=== PATIENT | male | born 1965 | race Caucasian/White ===

== ENCOUNTER 2024-05-25 09:52 | Emergency (ER) | payer BC, SELFPAY ==
[2024-05-25 09:54] VITALS: BP 99/67; PULSE 103; RESP 16; TEMP 36.8; O2SAT 98; BMI 36.4
--- NOTE | 2024-05-25 10:34 | RAD_ITS ---
STUDY: X-RAY - LEFT TIBIA AND FIBULA REASON FOR EXAM: Male, 58 years old. Pain TECHNIQUE: 4 view(s) of the tibia and fibula were obtained. COMPARISON: None. FINDINGS: Normal visualized tibia. Normal visualized fibula. Joint effusion The soft tissue structures are unremarkable. RAD/Tibia & Fibula 2 Views IMPRESSION: Joint effusion. Electronically Signed: Edu Mei MD at 11:55 EDT ,
--- NOTE | 2024-05-25 10:34 | RAD_ITS ---
STUDY: X-RAY - PELVIS AND LEFT HIP REASON FOR EXAM: Male, 58 years old. Left hip pain. TECHNIQUE: views of the pelvis and hip. COMPARISON: None. FINDINGS: There is a non-specific bowel gas pattern. Prostatic calcifications. There is narrowing with cortical sclerosis and osteophyte formation of the sacroiliac joint consistent with degenerative osteoarthritic changes. Normal bilateral superior and inferior pubic rami. Normal pubic symphysis. Normal bilateral ischial tuberosities. Normal visualized femoral head. There is osteoarthritic spur formation of the acetabular rim. There is moderate articular joint space narrowing of the hip. I suspect left femoral acetabular impingement. 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 Electronically Signed: dEu Mei MD at 12:00 EDT ,
--- NOTE | 2024-05-25 10:34 | EKG12_ITS ---
Test Reason : LOWER LEG PAIN Blood Pressure : / mmHG Vent. Rate : 099 BPM Atrial Rate : 099 BPM P-R Int : 220 ms QRS Dur : 088 ms QT Int : 348 ms P-R-T Axes : 081 -24 049 degrees QTc Int : 446 ms Sinus rhythm with 1st degree A-V block Possible Anterior infarct , age undetermined Abnormal ECG Confirmed by KAYLA FIGUEROA, JEREMY ([id number]), movie editor CORRINE KHALIL ([id number]) on 05/27/2024 10:22:59 AM Referred By: Confirmed By:DARREN GARZA MD
--- NOTE | 2024-05-25 10:48 | EX.ED.DYSGE1 ---
HPI History of Present Illness Chief Complaint: Lower Extremity Injury Narrative Narrative: Patient is a 58-year-old male with past medical history of type 2 diabetes, atrial fibrillation on Eliquis, hypertension, non-Hodgkin's lymphoma approximately 3 years ago, chronic kidney disease who presented to the emerged part with chief complaint of left knee pain. Patient states that he was originally in [place] admitted to the hospital for which she had a right great toe infection that was treated with IV antibiotics and underwent incision and drainage by podiatry up there. He was also complaining of left knee pain at that point in time he had fluid removed x 2 while in the hospital and cultures were sent no evidence of septic arthritis was noted based on discharge paperwork after my review. Patient states that he was supposed to get a steroid injection coming up in the near future into the left knee for pain control. He states that yesterday he went to work and noted that he came home he states that he did fall yesterday and noted that he had more pain in his left knee. He states that he tried to get up and ambulate out of his chair today states that his knee was extremely painful him therefore he called EMS to have him brought here for further evaluation management. Patient states that he did not hit his head did not pass out did not lose consciousness he remembers the entire event. [facility] Medical History History of kidney stones Kidney disease Diabetes Afib Non-Hodgkin lymphoma Allergy/AdvReac Type Severity Reaction Status Date / Time clarithromycin (From Biaxin) Allergy Severe Swelling Verified 05/25/24 10:51 Sulfa (Sulfonamide Allergy Intermediate Hives Verified 05/25/24 10:51 Antibiotics) monosodium glutamate (msg) AdvReac Intermediate Abd Verified 05/25/24 10:51 cramps/diarrhea clindamycin AdvReac Diarrhea Verified 05/25/24 10:51 Surgical History (Updated 05/25/24 @ 10:18 by Zuly Berry) Hx of nephrostomy History of tonsillectomy and adenoidectomy History of appendectomy Social History Smoking Status: Former smoker ROS ROS ED ROS Narrative Constitutional: Denies fevers, chills, headaches, lightheadedness, dizziness Eyes: Denies change in vision double vision blurry vision Cardiovascular: Denies chest pain or palpitations Respiratory: Denies cough or wheezing shortness of breath Abdomen: Denies abdominal pain nausea vomit diarrhea : Complains of painful urination, hematuria polyuria Neurological: Denies any new numbness weakness, tingling Musculoskeletal: Complains of left knee pain as noted above Skin: Denies rashes or lesions EXAM Physical Exam Narrative Exam Narrative: General: Patient was lying in bed rest comfortably did not appear to be in acute distress Head: Atraumatic, normocephalic Eyes: PERRL bilaterally, EOMI bilaterally, no conjunctival injection noted Neck: Soft, supple, trachea midline Cardiovascular: Regular rate and rhythm no murmurs gallops rubs noted Respiratory: Clear to auscultation bilaterally no rales rhonchi wheeze noted Abdomen: Soft, nondistended, no tenderness palpation, bowel sounds present x 4 Musculoskeletal: Patient has tenderness palpation over the left knee and pain with attempted range of motion. No overlying or surrounding erythema associated with this knee pain. Patient did have a Band-Aid on the lateral aspect of his left knee which was removed and no concern for active purulent drainage no surrounding erythema no concern for infection Extremities: Radial pulses +2/4 in the bilateral per extremities, no pedal edema neuroexam Neurological: Patient is following commands knew that he is at [facility] there is 2023 Skin: Warm, dry Const Vital Signs: 05/25/24 09:54 05/25/24 11:53 05/25/24 13:00 Temperature 98.2 F Temperature Source Oral Pulse Rate 103 H 102 H 84 Respiratory Rate 16 17 16 Blood Pressure 99/67 121/80 H 99/67 Blood Pressure Mean 77 93 77 Pulse Ox 98 97 98 Oxygen Delivery Method Room Air Room Air [facility] Narrative Medical decision making narrative: Patient is a 58-year-old male who presented to the emerged part with chief complaint of left knee pain. Patient will do workup performed here on the differential diagnosis includes going to osteoarthritis, distal femur fracture, proximal tibial plateau fracture, hip fracture. Once workup is obtained reviewed he will be reevaluated. Patient given IV fluids, morphine and Zofran. Patient's CBC reviewed and showed a white blood count of 11,000, hemoglobin was 11.6, platelet count normal at 185. Patient sodium noted be normal 132, potassium was 4.7, creatinine was elevated 2.53 do believe the patient does have underlying chronic kidney disease, urinalysis did not reveal any evidence of infection. Patient's x-ray of his knee reviewed and showed a moderate size joint effusion. Patient's tib/fibula showed normal visualized tibia. Normal visualized fibula no acute fractures. Patient's x-ray of his hip and pelvis showed moderate degree of osteoarthrosis of the left hip joint with findings suggestive of left femoral acetabular impingement syndrome. Patient's EKG reviewed shows sinus rhythm with a rate of 99 bpm Reevaluation of the patient and he is still having significant pain will be given another dose of morphine. On reevaluation of the patient patient was attempted to ambulate however he states that he has significant pain and cannot bend his knee nor can he get up and ambulate. At this point in time we do not have orthopedics here on-call today therefore we will look to transfer the patient to [facility] for inability ambulate, left knee pain and joint effusion while on Eliquis. Patient is anticoagulated therefore will not perform arthrocentesis here in the emergency department. Did discuss case with hospitalist Dr. Hassan who will accept patient to [facility] in [facility] for further evaluation management. Patient was notified and agreeable with this plan all question concerns answered he will be transferred in stable condition. Lab Data Labs: Laboratory Results - last 24 hr 05/25/24 10:55 WBC 11.6 H RBC 4.59 L Hgb 11.6 L Hct 37.0 L MCV 80.6 MCH 25.3 L MCHC 31.4 L RDW Std Deviation 43.7 RDW Coeff of Santosh 14.8 H Plt Count 185 MPV 11.0 Immature Gran % (Auto) 1.000 H Neut % (Auto) 79.8 H Lymph % (Auto) 11.7 L [place] % (Auto) 5.5 Eos % (Auto) 1.6 Baso % (Auto) 0.4 Absolute Neuts (auto) 9.2 H Absolute Lymphs (auto) 1.35 Nucleated RBC % 0 Sodium 132 L Potassium 4.7 Chloride 98 Carbon Dioxide 28.0 Anion Gap 6 BUN 68 H Creatinine 2.53 H Estim Creat Clear Calc 42.40 Est GFR (MDRD) Af Amer 34 L Est GFR (MDRD) Non-Af 28 L BUN/Creatinine Ratio 26.9 H Glucose 254 H Calcium 9.3 Urine Color Straw Urine Clarity Cloudy Urine pH 7.0 Ur Specific [place] 1.005 Urine Protein 30 H Urine Glucose (UA) 1000 H Urine Ketones Negative Urine Occult Blood 150 H Urine Nitrite Negative Urine Bilirubin Negative Urine Urobilinogen Normal Ur Leukocyte Esterase 500 H Urine RBC 0 SEEN Urine WBC >100 SEEN Ur Squamous Epith Cells 0 SEEN Urine Bacteria 0 SEEN Urine Mucus 0 SEEN Radiography Diagnostic Testing: Clinical Impression(s) from Imaging Studies Hip/Pelvis X-Ray 05/25/24 10:34 IMPRESSION: Moderate degree of osteoarthritis of the left hip joint with findings suggestive of a left femoral acetabular impingement. Electronically Signed: Edu Mei MD at 12:00 EDT , Tibia/Fibula X-Ray 05/25/24 10:34 IMPRESSION: Joint effusion. Electronically Signed: Edu Mei MD at 11:55 EDT , Knee X-Ray 05/25/24 11:26 IMPRESSION: Moderate-sized joint effusion. Electronically Signed: Edu Mei MD at 11:53 EDT , Discharge Plan Triage Chief Complaint: Lower Extremity Injury ED Provider: Van Thompson Dx/Rx/DC Orders Clinical Impression: Acute pain of left knee, Joint effusion of knee, Intractable pain Primary Care Provider: Miriam Jones Referrals: Miriam Jones DO [Primary Care Provider] - Print Language: French Disposition Disposition: DC/Tx to Another Type of HCF
[2024-05-25] MEDS: 0.9% Normal Saline (1000mL) 1,000 ML 999 ML IV (10:51)
[2024-05-25] MEDS: Ondansetron 4 MG/2 ML Vial IV (10:52)
[2024-05-25] MEDS: Morphine 4 MG/ML Syringe IV (10:53)
--- NOTE | 2024-05-25 10:53 | NURSING ---
NO OLD EKGS
[2024-05-25 11:12] LABS: Bacteria 0 SEEN /hpf (None Seen); Mucous, Urine 0 SEEN /hpf (<or=2+); Red Blood Cells-Urine 0 SEEN /hpf (0-5); Squamous Epithelial Cells - UA 0 SEEN /hpf (0-5)
[2024-05-25 11:13] LABS: Absolute Lymphocyte Count 1.35 X10^3/uL (0.83-4.51); Absolute Neutrophil Count 9.2 X10^3/uL (2.0-7.7); Basophil# 0.05 X10^3/uL; Basophil% 0.4 % (0-1); Eosinophil# 0.19 X10^3/uL; Eosinophils% 1.6 % (0-5); Hemoglobin 11.6 g/dL (13.0-16.5); Lymphocyte # 1.35 X10^3/ul (0.83-4.51); Lymphocyte % 11.7 % (19-41); Mean Corp Hgb Conc 31.4 g/dL (32-36); Mean Corpuscular Hgb 25.3 pg (27.0-32.0); Mean Corpuscular Volume 80.6 fL (80-94); Monocyte# 0.64 X10^3/uL; Monocyte% 5.5 % (0-10); NRBC Flagged by Analyzer 0 % (0-5); Neutrophil # 9.23 X10^3/uL (2.7-7.7); Neutrophil % 79.8 % (47-70); Platelet Count 185 K/mm3 (150-450); RBC Distribution Width CV 14.8 % (11.6-14.6); RBC Distribution Width SD 43.7 fl (35.1-43.9); Red Blood Count 4.59 M/mm3 (4.6-6.2); White Blood Count 11.6 K/mm3 (4.4-11.0)
[2024-05-25 11:15] LABS: Color, Urine Straw (Yellow); Glucose, Dipstick 1000 mg/dl (Normal); Ketone-Dipstick Negative (Negative); Leukocyte Esterase-Dipstick 500 /ul (Negative); Nitrite-Dipstick Negative (Negative); Occult Blood-Urine 150 /ul (Negative); Protein-Dipstick 30 mg/dl (Negative); Specific Gravity, Urine 1.005 (1.002-1.030); Urine Bilirubin Dipstick Negative (Negative); Urine Clarity Cloudy (Clear); Urine Urobilinogen Normal (Normal)
[2024-05-25 11:22] LABS: White Blood Cells >100 SEEN /hpf (0-5)
--- NOTE | 2024-05-25 11:26 | RAD_ITS ---
STUDY: X-RAY - LEFT KNEE REASON FOR EXAM: Male, 58 years old. Left lower extremity pain. No known injury. TECHNIQUE: 4 view(s) of the knee. COMPARISON: None. FINDINGS: Normal visualized distal femur. Normal visualized proximal tibia and fibula. Normal proximal tibiofibular articulation. Normal medial femorotibial compartment. Normal lateral femorotibial compartment. Normal patellofemoral articulation. Moderate size joint effusion. RAD/Knee 3 Views IMPRESSION: Moderate-sized joint effusion. Electronically Signed: Edu Mei MD at 11:53 EDT ,
[2024-05-25 11:34] LABS: Anion Gap 6 (5-15); BUN 68 mg/dL (7-18); BUN/Creat Ratio 26.9 RATIO (10-20); Calcium,Total 9.3 mg/dL (8.5-10.1); Chloride 98 mmol/L (98-107); Creatinine, Serum 2.53 mg/dL (0.70-1.30); EST Glomerular Filtration Rate 28 mL/min (>60); Est Glom Filt Rate - Afr Amer 34 mL/min (>60); Glucose 254 mg/dL (74-106); Potassium 4.7 mmol/L (3.5-5.1); Sodium Level 132 mmol/L (136-145)
[2024-05-25 11:53] VITALS: BP 121/80; PULSE 102; RESP 17; O2SAT 97
[2024-05-25 13:00] VITALS: BP 99/67; PULSE 84; RESP 16; O2SAT 98
--- NOTE | 2024-05-25 13:39 | NURSING ---
ACCEPTED AT [facility]
--- NOTE | 2024-05-25 13:52 | NURSING ---
[facility] 4S ROOM 408 BED 1 NURSE TO NURSE [id number]
[2024-05-25 14:31] VITALS: BP 92/67; PULSE 88; RESP 16; TEMP 36.8; O2SAT 98
--- NOTE | 2024-05-25 14:47 | NURSING ---
ETA 4 MIN
== END 2024-05-25 15:11 | disposition other institution (70) ==
PROVIDERS: Emergency Provider Emergency Medicine; PCP Family Medicine; Visit Provider Emergency Medicine
DX: M25.562 Pain in left knee (principal); E11.22 Type 2 diabetes mellitus with diabetic chronic kidney disease; N18.9 Chronic kidney disease, unspecified; M25.462 Effusion, left knee; Z87.891 Personal history of nicotine dependence
CPT/HCPCS: 36591; 73502; 73562; 73590; 80048; 81001; 85025; 93005; 96361; 96374; 96375; 96376; 99283; J7030; A4216; J2405

== ENCOUNTER 2025-06-02 14:12 | Emergency (ER) | payer BC, SELFPAY ==
[2025-06-02 14:13] VITALS: BP 102/77; PULSE 88; RESP 18; TEMP 36.8; O2SAT 99
--- NOTE | 2025-06-02 14:50 | EKG12_ITS ---
Test Reason : CP Blood Pressure : */* mmHG Vent. Rate : 86 BPM Atrial Rate : 86 BPM P-R Int : 200 ms QRS Dur : 84 ms QT Int : 360 ms P-R-T Axes : 57 -23 62 degrees QTcB Int : 430 ms Normal sinus rhythm Normal ECG Confirmed by FRANCISCO J FIGUEROA, BILL ([id number]), video editor CORRINE KHALIL ([id number]) on 06/05/2025 1:05:19 PM Referred By: KASSI/ADONIS Confirmed By: BILL MARX MD
[2025-06-02 15:03] VITALS: BP 101/65; PULSE 86; RESP 17; O2SAT 99; BMI 31.6
[2025-06-02] MEDS: 0.9% Normal Saline (1000mL) 1,000 ML 999 ML IV (15:03)
[2025-06-02 15:04] LABS: Hematocrit 38.3 % (40-54); Hemoglobin 12.6 g/dL (13.0-16.5); Immature Granulocytes Count 0.030 X10^3/uL (0.0-0.0); Mean Corp Hgb Conc 32.9 g/dL (32-36); Mean Corpuscular Volume 81.0 fL (80-94); NRBC Flagged by Analyzer 0 % (0-5); POSITIVE COUNT YES; RBC Distribution Width CV 13.3 % (11.6-14.6); RBC Distribution Width SD 38.8 fl (35.1-43.9); Red Blood Count 4.73 M/mm3 (4.6-6.2); White Blood Count 4.8 K/mm3 (4.4-11.0)
--- NOTE | 2025-06-02 15:17 | RAD_ITS ---
PROCEDURE: CHEST 1 VIEW (PORTABLE) 06/02/2025 REASON FOR EXAM: CHEST PAIN and weakness. TECHNIQUE: Frontal view of the chest. COMPARISON: None. FINDINGS: LINES: Right chest port tip terminating in the distal SVC. LUNGS AND PLEURA: No focal airspace consolidation. Minimal linear basilar atelectasis/scarring bilaterally. No pleural effusion or pneumothorax. HEART AND MEDIASTINUM: The heart size and mediastinal contours are normal. BONES: No acute osseous abnormality. RAD/Chest 1 View (Portable) IMPRESSION: No Acute Findings. Reading Location: [id number]
[2025-06-02 15:21] LABS: Differential Indicated SCAN CRITERIA MET
[2025-06-02 15:27] LABS: Anion Gap 12 (5-15); BUN 44 mg/dL (4-19); BUN/Creat Ratio 28.1 RATIO (10-20); Calcium,Total 9.0 mg/dL (7.6-11.0); Carbon Dioxide 21.3 mmol/L (21.0-32.0); Chloride 99 mmol/L (98-108); Estimated Creatinine Clearance 63.33 ml/min (50-250); Glucose 377 mg/dL (70-99); Potassium 4.1 mmol/L (3.3-5.1); Troponin T High Sensitivity 36 ng/L (<=22)
[2025-06-02 16:00] VITALS: BP 99/69; PULSE 81; RESP 15; O2SAT 97
[2025-06-02 16:12] LABS: Platelet Count 87 K/mm3 (150-450)
[2025-06-02 16:13] LABS: Differential Comment SCANNED; Mean Platelet Vol. 11.0 fl (6.2-12.0)
[2025-06-02 16:55] LABS: Troponin T High Sens 2 HR 36 ng/L (<=22)
[2025-06-02 17:00] VITALS: BP 108/69; PULSE 82; RESP 14; O2SAT 98
--- NOTE | 2025-06-02 17:07 | EDS_ITS ---
HPI History of Present Illness Chief Complaint: Chest Pain Informant: patient Onset/Context/Timing Onset: Today Activity at onset: gradual Timing: Continuous Quality: Positive for Dull Location: Substernal Current Severity: Mild Maximum Severity: Mild Worsened By: Nothing Relieved By: Nothing Associated Symptoms: Positive for - (Diarrhea.); Negative for Nausea, Vomiting, Diaphoresis, Dyspnea, Cough, Fever, Lightheadedness, Acid Reflux or Palpitations Narrative Narrative: 59-year-old male history of diabetes, A-fib, prior non-Hodgkin's lymphoma with a right-sided Mediport. He is finished with his chemotherapy. He is on Eliquis due to his A-fib. Patient states he just has been feeling that good he has been having diarrhea. He has had elevated blood sugars and today noticed some chest discomfort not associated with exertion. Denies any melena. No fever. No vomiting. Prior Similar Symptoms: No Recent Illness/Hospitalization: No CVD Risk Factors: Positive for Diabetes PE Risk Factors: Negative for Recent Travel/Surgery, Recent Immobilization, Prior DVT or PE, Cancer or OCP + Smoking + >/=35 TAD Risk Factors: Negative for Marfan's Syndrome PFSH PFS Medical History History of kidney stones Kidney disease Diabetes Afib Non-Hodgkin lymphoma Allergy/AdvReac Type Severity Reaction Status Date / Time clarithromycin (From Biaxin) Allergy Severe Swelling Verified 06/02/25 14:15 Sulfa (Sulfonamide Allergy Intermediate Hives Verified 06/02/25 14:15 Antibiotics) monosodium glutamate (msg) AdvReac Intermediate Abd Verified 06/02/25 14:15 cramps/diarrhea clindamycin AdvReac Diarrhea Verified 06/02/25 14:15 Surgical History Hx of nephrostomy History of tonsillectomy and adenoidectomy History of appendectomy Social History Smoking Status: Former smoker ROS ROS ED ROS Narrative Diarrhea. Nonexertional chest pain. Constitutional Constitutional ED: Denies chills or fever(s) Eyes Eyes: Reports none ENT ENT ED: Denies ear pain Cardiovascular Cardiovascular: Reports chest pain Respiratory/Chest Respiratory/Chest: Denies cough or dyspnea Gastrointestinal Gastrointestinal: Reports diarrhea; Denies abdominal pain, melena, nausea or vomiting Genitourinary Genitourinary ED: Denies dysuria or hematuria Musculoskeletal Musculoskeletal: Denies arthralgias or back pain Integumentary Denies abscess or Abrasions Neurologic Neurologic: Denies headache(s) Psychiatric Psychiatric: Denies anxiety Endocrine Endocrinology: Denies cold intolerance Hematologic/Lymphatic Hematologic/Lymphatic: Denies easy bleeding, easy bruising or lymphadenopathy Allergic/Immunologic Allergic/Immunologic ED: Denies mouth swelling, tongue swelling or urticaria EXAM Physical Exam Narrative Exam Narrative: 59-year-old male sitting upright in bed. No acute distress. Vital signs are s table afebrile. Pulse ox 99% on room air no signs hypoxia. H EENT exam pupils round react light. Moist mucous membranes. Neck nontender no JVD. No lymphadenopathy. Lungs clear to auscultation bilaterally. Heart regular rhythm rate in the mid 80s no murmur. Chest wall and ribs nontender. Abdomen soft nontender. No peritoneal signs. Moving all 4 extremities. Calves are nontender without edema or cords. Normal dorsi plantarflexion. 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 Back nontender. Neurologically patient is awake alert. Answer questions following commands. Const Vital Signs: 06/02/25 14:13 06/02/25 15:03 06/02/25 15:04 Temperature 98.2 F Temperature Source Oral Pulse Rate 88 86 Respiratory Rate 18 17 Respiratory Effort Normal Non-Labored Blood Pressure 102/77 101/65 Blood Pressure Mean 85 77 Pulse Ox 99 99 Oxygen Delivery Method Room Air Room Air 06/02/25 16:00 Temperature Temperature Source Pulse Rate 81 Respiratory Rate 15 Respiratory Effort Blood Pressure 99/69 Blood Pressure Mean 79 Pulse Ox 97 Oxygen Delivery Method Room Air Positive well nourished and well developed; Negative for cachectic, contractures or unkempt General Appearance ED: well developed and NAD; Negative for unkempt, cachectic, contractures or pallor Nutritional Appearance: Negative for cachectic HEENT Reports moist mucous membranes normocephalic and atraumatic Eyes PERRL and EOMs intact bilaterally Neck no lymphadenopathy, supple and no JVD Chest Wall inspection of chest normal and palpation of chest normal Resp normal respiratory effort and clear to auscultation bilaterally Cardio regular rate, regular rhythm, S1 normal heart sound, S2 normal heart sound and no murmurs Peripheral Pulses: pulses 2+ throughout GI normal to inspection, nondistended, normoactive bowel sounds, soft to palpation, non-tender, non-distended and no masses Back/Spine no CVA tenderness and no thoracic nor lumbar tenderness Extremity normal to inspection General Extremety ED: Negative for edema, pulses abnormal or tenderness General Extremity: Negative for edema or pulses abnormal Neuro oriented x3 and CN's II-XII intact bilaterally Sensorium / Orientation: awake, alert, oriented to person, oriented to place and oriented to time; Negative for confused, lethargic or stuporous Motor Exam: strength 5/5 throughout Psych mental status grossly normal Appearance: Negative for unkempt Skin no rashes or lesions noted and no wounds General Skin Exam: Negative for jaundice or pallor Rashes: No rashes noted Trauma: Negative for abrasion or laceration Heart Score History: Slightly/Non-Suspicious ECG: Normal Age: >45 - <65 years Risk Factors: 1 or 2 Risk Factors Troponin: </= Normal Limit Score: 2 MDM MDM MDM Narrative Medical decision making narrative: 59-year-old diabetic male history of A-fib and on Eliquis. With atypical chest pain and recent diarrhea. Exam is benign. I do not have a high suspicion. Cardiac. Undergoing cardiac workup. Repeat exam patient is doing well at 5:20 PM. I went over all test results of both he and his family. He and they are comfortable with him being discharged home. Outpatient follow-up with his primary care physician Dr. Schwartz. He will continue his current meds. I will write him off work this weekend. Knows to return if he is feeling worse. History & Record Review Discussion w/independent historian: Patient and Family Additional record(s) reviewed:: Prior inpatient record, Prior outpatient record, Prior ED visit and Prior labs Lab Data Attestation: I reviewed the patient's lab results. Lab results narrative: CBC shows a white count of 4. H&H 12.6 and 38. Platelets are low at 87. Electrolytes show sodium 132. Gap 12. BUN/creatinine of 44 and 1.56. Glucose 377. Initial troponin 36. 2-hour troponin 36. Labs: Laboratory Results - last 24 hr 06/02/25 06/02/25 14:18 16:30 WBC 4.8 RBC 4.73 Hgb 12.6 L Hct 38.3 L MCV 81.0 MCH 26.6 L MCHC 32.9 RDW Std Deviation 38.8 RDW Coeff of Santosh 13.3 Plt Count 87 L MPV 11.0 Immature Gran % (Auto) 0.600 Neut % (Auto) 67.9 Lymph % (Auto) 16.8 L [place] % (Auto) 9.9 Eos % (Auto) 4.2 Baso % (Auto) 0.6 Absolute Neuts (auto) 3.2 Absolute Lymphs (auto) 0.80 L Nucleated RBC % 0 Differential Comment SCANNED Sodium 132 L Potassium 4.1 Chloride 99 Carbon Dioxide 21.3 Anion Gap 12 BUN 44 H Creatinine 1.56 H Estim Creat Clear Calc 63.33 Est GFR (MDRD) Non-Af 51 L BUN/Creatinine Ratio 28.1 H Glucose 377 H Calcium 9.0 Troponin T High Sens 36 H Troponin T Hi Sens 2 Hr 36 H Radiography Chest X-Ray - ED: Read by ED Physician, Read by Radiologist, Normal, Heart, Lungs, Mediastinum, Bony Structures, No Acute Disease and Chronic Changes Diagnostic Testing: Clinical Impression(s) from Imaging Studies Chest X-Ray 06/02/25 15:17 IMPRESSION: No Acute Findings. Reading Location: [facility] Chest x-ray portable, single view, interpreted both by myself and the radiologist shows normal cardiac silhouette. Normal lung patiño. Chronic changes. Right-sided Mediport. No significant acute process. Rhythm Strip Rhythm Strip: Sinus Rhythm Rate: 86 Ectopy: None EKG Initial EKG: Attestation: I personally reviewed and interpreted this EKG as follows: Interpretation: Sinus Rhythm and No Acute Injury Pattern Comments: Normal sinus rhythm rate 86 no acute signs of [place] or ischemia. Discharge Plan Triage Chief Complaint: Chest Pain ED Provider: Len Aquino Dx/Rx/DC Orders Clinical Impression: Atypical chest pain, Hyperglycemia due to diabetes mellitus, Diarrhea, History of atrial fibrillation, Chronic anticoagulation Instructions: ED Chest Pain, Uncertain Cause, ED Diabetic Hyperglycemia Primary Care Provider: Miriam Jones Referrals: Miriam Jones, [Primary Care Provider] - As soon as possible (Call our office on Thursday get an appointment next week.) Activity Restrictions/Additional Instructions: Watch your blood sugars closely. Take your medications as prescribed. Call and follow-up your primary care physician on Thursday. Return if feeling worse. Off work today through Thursday inclusive. Print Language: [place] Disposition Disposition: Home, Self Care
[2025-06-02 17:43] VITALS: BP 108/67; PULSE 78; RESP 16; TEMP 36.9; O2SAT 99
== END 2025-06-02 17:44 | disposition home or self-care (01) ==
PROVIDERS: Emergency Provider Emergency Medicine; PCP Family Medicine; Visit Provider Emergency Medicine
DX: R07.89 Other chest pain (principal); I48.91 Unspecified atrial fibrillation; E11.65 Type 2 diabetes mellitus with hyperglycemia; Z95.828 Presence of other vascular implants and grafts; Z79.01 Long term (current) use of anticoagulants; Z87.891 Personal history of nicotine dependence; R19.7 Diarrhea, unspecified
CPT/HCPCS: 36591; 71045; 80048; 84484; 85025; 93005; 96360; 99283; A4216

== ENCOUNTER 2025-06-04 15:07 | Emergency (ER) | payer BC, SELFPAY ==
[2025-06-04 15:07] VITALS: BP 87/70; PULSE 96; RESP 18; TEMP 37.2; O2SAT 100; BMI 36.8
[2025-06-04 15:10] VITALS: BP 110/75; PULSE 84; RESP 18; TEMP 36.6; O2SAT 100
--- NOTE | 2025-06-04 15:25 | EX.ED.DYSGE1 ---
HPI History of Present Illness Chief Complaint: Complaint Informant: patient Onset/Context/Timing Onset: Today Context: Sudden Onset Timing: Continuous Quality: Red blood Location: Urine Worsened by: Nothing Relieved by: Nothing Narrative Narrative: Patient presents with hematuria that began this morning. Patient states that he has had episodes of hematuria in the past. Patient states that usually clears up throughout the day. Patient states this has been persistent throughout the day. Patient admits to some dysuria as well. Patient denies any fevers or chills. Patient admits to some pain in his neck but denies any back pain or flank pain. Patient denies any nausea or vomiting. Patient states his blood sugars have been fluctuating over the past several days. [facility] Medical History (Updated 06/04/25 @ 18:[address] All White DO) History of kidney stones Kidney disease Diabetes Afib Non-Hodgkin lymphoma Allergy/AdvReac Type Severity Reaction Status Date / Time clarithromycin (From Biaxin) Allergy Severe Swelling Verified 06/04/25 15:10 Sulfa (Sulfonamide Allergy Intermediate Hives Verified 06/04/25 15:10 Antibiotics) monosodium glutamate (msg) AdvReac Intermediate Abd Verified 06/04/25 15:10 cramps/diarrhea clindamycin AdvReac Diarrhea Verified 06/04/25 15:10 Surgical History (Updated 06/04/25 @ 16:[address] All White DO) Hx of knee surgery History of amputation of toe Hx of sinus surgery History of carpal tunnel surgery Hx of nephrostomy History of tonsillectomy and adenoidectomy History of appendectomy Social History Smoking Status: Former smoker ROS ROS ED Constitutional Constitutional ED: Denies chills or fever(s) Eyes Eyes: Denies blurry vision or change in vision ENT ENT ED: Denies rhinorrhea or sore throat Cardiovascular Cardiovascular: Denies chest pain or palpitations Respiratory/Chest Respiratory/Chest: Denies cough or dyspnea Gastrointestinal Gastrointestinal: Denies nausea or vomiting Genitourinary Genitourinary ED: Reports dysuria and hematuria Musculoskeletal Musculoskeletal: Reports neck pain; Denies back pain Integumentary Denies abscess or rash Neurologic Neurologic: Reports headache(s) and weakness Allergic/Immunologic Allergic/Immunologic ED: Denies mouth swelling or urticaria EXAM Physical Exam Const Vital Signs: 06/04/25 15:07 06/04/25 15:10 06/04/25 16:10 Temperature 98.9 F 98 F 98 F Temperature Source Oral Oral Oral Pulse Rate 96 84 83 Respiratory Rate 18 18 18 Blood Pressure 87/70 L 110/75 107/73 Blood Pressure Mean 75 86 84 Pulse Ox 100 100 99 Oxygen Delivery Method Room Air Room Air Room Air 06/04/25 17:00 Temperature 98 F Temperature Source Oral Pulse Rate 80 Respiratory Rate 15 Blood Pressure 110/78 Blood Pressure Mean 88 Pulse Ox 97 Oxygen Delivery Method Room Air Positive well nourished and well developed General Appearance ED: well developed and NAD HEENT Reports moist mucous membranes Neck supple and no JVD Resp normal respiratory effort and clear to auscultation bilaterally Cardio regular rate and regular rhythm GI non-distended Palpation: soft and tender suprapubic; Negative for guarding or rebound tenderness present Neuro oriented x3, CN's II-XII intact bilaterally and no sensory deficits noted Sensorium / Orientation: alert Motor Exam: strength 5/5 throughout Psych mental status grossly normal MDM MDM MDM Narrative Medical decision making narrative: Differential diagnosis includes hemorrhagic cystitis, coagulopathy, ureteral calculus, bladder mass, renal mass, anemia, and electrolyte abnormality. CBC will be obtained to assess for anemia and leukocytosis. Basic metabolic profile will be obtained to assess for electrolyte abnormality and renal function. PT with INR and PTT will be obtained to assess for coagulopathy. Urinalysis will be obtained to assess for urinary tract infection. CT scan of the abdomen and pelvis will be obtained to assess for ureteral calculus, bladder mass, and renal mass. History & Record Review Additional record(s) reviewed:: Prior ED visit and Prior labs Lab Data Attestation: I reviewed the patient's lab results. Lab results narrative: CBC was reviewed. There is a slight anemia with a hemoglobin 12.2 and hematocrit of 36.9. Platelets were low at 88. These are consistent previous results. PT with INR and PTT were reviewed and were within. Basic metabolic profile was reviewed. BUN was 49 and creatinine was 1.67. These are consistent with previous results. Glucose was mildly elevated at 289. Urinalysis was reviewed. There was turbid red urine. Occult blood was 250 and leukocyte esterase was 500. There are greater than 100 red blood cells and 25-50 white blood cells. Labs: Laboratory Results - last 24 hr 06/04/25 16:18 WBC 5.2 RBC 4.59 L Hgb 12.2 L Hct 36.9 L MCV 80.4 MCH 26.6 L MCHC 33.1 RDW Std Deviation 39.1 RDW Coeff of Santosh 13.5 Plt Count 88 L MPV 11.4 Immature Gran % (Auto) 0.400 Neut % (Auto) 60.0 Lymph % (Auto) 24.4 Richardson % (Auto) 9.8 Eos % (Auto) 5.0 Baso % (Auto) 0.4 Absolute Neuts (auto) 3.1 Absolute Lymphs (auto) 1.27 Nucleated RBC % 0 PT 14.2 INR 1.1 APTT 31.1 Sodium 136 Potassium 4.2 Chloride 103 Carbon Dioxide 21.0 Anion Gap 12 BUN 49 H Creatinine 1.67 H Estim Creat Clear Calc 63.81 Est GFR (MDRD) Non-Af 47 L BUN/Creatinine Ratio 29.2 H Glucose 289 H Calcium 8.9 Urine Color Red Urine Clarity Turbid Urine pH 5.0 Ur Specific [place] 1.015 Urine Protein 500 H Urine Glucose (UA) 250 H Urine Ketones Negative Urine Occult Blood 250 H Urine Nitrite Negative Urine Bilirubin Negative Urine Urobilinogen Normal Ur Leukocyte Esterase 500 H Urine RBC > 100 SEEN Urine WBC 25-50 SEEN Ur Squamous Epith Cells 0 SEEN Urine Bacteria 0 SEEN Urine Mucus 0 SEEN Radiography Diagnostic Testing: Clinical Impression(s) from Imaging Studies Abdomen/Pelvis CT 06/04/25 16:06 IMPRESSION: 1. Asymmetric enhancement with moderate left hydroureteronephrosis, which is indeterminate and may represent infectious etiology or urothelial neoplasm. Correlation with urinalysis recommended. Noncontrast and delayed phase imaging may be useful for further evaluation if neoplasm is considered likely. 2. Mild hepatomegaly and diffuse hepatic steatosis. Reading Location: [id number] scan of the abdomen and pelvis was obtained. There is asymmetric enhancement with moderate left hydronephrosis and hydroureter. This may represent infectious etiology or urothelial neoplasm. This was interpreted by the radiologist and was also independently reviewed by myself. Additional Tests and Interventions Additional Tests or Interventions: Urine culture was ordered. Treatment and Re-Evaluation :: Patient was given IV fluids. Patient was advised of his findings. Patient was given a dose of Cipro here. Patient was given a prescription for Cipro. Patient was instructed to drink fluids. Patient instructed to follow-up with his urologist in 3 to 5 days. Patient instructed to return if worse in any way. Patient understood and was agreeable with the plan. All questions were answered. Discharge Plan Triage Chief Complaint: Complaint ED Provider: All White Dx/Rx/DC Orders Clinical Impression: Acute hemorrhagic cystitis, Hyperglycemia due to diabetes mellitus Instructions: ED Bladder Infection, Male (Adult) Primary Care Provider: Miriam Jones Referrals: Miriam Jones DO [Primary Care Provider] - 3-5 Days Print Language: [place]ian Disposition Disposition: Home, Self Care
--- OUTSIDE RECORDS SUMMARY | 2025-06-04 15:41 | XMS RPT_ITS | CCD ---
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 Name Role Phone Najma Bloom DO Primary Care Provider Osiris Vega Unavailable Martell Waterman MD Unavailable Heather FIGUEROA MD, Cristhian Salomon Unavailable Eber Antony MD Unavailable AndiAmee david (Fel) Unavailable Omid Prabhakar MD Unavailable Amirt Del Valle MD Unavailable Wilber Maxwell MD Unavailable Yamilka Mosley MD Unavailable Najma Bloom DO Primary Care Provider Osiris Vega Unavailable Martell Waterman MD Unavailable Heather FIGUEROA MD, Matthew C Unavailable Eber Antony MD Unavailable Amee Escamilla (Fel) Unavailable Omid Prabhakar MD Unavailable Amrit Del Valle MD Unavailable Wilber Maxwell MD Unavailable Yamilka Mosley MD Unavailable Asim JUAN, Ernesto Unavailable Unavailable Asim JUAN, Ernesto Unavailable Unavailable Epi Polanco MD Unavailable Epi Polanco MD Unavailable Aki FIGUEROA, Omid Fraser Unavailable NAJMA BLOOM Primary Care [place] GLORIA Sigala Attending U navailable Sheets DO Najma C Primary Care Provider [phone] Osiris Cartwright RN Unavailable Unavailable Jigna Griffiths RPh Unavailable Unavail able Osiris Cartwright RN Unavailable Unavailable XOCHITL VIDES Referring Unavaila ALESHA Waggoner Consulting Unavailable LEO LEA Attending Unavailable SHEETS, NAJMA C Primary Care Unavailable PEYMAN CLIFFORD Admitting Unavailable Sheets, Najma Primary Care Unavailable Van Thompson Attending Unavailable Sheets DO Najma C Unavailable Solomon WAREHOUSE UNLOADER.JU, Herminio Unavailable [phone] Monie Perez RN Unavailable Osiris Cartwright RN Unavailable Osiris Cartwright RN Unavailable VARGAS BENTON Attending Unavailab le SHEETS, NAJMA C Primary Care Unavailable JENNIFER MICHELE Attending Unavailab le JENNIFER MICHELE Admitting Unavailab le SHEETS, NAJMA C Primary Care Unavailable AMRIT DEL VALLE Consulting Unavailable YAMILKA LIU Admitting Unavailable SHEETS, NAJMA C Primary Care Unavailable BIJAN AVERY Attending Unavailabl e SHEETS, NAJMA C Primary Care Unavailable OSIRIS PARIS Attending Unavailable SHEETS, NAJMA C Primary Care Unavailable CHERELLE CAMPOS Referring Unavailable JENNIFER MICHELE Attending Unavailab le SHEETS, NAJMA C Primary Care Unavailable SHEETS, NAJMA C Primary Care Unavailable JENNIFER MICHELE Attending Unavailab le SHEETS, NAJMA C Primary Care Unavailable JENNIFER MICHELE Referring Unavailab le SHEETS, NAJMA C Primary Care Unavailable AIDE MOSES Attending Unavailable VARGAS BENTON Attending Unavailab le SHEETS, NAJMA C Primary Care Unavailable SHEETS, NAJMA C Primary Care Unavailable JENNIFER MICHELE Attending Unavailab le ALI, MARTELL EMERSON Referring Unavailable SHEETS, NAJMA C Primary Care Unavailable ALI, MARTELL EMERSON Referring Unavailable SHEETS, NAJMA C Primary Care Unavailable ALI, MARTELL EMERSON Referring Unavailable SHEETS, NAJMA C Primary Care Unavailable ALI, MARTELL EMERSON Attending Unavailable SHEETS, NAJMA C Primary Care Unavailable SHEETS, NAJMA C Primary Care Unavailable ALI, MARTELL EMERSON Referring Unavailable SHEETS, NAJMA C Primary Care Unavailable Sheets DO, Dr. Pineda Primary Care Provider Dr. Len Aquino MD Emergency Provider SHEETS, NAJMA C Attending Unavailable SHEETS, NAJMA C Primary Care Unavailable SHEETS, NAJMA C Attending Unavailable SHEETS, NAJMA C Referring Unavailable SHEETS, NAJMA C Primary Care Unavailable SHEETS, NAJMA C Primary Care Unavailable HAZZI, RAMI Admitting Unavailable THUESTADRAMANA A Attending Unavailable SHEETS, NAJMA C Attending Unavailable SHEETS, NAJMA C Primary Care Unavailable SHEETS, NAJMA C Primary Care Unavailable SHEETS, NAJMA C Attending Unavailable SHEETS, NAJMA C Referring Unavailable SHEETS, NAJMA C Primary Care Unavailable SHEETS, NAJMA C Attending Unavailable SHEETS, NAJMA C Referring Unavailable SELF Referring Unavailable SHEETS, NAJMA C Primary Care Unavailable SHEETS, NAJMA C Attending Unavailable Allergies Allergy Classification Reported Allergen(s) Allergy Type Date of Onset Reaction(s) Facility Aspartame (1 source) Aspartame Drug Allergy 06-05-20 20 Intolerance [facility] Lincosamides (antibiotic) (1 source) Clindamycin Drug Allergy 07-18-20 16 Diarrhea, GI Upset, Vomiting [facility] Macrolides (antibiotic) (1 source) Clarithromycin Drug Allergy 07-18-20 16 Unknown [facility] Proton Pump Inhibitors (1 source) pantoprazole Drug Allergy 02-02-20 21 Diarrhea [facility] Sulfamethoxazole / Trimethoprim (1 source) Sulfamethoxazole / Trimethoprim Drug Allergy 07-18-20 16 Hives, Intolerance [facility] Sulfonamides (antibiotic) (1 source) Sulfonamides (Antibiotic) Drug Allergy 07-18-20 16 Rash, Hives [facility] (20 sources) Aspartame; Translations: [ASPARTAME] Drug Allergy 06-05-20 20 Other: See Comments, Intolerance [facility] (20 sources) Clarithromycin; Translations: [CLARITHROMYCIN] Drug Allergy 07-18-20 16 Unknown [facility] (20 sources) Clindamycin; Translations: [CLINDAMYCIN HCL] Drug Allergy 07-18-20 16 Diarrhea, GI Upset, Vomiting [facility] (20 sources) pantoprazole; Translations: [PANTOPRAZOLE] Drug Allergy 02-02-20 21 Diarrhea [facility] (20 sources) Sulfamethoxazole / Trimethoprim; Translations: [SULFAMETHOXAZOLE-T RIMETHOPRIM] Drug Allergy 07-18-20 16 Hives, Other: See Comments, Intolerance [facility] (20 sources) Sulfonamides (Antibiotic); Translations: [SULFA (SULFONAMIDE ANTIBIOTICS)] Drug Allergy 07-18-20 16 Rash, Hives [facility] (20 sources) Influenza Vaccine Tri-Sp 09-10; Translations: [INFLUENZA VACCINE TRI-SP 07-05] Propensity to adverse reactions to drug 10-29-19 19 Unknown [facility] (20 sources) Monosodium Glutamate (Msg); Translations: [MONOSODIUM GLUTAMATE (MSG)] Food Intolerance 06-05-20 Other: See Comments, Intolerance [facility] (3 sources) Clindamycin; Translations: [CLINDAMYCIN] Drug Allergy 12-30-19 24 Diarrhea [facility] (1 source) Clarithromycin Drug Allergy 05-25-20 [facility] (1 source) Sulfonamides (Antibiotic) Drug allergy (disorder) 05-25-20 [facility] (4 sources) monosodium glutamate; Translations: [MONOSODIUM GLUTAMATE] Drug allergy (disorder) 05-25-20 [facility] (20 sources) Glutamate Drug Allergy 05-25-20 [facility] (1 source) Sulfonamides (Antibiotic) Allergy to substance 06-02-20 [facility] Medications Current Medications Medication Drug Class(es) Dates Sig (Normalized) Sig (Original) acetaminophen 325 mg oral tablet (20 sources) Start: 05-19-2024 End: 08-17-2024 take 2 tablets by mouth every six hours as needed acetaminophen (TYLENOL) 325 mg tablet Take 2 tablets by mouth every 6 hours as needed for pain. 90 tablet 05/19/2024 08/17/2024 Active take 1000 mg by mout h three times daily acetaminophen (TYLENOL EXTRA STRENGTH OR AL) Take 1,000 mg by mouth three times daily. 0 Suspended Comment on above: Take 1,000 mg by sheila three times daily. acetaminophen 325 mg / oxyCODONE hydrochloride 5 mg oral tablet (7 sources) Opioid Agonist Start: End: take 1 tablet by mouth every six hours as needed for pain oxyCODONE-acetaminophe n (PERCOCET) 5-325 mg tablet Indications: Postoperative pain Take 1 tablet by mouth every 6 hours as needed for pain for up to 5 days. 10 tablet 07/26/2024 07/31/2024 Active Start: 06-06-2024 End: 06-13-2024 take 1 tablet by mouth every eight hours as needed for pain oxyCODONE-acetaminophen (PERCOCET) 5-325 mg tablet Indications: Osteomyelitis of right foot (HCC) , Acute pain of left knee , Acute medial meniscus tear of left knee, subsequent encounter Take 1 tablet by mouth every 8 hours as needed for pain for up to 7 days. 06/06/2024 06/13/2024 Active Start: 05-25-2024 End: 06-01-2024 take 1 tablet by mouth every six hours as needed for pain oxyCODONE-acetaminophen (PERCOCET) 5-325 mg tablet Indications: Acute pain of left knee Take 1 tablet by mouth every 6 hours as needed for pain for up to 7 days. 28 tablet 0 05/25/2024 06/01/2024 Active [id number] 200 actuat albuterol 0.09 mg/actuat metered dose inhaler (20 sources) beta2-Adrenergic Agonist Start: 01-25-2025 take 2 puff(s) by inhalation every four hours as needed for wheezing albuterol HFA (PROVENTIL HFA, VENTOLIN HFA) 90 mcg/actuation inhaler Inhale 2 puffs as instructed every 4 hours as needed for wheezing/shortness of breath. 17 g 4 01/25/2025 Active Start: 08-01-2022 End: 01-25-2025 albuterol HFA (PROVENTIL HFA , VENTOLIN HFA) 90 mcg/actuation inhaler USE 2 INHALATIONS INSTRUCTED EVERY 4 HOURS NEEDED FOR WHEEZING/SHORTNESS OF BREATH 17 g 4 08/01/2022 01/25/2025 Discontinued Start: 01-30-2022 End: 08-01-2022 take 2 puff(s) by inhalation every four hours as needed for wheezing albuterol HFA (PROVENTIL HFA, VENTOLIN HFA) 90 mcg/actuation inhaler Inhale 2 Puffs as instructed every 4 hours as needed for wheezing/shortness of breath. 18 g 2 01/30/2022 08/01/2022 Discontinued Start: 08-14-2021 take 2 puff(s) by in halation every four hours as needed for wheezing albuterol HFA (PROVENTIL HFA, VENTOLIN HFA) 90 mcg/actuation inhaler INHALE 2 PUFFS INSTRUCTED EVERY 4 HOURS NEEDED FOR WHEEZING/SHORTNESS OF BREATH. 6.7 Each 2 08/14/2021 Active Comment on above: INHALE 2 PUFFS IN STRUCTED EVERY 4 HOURS NEEDED FOR WHEEZING/SHORTNESS OF BREATH. USE 2 INHALATIONS INSTRUCTED EVERY 4 HOURS NEEDED FOR WHEEZING/SHORTNESS OF BREATH allopurinol 100 mg oral tablet (20 sources) Xanthine Oxidase Inhibitor Start: 06-03-20 End: 07-08-20 24 allopurinol (ZYLOPRIM) 100 mg tablet take 1 tablet twice a day 180 tablet 3 06/20/2024 Active Comment on above: Take 1 tablet by [facility] twice daily. amoxicillin 875 mg / clavulanate 125 mg oral tablet (9 sources) Penicillin-class Antibacterial Start: 08-08-20 End: 08-18-20 take 1 tablet by mouth every twelve hours amoxicillin-clavul anate potassium (AUGMENTIN) 875-125 mg per tablet Take 1 tablet by mouth every 12 hours for 10 days. 20 tablet 08/08/2024 08/18/2024 Active Start: 05-19-2024 End: 05-29-2024 take 1 tablet by mouth every twelve hours amoxicillin-clavulanate potassium (AUGMENTIN) 875-125 mg per tablet Take 1 tablet by mouth every 12 hours for 10 days. 20 tablet 0 05/19/2024 05/29/2024 Suspended Start: 11-25-2022 End: 12-05-2022 take 1 tablet by mouth every twelve hours amoxicillin-clavulanic acid (AUGMENTIN) 875-125 mg per tablet Indications: Acute otitis media, left , Acute non-recurrent frontal sinusitis Take 1 tablet by mouth every 12 hours for 10 days. 20 tablet 0 11/25/2022 12/05/2022 Active Comment on above: Take 1 tablet by sheila th every 12 hours for 10 days. apixaban 5 mg oral tablet (20 sources) Factor Xa Inhibitor Start: 04-15-2023 End: 12-12-2024 take 1 tablet by mouth twice daily apixaban (ELIQUIS) 5 mg tab(s) Take 1 tablet by mouth two times a day. 180 tablet 3 12/13/2024 Active Start: 01-15-2023 End: 03-12-2023 take 1 tablet by mouth twice daily apixaban (ELIQUIS) 5 mg tab(s) Indications: Paroxysmal atrial fibrillation (HCC) Take 1 tablet by mouth twice daily. 60 tablet 0 02/10/2023 03/12/2023 Active Comment on above: Take 1 tablet by sheila th twice daily. Take 1 tablet by sheila th twice daily for 10 days. Take 1 tablet by sheila th two times a day. cefdinir 300 mg oral capsule (7 sources) Cephalosporin Antibacterial Start: 01-16-20 End: 02-04-20 take 1 capsule by mouth twice daily cefdinir (OMNICEF) 300 mg capsule Take 1 capsule by mouth twice daily for 19 days. 38 capsule 0 01/15/2023 02/03/2023 Active Comment on above: Take 1 capsule by mo [facility] twice daily for 19 days. ciprofloxacin 500 mg oral tablet (12 sources) Quinolone Antimicrobial Start: 05-05-20 End: 05-13-20 take 1 tablet by mouth twice daily ciprofloxacin HCl (CIPRO) 500 mg tablet Take 1 tablet by mouth twice daily for 7 days. 14 tablet 0 05/06/2023 05/13/2023 Active Start: 02-20-2023 End: 02-27-2023 take 1 tablet by mouth twice daily ciprofloxacin HCl (CIPRO) 500 mg tablet Take 1 tablet by mouth twice daily for 7 days. 14 tablet 0 02/20/2023 02/27/2023 Active Start: 02-09-2023 End: 02-16-2023 take 1 tablet by mouth twice daily ciprofloxacin HCl (CIPRO) 500 mg tablet Indications: Acute cystitis with hematuria Take 1 tablet by mouth twice daily for 7 days. 14 tablet 0 02/09/2023 02/16/2023 Start: 11-21-2022 End: 12-05-2022 take 1 tablet by mouth twice daily ciprofloxacin HCl (CIPRO) 500 mg tablet Indications: Acute cystitis with hematuria Take 1 tablet by mouth twice daily for 14 days. 28 tablet 0 11/21/2022 12/05/2022 Active Start: 07-17-2022 End: 07-31-2022 take 1 tablet by mouth twice daily ciprofloxacin HCl (CIPRO) 500 mg tablet Take 1 tablet by mouth twice daily for 14 days. 28 tablet 0 07/17/2022 07/31/2022 Active Comment on above: Take 1 tablet by sheila twice daily for 14 days. Take 1 tablet by sheila twice daily for 7 days. dapagliflozin 10 mg oral tablet (20 sources) Sodium-Glucose Cotransporter 2 Inhibitor Start: 023 End: take 1 tablet by mouth once daily at breakfast dapagliflozin propanediol (FARXIGA) 10 mg tablet Take 1 tablet by mouth daily with breakfast. 90 tablet 3 07/11/2024 Active Comment on above: Take 1 tablet by sheila daily with breakfast. 24 hr dilTIAZem hydrochloride 120 mg extended release oral capsule (20 sources) Calcium Channel Chaka Start: End: take 1 capsule by mouth once daily dilTIAZem CD (CARDIZEM CD, CARTIA XT) 120 mg 24 hr capsule Take 1 capsule by mouth once daily. 90 capsule 3 08/16/2024 08/16/2025 Active Start: 01-16-2023 End: 01-25-2024 take 1 capsule by mouth once daily dilTIAZem CD (CARDIZEM CD, CARTIA XT) 240 mg 24 hr capsule Indications: Paroxysmal atrial fibrillation (HCC) Take 1 capsule by mouth once daily. 90 capsule 3 01/11/2024 Suspended Comment on above: Take 1 capsule by mo [facility] once daily. DULoxetine 60 mg delayed release oral capsule (20 sources) Serotonin and Norepinephrine Reuptake Inhibitor Start: 03-07-20 End: 04-15-20 take 1 capsule by mouth once daily DULoxetine (CYMBALTA) 60 mg capsule Indications: Chronic pain syndrome Take 1 capsule by mouth once daily. 30 capsule 1 03/07/2024 04/15/2024 Discontinued Start: 02-18-2024 End: 05-24-2025 take 1 capsule by mouth twice daily DULoxetine (CYMBALTA) 60 mg capsule Indications: Chronic pain syndrome Take 1 capsule by mouth two times a day. 60 capsule 04/24/2025 Active Start: 02-15-2024 End: 02-18-2024 take 1 capsule by mouth once daily DULoxetine (CYMBALTA) 60 mg capsule Indications: Chronic pain syndrome Take 1 capsule by mouth once daily. 30 capsule 1 02/15/2024 02/18/2024 Discontinued Start: 12-17-2023 End: 02-15-2024 take 1 capsule by mouth once daily DULoxetine (CYMBALTA) 30 mg capsule Indications: Chronic pain syndrome take 1 capsule by mouth once daily 30 capsule 1 02/04/2024 02/15/2024 Discontinued Comment on above: Take 1 capsule by mo uth once daily. take 1 capsule by mo uth once daily enteric contrast (will be provided with radiology test) (4 sources) Start: 06-30-2023 End: 06-30-2023 take 1 dose by mouth once, then take 1 dose by mouth once enteric contrast (will be provided with radiology test) Indications: NHL (nodular histiocytic lymphoma) (HCC) Take 1 Each by mouth one time only for [address] Chest ABD/PEL WO Routine order Administer, As Directed One Time Only, via Oral, Rectal, both Oral and Rectal, Enteric Tube, Stoma or Indwelling Catheter, Enteric Contrast as designated per enteric contrast guidelines 1 Each 0 06/30/2023 06/30/2023 Active Start: 02-19-2023 End: 02-20-2023 enteric contrast (will be pr ovided with radiology test) Indications: NHL (nodular histiocytic lymphoma) (HCC) For CT CHESTABD/PEL W IVCON Routine order Administer, As Directed One Time Only, via Oral, Rectal, both Oral and Rectal, Enteric Tube, Stoma or Indwelling Catheter, Enteric Contrast as designated per enteric contrast guidelines 1 Each 0 02/19/2023 02/20/2023 Active Start: 08-21-2022 End: 08-22-2022 enteric contrast (will be pr ovided with radiology test) Indications: Diffuse large B-cell lymphoma, unspecified body region (HCC) For CT CHESTABD/PEL W IVCON Routine order Administer, As Directed One Time Only, via Oral, Rectal, both Oral and Rectal, Enteric Tube, Stoma or Indwelling Catheter, Enteric Contrast as designated per enteric contrast guidelines 1 Each 0 08/21/2022 08/22/2022 Active Comment on above: For CT CHESTABD/PEL W IVCON Routine order Administer, As Directed One Time Only, via Oral, Rectal, both Oral and Rectal, Enteric Tube, Stoma or Indwelling Catheter, Enteric Contrast as designated per enteric contrast guidelines Take 1 Each by mouth one time only for [address] Chest ABD/PEL WO Routine order Administer, As Directed One Time Only, via Oral, Rectal, both Oral and Rectal, Enteric Tube, Stoma or Indwelling Catheter, Enteric Contrast as designated per enteric contrast guidelines ergocalciferol 1.25 mg oral capsule (20 sources) Provitamin D2 Compound Start: 06-03-20 End: 01-26-20 take 1 capsule by mouth every week ergocalciferol 50,000 unit capsule (VITAMIN D2, DRISDOL) Take 1 capsule by mouth one time a week. 12 capsule 3 01/25/2025 Active Comment on above: Take 1 capsule by mo [facility] one time a week. TAKE 1 CAPSULE ONCE A WEEK fluconazole 100 mg oral tablet (7 sources) Azole Antifungal Start: 01-17-20 End: 02-04-20 take 1 tablet by mouth once daily fluconazole (DIFLUCAN) 100 mg tablet Take 1 tablet by mouth once daily for 18 days. 18 tablet 0 01/16/2023 02/03/2023 Active Comment on above: Take 1 tablet by sheila once daily for 18 days. furosemide 40 mg oral tablet (20 sources) Loop Diuretic Start: 05-19-20 End: 07-23-20 furosemide (LASIX) 40 mg tablet TAKE 1 TABLET DAILY 90 tablet 3 04/24/2025 Active Start: 11-03-2023 take 1 tablet by sheila twice daily furosemide (LASIX) 40 mg tablet Take 1 tablet by mouth two times a day. 180 tablet 3 11/03/2023 Suspended Start: 06-03-2023 End: 11-30-2023 take 2 tablets by mouth once daily furosemide (LASIX) 20 mg tablet Indications: Leg swelling Take 2 tablets by mouth once daily. 180 tablet 1 06/03/2023 11/30/2023 Active Start: 03-05-2023 End: 06-03-2023 take 1 tablet by mouth once daily furosemide (LASIX) 20 mg tablet Indications: Leg swelling Take 1 tablet by mouth once daily. 90 tablet 1 05/26/2023 06/03/2023 Discontinued Start: 12-30-2021 furosemide (LA SIX) 40 mg tablet Indications: Leg swelling TAKE 1 TABLET TWICE A DAY 180 tablet 3 12/30/2021 Suspended Comment on above: TAKE 1 TABLET TWICE A DAY Take 1 tablet by sheila th once daily. take 1 tablet by sheila th once daily Take 2 tablets by mo uth once daily. Take 1 tablet by sheila th two times a day. gabapentin 600 mg oral tablet (20 sources) Anti-epileptic Agent Start: 10-27-2024 End: 07-23-2025 take 1 tablet by mouth three times daily gabapentin (NEURONTIN) 600 mg tablet Indications: Type 2 diabetes mellitus with diabetic polyneuropathy, without long-term current use of insulin ([facility]) Take 1 tablet by mouth three times a day for 90 days. 270 tablet 04/24/2025 07/23/2025 Active Start: 11-21-2022 End: 09-21-2024 take 1 tablet by mouth three times daily gabapentin (NEURONTIN) 600 mg tablet Indications: Type 2 diabetes mellitus with diabetic polyneuropathy, without long-term current use of insulin (HCC) Take 1 tablet by mouth three times a day for 90 days. 270 tablet 06/23/2024 Active Start: 03-03-2022 End: 01-04-2023 take 1 capsule by mouth three times daily gabapentin (NEURONTIN) 300 mg capsule Indications: Neuropathy involving both lower extremities Take 1 capsule by mouth three times daily for 90 days. 270 capsule 0 10/06/2022 12/22/2022 Discontinued Start: 11-01-2021 take 1 capsule by mo uth three times daily gabapentin (NEURONTIN) 300 mg capsule Indications: Neuropathy involving both lower extremities Take 1 capsule by mouth three times daily for 30 days. 270 capsule 0 11/01/2021 Active Comment on above: Take 1 capsule by mo uth three times daily for 30 days. Take 1 capsule by mo uth three times daily for 90 days. Take 1 tablet by sheila th three times daily for 30 days. Take 600 mg by mouth three times daily. Take 1 tablet by sheila three times daily for 90 days. Take 1 tablet by sheila three times a day for 90 days. glimepiride 4 mg oral tablet (20 sources) Sulfonylurea Start: 01-17-2023 End: 02-07-2025 glimepiride (AMARYL) 4 mg tablet Indications: Type 2 diabetes mellitus with chronic kidney disease, with long-term current use of insulin, unspecified CKD stage (HCC) TAKE 1 TABLET TWICE A DAY WITH MEALS 180 tablet 3 02/07/2025 Active Start: 01-15-2023 take 1 tablet by sheila twice daily at mealtime glimepiride (AMARYL) 1 mg tablet Take 1 tablet by mouth twice daily with meals. 60 tablet 0 01/15/2023 Active Start: 09-10-2021 End: 09-05-2022 glimepiride (AMARYL) 2 mg ta blet TAKE 3 TABLETS ONCE DAILY 270 tablet 3 09/05/2022 Suspended Comment on above: Take 3 tablets by mo [facility] once daily. TAKE 3 TABLETS ONCE DAILY Take 1 tablet by sheila twice daily with meals. Take 1 tablet by sheila two times a day with meals. 3 ml insulin glargine 100 unt/ml pen injector (20 sources) Insulin Analog Start: 06-17-2024 End: 10-26-2024 insulin glargine (LANTUS SOLOSTAR U-100 INSULIN) 100 unit/mL (3 mL) Inject 30 Units subcutaneously every morning. 1500 mL 2 10/27/2024 Active Start: 05-19-2024 End: 05-25-2024 insulin glargine (LANTUS CHAPITO OSTAR U-100 INSULIN) 100 unit/mL (3 mL) Inject 30 Units subcutaneously as directed 5 Each 3 05/19/2024 05/25/2024 Discontinued (Erroneous entry) Start: 01-11-2021 insulin glargi ne (LANTUS SOLOSTAR U-100 INSULIN) 100 unit/mL (3 mL) Inject 25 Units subcutaneously daily at bedtime. 45 mL 3 01/11/2021 Active Comment on above: Inject 25 Units subc utaneously daily at bedtime. iv contrast (will be provided with radiology test) (4 sources) Start: 02-19-2023 End: 02-20-2023 iv contrast (will be provided with radiology test) Indications: NHL (nodular histiocytic lymphoma) (HCC) CT Chest ABD/PEL-Inject, intravenously, once for 1 dose.No IV access, insert saline lock prior to the beginning of sedation, infusion, injection of imaging exam. Discontinue saline lock post exam. If Pt. has a central line or IVAD, may access for administration according to line specific nursing protocol. Once exam is complete flush line and de-access according to line specific nursing protocol in the CT contrast administration guidelines link. 1 Each 0 02/19/2023 02/20/2023 Active Start: 08-21-2022 End: 08-22-2022 iv contrast (will be provide d with radiology test) Indications: Diffuse large B-cell lymphoma, unspecified body region (HCC) CT Chest ABD/PEL-Inject, intravenously, once for 1 dose.No IV access, insert saline lock prior to the beginning of sedation, infusion, injection of imaging exam. Discontinue saline lock post exam. If Pt. has a central line or IVAD, may access for administration according to line specific nursing protocol. Once exam is complete flush line and de-access according to line specific nursing protocol in the CT contrast administration guidelines link. 1 Each 0 08/21/2022 08/22/2022 Active Start: 06-20-2022 End: 06-21-2022 iv contrast (will be provide d with radiology test) Indications: Diffuse large B-cell 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) MRI Pelvis Inject, intravenously, once for 1 dose. No IV access, insert saline lock prior to the beginning of sedation, infusion, injection of imaging exam. Discontinue saline lock post exam. If Pt has a central line or IVAD, may access for administration according to line specific nursing protocol. Once exam is complete flush line and de-access according to line specific nursing protocol in the MR contrast administration guidelines link. 1 Each 0 06/20/2022 06/21/2022 Active Comment on above: MRI Pelvis Inject, i ntravenously, once for 1 dose. No IV access, insert saline lock prior to the beginning of sedation, infusion, injection of imaging exam. Discontinue saline lock post exam. If Pt has a central line or IVAD, may access for administration according to line specific nursing protocol. Once exam is complete flush line and de-access according to line specific nursing protocol in the MR contrast administration guidelines link. CT Chest ABD/PEL-Inj ect, intravenously, once for 1 dose.No IV access, insert saline lock prior to the beginning of sedation, infusion, injection of imaging exam. Discontinue saline lock post exam. If Pt. has a central line or IVAD, may access for administration according to line specific nursing protocol. Once exam is complete flush line and de-access according to line specific nursing protocol in the CT contrast administration guidelines link. lidocaine 25 mg/ml / prilocaine 25 mg/ml topical cream (20 sources) Antiarrhythmic, Amide Local Anesthetic Start: 1 End: 4 lidocaine-prilocaine (EMLA) 2.5-2.5 % cream Indications: Diffuse large B-cell 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) APPLY TO AFFECTED AREA NEEDED PRIOR TO CHEMOTHERAPY 30 g 11 03/04/2024 Active Comment on above: APPLY TO AFFECTED AR EA NEEDED PRIOR TO CHEMOTHERAPY lisinopril 5 mg oral tablet (20 sources) Angiotensin Converting Enzyme Inhibitor Start: 4 End: 5 take 1 tablet by mouth once daily lisinopril (ZESTRIL) 5 mg tablet Take 1 tablet by mouth once daily. 90 tablet 3 01/25/2025 Active Start: 02-18-2024 take 1 tablet by sheila th once daily lisinopril 2.5 mg tablet Take 1 tablet by mouth once daily. 90 tablet 1 02/18/2024 Suspended Start: 02-09-2023 End: 02-18-2024 lisinopril (ZESTRIL) 10 mg t ablet TAKE 1 TABLET DAILY 90 tablet 3 05/04/2023 02/18/2024 Discontinued Start: 12-30-2021 lisinopril (ZE STRIL, PRINIVIL) 10 mg tablet Indications: Hypertension, essential TAKE 1 TABLET DAILY 90 tablet 3 12/30/2021 Suspended Comment on above: TAKE 1 TABLET DAILY Take 10 mg by mouth once daily. Take 1 tablet by sheila th once daily. 24 hr metFORMIN hydrochloride 750 mg extended release oral tablet (20 sources) Biguanide Start: 5 End: 08-04-202 5 take 1 tablet by mouth twice daily at mealtime metFORMIN 750 mg tablet Indications: Type 2 diabetes mellitus with diabetic polyneuropathy, without long-term current use of insulin (HCC) Take 1 tablet by mouth two times a day with meals. 180 tablet 3 05/29/2025 Active Start: 07-18-2024 End: 02-28-2025 metFORMIN (GLUCOPHAGE) 500 m g tablet TAKE 1 TABLET TWICE A DAY WITH MEALS 180 tablet 3 01/06/2025 02/28/2025 Discontinued Start: 12-29-2023 End: 03-28-2024 metFORMIN (GLUCOPHAGE) 500 m g tablet TAKE 1 TABLET DAILY WITH BREAKFAST FOR 14 DAYS THEN 1 TABLET TWICE A DAY WITH MEALS THEREAFTER 166 tablet 3 03/10/2024 Suspended Start: 05-26-2023 End: 01-06-2024 take 1.5 tablets by mouth once daily at breakfast, then take 1 tablet by mouth once daily at dinner metFORMIN (GLUCOPHAGE) 1,000 mg tablet Indications: Type 2 diabetes mellitus with diabetic polyneuropathy, without long-term current use of insulin (HCC) Take 1.5 tablets by mouth daily with breakfast AND 1 tablet daily with dinner. 225 tablet 1 07/10/2023 10/09/2023 Discontinued Start: 02-09-2023 End: 05-26-2023 take 1 tablet by mouth twice daily metFORMIN (GLUCOPHAGE) 1,000 mg tablet Take 1 tablet by mouth twice daily. 180 tablet 3 02/20/2023 05/26/2023 Discontinued Start: 02-05-2021 End: 12-22-2022 take 1 tablet by mouth twice daily metFORMIN (GLUCOPHAGE) 1,000 mg tablet Take 1 tablet by mouth twice daily. 180 tablet 3 10/06/2022 12/22/2022 Discontinued Comment on above: TAKE 1 TABLET TWICE A DAY Take 1 tablet by sheila th twice daily. Take 1.5 tablets by mouth daily with breakfast AND 1 tablet daily with dinner. Take 1 tablet by sheila th daily with breakfast for 14 days, THEN 1 tablet two times a day with meals. metoprolol tartrate 25 mg oral tablet (20 sources) beta-Adrenergic Chaka Start: 11-24-2023 End: 04-27-2026 take 1 tablet by mouth every twelve hours metoprolol tartrate, short acting, (LOPRESSOR) 25 mg tablet Indications: Essential hypertension Take 1 tablet by mouth every 12 hours. 180 tablet 3 04/27/2025 04/27/2026 Active Start: 01-15-2023 End: 03-01-2023 take 1 tablet by mouth every twelve hours metoprolol tartrate, short acting, (LOPRESSOR) 50 mg tablet Indications: Paroxysmal atrial fibrillation (HCC) Take 1 tablet by mouth every 12 hours. 180 tablet 3 01/30/2023 Active Start: 11-21-2022 End: 11-25-2022 take 1 tablet by mouth twice daily metoprolol tartrate 37.5 mg tab Indications: Tachycardia Take 1 tablet by mouth twice daily. 180 tablet 2 11/25/2022 Suspended Start: 08-23-2021 End: 11-21-2022 metoprolol tartrate, short a cting, (LOPRESSOR) 50 mg tablet Indications: Tachycardia TAKE 1 TABLET TWICE A DAY 180 tablet 3 07/31/2022 11/21/2022 Discontinued Comment on above: Take 1 tablet by sheila th twice daily. TAKE 1 TABLET TWICE A DAY Take 1 tablet by sheila th every 12 hours. polyethylene glycol 3350 51792 mg powder for oral solution (20 sources) Osmotic Laxative Start: 05-20-2024 End: 06-19-2024 polyethylene glycol 3350 17 gram packet Take 1 Packet by mouth once daily. Dissolve dose in 4 - 8 ounces of liquid and take as directed. 30 Packet 05/20/2024 06/19/2024 Active Start: 07-06-2019 End: 06-03-2023 take 1 dose by mouth once daily polyethylene glycol 3350 (MIRALAX, GLYCOLAX) 17 gram packet Take 1 Packet by mouth once daily. 10 Each 1 07/06/2019 06/03/2023 Discontinued (.All criteria met for discontinuation) Comment on above: Take 1 Packet by sheila th once daily. rosuvastatin calcium 40 mg oral tablet (20 sources) HMG-CoA Reductase Inhibitor Start: 10-09-2023 End: 04-06-2025 rosuvastatin (CRESTOR) 40 mg tablet Indications: Hyperlipidemia, mixed TAKE 1 TABLET DAILY 90 tablet 3 04/06/2025 Active Start: 11-08-2021 End: 11-21-2022 take 1 tablet by mouth once daily rosuvastatin (CRESTOR) 40 mg tablet Indications: Hyperlipidemia, mixed Take 1 tablet by mouth once daily. 90 tablet 1 11/21/2022 11/21/2022 Discontinued Comment on above: Take 1 tablet by sheila once daily. semaglutide (OZEMPIC) 2 mg/dose (8 mg/3 mL) pen injector (14 sources) Start: 2024 inject 2 mg by subcutaneous injection every week semaglutide (OZEMPIC) 2 mg/dose (8 mg/3 mL) pen injector Indications: Type 2 diabetes mellitus with diabetic polyneuropathy, without long-term current use of insulin ([facility]) Inject 2 mg subcutaneously one time a week. 3 mL 2 02/28/2025 Active sildenafil 20 mg oral tablet (20 sources) Phosphodiesterase 5 Inhibitor Start: 2021 take 3-5 tablets by mouth once daily as needed sildenafil (REVATIO) 20 mg tablet Indications: ED (erectile dysfunction) of organic origin Take 3-5 tablets by mouth once daily as needed. 15 tablet 11 08/15/2022 Active Comment on above: Take 3-5 tablets by mouth once daily as needed. SITagliptin 100 mg oral tablet (20 sources) Dipeptidyl Peptidase 4 Inhibitor Start: 2023 End: 2023 take 1 tablet by mouth once daily SITagliptin phosphate (JANUVIA) 100 mg tablet Indications: Type 2 diabetes mellitus with diabetic polyneuropathy, without long-term current use of insulin ([facility]) Take 1 tablet by mouth once daily. 90 tablet 3 06/23/2024 Active Start: 11-21-2022 End: 06-08-2023 take 1 tablet by mouth once daily SITagliptin phosphate (JANUVIA) 100 mg tablet Indications: Type 2 diabetes mellitus with diabetic polyneuropathy, without long-term current use of insulin ([facility]) Take 1 tablet by mouth once daily. 90 tablet 1 06/08/2023 Active Start: 08-15-2022 End: 11-21-2022 take 1 tablet by mouth once daily SITagliptin (JANUVIA) 50 mg tablet Indications: Type 2 diabetes mellitus without complication, with long-term current use of insulin ([facility]) Take 1 tablet by mouth once daily. 30 tablet 2 08/15/2022 11/21/2022 Discontinued Start: 01-30-2022 End: 05-02-2022 take 1 tablet by mouth once daily SITagliptin (JANUVIA) 25 mg tablet Indications: Type 2 diabetes mellitus without complication, with long-term current use of insulin (HCC) Take 1 tablet by mouth once daily. 30 tablet 2 05/02/2022 Active Comment on above: Take 1 tablet by sheila th once daily. TAKE 1 TABLET BY SHEILA TH EVERY DAY sodium bicarbonate 650 mg oral tablet (20 sources) Start: 01-15-2023 End: 01-25-2025 take 2 tablets by mouth twice daily sodium bicarbonate 650 mg tablet Take 2 tablets by mouth two times a day. 360 tablet 3 01/25/2025 Active Comment on above: Take 2 tablets by mo [facility] twice daily. TAKE 2 TABLETS TWICE A DAY Completed/Discontinued Medications Medication Drug Class(es) Dates Sig (Normalized) Sig (Original) albuterol 0.833 mg/ml / ipratropium bromide 0.167 mg/ml inhalation solution (20 sources) Anticholinergic, beta2-Adrenergic Agonist Start: 12-22-2022 End: 06-03-2023 take 3 mL by inhalation every six hours as needed for wheezing ipratropium-albute rol (DUONEB) 0.5 mg-3 mg(2.5 mg base)/3 mL nebu Indications: COVID Inhale 3 mL as instructed every 6 hours as needed for wheezing/shortness of breath. 360 mL 2 12/22/2022 06/03/2023 Discontinued (.All criteria met for discontinuation) Comment on above: Inhale 3 mL as instr ucted every 6 hours as needed for wheezing/shortness of breath. 24 hr alfuzosin hydrochloride 10 mg extended release oral tablet (20 sources) alpha-Adrenergic Chaka Start: 12-24-2022 End: 05-26-2023 take 1 tablet by mouth once daily alfuzosin SR (UROXATRAL) 10 mg 24 hr tablet Take 1 tablet by mouth once daily. 30 tablet 1 12/24/2022 05/26/2023 Discontinued (Other) Comment on above: Take 1 tablet by sheila th once daily. aspirin 81 mg chewable tablet (20 sources) Platelet Aggregation Inhibitor, Nonsteroidal Anti-inflammatory Drug End: 01-26-2023 take 1 tablet by mouth once daily aspirin 81 mg chewable tablet Take 81 mg by mouth once daily. 0 01/26/2023 Discontinued (Other) Comment on above: Take 81 mg by mouth once daily. b complex, c, folic acid 1 mg renal vitamins (NEPHROCAPS) 1 mg capsule (8 sources) Start: 04-19-2024 End: 05-25-2024 take 1 capsule by mouth once daily b complex, c, folic acid 1 mg renal vitamins (NEPHROCAPS) 1 mg capsule Take 1 capsule by mouth once daily. 90 capsule 1 04/19/2024 05/25/2024 Discontinued (Erroneous entry) Start: 04-19-2024 End: 10-16-2024 take 1 capsule by mouth once daily b complex, c, folic acid 1 mg renal vitamins (NEPHROCAPS) 1 mg capsule Take 1 capsule by mouth once daily. 90 capsule 1 04/19/2024 10/16/2024 Suspended Start: 04-19-2024 End: 10-16-2024 take 1 capsule by mouth once daily b complex, c, folic acid 1 mg renal vitamins (NEPHROCAPS) 1 mg capsule Take 1 capsule by mouth once daily. 90 capsule 1 04/19/2024 10/16/2024 Active calcitriol 0.27681 mg oral capsule (8 sources) Vitamin D3 Analog Start: 04-20-2024 End: 10-17-2024 take 1 capsule by mouth once calcitriol (ROCALTROL) 0.25 mcg capsule Take 1 capsule by mouth every Thursday, Thursday, and Thursday. 36 capsule 1 04/20/2024 05/25/2024 Discontinued (Erroneous entry) diclofenac sodium 0.01 mg/mg topical gel (8 sources) Nonsteroidal Anti-inflammatory Drug Start: 05-19-2024 End: 06-13-2024 apply 2 g topically four times daily diclofenac (VOLTAREN) 1 % topical gel Apply 2 g to affected area four times daily. 4 g 05/19/2024 06/13/2024 Discontinued 0.5 ml dulaglutide 1.5 mg/ml auto-injector (3 sources) GLP-1 Receptor Agonist Start: 10-09-2023 End: 10-09-2023 inject 0.75 mg by subcutaneous injection every week dulaglutide (TRULICITY) 0.75 mg/0.5 mL pen injector Inject 0.75 mg subcutaneously one time a week. 2 mL 2 10/09/2023 10/09/2023 Discontinued Comment on above: Inject 0.75 mg subcutaneously one time a week. ibuprofen 200 mg oral tablet (20 sources) Nonsteroidal Anti-inflammatory Drug take 1 tablet by mouth every six hours as needed ibuprofen (MOTRIN) 200 mg tablet Take 200 mg by mouth every 6 hours as needed. 0 Suspended Comment on above: Take 200 mg by mouth every 6 hours as ne eded. 3 ml insulin isophane, human 100 unt/ml pen injector (5 sources) Start: 12-22-2022 insulin NPH human (NOVOLIN N FLEXPEN) 100 unit/mL (3 mL) injection pen Indications: Type 2 diabetes mellitus without complication, with long-term current use of insulin (HCC) Inject 0-10 Units subcutaneously before meals and at bedtime. If blood sugar less than 150, 0 units, 151-200, 2 units, 201-250, 4 units, 251-300, 6 units, 301-350, 8 units, 351-400, 10 units, over 400, 10 units and call this office 5 Each 2 12/22/2022 Suspended Comment on above: Inject 0-10 Units subcutaneously before meals and at bedtime. If blood sugar less than 150, 0 units, 151-200, 2 units, 201-250, 4 units, 251-300, 6 units, 301-350, 8 units, 351-400, 10 units, over 400, 10 units and call this office lidocaine 0.04 mg/mg medicated patch (2 sources) Antiarrhythmic, Amide Local Anesthetic Start: 06-06-2024 End: 06-11-2024 apply 1 dose transdermal route once daily lidocaine (SALONPAS) 4 % patch Apply 1 Patch as directed once daily for 5 days. 0 06/06/2024 06/11/2024 Suspended Nebulizer and Compressor For Neb (20 sources) Start: 12-22-2022 End: 06-03-2023 Nebulizer and Compressor For Neb Indications: COVID Use with duoneb 4 times per day as needed 1 Each 0 12/22/2022 06/03/2023 Discontinued (.All criteria met for discontinuation) Start: 12-22-2022 Nebulizer and Compressor For Neb Indications: COVID Use with duoneb 4 times per day as needed 1 Each 0 12/22/2022 Suspended Start: 12-22-2022 Nebulizer and Compressor For Neb Indications: COVID Use with duoneb 4 times per day as needed 1 Each 0 12/22/2022 Active Comment on above: Use with duoneb 4 ti mes per day as needed ondansetron 4 mg oral tablet (20 sources) Serotonin-3 Receptor Antagonist Start: 0 End: 3 take 1 tablet by mouth every eight hours as needed for nausea and nausea ondansetron (ZOFRAN) 4 mg tablet Indications: Nausea Take 1 tablet by mouth every 8 hours as needed for nausea/vomiting. 30 tablet 0 12/22/2022 Suspended Comment on above: Take 1 tablet by sheila every 8 hours as needed for Nausea/Vomiting. oxyCODONE hydrochloride 5 mg oral tablet (20 sources) Opioid Agonist Start: End: take 1 tablet by mouth every eight hours as needed for pain oxyCODONE IR (ROXICODONE) 5 mg immediate release tablet Indications: Acute pain of left knee Take 1 tablet by mouth every 8 hours as needed for pain for up to 30 days. 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 12 tablet 06/13/2024 06/16/2024 Active Start: 05-19-2024 End: 05-24-2024 take 1 tablet by mouth every six hours as needed oxyCODONE IR (ROXICODONE) 5 mg immediate release tablet Indications: Hemarthrosis , Effusion of left knee , Acute pain of left knee Take 1 tablet by mouth every 6 hours as needed for up to 5 days. 20 tablet 0 05/19/2024 05/24/2024 OZEMPIC 1 mg/dose (4 mg/3 mL) pen (14 sources) Start: 07-21-2024 End: 10-26-2024 inject 1 mg by subcutaneous injection every week OZEMPIC 1 mg/dose (4 mg/3 mL) pen Indications: Type 2 diabetes mellitus with diabetic polyneuropathy, without long-term current use of insulin (HCC) INJECT 1 MG UNDER THE SKIN WEEKLY 9 mL 3 07/21/2024 10/26/2024 Discontinued Start: 07-21-2024 inject 1 mg by subcu taneous injection every week OZEMPIC 1 mg/dose (4 mg/3 mL) pen Indications: Type 2 diabetes mellitus with diabetic polyneuropathy, without long-term current use of insulin (HCC) INJECT 1 MG UNDER THE SKIN WEEKLY 9 mL 3 07/21/2024 Active potassium chloride 10 meq extended release oral tablet (20 sources) Start: 03-05-2023 End: 05-23-2024 take 1 tablet by mouth once daily potassium chloride (K-TAB) 10 mEq tablet Indications: Leg swelling Take 1 tablet by mouth once daily. 90 tablet 1 06/03/2023 05/23/2024 Discontinued (Adjust Sig - Block E-Cancel) Start: 01-14-2022 End: 10-06-2022 take 1 tablet by mouth twice daily potassium chloride ER (KLOR-CON M20) 20 mEq tablet Indications: Leg swelling Take 1 tablet by mouth twice daily. 180 tablet 3 10/06/2022 Suspended Comment on above: TAKE 1 TABLET TWICE A DAY Take 1 tablet by sheila th twice daily. Take 1 tablet by sheila th once daily. take 1 tablet by sheila th once daily regadenoson 0.4 mg injection (LEXISCAN) (1 source) Start: 02-27-20 End: 02-27-20 regadenoson 0.4 mg injection (LEXISCAN) semaglutide (OZEMPIC) 0.25 mg or 0.5 mg (2 mg/3 mL) pen (12 sources) Start: 11-19-19 End: 02-18-20 inject 0.5 mg by subcutaneous injection every week semaglutide (OZEMPIC) 0.25 mg or 0.5 mg (2 mg/3 mL) pen Indications: Type 2 diabetes mellitus with diabetic neuropathy, without long-term current use of insulin (HCC) Inject 0.5 mg subcutaneously one time a week. 9 mL 1 11/19/2023 02/18/2024 Discontinued Start: 11-19-2023 End: 05-05-2024 inject 0.5 mg by subcutaneous injection every week semaglutide (OZEMPIC) 0.25 mg or 0.5 mg (2 mg/3 mL) pen Indications: Type 2 diabetes mellitus with diabetic neuropathy, without long-term current use of insulin (HCC) Inject 0.5 mg subcutaneously one time a week. 9 mL 1 11/19/2023 05/05/2024 Active Comment on above: Inject 0.5 mg subcut aneously one time a week. semaglutide (OZEMPIC) 1 mg/dose (4 mg/3 mL) pen (20 sources) Start: End: inject 1 mg by subcutaneous injection every week semaglutide (OZEMPIC) 1 mg/dose (4 mg/3 mL) pen Indications: Type 2 diabetes mellitus with diabetic polyneuropathy, without long-term current use of insulin (HCC) Inject 1 mg subcutaneously one time a week. 9 mL 3 11/03/2024 02/28/2025 Discontinued Start: 11-03-2024 inject 1 mg by subcu taneous injection every week semaglutide (OZEMPIC) 1 mg/dose (4 mg/3 mL) pen Indications: Type 2 diabetes mellitus with diabetic polyneuropathy, without long-term current use of insulin (HCC) Inject 1 mg subcutaneously one time a week. 9 mL 3 11/03/2024 Active Start: 10-27-2024 End: 11-03-2024 inject 1 mg by subcutaneous injection every week semaglutide (OZEMPIC) 1 mg/dose (4 mg/3 mL) pen Indications: Type 2 diabetes mellitus with diabetic polyneuropathy, without long-term current use of insulin (HCC) Inject 1 mg subcutaneously one time a week. 9 mL 3 10/27/2024 11/03/2024 Discontinued Start: 10-27-2024 inject 1 mg by subcu taneous injection every week semaglutide (OZEMPIC) 1 mg/dose (4 mg/3 mL) pen Indications: Type 2 diabetes mellitus with diabetic polyneuropathy, without long-term current use of insulin (HCC) Inject 1 mg subcutaneously one time a week. 9 mL 3 10/27/2024 Active Start: 02-18-2024 End: 07-21-2024 inject 1 mg by subcutaneous injection every week semaglutide (OZEMPIC) 1 mg/dose (4 mg/3 mL) pen Indications: Type 2 diabetes mellitus with diabetic polyneuropathy, without long-term current use of insulin (HCC) Inject 1 mg subcutaneously one time a week. 9 mL 1 02/18/2024 07/21/2024 Discontinued Start: 02-18-2024 End: 08-04-2024 inject 1 mg by subcutaneous injection every week semaglutide (OZEMPIC) 1 mg/dose (4 mg/3 mL) pen Indications: Type 2 diabetes mellitus with diabetic polyneuropathy, without long-term current use of insulin (HCC) Inject 1 mg subcutaneously one time a week. 9 mL 1 02/18/2024 08/04/2024 Suspended Start: 02-18-2024 End: 08-04-2024 inject 1 mg by subcutaneous injection every week semaglutide (OZEMPIC) 1 mg/dose (4 mg/3 mL) pen Indications: Type 2 diabetes mellitus with diabetic polyneuropathy, without long-term current use of insulin (HCC) Inject 1 mg subcutaneously one time a week. 9 mL 1 02/18/2024 08/04/2024 Active tamsulosin hydrochloride 0.4 mg oral capsule (20 sources) alpha-Adrenergic Chaka Start: 02-12-2021 tamsu losin (FLOMAX) 0.4 mg Take 1 capsule by mouth once daily. 30 minutes after the same meal each day. 30 capsule 1 02/12/2021 Active Comment on above: Take 1 capsule by mo [facility] once daily. 30 minutes after the same meal each day. Problems Active Problems Problem Classification Problem Date Documented Date Episodic/Chronic Abdominal pain (1 source) Left lower quadrant pain; Translations: [Left lower quadrant pain] Episodic Cardiac dysrhythmias (20 sources) Atrial fibrillation with rapid ventricular response; Translations: [Unspecified atrial fibrillation] Onset: 3 01-10-2023 Chronic Chronic kidney disease (20 sources) Anemia of renal disease; Translations: [Chronic kidney disease, unspecified] Onset: 4 Chronic Chronic kidney disease (1 source) Chronic kidney disease; Translations: [Stage 3b chronic kidney disease (HCC)] Onset: 4 Chronic obstructive pulmonary disease and bronchiectasis (20 sources) Simple chronic bronchitis; Translations: [Simple chronic bronchitis] Onset: 4 05-26-2024 Chronic Chronic ulcer of skin (1 source) Non-pressure chronic ulcer of other part of right foot 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; Translations: [Diabetic ulcer of toe of right foot associated with type 2 diabetes mellitus, 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 (HCC)] Onset: 4 Chronic Coagulation and hemorrhagic disorders (20 sources) Thrombocytopenic disorder; Translations: [Thrombocytopenia, unspecified] 01-09-2023 Chronic Conditions associated with dizziness or vertigo (1 source) Dizziness; Translations: [Dizziness and giddiness] 12-23-2023 Episodic Coronary atherosclerosis and other heart disease (20 sources) Coronary atherosclerosis; Translations: [Atherosclerotic heart disease of [place] coronary artery without angina pectoris] Onset: 2 11-01-2021 Chronic Deficiency and other anemia (20 sources) Anemia; Translations: [Anemia, unspecified] 01-28-2021 Episodic Diabetes mellitus with complications (20 sources) Type 2 diabetes mellitus; Translations: [Type 2 diabetes mellitus with diabetic polyneuropathy] Onset: 7 Chronic Diabetes mellitus without complication (20 sources) Type 2 diabetes mellitus without complication; Translations: [Type 2 diabetes mellitus without complications] Onset: 7 04-06-2020 Chronic Disorders of lipid metabolism (20 sources) Mixed hyperlipidemia; Translations: [Mixed hyperlipidemia] Onset: 2 05-02-2022 Chronic Essential hypertension (20 sources) Essential hypertension; Translations: [Essential (primary) hypertension] Onset: 8 10-30-2019 Chronic Genitourinary symptoms and ill-defined conditions (12 sources) Increased frequency of urination; Translations: [Frequency of micturition] Episodic Hyperplasia of prostate (20 sources) Nocturia due to benign prostatic hypertrophy; Translations: [Benign prostatic hyperplasia with lower urinary tract symptoms] Onset: 3 01-07-2023 Chronic Malignant neoplasm without specification of site (20 sources) Malignant neoplastic disease; Translations: [Malignant (primary) neoplasm, unspecified] Onset: 1 05-22-2021 Chronic Mood disorders (20 sources) Depressive disorder; Translations: [Depression] Onset: 4 05-30-2024 Chronic Non-Hodgkin`s lymphoma (20 sources) Diffuse non-Hodgkin's lymphoma, large cell (clinical); Translations: [Diffuse large B-cell lymphoma, lymph nodes of multiple sites] Onset: 9 Chronic Nutritional deficiencies (20 sources) Undernutrition; Translations: [Mild protein-calorie malnutrition] Onset: 3 Resolved: 4 12-16-2022 Chronic Open wounds of extremities (2 sources) Laceration without foreign body of left index finger without damage to nail, initial encounter; Translations: [Laceration without foreign body of left index finger without damage to nail, initial encounter] Onset: 4 Episodic Osteoarthritis (4 sources) Degenerative joint disease involving multiple joints; Translations: [Polyosteoarthritis, unspecified] Chronic Other aftercare (20 sources) Long-term current use of anticoagulant; Translations: [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] Onset: 4 11-24-2023 Episodic Other aftercare (1 source) Drug therapy finding; Translations: [custodial (current) use of anticoagulants] 08-16-2024 Episodic Other aftercare (1 source) 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; Translations: [custodial use of drug] Onset: 5 Episodic Other bone disease and musculoskeletal deformities (20 sources) History of amputation of right great toe; Translations: [Acquired absence of right great toe] Onset: 4 07-09-2024 Chronic Other bone disease and musculoskeletal deformities (1 source) Acquired absence of right great toe; Translations: [History of amputation of right great toe (HCC)] Onset: 4 Chronic Other circulatory disease (20 sources) History of surgical procedure on vein; Translations: [Presence of other vascular implants and grafts] Onset: 4 05-29-2024 Chronic Other circulatory disease (1 source) Low blood pressure; Translations: [Hypotension, unspecified] 12-23-2023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 Order Comment: Speci men Type: URINE SPECIMENOrdering Facility: [facility] Address: [address] [place] [address] Result Comment: Cuto ff threshold at 300 ng/mL. Performed By: #### U TOX2 ####[facility] LABCLIA [id number] [place] [address] [facility] oxyCODONE cutoff Screen (U) [Mass/Vol] Negative Normal Negative [facility] Comment on above: Order Comment: Speci men Type: URINE SPECIMENOrdering Facility: [facility] Address: [address] [place] [address] Result Comment: Cuto ff threshold at 100 ng/mL. Performed By: #### U TOX2 ####[facility] LABCLIA [id number] [place] [address] [facility] Phencyclidine Ql (U) Negative Normal Negative [facility] Comment on above: Order Comment: Speci men Type: URINE SPECIMENOrdering Facility: [facility] Address: [address] [place] [address] Result Comment: Cuto ff threshold at 25 ng/mL. Performed By: #### U TOX2 ####TOMASA [facility]ANIEGO EDIRDRE HODGES [id number] [place] [address] [facility] Bruce 05-09-2025 STEPHENIE Telephone (WILFRED) -------- EDITHYAMILKA ([id number]) 1965 M Date Time Provider Department 05/09/25 NAJMA BLOOM During your visit today, we recorded the following information about you: Criss Devi MA 05/09/2025 9:04 AM Signed Received fax from [employer] stating patient's Metformin requires prior auth. Went on Covermymeds using [place]: [id number] and submitted prior auth. KENIA Mills Janie, MA 05/09/2025 2:41 PM Signed Received fax stating prior auth was approved from 03/09/25 - 05/08/26 reference# [id number]. Criss Devi MA Allergies As of Date: 05/09/2025 Noted Allergy Reaction ASPARTAME 06/05/2020 5 - Intolerance Comments: Severe headache BACTRIM (SULFAMETHOXAZOLE-TRIMET H*07/18/2016 4 - Hives 5 - Intolerance Comments: Reaction: gas Sensitivity: Intolerance. Sensitivity: Intolerance BIAXIN (CLARITHROMYCIN) 07/18/2016 16 - Unknown Comments: Indigestion/gas INFLUENZA VACCINE TRI-SP 09-10 10/29/2018 16 - Unknown Comments: Flu MONOSODIUM GLUTAMATE 05/25/2024 6 - Diarrhea MONOSODIUM GLUTAMATE (MSG) 06/05/2020 5 - Intolerance Comments: Severe headache PANTOPRAZOLE 02/01/2021 6 - Diarrhea SULFA (SULFONAMIDE ANTIBIOTICS) 07/18/2016 2 - Rash 4 - Hives CLINDAMYCIN HCL 07/18/2016 6 - Diarrhea 8 - GI Upset 11 - Vomiting Comments: Reaction: Nausea/vomiting/diarrhea Other Reaction: stomach cramps Sensitivity: Intolerance Date Reviewed: 04/27/2025 Reviewed by: Eusebio Gutierrez LPN - Fully Assessed Reason for Visit: medication coverage [Other] Cmt: Metformin prior auth - Approved Prescriptions as of 05/09/2025 - metFORMIN 750 mg tablet Take 1 tablet by mouth two times a day with meals. - metoprolol tartrate, short acting, (LOPRESSOR) 25 mg tablet Take 1 tablet by mouth every 12 hours. - gabapentin (NEURONTIN) 600 mg tablet Take 1 tablet by mouth three times a day for 90 days. - furosemide (LASIX) 40 mg tablet Take 1 tablet by mouth once daily. - DULoxetine (CYMBALTA) 60 mg capsule Take 1 capsule by mouth two times a day. - furosemide (LASIX) 40 mg tablet TAKE 1 TABLET DAILY - rosuvastatin (CRESTOR) 40 mg tablet TAKE 1 TABLET DAILY - semaglutide (OZEMPIC) 2 mg/dose (8 mg/3 mL) pen injector Inject 2 mg subcutaneously one time a week. - glimepiride (AMARYL) 4 mg tablet TAKE 1 TABLET TWICE A DAY WITH MEALS - albuterol HFA (PROVENTIL HFA, VENTOLIN HFA) 90 mcg/actuation inhaler Inhale 2 puffs as instructed every 4 hours as needed for wheezing/shortness of breath. - sodium bicarbonate 650 mg tablet Take 2 tablets by mouth two times a day. - lisinopril (ZESTRIL) 5 mg tablet Take 1 tablet by mouth once daily. - ergocalciferol 50,000 unit capsule (VITAMIN D2, DRISDOL) Take 1 capsule by mouth one time a week. - apixaban (ELIQUIS) 5 mg tab(s) Take 1 tablet by mouth two times a day. - acetaminophen (TYLENOL) 325 mg tablet Take 650 mg by mouth every 6 hours as needed. - insulin glargine (LANTUS SOLOSTAR U-100 INSULIN) 100 unit/mL (3 mL) Inject 30 Units subcutaneously every morning. - dilTIAZem CD (CARDIZEM CD, CARTIA XT) 120 mg 24 hr capsule Take 1 capsule by mouth once daily. - blood sugar diagnostic ([employer] VERIO TEST STRIPS) test strip 1 Strip two times a day. Use with blood glucose test two times a day. Insulin Dep? No - dapagliflozin propanediol (FARXIGA) 10 mg tablet Take 1 tablet by mouth daily with breakfast. - SITagliptin phosphate (JANUVIA) 100 mg tablet Take 1 tablet by mouth once daily. - allopurinol (ZYLOPRIM) 100 mg tablet take 1 tablet twice a day - lancets (ONETOUCH DELICA PLUS LANCET) 33 gauge Use with blood glucose test three times a day. Insulin Dep? Yes - blood sugar diagnostic (ONETOUCH VERIO TEST STRIPS) test strip Use with blood glucose test three times a day. Insulin Dep? Yes - lidocaine-prilocaine (EMLA) 2.5-2.5 % cream APPLY TO AFFECTED AREA NEEDED PRIOR TO CHEMOTHERAPY - Blood-Glucose Meter 1 Each three times daily. Please match the test strips and lancets - sildenafil (REVATIO) 20 mg tablet Take 3-5 tablets by mouth once daily as needed. 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 Normal [facility] CNPDana 05-01-2025 STEPHENIE Telephone (WILFRED) -------- EDITHYAMILKA ([id number]) 1965 M Date Time Provider Department 05/01/25 NAJMA BLOOM During your visit today, we recorded the following information about you: Laura Camacho 05/01/2025 12:44 PM Signed Patient called and wanted to discuss with Kamlesh Bloom about starting the process with disability. He said he is now ready and would like a call back to discuss it more. There was no available appointments this week to schedule. Najma Young DO 05/01/2025 8:50 PM Signed Pt should call social security to let them know he plans to apply for disability. When I get the paperwork, she should make an appt so we can fill them out DO Magdaleno Everett Janie, MA 05/05/2025 2:41 PM Signed Patient informed. Criss Devi MA Allergies As of Date: 05/01/2025 Noted Allergy Reaction ASPARTAME 06/05/2020 5 - Intolerance Comments: Severe headache BACTRIM (SULFAMETHOXAZOLE-TRIMET H*07/18/2016 4 - Hives 5 - Intolerance Comments: Reaction: gas Sensitivity: Intolerance. Sensitivity: Intolerance BIAXIN (CLARITHROMYCIN) 07/18/2016 16 - Unknown Comments: Indigestion/gas INFLUENZA VACCINE TRI-SP 09-10 10/29/2018 16 - Unknown Comments: Flu MONOSODIUM GLUTAMATE 05/25/2024 6 - Diarrhea MONOSODIUM GLUTAMATE (MSG) 06/05/2020 5 - Intolerance Comments: Severe headache PANTOPRAZOLE 02/01/2021 6 - Diarrhea SULFA (SULFONAMIDE ANTIBIOTICS) 07/18/2016 2 - Rash 4 - Hives CLINDAMYCIN HCL 07/18/2016 6 - Diarrhea 8 - GI Upset 11 - Vomiting Comments: Reaction: Nausea/vomiting/diarrhea Other Reaction: stomach cramps Sensitivity: Intolerance Date Reviewed: 04/27/2025 Reviewed by: Eusebio Gutierrez LPN - Fully Assessed Prescriptions as of 05/05/2025 - metoprolol tartrate, short acting, (LOPRESSOR) 25 mg tablet Take 1 tablet by mouth every 12 hours. - gabapentin (NEURONTIN) 600 mg tablet Take 1 tablet by mouth three times a day for 90 days. - furosemide (LASIX) 40 mg tablet Take 1 tablet by mouth once daily. - DULoxetine (CYMBALTA) 60 mg capsule Take 1 capsule by mouth two times a day. - furosemide (LASIX) 40 mg tablet TAKE 1 TABLET DAILY - rosuvastatin (CRESTOR) 40 mg tablet TAKE 1 TABLET DAILY - semaglutide (OZEMPIC) 2 mg/dose (8 mg/3 mL) pen injector Inject 2 mg subcutaneously one time a week. - metFORMIN 750 mg tablet Take 1 tablet by mouth two times a day with meals. - glimepiride (AMARYL) 4 mg tablet TAKE 1 TABLET TWICE A DAY WITH MEALS - albuterol HFA (PROVENTIL HFA, VENTOLIN HFA) 90 mcg/actuation inhaler Inhale 2 puffs as instructed every 4 hours as needed for wheezing/shortness of breath. - sodium bicarbonate 650 mg tablet Take 2 tablets by mouth two times a day. - lisinopril (ZESTRIL) 5 mg tablet Take 1 tablet by mouth once daily. - ergocalciferol 50,000 unit capsule (VITAMIN D2, DRISDOL) Take 1 capsule by mouth one time a week. - apixaban (ELIQUIS) 5 mg tab(s) Take 1 tablet by mouth two times a day. - acetaminophen (TYLENOL) 325 mg tablet Take 650 mg by mouth every 6 hours as needed. - insulin glargine (LANTUS SOLOSTAR U-100 INSULIN) 100 unit/mL (3 mL) Inject 30 Units subcutaneously every morning. - dilTIAZem CD (CARDIZEM CD, CARTIA XT) 120 mg 24 hr capsule Take 1 capsule by mouth once daily. - blood sugar diagnostic ([employer] VERIO TEST STRIPS) test strip 1 Strip two times a day. Use with blood glucose test two times a day. Insulin Dep? No - dapagliflozin propanediol (FARXIGA) 10 mg tablet Take 1 tablet by mouth daily with breakfast. - SITagliptin phosphate (JANUVIA) 100 mg tablet Take 1 tablet by mouth once daily. - allopurinol (ZYLOPRIM) 100 mg tablet take 1 tablet twice a day - lancets (ONETOUCH DELICA PLUS LANCET) 33 gauge Use with blood glucose test three times a day. Insulin Dep? Yes - blood sugar diagnostic (ONETOUCH VERIO TEST STRIPS) test strip Use with blood glucose test three times a day. Insulin Dep? Yes - lidocaine-prilocaine (EMLA) 2.5-2.5 % cream APPLY TO AFFECTED AREA NEEDED PRIOR TO CHEMOTHERAPY - Blood-Glucose Meter 1 Each three times daily. Please match the test strips and lancets - sildenafil (REVATIO) 20 mg tablet Take 3-5 tablets by mouth once daily as needed. 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 Normal [facility] CNCOon 04-27-2025 CNCO Letter Text Normal [facility] CNOVon 04-27-2025 CNOV Office Visit (CARDMM ) -------- YAMILKA SHARMA ([id number]) 1965 M Date Time Provider Department 04/27/25 9:00 AM OSIRIS PARIS During your visit today, we recorded the following information about you: Pulse Blood pressure Weight Height 72/minute 108/70 124.1 kg 1.829 m Osiris Paris APRN.CNP 04/27/2025 2:56 PM Signed [facility] [place] Osiris Kimbrough Department of Cardiovascular Medicine SECTION OF CLINICAL CARDIOLOGY OUTPATIENT VISIT DATE April 27, 2025 OUTPATIENT VISIT TYPE ESTABLISHED PRIMARY CARE PHYSICIAN: Najma Bloom [address] [place] [id number] REFERRING PHYSICIAN: No referring provider defined for this encounter. CHIEF COMPLAINT: Follow Up (Edema/DizzinessEKG 12/02/24/SHARON 08/16/24 Chetan/Stress 02/26/23/ZIO 02/18/23/ECHO 01/14/23) HISTORY OF PRESENT ILLNESS: Mr. Sharma is a 59 year old male with HTN, HLD, vitamin d deficiency, CKE 3b, large Bcell lymphoma remission x 5 years who presents today for a cardiovascular medicine follow-up visit last seen by Dr Benton 07/2024 and no changes were made at that time. I last saw him 01/2024. . The patient is a 59-year-old male with a history of hypertension, hypertriglyceridemia, and T2DM, presenting for follow-up. The patient reports feeling not too bad overall and denies experiencing chest pain, dyspnea, or leg swelling. He notes occasional lightheadedness when standing up quickly, which resolves shortly thereafter. He monitors his blood pressure at home, noting readings slightly higher than today's, but still within a similar range. He mentions that his blood pressure has significantly improved from previous readings of approximately 200/200 mmHg. He follows up with Dr. Bloom in May. His last cholesterol panel was about a year ago, with triglycerides reportedly at 995 mg/dL. He is scheduled for upcoming labs. He follows a diet rich in fruits, vegetables, and proteins, consuming melons, berries, and cherries. He has a history of cancer. He is currently taking rosuvastatin. Subjective PAST MEDICAL HISTORY Diagnosis Date Acute exacerbation of chronic obstructive airways disease (HCC) Rx for augmentin, symptomatic care as needed. Patient denies COPD, asthma, uses an inhaler PRN usually about once a year with hot weather Anemia Depression Diffuse large B cell lymphoma ([facility]) 07/14/2019 Encounter for screening for malignant neoplasm of prostate Essential hypertension 05/26/2024 continue Lisinopril Hydronephrosis Hydronephrosis with ureteral stricture Hypomagnesemia 10/30/2019 Nausea and vomiting 01/09/2023 Obesity, Class II, BMI 35-39.9 12/15/2022 DEISI (obstructive sleep apnea) mild and no CPAP Paroxysmal atrial fibrillation ([facility]) 01/10/2023 Prostatitis 01/09/2023 Sepsis due to gram-negative UTI ([facility]) 10/25/2019 Thrombocytopenia Type 2 diabetes mellitus ([facility]) 05/26/2024 continue current meds Ureteral obstruction, left Urinary tract infection Vitamin D deficiency 01/09/2023 PAST SURGICAL HISTORY Procedure Laterality Date AMPUTATION TOE,MT-P JT Right 05/2024 right great toe - [place] [facility] [place] ARTHROTOMY W/MENISCUS REPAIR KNEE Left 07/26/2024 [place] [facility] [place]ONE MARRO ASPIRATE AND BIOPSY 07/20/2019 CYSTOSCOPY 2019 KNIFE,CARPAL TUNNEL,[id number] Bilateral Carpal Tunnel Surgery 06/10/2013 NEPHROSTOMY TUBE 06/2019 PAST SURGICAL HISTORY OF 2013 temporal arterial biopsy PAST SURGICAL HISTORY OF 2013 sinus scraping, deviated septum repair PAST SURGICAL HISTORY OF Right PURPLE POWER PORT RIGHT CHEST PAST SURGICAL HISTORY OF Right TESTICLE REMOVED PAST SURGICAL HISTORY OF 02/19/2021 ureter stent Social History Tobacco Use Smoking status: Former Current packs/day: 0.00 Average packs/day: 2.5 packs/day for 31.0 years (77.5 ttl pk-yrs) Types: Cigarettes Start date: 10/26/1983 Quit date: 10/26/2014 Years since quittin.5 Smokeless tobacco: Never Tobacco comments: cigarette; Start date: 1983; Not interested in quitting smoking; Amount: 10-19 cigs/day; quit 06/2015; Tobacco modified 11/15/2015; Tobacco reviewed with patient 11/15/2015 Vaping Use Vaping status: Never Used Substance Use Topics Alcohol use: Yes Comment: occasional Drug use: No FAMILY HISTORY Problem Relation Age of Onset other (Other inflammatory connective disorder) Mother Scleroderma other (Respiratory disorder) Mother other (Rheumatologic disorder) Mother other (Systemic lupus) Mother Heart Father Diabetes Father Diabetes Brother Diabetes Brother Cancer No Family History ALLERGIES: ALLERGIES Allergen Reactions Aspartame Intolerance Severe headache Bactrim [Sulfametho* Hives, Intolerance Reaction: gas Sensitivity: Intolerance. Sensitivity: Intolerance Biaxin [Clarithromy* Unknown Indigestion/gas Influenza Vaccin (more content not included)... Normal [facility] CNPNon 03-28-2025 CNPN Telephone (WILFRED) -------- YAMILKA SHARMA ([id number]) 1965 M Date Time Provider Department 03/28/25 NAJMA BLOOM During your visit today, we recorded the following information about you: Sonia Coffey MA 03/28/2025 11:00 AM Signed Patient called stating he needs a rx of cymbalta LU to [facility] in [place] for his legs. I don't see that we have ever prescribed this please advise Sonia Coffey MA Allergies As of Date: 03/28/2025 Noted Allergy Reaction ASPARTAME 06/05/2020 5 - Intolerance Comments: Severe headache BACTRIM (SULFAMETHOXAZOLE-TRIMET H*07/18/2016 4 - Hives 5 - Intolerance Comments: Reaction: gas Sensitivity: Intolerance. Sensitivity: Intolerance BIAXIN (CLARITHROMYCIN) 07/18/2016 16 - Unknown Comments: Indigestion/gas INFLUENZA VACCINE TRI-SP 09-10 10/29/2018 16 - Unknown Comments: Flu MONOSODIUM GLUTAMATE 05/25/2024 6 - Diarrhea MONOSODIUM GLUTAMATE (MSG) 06/05/2020 5 - Intolerance Comments: Severe headache PANTOPRAZOLE 02/01/2021 6 - Diarrhea SULFA (SULFONAMIDE ANTIBIOTICS) 07/18/2016 2 - Rash 4 - Hives CLINDAMYCIN HCL 07/18/2016 6 - Diarrhea 8 - GI Upset 11 - Vomiting Comments: Reaction: Nausea/vomiting/diarrhea Other Reaction: stomach cramps Sensitivity: Intolerance Date Reviewed: 03/06/2025 Reviewed by: Justina Tuttle, RN - Fully Assessed Reason for Visit: Medication Question [3748] Visit Diagnosis:Chronic pain syndrome [G89.4] Order(s):DULoxetine (CYMBALTA) 60 mg capsuleTake 1 capsule by mouth two times a day.Disp: 60 capsuleRfl: 0 Prescriptions as of 03/28/2025 - DULoxetine (CYMBALTA) 60 mg capsule Take 1 capsule by mouth two times a day. - semaglutide (OZEMPIC) 2 mg/dose (8 mg/3 mL) pen injector Inject 2 mg subcutaneously one time a week. - metFORMIN 750 mg tablet Take 1 tablet by mouth two times a day with meals. - metoprolol tartrate, short acting, (LOPRESSOR) 25 mg tablet Take 1 tablet by mouth every 12 hours. - glimepiride (AMARYL) 4 mg tablet TAKE 1 TABLET TWICE A DAY WITH MEALS - albuterol HFA (PROVENTIL HFA, VENTOLIN HFA) 90 mcg/actuation inhaler Inhale 2 puffs as instructed every 4 hours as needed for wheezing/shortness of breath. - sodium bicarbonate 650 mg tablet Take 2 tablets by mouth two times a day. - gabapentin (NEURONTIN) 600 mg tablet Take 1 tablet by mouth three times a day for 90 days. - lisinopril (ZESTRIL) 5 mg tablet Take 1 tablet by mouth once daily. - ergocalciferol 50,000 unit capsule (VITAMIN D2, DRISDOL) Take 1 capsule by mouth one time a week. - furosemide (LASIX) 40 mg tablet Take 1 tablet by mouth once daily. - apixaban (ELIQUIS) 5 mg tab(s) Take 1 tablet by mouth two times a day. - acetaminophen (TYLENOL) 325 mg tablet Take 650 mg by mouth every 6 hours as needed. - insulin glargine (LANTUS SOLOSTAR U-100 INSULIN) 100 unit/mL (3 mL) Inject 30 Units subcutaneously every morning. - dilTIAZem CD (CARDIZEM CD, CARTIA XT) 120 mg 24 hr capsule Take 1 capsule by mouth once daily. - blood sugar diagnostic ([employer] VERIO TEST STRIPS) test strip 1 Strip two times a day. Use with blood glucose test two times a day. Insulin Dep? No - dapagliflozin propanediol (FARXIGA) 10 mg tablet Take 1 tablet by mouth daily with breakfast. - SITagliptin phosphate (JANUVIA) 100 mg tablet Take 1 tablet by mouth once daily. - allopurinol (ZYLOPRIM) 100 mg tablet take 1 tablet twice a day - lancets (ONETOUCH DELICA PLUS LANCET) 33 gauge Use with blood glucose test three times a day. Insulin Dep? Yes - blood sugar diagnostic (ONETOUCH VERIO TEST STRIPS) test strip Use with blood glucose test three times a day. Insulin Dep? Yes - rosuvastatin (CRESTOR) 40 mg tablet take 1 tablet daily - lidocaine-prilocaine (EMLA) 2.5-2.5 % cream APPLY TO AFFECTED AREA NEEDED PRIOR TO CHEMOTHERAPY - Blood-Glucose Meter 1 Each three times daily. Please match the test strips and lancets - sildenafil (REVATIO) 20 mg tablet Take 3-5 tablets by mouth once daily as needed. 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 (more content not included)... Normal [facility] CNOVon 02-28-2025 CNOV Office Visit (ADRIANA WONG) -------- EDITHYAMILKA ([id number]) 1965 M Date Time Provider Department 02/28/25 9:20 AM NAJMA BLOOM During your visit today, we recorded the following information about you: Pulse Respiration Blood pressure Weight 73/minute 18/minute 128/60 122.5 kg Height 1.829 m Najma Bloom DO 03/26/2025 3:16 PM Signed Subjective HPI David is a 59-year-old male with his here for f/u DM. Diabetes Mellitus: - Recent A1c: 10.3. - Reports consistently elevated blood glucose levels, even after consuming minimal carbohydrates (e.g., salads, pure protein). - Suspects glucometer errors due to high blood glucose readings; battery issues noted. - Currently taking metformin 500 mg BID; inquires about increasing dosage. - Ozempic 1 mg weekly; experiencing supply issues, requests prescription transfer to [facility]. - Reports Ozempic effectively suppresses appetite. - Weight stable; slight gain over holidays. - Diet includes low-carb options such as keto bread and keto cheesecake; attempts to monitor carbohydrate intake. - Consumes fruits and vegetables, with a preference for melons. Atrial Fibrillation: - Taking Eliquis. - Metoprolol 25 mg daily; experiencing prescription refill issues, requests assistance. Cancer: - Cancer-free for 6 years; no longer under Dr. Waterman's care. Diabetes Mellitus: - Recent A1c: 10.3. - Reports consistently elevated blood glucose levels, even after consuming minimal carbohydrates (e.g., salads, pure protein). - Suspects glucometer errors due to high blood glucose readings; battery issues noted. - Currently taking metformin 500 mg BID; inquires about increasing dosage. - Ozempic 1 mg weekly; experiencing supply issues, requests prescription transfer to [facility]. - Reports Ozempic effectively suppresses appetite. - Weight stable; slight gain over holidays. - Diet includes low-carb options such as keto bread and keto cheesecake; attempts to monitor carbohydrate intake. - Consumes fruits and vegetables, with a preference for melons. Atrial Fibrillation: - Taking Eliquis. - Metoprolol 25 mg daily; experiencing prescription refill issues, requests assistance. Cancer: - Cancer-free for 6 years; no longer under Dr. Waterman's care. Here with his and daughter Review of Systems Constitutional: Negative for chills, diaphoresis, fever, malaise/fatigue and weight loss. HENT: Negative for ear pain and hearing loss. Eyes: Negative for blurred vision and double vision. Respiratory: Negative for cough and shortness of breath. Cardiovascular: Negative for chest pain, palpitations and leg swelling. Gastrointestinal: Negative for constipation, diarrhea and heartburn. Genitourinary: Negative for dysuria and frequency. Musculoskeletal: Negative for back pain, falls, joint pain and myalgias. Skin: Negative for itching and rash. Neurological: Negative for dizziness, weakness and headaches. Endo/Heme/Allergies: Does not bruise/bleed easily. Psychiatric/Behavioral: Negative for depression and substance abuse. The patient does not have insomnia. ALLERGIES Allergen Reactions Aspartame Intolerance Severe headache Bactrim [Sulfametho* Hives, Intolerance Reaction: gas Sensitivity: Intolerance. Sensitivity: Intolerance Biaxin [Clarithromy* Unknown Indigestion/gas Influenza Vaccine T* Unknown Flu Monosodium Glutamate Diarrhea Monosodium Glutamat* Intolerance Severe headache Pantoprazole Diarrhea Sulfa (Sulfonamide * Rash, Hives Clindamycin Hcl Diarrhea, GI Upset, Vomiting Reaction: Nausea/vomiting/diarrhea Other Reaction: stomach cramps Sensitivity: Intolerance Current Outpatient Medications Medication Sig Dispense Refill glimepiride (AMARYL) 4 mg tablet TAKE 1 TABLET TWICE A DAY WITH MEALS 180 tablet 3 albuterol HFA (PROVENTIL HFA, VENTOLIN HFA) 90 mcg/actuation inhaler Inhale 2 puffs as instructed every 4 hours as needed for wheezing/shortness of breath. 17 g 4 sodium bicarbonate 650 mg tablet Take 2 tablets by mouth two times a day. 360 tablet 3 gabapentin (NEURONTIN) 600 mg tablet Take 1 tablet by mouth three times a day for 90 days. 270 tablet 0 lisinopril (ZESTRIL) 5 mg tablet Take 1 tablet by mouth once daily. 90 tablet 3 ergocalciferol 50,000 unit capsule (VITAMIN D2, DRISDOL) Take 1 capsule by mouth one time a week. 12 capsule 3 furosemide (LASIX) 40 mg tablet Take 1 tablet by mouth once daily. 90 tablet 0 metFORMIN (GLUCOPHAGE) 500 mg tablet TAKE 1 TABLET TWICE A DAY WITH MEALS 180 tablet 3 apixaban (ELIQUIS) 5 mg tab(s) Take 1 tablet by mouth two times a day. 180 tablet 3 acetaminophen (TYLENOL) 325 mg tablet Take 650 mg by mouth every 6 hours as needed. semaglutide (OZEMPIC) 1 mg/dose (4 mg/3 mL) pen Inject 1 mg subcutaneously one time a week. 9 mL 3 insulin glargine (LANTUS SOLOSTAR U-100 (more content not included)... Normal [facility] HEMOGLOBIN A1C (POC)on 02-28 HbA1c (Bld) [Mass fraction] 10.3 % Abnormal 4.3 - 5.6 % [facility] Comment on above: Location:[facility], [address] [place] [address], [address] Point of care (POC) Hemoglobin A1c (HGBA1C) testing is intended to assess glucose control and provide a management tool for patients known to have diabetes and their healthcare providers. Target HGBA1C levels may depend on specific clinical circumstances. POC HGBA1C is not intended for use as a diagnostic or screening test; laboratory-based testing should be used for diagnostic purposes. The following information is supplemental and may not be applicable to specific diabetes management situations: The POC device diesel roller operator provides a normal range of 4.2% to 6.5% for the HGBA1C POC test. However, the [place] [employer] guidelines indicate that patients with HGBA1C in the range of 5.7% to 6.4% are at increased risk for development of diabetes and that intervention by lifestyle modification may be beneficial. A HGBA1C level greater than or equal to 6.5% is considered diagnostic of diabetes, pending confirmatory testing. Use of HGBA1C testing to evaluate glucose control may not be appropriate for patients with hemoglobin variants or other conditions (e.g. anemia) that alter red blood cell lifespan. Interpretation and review of laboratory results Abnormal [facility] CNOVSPon 12-12-2024 CNOVSP Visit (SP) Office (HEMMED) -------- KIMMYBINTAYAMILKA Duval ([id number]) 1965 M Date Time Provider Department 12/12/24 9:40 AM MARTELL WATERMAN HEMDELL During your visit today, we recorded the following information about you: Temperature Pulse Respiration Blood pressure 98 degrees 83/minute 18/minute 128/85 Weight 125.1 kg Martell Waterman MD 12/12/2024 8:10 PM Signed The patient is a 57-year-old male. Presented with a left sided pelvic mass 5 cm in size with obstruction to the distal ureter. Biopsy consistent with diffuse large B-cell lymphoma. Initially required a percutaneous nephrostomy to be placed. DiagnosedIn June 2019. The patient was given chemotherapy with Rituxan CHOP. Completed 6 cycles. PET scan after completion of therapy showed improvement but persistent FDG uptake. The options were discussed with the patient who did not want any additional therapy. The patient was subsequently given radiation to the area of PET avid disease. Received a total of 54 Patel in 27 fractions between 01/13/2020 and 03/12/2020. The patient subsequently developed new cystic lesion in the posterior aspect of the bladder measuring 5 x 5.3 cm in size. There was no other areas of lymphadenopathy. PET scan done for further evaluation dated 05/14/2022 showed hypermetabolic uptake in the pelvic mass. No other area of uptake identified. This area was biopsied. Biopsy dated 05/23/2022 showed fibroinflammatory changes without any evidence of malignancy. The patient was complaining of increased frequency of urination. MRI of the pelvis subsequently performed showed a lesion extending into the inferior right bladder felt to be inflammatory in nature. He was seen by urology. They felt that this was a pelvic abscess and put him on a 2-week course of oral Cipro. Repeat imaging showed complete resolution of the abscess cavity. Patient was hospitalized for right-sided hydronephrosis. Also had COVID-19 as of 12/14/2022. Currently has a right ureteric stent placed. Resolution of the hydronephrosis noted. Etiology of the hydronephrosis felt to be due to prostatic hyperplasia. S/p TURBT. CT scan of the abdomen and pelvis done during his stay for abdominal pain dated 12/15/2022 showed bilateral hydronephrosis which is secondary to prostatic hyperplasia/BPH. This was treated with a nephrostomy tube placement followed by a subsequent TURP. Pathology of the prostatic tissue reviewed. No evidence of any malignancy identified. Repeat CAT scans dated 02/16/2023 showed multiple lymph nodes borderline enlarged in the mediastinum the largest in the right hilum measuring 1.8 x 1.3 cm in size previously was 1.2 x 1 cm in size. No evidence of any other disease. No evidence of any retroperitoneal lymphadenopathy. Also had COVID-19 as of 12/14/2022. Repeat CAT scans of the chest abdomen pelvis dated 08/21/2023 showed atelectatic changes in both lung bases with some scarring. Shotty perivascular/aortocaval lymphadenopathy which is unchanged from the scan 6 months ago. No evidence of any breakthrough disease. The ureteric stent was removed. Removal was in August 2023. Repeat CAT scans of the chest and pelvis from 02/25/2024 shows no evidence of relapse. However dilated collecting system and hydronephrosis again noted in the right side. CT scans from [facility] from 12/05/24 negative for LNpathy or masses. On examination:BP 128/85 Pulse 83 Temp 36.7 ?C (98 ?F) (Temporal) Resp 18 Wt 125.1 kg (275 lb 12.7 oz) SpO2 98% BMI 37.40 kg/m? The patient was awake alert oriented. Didn't appear to be in acute distress. HEENT: No pallor, icterus, cyanosis, oral cavity shows no evidence of mucositis, lesions, or ulcers. Trachea midline. No JVD, carotid bruit, thyromegaly, cervical lymphadenopathy or supra-infraclavicular lymphadenopathy. CVS: S1-S2 heard no S3 no murmurs or pericardial rub. No peripheral edema. Lungs: Chest wall nontender. No dullness to percussion. Clear to auscultation bilaterally. No rhonchi or rales noted. No pleural rub or at it sounds noted. Abdomen: Normal inspection, nondistended no dilated veins. Soft nontender no organomegaly. No palpable masses noted. Hem/ Lymph: No peripheral lymphadenopathy or any palpable masses. Neuro Exam: High mental functions were normal. Cranial nerves II through XII are normal. No gross abnormality noted on sensory or motor system exam. Musculoskeletal: No joint deformities noted. No evidence of synovitis, swelling or tenderness in the joints or bursitis. Skin: No evidence to suggest any bruising, ecchymosis, petechiae and symptoms of hand-foot syndrome. Latest Reference Range AND Units 12/05/24 08:47 Sodium 136 - 144 mmol/L 135 (L) Potassium 3.7 - 5.1 mmol/L 4.7 Chloride 98 - 107 mmol/L 100 CO2 22 - 30 mmol/L 26 BUN 9 - 24 mg/dL 49 (H) Creatinine 0.73 - 1.22 mg/dL 1.64 (H) Glucose 74 - 99 mg (more content not included)... Normal [facility] 25(OH)D3 [facility] 2024 25-hydroxyvitamin D3 [Mass/Vol] 65.3 ng/mL Normal 31.0-80.0 [facility] Comment on above: Order Comment: Speci men Type: BLOOD SPECIMEN Ordering Facility: [facility] Address: [address] [place] [address] Result Comment: Clas sification of 25 [place] Vitamin D status: Deficiency/Insufficiency: < or = 30 ng/ml. Sufficiency/Optimal Levels: 31-80 ng/mL Toxicity: > 100 ng/mL. Test performed by chemiluminescent immunoassay. Performed By: #### 1 989-3 #### [facility] CLIA [id number] [address] [place] [address] [place] CBC W Auto Differential pane l (Bld)on 12-05-2024 Basophils (Bld) [#/Vol] 0.05 10*3/uL [facility] Basophils/100 WBC (Bld) 0.7 % [facility] Differential cell count method Nom (Bld) Auto [facility] Eosinophils (Bld) [#/Vol] 0.35 10*3/uL [facility] Eosinophils/100 WBC (Bld) 4.6 % [facility] Erythrocyte distribution width (RBC) [Ratio] 14.8 % 11.5 - 15.0 % [facility] Hematocrit (Bld) [Volume fraction] 41.1 % 39.0 - 51.0 % [facility] Hemoglobin (Bld) [Mass/Vol] 13.1 g/dL 13.0 - 17.0 g/dL [facility] Immature granulocytes (Bld) [#/Vol] 0.03 10*3/uL [facility] Immature granulocytes/100 WBC (Bld) 0.4 % [facility] Interpretation and review of laboratory results Abnormal [facility] Lymphocytes (Bld) [#/Vol] 1.96 10*3/uL [facility] Lymphocytes/100 WBC (Bld) 25.8 % [facility] MCH (RBC) [Entitic mass] 25.2 pg Low 26.0 - 34.0 pg [facility] MCHC (RBC) [Mass/Vol] 31.9 g/dL 30.5 - 36.0 g/dL [facility] MCV (RBC) [Entitic vol] 79 fL Low 80.0 - 100.0 fL [facility] Monocytes (Bld) [#/Vol] 0.58 10*3/uL [facility] Monocytes/100 WBC (Bld) 7.6 % C [facility] Neutrophils (Bld) [#/Vol] 4.62 10*3/uL [facility] Neutrophils/100 WBC (Bld) 60.9 % [facility] Nucleated RBC (Bld) [#/Vol] [facility] Nucleated RBC/100 WBC (Bld) [Ratio] 0 % /100 WBC [facility] Platelet mean volume (Bld) [Entitic vol] 11.4 fL 9.0 - 12.7 fL [facility] Platelets (Bld) [#/Vol] 120 10*3/uL Low [facility] RBC (Bld) [#/Vol] 5.2 10*6/uL 4.20 - 6.0 0 m/uL [facility] WBC (Bld) [#/Vol] 7.59 10*3/uL [facility] Basophils (Bld) [#/Vol] 0.05 10*3/uL Normal <0.11 [facility] Comment on above: Order Comment: Speci men Type: BLOOD SPECIMEN Ordering Facility: [facility] Address: [address] [place] [address] Performed By: #### 1 9123-9, 3083-10, 41838-5 #### [facility] CLIA [id number] [address] [place] [address] [place] Basophils/100 WBC (Bld) 0.7 % Normal C [facility] Comment on above: Order Comment: Speci men Type: BLOOD SPECIMEN Ordering Facility: [facility] Address: [address] [place] [address] Performed By: #### 1 9123-9, 3083-10, #### [facility] CLIA [id number] [address] [place] [address] [place] Differential cell count method Nom (Bld) Auto Normal [facility] Comment on above: Order Comment: Speci men Type: BLOOD SPECIMEN Ordering Facility: [facility] Address: [address] [place] [address] Performed By: #### 1 9123-9, 3083-10, 15885-0 #### [facility] CLIA [id number] [address] [place] [address] [place] Eosinophils (Bld) [#/Vol] 0.35 10*3/uL Normal <0.46 [facility] Comment on above: Order Comment: Speci men Type: BLOOD SPECIMEN Ordering Facility: [facility] Address: [address] [place] [address] Performed By: #### 1 9123-9, 3083-10, 92557-9 #### [facility] CLIA [id number] [address] [place] [address] [place] Eosinophils/100 WBC (Bld) 4.6 % Normal [facility] Comment on above: Order Comment: Speci men Type: BLOOD SPECIMEN Ordering Facility: [facility] Address: [address] [place] [address] Performed By: #### 1 9123-9, 30801-24, 46735-5 #### [facility] CLIA [id number] [address] [place] [address] [place] Erythrocyte distribution width (RBC) [Ratio] 14.8 % Normal 11.5-15.0 [facility] Comment on above: Order Comment: Speci men Type: BLOOD SPECIMEN Ordering Facility: [facility] Address: [address] [place] [address] Performed By: #### 1 9123-9, 30801-24, 53584-4 #### [facility] CLIA [id number] [address] [place] [address] [place] Hematocrit (Bld) [Volume fraction] 41.1 % Normal 39.0-51.0 [facility] Comment on above: Order Comment: Speci men Type: BLOOD SPECIMEN Ordering Facility: [facility] Address: [address] [place] [address] Performed By: #### 1 9123-9, 3083-10, 07629-5 #### [facility] CLIA [id number] [address] [place] [address] [place] Hemoglobin (Bld) [Mass/Vol] 13.1 g/dL Normal 13.0-17.0 [facility] Comment on above: Order Comment: Speci men Type: BLOOD SPECIMEN Ordering Facility: [facility] Address: [address] [place] [address] Performed By: #### 1 9123-9, 30801-24, 35384-4 #### [facility] CLIA [id number] [address] [place] [address] [place] Immature granulocytes (Bld) [#/Vol] 0.03 10*3/uL Normal <0.10 [facility] Comment on above: Order Comment: Speci men Type: BLOOD SPECIMEN Ordering Facility: [facility] Address: [address] [place] [address] Performed By: #### 1 9123-9, 3083-10, 67181-6 #### [facility] CLIA [id number] [address] [place] [address] [place] Immature granulocytes/100 WBC (Bld) 0.4 % Normal [facility] Comment on above: Order Comment: Speci men Type: BLOOD SPECIMEN Ordering Facility: [facility] Address: [address] [place] [address] Performed By: #### 1 9123-9, 1, 18946-4 #### [facility] CLIA [id number] [address] [place] [address] [place] Lymphocytes (Bld) [#/Vol] 1.96 10*3/uL Normal 1.00-4.00 [facility] Comment on above: Order Comment: Speci men Type: BLOOD SPECIMEN Ordering Facility: [facility] Address: [address] [place] [address] Performed By: #### 1 9123-9, 3083-10, #### [facility] CLIA [id number] [address] [place] [address] [place] Lymphocytes/100 WBC (Bld) 25.8 % Normal [facility] Comment on above: Order Comment: Speci men Type: BLOOD SPECIMEN Ordering Facility[facility] Address: [address] [place] [address] Performed By: #### 1 9123-9, 30801-24, 79075-7 #### [facility] CLIA [id number] [address] [place] [address] [place] MCH (RBC) [Entitic mass] 25.2 pg Low 26.0-34.0 [facility] Comment on above: Order Comment: Speci men Type: BLOOD SPECIMEN Ordering Facility: [facility] Address: [address] [place], [place] [address] Performed By: #### 1 9123-9, 30801-24, 97052-0 #### [facility] CLIA [id number] [address] [place] [address] MCHC (RBC) [Mass/Vol] 31.9 g/dL Normal 30.5-36.0 [facility] Comment on above: Order Comment: Speci men Type: BLOOD SPECIMEN Ordering Facility[facility] Address: [address] [place], [place] [address] Performed By: #### 1 9123-9, 3083-10, 10643-6 #### [facility] CLIA [id number] [address] [place] [address] [place] MCV (RBC) [Entitic vol] 79.0 fL Low 80.0-100.0 C [facility] Comment on above: Order Comment: Speci men Type: BLOOD SPECIMEN Ordering Facility[facility] Address: [address] [place] [address] Performed By: #### 1 9123-9, 3083-10, 38761-8 #### [facility] CLIA [id number] [address] [place] [address] [place] Monocytes (Bld) [#/Vol] 0.58 10*3/uL Normal <0.87 [facility] Comment on above: Order Comment: Speci men Type: BLOOD SPECIMEN Ordering Facility: [facility] Address: [address] [place] [address] Performed By: #### 1 9123-9, 30801-24, 05023-0 #### [facility] CLIA [id number] [address] [place] [address] Monocytes/100 WBC (Bld) 7.6 % [facility] Comment on above: Order Comment: Speci men Type: BLOOD SPECIMEN Ordering Facility: [facility] Address: [address] [id number] Performed By: #### 1 9123-9, 308-1, 73921-8 #### [facility] CLIA [id number] [address] [place] [address] [place] Neutrophils (Bld) [#/Vol] 4.62 10*3/uL Normal 1.45-7.50 [facility] Comment on above: Order Comment: Speci men Type: BLOOD SPECIMEN Ordering Facility: [facility] Address: [address] [place] [address] Performed By: #### 1 9123-9, 30801-24, 27630-1 #### [facility] CLIA [id number] [address] [place] [address] [place] Neutrophils/100 WBC (Bld) 60.9 % Normal [facility] Comment on above: Order Comment: Speci men Type: BLOOD SPECIMEN Ordering Facility: [facility] Address: [address] [place] [address] Performed By: #### 1 9123-9, 30801-24, 09650-6 #### [facility] CLIA [id number] [address] [place] [address] [place] Nucleated RBC (Bld) [#/Vol] 10*3/uL Normal <0.01 [facility] Comment on above: Order Comment: Speci men Type: BLOOD SPECIMEN Ordering Facility: [facility] Address: [address] [place], [place] [address] Performed By: #### 1 9123-9, 30801-24, 75763-9 #### [facility] CLIA [id number] [address] [place] [address] [place] Nucleated RBC/100 WBC (Bld) [Ratio] 0.0 /100 WBC Normal [facility] Comment on above: Order Comment: Speci men Type: BLOOD SPECIMEN Ordering Facility[facility] Address: [address] [place], [place] [address] Performed By: #### 1 9123-9, 3084-1, 98706-1 #### [facility] CLIA [id number] [address] [place] [address] [place] Platelet mean volume (Bld) [Entitic vol] 11.4 fL Normal 9.0-12.7 [facility] Comment on above: Order Comment: Speci men Type: BLOOD SPECIMEN Ordering Facility: [facility] Address: [address] [place], [place] [address] Performed By: #### 1 9123-9, 3084-1, 58595-2 #### [facility] CLIA [id number] [address] [place] [address] [place] Platelets (Bld) [#/Vol] 120 10*3/uL Low 150-400 [facility] Comment on above: Order Comment: Speci men Type: BLOOD SPECIMEN Ordering Facility[facility] Address: [address] [place] [address] Performed By: #### 1 9123-9, 3084-1, 19346-3 #### [facility] CLIA [id number] [address] [place] [address] [place] RBC (Bld) [#/Vol] 5.20 10*6/uL Normal 4.20-6.00 [facility] Comment on above: Order Comment: Speci men Type: BLOOD SPECIMEN Ordering Facility[facility] Address: [address] [place], [place] [address] Performed By: #### 1 9123-9, 3084-1, 79432-2 #### [facility] CLIA [id number] [address] [place] [address] [place] WBC (Bld) [#/Vol] 7.59 10*3/uL Normal 3.70-11.00 [facility] Comment on above: Order Comment: Speci men Type: BLOOD SPECIMEN Ordering Facility: [facility] Address: [address] [place] [address] Performed By: #### 1 9123-9, 3084-1, 56092-1 #### [facility] CLIA [id number] [address] [id number] [place] ABD/PEL WO IVCONon 2024 CT ABD/PEL WO IVCON * * *Final Report* * * DATE OF EXAM: Dec 05 2024 11:24AM [facility] 0531 - CT ABD/PEL WO IVCON / PROCEDURE REASON: Diffuse large B-cell 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) * * * * Physician Interpretation * * * * EXAMINATION: CT ABDOMEN AND PELVIS WITHOUT IV CONTRAST CLINICAL HISTORY: Lymphoma follow-up TECHNIQUE: CT of the abdomen and pelvis was performed using standard technique, scanning from just above the dome of the diaphragm to the upper thighs. IV Contrast: None CT Radiation dose: Integrated Dose-length product (DLP) for this visit = 1459 mGy*cm. CT Dose Reduction Employed: Automated exposure control(AEC) and iterative recon COMPARISON: CT abdomen pelvis 05/11/2024 and 02/25/2024 FINDINGS: LOWER CHEST: For a detailed findings of the intrathoracic contents, see dedicated report for CT chest performed on same date. HEPATOBILIARY: The liver and gallbladder are normal in attenuation with no contour-deforming abnormality. SPLEEN, PANCREAS, ADRENAL GLANDS: Stable 1.4 cm nodule of the left adrenal gland. Otherwise, spleen, pancreas and adrenal glands normal in attenuation with no contour-deforming abnormality. KIDNEYS, URETERS, BLADDER: The kidneys are normal in attenuation with no hydronephrosis and no calculus. Unchanged left renal atrophy. Ureters normal in course and caliber. The bladder is unremarkable when allowing for this unenhanced exam, with anatomy likely reflecting prior bladder hitch. PROSTATE, SEMINAL VESICLES: Unchanged scattered calcifications throughout the prostate. The seminal vesicles are symmetric. BOWEL: No evidence of obstruction. PERITONEAL/EXTRAPERITONE AL SPACE: No free air or free fluid. There is mild haziness of the mesenteric fat, which can be seen in patients with history of lymphoproliferative diseases. LYMPH NODES: Multiple nonenlarged lymph nodes are again noted throughout the retroperitoneum and are grossly unchanged from prior exam. No new lymphadenopathy is seen. Grossly unchanged 3.1 cm perirectal soft tissue nodule (12:146), and similar-appearing perianal nodule measuring 2.6 cm (12:153), both of uncertain etiology. VASCULAR: Not well assessed on this nonenhanced exam. ABDOMINAL WALL: Small fat-containing periumbilical hernia. MUSCULOSKELETAL: No suspicious osseous lesion. IMPRESSION: 1. When allowing for the unenhanced nature of this exam, no lymphadenopathy or evidence of metastatic disease seen within the abdomen or pelvis. 2. Additional chronic incidental findings as above. Grinder: PSCB Transcribe Date/Time: Dec 07 2024 5:38P Dictated by : VICTORINA PATTERSON MD This examination was interpreted and the report reviewed and electronically signed by: VICTORINA PATTERSON MD on Dec 07 2024 5:59PM EST [id number] Normal [facility] CT CHEST WO IVCONon 12-05-19 CT CHEST WO IVCON * * *Final Report* * * DATE OF EXAM: Dec 05 2024 11:24AM [facility] 0541 - CT CHEST WO IVCON / PROCEDURE REASON: Diffuse large B-cell 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) * * * * Physician Interpretation * * * * EXAMINATION: CHEST CT WITHOUT CONTRAST CLINICAL HISTORY: Diffuse large B-cell 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) Technique: Spiral CT acquisition of the chest from the thoracic inlet to the upper abdomen without contrast. MQ: [id number]_6 CT Radiation dose: Integrated Dose-length product (DLP) for this visit = 1459 mGy*cm CT Dose Reduction Employed: Automated exposure control(AEC) and iterative recon Comparison: 02/25/2024 RESULT: Limitations: None. Lines, tubes, and devices: Again seen is a Port-A-Cath within the subcutaneous tissues of the right upper chest, causing streak artifact, tip in right atrium. Lung parenchyma and airways: There is emphysema, with mild, diffuse bronchiectasis. Parenchymal scarring is again seen within the anterior segment of the left upper lobe, stable (series 7, image #51). Again seen is reticulation within the periphery of the lungs and lower lobes, bilaterally, suggesting interstitial disease/scarring, stable. A calcified granuloma is again seen within the superior segment of the left lower lobe. Additionally, there are stable subcentimeter pulmonary nodules. For example, there is a stable, approximately 3 mm subpleural nodule seen within the anterior segment of the right upper lobe (series 7, image #61). No new pulmonary nodule is identified. Pleural space: No pleural effusion. Lower neck, lymph nodes, and mediastinum: There are no pathologically enlarged axillary, mediastinal, or hilar lymph nodes. Heart, pericardium, and thoracic vessels: The heart is normal in size. There is a stable trace pericardial effusion. Atherosclerotic calcifications are present with thoracic aorta and coronary arteries. There is fatty hypertrophy of the intra-atrial septum. Bones and soft tissues: There is bilateral shoulder DJD. A loose body seen about the left shoulder. There is multilevel degenerative change seen within the visualized spine. No destructive bony lesion. Diffuse idiopathic skeletal hyperostosis. Upper abdomen: Please refer to separately dictated report for abdominal and pelvic findings. IMPRESSION: 1. Emphysema, with mild, diffuse bronchiectasis. Stable parenchymal scarring is seen within the anterior segment of the left upper lobe. Stable reticulation within the periphery of the lungs and lower lobes, bilaterally, suggesting interstitial disease/scarring. Stable subcentimeter pulmonary nodules. No new pulmonary nodule is identified. 2. No berto lymphadenopathy is seen within the chest. Grinder: PSCB Transcribe Date/Time: Dec 08 2024 6:06A Dictated by : RAMESH RIOS MD This examination was interpreted and the report reviewed and electronically signed by: RAMESH RIOS MD on Dec 08 2024 6:09AM EST [id number] Normal [facility] metabolic 2000 panelOrdered By: Rachel Faria on 12-05-2024 Albumin [Mass/Vol] 4.4 g/dL 3.9 - 4.9 g/dL [facility] ALP [Catalytic activity/Vol] 97 U/L 38 - 113 U/L [facility] ALT [Catalytic activity/Vol] 12 U/L 10 - 54 U/L [facility] Anion gap [Moles/Vol] 9 mmol/L 8 - 15 mmol/L [facility] AST [Catalytic activity/Vol] 10 U/L Low 14 - 40 U/L [facility] Bilirubin [Mass/Vol] 0.2 mg/dL 0.2 - 1 .3 mg/dL [facility] Calcium [Mass/Vol] 10.1 mg/dL 8.5 - 10. 2 mg/dL [facility] Chloride [Moles/Vol] 100 mmol/L 98 - 10 7 mmol/L [facility] CO2 [Moles/Vol] 26 mmol/L 22 - 30 mmol/L [facility] Creatinine [Mass/Vol] 1.64 mg/dL High 0.73 - 1.22 mg/dL [facility] GFR/1.73 sq M.predicted among non-blacks MDRD (S/P/Bld) [Vol rate/Area] 48 mL/min/{1.73_m2} Low - PINF [facility] Comment on above: Estimated Glomerular Filtration Rate (eGFR) is calculated using the 2020 CKD-EPI creatinine equation. This equation utilizes serum creatinine, sex, and age as parameters. The creatinine assay has traceable calibration to isotope dilution-mass spectrometry. Refer to KDIGO guidelines for clinical interpretation. In patients with unstable renal function, e.g. those with acute kidney injury, the eGFR may not accurately reflect actual GFR. Glucose [Mass/Vol] 289 mg/dL High 74 - 99 mg/dL [facility] Comment on above: The [place] Diabete s Association (ADA) provides guidance for cutoff values for fasting glucose and random glucose. The ADA defines fasting as no caloric intake for at least 8 hours. Fasting plasma glucose results between 100 to 125 mg/dL indicate increased risk for diabetes (prediabetes). Fasting plasma glucose results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 Normal [facility] CNOVon 08-16-2024 [facility] Office Visit (LIZ ) -------- YAMILKA SHARMA ([id number]) 1965 M Date Time Provider Department 08/16/24 10:00 AM VARGAS BENTON During your visit today, we recorded the following information about you: Pulse Blood pressure Weight Height 83/minute 112/62 116.7 kg 1.829 m Vargas Benton DO 08/16/2024 10:49 AM Signed [facility] OUTPATIENT VISIT DATE August 16, 2024 PRIMARY CARE PHYSICIAN: Najma Bloom [address] [place] [id number] HISTORY OF PRESENT ILLNESS: Mr. Sharma is a 59 year old male. The patient returns for follow-up secondary to a history of paroxysmal atrial fibrillation with coronary calcification suggesting least mild CAD, hypertension, hyperlipidemia, diabetes and long-term anticoagulation with Eliquis. He has recently had a toe removed as a result of infection that spread to the bone. This thankfully did not spread further. His hemoglobin A1c is now markedly improved. He denies chest discomfort, dyspnea, orthopnea, paroxysmal nocturnal dyspnea, palpitations, near-syncope, syncope, GI/ bleeding or melena. He states he cannot feel anything in his toes or feet. He and his are doing weekly checks of his feet. PLAN AND RECOMMENDATIONS: The patient remained stable without apparent symptoms that would suggest angina or cardiac compensation on his current optimal medical therapy. Heart rate, blood pressure and recent cholesterol profile are favorable if not excellent on the same. We have therefore made no additions or changes. Dietary and lifestyle modification was reemphasized to facilitate risk factor reduction and prevention of future cardiovascular events. We will look forward to reevaluating him in 6 months time. Vitals: BP 112/62 Pulse 83 Ht 182.9 cm (6') Wt 116.7 kg (257 lb 4.4 oz) SpO2 100% BMI 34.89 kg/m? Physical Exam Vitals reviewed. Constitutional: General: He is not in acute distress. Appearance: Normal appearance. He is well-developed. He is not diaphoretic. HENT: Head: Normocephalic and atraumatic. Right Ear: External ear normal. Left Ear: External ear normal. Nose: Nose normal. Eyes: General: No scleral icterus. Right eye: No discharge. Left eye: No discharge. Pupils: Pupils are equal, round, and reactive to light. Neck: Thyroid: No thyromegaly. Vascular: No carotid bruit or JVD. Cardiovascular: Rate and Rhythm: Normal rate and regular rhythm. Heart sounds: No murmur heard. No friction rub. No gallop. Pulmonary: Effort: Pulmonary effort is normal. No respiratory distress. Breath sounds: Normal breath sounds. No wheezing or rales. Abdominal: General: Bowel sounds are normal. Palpations: Abdomen is soft. Musculoskeletal: General: Normal range of motion. Cervical back: Neck supple. Skin: General: Skin is warm and dry. Capillary Refill: Capillary refill takes less than 2 seconds. Coloration: Skin is not pale. Neurological: Mental Status: He is alert and oriented to person, place, and time. Cranial Nerves: No cranial nerve deficit. Psychiatric: Mood and Affect: Mood normal. Mood is not anxious or depressed. Behavior: Behavior normal. Thought Content: Thought content normal. Judgment: Judgment normal. Review of Systems Constitutional: Positive for fatigue. Negative for activity change, appetite change and unexpected weight change. HENT: Negative for ear pain and trouble swallowing. Eyes: Negative for pain and visual disturbance. Respiratory: Negative for chest tightness and shortness of breath. Cardiovascular: Negative for chest pain, palpitations and leg swelling. Gastrointestinal: Negative for abdominal pain and blood in stool. Endocrine: Negative for cold intolerance and heat intolerance. Genitourinary: Negative for dysuria, hematuria and scrotal swelling. Musculoskeletal: Negative for arthralgias and myalgias. Skin: Negative for pallor and rash. Allergic/Immunologic: Negative for immunocompromised state. Neurological: Negative for dizziness, syncope and light-headedness. Hematological: Negative for adenopathy. Does not bruise/bleed easily. Psychiatric/Behavioral: Negative for sleep disturbance. The patient is not nervous/anxious. PAST MEDICAL HISTORY Diagnosis Date Acute exacerbation of chronic obstructive airways disease (HCC) Rx for augmentin, symptomatic care as needed. Patient denies COPD, asthma, uses an inhaler PRN usually about once a year with hot weather Anemia Depression Diffuse large B cell lymphoma (HCC) 07/14/2019 Encounter for screening for malignant neoplasm of prostate Essential hypertension 05/26/2024 continue Lisinopril Hydronephrosis Hydronephrosis with ureteral stricture Hypomagnesemia 10/30/2019 Nausea and vomiting (more content not included)... Normal [facility] CNOVon 08-12-2024 CNOV Office Visit (ORMDNA ) -------- YAMILKA SHARMA ([id number]) 1965 M Date Time Provider Department 08/12/24 11:30 AM AIDE QUINTANILLA During your visit today, we recorded the following information about you: Aide Quintanilla PA-C 08/12/2024 11:55 AM Signed POST OP Aide Quintanilla PA-C Department of Orthopaedics Orthopaedics [address] [address] Dept: [phone] Mr. Sharma presents today for his 10-14 day visit S/P left knee arthroscopy, synovectomy and partial menisectomy. DOS: 07/26/2024. History: his pain intensity is 0/10. His sharp pre-op pain has resolved. The patient denies swelling, warmth, discharge, drainage, fevers, chills, sweats. He reports no change in past medical AND surgical history, medications, allergies, social history, family history and review of systems since last visit. Radiographs: not applicable Physical Examination: Appropriate postop appearance No evidence of erythema, warmth, discharge or drainage Incision clean/dry/intact ROM: 0-110 Positive EHL, FHL, AT, GS, Quads, and HS Positive distal pulses Negative Moody's, calf tenderness or palpable cords Plan: Progressing as expected in the immediate post operative period. Letter to RTW on 08/15 given Post op care discussed, all questions answered. Follow up in 6 weeks for repeat clinical evaluation with Dr. Ryne Quintanilla PA-C Allergies As of Date: 08/12/2024 Noted Allergy Reaction ASPARTAME 06/05/2020 5 - Intolerance Comments: Severe headache BACTRIM (SULFAMETHOXAZOLE-TRIMET H*07/18/2016 4 - Hives 5 - Intolerance Comments: Reaction: gas Sensitivity: Intolerance. Sensitivity: Intolerance BIAXIN (CLARITHROMYCIN) 07/18/2016 16 - Unknown Comments: Indigestion/gas INFLUENZA VACCINE TRI-SP 09-10 10/29/2018 16 - Unknown Comments: Flu MONOSODIUM GLUTAMATE 05/25/2024 6 - Diarrhea MONOSODIUM GLUTAMATE (MSG) 06/05/2020 5 - Intolerance Comments: Severe headache PANTOPRAZOLE 02/01/2021 6 - Diarrhea SULFA (SULFONAMIDE ANTIBIOTICS) 07/18/2016 2 - Rash 4 - Hives CLINDAMYCIN HCL 07/18/2016 6 - Diarrhea 8 - GI Upset 11 - Vomiting Comments: Reaction: Nausea/vomiting/diarrhea Other Reaction: stomach cramps Sensitivity: Intolerance Date Reviewed: 08/12/2024 Reviewed by: Aide Quintanilla PA-C - Fully Assessed Reason for Visit: Post Op [174] Primary Visit Diagnosis:Post-operative state [Z98.890] Other Visit Diagnosis:S/P arthroscopic knee surgery [Z98.890] Prescriptions as of 08/12/2024 - amoxicillin-clavulanate potassium (AUGMENTIN) 875-125 mg per tablet Take 1 tablet by mouth every 12 hours for 10 days. - OZEMPIC 1 mg/dose (4 mg/3 mL) pen INJECT 1 MG UNDER THE SKIN WEEKLY - metFORMIN (GLUCOPHAGE) 500 mg tablet Take 1 tablet by mouth two times a day with meals. - lisinopril (ZESTRIL) 5 mg tablet Take 1 tablet by mouth once daily. - sodium bicarbonate 650 mg tablet Take 2 tablets by mouth two times a day. - blood sugar diagnostic ([employer] VERIO TEST STRIPS) test strip 1 Strip two times a day. Use with blood glucose test two times a day. Insulin Dep? No - dapagliflozin propanediol (FARXIGA) 10 mg tablet Take 1 tablet by mouth daily with breakfast. - gabapentin (NEURONTIN) 600 mg tablet Take 1 tablet by mouth three times a day for 90 days. - dilTIAZem CD (CARDIZEM CD, CARTIA XT) 120 mg 24 hr capsule Take 1 capsule by mouth once daily. - SITagliptin phosphate (JANUVIA) 100 mg tablet Take 1 tablet by mouth once daily. - allopurinol (ZYLOPRIM) 100 mg tablet take 1 tablet twice a day - insulin glargine (LANTUS SOLOSTAR U-100 INSULIN) 100 unit/mL (3 mL) Inject 30 Units subcutaneously every morning. - glimepiride (AMARYL) 4 mg tablet Take 4 mg by mouth two times a day with meals. - furosemide (LASIX) 40 mg tablet Take 1 tablet by mouth once daily. - lancets (ONETOUCH DELICA PLUS LANCET) 33 gauge Use with blood glucose test three times a day. Insulin Dep? Yes - blood sugar diagnostic (ONETOUCH VERIO TEST STRIPS) test strip Use with blood glucose test three times a day. Insulin Dep? Yes - DULoxetine (CYMBALTA) 60 mg capsule Take 1 capsule by mouth two times a day. - rosuvastatin (CRESTOR) 40 mg tablet take 1 tablet daily - lidocaine-prilocaine (EMLA) 2.5-2.5 % cream APPLY TO AFFECTED AREA NEEDED PRIOR TO CHEMOTHERAPY - metoprolol tartrate, short acting, (LOPRESSOR) 25 mg tablet Take 1 tablet by mouth every 12 hours. - ergocalciferol 50,000 unit capsule (VITAMIN D2, DRISDOL) TAKE 1 CAPSULE ONCE A WEEK - apixaban (ELIQUIS) 5 mg tab(s) Take 1 tablet by mouth two times a day. - Blood-Glucose Meter 1 Each three times daily. Please match the test strips and lancets - sildenafil (REVATIO) 20 mg tablet Take 3-5 tablets by mouth once daily as needed. - albuterol HFA (PROVENTIL HFA, VENTOLIN HFA) 90 mcg (more content not included)... Normal [facility] 08-12-2024 STEPHENIE Telephone (WILFRED) -------- YAMILKA SHARMA ([id number]) 1965 M Date Time Provider Department 08/12/24 NAJMA BLOOM During your visit today, we recorded the following information about you: Cordelia Floyd MA 08/12/2024 1:04 PM Signed Pt. Lm on stating he went to ortho doctor and was cleared to work on Thursday. Patient states he also needs a note from Dr. Bloom that he is cleared to work . Pt. States fax to [employer]. Please advise. Cordelia Floyd MA Pt. States fax is in chart. Najma Bloom DO 08/13/2024 7:11 PM Signed Please print and stamp my signature and fax to the requested recipients first thing on Thursday - thanks DO Alexx Everett Julie, MA 08/15/2024 9:03 AM Signed Letter faxed to patient's work Criss Devi MA 08/29/2024 10:47 AM Signed Patient also requested that letter be faxed to [facility] [phone], this has been completed. Criss Devi MA Allergies As of Date: 08/12/2024 Noted Allergy Reaction ASPARTAME 06/05/2020 5 - Intolerance Comments: Severe headache BACTRIM (SULFAMETHOXAZOLE-TRIMET H*07/18/2016 4 - Hives 5 - Intolerance Comments: Reaction: gas Sensitivity: Intolerance. Sensitivity: Intolerance BIAXIN (CLARITHROMYCIN) 07/18/2016 16 - Unknown Comments: Indigestion/gas INFLUENZA VACCINE TRI-SP -10 10/29/2018 16 - Unknown Comments: Flu MONOSODIUM GLUTAMATE 05/25/2024 6 - Diarrhea MONOSODIUM GLUTAMATE (MSG) 06/05/2020 5 - Intolerance Comments: Severe headache PANTOPRAZOLE 02/01/2021 6 - Diarrhea SULFA (SULFONAMIDE ANTIBIOTICS) 07/18/2016 2 - Rash 4 - Hives CLINDAMYCIN HCL 07/18/2016 6 - Diarrhea 8 - GI Upset 11 - Vomiting Comments: Reaction: Nausea/vomiting/diarrhea Other Reaction: stomach cramps Sensitivity: Intolerance Date Reviewed: 08/12/2024 Reviewed by: Aide Quintanilla PA-C - Fully Assessed Reason for Visit: Patient Update [1234] Cmt: Note to return to work Prescriptions as of 08/29/2024 - apixaban (ELIQUIS) 5 mg tab(s) Take 1 tablet by mouth two times a day. - dilTIAZem CD (CARDIZEM CD, CARTIA XT) 120 mg 24 hr capsule Take 1 capsule by mouth once daily. - metoprolol tartrate, short acting, (LOPRESSOR) 25 mg tablet Take 1 tablet by mouth every 12 hours. - OZEMPIC 1 mg/dose (4 mg/3 mL) pen INJECT 1 MG UNDER THE SKIN WEEKLY - metFORMIN (GLUCOPHAGE) 500 mg tablet Take 1 tablet by mouth two times a day with meals. - lisinopril (ZESTRIL) 5 mg tablet Take 1 tablet by mouth once daily. - sodium bicarbonate 650 mg tablet Take 2 tablets by mouth two times a day. - blood sugar diagnostic (ONETOUCH VERIO TEST STRIPS) test strip 1 Strip two times a day. Use with blood glucose test two times a day. Insulin Dep? No - dapagliflozin propanediol (FARXIGA) 10 mg tablet Take 1 tablet by mouth daily with breakfast. - gabapentin (NEURONTIN) 600 mg tablet Take 1 tablet by mouth three times a day for 90 days. - SITagliptin phosphate (JANUVIA) 100 mg tablet Take 1 tablet by mouth once daily. - allopurinol (ZYLOPRIM) 100 mg tablet take 1 tablet twice a day - insulin glargine (LANTUS SOLOSTAR U-100 INSULIN) 100 unit/mL (3 mL) Inject 30 Units subcutaneously every morning. - glimepiride (AMARYL) 4 mg tablet Take 4 mg by mouth two times a day with meals. - furosemide (LASIX) 40 mg tablet Take 1 tablet by mouth once daily. - lancets (ONETOUCH DELICA PLUS LANCET) 33 gauge Use with blood glucose test three times a day. Insulin Dep? Yes - blood sugar diagnostic (ONETOUCH VERIO TEST STRIPS) test strip Use with blood glucose test three times a day. Insulin Dep? Yes - DULoxetine (CYMBALTA) 60 mg capsule Take 1 capsule by mouth two times a day. - rosuvastatin (CRESTOR) 40 mg tablet take 1 tablet daily - lidocaine-prilocaine (EMLA) 2.5-2.5 % cream APPLY TO AFFECTED AREA NEEDED PRIOR TO CHEMOTHERAPY - ergocalciferol 50,000 unit capsule (VITAMIN D2, DRISDOL) TAKE 1 CAPSULE ONCE A WEEK - Blood-Glucose Meter 1 Each three times daily. Please match the test strips and lancets - sildenafil (REVATIO) 20 mg tablet Take 3-5 tablets by mouth once daily as needed. 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 [facility] (WILFRED) -------- YAMILKA SHARMA ([id number]) 1965 M Date Time Provider Department 08/08/24 NAJMA BLOOM During your visit today, we recorded the following information about you: Najma Bloom DO 08/08/2024 11:41 AM Signed Pt is here with his . He has had bronchitis that he caught from his grandson. He has not felt well for about 2 weeks. He is hoping to get back to work next week after being off for surgery, but does not want this bronchitis to keep him off work longer. Najma Bloom DO Allergies As of Date: 08/08/2024 Noted Allergy Reaction ASPARTAME 06/05/2020 5 - Intolerance Comments: Severe headache BACTRIM (SULFAMETHOXAZOLE-TRIMET H*07/18/2016 4 - Hives 5 - Intolerance Comments: Reaction: gas Sensitivity: Intolerance. Sensitivity: Intolerance BIAXIN (CLARITHROMYCIN) 07/18/2016 16 - Unknown Comments: Indigestion/gas INFLUENZA VACCINE TRI-SP -10 10/29/2018 16 - Unknown Comments: Flu MONOSODIUM GLUTAMATE 05/25/2024 6 - Diarrhea MONOSODIUM GLUTAMATE (MSG) 06/05/2020 5 - Intolerance Comments: Severe headache PANTOPRAZOLE 02/01/2021 6 - Diarrhea SULFA (SULFONAMIDE ANTIBIOTICS) 07/18/2016 2 - Rash 4 - Hives CLINDAMYCIN HCL 07/18/2016 6 - Diarrhea 8 - GI Upset 11 - Vomiting Comments: Reaction: Nausea/vomiting/diarrhea Other Reaction: stomach cramps Sensitivity: Intolerance Date Reviewed: 07/26/2024 Reviewed by: Ileana Luque RN - Fully Assessed Reason for Visit: Patient Question [1477] Order(s):amoxicillin-cla vulanate potassium (AUGMENTIN) 875-125 mg per tabletTake 1 tablet by mouth every 12 hours for 10 days.Disp: 20 tabletRfl: 0 Prescriptions as of 08/08/2024 - amoxicillin-clavulanate potassium (AUGMENTIN) 875-125 mg per tablet Take 1 tablet by mouth every 12 hours for 10 days. - OZEMPIC 1 mg/dose (4 mg/3 mL) pen INJECT 1 MG UNDER THE SKIN WEEKLY - metFORMIN (GLUCOPHAGE) 500 mg tablet Take 1 tablet by mouth two times a day with meals. - lisinopril (ZESTRIL) 5 mg tablet Take 1 tablet by mouth once daily. - sodium bicarbonate 650 mg tablet Take 2 tablets by mouth two times a day. - blood sugar diagnostic ([employer] VERIO TEST STRIPS) test strip 1 Strip two times a day. Use with blood glucose test two times a day. Insulin Dep? No - dapagliflozin propanediol (FARXIGA) 10 mg tablet Take 1 tablet by mouth daily with breakfast. - gabapentin (NEURONTIN) 600 mg tablet Take 1 tablet by mouth three times a day for 90 days. - dilTIAZem CD (CARDIZEM CD, CARTIA XT) 120 mg 24 hr capsule Take 1 capsule by mouth once daily. - SITagliptin phosphate (JANUVIA) 100 mg tablet Take 1 tablet by mouth once daily. - allopurinol (ZYLOPRIM) 100 mg tablet take 1 tablet twice a day - insulin glargine (LANTUS SOLOSTAR U-100 INSULIN) 100 unit/mL (3 mL) Inject 30 Units subcutaneously every morning. - glimepiride (AMARYL) 4 mg tablet Take 4 mg by mouth two times a day with meals. - furosemide (LASIX) 40 mg tablet Take 1 tablet by mouth once daily. - lancets (ONETOUCH DELICA PLUS LANCET) 33 gauge Use with blood glucose test three times a day. Insulin Dep? Yes - blood sugar diagnostic (ONETOUCH VERIO TEST STRIPS) test strip Use with blood glucose test three times a day. Insulin Dep? Yes - DULoxetine (CYMBALTA) 60 mg capsule Take 1 capsule by mouth two times a day. - rosuvastatin (CRESTOR) 40 mg tablet take 1 tablet daily - lidocaine-prilocaine (EMLA) 2.5-2.5 % cream APPLY TO AFFECTED AREA NEEDED PRIOR TO CHEMOTHERAPY - metoprolol tartrate, short acting, (LOPRESSOR) 25 mg tablet Take 1 tablet by mouth every 12 hours. - ergocalciferol 50,000 unit capsule (VITAMIN D2, DRISDOL) TAKE 1 CAPSULE ONCE A WEEK - apixaban (ELIQUIS) 5 mg tab(s) Take 1 tablet by mouth two times a day. - Blood-Glucose Meter 1 Each three times daily. Please match the test strips and lancets - sildenafil (REVATIO) 20 mg tablet Take 3-5 tablets by mouth once daily as needed. 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 Normal [facility] CNPNon 07-28-2024 CNPN Telephone (ORMDNA) -------- YAMILKA SHARMA ([id number]) 1965 Date Time Provider Department 07/28/24 AIDE QUINTANILLA During your visit today, we recorded the following information about you: Aide Quintanilla PA-C 07/28/2024 12:53 PM Signed Pathology from surgery shows possible rheumatology problem. Dr. Michele recommends he schedule follow up with Rheum. Consult placed. Please assist with scheduling. Charisma Nicholson 08/01/2024 8:34 AM Signed [facility] for patient to call and schedule an appointment for Rheumatology Melissa Rodriguez 08/03/2024 9:56 AM Signed Patient scheduled for Rheum on 10/07 Allergies As of Date: 07/28/2024 Noted Allergy Reaction ASPARTAME 06/05/2020 5 - Intolerance Comments: Severe headache BACTRIM (SULFAMETHOXAZOLE-TRIMET H*07/18/2016 4 - Hives 5 - Intolerance Comments: Reaction: gas Sensitivity: Intolerance. Sensitivity: Intolerance BIAXIN (CLARITHROMYCIN) 07/18/2016 16 - Unknown Comments: Indigestion/gas INFLUENZA VACCINE TRI-SP 09-10 10/29/2018 16 - Unknown Comments: Flu MONOSODIUM GLUTAMATE 05/25/2024 6 - Diarrhea MONOSODIUM GLUTAMATE (MSG) 06/05/2020 5 - Intolerance Comments: Severe headache PANTOPRAZOLE 02/01/2021 6 - Diarrhea SULFA (SULFONAMIDE ANTIBIOTICS) 07/18/2016 2 - Rash 4 - Hives CLINDAMYCIN HCL 07/18/2016 6 - Diarrhea 8 - GI Upset 11 - Vomiting Comments: Reaction: Nausea/vomiting/diarrhea Other Reaction: stomach cramps Sensitivity: Intolerance Date Reviewed: 07/26/2024 Reviewed by: Ileana Luque RN - Fully Assessed Reason for Visit: Appointment [186] Primary Visit Diagnosis:Synovitis and tenosynovitis of knee [M65.969] Order(s):CONSULT TO RHEUM/IMMUN DISEASE [9039] Order #: [id number]: 1 FUTURE Prescriptions as of 08/03/2024 - OZEMPIC 1 mg/dose (4 mg/3 mL) pen INJECT 1 MG UNDER THE SKIN WEEKLY - metFORMIN (GLUCOPHAGE) 500 mg tablet Take 1 tablet by mouth two times a day with meals. - lisinopril (ZESTRIL) 5 mg tablet Take 1 tablet by mouth once daily. - sodium bicarbonate 650 mg tablet Take 2 tablets by mouth two times a day. - blood sugar diagnostic ([employer] VERIO TEST STRIPS) test strip 1 Strip two times a day. Use with blood glucose test two times a day. Insulin Dep? No - dapagliflozin propanediol (FARXIGA) 10 mg tablet Take 1 tablet by mouth daily with breakfast. - gabapentin (NEURONTIN) 600 mg tablet Take 1 tablet by mouth three times a day for 90 days. - dilTIAZem CD (CARDIZEM CD, CARTIA XT) 120 mg 24 hr capsule Take 1 capsule by mouth once daily. - SITagliptin phosphate (JANUVIA) 100 mg tablet Take 1 tablet by mouth once daily. - allopurinol (ZYLOPRIM) 100 mg tablet take 1 tablet twice a day - insulin glargine (LANTUS SOLOSTAR U-100 INSULIN) 100 unit/mL (3 mL) Inject 30 Units subcutaneously every morning. - glimepiride (AMARYL) 4 mg tablet Take 4 mg by mouth two times a day with meals. - furosemide (LASIX) 40 mg tablet Take 1 tablet by mouth once daily. - lancets ([employer]UCH DELICA PLUS LANCET) 33 gauge Use with blood glucose test three times a day. Insulin Dep? Yes - blood sugar diagnostic (ONETOUCH VERIO TEST STRIPS) test strip Use with blood glucose test three times a day. Insulin Dep? Yes - DULoxetine (CYMBALTA) 60 mg capsule Take 1 capsule by mouth two times a day. - rosuvastatin (CRESTOR) 40 mg tablet take 1 tablet daily - lidocaine-prilocaine (EMLA) 2.5-2.5 % cream APPLY TO AFFECTED AREA NEEDED PRIOR TO CHEMOTHERAPY - metoprolol tartrate, short acting, (LOPRESSOR) 25 mg tablet Take 1 tablet by mouth every 12 hours. - ergocalciferol 50,000 unit capsule (VITAMIN D2, DRISDOL) TAKE 1 CAPSULE ONCE A WEEK - apixaban (ELIQUIS) 5 mg tab(s) Take 1 tablet by mouth two times a day. - Blood-Glucose Meter 1 Each three times daily. Please match the test strips and lancets - sildenafil (REVATIO) 20 mg tablet Take 3-5 tablets by mouth once daily as needed. 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 Onychomycosis [B35.1] 07/21/2017 05/22/2021 Retroperitoneal mass [R19.00] 07/05/2019 Diffuse large B cell lymphoma (HCC) [C83.30] 07/14/2019 Neutropenic sepsis (HCC) [A41.9, D70.9] 09/13/2019 09/16/2019 Nephrostomy status (HCC) [Z93.6] 09/13/2019 05/22/2021 Sepsis due to gram-negative UTI (HCC) [A41.50, *10/25/2019 10/26/2019 Elevated lactic acid level [R79.89] 10/26/2019 10/26/2019 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 Normal [facility] ANES POSTPROC EVALon 024 ANES POSTPROC EVAL HNO ID: [id number] Author: OSIRIS THAKUR MD Service: Anesthesiology Author Type: Anesthesiologist Type: Anesthesia Postprocedure Evaluation Filed: 07/26/2024 12:07 Note Text: POST ANESTHESIA EVALUATION NOTE : 1965 Procedure Summary Date: 07/26/24 Room / Location: [facility] OR / [facility] OR Anesthesia Start: 1011 Anesthesia Stop: 1111 Procedure: ARTHROSCOPY KNEE MENISCECTOMY MEDIAL OR LATERAL (Left: Knee) Diagnosis: Tear of medial meniscus of left knee, current, unspecified tear type, initial encounter (Tear of medial meniscus of left knee, current, unspecified tear type, initial encounter [S83.242A]) Surgeons: Jennifer Michele DO Responsible Provider: Osiris Thakur MD Anesthesia Type: general ASA Status: 3 Anesthesia Type: general Airway Type: ETT Last Vitals Vitals Value Taken Time BP 118/69 07/26/24 1200 Temp 36.5 ?C (97.7 ?F) 07/26/24 1107 Pulse 75 07/26/24 1203 Resp 12 07/26/24 1203 SpO2 93 % 07/26/24 1203 Vitals shown include unfiled device data. Post Anesthesia Patient Status Patient Evaluation: PACU. PACU/ICU Patient Condition: stable. Anticipated Disposition: phase 2 then home. Neurological Status: aware and responsive. Pulmonary Status: breathing comfortably on room air Airway Control: returned to baseline unsupported. Cardiovascular Status: stable. Pain Management: clinically adequate - multimodal analgesia pain management approach Postoperative Hydration: acceptable. Intraoperative Events: no significant anesthesia events Post Operative Nausea/Vomiting Status: no significant post operative nausea or vomiting Recommendation: continue current plan of care. Anesthesia Observations No Documentation SIGNATURE: Osiris Tahkur MD PATIENT NAME: Yamilka Sharma DATE: July 26, 2024 TIME: 12:07 PM [id number] PRE-OP HNO ID: [id number] Author: OSIRIS THAKUR MD Service: Anesthesiology Author Type: Anesthesiologist Type: Anesthesia Preprocedure Evaluation Filed: 07/26/2024 09:14 Note Text: ANESTHESIOLOGY DAY OF SURGERY NOTE : 1965 Procedure Information Date/Time: 07/26/2437 Procedure: ARTHROSCOPY KNEE MENISCECTOMY MEDIAL OR LATERAL (Left: Knee) Location: [facility] OR01 / [facility] OR Surgeons: Jennifer Michele DO Estimated body mass index is 33.91 kg/m? as calculated from the following: Height as of 07/22/24: 182.9 cm (6'). Weight as of 07/22/24: 113.4 kg (250 lb). Most recent hematocrit and potassium results: Hematocrit 31.0 06/10/2024 Potassium 4.2 06/10/2024 Relevant Problems CARDIO (+) Atrial fibrillation with RVR (HCC) (+) Coronary artery disease involving newtok coronary artery of newtok heart without angina pectoris (+) Essential hypertension (+) Paroxysmal atrial fibrillation (HCC) ENDO (+) Type 2 diabetes mellitus (HCC) (+) Type 2 diabetes mellitus with diabetic nephropathy, without long-term current use of insulin (HCC) -RENAL (+) Acute kidney injury superimposed on chronic kidney disease (HCC) (HCC) (+) Hydronephrosis (+) Stage 3b chronic kidney disease (HCC) (+) Type 2 diabetes mellitus with diabetic nephropathy, without long-term current use of insulin (HCC) PULMONARY (+) Simple chronic bronchitis (HCC) I - PHYSICAL EVALUATION AIRWAY Patient intubated: No. Tracheostomy tube not present Mallampati: II. TM distance: >3 FB. Neck ROM: full ROM without neurological symptoms. Mouth opening: adequate. Short neck: no. Thick neck: no Burgess present: yes DENTAL Dental findings: teeth intact and chipped. Additional exam findings: yes. CARDIOVASCULAR Rhythm: regular Rate: normal PULMONARY Breath sounds clear to auscultation. II - ANESTHESIA PLAN ASA Score: 3 Anesthetic Plan: general Airway type: ETT The patient is not a current smoker. NPO Status: adequate Beta Chaka Monitoring Plan Monitoring plan: Standard ASA. Post Procedure Analgesic Plan Postoperative analgesic plan: parenteral or oral opioids and multimodal analgesia. Informed Consent Anesthetic risks, benefits, alternatives, personnel and consent discussed: yes. Patient / Responsible Constitution Party agrees to proceed: yes Patient / Surrogate agrees to blood products: yes DNR status not reviewed with patient and/or family prior to surgery. Significant changes in the patient condition since the History and Physical, not otherwise documented in primary service progress note: no. Potential Anesthesia issues that may suggest increased risk of complications or contraindication to planned procedure: none. Vitals Value Taken Time BP 128/82 07/26/24845 Pulse 86 07/26/24910 Resp 22 07/26/24910 Temp 36.2 ?C (97.2 ?F) 07/26/24845 SpO2 99 % 07/26/24845 Vitals shown include unfiled device data. Facility-Administered Medications as of 07/26/2024 Medication Dose Route Frequency - lidocaine (PF) 10 mg/mL (1 %) 1-2 mg injection (XYLOCAINE) 0.1-0.2 mL INTRADERMAL PRN - lactated ringers iv infusion 5-30 mL/hr INTRAVENOUS CONTINUOUS - NaCl 0.9% iv flush bag 20 mL INTRAVENOUS PRN - ceFAZolin iv piggyback 2 g in D5W (iso-osmotic) 100 mL (ANCEF) 2 g INTRAVENOUS Pre-Op Once - acetaminophen 1,000 mg tab(s) (TYLENOL) 1,000 mg ORAL Pre-Op Once - promethazine 12.5 mg tab(s) (PHENERGAN) 12.5 mg ORAL Pre-Op Once - famotidine 20 mg injection (PEPCID) 20 mg INTRAVENOUS ONCE - cyclobenzaprine 10 mg tab(s) (FLEXERIL) 10 mg ORAL ONCE - scopolamine 1 mg over 3 days 1 Patch (TRANSDERM-SCOP) 1 Patch TRANSDERMAL q 72 HR And - [START ON 07/29/2024] scopolamine - REMOVE PATCH OTHER q 72 HR And - scopolamine - VERIFY patch OTHER q 8 H Outpatient Medications as of 07/26/2024 Medication Sig - sodium bicarbonate 650 mg tablet Take 2 tablets by mouth two times a day. - blood sugar diagnostic ([employer]UCH VERIO TEST STRIPS) test strip 1 Strip two times a day. Use with blood glucose test two times a day. Insulin Dep? No - gabapentin (NEURONTIN) 600 mg tablet Take 1 tablet by mouth three times a day for 90 days. - dilTIAZem CD (CARDIZEM CD, CARTIA XT) 120 mg 24 hr capsule Take 1 capsule by mouth once daily. - SITagliptin phosphate (JANUVIA) 100 mg tablet Take 1 tablet by mouth once daily. - allopurinol (ZYLOPRIM) 100 mg tablet take 1 tablet twice a day - insulin glargine (LANTUS SOLOSTAR U-100 INSULIN) 100 unit/mL (3 mL) Inject 30 Units subcutaneously every morning. - glimepiride (AMARYL) 4 mg tablet Take 4 mg by mouth two times a day with meals. - furosemide (LASIX) 40 mg tablet Take 1 tablet by mouth once daily. - lancets ([employer] DELICA PLUS LANCET) 33 gauge Use with blood glucose test three times a day. Insulin Dep? Yes - blood sugar diagnostic (ONETOUCH VERIO TEST STRIPS) test strip Use with blood glucose test three times a day. Insulin Dep? Yes - DULoxetine ( (more content not included)... [facility] NURSING PROGon 07-26-2024 NURSING PROG HNO ID: [id number] Author: XOCHITL GARCIA, RN Service: Nursing Author Type: Registered Nurse Type: Nursing Progress Note Filed: 07/26/2024 13:03 Note Text: Other: at bedside talking with pt and family, ok to restart just Eliquis tomorrow. Pt not to take both asa and Eliquis per MD. Pt and family aware [facility] OPERATIVE NOon 07-26-2024 OPERATIVE NO HNO ID: [id number] Author: JENNIFER MICHELE DO Service: Orthopaedic Surgery Author Type: Physician Type: Operative Report Filed: 08/03/2024 18:46 Note Text: OPERATIVE/PROCEDURE REPORT LOG ID: [id number] SURGERY/PROCEDURE DATE: 07/26/2024 INCISION/PROCEDURE START TIME: 10:39 AM INCISION CLOSE/PROCEDURE END TIME: 11:01 AM SURGEON(S)/PROCEDURALIST (S) AND MARKET MANAGER(S): Surgeons and Role: * Jennifer Michele DO - Primary Physician Palm And Back Forger: Aide Quintanilla PA-C SURGERY/PROCEDURE(S): Left knee arthroscopy, medial meniscectomy, mfc chondroplasty, pf chondroplasty, extensive synovectomy, synovial biopsy ANESTHESIA: General SURGERY/PROCEDURE DETAILS: Preop Patient is a 58-year-old male who sustained a twisting tear to his left knee and continued medial knee pain. Risks benefits and alternatives surgery discussed patient. Risk include but not limited to blood loss, blood clot, infection, neurovascular G, failure procedure, loss of blood loss limb. Patient has an MRI confirming arthritis and a meniscus tear. Patient stopped his Eliquis 5 days prior he would resume it tomorrow Weight-bear as tolerated postoperatively elevate ice compression discussed and if any signs develop of blood clot to go to the emergency room immediately. Operative Patient seen examined preoperative holding her. Left knee was marked. Patient brought to the operative room placed supine on the operating table. [place], anesthesia, antibiotics were administered. Left leg was prepped and draped you sterile technique with a tourniquet around his upper thigh. All bony prominences were well-padded to be placed on his contralateral limb. We marked out our portal placements left leg was elevated sanguine interdigitation pressure to 50 torr. Timeouts performed. Then used 11 blade create anterior lateral portal and began our diagnostic arthroscopy. There is grade 2 changes in the inferior pole of the patella with no loose bodies in the medial lateral recesses. We then moved to the anteromedial joint line creating anterior medial portal under direct visualization. There was extensive hyperemic thickened synovium we did biopsy this and send it to pathology for further evaluation. The rest of it was the remaining synovitis was resected combination of a shaver and ablator. We then able to visualize a posterior horn medial meniscus tear which was tear we resected gently back with a combination of basket and shaver. ACL patient present within the notch. There is grade 3 changes of the medial femoral condyle gently debrided debrided with a shaver as well. There are grade 3 changes on the kissing lesions on the tibial plateau. We then moved the lateral joint space there is some synovitis that was resected there as well the lateral meniscus lateral tibial plateau lateral femoral condyle intact and stable probing. The lateral tibial plateau had grade 2 changes throughout. We then gently debride back the inferior pole of patella with some loose cartilage as well. The knee was irrigated copious amounts of sterile saline sterile dressings were applied tourniquet plated. Patient Toller procedure well no complications transferred recovery room conditions Postoperative plan Weight-bear as tolerated Left message with Percocet 10pills only, stop tylenol Elevate ice ankle pumps Ice machine Discussed to call with increased pain numbness or if other issues arise Disclaimer comment: Please note this report has been produced using speech recognition software and may contain errors related to that system including errors in grammar, punctuation, and spelling, as well as words and phrases that may be inappropriate. If there are any questions or concerns please feel free to contact the dictating provider for clarification. PRE-OP/PRE-PROCEDURE DIAGNOSIS: left knee oa, med men tear POST-OP/POST-PROCEDURE DIAGNOSIS: Same as Preop, hyperemic synovitis ESTIMATED BLOOD LOSS: 0 ml SPECIMENS: left knee synovium IMPLANTABLE DEVICES: NONE DRAINS: None COMPLICATIONS: None CLOSURE TECHNIQUE: Primary PARTICIPATION IN SURGERY/PROCEDURE: I/primary surgeon/proceduralist performed the procedure with assistance. No qualified resident/fellow was available. No qualified resident was available to assist in the case. The PA/MILL FEEDER assisted me with retraction and mobilization of the limb for optimal visualization and appropriate placement of implant/fracture reduction. He/She was essential for the proper performance of the surgical procedure SIGNATURE: Jennifer Michele DO PATIENT NAME: Yamilka Sharma DATE: July 26, 2024 TIME: 11:07 AM [facility] SURGICAL PATHOLOGYon CASE REPORT [facility] Comment on above: Order Comment: Santo malik Type: TISSUE SPECIMENOrdering Facility: [facility] Address: [address] [place] [address] Result Comment: Surg ica Pathology Report Case: [id number] Authorizing Provider: Jennifer Michele DO Collected: 07/26/2024 10:44 AM Ordering Location: [facility] Surgery Received: 07/26/2024 02:28 PM Pathologist: Billy Herrera MD Specimen: Synovium, left knee synovium biopsy Performed By: #### S ####[facility] LABCLIA [id number] [facility] [id number] [place] [address] [place] CLINICAL HISTORY Normal [facility] Comment on above: Order Comment: Santo malik Type: TISSUE SPECIMENOrdering Facility: [facility] Address: [address] [place] [address] Result Comment: Pre- op diagnosis: Tear of medial meniscus of left knee, current, unspecified tear type, initial encounter [S83.242A] Performed By: #### S ####[facility] LABCLIA [id number] [address] OF [facility] DIAGNOSIS COMMENT A mild acute and chr onic synovitis is associated with mild synovial hyperplasia and focal surface fibrin. Such findings exceed what is generally expected for routine osteoarthritis but may be secondary to trauma, septic arthritis, or an autoimmune arthritide/inflammatory arthritis. Clinical and lab correlation is recommended. [facility] Comment on above: Order Comment: Speci men Type: TISSUE SPECIMENOrdering Facility: [facility] Address: [address] [place] [address] Performed By: #### S ####[facility] LABCLIA [id number] [address] FINAL DIAGNOSIS [facility] Comment on above: Order Comment: Speci men Type: TISSUE SPECIMENOrdering Facility: [facility] Address: [address] [place] [address] Result Comment: A. Brandi oft tissue, left knee, biopsy: - Acute and chronic mildly proliferative synovitis with focal surface fibrin deposition. (See comment) Performed By: #### S ####[facility] LABCLIA [id number] [address] FINAL PERFORMING LAB [facility] Comment on above: Order Comment: Speci men Type: TISSUE SPECIMENOrdering Facility: [facility] Address: [address] [place] [address] Result Comment: Diag nostic interpretation performed at [facility], [address] [place] [address] CLIA# [id number] Medical Office Representative: Suleiman Tolliver M.D. Performed By: #### S ####[facility] LABCLIA [id number] [address] [place] GROSS DESCRIPTION A. Synovium Normal [facility] Comment on above: Order Comment: Speci men Type: TISSUE SPECIMENOrdering Facility: [facility] Address: [address] [place] [address] Result Comment: Rece ived in formalin labeled left knee synovium biopsy is a 1.8 x 1.0 x 0.4 cm aggregate of gomez-patel, rubbery tissue that is entirely submitted labeled A1. LG July 26, 2024 4:55 PM Gross examination performed at [facility], [address] [place] [address] Performed By: #### S ####[facility] [id number] [address] [place] HISTORY PHYSICALon HISTORY PHYSICAL HNO ID: [id number] Author: KATE KIRBY APRN.CNP Service: ? Author Type: Nurse Practitioner Type: H&P Filed: 07/25/2024 11:52 Note Text: [facility] HISTORY AND PHYSICAL EXAMINATION SERVICE DATE: 07/22/2024 SERVICE TIME: 11:51 AM PRIMARY CARE PHYSICIAN: Najma Bloom DO Assessment Patient has the following medical conditions which may affect justine-operative course: Paroxysmal atrial fibrillation (HCC) Assessment: daily Eliquis, controlled on rx 02/15/2024 Osiris Paris CNP, Cardiology Conclusion: (E78.2) Hyperlipidemia, mixed (primary encounter diagnosis) Comment: last labs 07/2023. LDL not calculated due to high triglycerides Plan: LIPID PANEL BASIC Will recheck labs. Discussed dietary recommendations. (I10) Hypertension, essential Comment: low blood pressure. He is not sympotmatic. States he is always low. Plan: continue same meds. (I48.0) Paroxysmal atrial fibrillation (HCC) Comment: appears to be in sinus rhythm now Plan: continue same meds (I25.10) Coronary artery disease involving newtok coronary artery of newtok heart without angina pectoris Comment: no ischemic symptoms. Plan: continue same meds. PLAN AND RECOMMENDATIONS: Magnesium glycinate 400-800mg at bedtime. Follow up Dr Benton in 6 months Have fasting lipid level before your next visit. CONTACT INFORMATION: Osiris Paris APRN.JU Coronary artery disease involving newtok coronary artery of newtok heart without angina pectoris Assessment: non-obstructing, c/w statin, BB. Denies CP, palpitations, sob new or worsening cardiac symptoms. 02/26/2023 Pharm Stress CONCLUSIONS: 1. SPECT Perfusion Study: Normal. 2. There is no scintigraphic evidence for inducible ischemia. 3. No evidence of scarred myocardium. 4. Left ventricle is mildly dilated. The left ventricle systolic function is normal. 5. Right ventricle is normal in size. The right ventricle systolic function is normal. 6. This is a low risk scan. Gated Stress IR:3D LVEF % 64 02/15/2024 Osiris Paris APRN.JU (E78.2) Hyperlipidemia, mixed (primary encounter diagnosis) Comment: last labs 07/2023. LDL not calculated due to high triglycerides Plan: LIPID PANEL BASIC Will recheck labs. Discussed dietary recommendations. (I10) Hypertension, essential Comment: low blood pressure. He is not sympotmatic. States he is always low. Plan: continue same meds. (I48.0) Paroxysmal atrial fibrillation (HCC) Comment: appears to be in sinus rhythm now Plan: continue same meds (I25.10) Coronary artery disease involving newtok coronary artery of newtok heart without angina pectoris Comment: no ischemic symptoms. Plan: continue same meds. PLAN AND RECOMMENDATIONS: Magnesium glycinate 400-800mg at bedtime. Follow up Dr Benton in 6 months Have fasting lipid level before your next visit. Essential hypertension Assessment: controlled on rx Last 14 BP Last 14 Encounter BP Readings: Date: BP: 07/22/2024 112/80 07/18/2024 116/66 06/23/2024 122/70 06/06/2024 107/72 05/30/2024 102/61 05/25/2024 108/71 05/11/2024 125/69 05/11/2024 180/95 04/19/2024 109/60 03/04/2024 95/64 02/18/2024 80/50 02/15/2024 94/56 12/23/2023 114/74 12/23/2023 82/62 Thrombocytopenia (HCC) Assessment: hx, last platelets WNL Platelet Count Date Value Ref Range Status 06/10/2024 175 150 - 400 k/uL Final Anemia Assessment: hx, s/p toe amputation 06/06/2024 Hemoglobin (g/dL) Date Value 06/10/2024 9.7 10/31/2021 13.1 Hematocrit (%) Date Value 06/10/2024 31.0 10/31/2021 38.8 WBC (k/uL) Date Value 06/10/2024 7.23 10/31/2021 8.38 Stage 3b chronic kidney disease (HCC) Assessment: on rx, following neprhrology Creatinine Date Value Ref Range Status 06/10/2024 1.65 (H) 0.73 - 1.22 mg/dL Final 06/06/2024 1.97 (H) 0.73 - 1.22 mg/dL Final 06/05/2024 1.93 (H) 0.73 - 1.22 mg/dL Final 06/04/2024 1.73 (H) 0.73 - 1.22 mg/dL Final 04/19/2024 Dr. Polanco, Nephrology ASSESSMENT AND PLAN 1) CKD Stage 3 BL 2.3-2.5 , GFR 30-35 -Etiology (likely) : DKD, A1C 8.5 -s/p TURP and right ureteroscopic and right ureter stent placement. -Previous baseline creatinine was around 2.3 - Does not need preparation for dialysis at this time. - Cr is 2.35 GFR 31 ACR 126 mg/g -UA > 20 WBC , LE + , asymptomatic UTI - K 4.5 -Will continue routine monitoring of chemistries. -Avoid all PICC lines, i.v.s and blood draws in arms above wrists as possible to preserve veins for possible AV fistula or AVG. -Lisinorpil 10 mg po daily and off of metformin -Farxiga 10 mg po daily , on Ozemoic 1.0 q weekly -Lasix 40 mg daily, KCL 10 meq po daily as needed - -Sodium bicarbonate 650 mg 2 tablets twice a day _ 2) Hypertension: -Blood pressure is adequately controlled. -No changes to medications at this time. -The patient was advised to follow a low salt/DASH diet. 3) Anemia: - (more content not included)... [facility] [facility] Telephone (AGFAMPLE) -------- EDITHYAMILKA ([id number]) 1965 M Date Time Provider Department 07/20/24 NAJMA BLOOM AGCHUY During your visit today, we recorded the following information about you: Criss Devi MA 07/20/2024 10:24 AM Signed Alvina with Pre-Anesthesia Department left message requesting Dr. Bloom sign 07/18/24 office visit so they can use it for the HANDP for surgery on 07/26/24. Please advise. KENIA Mills Pamela R 07/21/2024 1:43 PM Signed Patient stated he wanted to hold off scheduling pacc appointment until he sees if pcp is going to complete office note. Will continue to watch. Najma Bloom DO 07/21/2024 2:42 PM Signed Note signed DO Magdaleno Everett Janie, MA 07/22/2024 4:49 PM Signed Willis at pre admission testing informed. Criss Devi MA Allergies As of Date: 07/20/2024 Noted Allergy Reaction ASPARTAME 06/05/2020 5 - Intolerance Comments: Severe headache BACTRIM (SULFAMETHOXAZOLE-TRIMET H*07/18/2016 4 - Hives 5 - Intolerance Comments: Reaction: gas Sensitivity: Intolerance. Sensitivity: Intolerance BIAXIN (CLARITHROMYCIN) 07/18/2016 16 - Unknown Comments: Indigestion/gas INFLUENZA VACCINE TRI-SP 09-10 10/29/2018 16 - Unknown Comments: Flu MONOSODIUM GLUTAMATE 05/25/2024 6 - Diarrhea MONOSODIUM GLUTAMATE (MSG) 06/05/2020 5 - Intolerance Comments: Severe headache PANTOPRAZOLE 02/01/2021 6 - Diarrhea SULFA (SULFONAMIDE ANTIBIOTICS) 07/18/2016 2 - Rash 4 - Hives CLINDAMYCIN HCL 07/18/2016 6 - Diarrhea 8 - GI Upset 11 - Vomiting Comments: Reaction: Nausea/vomiting/diarrhea Other Reaction: stomach cramps Sensitivity: Intolerance Date Reviewed: 07/18/2024 Reviewed by: Najma Bloom DO - Fully Assessed Reason for Visit: Patient Update [1234] Prescriptions as of 07/22/2024 - OZEMPIC 1 mg/dose (4 mg/3 mL) pen INJECT 1 MG UNDER THE SKIN WEEKLY - metFORMIN (GLUCOPHAGE) 500 mg tablet Take 1 tablet by mouth two times a day with meals. - lisinopril (ZESTRIL) 5 mg tablet Take 1 tablet by mouth once daily. - sodium bicarbonate 650 mg tablet Take 2 tablets by mouth two times a day. - blood sugar diagnostic (ONETOUCH VERIO TEST STRIPS) test strip 1 Strip two times a day. Use with blood glucose test two times a day. Insulin Dep? No - dapagliflozin propanediol (FARXIGA) 10 mg tablet Take 1 tablet by mouth daily with breakfast. - gabapentin (NEURONTIN) 600 mg tablet Take 1 tablet by mouth three times a day for 90 days. - dilTIAZem CD (CARDIZEM CD, CARTIA XT) 120 mg 24 hr capsule Take 1 capsule by mouth once daily. - SITagliptin phosphate (JANUVIA) 100 mg tablet Take 1 tablet by mouth once daily. - oxyCODONE IR (ROXICODONE) 5 mg immediate release tablet Take 1 tablet by mouth every 8 hours as needed for pain for up to 30 days. - allopurinol (ZYLOPRIM) 100 mg tablet take 1 tablet twice a day - insulin glargine (LANTUS SOLOSTAR U-100 INSULIN) 100 unit/mL (3 mL) Inject 30 Units subcutaneously every morning. - glimepiride (AMARYL) 4 mg tablet Take 4 mg by mouth two times a day with meals. - furosemide (LASIX) 40 mg tablet Take 1 tablet by mouth once daily. - acetaminophen (TYLENOL) 325 mg tablet Take 2 tablets by mouth every 6 hours as needed for pain. - lancets (FlutherTOUCH DELICA PLUS LANCET) 33 gauge Use with blood glucose test three times a day. Insulin Dep? Yes - blood sugar diagnostic (ONETOUCH VERIO TEST STRIPS) test strip Use with blood glucose test three times a day. Insulin Dep? Yes - DULoxetine (CYMBALTA) 60 mg capsule Take 1 capsule by mouth two times a day. - rosuvastatin (CRESTOR) 40 mg tablet take 1 tablet daily - lidocaine-prilocaine (EMLA) 2.5-2.5 % cream APPLY TO AFFECTED AREA NEEDED PRIOR TO CHEMOTHERAPY - metoprolol tartrate, short acting, (LOPRESSOR) 25 mg tablet Take 1 tablet by mouth every 12 hours. - ergocalciferol 50,000 unit capsule (VITAMIN D2, DRISDOL) TAKE 1 CAPSULE ONCE A WEEK - apixaban (ELIQUIS) 5 mg tab(s) Take 1 tablet by mouth two times a day. - Blood-Glucose Meter 1 Each three times daily. Please match the test strips and lancets - sildenafil (REVATIO) 20 mg tablet Take 3-5 tablets by mouth once daily as needed. - albuterol HFA (PROVENTIL HFA, VENTOLIN HFA) 90 mcg/actuation inhaler USE 2 INHALATIONS INSTRUCTED EVERY 4 HOURS NEEDED FOR WHEEZING/SHORTNESS OF BREATH Problem List As Of Date 07/20/2024 Noted Resolved Pain in right foot [M79.671] 12/11/2016 12/11/2016 Type 2 diabetes mellitus with diabetic nephropa*07/21/2017 Onychomycosis [B35.1] 07/21/2017 05/22/2021 Retroperitoneal mass [R19.00] 07/05/2019 Diffuse large B cell lymphoma (HCC) [C83.30] 07/14/2019 Neutropenic sepsis (HCC) [A41.9, D70.9] 09/13/2019 09/16/2019 Nephrostomy status (HCC) [Z93.6] 09/13/2019 05/22/2021 Sepsis due to gram-negative UTI (HCC) [A41.50, *10/25/2019 10/26/2019 (more content not included)... Normal [facility] CNOVon 07-18-2024 CNNICHOL Office Visit (ADRIANA WONG) -------- EDITHYAMILKA ([id number]) 1965 M Date Time Provider Department 07/18/24 10:40 AM NAJMA BLOOM During your visit today, we recorded the following information about you: Temperature Pulse Respiration Blood pressure 97.9 degrees 93/minute 18/minute 116/66 Weight Height 115.2 kg 1.829 m Najma Bloom, 07/21/2024 2:42 PM Signed Subjective HPI Pt is here with his and daughter for f/u for left knee meniscal tear He plans to have arthroscopic surgery by Dr. Michele, ortho The surgery can be set up as soon as his HbA1c is below 8.0 He would like to have his A1c checked today. He understands that he will need to pay out of pocket for this test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 surgery. Thank you for your referral. Monie Perez RN [facility] Allergies As of Date: 06/17/2024 Noted Allergy Reaction ASPARTAME 06/05/2020 5 - Intolerance Comments: Severe headache BACTRIM (SULFAMETHOXAZOLE-TRIMET H*07/18/2016 4 - Hives 5 - Intolerance Comments: Reaction: gas Sensitivity: Intolerance. Sensitivity: Intolerance BIAXIN (CLARITHROMYCIN) 07/18/2016 16 - Unknown Comments: Indigestion/gas INFLUENZA VACCINE TRI-SP 09-10/29/2018 16 - Unknown Comments: Flu MONOSODIUM GLUTAMATE (MSG) 06/05/2020 5 - Intolerance Comments: Severe headache PANTOPRAZOLE 02/01/2021 6 - Diarrhea SULFA (SULFONAMIDE ANTIBIOTICS) 07/18/2016 2 - Rash 4 - Hives CLINDAMYCIN HCL 07/18/2016 6 - Diarrhea 8 - GI Upset 11 - Vomiting Comments: Reaction: Nausea/vomiting/diarrhea Other Reaction: stomach cramps Sensitivity: Intolerance Date Reviewed: 06/15/2024 Reviewed by: Chasidy Beck MA - Fully Assessed Reason for Visit: Home Care [4073] Cmt: Notification of non-admission to home health. Prescriptions as of 06/17/2024 - insulin glargine (LANTUS SOLOSTAR U-100 INSULIN) 100 unit/mL (3 mL) Inject 30 Units subcutaneously every morning. - metFORMIN (GLUCOPHAGE) 500 mg tablet Take 500 mg by mouth two times a day with meals. - glimepiride (AMARYL) 4 mg tablet Take 4 mg by mouth two times a day with meals. - furosemide (LASIX) 40 mg tablet Take 1 tablet by mouth once daily. - dilTIAZem CD (CARDIZEM CD, CARTIA XT) 120 mg 24 hr capsule Take 1 capsule by mouth once daily. - lisinopril (ZESTRIL) 5 mg tablet Take 1 tablet by mouth once daily. - acetaminophen (TYLENOL) 325 mg tablet Take 2 tablets by mouth every 6 hours as needed for pain. - polyethylene glycol 3350 17 gram packet Take 1 Packet by mouth once daily. Dissolve dose in 4 - 8 ounces of liquid and take as directed. - lancets (ONETOUCH DELICA PLUS LANCET) 33 gauge Use with blood glucose test three times a day. Insulin Dep? Yes - blood sugar diagnostic (ONETOUCH VERIO TEST STRIPS) test strip Use with blood glucose test three times a day. Insulin Dep? Yes - FARXIGA 10 mg tablet TAKE 1 TABLET DAILY WITH BREAKFAST - DULoxetine (CYMBALTA) 60 mg capsule Take 1 capsule by mouth two times a day. - rosuvastatin (CRESTOR) 40 mg tablet take 1 tablet daily - gabapentin (NEURONTIN) 600 mg tablet Take 1 tablet by mouth three times a day for 90 days. - lidocaine-prilocaine (EMLA) 2.5-2.5 % cream APPLY TO AFFECTED AREA NEEDED PRIOR TO CHEMOTHERAPY - semaglutide (OZEMPIC) 1 mg/dose (4 mg/3 mL) pen Inject 1 mg subcutaneously one time a week. - blood sugar diagnostic (ONETOUCH VERIO TEST STRIPS) test strip 1 Strip two times a day. Use with blood glucose test two times a day. Insulin Dep? No - metoprolol tartrate, short acting, (LOPRESSOR) 25 mg tablet Take 1 tablet by mouth every 12 hours. - SITagliptin phosphate (JANUVIA) 100 mg tablet Take 1 tablet by mouth once daily. - ergocalciferol 50,000 unit capsule (VITAMIN D2, DRISDOL) TAKE 1 CAPSULE ONCE A WEEK - apixaban (ELIQUIS) 5 mg tab(s) Take 1 tablet by mouth two times a day. - sodium bicarbonate 650 mg tablet TAKE 2 TABLETS TWICE A DAY - allopurinol (ZYLOPRIM) 100 mg tablet Take 1 tablet by mouth twice daily. - Blood-Glucose Meter 1 Each three times daily. Please match the test strips and lancets - sildenafil (REVATIO) 20 mg tablet Take 3-5 tablets by mouth once daily as needed. 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 Normal [facility] 30on 06-15-2024 30 HNO ID: [id number] Author: OSIRIS CARBAJAL RN Service: ? Author Type: Registered Nurse Type: 30 Filed: 06/15/2024 16:03 Note Text: Unable to reach patient. Normal [facility] CNOVon 06-15-2024 CNOV Office Visit (ORMDNA ) -------- AMARAYAMILKA Duval ([id number]) 1965 M Date Time Provider Department 06/15/24 9:15 AM JENNIFER MICHELE During your visit today, we recorded the following information about you: Jennifer Michele DO 06/15/2024 9:51 AM Signed Reason for Visit/Chief Complaint Yamilka Sharma is a 58 year old male who presents today for a new evaluation of following complaint: Patient presents with: Left Knee - Knee Pain, New History of Present Illness: PAIN EVALUATION 06/15/2024 0925 Pain Level: 5 Pain Location: Knee-Left Description: Sore;Aching;Sharp;Stabbi ng Duration Amount of Time: 1 Duration Units: Months Frequency: Continuous Intervention/Comfort measure: -- predisone taper - no relief, cortisone injection HPI: Yamilka Sharma is a 58 year old male presenting today with left knee pain. Patient was well until about 1 month ago when his knee gave out and he sustained a fall. Patient states he is in moderate pain. Patient has been minimal- no weight bearing. Using cane for ambulation. Pain history is noted as above. Denies calf pain, numbness, tingling, fever, chills or other constitutional symptoms. Previous Treatments: Ice: No Heat: No Brace: No NSAIDs: Yes, oxycodone Injections: Yes, 10 days ago, no relief Surgeries: No Physical Therapy: No Review of Systems: Patient did not have, and does not currently have, any weight loss, malaise, fever, chills, headache, chest pain, chest pressure, palpitations, cough, shortness of breath, orthopnea, paroxsymal nocturnal dyspnea, nausea, vomiting, diarrhea, constipation, melena, hematochezia, urinary difficulties, prolonged bleeding, easily bruising, heat or cold intolerance, new onset joint pain or swelling, new onset extremity weakness or numbness, new onset auditory or visual disturbances, lightheadedness, dizziness, partial loss of consciousness or full loss of consciousness. Current Outpatient Medications on File Prior to Visit Medication Sig oxyCODONE IR (ROXICODONE) 5 mg immediate release tablet Take 1-2 tablets by mouth every 8 hours as needed for pain for up to 3 days. insulin glargine (LANTUS SOLOSTAR U-100 INSULIN) 100 unit/mL (3 mL) Inject 30 Units subcutaneously every morning. metFORMIN (GLUCOPHAGE) 500 mg tablet Take 500 mg by mouth two times a day with meals. glimepiride (AMARYL) 4 mg tablet Take 4 mg by mouth two times a day with meals. furosemide (LASIX) 40 mg tablet Take 1 tablet by mouth once daily. dilTIAZem CD (CARDIZEM CD, CARTIA XT) 120 mg 24 hr capsule Take 1 capsule by mouth once daily. lisinopril (ZESTRIL) 5 mg tablet Take 1 tablet by mouth once daily. acetaminophen (TYLENOL) 325 mg tablet Take 2 tablets by mouth every 6 hours as needed for pain. polyethylene glycol 3350 17 gram packet Take 1 Packet by mouth once daily. Dissolve dose in 4 - 8 ounces of liquid and take as directed. lancets (ONETOUCH DELICA PLUS LANCET) 33 gauge Use with blood glucose test three times a day. Insulin Dep? Yes blood sugar diagnostic (FlutherTOUCH VERIO TEST STRIPS) test strip Use with blood glucose test three times a day. Insulin Dep? Yes FARXIGA 10 mg tablet TAKE 1 TABLET DAILY WITH BREAKFAST DULoxetine (CYMBALTA) 60 mg capsule Take 1 capsule by mouth two times a day. rosuvastatin (CRESTOR) 40 mg tablet take 1 tablet daily lidocaine-prilocaine (EMLA) 2.5-2.5 % cream APPLY TO AFFECTED AREA NEEDED PRIOR TO CHEMOTHERAPY semaglutide (OZEMPIC) 1 mg/dose (4 mg/3 mL) pen Inject 1 mg subcutaneously one time a week. blood sugar diagnostic (ONETOUCH VERIO TEST STRIPS) test strip 1 Strip two times a day. Use with blood glucose test two times a day. Insulin Dep? No SITagliptin phosphate (JANUVIA) 100 mg tablet Take 1 tablet by mouth once daily. ergocalciferol 50,000 unit capsule (VITAMIN D2, DRISDOL) TAKE 1 CAPSULE ONCE A WEEK apixaban (ELIQUIS) 5 mg tab(s) Take 1 tablet by mouth two times a day. sodium bicarbonate 650 mg tablet TAKE 2 TABLETS TWICE A DAY allopurinol (ZYLOPRIM) 100 mg tablet Take 1 tablet by mouth twice daily. Blood-Glucose Meter 1 Each three times daily. Please match the test strips and lancets sildenafil (REVATIO) 20 mg tablet Take 3-5 tablets by mouth once daily as needed. albuterol HFA (PROVENTIL HFA, VENTOLIN HFA) 90 mcg/actuation inhaler USE 2 INHALATIONS INSTRUCTED EVERY 4 HOURS NEEDED FOR WHEEZING/SHORTNESS OF BREATH gabapentin (NEURONTIN) 600 mg tablet Take 1 tablet by mouth three times a day for 90 days. metoprolol tartrate, short acting, (LOPRESSOR) 25 mg tablet Take 1 tablet by mouth every 12 hours. No current facility-administered medications on file prior to visit. ALLERGIES Allergen Reactions Aspartame Intolerance Severe headache Bactrim [Sulfametho* Hives, Intolerance Reaction: gas Sensitivity: Intolerance. Sensitivity: Intol (more content not included)... Normal [facility] Bruce 06-15-[address] [facility] Telephone (HCSIND) -------- YAMILKA SHARMA ([id number]) 1965 M Date Time Provider Department 8/21/24 OSIRIS CARBAJAL HCSIND During your visit today, we recorded the following information about you: Osiris Carbajal RN 06/15/2024 4:01 PM Signed Patient not admitted to [facility] services today. SN unable to reach patient. Thank you, Osiris Carbajal RN Allergies As of Date: 06/15/2024 Noted Allergy Reaction ASPARTAME 06/05/2020 5 - Intolerance Comments: Severe headache BACTRIM (SULFAMETHOXAZOLE-TRIMET H*07/18/2016 4 - Hives 5 - Intolerance Comments: Reaction: gas Sensitivity: Intolerance. Sensitivity: Intolerance BIAXIN (CLARITHROMYCIN) 07/18/2016 16 - Unknown Comments: Indigestion/gas INFLUENZA VACCINE TRI-SP -10/29/2018 16 - Unknown Comments: Flu MONOSODIUM GLUTAMATE (MSG) 06/05/2020 5 - Intolerance Comments: Severe headache PANTOPRAZOLE 02/01/2021 6 - Diarrhea SULFA (SULFONAMIDE ANTIBIOTICS) 07/18/2016 2 - Rash 4 - Hives CLINDAMYCIN HCL 07/18/2016 6 - Diarrhea 8 - GI Upset 11 - Vomiting Comments: Reaction: Nausea/vomiting/diarrhea Other Reaction: stomach cramps Sensitivity: Intolerance Date Reviewed: 06/15/2024 Reviewed by: Chasidy Beck MA - Fully Assessed Reason for Visit: Home Care [4073] Prescriptions as of 06/15/2024 - oxyCODONE IR (ROXICODONE) 5 mg immediate release tablet Take 1-2 tablets by mouth every 8 hours as needed for pain for up to 3 days. - insulin glargine (LANTUS SOLOSTAR U-100 INSULIN) 100 unit/mL (3 mL) Inject 30 Units subcutaneously every morning. - metFORMIN (GLUCOPHAGE) 500 mg tablet Take 500 mg by mouth two times a day with meals. - glimepiride (AMARYL) 4 mg tablet Take 4 mg by mouth two times a day with meals. - furosemide (LASIX) 40 mg tablet Take 1 tablet by mouth once daily. - dilTIAZem CD (CARDIZEM CD, CARTIA XT) 120 mg 24 hr capsule Take 1 capsule by mouth once daily. - lisinopril (ZESTRIL) 5 mg tablet Take 1 tablet by mouth once daily. - acetaminophen (TYLENOL) 325 mg tablet Take 2 tablets by mouth every 6 hours as needed for pain. - polyethylene glycol 3350 17 gram packet Take 1 Packet by mouth once daily. Dissolve dose in 4 - 8 ounces of liquid and take as directed. - lancets (ONETOUCH DELICA PLUS LANCET) 33 gauge Use with blood glucose test three times a day. Insulin Dep? Yes - blood sugar diagnostic (ONETOUCH VERIO TEST STRIPS) test strip Use with blood glucose test three times a day. Insulin Dep? Yes - FARXIGA 10 mg tablet TAKE 1 TABLET DAILY WITH BREAKFAST - DULoxetine (CYMBALTA) 60 mg capsule Take 1 capsule by mouth two times a day. - rosuvastatin (CRESTOR) 40 mg tablet take 1 tablet daily - gabapentin (NEURONTIN) 600 mg tablet Take 1 tablet by mouth three times a day for 90 days. - lidocaine-prilocaine (EMLA) 2.5-2.5 % cream APPLY TO AFFECTED AREA NEEDED PRIOR TO CHEMOTHERAPY - semaglutide (OZEMPIC) 1 mg/dose (4 mg/3 mL) pen Inject 1 mg subcutaneously one time a week. - blood sugar diagnostic (ONETOUCH VERIO TEST STRIPS) test strip 1 Strip two times a day. Use with blood glucose test two times a day. Insulin Dep? No - metoprolol tartrate, short acting, (LOPRESSOR) 25 mg tablet Take 1 tablet by mouth every 12 hours. - SITagliptin phosphate (JANUVIA) 100 mg tablet Take 1 tablet by mouth once daily. - ergocalciferol 50,000 unit capsule (VITAMIN D2, DRISDOL) TAKE 1 CAPSULE ONCE A WEEK - apixaban (ELIQUIS) 5 mg tab(s) Take 1 tablet by mouth two times a day. - sodium bicarbonate 650 mg tablet TAKE 2 TABLETS TWICE A DAY - allopurinol (ZYLOPRIM) 100 mg tablet Take 1 tablet by mouth twice daily. - Blood-Glucose Meter 1 Each three times daily. Please match the test strips and lancets - sildenafil (REVATIO) 20 mg tablet Take 3-5 tablets by mouth once daily as needed. 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 Onychomycosis [B35.1] 07/21/2017 05/22/2021 Hypertension, essential [I10] 11/23/2017 Retroperitoneal mass [R19.00] 07/05/2019 Diffuse large B cell lymphoma (HCC) [C83.30] 07/14/2019 Neutropenic sepsis (HCC) [A41.9, D70.9] 09/13/2019 09/16/2019 Nephrostomy status (HCC) [Z93.6] 09/13/2019 05/22/2021 Sepsis due to gram-negative UTI (HCC) [A41.50, *10/25/2019 10/26/2019 Elevated lactic acid level [R79.89] 10/26/2019 10/26/2019 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 Normal [facility] YAMILKA SHARMA ([id number]) 1965 M Date Time Provider Department 06/15/24 TANNA MANSFIELD During your visit today, we recorded the following information about you: Tanna Mansfield LPN 06/15/2024 12:18 PM Signed Najma Sheets, DO Patient declined initially planned visit on 06/15/24. [facility] is planning on initiating services on 8/23/24. Please let us know if you are agreeable to this date. If we do not hear back, we will continue with this planned date. Thank you, JD Tsang Kimberly C, DO 06/15/2024 2:45 PM Signed I agree with date pt requests Najma Bloom DO Allergies As of Date: 06/15/2024 Noted Allergy Reaction ASPARTAME 06/05/2020 5 - Intolerance Comments: Severe headache BACTRIM (SULFAMETHOXAZOLE-TRIMET H*07/18/2016 4 - Hives 5 - Intolerance Comments: Reaction: gas Sensitivity: Intolerance. Sensitivity: Intolerance BIAXIN (CLARITHROMYCIN) 07/18/2016 16 - Unknown Comments: Indigestion/gas INFLUENZA VACCINE TRI-SP -10 10/29/2018 16 - Unknown Comments: Flu MONOSODIUM GLUTAMATE (MSG) 06/05/2020 5 - Intolerance Comments: Severe headache PANTOPRAZOLE 02/01/2021 6 - Diarrhea SULFA (SULFONAMIDE ANTIBIOTICS) 07/18/2016 2 - Rash 4 - Hives CLINDAMYCIN HCL 07/18/2016 6 - Diarrhea 8 - GI Upset 11 - Vomiting Comments: Reaction: Nausea/vomiting/diarrhea Other Reaction: stomach cramps Sensitivity: Intolerance Date Reviewed: 06/15/2024 Reviewed by: Chasidy Beck MA - Fully Assessed Reason for Visit: Home Care [4073] Cmt: Reschedule Prescriptions as of 06/15/2024 - oxyCODONE IR (ROXICODONE) 5 mg immediate release tablet Take 1-2 tablets by mouth every 8 hours as needed for pain for up to 3 days. - insulin glargine (LANTUS SOLOSTAR U-100 INSULIN) 100 unit/mL (3 mL) Inject 30 Units subcutaneously every morning. - metFORMIN (GLUCOPHAGE) 500 mg tablet Take 500 mg by mouth two times a day with meals. - glimepiride (AMARYL) 4 mg tablet Take 4 mg by mouth two times a day with meals. - furosemide (LASIX) 40 mg tablet Take 1 tablet by mouth once daily. - dilTIAZem CD (CARDIZEM CD, CARTIA XT) 120 mg 24 hr capsule Take 1 capsule by mouth once daily. - lisinopril (ZESTRIL) 5 mg tablet Take 1 tablet by mouth once daily. - acetaminophen (TYLENOL) 325 mg tablet Take 2 tablets by mouth every 6 hours as needed for pain. - polyethylene glycol 3350 17 gram packet Take 1 Packet by mouth once daily. Dissolve dose in 4 - 8 ounces of liquid and take as directed. - lancets (ONETOUCH DELICA PLUS LANCET) 33 gauge Use with blood glucose test three times a day. Insulin Dep? Yes - blood sugar diagnostic (ONETOUCH VERIO TEST STRIPS) test strip Use with blood glucose test three times a day. Insulin Dep? Yes - FARXIGA 10 mg tablet TAKE 1 TABLET DAILY WITH BREAKFAST - DULoxetine (CYMBALTA) 60 mg capsule Take 1 capsule by mouth two times a day. - rosuvastatin (CRESTOR) 40 mg tablet take 1 tablet daily - gabapentin (NEURONTIN) 600 mg tablet Take 1 tablet by mouth three times a day for 90 days. - lidocaine-prilocaine (EMLA) 2.5-2.5 % cream APPLY TO AFFECTED AREA NEEDED PRIOR TO CHEMOTHERAPY - semaglutide (OZEMPIC) 1 mg/dose (4 mg/3 mL) pen Inject 1 mg subcutaneously one time a week. - blood sugar diagnostic (ONETOUCH VERIO TEST STRIPS) test strip 1 Strip two times a day. Use with blood glucose test two times a day. Insulin Dep? No - metoprolol tartrate, short acting, (LOPRESSOR) 25 mg tablet Take 1 tablet by mouth every 12 hours. - SITagliptin phosphate (JANUVIA) 100 mg tablet Take 1 tablet by mouth once daily. - ergocalciferol 50,000 unit capsule (VITAMIN D2, DRISDOL) TAKE 1 CAPSULE ONCE A WEEK - apixaban (ELIQUIS) 5 mg tab(s) Take 1 tablet by mouth two times a day. - sodium bicarbonate 650 mg tablet TAKE 2 TABLETS TWICE A DAY - allopurinol (ZYLOPRIM) 100 mg tablet Take 1 tablet by mouth twice daily. - Blood-Glucose Meter 1 Each three times daily. Please match the test strips and lancets - sildenafil (REVATIO) 20 mg tablet Take 3-5 tablets by mouth once daily as needed. 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 Normal [facility] CNPNon 06-14-2024 CNPN Telephone (HCSIND) -------- YAMILKA SHARMA ([id number]) 1965 M Date Time Provider Department 06/14/24 OSIRIS CARBAJAL During your visit today, we recorded the following information about you: Osiris Carbajal, YESSICA 06/14/2024 5:28 PM Signed Called patient to confirm and schedule start of care visit. No answer. Left voicemail. Allergies As of Date: 06/14/2024 Noted Allergy Reaction ASPARTAME 06/05/2020 5 - Intolerance Comments: Severe headache BACTRIM (SULFAMETHOXAZOLE-TRIMET H*07/18/2016 4 - Hives 5 - Intolerance Comments: Reaction: gas Sensitivity: Intolerance. Sensitivity: Intolerance BIAXIN (CLARITHROMYCIN) 07/18/2016 16 - Unknown Comments: Indigestion/gas INFLUENZA VACCINE TRI-SP 09-10/29/2018 16 - Unknown Comments: Flu MONOSODIUM GLUTAMATE (MSG) 06/05/2020 5 - Intolerance Comments: Severe headache PANTOPRAZOLE 02/01/2021 6 - Diarrhea SULFA (SULFONAMIDE ANTIBIOTICS) 07/18/2016 2 - Rash 4 - Hives CLINDAMYCIN HCL 07/18/2016 6 - Diarrhea 8 - GI Upset 11 - Vomiting Comments: Reaction: Nausea/vomiting/diarrhea Other Reaction: stomach cramps Sensitivity: Intolerance Date Reviewed: 06/12/2024 Reviewed by: Makenna Solis RN - Fully Assessed Reason for Visit: Home Care Arrangements [[id number]] Prescriptions as of 06/14/2024 - oxyCODONE IR (ROXICODONE) 5 mg immediate release tablet Take 1-2 tablets by mouth every 8 hours as needed for pain for up to 3 days. - insulin glargine (LANTUS SOLOSTAR U-100 INSULIN) 100 unit/mL (3 mL) Inject 30 Units subcutaneously every morning. - metFORMIN (GLUCOPHAGE) 500 mg tablet Take 500 mg by mouth two times a day with meals. - glimepiride (AMARYL) 4 mg tablet Take 4 mg by mouth two times a day with meals. - furosemide (LASIX) 40 mg tablet Take 1 tablet by mouth once daily. - dilTIAZem CD (CARDIZEM CD, CARTIA XT) 120 mg 24 hr capsule Take 1 capsule by mouth once daily. - lisinopril (ZESTRIL) 5 mg tablet Take 1 tablet by mouth once daily. - acetaminophen (TYLENOL) 325 mg tablet Take 2 tablets by mouth every 6 hours as needed for pain. - polyethylene glycol 3350 17 gram packet Take 1 Packet by mouth once daily. Dissolve dose in 4 - 8 ounces of liquid and take as directed. - lancets (ONETOUCH DELICA PLUS LANCET) 33 gauge Use with blood glucose test three times a day. Insulin Dep? Yes - blood sugar diagnostic (ONETOUCH VERIO TEST STRIPS) test strip Use with blood glucose test three times a day. Insulin Dep? Yes - FARXIGA 10 mg tablet TAKE 1 TABLET DAILY WITH BREAKFAST - DULoxetine (CYMBALTA) 60 mg capsule Take 1 capsule by mouth two times a day. - rosuvastatin (CRESTOR) 40 mg tablet take 1 tablet daily - gabapentin (NEURONTIN) 600 mg tablet Take 1 tablet by mouth three times a day for 90 days. - lidocaine-prilocaine (EMLA) 2.5-2.5 % cream APPLY TO AFFECTED AREA NEEDED PRIOR TO CHEMOTHERAPY - semaglutide (OZEMPIC) 1 mg/dose (4 mg/3 mL) pen Inject 1 mg subcutaneously one time a week. - blood sugar diagnostic (ONETOUCH VERIO TEST STRIPS) test strip 1 Strip two times a day. Use with blood glucose test two times a day. Insulin Dep? No - metoprolol tartrate, short acting, (LOPRESSOR) 25 mg tablet Take 1 tablet by mouth every 12 hours. - SITagliptin phosphate (JANUVIA) 100 mg tablet Take 1 tablet by mouth once daily. - ergocalciferol 50,000 unit capsule (VITAMIN D2, DRISDOL) TAKE 1 CAPSULE ONCE A WEEK - apixaban (ELIQUIS) 5 mg tab(s) Take 1 tablet by mouth two times a day. - sodium bicarbonate 650 mg tablet TAKE 2 TABLETS TWICE A DAY - allopurinol (ZYLOPRIM) 100 mg tablet Take 1 tablet by mouth twice daily. - Blood-Glucose Meter 1 Each three times daily. Please match the test strips and lancets - sildenafil (REVATIO) 20 mg tablet Take 3-5 tablets by mouth once daily as needed. 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 Normal [facility] CNDSon 06-13-2024 CNDS HNO ID: [id number] Author: EVA QUACH MD Service: Hospital Medicine Author Type: Nurse Practitioner Type: Discharge Summary Filed: 06/20/2024 01:28 Note Text: -------- Attestation signed by Eva Quach MD at 06/20/2024 1:28 AM Attending Note I have personally reviewed the PA/EMBEDDER note. Agree with above assessment and plan. Other additions or changes: None SIGNATURE: Eva Quach MD DATE: June 20, 2024 TIME: 1:28 AM -------- DISCHARGE SUMMARY PATIENT NAME: Yamilka Sharma ADMISSION DATE: 06/06/2024 DISCHARGE DATE: 06/13/2024 ATTENDING PHYSICIAN: Eva Quach MD Code Status: Full Code PCP: DO Frandy Everett Readmission Risk Score: 35 The 30 day readmissions risk score is derived from an internally validated risk model which evaluates patient level characteristics, utilization history, medication orders and lab results up until the day of discharge. Patients with a score of 40 or above are considered highest risk for readmission. Specific patient level drivers will be listed at the bottom of the summary. TRANSITIONS OF CARE CRITICAL ISSUES: GLASGOW MEDICATION CHANGES: none Follow up orthopedic and podiatry REASON FOR HOSPITALIZATION/PRINCIPA L DIAGNOSES: aftercare HOSPITAL PROBLEMS: Principal Problem: Aftercare (POA: Yes) Active Problems: Diffuse large B cell lymphoma (HCC) (POA: Yes) Coronary artery disease involving [place] coronary artery of [place] heart without angina pectoris (POA: Yes) Acute kidney injury superimposed on chronic kidney disease (HCC) (HCC) (POA: Yes) Cellulitis and abscess of foot (POA: Yes) Acute pain of left knee (POA: Yes) Diabetic ulcer of toe of right foot associated with type 2 diabetes mellitus, 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 (HCC) (POA: Yes) Acute medial meniscus tear (POA: Yes) Depression (POA: Yes) Resolved Problems: * No resolved hospital problems. * HOSPITAL COURSE: Yamilka Sharma is a 58 year old male with past medical history of chronic Left Knee Pain, Type 2 DM, HTN, Hyperlipidemia, CAD, Paroxysmal Atrial Fibrillation, CKD Stage IIIb, Non-Hodgkin's Lymphoma, Chronic Medi-port, Depression and Obesity, who presented to the [facility] on 05/25/24 with complaints of increased left knee pain after a fall. He was transferred to [facility] for further evaluation. He was treated with kenalog injection to the left knee and he was seen in consultation with ID and podiatry for R great toe infection s/p amputation and completion of antibiotics. He was transferred to [facility] following hospitalization for rehab. Progressed well with PT and OT. Able to walk NWB RLE with walker for 70 ft. Dc home with close follow up PCP, ortho, podiatry. OPERATIONS/PROCEDURE DURING THIS HOSPITALIZATION: * No surgery found * CONSULTS DURING HOSPITALIZATION: Treatment Team: Attending Provider: Eva Quach MD PATIENT CONDITION AT DISCHARGE: Stable DISCHARGE DISPOSITION: Home with Self Care Discharge Physical Exam: VITAL SIGNS: BP 107/72 Pulse 98 Temp 36.7 ?C (98 ?F) (Oral) Resp 18 Ht 182.9 cm (6') Wt 115.6 kg (254 lb 13.6 oz) SpO2 99% BMI 34.56 kg/m? General: NAD, resting comfortably in bed, polite and cooperative HEENT: Normocephalic, atraumatic, Pupils are equal, round, and reactive to light, EOMI, Mucus membranes moist, tongue is pink and midline Lungs: CTA bilaterally without wheezes, rales, rhonchi. Unlabored respiratory effort Heart: Regular rate and rhythm without ectopy Abdomen: Soft, mild discomfort to the periumbilical region, bowel sounds present in all ptaiño, no HSM, no rebound or guarding. Musculoskeletal: Normal muscle bulk and tone. Right Foot Dressing Intact. Patient resting in bed and left knee ROM not attempted. Vascular: Cap refill brisk less than 2 sec. No cyanosis or edema. Neuro: CN II-XII intact. Answers all questions appropriately. Skin: No rashes, lesions, or cellulitis WOUND/SURGICAL SITE CARE: None SUPPLIES OR EQUIPMENT: None DIET: Resume pre-hospital diet ACTIVITY AND EXERCISE: Resume pre-hospital activity FOLLOW UP APPOINTMENTS: Future Appointments Date Time Provider Department Center 06/15/2024 9:15 AM Jennifer Michele DO [facility] 06/23/2024 4:20 PM Najma Bloom DO [facility] [address] [facility] 08/16/2024 10:00 AM Vargas Benton DO CARD [facility] 08/30/2024 3:15 PM Epi Polanco MD [id number] [facility] 12/05/2024 10:[address] PREP [facility] [place] 12/05/2024 11:[address] [facility] WSTR (I-STAT) [facility] [place] 12/12/2024 9:40 AM Martell Waterman MD HEMMED [facility] 12/12/2024 10:00 AM LAB/[facility] HEMMED [facility] ALLERGIES Allergen Reactions Aspartame Intolerance Severe headache (more content not included)... Normal [facility] CNPDana 06-13-2024 JUN Telephone (HPORE2) -------- YAMILKA SHARMA ([id number]) 1965 M Date Time Provider Department 06/13/24 LAURA SMALLS HPORE2 During your visit today, we recorded the following information about you: Laura Smalls 06/13/2024 11:32 AM Signed Date/Time: 06/13/2024 11:31 AM Spoke with YAMILKA SHARMA @ phone #: [phone] - Preferred # for contact: [phone] Have you received help from a home care company in the last 60 days? NO Are you agreeable to [facility] services? YES What address will we be seeing you at? [address] [place] [id number] Do you have any upcoming appointments or things we need to schedule around? 06/15/24, 06/16/24 Do you have a teachable CG or can you manage your care independently? CG FLU SHOT NONE Allergies As of Date: 06/13/2024 Noted Allergy Reaction ASPARTAME 06/05/2020 5 - Intolerance Comments: Severe headache BACTRIM (SULFAMETHOXAZOLE-TRIMET H*07/18/2016 4 - Hives 5 - Intolerance Comments: Reaction: gas Sensitivity: Intolerance. Sensitivity: Intolerance BIAXIN (CLARITHROMYCIN) 07/18/2016 16 - Unknown Comments: Indigestion/gas INFLUENZA VACCINE TRI-SP 09-10 10/29/2018 16 - Unknown Comments: Flu MONOSODIUM GLUTAMATE (MSG) 06/05/2020 5 - Intolerance Comments: Severe headache PANTOPRAZOLE 02/01/2021 6 - Diarrhea SULFA (SULFONAMIDE ANTIBIOTICS) 07/18/2016 2 - Rash 4 - Hives CLINDAMYCIN HCL 07/18/2016 6 - Diarrhea 8 - GI Upset 11 - Vomiting Comments: Reaction: Nausea/vomiting/diarrhea Other Reaction: stomach cramps Sensitivity: Intolerance Date Reviewed: 06/12/2024 Reviewed by: Makenna Solis, RN - Fully Assessed Reason for Visit: Home Care [[id number]] Cmt: CONFIRMATION CALL Prescriptions as of 06/13/2024 - oxyCODONE IR (ROXICODONE) 5 mg immediate release tablet Take 1-2 tablets by mouth every 8 hours as needed for pain for up to 3 days. - oxyCODONE-acetaminophen (PERCOCET) 5-325 mg tablet Take 1 tablet by mouth every 8 hours as needed for pain for up to 7 days. - insulin glargine (LANTUS SOLOSTAR U-100 INSULIN) 100 unit/mL (3 mL) Inject 30 Units subcutaneously every morning. - metFORMIN (GLUCOPHAGE) 500 mg tablet Take 500 mg by mouth two times a day with meals. - glimepiride (AMARYL) 4 mg tablet Take 4 mg by mouth two times a day with meals. - furosemide (LASIX) 40 mg tablet Take 1 tablet by mouth once daily. - dilTIAZem CD (CARDIZEM CD, CARTIA XT) 120 mg 24 hr capsule Take 1 capsule by mouth once daily. - lisinopril (ZESTRIL) 5 mg tablet Take 1 tablet by mouth once daily. - acetaminophen (TYLENOL) 325 mg tablet Take 2 tablets by mouth every 6 hours as needed for pain. - polyethylene glycol 3350 17 gram packet Take 1 Packet by mouth once daily. Dissolve dose in 4 - 8 ounces of liquid and take as directed. - lancets (ONETOUCH DELICA PLUS LANCET) 33 gauge Use with blood glucose test three times a day. Insulin Dep? Yes - blood sugar diagnostic (ONETOUCH VERIO TEST STRIPS) test strip Use with blood glucose test three times a day. Insulin Dep? Yes - FARXIGA 10 mg tablet TAKE 1 TABLET DAILY WITH BREAKFAST - DULoxetine (CYMBALTA) 60 mg capsule Take 1 capsule by mouth two times a day. - rosuvastatin (CRESTOR) 40 mg tablet take 1 tablet daily - gabapentin (NEURONTIN) 600 mg tablet Take 1 tablet by mouth three times a day for 90 days. - lidocaine-prilocaine (EMLA) 2.5-2.5 % cream APPLY TO AFFECTED AREA NEEDED PRIOR TO CHEMOTHERAPY - semaglutide (OZEMPIC) 1 mg/dose (4 mg/3 mL) pen Inject 1 mg subcutaneously one time a week. - blood sugar diagnostic (ONETOUCH VERIO TEST STRIPS) test strip 1 Strip two times a day. Use with blood glucose test two times a day. Insulin Dep? No - metoprolol tartrate, short acting, (LOPRESSOR) 25 mg tablet Take 1 tablet by mouth every 12 hours. - SITagliptin phosphate (JANUVIA) 100 mg tablet Take 1 tablet by mouth once daily. - ergocalciferol 50,000 unit capsule (VITAMIN D2, DRISDOL) TAKE 1 CAPSULE ONCE A WEEK - apixaban (ELIQUIS) 5 mg tab(s) Take 1 tablet by mouth two times a day. - sodium bicarbonate 650 mg tablet TAKE 2 TABLETS TWICE A DAY - allopurinol (ZYLOPRIM) 100 mg tablet Take 1 tablet by mouth twice daily. - Blood-Glucose Meter 1 Each three times daily. Please match the test strips and lancets - sildenafil (REVATIO) 20 mg tablet Take 3-5 tablets by mouth once daily as needed. - albuterol HFA (PROVENTIL HFA, VENTOLIN HFA) 90 mcg/actuation inhaler USE 2 INHALATIONS INSTRUCTED EVERY 4 HOURS NEEDED FOR WHEEZING/SHORTNESS OF BREATH Facility-Administered Medications as of 06/13/2024 - oxyCODONE IR 7.5 mg tab(s) (ROXICODONE) - ondansetron orally disintegrating 4 mg tab(s) (ZOFRAN ODT) - ondansetron (PF) 4 mg injection (ZOFRAN) - cyclobenzaprine 10 mg tab(s) (FLEXERIL) - oxyCODONE IR 5 mg tab(s) (ROXICODONE) - acetaminophen 650 mg tab(s) (TYLENOL) - sodium bicarbonate (more content not included)... Normal [facility] THERAPY NTon 06-13-2024 THERAPY NT HNO ID: [id number] Author: RAMAN CORNEJO, PT Service: Physical Therapy Author Type: Physical Therapist Type: Therapy (PT/OT/Speech/Resp) Filed: 06/13/2024 13:34 Note Text: Physical Therapy Longterm Facility Discharge Summary ROOM: [place] [address] Discharge Therapy Services Discharged (date): 06/13/24 Discharged To: Home Home Exercise Program Status: Independent Ability To Apply Precautions Upon Discharge: Independent Recommended Discharge Equipment: Wheeled Walker PT 6 Clicks Score: 21 GOAL REVIEW: Patient/Caregiver Goals: Walk, Go Home (to walk with cane) Patient has met PT goals. Ready for Home discharge with home PT to follow. Goals: Patient will demonstrate progress with functional mobility to allow safe discharge to home with available support and/or physical assistance. Transfer Supine to/from Sit with: Modified Independent Transfer Sit to/from Stand with: Modified Independent Ambulate with: Modified Independent Distance: 50 Device: Wheeled Walker Ambulate Up and Down Steps with: Modified Independent Number of Steps: 4 Device: Rail (B HR) Car Transfer with: Modified Independent Propel Wheelchair with: Modified Independent Distance: 150' ROM: Patient will improve L knee ROM to -5* of extension and and 90* of flexion. CURRENT FUNCTIONAL STATUS: Most recent performance Current Functional Mobility Assist Level Additional Information Rolling Modified Independent Supine to Sit Supervision Sit to Supine Supervision Scooting Supervision Sit to Stand Stand By Assistance, Supervision Stand to Sit Stand By Assistance, Supervision Bed to Chair Stand By Assistance Bed To Chair Transfer Type: Stepping Bed To Chair Transfer Equipment: Wheeled Walker (declines use of gait belt) Toilet/Commode Modified Independent Gait Stand By Assistance Gait Device: Wheeled Walker Gait Distance (feet): 70 x 2 Stairs (fatigued following ambulation with increased L knee pain, unable to complete this session.) Curb Step Car Transfer Blank patiño indicate activity not attempted Gait Deviations Right Lower Extremity: Step length decreased, Weight bearing decreased (heel weight bearing only) Gait Deviations Left Lower Extremity: Foot clearance decreased, Step length decreased, Stance time decreased, Weight bearing decreased General Deviations/Observations: Antalgic gait, Kate decreased, Difficulty changing direction/turning, Flexed trunk posture, Loss of Balance, Non-functional gait speed, UE weight bearing on assistive device excessive Balance: Dynamic Standing Dynamic Standing Balance: Fair Patient accepts minimal challenge, able to maintain balance while turning head/trunk Activity Tolerance: Standing Activity Standing Activity: ambulation in halls Standing Activity Tolerance (in minutes): 5 PT JH-HLM: 7 - Walk 25 feet or more Functional Performance Test Functional Performance Test: 10 Meter Walk Test 10 Meter Walk Test Trial 1 (seconds): 22 10 Meter Walk Test Trial 2 (seconds): 24 10 Meter Walk Test Average (m/sec): 0.26 SIGNATURE: Raman Cornejo PT PATIENT NAME: Yamilka Sharma DATE: June 13, 2024 TIME: 1:33 PM Normal [facility] THERAPY NT HNO ID: [id number] Author: CHANTEL ELLIS OTR/Juan Service: Occupational Therapy Author Type: Oil Well Perforator Operator Type: Therapy (PT/OT/Speech/Resp) Filed: 06/14/2024 07:43 Note Text: -------- Attestation signed by Chantel Ellis OTR/L at 06/14/2024 7:43 AM I reviewed and agree with the documentation corresponding to this therapy visit. SIGNATURE: JAYLEN Huff DATE: June 14, 2024 TIME: 7:43 AM -------- Occupational Therapy Longterm Facility Treatment Summary SERVICE DATE: 06/13/2024 SERVICE TIME: 1118 to 1138 ROOM: [place] [address] OT 6 Clicks Score: 20 DISCHARGE RECOMMENDATIONS Home OT Recommended Discharge Disposition Comments: Pt is expected to return home with spouse/dtr to assist as needed; home health OT is recommended to continue after discharge home Anticipated Discharge Needs: Family Training, Physical Assist at Home, Supervision at Home, Equipment Recommended Discharge Equipment: Elevated Toilet Seat, Long Handled Sponge, Dressing Stick, Sock Aid, Walker bag/basket, To Be Determined, Grab Bars-Toilet, Wheelchair GOALS Patient will demonstrate progress with self-care, cognitive and/or coping needs identified to allow safe discharge to home with available support and/or physical assistance. Lower Body Bathing with: Stand By Assistance Lower Body Dressing with: Minimal Assistance Toilet Hygiene with: Stand By Assistance Chair Transfer with: Modified Independent Toilet Transfer with: Modified Independent Shower Transfer with: Contact Guard Assistance Tolerate (minutes of functional activity): 60 Functional Activity with: Stand By Assistance Kitchen Mobility Tasks with: Stand By Assistance Progress Toward Goals: Progressing as expected Rehab Potential: Good ASSESSMENT Response to Therapy Interventions: Good Participation in Activities Pt provided d/c instructions containing precautions, assist/performance recommendations, and equipement recommendations. Pt verbalizing understanding to all information provided. HHT to follow. Plan for Next Visit: ((Pt d/c'd 06/13/24)) PRECAUTIONS Weight Bearing Restrictions, Diabetic surgical shoe to RLE for transfers/ambulating short distances Left Lower Extremity Weight Bearing Status: WBAT Right Lower Extremity Weight Bearing Status: Heel Weight Bearing (with surgical shoe for short distances) SUBJECTIVE Pt completing d/c planning as he is set to d/c later this day. Pt somewhat aggitated throughout session reporting, It's your and Bens fault I got the chop. You're the ones that signed off on this. FUNCTIONAL STATUS Activities of Daily Living Assist Level Additional Information Feeding Independent Grooming Set Up, Additional Information Bathing Upper Body Modified Independent, Set Up, Additional Information Bathing Lower Body Contact Guard Assistance, Additional Information Dressing Upper Body Independent, Additional Information Dressing Lower Body Moderate Assistance Toileting Modified Independent Instrumental Activities of Daily Living Assist Level Additional Information Meal/Beverage Prep Moderate Assistance Cleaning Maximal Assistance Laundry Maximal Assistance Medication Management with Strategies Mobility Assist Level Additional Information Bed Mobility Supine To Sit: Stand By Assistance, Additional Information Sit to Stand Contact Guard Assistance Stand to Sit Contact Guard Assistance Bed to Chair Contact Guard Assistance Bed To Chair Transfer Type: Stepping Bed To Chair Transfer Equipment: Wheeled Walker, Gait Belt Toilet/Commode Contact Guard Assistance, Additional Information Shower Functional Mobility Contact Guard Assistance, Additional Information Functional Mobility Device: Wheeled Walker CURRENT HOSPITAL COURSE Patient is a 58 year old male admitted [facility] from [facility]. He presented to [facility] on 05/25/24 with compliants of L knee pain after a fall. He had recently been admitted to [facility] 05/12-05/19 for sepsis, cellulitius R first toe and acute L knee pain. Upon presentation to [facility] XR of L knee showed a moderate sized effusion, patient was then transfered to [facility]. On 05/27 ortho performed a L knee aspiration, MRI of L knee showed no fracture, a medial meniscal tear and large join effusion with mild synovitis and OA. Podiatry was consulted due to chronic osteomyelitis , on 05/30 he underwent a R great toe amputation, R foot IANDD, bone biopsy and sharp debridement on R foot. Patient now presents to rehab, he is WBAT on L LE and heel weight bearing only on R LE with surgical shoe donned. Relevant Past Medical History: DM2, afib, HTN, CAD, obesity, non-hodgkin's lymphoma s/p chemo 3 yrs ago with chronic med port in plac (more content not included)... [facility] THERAPY NT HNO ID: [id number] Author: OSIRIS ALBERTO PT Service: Physical Therapy Author Type: Manager Strategic Type: Therapy (PT/OT/Speech/Resp) Filed: 06/14/2024 15:27 Note Text: -------- Attestation signed by Osiris Alberto, PT at 06/14/2024 3:27 PM I reviewed and agree with the documentation corresponding to this therapy visit. SIGNATURE: Osiris Alberto PT DATE: June 14, 2024 TIME: 3:27 PM -------- PT Discharge Instructions The PT team at [facility] has this list of discharge instructions specific to your home going needs. Your anticipated discharge date is 06/13/2024. Please share these discharge instructions with family as well as any care providers coming to your home to assist with the continuity of your care. Weight Bearing precautions: Heel weight bearing to right lower extremity Weight bearing as tolerated to left lower extremity Precautions: Wear surgical shoe on right lower extremity when weight bearing Recommended equipment for home: Wheeled walker, Wheelchair, and Gait belt Additional instructions: 18/05 supervision and assist recommended initially, Use the walker at all times when walking and transferring, Stay within the walker at all times, Push up from the arm rests when standing from chair, Reach back for the arm rests when sitting, Have help when completing the stairs as instructed, When managing stairs, lead up with the stronger leg, down with the weaker leg - Up with the good, down with the bad, Have someone nearby when walking, Complete home exercise as instructed., Walk frequently throughout the day. A good rule of thumb is to walk once every hour, and wear surgical shoe when weight bearing through right lower extremity. Thank you for entrusting your care to us. If you have questions regarding PT please contact the PT team at [phone]. Osiris Alberto PT Katie Lemus PT Raman Cornejo PT Marek Kline [employer] Triston Phelan PTA [facility] THERAPY NT HNO ID: [id number] Author: CHANTEL ELLIS OTR/L Service: Occupational Therapy Author Type: Oil Well Perforator Operator Type: Therapy (PT/OT/Speech/Resp) Filed: 06/14/2024 07:43 Note Text: -------- Attestation signed by Chantel Ellis OTR/L at 06/14/2024 7:43 AM I reviewed and agree with the documentation corresponding to this therapy visit. SIGNATURE: JAYLEN Huff DATE: June 14, 2024 TIME: 7:43 AM -------- OT Discharge Instructions The OT team at [facility] has this list of discharge instructions specific to your home going needs. Your anticipated discharge date is 06/13. Please share these discharge instructions with family as well as any care providers coming to your home to assist with the continuity of your care. Weight Bearing precautions: Heel Weight Bearing to Right Lower Extremity while wearing surgical boot only. Precautions: None Recommended equipment for home: 3in1 commode/safety frame, Shower chair, Bar Attendant, Dressing stick, Sock Aid, and Walker bag/tray Additional instructions: 24 hour assistance is recommended, Complete lower body bathing and dressing using adaptive equipment, Have someone walk with you to the bathroom holding the gait belt, When getting dressed, put your weaker side in first, then the stronger side, Do not attempt to get in/out of the tub until instructed by home therapist, Have assist with meals, housework and laundry, and Continue to complete upper body exercises for strengthening. As you heal and are released from the doctor, begin to take on your typical household duties. Thank you for entrusting your care to us. If you have questions regarding OT please contact the OT team at [phone]. Jocy Hernadez OT Chantel Ellis OT Kenia Neil OT Janett Sarmiento OT Yen QUIGLEY [facility] THERAPY NT HNO ID: [id number] Author: CHANTEL ELLIS OTR/Juan Service: Occupational Therapy Author Type: Occupational Therapist Type: Therapy (PT/OT/Speech/Resp) Filed: 06/16/2024 07:54 Note Text: -------- Summary: OT discharge -------- Occupational Therapy Longterm Facility Discharge Summary ROOM: [place] [address] Discharge Therapy Services Discharged (date): 06/13/24 Discharged To: Home Home Exercise Program Status: Independent Ability To Apply Precautions Upon Discharge: Independent Recommended Discharge Equipment: Elevated Toilet Seat, Long Handled Sponge, Dressing Stick, Sock Aid, Walker bag/basket, To Be Determined, Grab Bars-Toilet, Wheelchair Written Patient Information Provided: Discharge Plan Instructions OT 6 Clicks Score: 21 GOAL REVIEW: Progress made towards goals; pt cont. To complete transfers w/ CGA, UB ADLS w/ PA, LB ADLS with mod A; PA for toileting; Mod A for kitchen mobility; 18/05 assist was recommended at d/c; with recommendations for AE for safety (3in1, shower chair, cardiovascular invasive specialist, dressing stick, sock aid, and walker tray); Pt was educated on items and compensatory strategies and given handouts. Patient/Caregiver Goals: Reduce ADL/IADL barriers (improve walking) Goals: Patient will demonstrate progress with self-care, cognitive and/or coping needs identified to allow safe discharge to home with available support and/or physical assistance. Lower Body Bathing with: Stand By Assistance Lower Body Dressing with: Minimal Assistance Toilet Hygiene with: Stand By Assistance Chair Transfer with: Modified Independent Toilet Transfer with: Modified Independent Shower Transfer with: Contact Guard Assistance Tolerate (minutes of functional activity): 60 Functional Activity with: Stand By Assistance Kitchen Mobility Tasks with: Stand By Assistance CURRENT FUNCTIONAL STATUS: Most recent performance Current Activities of Daily Living Assist Level Additional Information Feeding Independent Grooming Set Up, Additional Information Bathing Upper Body Modified Independent, Set Up, Additional Information Bathing Lower Body Contact Guard Assistance, Additional Information Dressing Upper Body Independent, Additional Information Dressing Lower Body Moderate Assistance Toileting Modified Independent Instrumental Activities of Daily Living Assist Level Additional Information Meal/Beverage Prep Moderate Assistance Cleaning Maximal Assistance Laundry Maximal Assistance Medication Management with Strategies Functional Mobility Assist Level Additional Information Rolling Supine to Sit Stand By Assistance, Additional Information Sit to Supine Scooting Stand By Assistance, Additional Information Sit to Stand Contact Guard Assistance Stand to Sit Contact Guard Assistance Bed to Chair Contact Guard Assistance Stepping Wheeled Walker, Gait Belt Toilet/Commode Contact Guard Assistance, Additional Information Shower Functional Mobility Contact Guard Assistance, Additional Information Wheeled Walker Blank patiño indicate activity not attempted Transitions: Pt amb from EOB to w/c, throughout kitchen, from kitchen to mens commode, to w/c. Balance: Static Sitting, Static Standing, Dynamic Standing Static Sitting Balance: Good Patient able to maintain balance without handhold support, limited postural sway Static Standing Balance: Fair Patient able to maintain balance with handhold support, may require occasional minimal assistance Dynamic Standing Balance: Fair Patient accepts minimal challenge, able to maintain balance while turning head/trunk Activity Tolerance: Standing Activity Standing Activity: standing aspects of ADLs Standing Activity Tolerance (in minutes): 2 SIGNATURE: Chantel Ellis OTR/L PATIENT NAME: Yamilka Sharma DATE: June 16, 2024 TIME: 7:52 AM [facility] THERAPY NT HNO ID: [id number] Author: JANETT SARMIENTO OT/Juan Service: ? Author Type: Occupational Therapist Type: Therapy (PT/OT/Speech/Resp) Filed: 06/13/2024 17:27 Note Text: Occupational Therapy Longterm Facility Discharge Summary ROOM: [place] [address] Recommended Discharge Equipment: Elevated Toilet Seat, Long Handled Sponge, Dressing Stick, Sock Aid, Walker bag/basket, To Be Determined, Grab Bars-Toilet, Wheelchair Written Patient Information Provided: Discharge Plan Instructions OT 6 Clicks Score: 20 GOAL REVIEW: Patient/Caregiver Goals: Reduce ADL/IADL barriers (improve walking) Goals: Patient will demonstrate progress with self-care, cognitive and/or coping needs identified to allow safe discharge to home with available support and/or physical assistance. Lower Body Bathing with: Stand By Assistance Lower Body Dressing with: Minimal Assistance Toilet Hygiene with: Stand By Assistance Chair Transfer with: Modified Independent Toilet Transfer with: Modified Independent Shower Transfer with: Contact Guard Assistance Tolerate (minutes of functional activity): 60 Functional Activity with: Stand By Assistance Kitchen Mobility Tasks with: Stand By Assistance CURRENT FUNCTIONAL STATUS: Most recent performance Current Activities of Daily Living Assist Level Additional Information Feeding Independent Grooming Set Up, Additional Information Bathing Upper Body Modified Independent, Set Up, Additional Information Bathing Lower Body Contact Guard Assistance, Additional Information Dressing Upper Body Independent, Additional Information Dressing Lower Body Moderate Assistance Toileting Modified Independent Instrumental Activities of Daily Living Assist Level Additional Information Meal/Beverage Prep Moderate Assistance Cleaning Maximal Assistance Laundry Maximal Assistance Medication Management with Strategies Functional Mobility Assist Level Additional Information Rolling Supine to Sit Stand By Assistance, Additional Information Sit to Supine Scooting Stand By Assistance, Additional Information Sit to Stand Contact Guard Assistance Stand to Sit Contact Guard Assistance Bed to Chair Contact Guard Assistance Stepping Wheeled Walker, Gait Belt Toilet/Commode Contact Guard Assistance, Additional Information Shower Functional Mobility Contact Guard Assistance, Additional Information Wheeled Walker Blank patiño indicate activity not attempted Transitions: Pt amb from EOB to w/c, throughout kitchen, from kitchen to mens commode, to w/c. Balance: Static Sitting, Static Standing, Dynamic Standing Static Sitting Balance: Good Patient able to maintain balance without handhold support, limited postural sway Static Standing Balance: Fair Patient able to maintain balance with handhold support, may require occasional minimal assistance Dynamic Standing Balance: Fair Patient accepts minimal challenge, able to maintain balance while turning head/trunk Activity Tolerance: Standing Activity Standing Activity: standing aspects of ADLs Standing Activity Tolerance (in minutes): 2 SIGNATURE: Janett Sarmiento OT/L PATIENT NAME: Yamilka Sharma DATE: June 13, 2024 TIME: 5:27 PM [facility] NURSING PROGon 06-11-2024 NURSING PROG HNO ID: [id number] Author: MAKENNA SOLIS RN Service: Nursing Author Type: Registered Nurse Type: Nursing Progress Note Filed: 06/12/2024 07:40 Note Text: Other- Patient refusing dressing change to right foot. Attempted to educated patient, patient still refusing and patient stating I don't want to hear a lecture [facility] NURSING PROG HNO ID: [id number] Author: SIN BOWIE RN Service: ASSESSMENT Author Type: Registered Nurse Type: Nursing Progress Note Filed: 06/11/2024 20:46 Note Text: Patient is agitated. Not happy with roommate. States give me my shoes and that wheelchair, Im leaving [employer] now. Herminio Carbajal CUSTODIAL WORKER and Nursing Sup. Contacted. Patient wheeled self to selerium. Nurse Sup. Here to talk to patient. [facility] Basic metabolic 2000 panelon 06-10-2024 Anion gap [Moles/Vol] 13 mmol/L Normal 8-15 [facility] Comment on above: Order Comment: Speci men Type: BLOOD SPECIMENOrdering Facility: [facility] Address: [address] [place] [address] Performed By: #### 2 4321-2 ####[facility] [place] LABCLIA [id number] [place] [address] [place] Calcium [Mass/Vol] 9.0 mg/dL Normal 8.5-10.2 [facility] Comment on above: Order Comment: Speci men Type: BLOOD SPECIMENOrdering Facility: [facility] Address: [facility] [place] [address] Performed By: #### 2 4321-2 ####[facility] [place] LABCLIA [id number] [place] [address] [place] Chloride [Moles/Vol] 99 mmol/L Normal 98-107 [facility] Comment on above: Order Comment: Speci men Type: BLOOD SPECIMENOrdering Facility: [facility] Address: [address] [place] [address] Performed By: #### 2 4321-2 ####[facility] [place] LABCLIA [id number] [place] [address] [place] CO2 [Moles/Vol] 25 mmol/L Normal 22-30 [facility] Comment on above: Order Comment: Speci men Type: BLOOD SPECIMENOrdering Facility: [facility] Address: [address] [place] [address] Performed By: #### 2 4321-2 ####[facility] LABCLIA [id number] [facility] [place] [address] [place] Creatinine [Mass/Vol] 1.65 mg/dL High 0.73-1.22 [facility] Comment on above: Order Comment: Speci men Type: BLOOD SPECIMENOrdering Facility: [facility] Address: [facility] [place] [address] Performed By: #### 2 4321-2 ####[facility] [place] LABCLIA [id number] [facility] [place] [address] [place] Creatinine and Glomerular filtration rate.predicted panel (S/P/Bld) 48 mL/min/1.73m??? Low >=60 [facility] Comment on above: Order Comment: Santo malik Type: BLOOD SPECIMENOrdering Facility: [facility] Address: [address] [place] [address] Result Comment: Karissa mated Glomerular Filtration Rate (eGFR) is calculated using the 2020 CKD-EPI creatinine equation. This equation utilizes serum creatinine, sex, and age as parameters. The creatinine assay has traceable calibration to isotope dilution-mass spectrometry. Refer to KDIGO guidelines for clinical interpretation. In patients with unstable renal function, e.g. those with acute kidney injury, the eGFR may not accurately reflect actual GFR. Performed By: #### 2 4321-2 ####[facility] LABCLIA [id number] [place] [address] [place] Glucose [Mass/Vol] 102 mg/dL High 74-99 [facility] Comment on above: Order Comment: Santo malik Type: BLOOD SPECIMENOrdering Facility: [facility] Address: [address] [place] [address] Result Comment: The [place] Diabetes Association (ADA) provides guidance for cutoff values for fasting glucose and random glucose. The ADA defines fasting as no caloric intake for at least 8 hours. Fasting plasma glucose results between 100 to 125 mg/dL indicate increased risk for diabetes (prediabetes). Fasting plasma glucose results greater than or equal to 126 mg/dL meet the criteria for diagnosis of diabetes. In the absence of unequivocal hyperglycemia, results should be confirmed by repeat testing. In a patient with classic symptoms of hyperglycemia or hyperglycemic crisis, random plasma glucose results greater than or equal to 200 mg/dL meet the criteria for diagnosis of diabetes. Reference: Standards of Medical Care in Diabetes 2016, [place] [employer] Association. Diabetes Care. 2016.39(Suppl 1). Performed By: #### 2 4321-2 ####[facility] LABCLIA [id number] [place] [address] [place] Potassium [Moles/Vol] 4.2 mmol/L Normal 3.7-5.1 [facility] Comment on above: Order Comment: Santo malik Type: BLOOD SPECIMENOrdering Facility: [facility] Address: [address] [place] [address] Performed By: #### 2 4321-2 ####[facility] LABCLIA [id number] [place] [address] [place] [facility] Sodium [Moles/Vol] 137 mmol/L Normal 136-144 [facility] Comment on above: Order Comment: Speci men Type: BLOOD SPECIMENOrdering Facility: [facility] Address: [address] [place] [address] Performed By: #### 2 4321-2 ####[facility] LABCLIA [id number] [facility] [place] [address] [place] Urea nitrogen [Mass/Vol] 37 mg/dL High 9-24 [facility] Comment on above: Order Comment: Speci men Type: BLOOD SPECIMENOrdering Facility: [facility] Address: [address] [place] [address] Performed By: #### 2 4321-2 ####[facility] LABCLIA [id number] [place] [address] [facility] CBC panel Auto (Bld)on 06-10 Erythrocyte distribution width (RBC) [Ratio] 14.7 % Normal 11.5-15.0 [facility] Comment on above: Order Comment: Speci men Type: BLOOD SPECIMENOrdering Facility: [facility] Address: [address] [place] [address] Performed By: #### 5 8410-2 ####[facility] LABCLIA [id number] [facility] [place] [address] [place] Hematocrit (Bld) [Volume fraction] 31.0 % Low 39.0-51.0 [facility] Comment on above: Order Comment: Speci men Type: BLOOD SPECIMENOrdering Facility: [facility] Address: [address] [place] [address] Performed By: #### 5 8410-2 ####[facility] LABCLIA [id number] [place] [address] [facility] [place] Hemoglobin (Bld) [Mass/Vol] 9.7 g/dL Low 13.0-17.0 [facility] Comment on above: Order Comment: Speci men Type: BLOOD SPECIMENOrdering Facility: [facility] Address: [address] [place] [address] Performed By: #### 5 8410-2 ####[facility] LABCLIA [id number] [place] [address] [place] [facility] MCH (RBC) [Entitic mass] 25.5 pg Low 26.0-34.0 [facility] Comment on above: Order Comment: Speci men Type: BLOOD SPECIMENOrdering Facility: [facility] Address: [address] [place] [address] Performed By: #### 5 8410-2 ####[facility] LABCLIA [id number] [place] [address] [place] [facility] MCHC (RBC) [Mass/Vol] 31.3 g/dL Normal 30.5-36.0 [facility] Comment on above: Order Comment: Speci men Type: BLOOD SPECIMENOrdering Facility: [facility] Address: [address] [place] [address] Performed By: #### 5 8410-2 ####[facility] LABCLIA [id number] [place] [address] [facility] [place] MCV (RBC) [Entitic vol] 81.4 fL Normal 80.0-100.0 [facility] Comment on above: Order Comment: Speci men Type: BLOOD SPECIMENOrdering Facility: [facility] Address: [address] [place] [address] Performed By: #### 5 8410-2 ####[facility] LABCLIA [id number] [place] [address] [facility] Platelet mean volume (Bld) [Entitic vol] 10.0 fL Normal 9.0-12.7 [facility] Comment on above: Order Comment: Speci men Type: BLOOD SPECIMENOrdering Facility: [facility] Address: [address] [place] [address] Performed By: #### 5 8410-2 ####[facility] LABCLIA [id number] [place] [address] [facility] Platelets (Bld) [#/Vol] 175 10*3/uL Normal 150-400 [facility] Comment on above: Order Comment: Speci men Type: BLOOD SPECIMENOrdering Facility: [facility] Address: [address] [place] [address] Performed By: #### 5 8410-2 ####[facility] LABCLIA [id number] [place] [address] [facility] RBC (Bld) [#/Vol] 3.81 10*6/uL Low 4.20-6.00 [facility] Comment on above: Order Comment: Speci men Type: BLOOD SPECIMENOrdering Facility: [facility] Address: [address] [place] [address] Performed By: #### 5 8410-2 ####[facility] LABCLIA [id number] [address] WBC (Bld) [#/Vol] 7.23 10*3/uL Normal 3.70-11.00 [facility] Comment on above: Order Comment: Speci men Type: BLOOD SPECIMENOrdering Facility: [facility] Address: [address] [place] [address] Performed By: #### 5 8410-2 ####[facility] LABCLIA [id number] [place] [address] [facility] CNPDana 06-10-2024 CNPN Telephone (HCSIND) -------- YAMILKA SHARMA ([id number]) 1965 Date Time Provider Department 06/10/24 TANAN [place] HCSIND During your visit today, we recorded the following information about you: Tanna Mansfield LPN 06/10/2024 12:35 PM Signed Najma Bloom, DO Please advise if you are agreeable to signing and following for [facility] services? Our Clinicians will be sending the Plan of Care to you for review and approval. They will reach out for any appropriate orders required to provide home care services for the patient. We are not able to initiate HHC services without a following provider. Home care clinicians may also obtain orders from [facility] Virtualist Providers Thank you and we would be happy to answer any questions. Tanna Mansfield LPN 06/10/2024 12:35 PM Najma Bloom DO 06/13/2024 11:36 AM Signed Yes will sign and follow Najma Sheets, DO Allergies As of Date: 06/10/2024 Noted Allergy Reaction ASPARTAME 06/05/2020 5 - Intolerance Comments: Severe headache BACTRIM (SULFAMETHOXAZOLE-TRIMET H*07/18/2016 4 - Hives 5 - Intolerance Comments: Reaction: gas Sensitivity: Intolerance. Sensitivity: Intolerance BIAXIN (CLARITHROMYCIN) 07/18/2016 16 - Unknown Comments: Indigestion/gas INFLUENZA VACCINE TRI-SP 09-10 10/29/2018 16 - Unknown Comments: Flu MONOSODIUM GLUTAMATE (MSG) 06/05/2020 5 - Intolerance Comments: Severe headache PANTOPRAZOLE 02/01/2021 6 - Diarrhea SULFA (SULFONAMIDE ANTIBIOTICS) 07/18/2016 2 - Rash 4 - Hives CLINDAMYCIN HCL 07/18/2016 6 - Diarrhea 8 - GI Upset 11 - Vomiting Comments: Reaction: Nausea/vomiting/diarrhea Other Reaction: stomach cramps Sensitivity: Intolerance Date Reviewed: 06/10/2024 Reviewed by: Luda Rajan RN - Fully Assessed Reason for Visit: Home Care [4073] Cmt: to follow Prescriptions as of 06/13/2024 - oxyCODONE IR (ROXICODONE) 5 mg immediate release tablet Take 1-2 tablets by mouth every 8 hours as needed for pain for up to 3 days. - oxyCODONE-acetaminophen (PERCOCET) 5-325 mg tablet Take 1 tablet by mouth every 8 hours as needed for pain for up to 7 days. - insulin glargine (LANTUS SOLOSTAR U-100 INSULIN) 100 unit/mL (3 mL) Inject 30 Units subcutaneously every morning. - metFORMIN (GLUCOPHAGE) 500 mg tablet Take 500 mg by mouth two times a day with meals. - glimepiride (AMARYL) 4 mg tablet Take 4 mg by mouth two times a day with meals. - furosemide (LASIX) 40 mg tablet Take 1 tablet by mouth once daily. - dilTIAZem CD (CARDIZEM CD, CARTIA XT) 120 mg 24 hr capsule Take 1 capsule by mouth once daily. - lisinopril (ZESTRIL) 5 mg tablet Take 1 tablet by mouth once daily. - acetaminophen (TYLENOL) 325 mg tablet Take 2 tablets by mouth every 6 hours as needed for pain. - polyethylene glycol 3350 17 gram packet Take 1 Packet by mouth once daily. Dissolve dose in 4 - 8 ounces of liquid and take as directed. - lancets (FlutherTOUCH DELICA PLUS LANCET) 33 gauge Use with blood glucose test three times a day. Insulin Dep? Yes - blood sugar diagnostic (ONETOUCH VERIO TEST STRIPS) test strip Use with blood glucose test three times a day. Insulin Dep? Yes - FARXIGA 10 mg tablet TAKE 1 TABLET DAILY WITH BREAKFAST - DULoxetine (CYMBALTA) 60 mg capsule Take 1 capsule by mouth two times a day. - rosuvastatin (CRESTOR) 40 mg tablet take 1 tablet daily - gabapentin (NEURONTIN) 600 mg tablet Take 1 tablet by mouth three times a day for 90 days. - lidocaine-prilocaine (EMLA) 2.5-2.5 % cream APPLY TO AFFECTED AREA NEEDED PRIOR TO CHEMOTHERAPY - semaglutide (OZEMPIC) 1 mg/dose (4 mg/3 mL) pen Inject 1 mg subcutaneously one time a week. - blood sugar diagnostic (FlutherTOUCH VERIO TEST STRIPS) test strip 1 Strip two times a day. Use with blood glucose test two times a day. Insulin Dep? No - metoprolol tartrate, short acting, (LOPRESSOR) 25 mg tablet Take 1 tablet by mouth every 12 hours. - SITagliptin phosphate (JANUVIA) 100 mg tablet Take 1 tablet by mouth once daily. - ergocalciferol 50,000 unit capsule (VITAMIN D2, DRISDOL) TAKE 1 CAPSULE ONCE A WEEK - apixaban (ELIQUIS) 5 mg tab(s) Take 1 tablet by mouth two times a day. - sodium bicarbonate 650 mg tablet TAKE 2 TABLETS TWICE A DAY - allopurinol (ZYLOPRIM) 100 mg tablet Take 1 tablet by mouth twice daily. - Blood-Glucose Meter 1 Each three times daily. Please match the test strips and lancets - sildenafil (REVATIO) 20 mg tablet Take 3-5 tablets by mouth once daily as needed. - albuterol HFA (PROVENTIL HFA, VENTOLIN HFA) 90 mcg/actuation inhaler USE 2 INHALATIONS INSTRUCTED EVERY 4 HOURS NEEDED FOR WHEEZING/SHORTNESS OF BREATH Facility-Administered Medications as of 06/13/2024 - oxyCODONE IR 7.5 mg tab(s) (ROXICODONE) - ondansetron orally disintegrating 4 mg tab(s) (ZOFRAN ODT) - ondansetron (PF) 4 mg injection (ZOFRAN) (more content not included)... Normal [facility] ECG COMPLETEon 06-10-2024 ECG COMPLETE Ventricular Rate : 8 4 BPM Atrial Rate : 84 BPM P-R Interval : 212 ms QRS Duration : 92 ms Q-T Interval : 368 ms QTC Calculation(Bazett) : 434 ms Calculated P Noble : 71 degrees Calculated R Noble : 10 degrees Calculated T Noble : 61 degrees SINUS RHYTHM WITH 1ST DEGREE A-V BLOCK OTHERWISE NORMAL ECG NO PREVIOUS ECGS AVAILABLE Confirmed by MD MCINTOSH VINAYAK ([id number]) on 06/11/2024 10:54:11 PM NAME : YAMILKA SHARMA PID : [id number] : 1965 Gender : Male Race : ORD : [id number] Procedure Date : Jun 10 2024 13:22:44 Edit Date : Jun 11 2024 22:54:13 Diagnosis: SINUS RHYTHM WITH 1ST DEGREE A-V BLOCK OTHERWISE NORMAL ECG NO PREVIOUS ECGS AVAILABLE Confirmed by MD MCINTOSH VINAYAK ([id number]) on 06/11/2024 10:54:11 PM Test Reason : Chest Pain Location : 191 : LDCARD 0112 Overread By : MD MCINTOSH VINAYAK Edited By : MD MCINTOSH VINAYAK Referred By : , Acquired by : MARBELLA PALMER [facility] THERAPY NTon 06-10-2024 THERAPY NT HNO ID: [id number] Author: OSIRIS ALBERTO PT Service: Physical Therapy Author Type: Manager Strategic Type: Therapy (PT/OT/Speech/Resp) Filed: 06/10/2024 14:41 Note Text: -------- Attestation signed by Osiris Alberto PT at 06/10/2024 2:41 PM I reviewed and agree with the documentation corresponding to this therapy visit. SIGNATURE: Osiris Alberto PT DATE: June 10, 2024 TIME: 2:41 PM -------- Physical Therapy Longterm Facility Treatment Summary SERVICE DATE: 06/10/2024 SERVICE TIME: 1257 to 1332 ROOM: [place] [address] PT 6 Clicks Score: 21 DISCHARGE RECOMMENDATIONS Home PT Recommended Discharge Disposition Comments: recommending home PT with assist from prn Anticipated Discharge Needs: Family Training, Physical Assist at Home, Supervision at Home, Equipment Recommended Discharge Equipment: Wheeled Walker GOALS Patient will demonstrate progress with functional mobility to allow safe discharge to home with available support and/or physical assistance. Transfer Supine to/from Sit with: Modified Independent Transfer Sit to/from Stand with: Modified Independent Ambulate with: Modified Independent Distance: 50 Device: Wheeled Walker Ambulate Up and Down Steps with: Modified Independent Number of Steps: 4 Device: Rail (B HR) ROM: Patient will improve L knee ROM to -5* of extension and and 90* of flexion. Car Transfer with: Modified Independent Propel Wheelchair with: Modified Independent Distance: 150' Rehab Potential: Good Progress Toward Goals: Progressing as expected ASSESSMENT Response to Therapy Interventions: Limited Participation, Low Activity Tolerance Patient willing to ambulate this session and does well mainting his weight bearing status with verbal cues. Plan for Next Visit: Gait Training, Exercise Instruction/Handout PRECAUTIONS Weight Bearing Restrictions, Diabetic surgical shoe to RLE for transfers/ambulating short distances Left Lower Extremity Weight Bearing Status: WBAT Right Lower Extremity Weight Bearing Status: Heel Weight Bearing (with surgical shoe for short distances) SUBJECTIVE I'll at least go for a walk FUNCTIONAL STATUS Bed Mobility Rolling: Modified Independent Supine To Sit: Supervision Sit to Supine: Supervision Scooting: Supervision Transfers Sit To Stand: Stand By Assistance, Supervision Stand To Sit: Stand By Assistance, Supervision Bed to Chair Stand By Assistance Bed To Chair Transfer Type: Stepping Bed To Chair Transfer Equipment: Wheeled Walker (declines use of gait belt) Gait Stand By Assistance Gait Device: Wheeled Walker General Deviations/Observations: Antalgic gait, Kate decreased, Difficulty changing direction/turning, Flexed trunk posture, Loss of Balance, Non-functional gait speed, UE weight bearing on assistive device excessive Gait Distance (feet): 70 x 2 Gait Deviations Right Lower Extremity: Step length decreased, Weight bearing decreased (heel weight bearing only) Gait Deviations Left Lower Extremity: Foot clearance decreased, Step length decreased, Stance time decreased, Weight bearing decreased Stairs (fatigued following ambulation with increased L knee pain, unable to complete this session.) CURRENT HOSPITAL COURSE Patient is a 58 year old male admitted [facility] rehab from [facility] He presented to [facility] on 05/25/24 with compliants of L knee pain after a fall. He had recently been admitted to [facility] 05/12-05/19 for sepsis, cellulitius R first toe and acute L knee pain. Upon presentation to [facility] XR of L knee showed a moderate sized effusion, patient was then transfered to [facility]. On 05/27 ortho performed a L knee aspiration, MRI of L knee showed no fracture, a medial meniscal tear and large join effusion with mild synovitis and OA. Podiatry was consulted due to chronic osteomyelitis , on 05/30 he underwent a R great toe amputation, R foot IANDD, bone biopsy and sharp debridement on R foot. Patient now presents to rehab, he is WBAT on L LE and heel weight bearing only on R LE with surgical shoe donned. Relevant Past Medical History: DM2, afib, HTN, CAD, obesity, non-hodgkin's lymphoma s/p chemo 3 yrs ago with chronic med port in place for difficult IV access, HOME LIVING Patient Lives With: Spouse (and 21 year old daughter) Assistance Available: 24-Hour, Other: See Comment (pt reports his spouse is on disability with back issues) Entry To Home: Stairs, Other: See Comment (pt enters home from lower level garage; doorway leads to basement and then 12 stairs to main level of home; has stair lift for these stairs) Number Of Stairs Into Home: 12 (has a stair lift) Number Of Stairs To Bed/Bath: 12 (garage entry to basement, then 12 stairs to main leve (more content not included)... Normal [facility] THERAPY NT HNO ID: [id number] Author: LISA RUIZ OTA/L Service: Occupational Therapy Author Type: Oil Well Perforator Operator Type: Therapy (PT/OT/Speech/Resp) Filed: 06/10/2024 12:43 Note Text: -------- Attestation signed by Janett Sarmiento OT/L at 06/11/2024 12:01 PM Collaboration with ULISES occurred and documentation corresponding to this therapy visit was reviewed. ISIAH Forde -------- Occupational Therapy Longterm Facility Treatment Summary SERVICE DATE: 06/10/2024 SERVICE TIME: 1026 to 1119 ROOM: [place] [address] OT 6 Clicks Score: 20 DISCHARGE RECOMMENDATIONS Home OT Recommended Discharge Disposition Comments: Pt is expected to return home with spouse/dtr to assist as needed; home health OT is recommended to continue after discharge home Anticipated Discharge Needs: Family Training, Physical Assist at Home, Supervision at Home, Equipment Recommended Discharge Equipment: Elevated Toilet Seat, Long Handled Sponge, Dressing Stick, Sock Aid, Walker bag/basket, To Be Determined, Grab Bars-Toilet, Wheelchair GOALS Patient will demonstrate progress with self-care, cognitive and/or coping needs identified to allow safe discharge to home with available support and/or physical assistance. Lower Body Bathing with: Stand By Assistance Lower Body Dressing with: Minimal Assistance Toilet Hygiene with: Stand By Assistance Chair Transfer with: Modified Independent Toilet Transfer with: Modified Independent Shower Transfer with: Contact Guard Assistance Tolerate (minutes of functional activity): 60 Functional Activity with: Stand By Assistance Kitchen Mobility Tasks with: Stand By Assistance Progress Toward Goals: Progressing as expected Rehab Potential: Good ASSESSMENT Response to Therapy Interventions: Good Participation in Activities, Pain, Requires Additional Time to Complete Activities, Multiple Ongoing Medical Issues, Improved Tolerance for Activity Pt completing kitchen mobility this day with much fatigue and endurance. Pt able to reach up over/down below elbow height. Pt able to stand to prepare a light meal for 1.5-2 minutes at a time. Recommend assist in cooking, cleaning upon d/c. Recommend chair with arms in kitchen. Plan for Next Visit: Bed Mobility, Chair/Commode Transfer Training, Dressing Training, Sit to Stand Transfers, Standing Balance, Standing Tolerance PRECAUTIONS Weight Bearing Restrictions, Diabetic surgical shoe to RLE for transfers/ambulating short distances Left Lower Extremity Weight Bearing Status: WBAT Right Lower Extremity Weight Bearing Status: Heel Weight Bearing (with surgical shoe for short distances) SUBJECTIVE Pt c/o feeling ill, nauseous, and generally 'run down'. Pt ameanble to attempt OT this day. FUNCTIONAL STATUS Activities of Daily Living Assist Level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 [email or web address]. DC plan: Home with [facility]. PT: Barrier, left knee pain-meniscus tear. Wants to use a cane but recommending a walker, Will need to do 4 stairs. Shared that he would like to stay until weight bearing status regained. OT: Updated goals already. Added kitchen and shower transfer goal. Min A overall for ADLs. Recommending adaptive equipment. R.D: to be assessed PA: Pain left knee- meniscal tear. Nursing: DOCUMENTED BY: MARLENE Mendoza PATIENT NAME: Yamilka Sharma DATE: June 08, 2024 TIME: 3:36 PM CSN: [id number] [facility] SOCIAL WORK HNO ID: [id number] Author: BERTHA BECERRA LSW Service: Social Work Author Type: Child Guidance Counselor Type: Social Work Filed: 06/08/2024 11:01 Note Text: -------- Summary: Social Security Call -------- SOCIAL WORK PROGRESS NOTE Name: Yamilka Sharma Phoned SS administration. Unable to speak with a Rep. Directed to [email or web address]. To meet with patient to see if he wishes to get information online. 11:00 AM Left message for patient's Jessica. Signature: MARLENE Mendoza Date: June 08, 2024 Time: 9:47 AM [facility] THERAPY NTon 06-08-2024 THERAPY NT HNO ID: [id number] Author: OSIRIS ALBERTO PT Service: Physical Therapy Author Type: Manager Strategic Type: Therapy (PT/OT/Speech/Resp) Filed: 06/09/2024 08:30 Note Text: -------- Attestation signed by Osiris Alberto PT at 06/09/2024 8:30 AM I reviewed and agree with the documentation corresponding to this therapy visit. SIGNATURE: Osiris Alberto PT DATE: June 09, 2024 TIME: 8:30 AM -------- Physical Therapy Longterm Facility Treatment Summary SERVICE DATE: 06/08/2024 SERVICE TIME: 1431 to 1441 ROOM: [place] [address] PT 6 Clicks Score: 20 DISCHARGE RECOMMENDATIONS Home PT Recommended Discharge Disposition Comments: recommending home PT with assist from prn Anticipated Discharge Needs: Family Training, Physical Assist at Home, Supervision at Home, Equipment Recommended Discharge Equipment: Wheeled Walker GOALS Patient will demonstrate progress with functional mobility to allow safe discharge to home with available support and/or physical assistance. Transfer Supine to/from Sit with: Modified Independent Transfer Sit to/from Stand with: Modified Independent Ambulate with: Modified Independent Distance: 50 Device: Wheeled Walker Ambulate Up and Down Steps with: Modified Independent Number of Steps: 4 Device: Rail (B HR) ROM: Patient will improve L knee ROM to -5* of extension and and 90* of flexion. Car Transfer with: Modified Independent Propel Wheelchair with: Modified Independent Distance: 150' Rehab Potential: Good Progress Toward Goals: Progressing as expected ASSESSMENT Response to Therapy Interventions: Low Activity Tolerance, Limited Participation, Pain Patient willing to ambulate however he does not compete any exercises this session nika states that he did too much this morning and will try more tomorrow. Plan for Next Visit: Gait Training, Exercise Instruction/Handout, Standing Tolerance PRECAUTIONS Weight Bearing Restrictions, Diabetic surgical shoe to RLE for transfers/ambulating short distances Left Lower Extremity Weight Bearing Status: WBAT Right Lower Extremity Weight Bearing Status: Heel Weight Bearing (with surgical shoe for short distances) SUBJECTIVE are we going for that walk FUNCTIONAL STATUS Bed Mobility Supine To Sit: Stand By Assistance Sit to Supine: Stand By Assistance Scooting: Stand By Assistance Transfers Sit To Stand: Stand By Assistance Stand To Sit: Stand By Assistance Bed to Chair Contact Guard Assistance Bed To Chair Transfer Type: Stepping Bed To Chair Transfer Equipment: Wheeled Walker Gait Stand By Assistance Gait Device: Wheeled Walker General Deviations/Observations: Antalgic gait, Kate decreased, Difficulty changing direction/turning, Flexed trunk posture, Loss of Balance, Non-functional gait speed, UE weight bearing on assistive device excessive Gait Distance (feet): 30 x 2 Gait Deviations Right Lower Extremity: Step length decreased, Weight bearing decreased (heel weight bearing only) Gait Deviations Left Lower Extremity: Foot clearance decreased, Step length decreased, Stance time decreased, Weight bearing decreased Stairs (fatigued following ambulation with increased L knee pain, unable to complete this session.) CURRENT HOSPITAL COURSE Patient is a 58 year old male admitted [facility] rehab from [facility]. He presented to [facility] on 05/25/24 with compliants of L knee pain after a fall. He had recently been admitted to [facility] 05/12-05/19 for sepsis, cellulitius R first toe and acute L knee pain. Upon presentation to [facility] XR of L knee showed a moderate sized effusion, patient was then transfered to [facility]. On 05/27 ortho performed a L knee aspiration, MRI of L knee showed no fracture, a medial meniscal tear and large join effusion with mild synovitis and OA. Podiatry was consulted due to chronic osteomyelitis , on 05/30 he underwent a R great toe amputation, R foot IANDD, bone biopsy and sharp debridement on R foot. Patient now presents to rehab, he is WBAT on L LE and heel weight bearing only on R LE with surgical shoe donned. Relevant Past Medical History: DM2, afib, HTN, CAD, obesity, non-hodgkin's lymphoma s/p chemo 3 yrs ago with chronic med port in place for difficult IV access, HOME LIVING Patient Lives With: Spouse (and 21 year old daughter) Assistance Available: 24-Hour, Other: See Comment (pt reports his spouse is on disability with back issues) Entry To Home: Stairs, Other: See Comment (pt enters home from lower level garage; doorway leads to basement and then 12 stairs to main level of home; has stair lift for these stairs) Number Of Stairs Into Home: 12 (has a stair lift) Number Of Stairs To Bed/Bath: 12 (garage entry to basement, then (more content not included)... [facility] THERAPY NT HNO ID: [id number] Author: OSIRIS ALBERTO PT Service: Physical Therapy Author Type: Manager Strategic Type: Therapy (PT/OT/Speech/Resp) Filed: 06/08/2024 11:57 Note Text: -------- Attestation signed by Osirsi Alberto PT at 06/08/2024 11:57 AM I reviewed and agree with the documentation corresponding to this therapy visit. SIGNATURE: Osiris Alberto PT DATE: June 08, 2024 TIME: 11:57 AM -------- Physical Therapy Longterm Facility Treatment Summary SERVICE DATE: 06/08/2024 SERVICE TIME: 1108 to 1132 ROOM: [place] [address] PT 6 Clicks Score: 20 DISCHARGE RECOMMENDATIONS Home PT Recommended Discharge Disposition Comments: recommending home PT with assist from prn Anticipated Discharge Needs: Family Training, Physical Assist at Home, Supervision at Home, Equipment Recommended Discharge Equipment: Wheeled Walker GOALS Patient will demonstrate progress with functional mobility to allow safe discharge to home with available support and/or physical assistance. Transfer Supine to/from Sit with: Modified Independent Transfer Sit to/from Stand with: Modified Independent Ambulate with: Modified Independent Distance: 50 Device: Wheeled Walker Ambulate Up and Down Steps with: Modified Independent Number of Steps: 4 Device: Rail (B HR) ROM: Patient will improve L knee ROM to -5* of extension and and 90* of flexion. Car Transfer with: Modified Independent Propel Wheelchair with: Modified Independent Distance: 150' Rehab Potential: Good Progress Toward Goals: Progressing as expected ASSESSMENT Response to Therapy Interventions: Low Activity Tolerance, Pain Patient willing to complete ambulation and all exercises asked of him however he states that he has L knee pain and can not complete any farther exercises after completing LAQ's. Plan for Next Visit: Gait Training, Exercise Instruction/Handout, Standing Tolerance PRECAUTIONS Weight Bearing Restrictions, Diabetic surgical shoe to RLE for transfers/ambulating short distances Left Lower Extremity Weight Bearing Status: WBAT Right Lower Extremity Weight Bearing Status: Heel Weight Bearing (with surgical shoe for short distances) SUBJECTIVE what do you have planned FUNCTIONAL STATUS Bed Mobility Sit to Supine: Stand By Assistance Scooting: Stand By Assistance Transfers Sit To Stand: Stand By Assistance Stand To Sit: Stand By Assistance Bed to Chair Contact Guard Assistance Bed To Chair Transfer Type: Stepping Bed To Chair Transfer Equipment: Wheeled Walker Gait Stand By Assistance Gait Device: Wheeled Walker General Deviations/Observations: Antalgic gait, Kate decreased, Difficulty changing direction/turning, Flexed trunk posture, Loss of Balance, Non-functional gait speed, UE weight bearing on assistive device excessive Gait Distance (feet): 20 Gait Deviations Right Lower Extremity: Step length decreased, Weight bearing decreased (heel weight bearing only) Gait Deviations Left Lower Extremity: Foot clearance decreased, Step length decreased, Stance time decreased, Weight bearing decreased Stairs (fatigued following ambulation with increased L knee pain, unable to complete this session.) CURRENT HOSPITAL COURSE Patient is a 58 year old male admitted [facility] rehab from [facility]. He presented to [facility] on 05/25/24 with compliants of L knee pain after a fall. He had recently been admitted to [facility] 05/12-05/19 for sepsis, cellulitius R first toe and acute L knee pain. Upon presentation to [facility] ED XR of L knee showed a moderate sized effusion, patient was then transfered to [facility]. On 05/27 ortho performed a L knee aspiration, MRI of L knee showed no fracture, a medial meniscal tear and large join effusion with mild synovitis and OA. Podiatry was consulted due to chronic osteomyelitis , on 05/30 he underwent a R great toe amputation, R foot IANDD, bone biopsy and sharp debridement on R foot. Patient now presents to rehab, he is WBAT on L LE and heel weight bearing only on R LE with surgical shoe donned. Relevant Past Medical History: DM2, afib, HTN, CAD, obesity, non-hodgkin's lymphoma s/p chemo 3 yrs ago with chronic med port in place for difficult IV access, HOME LIVING Patient Lives With: Spouse (and 21 year old daughter) Assistance Available: 24-Hour, Other: See Comment (pt reports his spouse is on disability with back issues) Entry To Home: Stairs, Other: See Comment (pt enters home from lower level garage; doorway leads to basement and then 12 stairs to main level of home; has stair lift for these stairs) Number Of Stairs Into Home: 12 (has a stair lift) Number Of Stairs To Bed/Bath: 12 (garage entry to basement, then 12 stairs to main level of home where bed (more content not included)... [facility] THERAPY NT HNO ID: [id number] Author: JOCY HERNADEZ, TRACY/Juan Service: Occupational Therapy Author Type: Occupational Therapist Type: Therapy (PT/OT/Speech/Resp) Filed: 06/08/2024 09:53 Note Text: Occupational Therapy Longterm Facility Treatment Summary SERVICE DATE: 06/08/2024 SERVICE TIME: 0850 to 35 ROOM: [place] [address] OT 6 Clicks Score: 19 DISCHARGE RECOMMENDATIONS Home OT Recommended Discharge Disposition Comments: Pt is expected to return home with spouse/dtr to assist as needed; home health OT is recommended to continue after discharge home Anticipated Discharge Needs: Family Training, Physical Assist at Home, Supervision at Home, Equipment Recommended Discharge Equipment: Elevated Toilet Seat, Long Handled Sponge, Dressing Stick, Sock Aid, Walker bag/basket, To Be Determined, Grab Bars-Toilet, Wheelchair GOALS Patient will demonstrate progress with self-care, cognitive and/or coping needs identified to allow safe discharge to home with available support and/or physical assistance. Lower Body Bathing with: Stand By Assistance Lower Body Dressing with: Minimal Assistance Toilet Hygiene with: Stand By Assistance Chair Transfer with: Modified Independent Toilet Transfer with: Modified Independent Shower Transfer with: Contact Guard Assistance Tolerate (minutes of functional activity): 60 Functional Activity with: Stand By Assistance Kitchen Mobility Tasks with: Stand By Assistance Progress Toward Goals: Progressing as expected Rehab Potential: Good ASSESSMENT Response to Therapy Interventions: Good Participation in Activities, Pain, Requires Additional Time to Complete Activities, Multiple Ongoing Medical Issues, Improved Tolerance for Activity Improvement noted in ability to complete lower body dressing and bathing tasks with use of adapative equipment. Pt needs further instruction and practice with equipment to improve proficiency, and would benefit from use of extra wide sock aid for left foot. Will add kitchen mobility goal and shower transfer goal as he will benefit from instruction in these areas for homegoing and to review precautions re: to these tasks. Plan for Next Visit: Bed Mobility, Chair/Commode Transfer Training, Dressing Training, Sit to Stand Transfers, Standing Balance, Standing Tolerance PRECAUTIONS Weight Bearing Restrictions, Diabetic surgical shoe to RLE for transfers/ambulating short distances Left Lower Extremity Weight Bearing Status: WBAT Right Lower Extremity Weight Bearing Status: Heel Weight Bearing (with surgical shoe for short distances) SUBJECTIVE Pt stated he wants to stay here at least 3 weeks so that he can try to practice walking with use of cane only FUNCTIONAL STATUS Activities of Daily Living Assist Level Additional Information Feeding Independent Grooming Set Up, Additional Information Bathing Upper Body Modified Independent, Set Up, Additional Information instructed in use of long sponge to bathe back; pt able to sponge bathe while seated in chair after set up at a modified independent level Bathing Lower Body Contact Guard Assistance, Additional Information to sponge bathe lower body while seated in chair; instructed in use of long sponge to bathe distal left LE. CGA in standing to bathe groin/posterior areas Dressing Upper Body Independent, Additional Information to barrington and button shirt Dressing Lower Body Moderate Assistance, Additional Information most assist needed to barrington left shoe and right surgical shoe; pt able to doff surgical shoe independently. Instructed in use of dressing stick to doff socks and pants over feet; assist for right sock due to dressing in place. Instructed in use of sock aid to barrington left sock, needs extra wide sock aid. Instructed in use of cardiovascular invasive specialist to barrington pants over feet with pt able to do this with verbal cues only; CGA in standing to pull pants up over hips. Toileting Minimal Assistance, Additional Information Instrumental Activities of Daily Living Assist Level Additional Information Meal/Beverage Prep Maximal Assistance Cleaning Total Assistance Laundry Maximal Assistance Medication Management with Strategies Mobility Assist Level Additional Information Bed Mobility Supine To Sit: Stand By Assistance, Additional Information Sit to Stand Contact Guard Assistance Stand to Sit Contact Guard Assistance Bed to Chair Contact Guard Assistance Bed To Chair Transfer Type: Stepping Bed To Chair Transfer Equipment: Wheeled Walker, Gait Belt Toilet/Commode Contact Guard Assistance, Additional Information Shower Functional Mobility Contact Guard Assistance, Additional Information Functional Mobility Device: Wheeled Walker CURRENT HOSPITAL COURSE Patient is a 58 year old male admitted [facility] from [facility]. He presented to [facility] on 05/25/24 with compliants of L knee pain after a fall. He had recently been admitted to [facility] (more content not included)... [facility] CASE MGT INCHARLY Serrano 2023 CASE MGT INCHARLY CARDENAS HNO ID: [id number] Author: BERTHA BECERRA LSW Service: Social Work Author Type: Child Guidance Counselor Type: Care Mgt Initial Assessment Filed: 06/08/2024 08:56 Note Text: -------- Summary: Initial Assessment -------- CARE MANAGEMENT: ASSESSMENT AND DISCHARGE PLAN SERVICE DATE: June 07, 2024 SERVICE TIME: 9:00 AM PCP: Najma Bloom DO Primary Contact: Extended Emergency Contact Information Primary Emergency Contact: Jessica Sharma Address: [address] [place], [place] [id number] [place] [address] OF [place] Mobile Relation: Spouse Secondary Emergency Contact: AmaraYamilka duval Jr Mobile Relation: Son Admission Status: Inpatient Swing Insurance Provider: JOHN KELLY PPO OOS Discharge Planning requested by: Per Department Practice Potential Transition Plans Home OT/PT Advance Directives: HCPOA/HC in EMR Current Living Arrangements and Support Lives with: Spouse/significant other Type of Residence: Private Residence (House) Support: general store manager/social media 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, Children, Spouse/significant other How do you manage to accomplish the following: Independent: Ambulation;Bathe/Shower; Dress;Going to the bathroom;Medication Management;Transportatio n to appointments/community Needs Assistance: Meals/Meal Prep Current Services/Equipment Current Post-Acute Service(s): DME Current DME Type: Cane, Rolling walker Discharge Planning Patient Goal(s): Better mobility, Increase strength, Be able to go home, Less pain, Other: See Comment Patient's Other Post-Acute Care Goal(s): Assistance with getting his disability [place] Explained: [place] Given: No Reason Not Given: Unable to complete with this assessment - revisit Discharge Planning Participant(s): Patient Patient/Family Comments: I was hoping Dr Bloom could talk with my financial worker about what is still needed for my disability to go through Caregiver Assessment: Caregiver is ready, willing and able to meet the patient's needs as recommended by the inter-professional team: Other: See Comment ( is available to assist, but limited physically) Transport at Discharge: TBD Needs Prior to Discharge: Needs Prior to Discharge: To Be Determined;Home Care Order;Facility or Agency Choices;Discharge Transportation;Transport ation to Appointments;Wound Care;OT/PT Evaluation Post-Acute Discharge Plan: Home with [facility] (?) Patient lives with his Jessica and 21 year old daughter in a private home in [place]. He was independent with ADL's and assisted with IADL's prior to his hospitalization. Patient had a Rt toe amputation on 05/30 at [facility] where he was admitted from 05/25-06/06. He was using a cane outdoors and would sometimes use a WW indoors vegetable sorter. SIGNATURE: MARLENE Mendoza PATIENT NAME: Yamilka Sharma DATE: June 07, 2024 TIME: 9:56 AM CONTACT #: [id number] [facility] HISTORY PHYSICALon HISTORY PHYSICAL HNO ID: [id number] Author: LESLY MARTINEZ APRN.MILL FEEDER Service: Hospital Medicine Author Type: Nurse Practitioner Type: H&P Filed: 06/07/2024 11:40 Note Text: -------- Attestation signed by Isabel Weston MD at 06/09/2024 12:[address] [facility] STAFF PHYSICIAN NOTE OF PERSONAL INVOLVEMENT IN CARE I have reviewed the history and physical examination obtained and documented by the nurse practitioner and discussed the case on as needed basis Principal Problem: Aftercare (POA: Yes) Active Problems: Diffuse large B cell lymphoma (HCC) (POA: Yes) Coronary artery disease involving newtok coronary artery of newtok heart without angina pectoris (POA: Yes) Acute kidney injury superimposed on chronic kidney disease (HCC) (HCC) (POA: Yes) Cellulitis and abscess of foot (POA: Yes) Acute pain of left knee (POA: Yes) Diabetic ulcer of toe of right foot associated with type 2 diabetes mellitus, 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 (HCC) (POA: Yes) Acute medial meniscus tear (POA: Yes) Depression (POA: Yes) Resolved Problems: * No resolved hospital problems. * Isabel Weston MD, [facility] Staff,Dept of Hospital Medicine June 09, 2024 12:39 PM Pager:Click here to page -------- DEPARTMENT OF HOSPITAL MEDICINE HISTORY AND PHYSICAL EXAM SERVICE DATE: 06/07/2024 SERVICE TIME: 11:22 AM Primary Care Physician: Najma Bloom, DO NIGHT AND WEEKEND COVERAGE: [facility] JENSEN Subjective CHIEF COMPLAINT: Aftercare following hospitalization for left knee pain and right great toe OM HPI: Yamilka Sharma is a 58 year old male with past medical history of chronic Left Knee Pain, Type 2 DM, HTN, Hyperlipidemia, CAD, Paroxysmal Atrial Fibrillation, CKD Stage IIIb, Non-Hodgkin's Lymphoma, Chronic Medi-port, Depression and Obesity, who presented to the [facility] on 05/25/24 with complaints of increased left knee pain after a fall. He had recently been admitted to [facility] 05/12 - 05/19/24 for Sepsis, Cellulitis Right First Toe (s/p debridement) and acute Left Knee Pain. Rheumatology was consulted. S/P Arthrocentesis and synovial fluid showed no infection or crystals. Patient's knee pain was felt to be inflammatory and Prednisone 20 mg daily for 5 days was ordered with mild improvement. He now reported having a fall on 05/24/24 when his knee just gave out. Since then, his left knee pain had worsened. He denied any fevers or chills. On presentation to [place] ED: he was afebrile. Na 132, K 4.7, Cr 2.5, WBC 11.6, Hgb 11.6. Lactate 0.9. XR Left Knee showed a moderate sized effusion. XR Left Tib/Fib showed no fracture. XR Left Hip showed moderate DJD. The patient was transferred to [facility] with worsening left knee pain with inability to ambulate. Orthopedics, Podiatry, Infectious Disease and Nephrology were consulted. Nephrology noted baseline Cr 2.3 - 2.5. US Kidneys/Bladder showed an atrophic left kidney with moderate left hydroureteronephrosis similar to CT 05/11/2024. Prior CT demonstrated postsurgical changes of left psoas hitch with ureteral implantation. Interval resolution of right hydroureteronephrosis and a distended urinary bladder with debris and significant post void residual was also noted. Bladder scans were ordered. On 05/27, Ortho performed a Left Knee Aspiration for yellow to red fluid. Left Knee hemarthrosis suspected. Apixaban was held. MRI of Left Knee showed no fracture, a medial meniscal tear, a large joint effusion with mild synovitis, nonspecific mild edema like along the fascial planes of the distal quadriceps and proximal posterior compartment calf musculature which may be secondary to leakage of fluid from significant joint effusion and patellofemoral compartment osteoarthritis with degenerative chondral loss. Podiatry noted the patient had findings concerning for chronic osteomyelitis that caused his pathological fracture of the distal phalanx seen on his recent foot MRI (05/17 MRI Right Foot showed a great toe fracture with no definitive MRI findings of osteomyelitis although bone marrow evaluation is limited by changes related to the fracture). The wound probed to the bone. On 05/30, the patient underwent a right great toe amputation, right foot IANDD, bone biopsy and sharp debridement bone right foot. Blood Cx x2 negative; Left Synovial Fluid Cx negative and Right First Toe Wound Cx negative. ID continued IV Cefazolin. 05/30 Right Foot post-lavage Cx and Right Foot 1rst Metatarsal Bone Cx pending (Podiatry felt margin was likely clean). PT and OT initially recommended Acute Rehab, but patient unable to participate in 3 hrs of therapy and cannot wean off of prn Oxycodone. Acute Rehab evaluation cancelled. Patient agreeable to SNF. PT/OT re-evaluations recomm (more content not included)... [facility] NURSING PROGon 06-07-2024 NURSING PROG HNO ID: [id number] Author: MELISSA WILKES RN Service: ? Author Type: Registered Nurse Type: Nursing Progress Note Filed: 06/07/2024 17:26 Note Text: Other: Patient had his oxy IR 5 mg at 1540 and it brought his pain down to a 3-4 after 1 hour assessment. Now at 2 hour cristal he said it shot back up to a 7. Provider Isaac Martinez MILL FEEDER updated and wants him to get his 10 mg breakthrough oxy IR. Administered. [facility] NURSING PROG HNO ID: [id number] Author: MELISSA WILKES RN Service: ? Author Type: Registered Nurse Type: Nursing Progress Note Filed: 06/07/2024 11:16 Note Text: Other: Patient pain reassessment with complaint of pain still at 6/10 in left knee. He was medicated with Percocet at 0847 and Oxy IR 5 mg at 1020. He is currently requesting his breakthrough pain management. Austen Martinez CNP updated and awaiting advisement. [facility] NURSING PROG HNO ID: [id number] Author: MELISSA WILKES, RN Service: ? Author Type: Registered Nurse Type: Nursing Progress Note Filed: 06/07/2024 09:55 Note Text: Other: Patient pain reassessment 7/10 still and requesting something more for pain. Patient states he was getting 2 percocet every 4 hours previously and the 1 tab every 8 hours is not going to help. Isaac Martinez CNP secure chat sent for update and instructions. [facility] SOCIAL WORKon 06-07-2024 SOCIAL WORK HNO ID: [id number] Author: BERTHA BECERRA LSW Service: Social Work Author Type: Child Guidance Counselor Type: Social Work Filed: 06/08/2024 09:43 Note Text: -------- Summary: Disability -------- SOCIAL WORK PROGRESS NOTE Name: Yamilka Sharma Patient is very concerned about his disability for work going through. He said that he wanted his PCP and Financial home health care case manager to talk during his appointment with PCP this am at 10:00. Appointment was cancelled due to patient being admitted to hospital. Patient very upset about this and is wanting to know what paperwork is still needed for his disability. He said he was told they are missing some info. He was unable to pull up his conference and event organiser's phone number so JERI called [email or web address] [phone] and learned that his conference and event organiser is a Mrs Melton (sp?) [place] ext [phone]. SW left a message and also faxed her at [phone] asking what patient still needs for his disability. 4:26 PM: Have not hear back from Mrs Angel Checked with patient. He has not heard anything, but located her email address. SW will try to contact her again on 06/08.Patient also asking if there's a way he can speak with a rep from [employer]. Signature: MARLENE Mendoza Date: June 07, 2024 Time: 12:14 PM [facility] THERAPY NTon 06-07-2024 THERAPY NT HNO ID: [id number] Author: JOCY HERNADEZ OTR/L Service: Occupational Therapy Author Type: Occupational Therapist Type: Therapy (PT/OT/Speech/Resp) Filed: 06/07/2024 15:09 Note Text: -------- Summary: OT Evaluation -------- Occupational Therapy Longterm Facility Evaluation Summary SERVICE DATE: 06/07/2024 SERVICE TIME: 1055 to 1150 ROOM: [place] [address] OT 6 Clicks Score: 18 DISCHARGE RECOMMENDATIONS Home OT Recommended Discharge Disposition Comments: Pt is expected to return home with spouse/dtr to assist as needed; home health OT is recommended to continue after discharge home Anticipated Discharge Needs: Family Training, Physical Assist at Home, Supervision at Home, Equipment Recommended Discharge Equipment: Elevated Toilet Seat, Long Handled Sponge, Dressing Stick, Sock Aid, Walker bag/basket, To Be Determined, Grab Bars-Toilet, Wheelchair GOALS Patient will demonstrate progress with self-care, cognitive and/or coping needs identified to allow safe discharge to home with available support and/or physical assistance. Lower Body Bathing with: Stand By Assistance Lower Body Dressing with: Minimal Assistance Toilet Hygiene with: Stand By Assistance Chair Transfer with: Modified Independent Toilet Transfer with: Modified Independent Tolerate (minutes of functional activity): 60 Functional Activity with: Stand By Assistance Progress Toward Goals: Progressing as expected Rehab Potential: Good ASSESSMENT: See Flowsheet for assessment Plan for Next Visit: Bathing Training, Bed Mobility, Chair/Commode Transfer Training, Dressing Training, Grooming Training, Sit to Stand Transfers, Standing Balance, Standing Tolerance, Toileting Instruction PRECAUTIONS Weight Bearing Restrictions, Diabetic surgical shoe to RLE for transfers/ambulating short distances Left Lower Extremity Weight Bearing Status: WBAT Right Lower Extremity Weight Bearing Status: Heel Weight Bearing (with surgical shoe for short distances) SUBJECTIVE FUNCTIONAL STATUS Activities of Daily Living Assist Level Additional Information Feeding Independent Grooming Set Up, Additional Information Bathing Upper Body Set Up Bathing Lower Body Moderate Assistance Dressing Upper Body Independent Dressing Lower Body Maximal Assistance Toileting Minimal Assistance, Additional Information Instrumental Activities of Daily Living Assist Level Additional Information Meal/Beverage Prep Maximal Assistance Cleaning Total Assistance Laundry Maximal Assistance Medication Management with Strategies Mobility Assist Level Additional Information Bed Mobility Supine To Sit: Stand By Assistance, Additional Information Sit to Stand Contact Guard Assistance Stand to Sit Contact Guard Assistance Bed to Chair Contact Guard Assistance Bed To Chair Transfer Type: Stepping Bed To Chair Transfer Equipment: Wheeled Walker, Gait Belt Toilet/Commode Contact Guard Assistance, Additional Information Shower Functional Mobility Contact Guard Assistance, Additional Information Functional Mobility Device: Wheeled Walker CURRENT HOSPITAL COURSE Patient is a 58 year old male admitted [facility] from [facility]. He presented to [facility] on 05/25/24 with compliants of L knee pain after a fall. He had recently been admitted to [facility] 05/12-05/19 for sepsis, cellulitius R first toe and acute L knee pain. Upon presentation to [place] ED XR of L knee showed a moderate sized effusion, patient was then transfered to [facility]. On 05/27 ortho performed a L knee aspiration, MRI of L knee showed no fracture, a medial meniscal tear and large join effusion with mild synovitis and OA. Podiatry was consulted due to chronic osteomyelitis , on 05/30 he underwent a R great toe amputation, R foot IANDD, bone biopsy and sharp debridement on R foot. Patient now presents to rehab, he is WBAT on L LE and heel weight bearing only on R LE with surgical shoe donned. Relevant Past Medical History: DM2, afib, HTN, CAD, obesity, non-hodgkin's lymphoma s/p chemo 3 yrs ago with chronic med port in place for difficult IV access, HOME LIVING Patient Lives With: Spouse (and 21 year old daughter) Assistance Available: 24-Hour, Other: See Comment (pt reports his spouse is on disability with back issues) Entry To Home: Stairs, Other: See Comment (pt enters home from lower level garage; doorway leads to basement and then 12 stairs to main level of home; has stair lift for these stairs) Number Of Stairs Into Home: 12 (has a stair lift) Number Of Stairs To Bed/Bath: 12 (garage entry to basement, then 12 stairs to main level of home where bed/bath located; stair lift for stairs) Stairs to Bed/Bath with: Stair Lift (pt lives in elevated ranch; 12 stairs from lo (more content not included)... [facility] THERAPY NT HNO ID: [id number] Author: GREGORY LEMUS, PT, DPT Service: Physical Therapy Author Type: Physical Therapist Type: Therapy (PT/OT/Speech/Resp) Filed: 06/07/2024 12:26 Note Text: Physical Therapy Longterm Facility Evaluation Summary SERVICE DATE: 06/07/2024 SERVICE TIME: 931 to 1016 ROOM: [place] [address] PT 6 Clicks Score: 18 DISCHARGE RECOMMENDATIONS Home PT Recommended Discharge Disposition Comments: recommending home PT with assist from prn Anticipated Discharge Needs: Equipment Recommended Discharge Equipment: Wheeled Walker GOALS Patient will demonstrate progress with functional mobility to allow safe discharge to home with available support and/or physical assistance. Transfer Supine to/from Sit with: Modified Independent Transfer Sit to/from Stand with: Modified Independent Ambulate with: Modified Independent Distance: 50 Device: Wheeled Walker Ambulate Up and Down Steps with: Modified Independent Number of Steps: 4 Device: Rail (B HR) ROM: Patient will improve L knee ROM to -5* of extension and and 90* of flexion. Car Transfer with: Modified Independent Propel Wheelchair with: Modified Independent Distance: 150' Rehab Potential: Good Progress Toward Goals: Progressing as expected ASSESSMENT Response to Therapy Interventions: Good Participation in Activities Patient is a 58 year old male admitted to [facility] s/p R great toe amputation and L knee meniscal tear with joint effusion, awaiting orthopedic recommendations for management. Patient was independent prior to admission and now presents with decreased strength, decreased balance ,increased pain, limited L knee ROM and impaired overall functional mobility requiring steadying assist from therapist. He would benefit from skilled physical therapy services to maximize function and return safely home. Plan for Next Visit: Fall Prevention, Gait Training, Exercise Instruction/Handout, Pre-gait Activities, Sit to Stand Transfers, Stair Training, Standing Balance PRECAUTIONS Weight Bearing Restrictions Left Lower Extremity Weight Bearing Status: WBAT Right Lower Extremity Weight Bearing Status: Heel Weight Bearing (with surgical shoe for short distances) SUBJECTIVE Patient sitting up in chair, upon entering room, agreeable to therapy evaluation. FUNCTIONAL STATUS Bed Mobility Sit to Supine: Stand By Assistance Scooting: Stand By Assistance Transfers Sit To Stand: Contact Guard Assistance Stand To Sit: Contact Guard Assistance Bed to Chair Contact Guard Assistance Bed To Chair Transfer Type: Stepping Bed To Chair Transfer Equipment: Wheeled Walker Gait Contact Guard Assistance Gait Device: Wheeled Walker General Deviations/Observations: Antalgic gait, Kate decreased, Difficulty changing direction/turning, Flexed trunk posture, Loss of Balance, Non-functional gait speed, UE weight bearing on assistive device excessive (partial step through pattern, decreased stance on L LE, increased reliance on UE support, one episode of LOB during turning requiring steady assist from therapist.) Gait Distance (feet): 20' Gait Deviations Right Lower Extremity: Step length decreased (heel only weight bearing with surgical shoe) Gait Deviations Left Lower Extremity: Foot clearance decreased, Step length decreased, Stance time decreased, Weight bearing decreased Stairs (fatigued following ambulation with increased L knee pain, unable to complete this session.) CURRENT HOSPITAL COURSE Patient is a 58 year old male admitted [facility] from [facility]. He presented to [facility] on 05/25/24 with compliants of L knee pain after a fall. He had recently been admitted to [facility] 05/12-05/19 for sepsis, cellulitius R first toe and acute L knee pain. Upon presentation to [place] ED XR of L knee showed a moderate sized effusion, patient was then transfered to [facility]. On 05/27 ortho performed a L knee aspiration, MRI of L knee showed no fracture, a medial meniscal tear and large join effusion with mild synovitis and OA. Podiatry was consulted due to chronic osteomyelitis , on 05/30 he underwent a R great toe amputation, R foot IANDD, bone biopsy and sharp debridement on R foot. Patient now presents to rehab, he is WBAT on L LE and heel weight bearing only on R LE with surgical shoe donned. Relevant Past Medical History: DM2, afib, HTN, CAD, obesity, non-hodgkin's lymphoma s/p chemo 3 yrs ago with chronic med port in place for difficult IV access, HOME LIVING Patient Lives With: Spouse (and daughter) Assistance Available: 24-Hour Entry To Home: Stairs Number Of Stairs Into Home: 12 (has a stair lift) Number Of Stairs To Bed/Bath: 0 Equipment Owned: Cane, Walker- Wheeled, Rollator PRIOR FUNCTIONAL LEVEL Within Functional Limits, History of Falls (recent 2 falls with current medical situation) Prior to a month ago, patient was independ (more content not included)... [facility] Basic metabolic 2000 panelon 06-06-2024 Anion gap [Moles/Vol] 12 mmol/L Normal 8-15 [facility] Comment on above: Order Comment: Speci king Type: BLOOD SPECIMENOrdering Facility: [facility] Address: [address] [place] [address] Performed By: #### 2 4321-2 ####[facility]ORATORYCLIA [id number] [place] [address] [place] Calcium [Mass/Vol] 9.0 mg/dL Normal 8.5-10.2 [facility] Comment on above: Order Comment: Raghui men Type: BLOOD SPECIMENOrdering Facility: [facility] Address: [address] [place] [address] Performed By: #### 2 4321-2 ####[facility] LABORATORYCLIA [id number] [place] [address] [place] Chloride [Moles/Vol] 95 mmol/L Low 98-107 [facility] Comment on above: Order Comment: Santo king Type: BLOOD SPECIMENOrdering Facility: [facility] Address: [address] [place] [address] Performed By: #### 2 4321-2 ####[facility] LABORATORYCLIA [id number] [place] [address] [place] CO2 [Moles/Vol] 28 mmol/L Normal 22-30 [facility] Comment on above: Order Comment: Raghui men Type: BLOOD SPECIMENOrdering Facility: [facility] Address: [address] [place] [address] Performed By: #### 2 4321-2 ####[facility] LABORATORYCLIA [id number] [address] [place] Creatinine [Mass/Vol] 1.97 mg/dL High 0.73-1.22 [facility] Comment on above: Order Comment: Santo king Type: BLOOD SPECIMENOrdering Facility: [facility] Address: [address] [place] [address] Performed By: #### 2 4321-2 ####[facility] LABORATORYCLIA [id number] [address] Creatinine and Glomerular filtration rate.predicted panel (S/P/Bld) 38 mL/min/1.73m??? Low >=60 [facility] Comment on above: Order Comment: Santo king Type: BLOOD SPECIMENOrdering Facility: [facility] Address: [address] [place] [address] Result Comment: Karissa mated Glomerular Filtration Rate (eGFR) is calculated using the 2020 CKD-EPI creatinine equation. This equation utilizes serum creatinine, sex, and age as parameters. The creatinine assay has traceable calibration to isotope dilution-mass spectrometry. Refer to KDIGO guidelines for clinical interpretation. In patients with unstable renal function, e.g. those with acute kidney injury, the eGFR may not accurately reflect actual GFR. Performed By: #### 2 4321-2 ####[facility] LABORATORYCLIA [id number] [address] [place] Glucose [Mass/Vol] 118 mg/dL High 74-99 [facility] Comment on above: Order Comment: Speci men Type: BLOOD SPECIMENOrdering Facility: [facility] Address: [address] [place] [address] Result Comment: The [place] Diabetes Association (ADA) provides guidance for cutoff values for fasting glucose and random glucose. The ADA defines fasting as no caloric intake for at least 8 hours. Fasting plasma glucose results between 100 to 125 mg/dL indicate increased risk for diabetes (prediabetes). Fasting plasma glucose results greater than or equal to 126 mg/dL meet the criteria for diagnosis of diabetes. In the absence of unequivocal hyperglycemia, results should be confirmed by repeat testing. In a patient with classic symptoms of hyperglycemia or hyperglycemic crisis, random plasma glucose results greater than or equal to 200 mg/dL meet the criteria for diagnosis of diabetes. Reference: Standards of Medical Care in Diabetes 2016, [place] [employer]. Diabetes Care. 2016.39(Suppl 1). Performed By: #### 2 4321-2 ####[facility] LABORATORYCLIA [id number] [place] [address] [place] Potassium [Moles/Vol] 4.5 mmol/L Normal 3.7-5.1 [facility] Comment on above: Order Comment: Santo malik Type: BLOOD SPECIMENOrdering Facility: [facility] Address: [address] [place] [address] Performed By: #### 2 4321-2 ####[facility] LABORATORYCLIA [id number] [place] [id number] [place] Sodium [Moles/Vol] 135 mmol/L Low 136-144 [facility] Comment on above: Order Comment: Raghui men Type: BLOOD SPECIMENOrdering Facility: [facility] Address: [address] [place], [place] [address] Performed By: #### 2 4321-2 ####[facility] LABORATORYCLIA [id number] [place] [id number] [place] Urea nitrogen [Mass/Vol] 39 mg/dL High 9-24 [facility] Comment on above: Order Comment: Raghui men Type: BLOOD SPECIMENOrdering Facility: [facility] Address: [address] [place] [address] Performed By: #### 2 4321-2 ####[facility] LABORATORYCLIA [id number] [address] CBC panel Auto (Bld)on 06-06 Erythrocyte distribution width (RBC) [Ratio] 14.7 % Normal 11.5-15.0 [facility] Comment on above: Order Comment: Speci men Type: BLOOD SPECIMENOrdering Facility: [facility] Address: [address] [place] [address] Performed By: #### 5 8410-2 ####[facility] LABORATORYCLIA [id number] [address] Hematocrit (Bld) [Volume fraction] 31.4 % Low 39.0-51.0 [facility] Comment on above: Order Comment: Speci men Type: BLOOD SPECIMENOrdering Facility: [facility] Address: [address] [place] [address] Performed By: #### 5 8410-2 ####[facility] LABORATORYCLIA [id number] [address] Hemoglobin (Bld) [Mass/Vol] 9.9 g/dL Low 13.0-17.0 [facility] Comment on above: Order Comment: Speci men Type: BLOOD SPECIMENOrdering Facility: [facility] Address: [address] [place] [address] Performed By: #### 5 8410-2 ####[facility] LABORATORYCLIA [id number] [address] MCH (RBC) [Entitic mass] 25.5 pg Low 26.0-34.0 [facility] Comment on above: Order Comment: Speci men Type: BLOOD SPECIMENOrdering Facility: [facility] Address: [address] [place] [address] Performed By: #### 5 8410-2 ####[facility] LABORATORYCLIA [id number] [address] MCHC (RBC) [Mass/Vol] 31.5 g/dL Normal 30.5-36.0 [facility] Comment on above: Order Comment: Speci men Type: BLOOD SPECIMENOrdering Facility: [facility] Address: [address] [place] [address] Performed By: #### 5 8410-2 ####[facility] LABORATORYCLIA [id number] [address] MCV (RBC) [Entitic vol] 80.9 fL Normal 80.0-100.0 [facility] Comment on above: Order Comment: Speci men Type: BLOOD SPECIMENOrdering Facility: [facility] Address: [address] [place] [address] Performed By: #### 5 8410-2 ####[facility] LABORATORYCLIA [id number] [address] Nucleated RBC (Bld) [#/Vol] 10*3/uL Normal <0.01 [facility] Comment on above: Order Comment: Speci men Type: BLOOD SPECIMENOrdering Facility: [facility] Address: [address] [place] [address] Performed By: #### 5 8410-2 ####[facility] LABORATORYCLIA [id number] [address] Platelet mean volume (Bld) [Entitic vol] 10.1 fL Normal 9.0-12.7 [facility] Comment on above: Order Comment: Speci men Type: BLOOD SPECIMENOrdering Facility: [facility] Address: [address] [place] [address] Performed By: #### 5 8410-2 ####[facility] LABORATORYCLIA [id number] [address] Platelets (Bld) [#/Vol] 142 10*3/uL Low 150-400 [facility] Comment on above: Order Comment: Speci men Type: BLOOD SPECIMENOrdering Facility: [facility] Address: [address] [place] [address] Performed By: #### 5 8410-2 ####[facility] LABORATORYCLIA [id number] [address] [place] RBC (Bld) [#/Vol] 3.88 10*6/uL Low 4.20-6.00 [facility] Comment on above: Order Comment: Speci men Type: BLOOD SPECIMENOrdering Facility: [facility] Address: [address] [place] [address] Performed By: #### 5 8410-2 ####[facility] LABORATORYCLIA [id number] [address] WBC (Bld) [#/Vol] 7.53 10*3/uL Normal 3.70-11.00 [facility] Comment on above: Order Comment: Speci men Type: BLOOD SPECIMENOrdering Facility: [facility] Address: [address] [place] [address] Performed By: #### 5 8410-2 ####[facility] LABORATORYCLIA [id number] [place] [id number] [facility] CNDSon 06-06-2024 CNDS HNO ID: [id number] Author: BIJAN AVERY MD Service: Hospital Medicine Author Type: Physician Type: Discharge Summary Filed: 06/06/2024 20:22 Note Text: DISCHARGE SUMMARY PATIENT NAME: Yamilka Sharma Code Status: Prior Highest Readmission Risk Score: 39 The 30 day readmissions risk score is derived from an internally validated risk model which evaluates patient level characteristics, utilization history, medication orders and lab results up until the day of discharge. Patients with a score of 40 or above are considered highest risk for readmission. Specific patient level drivers will be listed at the bottom of the summary. Admission Information Admission Information ADMIT DATE: 05/25/2024 DISCHARGE DATE: 06/06/2024 MY DOCTORS AND MEDICAL TEAM: My Main Hospital Doctor: Bijan Avery MD Primary Care Provider: Najma Bloom DO My Medical Team Members: Treatment Team: Attending Provider: Bijan Avery MD Consulting: Cesar Lezama MD Consulting: Nikita Escobedo DPM Consulting: Epi Polanco MD Consulting: Amrit Del Valle MD MY CONDITION AT DISCHARGE: Stable REASON I WAS IN THE HOSPITAL: Osteomyelitis of the great toe on the right and meniscus tear with osteoarthritis left knee SUMMARY OF WHAT HAPPENED WHILE I WAS IN THE HOSPITAL: Taken to surgery with partial amputation of the toe margins look good cultures negative and completed antibiotic therapy also the right knee was found to have a meniscal tear of the medial meniscus and knee was injected on the day of discharge after was okayed by infectious disease. 1 cc of Kenalog and 30 cc of Sensorcaine were used the Sensorcaine as an anesthetic and the Kenalog as a steroid. OTHER PROBLEMS/DIAGNOSIS: Principal Problem (Resolved): Osteomyelitis of great toe of right foot ([facility]) Active Problems: Acute medial meniscus tear Simple chronic bronchitis ([facility]) Essential hypertension H/O insertion of central venous access port Class 2 obesity due to excess calories with body mass index (BMI) of 35.0 to 35.9 in adult Stage 3b chronic kidney disease ([facility]) Type 2 diabetes mellitus with diabetic nephropathy, without long-term current use of insulin ([facility]) Coronary artery disease involving newtok coronary artery of newtok heart without angina pectoris Hyperlipidemia, mixed Paroxysmal atrial fibrillation ([facility]) Acute pain of left knee Hemarthrosis involving knee joint, left Physical debility Depression Resolved Problems: MCKAY (acute kidney injury) ([facility]) OPERATIONS PERFORMED WHILE IN THE HOSPITAL: Surgical debridement of the right great toe with amputation IMPORTANT TEST/PROCEDURES: aspiration of the right knee the fluid not infected and it was injected on the day of discharge TEST RESULTS NOT AVAILABLE AT THIS TIME: No pending results Discharge Disposition Discharge Disposition: Longterm Facility - Less than 30 Days Activity When You Leave the Hospital Resume pre-hospital activity Diet Instructions Resume your pre-hospital diet For Pain When You Leave the Hospital Use acetaminophen (Tylenol) as recommended on the bottle Follow Up Appointments Follow-Up Appointment When: In 2 weeks Comment - 06/15 9:15 AM Patient/Parents to call for appointment?: Scheduled Jennifer Michele DO [phone] [facility] [address] PCP Requested Referral Follow-Up Appointment When: Tomorrow Comment - 06/07 10:00 AM Patient/Parents to call for appointment?: Scheduled Najma Bloom DO [phone] [facility] [address] PCP Requested Referral Follow-Up Appointment Your schedule has not called you in 2 days to be seen next week in the wound center call to make an appointment. When: In 1 week Patient/Parents to call for appointment?: Scheduled [facility] [phone] [facility] [address] PCP Requested Referral Additional Provider to Provider Information: Consultants: Dr. Escobedo for podiatry Dr. Brown for orthopedics Dr. Polanco for nephrology Dr. DEL VALLE for infectious disease PROCEDURES: 05/27 - Left knee aspiration 05/30-surgery planned by podiatry debridement and probable amputation of right great toe 06/06 left knee Kenalog/Sensorcaine injection Anticoagulation: Prior to admission: Apixaban Current: Apixaban on hold last dose a.m. 05/25 Smoking history: [id number] history of smoking quit 2014 ASSESSMENT/PLAN Reason for Admission: Left knee joint effusion seen on x-ray on the given Zosyn and vancomycin in the ED discharge yesterday from [place]. Reviewing the ED visit from 1724 vancomycin and Zosyn he had a fractured toe on MRI with probably an abrasion the left knee was a source of pain and his other symptoms sound like he may have had lactic acidosis causing them but his lactate was 1.4 IV Cefazolin ->completed on 06/06 OBJECTIVE EK05/11/2024 tachy (more content not included)... Normal [facility] CONSULT PROGon 06-06-2024 CONSULT PROG HNO ID: [id number] Author: EPI POLANCO MD Service: Nephrology Author Type: Physician Type: Consult Progress Note Filed: 06/06/2024 10:23 Note Text: NEPHROLOGY CONSULT PROGRESS NOTE Subjective INTERVAL HISTORY: The patient was seen and examined . No acute event overnight. PERTINENT ROS: GENERAL: No fever/chills. RESPIRATORY: Negative for cough, wheezing or shortness of breath. CARDIOVASCULAR: Negative for chest pain or palpitations. GI: Negative for nausea, vomiting, Diarrhea, abdominal pain. : Negative for dysuria and hematuria MEDICATIONS: Current Facility-Administered Medications Medication Dose Route Frequency acetaminophen 1,000 mg tab(s) (TYLENOL) 1,000 mg ORAL Q6H WHILE AWAKE lidocaine 4 % 1 Patch (SALONPAS) 1 Patch TRANSDERMAL DAILY AT 9 PM And lidocaine patch - REMOVE OTHER DAILY And lidocaine - VERIFY PATCH OTHER q 8 H insulin lispro injection (rapid acting) (ADMElog) SUBCUTANEOUS w MEALS insulin lispro injection (rapid acting) (ADMElog) SUBCUTANEOUS AT BEDTIME polyethylene glycol 3350 17 g packet 17 g ORAL DAILY PRN benzocaine-menthol 1 Lozenge (CEPACOL) 1 Lozenge MUCOUS MEMBRANE (TOPICAL MOUTH AND THROAT) q 2 H PRN benzonatate 100 mg cap(s) (TESSALON PERLE) 100 mg ORAL TID PRN calcium carbonate 1,000 mg chewable tab(s) (TUMS) 1,000 mg ORAL TID PRN prochlorperazine 10 mg injection (COMPAZINE) 10 mg INTRAVENOUS q 6 H PRN melatonin 3 mg tab(s) 3 mg ORAL AT BEDTIME PRN albuterol HFA 90 mcg/actuation 2 Puff (PROVENTIL HFA, VENTOLIN HFA) 2 Puff INHALATION q 4 H PRN allopurinol 100 mg tab(s) (ZYLOPRIM) 100 mg ORAL BID DULoxetine 60 mg cap(s) (CYMBALTA) 60 mg ORAL BID gabapentin 600 mg tab(s) (NEURONTIN) 600 mg ORAL TID rosuvastatin 40 mg tab(s) (CRESTOR) 40 mg ORAL DAILY sodium bicarbonate 1,300 mg tab(s) 1,300 mg ORAL BID dextrose 40 % 15 g 15 g ORAL PRN Or glucagon 1 mg injection 1 mg INTRAMUSCULAR PRN Or dextrose 10% iv bolus 12.5 g INTRAVENOUS PRN NaCl 0.9% iv flush bag 20 mL INTRAVENOUS PRN simethicone, chewable 80 mg tab(s) (MYLICON) 80 mg ORAL QID PRN dilTIAZem CD 120 mg cap(s) (CARDIZEM CD, CARTIA XT) 120 mg ORAL DAILY metoprolol tartrate (short acting) 25 mg tab(s) (LOPRESSOR) 25 mg ORAL q 12 H furosemide 40 mg tab(s) (LASIX) 40 mg ORAL DAILY dapagliflozin propanediol 10 mg tab(s) (FARXIGA) 10 mg ORAL DAILY WITH BREAKFAST metFORMIN 500 mg tab(s) (GLUCOPHAGE) 500 mg ORAL BID w MEALS SITagliptin phosphate 50 mg tab(s) (JANUVIA) 50 mg ORAL DAILY oxyCODONE IR 10 mg tab(s) (ROXICODONE) 10 mg ORAL q 4 H PRN oxyCODONE IR 5 mg tab(s) (ROXICODONE) 5 mg ORAL q 4 H PRN lidocaine 4 % topical cream (LMX) TOPICAL PRN apixaban 5 mg tab(s) (ELIQUIS) 5 mg ORAL BID glimepiride 2 mg tab(s) (AMARYL) 2 mg ORAL DAILY WITH BREAKFAST BUPivacaine (PF) 0.5 % (5 mg/mL) 45 mg injection 9 mL INTRA-ARTICULAR ONCE triamcinolone acetonide 40 mg injection (KeNALog 40) 40 mg INTRA-ARTICULAR ONCE cbdvhfiey-QTVMKRAschc-bg tracaine 3 mL topical gel (LET) 3 mL TOPICAL ONCE Objective PHYSICAL EXAM: BP 108/71 Pulse 111 Temp 36.7 ?C (98.1 ?F) (Oral) Resp 16 Ht 182.9 cm (6') Wt 118 kg (260 lb 2.3 oz) SpO2 98% BMI 35.28 kg/m? Intake/Output Summary (Last 24 hours) at 06/06/2024 1023 Last data filed at 06/05/20241999 Gross per 24 hour Intake 240 ml Output 200 ml Net 40 ml GENERAL: NAD HEENT : NCAT, MMM and pink EYES: Conjunctiva -Pallor, Non icterus sclera. NECK: supple, No JVD, LUNGS: CTA without rales or wheeze, diminished breath sounds, CV: no murmurs, clicks, or gallops. ABDOMEN: soft, NT, BS normal EDEMA : no Lower extremity/ no Dependent edema DATA: Diagnostic tests reviewed for today's visit: Most recent labs and imaging results. Recent Labs 06/06/24 0506 06/05/24 0616 06/04/24 0543 WBC 7.53 -- -- HB 9.9* -- -- HCT 31.4* -- -- PLT 142* -- -- NA 135* 135* 135* K 4.5 4.6 4.2 CHLOR 95* 96* 98 CO2 28 28 27 BUN 39* 44* 44* CREAT 1.97* 1.93* 1.73* GLUC 118* 116* 72* CA 9.0 9.0 8.8 Assessment/Plan 1. Chronic kidney disease Stage IIIb (baseline creatinine between 1.9 to 2.3 mg deciliter) likely in the setting of diabetic kidney disease 2. Status post fall 3. Left knee pain 4. Right foot pain, status post right great toe amputation right foot incision and drainage bone biopsies have debridement of bone right foot. 5. Type 2 diabetes 6. Hypertension 7. Atrial fibrillation 8. Coronary artery disease 9. Non-Hodgkin's lymphoma status post chemotherapy 3 years ago 10. Anemia 11. Hyperuricemia-uric acid 7.4 on 05/12/2024 12. Recent bilateral mild pelviectasis and hydroureter with concern for obstructive nephropathy and asymmetrical atrophy of left kidney Plan management -- Serum creatinine remained stable with a creatinine running between 1.7 to 2.2 mg/dL mg/dL and GFR at 45 mL/min. Remained at baseline. --All electrolytes and acid-base are in acceptable range. No significant acid-base d (more content not included)... Normal [facility] CONSULT PROG HNO ID: [id number] Author: AMRIT DEL VALLE MD Service: Infectious Disease Author Type: Physician Type: Consult Progress Note Filed: 06/06/2024 09:28 Note Text: INFECTIOUS DISEASE PROGRESS NOTE Patient Name: Yamilka Sharma INTERVAL HISTORY: NO significant events Denies acute or worsening symptoms No fevers/ No leukocytosis Screat: 1.8 (2.0) Patient Active Hospital Problem List: Osteomyelitis of great toe of right foot (HCC) (05/29/2024) Type 2 diabetes mellitus with diabetic nephropathy, without long-term current use of insulin (HCC) (07/21/2017) Coronary artery disease involving newtok coronary artery of newtok heart without angina pectoris (11/01/2021) Hyperlipidemia, mixed (05/02/2022) Paroxysmal atrial fibrillation (HCC) (01/10/2023) Acute pain of left knee (05/13/2024) Acute medial meniscus tear (05/25/2024) Essential hypertension (05/26/2024) Simple chronic bronchitis (HCC) (05/26/2024) Stage 3b chronic kidney disease (HCC) (05/26/2024) Class 2 obesity due to excess calories with body mass index (BMI) of 35.0 to 35.9 in adult (05/27/2024) H/O insertion of central venous access port (05/29/2024) Hemarthrosis involving knee joint, left (05/30/2024) Physical debility (05/30/2024) Depression (05/30/2024) ASSESSMENT: Knee pain Possible early OM of foot, Cx w Strep group C, plus rare SCN, likely colonizer Essential hypertension Type 2 diabetes mellitus Simple chronic bronchitis Atrial fibrillation Stage 3b chronic kidney disease PLAN: Completing abx today OK for knee steroids if needed as OM has been resected Left knee aspiration performed for therapeutic purposes. Synovial fluid results rev and has 18K WBC w 63% N, cultures are negative. Doubt septic arthritis D/c pending to SNF MEDICATIONS: reviewed. Current Facility-Administered Medications Medication Dose Route Frequency acetaminophen 1,000 mg tab(s) (TYLENOL) 1,000 mg ORAL Q6H WHILE AWAKE lidocaine 4 % 1 Patch (SALONPAS) 1 Patch TRANSDERMAL DAILY AT 9 PM And lidocaine patch - REMOVE OTHER DAILY And lidocaine - VERIFY PATCH OTHER q 8 H insulin lispro injection (rapid acting) (ADMElog) SUBCUTANEOUS w MEALS insulin lispro injection (rapid acting) (ADMElog) SUBCUTANEOUS AT BEDTIME polyethylene glycol 3350 17 g packet 17 g ORAL DAILY PRN benzocaine-menthol 1 Lozenge (CEPACOL) 1 Lozenge MUCOUS MEMBRANE (TOPICAL MOUTH AND THROAT) q 2 H PRN benzonatate 100 mg cap(s) (TESSALON PERLE) 100 mg ORAL TID PRN calcium carbonate 1,000 mg chewable tab(s) (TUMS) 1,000 mg ORAL TID PRN prochlorperazine 10 mg injection (COMPAZINE) 10 mg INTRAVENOUS q 6 H PRN melatonin 3 mg tab(s) 3 mg ORAL AT BEDTIME PRN albuterol HFA 90 mcg/actuation 2 Puff (PROVENTIL HFA, VENTOLIN HFA) 2 Puff INHALATION q 4 H PRN allopurinol 100 mg tab(s) (ZYLOPRIM) 100 mg ORAL BID DULoxetine 60 mg cap(s) (CYMBALTA) 60 mg ORAL BID gabapentin 600 mg tab(s) (NEURONTIN) 600 mg ORAL TID rosuvastatin 40 mg tab(s) (CRESTOR) 40 mg ORAL DAILY sodium bicarbonate 1,300 mg tab(s) 1,300 mg ORAL BID dextrose 40 % 15 g 15 g ORAL PRN Or glucagon 1 mg injection 1 mg INTRAMUSCULAR PRN Or dextrose 10% iv bolus 12.5 g INTRAVENOUS PRN NaCl 0.9% iv flush bag 20 mL INTRAVENOUS PRN simethicone, chewable 80 mg tab(s) (MYLICON) 80 mg ORAL QID PRN dilTIAZem CD 120 mg cap(s) (CARDIZEM CD, CARTIA XT) 120 mg ORAL DAILY metoprolol tartrate (short acting) 25 mg tab(s) (LOPRESSOR) 25 mg ORAL q 12 H furosemide 40 mg tab(s) (LASIX) 40 mg ORAL DAILY dapagliflozin propanediol 10 mg tab(s) (FARXIGA) 10 mg ORAL DAILY WITH BREAKFAST metFORMIN 500 mg tab(s) (GLUCOPHAGE) 500 mg ORAL BID w MEALS SITagliptin phosphate 50 mg tab(s) (JANUVIA) 50 mg ORAL DAILY oxyCODONE IR 10 mg tab(s) (ROXICODONE) 10 mg ORAL q 4 H PRN oxyCODONE IR 5 mg tab(s) (ROXICODONE) 5 mg ORAL q 4 H PRN lidocaine 4 % topical cream (LMX) TOPICAL PRN apixaban 5 mg tab(s) (ELIQUIS) 5 mg ORAL BID glimepiride 2 mg tab(s) (AMARYL) 2 mg ORAL DAILY WITH BREAKFAST PHYSICAL EXAM: Vital signs: BP 108/71 Pulse 111 Temp 36.7 ?C (98.1 ?F) (Oral) Resp 16 Ht 182.9 cm (6') Wt 118 kg (260 lb 2.3 oz) SpO2 98% BMI 35.28 kg/m? Temp (24hrs), Av.6 ?C (97.9 ?F), Min:36.5 ?C (97.7 ?F), Max:36.6 ?C (97.9 ?F) General: alert, oriented, NAD Lungs: bilaterally clear to auscultation Heart: regular rate and rhythm Abdomen: soft, non tender, non distended, BS+ Extremities: foot dressing No rashes No joint inflammation Neck supple Lines ok No CVAT Lines, Drains, and Airways Line Duration Implanted Vascular Access Device Single Port 06/02/24 1500 Right Chest 3 days Labs: Recent Labs 06/06/24 0506 06/05/24 0616 06/04/24 0543 WBC 7.53 -- -- HB 9.9* -- -- PLT 142* -- -- NA 135* 135* 135* K 4.5 4.6 4.2 CO2 28 28 27 BUN 39* 44* 44* CREAT 1.97* 1.93* 1.73* Microbiology data: reviewed Imaging data: reviewed Amrit Del Valle MD [phone] 06/06/2024 9:28 AM Normal [facility] NURSING PROGon 06-06-2024 NURSING PROG HNO ID: [id number] Author: CESIA SHANKS LPN Service: Nursing Author Type: LICENSED NURSE Type: Nursing Progress Note Filed: 06/06/2024 18:03 Note Text: -------- Summary: Admission -------- 9181 Patient arrived to unit in wheelchair via car with and daughter. Assist x1 from w/c to bed. Oriented to room. Admission assessment completed. All questions answered. Retail Department Supervisor completed daily dressing change to surgical site for right great toe just before discharge from [facility]. Dressing remains clean, dry and intact. Cast shoe on. Reports last BM today. Call light within reach. Channel 95 on for patient to view. Normal [facility] Basic metabolic 2000 panelon 06-05-2024 Anion gap [Moles/Vol] 11 mmol/L Normal 8-15 [facility] Comment on above: Order Comment: Satno malik Type: BLOOD SPECIMENOrdering Facility: [facility] Address: [address] [place] [address] Performed By: #### 2 4321-2 ####[facility] LABORATORYCLIA [id number] [place] [address] [place] Calcium [Mass/Vol] 9.0 mg/dL Normal 8.5-10.2 [facility] Comment on above: Order Comment: Santo malik Type: BLOOD SPECIMENOrdering Facility: [facility] Address: [address] [place] [address] Performed By: #### 2 4321-2 ####[facility] LABORATORYCLIA [id number] [place] [address] [place] Chloride [Moles/Vol] 96 mmol/L Low 98-107 [facility] Comment on above: Order Comment: Speci men Type: BLOOD SPECIMENOrdering Facility: [facility] Address: [address] [place] [address] Performed By: #### 2 4321-2 ####BREAUX LABORATORYCLIA [id number] [place] [address] [place] CO2 [Moles/Vol] 28 mmol/L Normal 22-30 [facility] Comment on above: Order Comment: Speci men Type: BLOOD SPECIMENOrdering Facility: [facility] Address: [address] [place] [address] Performed By: #### 2 4321-2 ####[facility] LABORATORYCLIA [id number] [address] [place] Creatinine [Mass/Vol] 1.93 mg/dL High 0.73-1.22 [facility] Comment on above: Order Comment: Speci men Type: BLOOD SPECIMENOrdering Facility: [facility] Address: [address] [place] [address] Performed By: #### 2 4321-2 ####[facility] LABORATORYCLIA [id number] [address] Creatinine and Glomerular filtration rate.predicted panel (S/P/Bld) 39 mL/min/1.73m??? Low >=60 [facility] Comment on above: Order Comment: Speci men Type: BLOOD SPECIMENOrdering Facility: [facility] Address: [address] [place] [address] Result Comment: Karissa mated Glomerular Filtration Rate (eGFR) is calculated using the 2020 CKD-EPI creatinine equation. This equation utilizes serum creatinine, sex, and age as parameters. The creatinine assay has traceable calibration to isotope dilution-mass spectrometry. Refer to KDIGO guidelines for clinical interpretation. In patients with unstable renal function, e.g. those with acute kidney injury, the eGFR may not accurately reflect actual GFR. Performed By: #### 2 4321-2 ####BRE[facility] LABORATORYCLIA [id number] [place] [address] [place] Glucose [Mass/Vol] 116 mg/dL High 74-99 [facility] Comment on above: Order Comment: Santo malik Type: BLOOD SPECIMENOrdering Facility: [facility] Address: [address] [place] [address] Result Comment: The [place] Diabetes Association (ADA) provides guidance for cutoff values for fasting glucose and random glucose. The ADA defines fasting as no caloric intake for at least 8 hours. Fasting plasma glucose results between 100 to 125 mg/dL indicate increased risk for diabetes (prediabetes). Fasting plasma glucose results greater than or equal to 126 mg/dL meet the criteria for diagnosis of diabetes. In the absence of unequivocal hyperglycemia, results should be confirmed by repeat testing. In a patient with classic symptoms of hyperglycemia or hyperglycemic crisis, random plasma glucose results greater than or equal to 200 mg/dL meet the criteria for diagnosis of diabetes. Reference: Standards of Medical Care in Diabetes 2016, [place] [employer]. Diabetes Care. 2016.39(Suppl 1). Performed By: #### 2 4321-2 ####BRE[facility] LABORATORYCLIA [id number] [place] [address] [place] Potassium [Moles/Vol] 4.6 mmol/L Normal 3.7-5.1 [facility] Comment on above: Order Comment: Santo malik Type: BLOOD SPECIMENOrdering Facility: [facility] Address: [address] [place] [address] Performed By: #### 2 4321-2 ####BRE[facility] LABORATORYCLIA [id number] [place] [id number] [place] Sodium [Moles/Vol] 135 mmol/L Low 136-144 [facility] Comment on above: Order Comment: Santo malik Type: BLOOD SPECIMENOrdering Facility: [facility] Address: [address] [place] [address] Performed By: #### 2 4321-2 ####BRE[facility] LABORATORYCLIA [id number] [place] [address] [place] Urea nitrogen [Mass/Vol] 44 mg/dL High 9-24 [facility] Comment on above: Order Comment: Santo malik Type: BLOOD SPECIMENOrdering Facility: [facility] Address: [address] [place] [address] Performed By: #### 2 4321-2 ####[facility] LABORATORYCLIA [id number] [place] [address] [place] CONSULT PROGon 06-05-2024 CONSULT PROG HNO ID: [id number] Author: PAPI DHILLON RPh Service: Pharmacy Author Type: Pharmacist Type: Consult Progress Note Filed: 06/05/2024 12:42 Note Text: PHARMACY PROGRESS NOTE Patient Name: Yamilka Sharma Admission Date: 05/25/2024 Date of Consult: 06/05/2024 Time of Consult: 12:42 PM In accordance with the inpatient pharmacy consult agreement the following medication changes have been made: CBC ordered with am labs per anticoagulation monitoring policy. Pharmacy will continue to monitor patient for continued eligibility of these medication changes. Please call with any questions or concerns. SIGNATURE: Papi Dhillon RPh DATE/TIME: 06/05/2024 12:42 PM Normal [facility] Basic metabolic 2000 panelon 06-04-2024 Anion gap [Moles/Vol] 10 mmol/L Normal 8-15 [facility] Comment on above: Order Comment: Santo malik Type: BLOOD SPECIMENOrdering Facility: [facility] Address: [address] [place] [address] Performed By: #### 2 4321-2 ####[facility] LABORATORYCLIA [id number] [place] [id number] [place] Calcium [Mass/Vol] 8.8 mg/dL Normal 8.5-10.2 [facility] Comment on above: Order Comment: Santo malik Type: BLOOD SPECIMENOrdering Facility: [facility] Address: [address] [place] [address] Performed By: #### 2 4321-2 ####[facility] LABORATORYCLIA [id number] [place] [address] [place] Chloride [Moles/Vol] 98 mmol/L Normal 98-107 [facility] Comment on above: Order Comment: Speci men Type: BLOOD SPECIMENOrdering Facility: [facility] Address: [address] [place] [address] Performed By: #### 2 4321-2 ####BRE[facility] LABORATORYCLIA [id number] [place] [id number] [place] CO2 [Moles/Vol] 27 mmol/L Normal 22-30 [facility] Comment on above: Order Comment: Speci men Type: BLOOD SPECIMENOrdering Facility: [facility] Address: [address] [place] [address] Performed By: #### 2 4321-2 ####[facility] LABORATORYCLIA [id number] [place] [address] [place] Creatinine [Mass/Vol] 1.73 mg/dL High 0.73-1.22 [facility] Comment on above: Order Comment: Speci men Type: BLOOD SPECIMENOrdering Facility: [facility] Address: [address] [place] [address] Performed By: #### 2 4321-2 ####BRE[facility] LABORATORYCLIA [id number] [place] [address] [place] Creatinine and Glomerular filtration rate.predicted panel (S/P/Bld) 45 mL/min/1.73m??? Low >=60 [facility] Comment on above: Order Comment: Speci men Type: BLOOD SPECIMENOrdering Facility: [facility] Address: [address] [place] [address] Result Comment: Karissa mated Glomerular Filtration Rate (eGFR) is calculated using the 2020 CKD-EPI creatinine equation. This equation utilizes serum creatinine, sex, and age as parameters. The creatinine assay has traceable calibration to isotope dilution-mass spectrometry. Refer to KDIGO guidelines for clinical interpretation. In patients with unstable renal function, e.g. those with acute kidney injury, the eGFR may not accurately reflect actual GFR. Performed By: #### 2 4321-2 ####[facility] LABORATORYCLIA [id number] [place] [id number] [place] Glucose [Mass/Vol] 72 mg/dL Low 74-99 [facility] Comment on above: Order Comment: Speci men Type: BLOOD SPECIMENOrdering Facility: [facility] Address: [address] [place] [address] Result Comment: The [place] Diabetes Association (ADA) provides guidance for cutoff values for fasting glucose and random glucose. The ADA defines fasting as no caloric intake for at least 8 hours. Fasting plasma glucose results between 100 to 125 mg/dL indicate increased risk for diabetes (prediabetes). Fasting plasma glucose results greater than or equal to 126 mg/dL meet the criteria for diagnosis of diabetes. In the absence of unequivocal hyperglycemia, results should be confirmed by repeat testing. In a patient with classic symptoms of hyperglycemia or hyperglycemic crisis, random plasma glucose results greater than or equal to 200 mg/dL meet the criteria for diagnosis of diabetes. Reference: Standards of Medical Care in Diabetes 2016, [place] [employer]. Diabetes Care. 2016.39(Suppl 1). Performed By: #### 2 4321-2 ####[facility] LABORATORYCLIA [id number] [place] [address] [place] Potassium [Moles/Vol] 4.2 mmol/L Normal 3.7-5.1 [facility] Comment on above: Order Comment: Santo king Type: BLOOD SPECIMENOrdering Facility: [facility] Address: [address] [place] [address] Performed By: #### 2 4321-2 ####[facility] LABORATORYCLIA [id number] [place] [address] [place] Sodium [Moles/Vol] 135 mmol/L Low 136-144 [facility] Comment on above: Order Comment: Raghui men Type: BLOOD SPECIMENOrdering Facility: [facility] Address: [address] [place], [place] [id number] Performed By: #### 2 4321-2 ####[facility] LABORATORYCLIA [id number] [place] [address] [place] Urea nitrogen [Mass/Vol] 44 mg/dL High 9-24 [facility] Comment on above: Order Comment: Raghui men Type: BLOOD SPECIMENOrdering Facility: [facility] Address: [address] [place] [id number] Performed By: #### 2 4321-2 ####BRE[facility] LABORATORYCLIA [id number] [place] [address] [place] CONSULT PROGon 06-04-2024 CONSULT PROG HNO ID: [id number] Author: EPI POLANCO MD Service: Nephrology Author Type: Physician Type: Consult Progress Note Filed: 06/04/2024 10:44 Note Text: NEPHROLOGY CONSULT PROGRESS NOTE Subjective INTERVAL HISTORY: The patient was seen and examined . No acute event overnight. PERTINENT ROS: GENERAL: No fever/chills. RESPIRATORY: Negative for cough, wheezing or shortness of breath. CARDIOVASCULAR: Negative for chest pain or palpitations. GI: Negative for nausea, vomiting, Diarrhea, abdominal pain. : Negative for dysuria and hematuria MEDICATIONS: Current Facility-Administered Medications Medication Dose Route Frequency acetaminophen 1,000 mg tab(s) (TYLENOL) 1,000 mg ORAL Q6H WHILE AWAKE lidocaine 4 % 1 Patch (SALONPAS) 1 Patch TRANSDERMAL DAILY AT 9 PM And lidocaine patch - REMOVE OTHER DAILY And lidocaine - VERIFY PATCH OTHER q 8 H insulin lispro injection (rapid acting) (ADMElog) SUBCUTANEOUS w MEALS insulin lispro injection (rapid acting) (ADMElog) SUBCUTANEOUS AT BEDTIME polyethylene glycol 3350 17 g packet 17 g ORAL DAILY PRN benzocaine-menthol 1 Lozenge (CEPACOL) 1 Lozenge MUCOUS MEMBRANE (TOPICAL MOUTH AND THROAT) q 2 H PRN benzonatate 100 mg cap(s) (TESSALON PERLE) 100 mg ORAL TID PRN calcium carbonate 1,000 mg chewable tab(s) (TUMS) 1,000 mg ORAL TID PRN prochlorperazine 10 mg injection (COMPAZINE) 10 mg INTRAVENOUS q 6 H PRN melatonin 3 mg tab(s) 3 mg ORAL AT BEDTIME PRN albuterol HFA 90 mcg/actuation 2 Puff (PROVENTIL HFA, VENTOLIN HFA) 2 Puff INHALATION q 4 H PRN allopurinol 100 mg tab(s) (ZYLOPRIM) 100 mg ORAL BID DULoxetine 60 mg cap(s) (CYMBALTA) 60 mg ORAL BID gabapentin 600 mg tab(s) (NEURONTIN) 600 mg ORAL TID rosuvastatin 40 mg tab(s) (CRESTOR) 40 mg ORAL DAILY sodium bicarbonate 1,300 mg tab(s) 1,300 mg ORAL BID dextrose 40 % 15 g 15 g ORAL PRN Or glucagon 1 mg injection 1 mg INTRAMUSCULAR PRN Or dextrose 10% iv bolus 12.5 g INTRAVENOUS PRN NaCl 0.9% iv flush bag 20 mL INTRAVENOUS PRN simethicone, chewable 80 mg tab(s) (MYLICON) 80 mg ORAL QID PRN dilTIAZem CD 120 mg cap(s) (CARDIZEM CD, CARTIA XT) 120 mg ORAL DAILY metoprolol tartrate (short acting) 25 mg tab(s) (LOPRESSOR) 25 mg ORAL q 12 H furosemide 40 mg tab(s) (LASIX) 40 mg ORAL DAILY dapagliflozin propanediol 10 mg tab(s) (FARXIGA) 10 mg ORAL DAILY WITH BREAKFAST metFORMIN 500 mg tab(s) (GLUCOPHAGE) 500 mg ORAL BID w MEALS SITagliptin phosphate 50 mg tab(s) (JANUVIA) 50 mg ORAL DAILY oxyCODONE IR 10 mg tab(s) (ROXICODONE) 10 mg ORAL q 4 H PRN oxyCODONE IR 5 mg tab(s) (ROXICODONE) 5 mg ORAL q 4 H PRN lidocaine 4 % topical cream (LMX) TOPICAL PRN apixaban 5 mg tab(s) (ELIQUIS) 5 mg ORAL BID glimepiride 2 mg tab(s) (AMARYL) 2 mg ORAL BID w MEALS cephALEXin 500 mg cap(s) (KEFLEX) 500 mg ORAL q 6 H Objective PHYSICAL EXAM: BP 109/68 Pulse 98 Temp 37.1 ?C (98.7 ?F) (Oral) Resp 18 Ht 182.9 cm (6') Wt 118 kg (260 lb 2.3 oz) SpO2 96% BMI 35.28 kg/m? Intake/Output Summary (Last 24 hours) at 06/04/2024 1043 Last data filed at 06/04/2024 0939 Gross per 24 hour Intake 900 ml Output 1675 ml Net -775 ml GENERAL: NAD HEENT : NCAT, MMM and pink EYES: Conjunctiva -Pallor, Non icterus sclera. NECK: supple, No JVD, LUNGS: CTA without rales or wheeze, diminished breath sounds, CV: no murmurs, clicks, or gallops. ABDOMEN: soft, NT, BS normal EDEMA : no Lower extremity/ no Dependent edema DATA: Diagnostic tests reviewed for today's visit: Most recent labs and imaging results. Recent Labs 06/04/24 0543 06/03/24 0628 06/02/24 0522 WBC -- -- 9.97 HB -- -- 10.7* HCT -- -- 33.6* PLT -- -- 136* NA 135* 135* 134* K 4.2 4.6 4.7 CHLOR 98 99 98 CO2 27 28 27 BUN 44* 48* 52* CREAT 1.73* 1.82* 2.07* GLUC 72* 106* 81 CA 8.8 9.1 8.7 Assessment/Plan 1. Chronic kidney disease Stage IIIb (baseline creatinine between 1.9 to 2.3 mg deciliter) likely in the setting of diabetic kidney disease 2. Status post fall 3. Left knee pain 4. Right foot pain, status post right great toe amputation right foot incision and drainage bone biopsies have debridement of bone right foot. 5. Type 2 diabetes 6. Hypertension 7. Atrial fibrillation 8. Coronary artery disease 9. Non-Hodgkin's lymphoma status post chemotherapy 3 years ago 10. Anemia 11. Hyperuricemia-uric acid 7.4 on 05/12/2024 12. Recent bilateral mild pelviectasis and hydroureter with concern for obstructive nephropathy and asymmetrical atrophy of left kidney Plan management -- Serum creatinine decreased to 1.73 mg/dL and GFR at 45 mL/min. Remained at baseline. --All electrolytes and acid-base are in acceptable range. No significant acid-base disturbance. --Ultrasound atrophic left kidney with moderate left hydronephrosis similar to CT scan of 05/11/2024. Prior CT demonstrate postsurgical changes of left psoas hitch with ureter implantation. Interval resolution of right hydron (more content not included)... Normal [facility] THERAPY NTon 06-04-2024 THERAPY NT HNO ID: [id number] Author: ROSALBA GEORGE PTA Service: Physical Therapy Author Type: Manager Strategic Type: Therapy (PT/OT/Speech/Resp) Filed: 06/04/2024 11:43 Note Text: -------- Attestation signed by Osiris Liao PT, DPT at 06/08/2024 4:27 PM I reviewed and agree with the documentation corresponding to this therapy visit. SIGNATURE: Osiris Liao PT, DPT DATE: June 08, 2024 TIME: 4:27 PM -------- Physical Therapy Treatment Summary SERVICE DATE: 06/04/2024 SERVICE TIME: 1118 to 1127 ROOM: [place] [address] PT 6 Clicks Score: 18 DISCHARGE RECOMMENDATIONS Subacute/SNF Recommended Discharge Disposition Comments: Decreased strength, mobility, balance and safety awarenesss. Requires skilled daily rehab to progress prior to return home to reduce risk of recurrent hospitalization Recommended Discharge Disposition Due to: Functional deficits requiring ongoing therapy service prior to discharge home., Anticipated community discharge, Balance deficits, Coordination deficits, Dominant side deficits, Functional status decline, Requires multiple therapy disciplines Recommended Discharge Equipment: To Be Determined ASSESSMENT Response to Therapy Interventions: Improved Tolerance for Activity, Multiple Ongoing Medical Issues, Pain, Requires Additional Time to Complete Activities, Requires Encouragement to Complete Activities Patient irritated about length of stay within hospital and states he requested a wheelchair from someone in nursing to get out of his room and around the unit. Encouargement provided and communication with nursing about wheelchair. Pt self limiting reporting high pain level but does not present outward signs. States what he was willing to perform prior to mobility and refuses other activities PRECAUTIONS Fall Risk, Lines/Tubes/Drains, Weight Bearing Restrictions Left Lower Extremity Weight Bearing Status: WBAT Right Lower Extremity Weight Bearing Status: NWB CURRENT HOSPITAL COURSE Patient presents to the ED with L knee pain, fall, R great toe osteomyelitis and pathological fx, MRI L knee (-) for occult fx but showing medial mensicus tear, large joint effusion with mild synovitis s/p L knee aspiration, ortho recommending no surgical intervention and WBAT LLE, S/p R great toe amputation, R foot IANDD, bone biopsy, sharp debridement bone R foot 05/30 Relevant Past Medical History: DM2 afib HTN CAD obesity non-hodgkin's lymphoma s/p chemo 3 yrs ago with chronic med port in place for difficult IV access, recent hospital stay at for R toe cellulitis/wound s/p abx/debridement and left knee swelling/pain s/p arthrocentesis; possible toe surgery this upcoming week HOME LIVING Patient Lives With: Spouse Assistance Available: 24-Hour Entry To Home: Stairs Number Of Stairs Into Home: (t) Number Of Stairs To Bed/Bath: 0 Stairs to Bed/Bath with: Unilateral Rail Tub/Shower Type: walk in Laundry: spouse Equipment Owned: Cane, Grab Bars- Shower, Grab Bars- Toilet, Shower Chair, Walker- Wheeled, Rollator PRIOR FUNCTIONAL LEVEL Required Assistance, Within Functional Limits Assistance Required With: Cleaning, Laundry, Meals Pt typically indep ro ADLs and contributes to IADLs. Used cane outside of home and ww sometimes in the home. . Sleeps on a recliner and/or couch since his chemo (more comfortable). assists setting up meds, pt reports 2 falls l ast 6 mos. Last fall as result of pulling self up from couch with RW. SUBJECTIVE Irritable about stay in hospital. Agreeable to therapy but self limiting THERAPY DIAGNOSIS Reduced mobility-other, Muscle Weakness (generalized), Difficulty walking-musculoskeletal TREATMENT INTERVENTIONS Therapeutic Activity (98249), Gait Training (54933) Timed Code Treatment (minutes): 9 Skilled Treatment Time (minutes): 9 Therapeutic Activity (73453) Treatment Minutes: 1 $ Therapeutic Activity (42061) Billed Units: 0 units Gait Training (10313) Treatment Minutes: 8 $ Gait Training (64082) Billed Units: 1 unit TRAINING AND EDUCATION PROVIDED Assistive Device Use, Bed Mobility, Benefits of In-Hospital Mobility, Energy Conservation, Positioning, Precautions/Restrictions , Role of Physical Therapy, Transfers, Gait Pattern, Reduction of Deviations, Equipment THERAPEUTIC SKILLS USED Activity Dosing, Cues for Sequencing/Proper Technique for Activity, Cuing Verbal, Cuing Tactile, Movement Facilitation, Muscle Activation Facilitation, Physical Assist, Postural Alignment Correction FUNCTIONAL STATUS Bed Mobility Supine To Sit: Supervision, Additional Information from sidelying to EOB sitting Sit to Supine: Contact Guard Assistance, Additional Information Vcs for sequencing Scooting: Contact Guard Assistance, Additional Information Vcs for ant we (more content not included)... Normal [facility] Basic metabolic 2000 panelon 06-03-2024 Anion gap [Moles/Vol] 8 mmol/L Normal 8-15 [facility] Comment on above: Order Comment: Speci men Type: BLOOD SPECIMENOrdering Facility: [facility] Address: [address] [place] [address] Performed By: #### 2 4321-2 ####[facility] LABORATORYCLIA [id number] [place] [address] [place] Calcium [Mass/Vol] 9.1 mg/dL Normal 8.5-10.2 [facility] Comment on above: Order Comment: Speci men Type: BLOOD SPECIMENOrdering Facility: [facility] Address: [address] [place] [address] Performed By: #### 2 4321-2 ####[facility] LABORATORYCLIA [id number] [place] [address] [place] Chloride [Moles/Vol] 99 mmol/L Normal 98-107 [facility] Comment on above: Order Comment: Speci men Type: BLOOD SPECIMENOrdering Facility: [facility] Address: [address] [place] [address] Performed By: #### 2 4321-2 ####[facility] LABORATORYCLIA [id number] [place] [address] [place] CO2 [Moles/Vol] 28 mmol/L Normal 22-30 [facility] Comment on above: Order Comment: Speci men Type: BLOOD SPECIMENOrdering Facility: [facility] Address: [address] [place] [address] Performed By: #### 2 4321-2 ####[facility] LABORATORYCLIA [id number] [place] [address] [place] Creatinine [Mass/Vol] 1.82 mg/dL High 0.73-1.22 [facility] Comment on above: Order Comment: Speci men Type: BLOOD SPECIMENOrdering Facility: [facility] Address: [address] [place] [address] Performed By: #### 2 4321-2 ####[facility] LABORATORYCLIA [id number] [place] [address] [place] Creatinine and Glomerular filtration rate.predicted panel (S/P/Bld) 42 mL/min/1.73m??? Low >=60 [facility] Comment on above: Order Comment: Santo malik Type: BLOOD SPECIMENOrdering Facility: [facility] Address: [address] [place] [address] Result Comment: Karissa mated Glomerular Filtration Rate (eGFR) is calculated using the 2020 CKD-EPI creatinine equation. This equation utilizes serum creatinine, sex, and age as parameters. The creatinine assay has traceable calibration to isotope dilution-mass spectrometry. Refer to KDIGO guidelines for clinical interpretation. In patients with unstable renal function, e.g. those with acute kidney injury, the eGFR may not accurately reflect actual GFR. Performed By: #### 2 4321-2 ####[facility] LABORATORYCLIA [id number] [place] [id number] [place] Glucose [Mass/Vol] 106 mg/dL High 74-99 [facility] Comment on above: Order Comment: Santo malik Type: BLOOD SPECIMENOrdering Facility: [facility] Address: [address] [place] [address] Result Comment: The [place] Diabetes [employer] (ADA) provides guidance for cutoff values for fasting glucose and random glucose. The ADA defines fasting as no caloric intake for at least 8 hours. Fasting plasma glucose results between 100 to 125 mg/dL indicate increased risk for diabetes (prediabetes). Fasting plasma glucose results greater than or equal to 126 mg/dL meet the criteria for diagnosis of diabetes. In the absence of unequivocal hyperglycemia, results should be confirmed by repeat testing. In a patient with classic symptoms of hyperglycemia or hyperglycemic crisis, random plasma glucose results greater than or equal to 200 mg/dL meet the criteria for diagnosis of diabetes. Reference: Standards of Medical Care in Diabetes 2016, [place] [employer]. Diabetes Care. 2016.39(Suppl 1). Performed By: #### 2 4321-2 ####[facility] LABORATORYCLIA [id number] [place] [address] [place] Potassium [Moles/Vol] 4.6 mmol/L Normal 3.7-5.1 [facility] Comment on above: Order Comment: Speci men Type: BLOOD SPECIMENOrdering Facility: [facility] Address: [address] [place] [address] Performed By: #### 2 4321-2 ####[facility] LABORATORYCLIA [id number] [place] [id number] [facility] Sodium [Moles/Vol] 135 mmol/L Low 136-144 [facility] Comment on above: Order Comment: Speci men Type: BLOOD SPECIMENOrdering Facility: [facility] Address: [address] [place] [address] Performed By: #### 2 4321-2 ####[facility] LABORATORYCLIA [id number] [address] Urea nitrogen [Mass/Vol] 48 mg/dL High 9-24 [facility] Comment on above: Order Comment: Raghui men Type: BLOOD SPECIMENOrdering Facility: [facility] Address: [address] [place] [address] Performed By: #### 2 4321-2 ####[facility] LABORATORYCLIA [id number] [address] CONSULT PROGon 06-03-2024 CONSULT PROG HNO ID: [id number] Author: AMRIT DEL VALLE MD Service: Infectious Disease Author Type: Physician Type: Consult Progress Note Filed: 06/04/2024 00:55 Note Text: INFECTIOUS DISEASE PROGRESS NOTE Patient Name: Yamilka Sharma INTERVAL HISTORY: NO significant events Denies acute or worsening symptoms No fevers/ No leukocytosis Screat: 1.8 (2.0) Patient Active Hospital Problem List: Osteomyelitis of great toe of right foot (HCC) (05/29/2024) Type 2 diabetes mellitus with diabetic nephropathy, without long-term current use of insulin ([facility]) (07/21/2017) Coronary artery disease involving [place] coronary artery of [place] heart without angina pectoris (11/01/2021) Hyperlipidemia, mixed (05/02/2022) Paroxysmal atrial fibrillation (HCC) (01/10/2023) Acute pain of left knee (05/13/2024) Acute medial meniscus tear (05/25/2024) Essential hypertension (05/26/2024) Simple chronic bronchitis (HCC) (05/26/2024) Stage 3b chronic kidney disease (HCC) (05/26/2024) Class 2 obesity due to excess calories with body mass index (BMI) of 35.0 to 35.9 in adult (05/27/2024) H/O insertion of central venous access port (05/29/2024) Hemarthrosis involving knee joint, left (05/30/2024) Physical debility (05/30/2024) Depression (05/30/2024) ASSESSMENT: Knee pain Possible early OM of foot, Cx w Strep group C, plus rare SCN, likely colonizer Essential hypertension Type 2 diabetes mellitus Simple chronic bronchitis Atrial fibrillation Stage 3b chronic kidney disease PLAN: OK to discharge on PO Cephalexin till 06/06 OK for knee steroids if needed as OM has been resected Left knee aspiration performed for therapeutic purposes. Synovial fluid results rev and has 18K WBC w 63% N, cultures are negative. Doubt septic arthritis D/c pending to SNF MEDICATIONS: reviewed. Current Facility-Administered Medications Medication Dose Route Frequency acetaminophen 1,000 mg tab(s) (TYLENOL) 1,000 mg ORAL Q6H WHILE AWAKE lidocaine 4 % 1 Patch (SALONPAS) 1 Patch TRANSDERMAL DAILY AT 9 PM And lidocaine patch - REMOVE OTHER DAILY And lidocaine - VERIFY PATCH OTHER q 8 H insulin lispro injection (rapid acting) (ADMElog) SUBCUTANEOUS w MEALS insulin lispro injection (rapid acting) (ADMElog) SUBCUTANEOUS AT BEDTIME polyethylene glycol 3350 17 g packet 17 g ORAL DAILY PRN benzocaine-menthol 1 Lozenge (CEPACOL) 1 Lozenge MUCOUS MEMBRANE (TOPICAL MOUTH AND THROAT) q 2 H PRN benzonatate 100 mg cap(s) (TESSALON PERLE) 100 mg ORAL TID PRN calcium carbonate 1,000 mg chewable tab(s) (TUMS) 1,000 mg ORAL TID PRN prochlorperazine 10 mg injection (COMPAZINE) 10 mg INTRAVENOUS q 6 H PRN melatonin 3 mg tab(s) 3 mg ORAL AT BEDTIME PRN albuterol HFA 90 mcg/actuation 2 Puff (PROVENTIL HFA, VENTOLIN HFA) 2 Puff INHALATION q 4 H PRN allopurinol 100 mg tab(s) (ZYLOPRIM) 100 mg ORAL BID DULoxetine 60 mg cap(s) (CYMBALTA) 60 mg ORAL BID gabapentin 600 mg tab(s) (NEURONTIN) 600 mg ORAL TID rosuvastatin 40 mg tab(s) (CRESTOR) 40 mg ORAL DAILY sodium bicarbonate 1,300 mg tab(s) 1,300 mg ORAL BID dextrose 40 % 15 g 15 g ORAL PRN Or glucagon 1 mg injection 1 mg INTRAMUSCULAR PRN Or dextrose 10% iv bolus 12.5 g INTRAVENOUS PRN NaCl 0.9% iv flush bag 20 mL INTRAVENOUS PRN simethicone, chewable 80 mg tab(s) (MYLICON) 80 mg ORAL QID PRN dilTIAZem CD 120 mg cap(s) (CARDIZEM CD, CARTIA XT) 120 mg ORAL DAILY metoprolol tartrate (short acting) 25 mg tab(s) (LOPRESSOR) 25 mg ORAL q 12 H furosemide 40 mg tab(s) (LASIX) 40 mg ORAL DAILY dapagliflozin propanediol 10 mg tab(s) (FARXIGA) 10 mg ORAL DAILY WITH BREAKFAST metFORMIN 500 mg tab(s) (GLUCOPHAGE) 500 mg ORAL BID w MEALS SITagliptin phosphate 50 mg tab(s) (JANUVIA) 50 mg ORAL DAILY oxyCODONE IR 10 mg tab(s) (ROXICODONE) 10 mg ORAL q 4 H PRN oxyCODONE IR 5 mg tab(s) (ROXICODONE) 5 mg ORAL q 4 H PRN lidocaine 4 % topical cream (LMX) TOPICAL PRN apixaban 5 mg tab(s) (ELIQUIS) 5 mg ORAL BID glimepiride 2 mg tab(s) (AMARYL) 2 mg ORAL BID w MEALS cephALEXin 500 mg cap(s) (KEFLEX) 500 mg ORAL q 6 H PHYSICAL EXAM: Vital signs: BP 119/61 Pulse 102 Temp 36.6 ?C (97.9 ?F) (Oral) Resp 12 Ht 182.9 cm (6') Wt 118 kg (260 lb 2.3 oz) SpO2 97% BMI 35.28 kg/m? Temp (24hrs), Av.6 ?C (97.9 ?F), Min:36.5 ?C (97.7 ?F), Max:36.6 ?C (97.9 ?F) General: alert, oriented, NAD Lungs: bilaterally clear to auscultation Heart: regular rate and rhythm Abdomen: soft, non tender, non distended, BS+ Extremities: foot dressing No rashes No joint inflammation Neck supple Lines ok No CVAT Lines, Drains, and Airways Line Duration Implanted Vascular Access Device Single Port 06/02/24 1500 Right Chest 1 day Labs: Recent Labs 06/03/24 0628 06/02/24 0522 06/01/24 0533 WBC -- 9.97 6.26 HB -- 10.7* 10.0* PLT -- 136* 121* NA 135* 134* 135* K 4.6 4.7 4.7 CO2 28 27 30 BUN 48* 52* 48* CREAT 1.82* 2.07* 1.95* Microbiology data: reviewed Imaging data: (more content not included)... [facility] CONSULT PROG HNO ID: [id number] Author: EPI POLANCO MD Service: Nephrology Author Type: Physician Type: Consult Progress Note Filed: 06/03/2024 07:19 Note Text: NEPHROLOGY CONSULT PROGRESS NOTE Subjective INTERVAL HISTORY: The patient was seen and examined . No acute event overnight. PERTINENT ROS: GENERAL: No fever/chills. RESPIRATORY: Negative for cough, wheezing or shortness of breath. CARDIOVASCULAR: Negative for chest pain or palpitations. GI: Negative for nausea, vomiting, Diarrhea, abdominal pain. : Negative for dysuria and hematuria MEDICATIONS: Current Facility-Administered Medications Medication Dose Route Frequency acetaminophen 1,000 mg tab(s) (TYLENOL) 1,000 mg ORAL Q6H WHILE AWAKE lidocaine 4 % 1 Patch (SALONPAS) 1 Patch TRANSDERMAL DAILY AT 9 PM And lidocaine patch - REMOVE OTHER DAILY And lidocaine - VERIFY PATCH OTHER q 8 H insulin lispro injection (rapid acting) (ADMElog) SUBCUTANEOUS w MEALS insulin lispro injection (rapid acting) (ADMElog) SUBCUTANEOUS AT BEDTIME polyethylene glycol 3350 17 g packet 17 g ORAL DAILY PRN benzocaine-menthol 1 Lozenge (CEPACOL) 1 Lozenge MUCOUS MEMBRANE (TOPICAL MOUTH AND THROAT) q 2 H PRN benzonatate 100 mg cap(s) (TESSALON PERLE) 100 mg ORAL TID PRN calcium carbonate 1,000 mg chewable tab(s) (TUMS) 1,000 mg ORAL TID PRN prochlorperazine 10 mg injection (COMPAZINE) 10 mg INTRAVENOUS q 6 H PRN melatonin 3 mg tab(s) 3 mg ORAL AT BEDTIME PRN albuterol HFA 90 mcg/actuation 2 Puff (PROVENTIL HFA, VENTOLIN HFA) 2 Puff INHALATION q 4 H PRN allopurinol 100 mg tab(s) (ZYLOPRIM) 100 mg ORAL BID DULoxetine 60 mg cap(s) (CYMBALTA) 60 mg ORAL BID gabapentin 600 mg tab(s) (NEURONTIN) 600 mg ORAL TID rosuvastatin 40 mg tab(s) (CRESTOR) 40 mg ORAL DAILY sodium bicarbonate 1,300 mg tab(s) 1,300 mg ORAL BID dextrose 40 % 15 g 15 g ORAL PRN Or glucagon 1 mg injection 1 mg INTRAMUSCULAR PRN Or dextrose 10% iv bolus 12.5 g INTRAVENOUS PRN NaCl 0.9% iv flush bag 20 mL INTRAVENOUS PRN simethicone, chewable 80 mg tab(s) (MYLICON) 80 mg ORAL QID PRN dilTIAZem CD 120 mg cap(s) (CARDIZEM CD, CARTIA XT) 120 mg ORAL DAILY metoprolol tartrate (short acting) 25 mg tab(s) (LOPRESSOR) 25 mg ORAL q 12 H furosemide 40 mg tab(s) (LASIX) 40 mg ORAL DAILY ceFAZolin iv piggyback 2 g in D5W (iso-osmotic) 100 mL (ANCEF) 2 g INTRAVENOUS q 8 H glimepiride 4 mg tab(s) (AMARYL) 4 mg ORAL BID w MEALS dapagliflozin propanediol 10 mg tab(s) (FARXIGA) 10 mg ORAL DAILY WITH BREAKFAST metFORMIN 500 mg tab(s) (GLUCOPHAGE) 500 mg ORAL BID w MEALS SITagliptin phosphate 50 mg tab(s) (JANUVIA) 50 mg ORAL DAILY oxyCODONE IR 10 mg tab(s) (ROXICODONE) 10 mg ORAL q 4 H PRN oxyCODONE IR 5 mg tab(s) (ROXICODONE) 5 mg ORAL q 4 H PRN lidocaine 4 % topical cream (LMX) TOPICAL PRN apixaban 5 mg tab(s) (ELIQUIS) 5 mg ORAL BID Objective PHYSICAL EXAM: BP 106/64 Pulse 93 Temp 36.6 ?C (97.9 ?F) (Oral) Resp 12 Ht 182.9 cm (6') Wt 118 kg (260 lb 2.3 oz) SpO2 96% BMI 35.28 kg/m? Intake/Output Summary (Last 24 hours) at 06/03/2024 0717 Last data filed at 06/03/2024 0631 Gross per 24 hour Intake 2074 ml Output 1750 ml Net 324 ml GENERAL: NAD HEENT : NCAT, MMM and pink EYES: Conjunctiva -Pallor, Non icterus sclera. NECK: supple, No JVD, LUNGS: CTA without rales or wheeze, diminished breath sounds, CV: no murmurs, clicks, or gallops. ABDOMEN: soft, NT, BS normal EDEMA : no Lower extremity/ no Dependent edema DATA: Diagnostic tests reviewed for today's visit: Most recent labs and imaging results. Recent Labs 06/02/24 0522 06/01/24 0533 WBC 9.97 6.26 HB 10.7* 10.0* HCT 33.6* 31.6* PLT 136* 121* NA 134* 135* K 4.7 4.7 CHLOR 98 96* CO2 27 30 BUN 52* 48* CREAT 2.07* 1.95* GLUC 81 79 CA 8.7 9.0 Assessment/Plan 1. Chronic kidney disease Stage IIIb (baseline creatinine between 1.9 to 2.3 mg deciliter) likely in the setting of diabetic kidney disease 2. Status post fall 3. Left knee pain 4. Right foot pain, status post right great toe amputation right foot incision and drainage bone biopsies have debridement of bone right foot. 5. Type 2 diabetes 6. Hypertension 7. Atrial fibrillation 8. Coronary artery disease 9. Non-Hodgkin's lymphoma status post chemotherapy 3 years ago 10. Anemia 11. Hyperuricemia-uric acid 7.4 on 05/12/2024 12. Recent bilateral mild pelviectasis and hydroureter with concern for obstructive nephropathy and asymmetrical atrophy of left kidney Plan management -- No new labs today. Last serum creatinine remained stable at 2.07 mg/dL and near baseline. GFR 36 mL/min. BMP in process --All electrolytes and acid-base are in acceptable range. No significant acid-base disturbance. --Ultrasound atrophic left kidney with moderate left hydronephrosis similar to CT scan of 05/11/2024. Prior CT demonstrate postsurgical changes of left psoas hitch with ureter implantation. Interval resolution (more content not included)... Normal [facility] THERAPY NTon 06-03-2024 THERAPY NT HNO ID: [id number] Author: OSIRIS LIAO, PT, DPT Service: Physical Therapy Author Type: Physical Therapist Type: Therapy (PT/OT/Speech/Resp) Filed: 06/03/2024 15:43 Note Text: -------- Summary: PT tx -------- Physical Therapy Treatment Summary SERVICE DATE: 06/03/2024 SERVICE TIME: 1457 to 1510 ROOM: [place] [address] PT 6 Clicks Score: 18 DISCHARGE RECOMMENDATIONS Subacute/SNF Recommended Discharge Disposition Comments: Pt demonstrates dereased functional mobility, decreased strnegth, decreased ability to ambulate secondary to left knee pain (medial meniscus tear) and right toe pain (osteomylities) with planned amputation on right great toe for 05/30. Pt was indep prior to admission and works FT. Pt had a fall prior to admission which caused his tear in right meniscus and pt would be a good canidate for ARF at d/c following amputation and medical management in hospital setting. Recommended Discharge Disposition Due to: Functional deficits requiring ongoing therapy service prior to discharge home., Anticipated community discharge, Balance deficits, Coordination deficits, Dominant side deficits, Functional status decline, Requires multiple therapy disciplines Recommended Discharge Equipment: To Be Determined ASSESSMENT Response to Therapy Interventions: Improved Tolerance for Activity, Multiple Ongoing Medical Issues, Pain, Requires Additional Time to Complete Activities, Requires Encouragement to Complete Activities Pt tolerated mobility well along with timing for pain medications. Pt is able to demonstrate appropraite heel WB with limited ambulation distnaces per order. Pain did not limit his session. PRECAUTIONS Fall Risk, Lines/Tubes/Drains, Weight Bearing Restrictions Left Lower Extremity Weight Bearing Status: WBAT Right Lower Extremity Weight Bearing Status: NWB (Per podiatry, OK for heel WB to RLE in surgical shoe for transfers and short distances only) CURRENT HOSPITAL COURSE Patient presents to the ED with L knee pain, fall, R great toe osteomyelitis and pathological fx, MRI L knee (-) for occult fx but showing medial mensicus tear, large joint effusion with mild synovitis s/p L knee aspiration, ortho recommending no surgical intervention and WBAT LLE, S/p R great toe amputation, R foot IANDD, bone biopsy, sharp debridement bone R foot 05/30 Relevant Past Medical History: DM2 afib HTN CAD obesity non-hodgkin's lymphoma s/p chemo 3 yrs ago with chronic med port in place for difficult IV access, recent hospital stay at for R toe cellulitis/wound s/p abx/debridement and left knee swelling/pain s/p arthrocentesis; possible toe surgery this upcoming week HOME LIVING Patient Lives With: Spouse Assistance Available: 24-Hour Entry To Home: Stairs Number Of Stairs Into Home: (t) Number Of Stairs To Bed/Bath: 0 Stairs to Bed/Bath with: Unilateral Rail Tub/Shower Type: walk in Laundry: spouse Equipment Owned: Cane, Grab Bars- Shower, Grab Bars- Toilet, Shower Chair, Walker- Wheeled, Rollator PRIOR FUNCTIONAL LEVEL Required Assistance, Within Functional Limits Assistance Required With: Cleaning, Laundry, Meals Pt typically indep ro ADLs and contributes to IADLs. Used cane outside of home and ww sometimes in the home. . Sleeps on a recliner and/or couch since his chemo (more comfortable). assists setting up meds, pt reports 2 falls l ast 6 mos. Last fall as result of pulling self up from couch with RW. SUBJECTIVE Pt recieved pain medication 50 minutes before session. Would like to ambulate to the new [place] THERAPY DIAGNOSIS Reduced mobility-other, Muscle Weakness (generalized), Difficulty walking-musculoskeletal TREATMENT INTERVENTIONS Gait Training (47030), Therapeutic Activity (74254) Timed Code Treatment (minutes): 13 Skilled Treatment Time (minutes): 13 Therapeutic Activity (52506) Treatment Minutes: 2 $ Therapeutic Activity (48534) Billed Units: 0 units Gait Training (02593) Treatment Minutes: 11 $ Gait Training (75806) Billed Units: 1 unit TRAINING AND EDUCATION PROVIDED Assistive Device Use, Bed Mobility, Benefits of In-Hospital Mobility, Energy Conservation, Positioning, Precautions/Restrictions , Role of Physical Therapy, Transfers, Gait Pattern, Reduction of Deviations, Equipment THERAPEUTIC SKILLS USED Activity Dosing, Cues for Sequencing/Proper Technique for Activity, Cuing Verbal, Cuing Tactile, Movement Facilitation, Muscle Activation Facilitation, Physical Assist, Postural Alignment Correction FUNCTIONAL STATUS Bed Mobility Supine To Sit: Supervision, Additional Information from sidelying to EOB sitting Sit to Supine: Additional Information pt left in bathroom Scooting: Additional Information Transfers Sit To Stand: Contact Guard Assistance from EOB with noé (more content not included)... Normal [facility] Basic metabolic 2000 panelon 06-02-2024 Anion gap [Moles/Vol] 9 mmol/L Normal 8-15 [facility] Comment on above: Order Comment: Speci men Type: BLOOD SPECIMENOrdering Facility: [facility] Address: [address] [place] [address] Performed By: #### 2 4321-2 ####[facility]ORATORYCLIA [id number] [place] [address] [place] Calcium [Mass/Vol] 8.7 mg/dL Normal 8.5-10.2 [facility] Comment on above: Order Comment: Speci men Type: BLOOD SPECIMENOrdering Facility: [facility] Address: [address] [place] [address] Performed By: #### 2 4321-2 ####[facility]ORATORYCLIA [id number] [place] [address] [place] Chloride [Moles/Vol] 98 mmol/L Normal 98-107 [facility] Comment on above: Order Comment: Speci men Type: BLOOD SPECIMENOrdering Facility: [facility] Address: [address] [place] [address] Performed By: #### 2 4321-2 ####[facility]ORYCLIA [id number] [address] [place] CO2 [Moles/Vol] 27 mmol/L Normal 22-30 [facility] Comment on above: Order Comment: Santo men Type: BLOOD SPECIMENOrdering Facility: [facility] Address: [address] [place] [address] Performed By: #### 2 4321-2 ####[facility]ATORYCLIA [id number] [address] [place] Creatinine [Mass/Vol] 2.07 mg/dL High 0.73-1.22 [facility] Comment on above: Order Comment: Raghui men Type: BLOOD SPECIMENOrdering Facility: [facility] Address: [address] [place] [address] Performed By: #### 2 4321-2 ####[facility]ORATORYCLIA [id number] [address] Creatinine and Glomerular filtration rate.predicted panel (S/P/Bld) 36 mL/min/1.73m??? Low >=60 [facility] Comment on above: Order Comment: Raghui men Type: BLOOD SPECIMENOrdering Facility: [facility] Address: [address] [place] [address] Result Comment: Karissa mated Glomerular Filtration Rate (eGFR) is calculated using the 2020 CKD-EPI creatinine equation. This equation utilizes serum creatinine, sex, and age as parameters. The creatinine assay has traceable calibration to isotope dilution-mass spectrometry. Refer to KDIGO guidelines for clinical interpretation. In patients with unstable renal function, e.g. those with acute kidney injury, the eGFR may not accurately reflect actual GFR. Performed By: #### 2 4321-2 ####[facility]ORATORYCLIA [id number] [place] [id number] [place] Glucose [Mass/Vol] 81 mg/dL Normal 74-99 [facility] Comment on above: Order Comment: Santo king Type: BLOOD SPECIMENOrdering Facility: [facility] Address: [address] [place] [address] Result Comment: The [place] Diabetes Association (ADA) provides guidance for cutoff values for fasting glucose and random glucose. The ADA defines fasting as no caloric intake for at least 8 hours. Fasting plasma glucose results between 100 to 125 mg/dL indicate increased risk for diabetes (prediabetes). Fasting plasma glucose results greater than or equal to 126 mg/dL meet the criteria for diagnosis of diabetes. In the absence of unequivocal hyperglycemia, results should be confirmed by repeat testing. In a patient with classic symptoms of hyperglycemia or hyperglycemic crisis, random plasma glucose results greater than or equal to 200 mg/dL meet the criteria for diagnosis of diabetes. Reference: Standards of Medical Care in Diabetes 2016, [place] [employer]. Diabetes Care. 2016.39(Suppl 1). Performed By: #### 2 4321-2 ####[facility]ATORYCLIA [id number] [place] [address] [place] Potassium [Moles/Vol] 4.7 mmol/L Normal 3.7-5.1 [facility] Comment on above: Order Comment: Santo malik Type: BLOOD SPECIMENOrdering Facility: [facility] Address: [address] [place] [address] Performed By: #### 2 4321-2 ####[facility]ORATORYCLIA [id number] [place] [address] [place] Sodium [Moles/Vol] 134 mmol/L Low 136-144 [facility] Comment on above: Order Comment: Santo malik Type: BLOOD SPECIMENOrdering Facility: [facility] Address: [address] [place] [address] Performed By: #### 2 4321-2 ####[facility]ORATORYCLIA [id number] [place] [address] [place] Urea nitrogen [Mass/Vol] 52 mg/dL High 9-24 [facility] Comment on above: Order Comment: Santo malik Type: BLOOD SPECIMENOrdering Facility: [facility] Address: [address] [place] [address] Performed By: #### 2 4321-2 ####[facility]ORATORYCLIA [id number] [place] [address] [place] CBC panel Auto (Bld)on 06-02 Erythrocyte distribution width (RBC) [Ratio] 14.6 % Normal 11.5-15.0 [facility] Comment on above: Order Comment: Speci men Type: BLOOD SPECIMENOrdering Facility: [facility] Address: [address] [place] [address] Performed By: #### 5 8410-2 ####[facility] LABORATORYCLIA [id number] [address] OF [facility] Hematocrit (Bld) [Volume fraction] 33.6 % Low 39.0-51.0 [facility] Comment on above: Order Comment: Speci men Type: BLOOD SPECIMENOrdering Facility: [facility] Address: [address] [place] [address] Performed By: #### 5 8410-2 ####[facility]ORATORYCLIA [id number] [address] [place] Hemoglobin (Bld) [Mass/Vol] 10.7 g/dL Low 13.0-17.0 [facility] Comment on above: Order Comment: Speci men Type: BLOOD SPECIMENOrdering Facility: [facility] Address: [address] [place] [address] Performed By: #### 5 8410-2 ####[facility]ORATORYCLIA [id number] [address] MCH (RBC) [Entitic mass] 26.2 pg Normal 26.0-34.0 [facility] Comment on above: Order Comment: Speci men Type: BLOOD SPECIMENOrdering Facility: [facility] Address: [address] [place] [address] Performed By: #### 5 8410-2 ####[facility]ATORYCLIA [id number] [address] OF [place] MCHC (RBC) [Mass/Vol] 31.8 g/dL Normal 30.5-36.0 [facility] Comment on above: Order Comment: Speci men Type: BLOOD SPECIMENOrdering Facility: [facility] Address: [address] [place] [address] Performed By: #### 5 8410-2 ####[facility]ORATORYCLIA [id number] [address] MCV (RBC) [Entitic vol] 82.2 fL Normal 80.0-100.0 [facility] Comment on above: Order Comment: Speci men Type: BLOOD SPECIMENOrdering Facility: [facility] Address: [address] [place] [address] Performed By: #### 5 8410-2 ####[facility] LABORATORYCLIA [id number] [address] [place] Nucleated RBC (Bld) [#/Vol] 10*3/uL Normal <0.01 [facility] Comment on above: Order Comment: Speci men Type: BLOOD SPECIMENOrdering Facility: [facility] Address: [address] [place] [address] Performed By: #### 5 8410-2 ####[facility]ORATORYCLIA [id number] [address] Platelet mean volume (Bld) [Entitic vol] 9.9 fL Normal 9.0-12.7 [facility] Comment on above: Order Comment: Speci men Type: BLOOD SPECIMENOrdering Facility: [facility] Address: [address] [place] [address] Performed By: #### 5 8410-2 ####[facility]ORATORYCLIA [id number] [address] [place] Platelets (Bld) [#/Vol] 136 10*3/uL Low 150-400 [facility] Comment on above: Order Comment: Speci men Type: BLOOD SPECIMENOrdering Facility: [facility] Address: [address] [place] [address] Performed By: #### 5 8410-2 ####[facility] LABORATORYCLIA [id number] [place] [address] [place] RBC (Bld) [#/Vol] 4.09 10*6/uL Low 4.20-6.00 [facility] Comment on above: Order Comment: Speci men Type: BLOOD SPECIMENOrdering Facility: [facility] Address: [address] [place] [address] Performed By: #### 5 8410-2 ####[facility] LABORATORYCLIA [id number] [place] [address] [place] WBC (Bld) [#/Vol] 9.97 10*3/uL Normal 3.70-11.00 [facility] Comment on above: Order Comment: Speci men Type: BLOOD SPECIMENOrdering Facility: [facility] Address: [address] [place] [address] [place] [address] Performed By: #### 5 8410-2 ####[facility]ORATORYCLIA [id number] [place] [id number] [place] CONSULT PROGon 06-02-2024 CONSULT PROG HNO ID: [id number] Author: AMRIT DEL VALLE MD Service: Infectious Disease Author Type: Physician Type: Consult Progress Note Filed: 06/02/2024 11:18 Note Text: INFECTIOUS DISEASE PROGRESS NOTE Patient Name: Yamilka Sharma INTERVAL HISTORY: Still w Knee pain and swelling is a bit better. No new complaints. Feels better. Leucocytosis resolved Patient Active Hospital Problem List: Osteomyelitis of great toe of right foot (HCC) (05/29/2024) Type 2 diabetes mellitus with diabetic nephropathy, without long-term current use of insulin (HCC) (07/21/2017) Coronary artery disease involving [place] coronary artery of [place] heart without angina pectoris (11/01/2021) Hyperlipidemia, mixed (05/02/2022) Paroxysmal atrial fibrillation (HCC) (01/10/2023) Acute pain of left knee (05/13/2024) Acute medial meniscus tear (05/25/2024) Essential hypertension (05/26/2024) Simple chronic bronchitis (HCC) (05/26/2024) Stage 3b chronic kidney disease (HCC) (05/26/2024) Class 2 obesity due to excess calories with body mass index (BMI) of 35.0 to 35.9 in adult (05/27/2024) H/O insertion of central venous access port (05/29/2024) Hemarthrosis involving knee joint, left (05/30/2024) Physical debility (05/30/2024) Depression (05/30/2024) ASSESSMENT: Knee pain Possible early OM of foot, Cx w Strep group C, plus rare SCN, likely colonizer Essential hypertension Type 2 diabetes mellitus Simple chronic bronchitis Atrial fibrillation Stage 3b chronic kidney disease PLAN: OK to discharge on PO Augmentin till 06/06 Left knee corticosteroid injection contraindicated at this time due to active infection of right foot with plans for amputation of right great toe 2/2 osteomyelitis with podiatry on 05/30/24. Left knee aspiration performed for therapeutic purposes. Synovial fluid results rev and has 18K WBC w 63% N, cultures are negative. Doubt septic arthritis MEDICATIONS: reviewed. Current Facility-Administered Medications Medication Dose Route Frequency acetaminophen 1,000 mg tab(s) (TYLENOL) 1,000 mg ORAL Q6H WHILE AWAKE lidocaine 4 % 1 Patch (SALONPAS) 1 Patch TRANSDERMAL DAILY AT 9 PM And lidocaine patch - REMOVE OTHER DAILY And lidocaine - VERIFY PATCH OTHER q 8 H insulin lispro injection (rapid acting) (ADMElog) SUBCUTANEOUS w MEALS insulin lispro injection (rapid acting) (ADMElog) SUBCUTANEOUS AT BEDTIME polyethylene glycol 3350 17 g packet 17 g ORAL DAILY PRN benzocaine-menthol 1 Lozenge (CEPACOL) 1 Lozenge MUCOUS MEMBRANE (TOPICAL MOUTH AND THROAT) q 2 H PRN benzonatate 100 mg cap(s) (TESSALON PERLE) 100 mg ORAL TID PRN calcium carbonate 1,000 mg chewable tab(s) (TUMS) 1,000 mg ORAL TID PRN prochlorperazine 10 mg injection (COMPAZINE) 10 mg INTRAVENOUS q 6 H PRN melatonin 3 mg tab(s) 3 mg ORAL AT BEDTIME PRN albuterol HFA 90 mcg/actuation 2 Puff (PROVENTIL HFA, VENTOLIN HFA) 2 Puff INHALATION q 4 H PRN allopurinol 100 mg tab(s) (ZYLOPRIM) 100 mg ORAL BID DULoxetine 60 mg cap(s) (CYMBALTA) 60 mg ORAL BID gabapentin 600 mg tab(s) (NEURONTIN) 600 mg ORAL TID rosuvastatin 40 mg tab(s) (CRESTOR) 40 mg ORAL DAILY sodium bicarbonate 1,300 mg tab(s) 1,300 mg ORAL BID dextrose 40 % 15 g 15 g ORAL PRN Or glucagon 1 mg injection 1 mg INTRAMUSCULAR PRN Or dextrose 10% iv bolus 12.5 g INTRAVENOUS PRN NaCl 0.9% iv flush bag 20 mL INTRAVENOUS PRN simethicone, chewable 80 mg tab(s) (MYLICON) 80 mg ORAL QID PRN dilTIAZem CD 120 mg cap(s) (CARDIZEM CD, CARTIA XT) 120 mg ORAL DAILY metoprolol tartrate (short acting) 25 mg tab(s) (LOPRESSOR) 25 mg ORAL q 12 H furosemide 40 mg tab(s) (LASIX) 40 mg ORAL DAILY ceFAZolin iv piggyback 2 g in D5W (iso-osmotic) 100 mL (ANCEF) 2 g INTRAVENOUS q 8 H glimepiride 4 mg tab(s) (AMARYL) 4 mg ORAL BID w MEALS dapagliflozin propanediol 10 mg tab(s) (FARXIGA) 10 mg ORAL DAILY WITH BREAKFAST metFORMIN 500 mg tab(s) (GLUCOPHAGE) 500 mg ORAL BID w MEALS SITagliptin phosphate 50 mg tab(s) (JANUVIA) 50 mg ORAL DAILY oxyCODONE IR 10 mg tab(s) (ROXICODONE) 10 mg ORAL q 4 H PRN oxyCODONE IR 5 mg tab(s) (ROXICODONE) 5 mg ORAL q 4 H PRN PHYSICAL EXAM: Vital signs: BP 97/64 Pulse 100 Temp 36.6 ?C (97.9 ?F) (Oral) Resp 20 Ht 182.9 cm (6') Wt 118 kg (260 lb 2.3 oz) SpO2 96% BMI 35.28 kg/m? Temp (24hrs), Av.6 ?C (97.9 ?F), Min:36.5 ?C (97.7 ?F), Max:36.6 ?C (97.9 ?F) General: alert, oriented, NAD Lungs: bilaterally clear to auscultation Heart: regular rate and rhythm Abdomen: soft, non tender, non distended, BS+ Extremities: foot dressing No rashes No joint inflammation Neck supple Lines ok No CVAT Lines, Drains, and Airways Line Duration Implanted Vascular Access Device Double Port 05/25/24 Right Chest 8 days Labs: Recent Labs 06/02/24 0522 06/01/24 0533 05/31/24 0601 WBC 9.97 6.26 7.16 HB 10.7* 10.0* 10.3* PLT 136* 121* 119* NA 134* 135* 134* K 4.7 4.7 4.8 CO2 27 30 26 BUN 52* 48* 51* CREAT 2.07* 1 (more content not included)... Normal [facility] CONSULT PROG HNO ID: [id number] Author: EPI POLANCO MD Service: Nephrology Author Type: Physician Type: Consult Progress Note Filed: 06/02/2024 09:31 Note Text: NEPHROLOGY CONSULT PROGRESS NOTE Subjective INTERVAL HISTORY: The patient was seen and examined . No acute event overnight. PERTINENT ROS: GENERAL: No fever/chills. RESPIRATORY: Negative for cough, wheezing or shortness of breath. CARDIOVASCULAR: Negative for chest pain or palpitations. GI: Negative for nausea, vomiting, Diarrhea, abdominal pain. : Negative for dysuria and hematuria MEDICATIONS: Current Facility-Administered Medications Medication Dose Route Frequency acetaminophen 1,000 mg tab(s) (TYLENOL) 1,000 mg ORAL Q6H WHILE AWAKE lidocaine 4 % 1 Patch (SALONPAS) 1 Patch TRANSDERMAL DAILY AT 9 PM And lidocaine patch - REMOVE OTHER DAILY And lidocaine - VERIFY PATCH OTHER q 8 H insulin lispro injection (rapid acting) (ADMElog) SUBCUTANEOUS w MEALS insulin lispro injection (rapid acting) (ADMElog) SUBCUTANEOUS AT BEDTIME polyethylene glycol 3350 17 g packet 17 g ORAL DAILY PRN benzocaine-menthol 1 Lozenge (CEPACOL) 1 Lozenge MUCOUS MEMBRANE (TOPICAL MOUTH AND THROAT) q 2 H PRN benzonatate 100 mg cap(s) (TESSALON PERLE) 100 mg ORAL TID PRN calcium carbonate 1,000 mg chewable tab(s) (TUMS) 1,000 mg ORAL TID PRN prochlorperazine 10 mg injection (COMPAZINE) 10 mg INTRAVENOUS q 6 H PRN melatonin 3 mg tab(s) 3 mg ORAL AT BEDTIME PRN albuterol HFA 90 mcg/actuation 2 Puff (PROVENTIL HFA, VENTOLIN HFA) 2 Puff INHALATION q 4 H PRN allopurinol 100 mg tab(s) (ZYLOPRIM) 100 mg ORAL BID DULoxetine 60 mg cap(s) (CYMBALTA) 60 mg ORAL BID gabapentin 600 mg tab(s) (NEURONTIN) 600 mg ORAL TID rosuvastatin 40 mg tab(s) (CRESTOR) 40 mg ORAL DAILY sodium bicarbonate 1,300 mg tab(s) 1,300 mg ORAL BID dextrose 40 % 15 g 15 g ORAL PRN Or glucagon 1 mg injection 1 mg INTRAMUSCULAR PRN Or dextrose 10% iv bolus 12.5 g INTRAVENOUS PRN NaCl 0.9% iv flush bag 20 mL INTRAVENOUS PRN simethicone, chewable 80 mg tab(s) (MYLICON) 80 mg ORAL QID PRN dilTIAZem CD 120 mg cap(s) (CARDIZEM CD, CARTIA XT) 120 mg ORAL DAILY metoprolol tartrate (short acting) 25 mg tab(s) (LOPRESSOR) 25 mg ORAL q 12 H furosemide 40 mg tab(s) (LASIX) 40 mg ORAL DAILY ceFAZolin iv piggyback 2 g in D5W (iso-osmotic) 100 mL (ANCEF) 2 g INTRAVENOUS q 8 H glimepiride 4 mg tab(s) (AMARYL) 4 mg ORAL BID w MEALS dapagliflozin propanediol 10 mg tab(s) (FARXIGA) 10 mg ORAL DAILY WITH BREAKFAST metFORMIN 500 mg tab(s) (GLUCOPHAGE) 500 mg ORAL BID w MEALS SITagliptin phosphate 50 mg tab(s) (JANUVIA) 50 mg ORAL DAILY oxyCODONE IR 10 mg tab(s) (ROXICODONE) 10 mg ORAL q 4 H PRN oxyCODONE IR 5 mg tab(s) (ROXICODONE) 5 mg ORAL q 4 H PRN Objective PHYSICAL EXAM: BP 97/64 Pulse 100 Temp 36.6 ?C (97.9 ?F) (Oral) Resp 20 Ht 182.9 cm (6') Wt 118 kg (260 lb 2.3 oz) SpO2 96% BMI 35.28 kg/m? Intake/Output Summary (Last 24 hours) at 06/02/2024 0931 Last data filed at 06/01/2024 1725 Gross per 24 hour Intake 790 ml Output 875 ml Net -85 ml GENERAL: NAD HEENT : NCAT, MMM and pink EYES: Conjunctiva -Pallor, Non icterus sclera. NECK: supple, No JVD, LUNGS: CTA without rales or wheeze, diminished breath sounds, CV: no murmurs, clicks, or gallops. ABDOMEN: soft, NT, BS normal EDEMA : no Lower extremity/ no Dependent edema DATA: Diagnostic tests reviewed for today's visit: Most recent labs and imaging results. Recent Labs 06/02/24 0522 06/01/24 0533 05/31/24 0601 WBC 9.97 6.26 7.16 HB 10.7* 10.0* 10.3* HCT 33.6* 31.6* 32.5* PLT 136* 121* 119* NA 134* 135* 134* K 4.7 4.7 4.8 CHLOR 98 96* 100 CO2 27 30 26 BUN 52* 48* 51* CREAT 2.07* 1.95* 1.91* GLUC 81 79 121* CA 8.7 9.0 8.9 Assessment/Plan 1. Chronic kidney disease Stage IIIb (baseline creatinine between 1.9 to 2.3 mg deciliter) likely in the setting of diabetic kidney disease 2. Status post fall 3. Left knee pain 4. Right foot pain, status post right great toe amputation right foot incision and drainage bone biopsies have debridement of bone right foot. 5. Type 2 diabetes 6. Hypertension 7. Atrial fibrillation 8. Coronary artery disease 9. Non-Hodgkin's lymphoma status post chemotherapy 3 years ago 10. Anemia 11. Hyperuricemia-uric acid 7.4 on 05/12/2024 12. Recent bilateral mild pelviectasis and hydroureter with concern for obstructive nephropathy and asymmetrical atrophy of left kidney Plan management --Serum creatinine remained stable at 2.07 mg/dL and near baseline. GFR 36 mL/min --All electrolytes and acid-base are in acceptable range. No significant acid-base disturbance. --Ultrasound atrophic left kidney with moderate left hydronephrosis similar to CT scan of 05/11/2024. Prior CT demonstrate postsurgical changes of left psoas hitch with ureter implantation. Interval resolution of right hydronephrosis. Distended urinary bladder with debris (more content not included)... Normal [facility] NUTRITIONon 06-02-2024 NUTRITION HNO ID: [id number] Author: CHERELLE STANLEY RD Service: Nutrition Therapy Author Type: Registered Dietitian Type: Nutrition Filed: 06/02/2024 07:24 Note Text: NUTRITION THERAPY SCREEN NOTE SERVICE DATE: 06/02/2024 SERVICE TIME: 7:20 AM Care Plan: Continue current diet Monitor and Evaluation: Meet greater than 75% of estimated needs Physician progress notes and labs reviewed. Intake History: Current Nutrition Intake: Greater than 75% estimated energy needs Current Intake Over time: Greater than or equal to 7 days LOS/D7 Diet Orders (From admission, onward) Start Ordered 05/30/24 1500 Diet Carbohydrate Controlled START NOW Question: Carbohydrate Control Answer: CONSISTENT CARBOHYDRATE 05/30/24 9804 Anthropometrics: Height: 182.9 cm (6') Weight: 118 kg (260 lb 2.3 oz) Usual Weight: 126.1 kg (278 lb) 03/04/24.12/16/23 280lbs. 05/12/24 260/272 lbs. 04/19/24 266 lbs Usual Weight Obtained From: Chart Review Weight change percentage over time: 6.4% x 3 months, 7% x 6 months Weight Change: Potentially clinically signficant but does not meet criteria to support malnutrition diagnosis MNT Billing: $ Initial Assessment: 1-15 minutes SIGNATURE: Cherelle Stanley RD PATIENT NAME: Yamilka Sharma DATE: June 02, 2024 TIME: 7:23 AM [facility] THERAPY NTon 06-02-2024 THERAPY NT HNO ID: [id number] Author: MARLA LOPEZ PT Service: Physical Therapy Author Type: Physical Therapist Type: Therapy (PT/OT/Speech/Resp) Filed: 06/02/2024 11:35 Note Text: -------- Summary: PT Treatment -------- Physical Therapy Treatment Summary SERVICE DATE: 06/02/2024 SERVICE TIME: 1058 to 1115 ROOM: [id number] PT 6 Clicks Score: 20 DISCHARGE RECOMMENDATIONS Subacute/SNF Recommended Discharge Disposition Comments: Pt is currently performing all functional mobility below PLOF and requires continued skilled PT to maximize tolerance to mobility, return to PLOF and reduce risk of falls and rehospitalization. Recommended Discharge Disposition Due to: Functional deficits requiring ongoing therapy service prior to discharge home., Anticipated community discharge, Balance deficits, Coordination deficits, Dominant side deficits, Functional status decline, Requires multiple therapy disciplines Recommended Discharge Equipment: To Be Determined ASSESSMENT Response to Therapy Interventions: Improved Tolerance for Activity, Low Activity Tolerance, Multiple Ongoing Medical Issues, Pain, Requires Additional Time to Complete Activities, Requires Encouragement to Complete Activities Pt progressing with tolerance to ambulation distance, questionable full compliance with heel only WB however pt reporting accurately following post education and review. Reciprocal stepping throughout with mild instability in standing. Pt unable to safely mobilize independently in home at this time. PRECAUTIONS Fall Risk, Lines/Tubes/Drains, Weight Bearing Restrictions Left Lower Extremity Weight Bearing Status: WBAT Right Lower Extremity Weight Bearing Status: NWB (Per podiatry, OK for heel WB to RLE in surgical shoe for transfers and short distances only) CURRENT HOSPITAL COURSE Patient presents to the ED with L knee pain, fall, R great toe osteomyelitis and pathological fx, MRI L knee (-) for occult fx but showing medial mensicus tear, large joint effusion with mild synovitis s/p L knee aspiration, ortho recommending no surgical intervention and WBAT LLE, S/p R great toe amputation, R foot IANDD, bone biopsy, sharp debridement bone R foot 05/30 Relevant Past Medical History: DM2 afib HTN CAD obesity non-hodgkin's lymphoma s/p chemo 3 yrs ago with chronic med port in place for difficult IV access, recent hospital stay at for R toe cellulitis/wound s/p abx/debridement and left knee swelling/pain s/p arthrocentesis; possible toe surgery this upcoming week HOME LIVING Patient Lives With: Spouse Assistance Available: 24-Hour Entry To Home: Stairs Number Of Stairs Into Home: (t) Number Of Stairs To Bed/Bath: 0 Stairs to Bed/Bath with: Unilateral Rail Tub/Shower Type: walk in Laundry: spouse Equipment Owned: Cane, Grab Bars- Shower, Grab Bars- Toilet, Shower Chair, Walker- Wheeled, Rollator PRIOR FUNCTIONAL LEVEL Required Assistance, Within Functional Limits Assistance Required With: Cleaning, Laundry, Meals Pt typically indep ro ADLs and contributes to IADLs. Used cane outside of home and ww sometimes in the home. . Sleeps on a recliner and/or couch since his chemo (more comfortable). assists setting up meds, pt reports 2 falls l ast 6 mos. Last fall as result of pulling self up from couch with RW. SUBJECTIVE Pt pleasant and agreeable to PT, reporting urge to void. THERAPY DIAGNOSIS Reduced mobility-other, Decreased activities of daily living (ADL), Muscle Weakness (generalized), Difficulty walking-musculoskeletal TREATMENT INTERVENTIONS Therapeutic Activity (67325), Gait Training (51034), Therapeutic Exercise (02108) Timed Code Treatment (minutes): 17 Skilled Treatment Time (minutes): 17 Therapeutic Exercise (73417) Treatment Minutes: 2 $ Therapeutic Exercise (23505) Billed Units: 0 units Therapeutic Activity (24106) Treatment Minutes: 6 $ Therapeutic Activity (82639) Billed Units: 0 units Gait Training (40315) Treatment Minutes: 9 $ Gait Training (44341) Billed Units: 1 unit Exercise Exercise: instructed in glute sets, quad sets and ankle pumps to be completed 10 reps x 3x/day for progressive strengthening, pt agreeable TRAINING AND EDUCATION PROVIDED Assistive Device Use, Bed Mobility, Benefits of In-Hospital Mobility, Discharge Planning, Energy Conservation, Expected Functional Level, Exercise Program, Falls Prevention, Positioning, Precautions/Restrictions , Role of Physical Therapy, Transfers, Treatment Protocol THERAPEUTIC SKILLS USED Activity Dosing, Cues for Sequencing/Proper Technique for Activity, Cuing Verbal, Cuing Tactile, Movement Facilitation, Muscle Activation Facilitation, Physical Assist, Postural Alignment Correction FUNCTIONAL STATUS Bed Mobility Supine To Sit: Additional Information (more content not included)... [facility] THERAPY NT HNO ID: [id number] Author: MARLA LOPEZ, PT Service: Physical Therapy Author Type: Physical Therapist Type: Therapy (PT/OT/Speech/Resp) Filed: 06/02/2024 08:50 Note Text: -------- Summary: PT MV -------- PHYSICAL THERAPY MISSED VISIT SERVICE DATE: 06/02/2024 SERVICE TIME: 0849 ROOM: [place] [address] Patient not seen due to Clinical Appropriateness (BS 50 per primary nurse, pt not due for pain medication yet, requesting visit later this morning). SIGNATURE: Marla Lopez PT PATIENT NAME: Yamilka Sharma DATE: June 02, 2024 TIME: 8:50 AM Normal [facility] Basic metabolic 2000 panelon 06-01-2024 Anion gap [Moles/Vol] 9 mmol/L Normal 8-15 [facility] Comment on above: Order Comment: Santo malik Type: BLOOD SPECIMENOrdering Facility: [facility] Address: [address] [place] [address] Performed By: #### 2 4321-2 ####[facility]ORATORYCLIA [id number] [place] [address] [place] [facility] Calcium [Mass/Vol] 9.0 mg/dL Normal 8.5-10.2 [facility] Comment on above: Order Comment: Santo malik Type: BLOOD SPECIMENOrdering Facility: [facility] Address: [address] [place] [address] Performed By: #### 2 4321-2 ####[facility] LABORATORYCLIA [id number] [place] [address] [place] Chloride [Moles/Vol] 96 mmol/L Low 98-107 [facility] Comment on above: Order Comment: Santo malik Type: BLOOD SPECIMENOrdering Facility: [facility] Address: [address] [place] [address] Performed By: #### 2 4321-2 ####[facility]ORATORYCLIA [id number] [address] [place] CO2 [Moles/Vol] 30 mmol/L Normal 22-30 [facility] Comment on above: Order Comment: Santo king Type: BLOOD SPECIMENOrdering Facility: [facility] Address: [address] [place] [address] Performed By: #### 2 4321-2 ####[facility]ORYCLIA [id number] [address] [place] Creatinine [Mass/Vol] 1.95 mg/dL High 0.73-1.22 [facility] Comment on above: Order Comment: Santo king Type: BLOOD SPECIMENOrdering Facility: [facility] Address: [address] [place] [address] Performed By: #### 2 4321-2 ####[facility]ORATORYCLIA [id number] [address] Creatinine and Glomerular filtration rate.predicted panel (S/P/Bld) 39 mL/min/1.73m??? Low >=60 [facility] Comment on above: Order Comment: Santo malik Type: BLOOD SPECIMENOrdering Facility: [facility] Address: [address] [place] [address] Result Comment: Karissa mated Glomerular Filtration Rate (eGFR) is calculated using the 2020 CKD-EPI creatinine equation. This equation utilizes serum creatinine, sex, and age as parameters. The creatinine assay has traceable calibration to isotope dilution-mass spectrometry. Refer to KDIGO guidelines for clinical interpretation. In patients with unstable renal function, e.g. those with acute kidney injury, the eGFR may not accurately reflect actual GFR. Performed By: #### 2 4321-2 ####[facility]ATORYCLIA [id number] [address] Glucose [Mass/Vol] 79 mg/dL Normal 74-99 [facility] Comment on above: Order Comment: Santo malik Type: BLOOD SPECIMENOrdering Facility: [facility] Address: [address] [place] [address] Result Comment: The [place] Diabetes Association (ADA) provides guidance for cutoff values for fasting glucose and random glucose. The ADA defines fasting as no caloric intake for at least 8 hours. Fasting plasma glucose results between 100 to 125 mg/dL indicate increased risk for diabetes (prediabetes). Fasting plasma glucose results greater than or equal to 126 mg/dL meet the criteria for diagnosis of diabetes. In the absence of unequivocal hyperglycemia, results should be confirmed by repeat testing. In a patient with classic symptoms of hyperglycemia or hyperglycemic crisis, random plasma glucose results greater than or equal to 200 mg/dL meet the criteria for diagnosis of diabetes. Reference: Standards of Medical Care in Diabetes 2016, [place] [employer]. Diabetes Care. 2016.39(Suppl 1). Performed By: #### 2 4321-2 ####[facility]ATORYCLIA [id number] [address] [place] [facility] Potassium [Moles/Vol] 4.7 mmol/L Normal 3.7-5.1 [facility] Comment on above: Order Comment: Santo malik Type: BLOOD SPECIMENOrdering Facility: [facility] Address: [address] [place] [address] Performed By: #### 2 4321-2 ####[facility] LABORATORYCLIA [id number] [address] STATES [facility] Sodium [Moles/Vol] 135 mmol/L Low 136-144 [facility] Comment on above: Order Comment: Santo malik Type: BLOOD SPECIMENOrdering Facility: [facility] Address: [address] [place] [address] Performed By: #### 2 4321-2 ####[facility] LABORATORYCLIA [id number] [address] STATES [facility] Urea nitrogen [Mass/Vol] 48 mg/dL High 9-24 [facility] Comment on above: Order Comment: Raghui men Type: BLOOD SPECIMENOrdering Facility: [facility] Address: [address] [place] [address] Performed By: #### 2 4321-2 ####[facility] LABORATORYCLIA [id number] [address] [place] CBC panel Auto (Bld)on 06-01 Erythrocyte distribution width (RBC) [Ratio] 14.6 % Normal 11.5-15.0 [facility] Comment on above: Order Comment: Raghui men Type: BLOOD SPECIMENOrdering Facility: [facility] Address: [address] [place] [address] Performed By: #### 5 8410-2 ####[facility] LABORATORYCLIA [id number] [address] Hematocrit (Bld) [Volume fraction] 31.6 % Low 39.0-51.0 [facility] Comment on above: Order Comment: Speci men Type: BLOOD SPECIMENOrdering Facility: [facility] Address: [address] [place] [address] Performed By: #### 5 8410-2 ####[facility]ATORYCLIA [id number] [address] Hemoglobin (Bld) [Mass/Vol] 10.0 g/dL Low 13.0-17.0 [facility] Comment on above: Order Comment: Speci men Type: BLOOD SPECIMENOrdering Facility: [facility] Address: [address] [place] [address] Performed By: #### 5 8410-2 ####[facility]ORATORYCLIA [id number] [address] MCH (RBC) [Entitic mass] 25.8 pg Low 26.0-34.0 [facility] Comment on above: Order Comment: Speci men Type: BLOOD SPECIMENOrdering Facility: [facility] Address: [address] [place] [address] Performed By: #### 5 8410-2 ####[facility]ORATORYCLIA [id number] [address] [place] MCHC (RBC) [Mass/Vol] 31.6 g/dL Normal 30.5-36.0 [facility] Comment on above: Order Comment: Speci men Type: BLOOD SPECIMENOrdering Facility: [facility] Address: [address] [place] [address] Performed By: #### 5 8410-2 ####[facility]ORATORYCLIA [id number] [address] MCV (RBC) [Entitic vol] 81.4 fL Normal 80.0-100.0 [facility] Comment on above: Order Comment: Speci men Type: BLOOD SPECIMENOrdering Facility: [facility] Address: [address] [place] [address] Performed By: #### 5 8410-2 ####[facility] LABORATORYCLIA [id number] [place] [address] [place] Nucleated RBC (Bld) [#/Vol] 10*3/uL Normal <0.01 [facility] Comment on above: Order Comment: Speci men Type: BLOOD SPECIMENOrdering Facility: [facility] Address: [address] [place] [address] Performed By: #### 5 8410-2 ####[facility] LABORATORYCLIA [id number] [place] [address] [place] Platelet mean volume (Bld) [Entitic vol] 11.0 fL Normal 9.0-12.7 [facility] Comment on above: Order Comment: Speci men Type: BLOOD SPECIMENOrdering Facility: [facility] Address: [address] [place] [address] Performed By: #### 5 8410-2 ####[facility] LABORATORYCLIA [id number] [place] [address] [place] Platelets (Bld) [#/Vol] 121 10*3/uL Low 150-400 [facility] Comment on above: Order Comment: Speci men Type: BLOOD SPECIMENOrdering Facility: [facility] Address: [address] [place] [address] Performed By: #### 5 8410-2 ####[facility] LABORATORYCLIA [id number] [place] [address] [place] RBC (Bld) [#/Vol] 3.88 10*6/uL Low 4.20-6.00 [facility] Comment on above: Order Comment: Speci men Type: BLOOD SPECIMENOrdering Facility: [facility] Address: [address] [place] [address] Performed By: #### 5 8410-2 ####[facility] LABORATORYCLIA [id number] [place] [address] [place] WBC (Bld) [#/Vol] 6.26 10*3/uL Normal 3.70-11.00 [facility] Comment on above: Order Comment: Speci men Type: BLOOD SPECIMENOrdering Facility: [facility] Address: [address] [place] [id number] Performed By: #### 5 8410-2 ####[facility] LABORATORYCLIA [id number] [place], [place] [id number] [place] [address] [place] CONSULT PROGon 06-01-2024 CONSULT PROG HNO ID: [id number] Author: AMRIT DEL VALLE MD Service: Infectious Disease Author Type: Physician Type: Consult Progress Note Filed: 06/01/2024 09:36 Note Text: INFECTIOUS DISEASE PROGRESS NOTE Patient Name: Yamilka Sharma INTERVAL HISTORY: Knee pain and swelling is a bit better. No new complaints. Feels better. Leucocytosis resolved Patient Active Hospital Problem List: Osteomyelitis of great toe of right foot (HCC) (05/29/2024) Type 2 diabetes mellitus with diabetic nephropathy, without long-term current use of insulin (HCC) (07/21/2017) Coronary artery disease involving [place] coronary artery of [place] heart without angina pectoris (11/01/2021) Hyperlipidemia, mixed (05/02/2022) Paroxysmal atrial fibrillation (HCC) (01/10/2023) Acute pain of left knee (05/13/2024) Acute medial meniscus tear (05/25/2024) Essential hypertension (05/26/2024) Simple chronic bronchitis (HCC) (05/26/2024) Stage 3b chronic kidney disease (HCC) (05/26/2024) Class 2 obesity due to excess calories with body mass index (BMI) of 35.0 to 35.9 in adult (05/27/2024) H/O insertion of central venous access port (05/29/2024) Hemarthrosis involving knee joint, left (05/30/2024) Physical debility (05/30/2024) Depression (05/30/2024) ASSESSMENT: Knee pain Possible early OM of foot, Cx w Strep group C, plus rare SCN, likely colonizer Essential hypertension Type 2 diabetes mellitus Simple chronic bronchitis Atrial fibrillation Stage 3b chronic kidney disease PLAN: OK to discharge on PO Augmentin till 06/06 Left knee corticosteroid injection contraindicated at this time due to active infection of right foot with plans for amputation of right great toe 2/2 osteomyelitis with podiatry on 05/30/24. Left knee aspiration performed for therapeutic purposes. Synovial fluid results rev and has 18K WBC w 63% N, cultures are negative. Doubt septic arthritis MEDICATIONS: reviewed. Current Facility-Administered Medications Medication Dose Route Frequency acetaminophen 1,000 mg tab(s) (TYLENOL) 1,000 mg ORAL Q6H WHILE AWAKE lidocaine 4 % 1 Patch (SALONPAS) 1 Patch TRANSDERMAL DAILY AT 9 PM And lidocaine patch - REMOVE OTHER DAILY And lidocaine - VERIFY PATCH OTHER q 8 H insulin lispro injection (rapid acting) (ADMElog) SUBCUTANEOUS w MEALS insulin lispro injection (rapid acting) (ADMElog) SUBCUTANEOUS AT BEDTIME polyethylene glycol 3350 17 g packet 17 g ORAL DAILY PRN benzocaine-menthol 1 Lozenge (CEPACOL) 1 Lozenge MUCOUS MEMBRANE (TOPICAL MOUTH AND THROAT) q 2 H PRN benzonatate 100 mg cap(s) (TESSALON PERLE) 100 mg ORAL TID PRN calcium carbonate 1,000 mg chewable tab(s) (TUMS) 1,000 mg ORAL TID PRN prochlorperazine 10 mg injection (COMPAZINE) 10 mg INTRAVENOUS q 6 H PRN melatonin 3 mg tab(s) 3 mg ORAL AT BEDTIME PRN albuterol HFA 90 mcg/actuation 2 Puff (PROVENTIL HFA, VENTOLIN HFA) 2 Puff INHALATION q 4 H PRN allopurinol 100 mg tab(s) (ZYLOPRIM) 100 mg ORAL BID DULoxetine 60 mg cap(s) (CYMBALTA) 60 mg ORAL BID gabapentin 600 mg tab(s) (NEURONTIN) 600 mg ORAL TID lisinopril 5 mg tab(s) (ZESTRIL) 5 mg ORAL DAILY rosuvastatin 40 mg tab(s) (CRESTOR) 40 mg ORAL DAILY sodium bicarbonate 1,300 mg tab(s) 1,300 mg ORAL BID dextrose 40 % 15 g 15 g ORAL PRN Or glucagon 1 mg injection 1 mg INTRAMUSCULAR PRN Or dextrose 10% iv bolus 12.5 g INTRAVENOUS PRN NaCl 0.9% iv flush bag 20 mL INTRAVENOUS PRN simethicone, chewable 80 mg tab(s) (MYLICON) 80 mg ORAL QID PRN dilTIAZem CD 120 mg cap(s) (CARDIZEM CD, CARTIA XT) 120 mg ORAL DAILY metoprolol tartrate (short acting) 25 mg tab(s) (LOPRESSOR) 25 mg ORAL q 12 H furosemide 40 mg tab(s) (LASIX) 40 mg ORAL DAILY ceFAZolin iv piggyback 2 g in D5W (iso-osmotic) 100 mL (ANCEF) 2 g INTRAVENOUS q 8 H glimepiride 4 mg tab(s) (AMARYL) 4 mg ORAL BID w MEALS dapagliflozin propanediol 10 mg tab(s) (FARXIGA) 10 mg ORAL DAILY WITH BREAKFAST metFORMIN 500 mg tab(s) (GLUCOPHAGE) 500 mg ORAL BID w MEALS SITagliptin phosphate 50 mg tab(s) (JANUVIA) 50 mg ORAL DAILY oxyCODONE IR 10 mg tab(s) (ROXICODONE) 10 mg ORAL q 4 H PRN oxyCODONE IR 5 mg tab(s) (ROXICODONE) 5 mg ORAL q 4 H PRN HYDROmorphone 0.5 mg injection (DILAUDID) 0.5 mg INTRAVENOUS q 4 H PRN insulin glargine 8 Units pen (long acting) 8 Units SUBCUTANEOUS DAILY (8 AM) PHYSICAL EXAM: Vital signs: BP 106/58 Pulse 87 Temp 36.7 ?C (98.1 ?F) (Oral) Resp 16 Ht 182.9 cm (6') Wt 118 kg (260 lb 2.3 oz) SpO2 95% BMI 35.28 kg/m? Temp (24hrs), Av.7 ?C (98 ?F), Min:36.5 ?C (97.7 ?F), Max:36.7 ?C (98.1 ?F) General: alert, oriented, NAD Lungs: bilaterally clear to auscultation Heart: regular rate and rhythm Abdomen: soft, non tender, non distended, BS+ Extremities: foot dressing No rashes No joint inflammation Neck supple Lines ok No CVAT Lines, Drains, and Airways Line Duration Implanted Vascular Access Device Double Port 05/25/24 Right Chest 7 days Labs: Recent Labs (more content not included)... Normal [facility] CONSULT PROG HNO ID: [id number] Author: EPI POLANCO MD Service: Nephrology Author Type: Physician Type: Consult Progress Note Filed: 06/01/2024 07:39 Note Text: NEPHROLOGY CONSULT PROGRESS NOTE Subjective INTERVAL HISTORY: The patient was seen and examined . No acute event overnight. PERTINENT ROS: GENERAL: No fever/chills. RESPIRATORY: Negative for cough, wheezing or shortness of breath. CARDIOVASCULAR: Negative for chest pain or palpitations. GI: Negative for nausea, vomiting, Diarrhea, abdominal pain. : Negative for dysuria and hematuria MEDICATIONS: Current Facility-Administered Medications Medication Dose Route Frequency acetaminophen 1,000 mg tab(s) (TYLENOL) 1,000 mg ORAL Q6H WHILE AWAKE lidocaine 4 % 1 Patch (SALONPAS) 1 Patch TRANSDERMAL DAILY AT 9 PM And lidocaine patch - REMOVE OTHER DAILY And lidocaine - VERIFY PATCH OTHER q 8 H insulin lispro injection (rapid acting) (ADMElog) SUBCUTANEOUS w MEALS insulin lispro injection (rapid acting) (ADMElog) SUBCUTANEOUS AT BEDTIME polyethylene glycol 3350 17 g packet 17 g ORAL DAILY PRN benzocaine-menthol 1 Lozenge (CEPACOL) 1 Lozenge MUCOUS MEMBRANE (TOPICAL MOUTH AND THROAT) q 2 H PRN benzonatate 100 mg cap(s) (TESSALON PERLE) 100 mg ORAL TID PRN calcium carbonate 1,000 mg chewable tab(s) (TUMS) 1,000 mg ORAL TID PRN prochlorperazine 10 mg injection (COMPAZINE) 10 mg INTRAVENOUS q 6 H PRN melatonin 3 mg tab(s) 3 mg ORAL AT BEDTIME PRN albuterol HFA 90 mcg/actuation 2 Puff (PROVENTIL HFA, VENTOLIN HFA) 2 Puff INHALATION q 4 H PRN allopurinol 100 mg tab(s) (ZYLOPRIM) 100 mg ORAL BID DULoxetine 60 mg cap(s) (CYMBALTA) 60 mg ORAL BID gabapentin 600 mg tab(s) (NEURONTIN) 600 mg ORAL TID lisinopril 5 mg tab(s) (ZESTRIL) 5 mg ORAL DAILY rosuvastatin 40 mg tab(s) (CRESTOR) 40 mg ORAL DAILY sodium bicarbonate 1,300 mg tab(s) 1,300 mg ORAL BID dextrose 40 % 15 g 15 g ORAL PRN Or glucagon 1 mg injection 1 mg INTRAMUSCULAR PRN Or dextrose 10% iv bolus 12.5 g INTRAVENOUS PRN NaCl 0.9% iv flush bag 20 mL INTRAVENOUS PRN simethicone, chewable 80 mg tab(s) (MYLICON) 80 mg ORAL QID PRN dilTIAZem CD 120 mg cap(s) (CARDIZEM CD, CARTIA XT) 120 mg ORAL DAILY metoprolol tartrate (short acting) 25 mg tab(s) (LOPRESSOR) 25 mg ORAL q 12 H furosemide 40 mg tab(s) (LASIX) 40 mg ORAL DAILY ceFAZolin iv piggyback 2 g in D5W (iso-osmotic) 100 mL (ANCEF) 2 g INTRAVENOUS q 8 H glimepiride 4 mg tab(s) (AMARYL) 4 mg ORAL BID w MEALS dapagliflozin propanediol 10 mg tab(s) (FARXIGA) 10 mg ORAL DAILY WITH BREAKFAST insulin glargine 10 Units pen (long acting) 10 Units SUBCUTANEOUS DAILY (8 AM) metFORMIN 500 mg tab(s) (GLUCOPHAGE) 500 mg ORAL BID w MEALS SITagliptin phosphate 50 mg tab(s) (JANUVIA) 50 mg ORAL DAILY oxyCODONE IR 10 mg tab(s) (ROXICODONE) 10 mg ORAL q 4 H PRN oxyCODONE IR 5 mg tab(s) (ROXICODONE) 5 mg ORAL q 4 H PRN HYDROmorphone 0.5 mg injection (DILAUDID) 0.5 mg INTRAVENOUS q 4 H PRN Objective PHYSICAL EXAM: BP 119/63 Pulse 94 Temp 36.5 ?C (97.7 ?F) (Oral) Resp 16 Ht 182.9 cm (6') Wt 118 kg (260 lb 2.3 oz) SpO2 95% BMI 35.28 kg/m? Intake/Output Summary (Last 24 hours) at 06/01/2024 0737 Last data filed at 06/01/2024 0536 Gross per 24 hour Intake 1341 ml Output 2800 ml Net -1459 ml GENERAL: NAD HEENT : NCAT, MMM and pink EYES: Conjunctiva -Pallor, Non icterus sclera. NECK: supple, No JVD, LUNGS: CTA without rales or wheeze, diminished breath sounds, CV: no murmurs, clicks, or gallops. ABDOMEN: soft, NT, BS normal EDEMA : no Lower extremity/ no Dependent edema DATA: Diagnostic tests reviewed for today's visit: Most recent labs and imaging results. Recent Labs 06/01/24 0533 05/31/24 0601 05/30/24 0558 WBC 6.26 7.16 7.63 HB 10.0* 10.3* 10.3* HCT 31.6* 32.5* 32.8* PLT 121* 119* 145* NA 135* 134* 133* K 4.7 4.8 4.7 CHLOR 96* 100 97* CO2 30 26 28 BUN 48* 51* 60* CREAT 1.95* 1.91* 1.98* GLUC 79 121* 132* CA 9.0 8.9 8.8 Assessment/Plan 1. Chronic kidney disease Stage IIIb (baseline creatinine between 1.9 to 2.3 mg deciliter) likely in the setting of diabetic kidney disease 2. Status post fall 3. Left knee pain 4. Right foot pain, status post right great toe amputation right foot incision and drainage bone biopsies have debridement of bone right foot. 5. Type 2 diabetes 6. Hypertension 7. Atrial fibrillation 8. Coronary artery disease 9. Non-Hodgkin's lymphoma status post chemotherapy 3 years ago 10. Anemia 11. Hyperuricemia-uric acid 7.4 on 05/12/2024 12. Recent bilateral mild pelviectasis and hydroureter with concern for obstructive nephropathy and asymmetrical atrophy of left kidney Plan management --Serum creatinine remained stable at 1.95 mg/dL and near baseline. GFR 39 mL/min --All electrolytes and acid-base are in acceptable range. No significant acid-base disturbance. --Ultrasound atrophic left kidney with moderate left hydronephros (more content not included)... Normal [facility] THERAPY NTon 06-01-2024 THERAPY NT HNO ID: [id number] Author: OSIRIS LIAO, PT, DPT Service: Physical Therapy Author Type: Physical Therapist Type: Therapy (PT/OT/Speech/Resp) Filed: 06/01/2024 15:49 Note Text: -------- Summary: PT missed -------- PHYSICAL THERAPY MISSED VISIT SERVICE DATE: 06/01/2024 SERVICE TIME: 1500 ROOM: [place] [address] Patient not seen due to being in too much pain to participate. Just worked with OT (minimally). Pt would like to go to SNF instead of IRU at this time. SIGNATURE: Osiris Lioa PT, DPT PATIENT NAME: Yamilka Sharma DATE: June 01, 2024 TIME: 3:48 PM [facility] THERAPY NT HNO ID: [id number] Author: FRANCIS ENCISO OT/Juan Service: ? Author Type: Occupational Therapist Type: Therapy (PT/OT/Speech/Resp) Filed: 06/01/2024 15:11 Note Text: -------- Summary: OT Treatment -------- Occupational Therapy Treatment Summary SERVICE DATE: 06/01/2024 SERVICE TIME: 1435 to 1455 ROOM: [place] [address] OT 6 Clicks Score: 17 DISCHARGE RECOMMENDATIONS Subacute/SNF Recommended Discharge Disposition Due to: Functional deficits requiring ongoing therapy service prior to discharge home., ADL impairment, Anticipated community discharge, Functional status decline, Requires multiple therapy disciplines Anticipated Discharge Needs: Undetermined Recommended Discharge Equipment: To Be Determined ASSESSMENT Response to Therapy Interventions: Good Participation in Activities, Low Activity Tolerance, Pain, Requires Additional Time to Complete Activities Patient presents with poor tolerance to activity 2/2 pain to RLE, difficulty maintain heel WB to RLE in surgical shoe during mobility, pt is a high fall risk, functioning below baseline with ADLs and mobility/transfers, limited tolerance to session, declining attempt at ADLs and transfers, requires encouragement to participate, pt declining d/c to [place], would rather go to SNF PRECAUTIONS Fall Risk, Lines/Tubes/Drains, Weight Bearing Restrictions Left Lower Extremity Weight Bearing Status: WBAT Right Lower Extremity Weight Bearing Status: NWB (Per podiatry, OK for heel WB to RLE in surgical shoe for transfers and short distances only) CURRENT HOSPITAL COURSE Patient presents to the ED with L knee pain, fall, R great toe osteomyelitis and pathological fx, MRI L knee (-) for occult fx but showing medial mensicus tear, large joint effusion with mild synovitis s/p L knee aspiration, ortho recommending no surgical intervention and WBAT LLE, S/p R great toe amputation, R foot IANDD, bone biopsy, sharp debridement bone R foot 05/30 Relevant Past Medical History: DM2 afib HTN CAD obesity non-hodgkin's lymphoma s/p chemo 3 yrs ago with chronic med port in place for difficult IV access, recent hospital stay at for R toe cellulitis/wound s/p abx/debridement and left knee swelling/pain s/p arthrocentesis; possible toe surgery this upcoming week HOME LIVING Patient Lives With: Spouse Assistance Available: 24-Hour Entry To Home: Stairs Number Of Stairs Into Home: (t) Number Of Stairs To Bed/Bath: 0 Stairs to Bed/Bath with: Unilateral Rail Tub/Shower Type: walk in Laundry: spouse Equipment Owned: Cane, Grab Bars- Shower, Grab Bars- Toilet, Shower Chair, Walker- Wheeled, Rollator PRIOR FUNCTIONAL LEVEL Required Assistance, Within Functional Limits Assistance Required With: Cleaning, Laundry, Meals Pt typically indep ro ADLs and contributes to IADLs. Used cane outside of home and ww sometimes in the home. . Sleeps on a recliner and/or couch since his chemo (more comfortable). assists setting up meds, pt reports 2 falls l ast 6 mos. Last fall as result of pulling self up from couch with RW. Baseline Cognition: Oriented to self, Oriented to time, Oriented to situation, Oriented to place SUBJECTIVE You can ell PT that I already got up and I'm exhausted. RN cleared to work with, patient agreeable to this session COGNITION Orientation Deficits: (AOx4) Responsiveness: Alert, Awake Follows Commands: 3-step Commands, Cueing Needed Cueing to Follow Commands: Minimum THERAPY DIAGNOSIS Reduced mobility-other, Decreased activities of daily living (ADL), Muscle Weakness (generalized), Unsteadiness on feet TREATMENT INTERVENTIONS Therapeutic Activity (20629) Timed Code Treatment (minutes): 18 Skilled Treatment Time (minutes): 18 TRAINING AND EDUCATION PROVIDED Benefits of In-Hospital Mobility, Bed Mobility, Adaptive Equipment/DME, Command Following, Discharge Planning, Expected Functional Level, Functional Mobility Involving ADLs, Insight into Deficits, Lower Extremity Dressing, Memory/Attention, Positioning, Precautions/Restrictions , Pain Management, Role of Occupational Therapy, Safety/Judgment, Sitting Balance to Improve [place] with ADLs/Self-Care, Standing Balance to Improve [place] with ADLs/Self-Care, Transfer - Sit to Stand THERAPEUTIC SKILLS USED Activity Dosing, Cues for Sequencing/Proper Technique for Activity, Cuing Tactile, Cuing Verbal, Cuing Visual, Facilitation of Joint Range of Motion, Movement Facilitation, Muscle Activation Facilitation, Physical Assist, Task Analysis Learning, Teach-Back for Education, Therapeutic Use of Self FUNCTIONAL STATUS Activities of Daily Living Assist Level Additional Information Feeding Independent Grooming Set Up, Additional Information Seated EOB Bathing Upper Body Set Up, Additional Information Se (more content not included)... [facility] THERAPY NT HNO ID: [id number] Author: FRANCIS ENCISO OT/L Service: ? Author Type: Occupational Therapist Type: Therapy (PT/OT/Speech/Resp) Filed: 06/01/2024 11:26 Note Text: -------- Summary: OT Missed Visit -------- OCCUPATIONAL THERAPY MISSED VISIT SERVICE DATE: 06/01/2024 SERVICE TIME: 1121 ROOM: [place] [address] Patient not seen due to Refused Treatment. Patient reports high pain levels and nausea, requesting OT re-attempt later this afternoon. Will continue to follow and re-attempt as able/appropriate -- RN notified. SIGNATURE: Francis Enciso OT/Juan PATIENT NAME: Yamilka Silvatracie DATE: June 01, 2024 TIME: 11:25 AM [facility] THERAPY NT HNO ID: [id number] Author: OSIRIS LIAO PT, DPT Service: Physical Therapy Author Type: Physical Therapist Type: Therapy (PT/OT/Speech/Resp) Filed: 06/01/2024 09:43 Note Text: -------- Summary: PT missed -------- PHYSICAL THERAPY MISSED VISIT SERVICE DATE: 06/01/2024 SERVICE TIME: 941 ROOM: [place] [address] Patient not seen due to pt reports being nauseous and in pain, will re attempt this afternoon as schedule allows. SIGNATURE: Osiris Liao PT, DPT PATIENT NAME: Yamilka Sharma DATE: June 01, 2024 TIME: 9:42 AM Normal [facility] Basic metabolic 2000 panelon 05-31-2024 Anion gap [Moles/Vol] 8 mmol/L Normal 8-15 [facility] Comment on above: Order Comment: Speci men Type: BLOOD SPECIMENOrdering Facility: [facility] Address: [address] [place] [address] Performed By: #### 2 4321-2 ####[facility]ORYCLIA [id number] [place] [address] [place] Calcium [Mass/Vol] 8.9 mg/dL Normal 8.5-10.2 [facility] Comment on above: Order Comment: Speci men Type: BLOOD SPECIMENOrdering Facility: [facility] Address: [address] [place] [address] Performed By: #### 2 4321-2 ####[facility]ORYCLIA [id number] [place] [address] [place] Chloride [Moles/Vol] 100 mmol/L Normal 98-107 [facility] Comment on above: Order Comment: Speci men Type: BLOOD SPECIMENOrdering Facility: [facility] Address: [address] [place] [address] Performed By: #### 2 4321-2 ####[facility]ORYCL[facility] [id number] [place] [address] [place] CO2 [Moles/Vol] 26 mmol/L Normal 22-30 [facility] Comment on above: Order Comment: Speci men Type: BLOOD SPECIMENOrdering Facility: [facility] Address: [address] [place] [address] Performed By: #### 2 4321-2 ####[facility]ORATORYCLIA [id number] [place] [id number] [place] Creatinine [Mass/Vol] 1.91 mg/dL High 0.73-1.22 [facility] Comment on above: Order Comment: Speci men Type: BLOOD SPECIMENOrdering Facility: [facility] Address: [address] [place] [address] Performed By: #### 2 4321-2 ####[facility]ORYCLIA [id number] [place] [address] [place] Creatinine and Glomerular filtration rate.predicted panel (S/P/Bld) 40 mL/min/1.73m??? Low >=60 [facility] Comment on above: Order Comment: Santo malik Type: BLOOD SPECIMENOrdering Facility: [facility] Address: [address] [place] [address] Result Comment: Karissa mated Glomerular Filtration Rate (eGFR) is calculated using the 2020 CKD-EPI creatinine equation. This equation utilizes serum creatinine, sex, and age as parameters. The creatinine assay has traceable calibration to isotope dilution-mass spectrometry. Refer to KDIGO guidelines for clinical interpretation. In patients with unstable renal function, e.g. those with acute kidney injury, the eGFR may not accurately reflect actual GFR. Performed By: #### 2 4321-2 ####[facility]ORYCLIA [id number] [place] [id number] [place] Glucose [Mass/Vol] 121 mg/dL High 74-99 [facility] Comment on above: Order Comment: Santo malik Type: BLOOD SPECIMENOrdering Facility: [facility] Address: [address] [place] [address] Result Comment: The [place] Diabetes Association (ADA) provides guidance for cutoff values for fasting glucose and random glucose. The ADA defines fasting as no caloric intake for at least 8 hours. Fasting plasma glucose results between 100 to 125 mg/dL indicate increased risk for diabetes (prediabetes). Fasting plasma glucose results greater than or equal to 126 mg/dL meet the criteria for diagnosis of diabetes. In the absence of unequivocal hyperglycemia, results should be confirmed by repeat testing. In a patient with classic symptoms of hyperglycemia or hyperglycemic crisis, random plasma glucose results greater than or equal to 200 mg/dL meet the criteria for diagnosis of diabetes. Reference: Standards of Medical Care in Diabetes 2016, [place] [employer]. Diabetes Care. 2016.39(Suppl 1). Performed By: #### 2 4321-2 ####[facility]ORYCLIA [id number] [place] [address] [place] Potassium [Moles/Vol] 4.8 mmol/L Normal 3.7-5.1 [facility] Comment on above: Order Comment: Speci men Type: BLOOD SPECIMENOrdering Facility: [facility] Address: [address] [place] [address] Performed By: #### 2 4321-2 ####[facility]ORYCLIA [id number] [address] [place] Sodium [Moles/Vol] 134 mmol/L Low 136-144 [facility] Comment on above: Order Comment: Speci men Type: BLOOD SPECIMENOrdering Facility: [facility] Address: [address] [place] [address] Performed By: #### 2 4321-2 ####[facility]ATORYCLIA [id number] [place] [address] [place] Urea nitrogen [Mass/Vol] 51 mg/dL High 9-24 [facility] Comment on above: Order Comment: Speci men Type: BLOOD SPECIMENOrdering Facility: [facility] Address: [address] [place] [address] Performed By: #### 2 4321-2 ####[facility]ORYCLIA [id number] [address] [place] CBC panel Auto (Bld)on 05-31 Erythrocyte distribution width (RBC) [Ratio] 14.5 % Normal 11.5-15.0 [facility] Comment on above: Order Comment: Speci men Type: BLOOD SPECIMENOrdering Facility: [facility] Address: [address] [place] [address] Performed By: #### 5 8410-2 ####[facility]ATORYCLIA [id number] [address] [place] Hematocrit (Bld) [Volume fraction] 32.5 % Low 39.0-51.0 [facility] Comment on above: Order Comment: Speci men Type: BLOOD SPECIMENOrdering Facility: [facility] Address: [address] [place] [address] Performed By: #### 5 8410-2 ####[facility]ATORYCLIA [id number] [address] [place] Hemoglobin (Bld) [Mass/Vol] 10.3 g/dL Low 13.0-17.0 [facility] Comment on above: Order Comment: Speci men Type: BLOOD SPECIMENOrdering Facility: [facility] Address: [address] [place] [address] Performed By: #### 5 8410-2 ####[facility]ATORYCLIA [id number] [address] [place] MCH (RBC) [Entitic mass] 25.9 pg Low 26.0-34.0 [facility] Comment on above: Order Comment: Speci men Type: BLOOD SPECIMENOrdering Facility: [facility] Address: [address] [place] [address] Performed By: #### 5 8410-2 ####[facility]ORYCLIA [id number] [address] [place] MCHC (RBC) [Mass/Vol] 31.7 g/dL Normal 30.5-36.0 [facility] Comment on above: Order Comment: Speci men Type: BLOOD SPECIMENOrdering Facility: [facility] Address: [address] [place] [address] Performed By: #### 5 8410-2 ####[facility]ATORYCLIA [id number] [address] [place] MCV (RBC) [Entitic vol] 81.7 fL Normal 80.0-100.0 [facility] Comment on above: Order Comment: Speci men Type: BLOOD SPECIMENOrdering Facility: [facility] Address: [address] [place] [address] Performed By: #### 5 8410-2 ####[facility]ATORYCLIA [id number] [address] [place] Nucleated RBC (Bld) [#/Vol] 10*3/uL Normal <0.01 [facility] Comment on above: Order Comment: Speci men Type: BLOOD SPECIMENOrdering Facility: [facility] Address: [address] [place] [address] Performed By: #### 5 8410-2 ####[facility]ORYCLIA [id number] [address] [place] Platelet mean volume (Bld) [Entitic vol] 10.2 fL Normal 9.0-12.7 [facility] Comment on above: Order Comment: Speci men Type: BLOOD SPECIMENOrdering Facility: [facility] Address: [address] [place] [address] Performed By: #### 5 8410-2 ####[facility]ATORYCLIA [id number] [place] [address] [place] Platelets (Bld) [#/Vol] 119 10*3/uL Low 150-400 [facility] Comment on above: Order Comment: Speci men Type: BLOOD SPECIMENOrdering Facility: [facility] Address: [address] [place] [address] Performed By: #### 5 8410-2 ####[facility]ATORYCLIA [id number] [place] [address] [place] RBC (Bld) [#/Vol] 3.98 10*6/uL Low 4.20-6.00 [facility] Comment on above: Order Comment: Speci men Type: BLOOD SPECIMENOrdering Facility: [facility] Address: [address] [place] [address] Performed By: #### 5 8410-2 ####[facility]ORYCLIA [id number] [address] [place] WBC (Bld) [#/Vol] 7.16 10*3/uL Normal 3.70-11.00 [facility] Comment on above: Order Comment: Speci men Type: BLOOD SPECIMENOrdering Facility: [facility] Address: [address] [place] [address] Performed By: #### 5 8410-2 ####[facility]ATORYCLIA [id number] [place] [id number] [facility] CONSULT PROGon 05-31-2024 CONSULT PROG HNO ID: [id number] Author: AMRIT DEL VALLE MD Service: Infectious Disease Author Type: Physician Type: Consult Progress Note Filed: 06/01/2024 09:35 Note Text: INFECTIOUS DISEASE PROGRESS NOTE Patient Name: Yamilka Sharma INTERVAL HISTORY: Knee pain and swelling is a bit better. No new complaints. Feels better. Leucocytosis resolved Patient Active Hospital Problem List: Osteomyelitis of great toe of right foot ([facility]) (05/29/2024) Type 2 diabetes mellitus with diabetic nephropathy, without long-term current use of insulin ([facility]) (07/21/2017) Coronary artery disease involving [place] coronary artery of [place] heart without angina pectoris (11/01/2021) Hyperlipidemia, mixed (05/02/2022) Paroxysmal atrial fibrillation ([facility]) (01/10/2023) Acute pain of left knee (05/13/2024) Acute medial meniscus tear (05/25/2024) Essential hypertension (05/26/2024) Simple chronic bronchitis ([facility]) (05/26/2024) Stage 3b chronic kidney disease ([facility]) (05/26/2024) Class 2 obesity due to excess calories with body mass index (BMI) of 35.0 to 35.9 in adult (05/27/2024) H/O insertion of central venous access port (05/29/2024) Hemarthrosis involving knee joint, left (05/30/2024) Physical debility (05/30/2024) Depression (05/30/2024) ASSESSMENT: Knee pain Possible early OM of foot, Cx w Strep group C, plus rare SCN, likely colonizer Essential hypertension Type 2 diabetes mellitus Simple chronic bronchitis Atrial fibrillation Stage 3b chronic kidney disease PLAN: OK to discharge on PO Augmentin till 06/06 Left knee corticosteroid injection contraindicated at this time due to active infection of right foot with plans for amputation of right great toe 2/2 osteomyelitis with podiatry on 05/30/24. Left knee aspiration performed for therapeutic purposes. Synovial fluid results rev and has 18K WBC w 63% N, cultures are negative. Doubt septic arthritis MEDICATIONS: reviewed. Current Facility-Administered Medications Medication Dose Route Frequency acetaminophen 1,000 mg tab(s) (TYLENOL) 1,000 mg ORAL Q6H WHILE AWAKE lidocaine 4 % 1 Patch (SALONPAS) 1 Patch TRANSDERMAL DAILY AT 9 PM And lidocaine patch - REMOVE OTHER DAILY And lidocaine - VERIFY PATCH OTHER q 8 H insulin lispro injection (rapid acting) (ADMElog) SUBCUTANEOUS w MEALS insulin lispro injection (rapid acting) (ADMElog) SUBCUTANEOUS AT BEDTIME polyethylene glycol 3350 17 g packet 17 g ORAL DAILY PRN benzocaine-menthol 1 Lozenge (CEPACOL) 1 Lozenge MUCOUS MEMBRANE (TOPICAL MOUTH AND THROAT) q 2 H PRN benzonatate 100 mg cap(s) (TESSALON PERLE) 100 mg ORAL TID PRN calcium carbonate 1,000 mg chewable tab(s) (TUMS) 1,000 mg ORAL TID PRN prochlorperazine 10 mg injection (COMPAZINE) 10 mg INTRAVENOUS q 6 H PRN melatonin 3 mg tab(s) 3 mg ORAL AT BEDTIME PRN albuterol HFA 90 mcg/actuation 2 Puff (PROVENTIL HFA, VENTOLIN HFA) 2 Puff INHALATION q 4 H PRN allopurinol 100 mg tab(s) (ZYLOPRIM) 100 mg ORAL BID DULoxetine 60 mg cap(s) (CYMBALTA) 60 mg ORAL BID gabapentin 600 mg tab(s) (NEURONTIN) 600 mg ORAL TID lisinopril 5 mg tab(s) (ZESTRIL) 5 mg ORAL DAILY rosuvastatin 40 mg tab(s) (CRESTOR) 40 mg ORAL DAILY sodium bicarbonate 1,300 mg tab(s) 1,300 mg ORAL BID dextrose 40 % 15 g 15 g ORAL PRN Or glucagon 1 mg injection 1 mg INTRAMUSCULAR PRN Or dextrose 10% iv bolus 12.5 g INTRAVENOUS PRN NaCl 0.9% iv flush bag 20 mL INTRAVENOUS PRN simethicone, chewable 80 mg tab(s) (MYLICON) 80 mg ORAL QID PRN dilTIAZem CD 120 mg cap(s) (CARDIZEM CD, CARTIA XT) 120 mg ORAL DAILY metoprolol tartrate (short acting) 25 mg tab(s) (LOPRESSOR) 25 mg ORAL q 12 H furosemide 40 mg tab(s) (LASIX) 40 mg ORAL DAILY ceFAZolin iv piggyback 2 g in D5W (iso-osmotic) 100 mL (ANCEF) 2 g INTRAVENOUS q 8 H glimepiride 4 mg tab(s) (AMARYL) 4 mg ORAL BID w MEALS dapagliflozin propanediol 10 mg tab(s) (FARXIGA) 10 mg ORAL DAILY WITH BREAKFAST insulin glargine 10 Units pen (long acting) 10 Units SUBCUTANEOUS DAILY (8 AM) metFORMIN 500 mg tab(s) (GLUCOPHAGE) 500 mg ORAL BID w MEALS SITagliptin phosphate 50 mg tab(s) (JANUVIA) 50 mg ORAL DAILY oxyCODONE IR 10 mg tab(s) (ROXICODONE) 10 mg ORAL q 4 H PRN oxyCODONE IR 5 mg tab(s) (ROXICODONE) 5 mg ORAL q 4 H PRN HYDROmorphone 0.5 mg injection (DILAUDID) 0.5 mg INTRAVENOUS q 4 H PRN PHYSICAL EXAM: Vital signs: BP 106/58 Pulse 87 Temp 36.7 ?C (98.1 ?F) (Oral) Resp 16 Ht 182.9 cm (6') Wt 118 kg (260 lb 2.3 oz) SpO2 95% BMI 35.28 kg/m? Temp (24hrs), Av.7 ?C (98 ?F), Min:36.5 ?C (97.7 ?F), Max:36.7 ?C (98.1 ?F) General: alert, oriented, NAD Lungs: bilaterally clear to auscultation Heart: regular rate and rhythm Abdomen: soft, non tender, non distended, BS+ Extremities: foot dressing No rashes No joint inflammation Neck supple Lines ok No CVAT Lines, Drains, and Airways Line Duration Implanted Vascular Access Device Double Port 05/25/24 Right Chest 7 days Labs: Recent Labs (more content not included)... [facility] CONSULT PROG HNO ID: [id number] Author: EPI POLANCO MD Service: Nephrology Author Type: Physician Type: Consult Progress Note Filed: 05/31/2024 07:38 Note Text: NEPHROLOGY CONSULT PROGRESS NOTE Subjective INTERVAL HISTORY: The patient was seen and examined . No acute event overnight. PERTINENT ROS: GENERAL: No fever/chills. RESPIRATORY: Negative for cough, wheezing or shortness of breath. CARDIOVASCULAR: Negative for chest pain or palpitations. GI: Negative for nausea, vomiting, Diarrhea, abdominal pain. : Negative for dysuria and hematuria MEDICATIONS: Current Facility-Administered Medications Medication Dose Route Frequency acetaminophen 1,000 mg tab(s) (TYLENOL) 1,000 mg ORAL Q6H WHILE AWAKE lidocaine 4 % 1 Patch (SALONPAS) 1 Patch TRANSDERMAL DAILY AT 9 PM And lidocaine patch - REMOVE OTHER DAILY And lidocaine - VERIFY PATCH OTHER q 8 H oxyCODONE IR 5 mg tab(s) (ROXICODONE) 5 mg ORAL q 6 H PRN HYDROmorphone 0.5 mg injection (DILAUDID) 0.5 mg INTRAVENOUS q 3 H PRN insulin lispro injection (rapid acting) (ADMElog) SUBCUTANEOUS w MEALS insulin lispro injection (rapid acting) (ADMElog) SUBCUTANEOUS AT BEDTIME polyethylene glycol 3350 17 g packet 17 g ORAL DAILY PRN benzocaine-menthol 1 Lozenge (CEPACOL) 1 Lozenge MUCOUS MEMBRANE (TOPICAL MOUTH AND THROAT) q 2 H PRN benzonatate 100 mg cap(s) (TESSALON PERLE) 100 mg ORAL TID PRN calcium carbonate 1,000 mg chewable tab(s) (TUMS) 1,000 mg ORAL TID PRN prochlorperazine 10 mg injection (COMPAZINE) 10 mg INTRAVENOUS q 6 H PRN melatonin 3 mg tab(s) 3 mg ORAL AT BEDTIME PRN albuterol HFA 90 mcg/actuation 2 Puff (PROVENTIL HFA, VENTOLIN HFA) 2 Puff INHALATION q 4 H PRN allopurinol 100 mg tab(s) (ZYLOPRIM) 100 mg ORAL BID DULoxetine 60 mg cap(s) (CYMBALTA) 60 mg ORAL BID gabapentin 600 mg tab(s) (NEURONTIN) 600 mg ORAL TID lisinopril 5 mg tab(s) (ZESTRIL) 5 mg ORAL DAILY rosuvastatin 40 mg tab(s) (CRESTOR) 40 mg ORAL DAILY sodium bicarbonate 1,300 mg tab(s) 1,300 mg ORAL BID dextrose 40 % 15 g 15 g ORAL PRN Or glucagon 1 mg injection 1 mg INTRAMUSCULAR PRN Or dextrose 10% iv bolus 12.5 g INTRAVENOUS PRN NaCl 0.9% iv flush bag 20 mL INTRAVENOUS PRN simethicone, chewable 80 mg tab(s) (MYLICON) 80 mg ORAL QID PRN dilTIAZem CD 120 mg cap(s) (CARDIZEM CD, CARTIA XT) 120 mg ORAL DAILY metoprolol tartrate (short acting) 25 mg tab(s) (LOPRESSOR) 25 mg ORAL q 12 H furosemide 40 mg tab(s) (LASIX) 40 mg ORAL DAILY ceFAZolin iv piggyback 2 g in D5W (iso-osmotic) 100 mL (ANCEF) 2 g INTRAVENOUS q 8 H oxyCODONE IR 10 mg tab(s) (ROXICODONE) 10 mg ORAL q 3 H PRN glimepiride 4 mg tab(s) (AMARYL) 4 mg ORAL BID w MEALS dapagliflozin propanediol 10 mg tab(s) (FARXIGA) 10 mg ORAL DAILY WITH BREAKFAST insulin glargine 10 Units pen (long acting) 10 Units SUBCUTANEOUS DAILY (8 AM) metFORMIN 500 mg tab(s) (GLUCOPHAGE) 500 mg ORAL BID w MEALS SITagliptin phosphate 50 mg tab(s) (JANUVIA) 50 mg ORAL DAILY Objective PHYSICAL EXAM: BP 106/69 Pulse 98 Temp 36.6 ?C (97.9 ?F) (Oral) Resp 12 Ht 182.9 cm (6') Wt 118 kg (260 lb 2.3 oz) SpO2 95% BMI 35.28 kg/m? Intake/Output Summary (Last 24 hours) at 05/31/2024 0736 Last data filed at 05/31/2024 0600 Gross per 24 hour Intake 671 ml Output 2900 ml Net -2229 ml GENERAL: NAD HEENT : NCAT, MMM and pink EYES: Conjunctiva -Pallor, Non icterus sclera. NECK: supple, No JVD, LUNGS: CTA without rales or wheeze, diminished breath sounds, CV: no murmurs, clicks, or gallops. ABDOMEN: soft, NT, BS normal EDEMA : no Lower extremity/ no Dependent edema DATA: Diagnostic tests reviewed for today's visit: Most recent labs and imaging results. Recent Labs 05/31/24 0601 05/30/24 0558 05/29/24 0609 WBC 7.16 7.63 9.34 HB 10.3* 10.3* 10.6* HCT 32.5* 32.8* 33.9* PLT 119* 145* 158 NA 134* 133* 134* K 4.8 4.7 4.4 CHLOR 100 97* 98 CO2 26 28 26 BUN 51* 60* 60* CREAT 1.91* 1.98* 2.04* GLUC 121* 132* 77 CA 8.9 8.8 8.7 Assessment/Plan 1. Chronic kidney disease Stage IIIb (baseline creatinine between 1.9 to 2.3 mg deciliter) likely in the setting of diabetic kidney disease 2. Status post fall 3. Left knee pain 4. Right foot pain, status post right great toe amputation right foot incision and drainage bone biopsies have debridement of bone right foot. 5. Type 2 diabetes 6. Hypertension 7. Atrial fibrillation 8. Coronary artery disease 9. Non-Hodgkin's lymphoma status post chemotherapy 3 years ago 10. Anemia 11. Hyperuricemia-uric acid 7.4 on 05/12/2024 12. Recent bilateral mild pelviectasis and hydroureter with concern for obstructive nephropathy and asymmetrical atrophy of left kidney Plan management --Serum creatinine decreased to 1.91 mg/dL. --All electrolytes and acid-base are in acceptable range. No significant acid-base disturbance --Ultrasound atrophic left kidney with moderate left hydronephrosis similar to CT scan of 05/11/2024. Prior (more content not included)... Normal [facility] ANES POSTPROC EVALon 024 ANES POSTPROC EVAL HNO ID: [id number] Author: NATHANIEL DE LA ROSA MD Service: Anesthesiology Author Type: Physician Type: Anesthesia Postprocedure Evaluation Filed: 05/30/2024 14:02 Note Text: POST ANESTHESIA EVALUATION NOTE : 1965 Procedure Summary Date: 05/30/24 Room / Location: [place] [address] / [place] Anesthesia Start: 1227 Anesthesia Stop: 1321 Procedure: AMPUTATION TOE INTERPHALANGEAL JOINT (Right: Foot) Diagnosis: Osteomyelitis of right foot (HCC) (Osteomyelitis of right foot (HCC) [M86.9]) Surgeons: Cherelle Campos DPM Responsible Provider: Nathaniel De La Rosa MD Anesthesia Type: MAC ASA Status: 3 Anesthesia Type: MAC Last Vitals Vitals Value Taken Time BP 109/72 05/30/24 1400 Temp 36.8 ?C (98.2 ?F) 05/30/24 1325 Pulse 84 05/30/24 1400 Resp 11 05/30/24 1400 SpO2 97 % 05/30/24 1400 Vitals shown include unfiled device data. Post Anesthesia Patient Status Patient Evaluation: PACU. PACU/ICU Patient Condition: stable. Anticipated Disposition: phase 2 then home. Neurological Status: aware and responsive. Pulmonary Status: breathing comfortably on room air Airway Control: returned to baseline unsupported. Cardiovascular Status: stable. Pain Management: clinically adequate - multimodal analgesia pain management approach Postoperative Hydration: acceptable. Intraoperative Events: no significant anesthesia events Recommendation: continue current plan of care. Anesthesia Observations No Documentation SIGNATURE: Nathaniel De La Rosa MD PATIENT NAME: Yamilka Sharma DATE: May 30, 2024 TIME: 2:02 PM CSN: [id number] [facility] ANES PRE-OPon 05-30-2024 ANES PRE-OP HNO ID: [id number] Author: NATHANIEL DE LA ROSA MD Service: Anesthesiology Author Type: Physician Type: Anesthesia Preprocedure Evaluation Filed: 05/30/2024 11:55 Note Text: ANESTHESIOLOGY DAY OF SURGERY NOTE : 1965 Procedure Information Date/Time: 05/30/24 1200 Procedure: AMPUTATION TOE INTERPHALANGEAL JOINT (Right: Foot) Location: [place] Surgeons: Cherelle Campos DPM Estimated body mass index is 35.28 kg/m? as calculated from the following: Height as of this encounter: 182.9 cm (6'). Weight as of this encounter: 118 kg (260 lb 2.3 oz). Most recent hematocrit and potassium results: Hematocrit 32.8 05/30/2024 Potassium 4.7 05/30/2024 Relevant Problems No relevant active problems I - PHYSICAL EVALUATION AIRWAY Patient intubated: No. Tracheostomy tube not present Mallampati: IV. TM distance: >3 FB. Neck ROM: full ROM without neurological symptoms. Mouth opening: adequate. Short neck: no. Thick neck: no Burgess present: yes DENTAL Normal dental observations. Dental findings: poor dentition. Additional exam findings: no II - ANESTHESIA PLAN ASA Score: 3 Anesthetic Plan: MAC NPO Status: adequate Anesthetic plan additional comments: Diagnosed with mild DEISI but does not require CPAP.. Beta Chaka Monitoring Plan Monitoring plan: Standard ASA. Post Procedure Analgesic Plan Postoperative analgesic plan: parenteral or oral opioids and multimodal analgesia. Informed Consent Anesthetic risks, benefits, alternatives, personnel and consent discussed: yes. Patient / Responsible Constitution Party agrees to proceed: yes Patient / Surrogate agrees to blood products: blood products not planned DNR status not reviewed with patient and/or family prior to surgery. Significant changes in the patient condition since the History and Physical, not otherwise documented in primary service progress note: no. Potential Anesthesia issues that may suggest increased risk of complications or contraindication to planned procedure: none. No vitals data found for the desired time range. Facility-Administered Medications as of 05/30/2024 Medication Dose Route Frequency [Held on Transfer] oxyCODONE IR 10 mg tab(s) (ROXICODONE) 10 mg ORAL q 3 H PRN [Held on Transfer] glimepiride 4 mg tab(s) (AMARYL) 4 mg ORAL BID w MEALS [Held on Transfer] dapagliflozin propanediol 10 mg tab(s) (FARXIGA) 10 mg ORAL DAILY WITH BREAKFAST [Held on Transfer] insulin glargine 10 Units pen (long acting) 10 Units SUBCUTANEOUS DAILY (8 AM) [Held on Transfer] metFORMIN 500 mg tab(s) (GLUCOPHAGE) 500 mg ORAL BID w MEALS [Held on Transfer] SITagliptin phosphate 50 mg tab(s) (JANUVIA) 50 mg ORAL DAILY [Held on Transfer] dilTIAZem CD 120 mg cap(s) (CARDIZEM CD, CARTIA XT) 120 mg ORAL DAILY [Held on Transfer] metoprolol tartrate (short acting) 25 mg tab(s) (LOPRESSOR) 25 mg ORAL q 12 H [Held on Transfer] furosemide 40 mg tab(s) (LASIX) 40 mg ORAL DAILY [COMPLETED] lidocaine 10 mg/mL (1 %) 50 mg injection (XYLOCAINE) 5 mL INTRADERMAL ONCE [Held on Transfer] ceFAZolin iv piggyback 2 g in D5W (iso-osmotic) 100 mL (ANCEF) 2 g INTRAVENOUS q 8 H [Held on Transfer] NaCl 0.9% iv flush bag 20 mL INTRAVENOUS PRN [Held on Transfer] simethicone, chewable 80 mg tab(s) (MYLICON) 80 mg ORAL QID PRN [Held on Transfer] acetaminophen 1,000 mg tab(s) (TYLENOL) 1,000 mg ORAL Q6H WHILE AWAKE [Held on Transfer] lidocaine 4 % 1 Patch (SALONPAS) 1 Patch TRANSDERMAL DAILY AT 9 PM And [Held on Transfer] lidocaine patch - REMOVE OTHER DAILY And [Held on Transfer] lidocaine - VERIFY PATCH OTHER q 8 H [Held on Transfer] oxyCODONE IR 5 mg tab(s) (ROXICODONE) 5 mg ORAL q 6 H PRN [Held on Transfer] HYDROmorphone 0.5 mg injection (DILAUDID) 0.5 mg INTRAVENOUS q 3 H PRN [Held on Transfer] insulin lispro injection (rapid acting) (ADMElog) SUBCUTANEOUS w MEALS [Held on Transfer] insulin lispro injection (rapid acting) (ADMElog) SUBCUTANEOUS AT BEDTIME [Held on Transfer] polyethylene glycol 3350 17 g packet 17 g ORAL DAILY PRN [Held on Transfer] benzocaine-menthol 1 Lozenge (CEPACOL) 1 Lozenge MUCOUS MEMBRANE (TOPICAL MOUTH AND THROAT) q 2 H PRN [Held on Transfer] benzonatate 100 mg cap(s) (TESSALON PERLE) 100 mg ORAL TID PRN [Held on Transfer] calcium carbonate 1,000 mg chewable tab(s) (TUMS) 1,000 mg ORAL TID PRN [Held on Transfer] prochlorperazine 10 mg injection (COMPAZINE) 10 mg INTRAVENOUS q 6 H PRN [Held on Transfer] melatonin 3 mg tab(s) 3 mg ORAL AT BEDTIME PRN [Held on Transfer] albuterol HFA 90 mcg/actuation 2 Puff (PROVENTIL HFA, VENTOLIN HFA) 2 Puff INHALATION q 4 H PRN [Held on Transfer] allopurinol 100 mg tab(s) (ZYLOPRIM) 100 mg ORAL BID [Held on Transfer] DULoxetine 60 mg cap(s) (CYMBALTA) 60 mg ORAL BID [Held on Transfer] gabapentin 600 mg tab(s) (NEURONTIN) 600 mg ORAL TID [Held on Transfer] lisinopril 5 mg tab(s) (ZESTRIL) 5 mg ORAL DAILY [Held on Transfer] rosuvastatin 40 mg ta (more content not included)... [facility] BRIEF OP NOTon 05-30-2024 BRIEF OP NOT HNO ID: [id number] Author: CHERELLE CAMPOS DPM Service: Podiatry Author Type: Physician Type: Brief Op Note Filed: 05/30/2024 13:27 Note Text: BRIEF OPERATIVE / PROCEDURE NOTE LOG ID: [id number] SURGERY/PROCEDURE DATE: 05/30/2024 INCISION/PROCEDURE START TIME: 12:43 PM INCISION CLOSE/PROCEDURE END TIME: 1:19 PM SURGEON(S)/PROCEDURALIST (S) AND MARKET MANAGER(S): Surgeon(s) and Role: * Cherelle Campos DPM - Primary * Ana Mccord DPM - Resident - Assisting * Brody Mendez DPM - Resident - Assisting Registered Nurse Bench Mechanic: Misa Cifuentes RN SURGERY/PROCEDURE(S): RT great toe amputation, Right foot IANDD, bone biopsy, sharp debridement bone right foot ANESTHESIA: Monitored Anesthesia Care FINDINGS: There was pus on incision at IPJ. In pre op, I had discussed he will likely need a total RT great toe amputation vs a partial, based on intra-op findings. There was a septic IPJ intra-op, therefore the total RT great toe needed an amputation. The tissue was patel and sloughing to base of toe, but the first metatatsal head bone was normal appearing. After total removal right hallux, I irrigated and obtained a small sample of RT first metatarsal bone post lavage to path and micro. I closed the incision fully. There is a chance he needs staged IANDD, but I felt the improvement at the base of toe was good for closure at this time. Will monitor incision and OR cultures for final antibiotic recommendation and there is a chance he may need a PICC line. NWB right foot. ESTIMATED BLOOD LOSS: less than 20 mls SPECIMENS: RT hallux to path, right first metatarsal bone to path and micro post lavage and swab post lavage to micro COMPLICATIONS: None CLOSURE TECHNIQUE: Primary PRE-OP/PRE-PROCEDURE DIAGNOSIS: skin ulcer right great toe to bone, OM, right great toe abscess, right foot cellulitis, dm foot ulcer, Dm II POST-OP/POST-PROCEDURE DIAGNOSIS: Same as Preop and septic hallux IPJ SIGNATURE: Cherelle Campos DPM PATIENT NAME: Yamilka Sharma DATE: May 30, 2024 TIME: 1:21 PM Normal [facility] Bacteria Spec Anaerobe Culto n 05-30-2024 Bacteria identified Anaer cx Nom (Unsp spec) Negative Normal [facility] Comment on above: Performed By: #### 1 1475-1, 635-3, 24107-7 ####[facility] [id number] [place] [address] [place] Bacteria identified Anaer cx Nom (Unsp spec) Negative Normal [facility] Comment on above: Performed By: #### 6 35-3, 6462-6 ####[facility] [id number] [place] [address] [place] Bacteria Tiss Culton 024 Bacteria identified Cx Nom (Tiss) CULTURE, TISSUE: No growth GRAM STAIN: No organisms seen No Polymorphonuclear Leukocytes Normal [facility] Comment on above: Performed By: #### 1 1475-1, 635-3, 83016-0 ####[facility] [id number] [place] [address] [place] Bacteria Wnd Culton 05-30-20 24 Bacteria identified Cx Nom (Wound) CULTURE, WOUND: No growth GRAM STAIN: No organisms seen No Polymorphonuclear Leukocytes Normal [facility] Comment on above: Performed By: #### 6 35-3, 6462-6 ####[facility] [id number] [place] [address] [place] Basic metabolic 2000 panelon 05-30-2024 Anion gap [Moles/Vol] 8 mmol/L Normal 8-15 [facility] Comment on above: Order Comment: Speci men Type: BLOOD SPECIMENOrdering Facility: [facility] Address: [address] [place] [address] Performed By: #### 2 4321-2 ####[facility] [id number] [place] [address] [place] Calcium [Mass/Vol] 8.8 mg/dL Normal 8.5-10.2 [facility] Comment on above: Order Comment: Speci men Type: BLOOD SPECIMENOrdering Facility: [facility] Address: [address] [place] [address] Performed By: #### 2 4321-2 ####[facility]ORY[facility] [id number] [place] [address] [place] Chloride [Moles/Vol] 97 mmol/L Low 98-107 [facility] Comment on above: Order Comment: Speci men Type: BLOOD SPECIMENOrdering Facility: [facility] Address: [address] [place] [address] Performed By: #### 2 4321-2 ####[facility]ORYCL[facility] [id number] [place] [address] [place] CO2 [Moles/Vol] 28 mmol/L Normal 22-30 [facility] Comment on above: Order Comment: Speci men Type: BLOOD SPECIMENOrdering Facility: [facility] Address: [address] [place] [address] Performed By: #### 2 4321-2 ####[facility] [id number] [place] [address] [place] Creatinine [Mass/Vol] 1.98 mg/dL High 0.73-1.22 [facility] Comment on above: Order Comment: Speci men Type: BLOOD SPECIMENOrdering Facility: [facility] Address: [address] [place] [address] Performed By: #### 2 4321-2 ####[facility] [id number] [address] [facility] Creatinine and Glomerular filtration rate.predicted panel (S/P/Bld) 38 mL/min/1.73m??? Low >=60 [facility] Comment on above: Order Comment: Raghui men Type: BLOOD SPECIMENOrdering Facility: [facility] Address: [address] [place] [address] Result Comment: Karissa mated Glomerular Filtration Rate (eGFR) is calculated using the 2020 CKD-EPI creatinine equation. This equation utilizes serum creatinine, sex, and age as parameters. The creatinine assay has traceable calibration to isotope dilution-mass spectrometry. Refer to KDIGO guidelines for clinical interpretation. In patients with unstable renal function, e.g. those with acute kidney injury, the eGFR may not accurately reflect actual GFR. Performed By: #### 2 4321-2 ####[facility] [id number] [place] [address] [place] Glucose [Mass/Vol] 132 mg/dL High 74-99 [facility] Comment on above: Order Comment: Speci men Type: BLOOD SPECIMENOrdering Facility: [facility] Address: [address] [place] [address] Result Comment: The [place] [employer] (ADA) provides guidance for cutoff values for fasting glucose and random glucose. The ADA defines fasting as no caloric intake for at least 8 hours. Fasting plasma glucose results between 100 to 125 mg/dL indicate increased risk for diabetes (prediabetes). Fasting plasma glucose results greater than or equal to 126 mg/dL meet the criteria for diagnosis of diabetes. In the absence of unequivocal hyperglycemia, results should be confirmed by repeat testing. In a patient with classic symptoms of hyperglycemia or hyperglycemic crisis, random plasma glucose results greater than or equal to 200 mg/dL meet the criteria for diagnosis of diabetes. Reference: Standards of Medical Care in Diabetes 2016, [place] [employer]. Diabetes Care. 2016.39(Suppl 1). Performed By: #### 2 4321-2 ####[facility]ORY[facility] [id number] [place] [address] [place] Potassium [Moles/Vol] 4.7 mmol/L Normal 3.7-5.1 [facility] Comment on above: Order Comment: Speci men Type: BLOOD SPECIMENOrdering Facility: [facility] Address: [address] [place] [address] Performed By: #### 2 4321-2 ####[facility]ORY[facility] [id number] [place] [address] [place] Sodium [Moles/Vol] 133 mmol/L Low 136-144 [facility] Comment on above: Order Comment: Speci men Type: BLOOD SPECIMENOrdering Facility: [facility] Address: [address] [place] [address] Performed By: #### 2 4321-2 ####[facility]ORYCL[facility] [id number] [place] [address] [place] Urea nitrogen [Mass/Vol] 60 mg/dL High 9-24 [facility] Comment on above: Order Comment: Raghui men Type: BLOOD SPECIMENOrdering Facility: [facility] Address: [address] [place] [address] Performed By: #### 2 4321-2 ####[facility]ORYCL[facility] [id number] [address] CBC panel Auto (Bld)on 05-30 Erythrocyte distribution width (RBC) [Ratio] 14.6 % Normal 11.5-15.0 [facility] Comment on above: Order Comment: Speci men Type: BLOOD SPECIMENOrdering Facility: [facility] Address: [address] [place] [address] Performed By: #### 5 8410-2 ####[facility]ORY[facility] [id number] [address] Hematocrit (Bld) [Volume fraction] 32.8 % Low 39.0-51.0 [facility] Comment on above: Order Comment: Speci men Type: BLOOD SPECIMENOrdering Facility: [facility] Address: [address] [place] [address] Performed By: #### 5 8410-2 ####[facility] LABORATORYCLIA [id number] [address] Hemoglobin (Bld) [Mass/Vol] 10.3 g/dL Low 13.0-17.0 [facility] Comment on above: Order Comment: Speci men Type: BLOOD SPECIMENOrdering Facility: [facility] Address: [address] [place] [address] Performed By: #### 5 8410-2 ####[facility] LABORATORYCLIA [id number] [address] MCH (RBC) [Entitic mass] 25.6 pg Low 26.0-34.0 [facility] Comment on above: Order Comment: Speci men Type: BLOOD SPECIMENOrdering Facility: [facility] Address: [address] [place] [address] Performed By: #### 5 8410-2 ####[facility] LABORATORYCLIA [id number] [address] MCHC (RBC) [Mass/Vol] 31.4 g/dL Normal 30.5-36.0 [facility] Comment on above: Order Comment: Speci men Type: BLOOD SPECIMENOrdering Facility: [facility] Address: [address] [place] [address] Performed By: #### 5 8410-2 ####[facility] LABORATORYCLIA [id number] [place] [id number] [facility] [place] MCV (RBC) [Entitic vol] 81.4 fL Normal 80.0-100.0 M [facility] Comment on above: Order Comment: Speci men Type: BLOOD SPECIMENOrdering Facility: [facility] Address: [address] [place] [address] Performed By: #### 5 8410-2 ####[facility] LABORATORYCLIA [id number] [place] [address] [place] Nucleated RBC (Bld) [#/Vol] 10*3/uL Normal <0.01 [facility] Comment on above: Order Comment: Speci men Type: BLOOD SPECIMENOrdering Facility: [facility] Address: [address] [place] [address] Performed By: #### 5 8410-2 ####[facility] LABORATORYCLIA [id number] [address] [place] Platelet mean volume (Bld) [Entitic vol] 10.6 fL Normal 9.0-12.7 [facility] Comment on above: Order Comment: Speci men Type: BLOOD SPECIMENOrdering Facility: [facility] Address: [address] [place] [address] Performed By: #### 5 8410-2 ####[facility] LABORATORYCLIA [id number] [address] OF [place] Platelets (Bld) [#/Vol] 145 10*3/uL Low 150-400 [facility] Comment on above: Order Comment: Speci men Type: BLOOD SPECIMENOrdering Facility: [facility] Address: [address] [place] [address] Performed By: #### 5 8410-2 ####[facility] LABORATORYCLIA [id number] [address] [place] RBC (Bld) [#/Vol] 4.03 10*6/uL Low 4.20-6.00 [facility] Comment on above: Order Comment: Speci men Type: BLOOD SPECIMENOrdering Facility: [facility] Address: [address] [place] [address] Performed By: #### 5 8410-2 ####[facility] LABORATORYCLIA [id number] [place] [id number] [facility] WBC (Bld) [#/Vol] 7.63 10*3/uL Normal 3.70-11.00 [facility] Comment on above: Order Comment: Speci men Type: BLOOD SPECIMENOrdering Facility: [facility] Address: [address] [place] [id number] Performed By: #### 5 8410-2 ####[facility] LABORATORYCLIA [id number] [place] [id number] [facility] CONSULT PROGon 05-30-2024 CONSULT PROG HNO ID: [id number] Author: AMRIT DEL VALLE MD Service: Infectious Disease Author Type: Physician Type: Consult Progress Note Filed: 06/01/2024 09:16 Note Text: INFECTIOUS DISEASE PROGRESS NOTE Patient Name: Yamilka Sharma INTERVAL HISTORY: Knee pain and swelling. No new complaints. Feels better. Leucocytosis resolved Patient Active Hospital Problem List: Osteomyelitis of great toe of right foot (HCC) (05/29/2024) Type 2 diabetes mellitus with diabetic nephropathy, without long-term current use of insulin ([facility]) (07/21/2017) Coronary artery disease involving [place] coronary artery of [place] heart without angina pectoris (11/01/2021) Hyperlipidemia, mixed (05/02/2022) Paroxysmal atrial fibrillation (HCC) (01/10/2023) Acute pain of left knee (05/13/2024) Acute medial meniscus tear (05/25/2024) Essential hypertension (05/26/2024) Simple chronic bronchitis ([facility]) (05/26/2024) Stage 3b chronic kidney disease ([facility]) (05/26/2024) Class 2 obesity due to excess calories with body mass index (BMI) of 35.0 to 35.9 in adult (05/27/2024) H/O insertion of central venous access port (05/29/2024) Hemarthrosis involving knee joint, left (05/30/2024) Physical debility (05/30/2024) Depression (05/30/2024) ASSESSMENT: Knee pain Possible early OM of foot, Cx w Strep group C, plus rare SCN, 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 Follow cultures Plan for PICC and IV abx at discharge based on cultures Ceftriaxone empirically Left knee corticosteroid injection contraindicated at this time due to active infection of right foot with plans for amputation of right great toe 2/2 osteomyelitis with podiatry on 05/30/24. Left knee aspiration performed for therapeutic purposes. MEDICATIONS: reviewed. Current Facility-Administered Medications Medication Dose Route Frequency acetaminophen 1,000 mg tab(s) (TYLENOL) 1,000 mg ORAL Q6H WHILE AWAKE lidocaine 4 % 1 Patch (SALONPAS) 1 Patch TRANSDERMAL DAILY AT 9 PM And lidocaine patch - REMOVE OTHER DAILY And lidocaine - VERIFY PATCH OTHER q 8 H insulin lispro injection (rapid acting) (ADMElog) SUBCUTANEOUS w MEALS insulin lispro injection (rapid acting) (ADMElog) SUBCUTANEOUS AT BEDTIME polyethylene glycol 3350 17 g packet 17 g ORAL DAILY PRN benzocaine-menthol 1 Lozenge (CEPACOL) 1 Lozenge MUCOUS MEMBRANE (TOPICAL MOUTH AND THROAT) q 2 H PRN benzonatate 100 mg cap(s) (TESSALON PERLE) 100 mg ORAL TID PRN calcium carbonate 1,000 mg chewable tab(s) (TUMS) 1,000 mg ORAL TID PRN prochlorperazine 10 mg injection (COMPAZINE) 10 mg INTRAVENOUS q 6 H PRN melatonin 3 mg tab(s) 3 mg ORAL AT BEDTIME PRN albuterol HFA 90 mcg/actuation 2 Puff (PROVENTIL HFA, VENTOLIN HFA) 2 Puff INHALATION q 4 H PRN allopurinol 100 mg tab(s) (ZYLOPRIM) 100 mg ORAL BID DULoxetine 60 mg cap(s) (CYMBALTA) 60 mg ORAL BID gabapentin 600 mg tab(s) (NEURONTIN) 600 mg ORAL TID lisinopril 5 mg tab(s) (ZESTRIL) 5 mg ORAL DAILY rosuvastatin 40 mg tab(s) (CRESTOR) 40 mg ORAL DAILY sodium bicarbonate 1,300 mg tab(s) 1,300 mg ORAL BID dextrose 40 % 15 g 15 g ORAL PRN Or glucagon 1 mg injection 1 mg INTRAMUSCULAR PRN Or dextrose 10% iv bolus 12.5 g INTRAVENOUS PRN NaCl 0.9% iv flush bag 20 mL INTRAVENOUS PRN simethicone, chewable 80 mg tab(s) (MYLICON) 80 mg ORAL QID PRN dilTIAZem CD 120 mg cap(s) (CARDIZEM CD, CARTIA XT) 120 mg ORAL DAILY metoprolol tartrate (short acting) 25 mg tab(s) (LOPRESSOR) 25 mg ORAL q 12 H furosemide 40 mg tab(s) (LASIX) 40 mg ORAL DAILY ceFAZolin iv piggyback 2 g in D5W (iso-osmotic) 100 mL (ANCEF) 2 g INTRAVENOUS q 8 H glimepiride 4 mg tab(s) (AMARYL) 4 mg ORAL BID w MEALS dapagliflozin propanediol 10 mg tab(s) (FARXIGA) 10 mg ORAL DAILY WITH BREAKFAST insulin glargine 10 Units pen (long acting) 10 Units SUBCUTANEOUS DAILY (8 AM) metFORMIN 500 mg tab(s) (GLUCOPHAGE) 500 mg ORAL BID w MEALS SITagliptin phosphate 50 mg tab(s) (JANUVIA) 50 mg ORAL DAILY oxyCODONE IR 10 mg tab(s) (ROXICODONE) 10 mg ORAL q 4 H PRN oxyCODONE IR 5 mg tab(s) (ROXICODONE) 5 mg ORAL q 4 H PRN HYDROmorphone 0.5 mg injection (DILAUDID) 0.5 mg INTRAVENOUS q 4 H PRN PHYSICAL EXAM: Vital signs: BP 106/58 Pulse 87 Temp 36.7 ?C (98.1 ?F) (Oral) Resp 16 Ht 182.9 cm (6') Wt 118 kg (260 lb 2.3 oz) SpO2 95% BMI 35.28 kg/m? Temp (73hrs), Av.7 ?C (98.1 ?F), Min:36.5 ?C (97.7 ?F), Max:37 ?C (98.6 ?F) General: alert, oriented, NAD Lungs: bilaterally clear to auscultation Heart: regular rate and rhythm Abdomen: soft, non tender, non distended, BS+ Extremities: foot dressing No rashes No joint inflammation Neck supple Lines ok No CVAT Lines, Drains, and Airways Line Duration Implanted Vascular Access Device Double Port 05/25/24 Right Chest 7 days Labs: Recent Labs 06/01/24 0533 05/31/24 0601 (more content not included)... [facility] CONSULT PROG HNO ID: [id number] Author: EPI POLANCO MD Service: Nephrology Author Type: Physician Type: Consult Progress Note Filed: 05/30/2024 08:58 Note Text: NEPHROLOGY CONSULT PROGRESS NOTE Subjective INTERVAL HISTORY: The patient was seen and examined . No acute event overnight. PERTINENT ROS: GENERAL: No fever/chills. RESPIRATORY: Negative for cough, wheezing or shortness of breath. CARDIOVASCULAR: Negative for chest pain or palpitations. GI: Negative for nausea, vomiting, Diarrhea, abdominal pain. : Negative for dysuria and hematuria MEDICATIONS: Current Facility-Administered Medications Medication Dose Route Frequency acetaminophen 1,000 mg tab(s) (TYLENOL) 1,000 mg ORAL Q6H WHILE AWAKE lidocaine 4 % 1 Patch (SALONPAS) 1 Patch TRANSDERMAL DAILY AT 9 PM And lidocaine patch - REMOVE OTHER DAILY And lidocaine - VERIFY PATCH OTHER q 8 H oxyCODONE IR 5 mg tab(s) (ROXICODONE) 5 mg ORAL q 6 H PRN HYDROmorphone 0.5 mg injection (DILAUDID) 0.5 mg INTRAVENOUS q 3 H PRN insulin lispro injection (rapid acting) (ADMElog) SUBCUTANEOUS w MEALS insulin lispro injection (rapid acting) (ADMElog) SUBCUTANEOUS AT BEDTIME polyethylene glycol 3350 17 g packet 17 g ORAL DAILY PRN benzocaine-menthol 1 Lozenge (CEPACOL) 1 Lozenge MUCOUS MEMBRANE (TOPICAL MOUTH AND THROAT) q 2 H PRN benzonatate 100 mg cap(s) (TESSALON PERLE) 100 mg ORAL TID PRN calcium carbonate 1,000 mg chewable tab(s) (TUMS) 1,000 mg ORAL TID PRN prochlorperazine 10 mg injection (COMPAZINE) 10 mg INTRAVENOUS q 6 H PRN melatonin 3 mg tab(s) 3 mg ORAL AT BEDTIME PRN albuterol HFA 90 mcg/actuation 2 Puff (PROVENTIL HFA, VENTOLIN HFA) 2 Puff INHALATION q 4 H PRN allopurinol 100 mg tab(s) (ZYLOPRIM) 100 mg ORAL BID DULoxetine 60 mg cap(s) (CYMBALTA) 60 mg ORAL BID gabapentin 600 mg tab(s) (NEURONTIN) 600 mg ORAL TID lisinopril 5 mg tab(s) (ZESTRIL) 5 mg ORAL DAILY rosuvastatin 40 mg tab(s) (CRESTOR) 40 mg ORAL DAILY sodium bicarbonate 1,300 mg tab(s) 1,300 mg ORAL BID dextrose 40 % 15 g 15 g ORAL PRN Or glucagon 1 mg injection 1 mg INTRAMUSCULAR PRN Or dextrose 10% iv bolus 12.5 g INTRAVENOUS PRN NaCl 0.9% iv flush bag 20 mL INTRAVENOUS PRN simethicone, chewable 80 mg tab(s) (MYLICON) 80 mg ORAL QID PRN dilTIAZem CD 120 mg cap(s) (CARDIZEM CD, CARTIA XT) 120 mg ORAL DAILY metoprolol tartrate (short acting) 25 mg tab(s) (LOPRESSOR) 25 mg ORAL q 12 H furosemide 40 mg tab(s) (LASIX) 40 mg ORAL DAILY ceFAZolin iv piggyback 2 g in D5W (iso-osmotic) 100 mL (ANCEF) 2 g INTRAVENOUS q 8 H oxyCODONE IR 10 mg tab(s) (ROXICODONE) 10 mg ORAL q 3 H PRN [START ON 05/31/2024] glimepiride 4 mg tab(s) (AMARYL) 4 mg ORAL BID w MEALS [START ON 05/31/2024] dapagliflozin propanediol 10 mg tab(s) (FARXIGA) 10 mg ORAL DAILY WITH BREAKFAST insulin glargine 10 Units pen (long acting) 10 Units SUBCUTANEOUS DAILY (8 AM) [START ON 05/31/2024] metFORMIN 500 mg tab(s) (GLUCOPHAGE) 500 mg ORAL BID w MEALS [START ON 05/31/2024] SITagliptin phosphate 50 mg tab(s) (JANUVIA) 50 mg ORAL DAILY Objective PHYSICAL EXAM: BP 98/62 Pulse 99 Temp 36.6 ?C (97.9 ?F) (Oral) Resp 16 Ht 182.9 cm (6') Wt 118 kg (260 lb 2.3 oz) SpO2 96% BMI 35.28 kg/m? Intake/Output Summary (Last 24 hours) at 05/30/2024 0857 Last data filed at 05/30/2024 0756 Gross per 24 hour Intake 950 ml Output 2550 ml Net -1600 ml GENERAL: NAD HEENT : NCAT, MMM and pink EYES: Conjunctiva -Pallor, Non icterus sclera. NECK: supple, No JVD, LUNGS: CTA without rales or wheeze, diminished breath sounds, CV: no murmurs, clicks, or gallops. ABDOMEN: soft, NT, BS normal EDEMA : no Lower extremity/ no Dependent edema DATA: Diagnostic tests reviewed for today's visit: Most recent labs and imaging results. Recent Labs 05/30/24 0558 05/29/24 0609 05/28/24 0517 WBC 7.63 9.34 13.67* HB 10.3* 10.6* 11.7* HCT 32.8* 33.9* 36.9* PLT 145* 158 185 NA 133* 134* 134* K 4.7 4.4 4.5 CHLOR 97* 98 98 CO2 28 26 25 BUN 60* 60* 61* CREAT 1.98* 2.04* 1.93* GLUC 132* 77 89 CA 8.8 8.7 8.5 Assessment/Plan 1. Chronic kidney disease Stage IIIb (baseline creatinine between 1.9 to 2.3 mg deciliter) likely in the setting of diabetic kidney disease 2. Status post fall 3. Left knee pain 4. Right. Knee pain 5. Type 2 diabetes 6. Hypertension 7. Atrial fibrillation 8. Coronary artery disease 9. Non-Hodgkin's lymphoma status post chemotherapy 3 years ago 10. Anemia 11. Hyperuricemia-uric acid 7.4 on 05/12/2024 12. Recent bilateral mild pelviectasis and hydroureter with concern for obstructive nephropathy and asymmetrical atrophy of left kidney Plan management --Serum creatinine decreased to 1.98 mg/dL. --All electrolytes and acid-base are in acceptable range. --Ultrasound atrophic left kidney with moderate left hydronephrosis similar to CT scan of 05/11/2024. Prior CT demonstrate postsurgical changes of left psoas hitch with ureter implantation. (more content not included)... Normal [facility] Microorganism Spec Culton Microorganism identified Cx Nom (Unsp spec) CULTURE, FUNGAL: No Fungus isolated after 28 days FUNGAL SMEAR: No fungus seen [facility] Comment on above: Performed By: #### 1 1475-1, 635-3, 11241-1 ####[facility] LABCLIA [id number] [place] [id number] [facility] Microorganism identified Cx Nom (Unsp spec) CULTURE, AFB: No Acid Fast Bacilli isolated after 42 days AFB STAIN: No acid fast bacilli seen by flurochrome stain [facility] Comment on above: Performed By: #### 1 1475-1, 635-3, 78174-3 ####[facility] LABCLIA [id number] [place] [address] [place] OPERATIVE NOon 05-30-2024 OPERATIVE NO HNO ID: [id number] Author: CHERELLE CAMPOS DPM Service: Podiatry Author Type: Physician Type: Operative Report Filed: 05/31/2024 14:41 Note Text: OPERATIVE/PROCEDURE REPORT LOG ID: [id number] SURGERY/PROCEDURE DATE: 05/30/2024 INCISION/PROCEDURE START TIME: 12:43 PM INCISION CLOSE/PROCEDURE END TIME: 1:19 PM PRE-OP/PRE-PROCEDURE DIAGNOSIS: skin ulcer right great toe to bone, OM, right great toe abscess, right foot cellulitis, dm foot ulcer, Dm II POST-OP/POST-PROCEDURE DIAGNOSIS: Same as Preop, septic hallux IPJ SURGERY/PROCEDURE(S): R great toe amputation at MTPJ IANDD R foot deep multiple areas level of bone sharp excisional nonselective debridement into level of bone (post debridement 7 x 3 x 2 cm) Bone biopsy RIGHT first met head SURGEON(S)/PROCEDURALIST (S) AND MARKET MANAGER(S): Surgeon(s) and Role: * Cherelle Campos DPM - Primary * Ana Mccord DPM - Resident - Assisting * Brody Mendez DPM - Resident - Assisting Registered Nurse Bench Mechanic: Misa Cifuentes RN ANESTHESIA: Monitored Anesthesia Care ESTIMATED BLOOD LOSS: 20cc SPECIMENS: RT hallux to path, right first metatarsal bone to path and micro post lavage and swab post lavage to micro DRAINS: none COMPLICATIONS: none SURGERY/PROCEDURE DETAILS: INDICATIONS FOR PROCEDURE: The patient was seen in the hospital for worsening R great toe infection and wound. Patient is noted to have had bone infection to the great toe seen on imaging. Discussed conservative and surgical options. I discussed likely he needs Right great toe total amputation given the location of wound at the IPJ and suspicious mri including jazz signal intensity extending to the proximal phalanx. I discussed the possiblity of needing a staged procedure and possibly a pICC line. Discussed IV antibiotics and wound care vs amputation with patient. Discussed all risks and benefits of all options. All questions were answered. Patient elects to proceed with amputation. The patient had all risks, benefits, alternatives, and complications including, but not limited to infection, delayed healing, nonhealing, need for further surgery, or amputation discussed with the patient. No guarantees were given or implied. The patient agreed to proceed with procedure. DESCRIPTION OF PROCEDURE: Patient was seen in the preoperative holding area where the chart was reviewed and patient was examined and all questions were answered to patient's satisfaction. The patient was then transferred to the OR in the supine position. After administration of anesthesia, an additional 10mL of bupivacaine plain was injected in a digital block type fashion to patient's R great toe. A well-padded ankle tourniquet was applied to R ankle but not inflated at this time. The operative foot and ankle were then prepped and draped in usual sterile fashion. An esmarch was used to exanguinate the foot and the tourniquet was inflated. Attention was then directed to the R great toe where a skin marker was utilized to draw out a dorsal medial racquet type incision encompassing the R great toe including any ulceration and poor tissue for amputation. Incision was then carried out with a #15 blade down to the level of bone with all vital neurovascular structures retracted or cauterized as necessary. The operative toe was disarticulated at the level of the metatarsal phalangeal joint and was removed from the field as specimen. The was pus at initial incision and surrounding the IPJ indicating a likely septic joint finidngs. THere was deviatlzed sloughing tissue extending to base of toe. Site was further examined. A 15 blade, pickups, and Morris elevator were utilized in order to assess the site for any signs of infection or abscess in multiple places deep to the level of fascia. A combination of a curette, pickups, #15 blade, and bone rongeur were utilized to perform sharp excisional nonselective debridement of the ulcer into level of BONE with removal of devitalized and necrotic tissue. Pre debridement measures 6 x 2 x 1 cm and post debridement measures 7 x 3 x 2 cm to level of bone. The remaining wound bed was healthy in appearance with appropriate bleeding. There was no abscess or purulent drainage noted proximal to metatarsal head. We cut the flexor and extensor tendons as proximal as possible with 15 blade. No signs of infection were present past level of met head post debridement Site was then flushed with copious amounts of normal sterile saline utilizing a pulse lavage. After this was done, clean instrumentation was swapped out along with clean gloves. Post lavage swab culture was obtained and bone biopsy of R 1st met head was obtained with rongeur [facility] There was pus on incision at IPJ. In pre op, I had discussed he will likely need a total RT great toe amputation vs a partial, based on intra-op findings. There was a septic IPJ intra-op, therefor (more content not included)... Normal [facility] SURGICAL PATHOLOGYon CASE REPORT [facility] Comment on above: Order Comment: Speci men Type: TISSUE SPECIMENOrdering Facility: [facility] Address: [address] [place] [address] Result Comment: Surg [facility] Pathology Report Case: [id number] Authorizing Provider: Cherelle Campos DPM Collected: 05/30/2024 12:44 PM Ordering Location: [facility] Surgery Received: 05/30/2024 03:00 PM Pathologist: Jared Mckay MD Specimens: A) - Digit, Right Foot, First B) - Bone, Resection, right foot 1st metatarsal bone resection Performed By: #### S ####[facility] LABORATORYCLIA [id number] [place] [address] [facility] LABCLIA [id number] [address] [place] CLINICAL HISTORY [facility] Comment on above: Order Comment: Speci men Type: TISSUE SPECIMENOrdering Facility: [facility] Address: [address] [place] [address] Result Comment: Pre- op diagnosis: Osteomyelitis of right foot (HCC) [M86.9] Performed By: #### S ####[facility] [id number] [place] [address] [facility] LABCLIA [id number] [address] OF [place] FINAL DIAGNOSIS [facility] Comment on above: Order Comment: Speci men Type: TISSUE SPECIMENOrdering Facility: [facility] Address: [address] [place] [address] Result Comment: A. F irst digit, right foot, amputation: - Skin and soft tissue with ulcer and abscess. - Acute osteomyelitis. B. First metatarsal, right foot, excision: - Fragments of unremarkable articular cartilage. Performed By: #### S ####[facility]ENTERIA [id number] [place] [id number] [facility] LABCLIA [id number] [address] FINAL PERFORMING LAB Normal [facility] Comment on above: Order Comment: Speci men Type: TISSUE SPECIMENOrdering Facility: [facility] Address: [address] [place] [address] Result Comment: Diag nostic interpretation performed at [facility], [address] [place] [address] CLIA# [id number] Medical Office Representative: Suleiman Tolliver M.D. Performed By: #### S ####[facility] [id number] [place] [id number] [facility] LABCLIA [id number] [address] [place] GROSS DESCRIPTION [facility] Comment on above: Order Comment: Speci men Type: TISSUE SPECIMENOrdering Facility: [facility] Address: [address] [place] [address] Result Comment: A. D igit, Right Foot, First Received in formalin labeled digit, right foot, first is a disarticulated digit measuring 6.6 x 3.8 x 3.3 cm. The skin surface is lightly pigmented and flaking. There is a circumscribed, round, firm ulcer measuring 1.3 x 1 cm. The ulcer erodes into the subcutaneous tissue and softens the underlying bone. There is no nail. A telecommunications sales representative section demonstrating ulcer, subcutaneous tissue, and softened bone are submitted in cassette A1 after light decalcification in formic acid. [facility] May 31, 2024 10:16 AM Gross examination performed at [facility], [address] [place] [address] CLIA# [id number] B. Bone, Resection Received in formalin labeled right foot first metatarsal bone resection are 2 irregularly the shaped, gomez-white, firm bone fragments aggregating to 0.5 x 0.2 x 0.2 cm. Entirely submitted in cassette B1 after light decalcification in formic acid. [facility] May 31, 2024 10:11 AM Gross examination performed at [facility], [address] [place], [place] [address] CLIA# [id number] Performed By: #### S ####[facility] LABORATORYCLIA [id number] [place] [address] [place] [facility] LABCLIA [id number] [place] [address] [place] Basic metabolic 2000 panelon 05-29-2024 Anion gap [Moles/Vol] 10 mmol/L Normal 8-15 [facility] Comment on above: Order Comment: Speci men Type: BLOOD SPECIMENOrdering Facility: [facility] Address: [address] [place] [address] Performed By: #### 2 4321-2 ####[facility] LABORATORYCLIA [id number] [place] [address] [place] Calcium [Mass/Vol] 8.7 mg/dL Normal 8.5-10.2 [facility] Comment on above: Order Comment: Speci men Type: BLOOD SPECIMENOrdering Facility: [facility] Address: [address] [place] [address] Performed By: #### 2 4321-2 ####[facility]ORATORYCLIA [id number] [place] [address] [place] Chloride [Moles/Vol] 98 mmol/L Normal 98-107 [facility] Comment on above: Order Comment: Speci men Type: BLOOD SPECIMENOrdering Facility: [facility] Address: [address] [place] [address] Performed By: #### 2 4321-2 ####[facility] LABORATORYCLIA [id number] [place] [id number] [place] CO2 [Moles/Vol] 26 mmol/L Normal 22-30 [facility] Comment on above: Order Comment: Raghui men Type: BLOOD SPECIMENOrdering Facility: [facility] Address: [address] [place] [address] Performed By: #### 2 4321-2 ####[facility]ORATORYCLIA [id number] [place] [address] [place] Creatinine [Mass/Vol] 2.04 mg/dL High 0.73-1.22 [facility] Comment on above: Order Comment: Speci men Type: BLOOD SPECIMENOrdering Facility: [facility] Address: [address] [place] [address] Performed By: #### 2 4321-2 ####[facility] LABORATORYCLIA [id number] [address] Creatinine and Glomerular filtration rate.predicted panel (S/P/Bld) 37 mL/min/1.73m??? Low >=60 [facility] Comment on above: Order Comment: Santo malik Type: BLOOD SPECIMENOrdering Facility: [facility] Address: [address] [place] [address] Result Comment: Karissa mated Glomerular Filtration Rate (eGFR) is calculated using the 2020 CKD-EPI creatinine equation. This equation utilizes serum creatinine, sex, and age as parameters. The creatinine assay has traceable calibration to isotope dilution-mass spectrometry. Refer to KDIGO guidelines for clinical interpretation. In patients with unstable renal function, e.g. those with acute kidney injury, the eGFR may not accurately reflect actual GFR. Performed By: #### 2 4321-2 ####[facility] LABORATORYCLIA [id number] [place] [address] [place] Glucose [Mass/Vol] 77 mg/dL Normal 74-99 [facility] Comment on above: Order Comment: Santo malik Type: BLOOD SPECIMENOrdering Facility: [facility] Address: [address] [place] [address] Result Comment: The [place] [employer] (ADA) provides guidance for cutoff values for fasting glucose and random glucose. The ADA defines fasting as no caloric intake for at least 8 hours. Fasting plasma glucose results between 100 to 125 mg/dL indicate increased risk for diabetes (prediabetes). Fasting plasma glucose results greater than or equal to 126 mg/dL meet the criteria for diagnosis of diabetes. In the absence of unequivocal hyperglycemia, results should be confirmed by repeat testing. In a patient with classic symptoms of hyperglycemia or hyperglycemic crisis, random plasma glucose results greater than or equal to 200 mg/dL meet the criteria for diagnosis of diabetes. Reference: Standards of Medical Care in Diabetes 2016, [place] [employer]. Diabetes Care. 2016.39(Suppl 1). Performed By: #### 2 4321-2 ####[facility] LABORATORYCLIA [id number] [place] [address] [place] Potassium [Moles/Vol] 4.4 mmol/L Normal 3.7-5.1 [facility] Comment on above: Order Comment: Santo malik Type: BLOOD SPECIMENOrdering Facility: [facility] Address: [address] [place] [address] Performed By: #### 2 4321-2 ####[facility] LABORATORYCLIA [id number] [place] [id number] [place] Sodium [Moles/Vol] 134 mmol/L Low 136-144 [facility] Comment on above: Order Comment: Raghui men Type: BLOOD SPECIMENOrdering Facility: [facility] Address: [address] [place] [address] Performed By: #### 2 4321-2 ####[facility] LABORATORYCLIA [id number] [place] [id number] [place] Urea nitrogen [Mass/Vol] 60 mg/dL High 9-24 [facility] Comment on above: Order Comment: Speci men Type: BLOOD SPECIMENOrdering Facility: [facility] Address: [address] [place] [address] Performed By: #### 2 4321-2 ####[facility] LABORATORYCLIA [id number] [address] CBC panel Auto (Bld)on 05-29 Erythrocyte distribution width (RBC) [Ratio] 14.6 % Normal 11.5-15.0 [facility] Comment on above: Order Comment: Speci men Type: BLOOD SPECIMENOrdering Facility: [facility] Address: [address] [place] [address] Performed By: #### 5 8410-2 ####[facility] LABORATORYCLIA [id number] [address] [place] Hematocrit (Bld) [Volume fraction] 33.9 % Low 39.0-51.0 [facility] Comment on above: Order Comment: Speci men Type: BLOOD SPECIMENOrdering Facility: [facility] Address: [address] [place] [address] Performed By: #### 5 8410-2 ####[facility] LABORATORYCLIA [id number] [address] [place] Hemoglobin (Bld) [Mass/Vol] 10.6 g/dL Low 13.0-17.0 [facility] Comment on above: Order Comment: Speci men Type: BLOOD SPECIMENOrdering Facility: [facility] Address: [address] [place] [address] Performed By: #### 5 8410-2 ####[facility] LABORATORYCLIA [id number] [address] [place] MCH (RBC) [Entitic mass] 25.4 pg Low 26.0-34.0 [facility] Comment on above: Order Comment: Speci men Type: BLOOD SPECIMENOrdering Facility: [facility] Address: [address] [place] [address] Performed By: #### 5 8410-2 ####[facility] LABORATORYCLIA [id number] [address] MCHC (RBC) [Mass/Vol] 31.3 g/dL Normal 30.5-36.0 [facility] Comment on above: Order Comment: Speci men Type: BLOOD SPECIMENOrdering Facility: [facility] Address: [address] [place] [address] Performed By: #### 5 8410-2 ####BRE[facility] LABORATORYCLIA [id number] [address] [place] MCV (RBC) [Entitic vol] 81.3 fL Normal 80.0-100.0 M [facility] Comment on above: Order Comment: Speci men Type: BLOOD SPECIMENOrdering Facility: [facility] Address: [address] [place] [address] Performed By: #### 5 8410-2 ####[facility] LABORATORYCLIA [id number] [address] [place] Nucleated RBC (Bld) [#/Vol] 10*3/uL Normal <0.01 [facility] Comment on above: Order Comment: Speci men Type: BLOOD SPECIMENOrdering Facility: [facility] Address: [address] [place] [address] Performed By: #### 5 8410-2 ####[facility] LABORATORYCLIA [id number] [address] [place] Platelet mean volume (Bld) [Entitic vol] 11.1 fL Normal 9.0-12.7 [facility] Comment on above: Order Comment: Speci men Type: BLOOD SPECIMENOrdering Facility: [facility] Address: [address] [place] [address] Performed By: #### 5 8410-2 ####BRE[facility] LABORATORYCLIA [id number] [place] [address] [place] Platelets (Bld) [#/Vol] 158 10*3/uL Normal 150-400 [facility] Comment on above: Order Comment: Speci men Type: BLOOD SPECIMENOrdering Facility: [facility] Address: [address] [place] [address] Performed By: #### 5 8410-2 ####BRE[facility] LABORATORYCLIA [id number] [place] [address] [place] RBC (Bld) [#/Vol] 4.17 10*6/uL Low 4.20-6.00 [facility] Comment on above: Order Comment: Speci men Type: BLOOD SPECIMENOrdering Facility: [facility] Address: [address] [place] [address] Performed By: #### 5 8410-2 ####BRE[facility] LABORATORYCLIA [id number] [address] WBC (Bld) [#/Vol] 9.34 10*3/uL Normal 3.70-11.00 [facility] Comment on above: Order Comment: Speci men Type: BLOOD SPECIMENOrdering Facility: [facility] Address: [address] [place] [address] Performed By: #### 5 8410-2 ####BRE[facility] LABORATORYCLIA [id number] [address] CONSULT PROGon 05-29-2024 CONSULT PROG HNO ID: [id number] Author: AMRIT DEL VALLE MD Service: Infectious Disease Author Type: Physician Type: Consult Progress Note Filed: 05/29/2024 17:40 Note Text: INFECTIOUS DISEASE PROGRESS NOTE Patient Name: Yamilka Sharma INTERVAL HISTORY: Knee pain and swelling. No new complaints. Feels better. 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 Follow cultures Plan for PICC and IV abx at discharge based on cultures Ceftriaxone empirically Left knee corticosteroid injection contraindicated at this time due to active infection of right foot with plans for amputation of right great toe 2/2 osteomyelitis with podiatry on 05/30/24. Left knee aspiration performed for therapeutic purposes. MEDICATIONS: reviewed. Current Facility-Administered Medications Medication Dose Route Frequency acetaminophen 1,000 mg tab(s) (TYLENOL) 1,000 mg ORAL Q6H WHILE AWAKE lidocaine 4 % 1 Patch (SALONPAS) 1 Patch TRANSDERMAL DAILY AT 9 PM And lidocaine patch - REMOVE OTHER DAILY And lidocaine - VERIFY PATCH OTHER q 8 H oxyCODONE IR 5 mg tab(s) (ROXICODONE) 5 mg ORAL q 6 H PRN HYDROmorphone 0.5 mg injection (DILAUDID) 0.5 mg INTRAVENOUS q 3 H PRN insulin lispro injection (rapid acting) (ADMElog) SUBCUTANEOUS w MEALS insulin lispro injection (rapid acting) (ADMElog) SUBCUTANEOUS AT BEDTIME polyethylene glycol 3350 17 g packet 17 g ORAL DAILY PRN benzocaine-menthol 1 Lozenge (CEPACOL) 1 Lozenge MUCOUS MEMBRANE (TOPICAL MOUTH AND THROAT) q 2 H PRN benzonatate 100 mg cap(s) (TESSALON PERLE) 100 mg ORAL TID PRN calcium carbonate 1,000 mg chewable tab(s) (TUMS) 1,000 mg ORAL TID PRN prochlorperazine 10 mg injection (COMPAZINE) 10 mg INTRAVENOUS q 6 H PRN melatonin 3 mg tab(s) 3 mg ORAL AT BEDTIME PRN albuterol HFA 90 mcg/actuation 2 Puff (PROVENTIL HFA, VENTOLIN HFA) 2 Puff INHALATION q 4 H PRN allopurinol 100 mg tab(s) (ZYLOPRIM) 100 mg ORAL BID DULoxetine 60 mg cap(s) (CYMBALTA) 60 mg ORAL BID gabapentin 600 mg tab(s) (NEURONTIN) 600 mg ORAL TID lisinopril 5 mg tab(s) (ZESTRIL) 5 mg ORAL DAILY rosuvastatin 40 mg tab(s) (CRESTOR) 40 mg ORAL DAILY sodium bicarbonate 1,300 mg tab(s) 1,300 mg ORAL BID dextrose 40 % 15 g 15 g ORAL PRN Or glucagon 1 mg injection 1 mg INTRAMUSCULAR PRN Or dextrose 10% iv bolus 12.5 g INTRAVENOUS PRN NaCl 0.9% iv flush bag 20 mL INTRAVENOUS PRN simethicone, chewable 80 mg tab(s) (MYLICON) 80 mg ORAL QID PRN dilTIAZem CD 120 mg cap(s) (CARDIZEM CD, CARTIA XT) 120 mg ORAL DAILY metoprolol tartrate (short acting) 25 mg tab(s) (LOPRESSOR) 25 mg ORAL q 12 H furosemide 40 mg tab(s) (LASIX) 40 mg ORAL DAILY ceFAZolin iv piggyback 2 g in D5W (iso-osmotic) 100 mL (ANCEF) 2 g INTRAVENOUS q 8 H oxyCODONE IR 10 mg tab(s) (ROXICODONE) 10 mg ORAL q 3 H PRN [START ON 05/31/2024] glimepiride 4 mg tab(s) (AMARYL) 4 mg ORAL BID w MEALS [START ON 05/31/2024] dapagliflozin propanediol 10 mg tab(s) (FARXIGA) 10 mg ORAL DAILY WITH BREAKFAST [START ON 05/30/2024] insulin glargine 10 Units pen (long acting) 10 Units SUBCUTANEOUS DAILY (8 AM) [START ON 05/31/2024] metFORMIN 500 mg tab(s) (GLUCOPHAGE) 500 mg ORAL BID w MEALS [START ON 05/31/2024] SITagliptin phosphate 50 mg tab(s) (JANUVIA) 50 mg ORAL DAILY PHYSICAL EXAM: Vital signs: BP 94/56 Pulse 98 Temp 37 ?C (98.6 ?F) (Temporal Artery) Resp 16 Ht 182.9 cm (6') Wt 118 kg (260 lb 2.3 oz) SpO2 95% BMI 35.28 kg/m? Temp (24hrs), Av.9 ?C (98.4 ?F), Min:36.8 ?C (98.2 ?F), Max:37 ?C (98.6 ?F) General: alert, oriented, NAD Lungs: bilaterally clear to auscultation Heart: regular rate and rhythm Abdomen: soft, non tender, non distended, BS+ Extremities: foot dressing No rashes No joint inflammation Neck supple Lines ok No CVAT Lines, Drains, and Airways Line Duration Implanted Vascular Access Device Double Port 05/25/24 Right Chest 4 days Labs: Recent Labs 05/29/24 0609 05/28/24 0832 05/28/24 0517 05/27/24 0623 WBC 9.34 -- 13.67* 11.27* HB 10.6* -- 11.7* 11.7* PLT 158 -- 185 182 NA 134* -- 134* 134* K 4.4 -- 4.5 4.7 CO2 26 -- 25 26 BUN 60* -- 61* 65* CREAT 2.04* -- 1.93* 2.10* LACT -- 0.9 -- -- Microbiology data: reviewed (more content not included)... Normal [facility] Bacteria Bld Culton 05-28-20 24 Bacteria identified Cx Nom (Bld) CULTURE, BLOOD: No growth 5 days Normal [facility] Comment on above: Performed By: #### 6 00-7 ####[facility] LABCLIA [id number] [address] [address] [place] Bacteria identified Cx Nom (Bld) CULTURE, BLOOD: No growth 5 days Normal [facility] Comment on above: Performed By: #### 6 00-7 ####[facility] LABCLIA [id number] [place] [id number] [place] Basic metabolic 2000 panelon 05-28-2024 Anion gap [Moles/Vol] 11 mmol/L Normal 8-15 [facility] Comment on above: Order Comment: Speci men Type: BLOOD SPECIMENOrdering Facility: [facility] Address: [address] [place] [address] Performed By: #### 2 4321-2 ####[facility] LABORATORYCLIA [id number] [place] [address] [place] Calcium [Mass/Vol] 8.5 mg/dL Normal 8.5-10.2 [facility] Comment on above: Order Comment: Speci men Type: BLOOD SPECIMENOrdering Facility: [facility] Address: [address] [place] [address] Performed By: #### 2 4321-2 ####BRE[facility] LABORATORYCLIA [id number] [address] Chloride [Moles/Vol] 98 mmol/L Normal 98-107 [facility] Comment on above: Order Comment: Speci men Type: BLOOD SPECIMENOrdering Facility: [facility] Address: [address] [place] [address] Performed By: #### 2 4321-2 ####[facility] LABORATORYCLIA [id number] [place] [address] [place] CO2 [Moles/Vol] 25 mmol/L Normal 22-30 [facility] Comment on above: Order Comment: Speci men Type: BLOOD SPECIMENOrdering Facility: [facility] Address: [address] [place] [address] Performed By: #### 2 4321-2 ####[facility] LABORATORYCLIA [id number] [address] Creatinine [Mass/Vol] 1.93 mg/dL High 0.73-1.22 [facility] Comment on above: Order Comment: Speci men Type: BLOOD SPECIMENOrdering Facility: [facility] Address: [address] [place] [address] Performed By: #### 2 4321-2 ####[facility] LABORATORYCLIA [id number] [address] Creatinine and Glomerular filtration rate.predicted panel (S/P/Bld) 39 mL/min/1.73m??? Low >=60 [facility] Comment on above: Order Comment: Speci men Type: BLOOD SPECIMENOrdering Facility: [facility] Address: [address] [place] [address] Result Comment: Karissa mated Glomerular Filtration Rate (eGFR) is calculated using the 2020 CKD-EPI creatinine equation. This equation utilizes serum creatinine, sex, and age as parameters. The creatinine assay has traceable calibration to isotope dilution-mass spectrometry. Refer to KDIGO guidelines for clinical interpretation. In patients with unstable renal function, e.g. those with acute kidney injury, the eGFR may not accurately reflect actual GFR. Performed By: #### 2 4321-2 ####[facility] LABORATORYCLIA [id number] [place] [address] [place] Glucose [Mass/Vol] 89 mg/dL Normal 74-99 [facility] Comment on above: Order Comment: Santo malik Type: BLOOD SPECIMENOrdering Facility: [facility] Address: [address] [place] [address] Result Comment: The [place] [employer] (ADA) provides guidance for cutoff values for fasting glucose and random glucose. The ADA defines fasting as no caloric intake for at least 8 hours. Fasting plasma glucose results between 100 to 125 mg/dL indicate increased risk for diabetes (prediabetes). Fasting plasma glucose results greater than or equal to 126 mg/dL meet the criteria for diagnosis of diabetes. In the absence of unequivocal hyperglycemia, results should be confirmed by repeat testing. In a patient with classic symptoms of hyperglycemia or hyperglycemic crisis, random plasma glucose results greater than or equal to 200 mg/dL meet the criteria for diagnosis of diabetes. Reference: Standards of Medical Care in Diabetes 2016, [place] [employer]. Diabetes Care. 2016.39(Suppl 1). Performed By: #### 2 4321-2 ####[facility] LABORATORYCLIA [id number] [place] [address] [place] Potassium [Moles/Vol] 4.5 mmol/L Normal 3.7-5.1 [facility] Comment on above: Order Comment: Santo malik Type: BLOOD SPECIMENOrdering Facility: [facility] Address: [address] [place] [address] Performed By: #### 2 4321-2 ####[facility] LABORATORYCLIA [id number] [place] [id number] [place] Sodium [Moles/Vol] 134 mmol/L Low 136-144 [facility] Comment on above: Order Comment: Santo malik Type: BLOOD SPECIMENOrdering Facility: [facility] Address: [address] [place] [address] Performed By: #### 2 4321-2 ####[facility] LABORATORYCLIA [id number] [place] [address] [place] Urea nitrogen [Mass/Vol] 61 mg/dL High 9-24 [facility] Comment on above: Order Comment: Speci men Type: BLOOD SPECIMENOrdering Facility: [facility] Address: [address] [place] [address] Performed By: #### 2 4321-2 ####[facility] LABORATORYCLIA [id number] [address] [place] [facility] CBC panel Auto (Bld)on 05-28 Erythrocyte distribution width (RBC) [Ratio] 14.6 % Normal 11.5-15.0 [facility] Comment on above: Order Comment: Speci men Type: BLOOD SPECIMENOrdering Facility: [facility] Address: [address] [place] [address] Performed By: #### 5 8410-2 ####[facility] LABORATORYCLIA [id number] [address] Hematocrit (Bld) [Volume fraction] 36.9 % Low 39.0-51.0 [facility] Comment on above: Order Comment: Speci men Type: BLOOD SPECIMENOrdering Facility: [facility] Address: [address] [place] [address] Performed By: #### 5 8410-2 ####[facility] LABORATORYCLIA [id number] [address] [place] [facility] Hemoglobin (Bld) [Mass/Vol] 11.7 g/dL Low 13.0-17.0 [facility] Comment on above: Order Comment: Speci men Type: BLOOD SPECIMENOrdering Facility: [facility] Address: [address] [place] [address] Performed By: #### 5 8410-2 ####[facility] LABORATORYCLIA [id number] [address] [place] [facility] MCH (RBC) [Entitic mass] 25.9 pg Low 26.0-34.0 [facility] Comment on above: Order Comment: Speci men Type: BLOOD SPECIMENOrdering Facility: [facility] Address: [address] [place] [address] Performed By: #### 5 8410-2 ####[facility] LABORATORYCLIA [id number] [place] [address] [place] MCHC (RBC) [Mass/Vol] 31.7 g/dL Normal 30.5-36.0 [facility] Comment on above: Order Comment: Speci men Type: BLOOD SPECIMENOrdering Facility: [facility] Address: [address] [place] [address] Performed By: #### 5 8410-2 ####[facility] LABORATORYCLIA [id number] [place] [address] [place] MCV (RBC) [Entitic vol] 81.6 fL Normal 80.0-100.0 M [facility] Comment on above: Order Comment: Speci men Type: BLOOD SPECIMENOrdering Facility: [facility] Address: [address] [place] [address] Performed By: #### 5 8410-2 ####[facility] LABORATORYCLIA [id number] [address] [place] Nucleated RBC (Bld) [#/Vol] 10*3/uL Normal <0.01 [facility] Comment on above: Order Comment: Speci men Type: BLOOD SPECIMENOrdering Facility: [facility] Address: [address] [place] [address] Performed By: #### 5 8410-2 ####[facility] LABORATORYCLIA [id number] [place] [address] [place] Platelet mean volume (Bld) [Entitic vol] 10.6 fL Normal 9.0-12.7 [facility] Comment on above: Order Comment: Speci men Type: BLOOD SPECIMENOrdering Facility: [facility] Address: [address] [place] [address] Performed By: #### 5 8410-2 ####[facility] LABORATORYCLIA [id number] [place] [address] [place] Platelets (Bld) [#/Vol] 185 10*3/uL Normal 150-400 [facility] Comment on above: Order Comment: Speci men Type: BLOOD SPECIMENOrdering Facility: [facility] Address: [address] [place] [address] Performed By: #### 5 8410-2 ####[facility] LABORATORYCLIA [id number] [place] [address] [place] RBC (Bld) [#/Vol] 4.52 10*6/uL Normal 4.20-6.00 [facility] Comment on above: Order Comment: Speci men Type: BLOOD SPECIMENOrdering Facility: [facility] Address: [address] [place] [address] Performed By: #### 5 8410-2 ####[facility]ORATORYCLIA [id number] [place] [address] [place] WBC (Bld) [#/Vol] 13.67 10*3/uL High 3.70-11.00 [facility] Comment on above: Order Comment: Speci men Type: BLOOD SPECIMENOrdering Facility: [facility] Address: [address] [place] [address] Performed By: #### 5 8410-2 ####[facility]ORATORYCLIA [id number] [address] CONSULT PROGon 05-28-2024 CONSULT PROG HNO ID: [id number] Author: AMRIT DEL VALLE MD Service: Infectious Disease Author Type: Physician Type: Consult Progress Note Filed: 05/29/2024 17:39 Note Text: INFECTIOUS DISEASE PROGRESS NOTE Patient Name: Yamilka Sharma INTERVAL HISTORY: Knee pain and swelling. No new complaints. 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 Follow cultures Plan for PICC and IV abx at discharge based on cultures Ceftriaxone empirically Left knee corticosteroid injection contraindicated at this time due to active infection of right foot with plans for amputation of right great toe 2/2 osteomyelitis with podiatry on 05/30/24. Left knee aspiration performed for therapeutic purposes. MEDICATIONS: reviewed. Current Facility-Administered Medications Medication Dose Route Frequency acetaminophen 1,000 mg tab(s) (TYLENOL) 1,000 mg ORAL Q6H WHILE AWAKE lidocaine 4 % 1 Patch (SALONPAS) 1 Patch TRANSDERMAL DAILY AT 9 PM And lidocaine patch - REMOVE OTHER DAILY And lidocaine - VERIFY PATCH OTHER q 8 H oxyCODONE IR 5 mg tab(s) (ROXICODONE) 5 mg ORAL q 6 H PRN HYDROmorphone 0.5 mg injection (DILAUDID) 0.5 mg INTRAVENOUS q 3 H PRN insulin lispro injection (rapid acting) (ADMElog) SUBCUTANEOUS w MEALS insulin lispro injection (rapid acting) (ADMElog) SUBCUTANEOUS AT BEDTIME polyethylene glycol 3350 17 g packet 17 g ORAL DAILY PRN benzocaine-menthol 1 Lozenge (CEPACOL) 1 Lozenge MUCOUS MEMBRANE (TOPICAL MOUTH AND THROAT) q 2 H PRN benzonatate 100 mg cap(s) (TESSALON PERLE) 100 mg ORAL TID PRN calcium carbonate 1,000 mg chewable tab(s) (TUMS) 1,000 mg ORAL TID PRN prochlorperazine 10 mg injection (COMPAZINE) 10 mg INTRAVENOUS q 6 H PRN melatonin 3 mg tab(s) 3 mg ORAL AT BEDTIME PRN albuterol HFA 90 mcg/actuation 2 Puff (PROVENTIL HFA, VENTOLIN HFA) 2 Puff INHALATION q 4 H PRN allopurinol 100 mg tab(s) (ZYLOPRIM) 100 mg ORAL BID DULoxetine 60 mg cap(s) (CYMBALTA) 60 mg ORAL BID gabapentin 600 mg tab(s) (NEURONTIN) 600 mg ORAL TID lisinopril 5 mg tab(s) (ZESTRIL) 5 mg ORAL DAILY rosuvastatin 40 mg tab(s) (CRESTOR) 40 mg ORAL DAILY sodium bicarbonate 1,300 mg tab(s) 1,300 mg ORAL BID dextrose 40 % 15 g 15 g ORAL PRN Or glucagon 1 mg injection 1 mg INTRAMUSCULAR PRN Or dextrose 10% iv bolus 12.5 g INTRAVENOUS PRN NaCl 0.9% iv flush bag 20 mL INTRAVENOUS PRN simethicone, chewable 80 mg tab(s) (MYLICON) 80 mg ORAL QID PRN dilTIAZem CD 120 mg cap(s) (CARDIZEM CD, CARTIA XT) 120 mg ORAL DAILY metoprolol tartrate (short acting) 25 mg tab(s) (LOPRESSOR) 25 mg ORAL q 12 H furosemide 40 mg tab(s) (LASIX) 40 mg ORAL DAILY ceFAZolin iv piggyback 2 g in D5W (iso-osmotic) 100 mL (ANCEF) 2 g INTRAVENOUS q 8 H oxyCODONE IR 10 mg tab(s) (ROXICODONE) 10 mg ORAL q 3 H PRN [START ON 05/31/2024] glimepiride 4 mg tab(s) (AMARYL) 4 mg ORAL BID w MEALS [START ON 05/31/2024] dapagliflozin propanediol 10 mg tab(s) (FARXIGA) 10 mg ORAL DAILY WITH BREAKFAST [START ON 05/30/2024] insulin glargine 10 Units pen (long acting) 10 Units SUBCUTANEOUS DAILY (8 AM) [START ON 05/31/2024] metFORMIN 500 mg tab(s) (GLUCOPHAGE) 500 mg ORAL BID w MEALS [START ON 05/31/2024] SITagliptin phosphate 50 mg tab(s) (JANUVIA) 50 mg ORAL DAILY PHYSICAL EXAM: Vital signs: BP 94/56 Pulse 98 Temp 37 ?C (98.6 ?F) (Temporal Artery) Resp 16 Ht 182.9 cm (6') Wt 118 kg (260 lb 2.3 oz) SpO2 95% BMI 35.28 kg/m? Temp (24hrs), Av.9 ?C (98.4 ?F), Min:36.8 ?C (98.2 ?F), Max:37 ?C (98.6 ?F) General: alert, oriented, NAD Lungs: bilaterally clear to auscultation Heart: regular rate and rhythm Abdomen: soft, non tender, non distended, BS+ Extremities: foot dressing No rashes No joint inflammation Neck supple Lines ok No CVAT Lines, Drains, and Airways Line Duration Implanted Vascular Access Device Double Port 05/25/24 Right Chest 4 days Labs: Recent Labs 05/29/24 0609 05/28/24 0832 05/28/24 0517 05/27/24 0623 WBC 9.34 -- 13.67* 11.27* HB 10.6* -- 11.7* 11.7* PLT 158 -- 185 182 NA 134* -- 134* 134* K 4.4 -- 4.5 4.7 CO2 26 -- 25 26 BUN 60* -- 61* 65* CREAT 2.04* -- 1.93* 2.10* LACT -- 0.9 -- -- Microbiology data: reviewed Imaging data: reviewe (more content not included)... [facility] CONSULT PROG HNO ID: [id number] Author: DAVIDSON YORK RPh Service: Pharmacy Author Type: Pharmacist Type: Consult Progress Note Filed: 05/28/2024 07:46 Note Text: PHARMACY PROGRESS NOTE Patient Name: Yamilka Sharma Admission Date: 05/25/2024 Date of Consult: 05/28/2024 Time of Consult: 7:44 AM In accordance with the pharmacy dose optimization service, the following medication changes/decisions have been made: Medication Current Regimen Dosing Assessment Indication Assessment/Plan Sitagliptin 100 mg Q24h Modify dosing to 50 mg Q24h diabetes mellitus Order has been modified to standard dosing based on the patient's estimated renal function: eGFR 39 mL/min/1.73m2 For medications which dose is dependent on renal function, a pharmacist will monitor renal function daily and adjust doses accordingly. Any dose adjustments needed based on changes in indication should be addressed by an LIP. If you have any questions, please contact Pharmacy at [phone]. Estimated Creatinine Clearance: 54.6 mL/min (A) (based on SCr of 1.93 mg/dL (H)). Serum creatinine and eGFR results 72 hours 05/28/2024 05/27/2024 05/26/2024 5:17 AM 6:23 AM 5:37 AM SCr (mg/dL) 1.93 2.10 2.21 eGFR (mL/min/1.73m2) 39 36 33 Allergies: ALLERGIES Allergen Reactions Aspartame Intolerance Severe headache Bactrim [Sulfametho* Hives, Intolerance Reaction: gas Sensitivity: Intolerance. Sensitivity: Intolerance Biaxin [Clarithromy* Unknown Indigestion/gas Influenza Vaccine T* Unknown Flu Monosodium Glutamat* Intolerance Severe headache Pantoprazole Diarrhea Sulfa (Sulfonamide * Rash, Hives Clindamycin Hcl Diarrhea, GI Upset, Vomiting Reaction: Nausea/vomiting/diarrhea Other Reaction: stomach cramps Sensitivity: Intolerance Last 1 Encounter Wt Readings: Date: Wt: 05/25/2024 117.6 kg (259 lb 4.2 oz) Last 1 Encounter Ht Readings: Date: Ht: 05/25/2024 182.9 cm (6') Davidson York [facility] May 28, 2024 7:44 AM Normal [facility] SEPSIS LACTATEon 05-28-2024 Lactate [Moles/Vol] 0.9 mmol/L Normal 0.5-2.0 [facility] Comment on above: Order Comment: Speci men Type: BLOOD SPECIMENOrdering Facility: [facility] Address: [address] [place] [address] Performed By: #### S LACT ####[facility]ORATORYCLIA [id number] [address] THERAPY NTon 05-28-2024 THERAPY NT HNO ID: [id number] Author: MARYAN MARINO OTR/L Service: Occupational Therapy Author Type: Occupational Therapist Type: Therapy (PT/OT/Speech/Resp) Filed: 05/28/2024 08:42 Note Text: Occupational Therapy Evaluation Summary SERVICE DATE: 05/28/2024 SERVICE TIME: 749 to 08 ROOM: [place] [address] OT 6 Clicks Score: 17 DISCHARGE RECOMMENDATIONS Acute Rehab Recommended Discharge Disposition Due to: Patient requires active, intensive rehabilitation by multiple therapy disciplines. Anticipate the patient will tolerate 3 hours of therapy per day., ADL impairment, Anticipated community discharge, Requires multiple therapy disciplines Anticipated Discharge Needs: Undetermined ASSESSMENT Response to Therapy Interventions: Good Participation in Activities, Low Activity Tolerance Pt typically indep for ADLs, IADLS and amb w/o AD presents with pain and weight bearing deficits affecting ability to functional transfer and perform self care tasks. 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 Pt will benefit from and will tolerate 3 hours of therapy a day to return to [facility]. PRECAUTIONS Fall Risk, Bed/Chair Alarm, Lines/Tubes/Drains, Weight Bearing Restrictions Left Lower Extremity Weight Bearing Status: WBAT Right Lower Extremity Weight Bearing Status: Other: See Comment (Don surgical shoe ambulating) CURRENT HOSPITAL COURSE recent hospital stay at for R toe cellulitis/wound s/p abx/debridement and left knee swelling/pain s/p arthrocentesis negative for infection/crystals, who presents with continued pain/swelling of left knee and fall today without knee trauma. Osteomylitis or right great toe caused pathological fracture of toe and planned partial amputation of the toe on 05/30 tenetively depending on xray and cultures. MRI of right knee show medical menisus tear, aspiration completed, pt waitng to hear if muscle will be repaired or not. Relevant Past Medical History: DM2 afib HTN CAD obesity non-hodgkin's lymphoma s/p chemo 3 yrs ago with chronic med port in place for difficult IV access, recent hospital stay at for R toe cellulitis/wound s/p abx/debridement and left knee swelling/pain s/p arthrocentesis; possible toe surgery this upcoming week HOME LIVING Patient Lives With: Spouse Assistance Available: 24-Hour Entry To Home: Stairs Number Of Stairs Into Home: (t) Number Of Stairs To Bed/Bath: 0 Stairs to Bed/Bath with: Unilateral Rail Tub/Shower Type: walk in Laundry: spouse Equipment Owned: Cane, Grab Bars- Shower, Grab Bars- Toilet, Shower Chair, Walker- Wheeled, Rollator PRIOR FUNCTIONAL LEVEL Required Assistance, Within Functional Limits Assistance Required With: Cleaning, Laundry, Meals Pt typically indep ro ADLs and contributes to IADLs. Used cane outside of home and ww sometimes in the home. . Sleeps on a recliner and/or couch since his chemo (more comfortable). assists setting up meds, pt reports 2 falls l ast 6 mos. Last fall as result of pulling self up from couch with RW. Baseline Cognition: Oriented to self, Oriented to time, Oriented to situation, Oriented to place SUBJECTIVE Why are you here so early? COGNITION Responsiveness: Alert Follows Commands: 3-step Commands Cueing to Follow Commands: Minimum THERAPY DIAGNOSIS Reduced mobility-other, Decreased activities of daily living (ADL), Muscle Weakness (generalized), Unsteadiness on feet, General symptoms and signs-other TREATMENT INTERVENTIONS Evaluation, Self Group Home Management ([id number]) Timed Code Treatment (minutes): 19 Skilled Treatment Time (minutes): 34 TRAINING AND EDUCATION PROVIDED Assistive Device Use, Command Following, Discharge Planning, Expected Functional Level, Functional Mobility Involving ADLs, Health Literacy, Identification of Systems of Support, Insight into Deficits, Life Roles/Routines/Habits, Lower Extremity Bathing, Lower Extremity Dressing, Positioning, Precautions/Restrictions , Role of Occupational Therapy, Safety/Judgment, Self-Efficacy, Sitting Balance to Improve [place] with ADLs/Self-Care, Standing Balance to Improve [place] with ADLs/Self-Care, Toileting , Transfer - Sit to Stand, Transfer - Toilet/Commode, Treatment Protocol THERAPEUTIC SKILLS USED Activity Dosing, Cues for Sequencing/Proper Technique for Activity, Cuing Tactile, Cuing Verbal, Cuing Visual, Movement Facilitation, Physical Assist, Task Analysis Learning, Teach-Back for Education, Therapeutic Use of Self FUNCTIONAL STATUS Activities of Daily Living Assist Level Additional Information Feeding Independent Grooming Contact Guard Assistance Bathing Upper Body Set Up Bathing Lower Body Maximal Assistance, Additional Information based on pain Dressing Upper Body Set Up Dressing Lower Body Maximal Assistance, Additional Information based on pain Toileting Additional Information, Contact Guard Assistance cues to s (more content not included)... Normal [facility] 25(OH)D3 [facility] 2023 25-hydroxyvitamin D3 [Mass/Vol] 59.7 ng/mL Normal 31.0-80.0 [facility] Comment on above: Order Comment: Speci men Type: BLOOD SPECIMENOrdering Facility: [facility] Address: [facility] [place] [address] Result Comment: Clas sification of 25 [place] Vitamin D status: Deficiency/Insufficiency: < or = 30 ng/ml. Sufficiency/Optimal Levels: 31-80 ng/mL Toxicity: > 100 ng/mL. Test performed by chemiluminescent immunoassay. Performed By: #### 1 989-3 ####[facility] LABCLIA [id number] [facility] [place] [address] [place] Bacteria Fld Culton 05-27-20 24 Bacteria identified Cx Nom (Body fld) CULTURE, BODY FLD: No growth GRAM STAIN: No organisms seen Many Polymorphonuclear leukocytes Gram stain from primary specimen Normal [facility] Comment on above: Performed By: #### 6 11-4 ####[facility] LABCLIA [id number] [facility] [id number] [address] [place] Basic metabolic 2000 panelon 05-27-2024 Anion gap [Moles/Vol] 11 mmol/L Normal 8-15 [facility] Comment on above: Order Comment: Speci men Type: BLOOD SPECIMENOrdering Facility: [facility] Address: [address] [place] [address] Performed By: #### 2 4321-2 ####[facility]ORATORYCLIA [id number] [place] [address] [place] Calcium [Mass/Vol] 9.3 mg/dL Normal 8.5-10.2 [facility] Comment on above: Order Comment: Speci men Type: BLOOD SPECIMENOrdering Facility: [facility] Address: [address] [place] [address] Performed By: #### 2 4321-2 ####[facility]ATORYCLIA [id number] [place] [address] [place] Chloride [Moles/Vol] 97 mmol/L Low 98-107 [facility] Comment on above: Order Comment: Speci men Type: BLOOD SPECIMENOrdering Facility: [facility] Address: [address] [place] [address] Performed By: #### 2 4321-2 ####[facility]ORATORYCLIA [id number] [place] [address] [place] CO2 [Moles/Vol] 26 mmol/L Normal 22-30 [facility] Comment on above: Order Comment: Speci men Type: BLOOD SPECIMENOrdering Facility: [facility] Address: [address] [place] [address] Performed By: #### 2 4321-2 ####[facility]ATORYCLIA [id number] [place] [address] [place] Creatinine [Mass/Vol] 2.10 mg/dL High 0.73-1.22 [facility] Comment on above: Order Comment: Raghujarvis malik Type: BLOOD SPECIMENOrdering Facility: [facility] Address: [address] [place] [address] Performed By: #### 2 4321-2 ####[facility]ORATORYCLIA [id number] [place] [id number] [facility] Creatinine and Glomerular filtration rate.predicted panel (S/P/Bld) 36 mL/min/1.73m??? Low >=60 [facility] Comment on above: Order Comment: Santo king Type: BLOOD SPECIMENOrdering Facility: [facility] Address: [address] [place] [address] Result Comment: Karissa mated Glomerular Filtration Rate (eGFR) is calculated using the 2020 CKD-EPI creatinine equation. This equation utilizes serum creatinine, sex, and age as parameters. The creatinine assay has traceable calibration to isotope dilution-mass spectrometry. Refer to KDIGO guidelines for clinical interpretation. In patients with unstable renal function, e.g. those with acute kidney injury, the eGFR may not accurately reflect actual GFR. Performed By: #### 2 4321-2 ####[facility]ORATORYCLIA [id number] [place] [id number] [place] Glucose [Mass/Vol] 158 mg/dL High 74-99 [facility] Comment on above: Order Comment: Santo malik Type: BLOOD SPECIMENOrdering Facility: [facility] Address: [address] [place] [address] Result Comment: The [place] Diabetes Association (ADA) provides guidance for cutoff values for fasting glucose and random glucose. The ADA defines fasting as no caloric intake for at least 8 hours. Fasting plasma glucose results between 100 to 125 mg/dL indicate increased risk for diabetes (prediabetes). Fasting plasma glucose results greater than or equal to 126 mg/dL meet the criteria for diagnosis of diabetes. In the absence of unequivocal hyperglycemia, results should be confirmed by repeat testing. In a patient with classic symptoms of hyperglycemia or hyperglycemic crisis, random plasma glucose results greater than or equal to 200 mg/dL meet the criteria for diagnosis of diabetes. Reference: Standards of Medical Care in Diabetes 2016, [place] [employer] Association. Diabetes Care. 2016.39(Suppl 1). Performed By: #### 2 4321-2 ####[facility]ORATORYCLIA [id number] [place] [address] [place] Potassium [Moles/Vol] 4.7 mmol/L Normal 3.7-5.1 [facility] Comment on above: Order Comment: Santo malik Type: BLOOD SPECIMENOrdering Facility: [facility] Address: [address] [place] [address] Performed By: #### 2 4321-2 ####[facility]ORATORYCLIA [id number] [address] [place] Sodium [Moles/Vol] 134 mmol/L Low 136-144 [facility] Comment on above: Order Comment: Santo malik Type: BLOOD SPECIMENOrdering Facility: [facility] Address: [address] [place] [address] Performed By: #### 2 4321-2 ####[facility] LABORATORYCLIA [id number] [address] [place] Urea nitrogen [Mass/Vol] 65 mg/dL High 9-24 [facility] Comment on above: Order Comment: Santo malik Type: BLOOD SPECIMENOrdering Facility: [facility] Address: [address] [place] [address] Performed By: #### 2 4321-2 ####[facility] LABORATORYCLIA [id number] [place] [id number] [facility] [place] CASE MANAGEMon 05-27-2024 CASE MANAGEM HNO ID: [id number] Author: DIOGO RICO LISW Service: ? Author Type: Child Guidance Counselor Type: Care Mgt Progress Note Filed: 05/27/2024 16:07 Note Text: CARE MANAGEMENT PROGRESS NOTE SERVICE DATE: 05/27/2024 SERVICE TIME: 4:04 PM LOS: 2 days Needs Prior to Discharge: To Be Determined;Accepting Facility;Bed Availability;Insurance Authorization;Discharge Transportation [place] of Choice Given: Yes Level of Care Discussed: Inpatient Rehab Facility Financial Disclosure Provided: Yes Provider List: Rehab Facility Provider list within the patient's requested geographic area shared with the patient/family: Yes within: 30 miles of zip code: [address] Quality and resource use metrics shared with the patient that are relevant to the patient's goals of care and treatment preferences:: Yes EMR reviewed. PT evaluation completed, Acute Rehab recommended. SW met with pt and spouse at bedside to review options for rehabilitation. Pt/spouse in agreement with referral to [facility], referral placed via [facility]port. Will need pre-cert. Transport at discharge to be determined. Aspiration of left knee today. Plan for pt to have surgery Thursday - Partial RT hallux amputation. Podiatry, Orthopedics continuing to follow. SW/CM will continue to follow for placement/discharge coordination. SIGNATURE: MARLENE Ledesma PATIENT NAME: Yamilka Sharma DATE: May 27, 2024 TIME: 4:04 PM PAGER/CONTACT #: [phone] Normal [facility] CBC panel Auto (Bld)on 05-27 Erythrocyte distribution width (RBC) [Ratio] 14.5 % Normal 11.5-15.0 [facility] Comment on above: Order Comment: Santo malik Type: BLOOD SPECIMENOrdering Facility: [facility] Address: [address] [place] [address] Performed By: #### 5 8410-2 ####[facility] LABORATORYCLIA [id number] [place] [address] [place] Hematocrit (Bld) [Volume fraction] 37.0 % Low 39.0-51.0 [facility] Comment on above: Order Comment: Santo malik Type: BLOOD SPECIMENOrdering Facility: [facility] Address: [address] [place] [address] Performed By: #### 5 8410-2 ####[facility] LABORATORYCLIA [id number] [place] [id number] [place] Hemoglobin (Bld) [Mass/Vol] 11.7 g/dL Low 13.0-17.0 [facility] Comment on above: Order Comment: Santo malik Type: BLOOD SPECIMENOrdering Facility: [facility] Address: [address] [place] [address] Performed By: #### 5 8410-2 ####[facility] LABORATORYCLIA [id number] [address] MCH (RBC) [Entitic mass] 25.7 pg Low 26.0-34.0 [facility] Comment on above: Order Comment: Speci men Type: BLOOD SPECIMENOrdering Facility: [facility] Address: [address] [place] [address] Performed By: #### 5 8410-2 ####[facility] LABORATORYCLIA [id number] [address] [place] [facility] MCHC (RBC) [Mass/Vol] 31.6 g/dL Normal 30.5-36.0 [facility] Comment on above: Order Comment: Speci men Type: BLOOD SPECIMENOrdering Facility: [facility] Address: [address] [place] [address] Performed By: #### 5 8410-2 ####[facility]ATORYCLIA [id number] [address] MCV (RBC) [Entitic vol] 81.3 fL Normal 80.0-100.0 [facility] Comment on above: Order Comment: Speci men Type: BLOOD SPECIMENOrdering Facility: [facility] Address: [address] [place] [address] Performed By: #### 5 8410-2 ####[facility]ORATORYCLIA [id number] [address] Nucleated RBC (Bld) [#/Vol] 10*3/uL Normal <0.01 [facility] Comment on above: Order Comment: Speci men Type: BLOOD SPECIMENOrdering Facility: [facility] Address: [address] [place] [address] Performed By: #### 5 8410-2 ####[facility]ATORYCLIA [id number] [address] Platelet mean volume (Bld) [Entitic vol] 10.7 fL Normal 9.0-12.7 [facility] Comment on above: Order Comment: Speci men Type: BLOOD SPECIMENOrdering Facility: [facility] Address: [address] [place] [address] Performed By: #### 5 8410-2 ####[facility] LABORATORYCLIA [id number] [place] [address] [facility] [place] Platelets (Bld) [#/Vol] 182 10*3/uL Normal 150-400 [facility] Comment on above: Order Comment: Speci men Type: BLOOD SPECIMENOrdering Facility: [facility] Address: [address] [place] [address] Performed By: #### 5 8410-2 ####[facility]ATORYCLIA [id number] [address] [place] RBC (Bld) [#/Vol] 4.55 10*6/uL Normal 4.20-6.00 [facility] Comment on above: Order Comment: Speci men Type: BLOOD SPECIMENOrdering Facility: [facility] Address: [address] [place] [address] Performed By: #### 5 8410-2 ####[facility]ORATORYCLIA [id number] [place] [id number] [facility] WBC (Bld) [#/Vol] 11.27 10*3/uL High 3.70-11.00 [facility] Comment on above: Order Comment: Speci men Type: BLOOD SPECIMENOrdering Facility: [facility] Address: [address] [place] [address] Performed By: #### 5 8410-2 ####[facility]ORATORYCLIA [id number] [place] [id number] [facility] CONSULT PROGon 05-27-2024 CONSULT PROG HNO ID: [id number] Author: AMRIT DEL VALLE MD Service: Infectious Disease Author Type: Physician Type: Consult Progress Note Filed: 05/29/2024 17:39 Note Text: INFECTIOUS DISEASE PROGRESS NOTE Patient Name: Yamilka Sharma INTERVAL HISTORY: Knee pain and swelling. No new complaints. Feels better Patient Active Hospital Problem List: Osteomyelitis of great toe of right foot (HCC) (05/29/2024) Acute medial meniscus tear (05/25/2024) Essential hypertension (05/26/2024) Type 2 diabetes mellitus (HCC) (05/26/2024) Simple chronic bronchitis (HCC) (05/26/2024) Atrial fibrillation (HCC) (05/26/2024) Stage 3b chronic kidney disease (HCC) (05/26/2024) Class 2 obesity due to excess calories with body mass index (BMI) of 35.0 to 35.9 in adult (05/27/2024) H/O insertion of central venous access port (05/29/2024) ASSESSMENT: Knee pain Possible early OM of foot, Cx w Strep group C Essential hypertension Type 2 diabetes mellitus Simple chronic bronchitis Atrial fibrillation Stage 3b chronic kidney disease PLAN: Discussed w Dr Lee. Follow cultures Plan for PICC and IV abx at discharge based on cultures Ceftriaxone empirically Left knee corticosteroid injection contraindicated at this time due to active infection of right foot with plans for amputation of right great toe 2/2 osteomyelitis with podiatry on 05/30/24. Left knee aspiration performed for therapeutic purposes. MEDICATIONS: reviewed. Current Facility-Administered Medications Medication Dose Route Frequency acetaminophen 1,000 mg tab(s) (TYLENOL) 1,000 mg ORAL Q6H WHILE AWAKE lidocaine 4 % 1 Patch (SALONPAS) 1 Patch TRANSDERMAL DAILY AT 9 PM And lidocaine patch - REMOVE OTHER DAILY And lidocaine - VERIFY PATCH OTHER q 8 H oxyCODONE IR 5 mg tab(s) (ROXICODONE) 5 mg ORAL q 6 H PRN HYDROmorphone 0.5 mg injection (DILAUDID) 0.5 mg INTRAVENOUS q 3 H PRN insulin lispro injection (rapid acting) (ADMElog) SUBCUTANEOUS w MEALS insulin lispro injection (rapid acting) (ADMElog) SUBCUTANEOUS AT BEDTIME polyethylene glycol 3350 17 g packet 17 g ORAL DAILY PRN benzocaine-menthol 1 Lozenge (CEPACOL) 1 Lozenge MUCOUS MEMBRANE (TOPICAL MOUTH AND THROAT) q 2 H PRN benzonatate 100 mg cap(s) (TESSALON PERLE) 100 mg ORAL TID PRN calcium carbonate 1,000 mg chewable tab(s) (TUMS) 1,000 mg ORAL TID PRN prochlorperazine 10 mg injection (COMPAZINE) 10 mg INTRAVENOUS q 6 H PRN melatonin 3 mg tab(s) 3 mg ORAL AT BEDTIME PRN albuterol HFA 90 mcg/actuation 2 Puff (PROVENTIL HFA, VENTOLIN HFA) 2 Puff INHALATION q 4 H PRN allopurinol 100 mg tab(s) (ZYLOPRIM) 100 mg ORAL BID DULoxetine 60 mg cap(s) (CYMBALTA) 60 mg ORAL BID gabapentin 600 mg tab(s) (NEURONTIN) 600 mg ORAL TID lisinopril 5 mg tab(s) (ZESTRIL) 5 mg ORAL DAILY rosuvastatin 40 mg tab(s) (CRESTOR) 40 mg ORAL DAILY sodium bicarbonate 1,300 mg tab(s) 1,300 mg ORAL BID dextrose 40 % 15 g 15 g ORAL PRN Or glucagon 1 mg injection 1 mg INTRAMUSCULAR PRN Or dextrose 10% iv bolus 12.5 g INTRAVENOUS PRN NaCl 0.9% iv flush bag 20 mL INTRAVENOUS PRN simethicone, chewable 80 mg tab(s) (MYLICON) 80 mg ORAL QID PRN dilTIAZem CD 120 mg cap(s) (CARDIZEM CD, CARTIA XT) 120 mg ORAL DAILY metoprolol tartrate (short acting) 25 mg tab(s) (LOPRESSOR) 25 mg ORAL q 12 H furosemide 40 mg tab(s) (LASIX) 40 mg ORAL DAILY ceFAZolin iv piggyback 2 g in D5W (iso-osmotic) 100 mL (ANCEF) 2 g INTRAVENOUS q 8 H oxyCODONE IR 10 mg tab(s) (ROXICODONE) 10 mg ORAL q 3 H PRN [START ON 05/31/2024] glimepiride 4 mg tab(s) (AMARYL) 4 mg ORAL BID w MEALS [START ON 05/31/2024] dapagliflozin propanediol 10 mg tab(s) (FARXIGA) 10 mg ORAL DAILY WITH BREAKFAST [START ON 05/30/2024] insulin glargine 10 Units pen (long acting) 10 Units SUBCUTANEOUS DAILY (8 AM) [START ON 05/31/2024] metFORMIN 500 mg tab(s) (GLUCOPHAGE) 500 mg ORAL BID w MEALS [START ON 05/31/2024] SITagliptin phosphate 50 mg tab(s) (JANUVIA) 50 mg ORAL DAILY PHYSICAL EXAM: Vital signs: BP 94/56 Pulse 98 Temp 37 ?C (98.6 ?F) (Temporal Artery) Resp 16 Ht 182.9 cm (6') Wt 118 kg (260 lb 2.3 oz) SpO2 95% BMI 35.28 kg/m? Temp (24hrs), Av.9 ?C (98.4 ?F), Min:36.8 ?C (98.2 ?F), Max:37 ?C (98.6 ?F) General: alert, oriented, NAD Lungs: bilaterally clear to auscultation Heart: regular rate and rhythm Abdomen: soft, non tender, non distended, BS+ Extremities: foot dressing No rashes No joint inflammation Neck supple Lines ok No CVAT Lines, Drains, and Airways Line Duration Implanted Vascular Access Device Double Port 05/25/24 Right Chest 4 days Labs: Recent Labs 05/29/24 0609 05/28/24 0832 05/28/24 0517 05/27/24 0623 WBC 9.34 -- 13.67* 11.27* HB 10.6* -- 11.7* 11.7* PLT 158 -- 185 182 NA 134* -- 134* 134* K 4.4 -- 4.5 4.7 CO2 26 -- 25 26 BUN 60* -- 61* 65* CREAT 2.04* -- 1.93* 2.10* LACT -- 0.9 -- -- Microbiology data: reviewed Imaging data: reviewed Amrit Del Valle MD Pager: [phone] (more content not included)... [facility] CONSULT PROG HNO ID: [id number] Author: MAURO LEE DPM Service: Podiatry Author Type: Physician Type: Consult Progress Note Filed: 05/27/2024 15:46 Note Text: PODIATRY SURGICAL SERVICE CONSULT PROGRESS NOTE SERVICE DATE: 05/27/2024 SERVICE TIME: 2:00 PM Subjective INTERVAL HPI: Patient seen bedside resting comfortably. No new pedal complaints. RT great toe ulcer with distal phalanx OM Current Facility-Administered Medications Medication Dose Route Frequency acetaminophen 1,000 mg tab(s) (TYLENOL) 1,000 mg ORAL Q6H WHILE AWAKE lidocaine 4 % 1 Patch (SALONPAS) 1 Patch TRANSDERMAL DAILY AT 9 PM And lidocaine patch - REMOVE OTHER DAILY And lidocaine - VERIFY PATCH OTHER q 8 H diclofenac 1 % 4 g topical gel (VOLTAREN) 4 g TOPICAL QID oxyCODONE IR 5 mg tab(s) (ROXICODONE) 5 mg ORAL q 6 H PRN HYDROmorphone 0.5 mg injection (DILAUDID) 0.5 mg INTRAVENOUS q 3 H PRN insulin lispro injection (rapid acting) (ADMElog) SUBCUTANEOUS w MEALS insulin lispro injection (rapid acting) (ADMElog) SUBCUTANEOUS AT BEDTIME polyethylene glycol 3350 17 g packet 17 g ORAL DAILY PRN benzocaine-menthol 1 Lozenge (CEPACOL) 1 Lozenge MUCOUS MEMBRANE (TOPICAL MOUTH AND THROAT) q 2 H PRN benzonatate 100 mg cap(s) (TESSALON PERLE) 100 mg ORAL TID PRN calcium carbonate 1,000 mg chewable tab(s) (TUMS) 1,000 mg ORAL TID PRN prochlorperazine 10 mg injection (COMPAZINE) 10 mg INTRAVENOUS q 6 H PRN melatonin 3 mg tab(s) 3 mg ORAL AT BEDTIME PRN albuterol HFA 90 mcg/actuation 2 Puff (PROVENTIL HFA, VENTOLIN HFA) 2 Puff INHALATION q 4 H PRN allopurinol 100 mg tab(s) (ZYLOPRIM) 100 mg ORAL BID dilTIAZem CD 120 mg cap(s) (CARDIZEM CD, CARTIA XT) 120 mg ORAL DAILY DULoxetine 60 mg cap(s) (CYMBALTA) 60 mg ORAL BID dapagliflozin propanediol 10 mg tab(s) (FARXIGA) 10 mg ORAL DAILY WITH BREAKFAST furosemide 40 mg tab(s) (LASIX) 40 mg ORAL DAILY gabapentin 600 mg tab(s) (NEURONTIN) 600 mg ORAL TID glimepiride 4 mg tab(s) (AMARYL) 4 mg ORAL BID w MEALS insulin glargine 30 Units pen (long acting) 30 Units SUBCUTANEOUS DAILY (8 AM) lisinopril 5 mg tab(s) (ZESTRIL) 5 mg ORAL DAILY metFORMIN 500 mg tab(s) (GLUCOPHAGE) 500 mg ORAL BID w MEALS metoprolol tartrate (short acting) 25 mg tab(s) (LOPRESSOR) 25 mg ORAL q 12 H rosuvastatin 40 mg tab(s) (CRESTOR) 40 mg ORAL DAILY SITagliptin phosphate 100 mg tab(s) (JANUVIA) 100 mg ORAL DAILY sodium bicarbonate 1,300 mg tab(s) 1,300 mg ORAL BID dextrose 40 % 15 g 15 g ORAL PRN Or glucagon 1 mg injection 1 mg INTRAMUSCULAR PRN Or dextrose 10% iv bolus 12.5 g INTRAVENOUS PRN cefTRIAXone 2 g in D5W 100 mL Vial-Bag (ROCEPHIN) 2 g INTRAVENOUS q 24 H NaCl 0.9% iv flush bag 20 mL INTRAVENOUS PRN simethicone, chewable 80 mg tab(s) (MYLICON) 80 mg ORAL QID PRN Objective PHYSICAL EXAM: Physical Exam Performed: GENERAL: Alert, no distress, cooperative VASC:BL Foot DP / PT pulses +2/4. CFT less than 3 seconds to digits, skin temp warm to warm from proximal to distal BL Foot NEURO: BL light touch sensation diminished especially at toe level MSK: BL 5/5 muscle strength for all pedal muscle groups in dorsiflexion, plantarflexion, inversion, and eversion DERM: RIGHT foot 1st digit, distal medial aspect wound measures 0.4x0.4x0.6cm with fibrotic slough noted and devitalized tissue, no surrounding callus, surrounding edema and mild erythema, minimal purulence expressed, swelling noted to great toe, positive probe to bone, mild malodor. Into level of BONE BP 115/69 Pulse 100 Temp (Src) 98.2 (Oral) Resp 18 Ht 6' 0 (1.83m) Wt 259 lb 4.2 oz (117.6kg) SpO2 95% BMI 35.15 kg/(m2). O2 Therapy: Room Air DATA: Diagnostic tests reviewed for today's visit: Most recent labs and imaging results. CBC, Coags, BMP, Mg, Phos Recent Labs 05/26/24 0537 WBC 11.23* HB 11.5* HCT 36.4* PLT 172 NA 136 K 4.5 CHLOR 98 CO2 28 BUN 60* CREAT 2.21* GLUC 139* CA 9.1 Impression/Recommendatio ns RT great toe osteomyelitis, distal phalanx RT foot great toe pathological fracture, distal phalanx RT foot Cellulitis Ulcer, right great toe, level of bone Stage IIIB chronic kidney disease Type II diabetes with neuropathy Chart and labs reviewed 05/26/24: 150 Glucose, Uric acid 6.2, CRP: 4.9, WBC: 11.23 05/26/24 RT foot xrays: pending 05/26/24 RT foot 1st digit culture: pending 05/17/24 RT foot MRI: Great toe fracture. No definitive MRI findings of osteomyelitis although bone marrow evaluation is limited by changes related to the fracture. 05/17/24 RT Foot 1st digit culture: Strep dysgalactiae, negative staph species 05/16/24 US DVT BL: Negative DVT bilaterally, Right is positive for valvular incompetency in distal external illiac and femoral vein. 05/16/24 PVR RAHEL: Normal waveforms. Resting right ankle brachial index: 1.21. Resting left ankle brachial index: 1.19 Wound Care: Cleanse with vashe and pat dry. Apply betadine paint to ulcer on 1st great digit, right f (more content not included)... [facility] CONSULT PROG HNO ID: [id number] Author: EPI POLANCO MD Service: Nephrology Author Type: Physician Type: Consult Progress Note Filed: 05/27/2024 07:26 Note Text: NEPHROLOGY CONSULT PROGRESS NOTE Subjective INTERVAL HISTORY: The patient was seen and examined . No acute event overnight. PERTINENT ROS: GENERAL: No fever/chills. RESPIRATORY: Negative for cough, wheezing or shortness of breath. CARDIOVASCULAR: Negative for chest pain or palpitations. GI: Negative for nausea, vomiting, Diarrhea, abdominal pain. : Negative for dysuria and hematuria MEDICATIONS: Current Facility-Administered Medications Medication Dose Route Frequency acetaminophen 1,000 mg tab(s) (TYLENOL) 1,000 mg ORAL Q6H WHILE AWAKE lidocaine 4 % 1 Patch (SALONPAS) 1 Patch TRANSDERMAL DAILY AT 9 PM And lidocaine patch - REMOVE OTHER DAILY And lidocaine - VERIFY PATCH OTHER q 8 H diclofenac 1 % 4 g topical gel (VOLTAREN) 4 g TOPICAL QID oxyCODONE IR 5 mg tab(s) (ROXICODONE) 5 mg ORAL q 6 H PRN HYDROmorphone 0.5 mg injection (DILAUDID) 0.5 mg INTRAVENOUS q 3 H PRN insulin lispro injection (rapid acting) (ADMElog) SUBCUTANEOUS w MEALS insulin lispro injection (rapid acting) (ADMElog) SUBCUTANEOUS AT BEDTIME polyethylene glycol 3350 17 g packet 17 g ORAL DAILY PRN benzocaine-menthol 1 Lozenge (CEPACOL) 1 Lozenge MUCOUS MEMBRANE (TOPICAL MOUTH AND THROAT) q 2 H PRN benzonatate 100 mg cap(s) (TESSALON PERLE) 100 mg ORAL TID PRN calcium carbonate 1,000 mg chewable tab(s) (TUMS) 1,000 mg ORAL TID PRN prochlorperazine 10 mg injection (COMPAZINE) 10 mg INTRAVENOUS q 6 H PRN melatonin 3 mg tab(s) 3 mg ORAL AT BEDTIME PRN albuterol HFA 90 mcg/actuation 2 Puff (PROVENTIL HFA, VENTOLIN HFA) 2 Puff INHALATION q 4 H PRN allopurinol 100 mg tab(s) (ZYLOPRIM) 100 mg ORAL BID DULoxetine 60 mg cap(s) (CYMBALTA) 60 mg ORAL BID dapagliflozin propanediol 10 mg tab(s) (FARXIGA) 10 mg ORAL DAILY WITH BREAKFAST gabapentin 600 mg tab(s) (NEURONTIN) 600 mg ORAL TID glimepiride 4 mg tab(s) (AMARYL) 4 mg ORAL BID w MEALS insulin glargine 30 Units pen (long acting) 30 Units SUBCUTANEOUS DAILY (8 AM) lisinopril 5 mg tab(s) (ZESTRIL) 5 mg ORAL DAILY metFORMIN 500 mg tab(s) (GLUCOPHAGE) 500 mg ORAL BID w MEALS rosuvastatin 40 mg tab(s) (CRESTOR) 40 mg ORAL DAILY SITagliptin phosphate 100 mg tab(s) (JANUVIA) 100 mg ORAL DAILY sodium bicarbonate 1,300 mg tab(s) 1,300 mg ORAL BID dextrose 40 % 15 g 15 g ORAL PRN Or glucagon 1 mg injection 1 mg INTRAMUSCULAR PRN Or dextrose 10% iv bolus 12.5 g INTRAVENOUS PRN cefTRIAXone 2 g in D5W 100 mL Vial-Bag (ROCEPHIN) 2 g INTRAVENOUS q 24 H NaCl 0.9% iv flush bag 20 mL INTRAVENOUS PRN simethicone, chewable 80 mg tab(s) (MYLICON) 80 mg ORAL QID PRN [START ON 05/28/2024] dilTIAZem CD 120 mg cap(s) (CARDIZEM CD, CARTIA XT) 120 mg ORAL DAILY [START ON 05/28/2024] metoprolol tartrate (short acting) 25 mg tab(s) (LOPRESSOR) 25 mg ORAL q 12 H [START ON 05/28/2024] furosemide 40 mg tab(s) (LASIX) 40 mg ORAL DAILY Objective PHYSICAL EXAM: BP 125/82 Pulse 107 Temp 36.6 ?C (97.9 ?F) (Oral) Resp 18 Ht 182.9 cm (6') Wt 117.6 kg (259 lb 4.2 oz) SpO2 97% BMI 35.16 kg/m? Intake/Output Summary (Last 24 hours) at 05/27/2024 0724 Last data filed at 05/27/2024 0400 Gross per 24 hour Intake 960 ml Output 250 ml Net 710 ml GENERAL: NAD HEENT : NCAT, MMM and pink EYES: Conjunctiva -Pallor, Non icterus sclera. NECK: supple, No JVD, LUNGS: CTA without rales or wheeze, diminished breath sounds, CV: no murmurs, clicks, or gallops. ABDOMEN: soft, NT, BS normal EDEMA : no Lower extremity/ no Dependent edema DATA: Diagnostic tests reviewed for today's visit: Most recent labs and imaging results. Recent Labs 05/27/24 0623 05/26/24 0537 WBC 11.27* 11.23* HB 11.7* 11.5* HCT 37.0* 36.4* PLT 182 172 NA 134* 136 K 4.7 4.5 CHLOR 97* 98 CO2 26 28 BUN 65* 60* CREAT 2.10* 2.21* GLUC 158* 139* CA 9.3 9.1 Assessment/Plan 1. Chronic kidney disease Stage IIIb (baseline creatinine between 1.9 to 2.3 mg deciliter) likely in the setting of diabetic kidney disease 2. Status post fall 3. Left knee pain 4. Right. Knee pain 5. Type 2 diabetes 6. Hypertension 7. Atrial fibrillation 8. Coronary artery disease 9. Non-Hodgkin's lymphoma status post chemotherapy 3 years ago 10. Anemia 11. Hyperuricemia-uric acid 7.4 on 05/12/2024 12. Recent bilateral mild pelviectasis and hydroureter with concern for obstructive nephropathy and asymmetrical atrophy of left kidney Plan management --Serum creatinine decreased to 2.10 mg/dL. All electrolytes and acid-base are in acceptable range. --Ultrasound atrophic left kidney with moderate left hydronephrosis similar to CT scan of 05/11/2024. Prior CT demonstrate postsurgical changes of left psoas hitch with ureter implantation. Interval resolution of right hydronephrosis. Distended urinary bladder with debris and significant (more content not included)... Normal [facility] PTH-Intact SerPl-mCncon 08-0 Parathyrin.intact [Mass/Vol] 97 pg/mL High 15-65 [facility] Comment on above: Order Comment: Speci men Type: BLOOD SPECIMENOrdering Facility: [facility] Address: [address] [place] [address] Performed By: #### 2 731-8 ####[facility] LABCLIA [id number] [place] [address] [place] SYNOVIAL FLUID MANUAL DIFFon 05-27-2024 DIF TTL, SYNOVIAL FLUID 100 cells counted Normal [facility] Comment on above: Order Comment: Speci men Type: FLUID SPECIMENOrdering Facility: [facility] Address: [address] [place] [address] Performed By: #### L [id number], RTSYNF ####[facility]ORY[facility] [id number] [place] [address] [place]#### SFCRID ####[facility]ORYCLIA [id number] [place] [address] [place] [facility] LAB[facility] [id number] [place] [address] [place] LYMPH%, SF 18 Normal [facility] Comment on above: Order Comment: Speci men Type: FLUID SPECIMENOrdering Facility: [facility] Address: [address] [place] [address] Performed By: #### L [id number], RTSYNF ####[facility]ORYCLIA [id number] [place] [address] [place]#### SFCRID ####[facility]ORYCLIA [id number] [place] [address] [place] [facility] LABCL[facility] [id number] [address] [address] [place] MACRO%, SF 15 Normal [facility] Comment on above: Order Comment: Speci men Type: FLUID SPECIMENOrdering Facility: [facility] Address: [address] [place] [address] Performed By: #### L [id number], RTSYNF ####[facility]ORYCLIA [id number] [place], [place] [id number] [place] [address] [place]#### SFCRID ####[facility]ORYCL[facility] [id number] [place], [place] [address] [place] [address] LABCLIA [id number] [address] [place] NEUT% 67 High 0-<25 [facility] Comment on above: Order Comment: Speci men Type: FLUID SPECIMENOrdering Facility: [facility] Address: [address] [place] [address] Performed By: #### L [id number], RTSYNF ####[facility]ORYCLIA [id number] [address] STATES [place]#### SFCRID ####[facility]ORYCLIA [id number] [place], [place] [address] [place] [address] LABCLIA [id number] [place] [address] [place] SYNOVIAL FLUID, CRYSTAL ID/P ATHOLOGIST INTERPRETATIONon 05-27-2024 CRYSTAL PRELIM, SF PRELIMINARY REPORT N o diagnostic crystals seen. SEE FINAL SF PATH REVIEW Normal [facility] Comment on above: Order Comment: Speci men Type: FLUID SPECIMENOrdering Facility: [facility] Address: [address] [place] [address] Performed By: #### L [id number], RTSYNF ####[facility]ORYCLIA [id number] [place] [address] [place]#### SFCRID ####[facility]ORYCLIA [id number] [place] [address] [facility] LABCLIA [id number] [place] [address] [place] CRYSTAL REVIEW Reviewed by Suleiman Lee MD [employer] [facility] Comment on above: Order Comment: Speci men Type: FLUID SPECIMENOrdering Facility: [facility] Address: [address] [place] [address] Performed By: #### L [id number], RTSYNF ####[facility]ATORYCLIA [id number] [place] [address] [place] [facility] OF [place]#### SFCRID ####[facility]ORYCLIA [id number] [address] LABCLIA [id number] [place] [address] [place] Crystals LM Nom (Syn fld) None seen Normal None seen [facility] Comment on above: Order Comment: Speci men Type: FLUID SPECIMENOrdering Facility: [facility] Address: [address] [place] [address] Performed By: #### L [id number], RTSYNF ####[facility]ORYCLIA [id number] [address] OF [place]#### SFCRID ####[facility]ORYCLIA [id number] [address] LABCLIA [id number] [address] [place] SYNOVIAL FLUID, ROUTINEon Clarity (Unsp spec) Clear Normal Clear [facility] Comment on above: Order Comment: Speci men Type: FLUID SPECIMENOrdering Facility: [facility] Address: [address] [place] [address] Performed By: #### L [id number], RTSYNF ####[facility]ORYCLIA [id number] [address] OF [place]#### SFCRID ####[facility]ORYCLIA [id number] [address] LABCLIA [id number] [place] [address] [place] Color (Syn fld) Yellow Normal Yellow [facility] Comment on above: Order Comment: Speci men Type: FLUID SPECIMENOrdering Facility: [facility] Address: [address] [place] [address] Performed By: #### L [id number], RTSYNF ####[facility]ORYCLIA [id number] [address] OF [place]#### SFCRID ####[facility]ORYCLIA [id number] [address] LABCLIA [id number] [place] [address] [place] RBC Manual cnt (Syn fld) [#/Vol] 28904 /uL High <2000 [facility] Comment on above: Order Comment: Speci men Type: FLUID SPECIMENOrdering Facility: [facility] Address: [address] [place] [address] Result Comment: Juany ected result: Previously reported as 30,000 /uL on 05/27/2024 at 1:40 PM EDT. Performed By: #### L [id number], RTSYNF ####[facility]ORYCLIA [id number] [address] OF [place]#### SFCRID ####[facility]ORYCLIA [id number] [address] LABCLIA [id number] [address] [place] Specimen source Nom (Unsp spec) Knee, Left Normal [facility] Comment on above: Order Comment: Speci men Type: FLUID SPECIMENOrdering Facility: [facility] Address: [address] [place] [address] Performed By: #### L [id number], RTSYNF ####[facility]ORYCLIA [id number] [address] OF [place]#### SFCRID ####[facility]ORYCLIA [id number] [address] OF [facility] LABCLIA [id number] [address] WBC Manual cnt (Syn fld) [#/Vol] 08488 /uL High 0-200 [facility] Comment on above: Order Comment: Speci men Type: FLUID SPECIMENOrdering Facility: [facility] Address: [address] [place] [address] Performed By: #### L [id number], RTSYNF ####[facility] [id number] [address]#### SFCRID ####[facility]ITALCLIA [id number] [address] [id number] [address] THERAPY NTon 05-27-2024 THERAPY NT HNO ID: [id number] Author: FRANCIS ENCISO OT/L Service: ? Author Type: Occupational Therapist Type: Therapy (PT/OT/Speech/Resp) Filed: 05/27/2024 11:27 Note Text: -------- Summary: OT Missed Visit -------- OCCUPATIONAL THERAPY MISSED VISIT SERVICE DATE: 05/27/2024 SERVICE TIME: 1124 ROOM: [id number] Patient not seen due to Clinical Appropriateness. Per conversation with ortho, pt to have knee aspirated this afternoon, plans to be WBAT to LLE. Will continue to follow s/p knee aspiration and await updated WB orders in chart from ortho. SIGNATURE: Francis Enciso OT/Juan PATIENT NAME: Yamilka Sharma DATE: May 27, 2024 TIME: 11:25 AM [facility] THERAPY NT HNO ID: [id number] Author: OSIRIS LIAO, PT, DPT Service: Physical Therapy Author Type: Physical Therapist Type: Therapy (PT/OT/Speech/Resp) Filed: 05/27/2024 13:13 Note Text: -------- Summary: PT evaluation -------- Physical Therapy Evaluation Summary SERVICE DATE: 05/27/2024 SERVICE TIME: 1111 to 1145 ROOM: [id number] PT 6 Clicks Score: 16 DISCHARGE RECOMMENDATIONS Acute Rehab Recommended Discharge Disposition Comments: Pt demonstrates dereased functional mobility, decreased strnegth, decreased ability to ambulate secondary to left knee pain (medial meniscus tear) and right toe pain (osteomylities) with planned amputation on right great toe for 05/30. Pt was indep prior to admission and works FT. Pt had a fall prior to admission which caused his tear in right meniscus and pt would be a good canidate for ARF at d/c following amputation and medical management in hospital setting. Recommended Discharge Disposition Due to: Functional deficits requiring ongoing therapy service prior to discharge home., Patient requires active, intensive rehabilitation by multiple therapy disciplines. Anticipate the patient will tolerate 3 hours of therapy per day., Anticipated community discharge, Balance deficits, Functional status decline, Requires multiple therapy disciplines, Patient is functioning at a level safe for discharge home with the available level of assist. Recommended Discharge Equipment: To Be Determined ASSESSMENT Response to Therapy Interventions: Pain, Requires Additional Time to Complete Activities, Good Participation in Activities Pt participated in session to tolerance of pain. Pain in left knee and right toe limited amount of mobility performed today, however aspiration was performed after PT evaluation today which may decrease his knee pain and allow for increased participation. Pt is scheduled tenitively for partial halux ampuaition on right side which complicates his mobility secondary to osteomylitis. Pt was indep prior to admission and would benefit from acute rehab at d/c for decreased functional mobility, decreased strength, decreased AROM, and inability to ambulate household distances/ stairs in order to return home at this time. PRECAUTIONS Fall Risk, Bed/Chair Alarm, Lines/Tubes/Drains, Weight Bearing Restrictions Left Lower Extremity Weight Bearing Status: WBAT Right Lower Extremity Weight Bearing Status: Other: See Comment (WB as tolerated in post op shoe) CURRENT HOSPITAL COURSE recent hospital stay at for R toe cellulitis/wound s/p abx/debridement and left knee swelling/pain s/p arthrocentesis negative for infection/crystals, who presents with continued pain/swelling of left knee and fall today without knee trauma. Osteomylitis or right great toe caused pathological fracture of toe and planned partial amputation of the toe on 05/30 tenetively depending on xray and cultures. MRI of right knee show medical menisus tear and aspiration will be perfomred today by Eliot. Relevant Past Medical History: DM2 afib HTN CAD obesity non-hodgkin's lymphoma s/p chemo 3 yrs ago with chronic med port in place for difficult IV access, recent hospital stay at for R toe cellulitis/wound s/p abx/debridement and left knee swelling/pain s/p arthrocentesis HOME LIVING Patient Lives With: Spouse (and 21 year old dtr in 2 floor home) Assistance Available: 24-Hour Entry To Home: No Stairs Number Of Stairs To Bed/Bath: but has a flight from basement to first floor with a stair glide from garage enterence (other enterence is up a hill with a couple stairs) Stairs to Bed/Bath with: Unilateral Rail Equipment Owned: Cane, Grab Bars- Shower, Grab Bars- Toilet, Shower Chair, Walker- Wheeled, Rollator PRIOR FUNCTIONAL LEVEL Required Assistance, Within Functional Limits Assistance Required With: Cleaning, Laundry, Meals Pt reports that prior to last admission he was indep with all ADL's and only used cane outside of home and ww sometimes in the home. Since last admission has been using walker more. + driving. 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 Sleeps on a recliner and/or couch since his chemo (more comfortable). and him set up medications in pill box. SUBJECTIVE Pt agrees to minimal PT evaluation secondary to left knee pain and upcoming aspiration in the afternoon. THERAPY DIAGNOSIS Reduced mobility-other, Decreased activities of daily living (ADL), Muscle Weakness (generalized), Difficulty walking-musculoskeletal TREATMENT INTERVENTIONS Evaluation, Therapeutic Activity (37926), Gait Training (09956) Timed Code Treatment (minutes): 15 Skilled Treatment Time (minutes): 15 $ Evaluation-Moderate (63901) Billed Units: 1 unit Therapeutic Activity (06652) Treatment Minutes: 10 $ Therapeutic (more content not included)... [facility] THERAPY NT HNO ID: [id number] Author: OSIRIS LIAO PT, DPT Service: Physical Therapy Author Type: Physical Therapist Type: Therapy (PT/OT/Speech/Resp) Filed: 05/27/2024 09:15 Note Text: -------- Summary: PT missed -------- PHYSICAL THERAPY MISSED VISIT SERVICE DATE: 05/27/2024 SERVICE TIME: 913 ROOM: [id number] Patient not seen due to ortho would like to aspirate his knee at this time then wait for updated WB orders. SIGNATURE: Osiris Liao PT, DPT PATIENT NAME: Yamilka Sharma DATE: May 27, 2024 TIME: 9:15 AM Normal [facility] ALBUMIN/CREATININE RATIO, UR INEon 05-26-2024 Albumin DL <= 20 mg/L (U) [Mass/Vol] 119.7 mg/L Normal [facility] Comment on above: Order Comment: Speci men Type: URINE SPECIMENOrdering Facility: [facility] Address: [address] [place] [address] Performed By: #### 3 5678-2, 14076-0, UACR, 2890-2 ####[facility] LABCLIA [id number] [place] [address] [place] Albumin/Creatinine (U) [Mass ratio] 173 mg/g High <30 [facility] Comment on above: Order Comment: Speci men Type: URINE SPECIMENOrdering Facility: [facility] Address: [address] [place] [address] Result Comment: Adul t Male and Female Nephrotic Criteria: <30 mg/g is considered normal to mildly increased 30-300 mg/g is considered moderately increased >300 mg/g is considered severely increased KDIGO. (2013). KDIGO 2012 Clinical Practice Guideline for the Evaluation and Management of Chronic Kidney Disease. Official Journal of the International Society of Nephrology, 3(1), 1-150. Performed By: #### 3 5678-2, 77283-5, UACR, 2890-2 ####[facility] LABIA [id number] [place] [id number] [place] OF [facility]-20[facility] HNO ID: [id number] Author: ARVIND KINNEY CT Service: Radiology Author Type: Materials Recycler Type: Allied Health Filed: 05/26/2024 15:04 Note Text: Radiology Service Progress Note PATIENT NAME: Yamilka Sharma DATE OF SERVICE: May 26, 2024 TIME: 2:46 PM PATIENT IDENTITY VERIFICATION COMPLETED USING TWO (2) IDENTIFIERS: Name and Date of confirmed by patient verbally. FALL SCREENING: Has the patient had 2 falls in the last year or 1 fall with injury or currently using an Ambulatory Assistive Device (Walker, Cane, Wheelchair, Crutches, etc.)? Inpatient: Screened on floor PATIENT GENDER DATA: Male PATIENT RELEVANT IMPLANT DATA REVIEWED: Yes PATIENT PRESENTS WITH AN IMPLANTABLE OR ATTACHED SAIL CUTTER: No RADIOLOGY DEPARTMENT: MR; Exam(s) Completed: Lower MSK: Knee, left PERIPHERAL IV DATA: Not applicable SIGNED BY: ALY Marrufo May 26, 2024 2:46 PM [facility] HNO ID: [id number] Author: MATT LEAL RT(R) Service: Radiology Author Type: Materials Recycler Type: [facility] Filed: 05/26/2024 13:45 Note Text: Radiology Service Progress Note PATIENT NAME: Yamilka Sharma DATE OF SERVICE: May 26, 2024 TIME: 1:44 PM PATIENT IDENTITY VERIFICATION COMPLETED USING TWO (2) IDENTIFIERS: Name and Date of confirmed by patient verbally. FALL SCREENING: Has the patient had 2 falls in the last year or 1 fall with injury or currently using an Ambulatory Assistive Device (Walker, Cane, Wheelchair, Crutches, etc.)? Inpatient: Screened on floor PATIENT GENDER DATA: Male PATIENT RELEVANT IMPLANT DATA REVIEWED: Not Applicable PATIENT PRESENTS WITH AN IMPLANTABLE OR ATTACHED SAIL CUTTER: No RADIOLOGY DEPARTMENT: General X-ray: Exam(s) Completed: Lower Extremity X-Ray(s): Foot, Right PERIPHERAL IV DATA: Not applicable SIGNED BY: RT Dheeraj(R) May 26, 2024 1:44 PM [facility] HNO ID: [id number] Author: LUIS GARCÍA CT Service: Radiology Author Type: Technologist Type: [facility] Filed: 05/26/2024 08:53 Note Text: Radiology Service Progress Note PATIENT NAME: Yamilka Sharma DATE OF SERVICE: May 26, 2024 TIME: 8:52 AM PATIENT IDENTITY VERIFICATION COMPLETED USING TWO (2) IDENTIFIERS: Name and Date of confirmed by patient verbally and Name and Date of confirmed by identification band. FALL SCREENING: Has the patient had 2 falls in the last year or 1 fall with injury or currently using an Ambulatory Assistive Device (Walker, Cane, Wheelchair, Crutches, etc.)? Inpatient: Screened on floor PATIENT GENDER DATA: Male PATIENT RELEVANT IMPLANT DATA REVIEWED: Not Applicable PATIENT PRESENTS WITH AN IMPLANTABLE OR ATTACHED SAIL CUTTER: No RADIOLOGY DEPARTMENT: Ultrasound PERIPHERAL IV DATA: Not applicable SIGNED BY: TAIWO Proctor May 26, 2024 8:52 AM Normal [facility] Bacteria Wnd Culton 05-26-20 24 Bacteria identified Cx Nom (Wound) CULTURE, WOUND: No growth GRAM STAIN: No organisms seen No Polymorphonuclear Leukocytes Normal [facility] Comment on above: Performed By: #### 6 462-6 ####[facility] LABCLIA [id number] [facility] [id number] [address] [place] Basic metabolic 2000 panelon 05-26-2024 Anion gap [Moles/Vol] 10 mmol/L Normal 8-15 [facility] Comment on above: Order Comment: Speci men Type: BLOOD SPECIMENOrdering Facility: [facility] Address: [address] [place] [address] Performed By: #### 2 4321-2, 2276-4, 25163-3, 1988-02, 3083-10, ####[facility] [id number] [place] [address] [place] Calcium [Mass/Vol] 9.1 mg/dL Normal 8.5-10.2 [facility] Comment on above: Order Comment: Speci men Type: BLOOD SPECIMENOrdering Facility: [facility] Address: [address] [place] [address] Performed By: #### 2 4321-2, 6-4, 26180-8, 1988-02, 3083-10, ####[facility]ORYCLIA [id number] [place] [address] [place] Chloride [Moles/Vol] 98 mmol/L Normal 98-107 [facility] Comment on above: Order Comment: Speci men Type: BLOOD SPECIMENOrdering Facility: [facility] Address: [address] [place] [address] Performed By: #### 2 4321-2, 2276-4, 44512-8, 1988-02, 3083-10, ####[facility]ORYCLIA [id number] [place] [address] [place] CO2 [Moles/Vol] 28 mmol/L Normal 22-30 [facility] Comment on above: Order Comment: Santo malik Type: BLOOD SPECIMENOrdering Facility: [facility] Address: [address] [place] [address] Performed By: #### 2 4321-2, 2276-4, 52591-0, 1988-02, 3083-10, ####[facility]ORYCLIA [id number] [place] [id number] [place] Creatinine [Mass/Vol] 2.21 mg/dL High 0.73-1.22 [facility] Comment on above: Order Comment: Santo malik Type: BLOOD SPECIMENOrdering Facility: [facility] Address: [address] [place] [address] Performed By: #### 2 4321-2, 2276-4, 20256-9, 1988-02, 3083-10, ####[facility]ORY[facility]IA [id number] [place] [id number] [place] Creatinine and Glomerular filtration rate.predicted panel (S/P/Bld) 33 mL/min/1.73m??? Low >=60 [facility] Comment on above: Order Comment: Santo malik Type: BLOOD SPECIMENOrdering Facility: [facility] Address: [address] [place] [address] Result Comment: Karissa mated Glomerular Filtration Rate (eGFR) is calculated using the 2020 CKD-EPI creatinine equation. This equation utilizes serum creatinine, sex, and age as parameters. The creatinine assay has traceable calibration to isotope dilution-mass spectrometry. Refer to KDIGO guidelines for clinical interpretation. In patients with unstable renal function, e.g. those with acute kidney injury, the eGFR may not accurately reflect actual GFR. Performed By: #### 2 4321-2, 2276-4, 78386-0, 1988-02, 3083-10, ####[facility]ORYCLIA [id number] [place] [address] [place] Glucose [Mass/Vol] 139 mg/dL High 74-99 [facility] Comment on above: Order Comment: Santo malik Type: BLOOD SPECIMENOrdering Facility: [facility] Address: [address] [place] [address] Result Comment: The [place] Diabetes Association (ADA) provides guidance for cutoff values for fasting glucose and random glucose. The ADA defines fasting as no caloric intake for at least 8 hours. Fasting plasma glucose results between 100 to 125 mg/dL indicate increased risk for diabetes (prediabetes). Fasting plasma glucose results greater than or equal to 126 mg/dL meet the criteria for diagnosis of diabetes. In the absence of unequivocal hyperglycemia, results should be confirmed by repeat testing. In a patient with classic symptoms of hyperglycemia or hyperglycemic crisis, random plasma glucose results greater than or equal to 200 mg/dL meet the criteria for diagnosis of diabetes. Reference: Standards of Medical Care in Diabetes 2016, [place] [employer]. Diabetes Care. 2016.39(Suppl 1). Performed By: #### 2 4321-2, 2276-4, 14581-6, 1988-02, 3083-10, ####[facility]ORYCLIA [id number] [place] [id number] [place] Potassium [Moles/Vol] 4.5 mmol/L Normal 3.7-5.1 [facility] Comment on above: Order Comment: Santo malik Type: BLOOD SPECIMENOrdering Facility: [facility] Address: [address] [place] [address] Performed By: #### 2 4321-2, 2276-4, 84244-3, 1988-02, 3083-10, ####[facility]ORYCLIA [id number] [place] [address] [place] Sodium [Moles/Vol] 136 mmol/L Normal 136-144 [facility] Comment on above: Order Comment: Santo malik Type: BLOOD SPECIMENOrdering Facility: [facility] Address: [address] [place] [address] Performed By: #### 2 4321-2, 2276-4, 36823-0, 1988-02, 3083-, ####[facility]ORYCLIA [id number] [place] [address] [place] Urea nitrogen [Mass/Vol] 60 mg/dL High 9-24 [facility] Comment on above: Order Comment: Speci men Type: BLOOD SPECIMENOrdering Facility: [facility] Address: [address] [place] [id number] Performed By: #### 2 4321-2, 2276-4, 38504-3, 1988-5, 3084-1, 26009-8 ####[facility]ORYCLIA [id number] [place] [address] [facility] CASE MGT INIT ASSESon 2023 CASE MGT INIT ASSES HNO ID: [id number] Author: THEA RUIZ RN Service: ? Author Type: Registered Nurse Type: Care Mgt Initial Assessment Filed: 05/26/2024 08:56 Note Text: CARE MANAGEMENT: ASSESSMENT AND DISCHARGE PLAN SERVICE DATE: May 26, 2024 SERVICE TIME: 8:52 AM public health nutritionist spoke with patient at bedside to complete Care Management Assessment. Introduction made and role of Care Management explained. PCP: Najma Bloom DO - patient confirmed Primary Contact: Primary Emergency Contact: Jessica Sharma [address] [place] [address] [facility] Mobile Relation: Spouse Secondary Emergency Contact: Yamilka Sharma Jr Mobile Relation: Son Admission Status: Inpatient Insurance Provider: BLUE CARD PPO OOS Discharge Planning requested by: Per Department Practice Potential Transition Plans Home Advance Directives Current Advance Directive: Health Care Power of Candy Separator Enrobing In Chart: Yes Current Living Arrangements and Support Lives with: Family members (Spouse and Daughter) Type of Residence: Private Residence (House) (House: One Story with Basement and 2-3 entry steps. Basement Steps have Stair/Chair Lift.) Does the patient have to climb stairs at home?: Yes;stairs outside the home;stairs within the home Support: Family members (Spouse and Daughter) How do you manage to accomplish the following: Independent: Ambulation;Bathe/Shower; Dress;Meals/Meal Prep;Going to the bathroom;Medication Management;Transportatio n to appointments/community Current Services/Equipment Current Post-Acute Service(s): DME Current DME Type: Cane, Walker, Shower seat, Grab bars (Blood Pressure Monitor. Blood Pressure Monitor.) Current Post-Acute Service(s) Provider: None Discharge Planning Patient Goal(s): Be able to go home [place] Explained: [place] Given: No (Discharge Needs: To be Determined) Are you interested in bedside delivery of your medications? No Preference: [facility] Preference: [facility] Discharge Planning Participant(s): Patient Caregiver Assessment: Caregiver is ready, willing and able to meet the patient's needs as recommended by the inter-professional team: No Caregiver needed Transport at Discharge: Transportation Arrangements: Car Destination: Home Needs Prior to Discharge: Needs Prior to Discharge: To Be Determined Post-Acute Discharge Plan: From home. Lives with spouse and daughter. Reports Independent. No active services. Reports DME: Cane, Walker, Shower seat, Grab bars. Blood Pressure Monitor. Blood Pressure Monitor. Discharge Plan: Return Home Discharge Transportation: Spouse. dept to Follow. SIGNATURE: hTea Ruiz RN PATIENT NAME: Yamilka Sharma DATE: May 26, 2024 TIME: 8:51 AM CONTACT #: [phone] Normal [facility] CBC panel Auto (Bld)on 05-26 Erythrocyte distribution width (RBC) [Ratio] 14.6 % Normal 11.5-15.0 [facility] Comment on above: Order Comment: Santo malik Type: BLOOD SPECIMENOrdering Facility: [facility] Address: [address] [place] [address] Performed By: #### 5 8410-2 ####[facility]ORYCLIA [id number] [place] [address] [place] Hematocrit (Bld) [Volume fraction] 36.4 % Low 39.0-51.0 [facility] Comment on above: Order Comment: Santo malik Type: BLOOD SPECIMENOrdering Facility: [facility] Address: [address] [place] [address] Performed By: #### 5 8410-2 ####[facility]ORYCLIA [id number] [place] [address] [place] Hemoglobin (Bld) [Mass/Vol] 11.5 g/dL Low 13.0-17.0 [facility] Comment on above: Order Comment: Speci men Type: BLOOD SPECIMENOrdering Facility: [facility] Address: [address] [place] [address] Performed By: #### 5 8410-2 ####[facility]ORYCLIA [id number] [address] MCH (RBC) [Entitic mass] 26.0 pg Normal 26.0-34.0 [facility] Comment on above: Order Comment: Speci men Type: BLOOD SPECIMENOrdering Facility: [facility] Address: [address] [place] [address] Performed By: #### 5 8410-2 ####[facility]ORYCLIA [id number] [address] MCHC (RBC) [Mass/Vol] 31.6 g/dL Normal 30.5-36.0 [facility] Comment on above: Order Comment: Speci men Type: BLOOD SPECIMENOrdering Facility: [facility] Address: [address] [place] [address] Performed By: #### 5 8410-2 ####[facility]ORYCLIA [id number] [address] MCV (RBC) [Entitic vol] 82.4 fL Normal 80.0-100.0 [facility] Comment on above: Order Comment: Speci men Type: BLOOD SPECIMENOrdering Facility: [facility] Address: [address] [place] [address] Performed By: #### 5 8410-2 ####[facility]ORYCLIA [id number] [address] Nucleated RBC (Bld) [#/Vol] 10*3/uL Normal <0.01 [facility] Comment on above: Order Comment: Speci men Type: BLOOD SPECIMENOrdering Facility: [facility] Address: [address] [place] [address] Performed By: #### 5 8410-2 ####[facility]ATORYCLIA [id number] [place] [address] [place] Platelet mean volume (Bld) [Entitic vol] 10.0 fL Normal 9.0-12.7 [facility] Comment on above: Order Comment: Santo malik Type: BLOOD SPECIMENOrdering Facility: [facility] Address: [address] [place] [address] Performed By: #### 5 8410-2 ####[facility]ORYCLIA [id number] [address] [place] Platelets (Bld) [#/Vol] 172 10*3/uL Normal 150-400 [facility] Comment on above: Order Comment: Santo malik Type: BLOOD SPECIMENOrdering Facility: [facility] Address: [address] [place] [address] Performed By: #### 5 8410-2 ####[facility]CLIA [id number] [address] RBC (Bld) [#/Vol] 4.42 10*6/uL Normal 4.20-6.00 [facility] Comment on above: Order Comment: Santo malik Type: BLOOD SPECIMENOrdering Facility: [facility] Address: [address] [place] [address] Performed By: #### 5 8410-2 ####[facility]ORYCLIA [id number] [address] OF [place] WBC (Bld) [#/Vol] 11.23 10*3/uL High 3.70-11.00 [facility] Comment on above: Order Comment: Santo malik Type: BLOOD SPECIMENOrdering Facility: [facility] Address: [address] [place] [address] Performed By: #### 5 8410-2 ####[facility]ORYCLIA [id number] [place] [id number] [facility] CONSULTon 05-26-2024 CONSULT HNO ID: [id number] Author: MAURO LEE DPM Service: Podiatry Author Type: Physician Type: Consults Filed: 05/26/2024 20:28 Note Text: CONSULT: POD SURGICAL SERVICE SERVICE DATE: 05/26/2024 SERVICE TIME: 12:18 PM REASON FOR CONSULT: Great toe ulcer, RT foot PRIMARY CARE PHYSICIAN: Najma Bloom, DO ASSESSMENT AND PLAN RT great toe osteomyelitis, distal phalanx RT foot great toe pathological fracture, distal phalanx RT foot Cellulitis Ulcer, right great toe, level of bone Stage IIIB chronic kidney disease Type II diabetes with neuropathy Chart and labs reviewed 05/26/24: 150 Glucose, Uric acid 6.2, CRP: 4.9, WBC: 11.23 05/26/24 RT foot xrays: pending 05/26/24 RT foot 1st digit culture: pending 05/17/24 RT foot MRI: Great toe fracture. No definitive MRI findings of osteomyelitis although bone marrow evaluation is limited by changes related to the fracture. 05/17/24 RT Foot 1st digit culture: Strep dysgalactiae, negative staph species 05/16/24 US DVT BL: Negative DVT bilaterally, Right is positive for valvular incompetency in distal external illiac and femoral vein. 05/16/24 PVR RAHEL: Normal waveforms. Resting right ankle brachial index: 1.21. Resting left ankle brachial index: 1.19 Wound Care: Cleanse with vashe and pat dry. Apply betadine paint to ulcer on 1st great digit, right foot with urgotul, 4x4s, kerlix and pavel wrap. Apply betadine paint to ulcer on 1st great digit, right foot with urgotul, 4x4s, kerlix and pavel wrap. Nursing dressing orders in Podiatry dressing change today Weight bearing status: NWB Right foot, WBAT to left foot. Patient has findings concerning for chronic osteomyelitis that caused his pathological fracture of the distal phalanx seen on his recent foot MRI. He has a PICC line established prior to admission where he was already getting antibiotics for his osteomyelitis. Reviewed previous imaging findings with patient and understands the wound probes to bone today, obtained bedside culture swab of the 1st toe, right foot. RT great toe medial ulcer treated with excisional debridement carried out of the wound with non selective sharp excisional debridement past the dermis into BONE level with use of curette and 15 scalpel blade. Devitalized tissue removed. We then flushed out the wound with sterile saline. Patient tolerated debridement without numbing agent. Wound measurements are noted in the objective section. Obtained wound culture post debridement RT great toe Will obtain new XR RT foot today to check if osteomyelitis has progressed. Discussed conservative and surgical options. Discussed continued IV antibiotics and wound care vs amputation with patient. Discussed all risks and benefits of all options. All questions were answered. Our recommendation is partial amputation of RT great toe given his previous cultures were positive, MRI was suspecting OM with pathological fracture of distal phalanx and has sinus tract to the medial aspect of his distal phalanx great toe. We will monitor toe and follow culture. If the culture is positive then we discussed doing partial amputation of the toe. He is agreeable if culture is positive. Tentatively we will put him on for surgery on Thursday with Dr Campos to hold spot for OR for RT partial hallux amp. SUBJECTIVE Mr. Sharma is a 58 year old male with hx of DM2 afib HTN CAD obesity non-hodgkin's lymphoma s/p chemo 3 yrs ago with chronic med port in place for difficult IV access, recent hospital stay at for R toe cellulitis/wound s/p abx/debridement and left knee swelling/pain s/p arthrocentesis negative for infection/crystals, who presents with continued pain/swelling of left knee and fall today without knee trauma. He reports his knee just gave out. No fevers chills chest pain SOB URI symptoms. He sees his vascular manager Dr. Coleman for his wound care of the right great toe and has had imaging and multiple rounds of antibiotics for his chronic osteomyelitis. He reports there is a fracture of this toe and is painful and did not recall an injury for this. PAST MEDICAL HISTORY: PAST MEDICAL HISTORY No date: Acute exacerbation of chronic obstructive airways disease (HCC) Comment: Rx for augmentin, symptomatic care as needed. Patient denies COPD, asthma, uses an inhaler PRN usually about once a year with hot weather No date: Anemia No date: Depression 07/14/2019: Diffuse large B cell lymphoma (HCC) No date: Encounter for screening for malignant neoplasm of prostate 05/26/2024: Essential hypertension Comment: continue Lisinopril No date: Hydronephrosis No date: Hydronephrosis with ureteral stricture 10/30/2019: Hypomagnesemia 01/09/2023: Nausea and vomiting 12/15/2022: Obesity, Class II, BMI 35-39.9 No date: DEISI (obstructive sleep apnea) Comment: mild and no CPAP 01/10/2023: Paroxysmal atrial fibrillation (HCC) 01/09/2023: Prostatitis 10/25/2019: Sepsis due to gram-negativ (more content not included)... Normal [facility] CONSULT HNO ID: [id number] Author: AMRIT DEL VALLE MD Service: Infectious Disease Author Type: Physician Type: Consults Filed: 05/26/2024 11:52 Note Text: INFECTIOUS DISEASE INITIAL CONSULT SERVICE DATE: 05/26/2024 SERVICE TIME: 11:40 AM REASON FOR CONSULT: Toe infection Subjective Patient is seen at the request of Dr Avery. My final recommendations will be communicated back to the requesting physician by way of copy of this note or shared electronic medical record. HPI: Yamilka Bernard Amarasimin who is a 58 year old male with hx of DM2 afib HTN CAD obesity non-hodgkin's lymphoma s/p chemo 3 yrs ago with chronic med port in place for difficult IV access, recent hospital stay at for R toe cellulitis/wound s/p abx/debridement and left knee swelling/pain s/p arthrocentesis negative for infection/crystals, who presents with continued pain/swelling of left knee and fall today without knee trauma. He reports his knee just gave out. No fevers chills chest pain SOB URI symptoms. Ortho and podiatry consulted PAST MEDICAL HISTORY No date: Acute exacerbation of chronic obstructive airways disease (HCC) Comment: Rx for augmentin, symptomatic care as needed. Patient denies COPD, asthma, uses an inhaler PRN usually about once a year with hot weather No date: Anemia No date: Depression 07/14/2019: Diffuse large B cell lymphoma (HCC) No date: Encounter for screening for malignant neoplasm of prostate 05/26/2024: Essential hypertension Comment: continue Lisinopril No date: Hydronephrosis No date: Hydronephrosis with ureteral stricture 10/30/2019: Hypomagnesemia 01/09/2023: Nausea and vomiting 12/15/2022: Obesity, Class II, BMI 35-39.9 No date: DEISI (obstructive sleep apnea) Comment: mild and no CPAP 01/10/2023: Paroxysmal atrial fibrillation (HCC) 01/09/2023: Prostatitis 10/25/2019: Sepsis due to gram-negative UTI (HCC) ([facility]) No date: Thrombocytopenia (HCC) 05/26/2024: Type 2 diabetes mellitus (HCC) Comment: continue current meds No date: Ureteral obstruction, left No date: Urinary tract infection 01/09/2023: Vitamin D deficiency PAST SURGICAL HISTORY 1982: APPENDECTOMY 07/20/2019: BONE MARRO ASPIRATE AND BIOPSY 2020: CYSTOSCOPY No date: KNIFE,CARPAL TUNNEL,; Bilateral Comment: Carpal Tunnel Surgery 06/10/201306/2019: NEPHROSTOMY TUBE 2012: PAST SURGICAL HISTORY OF Comment: temporal arterial biopsy 2013: PAST SURGICAL HISTORY OF Comment: sinus scraping, deviated septum repair No date: PAST SURGICAL HISTORY OF; Right Comment: PURPLE POWER PORT RIGHT CHEST No date: PAST SURGICAL HISTORY OF; Right Comment: TESTICLE REMOVED 02/19/2021: PAST SURGICAL HISTORY OF Comment: ureter stent Social History Tobacco Use Smoking status: Former Packs/day: 2.50 Years: 30.00 Additional pack years: 0.00 Total pack years: 75.00 Types: Cigarettes Start date: 10/26/1983 Quit date: 10/26/2014 Years since quittin.5 Smokeless tobacco: Never Tobacco comments: cigarette; Start date: 1983; Not interested in quitting smoking; Amount: 10-19 cigs/day; quit 06/2015; Tobacco modified 11/15/2015; Tobacco reviewed with patient 11/15/2015 Vaping Use Vaping Use: Never used Substance Use Topics Alcohol use: Yes Comment: occasional Drug use: No FAMILY HISTORY Problem Relation Age of Onset other (Other inflammatory connective disorder) Mother Scleroderma other (Respiratory disorder) Mother other (Rheumatologic disorder) Mother other (Systemic lupus) Mother Heart Father Diabetes Father Diabetes Brother Diabetes Brother Cancer No Family History Immunization History Administered Date(s) Administered tetanus diphtheria pertussis (Tdap) vaccine, age 7+ yr (ADACEL, BOOSTRIX) 12/30/2023 Current Facility-Administered Medications Medication Dose Route Frequency acetaminophen 1,000 mg tab(s) (TYLENOL) 1,000 mg ORAL Q6H WHILE AWAKE lidocaine 4 % 1 Patch (SALONPAS) 1 Patch TRANSDERMAL DAILY AT 9 PM And lidocaine patch - REMOVE OTHER DAILY And lidocaine - VERIFY PATCH OTHER q 8 H diclofenac 1 % 4 g topical gel (VOLTAREN) 4 g TOPICAL QID oxyCODONE IR 5 mg tab(s) (ROXICODONE) 5 mg ORAL q 6 H PRN HYDROmorphone 0.5 mg injection (DILAUDID) 0.5 mg INTRAVENOUS q 3 H PRN insulin lispro injection (rapid acting) (ADMElog) SUBCUTANEOUS w MEALS insulin lispro injection (rapid acting) (ADMElog) SUBCUTANEOUS AT BEDTIME polyethylene glycol 3350 17 g packet 17 g ORAL DAILY PRN benzocaine-menthol 1 Lozenge (CEPACOL) 1 Lozenge MUCOUS MEMBRANE (TOPICAL MOUTH AND THROAT) q 2 H PRN benzonatate 100 mg cap(s) (TESSALON PERLE) 100 mg ORAL TID PRN calcium carbonate 1,000 mg chewable tab(s) (TUMS) 1,000 mg ORAL TID PRN prochlorperazine 10 mg injection (COMPAZINE) 10 mg INTRAVENOUS q 6 H PRN melatonin 3 mg tab(s) 3 mg ORAL AT BEDTIME PRN albuterol HFA 90 mcg/actuation 2 Puff (PROVENTIL HFA, VENTOLIN HFA) 2 Puff INHALATION q 4 H PRN allopurinol 100 mg tab(s) (ZYL (more content not included)... [facility] CONSULT HNO ID: [id number] Author: KARL MATOS PA-C Service: Orthopaedic Surgery Author Type: Physician Palm And Back Forger Type: Consults Filed: 05/26/2024 11:00 Note Text: -------- Attestation signed by Cesar Lezama MD at 05/27/2024 3:55 PM Agree with above. Appears to be an inflammatory type of effusion. No evidence of infection. Depending on his surgical needs for his right foot, repeat aspiration with cortisone injection may be appropriate though I would leave the steroid decision to his lower extremity surgical team. Gentle compression and icing and motion of the knee recommended. Cesar Lezama MD -------- ORTHOPAEDIC SURGERY CONSULT NOTE SERVICE DATE: 05/26/2024 SERVICE TIME: 9:40 AM PRIMARY CARE PHYSICIAN: Najma Bloom, DO ASSESSMENT AND PLAN 58 year old male presenting with left knee pain and effusion Left knee SF results reviewed; consistent with hemarthrosis MRI left knee to evaluate for possible occult fracture versus internal derangement NWB LLE pending MRI results Pain control per primary team Definitive recommendations to follow Discussed with Dr. Lezama and patient. SUBJECTIVE CHIEF COMPLAINT: consult to orthopaedics regarding left knee pain HPI: Yamilka Sharma is a 58 year old male with multiple medical problems including COPD, diffuse large B-cell lymphoma status postchemotherapy 3 years ago, atrial fibrillation anticoagulated on Eliquis, type 2 diabetes, chronic Mediport for difficult IV access presenting with left knee pain and effusion after a fall 2 weeks ago. The patient was evaluated for this left knee issue by orthopaedic surgery and rheumatology during recent admission to [facility] from 05/12/24 to 05/19/25. His left knee was aspirated by rheumatology and SF results notable for; bloody fluid, 50K RBC, 28K TNC, no crystals, no organisms on gram stain and NGTD on culture. The patient states he has been ambulating at home here and there. He had another fall yesterday which reaggravated his left knee. The patient states he ambulates without assistive devices at his baseline. Of note he is currently being treated for osteomyelitis of distal phalanx of right great toe by podiatry. He denies history of left knee surgery. The patient denies pain in any other extremities, paresthesias, or other orthopedic complaints. PAST MEDICAL HISTORY: PAST MEDICAL HISTORY No date: Acute exacerbation of chronic obstructive airways disease (HCC) Comment: Rx for augmentin, symptomatic care as needed. Patient denies COPD, asthma, uses an inhaler PRN usually about once a year with hot weather No date: Anemia No date: Depression 07/14/2019: Diffuse large B cell lymphoma (HCC) No date: Encounter for screening for malignant neoplasm of prostate 05/26/2024: Essential hypertension Comment: continue Lisinopril No date: Hydronephrosis No date: Hydronephrosis with ureteral stricture 10/30/2019: Hypomagnesemia 01/09/2023: Nausea and vomiting 12/15/2022: Obesity, Class II, BMI 35-39.9 No date: DEISI (obstructive sleep apnea) Comment: mild and no CPAP 01/10/2023: Paroxysmal atrial fibrillation (HCC) 01/09/2023: Prostatitis 10/25/2019: Sepsis due to gram-negative UTI (HCC) (HCC) No date: Thrombocytopenia (HCC) 05/26/2024: Type 2 diabetes mellitus ([facility]) Comment: continue current meds No date: Ureteral obstruction, left No date: Urinary tract infection 01/09/2023: Vitamin D deficiency PAST SURGICAL HISTORY: PAST SURGICAL HISTORY 1982: APPENDECTOMY 07/20/2019: BONE MARRO ASPIRATE AND BIOPSY 2019: CYSTOSCOPY No date: KNIFE,CARPAL TUNNEL,; Bilateral Comment: Carpal Tunnel Surgery 06/10/201306/2019: NEPHROSTOMY TUBE 2012: PAST SURGICAL HISTORY OF Comment: temporal arterial biopsy 2013: PAST SURGICAL HISTORY OF Comment: sinus scraping, deviated septum repair No date: PAST SURGICAL HISTORY OF; Right Comment: PURPLE POWER PORT RIGHT CHEST No date: PAST SURGICAL HISTORY OF; Right Comment: TESTICLE REMOVED 02/19/2021: PAST SURGICAL HISTORY OF Comment: ureter stent FAMILY HISTORY: FAMILY HISTORY Problem Relation Age of Onset other (Other inflammatory connective disorder) Mother Scleroderma other (Respiratory disorder) Mother other (Rheumatologic disorder) Mother other (Systemic lupus) Mother Heart Father Diabetes Father Diabetes Brother Diabetes Brother Cancer No Family History SOCIAL HISTORY: Social History Tobacco Use Smoking status: Former Packs/day: 2.50 Years: 30.00 Additional pack years: 0.00 Total pack years: 75.00 Types: Cigarettes Start date: 10/26/1983 Quit date: 10/26/2014 Years since quittin.5 Smokeless tobacco: Never Tobacco comments: cigarette; Start date: 1983; Not interested in quitting smoking; Amount: 10-19 cigs/day; quit 06/2015; Tobac (more content not included)... 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 Sharma is a 58 year old male with past medical history significant for: COPD: Depression, diffuse large B-cell lymphoma status postchemotherapy 3 years ago, hypertension, hydronephrosis, obstructive sleep apnea, atrial fibrillation, type 2 diabetes, chronic Mediport for difficult IV access who presented with pain and swelling of the left knee and a fall. As per patient recent hospitalization at [facility] for right toe cellulitis and wound status post antibiotics and debridement of left knee and arthrocentesis for negative for infection and crystals. Patient follows with me in office and last seen on 04/19/2024. Previous history of acute kidney injury. Patient with underlying CKD stage III with baseline creatinine 2.3-2.5 and GFR 30-35. Underlying etiology diabetic kidney disease. Last A1c 8.5. History of TURP and right ureteroscopy and right ureteral stent placement in the past. Last creatinine was 2.35 on patient was seen in my office with blood work on 04/18/2024. Patient remains on lisinopril 10 mg daily Farxiga 10 mg daily was also Ozempic. He was on Lasix 40 mg daily. He takes sodium bicarbonate 650 mg 2 tablet twice daily. Also second hyperparathyroidismwith PTH of 150-vitamin D of 41. History of hyperuricemia on allopurinol 100 mg twice daily. Recent CT scan revealed asymmetrical atrophy of left kidney bilateral mild atelectasis and hydroureter was unchanged. No urinary calculus PAST MEDICAL HISTORY No date: Acute exacerbation of chronic obstructive airways disease (HCC) Comment: Rx for augmentin, symptomatic care as needed. Patient denies COPD, asthma, uses an inhaler PRN usually about once a year with hot weather No date: Anemia No date: Depression 07/14/2019: Diffuse large B cell lymphoma (HCC) No date: Encounter for screening for malignant neoplasm of prostate 05/26/2024: Essential hypertension Comment: continue Lisinopril No date: Hydronephrosis No date: Hydronephrosis with ureteral stricture 10/30/2019: Hypomagnesemia 01/09/2023: Nausea and vomiting 12/15/2022: Obesity, Class II, BMI 35-39.9 No date: DEISI (obstructive sleep apnea) Comment: mild and no CPAP 01/10/2023: Paroxysmal atrial fibrillation (HCC) 01/09/2023: Prostatitis 10/25/2019: Sepsis due to gram-negative UTI (HCC) (HCC) No date: Thrombocytopenia (HCC) 05/26/2024: Type 2 diabetes mellitus (HCC) Comment: continue current meds No date: Ureteral obstruction, left No date: Urinary tract infection 01/09/2023: Vitamin D deficiency PAST SURGICAL HISTORY 1982: APPENDECTOMY 07/20/2019: BONE MARRO ASPIRATE AND BIOPSY 2019: CYSTOSCOPY No date: KNIFE,CARPAL TUNNEL,; Bilateral Comment: Carpal Tunnel Surgery 06/10/201306/2019: NEPHROSTOMY TUBE 2013: PAST SURGICAL HISTORY OF Comment: temporal arterial biopsy 2013: PAST SURGICAL HISTORY OF Comment: sinus scraping, deviated septum repair No date: PAST SURGICAL HISTORY OF; Right Comment: PURPLE POWER PORT RIGHT CHEST No date: PAST SURGICAL HISTORY OF; Right Comment: TESTICLE REMOVED 02/19/2021: PAST SURGICAL HISTORY OF Comment: ureter stent FAMILY HISTORY Problem Relation Age of Onset other (Other inflammatory connective disorder) Mother Scleroderma other (Respiratory disorder) Mother other (Rheumatologic disorder) Mother other (Systemic lupus) Mother Heart Father Diabetes Father Diabetes Brother Diabetes Brother Cancer No Family History Social History Tobacco Use Smoking status: Former Packs/day: 2.50 Years: 30.00 Additional pack years: 0.00 Total pack years: 75.00 Types: Cigarettes Start date: 10/26/1983 Quit date: 10/26/2014 Years since quittin.5 Smokeless tobacco: Never Tobacco comments: cigarette; Start date: 1983; Not interested in quitting smoking; Amount: 10-19 cigs/day; quit 06/2015; Tobacco modified 11/15/2015; Tobacco reviewed with patient 11/15/2015 Vaping Use Vaping Use: Never used Substance Use Topics Alcohol use: Yes Comment: occasional Drug use: No Prior to Admission Medications Prescriptions Last Dose Informant Patient Reported? Taking? Blood-Glucose Meter No Yes Si Each three times daily. Please match the test strips and lancets DULoxetine (CYMBALTA) 60 mg capsule 05/25/2024 at 0800 No Yes Sig: Take 1 capsule by mouth two times a day. FARXIGA 10 mg tablet 05/25/2024 at 0800 No Yes Sig: TAKE 1 TABLET DAILY WITH BREAKFAST SITagliptin phosphate (JANUVIA) 100 mg tablet 05/25/2024 at 0800 No Yes Sig: Take 1 tablet by sheila (more content not included)... Normal [facility] CRP [Mass/Vol] 4.9 mg/dL High <0.9 [facility] Comment on above: Order Comment: Speci men Type: BLOOD SPECIMENOrdering Facility: [facility] Address: [address] [place] [address] Performed By: #### 2 4321-2, 2276-4, 59256-7, 1988-02, 3083-10, ####[facility]ORY[facility]IA [id number] [address] STATES OF [facility] Creat ?Tm [facility] 05-26-20 24 Creatinine (U) [Mass/Vol] 69.2 mg/dL Normal 20.0-300.0 [facility] Comment on above: Order Comment: Speci men Type: URINE SPECIMENOrdering Facility: [facility] Address: [address] [place] [address] Performed By: #### 3 5678-2, 20820-3, UACR, 2890-2 ####[facility] LABCLIA [id number] [facility] [id number] [place] [address] [place] Ferritin [facility] 20[facility] Ferritin [Mass/Vol] 1211.0 ng/mL High 30.3-565.7 [facility] Comment on above: Order Comment: Speci men Type: BLOOD SPECIMENOrdering Facility: [facility] Address: [address] [place] [address] Performed By: #### 2 4321-2, 2276-4, 96372-8, 1988-02, 3083-10, ####[facility]ORYCLIA [id number] [place] [address] [place] Iron and Iron binding capaci ty panelon 05-26-2024 Iron [Mass/Vol] 31 ug/dL Low 41-186 [facility] Comment on above: Order Comment: Speci men Type: BLOOD SPECIMENOrdering Facility: [facility] Address: [address] [place] [address] Performed By: #### 2 4321-2, 2276-4, 68860-2, 1988-02, 3083-1, ####[facility]ORYCLIA [id number] [place] [id number] [place] [facility] Iron binding capacity [Mass/Vol] 174 ug/dL Low 232-386 [facility] Comment on above: Order Comment: Speci men Type: BLOOD SPECIMENOrdering Facility: [facility] Address: [address] [place] [address] Performed By: #### 2 4321-2, 2276-4, 19258-1, 1988-02, 3083-, ####[facility]ORYCLIA [id number] [place] [id number] [place] [facility] Iron/TIBC [Molar ratio] 17.8 % Normal 15.0-57.0 M [facility] Comment on above: Order Comment: Speci men Type: BLOOD SPECIMENOrdering Facility: [facility] Address: [address] [place] [address] Performed By: #### 2 4321-2, 2276-4, 90985-1, 1988-02, 3083-10, ####[facility]ORYCLIA [id number] [place] [id number] [place] MRI KNEE WO IVCON LTon 05-26 MRI KNEE WO IVCON LT * * *Final Report* * * DATE OF EXAM: May 26 2024 3:29PM [facility] 0212 - MRI KNEE WO IVCON LT / PROCEDURE REASON: Knee trauma, occult fracture suspected, xray done * * * * Physician Interpretation * * * * EXAMINATION: MRI LEFT KNEE WITHOUT CONTRAST PATIENT/TECHNOLOGIST PROVIDED HISTORY: L knee pain trauma CLINICAL HISTORY: 58 years old Male with Knee trauma, occult fracture suspected, xray done. Internal derangement Knee trauma, occult fracture suspected, xray done. TECHNIQUE: Routine non-contrast MRI of the knee MQ: [id number]_[id number] COMPARISON: Outside hospital LEFT knee radiographs 05/25/2024 RESULT: MENISCI: Medial Meniscus: Tear in the posterior horn and body with medial extrusion of the meniscal body. Lateral Meniscus: Intact. LIGAMENTS: ACL: Intact PCL: Intact MCL: Intact LCL Complex: Intact CARTILAGE: Medial Femoral Condyle: Normal Medial Tibial Plateau: Normal Lateral Femoral Condyle: Normal Lateral Tibial Plateau: Normal Patella: Moderate sized area(s) of full thickness cartilage loss and or fissuring along the lateral patellar facet with tiny area of degenerative subchondral cystic changes Trochlea: Small area(s) of full thickness cartilage loss and or fissuring with tiny area of degenerative subchondral cystic change. TENDONS: The distal quadriceps and patellar tendons are intact. The popliteus tendon is intact. BONES AND MARROW: No evidence of fracture or bone marrow replacing process. Sub-enthesial cystic changes in the intercondylar notch. MUSCLES: Muscle bulk and signal intensity are normal. Nonspecific mild edema like along the fascial planes of the distal quadriceps and proximal posterior compartment calf musculature which may be secondary to leakage of fluid from significant joint effusion. JOINT FLUID AND SYNOVIUM: Large joint effusion with mild synovitis. No Coats's cyst. OTHER: No other significant abnormality identified. Localizer images: No additional findings. IMPRESSION: No fracture. Medial meniscal tear. Large joint effusion with mild synovitis. Nonspecific mild edema like along the fascial planes of the distal quadriceps and proximal posterior compartment calf musculature which may be secondary to leakage of fluid from significant joint effusion. 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 Grinder: JOSÉ MANUEL Transcribe Date/Time: May 27 2024 7:35A Dictated by : BILL TAVAREZ DO This examination was interpreted and the report reviewed and electronically signed by: BILL TAVAREZ DO on May 27 2024 7:48AM EST [id number] Normal [facility] Procalcitonin SerPl-mCncon 0 05-26-2024 Procalcitonin [Mass/Vol] 0.21 ng/mL High <0.09 [facility] Comment on above: Order Comment: Speci men Type: BLOOD SPECIMENOrdering Facility: [facility] Address: [address] [place] [address] Result Comment: For a guided interpretation of test results, please visit the Change in Procalcitonin Calculator, [email or web address]. Performed By: #### 2 4321-2, 2276-4, 94369-7, 1988-5, 3084-1, 14204-5 ####[facility]ORYCLIA [id number] [place] [address] [place] Prot/Creat Uron 05-26-2024 Protein/Creatinine (U) [Mass ratio] 0.51 mg/mg High <0.15 [facility] Comment on above: Order Comment: Speci men Type: URINE SPECIMENOrdering Facility: [facility] Address: [address] [place] [address] Result Comment: Adul t Proteinuria Categories: <0.15 mg/mg is considered normal to mildly increased 0.15 - 0.50 mg/mg is considered moderately increased >0.50 mg/mg is considered severely increased KDIGO. (2013). KDIGO 2012 Clinical Practice Guideline for the Evaluation and Management of Chronic Kidney Disease. Official Journal of the International Society of Nephrology, 3(1), 1-150. Performed By: #### 3 5678-2, 35728-4, UACR, 2889-2 ####[facility] LABCLIA [id number] [address] [address] [place] Protein/Creatinine (U) [Mass ratio]on 05-26-2024 Protein (U) [Mass/Vol] 35 mg/dL High 0-20 [facility] Comment on above: Order Comment: Speci men Type: URINE SPECIMENOrdering Facility: [facility] Address: [address] [place] [id number] Performed By: #### 3 5678-2, 86223-1, UACR, 2889-2 ####[facility] LABCLIA [id number] [address] [address] [place] Sodium ?Tm Ur-sCncon 024 Sodium Unsp time (U) [Moles/Vol] 35 mmol/L Normal 14-216 [facility] Comment on above: Order Comment: Speci men Type: URINE SPECIMENOrdering Facility: [facility] Address: [address] [place] [address] Performed By: #### 3 5678-2, 06463-3, [facility], 2890-2 ####[facility] LABCLIA [id number] [facility] [id number] THERAPY NTon 05-26-2024 THERAPY NT HNO ID: [id number] Author: RONNIE ELLIOTT, WIL Service: Physical Therapy Author Type: Physical Therapist Type: Therapy (PT/OT/Speech/Resp) Filed: 05/26/2024 10:02 Note Text: -------- Summary: PT Missed Visit -------- PHYSICAL THERAPY MISSED VISIT SERVICE DATE: 05/26/2024 SERVICE TIME: 1001 ROOM: [place] [address] Patient not seen due to Incomplete Orders. Patient waiting for ortho consult. Will re-attempt later as schedule allows and with updated orders. SIGNATURE: Ronnie Elliott, PT PATIENT NAME: Yamilka Sharma DATE: May 26, 2024 TIME: 10:02 AM [facility] THERAPY NT HNO ID: [id number] Author: TASHIA COLVIN, OTR/L Service: Occupational Therapy Author Type: Occupational Therapist Type: Therapy (PT/OT/Speech/Resp) Filed: 05/26/2024 07:27 Note Text: OCCUPATIONAL THERAPY MISSED VISIT SERVICE DATE: 05/26/2024 SERVICE TIME: 723 ROOM: [place] [address] Patient not seen due to Incomplete Orders.Waiting for ortho consult. Will re attempt with updated orders. SIGNATURE: TRACY Posadas/Juan PATIENT NAME: Yamilka Sharma DATE: May 26, 2024 TIME: 7:26 AM Normal [facility] URINALYSIS, REFLEX MICROSCOP ICon 05-26-2024 Bacteria LM.HPF (Urine sed) [#/Area] Moderate Abnormal None Seen [facility] Comment on above: Order Comment: Speci men Type: URINE SPECIMENOrdering Facility: [facility] Address: [address] [place] [address] Performed By: #### L [id number] ####[facility]ORYCLIA [id number] [place] [address] [place] Bilirubin Ql (U) Negative Normal Negative [facility] Comment on above: Order Comment: Speci men Type: URINE SPECIMENOrdering Facility: [facility] Address: [address] [place] [address] Performed By: #### L [id number] ####[facility]ORYCLIA [id number] [address] [place] Clarity (Unsp spec) Cloudy Abnormal Clear [facility] Comment on above: Order Comment: Speci men Type: URINE SPECIMENOrdering Facility: [facility] Address: [address] [place] [address] Performed By: #### L [id number] ####[facility]ATORYCLIA [id number] [place] [address] [place] Color (U) Yellow Normal Yellow [facility] Comment on above: Order Comment: Speci men Type: URINE SPECIMENOrdering Facility: [facility] Address: [address] [place] [address] Performed By: #### L [id number] ####[facility]ORYCLIA [id number] [address] OF [place] Glucose Test strip (U) [Mass/Vol] 3+ Abnormal Negative [facility] Comment on above: Order Comment: Speci men Type: URINE SPECIMENOrdering Facility: [facility] Address: [address] [place] [address] Performed By: #### L [id number] ####[facility]ATORYCLIA [id number] [address] [place] Hemoglobin Ql (U) 1+ Abnormal Negative [facility] Comment on above: Order Comment: Speci men Type: URINE SPECIMENOrdering Facility: [facility] Address: [address] [place] [address] Performed By: #### L [id number] ####[facility]ORYCLIA [id number] [place] [address] [place] Ketones Ql (U) Negative Normal Negative [facility] Comment on above: Order Comment: Speci men Type: URINE SPECIMENOrdering Facility: [facility] Address: [address] [place] [address] Performed By: #### L [id number] ####[facility]ATORYCLIA [id number] [address] Leukocyte esterase Test strip Ql (U) 2+ Abnormal Negative [facility] Comment on above: Order Comment: Speci men Type: URINE SPECIMENOrdering Facility: [facility] Address: [address] [place] [address] Performed By: #### L [id number] ####[facility]ATORYCLIA [id number] [address] STATES [facility] Nitrite Ql (U) Negative Normal Negative [facility] Comment on above: Order Comment: Speci men Type: URINE SPECIMENOrdering Facility: [facility] Address: [address] [place] [address] Performed By: #### L [id number] ####[facility]ORYCLIA [id number] [address] OF [place] pH (U) 6.0 [pH] Normal 5.0-8.0 [facility] Comment on above: Order Comment: Speci men Type: URINE SPECIMENOrdering Facility: [facility] Address: [address] [place] [address] Performed By: #### L [id number] ####[facility]ORYCLIA [id number] [address] [place] Protein (U) [Mass/Vol] 1+ Abnormal Negative [facility] Comment on above: Order Comment: Speci men Type: URINE SPECIMENOrdering Facility: [facility] Address: [address] [place] [address] Performed By: #### L [id number] ####[facility]ORYCLIA [id number] [place] [address] [place] RBC LM.HPF (Urine sed) [#/Area] 3-5 /HPF Abnormal 0-3 /HPF [facility] Comment on above: Order Comment: Speci men Type: URINE SPECIMENOrdering Facility: [facility] Address: [address] [place] [address] Performed By: #### L [id number] ####[facility]ORYCLIA [id number] [address] Specific gravity (U) [Rel density] 1.015 Normal 1.005-1.030 [facility] Comment on above: Order Comment: Speci men Type: URINE SPECIMENOrdering Facility: [facility] Address: [address] [place] [address] Performed By: #### L [id number] ####[facility]ORYCLIA [id number] [address] Urobilinogen Ql (U) 0.2 EU/dL Normal 0.2-1.0 EU/dL [facility] Comment on above: Order Comment: Speci men Type: URINE SPECIMENOrdering Facility: [facility] Address: [address] [place] [address] Performed By: #### L [id number] ####[facility]ORYCLIA [id number] [address] [place] WBC LM.HPF (Urine sed) [#/Area] /[HPF] Abnormal 0-5 /HPF [facility] Comment on above: Order Comment: Speci men Type: URINE SPECIMENOrdering Facility: [facility] Address: [address] [place] [address] Performed By: #### L [id number] ####[facility]ATORYCLIA [id number] [place] [address] [place] US KIDNEY/BLADDERon 05-26-20 24 US KIDNEY/BLADDER * * *Final Report* * * DATE OF EXAM: May 26 2024 8:40AM [facility] 1055 - US KIDNEY/BLADDER / PROCEDURE REASON: Kidney failure, acute * * * * Physician Interpretation * * * * EXAMINATION: RENAL ULTRASOUND CLINICAL HISTORY: 58 years old Male with Kidney failure, acute TECHNIQUE: Sonography of the kidneys and urinary bladder was performed. Images were obtained and stored in a permanent archive. MQ: UR_1 COMPARISON: CT 05/11/2024 RESULT: Right Kidney: -Renal length: 13.0 cm -Parenchyma: Normal parenchymal echogenicity. Normal parenchymal thickness. -Collecting system: No hydronephrosis. -Calculus: No echogenic, shadowing calculus. -Lesion: None. Left Kidney: -Renal length: 12.1 cm -Parenchyma: Normal parenchymal echogenicity. Diffuse parenchymal thinning present. -Collecting system: Moderate hydroureteronephrosis with proximal ureter measuring 2.7 cm which persists post void. -Calculus: No echogenic, shadowing calculus. -Lesion: None. Bladder: Distended urinary bladder with layering debris. Prevoid urinary bladder volume: 270 mL Post void residual volume: 129 mL IMPRESSION: Atrophic LEFT kidney with moderate LEFT hydroureteronephrosis similar to CT 05/11/2024. Prior CT demonstrated postsurgical changes of LEFT psoas hitch with ureteral implantation. Interval resolution of RIGHT hydroureteronephrosis. Distended urinary bladder with debris and significant post void residual. Grinder: PSCAusten Transcribe Date/Time: May 26 2024 9:48A Dictated by : BILL TAVAREZ DO This examination was interpreted and the report reviewed and electronically signed by: BILL TAVAREZ DO on May 26 2024 9:55AM EST [id number] Normal [facility] Urate SerPl-mCncon 4 Urate [Mass/Vol] 6.2 mg/dL Normal 4.0-8.1 [facility] Comment on above: Order Comment: Speci men Type: BLOOD SPECIMENOrdering Facility: [facility] Address: [address] [place] [address] Performed By: #### 2 4321-2, 2276-4, 18177-0, 1988-5, 3084-1, 75408-1 ####[facility] [id number] [place] [address] [place] XR FOOT 3V AP/LAT/OBL RTon 0 05-26-2024 XR FOOT 3V AP/LAT/OBL RT * * *Final Report* * * DATE OF EXAM: May 26 2024 1:44PM MDX 5337 - XR FOOT 3V AP/LAT/OBL RT / PROCEDURE REASON: Foot swelling, diabetic, osteomyelitis suspected * * * * Physician Interpretation * * * * HISTORY: Foot swelling, diabetic, osteomyelitis suspected osteomyelitis TECHNIQUE: 3 portable views COMPARISON: 05/12/2024 RESULT: Bony lucency at the plantar aspect of the base of the distal phalanx of the great toe may be a pathologic fracture due to osteomyelitis. No other possible bony destructive change is seen. This is not seen on the previous exam. IMPRESSION: Suspect osteomyelitis of the distal phalanx of the great toe. Grinder: PSCB Transcribe Date/Time: May 26 2024 3:33P Dictated by : JARED FRANCOIS MD This examination was interpreted and the report reviewed and electronically signed by: JARED FRANCOIS MD on May 26 2024 3:35PM EST [id number] Normal [facility] 12 Lead EKGon 05-25-2024 12 Lead EKG [facility] Cardiovascular Services [address] [place] [address] 12 Lead EKG 05/25/24 1042 MR#: [id number] Acct: [id number] Name: YAMILKA SHARMA Rep #: [id number] : 1965 58 From: Gerardo Biswas MD Attending Dr: Status: DEP ER Ordering Dr: Van Thompson DO Date: 05/25/24 Location: ED Sex: M C Admitted: Test Reason : LOWER LEG PAIN Blood Pressure : / mmHG Vent. Rate : 099 BPM Atrial Rate : 099 BPM P-R Int : 220 ms QRS Dur : 088 ms QT Int : 348 ms P-R-T Axes : 081 -24 049 degrees QTc Int : 446 ms Sinus rhythm with 1st degree A-V block Possible Anterior infarct , age undetermined Abnormal ECG Confirmed by KAYLA FIGUEROA, JEREMY ([id number]), editor in chief CORRINE KHALIL ([id number]) on 05/27/2024 10:22:59 AM Referred By: Confirmed By:DARREN BISWAS MD 05/27/24 1023 Date Gerardo Biswas MD CC: Dr. Najma Bloom, DO; Dr. Van Thompson DO Signed Normal [facility] Basic Metabolic Profile (BMP )on 05-25-2024 BUN/CRE 26.9 RATIO High 10-20 [facility] Comment on above: Performed By: #### L 100.0100, L500.2500 #### [facility] [address] [place], [address] CA,Total 9.3 mg/dL Normal 8.5-10.1 [facility] Comment on above: Performed By: #### L 100.0100, L500.2500 #### [facility] [address] [place], [address] Chloride [Moles/Vol] 98 mmol/L Normal 98-107 [facility] Comment on above: Performed By: #### L 100.0100, L500.2500 #### [facility] [address] [place], [address] CO2 [Moles/Vol] 28.0 mmol/L Normal 21.0-32.0 [facility] Comment on above: Performed By: #### L 100.0100, L500.2500 #### [facility] [address] [place], [address] Creatinine [Mass/Vol] 2.53 mg/dL High 0.70-1.30 [facility] Comment on above: Result Comment: The validity of the calculated GFR GFRAA in patients over 70 years has not been determined. Clinical correlation is essential. Performed By: #### L 100.0100, L500.2500 #### [facility] [address] [place], [address] ECRCL 42.40 ml/min Normal [facility] Comment on above: Performed By: #### L 100.0100, L500.2500 #### [facility] [address] [place], [address] EST GFR - AA 34 mL/min Low >60 [facility] Comment on above: Result Comment: Afri can Colombian GFR Calc Performed By: #### L 100.0100, L500.2500 #### [facility] [address] [place], [address] GAP 6 Normal 5-15 [facility] Comment on above: Performed By: #### L 100.0100, L500.2500 #### [facility] [address] [place], [address] GFR/1.73 sq M.predicted among non-blacks MDRD (S/P/Bld) [Vol rate/Area] 28 mL/min/{1.73_m2} Low >60 [facility] Comment on above: Result Comment: Non- GFR Calc Performed By: #### L 100.0100, L500.2500 #### [facility] [address] [place], [address] Glucose [Mass/Vol] 254 mg/dL High 74-106 [facility] Comment on above: Result Comment: Gluc ose result greater than or equal to 200 mg/dL suggests DIABETES MELLITUS per A.D.A. criteria. Performed By: #### L 100.0100, L500.2500 #### [facility] [address] [place], [address] Potassium [Moles/Vol] 4.7 mmol/L Normal 3.5-5.1 [facility] Comment on above: Performed By: #### L 100.0100, L500.2500 #### [facility] [address] [place], [address] Sodium [Moles/Vol] 132 mmol/L Low 136-145 [facility] Comment on above: Performed By: #### L 100.0100, L500.2500 #### [facility] [address] [place], [address] Urea nitrogen [Mass/Vol] 68 mg/dL High 7-18 [facility] Comment on above: Performed By: #### L 100.0100, L500.2500 #### [facility] [address] [place], [address] CBC W/Diff, Automatedon 07-3 -2023 Absolute Lymph 1.35 X10 3/uL Normal 0.83-4.51 [facility] Comment on above: Performed By: #### L 100.0100, L500.2500 #### [facility] [address] [place], [address] Absolute Neut 9.2 X10 3/uL High 2.0-7.7 [facility] Comment on above: Performed By: #### L 100.0100, L500.2500 #### [facility] [address] [place], [address] Basophils/100 WBC (Bld) 0.4 % Normal 0-1 [facility] Comment on above: Performed By: #### L 100.0100, L500.2500 #### [facility] [address] [place], [address] Eosinophils/100 WBC (Bld) 1.6 % Normal 0-5 [facility] Comment on above: Performed By: #### L 100.0100, L500.2500 #### [facility] [address] [place], [address] Erythrocyte distribution width (RBC) [Ratio] 14.8 % High 11.6-14.6 [facility] Comment on above: Performed By: #### L 100.0100, L500.2500 #### [facility] [address] [place], [address] Hematocrit (Bld) [Volume fraction] 37.0 % Low 40-54 [facility] Comment on above: Performed By: #### L 100.0100, L500.2500 #### [facility] [address] [place], [address] Hemoglobin (Bld) [Mass/Vol] 11.6 g/dL Low 13.0-16.5 [facility] Comment on above: Performed By: #### L 100.0100, L500.2500 #### [facility] [address] [place], [address] IG% 1.000 High 0.0-0.9 [facility] Comment on above: Result Comment: IG% - Immature Granulocytes (promyelocytes, myelocytes and metamyelocytes) > 1% indicates that a LEFT SHIFT is Present. Performed By: #### L 100.0100, L500.2500 #### [facility] [address] [place], [address] Lymphocytes/100 WBC (Bld) 11.7 % Low 19-41 [facility] Comment on above: Performed By: #### L 100.0100, L500.2500 #### [facility] [address] [place], [address] MCH (RBC) [Entitic mass] 25.3 pg Low 27.0-32.0 [facility] Comment on above: Performed By: #### L 100.0100, L500.2500 #### [facility] [address] [place], [address] MCHC (RBC) [Mass/Vol] 31.4 g/dL Low 32-36 [facility] Comment on above: Performed By: #### L 100.0100, L500.2500 #### [facility] [address] [place], [address] MCV (RBC) [Entitic vol] 80.6 fL Normal 80-94 [facility] Comment on above: Performed By: #### L 100.0100, L500.2500 #### [facility] [address] [place], [address] Monocytes/100 WBC (Bld) 5.5 % Normal 0-10 [facility] Comment on above: Performed By: #### L 100.0100, L500.2500 #### [facility] [address] [place], [address] Neutrophils/100 WBC (Bld) 79.8 % High 47-70 [facility] Comment on above: Performed By: #### L 100.0100, L500.2500 #### [facility] [address] [place], [address] Nucleated RBC (Bld) [#/Vol] 0 10*3/uL Normal 0-5 [facility] Comment on above: Performed By: #### L 100.0100, L500.2500 #### [facility] [address] [place], [address] Platelet mean volume (Bld) [Entitic vol] 11.0 fL Normal 6.2-12.0 [facility] Comment on above: Performed By: #### L 100.0100, L500.2500 #### [facility] [address] [place], [address] Platelets (Bld) [#/Vol] 185 10*3/uL Normal 150-450 [facility] Comment on above: Performed By: #### L 100.0100, L500.2500 #### [facility] [address] [place], [address] RBC (Bld) [#/Vol] 4.59 10*6/uL Low 4.6-6.2 [facility] Comment on above: Performed By: #### L 100.0100, L500.2500 #### [facility] [address] [place], [address] RDW SD 43.7 fl Normal 35.1-43.9 [facility] Comment on above: Performed By: #### L 100.0100, L500.2500 #### [facility] [address] [place], [address] WBC (Bld) [#/Vol] 11.6 10*3/uL High 4.4-11.0 [facility] Comment on above: Performed By: #### L 100.0100, L500.2500 #### [facility] [address] [place], [address] CNPNon 05-25-2024 [facility] -------- YAMILKA SHARMA ([id number]) 1965 M Date Time Provider Department 05/25/24 JOAN MARTE [facility] During your visit today, we recorded the following information about you: Joan Marte MD 05/25/2024 1:44 PM Signed Pt recently admitted at for left knee pain (hx gout) seen by ortho and rheum, tap suggestive of inflammatory rather than septic arthritis but no crystals seen. Sent home with plans for office f-up. Comes back to ER with more pain in the knee and inability to walk. Admit to [facility]. Joan Marte MD Allergies As of Date: 05/25/2024 Noted Allergy Reaction ASPARTAME 06/05/2020 5 - Intolerance Comments: Severe headache BACTRIM (SULFAMETHOXAZOLE-TRIMET H*07/18/2016 4 - Hives 5 - Intolerance Comments: Reaction: gas Sensitivity: Intolerance. Sensitivity: Intolerance BIAXIN (CLARITHROMYCIN) 07/18/2016 16 - Unknown Comments: Indigestion/gas INFLUENZA VACCINE TRI-SP 09-10 10/29/2018 16 - Unknown Comments: Flu MONOSODIUM GLUTAMATE (MSG) 06/05/2020 5 - Intolerance Comments: Severe headache PANTOPRAZOLE 02/01/2021 6 - Diarrhea SULFA (SULFONAMIDE ANTIBIOTICS) 07/18/2016 2 - Rash 4 - Hives CLINDAMYCIN HCL 07/18/2016 6 - Diarrhea 8 - GI Upset 11 - Vomiting Comments: Reaction: Nausea/vomiting/diarrhea Other Reaction: stomach cramps Sensitivity: Intolerance Date Reviewed: 05/19/2024 Reviewed by: José Miguel Pedro RN - Fully Assessed Reason for Visit: Hospital To Hospital [[id number]] Prescriptions as of 05/25/2024 - metFORMIN (GLUCOPHAGE) 500 mg tablet Take 500 mg by mouth two times a day with meals. - glimepiride (AMARYL) 4 mg tablet Take 4 mg by mouth two times a day with meals. - furosemide (LASIX) 40 mg tablet Take 1 tablet by mouth once daily. - dilTIAZem CD (CARDIZEM CD, CARTIA XT) 120 mg 24 hr capsule Take 1 capsule by mouth once daily. - lisinopril (ZESTRIL) 5 mg tablet Take 1 tablet by mouth once daily. - acetaminophen (TYLENOL) 325 mg tablet Take 2 tablets by mouth every 6 hours as needed for pain. - amoxicillin-clavulanate potassium (AUGMENTIN) 875-125 mg per tablet Take 1 tablet by mouth every 12 hours for 10 days. - diclofenac (VOLTAREN) 1 % topical gel Apply 2 g to affected area four times daily. - polyethylene glycol 3350 17 gram packet Take 1 Packet by mouth once daily. Dissolve dose in 4 - 8 ounces of liquid and take as directed. - lancets (FlutherTOUCH DELICA PLUS LANCET) 33 gauge Use with blood glucose test three times a day. Insulin Dep? Yes - blood sugar diagnostic (FlutherTOUCH VERIO TEST STRIPS) test strip Use with blood glucose test three times a day. Insulin Dep? Yes - insulin glargine (LANTUS SOLOSTAR U-100 INSULIN) 100 unit/mL (3 mL) Inject 30 Units subcutaneously as directed - FARXIGA 10 mg tablet TAKE 1 TABLET DAILY WITH BREAKFAST - calcitriol (ROCALTROL) 0.25 mcg capsule Take 1 capsule by mouth every Thursday, Thursday, and Thursday. - b complex, c, folic acid 1 mg renal vitamins (NEPHROCAPS) 1 mg capsule Take 1 capsule by mouth once daily. - DULoxetine (CYMBALTA) 60 mg capsule Take 1 capsule by mouth two times a day. - rosuvastatin (CRESTOR) 40 mg tablet take 1 tablet daily - gabapentin (NEURONTIN) 600 mg tablet Take 1 tablet by mouth three times a day for 90 days. - lidocaine-prilocaine (EMLA) 2.5-2.5 % cream APPLY TO AFFECTED AREA NEEDED PRIOR TO CHEMOTHERAPY - semaglutide (OZEMPIC) 1 mg/dose (4 mg/3 mL) pen Inject 1 mg subcutaneously one time a week. - blood sugar diagnostic (FlutherTOUCH VERIO TEST STRIPS) test strip 1 Strip two times a day. Use with blood glucose test two times a day. Insulin Dep? No - metoprolol tartrate, short acting, (LOPRESSOR) 25 mg tablet Take 1 tablet by mouth every 12 hours. - SITagliptin phosphate (JANUVIA) 100 mg tablet Take 1 tablet by mouth once daily. - ergocalciferol 50,000 unit capsule (VITAMIN D2, DRISDOL) TAKE 1 CAPSULE ONCE A WEEK - apixaban (ELIQUIS) 5 mg tab(s) Take 1 tablet by mouth two times a day. - sodium bicarbonate 650 mg tablet TAKE 2 TABLETS TWICE A DAY - allopurinol (ZYLOPRIM) 100 mg tablet Take 1 tablet by mouth twice daily. - Blood-Glucose Meter 1 Each three times daily. Please match the test strips and lancets - sildenafil (REVATIO) 20 mg tablet Take 3-5 tablets by mouth once daily as needed. 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 Normal [facility] Emergency Department Summary on 05-25-2024 Emergency Department Summary [facility] Medical Records Department [address] [place] [address] Emergency Department Summary 05/25/24 MR#: [id number] Acct: [id number] Name: YAMILKA SHARMA Rep #: [id number] : 1965 58 From: Van Thompson DO PCP: Dr. Najma Bloom DO Status:REG ER Location: ED HPI History of Present Illness Chief Complaint: Lower Extremity Injury Narrative Narrative: Patient is a 58-year-old male with past medical history of type 2 diabetes, atrial fibrillation on Eliquis, hypertension, non-Hodgkin's lymphoma approximately 3 years ago, chronic kidney disease who presented to the emerged part with chief complaint of left knee pain. Patient states that he was originally in [place] admitted to the hospital for which she had a right great toe infection that was treated with IV antibiotics and underwent incision and drainage by podiatry up there. He was also complaining of left knee pain at that point in time he had fluid removed x 2 while in the hospital and cultures were sent no evidence of septic arthritis was noted based on discharge paperwork after my review. Patient states that he was supposed to get a steroid injection coming up in the near future into the left knee for pain control. He states that yesterday he went to work and noted that he came home he states that he did fall yesterday and noted that he had more pain in his left knee. He states that he tried to get up and ambulate out of his chair today states that his knee was extremely painful him therefore he called EMS to have him brought here for further evaluation management. Patient states that he did not hit his head did not pass out did not lose consciousness he remembers the entire event. [facility] Medical History History of kidney stones Kidney disease Diabetes Afib Non-Hodgkin lymphoma Allergy/AdvReac Type Severity Reaction Status Date / Time clarithromycin (From Biaxin) Allergy Severe Swelling Verified 05/25/24 10:51 Sulfa (Sulfonamide Allergy Intermediate Hives Verified 05/25/24 10:51 Antibiotics) monosodium glutamate (msg) AdvReac Intermediate Abd Verified 05/25/24 10:51 cramps/diarrhea clindamycin AdvReac Diarrhea Verified 05/25/24 10:51 Surgical History (Updated 05/25/24 @ 10:18 by Zuly Berry) Hx of nephrostomy History of tonsillectomy and adenoidectomy History of appendectomy Social History Smoking Status: Former smoker ROS ROS ED ROS Narrative Constitutional: Denies fevers, chills, headaches, lightheadedness, dizziness Eyes: Denies change in vision double vision blurry vision Cardiovascular: Denies chest pain or palpitations Respiratory: Denies cough or wheezing shortness of breath Abdomen: Denies abdominal pain nausea vomit diarrhea : Complains of painful urination, hematuria polyuria Neurological: Denies any new numbness weakness, tingling Musculoskeletal: Complains of left knee pain as noted above Skin: Denies rashes or lesions EXAM Physical Exam Narrative Exam Narrative: General: Patient was lying in bed rest comfortably did not appear to be in acute distress Head: Atraumatic, normocephalic Eyes: PERRL bilaterally, EOMI bilaterally, no conjunctival injection noted Neck: Soft, supple, trachea midline Cardiovascular: Regular rate and rhythm no murmurs gallops rubs noted Respiratory: Clear to auscultation bilaterally no rales rhonchi wheeze noted Abdomen: Soft, nondistended, no tenderness palpation, bowel sounds present x 4 Musculoskeletal: Patient has tenderness palpation over the left knee and pain with attempted range of motion. No overlying or surrounding erythema associated with this knee pain. Patient did have a Band-Aid on the lateral aspect of his left knee which was removed and no concern for active purulent drainage no surrounding erythema no concern for infection Extremities: Radial pulses +2/4 in the bilateral per extremities, no pedal edema neuroexam Neurological: Patient is following commands knew that he is at [facility] there is 2023 Skin: Warm, dry Const Vital Signs: 05/25/24 09:54 05/25/24 11:53 05/25/24 13:00 Temperature 98.2 F Temperature Source Oral Pulse Rate 103 H 102 H 84 Respiratory Rate 16 17 16 Blood Pressure 99/67 121/80 H 99/67 Blood Pressure Mean 77 93 77 Pulse Ox 98 97 98 Oxygen Delivery Method Room Air Room Air MDM MDM MDM Narrative Medical decision making narrative: Patient is a 58-year-old male who presented to the emerged part with chief complaint of left knee pain. Patient will do workup performed here on the differential diagnosis includes going to osteoarthritis, distal femur fracture, proximal tibial plateau fracture, hip fracture. Once workup is obtained reviewed he will be reevaluated. Patient given (more content not included)... Normal [facility] HIP, UNI W/ Pelvis 2-3 Views on 05-25-2024 HIP, UNI W/ Pelvis 2-3 Views [facility] Imaging Services [address] [place], [place] [address] HIP, UNI W/ Pelvis 2-3 Views MR#: [id number] Acct: [id number] Name: YAMILKA SHARMA Rep #: [id number] : 1965 M 58 From: Edu heath MD PCP: Dr. Najma Bloom, DO Status: REG ER Study: HIP, UNI W/ Pelvis 2-3 Views Date of Exam: Exam# [id number] Ordering Dr: Van Thompson DO [id number] STUDY: X-RAY - PELVIS AND LEFT HIP REASON FOR EXAM: Male, 58 years old. Left hip pain. TECHNIQUE: views of the pelvis and hip. COMPARISON: None. FINDINGS: There is a non-specific bowel gas pattern. Prostatic calcifications. There is narrowing with cortical sclerosis and osteophyte formation of the sacroiliac joint consistent with degenerative osteoarthritic changes. Normal bilateral superior and inferior pubic rami. Normal pubic symphysis. Normal bilateral ischial tuberosities. Normal visualized femoral head. There is osteoarthritic spur formation of the acetabular rim. There is moderate articular joint space narrowing of the hip. I suspect left femoral acetabular impingement. 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 Electronically Signed: Edu Mei MD at 12:00 EDT , CC: Dr. Najma Bloom DO; Dr. Van Thompson DO Grinder: Signed [facility] HISTORY PHYSICALon HISTORY PHYSICAL HNO ID: [id number] Author: YAMILKA LIU MD Service: Hospital Medicine Author Type: Physician Type: H&P Filed: 05/25/2024 17:12 Note Text: HISTORY AND PHYSICAL EXAMINATION PRIMARY CARE PHYSICIAN: Najma Bloom DO HPI: 58 yo man with hx of DM2 afib HTN CAD obesity non-hodgkin's lymphoma s/p chemo 3 yrs ago with chronic med port in place for difficult IV access, recent hospital stay at for R toe cellulitis/wound s/p abx/debridement and left knee swelling/pain s/p arthrocentesis negative for infection/crystals, who presents with continued pain/swelling of left knee and fall today without knee trauma. He reports his knee just gave out. No fevers chills chest pain SOB URI symptoms. Last eliquis dose am 05/25. PAST MEDICAL HISTORY No date: Acute exacerbation of chronic obstructive airways disease (HCC) Comment: Rx for augmentin, symptomatic care as needed. Patient denies COPD, asthma, uses an inhaler PRN usually about once a year with hot weather No date: Anemia No date: Depression 07/14/2019: Diffuse large B cell lymphoma (HCC) No date: Encounter for screening for malignant neoplasm of prostate No date: Essential hypertension Comment: continue Lisinopril No date: Hydronephrosis No date: Hydronephrosis with ureteral stricture 10/30/2019: Hypomagnesemia 01/09/2023: Nausea and vomiting 12/15/2022: Obesity, Class II, BMI 35-39.9 No date: DEISI (obstructive sleep apnea) Comment: mild and no CPAP 01/10/2023: Paroxysmal atrial fibrillation (HCC) 01/09/2023: Prostatitis 10/25/2019: Sepsis due to gram-negative UTI (HCC) (HCC) No date: Thrombocytopenia (HCC) No date: Type 2 diabetes mellitus (HCC) Comment: continue current meds No date: Ureteral obstruction, left No date: Urinary tract infection 01/09/2023: Vitamin D deficiency PAST SURGICAL HISTORY 1981: APPENDECTOMY 07/20/2019: BONE MARRO ASPIRATE AND BIOPSY 2019: CYSTOSCOPY No date: KNIFE,CARPAL TUNNEL,; Bilateral Comment: Carpal Tunnel Surgery 06/10/201306/2019: NEPHROSTOMY TUBE 2013: PAST SURGICAL HISTORY OF Comment: temporal arterial biopsy 2013: PAST SURGICAL HISTORY OF Comment: sinus scraping, deviated septum repair No date: PAST SURGICAL HISTORY OF; Right Comment: PURPLE POWER PORT RIGHT CHEST No date: PAST SURGICAL HISTORY OF; Right Comment: TESTICLE REMOVED 02/19/2021: PAST SURGICAL HISTORY OF Comment: ureter stent FAMILY HISTORY Problem Relation Age of Onset other (Other inflammatory connective disorder) Mother Scleroderma other (Respiratory disorder) Mother other (Rheumatologic disorder) Mother other (Systemic lupus) Mother Heart Father Diabetes Father Diabetes Brother Diabetes Brother Cancer No Family History Social History Tobacco Use Smoking status: Former Packs/day: 2.50 Years: 30.00 Additional pack years: 0.00 Total pack years: 75.00 Types: Cigarettes Start date: 10/26/1983 Quit date: 10/26/2014 Years since quittin.5 Smokeless tobacco: Never Tobacco comments: cigarette; Start date: 1983; Not interested in quitting smoking; Amount: 10-19 cigs/day; quit 06/2015; Tobacco modified 11/15/2015; Tobacco reviewed with patient 11/15/2015 Vaping Use Vaping Use: Never used Substance Use Topics Alcohol use: Yes Comment: occasional Drug use: No glimepiride (AMARYL) 4 mg tablet, Take 4 mg by mouth two times a day with meals., Disp: , Rfl: , 05/25/2024 at 0800 furosemide (LASIX) 40 mg tablet, Take 1 tablet by mouth once daily., Disp: 90 tablet, Rfl: 0, 05/25/2024 at 0800 lisinopril (ZESTRIL) 5 mg tablet, Take 1 tablet by mouth once daily., Disp: 90 tablet, Rfl: 0, 05/25/2024 at 0800 acetaminophen (TYLENOL) 325 mg tablet, Take 2 tablets by mouth every 6 hours as needed for pain., Disp: 90 tablet, Rfl: 0, 05/25/2024 at 0800 amoxicillin-clavulanate potassium (AUGMENTIN) 875-125 mg per tablet, Take 1 tablet by mouth every 12 hours for 10 days., Disp: 20 tablet, Rfl: 0, 05/25/2024 at 0800 FARXIGA 10 mg tablet, TAKE 1 TABLET DAILY WITH BREAKFAST, Disp: 90 tablet, Rfl: 3, 05/25/2024 at 0800 DULoxetine (CYMBALTA) 60 mg capsule, Take 1 capsule by mouth two times a day., Disp: 180 capsule, Rfl: 3, 05/25/2024 at 0800 rosuvastatin (CRESTOR) 40 mg tablet, take 1 tablet daily, Disp: 90 tablet, Rfl: , 05/24/2024 at 0800 gabapentin (NEURONTIN) 600 mg tablet, Take 1 tablet by mouth three times a day for 90 days., Disp: 270 tablet, Rfl: 0, 05/25/2024 at 0800 lidocaine-prilocaine (EMLA) 2.5-2.5 % cream, APPLY TO AFFECTED AREA NEEDED PRIOR TO CHEMOTHERAPY, Disp: 30 g, Rfl: 11, 05/25/2024 at 0800 SITagliptin phosphate (JANUVIA) 100 mg tablet, Take 1 tablet by mouth once daily., Disp: 90 tablet, Rfl: 3, 05/25/2024 at 0800 apixaban (ELIQUIS) 5 mg tab(s), Take 1 tablet by mouth two times a day., Disp: 180 tablet, Rfl: 3, 05/25/2024 at 0800 sodium bicarbonate 650 mg tablet, TAKE 2 TABLETS TWICE A DAY, Disp: 360 tablet, Rfl: , 05/25/2024 at 0800 allo (more content not included)... [facility] Knee 3 Viewson 05-25-2024 Knee 3 Views [facility] Imaging Services [address] [place] [address] Knee 3 Views MR#: [id number] Acct: [id number] Name: YAMILKA SHARMA Rep #: [id number] : 1965 M 58 From: Edu heath MD PCP: Dr. Najma Bloom DO Status: REG ER Study: Knee 3 Views Date of Exam: 05/25/24 Exam# [id number] Ordering Dr: Van Thompson DO [id number] STUDY: X-RAY - LEFT KNEE REASON FOR EXAM: Male, 58 years old. Left lower extremity pain. No known injury. TECHNIQUE: 4 view(s) of the knee. COMPARISON: None. FINDINGS: Normal visualized distal femur. Normal visualized proximal tibia and fibula. Normal proximal tibiofibular articulation. Normal medial femorotibial compartment. Normal lateral femorotibial compartment. Normal patellofemoral articulation. Moderate size joint effusion. RAD/Knee 3 Views IMPRESSION: Moderate-sized joint effusion. Electronically Signed: Edu Mei MD at 11:53 EDT , CC: Dr. Najma Bloom DO; Dr. Van Thompson DO Grinder: Signed Normal [facility] Tibia Fibula 2 Viewson 05-25 Tibia Fibula 2 Views [facility] Imaging Services [address] [place], [place] [address] Tibia Fibula 2 Views MR#: [id number] Acct: [id number] Name: YAMILKA SHARMA Rep #: [id number] : 1965 M 58 From: Edu heath MD PCP: Dr. Najma Bloom DO Status: REG ER Study: Tibia Fibula 2 Views Date of Exam: 05/25/24 Exam# [id number] Ordering Dr: Van Thompson DO [id number] STUDY: X-RAY - LEFT TIBIA AND FIBULA REASON FOR EXAM: Male, 58 years old. Pain TECHNIQUE: 4 view(s) of the tibia and fibula were obtained. COMPARISON: None. FINDINGS: Normal visualized tibia. Normal visualized fibula. Joint effusion The soft tissue structures are unremarkable. RAD/Tibia Fibula 2 Views IMPRESSION: Joint effusion. Electronically Signed: Edu Mei MD at 11:55 EDT Reading Location ID and State: [facility] / [place] , Service support , CC: Dr. Najma Bloom DO; Dr. Van Thompson DO Grinder: Signed Normal [facility] Urinalysis, Completeon 05-25 WBC >100 SEEN Normal 0-5 [facility] Comment on above: Order Comment: COLLE CTOR TO SPECIFY Performed By: #### L 400.0001 #### [facility] [address] [place], [address] BACTERIA 0 SEEN Normal None Seen [facility] Comment on above: Order Comment: COLLE CTOR TO SPECIFY Performed By: #### L 400.0001 #### [facility] [address] [place], [address] EPI,SQUAMOUS 0 SEEN Normal 0-5 [facility] Comment on above: Order Comment: COLLE CTOR TO SPECIFY Performed By: #### L 400.0001 #### [facility] [address] [place], [address] Mucus Ql (Urine sed) 0 SEEN Normal [facility] Comment on above: Order Comment: COLLE CTOR TO SPECIFY Performed By: #### L 400.0001 #### [facility] [address] [place], [address] RBC 0 SEEN Normal 0-5 [facility] Comment on above: Order Comment: COLLE CTOR TO SPECIFY Performed By: #### L 400.0001 #### [facility] [address] [place], [address] CNCOon 05-19-2024 CNCO Letter Text Normal [facility] CNDSon 05-19-2024 CNDS HNO ID: [id number] Author: LEO LEA MD Service: Hospital Medicine Author Type: Resident Type: Discharge Summary Filed: 05/19/2024 16:20 Note Text: -------- Attestation signed by Leo Lea MD at 05/19/2024 4:20 PM The patient was seen and examined today by myself. I have reviewed labs and all other critical information necessary to implement a care plan. I have discussed with the above housestaff the patient's care, and was present for and instrumental in, the development of the assessment and plan. 35 minutes were spent on discharge in coordination of care DFU with 1st digit fracture and cellulitis, ?OM. D/W podiatry and ID -- discharging home to follow up with podiatry per their recommendations Diabetes -- patient is now refusing insulin, but his diabetic control is poor. I spent a long time during his hospitalization discussing diet, lifestyle, carbohydrates, and medications. He is currently refusing insulin altogether -- in my opinion his amaryl and metformin are softly contraindicated due to his kidney function, and should be on insulin. When I last spoke with him, he was refusing prandial insulin due to its threat to his work and livelihood. Now he states he only wants to take his orals, and Ozempic, but this is ill-advised, and I intended to speak to him about it, but he hung up on me after calling subsequent to my visit in the morning His acute monoarticular arthritis is almost certainly inflammatory and not infectious. Ortho saw him twice during his hospitalization, and deferred surgery, reasonably, given the low-hilary WBC in the joint and lack of positive cultures. Dr. Monzon from rheumatology will inject his knee next week in clinic if the cultures are definitively negative. When explaining this to him, he was angry and threatened litigation if anything happens to my knee. I was in the process of explaining the need to definitively wait for negative cultures, and use ice/voltaren gel in the interim, and he ended the conversation abruptly. Leo Lea MD, [facility] -------- DISCHARGE SUMMARY PATIENT NAME: Yamilka Sharma ADMISSION DATE: 05/12/2024 DISCHARGE DATE: 05/19/2024 ATTENDING PHYSICIAN: Leo Lea MD Code Status: Full Code PCP: Najma Bloom DO Highest Readmission Risk Score: 31 The 30 day readmissions risk score is derived from an internally validated risk model which evaluates patient level characteristics, utilization history, medication orders and lab results up until the day of discharge. Patients with a score of 40 or above are considered highest risk for readmission. Specific patient level drivers will be listed at the bottom of the summary. TRANSITIONS OF CARE CRITICAL ISSUES: GLASGOW MEDICATION CHANGES: -Augmentin 825 mg BID for 10 days. -Lantus 30 units at bed time. -Stop amaryl and metformin. Follow up with PCP or emergency room clinician. Follow up with Retail Department Supervisor. Follow up with Rheumatology, Dr Mccann REASON FOR HOSPITALIZATION/PRINCIPA L DIAGNOSES: Fever, tachycardia and left knee pain. HOSPITAL PROBLEMS: Principal Problem (Resolved): Sepsis (HCC) (POA: Yes) Active Problems: Type 2 diabetes mellitus with diabetic nephropathy, without long-term current use of insulin (HCC) (POA: Yes) Hypertension, essential (POA: Yes) Coronary artery disease involving [place] coronary artery of [place] heart without angina pectoris (POA: Yes) Paroxysmal atrial fibrillation (HCC) (POA: Yes) Obesity, Class II, BMI 35-39.9 (POA: Yes) Cellulitis and abscess of foot (POA: Unknown) Acute pain of left knee (POA: Unknown) Effusion of left knee (POA: Unknown) Hemarthrosis (POA: Unknown) Diabetic ulcer of toe of right foot associated with type 2 diabetes mellitus, 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 (HCC) (POA: Unknown) Obesity Class III (BMI +/>40 or >35 with comorbidity) HOSPITAL COURSE: Yamilka Sharma, a 58-year-old male, was admitted to [facility] on May 12, 2024, with symptoms including fever, tachycardia, and left knee pain. 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 Upon further examination, a swollen, inflamed right big toe with an open wound draining purulent discharge was noted. Blood cultures were negative, but wound cultures identified Gram-positive cocci. Antibiotic therapy was adjusted from vancomycin and Zosyn to Unasyn. Podiatry performed an incision and drainage of the right foot abscess and recommended follow-up care on an outpatient basis. Synovial f (more content not included)... Normal [facility] Bacteria Fld Culton 05-18-20 24 Bacteria identified Cx Nom (Body fld) CULTURE, BODY FLD: No growth GRAM STAIN: No organisms seen Few Polymorphonuclear leukocytes Gram stain from primary specimen Normal [facility] Comment on above: Performed By: #### 6 11-4 ####[facility] [id number] [place] [address] [place] Basic metabolic 2000 panelon 05-18-2024 Anion gap [Moles/Vol] 11 mmol/L Normal 8-15 [facility] Comment on above: Order Comment: Speci men Type: BLOOD SPECIMEN Ordering Facility: [facility] Address: [address] [place] [address] Performed By: #### 2 4320-11, 1988-02 #### [facility] CLIA [id number] [place] [address] [place] Calcium [Mass/Vol] 9.3 mg/dL Normal 8.5-10.2 [facility] Comment on above: Order Comment: Speci men Type: BLOOD SPECIMEN Ordering Facility: [facility] Address: [address] [place] [address] Performed By: #### 2 4320-11, 1988-02 #### [facility] CLIA [id number] [address] [place] [address] [place] Chloride [Moles/Vol] 102 mmol/L Normal 98-107 [facility] Comment on above: Order Comment: Speci men Type: BLOOD SPECIMEN Ordering Facility: [facility] Address: [address] [place] [address] Performed By: #### 2 4320-11, 1988-02 #### [facility] CLIA [id number] [address] [place] [address] [place] CO2 [Moles/Vol] 24 mmol/L Normal 22-30 [facility] Comment on above: Order Comment: Speci men Type: BLOOD SPECIMEN Ordering Facility: [facility] Address: [address] [place] [address] Performed By: #### 2 4320-11, 1988-02 #### [facility] CLIA [id number] [address] [place] [address] [place] Creatinine [Mass/Vol] 1.54 mg/dL High 0.73-1.22 [facility] Comment on above: Order Comment: Speci men Type: BLOOD SPECIMEN Ordering Facility: [facility] Address: [facility] [place] [place] [address] Performed By: #### 2 4320-11, 1988-02 #### [facility] CLIA [id number] [place] [address] [place] Creatinine and Glomerular filtration rate.predicted panel (S/P/Bld) 52 mL/min/1.73m??? Low >=60 [facility] Comment on above: Order Comment: Santo malik Type: BLOOD SPECIMEN Ordering Facility: [facility] Address: [address] [place] [address] Result Comment: Karissa mated Glomerular Filtration Rate (eGFR) is calculated using the 2020 CKD-EPI creatinine equation. This equation utilizes serum creatinine, sex, and age as parameters. The creatinine assay has traceable calibration to isotope dilution-mass spectrometry. Refer to KDIGO guidelines for clinical interpretation. In patients with unstable renal function, e.g. those with acute kidney injury, the eGFR may not accurately reflect actual GFR. Performed By: #### 2 43210-27, 1988-02 #### [facility] CLIA [id number] [address] [place] [address] [place] Glucose [Mass/Vol] 142 mg/dL High 74-99 [facility] Comment on above: Order Comment: Santo malik Type: BLOOD SPECIMEN Ordering Facility: [facility] Address: [address] [place] [address] Result Comment: The [place] Diabetes Association (ADA) provides guidance for cutoff values for fasting glucose and random glucose. The ADA defines fasting as no caloric intake for at least 8 hours. Fasting plasma glucose results between 100 to 125 mg/dL indicate increased risk for diabetes (prediabetes). Fasting plasma glucose results greater than or equal to 126 mg/dL meet the criteria for diagnosis of diabetes. In the absence of unequivocal hyperglycemia, results should be confirmed by repeat testing. In a patient with classic symptoms of hyperglycemia or hyperglycemic crisis, random plasma glucose results greater than or equal to 200 mg/dL meet the criteria for diagnosis of diabetes. Reference: Standards of Medical Care in Diabetes 2016, [place] [employer] Association. Diabetes Care. 2016.39(Suppl 1). Performed By: #### 2 43210-27, 1988-02 #### [facility] CLIA [id number] [address] [place] [address] [place] Potassium [Moles/Vol] 4.8 mmol/L Normal 3.7-5.1 [facility] Comment on above: Order Comment: Speci men Type: BLOOD SPECIMEN Ordering Facility: [facility] Address: [address] [place] [address] Performed By: #### 2 4320-11, 1988-02 #### [facility] CLIA [id number] [address] [place] [address] [place] Sodium [Moles/Vol] 137 mmol/L Normal 136-144 [facility] Comment on above: Order Comment: Speci men Type: BLOOD SPECIMEN Ordering Facility[facility] Address: [address] [place] [address] Performed By: #### 2 4320-11, 1988-02 #### [facility] CLIA [id number] [address] [place] [address] [place] Urea nitrogen [Mass/Vol] 42 mg/dL High 07-19 [facility] Comment on above: Order Comment: Speci men Type: BLOOD SPECIMEN Ordering Facility: [facility] Address: [address] [place] [address] Performed By: #### 2 4320-11, 1988-02 #### [facility] CLIA [id number] [address] [place] [address] [place] CBC panel Auto (Bld)on 05-18 Erythrocyte distribution width (RBC) [Ratio] 14.5 % Normal 11.5-15.0 [facility] Comment on above: Order Comment: Speci men Type: BLOOD SPECIMEN Ordering Facility: [facility] Address: [address] [place] [address] Performed By: #### 2 8 #### [facility] CLIA [id number] [address] [place] [address] [place] Hematocrit (Bld) [Volume fraction] 36.3 % Low 39.0-51.0 [facility] Comment on above: Order Comment: Speci men Type: BLOOD SPECIMEN Ordering Facility: [facility] Address: [address] [place] [address] Performed By: #### 2 4328 #### [facility] CLIA [id number] [address] [place] [address] [place] Hemoglobin (Bld) [Mass/Vol] 11.7 g/dL Low 13.0-17.0 [facility] Comment on above: Order Comment: Speci men Type: BLOOD SPECIMEN Ordering Facility: [facility] Address: [address] [place] [address] Performed By: #### 2 4323-8 #### [facility] CLIA [id number] [address] [place] [address] [place] MCH (RBC) [Entitic mass] 26.2 pg Normal 26.0-34.0 [facility] Comment on above: Order Comment: Speci men Type: BLOOD SPECIMEN Ordering Facility: [facility] Address: [address] [place] [address] Performed By: #### 2 4323-8 #### [facility] CLIA [id number] [address] [place] [address] [place] MCHC (RBC) [Mass/Vol] 32.2 g/dL Normal 30.5-36.0 [facility] Comment on above: Order Comment: Speci men Type: BLOOD SPECIMEN Ordering Facility[facility] Address: [address] [place] [address] Performed By: #### 2 4323-8 #### [facility] CLIA [id number] [address] [place] [address] [place] MCV (RBC) [Entitic vol] 81.2 fL Normal 80.0-100.0 [facility] Comment on above: Order Comment: Speci men Type: BLOOD SPECIMEN Ordering Facility[facility] Address: [address] [place] [address] Performed By: #### 2 4323-8 #### [facility] CLIA [id number] [address] [place] [address] [place] Nucleated RBC (Bld) [#/Vol] 10*3/uL Normal <0.01 [facility] Comment on above: Order Comment: Speci men Type: BLOOD SPECIMEN Order[facility] Facility[facility] Address: [address] [place] [address] Performed By: #### 2 4323-8 #### [facility] CLIA [id number] [address] [place] [address] [place] Platelet mean volume (Bld) [Entitic vol] 10.1 fL Normal 9.0-12.7 [facility] Comment on above: Order Comment: Speci men Type: BLOOD SPECIMEN Ordering Facility[facility] Address: [address] [place] [address] Performed By: #### 2 4323-8 #### [facility] CLIA [id number] [address] [place] [address] [place] Platelets (Bld) [#/Vol] 218 10*3/uL Normal 150-400 [facility] Comment on above: Order Comment: Speci men Type: BLOOD SPECIMEN Ordering Facility[facility] Address: [address] [place] [address] Performed By: #### 2 4323-8 #### [facility] CLIA [id number] [address] [place] [address] [place] RBC (Bld) [#/Vol] 4.47 10*6/uL Normal 4.20-6.00 [facility] Comment on above: Order Comment: Speci men Type: BLOOD SPECIMEN Ordering [facility] Address: [address] [place] [address] Performed By: #### 2 4323-8 #### [facility] CLIA [id number] [address] [place] [address] [place] WBC (Bld) [#/Vol] 9.62 10*3/uL Normal 3.70-11.00 [facility] Comment on above: Order Comment: Speci men Type: BLOOD SPECIMEN Ordering [facility] Address: [address] [place] [address] Performed By: #### 2 4323-8 #### [facility] CLIA [id number] [place] [address] [place] CRP SerPl-mCncon 05-18-2024 CRP [Mass/Vol] 4.0 mg/dL High <0.9 [facility] Comment on above: Order Comment: Speci men Type: BLOOD SPECIMEN Ordering Facility[facility] Address: [address] [place] [address] Performed By: #### 2 4321-2, 1988-02 #### [facility] CLIA [id number] [address] [place] [address] [place] SYNOVIAL FLUID MANUAL DIFFon 05-18-2024 DIF TTL, SYNOVIAL FLUID 100 cells counted Normal [facility] Comment on above: Order Comment: Speci men Type: FLUID SPECIMEN Ordering Facility: [facility] Address: [address] [place] [address] Performed By: #### Estelita GARCIA [id number] #### [facility] CLIA [id number] [address] [place] [address] [place] #### SFCRID #### [facility] CLIA [id number] [address] [place] [address] [place] [facility] CLIA [id number] [address] [place] [address] [place] LYMPH%, SF 8 Normal [facility] Comment on above: Order Comment: Speci men Type: FLUID SPECIMEN Order[facility] Address: [address] [place] [address] Performed By: #### Estelita GARCIA, [id number] #### [facility] CLIA [id number] [address] [place] [address] [place] #### SFCRID #### [facility] CLIA [id number] [address] [place] [address] [place] [facility] CLIA [id number] [address] [place] [address] [place] MONO%, SF 22 Normal [facility] Comment on above: Order Comment: Speci men Type: FLUID SPECIMEN Order[facility] Address: [address] [place] [address] Performed By: #### Estelita GARCIA, [id number] #### [facility] CLIA [id number] [place] [address] [place] #### SFCRID #### [facility] CLIA [id number] [address] [place] [address] [place] [facility] CLIA [id number] [address] [place] [address] [place] NEUT% 70 High 0-<25 [facility] Comment on above: Order Comment: Speci men Type: FLUID SPECIMEN Order[facility] Address: [address] [place] [address] Performed By: #### R RADHA [id number] #### [facility] CLIA [id number] [address] [place] [address] [place] #### SFCRID #### [facility] CLIA [id number] [address] [place] [address] [place] [facility] CLIA [id number] [address] [place] [address] [place] SYNOVIAL FLUID, CRYSTAL ID/P ATHOLOGIST INTERPRETATIONon 05-18-2024 CRYSTAL PRELIM, SF PRELIMINARY REPORT N o diagnostic crystals seen. SEE FINAL SF PATH REVIEW Normal [facility] Comment on above: Order Comment: Speci men Type: FLUID SPECIMEN Order[facility] Address: [address] [place] [address] Performed By: #### Estelita GARCIA [id number] #### [facility] CLIA [id number] [address] [place] [address] [place] #### SFCRID #### [facility] CLIA [id number] [address] [place] [address] [place] [facility] CLIA [id number] [address] [place] [address] [place] CRYSTAL REVIEW Reviewed by Remy Quinteros DO, MPH Normal [facility] Comment on above: Order Comment: Speci men Type: FLUID SPECIMEN Order[facility] Address: [address] [place] [address] Performed By: #### Estelita GARCIA [id number] #### [facility] [facility] CLIA [id number] [address] [place] [address] [place] #### SFCARMELINA #### [facility] CLIA [id number] [address] [place] [address] [place] [facility] CLIA [id number] [address] [place] [address] [place] Crystals LM Nom (Syn fld) None seen Normal None seen [facility] Comment on above: Order Comment: Speci men Type: FLUID SPECIMEN [facility] Address: [address] [place] [address] Performed By: #### Estelita GARCIA [id number] #### [facility] CLIA [id number] [address] [place] [address] [place] #### SFCARMELINA #### [facility] CLIA [id number] [address] [place] [address] [place] [facility] CLIA [id number] [address] [place] [address] [place] SYNOVIAL FLUID, ROUTINEon Clarity (Unsp spec) Normal Clear [facility] Comment on above: Order Comment: Speci men Type: FLUID SPECIMEN [facility] Address: [address] [place] [address] Result Comment: Test Not Indicated Performed By: #### Estelita GARCIA [id number] #### [facility] CLIA [id number] [address] [place] [address] [place] #### SFCARMELINA #### [facility] CLIA [id number] [address] [place] [address] [place] [facility] CLIA [id number] [address] [place] [address] [place] Color (Syn fld) Normal Yellow [facility] Comment on above: Order Comment: Speci men Type: FLUID SPECIMEN [facility] Address: [address] [place] [address] Result Comment: Test Not Indicated Performed By: #### Estelita GARCIA [id number] #### [facility] CLIA [id number] [address] [place] [address] [place] #### SFCRID #### [facility] CLIA [id number] [address] [place] [address] [place] [facility] CLIA [id number] [address] [place] [address] [place] RBC Manual cnt (Syn fld) [#/Vol] 68005 /uL High <2000 [facility] Comment on above: Order Comment: Speci men Type: FLUID SPECIMEN [facility] Address: [address] [place] [address] Performed By: #### Estelita GARCIA [id number] #### [facility] CLIA [id number] [address] [place] [address] [place] #### SFCRID #### [facility] CLIA [id number] [address] [place] [address] [place] [facility] CLIA [id number] [address] [place] [address] [place] Specimen source Nom (Unsp spec) Knee, Left Normal [facility] Comment on above: Order Comment: Speci men Type: FLUID SPECIMEN [facility] Address: [address] [place] [address] Performed By: #### Estelita GARCIA [id number] #### [facility] CLIA [id number] [address] [place] [address] [place] #### SFCRID #### [facility] CLIA [id number] [address] [place] [address] [place] [facility] CLIA [id number] [address] [place] [address] [place] WBC Manual cnt (Syn fld) [#/Vol] 22404 /uL High 0-200 [facility] Comment on above: Order Comment: Speci men Type: FLUID SPECIMEN [facility] Address: [address] [place] [address] Performed By: #### R RADHA [id number] #### [facility] CLIA [id number] [address] [place] [address] [place] #### SFCRID #### [facility] CLIA [id number] [address] [place] [address] [place] [facility] CLIA [id number] [address] [place] [address] ALLIED HEALTHon 05-17-2024 ALLIED HEALTH HNO ID: [id number] Author: PRETTY CHONG RT(Estelita) Service: Radiology Author Type: Technologist Type: Allied Health Filed: 05/17/2024 10:09 Note Text: Radiology Service Progress Note PATIENT NAME: Yamilka Sharma DATE OF SERVICE: May 17, 2024 TIME: 10:09 AM PATIENT IDENTITY VERIFICATION COMPLETED USING TWO (2) IDENTIFIERS: Name and Date of confirmed by patient verbally and Name and Date of confirmed by identification band. FALL SCREENING: Has the patient had 2 falls in the last year or 1 fall with injury or currently using an Ambulatory Assistive Device (Walker, Cane, Wheelchair, Crutches, etc.)? Inpatient: Screened on floor PATIENT GENDER DATA: Male PATIENT RELEVANT IMPLANT DATA REVIEWED: Yes PATIENT PRESENTS WITH AN IMPLANTABLE OR ATTACHED SAIL CUTTER: No RADIOLOGY DEPARTMENT: MR; Exam(s) Completed: Lower MSK: Forefoot/Midfoot, right PERIPHERAL IV DATA: Inpatient: see LDA documentation SIGNED BY: ABBY Ashley)(MR) May 17, 2024 10:09 AM Normal [facility] Bacteria Spec Anaerobe Culto n 05-17-2024 Bacteria identified Anaer cx Nom (Unsp spec) Negative Normal [facility] Comment on above: Performed By: #### 6 35-3, 6462-6 ####[facility] [id number] [address] [place] Bacteria Wnd Culton 05-17-20 24 Bacteria identified Cx Nom (Wound) ORGANISM ID: 1 One colony Streptococcus dysgalactiae (group c streptococcus) Susceptibility testing not performed on beta hemolytic streptococci due to predictable susceptibility to penicillin and other beta lactams. For testing, call Microbiology within 72 hours. 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 ASSESSMENT, RECOMMENDATIONS AND PLAN: Discussion with the patient today including questions and answers regarding the etiology and treatment options for the current problems. -MRI Results: Increased signal in the intrinsic musculature of the foot can be seen with diabetes. Flexion extensor tendons appear intact and without tenosynovitis. Lisfranc ligament appears intact. Indistinct signal around the nailbed of the great toe may relate to packing material which is also seen medially. There appears to be a nondisplaced fracture involving the great toe distal phalanx with surrounding mild bone marrow edema. Given the fracture, it is difficult to determine if there is acute bone destruction along the margin. No regions of acute bone destruction seen elsewhere to suggest osteomyelitis. -PVR Results: Right side AUSTIN: 1.21 normal [place] at rest Left side [place] 1.19 normal [place] at rest -Blood cultures showed no growth after 5 days - wound cultures grew Streptococcus -Patient is currently on ampicillin-sulbactam piggyback 3 g first dose was given today at 12 - Patient's wound was evaluated today. The patient is doing well. Redness and swelling of the forefoot localized from cellulitis has decreased compared to previous visit. Endorses occasional shooting pain, which correlates with his diabetic neuropathy. No complaints at this time. - Incision and drainage of the right great toe was performed. For procedure note please see below. - Wound was dressed with Betadine, 4 x 4's, Kerlix, and PAVEL. Dressing orders placed - Deposition: Heel WB as tolerated - Bacterial culture obtained. Pending results - Patient was informed that the fracture might be pathologic in nature due to underlying osteomyelitis not seen on MRI. However we will continue to treat this conservatively with dressing changes and placing the patient in a postop shoe. -Patient is to follow-up in Dr. Coleman's outpatient clinic in 5 days after his discharge for close monitoring of his right big toe. Patient was given instructions to call the clinic. The phone number was given to him. While the patient is still admitted we will continue to follow. -PROCEDURE NOTE Bedside Incision and drainage: excisional Down to and included subcutaneous tissue. Local anesthetic: 10 cc of 1% Lidocaine plain with 23 gauge hypodermic needle Verbal consent obtained from patient. Attention was directed to medial and lateral aspect of the right great toe. Procedure site was cleansed with betadine. A 1 cm linear incision was made at the central aspects of the abscess using a sharp 15 blade. Incision was deepened and 1 cc of Purulent drainage was expressed at each site and a wound culture was obtained. As much purulent drainage was expressed as possible and the incision site was flushed with copious amounts of sterile saline. The site was packed with 1/4 in gauze packing and wrapped with a dry compressive dressing. Patient tolerated the procedure well and is to keep the dressing clean dry and intact. 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 Patient was admitted on 05/12 for fever and tachycardia.Patient started to feel sick 3 days before his admission. 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 Overall patent is feeling much better after treatment of antibiotics and states that the toe has improved as well. Patient is a poorly controled diabetic with blood sugar levels staying in the 200s. Patient has no other complaints at this time. PAST MEDICAL HISTORY Diagnosis Date Acute exacerbation of chronic obstructive airways disease (HCC) Rx for augmentin, symptomatic care as needed. Patient denies COPD, asthma, uses an inhaler PRN usually about once a year with hot weather Anemia Depression Diffuse large B cell lymphoma (HCC) 07/14/2019 Encounter for screening for malignant neoplasm of prostate Essential hypertension continue Lisinopril Hydronephrosis Hydronephrosis with ureteral stricture Hypomagnesemia 10/30/2019 Nausea and vomiting 01/09/2023 Obesity, Class II, BMI 35-39.9 12/15/2022 DEISI (obstructive sleep apnea) mild and no CPAP Paroxysmal atrial fibrillation (HCC) 01/10/2023 Prostatitis 01/09/2023 Sepsis due to gram-negative UTI (HCC) (HCC) 10/25/2019 Thrombocytopenia (HCC) Type 2 diabetes mellitus (HCC) continue current meds Ureteral obstruction, left Urinary tract infection (more content not included)... [facility] CONSULT PROG HNO ID: [id number] Author: YOGI PATTERSON RPh Service: Pharmacy Author Type: Pharmacist Type: Consult Progress Note Filed: 05/17/2024 10:14 Note Text: PHARMACY VANCOMYCIN DOSING NOTE Patient Name: Yamilka Sharma Admission Date: 05/12/2024 Date of Consult: 05/17/2024 Time of Consult: 10:14 AM Indication: Bloodstream infection Goal Range: 15-20 mcg/mL RECOMMENDATIONS/PLAN: Pharmacy consulted for vancomycin dosing for Yamilka Sharma, a 58 year old male. Vancomycin therapy has been discontinued. Vancomycin level(s) have been discontinued: Not Applicable. Pharmacy vancomycin dosing service will sign off. Thank you for allowing us to participate in this patient's care. Please contact pharmacy if there are questions. Yogi Patterson PharmD [facility] May 17, 2024 10:[address] [facility] CONSULT PROG HNO ID: [id number] Author: Simin RAZO MD Service: Infectious Disease Author Type: Physician Type: Consult Progress Note Filed: 05/17/2024 10:05 Note Text: ID SERVICE CONSULT PROGRESS NOTE SERVICE DATE: 05/17/2024 SERVICE TIME: 10:02 AM Subjective INTERVAL HPI: Progress reviewed, the patient has finally gone down to get his right foot MRI done. Current Facility-Administered Medications Medication Dose Route Frequency NaCl 0.9% iv flush bag 20 mL INTRAVENOUS PRN ondansetron 4 mg tab(s) (ZOFRAN) 4 mg ORAL q 6 H PRN Or ondansetron (PF) 4 mg injection (ZOFRAN) 4 mg INTRAVENOUS q 6 H PRN acetaminophen 650 mg tab(s) (TYLENOL) 650 mg ORAL q 6 H PRN sodium bicarbonate 1,300 mg tab(s) 1,300 mg ORAL BID gabapentin 600 mg tab(s) (NEURONTIN) 600 mg ORAL TID rosuvastatin 40 mg tab(s) (CRESTOR) 40 mg ORAL DAILY albuterol HFA 90 mcg/actuation 2 Puff (PROVENTIL HFA, VENTOLIN HFA) 2 Puff INHALATION q 6 H PRN metoprolol tartrate (short acting) 25 mg tab(s) (LOPRESSOR) 25 mg ORAL q 12 H allopurinol 100 mg tab(s) (ZYLOPRIM) 100 mg ORAL BID DULoxetine 60 mg cap(s) (CYMBALTA) 60 mg ORAL BID dextrose 40 % 15 g 15 g ORAL PRN Or glucagon 1 mg injection 1 mg INTRAMUSCULAR PRN Or dextrose 10% iv bolus 12.5 g INTRAVENOUS PRN oxyCODONE IR 5 mg tab(s) (ROXICODONE) 5 mg ORAL q 6 H PRN piperacillin-tazobactam iv piggyback 3.375 g in dextrose (iso-osmotic) 50 mL (ZOSYN) 3.375 g INTRAVENOUS q 6 H insulin lispro injection (rapid acting) (ADMElog) SUBCUTANEOUS w MEALS AND HS dilTIAZem CD 120 mg cap(s) (CARDIZEM CD, CARTIA XT) 120 mg ORAL DAILY lisinopril 5 mg tab(s) (ZESTRIL) 5 mg ORAL DAILY predniSONE 20 mg tab(s) (DELTASONE) 20 mg ORAL DAILY polyethylene glycol 3350 17 g packet 17 g ORAL DAILY insulin lispro 12 Units injection (rapid acting) (ADMElog) 12 Units SUBCUTANEOUS w MEALS insulin glargine 34 Units pen (long acting) 34 Units SUBCUTANEOUS DAILY (8 AM) heparin 5,000 Units injection 5,000 Units SUBCUTANEOUS q 12 H Objective PHYSICAL EXAM: Physical Exam Performed: The patient has been afebrile, unable to examine him as he is down an MRI, will review him again later. BP 122/71 Pulse 79 Temp (Src) 97.4 (Oral) Resp 16 Ht 6' 0 (1.83m) Wt 272 lb 9.6 oz (123.7kg) SpO2 99% BMI 36.96 kg/(m2). O2 Therapy: Room Air DATA: Diagnostic tests reviewed for today's visit: Most recent labs and imaging results. Culture obtained from the right great toe has grown moderate Streptococcus dysgalactiae. Gram stain did show gram-negative bacilli, could be anaerobes Knee aspirate has not shown any growth so far. Impression/Recommendatio ns Principal Problem: Sepsis (HCC) (POA: Yes) : Type 2 diabetes mellitus with diabetic nephropathy, without long-term current use of insulin (HCC) (POA: Yes) Cellulitis and abscess of left great toe foot (POA: Effusion of left knee (POA: Plan; will discontinue both intravenous vancomycin and Zosyn and start him on IV Unasyn to manage left great toe infection. Will review MRI when available. SIGNATURE: Simin Razo MD PATIENT NAME: Yamilka Sharma DATE: May 17, 2024 TIME: 10:02 AM PAGER: Normal [facility] CREATININE Don 05-17-2024 Creatinine [Mass/Vol] 1.83 mg/dL High 0.73-1.22 [facility] Comment on above: Order Comment: Santo malik Type: BLOOD SPECIMENOrdering Facility: [facility] Address: [address] [place] [address] Performed By: #### C RET1 ####[facility] [id number] [place] [address] [place] Creatinine and Glomerular filtration rate.predicted panel (S/P/Bld) 42 mL/min/1.73m??? Low >=60 [facility] Comment on above: Order Comment: Santo malik Type: BLOOD SPECIMENOrdering Facility: [facility] Address: [address] [place] [address] Result Comment: Karissa mated Glomerular Filtration Rate (eGFR) is calculated using the 2020 CKD-EPI creatinine equation. This equation utilizes serum creatinine, sex, and age as parameters. The creatinine assay has traceable calibration to isotope dilution-mass spectrometry. Refer to KDIGO guidelines for clinical interpretation. In patients with unstable renal function, e.g. those with acute kidney injury, the eGFR may not accurately reflect actual GFR. Performed By: #### C RET1 ####[facility] [id number] [place] [id number] [facility] MRI FOOT/TOES WO IVCON RTon 05-17-2024 MRI FOOT/TOES WO IVCON RT * * *Final Report* * * DATE OF EXAM: May 17 2024 10:30AM [facility] 0195 - MRI FOOT/TOES WO IVCON RT / PROCEDURE REASON: Osteomyelitis, foot * * * * Physician Interpretation * * * * EXAMINATION: MRI FOOT/TOES WO IVCON RT HISTORY: Osteomyelitis, foot. TECHNIQUE: MRI FOOT/TOES WO IVCON RT CONTRAST: None COMPARISON: RESULT: Increased signal in the intrinsic musculature of the foot can be seen with diabetes. Flexion extensor tendons appear intact and without tenosynovitis. Lisfranc ligament appears intact. Indistinct signal around the nailbed of the great toe may relate to packing material which is also seen medially. There appears to be a nondisplaced fracture involving the great toe distal phalanx with surrounding mild bone marrow edema. Given the fracture, it is difficult to determine if there is acute bone destruction along the margin. No regions of acute bone destruction seen elsewhere to suggest osteomyelitis. IMPRESSION: Great toe fracture. No definitive MRI findings of osteomyelitis although bone marrow evaluation is limited by changes related to the fracture. Grinder: JOSÉ MANUEL Transcribe Date/Time: May 17 2024 11:21A Dictated by : YAMILKA PEPPER MD This examination was interpreted and the report reviewed and electronically signed by: YAMILKA PEPPER MD on May 17 2024 11:37AM EST [id number] Normal [facility] CBC panel Auto (Bld)on 05-16 Erythrocyte distribution width (RBC) [Ratio] 14.6 % Normal 11.5-15.0 [facility] Comment on above: Order Comment: Speci men Type: BLOOD SPECIMEN [facility] Address: [address] [place] [address] Performed By: #### 2 4323-8 #### [facility] CLIA [id number] [address] [address] Hematocrit (Bld) [Volume fraction] 30.7 % Low 39.0-51.0 [facility] Comment on above: Order Comment: Speci men Type: BLOOD SPECIMEN [facility] Address: [address] [place] [address] Performed By: #### 2 4323-8 #### [facility] CLIA [id number] [address] [place] [address] [place] Hemoglobin (Bld) [Mass/Vol] 10.0 g/dL Low 13.0-17.0 [facility] Comment on above: Order Comment: Speci men Type: BLOOD SPECIMEN [facility] Address: [address] [place] [address] Performed By: #### 2 4323-8 #### [facility] CLIA [id number] [address] [place] [address] [place] MCH (RBC) [Entitic mass] 26.1 pg Normal 26.0-34.0 [facility] Comment on above: Order Comment: Speci men Type: BLOOD SPECIMEN [facility] Address: [address] [place] [address] Performed By: #### 2 4323-8 #### [facility] CLIA [id number] [address] [place] [address] [place] MCHC (RBC) [Mass/Vol] 32.6 g/dL Normal 30.5-36.0 [facility] Comment on above: Order Comment: Speci men Type: BLOOD SPECIMEN [facility] Address: [address] [place] [address] Performed By: #### 2 4323-8 #### [facility] CLIA [id number] [address] [place] [address] [place] MCV (RBC) [Entitic vol] 80.2 fL Normal 80.0-100.0 [facility] Comment on above: Order Comment: Speci men Type: BLOOD SPECIMEN [facility] Address: [address] [place] [address] Performed By: #### 2 4323-8 #### [facility] CLIA [id number] [address] [place] [address] [place] Nucleated RBC (Bld) [#/Vol] 10*3/uL Normal <0.01 [facility] Comment on above: Order Comment: Speci men Type: BLOOD SPECIMEN [facility] Address: [address] [place] [address] Performed By: #### 2 4323-8 #### [facility] CLIA [id number] [address] [place] [address] [place] Platelet mean volume (Bld) [Entitic vol] 11.1 fL Normal 9.0-12.7 [facility] Comment on above: Order Comment: Speci men Type: BLOOD SPECIMEN [facility] Address: [address] [place] [address] Performed By: #### 2 4323-8 #### [facility] CLIA [id number] [address] [place] [address] [place] Platelets (Bld) [#/Vol] 156 10*3/uL Normal 150-400 [facility] Comment on above: Order Comment: Speci men Type: BLOOD SPECIMEN [facility] Address: [address] [place] [address] Performed By: #### 2 4323-8 #### [facility] CLIA [id number] [address] [place] [address] [place] RBC (Bld) [#/Vol] 3.83 10*6/uL Low 4.20-6.00 [facility] Comment on above: Order Comment: Speci men Type: BLOOD SPECIMEN [facility] Address: [address] [place] [address] Performed By: #### 2 4323-8 #### [facility] CLIA [id number] [address] [place] [address] [place] WBC (Bld) [#/Vol] 8.88 10*3/uL Normal 3.70-11.00 [facility] Comment on above: Order Comment: Speci men Type: BLOOD SPECIMEN [facility] Address: [address] [place] [address] Performed By: #### 2 4323-8 #### [facility] [id number] [address] [place] [address] [place] CONSULT PROGon 05-16-2024 CONSULT PROG HNO ID: [id number] Author: KIKO MCHUGH RPh Service: Pharmacy Author Type: Pharmacist Type: Consult Progress Note Filed: 05/17/2024 00:01 Note Text: PHARMACY VANCOMYCIN DOSING NOTE Patient Name: Yamilka Sharma Admission Date: 05/12/2024 Date of Consult: 05/16/2024 Time of Consult: 9:41 PM Indication: Bloodstream infection Goal Range: 15-20 mcg/mL RECOMMENDATIONS/PLAN: Pharmacy consulted for vancomycin dosing for Yamilka Sharma, a 58 year old male. 1. Patient is currently ordered Vancomycin 1.75 g q 24h. Today is day 6 of therapy. 2. The most recent vancomycin level was 19.3 mcg/mL drawn at 2055 on 05/16/24. This is a 25 hour level on the 6th day of therapy. 3. Will decrease vancomycin to 1.5 g with a dosing interval of q24h. 4. The next vancomycin level will be ordered for 05/20/24 unless clinically indicated sooner. (Pharmacy will order) We will follow patient renal function, vancomycin levels and doses with you during the course of therapy. Additional recommendations will appear in follow up notes. If you have any questions, please contact Pharmacy at [phone]. Age: [age] year old Allergies: ALLERGIES Allergen Reactions Aspartame Intolerance Severe headache Bactrim [Sulfametho* Hives, Intolerance Reaction: gas Sensitivity: Intolerance. Sensitivity: Intolerance Biaxin [Clarithromy* Unknown Indigestion/gas Influenza Vaccine T* Unknown Flu Monosodium Glutamat* Intolerance Severe headache Pantoprazole Diarrhea Sulfa (Sulfonamide * Rash, Hives Clindamycin Hcl Diarrhea, GI Upset, Vomiting Reaction: Nausea/vomiting/diarrhea Other Reaction: stomach cramps Sensitivity: Intolerance Last 3 Encounter Wt Readings: Date: Wt: 05/11/2024 123.7 kg (272 lb 9.6 oz) 05/11/2024 117.9 kg (260 lb) 04/19/2024 120.7 kg (266 lb) Last 1 Encounter Ht Readings: Date: Ht: 05/11/2024 182.9 cm (6') CrCl: 60.3 mL/min Temp (24hrs), Av.3 ?C (97.4 ?F), Min:36.2 ?C (97.2 ?F), Max:36.5 ?C (97.7 ?F) - Current Temp: 36.5 ?C (97.7 ?F) Labs BUN (mg/dL) Date Value 05/16/2024 49 (H) 05/15/2024 44 (H) 05/14/2024 35 (H) Creatinine (mg/dL) Date Value 05/16/2024 1.79 (H) 05/15/2024 1.89 (H) 05/14/2024 1.90 (H) WBC (k/uL) Date Value 05/16/2024 8.88 05/15/2024 10.38 05/14/2024 9.20 Vancomycin Levels: Vancomycin (ug/mL) Date/Time Value 05/16/2024 2056 19.3 05/13/2024 0831 24.2 (H) Kiko Mchugh, [facility] Normal [facility] Comprehensive metabolic 2000 panelon 05-16-2024 Albumin [Mass/Vol] 3.2 g/dL Low 3.9-4.9 [facility] Comment on above: Order Comment: Specjarvis malik Type: BLOOD SPECIMEN [facility] Address: [address] [place] [address] Performed By: #### 2 4323-8 #### [facility] CLIA [id number] [place] [address] [place] ALP [Catalytic activity/Vol] 89 U/L Normal 38-113 [facility] Comment on above: Order Comment: Speci men Type: BLOOD SPECIMEN Ordering Facility: [facility] Address: [address] [place] [address] Performed By: #### 2 4323-8 #### [facility] CLIA [id number] [address] [place] [address] [place] ALT [Catalytic activity/Vol] 13 U/L Normal 10-54 [facility] Comment on above: Order Comment: Speci men Type: BLOOD SPECIMEN Ordering Facility: [facility] Address: [address] [place] [address] Performed By: #### 2 4323-8 #### [facility] CLIA [id number] [place] [address] [place] Anion gap [Moles/Vol] 12 mmol/L Normal 8-15 [facility] Comment on above: Order Comment: Speci men Type: BLOOD SPECIMEN Ordering Facility: [facility] Address: [address] [place] [address] Performed By: #### 2 4323-8 #### [facility] CLIA [id number] [address] [place] [address] [place] AST [Catalytic activity/Vol] 12 U/L Low 14-40 [facility] Comment on above: Order Comment: Speci men Type: BLOOD SPECIMEN Ordering Facility[facility] Address: [address] [place] [address] Performed By: #### 2 4323-8 #### [facility] CLIA [id number] [address] [place] [address] [place] Bilirubin [Mass/Vol] 0.2 mg/dL Normal 0.2-1.3 [facility] Comment on above: Order Comment: Speci men Type: BLOOD SPECIMEN Ordering Facility: [facility] Address: [address] [place] [address] Performed By: #### 2 4323-8 #### [facility] CLIA [id number] [address] [place] [address] [place] Calcium [Mass/Vol] 9.0 mg/dL Normal 8.5-10.2 [facility] Comment on above: Order Comment: Speci men Type: BLOOD SPECIMEN Ordering Facility[facility] Address: [address] [place] [address] Performed By: #### 2 4323-8 #### [facility] CLIA [id number] [address] [place] [address] [place] Chloride [Moles/Vol] 96 mmol/L Low 98-107 [facility] Comment on above: Order Comment: Speci men Type: BLOOD SPECIMEN [facility]ing Facility[facility] Address: [address] [place] [address] Performed By: #### 2 4323-8 #### [facility] CLIA [id number] [place] [address] [place] CO2 [Moles/Vol] 25 mmol/L Normal 22-30 [facility] Comment on above: Order Comment: Speci men Type: BLOOD SPECIMEN [facility]ing [facility] Address: [address] [place] [address] Performed By: #### 2 4323-8 #### [facility] CLIA [id number] [address] [place] [address] [place] Creatinine [Mass/Vol] 1.79 mg/dL High 0.73-1.22 [facility] Comment on above: Order Comment: Speci men Type: BLOOD SPECIMEN Ordering [facility] Address: [address] [place] [address] Performed By: #### 2 4323-8 #### [facility] CLIA [id number] [address] [place] [address] OF [facility] Creatinine and Glomerular filtration rate.predicted panel (S/P/Bld) 43 mL/min/1.73m??? Low >=60 [facility] Comment on above: Order Comment: Speci men Type: BLOOD SPECIMEN Ordering Facility: [facility] Address: [address] [place] [address] Result Comment: Karissa mated Glomerular Filtration Rate (eGFR) is calculated using the 2020 CKD-EPI creatinine equation. This equation utilizes serum creatinine, sex, and age as parameters. The creatinine assay has traceable calibration to isotope dilution-mass spectrometry. Refer to KDIGO guidelines for clinical interpretation. In patients with unstable renal function, e.g. those with acute kidney injury, the eGFR may not accurately reflect actual GFR. Performed By: #### 2 4323-8 #### [facility] CLIA [id number] [place] [address] [place] Glucose [Mass/Vol] 171 mg/dL High 74-99 [facility] Comment on above: Order Comment: Raghui men Type: BLOOD SPECIMEN Ordering Facility: [facility] Address: [address] [place] [address] Result Comment: The [place] Diabetes Association (ADA) provides guidance for cutoff values for fasting glucose and random glucose. The ADA defines fasting as no caloric intake for at least 8 hours. Fasting plasma glucose results between 100 to 125 mg/dL indicate increased risk for diabetes (prediabetes). Fasting plasma glucose results greater than or equal to 126 mg/dL meet the criteria for diagnosis of diabetes. In the absence of unequivocal hyperglycemia, results should be confirmed by repeat testing. In a patient with classic symptoms of hyperglycemia or hyperglycemic crisis, random plasma glucose results greater than or equal to 200 mg/dL meet the criteria for diagnosis of diabetes. Reference: Standards of Medical Care in Diabetes 2016, [place] [employer]. Diabetes Care. 2016.39(Suppl 1). Performed By: #### 2 4323-8 #### [facility] CLIA [id number] [address] [place] [address] [place] Potassium [Moles/Vol] 4.3 mmol/L Normal 3.7-5.1 [facility] Comment on above: Order Comment: Santo malik Type: BLOOD SPECIMEN Ordering Facility[facility] Address: [address] [place] [address] Performed By: #### 2 4323-8 #### [facility] CLIA [id number] [address] [place] [address] [place] Protein [Mass/Vol] 7.1 g/dL Normal 6.3-8.0 [facility] Comment on above: Order Comment: Raghui men Type: BLOOD SPECIMEN Ordering Facility[facility] Address: [address] [place] [address] Performed By: #### 2 4323-8 #### [facility] CLIA [id number] [address] [place] [address] [place] Sodium [Moles/Vol] 133 mmol/L Low 136-144 [facility] Comment on above: Order Comment: Raghui men Type: BLOOD SPECIMEN Ordering Facility[facility] Address: [address] [place] [address] Performed By: #### 2 4323-8 #### [facility] CLIA [id number] [address] [place] [id number] [place] Urea nitrogen [Mass/Vol] 49 mg/dL High 9- [facility] Comment on above: Order Comment: Speci men Type: BLOOD SPECIMEN Ordering Facility[facility] Address: [address] [place] [address] Performed By: #### 2 4323-8 #### [facility] CLIA [id number] [address] [place] [id number] [place] NUTRITIONon 05-16-2024 NUTRITION HNO ID: [id number] Author: CHRSITIE RIVERS RD Service: NST-Nutrition Support Team Author Type: Registered Dietitian Type: Nutrition Filed: 05/16/2024 16:01 Note Text: NUTRITION THERAPY INITIAL ASSESSMENT SERVICE DATE: 05/16/2024 SERVICE TIME: 1506 Nutrition Assessment: Recommended Malnutrition Diagnosis: Mild Protein-Calorie Malnutrition In the context of: Acute Illness or Injury Based on: Insufficient Energy Intake Nutrition Diagnosis: Problem: Suboptimal protein/energy intake Related to: Acute illness As evidenced by: Weight loss, Medical condition, Laboratory markers, Wound(s), Anorexia, Intake records, Patient/family self-report Care Plan: Continue current diet Medications: Laxative Pt declined supplements. Monitor and Evaluation: Meet greater than 75% of estimated needs, Monitor labs, I/Os, vital signs, weight, Monitor fluid/electrolyte balance, Monitor bowel function Discharge Recommendations: Diet Diet: Carb controlled HPI: 58 y.o. male h/o DM, lymphoma, afib, CAD, obesity, HTN, and Gout presents with weakness, fever and UTI. Intake History: Pt reports eats two meals per day (breakfast and dinner). Food include eggs, rye toast, fruit cup, steak, burger, and veggies. Drinks coffee, water, celsius and sparkling water. Pt reports not taking MVI or protein supplement. Pt reports decreased appetite for 2 mo, potentially d/t medications. Pt reports increased appetite since hospitalization and eating well. Nutrition Intake Prior to Admission: Less than 75% estimated energy needs greater than or equal to 1 month (2 months) Current Nutrition Intake: Less than 75% estimated energy needs Current Intake Over time: Greater than or equal to 5 days Dosing Weight: 123.7 kg (272 lb 11.3 oz) Dosing Weight Type: Admit weight Estimated kilocalorie needs: 1434-0781 Calorie Calculation Method: 15-20 kcals/kg Estimated protein needs (grams): 116-155 Grams protein determined by: Cameron body weight, 1.5 - 2.0 g/kg Diet Orders (From admission, onward) Start Ordered 05/15/24 1130 DIET CARBOHYDRATE CONTROLLED START NOW Question: Carbohydrate Control Answer: CONSISTENT CARBOHYDRATE 05/15/24 1117 Anthropometrics: Height: 182.9 cm (6') Weight: 123.7 kg (272 lb 9.6 oz) Usual Weight: 129.3 kg (285 lb) 11/19/23 Usual Weight Obtained From: Chart Review Body mass index is 36.97 kg/m?. Weight change percentage over time: 9% x 6 mo; 6% x 3 mo; 9% x 1 yr (Wt loss possibly d/t diabetes medication.) Weight Change: Potentially clinically signficant but does not meet criteria to support malnutrition diagnosis Physical Exam: Subcutaneous fat loss: No fat loss Muscle loss: No muscle loss Potential micronutrient deficiency: No deficiency identified Edema/Ascites: No edema, No ascites GI Symptoms: Diarrhea, Anorexia Stool Amount: WNL Stool Consistency: Formed Functional Status: Not related to malnutrition status Potential Signs of Inflammation: Chronic condition, Tachycardia, Hypoalbuminemia, Hyperglycemia, Microbiologic cultures DM, lymphoma, afib, CAD, obesity, HTN, Gout MNT Billing: $ Initial Assessment: 1-15 minutes SIGNATURE: Marlene Prajapati Sand Mixer PATIENT NAME: Yamilka Sharma DATE: May 16, 2024 TIME: 3:34 PM I have reviewed the nutritional assessment or follow-up note documented by the property management intern and I personally participated in the glasgow components. I have discussed the case and nutritional management of the patients care Christie Rivers RD [facility] PT EDon 05-16-2024 PT ED HNO ID: [id number] Author: CHRISTIE RIVERS RD Service: NST-Nutrition Support Team Author Type: Registered Dietitian Type: Patient Education Filed: 05/16/2024 16:03 Note Text: NUTRITION THERAPY PATIENT EDUCATION SERVICE DATE: 05/16/2024 SERVICE TIME: 1506 TOPIC: Diet: A Guide to Diabetes Self-Care Provided pt with guide and business card for outpatient RDNs. LEARNING ASSESSMENT Individuals Assessed: Patient Preferred Learning Method: Individual Instruction Barriers to Learning: None Evident LEARNING RESPONSE Instruction Provided to: Patient Patient / Family Response: Verbalizes Understanding Method of Instruction: Written instruction/Handouts Verbal instruction Material(s) Provided to Patient: Diabetes guide Follow-Up Plan: Complete - No need for follow-up Referral (Recommendation): Diabetes Self Management Education Program and Nutrition - Outpatient MNT Billing: $ Initial Assessment: 1-15 minutes SIGNATURE: Marlene Prajapati Sand Mixer PATIENT NAME: Yamilka Sharma DATE: May 16, 2024 TIME: 3:47 PM PAGER: I have reviewed the nutritional assessment or follow-up note documented by the property management intern and I personally participated in the glasgow components. I have discussed the case and nutritional management of the patients care Christie Rivers RD Normal [facility] PVR ANK PRESS [facility]on 05-16-2024 PVR ANK PRESS [facility] Non-Invasive Vascular Laboratory [facility] Lower Extremity Arterial Physiology Study Bilateral/Complete Date of service/time: 05/16/2024 3:12:59 PM Name: MR. YAMILKA SHARMA Date of : 1965 Age: 58 years Gender: M Clinical Indication Leg/foot ulceration. TECHNIQUE -------- An arterial physiological examination was performed, including measurement of blood pressures using continuous wave Doppler and recording of plethysmographic with or without Doppler waveforms at the below-mentioned limb segments. FINDINGS -------- RIGHT SIDE AT REST Right Pressures Brachial: 128 mmHg Ankle dorsalis pedis: 140 mmHg [place]: 1.09 Ankle posterior tibial: 155 mmHg [place]: 1.21 Right PVR Waveforms Ankle: Normal. Transmetatarsal: Normal. Digit: Normal. LEFT SIDE AT REST Left Pressures Brachial: 126 mmHg Ankle dorsalis pedis: 152 mmHg [place]: 1.19 Ankle posterior tibial: 150 mmHg [place]: 1.17 Left PVR Waveforms Ankle: Normal. Transmetatarsal: Normal. Digit: Normal. IMPRESSION RIGHT SIDE Resting right ankle brachial index: 1.21 Normal ankle brachial index at rest in the right leg. Right ankle: Normal at rest. LEFT SIDE Resting left ankle brachial index: 1.19 Normal ankle brachial index at rest in the left leg. Left ankle: Normal at rest. Technologist: Tashia Brady RVT Ordering physician: LIBIA SIBLEY Ordering physician: Leo Lea MD Interpreting physician: Myron Marr MD, RPVI [employer] Medical Image : [id number] oDynamicsSISUID See Link below for Image Normal [facility] US LEG VEIN DVT [facility]o n 05-16-2024 US LEG VEIN DVT [facility] Non-Invasive Vascular Laboratory [facility] Lower Extremity Venous Duplex Bilateral/Complete Date of service/time: 05/16/2024 3:28:21 PM Name: MR. YAMILKA SHARMA Date of : 1965 Age: 58 years Gender: M Clinical Indication Lower extremity swelling and lower extremity pain. TECHNIQUE -------- A venous duplex ultrasound examination was performed, including grayscale imaging with compression maneuvers and color Doppler and spectral Doppler examination with augmentation maneuvers and response to respiration of the below mentioned veins. FINDINGS -------- RIGHT SIDE Distal external iliac vein Doppler: normal flow. Compression: normal. Common femoral vein Doppler: normal flow. Compression: normal. Femoral vein Doppler: normal flow. Compression: normal. Popliteal vein Doppler: normal flow. Compression: normal. Posterior tibial veins Compression: normal. Peroneal veins Compression: normal. Great saphenous vein Compression: normal. Small saphenous vein Compression: normal. LEFT SIDE Distal external iliac vein Doppler: abnormal flow with reflux. Compression: normal. Common femoral vein Doppler: normal flow. Compression: normal. Femoral vein Doppler: abnormal flow with reflux. Compression: normal. Popliteal vein Doppler: normal flow. Compression: normal. Posterior tibial veins Compression: normal. Peroneal veins Compression: normal. Great saphenous vein Compression: normal. Small saphenous vein Compression: normal. IMPRESSION RIGHT SIDE - DEEP VEINS Negative for acute deep vein thrombosis. LEFT SIDE - DEEP VEINS Negative for acute deep vein thrombosis. Positive for valvular incompetency in the distal external iliac vein and femoral vein. Technologist: Tashia Brady RVT Ordering physician: LEO LEA Interpreting physician: Myron Marr MD, EMILY [employer] Medical Image : [id number] D See Link below for Image Normal [facility] Vancomycin Joppa SerPl-mCncon 05-16-2024 Vancomycin random [Mass/Vol] 19.3 ug/mL Normal 10.0-20.0 [facility] Comment on above: Order Comment: Santo malik Type: BLOOD SPECIMEN Order[facility] Address: [address] [place] [address] Result Comment: Refe rence ranges and high/low indicator flags are provided as general guidelines only. The treating physician must determine appropriate target levels/dosing based on the specific clinical situation. Performed By: #### 2 4323-8 #### [facility] CLIA [id number] [address] [place] [address] [place] CBC panel Auto (Bld)on 05-15 Erythrocyte distribution width (RBC) [Ratio] 14.6 % Normal 11.5-15.0 [facility] Comment on above: Order Comment: Santo malik Type: BLOOD SPECIMEN Ordering Facility[facility] Address: [address] [place] [address] Performed By: #### 4 091-5 #### [facility] CLIA [id number] [address] [place] [address] [place] Hematocrit (Bld) [Volume fraction] 34.2 % Low 39.0-51.0 [facility] Comment on above: Order Comment: Speci men Type: BLOOD SPECIMEN Ordering Facility[facility] Address: [address] [place] [address] Performed By: #### 4 091-5 #### [facility] CLIA [id number] [address] [place] [address] [place] Hemoglobin (Bld) [Mass/Vol] 11.2 g/dL Low 13.0-17.0 [facility] Comment on above: Order Comment: Speci men Type: BLOOD SPECIMEN Ordering [facility] Address: [address] [place] [address] Performed By: #### 4 091-5 #### [facility] CLIA [id number] [address] [place] [address] [place] MCH (RBC) [Entitic mass] 26.2 pg Normal 26.0-34.0 [facility] Comment on above: Order Comment: Speci men Type: BLOOD SPECIMEN Order[facility] Address: [address] [place] [address] Performed By: #### 4 091-5 #### [facility] CLIA [id number] [address] [place] [address] [place] MCHC (RBC) [Mass/Vol] 32.7 g/dL Normal 30.5-36.0 [facility] Comment on above: Order Comment: Speci men Type: BLOOD SPECIMEN Order[facility] Address: [address] [place] [address] Performed By: #### 4 091-5 #### [facility] CLIA [id number] [address] [place] [address] [place] MCV (RBC) [Entitic vol] 79.9 fL Low 80.0-100.0 [facility] Comment on above: Order Comment: Speci men Type: BLOOD SPECIMEN Order[facility] Address: [address] [place] [address] Performed By: #### 4 091-5 #### [facility] CLIA [id number] [address] [place] [address] [place] Nucleated RBC (Bld) [#/Vol] 10*3/uL Normal <0.01 [facility] Comment on above: Order Comment: Speci men Type: BLOOD SPECIMEN Order[facility] Address: [address] [place] [address] Performed By: #### 4 091-5 #### [facility] CLIA [id number] [address] [place] [address] [place] Platelet mean volume (Bld) [Entitic vol] 11.3 fL Normal 9.0-12.7 [facility] Comment on above: Order Comment: Speci men Type: BLOOD SPECIMEN Order[facility] Address: [address] [place] [address] Performed By: #### 4 091-5 #### [facility] CLIA [id number] [address] [place] [address] [place] Platelets (Bld) [#/Vol] 155 10*3/uL Normal 150-400 [facility] Comment on above: Order Comment: Speci men Type: BLOOD SPECIMEN Order[facility] Address: [address] [place] [address] Performed By: #### 4 091-5 #### [facility] CLIA [id number] [address] [place] [address] [place] RBC (Bld) [#/Vol] 4.28 10*6/uL Normal 4.20-6.00 [facility] Comment on above: Order Comment: Speci men Type: BLOOD SPECIMEN Order[facility] Address: [address] [place] [address] Performed By: #### 4 091-5 #### [facility] CLIA [id number] [address] [place] [address] [place] WBC (Bld) [#/Vol] 10.38 10*3/uL Normal 3.70-11.00 [facility] Comment on above: Order Comment: Speci men Type: BLOOD SPECIMEN Order[facility] Address: [address] [place] [address] Performed By: #### 4 091-5 #### [facility] [id number] [place] CONSULT PROGon 05-15-2024 CONSULT PROG HNO ID: [id number] Author: ALESHA COLEMAN DPM Service: Podiatry Author Type: Physician Type: Consult Progress Note Filed: 05/16/2024 14:44 Note Text: PODIATRIC MEDICINE AND SURGERY Complaint: 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 ASSESSMENT, RECOMMENDATIONS AND PLAN: Discussion with the patient today including questions and answers regarding the etiology and treatment options for the current problems. -MRI pending -PVRs pending - Patient's wound was evaluated today. The patient is doing well. Redness and swelling of the forefoot localized from cellulitis has decreased compared to previous visit. Endorses occasional shooting pain, which correlates with his diabetic neuropathy. No complaints at this time. - Wound was dressed with Betadine, 4 x 4's, Kerlix, and PAVEL. Dressing orders placed - Deposition: WB as tolerated - Patient is aware of the possibility of surgery to his right big toe. Depending on the results of the MRI the patient might need a incision and drainage or a partial hallux amputation. 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 Patient was admitted on 05/12 for fever and tachycardia.Patient started to feel sick 3 days before his admission. 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 Overall patent is feeling much better after treatment of antibiotics and states that the toe has improved as well. Patient is a poorly controled diabetic with blood sugar levels staying in the 200s. Patient has no other complaints at this time. PAST MEDICAL HISTORY Diagnosis Date Acute exacerbation of chronic obstructive airways disease (HCC) Rx for augmentin, symptomatic care as needed. Patient denies COPD, asthma, uses an inhaler PRN usually about once a year with hot weather Anemia Depression Diffuse large B cell lymphoma (HCC) 07/14/2019 Encounter for screening for malignant neoplasm of prostate Essential hypertension continue Lisinopril Hydronephrosis Hydronephrosis with ureteral stricture Hypomagnesemia 10/30/2019 Nausea and vomiting 01/09/2023 Obesity, Class II, BMI 35-39.9 12/15/2022 DEISI (obstructive sleep apnea) mild and no CPAP Paroxysmal atrial fibrillation (HCC) 01/10/2023 Prostatitis 01/09/2023 Sepsis due to gram-negative UTI (HCC) (HCC) 10/25/2019 Thrombocytopenia (HCC) Type 2 diabetes mellitus (HCC) continue current meds Ureteral obstruction, left Urinary tract infection Vitamin D deficiency 01/09/2023 PAST SURGICAL HISTORY Procedure Laterality Date APPENDECTOMY 1981 BONE MARRO ASPIRATE AND BIOPSY 07/20/2019 CYSTOSCOPY 2019 KNIFE,CARPAL TUNNEL, Bilateral Carpal Tunnel Surgery 06/10/2013 NEPHROSTOMY TUBE 06/2019 PAST SURGICAL HISTORY OF 2013 temporal arterial biopsy PAST SURGICAL HISTORY OF 2013 sinus scraping, deviated septum repair PAST SURGICAL HISTORY OF Right PURPLE POWER PORT RIGHT CHEST PAST SURGICAL HISTORY OF Right TESTICLE REMOVED PAST SURGICAL HISTORY OF 02/19/2021 ureter stent Current Facility-Administered Medications Medication Dose Route Frequency NaCl 0.9% iv flush bag 20 mL INTRAVENOUS PRN ondansetron 4 mg tab(s) (ZOFRAN) 4 mg ORAL q 6 H PRN Or ondansetron (PF) 4 mg injection (ZOFRAN) 4 mg INTRAVENOUS q 6 H PRN acetaminophen 650 mg tab(s) (TYLENOL) 650 mg ORAL q 6 H PRN sodium bicarbonate 1,300 mg tab(s) 1,300 mg ORAL BID gabapentin 600 mg tab(s) (NEURONTIN) 600 mg ORAL TID rosuvastatin 40 mg tab(s) (CRESTOR) 40 mg ORAL DAILY albuterol HFA 90 mcg/actuation 2 Puff (PROVENTIL HFA, VENTOLIN HFA) 2 Puff INHALATION q 6 H PRN metoprolol tartrate (short acting) 25 mg tab(s) (LOPRESSOR) 25 mg ORAL q 12 H allopurinol 100 mg tab(s) (ZYLOPRIM) 100 mg ORAL BID DULoxetine 60 mg cap(s) (CYMBALTA) 60 mg ORAL BID dextrose 40 % 15 g 15 g ORAL PRN Or glucagon 1 mg injection 1 mg INTRAMUSCULAR PRN Or dextrose 10% iv bolus 12.5 g INTRAVENOUS PRN oxyCODONE IR 5 mg tab(s) (ROXICODONE) 5 mg ORAL q 6 H PRN vancomycin dosing and monitoring per pharmacy OTHER As Directed piperacillin-tazobactam iv piggyback 3.375 g in dextrose (iso-osmotic) 50 mL (ZOSYN) 3.375 g INTRAVENOUS q 6 H vancomycin 1.75 g in D5W 500 mL (VANCOCIN) 1.75 g INTRAVENOUS q 24 HR insulin lispro injection (rapid acting) (ADMElog) SUBCUTANEOUS w MEALS AND HS dilTIAZem CD 120 mg cap(s) (CARDIZEM CD, CARTIA XT) 120 mg ORAL DAILY lisinopril 5 mg tab(s) (ZESTRIL) 5 mg ORAL DAILY predniSONE 20 mg tab(s) (DELTASONE) 20 mg ORAL DAILY insulin glargine 30 Units pen (long acting) 30 Units SUBCUTANEOUS DAILY (8 AM) insulin lispro 9 Units injection (rapid acting) (ADMElog) 9 Units SUBCUTANEOUS w MEALS ALLERGIES Allergen Reactions Asp (more content not included)... Normal [facility] Comprehensive metabolic 2000 panelon 05-15-2024 Albumin [Mass/Vol] 3.2 g/dL Low 3.9-4.9 [facility] Comment on above: Order Comment: Speci men Type: BLOOD SPECIMEN Ordering Facility: [facility] Address: [address] [place] [address] Performed By: #### 2 4323-8 #### [facility] CLIA [id number] [address] [place] [address] [place] ALP [Catalytic activity/Vol] 91 U/L Normal 38-113 [facility] Comment on above: Order Comment: Speci men Type: BLOOD SPECIMEN Ordering Facility: [facility] Address: [address] [place] [address] Performed By: #### 2 4323-8 #### [facility] CLIA [id number] [address] [place] [address] [place] ALT [Catalytic activity/Vol] 15 U/L Normal 10-54 [facility] Comment on above: Order Comment: Speci men Type: BLOOD SPECIMEN Ordering Facility: [facility] Address: [address] [place] [address] Performed By: #### 2 4323-8 #### [facility] CLIA [id number] [address] [place] [address] [place] Anion gap [Moles/Vol] 13 mmol/L Normal 8-15 [facility] Comment on above: Order Comment: Speci men Type: BLOOD SPECIMEN [facility]ing Facility: [facility] Address: [address] [place] [address] Performed By: #### 2 4323-8 #### [facility] CLIA [id number] [address] [place] [address] [place] AST [Catalytic activity/Vol] 13 U/L Low 14-40 [facility] Comment on above: Order Comment: Speci men Type: BLOOD SPECIMEN [facility]ing Facility: [facility] Address: [address] [place] [address] Performed By: #### 2 4323-8 #### [facility] CLIA [id number] [address] [place] [address] [place] Bilirubin [Mass/Vol] 0.2 mg/dL Normal 0.2-1.3 [facility] Comment on above: Order Comment: Speci men Type: BLOOD SPECIMEN Ordering Facility: [facility] Address: [address] [place] [address] Performed By: #### 2 4323-8 #### [facility] CLIA [id number] [address] [place] [address] [place] Calcium [Mass/Vol] 8.8 mg/dL Normal 8.5-10.2 [facility] Comment on above: Order Comment: Speci men Type: BLOOD SPECIMEN Ordering Facility: [facility] Address: [address] [place] [address] Performed By: #### 2 4323-8 #### [facility] CLIA [id number] [address] [place] [address] [place] Chloride [Moles/Vol] 95 mmol/L Low 98-107 [facility] Comment on above: Order Comment: Speci men Type: BLOOD SPECIMEN [facility]ing Facility[facility] Address: [address] [place] [address] Performed By: #### 2 4323-8 #### [facility] CLIA [id number] [address] [place] [address] [place] CO2 [Moles/Vol] 23 mmol/L Normal 22-30 [facility] Comment on above: Order Comment: Raghui king Type: BLOOD SPECIMEN [facility] Facility[facility] Address: [address] [place] [address] Performed By: #### 2 4323-8 #### [facility] CLIA [id number] [address] [place] [address] [place] Creatinine [Mass/Vol] 1.89 mg/dL High 0.73-1.22 [facility] Comment on above: Order Comment: Raghui men Type: BLOOD SPECIMEN [facility]ing Facility[facility] Address: [address] [place] [address] Performed By: #### 2 4323-8 #### [facility] CLIA [id number] [address] [place] [address] [place] Creatinine and Glomerular filtration rate.predicted panel (S/P/Bld) 40 mL/min/1.73m??? Low >=60 [facility] Comment on above: Order Comment: Santo malik Type: BLOOD SPECIMEN Ordering Facility: [facility] Address: [address] [place] [address] Result Comment: Karissa mated Glomerular Filtration Rate (eGFR) is calculated using the 2020 CKD-EPI creatinine equation. This equation utilizes serum creatinine, sex, and age as parameters. The creatinine assay has traceable calibration to isotope dilution-mass spectrometry. Refer to KDIGO guidelines for clinical interpretation. In patients with unstable renal function, e.g. those with acute kidney injury, the eGFR may not accurately reflect actual GFR. Performed By: #### 2 4323-8 #### [facility] CLIA [id number] [address] [place] [address] [place] Glucose [Mass/Vol] 223 mg/dL High 74-99 [facility] Comment on above: Order Comment: Raghui men Type: BLOOD SPECIMEN Ordering Facility: [facility] Address: [address] [place] [address] Result Comment: The [place] [employer] (ADA) provides guidance for cutoff values for fasting glucose and random glucose. The ADA defines fasting as no caloric intake for at least 8 hours. Fasting plasma glucose results between 100 to 125 mg/dL indicate increased risk for diabetes (prediabetes). Fasting plasma glucose results greater than or equal to 126 mg/dL meet the criteria for diagnosis of diabetes. In the absence of unequivocal hyperglycemia, results should be confirmed by repeat testing. In a patient with classic symptoms of hyperglycemia or hyperglycemic crisis, random plasma glucose results greater than or equal to 200 mg/dL meet the criteria for diagnosis of diabetes. Reference: Standards of Medical Care in Diabetes 2016, [place] [employer]. Diabetes Care. 2016.39(Suppl 1). Performed By: #### 2 4323-8 #### [facility] CLIA [id number] [address] [place] [address] [place] Potassium [Moles/Vol] 4.8 mmol/L Normal 3.7-5.1 [facility] Comment on above: Order Comment: Speci men Type: BLOOD SPECIMEN Ordering Facility[facility] Address: [address] [place] [address] Performed By: #### 2 4323-8 #### [facility] CLIA [id number] [address] [place] [address] [place] Protein [Mass/Vol] 7.2 g/dL Normal 6.3-8.0 [facility] Comment on above: Order Comment: Speci men Type: BLOOD SPECIMEN Ordering Facility[facility] Address: [address] [place] [address] Performed By: #### 2 4323-8 #### [facility] CLIA [id number] [address] [place] [address] [place] Sodium [Moles/Vol] 131 mmol/L Low 136-144 [facility] Comment on above: Order Comment: Speci men Type: BLOOD SPECIMEN Ordering Facility[facility] Address: [address] [place] [address] Performed By: #### 2 4323-8 #### [facility] CLIA [id number] [address] [place] [address] [place] Urea nitrogen [Mass/Vol] 44 mg/dL High 9-24 [facility] Comment on above: Order Comment: Speci men Type: BLOOD SPECIMEN Ordering Facility[facility] Address: [address] [place] [address] Performed By: #### 2 4323-8 #### [facility] CLIA [id number] [address] [place] [address] [place] CBC panel Auto (Bld)on 05-14 Erythrocyte distribution width (RBC) [Ratio] 14.7 % Normal 11.5-15.0 [facility] Comment on above: Order Comment: Speci men Type: BLOOD SPECIMEN Ordering Facility[facility] Address: [address] [place] [address] Performed By: #### 2 4323-8 #### [facility] CLIA [id number] [address] [place] [address] [place] Hematocrit (Bld) [Volume fraction] 34.2 % Low 39.0-51.0 [facility] Comment on above: Order Comment: Speci men Type: BLOOD SPECIMEN Ordering Facility[facility] Address: [address] [place] [address] Performed By: #### 2 4323-8 #### [facility] CLIA [id number] [address] [place] [address] [place] Hemoglobin (Bld) [Mass/Vol] 11.1 g/dL Low 13.0-17.0 [facility] Comment on above: Order Comment: Speci men Type: BLOOD SPECIMEN Ordering Facility[facility] Address: [address] [place] [address] Performed By: #### 2 4323-8 #### [facility] CLIA [id number] [address] [place] [address] [place] MCH (RBC) [Entitic mass] 26.3 pg Normal 26.0-34.0 [facility] Comment on above: Order Comment: Speci men Type: BLOOD SPECIMEN Ordering [facility] Address: [address] [place] [address] Performed By: #### 2 4323-8 #### [facility] CLIA [id number] [address] [place] [address] [place] MCHC (RBC) [Mass/Vol] 32.5 g/dL Normal 30.5-36.0 [facility] Comment on above: Order Comment: Speci men Type: BLOOD SPECIMEN Ordering [facility] Address: [address] [place] [address] Performed By: #### 2 4323-8 #### [facility] CLIA [id number] [address] [place] [address] [place] MCV (RBC) [Entitic vol] 81.0 fL Normal 80.0-100.0 [facility] Comment on above: Order Comment: Speci men Type: BLOOD SPECIMEN Ordering Facility[facility] Address: [address] [place] [address] Performed By: #### 2 4323-8 #### [facility] CLIA [id number] [address] [place] [address] [place] Nucleated RBC (Bld) [#/Vol] 10*3/uL Normal <0.01 [facility] Comment on above: Order Comment: Speci men Type: BLOOD SPECIMEN Ordering Facility[facility] Address: [address] [place] [address] Performed By: #### 2 4323-8 #### [facility] CLIA [id number] [address] [place] [address] [place] Platelet mean volume (Bld) [Entitic vol] 11.3 fL Normal 9.0-12.7 [facility] Comment on above: Order Comment: Speci men Type: BLOOD SPECIMEN Ordering Facility[facility] Address: [address] [place] [address] Performed By: #### 2 4323-8 #### [facility] CLIA [id number] [address] [place] [address] [place] Platelets (Bld) [#/Vol] 129 10*3/uL Low 150-400 [facility] Comment on above: Order Comment: Speci men Type: BLOOD SPECIMEN Ordering Facility: [facility] Address: [address] [place] [address] Performed By: #### 2 4323-8 #### [facility] CLIA [id number] [address] [place] [address] [place] RBC (Bld) [#/Vol] 4.22 10*6/uL Normal 4.20-6.00 [facility] Comment on above: Order Comment: Speci men Type: BLOOD SPECIMEN Ordering Facility: [facility] Address: [address] [place] [address] Performed By: #### 2 4323-8 #### [facility] CLIA [id number] [address] [place] [address] [place] WBC (Bld) [#/Vol] 9.20 10*3/uL Normal 3.70-11.00 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 Consultation requested by Dr. Tye MALDONADO MD for an opinion regarding the above complaint. My final recommendations will be communicated back to the requesting physician by way of shared Medical record. ASSESSMENT, RECOMMENDATIONS AND PLAN: Discussion with the patient today including questions and answers regarding the etiology and treatment options for the current problems. - Meds: Vanco/Zosyn, culutres currently show Streptococcus - xray: Soft tissue swelling and wound of the distal medial first digit. Cortical irregularity of the underlying distal phalanx proximal medial aspect could be due to osteomyelitis. Possible subcutaneous gas at the lateral aspect of the distal first digit. -MRI pending -PVRs pending - Patient's wound was evaluated today. - Wound was dressed with Betadine, 4 x 4's, Kerlix, and tape. Dressing orders placed - Deposition: WB as tolerated - Patient is aware of the possibility of surgery to his right big toe. Depending on the results of the MRI the patient might need a incision and drainage or a partial hallux amputation. All questions answered to the patient's apparent satisfaction. Will continue to follow patient. 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 Patient was admitted on 05/12 for fever and tachycardia.Patient started to feel sick 3 days before his admission. 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 Overall patent is feeling much better after treatment of antibiotics and states that the toe has improved as well. Patient is a poorly controled diabetic with blood sugar levels staying in the 200s. Patient has no other complaints at this time. PAST MEDICAL HISTORY Diagnosis Date Acute exacerbation of chronic obstructive airways disease (HCC) Rx for augmentin, symptomatic care as needed. Patient denies COPD, asthma, uses an inhaler PRN usually about once a year with hot weather Anemia Depression Diffuse large B cell lymphoma (HCC) 07/14/2019 Encounter for screening for malignant neoplasm of prostate Essential hypertension continue Lisinopril Hydronephrosis Hydronephrosis with ureteral stricture Hypomagnesemia 10/30/2019 Nausea and vomiting 01/09/2023 Obesity, Class II, BMI 35-39.9 12/15/2022 DEISI (obstructive sleep apnea) mild and no CPAP Paroxysmal atrial fibrillation (HCC) 01/10/2023 Prostatitis 01/09/2023 Sepsis due to gram-negative UTI (HCC) (HCC) 10/25/2019 Thrombocytopenia (HCC) Type 2 diabetes mellitus (HCC) continue current meds Ureteral obstruction, left Urinary tract infection Vitamin D deficiency 01/09/2023 PAST SURGICAL HISTORY Procedure Laterality Date APPENDECTOMY 1982 BONE MARRO ASPIRATE AND BIOPSY 07/20/2019 CYSTOSCOPY 2019 KNIFE,CARPAL TUNNEL,[id number] Bilateral Carpal Tunnel Surgery 06/10/2013 NEPHROSTOMY TUBE 06/2019 PAST SURGICAL HISTORY OF 2012 temporal arterial biopsy PAST SURGICAL HISTORY OF 2013 sinus scraping, deviated septum repair PAST SURGICAL HISTORY OF Right PURPLE POWER PORT RIGHT CHEST PAST SURGICAL HISTORY OF Right TESTICLE REMOVED PAST SURGICAL HISTORY OF 02/19/2021 ureter stent Current Facility-Administered Medications Medication Dose Route Frequency NaCl 0.9% iv flush bag 20 mL INTRAVENOUS PRN ondansetron 4 mg tab(s) (ZOFRAN) 4 mg ORAL q 6 H PRN Or ondansetron (PF) 4 mg injection (ZOFRAN) 4 mg INTRAVENOUS q 6 H PRN acetaminophen 650 mg tab(s) (TYLENOL) 650 mg ORAL q 6 H PRN sodium bicarbonate 1,300 mg tab(s) 1,300 mg ORAL BID gabapentin 600 mg tab(s) (NEURONTIN) 600 mg ORAL TID rosuvastatin 40 mg tab(s) (CRESTOR) 40 mg ORAL DAILY albuterol HFA 90 mcg/actuation 2 Puff (PROVENTIL HFA, VENTOLIN HFA) 2 Puff INHALATION q 6 H PRN metoprolol tartrate (short acting) 25 mg tab(s) (LOPRESSOR) 25 mg ORAL q 12 H allopurinol 100 mg tab(s) (ZYLOPRIM) 100 mg ORAL BID DULoxetine 60 mg cap(s) (CYMBALTA) 60 mg ORAL BID dextrose 40 % 15 g 15 g ORAL PRN Or glucagon 1 mg injection 1 mg INTRAMUSCULAR PRN Or dextrose 10% iv bolus 12.5 g INTRAVENOUS PRN insulin lispro 6 Units injection (rapid acting) (ADMElog) 6 Units SUBCUTANEOUS w MEALS oxyCODONE IR 5 mg tab(s) (ROXICODONE) 5 mg ORAL q 6 H PRN vancomycin dosing and monitoring per pharmacy OTHER As Directed piperacillin-tazobactam iv piggyback 3.375 g in dextrose (iso-osmotic) 50 mL (ZOSYN) 3.375 g INTRAVENOUS q 6 H vancomycin 1.75 g in D5W 500 mL (VANCOCIN) 1.75 g INTRAVENOUS q 24 HR (more content not included)... [facility] CONSULT PROGon 05-14-2024 CONSULT PROG HNO ID: [id number] Author: RADHA MILLER MD Service: Rheumatology Author Type: Physician Type: Consult Progress Note Filed: 05/16/2024 00:02 Note Text: RHEUMATOLOGY PROGRESS NOTE PATIENT NAME: Yamilka Sharma DATE of SERVICE: May 14, 2024 Primary Care Physician: Najma Bloom, DO ASSESSMENT AND PLAN 58 year old male with PMH including CKD, Hyperuricemia, DM type II, hy non-Hodgkin lymphoma currently in remission pretension, paroxysmal A-fib, CAD, obesity, hypertension, who presents to the ED for generalized weakness and fever, was found to have osteomyelitis of distal phalanx of right great toe, had left leg / knee pain, rheumatology consulted for aspirating left knee. -Vital signs showed fever with T 38.3. -Lab reviewed: Uric acid 7.4, was 11 a year ago, CRP 19.5 H, UA suggestive of UTI, no leucocytosis, Cr 2.12 H, sodium 130. -Left knee x ray: Normal. -Right foot x ray: Soft tissue swelling and wound of the distal medial first digit. Cortical irregularity of the underlying distal phalanx proximal medial aspect could be due to osteomyelitis. Possible subcutaneous gas at the lateral aspect of the distal first digit. Update: -Left knee was aspirated on 05/13/2024, synovial fluid suggestive of inflammatory arthritis, synovial fluid cultures negative so far. -Left knee synovial fluid analysis on 05/13/2024: WBC 24,303 H, 95% neutrophils, RBCs 20,000, no crystals identified, synovial fluid culture negative. Problem list: -Left knee large warm effusion, suggestive of inflammatory arthritis, likely gout more than pseudogout even though synovial fluid is negative for crystals, septic arthritis is possible although less likely with negative synovial fluid culture. -Hyperuricemia, with CKD III, and now likely left knee inflammatory arthritis effusion, all raises suspicion for gout. -Osteomyelitis of distal phalanx of right great toe, and UTI, ID team following -Generalized weakness, due to current infections, and hyponatremia, ID and primary team following. Plan: -Consider starting prednisone if ID team is okay, dose will be prednisone 20 mg daily for 5 to 7 days then stop, watch for hyperglycemia. -Try to avoid steroid injection for now due to still ongoing possibility of septic arthritis, at least till final synovitic culture is negative. -Avoid NSAIDs or colchicine in general due to CKD. -If fluid eventually is positive for infection then will need orthopedic consult. -C/W Allopurinol total 200 mg daily, consider increasing the dose to 300 mg as an outpatient, not now. SUBJECTIVE INTERVAL HPI: Patient is slightly feeling better, he is able to move his left knee slightly more, still has pain though, synovial fluid culture is still negative so far. MEDICATIONS: Reviewed OBJECTIVE PHYSICAL EXAM:Body mass index is 36.97 kg/m?.BP 132/70 Pulse 107 Temp 37 ?C (98.6 ?F) (Oral) Resp 16 Ht 182.9 cm (6') Wt 123.7 kg (272 lb 9.6 oz) SpO2 95% BMI 36.97 kg/m? General - NAD. Cardiovascular - RRR no m/r/g. Lungs - Clear to auscultation, no use of accessory muscles, no crackles or wheezes. Abdomen - Normal bowel sounds, abdomen soft and nontender. Extremities - No cyanosis or clubbing Musculoskeletal - Left knee large warm effusion, with tenderness, no erythema, limited ROM on flexion and extension. Neurological - Alert and oriented x 3, CN 2-12 grossly intact. Sensation intact bilaterally. DATA: Diagnostic tests reviewed for today's visit: Most recent labs and imaging results. This note was partially created using voice recognition software and is inherently subject to errors including those of syntax and sound-alike substitutions which may escape proofreading. In such instances, original meaning may be extrapolated by contextual derivation. Plan of care discussed with: Provider, RN, Patient Radha Miller MD Rheumatology DATE: May 14, 2024 TIME: 6:57 AM Normal [facility] Comprehensive metabolic 2000 panelon 05-14-2024 Albumin [Mass/Vol] 3.2 g/dL Low 3.9-4.9 [facility] Comment on above: Order Comment: Santo malik Type: BLOOD SPECIMEN Order[facility] Address: [address] [place] [address] Performed By: #### 2 4323-8 #### [facility] CLIA [id number] [address] [place] [address] [place] ALP [Catalytic activity/Vol] 83 U/L Normal 38-113 [facility] Comment on above: Order Comment: Santo malik Type: BLOOD SPECIMEN Order[facility] Address: [address] [place] [address] Performed By: #### 2 4323-8 #### [facility] CLIA [id number] [address] [place] [address] [place] ALT [Catalytic activity/Vol] 13 U/L Normal 10-54 [facility] Comment on above: Order Comment: Speci men Type: BLOOD SPECIMEN [facility] Address: [address] [place] [address] Performed By: #### 2 4323-8 #### [facility] CLIA [id number] [address] [place] [address] [place] Anion gap [Moles/Vol] 12 mmol/L Normal 8-15 [facility] Comment on above: Order Comment: Speci men Type: BLOOD SPECIMEN [facility] Address: [address] [place] [address] Performed By: #### 2 4323-8 #### [facility] CLIA [id number] [address] [place] [address] [place] AST [Catalytic activity/Vol] 13 U/L Low 14-40 [facility] Comment on above: Order Comment: Speci men Type: BLOOD SPECIMEN [facility] Address: [address] [place] [address] Performed By: #### 2 4323-8 #### [facility] CLIA [id number] [address] [place] [address] [place] Bilirubin [Mass/Vol] 0.3 mg/dL Normal 0.2-1.3 [facility] Comment on above: Order Comment: Speci men Type: BLOOD SPECIMEN [facility] Address: [address] [place] [address] Performed By: #### 2 4323-8 #### [facility] CLIA [id number] [address] [place] [address] [place] Calcium [Mass/Vol] 8.7 mg/dL Normal 8.5-10.2 [facility] Comment on above: Order Comment: Speci men Type: BLOOD SPECIMEN [facility] Address: [address] [place] [address] Performed By: #### 2 4323-8 #### [facility] CLIA [id number] [place] [address] [place] Chloride [Moles/Vol] 95 mmol/L Low 98-107 [facility] Comment on above: Order Comment: Speci men Type: BLOOD SPECIMEN [facility] Address: [address] [place] [address] Performed By: #### 2 4323-8 #### [facility] CLIA [id number] [place] [address] [place] CO2 [Moles/Vol] 24 mmol/L Normal 22-30 [facility] Comment on above: Order Comment: Speci men Type: BLOOD SPECIMEN [facility] Address: [address] [place] [address] Performed By: #### 2 4323-8 #### [facility] CLIA [id number] [address] [place] [address] [place] Creatinine [Mass/Vol] 1.90 mg/dL High 0.73-1.22 [facility] Comment on above: Order Comment: Speci men Type: BLOOD SPECIMEN [facility] Address: [address] [place] [address] Performed By: #### 2 4323-8 #### [facility] CLIA [id number] [address] [place] [address] [place] Creatinine and Glomerular filtration rate.predicted panel (S/P/Bld) 40 mL/min/1.73m??? Low >=60 [facility] Comment on above: Order Comment: Speci men Type: BLOOD SPECIMEN [facility] Address: [address] [place] [address] Result Comment: Karissa mated Glomerular Filtration Rate (eGFR) is calculated using the 2020 CKD-EPI creatinine equation. This equation utilizes serum creatinine, sex, and age as parameters. The creatinine assay has traceable calibration to isotope dilution-mass spectrometry. Refer to KDIGO guidelines for clinical interpretation. In patients with unstable renal function, e.g. those with acute kidney injury, the eGFR may not accurately reflect actual GFR. Performed By: #### 2 4323-8 #### [facility] CLIA [id number] [address] [place] [address] [place] Glucose [Mass/Vol] 192 mg/dL High 74-99 [facility] Comment on above: Order Comment: Santo malik Type: BLOOD SPECIMEN Ordering Facility: [facility] Address: [address] [place] [address] Result Comment: The [place] Diabetes Association (ADA) provides guidance for cutoff values for fasting glucose and random glucose. The ADA defines fasting as no caloric intake for at least 8 hours. Fasting plasma glucose results between 100 to 125 mg/dL indicate increased risk for diabetes (prediabetes). Fasting plasma glucose results greater than or equal to 126 mg/dL meet the criteria for diagnosis of diabetes. In the absence of unequivocal hyperglycemia, results should be confirmed by repeat testing. In a patient with classic symptoms of hyperglycemia or hyperglycemic crisis, random plasma glucose results greater than or equal to 200 mg/dL meet the criteria for diagnosis of diabetes. Reference: Standards of Medical Care in Diabetes 2016, [place] [employer]. Diabetes Care. 2016.39(Suppl 1). Performed By: #### 2 4323-8 #### [facility] CLIA [id number] [address] [place] [address] [place] Potassium [Moles/Vol] 4.3 mmol/L Normal 3.7-5.1 [facility] Comment on above: Order Comment: Santo malik Type: BLOOD SPECIMEN [facility] Address: [address] [place] [address] Performed By: #### 2 4323-8 #### [facility] CLIA [id number] [address] [place] [address] [place] Protein [Mass/Vol] 6.9 g/dL Normal 6.3-8.0 [facility] Comment on above: Order Comment: Santo malik Type: BLOOD SPECIMEN [facility] Address: [address] [place] [address] Performed By: #### 2 4323-8 #### [facility] CLIA [id number] [address] [place] [address] [place] Sodium [Moles/Vol] 131 mmol/L Low 136-144 [facility] Comment on above: Order Comment: Speci men Type: BLOOD SPECIMEN Ordering Facility: [facility] Address: [address] [place] [address] Performed By: #### 2 4323-8 #### [facility] CLIA [id number] [place] [address] [place] Urea nitrogen [Mass/Vol] 35 mg/dL High 9-24 [facility] Comment on above: Order Comment: Speci men Type: BLOOD SPECIMEN [facility]ing Facility: [facility] Address: [address] [place] [address] Performed By: #### 2 4323-8 #### [facility] CLIA [id number] [place] [address] [place] Bacteria Fld Culton 05-13-20 24 Bacteria identified Cx Nom (Body fld) CULTURE, BODY FLD: No growth GRAM STAIN: No organisms seen Few Polymorphonuclear leukocytes Gram stain from primary specimen Normal [facility] Comment on above: Performed By: #### 6 11-4 ####[facility] [id number] [facility] [address] [place] CONSULTon 05-13-2024 CONSULT HNO ID: [id number] Author: ASHWINI OMER RN Service: ? Author Type: Registered Nurse Type: Consults Filed: 05/13/2024 14:35 Note Text: ANCILLARY WOUND CARE PROGRESS NOTE SERVICE DATE: 05/13/2024 SERVICE TIME: 1434 pm Wound care consulted for right great toe with necrotic injury. Podiatry and Ortho consulted for the patient. Consult wound care if additional wound care recommendations needed. SIGNATURE: Ashwini Omer, RN, MSN, CWOCN PATIENT NAME: Yamilka Sharma DATE: May 13, 2024 TIME: 2:[address] [facility] CONSULT HNO ID: [id number] Author: FERNANDO BENDER APRN.BOTTOM [employer]QUOR ATTENDANT Service: Orthopaedic Surgery Author Type: Nurse Specialist Type: Consults Filed: 05/13/2024 22:37 Note Text: ORTHOPAEDIC INITIAL CONSULT Patient Name: Yamilka Sharma Account #: Data Unavailable Admission Date: 05/12/2024 Date of Evaluation: 05/13/2024 Time of Evaluation: 11:42 AM Consultation requested by Dr. Sibley for an opinion regarding Mr Sharma. My final recommendations will be communicated back to the requesting physician by way of shared Medical record or letter to requesting physician via US mail. HISTORY OF PRESENT ILLNESS: This is a pleasant 58 year old male with a PMH of DM2, non-hodgkin lymphoma, paroxysmal afib on eliquis, CAD, obesity, HTN and gout, who presented yesterday to the [facility] with a chief complaint of fever and weakness and left knee pain. Pain continued to increase in the knee and he presented for assessment. He did have a fall on 05/11/2024. He was found with fever and tachycardia suspicious for Bacteremia and UTI and was transferred to for higher level of care.He has been evaluated by Rheumatology who have aspirated the knee earlier today. He is seen today on the [facility] with a chief complaint of left knee pain, swelling, warmth, and limited ROM. He complains of sharp pain about the anterior, lateral, and medial aspect of approximately 3 days duration. He complains that the pain is 10/10 with any movement or attempts to weight bear. He reports prior history of gout and knee pain as described in the HPI. We are asked to see him in consultation for possible septic arthritis. . IMPRESSION: left Knee pain/effusion-Hemarthros is Synovial panel not consistent with septic arthritis. Will follow cultures PLAN: 1. Admission status: Admitted to medicine. 2. Test(s)/Imaging: completed 3. Intervention: - Pavel - routine icing - Pavel for compression - elevate - TNC 24k and RBC 20K-hemarthrosis - Will follow peripherally for final culture results - D/W Dr Stanford 4. Disposition: Weight bearing status instructed to patient, No orthopaedic intervention necessary at this time, and Continue to follow as needed. PAST MEDICAL HISTORY Diagnosis Date Acute exacerbation of chronic obstructive airways disease (HCC) Rx for augmentin, symptomatic care as needed. Patient denies COPD, asthma, uses an inhaler PRN usually about once a year with hot weather Anemia Depression Diffuse large B cell lymphoma (HCC) 07/14/2019 Encounter for screening for malignant neoplasm of prostate Essential hypertension continue Lisinopril Hydronephrosis Hydronephrosis with ureteral stricture Hypomagnesemia 10/30/2019 Nausea and vomiting 01/09/2023 Obesity, Class II, BMI 35-39.9 12/15/2022 DEISI (obstructive sleep apnea) mild and no CPAP Paroxysmal atrial fibrillation (HCC) 01/10/2023 Prostatitis 01/09/2023 Sepsis due to gram-negative UTI (HCC) (HCC) 10/25/2019 Thrombocytopenia (HCC) Type 2 diabetes mellitus (HCC) continue current meds Ureteral obstruction, left Urinary tract infection Vitamin D deficiency 01/09/2023 PAST SURGICAL HISTORY Procedure Laterality Date APPENDECTOMY 1982 BONE MARRO ASPIRATE AND BIOPSY 07/20/2019 CYSTOSCOPY 2019 KNIFE,CARPAL TUNNEL, Bilateral Carpal Tunnel Surgery 06/10/2013 NEPHROSTOMY TUBE 06/2019 PAST SURGICAL HISTORY OF 2013 temporal arterial biopsy PAST SURGICAL HISTORY OF 2013 sinus scraping, deviated septum repair PAST SURGICAL HISTORY OF Right PURPLE POWER PORT RIGHT CHEST PAST SURGICAL HISTORY OF Right TESTICLE REMOVED PAST SURGICAL HISTORY OF 02/19/2021 ureter stent Current Facility-Administered Medications Medication Dose Route Frequency NaCl 0.9% iv flush bag 20 mL INTRAVENOUS PRN ondansetron 4 mg tab(s) (ZOFRAN) 4 mg ORAL q 6 H PRN Or ondansetron (PF) 4 mg injection (ZOFRAN) 4 mg INTRAVENOUS q 6 H PRN acetaminophen 650 mg tab(s) (TYLENOL) 650 mg ORAL q 6 H PRN sodium bicarbonate 1,300 mg tab(s) 1,300 mg ORAL BID gabapentin 600 mg tab(s) (NEURONTIN) 600 mg ORAL TID rosuvastatin 40 mg tab(s) (CRESTOR) 40 mg ORAL DAILY lisinopril 2.5 mg tab(s) 2.5 mg ORAL DAILY albuterol HFA 90 mcg/actuation 2 Puff (PROVENTIL HFA, VENTOLIN HFA) 2 Puff INHALATION q 6 H PRN metoprolol tartrate (short acting) 25 mg tab(s) (LOPRESSOR) 25 mg ORAL q 12 H dilTIAZem CD 240 mg cap(s) (CARDIZEM CD, CARTIA XT) 240 mg ORAL DAILY allopurinol 100 mg tab(s) (ZYLOPRIM) 100 mg ORAL BID DULoxetine 60 mg cap(s) (CYMBALTA) 60 mg ORAL BID dextrose 40 % 15 g 15 g ORAL PRN Or glucagon 1 mg injection 1 mg INTRAMUSCULAR PRN Or dextrose 10% iv bolus 12.5 g INTRAVENOUS PRN insulin lispro injection (rapid acting) (ADMElog) SUBCUTANEOUS w MEALS insulin glargine 18 Units pen (long acting) 18 Units SUBCUTANEOUS DAILY (8 AM) insulin lispro 6 Units injection (rapid acting) (ADMElog) 6 Units SUBCUTANEOUS w MEALS oxyCODONE IR 5 mg tab(s) ( (more content not included)... Normal [facility] CONSULT HNO ID: [id number] Author: RADHA MILLER MD Service: Rheumatology Author Type: Physician Type: Consults Filed: 05/16/2024 00:02 Note Text: RHEUMATOLOGY INITIAL CONSULT NOTE PATIENT NAME: Yamilka hSarma DATE of SERVICE: May 13, 2024 Primary Care Physician: Najma Bloom, ASSESSMENT AND PLAN 58 year old male with PMH including CKD, Hyperuricemia, DM type II, hy non-Hodgkin lymphoma currently in remission pretension, paroxysmal A-fib, CAD, obesity, hypertension, who presents to the ED for generalized weakness and fever, was found to have osteomyelitis of distal phalanx of right great toe, had left leg / knee pain, rheumatology consulted for aspirating left knee. -Vital signs showed fever with T 38.3. -Lab reviewed: Uric acid 7.4, was 11 a year ago, CRP 19.5 H, UA suggestive of UTI, no leucocytosis, Cr 2.12 H, sodium 130. -Left knee x ray: Normal. -Right foot x ray: Soft tissue swelling and wound of the distal medial first digit. Cortical irregularity of the underlying distal phalanx proximal medial aspect could be due to osteomyelitis. Possible subcutaneous gas at the lateral aspect of the distal first digit. Problem list: -Left knee large warm effusion, suggestive of inflammatory arthritis, likely gout more than pseudogout, septic arthritis is possible and should be ruled out. -Hyperuricemia, with CKD III, and now likely left knee inflammatory arthritis effusion, all raises suspicion for gout. -Osteomyelitis of distal phalanx of right great toe, and UTI, ID team following -Generalized weakness, due to current infections, and hyponatremia, ID and primary team following. Plan: -Aspirated 15 ML brown fluid from left knee today, sent it to lab for analysis and culture. -Avoid NSAIDs or colchicine in general due to CKD. -Consider starting prednisone if ID team is ok with since he has multiple infections currently. -If fluid is positive for infection then will need orthopedic consult. -C/W Allopurinol total 200 mg daily, consider increasing the dose to 300 mg as an outpatient, not now. SUBJECTIVE CHIEF COMPLAINT: Left knee pain HPI: This is a 58 year old male with PMH including CKD, Hyperuricemia, DM type II, hy non-Hodgkin lymphoma currently in remission pretension, paroxysmal A-fib, CAD, obesity, hypertension, who presents to the ED for generalized weakness and fever, was found to have osteomyelitis of distal phalanx of right great toe, had left leg / knee pain, rheumatology consulted for aspirating left knee. Patient started having left knee pain and swelling the day before coming to the hospital, he admits to feeling sick over the lidya 2 days, feeling tired, his whale left leg is hurting, more so over the knee joint area, with left knee swelling and pain, he has hard time moving his left knee, can't bare weight on it, no other significant joints pain, he has chronic right big toe ulcer and erythema, was seen by ID team, foot x ray is suspicious of osteomyelitis, was stared on abx. 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 In the ED patient was tachycardic with heart rate in 130s, pertinent positive labs included creatinine 2.1, no leukocytosis, normal lactate, UA was consistent with UTI, chest x-ray did not show any acute infection, patient was given vancomycin and Zosyn and sent to regular nursing floor for further management. Past Medical History: PAST MEDICAL HISTORY Diagnosis Date Acute exacerbation of chronic obstructive airways disease (HCC) Rx for augmentin, symptomatic care as needed. Patient denies COPD, asthma, uses an inhaler PRN usually about once a year with hot weather Anemia Depression Diffuse large B cell lymphoma (HCC) 07/14/2019 Encounter for screening for malignant neoplasm of prostate Essential hypertension continue Lisinopril Hydronephrosis Hydronephrosis with ureteral stricture Hypomagnesemia 10/30/2019 Nausea and vomiting 01/09/2023 Obesity, Class II, BMI 35-39.9 12/15/2022 DEISI (obstructive sleep apnea) mild and no CPAP Paroxysmal atrial fibrillation (HCC) 01/10/2023 Prostatitis 01/09/2023 Sepsis due to gram-negative UTI (HCC) (HCC) 10/25/2019 Thrombocytopenia (HCC) Type 2 diabetes mellitus (HCC) continue current meds Ureteral obstruction, left Urinary tract infection Vitamin D deficiency 01/09/2023 Past Surgical History: PAST SURGICAL HISTORY Procedure Laterality Date APPENDECTOMY 1982 BONE MARRO ASPIRATE AND BIOPSY 07/20/2019 CYSTOSCOPY 2019 KNIFE,CARPAL TUNNEL,[id number] Bilateral Carpal Tunnel Surgery 06/10/2013 NEPHROSTOMY TUBE 06/2019 PAST SURGICAL HISTORY OF 2013 temporal arterial biopsy PAST SURGICAL HISTORY OF 2013 sinus scraping, deviated septum repair PAST SURGICAL HISTORY OF Right PURPLE POWER PORT RIGHT CHEST PAST SURGICAL HISTORY OF Right TESTICLE REMOVED PAST SURGICAL HISTORY OF (more content not included)... [facility] CONSULT PROGon 05-13-2024 CONSULT PROG HNO ID: [id number] Author: DAWNA ADAM RPh Service: Pharmacy Author Type: Pharmacist Type: Consult Progress Note Filed: 05/13/2024 10:09 Note Text: PHARMACY VANCOMYCIN DOSING NOTE Patient Name: Yamilka Sharma Admission Date: 05/12/2024 Date of Consult: 05/13/2024 Time of Consult: 9:59 AM Indication: Bloodstream infection Goal Range: 15-20 mcg/mL RECOMMENDATIONS/PLAN: Pharmacy consulted for vancomycin dosing for Yamilka Sharma, a 58 year old male. 1. Patient is currently ordered Vancomycin 1.5 g IV q12h. Today is day 3 of therapy. 2. The most recent vancomycin level was 24.2 mcg/mL drawn at 0831 on 05/13/24. This is a ~12 hour level on the 3rd day of therapy. 3. Will decrease vancomycin to 1.75 g with a dosing interval of q24h. 4. The next vancomycin level will be ordered for 05/16/24 unless clinically indicated sooner. (Pharmacy will order) We will follow patient renal function, vancomycin levels and doses with you during the course of therapy. Additional recommendations will appear in follow up notes. If you have any questions, please contact Dawna Adam PharmD at [email or web address] [phone]. Age: [age] year old Allergies: ALLERGIES Allergen Reactions Aspartame Intolerance Severe headache Bactrim [Sulfametho* Hives, Intolerance Reaction: gas Sensitivity: Intolerance. Sensitivity: Intolerance Biaxin [Clarithromy* Unknown Indigestion/gas Influenza Vaccine T* Unknown Flu Monosodium Glutamat* Intolerance Severe headache Pantoprazole Diarrhea Sulfa (Sulfonamide * Rash, Hives Clindamycin Hcl Diarrhea, GI Upset, Vomiting Reaction: Nausea/vomiting/diarrhea Other Reaction: stomach cramps Sensitivity: Intolerance Last 3 Encounter Wt Readings: Date: Wt: 05/11/2024 123.7 kg (272 lb 9.6 oz) 05/11/2024 117.9 kg (260 lb) 04/19/2024 120.7 kg (266 lb) Last 1 Encounter Ht Readings: Date: Ht: 05/11/2024 182.9 cm (6') CrCl: Estimated Creatinine Clearance: 52.2 mL/min (A) (based on SCr of 2.07 mg/dL (H)). Temp (24hrs), Av.6 ?C (99.6 ?F), Min:37 ?C (98.6 ?F), Max:38.3 ?C (100.9 ?F) - Current Temp: 37.9 ?C (100.2 ?F) Labs BUN (mg/dL) Date Value 05/13/2024 39 (H) 05/12/2024 42 (H) 05/11/2024 48 (H) Creatinine (mg/dL) Date Value 05/13/2024 2.07 (H) 05/12/2024 2.12 (H) 05/11/2024 2.15 (H) WBC (k/uL) Date Value 05/12/2024 7.66 05/11/2024 9.56 04/18/2024 7.07 Vancomycin Levels: Vancomycin (ug/mL) Date/Time Value 05/13/2024 0831 24.2 (H) Dawna Adam, [facility] Normal [facility] Comprehensive metabolic 2000 panelon 05-13-2024 Albumin [Mass/Vol] 3.3 g/dL Low 3.9-4.9 [facility] Comment on above: Order Comment: Speci men Type: BLOOD SPECIMEN Ordering Facility[facility] Address: [address] [place] [address] [place], [place], [place] [facility] Performed By: #### 2 4323-8 #### [facility] CLIA [id number] [place] [address] [place] ALP [Catalytic activity/Vol] 74 U/L Normal 38-113 [facility] Comment on above: Order Comment: Speci men Type: BLOOD SPECIMEN Ordering Facility: [facility] Address: [address] [place] [address] Performed By: #### 2 4323-8 #### [facility] CLIA [id number] [address] [place] [address] [place] ALT [Catalytic activity/Vol] 12 U/L Normal 10-54 [facility] Comment on above: Order Comment: Speci men Type: BLOOD SPECIMEN Ordering [facility] Address: [address] [place] [address] Performed By: #### 2 4323-8 #### [facility] CLIA [id number] [address] [place] [address] [place] Anion gap [Moles/Vol] 13 mmol/L Normal 8-15 [facility] Comment on above: Order Comment: Speci men Type: BLOOD SPECIMEN [facility] Address: [address] [place] [address] Performed By: #### 2 4323-8 #### [facility] CLIA [id number] [address] [place] [address] [place] AST [Catalytic activity/Vol] 11 U/L Low 14-40 [facility] Comment on above: Order Comment: Speci men Type: BLOOD SPECIMEN [facility] Address: [address] [place] [address] Performed By: #### 2 4323-8 #### [facility] CLIA [id number] [address] [place] [address] [place] Bilirubin [Mass/Vol] 0.4 mg/dL Normal 0.2-1.3 [facility] Comment on above: Order Comment: Speci men Type: BLOOD SPECIMEN [facility] Address: [address] [place] [address] Performed By: #### 2 4323-8 #### [facility] CLIA [id number] [place] [address] [place] Calcium [Mass/Vol] 8.7 mg/dL Normal 8.5-10.2 [facility] Comment on above: Order Comment: Speci men Type: BLOOD SPECIMEN [facility] Address: [address] [place] [address] Performed By: #### 2 4323-8 #### [facility] CLIA [id number] [address] [place] [address] [place] Chloride [Moles/Vol] 95 mmol/L Low 98-107 [facility] Comment on above: Order Comment: Speci men Type: BLOOD SPECIMEN [facility] Address: [address] [place] [address] Performed By: #### 2 4323-8 #### [facility] CLIA [id number] [address] [place] [address] [place] CO2 [Moles/Vol] 22 mmol/L Normal 22-30 [facility] Comment on above: Order Comment: Speci men Type: BLOOD SPECIMEN [facility] Address: [address] [place] [address] Performed By: #### 2 4323-8 #### [facility] CLIA [id number] [address] [place] [address] [place] Creatinine [Mass/Vol] 2.07 mg/dL High 0.73-1.22 [facility] Comment on above: Order Comment: Speci men Type: BLOOD SPECIMEN [facility] Address: [address] [place] [address] Performed By: #### 2 4323-8 #### [facility] CLIA [id number] [address] [place] [address] [place] Creatinine and Glomerular filtration rate.predicted panel (S/P/Bld) 36 mL/min/1.73m??? Low >=60 [facility] Comment on above: Order Comment: Speci men Type: BLOOD SPECIMEN [facility] Address: [address] [place] [address] Result Comment: Karissa mated Glomerular Filtration Rate (eGFR) is calculated using the 2020 CKD-EPI creatinine equation. This equation utilizes serum creatinine, sex, and age as parameters. The creatinine assay has traceable calibration to isotope dilution-mass spectrometry. Refer to KDIGO guidelines for clinical interpretation. In patients with unstable renal function, e.g. those with acute kidney injury, the eGFR may not accurately reflect actual GFR. Performed By: #### 2 4323-8 #### [facility] CLIA [id number] [place] [address] [place] Glucose [Mass/Vol] 177 mg/dL High 74-99 [facility] Comment on above: Order Comment: Santo malik Type: BLOOD SPECIMEN [facility] Address: [address] [place] [address] Result Comment: The [place] Diabetes Association (ADA) provides guidance for cutoff values for fasting glucose and random glucose. The ADA defines fasting as no caloric intake for at least 8 hours. Fasting plasma glucose results between 100 to 125 mg/dL indicate increased risk for diabetes (prediabetes). Fasting plasma glucose results greater than or equal to 126 mg/dL meet the criteria for diagnosis of diabetes. In the absence of unequivocal hyperglycemia, results should be confirmed by repeat testing. In a patient with classic symptoms of hyperglycemia or hyperglycemic crisis, random plasma glucose results greater than or equal to 200 mg/dL meet the criteria for diagnosis of diabetes. Reference: Standards of Medical Care in Diabetes 2016, [place] [employer]. Diabetes Care. 2016.39(Suppl 1). Performed By: #### 2 4323-8 #### [facility] CLIA [id number] [place] [address] [place] Potassium [Moles/Vol] 4.6 mmol/L Normal 3.7-5.1 [facility] Comment on above: Order Comment: Santo malik Type: BLOOD SPECIMEN [facility] Address: [address] [place] [address] Performed By: #### 2 4323-8 #### [facility] CLIA [id number] [address] [place] [address] [place] Protein [Mass/Vol] 6.8 g/dL Normal 6.3-8.0 [facility] Comment on above: Order Comment: Speci men Type: BLOOD SPECIMEN [facility] Address: [address] [place] [address] Performed By: #### 2 4323-8 #### [facility] CLIA [id number] [address] [place] [address] [place] Sodium [Moles/Vol] 130 mmol/L Low 136-144 [facility] Comment on above: Order Comment: Speci men Type: BLOOD SPECIMEN [facility] Address: [address] [place] [address] Performed By: #### 2 4323-8 #### [facility] CLIA [id number] [address] [place] [address] [place] Urea nitrogen [Mass/Vol] 39 mg/dL High 9-24 [facility] Comment on above: Order Comment: Speci men Type: BLOOD SPECIMEN [facility] Address: [address] [place] [address] Performed By: #### 2 4323-8 #### [facility] CLIA [id number] [address] [place] [address] [place] SYNOVIAL FLUID MANUAL DIFFon 05-13-2024 DIF TTL, SYNOVIAL FLUID 100 cells counted Normal [facility] Comment on above: Order Comment: Speci men Type: BLOOD SPECIMEN [facility] Address: [address] [place] [address] Performed By: #### 2 4323-8 #### [facility] CLIA [id number] [address] [place] [address] [place] MONO%, SF 5 Normal [facility] Comment on above: Order Comment: Speci men Type: BLOOD SPECIMEN [facility] Address: [address] [place] [address] Performed By: #### 2 4323-8 #### [facility] CLIA [id number] [address] [place] [address] [place] NEUT% 95 High 0-<25 [facility] Comment on above: Order Comment: Speci men Type: BLOOD SPECIMEN [facility] Address: [address] [place] [address] Performed By: #### 2 4323-8 #### [facility] CLIA [id number] [address] [place] [address] OF JIN SYNOVIAL FLUID, CRYSTAL ID/P ATHOLOGIST INTERPRETATIONon 05-13-2024 CRYSTAL PRELIM, SF PRELIMINARY REPORT N o diagnostic crystals seen. SEE FINAL SF PATH REVIEW Normal [facility] Comment on above: Order Comment: Speci men Type: BLOOD SPECIMEN Ordering Facility: [facility] Address: [address] [place] [address] Performed By: #### 2 4323-8 #### [facility] CLIA [id number] [address] [place] [address] CRYSTAL REVIEW Reviewed by Benjamin Reyes MD, PhD [facility] Comment on above: Order Comment: Speci men Type: BLOOD SPECIMEN Ordering Facility: [facility] Address: [address] [place] [address] Performed By: #### 2 4323-8 #### [facility] CLIA [id number] [address] [place] [address] [place] Crystals LM Nom (Syn fld) None seen Normal None seen [facility] Comment on above: Order Comment: Speci men Type: BLOOD SPECIMEN Ordering Facility: [facility] Address: [address] [place] [address] Performed By: #### 2 4323-8 #### [facility] CLIA [id number] [address] [place] [address] OF JIN SYNOVIAL FLUID, ROUTINEon Clarity (Unsp spec) Cloudy Abnormal Clear [facility] Comment on above: Order Comment: Speci men Type: BLOOD SPECIMEN Ordering Facility: [facility] Address: [address] [place] [address] Performed By: #### 2 4323-8 #### [facility] CLIA [id number] [address] [place] [address] [place] Color (Syn fld) Moni Abnormal Yellow [facility] Comment on above: Order Comment: Speci men Type: BLOOD SPECIMEN Ordering Facility: [facility] Address: [address] [place] [address] Performed By: #### 2 4323-8 #### [facility] CLIA [id number] [address] [place] [address] RBC Manual cnt (Syn fld) [#/Vol] 18452 /uL High <2000 [facility] Comment on above: Order Comment: Speci men Type: BLOOD SPECIMEN Ordering Facility: [facility] Address: [address] [place] [address] Performed By: #### 2 4323-8 #### [facility] CLIA [id number] [address] [place] [address] STATES OF [place] Specimen source Nom (Unsp spec) Knee, Left Normal [facility] Comment on above: Order Comment: Speci men Type: BLOOD SPECIMEN Ordering Facility: [facility] Address: [address] [place] [address] Performed By: #### 2 4323-8 #### [facility] CLIA [id number] [address] [place] [address] WBC Manual cnt (Syn fld) [#/Vol] 14427 /uL High 0-200 [facility] Comment on above: Order Comment: Speci men Type: BLOOD SPECIMEN Ordering Facility[facility] Address: [address] [place] [address] Performed By: #### 2 4323-8 #### [facility] CLIA [id number] [address] [place] [address] STATES OF [place] Vancomycin Joppa SerPl-mCncon 05-13-2024 Vancomycin random [Mass/Vol] 24.2 ug/mL High 10.0-20.0 [facility] Comment on above: Order Comment: Speci men Type: BLOOD SPECIMEN Ordering Facility: [facility] Address: [address] [place] [address] Result Comment: Refe rence ranges and high/low indicator flags are provided as general guidelines only. The treating physician must determine appropriate target levels/dosing based on the specific clinical situation. Performed By: #### 4 091-5 #### [facility] CLIA [id number] STATES OF [facility] ALLIED HEALTHon 05-12-2024 ALLIED HEALTH HNO ID: [id number] Author: RON KLEIN RT(R) Service: ? Author Type: Technologist Type: Allied Health Filed: 05/12/2024 13:45 Note Text: Radiology Service Progress Note PATIENT NAME: Yamilka Sharma DATE OF SERVICE: May 12, 2024 TIME: 1:45 PM PATIENT IDENTITY VERIFICATION COMPLETED USING TWO (2) IDENTIFIERS: Name and Date of confirmed by patient verbally and Name and Date of confirmed by identification band. FALL SCREENING: Has the patient had 2 falls in the last year or 1 fall with injury or currently using an Ambulatory Assistive Device (Walker, Cane, Wheelchair, Crutches, etc.)? Inpatient: Screened on floor PATIENT GENDER DATA: Male PATIENT RELEVANT IMPLANT DATA REVIEWED: Not Applicable PATIENT PRESENTS WITH AN IMPLANTABLE OR ATTACHED SAIL CUTTER: No RADIOLOGY DEPARTMENT: General X-ray: Exam(s) Completed: Chest X-Ray PERIPHERAL IV DATA: Not applicable SIGNED BY: RT Dawn(R) May 12, 2024 1:45 PM Normal [facility] Bacteria Wnd Culton 05-12-20 24 Bacteria identified Cx Nom (Wound) ORGANISM ID: 1 Moderate Streptococcus dysgalactiae (Group C/G streptococcus) ORGANISM ID: 2 Rare skin carina GRAM STAIN: Many Gram positive cocci Rare Gram negative bacilli Many Polymorphonuclear leukocytes ORGANISM ID: 1 (STREPTOCOCCUS DYSGALACTIAE (GROUP C/G STREPTOCOCCUS)) ANTIBIOTIC INTERPRETATION NICKOLAS STATUS REFERENCE RANGE Penicillin G S <=0.03 F Susceptible <=0.125 , Nonsusceptible >.125 Ceftriaxone S <=0.12 F Susceptible <=0.5 , Nonsusceptible >.5 Erythromycin R >2 F Susceptible <=0.25 , Intermediate >.25 , Resistant >=1 Clindamycin R >1 F Susceptible <=0.25 , Intermediate >.25 , Resistant >.5 Vancomycin S <=0.50 F Susceptible <=1 , Nonsusceptible >1 Abnormal [facility] Comment on above: Performed By: #### 6 462-6 ####[facility] [id number] [place] [address] [place] Basic metabolic 2000 panelon 05-12-2024 Anion gap [Moles/Vol] 12 mmol/L Normal 8-15 [facility] Comment on above: Order Comment: Speci men Type: BLOOD SPECIMEN Ordering Facility[facility] Address: [address] [place] [address] Performed By: #### 2 4323-8 #### [facility] CLIA [id number] [address] [place] [address] [place] Calcium [Mass/Vol] 8.6 mg/dL Normal 8.5-10.2 [facility] Comment on above: Order Comment: Speci men Type: BLOOD SPECIMEN Ordering Facility: [facility] Address: [address] [place] [address] Performed By: #### 2 4323-8 #### [facility] CLIA [id number] [address] [place] [address] [place] Chloride [Moles/Vol] 95 mmol/L Low 98-107 [facility] Comment on above: Order Comment: Speci men Type: BLOOD SPECIMEN Ordering Facility: [facility] Address: [address] [place] [address] Performed By: #### 2 4323-8 #### [facility] CLIA [id number] [address] [place] [address] [place] CO2 [Moles/Vol] 23 mmol/L Normal 22-30 [facility] Comment on above: Order Comment: Santo malik Type: BLOOD SPECIMEN Ordering Facility[facility] Address: [address] [place] [address] Performed By: #### 2 4323-8 #### [facility] CLIA [id number] [place] [address] [place] Creatinine [Mass/Vol] 2.12 mg/dL High 0.73-1.22 [facility] Comment on above: Order Comment: Raghui men Type: BLOOD SPECIMEN Order[facility] Address: [address] [place] [address] Performed By: #### 2 4323-8 #### [facility] CLIA [id number] [address] [place] [address] [place] Creatinine and Glomerular filtration rate.predicted panel (S/P/Bld) 35 mL/min/1.73m??? Low >=60 [facility] Comment on above: Order Comment: Santo malik Type: BLOOD SPECIMEN Ordering Facility[facility] Address: [address] [place] [address] Result Comment: Karissa mated Glomerular Filtration Rate (eGFR) is calculated using the 2020 CKD-EPI creatinine equation. This equation utilizes serum creatinine, sex, and age as parameters. The creatinine assay has traceable calibration to isotope dilution-mass spectrometry. Refer to KDIGO guidelines for clinical interpretation. In patients with unstable renal function, e.g. those with acute kidney injury, the eGFR may not accurately reflect actual GFR. Performed By: #### 2 4323-8 #### [facility] CLIA [id number] [address] [place] [address] [place] Glucose [Mass/Vol] 235 mg/dL High 74-99 [facility] Comment on above: Order Comment: Santo king Type: BLOOD SPECIMEN Ordering Facility[facility] Address: [address] [place] [address] Result Comment: The [place] Diabetes Association (ADA) provides guidance for cutoff values for fasting glucose and random glucose. The ADA defines fasting as no caloric intake for at least 8 hours. Fasting plasma glucose results between 100 to 125 mg/dL indicate increased risk for diabetes (prediabetes). Fasting plasma glucose results greater than or equal to 126 mg/dL meet the criteria for diagnosis of diabetes. In the absence of unequivocal hyperglycemia, results should be confirmed by repeat testing. In a patient with classic symptoms of hyperglycemia or hyperglycemic crisis, random plasma glucose results greater than or equal to 200 mg/dL meet the criteria for diagnosis of diabetes. Reference: Standards of Medical Care in Diabetes 2016, [place] [employer] Association. Diabetes Care. 2016.39(Suppl 1). Performed By: #### 2 4323-8 #### [facility] CLIA [id number] [address] [place] [address] [place] Potassium [Moles/Vol] 4.2 mmol/L Normal 3.7-5.1 [facility] Comment on above: Order Comment: Santo malik Type: BLOOD SPECIMEN Order[facility] Address: [address] [place] [address] Performed By: #### 2 4323-8 #### [facility] CLIA [id number] [address] [place] [address] [place] Sodium [Moles/Vol] 130 mmol/L Low 136-144 [facility] Comment on above: Order Comment: Santo malik Type: BLOOD SPECIMEN Ordering [facility] Address: [address] [place] [address] Performed By: #### 2 4323-8 #### [facility] CLIA [id number] [address] [place] [address] [place] Urea nitrogen [Mass/Vol] 42 mg/dL High 9-24 [facility] Comment on above: Order Comment: Santo malik Type: BLOOD SPECIMEN Ordering Facility[facility] Address: [address] [place] [address] Performed By: #### 2 4323-8 #### [facility] CLIA [id number] [address] [place] [address] [place] CBC panel Auto (Bld)on 05-12 Erythrocyte distribution width (RBC) [Ratio] 14.8 % Normal 11.5-15.0 [facility] Comment on above: Order Comment: Speci men Type: BLOOD SPECIMEN Ordering Facility: [facility] Address: [address] [place] [address] Performed By: #### 2 4323-8 #### [facility] CLIA [id number] [address] [place] [address] [place] Hematocrit (Bld) [Volume fraction] 33.8 % Low 39.0-51.0 [facility] Comment on above: Order Comment: Speci men Type: BLOOD SPECIMEN Ordering Facility[facility] Address: [address] [place] [address] Performed By: #### 2 4323-8 #### [facility] CLIA [id number] [address] [place] [address] [place] Hemoglobin (Bld) [Mass/Vol] 11.2 g/dL Low 13.0-17.0 [facility] Comment on above: Order Comment: Speci men Type: BLOOD SPECIMEN Ordering [facility] Address: [address] [place] [address] Performed By: #### 2 4323-8 #### [facility] CLIA [id number] [address] [place] [address] OF JIN MCH (RBC) [Entitic mass] 26.7 pg Normal 26.0-34.0 [facility] Comment on above: Order Comment: Speci men Type: BLOOD SPECIMEN Order[facility] Address: [address] [place] [address] Performed By: #### 2 4323-8 #### [facility] CLIA [id number] [address] [place] [address] [place] MCHC (RBC) [Mass/Vol] 33.1 g/dL Normal 30.5-36.0 [facility] Comment on above: Order Comment: Speci men Type: BLOOD SPECIMEN Ordering [facility] Address: [address] [place] [address] Performed By: #### 2 4323-8 #### [facility] CLIA [id number] [address] [place] [address] [place] MCV (RBC) [Entitic vol] 80.5 fL Normal 80.0-100.0 [facility] Comment on above: Order Comment: Speci men Type: BLOOD SPECIMEN Ordering [facility] Address: [address] [place] [address] Performed By: #### 2 4323-8 #### [facility] CLIA [id number] [address] [place] [address] [place] Nucleated RBC (Bld) [#/Vol] 10*3/uL Normal <0.01 [facility] Comment on above: Order Comment: Speci men Type: BLOOD SPECIMEN Ordering [facility] Address: [address] [place] [address] Performed By: #### 2 4323-8 #### [facility] CLIA [id number] [address] [place] [address] [place] Platelet mean volume (Bld) [Entitic vol] 11.4 fL Normal 9.0-12.7 [facility] Comment on above: Order Comment: Speci men Type: BLOOD SPECIMEN Order[facility] Address: [address] [place] [address] Performed By: #### 2 4323-8 #### [facility] CLIA [id number] [address] [place] [address] [place] Platelets (Bld) [#/Vol] 123 10*3/uL Low 150-400 [facility] Comment on above: Order Comment: Speci men Type: BLOOD SPECIMEN Ordering Facility[facility] Address: [address] [place] [address] Performed By: #### 2 4323-8 #### [facility] CLIA [id number] [address] [place] [address] [place] RBC (Bld) [#/Vol] 4.20 10*6/uL Normal 4.20-6.00 [facility] Comment on above: Order Comment: Speci men Type: BLOOD SPECIMEN Ordering Facility[facility] Address: [address] [place] [address] Performed By: #### 2 4323-8 #### [facility] CLIA [id number] [address] [place] [address] [place] WBC (Bld) [#/Vol] 7.66 10*3/uL Normal 3.70-11.00 [facility] Comment on above: Order Comment: Speci men Type: BLOOD SPECIMEN Order[facility] Facility[facility] Address: [address] [place] [address] Performed By: #### 2 4323-8 #### [facility] CLIA [id number] [address] [place] [id number] [place] OF [place] CONSULTon 05-12-2024 CONSULT HNO ID: [id number] Author: Simin RAZO MD Service: Infectious Disease Author Type: Physician Type: Consults Filed: 05/12/2024 18:06 Note Text: BRIEF CONSULT NOTE SERVICE DATE: 05/12/2024 SERVICE TIME: 6:01 PM Patient seen. 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 Agree with MRI of the right great toe for further evaluation Agree with rheumatology to consider arthrocentesis of left knee for diagnosis SIGNATURE: Simin Razo MD PATIENT NAME: Yamilka Bernard Amarasimin DATE: May 12, 2024 TIME: 6:01 PM Normal [facility] CONSULT HNO ID: [id number] Author: Simin RAZO MD Service: Infectious Disease Author Type: Physician Type: Consults Filed: 05/16/2024 08:27 Note Text: - Consultation YAMILKA SHARMA : 1965 AGE: 58 SEX: M CSN: [id number] [facility]OS[facility]: Medical LOCATION: [facility] ATTENDING PHYSICIAN: Libia Sibley M.D. DATE OF SERVICE: 05/12/2024 TIME OF SERVICE: 06:00 PM CONSULTING PHYSICIAN: Carl Razo M.D. REQUESTING PHYSICIAN: Dr. Sbiley. HISTORY OF PRESENT ILLNESS: This is a 58-year-old male with the prior history of diabetes, history of chronic kidney disease, history of ureteral stricture and has had stent in the past, history of neuropathy, and a remote history of diffuse large B-cell lymphoma for which he has been treated and apparently in remission, still has a MediPort in place. Apparently, he has been doing well until 05/09, went to work and did not feel well and came home. Apparently, the next day tried to go to work, but did not feel well. When he came back home, started to notice left knee pain and also fell backwards while trying to pickup some pills, but denies any history of having injured his left knee. He continued to feel weak and developed chills and therefore decided to come to the emergency room yesterday. He was evaluated in the emergency room and has been admitted and apparently no one opened the socks until he came up to the floor and when our resident examined the patient, he noticed his right great toe to be swollen, erythematous, and had an open wound draining purulent discharge. He was started on intravenous vancomycin and Zosyn. The patient's main complaint is significant left knee pain so much so that he does not want me to move his knee because it is very painful. He states that he had noticed a scab came off the right great toe, but did not notice any drainage until his socks were pulled out this morning for exam. PAST MEDICAL HISTORY: As noted above. He has history of diabetes, history of diffuse large B-cell lymphoma, history of paroxysmal atrial fib, prior history of ureteral stricture and enlargement of the prostate, history of CKD. SOCIAL HISTORY: He is a former smoker. FAMILY HISTORY: No other significant sick contacts. REVIEW OF SYSTEMS: Essentially as noted above. LABORATORY DATA: Since admission has shown interestingly no significant leukocytosis. His hemoglobin is 11.2 and hematocrit is 33.8. He has chronic thrombocytopenia. His current platelet count is 123K. Chemistry on admission revealed BUN 48 and creatinine of 2.1. This morning, his BUN is 42 and creatinine of 2.1. I have reviewed the microbiology reports; so far, 2 sets of blood cultures obtained on 05/11 in the evening have not shown any growth. A wound culture has been obtained from the right great toe. An [employer] WORK[employer] swab obtained in the emergency room last night turns out to be negative for COVID-19, influenza A/B, and RSV. X-ray of his left knee did not show any significant effusion. There is no evidence of chondrocalcinosis. Chest x-ray normal. X-ray of the foot reveals some questionable irregularity of the distal phalanx. PHYSICAL EXAMINATION: Vital Signs: Reveals the patient was febrile; early this morning, temperature went up to 38.9. His current vital signs revealed temp of 37.3, blood pressure 111/63. He is on room air, saturating well. He is tachycardic. General: He is a very large man with a BMI of 36.9. Does not appear to be in any acute distress. Heart: Reveals S1 and S2 to be normal. Distant heart sounds. Lungs: Normal breath sounds. Abdomen: Soft and nontender. Extremities: Examination of the left knee reveals minimal effusion of the left knee. I have not done range of motion as he requests not to move his knee as he has a significant pain. There is no erythema over the left knee. He has some chronic venous stasis changes bilaterally, both lower legs. His left foot appears to be dry and has evidence of significant onychomycosis. Right foot reveals significant erythema and tenderness of the dorsum of the foot particularly at the bases of all the digits. There is tenderness around the right great toe and he has very dry nail bed. He has an open wound on the plantar aspect of the distal toe, clearly draining very foul smelling purulent drainage. IMPRESSION: This is a 58-year-old male with a history of diabetes, remote history of diffuse large B-cell lymphoma, chronic kidney disease, peripheral neuropathy, presents to the emergency room with acute pain in his left knee joint. He was admitted with diagnosis of possible sepsis and has been started on intravenous Zosyn and vancomycin. Interestingly, examination of the right great toe after admission has revealed significant infection of the right great toe with open wound draining purulent drainage, he has significant cellulitis of the right foot. I am concerned about his lef (more content not included)... Normal [facility] CONSULT PROGon 05-12-2024 CONSULT PROG HNO ID: [id number] Author: DAWNA ADAM [facility] Service: Pharmacy Author Type: Pharmacist Type: Consult Progress Note Filed: 05/12/2024 08:35 Note Text: PHARMACY VANCOMYCIN DOSING NOTE Patient Name: Yamilka Sharma Admission Date: 05/12/2024 Date of Consult: 05/12/2024 Time of Consult: 8:32 AM Indication: Bloodstream infection Goal Range: 15-20 mcg/mL RECOMMENDATIONS/PLAN: Pharmacy consulted for vancomycin dosing for Yamilka Sharma, a 58 year old male. 1. Patient is currently ordered Vancomycin 1.75 g IV q12h. Today is day 2 of therapy. Patient received Vancomycin 1.75 g IV x 1 dose on 05/11/24 @ 2100 at OSH 2. No vancomycin level has been drawn for this dosing regimen. 3. Based on patient age, weight and current renal function, will decrease vancomycin to 1.5 g with a dosing interval of q12h. 4. Based on patient weight and renal function, the next vancomycin level will be ordered for 05/13/24 unless clinically indicated sooner. (Pharmacy will order) We will follow patient renal function, vancomycin levels and doses with you during the course of therapy. Additional recommendations will appear in follow up notes. If you have any questions, please contact Dawna Adam PharmD at mobile [phone]. Age: [age] year old Allergies: ALLERGIES Allergen Reactions Aspartame Intolerance Severe headache Bactrim [Sulfametho* Hives, Intolerance Reaction: gas Sensitivity: Intolerance. Sensitivity: Intolerance Biaxin [Clarithromy* Unknown Indigestion/gas Influenza Vaccine T* Unknown Flu Monosodium Glutamat* Intolerance Severe headache Pantoprazole Diarrhea Sulfa (Sulfonamide * Rash, Hives Clindamycin Hcl Diarrhea, GI Upset, Vomiting Reaction: Nausea/vomiting/diarrhea Other Reaction: stomach cramps Sensitivity: Intolerance Last 3 Encounter Wt Readings: Date: Wt: 05/11/2024 123.7 kg (272 lb 9.6 oz) 05/11/2024 117.9 kg (260 lb) 04/19/2024 120.7 kg (266 lb) Last 1 Encounter Ht Readings: Date: Ht: 05/11/2024 182.9 cm (6') CrCl: Estimated Creatinine Clearance: 50.2 mL/min (A) (based on SCr of 2.15 mg/dL (H)). Temp (24hrs), Av.9 ?C (102 ?F), Min:38.9 ?C (102 ?F), Max:38.9 ?C (102 ?F) - Current Temp: (!) 38.9 ?C (102 ?F) Labs BUN (mg/dL) Date Value 05/11/2024 48 (H) 04/18/2024 54 (H) 03/04/2024 36 (H) Creatinine (mg/dL) Date Value 05/11/2024 2.15 (H) 04/18/2024 2.35 (H) 03/04/2024 2.24 (H) WBC (k/uL) Date Value 05/11/2024 9.56 04/18/2024 7.07 03/04/2024 6.11 Vancomycin Levels: No results found for: ALEKSANDR Adam, [facility] Normal [facility] CRP SerPl-mCncon 05-12-2024 CRP [Mass/Vol] 19.5 mg/dL High <0.9 [facility] Comment on above: Order Comment: Speci men Type: BLOOD SPECIMEN [facility] Address: [address] [place] [address] Performed By: #### 4 091-5 #### [facility] CLIA [id number] [address] [place] [address] [place] HISTORY PHYSICALon HISTORY PHYSICAL HNO ID: [id number] Author: PEYMAN CLIFFORD MD Service: Hospital Medicine Author Type: Physician Type: H&P Filed: 05/12/2024 07:25 Note Text: HOSPITAL MEDICINE HISTORY AND PHYSICAL EXAM PATIENT NAME: Yamilka Sharma SERVICE DATE: 05/12/2024 SERVICE TIME: 5:53 AM Primary Care Physician: Najma Bloom DO [employer] [id number] ASSESSMENT AND PLAN This is a 58 year old male with past medical history of DM type II, hy non-Hodgkin lymphoma currently in remission pretension, paroxysmal A-fib, CAD, obesity, hypertension, who presented to the outside ED with generalized weakness and fever. Sepsis: Patient with fever and tachycardia. High suspicion of bacteremia as patient has Mediport UA seems to be consistent with UTI, Plan Patient started on vancomycin and Zosyn by the ED, will continue Follow-up on urine and blood cultures. Sepsis lactate was normal Follow-up on procalcitonin level Continue with gentle IV fluids Hold Lasix Follow-up on x-ray knee, patient will need ultrasound of the need to evaluate for septic arthritis. Type II DM-patient is on multiple oral hypoglycemic drugs at home-Januvia, metformin, glipizide, semaglutide, Farxiga hold oral drugs. Start patient on sliding scale and hypoglycemia protocol. Paroxysmal A-fib: Patient was tachycardic in the ER, EKG shows normal sinus rhythm, tachycardia. Monitor on telemetry - Continue with home dose of metoprolol and Cardizem. -Continue with Eliquis for anticoagulation. CKD stage EHT-RF-gybrstro with bicarb tabs 2 times daily, creatinine around baseline Mild hyponatremia-continue to monitor Active Hospital Problems Diagnosis Sepsis (HCC) Obesity, Class II, BMI 35-39.9 Paroxysmal atrial fibrillation (HCC) Acute cystitis with hematuria Coronary artery disease involving [place] coronary artery of [place] heart without angina pectoris Hypertension, essential Type 2 diabetes mellitus with neurologic complication, without long-term current use of insulin (HCC) SUBJECTIVE CHIEF COMPLAINT: Generalized weakness HPI: This is a 58 year old male with past medical history of DM type II, pretension, paroxysmal A-fib, CAD, obesity, hypertension, who presented to the outside ED with generalized weakness and fever. Patient started feeling sick about 2 days ago, yesterday he felt really weak and started having fever. He also reports pain in his left leg and especially left knee. He is unable to put weight on his left leg. Reports high-grade fever at home along with chills, denies any dysuria hematuria or polyuria. No abdominal pain, or diarrhea but had episodes of vomiting at home. Denies any cough, phlegm, chest pain. In the ED patient was tachycardic with heart rate in 130s, pertinent positive labs included creatinine 2.1, no leukocytosis, normal lactate, UA was consistent with UTI, chest x-ray did not show any acute infection, patient was given vancomycin and Zosyn and sent to regular nursing floor for further management. PAST MEDICAL HISTORY: PAST MEDICAL HISTORY Diagnosis Date Acute exacerbation of chronic obstructive airways disease (HCC) Rx for augmentin, symptomatic care as needed. Patient denies COPD, asthma, uses an inhaler PRN usually about once a year with hot weather Anemia Depression Diffuse large B cell lymphoma (HCC) 07/14/2019 Encounter for screening for malignant neoplasm of prostate Essential hypertension continue Lisinopril Hydronephrosis Hydronephrosis with ureteral stricture Hypomagnesemia 10/30/2019 Nausea and vomiting 01/09/2023 Obesity, Class II, BMI 35-39.9 12/15/2022 DEISI (obstructive sleep apnea) mild and no CPAP Paroxysmal atrial fibrillation (HCC) 01/10/2023 Prostatitis 01/09/2023 Sepsis due to gram-negative UTI (HCC) (HCC) 10/25/2019 Thrombocytopenia (HCC) Type 2 diabetes mellitus (HCC) continue current meds Ureteral obstruction, left Urinary tract infection Vitamin D deficiency 01/09/2023 PAST SURGICAL HISTORY: PAST SURGICAL HISTORY Procedure Laterality Date APPENDECTOMY 1982 BONE MARRO ASPIRATE AND BIOPSY 07/20/2019 CYSTOSCOPY 2019 KNIFE,CARPAL TUNNEL,[id number] Bilateral Carpal Tunnel Surgery 06/10/2013 NEPHROSTOMY TUBE 06/2019 PAST SURGICAL HISTORY OF 2013 temporal arterial biopsy PAST SURGICAL HISTORY OF 2013 sinus scraping, deviated septum repair PAST SURGICAL HISTORY OF Right PURPLE POWER PORT RIGHT CHEST PAST SURGICAL HISTORY OF Right TESTICLE REMOVED PAST SURGICAL HISTORY OF 02/19/2021 ureter stent FAMILY HISTORY: FAMILY HISTORY Problem Relation Age of Onset other (Other inflammatory connective disorder) Mother Scleroderma other (Respiratory disorder) Mother other (Rheumatologic disorder) Mother other (Systemic lupus) Mother Heart Father Diabetes Father Diabetes Brother Diabetes Brother Cancer No Family History SOCIAL HISTORY: Social History Tobacco Use Smoking statu (more content not included)... Normal [facility] HbA1c (Bld)on 05-12-2024 Average glucose Estimated from glycated hemoglobin (Bld) [Mass/Vol] 226 mg/dL Normal [facility] Comment on above: Order Comment: Speci men Type: BLOOD SPECIMEN Ordering Facility: [facility] Address: [address] [place] [address] Result Comment: eAG: (Estimated average glucose) is a calculated value from HgbA1c and is telecommunications sales representative of the average blood glucose level in the last 2-3 month period. Performed By: #### 2 4323-8 #### [facility] CLIA [id number] [address] [place] [address] [place] HbA1c (Bld) [Mass fraction] 9.5 % High 4.3-5.6 [facility] Comment on above: Order Comment: Santo malik Type: BLOOD SPECIMEN Ordering Facility: [facility] Address: [address] [place] [address] Result Comment: [facility] Diabetes Association guidelines indicate that patients with HgbA1c in the range 5.7-6.4% are at increased risk for development of diabetes, and intervention by lifestyle modification may be beneficial. HgbA1c greater or equal to 6.5% is considered diagnostic of diabetes. Performed By: #### 2 4323-8 #### [facility] CLIA [id number] [address] [place] [address] [place] Procalcitonin SerPl-mCncon 0 05-12-2024 Procalcitonin [Mass/Vol] 2.23 ng/mL High <0.09 [facility] Comment on above: Order Comment: Santo malik Type: BLOOD SPECIMEN Ordering Facility: [facility] Address: [address] [place] [address] Result Comment: For a guided interpretation of test results, please visit the Change in Procalcitonin Calculator, [email or web address]. Performed By: #### 2 4323-8 #### [facility] CLIA [id number] [address] [place] [address] [place] Urate SerPl-mCncon Urate [Mass/Vol] 7.4 mg/dL Normal 4.0-8.1 [facility] Comment on above: Order Comment: Santo malik Type: BLOOD SPECIMEN Ordering Facility: [facility] Address: [address] [place] [address] Performed By: #### 4 091-5 #### [facility] CLIA [id number] [address] [place] [address] [place] XR FOOT 3V AP/LAT/OBL RTon 0 05-12-2024 XR FOOT 3V AP/LAT/OBL RT * * *Final Report* * * DATE OF EXAM: May 12 2024 1:45PM [id number] - XR FOOT 3V AP/LAT/OBL RT / PROCEDURE REASON: Foot swelling, diabetic, osteomyelitis suspected * * * * Physician Interpretation * * * * EXAMINATION: XR FOOT 3V AP/LAT/OBL RT CLINICAL HISTORY: Foot swelling, diabetic, osteomyelitis suspected Comparison: Right foot x-ray 12/03/2016 RESULT: Bones: No acute fracture, lytic or blastic lesion. No malalignment. Soft tissues: Soft tissue swelling of the forefoot, predominantly first digit. IMPRESSION: Soft tissue swelling and wound of the distal medial first digit. Cortical irregularity of the underlying distal phalanx proximal medial aspect could be due to osteomyelitis. Possible subcutaneous gas at the lateral aspect of the distal first digit. Consider further evaluation with MRI for osteomyelitis. Grinder: JOSÉ MANUEL Transcribe Date/Time: May 12 2024 2:55P Dictated by : JSOE SMITH MD This examination was interpreted and the report reviewed and electronically signed by: JOSE SMITH MD on May 12 2024 3:00PM EST [id number] [facility] 05-11-[address] [facility] Telephone ([facility]) -------- YAMILKA SHARMA ([id number]) 1965 M Date Time Provider Department 05/11/24 DAYAMI MOORE [facility] During your visit today, we recorded the following information about you: Dayami Moore MD 05/11/2024 10:12 PM Signed A 58 y/o male, PMHx pAF (on rivaroxaban), CAD, CKD, HTN, and diabetes. Presented with fever and generalized weakness. Had a mechanical fall 1 day prior with resultant left knee pain. Febrile and tachycardic, abnormal UA. Cardiology cleared him for regular nursing floor. Allergies As of Date: 05/11/2024 Noted Allergy Reaction ASPARTAME 06/05/2020 5 - Intolerance Comments: Severe headache BACTRIM (SULFAMETHOXAZOLE-TRIMET H*07/18/2016 4 - Hives 5 - Intolerance Comments: Reaction: gas Sensitivity: Intolerance. Sensitivity: Intolerance BIAXIN (CLARITHROMYCIN) 07/18/2016 16 - Unknown Comments: Indigestion/gas INFLUENZA VACCINE TRI-SP 09-10 10/29/2018 16 - Unknown Comments: Flu MONOSODIUM GLUTAMATE (MSG) 06/05/2020 5 - Intolerance Comments: Severe headache PANTOPRAZOLE 02/01/2021 6 - Diarrhea SULFA (SULFONAMIDE ANTIBIOTICS) 07/18/2016 2 - Rash 4 - Hives CLINDAMYCIN HCL 07/18/2016 6 - Diarrhea 8 - GI Upset 11 - Vomiting Comments: Reaction: Nausea/vomiting/diarrhea Other Reaction: stomach cramps Sensitivity: Intolerance Date Reviewed: 05/11/2024 Reviewed by: Gloria Sahu RN - Fully Assessed Reason for Visit: Hospital To Hospital [[id number]] Prescriptions as of 05/11/2024 - FARXIGA 10 mg tablet TAKE 1 TABLET DAILY WITH BREAKFAST - calcitriol (ROCALTROL) 0.25 mcg capsule Take 1 capsule by mouth every Thursday, Thursday, and Thursday. - b complex, c, folic acid 1 mg renal vitamins (NEPHROCAPS) 1 mg capsule Take 1 capsule by mouth once daily. - DULoxetine (CYMBALTA) 60 mg capsule Take 1 capsule by mouth two times a day. - rosuvastatin (CRESTOR) 40 mg tablet take 1 tablet daily - glimepiride (AMARYL) 4 mg tablet TAKE 1 TABLET TWICE A DAY WITH MEALS - metFORMIN (GLUCOPHAGE) 500 mg tablet TAKE 1 TABLET DAILY WITH BREAKFAST FOR 14 DAYS THEN 1 TABLET TWICE A DAY WITH MEALS THEREAFTER - gabapentin (NEURONTIN) 600 mg tablet Take 1 tablet by mouth three times a day for 90 days. - lidocaine-prilocaine (EMLA) 2.5-2.5 % cream APPLY TO AFFECTED AREA NEEDED PRIOR TO CHEMOTHERAPY - semaglutide (OZEMPIC) 1 mg/dose (4 mg/3 mL) pen Inject 1 mg subcutaneously one time a week. - lisinopril 2.5 mg tablet Take 1 tablet by mouth once daily. - blood sugar diagnostic ([employer] VERIO TEST STRIPS) test strip 1 Strip two times a day. Use with blood glucose test two times a day. Insulin Dep? No - dilTIAZem CD (CARDIZEM CD, CARTIA XT) 240 mg 24 hr capsule Take 1 capsule by mouth once daily. - metoprolol tartrate, short acting, (LOPRESSOR) 25 mg tablet Take 1 tablet by mouth every 12 hours. - SITagliptin phosphate (JANUVIA) 100 mg tablet Take 1 tablet by mouth once daily. - furosemide (LASIX) 40 mg tablet Take 1 tablet by mouth two times a day. - ergocalciferol 50,000 unit capsule (VITAMIN D2, DRISDOL) TAKE 1 CAPSULE ONCE A WEEK - apixaban (ELIQUIS) 5 mg tab(s) Take 1 tablet by mouth two times a day. - sodium bicarbonate 650 mg tablet TAKE 2 TABLETS TWICE A DAY - allopurinol (ZYLOPRIM) 100 mg tablet Take 1 tablet by mouth twice daily. - potassium chloride (K-TAB) 10 mEq tablet Take 1 tablet by mouth once daily. - ondansetron (ZOFRAN) 4 mg tablet Take 1 tablet by mouth every 8 hours as needed for nausea/vomiting. - Blood-Glucose Meter 1 Each three times daily. Please match the test strips and lancets - sildenafil (REVATIO) 20 mg tablet Take 3-5 tablets by mouth once daily as needed. - albuterol HFA (PROVENTIL HFA, VENTOLIN HFA) 90 mcg/actuation inhaler USE 2 INHALATIONS INSTRUCTED EVERY 4 HOURS NEEDED FOR WHEEZING/SHORTNESS OF BREATH Facility-Administered Medications as of 05/11/2024 - NaCl 0.9% iv infusion - NaCl 0.9% iv flush bag - piperacillin-tazobactam iv piggyback 3.375 g in dextrose (iso-osmotic) 50 mL (ZOSYN) - vancomycin 1.75 g in D5W 500 mL (VANCOCIN) - vancomycin dosing and monitoring per pharmacy - metoprolol 5 mg injection (LOPRESSOR) Problem List As Of Date 05/11/2024 Noted Resolved Pain in right foot [M79.671] 12/11/2016 12/11/2016 Type 2 diabetes mellitus with neurologic compli*07/21/2017 Onychomycosis [B35.1] 07/21/2017 05/22/2021 Hypertension, essential [I10] 11/23/2017 Retroperitoneal mass [R19.00] 07/05/2019 Diffuse large B cell lymphoma (HCC) [C83.30] 07/14/2019 Neutropenic sepsis (HCC) [A41.9, D70.9] 09/13/2019 09/16/2019 Nephrostomy status (HCC) [Z93.6] 09/13/2019 05/22/2021 Sepsis due to gram-negative UTI (HCC) [A41.50, *10/25/2019 10/26/2019 Elevated lactic acid level [R79.89] 10/26/2019 10/26/2019 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 Normal [facility] CBC W Auto Differential pane l (Bld)on 04-18-2024 Basophils (Bld) [#/Vol] 0.07 10*3/uL [facility] Basophils/100 WBC (Bld) 1.0 % [facility] Differential cell count method Nom (Bld) Auto [facility] Eosinophils (Bld) [#/Vol] 0.30 10*3/uL [facility] Eosinophils/100 WBC (Bld) 4.2 % [facility] Erythrocyte distribution width (RBC) [Ratio] 14.6 % 11.5 - 15.0 % [facility] Hematocrit (Bld) [Volume fraction] 37.1 % Low 39.0 - 51.0 % [facility] Hemoglobin (Bld) [Mass/Vol] 12.1 g/dL Low 13.0 - 17.0 g/dL [facility] Immature granulocytes (Bld) [#/Vol] 0.07 10*3/uL [facility] Immature granulocytes/100 WBC (Bld) 1.0 % [facility] Interpretation and review of laboratory results Abnormal [facility] Lymphocytes (Bld) [#/Vol] 1.20 10*3/uL [facility] Lymphocytes/100 WBC (Bld) 17.0 % [facility] MCH (RBC) [Entitic mass] 27.3 pg 26.0 - 34.0 pg [facility] MCHC (RBC) [Mass/Vol] 32.6 g/dL 30.5 - 36.0 g/dL [facility] MCV (RBC) [Entitic vol] 83.6 fL 80.0 - 100.0 fL [facility] Monocytes (Bld) [#/Vol] 0.49 10*3/uL NINF [facility] Monocytes/100 WBC (Bld) 6.9 % [facility] Neutrophils (Bld) [#/Vol] 4.94 10*3/uL [facility] Neutrophils/100 WBC (Bld) 69.9 % [facility] Nucleated RBC (Bld) [#/Vol] NINF [facility] Nucleated RBC/100 WBC (Bld) [Ratio] 0.0 % /100 WBC [facility] Platelet mean volume (Bld) [Entitic vol] 10.9 fL 9.0 - 12.7 fL [facility] Platelets (Bld) [#/Vol] 139 10*3/uL Low [facility] RBC (Bld) [#/Vol] 4.44 10*6/uL 4.20 - 6.0 0 m/uL [facility] WBC (Bld) [#/Vol] 7.07 10*3/uL [facility] Comprehensive metabolic 2000 panelOrdered By: Flora Toussaint on 04-18-2024 Albumin [Mass/Vol] 3.9 g/dL 3.9 - 4.9 g/dL [facility] ALP [Catalytic activity/Vol] 127 U/L High 38 - 113 U/L [facility] ALT [Catalytic activity/Vol] 9 U/L Low 10 - 54 U/L [facility] Anion gap [Moles/Vol] 9 mmol/L 8 - 15 mmol/L [facility] AST [Catalytic activity/Vol] 9 U/L Low 14 - 40 U/L [facility] Bilirubin [Mass/Vol] mg/dL Low 0.2 - 1 .3 mg/dL [facility] Calcium [Mass/Vol] 9.2 mg/dL 8.5 - 10. 2 mg/dL [facility] Chloride [Moles/Vol] 100 mmol/L 98 - 10 7 mmol/L [facility] CO2 [Moles/Vol] 24 mmol/L 22 - 30 mmol/L [facility] Creatinine [Mass/Vol] 2.35 mg/dL High 0.73 - 1.22 mg/dL [facility] GFR/1.73 sq M.predicted among non-blacks MDRD (S/P/Bld) [Vol rate/Area] 31 mL/min/{1.73_m2} Low - PINF [facility] Comment on above: Estimated Glomerular Filtration Rate (eGFR) is calculated using the 2020 CKD-EPI creatinine equation. This equation utilizes serum creatinine, sex, and age as parameters. The creatinine assay has traceable calibration to isotope dilution-mass spectrometry. Refer to KDIGO guidelines for clinical interpretation. In patients with unstable renal function, e.g. those with acute kidney injury, the eGFR may not accurately reflect actual GFR. Glucose [Mass/Vol] 337 mg/dL High 74 - 99 mg/dL [facility] Comment on above: The [place] Diabete s Association (ADA) provides guidance for cutoff values for fasting glucose and random glucose. The ADA defines fasting as no caloric intake for at least 8 hours. Fasting plasma glucose results between 100 to 125 mg/dL indicate increased risk for diabetes (prediabetes). Fasting plasma glucose results greater than or equal to 126 mg/dL meet the criteria for diagnosis of diabetes. In the absence of unequivocal hyperglycemia, results should be confirmed by repeat testing. In a patient with classic symptoms of hyperglycemia or hyperglycemic crisis, random plasma glucose results greater than or equal to 200 mg/dL meet the criteria for diagnosis of diabetes. Reference: Standards of Medical Care in Diabetes 2016, [place] Diabetes Association. Diabetes Care. 2016.39(Suppl 1). Interpretation and review of laboratory results Abnormal [facility] Potassium [Moles/Vol] 4.3 mmol/L 3.7 - 5.1 mmol/L [facility] Protein [Mass/Vol] 6.8 g/dL 6.3 - 8.0 g/dL [facility] Sodium [Moles/Vol] 133 mmol/L Low 136 - 144 mmol/L [facility] Urea nitrogen [Mass/Vol] 54 mg/dL High 9 - 24 mg/dL [facility] PHOSPHORUS INORGANICon 04-18 Phosphate [Mass/Vol] 3.4 mg/dL 2.7 - 4 .8 mg/dL [facility] Phosphate [Mass/Vol]on 04-18 Interpretation and review of laboratory results Normal [facility] Urinalysis complete panel (U )on 04-18-2024 Bacteria LM.HPF (Urine sed) [#/Area] Negative Negative /HPF [facility] Bilirubin Ql (U) Negative Negative [facility] Clarity (Unsp spec) Cloudy Abnormal Clear [facility] Color (U) Yellow Yellow [facility] Epithelial cells LM.HPF (Urine sed) [#/Area] None Seen /HPF [facility] Glucose Test strip (U) [Mass/Vol] 3+ Abnormal Negative [facility] Hemoglobin Ql (U) 1+ Abnormal Negative [facility] Hyaline casts (Urine sed) [#/Area] 0 /[LPF] 0 /LPF [facility] Interpretation and review of laboratory results Abnormal [facility] Ketones Ql (U) Negative Negative [facility] Leukocyte esterase Test strip Ql (U) 2+ Abnormal Negative [facility] Nitrite Ql (U) Negative Negative [facility] pH (U) 6.0 [pH] NINF - 8.5 [facility] Protein (U) [Mass/Vol] Trace Abnormal Negative [facility] RBC LM.HPF (Urine sed) [#/Area] 0-2 /HPF 0-2 /HPF [facility] Specific gravity (U) [Rel density] 1.017 1.005 - 1.030 [facility] Urobilinogen Ql (U) 0.2 EU/dL 0.2-1.0 EU/dL [facility] WBC LM.HPF (Urine sed) [#/Area] /[HPF] Abnormal 0-5 /HPF [facility] This test was sonya handy and its performance characteristics determined by [facility]'s [facility] Pathology and Laboratory Medicine [place] ([facility]). It has not been cleared or approved by the FDA. [facility] is regulated under CLIA as qualified to perform high-complexity testing. This test is used for clinical purposes. It should not be regarded as investigational or for research. [facility] UA DIP, URINE (POC)on 2023 BILIRUBIN UA (POCT) Negative Negative [facility] CLARITY UA (POCT) Clear [facility] COLOR UA (POCT) Yellow [facility] GLUCOSE UA (POCT) 500 mg/dL Abnormal Negative [facility] Hemoglobin Ql (U) Trace-intact Abnormal Negative [facility] Interpretation and review of laboratory results Abnormal [facility] KETONE UA (POCT) Negative Negative mg/dL [facility] LEUKOCYTES UA (POCT) Small Abnormal Negative [facility] NITRITE UA (POCT) Negative Negative [facility] PH UA (POCT) 6.5 4.5 - 8.0 [facility] Protein Ql (U) Negative Negative mg/dL [facility] SPECIFIC GRAVITY UA (POCT) 1.010 1.005 - 1.030 [facility] UROBILINOGEN UA (POCT) 0.2 Lidia l E.U./dL [facility] Location:[facility], [address], [place], [id number] [place] [address] POINT OF CARE [facility] 25-hydroxyvitamin D3 [Mass/V ol]on 03-04-2024 Interpretation and review of laboratory results Normal [facility] The reference range interval was based on an analysis of samples from healthy adults and may not pertain to children from 0-18 years old. [facility] CBC W Auto Differential pane l (Bld)on 03-04-2024 Basophils (Bld) [#/Vol] 0.04 10*3/uL [facility] Basophils/100 WBC (Bld) 0.7 % [facility] Differential cell count method Nom (Bld) Auto [facility] Eosinophils (Bld) [#/Vol] 0.33 10*3/uL [facility] Eosinophils/100 WBC (Bld) 5.4 % [facility] Erythrocyte distribution width (RBC) [Ratio] 14.3 % 11.5 - 15.0 % [facility] Hematocrit (Bld) [Volume fraction] 36.9 % Low 39.0 - 51.0 % [facility] Hemoglobin (Bld) [Mass/Vol] 11.9 g/dL Low 13.0 - 17.0 g/dL [facility] Immature granulocytes (Bld) [#/Vol] 0.03 10*3/uL [facility] Immature granulocytes/100 WBC (Bld) 0.5 % [facility] Interpretation and review of laboratory results Abnormal [facility] Lymphocytes (Bld) [#/Vol] 1.09 10*3/uL [facility] Lymphocytes/100 WBC (Bld) 17.8 % [facility] MCH (RBC) [Entitic mass] 26.7 pg 26.0 - 34.0 pg [facility] MCHC (RBC) [Mass/Vol] 32.2 g/dL 30.5 - 36.0 g/dL [facility] MCV (RBC) [Entitic vol] 82.7 fL 80.0 - 100.0 fL [facility] Monocytes (Bld) [#/Vol] 0.34 10*3/uL [facility] Monocytes/100 WBC (Bld) 5.6 % [facility] Neutrophils (Bld) [#/Vol] 4.28 10*3/uL [facility] Neutrophils/100 WBC (Bld) 70.0 % [facility] Nucleated RBC (Bld) [#/Vol] NINF [facility] Nucleated RBC/100 WBC (Bld) [Ratio] 0.0 % /100 WBC [facility] Platelet mean volume (Bld) [Entitic vol] 10.8 fL 9.0 - 12.7 fL [facility] Platelets (Bld) [#/Vol] 116 10*3/uL Low [facility] RBC (Bld) [#/Vol] 4.46 10*6/uL 4.20 - 6.0 0 m/uL [facility] WBC (Bld) [#/Vol] 6.11 10*3/uL [facility] Comprehensive metabolic 2000 panelon 03-04-2024 Albumin [Mass/Vol] 4.0 g/dL 3.9 - 4.9 g/dL [facility] ALP [Catalytic activity/Vol] 85 U/L 38 - 113 U/L [facility] ALT [Catalytic activity/Vol] 12 U/L 10 - 54 U/L [facility] Anion gap [Moles/Vol] 9 mmol/L 9 - 18 mmol/L [facility] AST [Catalytic activity/Vol] 13 U/L Low 14 - 40 U/L [facility] Bilirubin [Mass/Vol] 0.2 mg/dL 0.2 - 1 .3 mg/dL [facility] Calcium [Mass/Vol] 9.1 mg/dL 8.5 - 10. 2 mg/dL [facility] Chloride [Moles/Vol] 95 mmol/L Low 97 - 10 5 mmol/L [facility] CO2 [Moles/Vol] 28 mmol/L 22 - 30 mmol/L [facility] Creatinine [Mass/Vol] 2.24 mg/dL High 0.73 - 1.22 mg/dL [facility] GFR/1.73 sq M.predicted among non-blacks MDRD (S/P/Bld) [Vol rate/Area] 33 mL/min/{1.73_m2} Low - PINF [facility] Comment on above: Estimated Glomerular Filtration Rate (eGFR) is calculated using the 2020 CKD-EPI creatinine equation. This equation utilizes serum creatinine, sex, and age as parameters. The creatinine assay has traceable calibration to isotope dilution-mass spectrometry. Refer to KDIGO guidelines for clinical interpretation. In patients with unstable renal function, e.g. those with acute kidney injury, the eGFR may not accurately reflect actual GFR. Glucose [Mass/Vol] 279 mg/dL High 74 - 99 mg/dL [facility] Comment on above: The [place] Diabete s Association (ADA) provides guidance for cutoff values for fasting glucose and random glucose. The ADA defines fasting as no caloric intake for at least 8 hours. Fasting plasma glucose results between 100 to 125 mg/dL indicate increased risk for diabetes (prediabetes). Fasting plasma glucose results greater than or equal to 126 mg/dL meet the criteria for diagnosis of diabetes. In the absence of unequivocal hyperglycemia, results should be confirmed by repeat testing. In a patient with classic symptoms of hyperglycemia or hyperglycemic crisis, random plasma glucose results greater than or equal to 200 mg/dL meet the criteria for diagnosis of diabetes. Reference: Standards of Medical Care in Diabetes 2016, [place] [employer]. Diabetes Care. 2016.39(Suppl 1). Interpretation and review of laboratory results Abnormal [facility] Potassium [Moles/Vol] 4.3 mmol/L 3.7 - 5.1 mmol/L [facility] Protein [Mass/Vol] 7.2 g/dL 6.3 - 8.0 g/dL [facility] Sodium [Moles/Vol] 132 mmol/L Low 136 - 144 mmol/L [facility] Urea nitrogen [Mass/Vol] 36 mg/dL High 9 - 24 mg/dL [facility] MAGNESIUM [facility] 03-04-2024 Magnesium [Mass/Vol] 2.0 mg/dL 1.7 - 2 .3 mg/dL [facility] No Panel Informationon 03-04 Interpretation and review of laboratory results Normal [facility] PTH INTACT [facility] 03-04-2024 Parathyrin.intact [Mass/Vol] 158 pg/mL High 15 - 65 pg/mL [facility] Parathyrin.intact [Mass/Vol] on 03-04-2024 Interpretation and review of laboratory results Abnormal [facility] URIC ACID BLOODon 03-04-2024 Urate [Mass/Vol] 6.3 mg/dL 4.0 - 8.1 mg/dL [facility] VITAMIN D 25 HYDROXYon 03-04 25-hydroxyvitamin D3 [Mass/Vol] 41.3 ng/mL 31.0 - 80.0 ng/mL [facility] Comment on above: Classification of 25 [place] Vitamin D status: Deficiency/Insufficiency: < or = 30 ng/ml. Sufficiency/Optimal Levels: 31-80 ng/mL Toxicity: > 100 ng/mL. Test performed by chemiluminescent immunoassay. ALBUMIN/CREATININE RATIO, UR INEon 02-18-2024 Albumin Unsp time DL <= 20 mg/L (U) [Mass/Time] 39.8 mg/L [facility] Albumin/Creatinine (U) [Mass ratio] 126 mg/g High NINF - 30 mg/g [facility] Comment on above: Adult Male and Femal e Nephrotic Criteria: <30 mg/g is considered normal to mildly increased 30-300 mg/g is considered moderately increased >300 mg/g is considered severely increased KDIGO. (2013). KDIGO 2012 Clinical Practice Guideline for the Evaluation and Management of Chronic Kidney Disease. Official Journal of the International Society of Nephrology, 3(1), 1-150. Creatinine (U) [Mass/Vol] 31.6 mg/dL Low 46.8 - 314.5 mg/dL [facility] Interpretation and review of laboratory results Abnormal [facility] HEMOGLOBIN A1C (POC)on 02-17 HbA1c (Bld) [Mass fraction] 11.5 % Abnormal 4.3 - 5.6 % [facility] Comment on above: Location:[facility], [address] [place] [address], [id number] Point of care (POC) Hemoglobin A1c (HGBA1C) testing is intended to assess glucose control and provide a management tool for patients known to have diabetes and their healthcare providers. Target HGBA1C levels may depend on specific clinical circumstances. POC HGBA1C is not intended for use as a diagnostic or screening test; laboratory-based testing should be used for diagnostic purposes. The following information is supplemental and may not be applicable to specific diabetes management situations: The POC device diesel roller operator provides a normal range of 4.2% to 6.5% for the HGBA1C POC test. However, the [place] [employer] guidelines indicate that patients with HGBA1C in the range of 5.7% to 6.4% are at increased risk for development of diabetes and that intervention by lifestyle modification may be beneficial. A HGBA1C level greater than or equal to 6.5% is considered diagnostic of diabetes, pending confirmatory testing. Use of HGBA1C testing to evaluate glucose control may not be appropriate for patients with hemoglobin variants or other conditions (e.g. anemia) that alter red blood cell lifespan. Interpretation and review of laboratory results Abnormal [facility] ECG COMPLETEon 02-16-2024 Atrial Rate 81 BPM [facility] Calculated P Noble 71 degrees [facility] Calculated R Noble 4 degrees [facility] Calculated T Noble 62 degrees [facility] P-R Interval 232 ms [facility] QRS Duration 88 ms [facility] QT Interval 370 ms [facility] QTC Calculation (Bazett) 429 ms [facility] Ventricular Rate 81 BPM [facility] SINUS RHYTHM WITH 1S T DEGREE AV BLOCK OTHERWISE NORMAL ECG Confirmed by MD BENTON GREGORY () on 02/16/2024 8:30:33 AM [facility] VASCULAR GLEN AUBREY NAME : BERNY SHARMA PID : [id number] : 1965 Gender : Male Race : ORD : Procedure Date : Feb 15 2024 09:05:20 Edit Date : Feb 16 2024 08:30:36 Diagnosis: SINUS RHYTHM WITH 1ST DEGREE AV BLOCK OTHERWISE NORMAL ECG Confirmed by MD BENTON GREGORY () on 02/16/2024 8:30:33 AM Test Reason : Location : 211 : [facility] Overread By : MD BENTON GREGORY Edited By : MD BENTON GREGORY Referred By : Osiris Paris Acquired by : Leon Gutierrez, HEART AND VASCULAR [facility] CBC W Auto Differential pane l (Bld)on 12-16-2023 Basophils (Bld) [#/Vol] 0.05 10*3/uL <0.11 k/uL [facility] Basophils/100 WBC (Bld) 0.7 % [facility] Differential cell count method Nom (Bld) Auto [facility] Eosinophils (Bld) [#/Vol] 0.38 10*3/uL <0.46 k/uL [facility] Eosinophils/100 WBC (Bld) 5.7 % [facility] Erythrocyte distribution width (RBC) [Ratio] 13.7 % 11.5 - 15.0 % [facility] Hematocrit (Bld) [Volume fraction] 37.3 % Low 39.0 - 51.0 % [facility] Hemoglobin (Bld) [Mass/Vol] 12.5 g/dL Low 13.0 - 17.0 g/dL [facility] Immature granulocytes (Bld) [#/Vol] 0.03 10*3/uL <0.10 k/uL [facility] Immature granulocytes/100 WBC (Bld) 0.4 % [facility] Lymphocytes (Bld) [#/Vol] 1.20 10*3/uL 1.00 - 4.00 k/uL [facility] Lymphocytes/100 WBC (Bld) 17.9 % [facility] MCH (RBC) [Entitic mass] 27.0 pg 26.0 - 34.0 pg [facility] MCHC (RBC) [Mass/Vol] 33.5 g/dL 30.5 - 36.0 g/dL [facility] MCV (RBC) [Entitic vol] 80.6 fL 80.0 - 100.0 fL [facility] Monocytes (Bld) [#/Vol] 0.44 10*3/uL <0.87 k/uL [facility] Monocytes/100 WBC (Bld) 6.6 % C [facility] Neutrophils (Bld) [#/Vol] 4.60 10*3/uL 1.45 - 7.50 k/uL [facility] Neutrophils/100 WBC (Bld) 68.7 % [facility] Nucleated RBC (Bld) [#/Vol] <0.01 k/uL [facility] Nucleated RBC/100 WBC (Bld) [Ratio] 0.0 /100 WBC [facility] Platelet mean volume (Bld) [Entitic vol] 12.3 fL 9.0 - 12.7 fL [facility] Platelets (Bld) [#/Vol] 109 10*3/uL Low 150 - 400 k/uL [facility] RBC (Bld) [#/Vol] 4.63 10*6/uL 4.20 - 6.0 0 m/uL [facility] WBC (Bld) [#/Vol] 6.70 10*3/uL 3.70 - 11. 00 k/uL [facility] Laboratory - Chemistry and C hemistry - challengeon 12-16-2023 Albumin DL <= 20 mg/L (U) [Mass/Vol] 73.0 mg/L [facility] Albumin/Creatinine (U) [Mass ratio] 137 mg/g High <30 mg/g [facility] Creatinine (U) [Mass/Vol] 53.4 mg/dL 20.0 - 300.0 mg/dL [facility] Magnesium [Mass/Vol] 2.3 mg/dL 1.7 - 2 .3 mg/dL [facility] Urate [Mass/Vol] 6.7 mg/dL 4.0 - 8.1 mg/dL [facility] Renal function 2000 panelon 12-16-2023 Albumin [Mass/Vol] 4.2 g/dL 3.9 - 4.9 g/dL [facility] Anion gap [Moles/Vol] 12 mmol/L 9 - 18 mmol/L [facility] Calcium [Mass/Vol] 9.4 mg/dL 8.5 - 10. 2 mg/dL [facility] Chloride [Moles/Vol] 93 mmol/L Low 97 - 10 5 mmol/L [facility] CO2 [Moles/Vol] 26 mmol/L 22 - 30 mmol/L [facility] Creatinine [Mass/Vol] 2.27 mg/dL High 0.73 - 1.22 mg/dL [facility] Estimated Glomerular Filtration Rate 32 mL/min/1.73m Low >=60 mL/min/1.73m [facility] Glucose [Mass/Vol] 359 mg/dL High 74 - 99 mg/dL [facility] Phosphate [Mass/Vol] 4.1 mg/dL 2.7 - 4 .8 mg/dL [facility] Potassium [Moles/Vol] 4.5 mmol/L 3.7 - 5.1 mmol/L [facility] Sodium [Moles/Vol] 131 mmol/L Low 136 - 144 mmol/L [facility] Urea nitrogen [Mass/Vol] 57 mg/dL High 9 - 24 mg/dL [facility] Urinalysis complete panel (U )on 12-16-2023 Bacteria LM.HPF (Urine sed) [#/Area] Negative Negative /HPF [facility] Bilirubin Ql (U) Negative Negative [facility] Clarity (Unsp spec) Cloudy Abnormal Clear [facility] Color (U) Yellow Yellow [facility] Epithelial cells LM.HPF (Urine sed) [#/Area] None Seen [facility] Glucose Test strip (U) [Mass/Vol] 3+ Abnormal Negative [facility] Hemoglobin Ql (U) 1+ Abnormal Negative [facility] Hyaline casts (Urine sed) [#/Area] 1-3 /LPF Abnormal 0 /LPF [facility] Ketones Ql (U) Negative Negative [facility] Leukocyte esterase Test strip Ql (U) 2+ Abnormal Negative [facility] Nitrite Ql (U) Negative Negative [facility] pH (U) 6.5 [pH] <8.5 [facility] Protein (U) [Mass/Vol] Trace Abnormal Negative [facility] RBC LM.HPF (Urine sed) [#/Area] 0-2 /HPF 0-2 /HPF [facility] Specific gravity (U) [Rel density] 1.019 1.005 - 1.030 [facility] Urobilinogen Ql (U) 0.2 EU/dL 0.2-1.0 EU/dL [facility] WBC LM.HPF (Urine sed) [#/Area] /[HPF] Abnormal 0-5 /HPF [facility] VITAMIN D 25 HYDROXYon 12-16 25-hydroxyvitamin D3 [Mass/Vol] 39.0 ng/mL 31.0 - 80.0 ng/mL [facility] CBC W Auto Differential pane l (Bld)on 11-30-2023 Basophils (Bld) [#/Vol] 0.04 10*3/uL <0.11 k/uL [facility] Basophils/100 WBC (Bld) 0.5 % [facility] Differential cell count method Nom (Bld) Auto [facility] Eosinophils (Bld) [#/Vol] 0.33 10*3/uL <0.46 k/uL [facility] Eosinophils/100 WBC (Bld) 4.4 % [facility] Erythrocyte distribution width (RBC) [Ratio] 13.9 % 11.5 - 15.0 % [facility] Hematocrit (Bld) [Volume fraction] 36.8 % Low 39.0 - 51.0 % [facility] Hemoglobin (Bld) [Mass/Vol] 12.4 g/dL Low 13.0 - 17.0 g/dL [facility] Immature granulocytes (Bld) [#/Vol] 0.03 10*3/uL <0.10 k/uL [facility] Immature granulocytes/100 WBC (Bld) 0.4 % [facility] Lymphocytes (Bld) [#/Vol] 1.31 10*3/uL 1.00 - 4.00 k/uL [facility] Lymphocytes/100 WBC (Bld) 17.5 % [facility] MCH (RBC) [Entitic mass] 27.3 pg 26.0 - 34.0 pg [facility] MCHC (RBC) [Mass/Vol] 33.7 g/dL 30.5 - 36.0 g/dL [facility] MCV (RBC) [Entitic vol] 80.9 fL 80.0 - 100.0 fL [facility] Monocytes (Bld) [#/Vol] 0.50 10*3/uL <0.87 k/uL [facility] Monocytes/100 WBC (Bld) 6.7 % [facility] Neutrophils (Bld) [#/Vol] 5.28 10*3/uL 1.45 - 7.50 k/uL [facility] Neutrophils/100 WBC (Bld) 70.5 % [facility] Nucleated RBC (Bld) [#/Vol] <0.01 k/uL [facility] Nucleated RBC/100 WBC (Bld) [Ratio] 0.0 /100 WBC [facility] Platelet mean volume (Bld) [Entitic vol] 11.1 fL 9.0 - 12.7 fL [facility] Platelets (Bld) [#/Vol] 112 10*3/uL Low 150 - 400 k/uL [facility] RBC (Bld) [#/Vol] 4.55 10*6/uL 4.20 - 6.0 0 m/uL [facility] WBC (Bld) [#/Vol] 7.49 10*3/uL 3.70 - 11. 00 k/uL [facility] Comprehensive metabolic 2000 panelon 11-30-2023 Albumin [Mass/Vol] 4.3 g/dL 3.9 - 4.9 g/dL [facility] ALP [Catalytic activity/Vol] 104 U/L 38 - 113 U/L [facility] ALT [Catalytic activity/Vol] 16 U/L 10 - 54 U/L [facility] Anion gap [Moles/Vol] 13 mmol/L 9 - 18 mmol/L [facility] AST [Catalytic activity/Vol] 12 U/L Low 14 - 40 U/L [facility] Bilirubin [Mass/Vol] 0.2 mg/dL 0.2 - 1 .3 mg/dL [facility] Calcium [Mass/Vol] 9.2 mg/dL 8.5 - 10. 2 mg/dL [facility] Chloride [Moles/Vol] 94 mmol/L Low 97 - 10 5 mmol/L [facility] CO2 [Moles/Vol] 23 mmol/L 22 - 30 mmol/L [facility] Creatinine [Mass/Vol] 2.37 mg/dL High 0.73 - 1.22 mg/dL [facility] Estimated Glomerular Filtration Rate 31 mL/min/1.73m Low >=60 mL/min/1.73m [facility] Glucose [Mass/Vol] 482 mg/dL High 74 - 99 mg/dL [facility] Potassium [Moles/Vol] 4.5 mmol/L 3.7 - 5.1 mmol/L [facility] Protein [Mass/Vol] 7.3 g/dL 6.3 - 8.0 g/dL [facility] Sodium [Moles/Vol] 130 mmol/L Low 136 - 144 mmol/L [facility] Urea nitrogen [Mass/Vol] 61 mg/dL High 9 - 24 mg/dL [facility] CNOVon 11-24-2023 [facility] Office Visit (JAI ) -------- YAMILKA SHARMA ([id number]) 1965 M Date Time Provider Department 11/24/23 9:40 AM VARGAS BENTON During your visit today, we recorded the following information about you: Pulse Blood pressure Weight 88/minute 122/66 129.5 kg Vargas Benton DO 11/24/2023 5:20 PM [facility] SECTION OF [facility] CARDIOLOGY [facility] OUTPATIENT VISIT DATE November 24, 2023 PRIMARY CARE PHYSICIAN: Najma Bloom [address] [place] [id number] HISTORY OF PRESENT ILLNESS: Mr. Sharma is a 58 year old male. The patient returns for follow-up second history of paroxysmal atrial fibrillation on long-term anticoagulation with Eliquis as well as hypertension, hyperlipidemia and coronary artery disease. He denies chest discomfort, dyspnea, orthopnea, paroxysmal nocturnal dyspnea, palpitations, near-syncope or syncope. His biggest complaint is that of fatigue. PLAN AND RECOMMENDATIONS: The patient appears stable without apparent symptoms that would suggest angina or cardiac decompensation. Heart rate, blood pressure and recent cholesterol profile are favorable. We have therefore made no additions or changes. Dietary and lifestyle modification was otherwise reemphasized to facilitate risk factor reduction. Will look forward to reevaluating him in 6 months time. Vitals: BP 122/66 Pulse 88 Wt 129.5 kg (285 lb 7.9 oz) SpO2 97% BMI 38.72 kg/m? Physical Exam Vitals reviewed. Constitutional: General: He is not in acute distress. Appearance: Normal appearance. He is well-developed. He is not diaphoretic. HENT: Head: Normocephalic and atraumatic. Right Ear: External ear normal. Left Ear: External ear normal. Nose: Nose normal. Eyes: General: No scleral icterus. Right eye: No discharge. Left eye: No discharge. Pupils: Pupils are equal, round, and reactive to light. Neck: Thyroid: No thyromegaly. Vascular: No carotid bruit or JVD. Cardiovascular: Rate and Rhythm: Normal rate and regular rhythm. Heart sounds: No murmur heard. No friction rub. No gallop. Pulmonary: Effort: Pulmonary effort is normal. No respiratory distress. Breath sounds: Normal breath sounds. No wheezing or rales. Abdominal: General: Bowel sounds are normal. Palpations: Abdomen is soft. Musculoskeletal: General: Normal range of motion. Cervical back: Neck supple. Skin: General: Skin is warm and dry. Capillary Refill: Capillary refill takes less than 2 seconds. Coloration: Skin is not pale. Neurological: Mental Status: He is alert and oriented to person, place, and time. Cranial Nerves: No cranial nerve deficit. Psychiatric: Mood and Affect: Mood normal. Mood is not anxious or depressed. Behavior: Behavior normal. Thought Content: Thought content normal. Judgment: Judgment normal. Review of Systems Constitutional: Positive for fatigue. Negative for activity change, appetite change and unexpected weight change. HENT: Negative for ear pain and trouble swallowing. Eyes: Negative for pain and visual disturbance. Respiratory: Negative for chest tightness and shortness of breath. Cardiovascular: Negative for chest pain, palpitations and leg swelling. Gastrointestinal: Negative for abdominal pain and blood in stool. Endocrine: Negative for cold intolerance and heat intolerance. Genitourinary: Negative for dysuria, hematuria and scrotal swelling. Musculoskeletal: Negative for arthralgias and myalgias. Skin: Negative for pallor and rash. Allergic/Immunologic: Negative for immunocompromised state. Neurological: Negative for dizziness, syncope and light-headedness. Hematological: Negative for adenopathy. Does not bruise/bleed easily. Psychiatric/Behavioral: Negative for sleep disturbance. The patient is not nervous/anxious. PAST MEDICAL HISTORY Diagnosis Date Acute exacerbation of chronic obstructive airways disease (HCC) Rx for augmentin, symptomatic care as needed. Patient denies COPD, asthma, uses an inhaler PRN usually about once a year with hot weather Anemia Depression Diffuse large B cell lymphoma (HCC) 07/14/2019 Encounter for screening for malignant neoplasm of prostate Essential hypertension continue Lisinopril Hydronephrosis Hydronephrosis with ureteral stricture Hypomagnesemia 10/30/2019 Nausea and vomiting 01/09/2023 Obesity, Class II, BMI 35-39.9 12/15/2022 DEISI (obstructive sleep apnea) mild and no CPAP Paroxysmal atrial fibrillation (HCC) 01/10/2023 Prostatitis 01/09/2023 Sepsis due to gram-negative UTI (HCC) (HCC) 10/25/2019 Thrombocytopenia (HCC) Type 2 diabetes mellitus (HCC) continue current meds Ureteral obstruction, left Urinary tract infection Vitamin D deficiency 01/09/2023 PAST SURGICAL HISTORY Procedure Laterality Date APPENDECT (more content not included)... Normal [facility] Basic metabolic 2000 panelon 10-12-2023 Anion gap [Moles/Vol] 12 mmol/L 9 - 18 mmol/L [facility] Calcium [Mass/Vol] 10.3 mg/dL High 8.5 - 10. 2 mg/dL [facility] Chloride [Moles/Vol] 96 mmol/L Low 97 - 10 5 mmol/L [facility] CO2 [Moles/Vol] 26 mmol/L 22 - 30 mmol/L [facility] Creatinine [Mass/Vol] 3.26 mg/dL High 0.73 - 1.22 mg/dL [facility] Estimated Glomerular Filtration Rate 21 mL/min/1.73m Low >=60 mL/min/1.73m [facility] Glucose [Mass/Vol] 317 mg/dL High 74 - 99 mg/dL [facility] Potassium [Moles/Vol] 5.1 mmol/L 3.7 - 5.1 mmol/L [facility] Sodium [Moles/Vol] 134 mmol/L Low 136 - 144 mmol/L [facility] Urea nitrogen [Mass/Vol] 89 mg/dL High 9 - 24 mg/dL [facility] HEMOGLOBIN A1C (POC)on 10-09 HbA1c (Bld) [Mass fraction] 10.4 % Abnormal 4.2 - 5.6 % [facility] CBC W Auto Differential pane l (Bld)on 08-11-2023 Basophils (Bld) [#/Vol] 0.04 10*3/uL <0.11 k/uL [facility] Basophils/100 WBC (Bld) 0.7 % [facility] Differential cell count method Nom (Bld) Auto [facility] Eosinophils (Bld) [#/Vol] 0.28 10*3/uL <0.46 k/uL [facility] Eosinophils/100 WBC (Bld) 4.9 % [facility] Erythrocyte distribution width (RBC) [Ratio] 13.8 % 11.5 - 15.0 % [facility] Hematocrit (Bld) [Volume fraction] 36.9 % Low 39.0 - 51.0 % [facility] Hemoglobin (Bld) [Mass/Vol] 12.3 g/dL Low 13.0 - 17.0 g/dL [facility] Immature granulocytes (Bld) [#/Vol] <0.10 k/uL [facility] Immature granulocytes/100 WBC (Bld) 0.4 % [facility] Lymphocytes (Bld) [#/Vol] 1.26 10*3/uL 1.00 - 4.00 k/uL [facility] Lymphocytes/100 WBC (Bld) 22.1 % [facility] MCH (RBC) [Entitic mass] 27.1 pg 26.0 - 34.0 pg [facility] MCHC (RBC) [Mass/Vol] 33.3 g/dL 30.5 - 36.0 g/dL [facility] MCV (RBC) [Entitic vol] 81.3 fL 80.0 - 100.0 fL [facility] Monocytes (Bld) [#/Vol] 0.40 10*3/uL <0.87 k/uL [facility] Monocytes/100 WBC (Bld) 7.0 % C [facility] Neutrophils (Bld) [#/Vol] 3.69 10*3/uL 1.45 - 7.50 k/uL [facility] Neutrophils/100 WBC (Bld) 64.9 % [facility] Nucleated RBC (Bld) [#/Vol] <0.01 k/uL [facility] Nucleated RBC/100 WBC (Bld) [Ratio] 0.0 /100 WBC [facility] Platelet mean volume (Bld) [Entitic vol] 12.2 fL 9.0 - 12.7 fL [facility] Platelets (Bld) [#/Vol] 103 10*3/uL Low 150 - 400 k/uL [facility] RBC (Bld) [#/Vol] 4.54 10*6/uL 4.20 - 6.0 0 m/uL [facility] WBC (Bld) [#/Vol] 5.69 10*3/uL 3.70 - 11. 00 k/uL [facility] Cholesterol in LDL Direct as say [Mass/Vol]on 08-11-2023 Cholesterol in LDL [Mass/Vol] 67 mg/dL <100 mg/dL [facility] Cholesterol in VLDL [Mass/Vol] 85 mg/dL High <30 mg/dL [facility] Lipid 1996 panelon 3 Cholesterol [Mass/Vol] 179 mg/dL <200 mg/dL [facility] Cholesterol in HDL [Mass/Vol] 27 mg/dL Low >39 mg/dL [facility] Cholesterol in LDL [Mass/Vol] [facility] Cholesterol in LDL/Cholesterol in HDL [Mass ratio] [facility] Cholesterol in VLDL [Mass/Vol] [facility] Cholesterol non HDL [Mass/Vol] 152 mg/dL High <130 mg/dL [facility] Cholesterol.total/Ellie sterol in HDL [Mass ratio] 6.63 {ratio} High <5.10 [facility] Fasting Time 13 hrs [facility] Triglyceride [Mass/Vol] 473 mg/dL High <150 mg/dL [facility] MAGNESIUM Don 08-11-2023 Magnesium [Mass/Vol] 2.0 mg/dL 1.7 - 2 .3 mg/dL [facility] PSA/PROSTSPECAG SCRNon 08-11 Prostate specific Ag [Mass/Vol] 0.13 ng/mL <2.60 ng/mL [facility] PTH INTACT BLDon 08-11-2023 Parathyrin.intact [Mass/Vol] 176 pg/mL High 15 - 65 pg/mL [facility] Renal function 2000 panelon 08-11-2023 Albumin [Mass/Vol] 4.1 g/dL 3.9 - 4.9 g/dL [facility] Anion gap [Moles/Vol] 15 mmol/L 9 - 18 mmol/L [facility] Calcium [Mass/Vol] 9.0 mg/dL 8.5 - 10. 2 mg/dL [facility] Chloride [Moles/Vol] 96 mmol/L Low 97 - 10 5 mmol/L [facility] CO2 [Moles/Vol] 23 mmol/L 22 - 30 mmol/L [facility] Creatinine [Mass/Vol] 2.31 mg/dL High 0.73 - 1.22 mg/dL [facility] Estimated Glomerular Filtration Rate 32 mL/min/1.73m Low >=60 mL/min/1.73m [facility] Glucose [Mass/Vol] 318 mg/dL High 74 - 99 mg/dL [facility] Phosphate [Mass/Vol] 3.7 mg/dL 2.7 - 4 .8 mg/dL [facility] Potassium [Moles/Vol] 4.9 mmol/L 3.7 - 5.1 mmol/L [facility] Sodium [Moles/Vol] 134 mmol/L Low 136 - 144 mmol/L [facility] Urea nitrogen [Mass/Vol] 52 mg/dL High 9 - 24 mg/dL [facility] URIC ACID BLOODon 08-11-2023 Urate [Mass/Vol] 7.0 mg/dL 4.0 - 8.1 mg/dL [facility] Urinalysis complete panel (U )on 08-11-2023 Bacteria LM.HPF (Urine sed) [#/Area] Negative Negative /HPF [facility] Bilirubin Ql (U) Negative Negative [facility] Clarity (Unsp spec) Clear Clear [facility] Color (U) Yellow Yellow [facility] Epithelial cells LM.HPF (Urine sed) [#/Area] None Seen [facility] Glucose Test strip (U) [Mass/Vol] 3+ Abnormal Negative [facility] Hemoglobin Ql (U) Trace Abnormal Negative [facility] Hyaline casts (Urine sed) [#/Area] 0 /[LPF] 0 /LPF [facility] Ketones Ql (U) Negative Negative [facility] Leukocyte esterase Test strip Ql (U) 2+ Abnormal Negative [facility] Nitrite Ql (U) Negative Negative [facility] pH (U) 6.5 [pH] <8.5 [facility] Protein (U) [Mass/Vol] Negative Negative [facility] RBC LM.HPF (Urine sed) [#/Area] 0-2 /HPF 0-2 /HPF [facility] Specific gravity (U) [Rel density] 1.012 1.005 - 1.030 [facility] Urobilinogen Ql (U) 0.2 EU/dL 0.2-1.0 EU/dL [facility] WBC LM.HPF (Urine sed) [#/Area] /[HPF] Abnormal 0-5 /HPF [facility] CREATININE BLDon 07-08-2023 Creatinine [Mass/Vol] 2.36 mg/dL High 0.73 - 1.22 mg/dL [facility] Estimated Glomerular Filtration Rate 31 mL/min/1.73m Low >=60 mL/min/1.73m [facility] HEMOGLOBIN A1C (POC)on 05-26 HbA1c (Bld) [Mass fraction] 8.5 % Abnormal 4.2 - 5.6 % [facility] Basic metabolic 2000 panelon 03-27-2023 Anion gap [Moles/Vol] 10 mmol/L 9 - 18 mmol/L [facility] Calcium [Mass/Vol] 9.4 mg/dL 8.5 - 10. 2 mg/dL [facility] Chloride [Moles/Vol] 106 mmol/L High 97 - 10 5 mmol/L [facility] CO2 [Moles/Vol] 21 mmol/L Low 22 - 30 mmol/L [facility] Creatinine [Mass/Vol] 2.09 mg/dL High 0.73 - 1.22 mg/dL [facility] Estimated Glomerular Filtration Rate 36 mL/min/1.73m Low >=60 mL/min/1.73m [facility] Glucose [Mass/Vol] 272 mg/dL High 74 - 99 mg/dL [facility] Potassium [Moles/Vol] 4.8 mmol/L 3.7 - 5.1 mmol/L [facility] Sodium [Moles/Vol] 137 mmol/L 136 - 144 mmol/L [facility] Urea nitrogen [Mass/Vol] 58 mg/dL High 9 - 24 mg/dL [facility] UA DIP, URINE (POC)on 2022 BILIRUBIN UA (POCT) Negative Negative [facility] CLARITY UA (POCT) Cloudy [facility] COLOR UA (POCT) Yellow [facility] GLUCOSE UA (POCT) Negative Negative mg/dL [facility] HEMOGLOBIN/BLOOD UA (POCT) Large Abnormal Negative [facility] KETONE UA (POCT) Negative Negative mg/dL [facility] LEUKOCYTES UA (POCT) Moderate Abnormal Negative [facility] NITRITE UA (POCT) Negative Negative [facility] PH UA (POCT) 6.0 4.5 - 8.0 [facility] Protein Ql (U) 100 mg/dL Abnormal Negative mg/dL [facility] SPECIFIC GRAVITY UA (POCT) 1.015 1.005 - 1.030 [facility] UROBILINOGEN UA (POCT) 0.2 E.U./dL Lidia l E.U./dL [facility] UA DIP, URINE (POC)on 2022 BILIRUBIN UA (POCT) Negative Negative [facility] CLARITY UA (POCT) Clear [facility] COLOR UA (POCT) Yellow [facility] GLUCOSE UA (POCT) 100 mg/dL Abnormal Negative mg/dL [facility] HEMOGLOBIN/BLOOD UA (POCT) Large Abnormal Negative [facility] KETONE UA (POCT) Negative Negative mg/dL [facility] LEUKOCYTES UA (POCT) Large Abnormal Negative [facility] NITRITE UA (POCT) Negative Negative [facility] PH UA (POCT) 6.0 4.5 - 8.0 [facility] Protein Ql (U) 100 mg/dL Abnormal Negative mg/dL [facility] SPECIFIC GRAVITY UA (POCT) 1.015 1.005 - 1.030 [facility] UROBILINOGEN UA (POCT) 0.2 E.U./dL Lidia l E.U./dL [facility] UA DIP, URINE (POC)on 2022 BILIRUBIN UA (POCT) Negative Negative [facility] CLARITY UA (POCT) Clear [facility] COLOR UA (POCT) Yellow [facility] GLUCOSE UA (POCT) Negative Negative mg/dL [facility] HEMOGLOBIN/BLOOD UA (POCT) Large Abnormal Negative [facility] KETONE UA (POCT) Negative Negative mg/dL [facility] LEUKOCYTES UA (POCT) Large Abnormal Negative [facility] NITRITE UA (POCT) Negative Negative [facility] PH UA (POCT) 6.0 4.5 - 8.0 [facility] Protein Ql (U) 100 mg/dL Abnormal Negative mg/dL [facility] SPECIFIC GRAVITY UA (POCT) 1.010 1.005 - 1.030 [facility] UROBILINOGEN UA (POCT) 0.2 E.U./dL Lidia l E.U./dL [facility] HEMOGLOBIN A1C (POC)on 11-21 HbA1c (Bld) [Mass fraction] 8.0 % Abnormal 4.2 - 5.6 % [facility] TOX SCREEN ROUT URon 023 Amphetamines Confirm (U) [Mass/Vol] Negative Negative [facility] Barbiturates Urine Negative Negative [facility] Benzodiazepines Urine Negative Negative [facility] Cannabinoids, Urine Negative Negative [facility] Cocaine Ql (U) Negative Negative [facility] Ethanol (U) [Mass/Vol] <11 mg/dL [facility] Opiates Screen Ql (U) Negative Negative [facility] oxyCODONE cutoff Screen (U) [Mass/Vol] Negative Negative [facility] Phencyclidine Ql (U) Negative Negative [facility] UA DIP, URINE (POC)on 2022 BILIRUBIN UA (POCT) Negative Negative [facility] CLARITY UA (POCT) Cloudy [facility] COLOR UA (POCT) Dark yellow [facility] GLUCOSE UA (POCT) 100 mg/dL Abnormal Negative mg/dL [facility] HEMOGLOBIN/BLOOD UA (POCT) Large Abnormal Negative [facility] KETONE UA (POCT) Negative Negative mg/dL [facility] LEUKOCYTES UA (POCT) Large Abnormal Negative [facility] NITRITE UA (POCT) Negative Negative [facility] PH UA (POCT) 5.0 4.5 - 8.0 [facility] Protein Ql (U) 100 mg/dL Abnormal Negative mg/dL [facility] SPECIFIC GRAVITY UA (POCT) 1.015 1.005 - 1.030 [facility] UROBILINOGEN UA (POCT) 0.2 E.U./dL Lidia l E.U./dL [facility] CREATININE BLDon 08-15-2022 Creatinine [Mass/Vol] 1.57 mg/dL High 0.73 - 1.22 mg/dL [facility] Estimated Glomerular Filtration Rate 51 mL/min/1.73m Low >=60 mL/min/1.73m [facility] PT panel Coag (PPP)on 2021 INR Coag (PPP) [Relative time] 1.0 {INR} 0.9 - 1.3 [facility] PT Coag (PPP) [Time] 10.6 s 9.7 - 1 3.0 sec [facility] NM PET/CT SKULL-THIGH SUBSEQ UENTon 05-13-2022 [facility] ALBUMIN/CREAT RATIO RND URon 05-02-2022 Albumin Unsp time DL <= 20 mg/L (U) [Mass/Time] 153.5 mg/L [facility] Albumin/Creatinine (U) [Mass ratio] 239 mg/g High <30 mg/g [facility] Creatinine (U) [Mass/Vol] 64.1 mg/dL 46.8 - 314.5 mg/dL [facility] HEMOGLOBIN A1C (POC)on 05-02 HbA1c (Bld) [Mass fraction] 9.4 % Abnormal 4.2 - 5.6 % [facility] CBC W Auto Differential pane l (Bld)on 04-25-2022 Abs Immature Gran 0.04 k/uL <0.10 k/uL [facility] Basophils (Bld) [#/Vol] 0.03 10*3/uL <0.11 k/uL [facility] Basophils/100 WBC (Bld) 0.3 % C [facility] Differential cell count method Nom (Bld) Auto [facility] Eosinophils (Bld) [#/Vol] 0.36 10*3/uL <0.46 k/uL [facility] Eosinophils/100 WBC (Bld) 3.6 % [facility] Erythrocyte distribution width (RBC) [Ratio] 13.2 % 11.5 - 15.0 % [facility] Hematocrit (Bld) [Volume fraction] 35.0 % Low 39.0 - 51.0 % [facility] Hemoglobin (Bld) [Mass/Vol] 11.5 g/dL Low 13.0 - 17.0 g/dL [facility] Immature Gran % 0.4 % [facility] Lymphocytes (Bld) [#/Vol] 1.62 10*3/uL 1.00 - 4.00 k/uL [facility] Lymphocytes/100 WBC (Bld) 16.3 % [facility] MCH (RBC) [Entitic mass] 26.4 pg 26.0 - 34.0 pg [facility] MCHC (RBC) [Mass/Vol] 32.9 g/dL 30.5 - 36.0 g/dL [facility] MCV (RBC) [Entitic vol] 80.5 fL 80.0 - 100.0 fL [facility] Monocytes (Bld) [#/Vol] 0.74 10*3/uL <0.87 k/uL [facility] Monocytes/100 WBC (Bld) 7.5 % C [facility] Neutrophils (Bld) [#/Vol] 7.13 10*3/uL 1.45 - 7.50 k/uL [facility] Neutrophils/100 WBC (Bld) 71.9 % [facility] Nucleated RBC (Bld) [#/Vol] 10*3/uL <0.01 k/uL [facility] Nucleated RBC/100 WBC (Bld) [Ratio] 0.0 /100 WBC [facility] Platelet mean volume (Bld) [Entitic vol] 10.9 fL 9.0 - 12.7 fL [facility] Platelets (Bld) [#/Vol] 174 10*3/uL 150 - 400 k/uL [facility] RBC (Bld) [#/Vol] 4.35 10*6/uL 4.20 - 6.0 0 m/uL [facility] WBC (Bld) [#/Vol] 9.92 10*3/uL 3.70 - 11. 00 k/uL [facility] Comprehensive metabolic 2000 panelon 04-25-2022 Albumin [Mass/Vol] 4.1 g/dL 3.9 - 4.9 g/dL [facility] ALP [Catalytic activity/Vol] 78 U/L 38 - 113 U/L [facility] ALT [Catalytic activity/Vol] 11 U/L 10 - 54 U/L [facility] Anion gap [Moles/Vol] 11 mmol/L 9 - 18 mmol/L [facility] AST [Catalytic activity/Vol] 9 U/L Low 14 - 40 U/L [facility] Bilirubin [Mass/Vol] 0.4 mg/dL 0.2 - 1 .3 mg/dL [facility] Calcium [Mass/Vol] 8.9 mg/dL 8.5 - 10. 2 mg/dL [facility] Chloride [Moles/Vol] 99 mmol/L 97 - 10 5 mmol/L [facility] CO2 [Moles/Vol] 23 mmol/L 22 - 30 mmol/L [facility] Creatinine [Mass/Vol] 1.54 mg/dL High 0.73 - 1.22 mg/dL [facility] Estimated Glomerular Filtration Rate 52 mL/min/1.73m Low >=60 mL/min/1.73m [facility] Glucose [Mass/Vol] 202 mg/dL High 74 - 99 mg/dL [facility] Potassium [Moles/Vol] 5.6 mmol/L High 3.7 - 5.1 mmol/L [facility] Protein [Mass/Vol] 7.1 g/dL 6.3 - 8.0 g/dL [facility] Sodium [Moles/Vol] 133 mmol/L Low 136 - 144 mmol/L [facility] Urea nitrogen [Mass/Vol] 48 mg/dL High 9 - 24 mg/dL [facility] No Panel Informationon 04-25 [facility] CBC W Auto Differential pane l (Bld)on 01-29-2022 Abs Immature Gran <0.03 <0.10 k/uL [facility] Basophils (Bld) [#/Vol] 0.06 10*3/uL <0.11 k/uL [facility] Basophils/100 WBC (Bld) 1.0 % [facility] Differential cell count method Nom (Bld) Auto [facility] Eosinophils (Bld) [#/Vol] 0.32 10*3/uL <0.46 k/uL [facility] Eosinophils/100 WBC (Bld) 5.2 % [facility] Erythrocyte distribution width (RBC) [Ratio] 13.0 % 11.5 - 15.0 % [facility] Hematocrit (Bld) [Volume fraction] 34.1 % Low 39.0 - 51.0 % [facility] Hemoglobin (Bld) [Mass/Vol] 11.0 g/dL Low 13.0 - 17.0 g/dL [facility] Immature Gran % 0.2 % [facility] Lymphocytes (Bld) [#/Vol] 1.11 10*3/uL 1.00 - 4.00 k/uL [facility] Lymphocytes/100 WBC (Bld) 18.1 % [facility] MCH (RBC) [Entitic mass] 27.8 pg 26.0 - 34.0 pg [facility] MCHC (RBC) [Mass/Vol] 32.3 g/dL 30.5 - 36.0 g/dL [facility] MCV (RBC) [Entitic vol] 86.3 fL 80.0 - 100.0 fL [facility] Monocytes (Bld) [#/Vol] 0.43 10*3/uL <0.87 k/uL [facility] Monocytes/100 WBC (Bld) 7.0 % C [facility] Neutrophils (Bld) [#/Vol] 4.21 10*3/uL 1.45 - 7.50 k/uL [facility] Neutrophils/100 WBC (Bld) 68.5 % [facility] Nucleated RBC (Bld) [#/Vol] 10*3/uL <0.01 k/uL [facility] Nucleated RBC/100 WBC (Bld) [Ratio] 0.0 /100 WBC [facility] Platelet mean volume (Bld) [Entitic vol] 11.7 fL 9.0 - 12.7 fL [facility] Platelets (Bld) [#/Vol] 118 10*3/uL Low 150 - 400 k/uL [facility] RBC (Bld) [#/Vol] 3.95 10*6/uL Low 4.20 - 6.0 0 m/uL [facility] WBC (Bld) [#/Vol] 6.14 10*3/uL 3.70 - 11. 00 k/uL [facility] Comprehensive metabolic 2000 panelon 01-29-2022 Albumin [Mass/Vol] 3.3 g/dL Low 3.9 - 4.9 g/dL [facility] ALP [Catalytic activity/Vol] 83 U/L 38 - 113 U/L [facility] ALT [Catalytic activity/Vol] 13 U/L 10 - 54 U/L [facility] Anion gap [Moles/Vol] 13 mmol/L 9 - 18 mmol/L [facility] AST [Catalytic activity/Vol] 15 U/L 14 - 40 U/L [facility] Bilirubin [Mass/Vol] 0.4 mg/dL 0.2 - 1 .3 mg/dL [facility] Calcium [Mass/Vol] 8.0 mg/dL Low 8.5 - 10. 2 mg/dL [facility] Chloride [Moles/Vol] 107 mmol/L High 97 - 10 5 mmol/L [facility] CO2 [Moles/Vol] 17 mmol/L Low 22 - 30 mmol/L [facility] Creatinine [Mass/Vol] 1.67 mg/dL High 0.73 - 1.22 mg/dL [facility] Estimated Glomerular Filtration Rate 47 mL/min/1.73m Low >=60 mL/min/1.73m [facility] Glucose [Mass/Vol] 379 mg/dL High 74 - 99 mg/dL [facility] Potassium [Moles/Vol] 4.7 mmol/L 3.7 - 5.1 mmol/L [facility] Protein [Mass/Vol] 6.1 g/dL Low 6.3 - 8.0 g/dL [facility] Sodium [Moles/Vol] 137 mmol/L 136 - 144 mmol/L [facility] Urea nitrogen [Mass/Vol] 38 mg/dL High 9 - 24 mg/dL [facility] XR RETROGRADE PYELOGRAM LTon 12-07-2020 XR RETROGRADE PYELOGRAM LT Final Report DATE OF EXAM: Dec 07 2020 2:41PM [id number] - XR RETROGRADE PYELOGRAM LT / PROCEDURE REASON: SURGERY Physician Interpretation EXAM TITLE: RETROGRADE UROGRAM DATE: 12/07/2020 COMPARISON: , 06/15/2020 CLINICAL INDICATION/HISTORY: The patient is a 55-year-old male with history of left ureteral stenosis. TECHNIQUE: Up to one hour of intraoperative fluoroscopic time was provided. 26 seconds of intraoperative fluoroscopic time were utilized. The radiation exposure was 71 mGy. 2 intraoperative images are presented. FINDINGS: Images demonstrate a small amount contrast in the very distal left ureter. Appears to be some segmental narrowing of the very distal left ureter. IMPRESSION: 1. Findings suspicious for short segmental stricture of the distal left ureter. Recommend correlation with fluoroscopic observations. Grinder: JOSÉ MANUEL Transcribe Date/Time: Dec 09 2020 11:28A Dictated by : DAVIDSON GONZALEZ MD This examination was interpreted and the report reviewed and electronically signed by: DAVIDSON GONZALEZ MD on Dec 09 2020 11:32AM EST [facility] CT ABD/PEL W IVCONon 021 CT ABD/PEL W IVCON Final Report DATE OF EXAM: Oct 30 2020 11:12AM [facility] 0530 - CT ABD/PEL W IVCON / PROCEDURE REASON: multiple diagnoses Physician Interpretation EXAMINATION: CT ABDOMEN AND PELVIS WITH IV CONTRAST CLINICAL HISTORY: Iron deficiency anemia due to chronic blood loss Diffuse large B-cell lymphoma, unspecified body region (HCC) TECHNIQUE: CT of the abdomen and pelvis was performed using standard technique, scanning from just above the dome of the diaphragm to the symphysis pubis. MQ: [id number]_3 Contrast: Other: 150 ml of Omnipaque 300 Oral: 900 ml of 50ML Omnipaque [address] Radiation dose: Integrated Dose-length product (DLP) for this visit = 2232.[address] Dose Reduction Employed: Automated exposure control (AEC) COMPARISON: PET/CT 08/07/20, CT abdomen pelvis 04/23/20. RESULT: Liver: No mass. Mild hepatic steatosis Biliary: No bile duct dilation. Gallbladder is unremarkable. Spleen: No mass. No splenomegaly. Pancreas: No mass or duct dilation. Adrenals: Stable 1 cm left adrenal nodule. Normal right adrenal. Kidneys: Persistent moderate left hydroureteronephrosis and asymmetric delayed enhancement of left kidney compared to the right. Persistent left perinephric stranding. Soft tissue density at the distal left ureter extending to the ureterovesical junction similar to 04/23/2020 Normal right kidney. GI tract: No dilation or wall thickening. Nonvisualized appendix, no pericecal inflammation. Lymph nodes: Retroperitoneal adenopathy appears overall unchanged, for example left retroaortic 1.8 x 2.6 cm node image 57, stable from prior PET CT, increased in size from 04/23/2020 where it measured 1.3 x 2.1 cm. Subcentimeter lymph nodes along the common and external iliac stations also appear stable from prior PET CT, some slightly more prominent from 04/23/2020 for example right external iliac node image 112 7 x 9 mm, previously 5 x 6 mm. Scattered subcentimeter short axis mesenteric lymph nodes are nonspecific, grossly similar to prior. Mesentery/Peritoneum: No ascites or mass. Tiny fat-containing paraumbilical hernia Retroperitoneum: No mass. Vasculature: The celiac axis and SMA are patent. The portal vein and branches, splenic vein, SMV, and hepatic veins are patent. Pelvis: Mild diffuse urinary bladder wall thickening. Soft tissue prominence with focus of mineralization with tenting at the bladder dome that may reflect urachal remnant, unchanged appearance. No fluid collection or ascites. Bones/Soft Tissues: Degenerative changes. Lower thorax: A chest CT performed will be reported separately. Patching Machine Operator (topogram) images: No additional findings. IMPRESSION: Retroperitoneal adenopathy overall similar to 08/07/2020 PET/CT, though increased in size from 04/23/2020 CT abdomen/pelvis. Additional subcentimeter mesenteric and pelvic lymph nodes, few minimally more prominent from 04/23/20 Persistent moderate left hydroureteronephrosis with soft tissue density involving the distal left ureter suspicious for neoplastic etiology, appearance similar to prior. Asymmetric enhancement left kidney compared to the right. Urinary bladder wall thickening, correlate to exclude cystitis. Stable 1 cm left adrenal nodule Grinder: PSCB Transcribe Date/Time: Oct 30 2020 11:21A Dictated by : CADE WILD MD This examination was interpreted and the report reviewed and electronically signed by: CADE WILD MD on Oct 30 2020 12:18PM EST [facility] CT CHEST W IVCONon CT CHEST W IVCON Final Report DATE OF EXAM: Oct 30 2020 11:12AM [facility] 0539 - CT CHEST W IVCON / PROCEDURE REASON: multiple diagnoses Physician Interpretation EXAMINATION: CHEST CT WITH CONTRAST CLINICAL HISTORY: Iron deficiency anemia due to chronic blood loss Diffuse large B-cell lymphoma, unspecified body region (HCC) Technique: Spiral CT acquisition of the chest from the thoracic inlet to the upper abdomen following IV contrast. MQ: [id number]_6 Contrast: 150 mL Omnipaque [address] Radiation dose: Integrated Dose-length product (DLP) for this visit = 2232.[address] Dose Reduction Employed: Automated exposure control (AEC) Comparison: PET/CT 08/07/20, chest CT 04/23/2020 RESULT: Limitations: None. Lines, tubes, and devices: Right chest wall port catheter tip at the cavoatrial junction. Lung parenchyma and airways: Minimal retained secretions in the trachea. Bronchial wall thickening. Minimal centrilobular emphysema. Stable 3 mm subpleural nodule right upper lobe image 96, and 4 mm nodule along the left major fissure image 152. Pleural space: No pleural effusion. No pleural thickening. Lower neck, lymph nodes, and mediastinum: The imaged thyroid gland is normal. 1.2 cm short axis right hilar lymph node image 115, previously 1 cm short axis. Slight increased prominence of few other non enlarged lymph nodes, for example subcarinal lymph nodes up to 8 mm short axis, previously 5 mm Heart, pericardium, and thoracic vessels: The thoracic aorta and main pulmonary artery are normal in caliber. The cardiac chambers are normal in size. Coronary artery atherosclerotic calcifications are noted, although the study is not optimized for coronary assessment. No pericardial effusion or thickening. Bones and soft tissues: No destructive bone lesion. Degenerative changes. Upper abdomen: Reported separately. Patching Machine Operator (topogram) images: No additional findings. IMPRESSION: Mildly prominent right hilar lymph node is slightly increased in size compared to prior, indeterminate. Few additional mediastinal nodes are also slightly more prominent from prior, remain non enlarged by size criteria. Stable couple small lung nodules Grinder: JOSÉ MANUEL Transcribe Date/Time: Oct 30 2020 11:21A Dictated by : CADE WILD MD This examination was interpreted and the report reviewed and electronically signed by: CADE WILD MD on Oct 30 2020 12:18PM EST [facility] US KIDNEY/BLADDERon 09-11-20 US KIDNEY/BLADDER Final Report DATE OF EXAM: Sep 11 2020 11:30AM [id number] - US KIDNEY/BLADDER / PROCEDURE REASON: Hydronephrosis, unspecified hydronephrosis type Physician Interpretation EXAMINATION: RENAL ULTRASOUND CLINICAL HISTORY: Hydronephrosis TECHNIQUE: Sonography of the kidneys and urinary bladder was performed. Images were obtained and stored in a permanent archive. MQ: UR_1 COMPARISON: PET CT 08/07/2020, renal ultrasound 07/01/2019 RESULT: Right Kidney: -Renal length: 14 cm -Parenchyma: Normal parenchymal echogenicity. Normal parenchymal thickness. -Collecting system: No hydronephrosis. -Calculus: No echogenic, shadowing calculus. -Lesion: None. Left Kidney: -Renal length: 13 cm -Parenchyma: Normal parenchymal echogenicity. Normal parenchymal thickness. -Collecting system: Moderate hydronephrosis. -Calculus: No echogenic, shadowing calculus. -Lesion: None. Bladder: Partially distended and otherwise unremarkable. IMPRESSION: Chronic left hydronephrosis. Unremarkable right kidney. Grinder: JOSÉ MANUEL Transcribe Date/Time: Sep 11 2020 11:42A Dictated by : JOVANY EVANS MD This examination was interpreted and the report reviewed and electronically signed by: JOVANY EVANS MD on Sep 11 2020 11:45AM EST [facility] XR RETROGRADE PYELOGRAM LTo n 08-03-2020 XR RETROGRADE PYELOGRAM LT Final Report DATE OF EXAM: Aug 03 2020 9:30AM [id number] - XR RETROGRADE PYELOGRAM LT / PROCEDURE REASON: SURGERY Physician Interpretation EXAM TITLE: XR RETROGRADE PYELOGRAM LT DATE: 08/03/2020 1:58 PM INDICATION: Intraoperative for left ureteral stent removal COMPARISON: 06/15/2020 FINDINGS: 26 seconds of fluoroscopy time was provided in the operating room. A single spot view is obtained. This view demonstrates a left ureteral stent and a wire in the left ureter. Only a portion of the left upper urinary tract is included in this view. IMPRESSION: Intraoperative exam. Refer to the operative report for details. Grinder: [facility] Transcribe Date/Time: Aug 03 2020 1:58P Dictated by : GERARD GRIMES MD This examination was interpreted and the report reviewed and electronically signed by: GERARD GRIMES MD on Aug 03 2020 1:59PM EST [facility] Cult Urineon 07-27-2020 Cult Urine Test performed at [facility] ORGANISM: *Yeast (ID: 1) 10,000-50,000 CFU/ml ORGANISM: *Lactobacillus species (ID: 2) 50,000-99,000 CFU/ml Normal urogenital carina. [facility] Comment on above: Performed By: #### C _URI ####[facility] [place], [place] [address] Cult Urineon 06-25-2020 Cult Urine Test performed at [facility] ORGANISM: *Lactobacillus species (ID: 1) >100,000 CFU/ml Normal urogenital carina. [facility] Comment on above: Performed By: #### C _URI ####[facility] [place], [place] [address] ABO/Rh Confirmationon 2019 ABO group Nom (Bld) B [facility] Comment on above: Performed By: #### A AKIRA ####[address] [address] RH Type Positive [facility] Comment on above: Performed By: #### A AKIRA ####[address] [address] Glucose Meteron 06-15-2020 Glucose [Mass/Vol] 237 mg/dL High 70-99 [facility] Comment on above: Performed By: #### G LMET ####[address] [id number] XR RETROGRADE PYELOGRAM LTon 06-15-2020 XR RETROGRADE PYELOGRAM LT Final Report DATE OF EXAM: Jun 15 2020 10:21AM [id number] [id number] - XR RETROGRADE PYELOGRAM LT / PROCEDURE REASON: cystoscopy-reimplant ureter Physician Interpretation EXAM TITLE: LEFT RETROGRADE PYELOGRAM DATE: June 15, 2020 at 8:58 AM COMPARISON: Previous nephrostogram from May [address] scan of the abdomen and pelvis from April 23, 2020 CLINICAL INDICATION/HISTORY: The patient is a 54-year-old male with known distal left ureteral stricture undergoing balloon dilation and placement of ureteral stent. Fluoroscopy Radiation dose: Integrated dose-area product (DAP) for this visit = 43.25 mGycm. TECHNIQUE: 10 spot films from retrograde exam performed by Dr. Lares are presented for interpretation. 1 minute and 8 seconds of fluoroscopy was available in the OR. FINDINGS: Previously identified narrowing of the distal left ureter is seen on initial retrograde exam. Wire access is achieved across the narrowing and then there is balloon dilation of the distal ureter and subsequently internal ureteral stent is placed with the upper pigtail in the upper pole calyx and the lower pigtail in the bladder. IMPRESSION: Intraoperative spot views document distal left ureteral stenosis treated with balloon dilation followed by internal ureteral stenting. Grinder: PSCAusten Transcribe Date/Time: Jun 15 2020 4:00P Dictated by : BARB DIAZ MD This examination was interpreted and the report reviewed and electronically signed by: BARB DIAZ MD on Jun 15 2020 4:04PM EST Normal [facility] Hemogramon 06-07-2020 Erythrocyte distribution width (RBC) [Ratio] 16.1 % High 11.6-14.4 [facility] Comment on above: Performed By: #### C BC1 ####[place] [address] Hematocrit (Bld) [Volume fraction] 37.2 % Low 40.1-51.0 [facility] Comment on above: Performed By: #### C BC1 ####[place] [address] Hemoglobin (Bld) [Mass/Vol] 11.5 g/dL Low 13.7-17.5 [facility] Comment on above: Performed By: #### C BC1 ####[address] [address] MCH (RBC) [Entitic mass] 23.2 pg Low 25.7-32.2 [facility] Comment on above: Performed By: #### C BC1 ####[address] [address] MCHC 30.9 % Low 32.3-36.5 [facility] Comment on above: Performed By: #### C BC1 ####[place] [address] MCV (RBC) [Entitic vol] 75.2 fL Low 83.2-95.6 [facility] Comment on above: Performed By: #### C BC1 ####[address] [address] Platelet mean volume (Bld) [Entitic vol] 11.5 fL Normal 8.7-12.0 [facility] Comment on above: Performed By: #### C BC1 ####[place] [address] Platelets (Bld) [#/Vol] 154 10*3/uL Normal 141-365 [facility] Comment on above: Performed By: #### C BC1 ####[place] [address] RBC 4.95 mil/cmm Normal 4.63-6.08 [facility] Comment on above: Performed By: #### C BC1 ####[place] [address] RDW SD 43.3 fl Normal 36.1-45.8 [facility] Comment on above: Performed By: #### C BC1 ####[place] [address] WBC (Bld) [#/Vol] 6.20 10*3/uL Normal 4.23-9.07 [facility] Comment on above: Performed By: #### C BC1 ####[place] [address] Type and Screenon 06-07-2020 ABO group Nom (Bld) B Normal [facility] Comment on above: Performed By: #### T &S ####[place] [address] Comment Out Patient Normal [facility] Comment on above: Performed By: #### T &S ####[place] [address] RH Type Positive Normal [facility] Comment on above: Performed By: #### T &S ####[place] [address] Basic Metabolic Panelon 05-26 Anion gap [Moles/Vol] 12 mmol/L Normal 9-18 [facility] Comment on above: Performed By: #### B MP ####[address], [place] [address] Calcium [Mass/Vol] 9.4 mg/dL Normal 8.5-10.2 [facility] Comment on above: Performed By: #### B MP ####[facility] [place], [place] [address] Chloride [Moles/Vol] 104 mmol/L Normal 97-105 [facility] Comment on above: Performed By: #### B MP ####[facility] [place], [place] [address] CO2 [Moles/Vol] 22 mmol/L Normal 22-30 [facility] Comment on above: Performed By: #### B MP ####[facility] [place], [place] [address] Creatinine [Mass/Vol] 1.15 mg/dL Normal 0.73-1.22 [facility] Comment on above: Performed By: #### B MP ####[address] [address] Glucose [Mass/Vol] 213 mg/dL High 74-99 [facility] Comment on above: Result Comment: The [place] [employer] (ADA) provides guidance for cutoff values for fasting glucose and random glucose. The ADA defines fasting as no caloric intake for at least 8 hours.Fasting plasma glucose results between 100 to 125 mg/dL indicate increased risk for diabetes (prediabetes). Fasting plasma glucose results greater than or equal to 126 mg/dL meet the criteria for diagnosis of diabetes. In the absence of unequivocal hyperglycemia, results should be confirmed by repeat testing. In a patient with classic symptoms of hyperglycemia or hyperglycemic crisis, random plasma glucose results greater than or equal to 200 mg/dL meet the criteria for diagnosis of diabetes. Reference: Standards of Medical Care in Diabetes 2016; [place] [employer]. Diabetes Care. 2016;39(Suppl 1). Performed By: #### B MP ####[address] [address] Potassium [Moles/Vol] 4.8 mmol/L Normal 3.7-5.1 [facility] Comment on above: Performed By: #### B MP ####[address] [address] Sodium [Moles/Vol] 138 mmol/L Normal 136-144 [facility] Comment on above: Performed By: #### B MP ####[facility] [place], [place] [address] Urea nitrogen [Mass/Vol] 24 mg/dL Normal 9-24 [facility] Comment on above: Performed By: #### B MP ####[facility] [place], [place] [address] Cult Urineon 06-06-2020 Cult Urine Test performed at [facility] ORGANISM: *Soraya albicans (ID: 1) >100,000 CFU/ml Normal [facility] Comment on above: Performed By: #### C _URI ####[place] [id number] MDRD GFRon 06-06-2020 GFR/1.73 sq M.predicted among non-blacks MDRD (S/P/Bld) [Vol rate/Area] mL/min/{1.73_m2} Normal >60mL/min/1. 73m2 [facility] Comment on above: Result Comment: If t he patient is , multiply the result by 1.210. Performed By: #### G FR ####[place] [id number] XR CHEST 2V FRONTAL/LATon XR CHEST 2V FRONTAL/LAT Final Report DATE OF EXAM: Jun 06 2020 3:10PM [id number] - XR CHEST 2V FRONTAL/LAT / PROCEDURE REASON: Hydronephrosis with ureteral stricture Physician Interpretation EXAMINATION: CHEST RADIOGRAPH (2 VIEW FRONTAL & LATERAL) CLINICAL HISTORY: Hydronephrosis MQ: XC2_6 EXAM DATE/TIME: 06/06/2020 3:10 PM COMPARISON: No relevant prior studies available. RESULT: Lines, tubes, and devices: Right medication port catheter tip at the distal SVC. Lungs and pleura: No consolidation. No lung mass. No pleural effusion. No pneumothorax. Cardiomediastinal silhouette: Normal cardiomediastinal silhouette. Bones and soft tissues: Unremarkable. IMPRESSION: No acute radiographic abnormality. Grinder: JOSÉ MANUEL Transcribe Date/Time: Jun 06 2020 3:19P Dictated by : HERIBERTO BARBA MD This examination was interpreted and the report reviewed and electronically signed by: HERIBERTO BARBA MD on Jun 06 2020 3:19PM EST Normal [facility] Cult Urineon 05-29-2020 Cult Urine Test performed at [facility] ORGANISM: *Soraya albicans (ID: 1) >100,000 CFU/ml ORGANISM: Normal Urogenital Carina (ID: 2) 10,000-50,000 CFU/ml Normal [facility] Comment on above: Performed By: #### C _URI #### [facility] [address] [place] [id number] CT ABD/PEL W IVCONon 020 CT ABD/PEL W IVCON Final Report DATE OF EXAM: Apr 23 2020 12:59PM [facility] 0530 - CT ABD/PEL W IVCON / PROCEDURE REASON: Diffuse large B-cell lymphoma of solid organ excluding spleen (HCC) Physician Interpretation EXAMINATION: CT CHEST WITH IV CONTRAST and CT ABDOMEN AND PELVIS WITH IV CONTRAST CLINICAL HISTORY: Diffuse large B-cell lymphoma of solid organ excluding spleen (HCC) TECHNIQUE: CT of the chest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 fraction] 94 % Jovany Trill WAREHOUSE UNLOADER.MI[employer]ER Work Phone: [facility] 11-25-2022 13:27-0500 Systolic blood pressure 128 mm[Hg] Jovany Trill WAREHOUSE UNLOADER.[employer]ER Work Phone: [facility] 11-21-2022 09:34-0500 Body height 180.3 cm Najma Sheets DO Work Phone: [facility] 11-21-2022 09:34-0500 Body temperature 98.29 [degF] Najma Sheets DO Work Phone: [facility] 11-21-2022 09:34-0500 Body weight 131.91 kg Najma Sheets DO Work Phone: [facility] 11-21-2022 09:34-0500 Diastolic blood pressure 66 mm[Hg] Najma Sheets DO Work Phone: [facility] 11-21-2022 09:34-0500 Heart rate 84 /min Najma Sheets DO Work Phone: [facility] 11-21-2022 09:34-0500 Respiratory rate 18 /min Najma Sheets DO Work Phone: [facility] 11-21-2022 09:34-0500 SaO2% (BldA) [Mass fraction] 97 % Najma Sheets DO Work Phone: [facility] 11-21-2022 09:34-0500 Systolic blood pressure 114 mm[Hg] Najma Sheets DO Work Phone: [facility] 08-21-2022 14:08-0400 Diastolic blood pressure 77 mm[Hg] Martell Wtaerman MD Work Phone: [facility] 08-21-2022 14:08-0400 Heart rate 78 /min Martell Waterman MD Work Phone: [facility] 08-21-2022 14:08-0400 Respiratory rate 18 /min Martell Waterman MD Work Phone: [facility] 08-21-2022 14:08-0400 SaO2% (BldA) [Mass fraction] 100 % Martell Waterman MD Work Phone: [facility] 08-21-2022 14:08-0400 Systolic blood pressure 117 mm[Hg] Martell Waterman MD Work Phone: [facility] 08-21-2022 12:15-0400 Body height 180.3 cm Cheyanne Farah DO Work Phone: [facility] 08-21-2022 12:15-0400 Body weight 131.09 kg Cheyanne Farah DO Work Phone: [facility] 06-20-2022 09:39-0400 Body temperature 96.91 [degF] Martell Waterman MD Work Phone: [facility] 06-20-2022 09:39-0400 Body weight 126.51 kg Martell Waterman MD Work Phone: [facility] 06-20-2022 09:39-0400 Diastolic blood pressure 75 mm[Hg] Martell Waterman MD Work Phone: [facility] 06-20-2022 09:39-0400 Heart rate 77 /min Martell Waterman MD Work Phone: [facility] 06-20-2022 09:39-0400 SaO2% (BldA) [Mass fraction] 98 % Martell Waterman MD Work Phone: [facility] 06-20-2022 09:39-0400 Systolic blood pressure 137 mm[Hg] Martell Waterman MD Work Phone: [facility] 06-02-2022 13:12-0400 Body height 181.2 cm Eduardo Vasques MD Work Phone: [facility] 06-02-2022 13:12-0400 Body temperature 97.9 [degF] Eduardo Vasques MD Work Phone: [facility] 06-02-2022 13:12-0400 Body weight 124.83 kg Eduardo Vasques MD Work Phone: [facility] 06-02-2022 13:12-0400 Diastolic blood pressure 55 mm[Hg] Eduardo Vasques MD Work Phone: [facility] 06-02-2022 13:12-0400 Heart rate 82 /min Eduardo Vasques MD Work Phone: [facility] 06-02-2022 13:12-0400 Respiratory rate 18 /min Eduardo Vasques MD Work Phone: [facility] 06-02-2022 13:12-0400 SaO2% (BldA) [Mass fraction] 99 % Eduardo Vasques MD Work Phone: [facility] 06-02-2022 13:12-0400 Systolic blood pressure 107 mm[Hg] Eduardo Vasques MD Work Phone: [facility] 05-19-2022 09:55-0400 Body temperature 98.6 [degF] Martell Waterman MD Work Phone: [facility] 05-19-2022 09:55-0400 Body weight 123.83 kg Martell Waterman MD Work Phone: [facility] 05-19-2022 09:55-0400 Diastolic blood pressure 64 mm[Hg] Martell Waterman MD Work Phone: [facility] 05-19-2022 09:55-0400 Heart rate 68 /min Martell Waterman MD Work Phone: [facility] 05-19-2022 09:55-0400 Respiratory rate 20 /min Martell Waterman MD Work Phone: [facility] 05-19-2022 09:55-0400 SaO2% (BldA) [Mass fraction] 99 % Martell Waterman MD Work Phone: [facility] 05-19-2022 09:55-0400 Systolic blood pressure 101 mm[Hg] Martell Waterman MD Work Phone: [facility] 05-02-2022 10:50-0400 Body height 182.9 cm Najma Sheets DO Work Phone: [facility] 05-02-2022 10:50-0400 Body temperature 98.29 [degF] Najma Sheets DO Work Phone: [facility] 05-02-2022 10:50-0400 Body weight 122.02 kg Najma Sheets DO Work Phone: [facility] 05-02-2022 10:50-0400 Diastolic blood pressure 64 mm[Hg] Najma Sheets DO Work Phone: [facility] 05-02-2022 10:50-0400 Heart rate 80 /min Najma Sheets DO Work Phone: [facility] 05-02-2022 10:50-0400 SaO2% (BldA) [Mass fraction] 98 % Najma Sheets DO Work Phone: [facility] 05-02-2022 10:50-0400 Systolic blood pressure 108 mm[Hg] Najma Sheets DO Work Phone: [facility] 05-01-2022 10:52-0400 Body weight 122.92 kg Martell Waterman MD Work Phone: [facility] 05-01-2022 10:52-0400 Diastolic blood pressure 67 mm[Hg] Martell Waterman MD Work Phone: [facility] 05-01-2022 10:52-0400 Heart rate 92 /min Martell Waterman MD Work Phone: [facility] 05-01-2022 10:52-0400 SaO2% (BldA) [Mass fraction] 98 % Martell Waterman MD Work Phone: [facility] 05-01-2022 10:52-0400 Systolic blood pressure 108 mm[Hg] Martell Waterman MD Work Phone: [facility] Encounters Encounter Date Encounter Type Care Provider Facility Start: 06-02-2025 End: 06-02-2025 Emergency department patient visit Dr. Najma Bloom DO Work Phone: -Emergency Department Work Phone: Start: 06-01-2025 End: 06-01-2025 ambulatory NAJMA C SHEETS Facility:[facility] Start: 05-29-2025 End: 05-29-2025 Refill Najma C Sheets DO Work Phone: [facility] Comment on above: Refill Request Start: 05-15-2025 End: 05-15-2025 Refill Najma C Sheets DO Work Phone: [facility] Comment on above: Refill Request Start: 05-09-2025 End: 05-09-2025 Telephone encounter Najma C Sheets DO Work Phone: [facility] Comment on above: medication coverage (Metformin prior auth - Approved) Start: 05-07-2025 End: 05-08-2025 Refill Najma C Sheets DO Work Phone: [facility] Comment on above: Refill Request Start: 05-01-2025 End: 05-01-2025 Telephone encounter Najma C Sheets DO Work Phone: [facility] Start: 04-27-2025 End: 04-27-2025 Patient encounter procedure Osiris Paris APRN.MI[employer] Work Phone: Cardiology Comment on above: Dyslipidemia (Primar y Dx); Essential hypertension; Hypertriglyceridemia; Paroxysmal atrial fibrillation (HCC); Stage 3b chronic kidney disease (HCC); Diffuse large B-cell lymphoma of intra-abdominal lymph nodes (HCC) Start: 04-27-2025 End: 04-27-2025 ambulatory NAJMA C SHEETS Facility:[facility] Start: 04-24-2025 End: 04-24-2025 Refill Najma C Sheets DO Work Phone: [facility] Comment on above: Refill Request Start: 04-24-2025 End: 04-24-2025 Refill Najma C Sheets DO Work Phone: [facility] Comment on above: Refill Request Start: 04-06-2025 End: 04-06-2025 Refill Najma C Sheets DO Work Phone: [facility] Comment on above: Refill Request Start: 03-28-2025 End: 03-28-2025 Telephone encounter Najma C Sheets DO Work Phone: [facility] Comment on above: Medication Question Start: 03-06-2025 End: 03-06-2025 ambulatory Lab[facility] [facility] Work Phone: Hematology/Oncology Comment on above: Diffuse large B-cell lymphoma of extranodal site (Primary Dx) Start: 02-28-2025 End: 04-30-2025 Follow-up encounter Najma C Sheets DO Work Phone: [facility] Start: 02-28-2025 End: 02-28-2025 ambulatory NAJMA C SHEETS Facility:[facility] Start: 02-28-2025 End: 02-28-2025 Patient encounter procedure Najma C Sheets DO Work Phone: [facility] Comment on above: Type 2 diabetes roney itus with diabetic polyneuropathy, without long-term current use of insulin (HCC) (Primary Dx); Essential hypertension; Obesity, Class II, BMI 35-39.9; Screening for colon cancer Start: 02-07-2025 End: 02-07-2025 Refill Najma C Sheets DO Work Phone: [facility] Comment on above: Refill Request Start: 01-25-2025 End: 01-25-2025 MyChart Refill CP Epi Polanco MD Work Phone: [facility] Comment on above: Medication Refill Ap proved Refill Request Start: 01-06-2025 End: 01-06-2025 Refill Najma C Sheets DO Work Phone: [facility] Comment on above: Refill Request Start: 12-12-2024 End: 12-13-2024 ambulatory Martell Waterman MD Work Phone: Hematology/Oncology Comment on above: Diffuse large B-cell lymphoma of extranodal site (Primary Dx) Refill Request Start: 12-12-2024 End: 12-12-2024 Patient encounter procedure Martell Waterman MD Work Phone: Hematology/Oncology Start: 12-05-2024 End: 12-05-2024 Subsequent hospital visit by physician [facility] Cat Scan Comment on above: Diffuse large B-cell 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) [C83.38] Start: 12-05-2024 End: 12-05-2024 ambulatory Lab[facility] [facility] Work Phone: Hematology/Oncology Comment on above: Diffuse large B-cell 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); Stage 4 chronic kidney disease (HCC); Vitamin D deficiency Start: 11-29-2024 End: 11-29-2024 Patient encounter procedure Najma C Sheets DO Work Phone: [facility] Comment on above: Type 2 diabetes roney itus with chronic kidney disease, with long-term current use of insulin, unspecified CKD stage (HCC) (Primary Dx); Left-sided chest pain; Screening for colon cancer Start: 11-29-2024 End: 11-29-2024 ambulatory NAJMA C SHEETS Facility:[facility] Start: 11-27-2024 End: 11-28-2024 Refill Najma C Sheets DO Work Phone: [facility] Comment on above: Refill Request Start: 11-03-2024 End: 11-03-2024 Refill Najma C Sheets DO Work Phone: [facility] Comment on above: Refill Request Start: 10-26-2024 End: 10-27-2024 Refill Najma C Sheets DO Work Phone: [facility] Comment on above: Refill Request Start: 09-30-2024 End: 09-30-2024 Refill Epi Polanco MD Work Phone: [facility] Comment on above: Refill Request Start: 09-16-2024 End: 09-16-2024 ambulatory NAJMA C SHEETS Facility:[facility] Start: 09-16-2024 End: 09-16-2024 Patient encounter procedure Jennifer Michele DO Work Phone: Orthopaedics Comment on above: Post-operative state (Primary Dx); S/P arthroscopic knee surgery; Synovitis and tenosynovitis of knee Start: 08-29-2024 End: 08-30-2024 E-mail encounter from caregiver Epi Polanco MD Work Phone: [facility] Start: 08-29-2024 End: 08-30-2024 Patient encounter procedure Epi Polanco MD Work Phone: [facility] Comment on above: Appointment Cancella tion Request Type 2 diabetes roney itus with chronic kidney disease, with long-term current use of insulin, unspecified CKD stage (HCC) (Primary Dx); History of amputation of right great toe (HCC); Obesity, Class II, BMI 35-39.9 Start: 08-29-2024 End: 08-29-2024 ambulatory NAJMA C SHEETS Facility:[facility] Start: 08-26-2024 End: 08-26-2024 Orders Only Epi Polanco MD Work Phone: [facility] Comment on above: Other proteinuria (P rimary Dx); Stage 4 chronic kidney disease (HCC); Vitamin D deficiency; Anemia of renal disease; Secondary hyperparathyroidism of renal origin (HCC) Start: 08-16-2024 End: 08-16-2024 ambulatory VARGAS BENTON Facility:[facility] Start: 08-16-2024 End: 08-16-2024 Patient encounter procedure Vargas Benton DO Work Phone: Cardiology Comment on above: Coronary artery calc ification seen on CT scan (Primary Dx); Paroxysmal atrial fibrillation (HCC); Hypertension, essential; Hyperlipidemia, mixed; On apixaban therapy Start: 08-12-2024 End: 08-12-2024 Telephone encounter Najma C Sheets DO Work Phone: [facility] Comment on above: Patient Update (Note to return to work ) Start: 08-12-2024 End: 08-12-2024 ambulatory NAJMA C SHEETS Facility:[facility] Start: 08-12-2024 End: 08-12-2024 Patient encounter procedure Aide Quintanilla PA-C Work Phone: Orthopaedics Comment on above: Post-operative state (Primary Dx); S/P arthroscopic knee surgery Start: 08-08-2024 End: 08-08-2024 Telephone encounter Najma C Sheets DO Work Phone: [facility] Comment on above: Patient Question Start: 07-31-2024 End: 08-01-2024 Refill Najma C Sheets DO Work Phone: [facility] Comment on above: Refill Request Start: 07-28-2024 End: 07-29-2024 Telephone encounter Aide Quintanilla PA-C Work Phone: Orthopaedics Start: 07-26-2024 End: 07-26-2024 ambulatory JENNIFER MICHELE Facility:[facility] Start: 07-22-2024 End: 07-22-2024 Admission to establishment Pacc Girard 1 Work Phone: Pre Anesthesia Start: 07-22-2024 End: 07-22-2024 ambulatory NAJMA C SHEETS Facility:[facility] Start: 07-22-2024 End: 07-22-2024 Anesthesia consultation Pacc Suellen 1 Work Phone: Pre Anesthesia Comment on above: Pre-operative examin ation (Primary Dx); Paroxysmal atrial fibrillation (HCC); Coronary artery disease involving newtok coronary artery of newtok heart without angina pectoris; Essential hypertension; Thrombocytopenia (HCC); Anemia, unspecified type; Stage 3b chronic kidney disease (HCC); Leg swelling; Depression, unspecified depression type; BPH associated with nocturia; Diffuse large B-cell lymphoma of intra-abdominal lymph nodes (HCC); Hyperlipidemia, mixed; Hyperparathyroidism (HCC); Physical debility; Class 1 obesity due to excess calories with serious comorbidity and body mass index (BMI) of 33.0 to 33.9 in adult Start: 07-22-2024 End: 07-22-2024 Preprocedural examination done Pacc Suellen 1 Work Phone: [facility] Start: 07-21-2024 End: 07-21-2024 Refill Najma C Sheets DO Work Phone: [facility] Comment on above: Refill Request Start: 07-20-2024 End: 07-22-2024 Telephone encounter Najma C Sheets DO Work Phone: [facility] Comment on above: Patient Update Start: 07-18-2024 End: 07-18-2024 Patient encounter procedure Najma Bloom DO Work Phone: [facility] Comment on above: Tear of left meniscu s as current injury, subsequent encounter (Primary Dx); Type 2 diabetes mellitus with diabetic polyneuropathy, without long-term current use of insulin (HCC); Essential hypertension; Hyperlipidemia, mixed; History of amputation of right great toe ([facility]); Class 1 obesity with body mass index (BMI) of 34.0 to 34.9 in adult, unspecified obesity type, unspecified whether serious comorbidity present Start: 07-18-2024 End: 07-18-2024 ambulatory NAJMASTEPHANIE BLOOM Facility:[facility] Start: 07-15-2024 End: 07-15-2024 ambulatory Osiris Cartwright RN Work Phone: [employer] Start: 07-15-2024 End: 07-15-2024 Home visit Osiris Cartwright RN Work Phone: [employer] Comment on above: Transition Of Care ( TCM f/u) Weekly phone contact (Recurring) for Transitional Care Management, Weekly phone contact (Recurring) for Transitional Care Management Start: 07-14-2024 End: 07-14-2024 Orders Only Jennifer Michele DO Work Phone: Orthopaedics Comment on above: Tear of medial menis cus of left knee, current, unspecified tear type, initial encounter (Primary Dx) Start: 07-13-2024 End: 07-13-2024 ambulatory NAJMASTEPHANIE BLOOM Facility:[facility] Start: 07-13-2024 End: 07-13-2024 Patient encounter procedure GisselZenobia Michele DO Work Phone: Orthopaedics Comment on above: Acute pain of left k nee (Primary Dx); Primary osteoarthritis of left knee; Tear of medial meniscus of left knee, current, unspecified tear type, initial encounter Start: 07-11-2024 End: 07-11-2024 Refill Najma Bloom DO Work Phone: [facility] Comment on above: Refill Request Medication Refill Ap proved Start: 07-07-2024 End: 07-07-2024 ambulatory Osiris Cartwright RN Work Phone: [facility] [employer] Start: 07-07-2024 End: 07-07-2024 Home visit Osiris Cartwright RN Work Phone: [employer] Comment on above: Transition Of Care ( TCM f/u) Weekly phone contact (Recurring) for Transitional Care Management Start: 06-23-2024 End: 06-23-2024 Patient encounter procedure Najma Bloom DO Work Phone: [facility] Comment on above: History of amputatio n of right great toe (HCC) (Primary Dx); Acute medial meniscal tear, left, subsequent encounter; Acute pain of left knee; Type 2 diabetes mellitus with diabetic polyneuropathy, without long-term current use of insulin (HCC); Class 1 obesity due to excess calories with serious comorbidity and body mass index (BMI) of 34.0 to 34.9 in adult Start: 06-23-2024 End: 07-25-2024 ambulatory Osiris Cartwright RN Work Phone: [employer] Start: 06-23-2024 End: 07-25-2024 Home visit Osiris Cartwright RN Work Phone: [employer] Comment on above: Transition Of Care ( TCU D/C 06/13/24) Weekly phone contact (Recurring) for Transitional Care Management Start: 06-23-2024 End: 06-24-2024 Telephone encounter Najma Bloom DO Work Phone: [facility] Comment on above: Patient Question Start: 06-22-2024 End: 06-22-2024 ambulatory Lab[facility] [facility] Work Phone: Hematology/Oncology Comment on above: Malignant neoplasm ( HCC) (Primary Dx); Acute pain of left knee Start: 06-20-2024 End: 06-20-2024 Refill Epi Polanco MD Work Phone: [facility] Comment on above: Refill Request Start: 06-20-2024 End: 06-20-2024 Refill Najma Bloom DO Work Phone: [facility] Comment on above: Refill Request Start: 06-17-2024 End: 06-17-2024 Telephone encounter Monie Perez RN Work Phone: [facility] Comment on above: Home Care (Notificat ion of non-admission to home health.) Start: 06-17-2024 End: 06-17-2024 Home visit Aurora South RN Work Phone: [facility] Comment on above: SN NO ADMIT Refill Request Start: 06-15-2024 End: 06-15-2024 Telephone encounter Tanna Mansfield LPN Work Phone: [facility] Comment on above: Home Care (Reschedul e ) Home Care Start: 06-15-2024 End: 06-15-2024 Home visit Osiris Cartwright RN Work Phone: [facility] [employer] Comment on above: Transition Of Care ( TCU D/C 06/13/24) Initial phone contact for Transitional Care Management SN [facility] Start: 06-15-2024 End: 06-15-2024 ambulatory Osiris Cartwright RN Work Phone: [employer] [employer] Start: 06-15-2024 End: 06-15-2024 Patient encounter procedure Jennifer Michele DO Work Phone: Orthopaedics Comment on above: Chronic pain of left knee (Primary Dx); Acute pain of left knee; Inflammatory arthritis Start: 06-14-2024 End: 06-14-2024 ambulatory Evelin Zendejas RN [facility] [employer] Start: 06-14-2024 End: 06-14-2024 Home visit Evelin Zendejas RN [employer] Comment on above: Transition Of Care ( Discharged from [facility] TCU to Home with [facility]) Start: 06-14-2024 End: 06-14-2024 Telephone encounter Osiris Carbajal RN Work Phone: [facility] Comment on above: Home Care Arrangemen ts Start: 06-13-2024 End: 06-13-2024 Telephone encounter Laura Smalls Work Phone: [facility] Comment on above: Home Care (CONFIRMAT ION CALL) Start: 06-10-2024 Telephone encounter Tanna Mansfield JD Work Phone: [facility] Comment on above: Home Care (MD ngozi chirinos) Start: 06-07-2024 ambulatory Evelin Zendejas RN [facility] Start: 06-07-2024 Home visit Evelin Zendejas RN [facility] Comment on above: Transition Of Care ( [facility] Discharge to [facility] TCU) Start: 06-06-2024 End: 06-13-2024 Evaluation and management of inpatient NAJMA BLOOM Facility:[facility] Start: 05-25-2024 End: 06-06-2024 Evaluation and management of inpatient AMRIT IVON Facility:[facility] Start: 05-25-2024 Telephone encounter Joan bonilla MD Work Phone: [facility] Adult Comment on above: Hospital To Hospital Forms ([facility] Short Term Disability) Start: 05-25-2024 End: 05-25-2024 Emergency department patient visit Najma Robert Facility:[facility] Start: 05-23-2024 ambulatory Osiris Cartwright RN AG [employer] Start: 05-23-2024 Home visit Osiris Cartwright RN [employer] [employer] Comment on above: Transition Of Care ( [facility] [place] D/C 05/19/24) Initial phone contact for Transitional Care Management Start: 05-20-2024 ambulatory Jigna Sonnh alter [facility] Start: 05-20-2024 Telephone encounter Najma Bloom DO Work Phone: [facility] Comment on above: Patient Question Transition Of Care ( TCM Pharmacy-Hospital discharge 05/19/24/) Start: 05-16-2024 Telephone encounter Najma Salomon Sheets DO Work Phone: [facility] Comment on above: Patient Question Start: 05-12-2024 End: 05-19-2024 Evaluation and management of inpatient XOCHITL VIDES Facility:[facility] Start: 05-11-2024 Telephone encounter Dayami rosales MD Work Phone: Provider Adult Comment on above: Hospital To Hospital Start: 05-09-2024 Refill Epi majano MD Work Phone: [facility] [place] Comment on above: Refill Request Start: 04-19-2024 End: 04-19-2024 Office outpatient visit 25 minutes Epi Polanco MD Work Phone: [facility] Comment on above: Stage 4 chronic kidn ey disease (HCC) (Primary Dx); Anemia of renal disease; Dietary counseling and surveillance; Edema of lower extremity; Vitamin D deficiency; Hypertension, essential; Hyperuricemia; Other proteinuria Start: 04-18-2024 End: 04-18-2024 ambulatory Lab/[place] [facility] Work Phone: Hematology/Oncology Comment on above: Diffuse large B-cell 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) (Primary Dx); Anemia of renal disease; Stage 3b chronic kidney disease (HCC); Other proteinuria; Hyperlipidemia, mixed Start: 04-15-2024 Refill Najma C She ets DO Work Phone: [facility] Start: 04-06-2024 Refill Najma C She ets DO Work Phone: [facility] Comment on above: Refill Request Start: 03-17-2024 Refill Najma C She ets DO Work Phone: [facility] Comment on above: Refill Request Start: 03-15-2024 Refill Najma C She ets DO Work Phone: [facility] Comment on above: Refill Request Start: 03-15-2024 End: 03-15-2024 Patient encounter procedure Yamilka Lares MD Work Phone: Urology Comment on above: Hydronephrosis, unsp ecified hydronephrosis type (Primary Dx) Start: 03-09-2024 Refill Najma C She ets DO Work Phone: [facility] Comment on above: Refill Request Start: 03-07-2024 Refill Najma C She ets DO Work Phone: [facility] Comment on above: Refill Request Start: 03-04-2024 End: 03-04-2024 Patient encounter procedure Martell Waterman MD Work Phone: Hematology/Oncology Start: 03-04-2024 End: 03-04-2024 ambulatory Lab/[facility] Work Phone: Hematology/Oncology Comment on above: Stage 3b chronic kid swathi disease (HCC); Vitamin D deficiency; Diffuse large B-cell 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) Diffuse large B-cell 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) (Primary Dx); Diffuse large B-cell lymphoma of extranodal site (HCC) Start: 03-03-2024 Refill Najma C She ets DO Work Phone: [facility] Comment on above: Refill Request Start: 02-29-2024 Refill Najma C She ets DO Work Phone: [facility] Comment on above: Refill Request Start: 02-25-2024 End: 02-25-2024 Subsequent hospital visit by physician Ct [facility] Cat Scan Comment on above: NHL unspecified type (HCC) [C85.90] Start: 02-18-2024 End: 02-18-2024 Patient encounter procedure Najma Salomon Sheets DO Work Phone: [facility] Comment on above: Type 2 diabetes roney itus with diabetic polyneuropathy, without long-term current use of insulin (HCC) (Primary Dx); Chronic pain syndrome; Hypertension, essential Start: 02-15-2024 End: 02-15-2024 Patient encounter procedure Osiris Paris APRN.[employer] Work Phone: Cardiology Comment on above: Hyperlipidemia, mixe d (Primary Dx); Hypertension, essential; Paroxysmal atrial fibrillation (HCC); Coronary artery disease involving newtok coronary artery of newtok heart without angina pectoris Start: 02-03-2024 Refill Najma Sanford ets DO Work Phone: [facility] Comment on above: Refill Request Start: 01-11-2024 Refill Xochitl heath [employer]HOU[employer] Work Phone: Cardiology Comment on above: Refill Request Start: 12-30-2023 End: 12-30-2023 Emergency department patient visit NAJMA PATTON [facility] Start: 12-25-2023 ambulatory [facility] Comment on above: ED OUTREACH (ED OUTR /12/23/2023/[place] ) Start: 12-25-2023 Telephone encounter Najma Bloom DO Work Phone: [facility] Comment on above: Patient Question Start: 12-23-2023 End: 12-23-2023 Patient encounter procedure Xochitl Lena [employer] Work Phone: [facility] Comment on above: Dizziness (Primary D x); Hypotension, unspecified hypotension type Start: 12-17-2023 Telephone encounter Najma Bloom DO Work Phone: [facility] Comment on above: Patient Question Start: 12-16-2023 End: 12-16-2023 Office outpatient visit 25 minutes Epi Polanco MD Work Phone: [facility] Comment on above: Stage 3b chronic kid swathi disease (HCC) (Primary Dx); Chronic kidney disease (CKD) stage G3b/A3, moderately decreased glomerular filtration rate (GFR) between 30-44 mL/min/1.73 square meter and albuminuria creatinine ratio greater than 300 mg/g (HCC); Vitamin D deficiency; Hyperkalemia; Hypertension, essential; Hyperuricemia; Other proteinuria; Anemia of renal disease; Chronic kidney disease (CKD) stage G3b/A2, moderately decreased glomerular filtration rate (GFR) between 30-44 mL/min/1.73 square meter and albuminuria creatinine ratio between 30-299 mg/g (HCC); Diabetes mellitus with nephropathy (HCC); Dietary counseling and surveillance Start: 12-16-2023 End: 12-16-2023 ambulatory Lab/[place] [facility] Work Phone: Hematology/Oncology Comment on above: Malignant neoplasm ( HCC) (Primary Dx); Stage 3b chronic kidney disease (HCC); Chronic kidney disease (CKD) stage G3b/A3, moderately decreased glomerular filtration rate (GFR) between 30-44 mL/min/1.73 square meter and albuminuria creatinine ratio greater than 300 mg/g (HCC); Vitamin D deficiency; Hyperkalemia; Hypertension, essential; Hyperuricemia; Other proteinuria Start: 12-06-2023 Refill Najma C She ets DO Work Phone: [facility] Comment on above: Refill Request Start: 11-30-2023 End: 11-30-2023 ambulatory Lab[facility] Work Phone: Hematology/Oncology Comment on above: NHL unspecified type (HCC) Start: 11-24-2023 End: 11-24-2023 ambulatory [facility] Facility:[facility] Start: 10-09-2023 End: 10-09-2023 Refill Najma C Sheets DO Work Phone: [facility] Comment on above: Refill Request Type 2 diabetes roney itus with diabetic polyneuropathy, without long-term current use of insulin (HCC) (Primary Dx); Leg swelling; Hyperlipidemia, mixed; Obesity, Class III, BMI >= 40 Start: 09-07-2023 Refill Najma C She ets DO Work Phone: [facility] Comment on above: Refill Request Start: 08-25-2023 Refill Najma C She ets DO Work Phone: [facility] Comment on above: Refill Request Start: 08-17-2023 Refill Cordelia Floyd KENIA [facility] Comment on above: Refill Request Start: 08-11-2023 End: 08-11-2023 ambulatory Lab/[place] [facility] Work Phone: Hematology/Oncology Comment on above: Malignant neoplasm ( HCC) (Primary Dx); Anemia of renal disease; Leg swelling; Stage 3b chronic kidney disease (HCC); Vitamin D deficiency; Other proteinuria; Screening for prostate cancer; Hypertension, essential Start: 07-14-2023 Refill Epi majano MD Work Phone: [facility] Comment on above: Refill Request parking placard Start: 07-10-2023 Refill Najma C She ets DO Work Phone: [facility] Start: 07-08-2023 Telephone encounter Martell Waterman MD Work Phone: Hematology/Oncology Comment on above: Insurance Authorizat ion Start: 07-08-2023 End: 07-08-2023 ambulatory Lab/[place] [facility] Work Phone: Hematology/Oncology Comment on above: Thrombocytopenia (HC C) (Primary Dx); Diffuse large B-cell lymphoma of intra-abdominal lymph nodes (HCC) Start: 06-30-2023 Telephone encounter Martell Waterman MD Work Phone: Hematology/Oncology Comment on above: Patient Update Start: 06-08-2023 Refill Najma C Claribel ets DO Work Phone: [facility] Comment on above: Refill Request Start: 06-03-2023 End: 06-03-2023 Office outpatient visit 40 minutes Epi Polanco MD Work Phone: [facility] Comment on above: Stage 3b chronic kid swathi disease (HCC) (Primary Dx); Leg swelling; Anemia of renal disease; Chronic kidney disease (CKD) stage G3b/A3, moderately decreased glomerular filtration rate (GFR) between 30-44 mL/min/1.73 square meter and albuminuria creatinine ratio greater than 300 mg/g (HCC); Diabetes mellitus with nephropathy (HCC); Dietary counseling and surveillance; Edema of lower extremity; Vitamin D deficiency; Hyperkalemia; Hypertension, essential; Hyperuricemia; Other proteinuria Start: 05-30-2023 Refill Najma C She ets DO Work Phone: [facility] Comment on above: Refill Request Start: 05-26-2023 End: 05-26-2023 Patient encounter procedure Najma Salomon Sheets DO Work Phone: [facility] Comment on above: Type 2 diabetes roney itus with diabetic polyneuropathy, without long-term current use of insulin (HCC) (Primary Dx); Leg swelling; Obesity, Class III, BMI >= 40 Start: 05-18-2023 Refill Najma C Claribel ets DO Work Phone: [facility] Comment on above: Refill Request Start: 05-05-2023 Telephone encounter Najma Salomon Sheets DO Work Phone: [facility] Comment on above: Results Start: 05-04-2023 Refill Najma C Claribel ets DO Work Phone: [facility] Comment on above: Refill Request Start: 05-04-2023 Refill Najma Sanford ets DO Work Phone: [facility] Comment on above: Refill Request Start: 04-26-2023 Refill Najma Sanford ets DO Work Phone: [facility] Comment on above: Refill Request Start: 04-17-2023 Refill Vargas Benton DO Work Phone: Cardiology Comment on above: Refill Request Start: 04-16-2023 End: 04-16-2023 Patient encounter procedure Vargas Benton DO Work Phone: Cardiology Comment on above: Paroxysmal atrial fi brillation (HCC) (Primary Dx); Hypertension, essential; Hyperlipidemia, mixed; Coronary artery calcification seen on CT scan Start: 04-15-2023 Refill Najma Sanford ets DO Work Phone: [facility] Comment on above: Refill Request Start: 04-09-2023 Telephone encounter Najma Salomon Sheets DO Work Phone: [facility] Comment on above: Disability Evaluatio n (Disability paperwork for [facility]//[facility] FAX [phone] AND [phone]. 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); Hyperkalemia Start: 03-24-2023 Telephone encounter Najma C Sheets DO Work Phone: [facility] Comment on above: Lab Orders Start: 03-05-2023 Telephone encounter Najma C Sheets DO Work Phone: [facility] Comment on above: Patient Update Start: 03-03-2023 Telephone encounter Najma C Sheets DO Work Phone: [facility] Comment on above: records Start: 03-02-2023 End: 03-02-2023 Patient encounter procedure Najma C Sheets DO Work Phone: [facility] Comment on above: Paroxysmal atrial fi brillation (HCC) (Primary Dx); Type 2 diabetes mellitus with diabetic polyneuropathy, without long-term current use of insulin (HCC); Diffuse large B-cell lymphoma of intra-abdominal lymph nodes (HCC) Start: 02-27-2023 Telephone encounter Najma C Sheets DO Work Phone: [facility] Comment on above: Patient Question Start: 02-26-2023 End: 02-26-2023 Subsequent hospital visit by physician Stress Lab [facility] Work Phone: Cardiology Lab Comment on above: Paroxysmal atrial fi brillation (HCC) [I48.0] Start: 02-23-2023 Telephone encounter Najma C Sheets DO Work Phone: [facility] Comment on above: Forms ([employer] Restrictions Form) Start: 02-20-2023 End: 02-20-2023 Patient encounter procedure Najma C Sheets DO Work Phone: [facility] Comment on above: Type 2 diabetes roney itus with diabetic polyneuropathy, with long-term current use of insulin (HCC) (Primary Dx); Physical deconditioning; Dyspnea on exertion; Atrial fibrillation with RVR (HCC); Obesity, Class III, BMI >= 40; Urinary frequency; Acute cystitis with hematuria Start: 02-19-2023 End: 02-19-2023 ambulatory Martell Waterman MD Work Phone: Hematology/Oncology Comment on above: 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) Start: 02-19-2023 End: 02-19-2023 Patient encounter procedure Martell Waterman MD Work Phone: [facility] Start: 02-16-2023 End: 02-16-2023 ambulatory [facility] [facility] Work Phone: Hematology/Oncology Comment on above: Thrombocytopenia (HC C) (Primary Dx) Start: 02-13-2023 ambulatory Ernesto Dailey RN AG VN S Start: 02-13-2023 Follow-up encounter Ernesto Dailey R N [facility] [employer] Comment on above: Transition Of Care ( Follow Up Call) Start: 02-11-2023 Telephone encounter Najma Bloom DO Work Phone: [facility] Comment on above: Forms ([employer] Benefits Claim# [id number]) Start: 02-09-2023 Refill Ely Burr W[employer]HOUSE UN[employer]ER.[employer] Work Phone: Cardiology Comment on above: Refill Request Start: 02-06-2023 End: 02-06-2023 Office outpatient visit 25 minutes Epi Polanco MD Work Phone: [facility] Comment on above: Stage 3a chronic kid swathi disease (HCC) (Primary Dx); Anemia of renal disease; Diabetes mellitus with nephropathy (HCC); Dietary counseling and surveillance; Vitamin D deficiency; Hypertension, essential; Hyperuricemia; Other proteinuria Start: 02-04-2023 Refill Najma Sanford ets DO Work Phone: [facility] Comment on above: Refill Request Results Start: 02-03-2023 End: 02-03-2023 Patient encounter procedure Cheyanne Farah DO Work Phone: [facility] Comment on above: Retention, urine (Pr imary Dx); Hydronephrosis with renal and ureteral calculus obstruction Start: 01-27-2023 Telephone encounter Najma Bloom DO Work Phone: [facility] Comment on above: Forms ([employer]ability Claims paperwork) Start: 01-26-2023 End: 01-26-2023 Patient encounter procedure Najma Salomon Sheets DO Work Phone: [facility] Comment on above: Atrial fibrillation with RVR (HCC) (Primary Dx); Ureteral obstruction, right; Obesity, Class II, BMI 35-39.9 Start: 01-22-2023 ambulatory Ernesto Dailey RN AG VN S Start: 01-22-2023 Follow-up encounter Ernesto Capone N AG [employer] Comment on above: Transition Of Care ( Follow Up Call) Start: 01-17-2023 Telephone encounter Ashwini jarvis WAREHOUSE UN[employer]ER[employer] Work Phone: [facility] Comment on above: Appointment Start: 01-16-2023 Patient Outreach Ernesto Tillman G [employer] Comment on above: Transition Of Care ( Initial Outreach ([place] [facility] Start: 01-15-2023 Refill Najma Sanford ets DO Work Phone: [facility] Comment on above: Refill Request Start: 01-13-2023 Telephone encounter Cordelia Floyd KENIA [facility] Comment on above: Patient Question (Sherin prieto to know he is in hospital. ) Start: 01-08-2023 Telephone encounter Najma Bloom DO Work Phone: [facility] Comment on above: Forms (Amaury romero Short Term Disability Paperwork) Start: 01-05-2023 Telephone encounter Najma Bloom DO Work Phone: [facility] Comment on above: FMLA Paperwork (FMLA Paperwork for son) Start: 12-24-2022 End: 12-24-2022 Patient encounter procedure Cheyanne Farah DO Work Phone: [facility] Comment on above: Hydronephrosis with renal and ureteral calculus obstruction (Primary Dx); Ureteral obstruction, left; Retention, urine Start: 12-22-2022 End: 12-22-2022 Patient encounter procedure Najma Salomon Sheets DO Work Phone: [facility] Comment on above: COVID (Primary Dx); Obstruction of right ureter; Acute kidney injury (HCC); Type 2 diabetes mellitus without complication, with long-term current use of insulin (HCC); Nausea; Obesity, Class II, BMI 35-39.9 Start: 12-19-2022 Patient Outreach Ernesto Tillman G [employer] Comment on above: Transition Of Care ( Initial Outreach ([facility] discharged 12/18/22)) Start: 12-17-2022 Telephone encounter Cheyanne varma DO Work Phone: Urology Comment on above: Patient Question (Pt called asking for an earlier appt than 12/24/22. Stated he did not want to talk to scheduling/Pt wanted message to go to Dr Farah.//) Patient Update Start: 11-25-2022 End: 11-25-2022 Refill Najma Salomon Sheets DO Work Phone: [facility] Comment on above: Refill Request Acute otitis media, left (Primary Dx); Acute non-recurrent frontal sinusitis Start: 11-21-2022 End: 11-21-2022 Patient encounter procedure Najma Salomon Sheets DO Work Phone: [facility] Comment on above: Type 2 diabetes roney itus with diabetic polyneuropathy, with long-term current use of insulin (HCC) (Primary Dx); Frequent urination; Acute cystitis with hematuria; Hypertension, essential; Hyperlipidemia, mixed; ED (erectile dysfunction) of organic origin; Neuropathy involving both lower extremities; Tachycardia; Urge incontinence of urine; Obesity, Class III, BMI >= 40; custodial use of drug Start: 10-28-2022 Telephone encounter Cordelia Floyd KENIA [facility] Comment on above: Patient Update Start: 10-06-2022 Refill Najma Sanford ets DO Work Phone: [facility] Comment on above: Refill Request Start: 09-05-2022 Refill Najma Sanford ets DO Work Phone: [facility] Comment on above: Refill Request Start: 08-21-2022 End: 08-21-2022 ambulatory Martell Waterman MD Work Phone: Hematology/Oncology Comment on above: Diffuse large B-cell lymphoma, unspecified body region (HCC) (Primary Dx); Malignant neoplasm (HCC) Start: 08-21-2022 End: 08-21-2022 Patient encounter procedure Martell Waterman MD Work Phone: [facility] Start: 08-21-2022 End: 08-21-2022 Patient encounter procedure Cheyanne Farah DO Work Phone: Urology Comment on above: Ureteral obstruction , left (Primary Dx); Hydronephrosis, unspecified hydronephrosis type Start: 08-15-2022 End: 08-15-2022 ambulatory [facility] Work Phone: [place] [facility] Start: 08-15-2022 End: 08-15-2022 Manual pelvic examination [facility] Work Phone: Hematology/Oncology Comment on above: Diffuse large B-cell 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) (Primary Dx); Hydronephrosis with renal and ureteral calculus obstruction; Pelvic mass; Hyperlipidemia, mixed Start: 08-15-2022 End: 08-15-2022 Subsequent hospital visit by physician Ct Prep [facility] Cat Scan Comment on above: Left lower quadrant abdominal pain [R10.32] Start: 08-14-2022 Telephone encounter Wilson baires DO Work Phone: Hematology/Oncology Comment on above: Appointment Start: 08-11-2022 Telephone encounter Cheyanne varma DO Work Phone: [facility] Comment on above: Orders Start: 08-04-2022 Telephone encounter Najma Salomon Sheets DO Work Phone: [facility] Comment on above: Patient Question Start: 08-01-2022 Refill Najma C She ets DO Work Phone: [facility] Comment on above: Refill Request Start: 07-31-2022 Refill Najma Salomon She ets DO Work Phone: [facility] Comment on above: Refill Request Start: 07-29-2022 ambulatory Najma Salomon She ets DO Work Phone: [facility] Start: 07-17-2022 End: 07-17-2022 ambulatory Martell Waterman MD Work Phone: Hematology/Oncology Comment on above: Malignant neoplasm ( HCC) (Primary Dx); Diffuse large B-cell 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) Start: 07-17-2022 End: 07-17-2022 Patient encounter procedure Martell Waterman MD Work Phone: [facility] Start: 07-01-2022 Refill Najma Sanford ets DO Work Phone: [facility] Comment on above: Refill Request Start: 06-20-2022 Telephone encounter Martell Waterman MD Work Phone: Hematology/Oncology Comment on above: Follow Up's Start: 06-20-2022 End: 06-20-2022 Manual pelvic examination Martell Waterman MD Work Phone: Hematology/Oncology Comment on above: Diffuse large B-cell 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) (Primary Dx); Other intra-abdominal and pelvic swelling, mass and lump Start: 06-20-2022 End: 06-20-2022 Patient encounter procedure Martell Waterman MD Work Phone: [facility] Start: 06-17-2022 Telephone encounter Najma Aime Bloom DO Work Phone: [facility] Comment on above: Patient Question Start: 06-02-2022 End: 06-02-2022 Manual pelvic examination Eduardo Vasques MD Work Phone: Hematology/Oncology Comment on above: Diffuse large B-cell lymphoma of intra-abdominal lymph nodes (HCC) (Primary Dx); Pelvic mass Start: 06-02-2022 End: 06-02-2022 Patient encounter procedure Eduardo Vasques MD Work Phone: [facility] Start: 05-26-2022 Telephone encounter Jenny Huynh RN Hematology/Oncology Comment on above: Care Coordination (F ollow up bx) Start: 05-22-2022 End: 05-22-2022 ambulatory Lab/[facility] Work Phone: Hematology/Oncology Comment on above: Nodular histiocytic lymphoma (HCC) Start: 05-20-2022 Telephone encounter [facility] Radiology Comment on above: Radiology Pre Proced ure Instructions Start: 05-19-2022 End: 05-19-2022 ambulatory Martell Waterman MD Work Phone: Hematology/Oncology Comment on above: 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); Malignant neoplasm (HCC) Start: 05-19-2022 End: 05-19-2022 Patient encounter procedure Martell Waterman MD Work Phone: [facility] Start: 05-13-2022 End: 05-13-2022 Subsequent hospital visit by physician Pet Injection Ct Mobile [address] Comment on above: Diffuse large B-cell lymphoma of solid organ excluding spleen (HCC) [C83.39] Start: 05-02-2022 End: 05-02-2022 Patient encounter procedure Najma Bloom DO Work Phone: [facility] Comment on above: Type 2 diabetes roney itus without complication, with long-term current use of insulin (HCC) (Primary Dx); Hyperlipidemia, mixed; BMI 36.0-36.9,adult; Obesity, Class II, BMI 35-39.9 Start: 05-01-2022 End: 05-01-2022 ambulatory Martell Waterman MD Work Phone: Hematology/Oncology Comment on above: Diffuse large B-cell lymphoma of solid organ excluding spleen (HCC) Start: 05-01-2022 End: 05-01-2022 Patient encounter procedure Matrell Waterman MD Work Phone: [facility] Start: 04-25-2022 End: 04-25-2022 ambulatory Lab[facility] Work Phone: Hematology/Oncology Comment on above: Diffuse large B-cell 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) (Primary Dx) Start: 04-25-2022 End: 04-25-2022 Subsequent hospital visit by physician Ct Prep [facility] Cat Scan Comment on above: Diffuse large B-cell 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) [C83.38] Start: 04-23-2022 Telephone encounter Wilson baires DO Work Phone: Hematology/Oncology Comment on above: Appointment Start: 04-22-2022 Telephone encounter Najma Bloom DO Work Phone: [facility] Comment on above: Patient Question Start: 04-18-2022 Telephone encounter Martell Waterman MD Work Phone: Hematology/Oncology Comment on above: Lab Orders Start: 04-16-2022 Refill Najma C She ets DO Work Phone: [facility] Comment on above: Refill Request Start: 02-03-2022 Refill Najma C She ets DO Work Phone: [facility] Comment on above: Refill Request Start: 01-31-2022 Refill Najma C She ets DO Work Phone: [facility] Comment on above: Refill Request Start: 01-29-2022 End: 01-29-2022 ambulatory Lab/[facility] Work Phone: Hematology/Oncology Comment on above: Diffuse large B-cell 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); Screening for prostate cancer Procedures Date Procedure Procedure Detail Performing Clinician Start: 06-02-2025 Plain chest X-ray Dr. Simin Bloom DO Work Phone: Start: 06-02-[address] Najma Bloom DO Work Phone: Start: 02-28-2025 Hemoglobin A1c/Hemoglobin.total in Blood Najma C Sheets DO Work Phone: Start: 12-05-2024 Blood count complete auto&auto difrntl wbc Martell Waterman MD Work Phone: Start: 11-29-2024 Ecg routine ecg w/le ast 12 lds w/i&r Najma C Sheets DO Work Phone: Start: 11-29-2024 Hemoglobin A1c/Hemoglobin.total in Blood Najma C Sheets DO Work Phone: Start: 07-18-2024 Hemoglobin A1c/Hemoglobin.total in Blood Najma C Sheets DO Work Phone: Start: 06-22-2024 Sedimentation rate r bc automated Jennifer Fregoso Ryne DO Work Phone: Start: 04-18-2024 Blood count complete auto&auto difrntl wbc Martell Waterman MD Work Phone: Start: 04-18-2024 Urnls dip stick/tabl et reagent auto microscopy Epi Polanco MD Work Phone: Start: 03-15-2024 Urnls dip stick/tabl et rgnt auto w/o microscopy Yamilka Lares MD Work Phone: Start: 03-04-2024 Blood count complete auto&auto difrntl wbc Martell Waterman MD Work Phone: Start: 02-18-2024 Urine albumin quantitative Najma C Sheets DO Work Phone: Start: 02-18-2024 Hemoglobin A1c/Hemoglobin.total in Blood Najma C Sheets DO Work Phone: Start: 02-15-2024 Ecg routine ecg w/le ast 12 lds i&r only [facility] Provider Start: 12-16-2023 Blood count complete auto&auto difrntl wbc Epi Polanco MD Work Phone: Start: 12-16-2023 Urine albumin quantitative Epi Polanco MD Work Phone: Start: 11-30-2023 Blood count complete auto&auto difrntl wbc Martell Waterman MD Work Phone: Start: 10-09-2023 Hemoglobin A1c/Hemoglobin.total in Blood Najma C Sheets DO Work Phone: Start: 08-11-2023 Urnls dip stick/tabl et reagent auto microscopy Epi Polanco MD Work Phone: Start: 08-11-2023 Blood count complete auto&auto difrntl wbc Epi Polanco MD Work Phone: Start: 08-11-2023 Lipid panel Najma C Sheets DO Work Phone: Start: 07-08-2023 CREATININE BLD Martell Waterman MD Work Phone: Start: 05-26-2023 Hemoglobin A1c/Hemoglobin.total in Blood Najma C Sheets DO Work Phone: Start: 03-27-2023 Basic metabolic pane l calcium total Najma C Sheets DO Work Phone: Start: 02-26-2023 Myocardial spect multiple studies Xochitl Becerra [employer] Work Phone: Start: 02-20-2023 Urnls dip stick/tabl et rgnt auto w/o microscopy Najma C Sheets DO Work Phone: Start: 02-03-2023 End: 02-03-2023 Manpreet post-voiding residual urine&/bladder cap Cheyanne Farah DO Work Phone: Start: 12-24-2022 End: 12-24-2022 Manpreet post-voiding residual urine&/bladder cap Cheyanne Farah DO Work Phone: Start: 11-21-2022 Urnls dip stick/tabl et rgnt auto w/o microscopy Najma C Sheets DO Work Phone: Start: 11-21-2022 Hemoglobin A1c/Hemoglobin.total in Blood Najma C Sheets DO Work Phone: Start: 11-21-2022 Drug tst prsmv instr mnt chem analyzers pr date Najma C Sheets DO Work Phone: Start: 08-15-2022 Creatinine blood Cheyanne Farah DO Work Phone: Start: 05-22-2022 Prothrombin time Kimberlyn Rosales PA-C Work Phone: Start: 05-13-[address] attenuation skull base mid-thigh Martell Waterman MD Work Phone: Start: 05-02-2022 Urine albumin quantitative Najma C Sheets DO Work Phone: Start: 05-02-2022 Hemoglobin A1c/Hemoglobin.total in Blood Najma C Sheets DO Work Phone: Start: 05-01-2022 Adult depression screening assessment Martell Waterman MD Work Phone: Start: 04-25-2022 Ct abdomen & pelvis w/contrast material Martell Waterman MD Work Phone: Start: 04-25-2022 Ct thorax w/contrast material Martell Waterman MD Work Phone: Start: 04-25-2022 Blood count complete auto&auto difrntl wbc Martell Waterman MD Work Phone: Start: 01-29-2022 Blood count complete auto&auto difrntl wbc Martell Waterman MD Work Phone: Start: 04-18-2021 Adult depression screening assessment Lab/[facility] Work Phone: Start: 12-12-2020 Colonoscopy Lab[facility] Work Phone: Start: 06-07-2020 Antibody screen Comment on above: Performed By: #### T &S ####[place] [phone] History of operative procedure on knee S/P arthroscopic knee surgery Aide Quintanilla PA-C Work Phone: History of operative procedure on knee S/P arthroscopic knee surgery Jennifer Michele DO Work Phone: Plan of Treatment Date Care Activity Detail Author Start: 12-29-2033 Urine microalbumin profile DTaP,Tdap,Td Vaccine (2 - Td or Tdap) [facility] Start: 08-11-2028 Prostate Cancer Screening Discussion Prostate Cancer Screening Discussion [facility] Start: 08-11-2028 Prostate specific antigen measurement Prostate Cancer Screening Discussion [facility] Start: 01-29-2027 PROSTATE CANCER SCREENING DISCUSSION PROSTATE CANCER SCREENING DISCUSSION [facility] Start: 02-28-2026 Annual PCP Team Chronic Disease Visit Annual PCP Team Chronic Disease Visit [facility] Start: 02-28-2026 Anxiety Screening Anxiety Screening [facility] Comment on above: Postponed from 1982 (Postponed To Appropriate Date) Start: 02-28-2026 BP Controlled (<130/80) BP Controlled (<130/80) [facility] Start: 01-31-2026 Glaucoma screening Dilated Retinal Exam [facility] Start: 01-01-2026 End: 01-01-2026 Patient encounter procedure 01/01/2026 10:00 AM EDT Office Visit Cardiology [address] [place] [address] [place] [address] [place] [address] 8 mo follow up Cardiology Comment on above: 8 mo follow up Start: 12-05-2025 Complete blood count Hemoglobin/Hematocrit [facility] Start: 12-05-2025 Creatinine measurement Serum Creatinine [facility] Start: 12-05-2025 Screening for malignant neoplasm of lung Lung Cancer Screening [facility] Start: 11-29-2025 Annual PCP Team Chronic Disease Visit Annual PCP Team Chronic Disease Visit [facility] Start: 11-29-2025 BP Controlled (<130/80) BP Controlled (<130/80) [facility] Start: 11-29-2025 Pneumococcal Vaccine: 50+ (1 of 2 - PCV) Pneumococcal Vaccine: 50+ (1 of 2 - PCV) [facility] Comment on above: Postponed from 1983 (Declined at t his time) Start: 11-29-2025 RSV Vaccine (1 - Risk 60-74 years 1-dose series) RSV Vaccine (1 - Risk 60-74 years 1-dose series) [facility] Comment on above: Postponed from 2024 (Declined at t his time) Start: 08-29-2025 Annual PCP Team Chronic Disease Visit Annual PCP Team Chronic Disease Visit [facility] Start: 08-29-2025 BP Controlled (<130/80) BP Controlled (<130/80) [facility] Start: 08-29-2025 Diabetic foot examination Diabetic Foot Exam [facility] Start: 08-16-2025 BP Controlled (<130/80) BP Controlled (<130/80) [facility] Start: 07-18-2025 Annual PCP Team Chronic Disease Visit Annual PCP Team Chronic Disease Visit [facility] Start: 07-18-2025 BP Controlled (<130/80) BP Controlled (<130/80) [facility] Start: 07-18-2025 Pneumococcal vaccination Pneumococcal Vaccine (1 of 2 - PCV) [facility] Comment on above: Postponed from 1970 (Declined at t his time) Start: 07-18-2025 Shingrix Vaccine (1 of 2) Shingrix Vaccine (1 of 2) [facility] Comment on above: Postponed from 1983 (Declined at t his time) Start: 06-23-2025 Annual PCP Team Chronic Disease Visit Annual PCP Team Chronic Disease Visit [facility] Start: 06-23-2025 BP Controlled (<130/80) BP Controlled (<130/80) [facility] Start: 06-10-2025 Complete blood count Hemoglobin/Hematocrit [facility] Start: 06-10-2025 Creatinine measurement Serum Creatinine [facility] Start: 06-06-2025 Complete blood count Hemoglobin/Hematocrit [facility] Start: 06-06-2025 Creatinine measurement Serum Creatinine [facility] Start: 06-06-2025 End: 06-06-2025 ambulatory 06/06/2025 10:00 AM EDT Infusion Center Hematology/Oncology [address] [place] [address] Wstr, Lab[facility] [facility] [address] [place] [address] 3MO PORT FLUSH* Hematology/Oncology Comment on above: 3MO PORT FLUSH* Start: 06-02-2025 [facility] Start: 06-02-2025 [facility] Start: 06-01-2025 End: 06-01-2025 Patient encounter procedure 06/01/2025 9:00 AM EDT Office Visit [facility] [address] [place], [place] [id number] Najma Bloom DO [address] [place], [place] [id number] 3 MTH F/U DM after increasing metformin and januvia [facility] Comment on above: 3 MTH F/U DM after increasing metformin and januvia Start: 05-31-2025 Complete blood count Hemoglobin/Hematocrit [facility] Start: 05-31-2025 Creatinine measurement Serum Creatinine [facility] Start: 05-31-2025 Hemoglobin A1c measurement HbA1C [facility] Start: 05-27-2025 Complete blood count Hemoglobin/Hematocrit [facility] Start: 05-27-2025 Creatinine measurement Serum Creatinine [facility] Start: 05-26-2025 Complete blood count Hemoglobin/Hematocrit [facility] Start: 05-26-2025 Creatinine measurement Serum Creatinine [facility] Start: 05-26-2025 Hepatitis B screening Urine Albumin:Creatinine Ratio [facility] Start: 05-18-2025 Complete blood count Hemoglobin/Hematocrit [facility] Start: 05-18-2025 Creatinine measurement Serum Creatinine [facility] Start: 05-16-2025 Complete blood count Hemoglobin/Hematocrit [facility] Start: 05-16-2025 Creatinine measurement Serum Creatinine [facility] Start: 05-11-2025 Complete blood count Hemoglobin/Hematocrit [facility] Start: 05-11-2025 Creatinine measurement Serum Creatinine [facility] Start: 04-27-2025 End: 07-27-2025 Lipid 1996 panel - Serum or Plasma LIPID PANEL, FASTING Lab Routine Dyslipidemia Expected: 04/27/2025, Expires: 07/27/2025 [facility] Work Phone: Comment on above: Expected: 04/27/2025, Expires: Start: 04-27-2025 End: 07-27-2025 Lipoprotein a [Mass/volume] in Serum or Plasma LIPOPROTEIN (A) Lab Routine Dyslipidemia Expected: 04/27/2025, Expires: 07/27/2025 [facility] Comment on above: Expected: 04/27/2025, Expires: Start: 04-27-2025 End: 04-27-2025 Patient encounter procedure 04/27/2025 9:00 AM EDT Office Visit Cardiology [address] [place] [id number] Osiris Paris APRN.[address] [address] 6 mo follow up Cardiology Comment on above: 6 mo follow up Start: 04-19-2025 BP Controlled (<130/80) BP Controlled (<130/80) [facility] Start: 04-18-2025 Complete blood count Hemoglobin/Hematocrit [facility] Start: 04-18-2025 Creatinine measurement Serum Creatinine [facility] Start: 04-18-2025 Hepatitis B screening Urine Albumin:Creatinine Ratio [facility] Start: 04-18-2025 Hepatitis B surface antibody level LDL Cholesterol [facility] Start: 03-04-2025 BP Controlled (<130/80) BP Controlled (<130/80) [facility] Start: 03-04-2025 Complete blood count Hemoglobin/Hematocrit [facility] Start: 03-04-2025 Creatinine measurement Serum Creatinine [facility] Start: 03-03-2025 End: 03-03-2025 ambulatory 03/03/2025 10:00 AM EDT [facility] Hematology/Oncology [address] [place] [address] Wstr, [facility] [facility] [address] [place] [address] pt arriving at 930 Hematology/Oncology Comment on above: pt arriving at 930 Start: 02-28-2025 End: 02-28-2025 Patient encounter procedure 02/28/2025 9:20 AM EDT Office Visit [facility] [address] [place] [address] Najma Bloom DO [address] [place] [address] 3 MTH F/U DM [facility] Comment on above: 3 MTH F/U DM Start: 02-26-2025 Hemoglobin A1c measurement HbA1C [facility] Start: 02-24-2025 Screening for malignant neoplasm of lung Lung Cancer Screening [facility] Start: 02-17-2025 Annual PCP Team Chronic Disease Visit Annual PCP Team Chronic Disease Visit [facility] Start: 02-17-2025 BP Controlled (<130/80) BP Controlled (<130/80) [facility] Start: 02-17-2025 Hepatitis B screening Urine Albumin:Creatinine Ratio [facility] Start: 02-16-2025 End: 02-16-2025 Patient encounter procedure 02/16/2025 10:30 AM EDT Office Visit Cardiology [address] [place] [id number] Osiris Paris APRN.[employer] [address] [place] [address] 6 month follow up Cardiology Comment on above: 6 month follow up Start: 01-15-2025 Hemoglobin A1c measurement HbA1C [facility] Start: 12-23-2024 BP Controlled (<130/80) BP Controlled (<130/80) [facility] Start: 12-23-2024 Complete blood count Hemoglobin/Hematocrit [facility] Start: 12-23-2024 Creatinine measurement Serum Creatinine [facility] Start: 12-16-2024 BP Controlled (<130/80) BP Controlled (<130/80) [facility] Start: 12-16-2024 Complete blood count Hemoglobin/Hematocrit [facility] Start: 12-16-2024 Creatinine measurement Serum Creatinine [facility] Start: 12-16-2024 Hepatitis B screening Urine Albumin:Creatinine Ratio [facility] Start: 12-12-2024 End: 12-12-2024 ambulatory 12/12/2024 10:00 AM EST Infusion Center Hematology/Oncology [address] [address] Chair 1 port draw Hematology/Oncology Comment on above: Chair 1 port draw Start: 12-12-2024 End: 12-12-2024 Follow-up encounter 12/12/2024 9:40 AM EST Visit (SP) Office Hematology/Oncology [address] [address] [place] [address] [place] [address] NHL FOLLOW UP (9 MONTHS) Hematology/Oncology Comment on above: NHL FOLLOW UP (9 MONTHS) Start: 12-05-2024 End: 03-06-2025 CBC W Auto Differential panel - Blood COMPLETE BLOOD COUNT AND DIFFERENTIAL Lab Routine Diffuse large B-cell 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) Expected: 12/05/2024, Expires: 03/06/2025 [facility] Comment on above: Expected: 12/05/2024, Expires: Start: 12-05-2024 End: 03-06-2025 Comprehensive metabolic 2000 panel - Serum or Plasma COMPREHENSIVE METABOLIC PANEL Lab Routine Diffuse large B-cell 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) Expected: 12/05/2024, Expires: 03/06/2025 [facility] Comment on above: Expected: 12/05/2024, Expires: Start: 12-05-2024 End: 04-03-2025 CT Abdomen and Pelvis WO contrast [facility] Comment on above: Expected: 12/05/2024, Expires: Start: 12-05-2024 End: 04-03-2025 CT Chest WO contrast [facility] Comment on above: Expected: 12/05/2024, Expires: Start: 12-05-2024 End: 12-05-2024 Patient encounter procedure Cat Scan Comment on above: PREP CHEST ABD PELVIS Start: 11-30-2024 Complete blood count Hemoglobin/Hematocrit [facility] Start: 11-30-2024 Creatinine measurement Serum Creatinine [facility] Start: 11-29-2024 End: 11-29-2024 Patient encounter procedure 11/29/2024 9:20 AM EST Office Visit [facility] [address], [place] [id number] Najma Bloom DO [address] [place] [address] for Diabetes. [facility] Comment on above: for Diabetes. Start: 11-24-2024 BP Controlled (<130/80) BP Controlled (<130/80) [facility] Start: 11-19-2024 Annual PCP Team Chronic Disease Visit Annual PCP Team Chronic Disease Visit [facility] Start: 10-12-2024 Creatinine measurement Serum Creatinine [facility] Start: 10-09-2024 Annual PCP Team Chronic Disease Visit Annual PCP Team Chronic Disease Visit [facility] Start: 10-09-2024 BP Controlled (<130/80) BP Controlled (<130/80) [facility] Start: 10-09-2024 Urine microalbumin profile DTaP,Tdap,Td Vaccine (1 - Tdap) [facility] Comment on above: Postponed from 1983 (Declined at t his time) Start: 10-07-2024 End: 10-07-2024 Patient encounter procedure 10/07/2024 10:00 AM EST Office Visit Rheumatology [address] [address] Emily Blue, PA-C [address] [place] [address] Synovitis and tenosynovitis of knee [M65.969] Rheumatology Comment on above: Synovitis and tenosynovitis of knee [M65 .969] Start: 09-16-2024 End: 09-16-2024 Patient encounter procedure 09/16/2024 9:45 AM EST Office Visit Orthopaedics [address] [place] [address] Jennifer Michele DO [address] [place] [address] post op Lt medial menisectomy 07/26/24 Orthopaedics Comment on above: post op Lt medial menisectomy 07/26/24 Start: 08-30-2024 End: 08-30-2024 Patient encounter procedure 08/30/2024 3:15 PM EST Office Visit [facility] [address] [address] Epi Polanco MD [address] [address] 4 mos f/u [facility] Comment on above: 4 mos f/u Start: 08-29-2024 End: 08-29-2024 Patient encounter procedure 08/29/2024 10:40 AM EST Office Visit [facility] [address] [place] [address] Najma Bloom DO [address] [place] [address] 6 WK F/U DM after knee surgery [facility] Comment on above: 6 WK F/U DM after knee surgery Start: 08-27-2024 BP Controlled (<130/80) BP Controlled (<130/80) [facility] in Start: 08-26-2024 End: 11-25-2024 25-hydroxyvitamin D3 [Mass/volume] in Serum or Plasma VITAMIN D 25 HYDROXY Lab Routine Stage 4 chronic kidney disease (HCC) Vitamin D deficiency Expected: 08/26/2024, Expires: 11/25/2024 [facility] Comment on above: Expected: 08/26/2024, Expires: Start: 08-26-2024 End: 11-25-2024 CBC W Auto Differential panel - Blood COMPLETE BLOOD COUNT AND DIFFERENTIAL Lab Routine Stage 4 chronic kidney disease (HCC) Anemia of renal disease Expected: 08/26/2024, Expires: 11/25/2024 [facility] Comment on above: Expected: 08/26/2024, Expires: Start: 08-26-2024 End: 11-25-2024 Magnesium [Mass/volume] in Serum or Plasma MAGNESIUM Lab Routine Stage 4 chronic kidney disease (HCC) Expected: 08/26/2024, Expires: 11/25/2024 [facility] Comment on above: Expected: 08/26/2024, Expires: Start: 08-26-2024 End: 11-25-2024 Microalbumin/Creatinine [Mass Ratio] in Urine ALBUMIN/CREATININE RATIO, URINE Lab Routine Other proteinuria Stage 4 chronic kidney disease (HCC) Expected: 08/26/2024, Expires: 11/25/2024 [facility] Work Phone: Comment on above: Expected: 08/26/2024, Expires: Start: 08-26-2024 End: 11-25-2024 Parathyrin.intact [Mass/volume] in Serum or Plasma PTH INTACT Lab Routine Stage 4 chronic kidney disease (HCC) Secondary hyperparathyroidism of renal origin (HCC) Expected: 08/26/2024, Expires: 11/25/2024 [facility] Comment on above: Expected: 08/26/2024, Expires: Start: 08-26-2024 End: 11-25-2024 Renal function 2000 panel - Serum or Plasma RENAL FUNCTION PANEL Lab Routine Stage 4 chronic kidney disease (HCC) Expected: 08/26/2024, Expires: 11/25/2024 [facility] Comment on above: Expected: 08/26/2024, Expires: Start: 08-26-2024 End: 11-25-2024 Urate [Mass/volume] in Serum or Plasma URIC ACID Lab Routine Stage 4 chronic kidney disease (HCC) Expected: 08/26/2024, Expires: 11/25/2024 [facility] Comment on above: Expected: 08/26/2024, Expires: Start: 08-26-2024 End: 11-25-2024 Urinalysis complete panel - Urine URINALYSIS, WITH MICROSCOPIC Lab Routine Other proteinuria Stage 4 chronic kidney disease (HCC) Expected: 08/26/2024, Expires: 11/25/2024 [facility] Comment on above: Expected: 08/26/2024, Expires: Start: 08-21-2024 Influenza vaccination Lung Cancer Screening [facility] Start: 08-21-2024 Screening for malignant neoplasm of lung Lung Cancer Screening [facility] Start: 08-16-2024 End: 08-16-2024 Patient encounter procedure Cardiology Comment on above: 6 month follow up Start: 08-12-2024 Hemoglobin A1c measurement HbA1C [facility] Start: 08-12-2024 End: 08-12-2024 Patient encounter procedure 08/12/2024 11:30 AM EDT Office Visit Orthopaedics [address] [address] Aide Quintanilla PA-C [address] [place] [address] 1st post op Lt medial menisectomy 07/26/24 Orthopaedics Comment on above: 1st post op Lt medial menisectomy 4 Start: 08-11-2024 Complete blood count Hemoglobin/Hematocrit [facility] Start: 08-11-2024 Creatinine measurement Serum Creatinine [facility] Start: 08-11-2024 Hemoglobin/Hematocrit Hemoglobin/Hematocrit [facility] Start: 08-11-2024 Hepatitis B screening Urine Albumin:Creatinine Ratio [facility] Start: 08-11-2024 Hepatitis B surface antibody level LDL Cholesterol [facility] Start: 08-11-2024 Serum Creatinine Serum Creatinine [facility] Start: 2024 RSV Vaccine (1 - Risk 60-74 years 1-dose series) RSV Vaccine (1 - Risk 60-74 years 1-dose series) [facility] Start: 07-26-2024 End: 07-26-2024 Admission to same day surgery center 07/26/2024 12:05 PM EDT - 07/26/2024 1:28 PM EDT [facility] Surgery [address] [place] [address] Jennifer Michele DO [address] [place] [address] ARTHROSCOPY KNEE MENISCECTOMY MEDIAL OR LATERAL [facility] Surgery Comment on above: ARTHROSCOPY KNEE MENISCECTOMY MEDIAL OR LATERAL Start: 07-26-2024 End: 07-26-2024 Arthrs kne surg w/meniscectomy med/lat w/shvg ARTHROSCOPY KNEE MENISCECTOMY MEDIAL OR LATERAL Tear of medial meniscus of left knee, current, unspecified tear type, initial encounter 07/26/2024 12:05 PM EDT ME OR Start: 07-26-2024 Subsequent hospital visit by physician 07/26/2024 12:05 PM EDT Hospital Encounter [facility] Surgery [address] [place] [address] Jennifer Michele DO [address] [facility] [place] [address] Tear of medial meniscus of left knee, current, unspecified tear type, initial encounter [S83.242A] [facility] Surgery Comment on above: Tear of medial meniscus of left knee, cu rrent, unspecified tear type, initial encounter [S83.242A] Start: 07-26-2024 End: 07-26-2024 Admission to same day surgery center 07/26/2024 9:37 AM EDT - 07/26/2024 11:00 AM EDT Surgery [address] [address] Jennifer Michele DO [address] [facility] [place] [address] ARTHROSCOPY KNEE MENISCECTOMY MEDIAL OR LATERAL [facility] Surgery Comment on above: ARTHROSCOPY KNEE MENISCECTOMY MEDIAL OR LATERAL Start: 07-26-2024 End: 07-26-2024 Arthrs kne surg w/meniscectomy med/lat w/shvg ARTHROSCOPY KNEE MENISCECTOMY MEDIAL OR LATERAL Tear of medial meniscus of left knee, current, unspecified tear type, initial encounter 07/26/2024 9:37 AM EDT ME OR Start: 07-26-2024 Subsequent hospital visit by physician 07/26/2024 9:37 AM EDT Hospital Encounter [facility] Surgery [address] [place] [address] Jennifer Michele, DO [address] [place] [address] Tear of medial meniscus of left knee, current, unspecified tear type, initial encounter [W13.242A] [facility] Surgery Comment on above: Tear of medial meniscus of left knee, cu rrent, unspecified tear type, initial encounter [D29.242A] Start: 07-20-2024 End: 04-19-2025 25-hydroxyvitamin D3 [Mass/volume] in Serum or Plasma VITAMIN D 25 HYDROXY Lab Routine Vitamin D deficiency Expected: 07/20/2024, Expires: 04/19/2025 [facility] Comment on above: Expected: 07/20/2024, Expires: Start: 07-20-2024 End: 04-19-2025 CBC W Auto Differential panel - Blood COMPLETE BLOOD COUNT AND DIFFERENTIAL Lab Routine Anemia of renal disease Expected: 07/20/2024, Expires: 04/19/2025 [facility] Work Phone: Comment on above: Expected: 07/20/2024, Expires: Start: 07-20-2024 End: 04-19-2025 Magnesium [Mass/volume] in Serum or Plasma MAGNESIUM Lab Routine Stage 4 chronic kidney disease (HCC) Expected: 07/20/2024, Expires: 04/19/2025 [facility] Comment on above: Expected: 07/20/2024, Expires: Start: 07-20-2024 End: 10-19-2024 Microalbumin/Creatinine [Mass Ratio] in Urine ALBUMIN/CREATININE RATIO, URINE Lab Routine Other proteinuria Expected: 07/20/2024, Expires: 10/19/2024 [facility] Comment on above: Expected: 07/20/2024, Expires: Start: 07-20-2024 End: 04-19-2025 Parathyrin.intact [Mass/volume] in Serum or Plasma PTH INTACT Lab Routine Stage 4 chronic kidney disease (HCC) Expected: 07/20/2024, Expires: 04/19/2025 [facility] Comment on above: Expected: 07/20/2024, Expires: Start: 07-20-2024 End: 04-19-2025 Renal function 2000 panel - Serum or Plasma RENAL FUNCTION PANEL Lab Routine Stage 4 chronic kidney disease (HCC) Expected: 07/20/2024, Expires: 04/19/2025 [facility] Comment on above: Expected: 07/20/2024, Expires: Start: 07-20-2024 End: 04-19-2025 Urate [Mass/volume] in Serum or Plasma URIC ACID Lab Routine Stage 4 chronic kidney disease (HCC) Expected: 07/20/2024, Expires: 04/19/2025 [facility] Comment on above: Expected: 07/20/2024, Expires: Start: 07-20-2024 End: 10-19-2024 Urinalysis complete panel - Urine URINALYSIS, WITH MICROSCOPIC Lab Routine Stage 4 chronic kidney disease (HCC) Expected: 07/20/2024, Expires: 10/19/2024 [facility] Comment on above: Expected: 07/20/2024, Expires: Start: 07-18-2024 End: 07-18-2024 Patient encounter procedure 07/18/2024 10:40 AM EDT Office Visit [facility] [address] [place] [address] Najma Bloom, [address] [place] [address] 3 WK F/U for A1C for knee surgery [facility] Comment on above: 3 WK F/U for A1C for knee surgery Start: 07-14-2024 End: 10-13-2024 Borrelia burgdorferi IgG and IgM panel - Serum LYME AB LATE >30 DAYS SYMPTOMS Lab Routine Acute pain of left knee Expected: 07/14/2024, Expires: 10/13/2024 [facility] Comment on above: Expected: 07/14/2024, Expires: Start: 07-14-2024 End: 06-15-2025 C reactive protein [Mass/volume] in Serum or Plasma C-REACTIVE PROTEIN Lab Routine Acute pain of left knee Expected: 07/14/2024, Expires: 06/15/2025 [facility] Comment on above: Expected: 07/14/2024, Expires: Start: 07-14-2024 End: 06-15-2025 Creatine kinase [Enzymatic activity/volume] in Serum or Plasma CREATINE KINASE/CK Lab Routine Acute pain of left knee Expected: 07/14/2024, Expires: 06/15/2025 [facility] Comment on above: Expected: 07/14/2024, Expires: Start: 07-14-2024 End: 06-15-2025 Cyclic citrullinated peptide IgG Ab [Units/volume] in Serum or Plasma CCP ANTIBODY IGG Lab Routine Acute pain of left knee Expected: 07/14/2024, Expires: 06/15/2025 [facility] Comment on above: Expected: 07/14/2024, Expires: Start: 07-14-2024 End: 06-15-2025 Erythrocyte sedimentation rate SEDIMENTATION RATE, WESTERGREN Lab Routine Acute pain of left knee Expected: 07/14/2024, Expires: 06/15/2025 [facility] Comment on above: Expected: 07/14/2024, Expires: Start: 07-14-2024 End: 06-15-2025 FILOMENA DNA AUTOABS, DOUBLE STRANDED FILOMENA DNA AUTOABS, DOUBLE STRANDED Lab Routine Acute pain of left knee Expected: 07/14/2024, Expires: 06/15/2025 [facility] Comment on above: Expected: 07/14/2024, Expires: Start: 07-14-2024 End: 06-15-2025 Nuclear Ab [Presence] in Serum by Immunoassay CODY PANEL BLOOD SCRN Lab Routine Acute pain of left knee Expected: 07/14/2024, Expires: 06/15/2025 [facility] Comment on above: Expected: 07/14/2024, Expires: Start: 07-14-2024 End: 06-15-2025 Rheumatoid factor [Units/volume] in Serum or Plasma RHEUMATOID FACTOR Lab Routine Acute pain of left knee Expected: 07/14/2024, Expires: 06/15/2025 [facility] Work Phone: Comment on above: Expected: 07/14/2024, Expires: 5 Start: 07-14-2024 End: 06-15-2025 Urate [Mass/volume] in Serum or Plasma URIC ACID Lab Routine Acute pain of left knee Expected: 07/14/2024, Expires: 06/15/2025 [facility] Comment on above: Expected: 07/14/2024, Expires: 5 Start: 07-13-2024 End: 07-13-2024 Patient encounter procedure 07/13/2024 1:45 PM EDT Office Visit Orthopaedics [address] [address] Jennifer Michele [address] [facility] [place] [address] 3 week follow up -meniscal tear Orthopaedics Comment on above: 3 week follow up -meniscal tear Start: 07-08-2024 Serum Creatinine Serum Creatinine [facility] Start: 07-06-2024 End: 07-06-2024 Patient encounter procedure 07/06/2024 11:00 AM EDT Office Visit Orthopaedics [facility] [address] [address] Jennifer Michele, DO [address] [facility] [place] [address] 3 week follow up -meniscal tear Orthopaedics Comment on above: 3 week follow up -meniscal tear Start: 06-23-2024 End: 06-23-2024 Patient encounter procedure 06/23/2024 4:20 PM EDT Office Visit [facility] [address] [place] [address] Najma Bloom DO [address] [place] [address] TCM wound follow [facility] Comment on above: TCM wound follow Start: 06-22-2024 End: 06-22-2024 ambulatory 06/22/2024 11:15 AM EDT Infusion Center Hematology/Oncology [address] [place] [address] Wstr, Lab/Port [place] [address] [place] [address] LAB(PORT)DR MICHELE* Hematology/Oncology Comment on above: LAB(PORT)DR MICHELE* Start: 06-15-2024 End: 06-15-2024 Patient encounter procedure 06/15/2024 9:15 AM EDT Office Visit Orthopaedics [address] [id number] Jennifer Michele DO [address] [place] [address] Hospital Follow Up - meniscal tear Orthopaedics Comment on above: Hospital Follow Up - meniscal tear Start: 06-07-2024 End: 06-07-2024 Patient encounter procedure 06/07/2024 10:00 AM EDT Office Visit [facility] [address] [place] [address] Najma Bloom DO [address] [place] [address] 3 MTH F/U DM after increasin ozempic to 1 mg [facility] Comment on above: 3 MTH F/U DM after increasin ozempic to 1 mg Start: 06-01-2024 End: 06-01-2024 Evaluation and management of inpatient 06/01/2024 12:33 PM EDT - 06/01/2024 1:59 PM EDT Surgery [facility] Surgery [address] [place] [address] Nikita Escobedo DPM [address] [place] [address] INCISION AND DRAINAGE FOOT, BELOW FASCIA, BURSAL SPACE, SINGLE [facility] Surgery Comment on above: INCISION AND DRAINAGE FOOT, BELOW FASCIA , BURSAL SPACE, SINGLE Start: 06-01-2024 End: 06-01-2024 I&d below fascia foot 1 bursal space INCISION AND DRAINAGE FOOT, BELOW FASCIA, BURSAL SPACE, SINGLE Osteomyelitis (HCC) Abscess 06/01/2024 12:33 PM EDT ME OR Start: 05-30-2024 End: 05-30-2024 Patient encounter procedure 05/30/2024 1:00 PM EDT Office Visit [facility] [address] [place] [address] Alesha Coleman, DPHolley [address] [facility] [address] [place] [address] casting chipper, hospital fu [facility] Comment on above: casting chipper, [facility] Start: 05-30-2024 End: 05-30-2024 Amputation toe interphalangeal joint ME OR Start: 05-30-2024 End: 05-30-2024 Evaluation and management of inpatient [facility] Surgery Comment on above: AMPUTATION TOE INTERPHALANGEAL JOINT Start: 05-26-2024 ANNUAL PCP TEAM CHRONIC DISEASE VISIT ANNUAL PCP TEAM CHRONIC DISEASE VISIT [facility] Start: 05-26-2024 BP CONTROLLED (<130/80) BP CONTROLLED (<130/80) [facility] Start: 05-19-2024 Hemoglobin A1c measurement HbA1C [facility] Start: 05-19-2024 HEMOGLOBIN/HEMATOCRIT HEMOGLOBIN/HEMATOCRIT [facility] Start: 05-19-2024 SERUM CREATININE SERUM CREATININE [facility] Start: 05-19-2024 End: 05-19-2024 Patient encounter procedure 05/19/2024 9:20 AM EDT Office Visit [facility] [address] [place] [address] Najma Bloom DO [address] [place] [address] 3 MTH F/U DM after increasin ozempic to 1 mg [facility] Comment on above: 3 MTH F/U DM after increasin ozempic to 1 mg Start: 04-19-2024 End: 04-19-2024 Patient encounter procedure 04/19/2024 3:30 PM EDT Office Visit [facility] [address] [place] [address] Epi Polanco MD [address] [place] [address] 4 mo f/u [facility] Comment on above: 4 mo f/u Start: 04-18-2024 End: 04-18-2024 Infusion Center 04/18/2024 9:45 AM EDT Infusion Center Hematology/Oncology [address] [place] [address] Wstr, Lab/[place] [facility] [address] [place] [address] LAB/ORDERING PROV DR POLANCO(PORT)* Hematology/Oncology Comment on above: LAB/ORDERING PROV DR POLANCO(PORT)* Start: 04-16-2024 BP CONTROLLED (<130/80) BP CONTROLLED (<130/80) [facility] Start: 03-27-2024 SERUM CREATININE SERUM CREATININE [facility] Start: 03-15-2024 End: 12-16-2024 25-hydroxyvitamin D3 [Mass/volume] in Serum or Plasma VITAMIN D 25 HYDROXY Lab Routine Vitamin D deficiency Expected: 03/15/2024, Expires: 12/16/2024 [facility] Work Phone: Comment on above: Expected: 03/15/2024, Expires: 5 Start: 03-15-2024 End: 06-14-2024 ALBUMIN/CREAT RATIO RND UR ALBUMIN/CREAT RATIO RND UR Lab Routine Other proteinuria Expected: 03/15/2024, Expires: 06/14/2024 [facility] Work Phone: Comment on above: Expected: 03/15/2024, Expires: 4 Start: 03-15-2024 End: 12-16-2024 CBC W Auto Differential panel - Blood CBC + DIFF Lab Routine Anemia of renal disease Expected: 03/15/2024, Expires: 12/16/2024 [facility] Work Phone: Comment on above: Expected: 03/15/2024, Expires: 5 Start: 03-15-2024 End: 12-16-2024 Magnesium [Mass/volume] in Serum or Plasma MAGNESIUM BLD Lab Routine Stage 3b chronic kidney disease (HCC) Expected: 03/15/2024, Expires: 12/16/2024 [facility] [place] [facility] Work Phone: Comment on above: Expected: 03/15/2024, Expires: 5 Start: 03-15-2024 End: 12-16-2024 Parathyrin.intact [Mass/volume] in Serum or Plasma PTH INTACT BLD Lab Routine Stage 3b chronic kidney disease (HCC) Expected: 03/15/2024, Expires: 12/16/2024 [facility] Work Phone: Comment on above: Expected: 03/15/2024, Expires: 5 Start: 03-15-2024 End: 12-16-2024 Renal function 2000 panel - Serum or Plasma RENAL FUNCTION PANEL Lab Routine Stage 3b chronic kidney disease (HCC) Expected: 03/15/2024, Expires: 12/16/2024 [facility] Work Phone: Comment on above: Expected: 03/15/2024, Expires: 5 Start: 03-15-2024 End: 12-16-2024 Urate [Mass/volume] in Serum or Plasma URIC ACID BLOOD Lab Routine Stage 3b chronic kidney disease (HCC) Expected: 03/15/2024, Expires: 12/16/2024 [facility] Work Phone: Comment on above: Expected: 03/15/2024, Expires: 5 Start: 03-15-2024 End: 06-14-2024 Urinalysis complete panel - Urine URINALYSIS, WITH MICROSCOPIC Lab Routine Stage 3b chronic kidney disease (HCC) Expected: 03/15/2024, Expires: 06/14/2024 [facility] Work Phone: Comment on above: Expected: 03/15/2024, Expires: Start: 03-15-2024 End: 03-15-2024 Patient encounter procedure 03/15/2024 10:30 AM EDT Office Visit Urology [address] [address] Yamilka Lares Jr., MD [address] [place] [address] FOLLOW UP Urology Comment on above: FOLLOW UP Start: 03-04-2024 End: 03-04-2024 Follow-up encounter 03/04/2024 9:40 AM EDT Visit (SP) Office Hematology/Oncology [address] [address] [place] [address] [place], [place] [id number] FOLLOW UP Hematology/Oncology Comment on above: FOLLOW UP Start: 03-02-2024 ANNUAL PCP TEAM CHRONIC DISEASE VISIT ANNUAL PCP TEAM CHRONIC DISEASE VISIT [facility] Start: 03-02-2024 BP CONTROLLED (<130/80) BP CONTROLLED (<130/80) [facility] Start: 03-02-2024 PNEUMOCOCCAL (1 - PCV) PNEUMOCOCCAL (1 - PCV) [facility] Comment on above: Postponed from 1970 (Declined at t his time) Start: 03-02-2024 Pneumococcal vaccination [facility] Comment on above: Postponed from 1970 (Declined at t his time) Start: 03-02-2024 SHINGRIX VACCINE (1 of 2) SHINGRIX VACCINE (1 of 2) [facility] Comment on above: Postponed from 1983 (Declined at t his time) Start: 02-25-2024 End: 02-25-2024 Patient encounter procedure Cat Scan Comment on above: PREP CHEST ABD PELVIS Start: 02-21-2024 ANNUAL PCP TEAM CHRONIC DISEASE VISIT ANNUAL PCP TEAM CHRONIC DISEASE VISIT [facility] Start: 02-21-2024 BP CONTROLLED (<130/80) BP CONTROLLED (<130/80) [facility] Start: 02-17-2024 Influenza vaccination LUNG CANCER SCREENING [facility] Start: 02-15-2024 End: 05-16-2024 Lipid 1996 panel - Serum or Plasma LIPID PANEL BASIC Lab Routine Hyperlipidemia, mixed Expected: 02/15/2024, Expires: 05/16/2024 [facility] Work Phone: Comment on above: Expected: 02/15/2024, Expires: Start: 02-13-2024 Glaucoma screening Dilated Retinal Exam [facility] Start: 02-13-2024 Hepatitis C antibody, confirmatory test DILATED RETINAL EXAM [facility] Start: 02-03-2024 HEMOGLOBIN/HEMATOCRIT HEMOGLOBIN/HEMATOCRIT [facility] Start: 02-03-2024 SERUM CREATININE SERUM CREATININE [facility] Start: 02-02-2024 PROSTATE CANCER SCREENING DISCUSSION PROSTATE CANCER SCREENING DISCUSSION [facility] Start: 01-31-2024 BP CONTROLLED (<130/80) BP CONTROLLED (<130/80) [facility] Start: 01-27-2024 ANNUAL PCP TEAM CHRONIC DISEASE VISIT ANNUAL PCP TEAM CHRONIC DISEASE VISIT [facility] Start: 01-27-2024 BP CONTROLLED (<130/80) BP CONTROLLED (<130/80) [facility] Start: 01-16-2024 HEMOGLOBIN/HEMATOCRIT HEMOGLOBIN/HEMATOCRIT [facility] Start: 01-16-2024 SERUM CREATININE SERUM CREATININE [facility] Start: 01-14-2024 HEMOGLOBIN/HEMATOCRIT HEMOGLOBIN/HEMATOCRIT [facility] Start: 01-14-2024 SERUM CREATININE SERUM CREATININE [facility] Start: 01-09-2024 Hepatitis B screening URINE ALBUMIN:CREATININE RATIO [facility] Start: 01-08-2024 Diabetic foot examination Diabetic Foot Exam [facility] Comment on above: Postponed from 04/18/2022 (Declined at t his time) Start: 01-08-2024 Hemoglobin A1c measurement HbA1C [facility] Start: 12-25-2023 BP CONTROLLED (<130/80) BP CONTROLLED (<130/80) [facility] Start: 12-22-2023 ANNUAL PCP TEAM CHRONIC DISEASE VISIT ANNUAL PCP TEAM CHRONIC DISEASE VISIT [facility] Start: 12-22-2023 BP CONTROLLED (<130/80) BP CONTROLLED (<130/80) [facility] Start: 12-14-2023 Hepatitis B screening URINE ALBUMIN:CREATININE RATIO [facility] Start: 12-12-2023 Colonoscopy COLONOSCOPY [facility] Start: 12-12-2023 COLORECTAL CANCER SCREENING COLORECTAL CANCER SCREENING [facility] Start: 12-12-2023 Screening for malignant neoplasm of colon [facility] Start: 12-11-2023 End: 03-11-2024 Parathyrin.intact [Mass/volume] in Serum or Plasma PTH INTACT BLD Lab Routine Stage 3b chronic kidney disease (HCC) Chronic kidney disease (CKD) stage G3b/A3, moderately decreased glomerular filtration rate (GFR) between 30-44 mL/min/1.73 square meter and albuminuria creatinine ratio greater than 300 mg/g (HCC) Vitamin D deficiency Hyperkalemia Hypertension, essential Hyperuricemia Other proteinuria Expected: 12/11/2023, Expires: 03/11/2024 [facility] [place] [facility] Work Phone: Comment on above: Expected: 12/11/2023, Expires: 4 Start: 11-25-2023 ANNUAL PCP TEAM CHRONIC DISEASE VISIT ANNUAL PCP TEAM CHRONIC DISEASE VISIT [facility] Start: 11-25-2023 BP CONTROLLED (<130/80) BP CONTROLLED (<130/80) [facility] Start: 11-21-2023 ANNUAL PCP TEAM CHRONIC DISEASE VISIT ANNUAL PCP TEAM CHRONIC DISEASE VISIT [facility] Start: 11-21-2023 BP CONTROLLED (<130/80) BP CONTROLLED (<130/80) [facility] Start: 10-26-2023 Behavioral Health Screening Behavioral Health Screening [facility] Start: 10-26-2023 Depression Assessment Depression Assessment [facility] Start: 09-03-2023 End: 06-03-2024 25-hydroxyvitamin D3 [Mass/volume] in Serum or Plasma VITAMIN D 25 HYDROXY Lab Routine Vitamin D deficiency Expected: 09/03/2023, Expires: 06/03/2024 [facility] [place] [facility] Work Phone: Comment on above: Expected: 09/03/2023, Expires: 4 Start: 09-03-2023 End: 11-03-2023 ALBUMIN/CREAT RATIO RND UR ALBUMIN/CREAT RATIO RND UR Lab Routine Other proteinuria Expected: 09/03/2023, Expires: 11/03/2023 [facility] Work Phone: Comment on above: Expected: 09/03/2023, Expires: 4 Start: 09-03-2023 End: 06-03-2024 CBC W Auto Differential panel - Blood CBC + DIFF Lab Routine Anemia of renal disease Expected: 09/03/2023, Expires: 06/03/2024 [facility] Work Phone: Comment on above: Expected: 09/03/2023, Expires: 4 Start: 09-03-2023 End: 06-03-2024 Magnesium [Mass/volume] in Serum or Plasma MAGNESIUM BLD Lab Routine Stage 3b chronic kidney disease (HCC) Expected: 09/03/2023, Expires: 06/03/2024 [facility] Work Phone: Comment on above: Expected: 09/03/2023, Expires: Start: 09-03-2023 End: 06-03-2024 Parathyrin.intact [Mass/volume] in Serum or Plasma PTH INTACT BLD Lab Routine Stage 3b chronic kidney disease (HCC) Expected: 09/03/2023, Expires: 06/03/2024 [facility] Work Phone: Comment on above: Expected: 09/03/2023, Expires: 4 Start: 09-03-2023 End: 06-03-2024 Renal function 2000 panel - Serum or Plasma RENAL FUNCTION PANEL Lab Routine Stage 3b chronic kidney disease (HCC) Expected: 09/03/2023, Expires: 06/03/2024 [facility] Work Phone: Comment on above: Expected: 09/03/2023, Expires: Start: 09-03-2023 End: 06-03-2024 Urate [Mass/volume] in Serum or Plasma URIC ACID BLOOD Lab Routine Stage 3b chronic kidney disease (HCC) Expected: 09/03/2023, Expires: 06/03/2024 [facility] Work Phone: Comment on above: Expected: 09/03/2023, Expires: 4 Start: 09-03-2023 End: 11-03-2023 Urinalysis complete panel - Urine URINALYSIS, WITH MICROSCOPIC Lab Routine Stage 3b chronic kidney disease (HCC) Expected: 09/03/2023, Expires: 11/03/2023 [facility] Work Phone: Comment on above: Expected: 09/03/2023, Expires: 4 Start: 08-26-2023 Hemoglobin A1c/Hemoglobin.total in Blood HBA1C [facility] Start: 08-21-2023 BP CONTROLLED (<130/80) BP CONTROLLED (<130/80) [facility] Start: 08-15-2023 ANNUAL PCP TEAM CHRONIC DISEASE VISIT ANNUAL PCP TEAM CHRONIC DISEASE VISIT [facility] Start: 08-15-2023 BP CONTROLLED (<130/80) BP CONTROLLED (<130/80) [facility] Start: 08-15-2023 DEPRESSION ASSESSMENT DEPRESSION ASSESSMENT [facility] Comment on above: Postponed from 10/26/2022 (Postponed To Appropriate Date) Start: 08-15-2023 Hepatitis B surface antibody level LDL CHOLESTEROL [facility] Start: 07-10-2023 BP CONTROLLED (<130/80) BP CONTROLLED (<130/80) [facility] Start: 07-04-2023 End: 09-03-2023 Renal function 2000 panel - Serum or Plasma RENAL FUNCTION PANEL Lab Routine Leg swelling Expected: 07/04/2023, Expires: 09/03/2023 [facility] [place] [facility] Work Phone: Comment on above: Expected: 07/04/2023, Expires: 3 Start: 06-21-2023 End: 08-21-2023 CBC W Auto Differential panel - Blood CBC + DIFF Lab Routine NHL (nodular histiocytic lymphoma) (HCC) Expected: 06/21/2023, Expires: 08/21/2023 [facility] Work Phone: Comment on above: Expected: 06/21/2023, Expires: 3 Start: 06-21-2023 End: 08-21-2023 Comprehensive metabolic 2000 panel - Serum or Plasma COMP METABOLIC PANEL Lab Routine NHL (nodular histiocytic lymphoma) (HCC) Expected: 06/21/2023, Expires: 08/21/2023 [facility] Work Phone: Comment on above: Expected: 06/21/2023, Expires: 3 Start: 06-02-2023 BP CONTROLLED (<130/80) BP CONTROLLED (<130/80) [facility] in Start: 05-19-2023 BP CONTROLLED (<130/80) BP CONTROLLED (<130/80) [facility] Start: 05-08-2023 End: 02-07-2024 25-hydroxyvitamin D3 [Mass/volume] in Serum or Plasma VITAMIN D 25 HYDROXY Lab Routine Vitamin D deficiency Expected: 05/08/2023, Expires: 02/07/2024 [facility] [place] [facility] Work Phone: Comment on above: Expected: 05/08/2023, Expires: 4 Start: 05-08-2023 End: 07-08-2023 ALBUMIN/CREAT RATIO RND UR ALBUMIN/CREAT RATIO RND UR Lab Routine Other proteinuria Expected: 05/08/2023, Expires: 07/08/2023 [facility] [place] [facility] Work Phone: Comment on above: Expected: 05/08/2023, Expires: 3 Start: 05-08-2023 End: 02-07-2024 CBC W Auto Differential panel - Blood CBC + DIFF Lab Routine Anemia of renal disease Expected: 05/08/2023, Expires: 02/07/2024 [facility] [place] [facility] Work Phone: Comment on above: Expected: 05/08/2023, Expires: 4 Start: 05-08-2023 End: 02-07-2024 Magnesium [Mass/volume] in Serum or Plasma MAGNESIUM BLD Lab Routine Stage 3a chronic kidney disease (HCC) Expected: 05/08/2023, Expires: 02/07/2024 [facility] [place] [facility] Work Phone: Comment on above: Expected: 05/08/2023, Expires: 4 Start: 05-08-2023 End: 02-07-2024 Parathyrin.intact [Mass/volume] in Serum or Plasma PTH INTACT BLD Lab Routine Stage 3a chronic kidney disease (HCC) Expected: 05/08/2023, Expires: 02/07/2024 [facility] [place] [facility] Work Phone: Comment on above: Expected: 05/08/2023, Expires: 4 Start: 05-08-2023 End: 02-07-2024 Renal function 2000 panel - Serum or Plasma RENAL FUNCTION PANEL Lab Routine Stage 3a chronic kidney disease (HCC) Expected: 05/08/2023, Expires: 02/07/2024 [facility] [place] [facility] Work Phone: Comment on above: Expected: 05/08/2023, Expires: 4 Start: 05-08-2023 End: 02-07-2024 Urate [Mass/volume] in Serum or Plasma URIC ACID BLOOD Lab Routine Stage 3a chronic kidney disease (HCC) Expected: 05/08/2023, Expires: 02/07/2024 [facility] [place] [facility] Work Phone: Comment on above: Expected: 05/08/2023, Expires: 4 Start: 05-08-2023 End: 07-08-2023 Urinalysis complete panel - Urine URINALYSIS, WITH MICROSCOPIC Lab Routine Stage 3a chronic kidney disease (HCC) Expected: 05/08/2023, Expires: 07/08/2023 [facility] [place] [facility] Work Phone: Comment on above: Expected: 05/08/2023, Expires: 3 Start: 05-02-2023 ANNUAL PCP TEAM CHRONIC DISEASE VISIT ANNUAL PCP TEAM CHRONIC DISEASE VISIT [facility] Start: 05-02-2023 BP CONTROLLED (<130/80) BP CONTROLLED (<130/80) [facility] in Start: 05-02-2023 COVID-19 VACCINE (#1) COVID-19 VACCINE (#1) [facility] Comment on above: Postponed from 1969 (Declined at t his time) Postponed from 01/31 (Declined at this time) Start: 05-02-2023 Hepatitis B screening URINE ALBUMIN:CREATININE RATIO [facility] Start: 05-01-2023 3 comp foot exam completed DIABETIC FOOT EXAM [facility] Comment on above: Postponed from 04/18/2022 (Declined at t his time) Start: 05-01-2023 Adult depression screening assessment DEPRESSION SCREENING [facility] Start: 05-01-2023 BP CONTROLLED (<130/80) BP CONTROLLED (<130/80) [facility] in Start: 04-25-2023 Influenza vaccination LUNG CANCER SCREENING [facility] Start: 03-24-2023 End: 05-24-2023 Basic metabolic 2000 panel - Serum or Plasma BASIC METABOLIC PNL Lab Routine Hyperkalemia Expected: 03/24/2023, Expires: 05/24/2023 [facility] Work Phone: Comment on above: Expected: 03/24/2023, Expires: Start: 03-16-2023 Hemoglobin A1c/Hemoglobin.total in Blood HBA1C [facility] Start: 02-19-2023 End: 04-21-2023 CBC W Auto Differential panel - Blood CBC + DIFF Lab Routine Diffuse large B-cell lymphoma, unspecified body region (HCC) Expected: 02/19/2023, Expires: 04/21/2023 [facility] Work Phone: Comment on above: Expected: 02/19/2023, Expires: 3 Start: 02-19-2023 End: 04-21-2023 Comprehensive metabolic 2000 panel - Serum or Plasma COMP METABOLIC PANEL Lab Routine Diffuse large B-cell lymphoma, unspecified body region (HCC) Expected: 02/19/2023, Expires: 04/21/2023 [facility] Work Phone: Comment on above: Expected: 02/19/2023, Expires: 3 Start: 02-19-2023 End: 09-20-2023 Ct abdomen & pelvis w/contrast material CT ABD/PEL W IVCON Radiology Routine Diffuse large B-cell lymphoma, unspecified body region (HCC) Expected: 02/19/2023, Expires: 09/20/2023 [facility] Work Phone: Comment on above: Expected: 02/19/2023, Expires: Start: 02-19-2023 End: 09-20-2023 CT CHEST W IVCON CT CHEST W IVCON Radiology Routine Diffuse large B-cell lymphoma, unspecified body region (HCC) Expected: 02/19/2023, Expires: 09/20/2023 [facility] Work Phone: Comment on above: Expected: 02/19/2023, Expires: Start: 02-19-2023 Hemoglobin A1c/Hemoglobin.total in Blood HBA1C [facility] Start: 01-30-2023 ANNUAL PCP TEAM CHRONIC DISEASE VISIT ANNUAL PCP TEAM CHRONIC DISEASE VISIT [facility] Start: 01-30-2023 BP CONTROLLED (<130/80) BP CONTROLLED (<130/80) [facility] in[facility] Start: 01-30-2023 ONE PNEUMOVAX PRIOR TO AGE 65 ONE PNEUMOVAX PRIOR TO AGE 64 [facility] Comment on above: Postponed from 1980 (Declined at t his time) Start: 01-30-2023 PNEUMOCOCCAL (1 - PCV) PNEUMOCOCCAL (1 - PCV) [facility] Comment on above: Postponed from 1970 (Declined at t his time) Start: 01-30-2023 SHINGRIX VACCINE (1 of 2) SHINGRIX VACCINE (1 of 2) [facility] Comment on above: Postponed from 2014 (Declined at t his time) Postponed from 08/02 (Declined at this time) Start: 01-30-2023 Urine microalbumin profile DTAP,TDAP,TD (1 - Tdap) [facility] Comment on above: Postponed from 1983 (Declined at t his time) Start: 11-21-2022 End: 01-21-2023 Lipid 1996 panel - Serum or Plasma LIPID PANEL BASIC Lab Routine Hyperlipidemia, mixed Expected: 11/21/2022, Expires: 01/21/2023 [facility] Work Phone: Comment on above: Expected: 11/21/2022, Expires: Start: 11-15-2022 Hemoglobin A1c/Hemoglobin.total in Blood HBA1C [facility] Start: 11-01-2022 ANNUAL PCP TEAM CHRONIC DISEASE VISIT ANNUAL PCP TEAM CHRONIC DISEASE VISIT [facility] Start: 11-01-2022 BP CONTROLLED (<130/80) BP CONTROLLED (<130/80) [facility] Start: 10-26-2022 DEPRESSION ASSESSMENT DEPRESSION ASSESSMENT [facility] Start: 10-07-2022 Influenza vaccination LUNG CANCER SCREENING [facility] Start: 2022 Hemoglobin A1c/Hemoglobin.total in Blood HBA1C [facility] Start: 07-29-2022 End: 09-28-2022 Lipid 1996 panel - Serum or Plasma LIPID PANEL BASIC Lab Routine Hyperlipidemia, mixed Expected: 07/29/2022, Expires: 09/28/2022 [facility] Work Phone: Comment on above: Expected: 07/29/2022, Expires: 2 Start: 07-29-2022 End: 09-28-2022 SCHEDULE LAB TESTING SCHEDULE LAB TESTING Lab Routine Expected: 07/29/2022, Expires: 09/28/2022 [facility] Work Phone: Comment on above: Expected: 07/29/2022, Expires: 2 Start: 07-18-2022 Hepatitis B surface antibody level LDL CHOLESTEROL [facility] Start: 05-01-2022 Hemoglobin A1c/Hemoglobin.total in Blood HBA1C [facility] Start: 04-18-2022 3 comp foot exam completed DIABETIC FOOT EXAM [facility] Start: 04-18-2022 Adult depression screening assessment DEPRESSION SCREENING [facility] Start: 04-18-2022 End: 06-18-2022 CBC W Auto Differential panel - Blood CBC + DIFF Lab STAT Diffuse large B-cell 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) Expected: 04/18/2022, Expires: 06/18/2022 [facility] Work Phone: Comment on above: Expected: 04/18/2022, Expires: 2 Start: 04-18-2022 End: 06-18-2022 Comprehensive metabolic 2000 panel - Serum or Plasma COMP METABOLIC PANEL Lab STAT Diffuse large B-cell 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) Expected: 04/18/2022, Expires: 06/18/2022 [facility] Work Phone: Comment on above: Expected: 04/18/2022, Expires: Start: 04-18-2022 COVID-19 VACCINE (#1) COVID-19 VACCINE (#1) [facility] Comment on above: Postponed from 1969 (Declined at t his time) Start: 04-18-2022 COVID-19 VACCINE (1) COVID-19 VACCINE (1) [facility] Comment on above: Postponed from 1976 (Declined at t his time) Start: 04-18-2022 Diabetic foot examination Diabetic Foot Exam [facility] Start: 04-18-2022 Hepatitis B screening URINE ALBUMIN:CREATININE RATIO [facility] Start: 01-30-2022 Hemoglobin A1c/Hemoglobin.total in Blood HBA1C [facility] Start: 12-12-2021 Colonoscopy COLONOSCOPY [facility] Start: 12-12-2021 COLORECTAL CANCER SCREENING COLORECTAL CANCER SCREENING [facility] Start: 10-26-2021 DEPRESSION ASSESSMENT DEPRESSION ASSESSMENT [facility] Start: 09-18-2021 FECAL OCCULT BLOOD FECAL OCCULT BLOOD [facility] Start: 09-18-2021 Screening for malignant neoplasm of colon Fecal Occult Blood [facility] Start: 2014 SHINGRIX VACCINE (1 of 2) SHINGRIX VACCINE (1 of 2) [facility] Start: 2009 COLOGUARD (FIT-DNA) COLOGUARD (FIT-DNA) [facility] Start: [address] COLONOGRAPHY [facility] Start: 2009 Screening for malignant neoplasm of colon [facility] Start: 2009 SIGMOIDOSCOPY SIGMOIDOSCOPY [facility] Start: 1983 HEPATITIS B (1 of 3 - Risk 3-dose series) HEPATITIS B (1 of 3 - Risk 3-dose series) [facility] Start: 1983 Pneumococcal Vaccine: 50+ (1 of 2 - PCV) Pneumococcal Vaccine: 50+ (1 of 2 - PCV) [facility] Start: 1983 SHINGRIX VACCINE (1 of 2) SHINGRIX VACCINE (1 of 2) [facility] Start: 1983 Urine microalbumin profile [facility] Start: 1982 Anxiety Screening Anxiety Screening [facility] Start: 1982 BP CONTROLLED (<130/80) BP CONTROLLED (<130/80) [facility] Start: 1982 Depression Screening Depression Screening [facility] Start: 1980 ONE PNEUMOVAX PRIOR TO AGE 65 ONE PNEUMOVAX PRIOR TO AGE 64 [facility] Start: 1974 Hepatitis C antibody, confirmatory test DILATED RETINAL EXAM [facility] Start: 1970 PNEUMOCOCCAL (1 - PCV) PNEUMOCOCCAL (1 - PCV) [facility] Start: 1970 Pneumococcal vaccination Pneumococcal Vaccine (1 of 2 - PCV) [facility] Start: 1969 COVID-19 VACCINE (#1) COVID-19 VACCINE (#1) [facility] Start: 01-31-1965 COVID-19 VACCINE (#1) COVID-19 VACCINE (#1) [facility] Start: 1964 HEPATITIS B (1 of 3 - 3-dose series) HEPATITIS B (1 of 3 - 3-dose series) [facility] Start: 1964 Hepatitis B Vaccine (1 of 3 - 3-dose series) Hepatitis B Vaccine (1 of 3 - 3-dose series) [facility] 25-hydroxyvitamin D3 [Mass/volume] in Serum or Plasma VITAMIN D 25 HYDROXY Lab Routine Vitamin D deficiency 08/11/2023 10:15 AM EDT [facility] Work Phone: 25-hydroxyvitamin D3 [Mass/volume] in Serum or Plasma VITAMIN D 25 HYDROXY Lab Routine Stage 3b chronic kidney disease (HCC) Chronic kidney disease (CKD) stage G3b/A3, moderately decreased glomerular filtration rate (GFR) between 30-44 mL/min/1.73 square meter and albuminuria creatinine ratio greater than 300 mg/g (HCC) Vitamin D deficiency Hyperkalemia Hypertension, essential Hyperuricemia Other proteinuria 12/16/2023 11:16 AM EST [facility] Work Phone: 25-hydroxyvitamin D3 [Mass/volume] in Serum or Plasma VITAMIN D 25 HYDROXY Lab Routine Vitamin D deficiency 12/05/2024 8:47 AM EST [facility] Work Phone: ALBUMIN/CREAT RATIO RND UR ALBUMIN/CREAT RATIO RND UR Lab Routine Other proteinuria 08/11/2023 10:20 AM EDT [facility] Work Phone: ALBUMIN/CREAT RATIO RND UR ALBUMIN/CREAT RATIO RND UR Lab Routine Other proteinuria 04/18/2024 9:24 AM EDT [facility] Work Phone: Bacteria identified in Urine by Culture URINE CULTURE Microbiology Routine Frequent urination 11/21/2022 9:30 AM EST [facility] Work Phone: Bacteria identified in Urine by Culture URINE CULTURE Microbiology Routine Acute cystitis with hematuria Ordered: 02/20/2023 [facility] Work Phone: Comment on above: Ordered: 02/20/2023 Borrelia burgdorferi IgG and IgM panel - Serum LYME AB LATE >30 DAYS SYMPTOMS Lab Routine Acute pain of left knee 06/22/2024 10:54 AM EDT [facility] Bx abdl/retroperiton eal mass prq needle IMAGING GUIDED BIOPSY ABDOMEN/RETROPERITONEAL MASS Radiology Routine NHL (nodular histiocytic lymphoma) (HCC) Ordered: 05/19/2022 [facility] Work Phone: Comment on above: Ordered: 05/19/2022 C reactive protein [Mass/volume] in Serum or Plasma C-REACTIVE PROTEIN Lab Routine Acute pain of left knee 06/22/2024 10:54 AM T [facility] End: 03-02-2025 CBC W Auto Differential panel - Blood COMPLETE BLOOD COUNT AND DIFFERENTIAL Lab STAT Diffuse large B-cell 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) Once per month for 12 Occurrences starting 03/02/2024 until 03/02/2025, 1 completed [facility] Work Phone: Comment on above: Once per month for 12 Occurrences starti ng 03/02/2024 until 03/02/2025, 1 completed End: 03-02-2025 Comprehensive metabolic 2000 panel - Serum or Plasma COMPREHENSIVE METABOLIC PANEL Lab STAT Diffuse large B-cell 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) Once per month for 12 Occurrences starting 03/02/2024 until 03/02/2025, 1 completed [facility] Comment on above: Once per month for 12 Occurrences starti ng 03/02/2024 until 03/02/2025, 1 completed Creatine kinase [Enzymatic activity/volume] in Serum or Plasma CREATINE KINASE/CK Lab Routine Acute pain of left knee 06/22/2024 10:54 AM EDT [facility] End: 03-20-2024 Ct abdomen & pelvis w/contrast material CT ABD/PEL W IVCON Radiology Routine NHL (nodular histiocytic lymphoma) (HCC) 1 Occurrences starting 02/19/2023 until 03/20/2024 [facility] Work Phone: Comment on above: 1 Occurrences starting 02/19/2023 until 03/20/2024 End: 07-29-2024 Ct abdomen & pelvis w/o contrast material CT ABD/PEL WO IVCON Radiology STAT NHL (nodular histiocytic lymphoma) (HCC) 1 Occurrences starting 06/30/2023 until 07/29/2024 [facility] Work Phone: Comment on above: 1 Occurrences starting 06/30/2023 until 07/29/2024 CT Abdomen and Pelvi s WO contrast CT ABD/PEL WO IVCON Radiology Routine NHL unspecified type (HCC) 02/25/2024 10:38 AM [facility] End: 03-20-2024 CT CHEST W IVCON CT CHEST W IVCON Radiology Routine NHL (nodular histiocytic lymphoma) (HCC) 1 Occurrences starting 02/19/2023 until 03/20/2024 [facility] Work Phone: Comment on above: 1 Occurrences starting 02/19/2023 until 03/20/2024 CT Chest WO contrast CT CHEST WO IVCON Radiology Routine NHL unspecified type (HCC) 02/25/2024 10:38 AM T [facility] Work Phone: End: 08-15-2022 Ct pelvis w/contrast material [facility] Work Phone: Comment on above: 1 Occurrences starting 08/15/2022 until 08/15/2022 End: 07-29-2024 Ct thorax w/o contrast material CT CHEST WO IVCON Radiology STAT NHL (nodular histiocytic lymphoma) (HCC) 1 Occurrences starting 06/30/2023 until 07/29/2024 [facility] Work Phone: Comment on above: 1 Occurrences starting 06/30/2023 until 07/29/2024 Cyclic citrullinated peptide IgG Ab [Units/volume] in Serum or Plasma CCP ANTIBODY IGG Lab Routine Acute pain of left knee 06/22/2024 10:54 AM EDT [facility] Hemoglobin A1c/Hemoglobin.total in Blood HEMOGLOBIN A1C (POC) Lab Routine Type 2 diabetes mellitus without complication, with long-term current use of insulin ([facility]) Ordered: 05/02/2022 [facility] Work Phone: Comment on above: Ordered: 05/02/2022 Hemoglobin A1c/Hemoglobin.total in Blood HEMOGLOBIN A1C (POC) Lab Routine Ordered: 11/21/2022 [facility] Work Phone: Comment on above: Ordered: 11/21/2022 Hemoglobin A1c/Hemoglobin.total in Blood HEMOGLOBIN A1C (POC) Lab Routine Type 2 diabetes mellitus with diabetic polyneuropathy, without long-term current use of insulin ([facility]) Ordered: 05/26/2023 [facility] Work Phone: Comment on above: Ordered: 05/26/2023 Hemoglobin A1c/Hemoglobin.total in Blood HEMOGLOBIN A1C (POC) Lab Routine Type 2 diabetes mellitus with diabetic polyneuropathy, without long-term current use of insulin ([facility]) Ordered: 10/09/2023 [facility] Work Phone: Comment on above: Ordered: 10/09/2023 Hemoglobin A1c/Hemoglobin.total in Blood HEMOGLOBIN A1C (POC) Lab Routine Type 2 diabetes mellitus with diabetic polyneuropathy, without long-term current use of insulin ([facility]) Ordered: 02/18/2024 [facility] Work Phone: Comment on above: Ordered: 02/18/2024 Hemoglobin A1c/Hemoglobin.total in Blood HEMOGLOBIN A1C (POC) Lab Routine Type 2 diabetes mellitus with diabetic polyneuropathy, without long-term current use of insulin ([facility]) Ordered: 07/18/2024 [facility] Work Phone: Comment on above: Ordered: 07/18/2024 Hemoglobin A1c/Hemoglobin.total in Blood HEMOGLOBIN A1C (POC) Lab Routine Ordered: 02/28/2025 [facility] Work Phone: Comment on above: Ordered: 02/28/2025 Lipid 1996 panel - Serum or Plasma LIPID PANEL BASIC Lab Routine Hyperlipidemia, mixed 08/15/2022 1:46 PM EDT [facility] Work Phone: Lipid 1995 panel - Serum or Plasma LIPID PANEL BASIC Lab Routine Hyperlipidemia, mixed 04/18/2024 9:24 AM EDT [facility] Work Phone: End: 07-20-2023 Mri pelvis w/o & w/contrast material MRI PELVIS WO/W IVCON Radiology Routine Diffuse large B-cell 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) 1 Occurrences starting 06/20/2022 until 07/20/2023 [facility] Work Phone: Comment on above: 1 Occurrences starting 06/20/2022 until 07/20/2023 End: 05-31-2023 NM PET/CT SKULL-THIGH SUBSEQUENT NM PET/CT SKULL-THIGH SUBSEQUENT Radiology Routine Diffuse large B-cell lymphoma of solid organ excluding spleen (HCC) 1 Occurrences starting 05/01/2022 until 05/31/2023 [facility] Work Phone: Comment on above: 1 Occurrences starting 05/01/2022 until 05/31/2023 Nuclear Ab [Presence ] in Serum by Immunoassay CODY PANEL BLOOD SCRN Lab Routine Acute pain of left knee 06/22/2024 10:54 AM [facility] PAIN PANEL, UR QUANT PAIN PANEL, UR QUANT Lab Routine custodial use of drug 11/21/2022 9:30 AM [facility] [place] Work Phone: PAIN PANEL, UR QUANT PAIN PANEL, UR QUANT 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 11/21/2022 9:30 AM [facility] Work Phone: Parathyrin.intact [Mass/volume] in Serum or Plasma PTH INTACT BLD Lab Routine Stage 3b chronic kidney disease (HCC) Chronic kidney disease (CKD) stage G3b/A3, moderately decreased glomerular filtration rate (GFR) between 30-44 mL/min/1.73 square meter and albuminuria creatinine ratio greater than 300 mg/g ([facility]) Vitamin D deficiency Hyperkalemia Hypertension, essential Hyperuricemia Other proteinuria 12/16/2023 11:16 AM [facility] Work Phone: Patient Education ED Chest Pain, Uncertain Cause ED Diabetic Hyperglycemia [facility] Work Phone: End: 04-15-2024 Polysomnogram POLYSOMNOGRAM (PSG) Procedures Routine Paroxysmal atrial fibrillation (HCC) Hypertension, essential Hyperlipidemia, mixed Coronary artery calcification seen on CT scan 1 Occurrences starting 04/16/2023 until 04/15/2024 [facility] Work Phone: Comment on above: 1 Occurrences starting 04/16/2023 until 04/15/2024 PSA/PROSTSPECAG SCRN PSA/PROSTSP ECAG SCRN Lab Routine Screening for prostate cancer 01/29/2022 10:02 AM EDT [facility] Work Phone: Rheumatoid factor [Units/volume] in Serum or Plasma RHEUMATOID FACTOR Lab Routine Acute pain of left knee 06/22/2024 10:54 AM T [facility] Work Phone: SPECIMEN VALIDITY, URINE SPECIMEN VALIDITY, URINE 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 11/21/2022 9:30 AM EST [facility] Work Phone: UA DIP, URINE (POC) UA DIP, URIN E (POC) Lab Routine Frequent urination Ordered: 11/21/2022 [facility] Work Phone: Comment on above: Ordered: 11/21/2022 UA DIP, URINE (POC) UA DIP, URIN E (POC) Lab Routine Urinary frequency Ordered: 02/20/2023 [facility] Work Phone: Comment on above: Ordered: 02/20/2023 [facility] Immunizations Immunization Date Immunization Notes Care Provider Fa fina 12-30-2023 tetanus toxoid, redu arabella diphtheria toxoid, and acellular pertussis vaccine, adsorbed Osiris Paris APRN.MILL FEEDER Work Phone: [facility] Payers Date Payer Category Payer Self-pay 2023 Worker's Compensation [id number] 2021 [employer] BLUE CARD PPO OOS [id number] 2017 Unknown [employer] BLUE CARD PPO OOS [id number] 2017-Present [phone] [facility] [id number] [place] [id number] PPO [id number] 2017 Unknown [id number] 2017 Unknown [id number] 1965 Unknown [id number] Unknown [id number] Social History Date Type Detail Facility Start: 06-06-2020 End: 06-02-2025 Tobacco smoking status NHIS Ex-smoker [facility] Work Phone: Start: 10-26-1983 End: 10-26-2014 History of tobacco use Current smoker [facility] Start: 11-01-2021 End: 04-27-2025 Alcohol intake Current drinker of alcohol (finding) [facility] Start: 05-08-2020 End: 08-22-2020 History SDOH Alcohol Frequency 2 [facility] Start: 05-08-2020 End: 08-22-2020 History SDOH Alcohol Std Drinks 1 [facility] Start: 04-17-2017 History SDOH Alcohol Comment occasional [facility] Start: 05-08-2020 History SDOH Social Connections Phone 5 [facility] Start: 05-08-2020 History SDOH Social Connections Mosque 3 [facility] Start: 05-08-2020 History SDOH Physical Activity DPW 0 [facility] Start: 1965 Sex Assigned At Male [facility] Start: 01-20-2022 End: 08-21-2022 Exposure to SARS-CoV-2 (event) Not sure [facility] Start: 04-07-2022 End: 04-17-2022 Exposure to SARS-CoV-2 (event) Unable to assess [facility] Work Phone: Start: 10-26-1983 End: 10-26-2014 History of tobacco use Cigarette Smoker [facility] Work Phone: Start: 06-06-2020 End: 02-26-2023 Cigarettes smoked current (pack per day) - Reported 2.5 [facility] Start: 06-06-2020 End: 06-15-2024 Tobacco use and exposure Smokeless tobacco non-user [facility] Work Phone: Start: 07-10-2022 Tobacco Comment cigarette; Start date: 1983; Not interested in quitting smoking; Amount: 10-19 cigs/day; quit 06/2015; Tobacco modified 11/15/2015; Tobacco reviewed with patient 11/15/2015 [facility] Start: 05-08-2020 End: 02-26-2023 Social connection and isolation panel [facility] Do you belong to any clubs or organizations such as restoration groups, unions, fraternal or athletic groups, or school groups? Yes [facility] Are you now , , , , never or living with a partner? [facility] How often to you hav e a drink containing alcohol? Monthly or less [facility] How many standard dr inks containing alcohol do you have on a typical day? 1 or 2 [facility] How often do you hav e 6 or more drinks on 1 occasion? Never [facility] How hard is it for y ou to pay for the very basics like food, housing, medical care, and heating Somewhat hard [facility] Adult Depression Screening Assessment 1 [facility] Work Phone: Do you feel stress - tense, restless, nervous, or anxious, or unable to sleep at night because your mind is troubled all the time - these days [OSQ] Not at all [facility] (I/We) worried wheth er (my/our) food would run out before (I/we) got money to buy more. Sometimes true [facility] Start: 08-22-2020 Gender identity Identifies as male gender (finding) [facility] Start: 08-22-2020 Sexual orientation Heterosexual (finding) [facility] Has the Fannect, or Joyent threatened to shut off services in your home in past 12Mo No [facility] (I/We) worried wheth er (my/our) food would run out before (I/we) got money to buy more. Never true [facility] Medical Equipment Procedure Code Equipment Code Equipment Original Text Equipment Identifier Dates Stent [place] 6fr Taper [place] Polymer Phreecoat 26cm Ureteral - [id number] Start: 12-07-2020 Stent [place] 6fr Taper [place] Polymer Phreecoat 28cm Ureteral - [id number] Start: 02-08-2021 [id number], [id number], [id number], [id number], [id number], [id number] Start: 07-21-2019 End: 07-11-2024 Comment on above: 1 Strip four times d aily. E11.9 1 Strip before meals and at bedtime. Use as instructed 1 Each three times d aily. Please match the test strips and lancets Inject 1 Each subcut aneously four times daily as needed. Use as instructed Goals Date Patient Goal Desired Activity /State Personal health goal Personal health goal Comment on above: Formatting of this n ote might be different from the original. Schedule retinal exam by 09/09/19 Personal health goal Personal health goal Comment on above: Formatting of this n ote might be different from the original. Schedule retinal exam by 09/09/19 Functional Status Date Assessment Result Facility 06-13-2024 Are you deaf, or do you have serious difficulty hearing No 06/13/2024 11:54 AM Cordelia Flanagan LPN No [facility] 06-13-2024 Are you blind, or do you have serious difficulty seeing, even when wearing glasses No 06/13/2024 11:54 AM Cordelia Flanagan LPN No [facility] 06-13-2024 Do you have serious difficulty walking or climbing stairs Yes 06/13/2024 11:54 AM Cordelia Flanagan LPN Yes [facility] 06-13-2024 Do you have difficul ty dressing or bathing Yes 06/13/2024 11:54 AM Cordelia Flanagan LPN Yes [facility] 06-13-2024 Because of a physica l, mental, or emotional condition, do you have difficulty doing errands alone such as visiting a physician's office or shopping No 06/13/2024 11:54 AM Cordelia Flanagan LPN No [facility] Mental Status Date Assessment Result Facility 06-02-2025 Cognitive function Level Of Cons ciousness Awake;Alert;Appropriate;Fol lows Commands [facility] Work Phone: 06-13-2024 Because of a physica l, mental, or emotional condition, do you have serious difficulty concentrating, remembering, or making decisions No 06/13/2024 11:54 AM Cordelia Flanagan, REGULATOR INSPECTOR No [facility] Clinical Notes 10-30-2019 to 06-02-2025 Note Date & Type Note Facility 06-02-2025 Discharge summary [facility] 06-02-2025 Radiology Diagnostic study note [facility] Imaging Services [address] [place] [address] Chest 1 View (Portable) MR#: [id number] Acct: [id number] Name: YAMILKA SHARMA Rep #: [id number] : 1965 M 59 From: Ethan Tejada MD PCP: Dr. Najma Bloom DO Status: RE G ER Study:Chest 1 View (Portable) Date of Exam: 06/02/25 Exam# [id number] Ordering Dr: Marco Antonio Aquino MD PROCEDURE: CHEST 1 VIEW (PORTABLE) 06/02/2025 REASON FOR EXAM: CHEST PAIN and weakness. TECHNIQUE: Frontal view of the chest. COMPARISON: None. FINDINGS: LINES: Right chest port tip terminating in the distal SVC. LUNGS AND PLEURA: No focal airspace consolidation. Minimal linear basilar atelectasis/scarring bilaterally. No pleural effusion or pneumothorax. HEART AND MEDIASTINUM: The heart size and mediastinal contours are normal. BONES: No acute osseous abnormality. RAD/Chest 1 View (Portable) IMPRESSION: No Acute Findings. Reading Location: [facility] CC: Dr. Len Aquino MD; Dr. Najma Bloom DO ~ Grinder: Signed [facility] 06-02-2025 Discharge summary Note Date/Time June 02, 2025 5:27pm [facility] Medical Records Department [address] [place] [address] Emergency Department Summary 06/02/25 MR#: [id number] Acct: [id number] Name: YAMILKA SHARMA Rep #:[id number] : 1965 59 From: Len Aquino MD PCP: Dr. Najma Bloom DO Status:RE G ER Location: ED HPI History of Present Illness Chief Complaint: Chest Pain Informant: patient Onset/Context/Timing Onset: Today Activity at onset: gradual Timing: Continuous Quality: Positive for Dull Location: Substernal Current Severity: Mild Maximum Severity: Mild Worsened By: Nothing Relieved By: Nothing Associated Symptoms: Positive for - (Diarrhea.); Negative for Nausea, Vomiting, Diaphoresis, Dyspnea, Cough, Fever, Lightheadedness, Acid Reflux or Palpitations Narrative Narrative: 59-year-old male history of diabetes, A-fib, prior non-Hodgkin's lymphoma with aright-sided Mediport. He is finished with his chemotherapy. He is on Eliquis due to his A-fib. Patient states he just has been feeling that good he has beenhaving diarrhea. He has had elevated blood sugars and today noticed some chest discomfort not associated with exertion. Denies any melena. No fever. No vomiting. Prior Similar Symptoms: No Recent Illness/Hospitalization: No CVD Risk Factors: Positive for Diabetes PE Risk Factors: Negative for Recent Travel/Surgery, Recent Immobilization, Prior DVT or PE, Cancer or OCP + Smoking + >/=35 TAD Risk Factors: Negative for Marfan's Syndrome [facility] Medical History History of kidney stones Kidney disease Diabetes Afib Non-Hodgkin lymphoma Allergy/AdvReac Type Severity Reaction Status Date / Time clarithromycin (From Biaxin) Allergy Severe Swelling Verified 06/02/25 14:15 Sulfa (Sulfonamide Allergy Intermediate Hives Verified 06/02/25 14:15 Antibiotics) monosodium glutamate (msg) AdvReac Intermediate Abd Verified 06/02/25 14:15 cramps/diarrhea clindamycin AdvReac Diarrhea Verified 06/02/25 14:15 Surgical History Hx of nephrostomy History of tonsillectomy and adenoidectomy History of appendectomy Social History Smoking Status: Former smoker ROS ROS ED ROS Narrative Diarrhea. Nonexertional chest pain. Constitutional Constitutional ED: Denies chills or fever(s) Eyes Eyes: Reports none ENT ENT ED: Denies ear pain Cardiovascular Cardiovascular: Reports chest pain Respiratory/Chest Respiratory/Chest: Denies cough or dyspnea Gastrointestinal Gastrointestinal: Reports diarrhea; Denies abdominal pain, melena, nausea or vomiting Genitourinary Genitourinary ED: Denies dysuria or hematuria Musculoskeletal Musculoskeletal: Denies arthralgias or back pain Integumentary Denies abscess or Abrasions Neurologic Neurologic: Denies headache(s) Psychiatric Psychiatric: Denies anxiety Endocrine Endocrinology: Denies cold intolerance Hematologic/Lymphatic Hematologic/Lymphatic: Denies easy bleeding, easy bruising or lymphadenopathy Allergic/Immunologic Allergic/Immunologic ED: Denies mouth swelling, tongue swelling or urticaria EXAM Physical Exam Narrative Exam Narrative: 59-year-old male sitting upright in bed. No acute distress. Vital signs are stable afebrile. Pulse ox 99% on room air no signs hypoxia. H EENT exam pupilsround react light. Moist mucous membranes. Neck nontender no JVD. No lymphadenopathy. Lungs clear to auscultation bilaterally. Heart regular rhythmrate in the mid 80s no murmur. Chest wall and ribs nontender. Abdomen soft nontender. No peritoneal signs. Moving all 4 extremities. Calves are nontender without edema or cords. Normal dorsi plantarflexion. 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 Back nontender. Neurologically patient is awake alert. Answer questions following commands. Const Vital Signs: 06/02/25 14:13 06/02/25 15:03 06/02/25 15:04 Temperature 98.2 F Temperature Source Oral Pulse Rate 88 86 Respiratory Rate 18 17 Respiratory Effort Normal Non-Labored Blood Pressure 102/77 101/65 Blood Pressure Mean 85 77 Pulse Ox 99 99 Oxygen Delivery Method Room Air Room Air 06/02/25 16:00 Temperature Temperature Source Pulse Rate 81 Respiratory Rate 15 Respiratory Effort Blood Pressure 99/69 Blood Pressure Mean 79 Pulse Ox 97 Oxygen Delivery Method Room Air Positive well nourished and well developed; Negative for cachectic, contracturesor unkempt General Appearance ED: well developed and NAD; Negative for unkempt, cachectic, contractures or pallor Nutritional Appearance: Negative for cachectic HEENT Reports moist mucous membranes normocephalic and atraumatic Eyes PERRL and EOMs intact bilaterally Neck no lymphadenopathy, supple and no JVD Chest Wall inspection of chest normal and palpation of chest normal Resp normal respiratory effort and clear to auscultation bilaterally Cardio regular rate, regular rhythm, S1 normal heart sound, S2 normal heart sound and no murmurs Peripheral Pulses: pulses 2+ throughout GI normal to inspection, nondistended, normoactive bowel sounds, soft to palpation,non-tender, non-distended and no masses Back/Spine no CVA tenderness and no thoracic nor lumbar tenderness Extremity normal to inspection General Extremety ED: Negative for edema, pulses abnormal or tenderness General Extremity: Negative for edema or pulses abnormal Neuro oriented x3 and CN's II-XII intact bilaterally Sensorium / Orientation: awake, alert, oriented to person, oriented to place andoriented to time; Negative for confused, lethargic or stuporous Motor Exam: strength 5/5 throughout Psych mental status grossly normal Appearance: Negative for unkempt Skin no rashes or lesions noted and no wounds General Skin Exam: Negative for jaundice or pallor Rashes: No rashes noted Trauma: Negative for abrasion or laceration Heart Score History: Slightly/Non-Suspicious ECG: Normal Age: >45 - <65 years Risk Factors: 1 or 2 Risk Factors Troponin: </= Normal Limit Score: 2 MDM MDM MDM Narrative Medical decision making narrative: 59-year-old diabetic male history of A-fib and on Eliquis. With atypical chest pain and recent diarrhea. Exam is benign. I do not have a high suspicion. Cardiac. Undergoing cardiac workup. Repeat exam patient is doing well at 5:20 PM. I went over all test results of both he and his family. He and they are comfortable with him being discharged home. Outpatient follow-up with his primary care physician Dr. Schwartz. He willcontinue his current meds. I will write him off work this weekend. Knows to return if he is feeling worse. History & Record Review Discussion w/independent historian: Patient and Family Additional record(s) reviewed:: Prior inpatient record, Prior outpatient record,Prior ED visit and Prior labs Lab Data Attestation: I reviewed the patient's lab results. Lab results narrative: CBC shows a white count of 4. H&H 12.6 and 38. Platelets are low at 87. Electrolytes show sodium 132. Gap 12. BUN/creatinine of 44 and 1.56. Glucose 377. Initial troponin 36. 2-hour troponin 36. Labs: Laboratory Results - last 24 hr 06/02/25 06/02/25 14:18 16:30 WBC 4.8 RBC 4.73 Hgb 12.6 L Hct 38.3 L MCV 81.0 MCH 26.6 L MCHC 32.9 RDW Std Deviation 38.8 RDW Coeff of Santosh 13.3 Plt Count 87 L MPV 11.0 Immature Gran % (Auto) 0.600 Neut % (Auto) 67.9 Lymph % (Auto) 16.8 L [place] % (Auto) 9.9 Eos % (Auto) 4.2 Baso % (Auto) 0.6 Absolute Neuts (auto) 3.2 Absolute Lymphs (auto) 0.80 L Nucleated RBC % 0 Differential Comment SCANNED Sodium 132 L Potassium 4.1 Chloride 99 Carbon Dioxide 21.3 Anion Gap 12 BUN 44 H Creatinine 1.56 H Estim Creat Clear Calc 63.33 Est GFR (MDRD) Non-Af 51 L BUN/Creatinine Ratio 28.1 H Glucose 377 H Calcium 9.0 Troponin T High Sens 36 H Troponin T Hi Sens 2 Hr 36 H Radiography Chest X-Ray - ED: Read by ED Physician, Read by Radiologist, Normal, Heart, Lungs, Mediastinum, Bony Structures, No Acute Disease and Chronic Changes Diagnostic Testing: Clinical Impression(s) from Imaging Studies Chest X-Ray 06/02/25 15:17 IMPRESSION: No Acute Findings. Reading Location: [facility] Chest x-ray portable, single view, interpreted both by myself and the radiologist shows normal cardiac silhouette. Normal lung patiño. Chronic changes. Right-sided Mediport. No significant acute process. Rhythm Strip Rhythm Strip: Sinus Rhythm Rate: 86 Ectopy: None EKG Initial EKG: Attestation: I personally reviewed and interpreted this EKG as follows: Interpretation: Sinus Rhythm and No Acute Injury Pattern Comments: Normal sinus rhythm rate 86 no acute signs of PA or ischemia. Discharge Plan Triage Chief Complaint: Chest Pain ED Provider: Len Aquino Dx/Rx/DC Orders Clinical Impression: Atypical chest pain, Hyperglycemia due to diabetes mellitus, Diarrhea, History of atrial fibrillation, Chronic anticoagulation Instructions: ED Chest Pain, Uncertain Cause, ED Diabetic Hyperglycemia Primary Care Provider: Najma Bloom Referrals: Najma Bloom DO [Primary Care Provider] - As soon as possible (Call our office on Thursday get an appointment next week.) Activity Restrictions/Additional Instructions: Watch your blood sugars closely. Take your medications as prescribed. Call and follow-up your primary care physician on Thursday. Return if feeling worse. Off work today through Thursday inclusive. Print Language: Nauruan Disposition Disposition: Home, Self Care What to do if you have Problems For any increased pain, shortness of breath, bleeding, nausea or vomiting, chestpain, or any unexpected problems, contact your Primary Care Provider. Call [facility] ([phone]) or report to the closest Emergency Room. Call 911 if necessary. 06/02/25 1727 <Electronically signed by Len Aquino MD> Cosigner Signature (if applicable): CC: Dr. Najma Bloom, DO ~ Signed [facility] Work Phone: [phone]) 798-188008-04-2025 Telephone encounter Note* Telephone Encounter - Criss Devi MA - 05/29/2025 2:08 PM EDT Patient's phones requesting refills as follows: Needs short term to [facility]. Requested Prescriptions Pending Prescriptions Disp Refills metFORMIN 750 mg tablet 60 tablet 0 Sig: Take 1 tablet by mouth two times a day with meals. Please review and advise. Criss Devi MA [facility]08-04-2025 Miscellaneous Notes* Telephone Encounter - Criss Devi MA - 05/29/2025 2:08 PM EDT Patient's phones requesting refills as follows: Needs short term to [facility]. Requested Prescriptions Pending Prescriptions Disp Refills metFORMIN 750 mg tablet 60 tablet 0 Sig: Take 1 tablet by mouth two times a day with meals. Please review and advise. Criss Devi MA documented in this encounterW[facility] Telephone encounter Note * Telephone Encounter - Criss Devi MA - 05/29/2025 7:26 AM EDT patient requesting refills as follows: Last seen 02/28/25 . Last refill went to local pharmacy . Requested Prescriptions Pending Prescriptions Disp Refills metFORMIN 750 mg tablet 180 tablet 3 Sig: Take 1 tablet by mouth two times a day with meals. Please review and advise. Criss Devi MA [facility]08-04-2025 Miscellaneous Notes* Telephone Encounter - Criss Devi MA - 05/29/2025 7:26 AM EDT patient requesting refills as follows: Last seen 02/28/25 . Last refill went to local pharmacy . Requested Prescriptions Pending Prescriptions Disp Refills metFORMIN 750 mg tablet 180 tablet 3 Sig: Take 1 tablet by mouth two times a day with meals. Please review and advise. Criss Devi MA documented in this encounterW[facility]07-21-2025 Telephone encounter Note * Telephone Encounter - Criss Devi MA - 05/15/2025 2:46 PM EDT patient phones requesting refills as follows: Last seen 02/28/25 . States [facility] is out of Metformin and needs a 30 day supply to [facility]. Requested Prescriptions Pending Prescriptions Disp Refills metFORMIN 750 mg tablet 60 tablet 0 Sig: Take 1 tablet by mouth two times a day with meals. Please review and advise. Criss Devi MA [facility]07-21-2025 Miscellaneous Notes* Telephone Encounter - Criss Devi MA - 05/15/2025 2:46 PM EDT patient phones requesting refills as follows: Last seen 02/28/25 . States [facility] is out of Metformin and needs a 30 day supply to [facility]. Requested Prescriptions Pending Prescriptions Disp Refills metFORMIN 750 mg tablet 60 tablet 0 Sig: Take 1 tablet by mouth two times a day with meals. Please review and advise. Criss Devi MA documented in this encounterWadsworth-[facility]07-15-2025 Telephone encounter Note * Telephone Encounter - Criss Devi MA - 05/09/2025 2:40 PM EDT Received fax stating prior auth was approved from 03/09/25 - 05/08/26 reference# [id number]. Criss Devi MA [facility]07-15-2025 Miscellaneous Notes* Telephone Encounter - Criss Devi MA - 05/09/2025 2:40 PM EDT Received fax stating prior auth was approved from 03/09/25 - 05/08/26 reference# [id number]. Criss Devi MA * Telephone Encounter - Criss Devi MA - 05/09/2025 9:03 AM EDT Received fax from [employer] stating patient's Metformin requires prior auth. Went on Covermymeds using [place]: [id number] and submitted prior auth. Criss Devi MA documented in this encounterWadsworth-[facility]man [facility]07-15-2025 Telephone encounter Note * Telephone Encounter - Criss Devi MA - 05/09/2025 9:03 AM EDT Received fax from [employer] stating patient's Metformin requires prior auth. Went on Covermymeds using [place]: [id number] and submitted prior auth. Criss Devi MA [facility]07-14-2025 Telephone encounter Note* Telephone Encounter - Criss Devi MA - 05/08/2025 9:36 AM EDT patient electronically requesting refills as follows: Last seen 02/28/25 . Last refill 02/28/25 . Requested Prescriptions Pending Prescriptions Disp Refills metFORMIN 750 mg tablet 180 tablet 1 Sig: Take 1 tablet by mouth two times a day with meals. Please review and advise. Criss Devi MA [facility]07-14-2025 Miscellaneous Notes* Telephone Encounter - Criss Devi MA - 05/08/2025 9:36 AM EDT patient electronically requesting refills as follows: Last seen 02/28/25 . Last refill 02/28/25 . Requested Prescriptions Pending Prescriptions Disp Refills metFORMIN 750 mg tablet 180 tablet 1 Sig: Take 1 tablet by mouth two times a day with meals. Please review and advise. Criss Devi MA documented in this encounterWadsworth-Rittman [facility]07-07-2025 Telephone encounter Note * Telephone Encounter - Najma Bloom DO - 05/01/2025 8:49 PM EDT Pt should call social security to let them know he plans to apply for disability. When I get the paperwork, she should make an appt so we can fill them out Najma Bloom DO [facility]07-07-2025 Miscellaneous Notes* Telephone Encounter - Najma Bloom DO - 05/01/2025 8:49 PM EDT Pt should call social security to let them know he plans to apply for disability. When I get the paperwork, she should make an appt so we can fill them out Najma Bloom DO * Telephone Encounter - Laura Camacho - 05/01/2025 12:39 PM EDT Patient called and wanted to discuss with Kamlesh Bloom about starting the process with disability. He said he is now ready and would like a call back to discuss it more. There was no available appointments this week to schedule. Thanks documented in this encounterWadsworth-[facility]itt[facility]07-07-2025 Telephone encounter Note * Telephone Encounter - Laura Camacho - 05/01/2025 12:39 PM EDT Patient called and wanted to discuss with Kamlesh Bloom about starting the process with disability. He said he is now ready and would like a call back to discuss it more. There was no available appointments this week to schedule. Thanks [facility]07-03-2025 Instructions* Patient Instructions* Osiris Paris APRN.MILL FEEDER - 04/27/2025 9:21 AM EDT We discussed your blood pressure: - Your blood pressure is slightly low today but within an acceptable range. No changes will be madeto your blood pressure medications at this time. - Continue checking your blood pressure at home periodically. You mentioned it is slightly higher at home but not significantly different. We discussed your triglycerides and cholesterol: - It has been about a year since your last cholesterol blood draw. I have ordered a new cholesterolpanel to check your levels, including triglycerides. - Your triglycerides were previously elevated at 995. If they remain high, we may need to add a medication specifically targeting triglycerides, as your current medication, rosuvastatin, primarily addresses LDL cholesterol. - Elevated triglycerides can worsen diabetes, and uncontrolled diabetes can also elevate triglycerides. These conditions are interconnected, so managing both is important. We discussed your diet: - You are eating a healthy diet with fruits, vegetables, and proteins. However, melons and some fruits are high in sugar, which can impact your diabetes and triglycerides. - Limit high-sugar fruits like melons and cherries, and focus on lower-sugar options such as berries, which are a better choice for managing your blood sugar and triglycerides. We discussed your cardiology care: - You will need a new sock liner. I recommend scheduling an appointment with Dr. Cunningham in 8-9 months, after the winter season. Follow-up: - Please complete the cholesterol blood draw as ordered. - Continue monitoring your blood pressure at home and let us know if it becomes significantly higher or lower. - Follow up with Dr. Bloom in May as planned. - Contact our office if you experience any new or worsening symptoms, such as chest pain, shortnessof breath, or swelling in your legs. .Osiris Paris APRN.MILL FEEDER documented in this encounterWadsworth-Rittman [facility]07-03-2025 NoteHNO ID: [id number] Author: OSIRIS PARIS APRN.CNP Service: ? Author Type: Nurse Practitioner Type: Progress Notes Filed: 04/27/2025 14:56 Note Text: [facility] [place] Osiris Kimbrough Department of Cardiovascular Medicine SECTION OF CLINICAL CARDIOLOGY OUTPATIENT VISIT DATE April 27, 2025 OUTPATIENT VISIT TYPE ESTABLISHED PRIMARY CARE PHYSICIAN: Najma Bloom [address] [place] [address] REFERRING PHYSICIAN: No referring provider defined for this encounter. CHIEF COMPLAINT: Follow Up (Edema/DizzinessEKG 12/02/24/SHARON 08/16/24 Chetan/Stress 02/26/23/ZIO 02/18/23/ECHO 01/14/23) HISTORY OF PRESENT ILLNESS: Mr. Sharma is a 59 year old male with HTN, HLD, vitamin d deficiency, CKE 3b, large Bcell lymphoma remission x 5 years who presents today for a cardiovascular medicine follow-up visit last seen by Dr Benton 07/2024 and no changes were made at that time. I last saw him 01/2024. . The patient is a 59-year-old male with a history of hypertension, hypertriglyceridemia, and T2DM, presenting for follow-up. The patient reports feeling not too bad overall and denies experiencing chest pain, dyspnea, or leg swelling. He notes occasional lightheadedness when standing up quickly, which resolves shortly thereafter. He monitors his blood pressure at home, noting readings slightly higher than today's, but still within a similar range. He mentions that his blood pressure has significantly improved from previous readings of approximately 200/200 mmHg. He follows up with Dr. Bloom in May. His last cholesterol panel was about a year ago, with triglycerides reportedly at 995 mg/dL. He is scheduled for upcoming labs. He follows a diet rich in fruits, vegetables, and proteins, consuming melons, berries, and cherries. He has a history of cancer. He is currently taking rosuvastatin. Subjective PAST MEDICAL HISTORY Diagnosis Date Acute exacerbation of chronic obstructive airways disease (HCC) Rx for augmentin, symptomatic care as needed. Patient denies COPD, asthma, uses an inhaler PRN usually about once a year with hot weather Anemia Depression Diffuse large B cell lymphoma (HCC) 07/14/2019 Encounter for screening for malignant neoplasm of prostate Essential hypertension 05/26/2024 continue Lisinopril Hydronephrosis Hydronephrosis with ureteral stricture Hypomagnesemia 10/30/2019 Nausea and vomiting 01/09/2023 Obesity, Class II, BMI 35-39.9 12/15/2022 DEISI (obstructive sleep apnea) mild and no CPAP Paroxysmal atrial fibrillation (HCC) 01/10/2023 Prostatitis 01/09/2023 Sepsis due to gram-negative UTI (HCC) 10/25/2019 Thrombocytopenia Type 2 diabetes mellitus (HCC) 05/26/2024 continue current meds Ureteral obstruction, left Urinary tract infection Vitamin D deficiency 01/09/2023 PAST SURGICAL HISTORY Procedure Laterality Date AMPUTATION TOE,MT-P JT Right 05/2024 right great toe - [place] [facility] [place] ARTHROTOMY W/MENISCUS REPAIR KNEE Left 07/26/2024 [place] [facility] [place] ASPIRATE AND BIOPSY 07/20/2019 CYSTOSCOPY 2019 KNIFE,CARPAL TUNNEL,[id number] Bilateral Carpal Tunnel Surgery 06/10/2013 NEPHROSTOMY TUBE 06/2019 PAST SURGICAL HISTORY OF 2013 temporal arterial biopsy PAST SURGICAL HISTORY OF 2013 sinus scraping, deviated septum repair PAST SURGICAL HISTORY OF Right PURPLE POWER PORT RIGHT CHEST PAST SURGICAL HISTORY OF Right TESTICLE REMOVED PAST SURGICAL HISTORY OF 02/19/2021 ureter stent Social History Tobacco Use Smoking status: Former Current packs/day: 0.00 Average packs/day: 2.5 packs/day for 31.0 years (77.5 ttl pk-yrs) Types: Cigarettes Start date: 10/26/1983 Quit date: 10/26/2014 Years since quittin.5 Smokeless tobacco: Never Tobacco comments: cigarette; Start date: 1983; Not interested in quitting smoking; Amount: 10-19 cigs/day; quit 06/2015; Tobacco modified 11/15/2015; Tobacco reviewed with patient 11/15/2015 Vaping Use Vaping status: Never Used Substance Use Topics Alcohol use: Yes Comment: occasional Drug use: No FAMILY HISTORY Problem Relation Age of Onset other (Other inflammatory connective disorder) Mother Scleroderma other (Respiratory disorder) Mother other (Rheumatologic disorder) Mother other (Systemic lupus) Mother Heart Father Diabetes Father Diabetes Brother Diabetes Brother Cancer No Family History ALLERGIES: ALLERGIES Allergen Reactions Aspartame Intolerance Severe headache Bactrim [Sulfametho* Hives, Intolerance Reaction: gas Sensitivity: Intolerance. Sensitivity: Intolerance Biaxin [Clarithromy* Unknown Indigestion/gas Influenza Vaccine T* Unknown Flu Monosodium Glutamate Diarrhea Monosodium Glutamat* Intolerance Severe headache Pantoprazole Diarrhea Sulfa (Sulfonamide * Rash, Hives Clindamycin Hcl Diarrhea, GI Upset, Vomiting Reaction: Nausea/vomiting/diarrhea Other [place] (more content not included)... [facility]07-03-2025 History of Present illness Narrative* Osiris Paris APRN.MILL FEEDER - 04/27/2025 9:03 AM EDT Images from the original note were not included. [facility] [place] Osiris Kimbrough Department of Cardiovascular Medicine SECTION OF CLINICAL CARDIOLOGY OUTPATIENT VISIT DATE April 27, 2025 OUTPATIENT VISIT TYPE ESTABLISHED PRIMARY CARE PHYSICIAN: [place] [address] REFERRING PHYSICIAN: No referring provider defined for this encounter. CHIEF COMPLAINT: Follow Up (Edema/DizzinessEKG 12/02/24/SHARON 08/16/24 Chetan/Stress 02/26/23/ZIO 02/18/23/ECHO 01/14/23) HISTORY OF PRESENT ILLNESS: Mr. Sharma is a 59 year old male with HTN, HLD, vitamin d deficiency, CKE 3b, large Bcell lymphomaremission x 5 years who presents today for a cardiovascular medicine follow-up visit last seen by Dr Benton 07/2024 and no changes were made at that time. I last saw him 01/2024. . The patient is a 59-year-old male with a history of hypertension, hypertriglyceridemia, and T2DM, presenting for follow-up. The patient reports feeling not too bad overall and denies experiencing chest pain, dyspnea, or leg swelling. He notes occasional lightheadedness when standing up quickly, which resolves shortly thereafter. He monitors his blood pressure at home, noting readings slightly higher than today's, but still within a similar range. He mentions that his blood pressure has significantly improved from previous readings of approximately 200/200 mmHg. He follows up with Dr. Bloom in May. His last cholesterol panel was about a year ago, with triglycerides reportedly at 995 mg/dL. He is scheduled for upcoming labs. He follows a diet rich in fruits, vegetables, and proteins, consuming melons, berries, and cherries. He has a history of cancer. He is currently taking rosuvastatin. Subjective PAST MEDICAL HISTORY Diagnosis Date Acute exacerbation of chronic obstructive airways disease (HCC) Rx for augmentin, symptomatic care as needed. Patient denies COPD, asthma, uses an inhaler PRN usually about once a year with hot weather Anemia Depression Diffuse large B cell lymphoma (HCC) 07/14/2019 Encounter for screening for malignant neoplasm of prostate Essential hypertension 05/26/2024 continue Lisinopril Hydronephrosis Hydronephrosis with ureteral stricture Hypomagnesemia 10/30/2019 Nausea and vomiting 01/09/2023 Obesity, Class II, BMI 35-39.9 12/15/2022 DEISI (obstructive sleep apnea) mild and no CPAP Paroxysmal atrial fibrillation (HCC) 01/10/2023 Prostatitis 01/09/2023 Sepsis due to gram-negative UTI (HCC) 10/25/2019 Thrombocytopenia Type 2 diabetes mellitus (HCC) 05/26/2024 continue current meds Ureteral obstruction, left Urinary tract infection Vitamin D deficiency 01/09/2023 PAST SURGICAL HISTORY Procedure Laterality Date AMPUTATION TOE,MT-P JT Right 05/2024 right great toe - @ [facility] [place] 1982 ARTHROTOMY W/MENISCUS REPAIR KNEE Left 07/26/2024 @ [facility] [place] ASPIRATE & BIOPSY 07/20/2019 CYSTOSCOPY 2019 KNIFE,CARPAL TUNNEL,[id number] Bilateral Carpal Tunnel Surgery 06/10/2013 NEPHROSTOMY TUBE 06/2019 PAST SURGICAL HISTORY OF 2012 temporal arterial biopsy PAST SURGICAL HISTORY OF 2012 sinus scraping, deviated septum repair PAST SURGICAL HISTORY OF Right PURPLE POWER PORT RIGHT CHEST PAST SURGICAL HISTORY OF Right TESTICLE REMOVED PAST SURGICAL HISTORY OF 02/19/2021 ureter stent Social History Tobacco Use Smoking status: Former Current packs/day: 0.00 Average packs/day: 2.5 packs/day for 31.0 years (77.5 ttl pk-yrs) Types: Cigarettes Start date: 10/26/1983 Quit date: 10/26/2014 Years since quittin.5 Smokeless tobacco: Never Tobacco comments: cigarette; Start date: 1983; Not interested in quitting smoking; Amount: 10-19 cigs/day; quit 06/2015; Tobacco modified 11/15/2015; Tobacco reviewed with patient 11/15/2015 Vaping Use Vaping status: Never Used Substance Use Topics Alcohol use: Yes Comment: occasional Drug use: No FAMILY HISTORY Problem Relation Age of Onset other (Other inflammatory connective disorder) Mother Scleroderma other (Respiratory disorder) Mother other (Rheumatologic disorder) Mother other (Systemic lupus) Mother Heart Father Diabetes Father Diabetes Brother Diabetes Brother Cancer No Family History ALLERGIES: ALLERGIES Allergen Reactions Aspartame Intolerance Severe headache Bactrim [Sulfametho* Hives, Intolerance Reaction: gas Sensitivity: Intolerance. Sensitivity: Intolerance Biaxin [Clarithromy* Unknown Indigestion/gas Influenza Vaccine T* Unknown Flu Monosodium Glutamate Diarrhea Monosodium Glutamat* Intolerance Severe headache Pantoprazole Diarrhea Sulfa (Sulfonamide * Rash, Hives Clindamycin Hcl Diarrhea, GI Upset, Vomiting Reaction: Nausea/vomiting/diarrhea Other Reaction: stomach cramps Sensitivity: Intolerance MEDICATIONS: gabapentin (NEURONTIN) 600 mg tablet Take 1 tablet by mouth three times a day for 90 days. furosemide (LASIX) 40 mg tablet Take 1 tablet by mouth once daily. DULoxetine (CYMBALTA) 60 mg capsule Take 1 capsule by mouth two times a day. furosemide (LASIX) 40 mg tablet TAKE 1 TABLET DAILY rosuvastatin (CRESTOR) 40 mg tablet TAKE 1 TABLET DAILY semaglutide (OZEMPIC) 2 mg/dose (8 mg/3 mL) pen injector Inject 2 mg subcutaneously one time a week. metFORMIN 750 mg tablet Take 1 tablet by mouth two times a day with meals. metoprolol tartrate, short acting, (LOPRESSOR) 25 mg tablet Take 1 tablet by mouth every 12 hours. glimepiride (AMARYL) 4 mg tablet TAKE 1 TABLET TWICE A DAY WITH MEALS albuterol HFA (PROVENTIL HFA, VENTOLIN HFA) 90 mcg/actuation inhaler Inhale 2 puffs as instructed every 4 hours as needed for wheezing/shortness of breath. sodium bicarbonate 650 mg tablet Take 2 tablets by mouth two times a day. lisinopril (ZESTRIL) 5 mg tablet Take 1 tablet by mouth once daily. ergocalciferol 50,000 unit capsule (VITAMIN D2, DRISDOL) Take 1 capsule by mouth one time a week. apixaban (ELIQUIS) 5 mg tab(s) Take 1 tablet by mouth two times a day. acetaminophen (TYLENOL) 325 mg tablet Take 650 mg by mouth every 6 hours as needed. insulin glargine (LANTUS SOLOSTAR U-100 INSULIN) 100 unit/mL (3 mL) Inject 30 Units subcutaneously every morning. dilTIAZem CD (CARDIZEM CD, CARTIA XT) 120 mg 24 hr capsule Take 1 capsule by mouth once daily. blood sugar diagnostic (ONETOUCH VERIO TEST STRIPS) test strip 1 Strip two times a day. Use with blood glucose test two times a day. Insulin Dep? No dapagliflozin propanediol (FARXIGA) 10 mg tablet Take 1 tablet by mouth daily with breakfast. SITagliptin phosphate (JANUVIA) 100 mg tablet Take 1 tablet by mouth once daily. allopurinol (ZYLOPRIM) 100 mg tablet take 1 tablet twice a day lancets (ONETOUCH DELICA PLUS LANCET) 33 gauge Use with blood glucose test three times a day. Insulin Dep? Yes blood sugar diagnostic (ONETOUCH VERIO TEST STRIPS) test strip Use with blood glucose test three times a day. Insulin Dep? Yes lidocaine-prilocaine (EMLA) 2.5-2.5 % cream APPLY TO AFFECTED AREA NEEDED PRIOR TO CHEMOTHERAPY Blood-Glucose Meter 1 Each three times daily. Please match the test strips and lancets sildenafil (REVATIO) 20 mg tablet Take 3-5 tablets by mouth once daily as needed. Objective PHYSICAL EXAMINATION: Pulse 72 Ht 182.9 cm (6') Wt 124.1 kg (273 lb 9.5 oz) BMI 37.11 kg/m General: Alert & oriented, no acute distress Skin: Normal HEENT: Pupils equal, round. Oral cavity, oropharynx clear Neck: Supple, no mass Breast: Deferred Respiratory: Clear to auscultation, bilaterally Cardiovascular: Jugular venous pressure normal. Regular rate and rhythm, normal S1 and S2, no murmurs or added sounds Abdomen: Soft MSK: No joint swelling, erythema, or tenderness Extremities: No clubbing, cyanosis, or edema CARDIOVASCULAR MEDICINE TESTING: No Cardiovascular testing perfomed today. Last EKG Result Conclusion ECG COMPLETE Collected: 06/10/2024 1:22 PM (Final result) Impression: SINUS RHYTHM WITH 1ST DEGREE A-V BLOCK OTHERWISE NORMAL ECG NO PREVIOUS ECGS AVAILABLE Confirmed by MD MCINTOSH VINAYAK ([id number]) on 06/11/2024 10:54:[address] Result Conclusion CT CHEST WO IVCON Exam End: 12/05/2024 11:24 AM (Final result) Impression: IMPRESSION: 1. Emphysema, with mild, diffuse bronchiectasis. Stable parenchymal scarring is seen within the anterior segment of the left upper lobe. Stable reticulation within the periphery of the lungs and lower lobes, bilaterally, suggesting interstitial disease/scarring. Stable subcentimeter pulmonary nodules. No new pulmonary nodule is identified. 2. No berto lymphadenopathy is seen within the chest. Grinder: PSCB Transcribe Date/Time: Dec 08 2024 6:06A Dictated by : RAMESH RIOS MD This examination was interpreted and the report reviewed and electronically signed by: RAMESH RIOS MD on Dec 08 2024 6:09AM EST There were no tests performed for review. I personally interviewed, confirmed and edited the above information if obtained by others. Conclusion: 1. Essential hypertension (I10) Blood pressure is well-controlled on current medication regimen. Occasional orthostatic dizziness reported, resolving upon settling. - Continue current antihypertensive medications. - Monitor blood pressure at home. 2. Dyslipidemia (E78.5) Hypertriglyceridemia (E78.1) Previously elevated triglycerides at 995 mg/dL. Currently on rosuvastatin, which primarily targets LDL cholesterol. - Ordered lipid panel to assess current triglyceride levels. - Discussed dietary modifications to reduce sugar intake, particularly from high-sugar fruits like melons; recommended increasing intake of berries. - Follow-up with Dr. Bloom in May. PLAN AND RECOMMENDATIONS: We discussed your blood pressure: - Your blood pressure is slightly low today but within an acceptable range. No changes will be madeto your blood pressure medications at this time. - Continue checking your blood pressure at home periodically. You mentioned it is slightly higher at home but not significantly different. We discussed your triglycerides and cholesterol: - It has been about a year since your last cholesterol blood draw. I have ordered a new cholesterolpanel to check your levels, including triglycerides. - Your triglycerides were previously elevated at 995. If they remain high, we may need to add a medication specifically targeting triglycerides, as your current medication, rosuvastatin, primarily addresses LDL cholesterol. - Elevated triglycerides can worsen diabetes, and uncontrolled diabetes can also elevate triglycerides. These conditions are interconnected, so managing both is important. We discussed your diet: - You are eating a healthy diet with fruits, vegetables, and proteins. However, melons and some fruits are high in sugar, which can impact your diabetes and triglycerides. - Limit high-sugar fruits like melons and cherries, and focus on lower-sugar options such as berries, which are a better choice for managing your blood sugar and triglycerides. We discussed your cardiology care: - You will need a new sock liner. I recommend scheduling an appointment with Dr. Cunningham in 8-9 months, after the winter season. Follow-up: - Please complete the cholesterol blood draw as ordered. - Continue monitoring your blood pressure at home and let us know if it becomes significantly higher or lower. - Follow up with Dr. Bloom in May as planned. - Contact our office if you experience any new or worsening symptoms, such as chest pain, shortnessof breath, or swelling in your legs. CONTACT INFORMATION: Osiris Paris APRN.JU Cardiology Nurse Practitioner Section of Regional Cardiology [facility] Dept of Cardiovascular Medicine [facility] [place] [address] [place] [address] Office Office This note was partially generated using [employer] voice recognition system and may contain errors related to that system including grammar, punctuation, spelling, and words that may be inappropriate documented in this encounterWadsworth-[facility]06-30-2025 Telephone encounter Note * Telephone Encounter - Criss Devi MA - 04/24/2025 10:13 AM EDT pharmacy electronically requesting refills as follows: Last seen 02/28/25 . Last refill 01/25/25 . Requested Prescriptions Pending Prescriptions Disp Refills furosemide (LASIX) 40 mg tablet [Pharmacy Med Name: FUROSEMIDE TABS 40MG] 90 tablet 3 Sig: TAKE 1 TABLET DAILY Please review and advise. Criss Devi MA [facility]06-30-2025 Miscellaneous Notes* Telephone Encounter - Criss Devi MA - 04/24/2025 10:13 AM EDT pharmacy electronically requesting refills as follows: Last seen 02/28/25 . Last refill 01/25/25 . Requested Prescriptions Pending Prescriptions Disp Refills furosemide (LASIX) 40 mg tablet [Pharmacy Med Name: FUROSEMIDE TABS 40MG] 90 tablet 3 Sig: TAKE 1 TABLET DAILY Please review and advise. Criss Devi MA documented in this encounterWadsworth-Rittman Hospital06-30-2025 Telephone encounter Note * Telephone Encounter - Criss Devi MA - 04/24/2025 10:12 AM EDT patient electronically requesting refills as follows: Last seen 02/28/25 . Last refill duloxetine 03/28/25, gabapentin, furosemide 01/25/25 . Requested Prescriptions Pending Prescriptions Disp Refills gabapentin (NEURONTIN) 600 mg tablet 270 tablet 0 Sig: Take 1 tablet by mouth three times a day for 90 days. furosemide (LASIX) 40 mg tablet 90 tablet 0 Sig: Take 1 tablet by mouth once daily. DULoxetine (CYMBALTA) 60 mg capsule 60 capsule 0 Sig: Take 1 capsule by mouth two times a day. Please review and advise. Criss Devi MA [facility]06-30-2025 Miscellaneous Notes* Telephone Encounter - Criss Devi MA - 04/24/2025 10:12 AM EDT patient electronically requesting refills as follows: Last seen 02/28/25 . Last refill duloxetine 03/28/25, gabapentin, furosemide 01/25/25 . Requested Prescriptions Pending Prescriptions Disp Refills gabapentin (NEURONTIN) 600 mg tablet 270 tablet 0 Sig: Take 1 tablet by mouth three times a day for 90 days. furosemide (LASIX) 40 mg tablet 90 tablet 0 Sig: Take 1 tablet by mouth once daily. DULoxetine (CYMBALTA) 60 mg capsule 60 capsule 0 Sig: Take 1 capsule by mouth two times a day. Please review and advise. Criss Devi MA documented in this encounterWadsworth-Rittman Hospital06-12-2025 Telephone encounter Note * Telephone Encounter - Criss Devi MA - 04/06/2025 7:28 AM EDT pharmacy electronically requesting refills as follows: Last seen 02/28/25 . Last refill 04/06/24 . Requested Prescriptions Pending Prescriptions Disp Refills rosuvastatin (CRESTOR) 40 mg tablet [Pharmacy Med Name: ROSUVASTATIN TABS 40MG] 90 tablet 3 Sig: TAKE 1 TABLET DAILY Please review and advise. Criss Devi MA [facility]06-12-2025 Miscellaneous Notes* Telephone Encounter - Criss Devi MA - 04/06/2025 7:28 AM EDT pharmacy electronically requesting refills as follows: Last seen 02/28/25 . Last refill 04/06/24 . Requested Prescriptions Pending Prescriptions Disp Refills rosuvastatin (CRESTOR) 40 mg tablet [Pharmacy Med Name: ROSUVASTATIN TABS 40MG] 90 tablet 3 Sig: TAKE 1 TABLET DAILY Please review and advise. Criss Devi MA documented in this encounterWadsworth-[facility]06-[facility] Telephone encounter Note * Telephone Encounter - Sonia Coffey MA - 03/28/2025 10:47 AM EDT Patient called stating he needs a rx of cymbalta LU to [facility] in [place] for his legs. I don't see that we have ever prescribed this please advise Sonia Coffey MA [facility]06-03-2025 Miscellaneous Notes* Telephone Encounter - Sonai Coffey MA - 03/28/2025 10:47 AM EDT Patient called stating he needs a rx of cymbalta LU to [facility] in [place] for his legs. I don't see that we have ever prescribed this please advise Sonia Coffey MA documented in this encounterWadsworth-Rittman [facility]05-06-2025 NoteHNO ID: [id number] Author: NAJMA BLOOM, DO Service: ? Author Type: Physician Type: Progress Notes Filed: 03/26/2025 15:16 Note Text: Subjective HPI David is a 59-year-old male with his here for f/u DM. Diabetes Mellitus: - Recent A1c: 10.3. - Reports consistently elevated blood glucose levels, even after consuming minimal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 Class III, BMI >= 40 Leg Swelling Obesity, Class II, Bmi 35-39.9 Shelter Current Use of Anticoagulant Cellulitis and Abscess of Foot Acute Pain of Left Knee Effusion of Left Knee Hemarthrosis Diabetic Ulcer of Toe of Right Foot Associated With Type 2 Diabetes Mellitus, With Bone InvolvementWithout Evidence of Necrosis (Hcc) Acute Medial Meniscal Tear, Left, Subsequent Encounter Essential Hypertension Type 2 Diabetes Mellitus (Hcc) Simple Chronic Bronchitis (Hcc) Stage 3b Chronic Kidney Disease (Hcc) Class 1 Obesity Due to Excess Calories With Serious Comorbidity and Body Mass Index (Bmi) of 33.0 to 33.9 in Adult 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 Involving Knee Joint, Left Physical Debility Depression Aftercare History of Amputation of Right Great Toe (Hcc) Hyperparathyroidism (Hcc) Social History Tobacco Use Smoking status: Former Current packs/day: 0.00 Average packs/day: 2.5 packs/day for 31.0 years (77.5 ttl pk-yrs) Types: Cigarettes Start date: 10/26/1983 Quit date: 10/26/2014 Years since quittin.8 Smokeless tobacco: Never Tobacco comments: cigarette; Start date: 1983; Not interested in quitting smoking; Amount: 10-19 cigs/day; quit 06/2015; Tobacco modified 11/15/2015; Tobacco reviewed with patient 11/15/2015 Vaping Use Vaping status: Never Used Substance Use Topics Alcohol use: Yes Comment: occasional Drug use: No Family History Problem Relation Age of Onset other (Other inflammatory connective disorder) Mother Scleroderma other (Respiratory disorder) Mother other (Rheumatologic disorder) Mother other (Systemic lupus) Mother Heart Father Diabetes Father Diabetes Brother Diabetes Brother Cancer No Family History Reviewed past medical history, family history and surgeries. All medications and supplements were reviewed with the patient. Review of Systems Constitutional: Negative for chills, diaphoresis, fever, malaise/fatigue and weight loss. HENT: Negative for ear pain and hearing loss. Eyes: Negative for blurred vision and double vision. Respiratory: Negative for cough and shortness of breath. Cardiovascular: Negative for chest pain, palpitations and leg swelling. Gastrointestinal: Negative for constipation, diarrhea and heartburn. Genitourinary: Negative for dysuria and frequency. Musculoskeletal: Negative for back pain, falls, joint pain and myalgias. Skin: Negative for itching and rash. Neurological: Negative for dizziness, weakness and headaches. Endo/Heme/Allergies: Does not bruise/bleed easily. Psychiatric/Behavioral: Negative for depression and substance abuse. The patient does not have insomnia. Objective BP 118/68 Pulse 97 Temp 36.6 C (97.9 F) Resp 18 Ht 182.9 cm (6') Wt 115.7 kg (255 lb) SpO2 97% BMI 34.58 kg/m Physical Exam Constitutional: Appearance: Normal appearance. He is obese. HENT: Head: Normocephalic and atraumatic. Nose: Nose normal. Mouth/Throat: Mouth: Mucous membranes are moist. Dentition: Normal dentition. Eyes: General: Lids are normal. Extraocular Movements: Extraocular movements intact. Conjunctiva/sclera: Conjunctivae normal. Pupils: Pupils are equal, round, and reactive to light. Neck: Thyroid: No thyroid mass or thyromegaly. Vascular: No carotid bruit. Trachea: Phonation normal. Cardiovascular: Rate and Rhythm: Normal rate and regular rhythm. Heart sounds: Normal heart sounds. No murmur heard. No friction rub. No gallop. Pulmonary: Effort: Pulmonary effort is normal. Breath sounds: Normal breath sounds. No wheezing or rales. Abdominal: General: Bowel sounds are normal. There is no distension. Palpations: Abdomen is soft. There is no mass. Tenderness: There is no abdominal tenderness. Musculoskeletal: General: No swelling or tenderness. Normal range of motion. Cervical back: Normal range of motion and neck supple. No edema. Lymphadenopathy: Cervical: No cervical adenopathy. Skin: General: Skin is warm and dry. Findings: No erythema or rash. Nails: There is no clubbing. Neurological: Mental Status: He is alert and oriented to person, place, and time. Cranial Nerves: No cranial nerve deficit. Motor: Motor function is intact. Coordination: Coordination normal. Gait: Gait is intact. Psychiatric: Attention and Perception: Attention normal. Mood and Affect: Mood and affect normal. Speech: Speech normal. Behavior: Behavior normal. Behavior is cooperative. Thought Content: Thought content normal. Cognition and Memory: Cognition and memory normal. Judgment: Judgment normal. Feet:Shoes and socks removed, normal distal pulses, not sensitive to monofilament in right lateral foot on plantar surface, vibratory perception normal, and s/p right great toe amputation ASSESSMENT/PLAN: 1. Type 2 diabetes mellitus with chronic kidney disease, with long-term current use of insulin, unspecified CKD stage (HCC) - ICD9: 250.40, 585.9, V58.67, ICD10: E11.22, Z79.4 (primary diagnosis) - Controlled - Continue current medications - GLIMEPIRIDE 4 MG TABLET 2. History of amputation of right great toe (HCC) - ICD9: V49.71, ICD10: Z89.411 healed 3. Obesity, Class II, BMI 35-39.9 - ICD9: 278.00, ICD10: E66.812 Lifestyle modification recommended Najma Bloom DO documented in this encounterW[facility] NoteHNO ID: [id number] Author: VARGAS BENTON DO Service: ? Author Type: Physician Type: Progress Notes Filed: 08/16/2024 10:49 Note Text: [facility] OUTPATIENT VISIT DATE August 16, 2024 PRIMARY CARE PHYSICIAN: Najma Bloom [address] [place] [address] HISTORY OF PRESENT ILLNESS: Mr. Sharma is a 59 year old male. The patient returns for follow-up secondary to a history of paroxysmal atrial fibrillation with coronary calcification suggesting least mild CAD, hypertension, hyperlipidemia, diabetes and long-term anticoagulation with Eliquis. He has recently had a toe removed as a result of infection that spread to the bone. This thankfully did not spread further. His hemoglobin A1c is now markedly improved. He denies chest discomfort, dyspnea, orthopnea, paroxysmal nocturnal dyspnea, palpitations, near-syncope, syncope, GI/ bleeding or melena. He states he cannot feel anything in his toes or feet. He and his are doing weekly checks of his feet. PLAN AND RECOMMENDATIONS: The patient remained stable without apparent symptoms that would suggest angina or cardiac compensation on his current optimal medical therapy. Heart rate, blood pressure and recent cholesterol profile are favorable if not excellent on the same. We have therefore made no additions or changes. Dietary and lifestyle modification was reemphasized to facilitate risk factor reduction and prevention of future cardiovascular events. We will look forward to reevaluating him in 6 months time. Vitals: BP 112/62 Pulse 83 Ht 182.9 cm (6') Wt 116.7 kg (257 lb 4.4 oz) SpO2 100% BMI 34.89 kg/m? Physical Exam Vitals reviewed. Constitutional: General: He is not in acute distress. Appearance: Normal appearance. He is well-developed. He is not diaphoretic. HENT: Head: Normocephalic and atraumatic. Right Ear: External ear normal. Left Ear: External ear normal. Nose: Nose normal. Eyes: General: No scleral icterus. Right eye: No discharge. Left eye: No discharge. Pupils: Pupils are equal, round, and reactive to light. Neck: Thyroid: No thyromegaly. Vascular: No carotid bruit or JVD. Cardiovascular: Rate and Rhythm: Normal rate and regular rhythm. Heart sounds: No murmur heard. No friction rub. No gallop. Pulmonary: Effort: Pulmonary effort is normal. No respiratory distress. Breath sounds: Normal breath sounds. No wheezing or rales. Abdominal: General: Bowel sounds are normal. Palpations: Abdomen is soft. Musculoskeletal: General: Normal range of motion. Cervical back: Neck supple. Skin: General: Skin is warm and dry. Capillary Refill: Capillary refill takes less than 2 seconds. Coloration: Skin is not pale. Neurological: Mental Status: He is alert and oriented to person, place, and time. Cranial Nerves: No cranial nerve deficit. Psychiatric: Mood and Affect: Mood normal. Mood is not anxious or depressed. Behavior: Behavior normal. Thought Content: Thought content normal. Judgment: Judgment normal. Review of Systems Constitutional: Positive for fatigue. Negative for activity change, appetite change and unexpected weight change. HENT: Negative for ear pain and trouble swallowing. Eyes: Negative for pain and visual disturbance. Respiratory: Negative for chest tightness and shortness of breath. Cardiovascular: Negative for chest pain, palpitations and leg swelling. Gastrointestinal: Negative for abdominal pain and blood in stool. Endocrine: Negative for cold intolerance and heat intolerance. Genitourinary: Negative for dysuria, hematuria and scrotal swelling. Musculoskeletal: Negative for arthralgias and myalgias. Skin: Negative for pallor and rash. Allergic/Immunologic: Negative for immunocompromised state. Neurological: Negative for dizziness, syncope and light-headedness. Hematological: Negative for adenopathy. Does not bruise/bleed easily. Psychiatric/Behavioral: Negative for sleep disturbance. The patient is not nervous/anxious. PAST MEDICAL HISTORY Diagnosis Date Acute exacerbation of chronic obstructive airways disease (HCC) Rx for augmentin, symptomatic care as needed. Patient denies COPD, asthma, uses an inhaler PRN usually about once a year with hot weather Anemia Depression Diffuse large B cell lymphoma (HCC) 07/14/2019 Encounter for screening for malignant neoplasm of prostate Essential hypertension 05/26/2024 continue Lisinopril Hydronephrosis Hydronephrosis with ureteral stricture Hypomagnesemia 10/30/2019 Nausea and vomiting 01/09/2023 Obesity, Class II, BMI 35-39.9 12/15/2022 DEISI (obstructive sleep apnea) mild and no CPAP Paroxysmal atrial fibrillation (HCC) 01/10/2023 Prostatitis 01/09/2023 Sepsis due to gram-negative UTI (HCC) (HCC) 10/25/2019 Thrombocytopenia (HCC) Type 2 diabetes mellitus (HCC) 8/ (more content not included)...[facility]10-22-2024 History of Present illness Narrative* Vargas Benton, - 08/16/2024 10:26 AM EDT Images from the original note were not included. [facility] SE[facility] OF [facility]OLOG[facility] OUTPATIENT VISIT DATE August 16, 2024 PRIMARY CARE PHYSICIAN: Najma Bloom [address] [place] [id number] HISTORY OF PRESENT ILLNESS: Mr. Sharma is a 59 year old male. The patient returns for follow-up secondary to a history of paroxysmal atrial fibrillation with coronary calcification suggesting least mild CAD, hypertension, hyperlipidemia, diabetes and long-term anticoagulation with Eliquis. He has recently had a toe removed as a result of infection that spread to the bone. This thankfully did not spread further. His hemoglobin A1c is now markedly improved. He denies chest discomfort, dyspnea, orthopnea, paroxysmal nocturnal dyspnea, palpitations, near-syncope, syncope, GI/ bleeding or melena. He states he cannot feel anything in his toes or feet. He and his are doing weekly checks of his feet. PLAN AND RECOMMENDATIONS: The patient remained stable without apparent symptoms that would suggest angina or cardiac compensation on his current optimal medical therapy. Heart rate, blood pressure and recent cholesterol profile are favorable if not excellent on the same. We have therefore made no additions or changes. Dietary and lifestyle modification was reemphasized to facilitate risk factor reduction and prevention offuture cardiovascular events. We will look forward to reevaluating him in 6 months time. Vitals: BP 112/62 Pulse 83 Ht 182.9 cm (6') Wt 116.7 kg (257 lb 4.4 oz) SpO2 100% BMI 34.89 kg/m Physical Exam Vitals reviewed. Constitutional: General: He is not in acute distress. Appearance: Normal appearance. He is well-developed. He is not diaphoretic. HENT: Head: Normocephalic and atraumatic. Right Ear: External ear normal. Left Ear: External ear normal. Nose: Nose normal. Eyes: General: No scleral icterus. Right eye: No discharge. Left eye: No discharge. Pupils: Pupils are equal, round, and reactive to light. Neck: Thyroid: No thyromegaly. Vascular: No carotid bruit or JVD. Cardiovascular: Rate and Rhythm: Normal rate and regular rhythm. Heart sounds: No murmur heard. No friction rub. No gallop. Pulmonary: Effort: Pulmonary effort is normal. No respiratory distress. Breath sounds: Normal breath sounds. No wheezing or rales. Abdominal: General: Bowel sounds are normal. Palpations: Abdomen is soft. Musculoskeletal: General: Normal range of motion. Cervical back: Neck supple. Skin: General: Skin is warm and dry. Capillary Refill: Capillary refill takes less than 2 seconds. Coloration: Skin is not pale. Neurological: Mental Status: He is alert and oriented to person, place, and time. Cranial Nerves: No cranial nerve deficit. Psychiatric: Mood and Affect: Mood normal. Mood is not anxious or depressed. Behavior: Behavior normal. Thought Content: Thought content normal. Judgment: Judgment normal. Review of Systems Constitutional: Positive for fatigue. Negative for activity change, appetite change and unexpected weight change. HENT: Negative for ear pain and trouble swallowing. Eyes: Negative for pain and visual disturbance. Respiratory: Negative for chest tightness and shortness of breath. Cardiovascular: Negative for chest pain, palpitations and leg swelling. Gastrointestinal: Negative for abdominal pain and blood in stool. Endocrine: Negative for cold intolerance and heat intolerance. Genitourinary: Negative for dysuria, hematuria and scrotal swelling. Musculoskeletal: Negative for arthralgias and myalgias. Skin: Negative for pallor and rash. Allergic/Immunologic: Negative for immunocompromised state. Neurological: Negative for dizziness, syncope and light-headedness. Hematological: Negative for adenopathy. Does not bruise/bleed easily. Psychiatric/Behavioral: Negative for sleep disturbance. The patient is not nervous/anxious. PAST MEDICAL HISTORY Diagnosis Date Acute exacerbation of chronic obstructive airways disease (HCC) Rx for augmentin, symptomatic care as needed. Patient denies COPD, asthma, uses an inhaler PRN usually about once a year with hot weather Anemia Depression Diffuse large B cell lymphoma (HCC) 07/14/2019 Encounter for screening for malignant neoplasm of prostate Essential hypertension 05/26/2024 continue Lisinopril Hydronephrosis Hydronephrosis with ureteral stricture Hypomagnesemia 10/30/2019 Nausea and vomiting 01/09/2023 Obesity, Class II, BMI 35-39.9 12/15/2022 DEISI (obstructive sleep apnea) mild and no CPAP Paroxysmal atrial fibrillation (HCC) 01/10/2023 Prostatitis 01/09/2023 Sepsis due to gram-negative UTI (HCC) (HCC) 10/25/2019 Thrombocytopenia (HCC) Type 2 diabetes mellitus (HCC) 05/26/2024 continue current meds Ureteral obstruction, left Urinary tract infection Vitamin D deficiency 01/09/2023 PAST SURGICAL HISTORY Procedure Laterality Date AMPUTATION TOE,MT-P JT Right 05/2024 right great [place] - [place] [facility] [place]THROTOMY W/MENISCUS REPAIR KNEE Left 07/26/2024 [place] [facility] [place] MARRO ASPIRATE & BIOPSY 07/20/2019 CYSTOSCOPY 2019 KNIFE,CARPAL TUNNEL,[id number] Bilateral Carpal Tunnel Surgery 06/10/2013 NEPHROSTOMY TUBE 06/2019 PAST SURGICAL HISTORY OF 2013 temporal arterial biopsy PAST SURGICAL HISTORY OF 2013 sinus scraping, deviated septum repair PAST SURGICAL HISTORY OF Right PURPLE POWER PORT RIGHT CHEST PAST SURGICAL HISTORY OF Right TESTICLE REMOVED PAST SURGICAL HISTORY OF 02/19/2021 ureter stent Social History Tobacco Use Smoking status: Former Current packs/day: 0.00 Average packs/day: 2.5 packs/day for 31.0 years (77.5 ttl pk-yrs) Types: Cigarettes Start date: 10/26/1983 Quit date: 10/26/2014 Years since quittin.8 Smokeless tobacco: Never Tobacco comments: cigarette; Start date: 1983; Not interested in quitting smoking; Amount: 10-19 cigs/day; quit 06/2015; Tobacco modified 11/15/2015; Tobacco reviewed with patient 11/15/2015 Vaping Use Vaping status: Never Used Substance Use Topics Alcohol use: Yes Comment: occasional Drug use: No FAMILY HISTORY Problem Relation Age of Onset other (Other inflammatory connective disorder) Mother Scleroderma other (Respiratory disorder) Mother other (Rheumatologic disorder) Mother other (Systemic lupus) Mother Heart Father Diabetes Father Diabetes Brother Diabetes Brother Cancer No Family History ALLERGIES Allergen Reactions Aspartame Intolerance Severe headache Bactrim [Sulfametho* Hives, Intolerance Reaction: gas Sensitivity: Intolerance. Sensitivity: Intolerance Biaxin [Clarithromy* Unknown Indigestion/gas Influenza Vaccine T* Unknown Flu Monosodium Glutamate Diarrhea Monosodium Glutamat* Intolerance Severe headache Pantoprazole Diarrhea Sulfa (Sulfonamide * Rash, Hives Clindamycin Hcl Diarrhea, GI Upset, Vomiting Reaction: Nausea/vomiting/diarrhea Other Reaction: stomach cramps Sensitivity: Intolerance CURRENT MEDICATIONS: amoxicillin-clavulanate potassium (AUGMENTIN) 875-125 mg per tablet Take 1 tablet by mouth every 12hours for 10 days. OZEMPIC 1 mg/dose (4 mg/3 mL) pen INJECT 1 MG UNDER THE SKIN WEEKLY metFORMIN (GLUCOPHAGE) 500 mg tablet Take 1 tablet by mouth two times a day with meals. lisinopril (ZESTRIL) 5 mg tablet Take 1 tablet by mouth once daily. sodium bicarbonate 650 mg tablet Take 2 tablets by mouth two times a day. blood sugar diagnostic (ONETOUCH VERIO TEST STRIPS) test strip 1 Strip two times a day. Use with blood glucose test two times a day. Insulin Dep? No dapagliflozin propanediol (FARXIGA) 10 mg tablet Take 1 tablet by mouth daily with breakfast. gabapentin (NEURONTIN) 600 mg tablet Take 1 tablet by mouth three times a day for 90 days. SITagliptin phosphate (JANUVIA) 100 mg tablet Take 1 tablet by mouth once daily. allopurinol (ZYLOPRIM) 100 mg tablet take 1 tablet twice a day insulin glargine (LANTUS SOLOSTAR U-100 INSULIN) 100 unit/mL (3 mL) Inject 30 Units subcutaneously every morning. glimepiride (AMARYL) 4 mg tablet Take 4 mg by mouth two times a day with meals. furosemide (LASIX) 40 mg tablet Take 1 tablet by mouth once daily. lancets (ONETOUCH DELICA PLUS LANCET) 33 gauge Use with blood glucose test three times a day. Insulin Dep? Yes blood sugar diagnostic (ONETOUCH VERIO TEST STRIPS) test strip Use with blood glucose test three times a day. Insulin Dep? Yes DULoxetine (CYMBALTA) 60 mg capsule Take 1 capsule by mouth two times a day. rosuvastatin (CRESTOR) 40 mg tablet take 1 tablet daily lidocaine-prilocaine (EMLA) 2.5-2.5 % cream APPLY TO AFFECTED AREA NEEDED PRIOR TO CHEMOTHERAPY ergocalciferol 50,000 unit capsule (VITAMIN D2, DRISDOL) TAKE 1 CAPSULE ONCE A WEEK Blood-Glucose Meter 1 Each three times daily. Please match the test strips and lancets sildenafil (REVATIO) 20 mg tablet Take 3-5 tablets by mouth once daily as needed. albuterol HFA (PROVENTIL HFA, VENTOLIN HFA) 90 mcg/actuation inhaler USE 2 INHALATIONS INSTRUCTED EVERY 4 HOURS NEEDED FOR WHEEZING/SHORTNESS OF BREATH apixaban (ELIQUIS) 5 mg tab(s) Take 1 tablet by mouth two times a day. dilTIAZem CD (CARDIZEM CD, CARTIA XT) 120 mg 24 hr capsule Take 1 capsule by mouth once daily. metoprolol tartrate, short acting, (LOPRESSOR) 25 mg tablet Take 1 tablet by mouth every 12 hours. Vargas Benton DO, FAC, [facility] Medical Claims Processor, [facility] Medical Claims Processor, [facility] Medical Claims Processor, [facility] Medical Claims Processor, [facility] Medical Claims Processor, [facility] Clinical Palm And Back Forger Profressor of Medicine, [facility] Medicine - [facility] Staff Pilot Can Router, Osiris Arana Department of Cardiovascular Medicine/Heart and Vascular [place], [facility] Please note: This note has been produced using speech recognition software and may contain errors related to that system including bailey, punctuation, spelling, words, gender and phrases that may be inappropriate. documented in this encounterWadsworth-Rittman [facility]10-18-2024 Telephone encounter Note * Telephone Encounter - Cordelia Floyd MA - 08/12/2024 1:02 PM EDT Pt. Lm on stating he went to ortho doctor and was cleared to work on Thursday. Patient states he also needs a note from Dr. Bloom that he is cleared to work . Pt. States fax to brayan. Please advise. Cordelia Floyd MA Pt. States fax is in chart. [facility]10-18-[facility] Miscellaneous Notes* Telephone Encounter - Cordelia Floyd MA - 08/12/2024 1:02 PM EDT Pt. Lm on stating he went to ortho doctor and was cleared to work on Thursday. Patient states he also needs a note from Dr. Bloom that he is cleared to work . Pt. States fax to brayan. Please advise. Cordelia Floyd MA Pt. States fax is in chart. documented in this encounterWadsworth-Rittman Hospital10-18-2024 NoteHNO ID: [id number] Author: AIDE QUINTANILLA PA-C Service: ? Author Type: Physician [employer] And Back Forger Type: Progress Notes Filed: 08/12/2024 11:55 Note Text: POST OP Aide Quintanilla PA-C Department of Orthopaedics Orthopaedics [address] [place] [id number] Dept: [phone] Mr. Sharma presents today for his 10-14 day visit S/P left knee arthroscopy, synovectomy and partial menisectomy. DOS: 07/26/2024. History: his pain intensity is 0/10. His sharp pre-op pain has resolved. The patient denies swelling, warmth, discharge, drainage, fevers, chills, sweats. He reports no change in past medical AND surgical history, medications, allergies, social history, family history and review of systems since last visit. Radiographs: not applicable Physical Examination: Appropriate postop appearance No evidence of erythema, warmth, discharge or drainage Incision clean/dry/intact ROM: 0-110 Positive EHL, FHL, AT, GS, Quads, and HS Positive distal pulses Negative Moody's, calf tenderness or palpable cords Plan: Progressing as expected in the immediate post operative period. Letter to RTW on 08/15 given Post op care discussed, all questions answered. Follow up in 6 weeks for repeat clinical evaluation with [facility]10-18-2024 History of Present illness Narrative* Aide Quintanilla PA-C - 08/12/2024 11:38 AM EDT POST OP Aide Quintanilla PA-C Department of Orthopaedics Orthopaedics [address] [address] Dept: [phone] Mr. Sharma presents today for his 10-14 day visit S/P left knee arthroscopy, synovectomy and partial menisectomy. DOS: 07/26/2024. History: his pain intensity is 0/10. His sharp pre-op pain has resolved. The patient denies swelling, warmth, discharge, drainage, fevers, chills, sweats. He reports no change in past medical & surgical history, medications, allergies, social history, family history and review of systems since last visit. Radiographs: not applicable Physical Examination: Appropriate postop appearance No evidence of erythema, warmth, discharge or drainage Incision clean/dry/intact ROM: 0-110 Positive EHL, FHL, AT, GS, Quads, and HS Positive distal pulses Negative Moody's, calf tenderness or palpable cords Plan: Progressing as expected in the immediate post operative period. Letter to RTW on 08/15 given Post op care discussed, all questions answered. Follow up in 6 weeks for repeat clinical evaluation with Dr. Ryne Quintanilla PA-C documented [facility] Telephone encounter Note * Telephone Encounter - Najma Bloom DO - 08/08/2024 11:40 AM EDT Pt is here with his . He has had bronchitis that he caught from his grandson. He has not felt well for about 2 weeks. He is hoping to get back to work next week after being off for surgery, but does not want this bronchitis to keep him off work longer. Najma Bloom DO [facility]10-14-2024 Miscellaneous Notes* Telephone Encounter - Najma Bloom DO - 08/08/2024 11:40 AM EDT Pt is here with his . He has had bronchitis that he caught from his grandson. He has not felt well for about 2 weeks. He is hoping to get back to work next week after being off for surgery, but does not want this bronchitis to keep him off work longer. Najma Bloom DO documented in this encounterW[facility]10-[facility] Telephone encounter Note * Telephone Encounter - Aide Quintanilla PA-C - 07/28/2024 12:49 PM EDT Pathology from surgery shows possible rheumatology problem. Dr. Michele recommends he schedule follow up with Rheum. Consult placed. Please assist with scheduling. Bibi [facility]10-03-2024 Miscellaneous Notes* Telephone Encounter - Aide Quintanilla PA-C - 07/28/2024 12:49 PM EDT Pathology from surgery shows possible rheumatology problem. Dr. Michele recommends he schedule follow up with Rheum. Consult placed. Please assist with scheduling. Bibi documented in this encounterWad[facility]10-01-2024 NoteHNO ID: [id number] Author: YEN VARELA APRN.CHIEF SECURITY OFFICER Service: Anesthesiology Author Type: Anesthesiologist Type: Anesthesia Procedure Notes Filed: 07/26/2024 10:43 Note Text: ANESTHESIOLOGY PROCEDURE NOTE Airway General Information Procedure Start Time/Medication Administration: 07/26/2024 10:21 AM Procedure End Time: 07/26/2024 10:21 AM Patient location during procedure: OR Timeout Performed Pre-procedure: timeout performed Consent Obtained: Yes Patient identity confirmed: arm band and patient Staffing CHIEF SECURITY OFFICER: Yen Varela APRN.CHIEF SECURITY OFFICER Performed by: CHIEF SECURITY OFFICER Indications and Patient Condition Indications for airway management: anesthesia Preoxygenated: yes anesthesia circuit Patient position: sniffing Method: asleep Cricoid Pressure: Yes Difficult Mask: No (burgess present so used oral airway) Airway Accessory: oral airway Final Airway Details Final airway type: endotracheal airway Final Endotracheal Airway: ETT Cuffed: yes Devices used: Shell Endotracheal tube insertion site: oral Blade size: #4 Measured from: lips Placement verified by: capnometry Number of attempts at approach: 2 (first attempt DL with no view then switched to Shell with full view of cords) Airway not difficult SIGNATURE: Yen Varela APRN.CHIEF SECURITY OFFICER PATIENT NAME: Yamilka Sharma DATE: July 26, 2024 TIME: 10:41 AM CSN: [id number] Telephone encounter Note * Telephone Encounter - Criss Devi MA - 07/22/2024 4:48 PM EDT Willis at pre admission testing informed. Criss Devi MA [facility]09-27-2024 Miscellaneous Notes* Telephone Encounter - Criss Devi MA - 07/22/2024 4:48 PM EDT Willis at pre admission testing informed. Criss Devi MA * Telephone Encounter - Najma Bloom DO - 07/21/2024 2:42 PM EDT Note signed Najma Bloom DO * Telephone Encounter - Doreen Dixon - 07/21/2024 1:41 PM EDT Patient stated he wanted to hold off scheduling pacc appointment until he sees if pcp is going to complete office note. Will continue to watch. * Telephone Encounter - Criss Devi MA - 07/20/2024 10:23 AM EDT Alvina with Pre-Anesthesia Department left message requesting Dr. Bloom sign 07/18/24 office visit so they can use it for the H&P for surgery on 07/26/24. Please advise. Criss Devi MA documented in this encounterWadsworth[facility]09-27-2024 History and physical note * Kate Kirby APRN.CNP - 07/22/2024 9:53 AM EDT Images from the original note were not included. [facility] HISTORY AND PHYSICAL EXAMINATION SERVICE DATE: 07/22/2024 SERVICE TIME: 11:51 AM PRIMARY CARE PHYSICIAN: Najma Bloom, Assessment Patient has the following medical conditions which may affect justine-operative course: Paroxysmal atrial fibrillation (HCC) Assessment: daily Eliquis, controlled on rx 02/15/2024 Osiris Paris CNP, Cardiology Conclusion: (E78.2) Hyperlipidemia, mixed (primary encounter diagnosis) Comment: last labs 07/2023. LDL not calculated due to high triglycerides Plan: LIPID PANEL BASIC Will recheck labs. Discussed dietary recommendations. (I10) Hypertension, essential Comment: low blood pressure. He is not sympotmatic. States he is always low. Plan: continue same meds. (I48.0) Paroxysmal atrial fibrillation (HCC) Comment: appears to be in sinus rhythm now Plan: continue same meds (I25.10) Coronary artery disease involving [place] coronary artery of [place] heart without angina pectoris Comment: no ischemic symptoms. Plan: continue same meds. PLAN AND RECOMMENDATIONS: Magnesium glycinate 400-800mg at bedtime. Follow up Dr Benton in 6 months Have fasting lipid level before your next visit. CONTACT INFORMATION: Osiris Paris APRN.CNP Coronary artery disease involving [place] coronary artery of [place] heart without angina pectoris Assessment: non-obstructing, c/w statin, BB. Denies CP, palpitations, sob new or worsening cardiac symptoms. 02/26/2023 Pharm Stress CONCLUSIONS: 1. SPECT Perfusion Study: Normal. 2. There is no scintigraphic evidence for inducible ischemia. 3. No evidence of scarred myocardium. 4. Left ventricle is mildly dilated. The left ventricle systolic function is normal. 5. Right ventricle is normal in size. The right ventricle systolic function is normal. 6. This is a low risk scan. Gated Stress IR:3D LVEF % 64 02/15/2024 Osiris Paris APRN.MILL FEEDER (E78.2) Hyperlipidemia, mixed (primary encounter diagnosis) Comment: last labs 07/2023. LDL not calculated due to high triglycerides Plan: LIPID PANEL BASIC Will recheck labs. Discussed dietary recommendations. (I10) Hypertension, essential Comment: low blood pressure. He is not sympotmatic. States he is always low. Plan: continue same meds. (I48.0) Paroxysmal atrial fibrillation (HCC) Comment: appears to be in sinus rhythm now Plan: continue same meds (I25.10) Coronary artery disease involving [place] coronary artery of [place] heart without angina pectoris Comment: no ischemic symptoms. Plan: continue same meds. PLAN AND RECOMMENDATIONS: Magnesium glycinate 400-800mg at bedtime. Follow up Dr Benton in 6 months Have fasting lipid level before your next visit. Essential hypertension Assessment: controlled on rx Last 14 BP Last 14 Encounter BP Readings: Date: BP: 07/22/2024 112/80 07/18/2024 116/66 06/23/2024 122/70 06/06/2024 107/72 05/30/2024 102/61 05/25/2024 108/71 05/11/2024 125/69 05/11/2024 180/95 04/19/2024 109/60 03/04/2024 95/64 02/18/2024 80/50 02/15/2024 94/56 12/23/2023 114/74 12/23/2023 82/62 Thrombocytopenia (HCC) Assessment: hx, last platelets WNL Platelet Count Date Value Ref Range Status 06/10/2024 175 150 - 400 k/uL Final Anemia Assessment: hx, s/p toe amputation 06/06/2024 Hemoglobin (g/dL) Date Value 06/10/2024 9.7 10/31/2021 13.1 Hematocrit (%) Date Value 06/10/2024 31.0 10/31/2021 38.8 WBC (k/uL) Date Value 06/10/2024 7.23 10/31/2021 8.38 Stage 3b chronic kidney disease (HCC) Assessment: on rx, following neprhrology Creatinine Date Value Ref Range Status 06/10/2024 1.65 (H) 0.73 - 1.22 mg/dL Final 06/06/2024 1.97 (H) 0.73 - 1.22 mg/dL Final 06/05/2024 1.93 (H) 0.73 - 1.22 mg/dL Final 06/04/2024 1.73 (H) 0.73 - 1.22 mg/dL Final 04/19/2024 Dr. Polanco, Nephrology ASSESSMENT AND PLAN 1) CKD Stage 3 BL 2.3-2.5 , GFR 30-35 -Etiology (likely) : DKD, A1C 8.5 -s/p TURP and right ureteroscopic and right ureter stent placement. -Previous baseline creatinine was around 2.3 - Does not need preparation for dialysis at this time. - Cr is 2.35 GFR 31 ACR 126 mg/g -UA > 20 WBC , LE + , asymptomatic UTI - K 4.5 -Will continue routine monitoring of chemistries. -Avoid all PICC lines, i.v.s and blood draws in arms above wrists as possible to preserve veins forpossible AV fistula or AVG. -Lisinorpil 10 mg po daily and off of metformin -Farxiga 10 mg po daily , on Ozemoic 1.0 q weekly -Lasix 40 mg daily, KCL 10 meq po daily as needed - -Sodium bicarbonate 650 mg 2 tablets twice a day _ 2) Hypertension: -Blood pressure is adequately controlled. -No changes to medications at this time. -The patient was advised to follow a low salt/DASH diet. 3) Anemia: -Hemoglobin is adequate. -Continue periodic monitoring of CBC and iron studies. 4) Secondary Hyperparathyroidism/CKD-MBD: pTH 158 Vit d 41 -Intact PTH, vitamin d, calcium, and phosphorus levels are acceptable. -No changes -in management. -Will continue to monitor these indices. 5) Acidosis: -Serum bicarbonate level is acceptable. - No changes in management. 6) Proteinuria: -Will continue monitor microalbumin/creatinine ratio. 7) Dyslipidemia: -The patient has moderate CKD and would benefit from aggressive lipid control with an LDL goal of <100 and TG less than 150mg/dl. 8) DM On amaryl and januvia Farxiga Amaryl decreased to 1 tabs po daily once we start on Farxiga 9) Hyperuricemia Uric acid6. 6.3 Allopurinol 100 mg po BID Add colchicine as needed Return in 4 months (on 08/19/2024). Epi Polanco MD Leg swelling Assessment: controlled on rx Depression Assessment: stable on rx per pt BPH associated with nocturia Assessment: s/p TURP Diffuse large B cell lymphoma (HCC) Assessment: in remission, s/p chemo and XRT 08/27/2023 Martell Waterman MD Assesment 1. 58-year-old male with a diagnosis of diffuse large B-cell lymphoma.. Presented with a 5 cm lesion along the left pelvic sidewall. Diagnosed in June 2019. Treated with 6 cycles of Rituxan CHOPchemotherapy. Received radiation to the area of persistent PET avid disease on 01/12/2022. Patient has done relatively well since without any evidence of relapse. Continue to monitor him. High risk of relapse. Repeat CAT scans again in 8 6 months. Current CAT scans show no progression. 2. Keflex prescribed for the mild cellulitis over the left harris from trauma. Martell Waterman MD Hyperlipidemia, mixed Assessment: c/w statin Hyperparathyroidism (HCC) Assessment: secondary to CKD, following endo Physical debility Assessment: hx Class 1 obesity due to excess calories with serious comorbidity and body mass index (BMI) of 33.0 to 33.9 in adult Assessment: Body mass index is 33.91 kg/m . Barney Activity Status Index: METS: Climb a flight of stairs or walk up a hill (5.50 METs) DASI Score: 5.5 Patient denies any chest pain or undue shortness of breath with the above physical activity. Clinical Frailty Scale: 3. Well, with treated comorbid disease STOP-Bang Score: Has or is being treated for high blood pressure Patient over 50 years old Has a large neck Male patient Denies snoring loudly Denies feeling tired, fatigued, or sleepy during the daytime Has not been observed to stop breathing or choking/gasping during sleep BMI less than or equal to 35 kg/m^2 STOP-Bang Score: 4 [id number] Score: Age: <65 Sex: male CHF history: No Hypertension history: Yes Stroke/TIA/thromboembolism history: No Vascular disease history: No Diabetes history: Yes [id number] Score: 2 ARISCAT Score: Age: 51-80 Preoperative SpO2: >=96% Respiratory infection in the last month: No Preoperative anemia: No Surgical incision: peripheral Duration of surgery: <2 hrs Emergency procedure: No ARISCAT Score: 3 ANESTHESIA FINDINGS: Intubation History: No history of difficult intubation Significant Anesthesia Considerations: none Airway History: No history of difficult airway I - PHYSICAL EVALUATION AIRWAY Patient intubated: No. Tracheostomy tube not present Mallampati: I. TM distance: >3 FB. Neck ROM: full ROM without neurological symptoms. Mouth opening: adequate. Short neck: no. Thick neck: yes Burgess present: no Lip Bite Test: I Microretrognathia/Micronagthia/Recessed Chin: No DENTAL Dental findings: teeth intact. II - ANESTHESIA PLAN Anesthetic Plan: other Beta Chaka Monitoring Plan Post Procedure Analgesic Plan Prepared for Surgery: optimally prepared for surgery. CONSULTS: Patient does not require consults for optimization at this time Planned Anesthetic: other anesthesia choice The Following Tests/Procedures Have Been Initiated: No orders of the defined types were placed in this encounter. REASON FOR VISIT: Yamilka Sharma is a 58 year old male who is scheduled for Procedure(s): ARTHROSCOPY KNEE MENISCECTOMY MEDIAL OR LATERAL (Left) at the request of Dr. Jennifer Michele for consultation. My final recommendation will be communicated back to the requesting physician by way of shared medical record or letter. Subjective The patient has the following: COVID-19 Immunization Status Discontinued - Covid-19 Vaccine Discontinued 05/26/2023 Frequency changed to Never by Criss Devi MA (Patient Preference) 05/02/2022 Postponed until 05/02/2023 by Cordelia Floyd MA (Declined at this time) 04/18/2021 Postponed until 04/18/2022 by Criss Devi MA (Declined at this time) Only the first 3 history entries have been loaded, but more history exists. CHIEF COMPLAINT: Pre-op exam HPI: Yamilka Sharma is a 58 year old seen for PAC due to scheduled above surgery because of leftknee pain. 07/13/2024, Dr. Jennifer Michele Chief Complaint Yamilka Sharma is a 58 year old male who presents today for follow up office visit. Patient presents with: Left Knee - Established Patient, Knee Pain History of Present Illness PAIN EVALUATION 07/13/2024 1355 Pain Level: 3 Pain Location: Knee-Left Description: Sore;Aching;Throbbing Duration Units: Months Frequency: Intermittent HPI: Yamilka Sharma is a 58 year old male for a follow up visit left knee pain. Patient states he has noticed some improvement in swelling but continues to have a lot of medial knee pain. He is hesitant to have an aspiration and is persistent on needing surgery. He states he has been cleared from podiatry to have surgery. Pain history is noted as above. Patient states that he is planning on getting HBA1C next week. Is there any overall improvement in your condition? No Any new injury, since being seen last: No REVIEW OF SYSTEMS: General: No weight loss, malaise or fevers. Neurological: No history of TIA's, stroke, BOTTOM LIQUOR ATTENDANT tumor, impaired sensorium, hemiplegia, paraplegia orquadraplegia. No neurological symptoms or problems. Respiratory: +former smoker Positive for: obstructive sleep apnea and CPAP/BiPAP noncompliant. Negative for: pneumonia within 6 weeks, tobacco use and URI < 2 weeks. Cardiovascular: Positive for: anticoagulation therapy, atrial fibrillation (paryoxymal, hx post- op), CAD, hyperlipidemia and hypertension Patient's last office visit The following tests and/or procedures were not performed: cardiac stents. Negative for: abdominal aortic aneurysm, AICD/PPM, angina, arrhythmia, chest pain, CHF, congenital heart defect, DVT/PE, recent PA, murmur/valvular heart disease, PTCA, PVD, open heart surgery and valve surgery. GI: No history of GI symptoms or problems. No history of esophageal varices, recent ascites, or ETOH greater than 2 drinks per day. : Positive for: BPH (s/p TURP) and renal failure. Patient's renal failure is chronic. Negative for: nephrolithiasis and urinary tract infection. Endocrine: Positive for: diabetes mellitus and hyperparathyroidism (on rx). Patient's diabetes mellitus is controlled by insulin, oral agents and weekly injectable. Negative for: hypothyroidism. Hematology: Positive for: chronic anti-coagulation/platelet meds. Patient is on anti- coagulation/platelet medication(s): DOAC. Negative for: anemia, bruises/bleeds easily and transfusion of at least 4 units within 72 hours prior to surgery. Oncology: +lymphoma s/p chemo and XRT Psych: No history of psychiatric symptoms or problems. Musculoskeletal: See HPI. Positive for: swelling (on rx). Skin: Negative for lesions, rash and itching. PAST MEDICAL HISTORY Diagnosis Date Acute exacerbation of chronic obstructive airways disease (HCC) Rx for augmentin, symptomatic care as needed. Patient denies COPD, asthma, uses an inhaler PRN usually about once a year with hot weather Anemia Depression Diffuse large B cell lymphoma (HCC) 07/14/2019 Encounter for screening for malignant neoplasm of prostate Essential hypertension 05/26/2024 continue Lisinopril Hydronephrosis Hydronephrosis with ureteral stricture Hypomagnesemia 10/30/2019 Nausea and vomiting 01/09/2023 Obesity, Class II, BMI 35-39.9 12/15/2022 DEISI (obstructive sleep apnea) mild and no CPAP Paroxysmal atrial fibrillation (HCC) 01/10/2023 Prostatitis 01/09/2023 Sepsis due to gram-negative UTI (HCC) (HCC) 10/25/2019 Thrombocytopenia (HCC) Type 2 diabetes mellitus (HCC) 05/26/2024 continue current meds Ureteral obstruction, left Urinary tract infection Vitamin D deficiency 01/09/2023 PAST SURGICAL HISTORY Procedure Laterality Date AMPUTATION TOE,MT-P JT Right 05/2024 right great toe APPENDECTOMY 1982 BONE MARRO ASPIRATE & BIOPSY 07/20/2019 CYSTOSCOPY 2019 KNIFE,CARPAL TUNNEL,[id number] Bilateral Carpal Tunnel Surgery 06/10/2013 NEPHROSTOMY TUBE 06/2019 PAST SURGICAL HISTORY OF 2013 temporal arterial biopsy PAST SURGICAL HISTORY OF 2013 sinus scraping, deviated septum repair PAST SURGICAL HISTORY OF Right PURPLE POWER PORT RIGHT CHEST PAST SURGICAL HISTORY OF Right TESTICLE REMOVED PAST SURGICAL HISTORY OF 02/19/2021 ureter stent FAMILY HISTORY Problem Relation Age of Onset other (Other inflammatory connective disorder) Mother Scleroderma other (Respiratory disorder) Mother other (Rheumatologic disorder) Mother other (Systemic lupus) Mother Heart Father Diabetes Father Diabetes Brother Diabetes Brother Cancer No Family History Social History Tobacco Use Smoking status: Former Current packs/day: 0.00 Average packs/day: 2.5 packs/day for 31.0 years (77.5 ttl pk-yrs) Types: Cigarettes Start date: 10/26/1983 Quit date: 10/26/2014 Years since quittin.7 Smokeless tobacco: Never Tobacco comments: cigarette; Start date: 1983; Not interested in quitting smoking; Amount: 10-19 cigs/day; quit 06/2015; Tobacco modified 11/15/2015; Tobacco reviewed with patient 11/15/2015 Vaping Use Vaping status: Never Used Substance Use Topics Alcohol use: Yes Comment: occasional Drug use: No Prior to Admission medications as of 07/22/24 1240 Medication Sig Last Dose Taking OZEMPIC 1 mg/dose (4 mg/3 mL) pen INJECT 1 MG UNDER THE SKIN WEEKLY Taking Yes metFORMIN (GLUCOPHAGE) 500 mg tablet Take 1 tablet by mouth two times a day with meals. Taking Yes lisinopril (ZESTRIL) 5 mg tablet Take 1 tablet by mouth once daily. Taking Yes sodium bicarbonate 650 mg tablet Take 2 tablets by mouth two times a day. Taking Yes blood sugar diagnostic ([employer]UCH VERIO TEST STRIPS) test strip 1 Strip two times a day. Use with blood glucose test two times a day. Insulin Dep? No Taking Yes dapagliflozin propanediol (FARXIGA) 10 mg tablet Take 1 tablet by mouth daily with breakfast. Taking Yes gabapentin (NEURONTIN) 600 mg tablet Take 1 tablet by mouth three times a day for 90 days. Taking Yes dilTIAZem CD (CARDIZEM CD, CARTIA XT) 120 mg 24 hr capsule Take 1 capsule by mouth once daily. Taking Yes SITagliptin phosphate (JANUVIA) 100 mg tablet Take 1 tablet by mouth once daily. Taking Yes allopurinol (ZYLOPRIM) 100 mg tablet take 1 tablet twice a day Taking Yes insulin glargine (LANTUS SOLOSTAR U-100 INSULIN) 100 unit/mL (3 mL) Inject 30 Units subcutaneously every morning. Taking Yes glimepiride (AMARYL) 4 mg tablet Take 4 mg by mouth two times a day with meals. Taking Yes furosemide (LASIX) 40 mg tablet Take 1 tablet by mouth once daily. Taking Yes acetaminophen (TYLENOL) 325 mg tablet Take 2 tablets by mouth every 6 hours as needed for pain. Taking Yes lancets ([employer]UCH DELICA PLUS LANCET) 33 gauge Use with blood glucose test three times a day. Insulin Dep? Yes Taking Yes blood sugar diagnostic (ONETOUCH VERIO TEST STRIPS) test strip Use with blood glucose test three times a day. Insulin Dep? Yes Taking Yes DULoxetine (CYMBALTA) 60 mg capsule Take 1 capsule by mouth two times a day. Taking Yes rosuvastatin (CRESTOR) 40 mg tablet take 1 tablet daily Taking Yes lidocaine-prilocaine (EMLA) 2.5-2.5 % cream APPLY TO AFFECTED AREA NEEDED PRIOR TO CHEMOTHERAPY Taking Yes metoprolol tartrate, short acting, (LOPRESSOR) 25 mg tablet Take 1 tablet by mouth every 12 hours. Taking Yes ergocalciferol 50,000 unit capsule (VITAMIN D2, DRISDOL) TAKE 1 CAPSULE ONCE A WEEK Taking Yes Blood-Glucose Meter 1 Each three times daily. Please match the test strips and lancets Taking Yes sildenafil (REVATIO) 20 mg tablet Take 3-5 tablets by mouth once daily as needed. Taking Yes albuterol HFA (PROVENTIL HFA, VENTOLIN HFA) 90 mcg/actuation inhaler USE 2 INHALATIONS INSTRUCTED EVERY 4 HOURS NEEDED FOR WHEEZING/SHORTNESS OF BREATH Taking Yes apixaban (ELIQUIS) 5 mg tab(s) Take 1 tablet by mouth two times a day. Patient not taking: Reported on 07/22/2024 Not Taking No medication comments found. ALLERGIES Allergen Reactions Aspartame Intolerance Severe headache Bactrim [Sulfametho* Hives, Intolerance Reaction: gas Sensitivity: Intolerance. Sensitivity: Intolerance Biaxin [Clarithromy* Unknown Indigestion/gas Influenza Vaccine T* Unknown Flu Monosodium Glutamate Diarrhea Monosodium Glutamat* Intolerance Severe headache Pantoprazole Diarrhea Sulfa (Sulfonamide * Rash, Hives Clindamycin Hcl Diarrhea, GI Upset, Vomiting Reaction: Nausea/vomiting/diarrhea Other Reaction: stomach cramps Sensitivity: Intolerance Objective PHYSICAL EXAM: General: alert and oriented (x3), healthy appearance and obese. Pertinent negatives noted - not distressed. Skin: normal color, no rash or lesions. HEENT: EOM intact and pupils equal round. Pertinent negatives noted - no carotid bruit. Cardiovascular: regular rate and rhythm, normal S1 and S2, no rub, murmurs, or gallop. Respiratory: normal breath sounds, no wheezes or crackles. No chest wall deformity or tenderness. Abdomen: soft. Pertinent negatives noted - not tender. Extremities: no deformity, no edema or tenderness, no joint swelling or clubbing. Neurological: normal cognition and motor skills. Gait normal. No weakness or sensory deficit. PAIN ASSESSMENT: Pain Pain Level: 4 (between 4-8) Pain Location: Knee-Left Description: Shooting Duration Amount of Time: 2 Duration Units: Months Frequency: Continuous Intervention/Comfort measure: Medication VITALS: BP 112/80 Pulse 80 Temp (Src) 96.4 (Temporal) Resp 16 Ht 6' 0 (1.83m) Wt 250 lb (113.4kg) SpO2 99% BMI 33.90 kg/(m^2). Diagnostic tests reviewed for today's visit: Lab Value Units Date High Low HB 9.7 g/dL 06/10/2024 17.0 13.0 HCT 31.0 % 06/10/2024 51.0 39.0 WBC 7.23 k/uL 06/10/2024 11.00 3.70 PLT 175 k/uL 06/10/2024 400 150 NA 137 mmol/L 06/10/2024 144 136 K 4.2 mmol/L 06/10/2024 5.1 3.7 GLUC 102 mg/dL 06/10/2024 99 74 BUN 37 mg/dL 06/10/2024 24 9 CREAT 1.65 mg/dL 06/10/2024 1.22 0.73 PTSEC No results within date range. INR No results within date range. APTT No results within date range. ALT 13 U/L 05/16/2024 54 10 AST 12 U/L 05/16/2024 40 14 TBILI 0.2 mg/dL 05/16/2024 1.3 0.2 TSH No results within date range. Lab Value Units Date High Low HCGQT No results within date range. UHCG No results within date range. HCG, BODY* No results within date range. Lab Value Units Date High Low ABORHD No results within date range. ABSCREEN No results within date range. Hemoglobin A1C (%) Date Value 05/12/2024 9.5 12/17/2022 8.4 10/26/2019 10.2 07/02/2019 9.7 04/19/2018 10.7 Hemoglobin A1C (POCT) (%) Date Value 07/18/2024 6.9 02/18/2024 11.5 10/09/2023 10.4 05/26/2023 8.5 11/21/2022 8.0 Recent Results (from the past 8760 hour(s)) ECG COMPLETE Collection Time: 06/10/24 1:22 PM Result Value Ventricular Rate 84 Atrial Rate 84 P-R Interval 212 QRS Duration 92 QT Interval 368 QTC Calculation (Bazett) 434 Calculated P Noble 71 Calculated R Noble 10 Calculated T Noble 61 Impression SINUS RHYTHM WITH 1ST DEGREE A-V BLOCK OTHERWISE NORMAL ECG NO PREVIOUS ECGS AVAILABLE Confirmed by MD MCINTOSH VINAYAK ([id number]) on 06/11/2024 10:54:11 PM Recent Results (from the past 45503 hour(s)) ECHO Collection Time: 01/14/23 10:09 AM Impression CONCLUSIONS: - Technically difficult exam due to body habitus and pt unable to tolerate probe pressure. - Exam indication: Sustained atrial fibrillation - The left ventricle is dilated. There is no left ventricular hypertrophy. Left ventricular systolic function is normal. EF = 65 5% (visual est.) Normal left ventricular diastolic function. - The right ventricle is normal in size. Right ventricular systolic function is normal. - There are no significant valvular abnormalities. - The patient has not had a prior CC echocardiographic exam for comparison. * * * Final * * * Instructions Given to Patient: Instructions located in the after visit summary. Patient given verbal and written preop instructions and voices comprehension and compliance. SIGNATURE: Kate Kirby APRN.CNP PATIENT NAME: Yamilka Sharma DATE: July 22, 2024 TIME: 9:53 AM PAGER/CONTACT #: [id number] History and physical note* Kate Kirby APRN.CNP - 07/22/2024 9:53 AM EDT Images from the original note were not included. [facility] HISTORY AND PHYSICAL EXAMINATION SERVICE DATE: 07/22/2024 SERVICE TIME: 11:51 AM PRIMARY CARE PHYSICIAN: Najma Bloom DO Assessment Patient has the following medical conditions which may affect justine-operative course: Paroxysmal atrial fibrillation (HCC) Assessment: daily Eliquis, controlled on rx 02/15/2024 Osiris Paris CNP, Cardiology Conclusion: (E78.2) Hyperlipidemia, mixed (primary encounter diagnosis) Comment: last labs 07/2023. LDL not calculated due to high triglycerides Plan: LIPID PANEL BASIC Will recheck labs. Discussed dietary recommendations. (I10) Hypertension, essential Comment: low blood pressure. He is not sympotmatic. States he is always low. Plan: continue same meds. (I48.0) Paroxysmal atrial fibrillation (HCC) Comment: appears to be in sinus rhythm now Plan: continue same meds (I25.10) Coronary artery disease involving [place] coronary artery of [place] heart without angina pectoris Comment: no ischemic symptoms. Plan: continue same meds. PLAN AND RECOMMENDATIONS: Magnesium glycinate 400-800mg at bedtime. Follow up Dr Benton in 6 months Have fasting lipid level before your next visit. CONTACT INFORMATION: Osiris Paris APRN.CNP Coronary artery disease involving [place] coronary artery of [place] heart without angina pectoris Assessment: non-obstructing, c/w statin, BB. Denies CP, palpitations, sob new or worsening cardiac symptoms. 02/26/2023 Pharm Stress CONCLUSIONS: 1. SPECT Perfusion Study: Normal. 2. There is no scintigraphic evidence for inducible ischemia. 3. No evidence of scarred myocardium. 4. Left ventricle is mildly dilated. The left ventricle systolic function is normal. 5. Right ventricle is normal in size. The right ventricle systolic function is normal. 6. This is a low risk scan. Gated Stress IR:3D LVEF % 64 02/15/2024 Osiris Paris APRN.CNP (E78.2) Hyperlipidemia, mixed (primary encounter diagnosis) Comment: last labs 07/2023. LDL not calculated due to high triglycerides Plan: LIPID PANEL BASIC Will recheck labs. Discussed dietary recommendations. (I10) Hypertension, essential Comment: low blood pressure. He is not sympotmatic. States he is always low. Plan: continue same meds. (I48.0) Paroxysmal atrial fibrillation (HCC) Comment: appears to be in sinus rhythm now Plan: continue same meds (I25.10) Coronary artery disease involving [place] coronary artery of new[place] heart without angina pectoris Comment: no ischemic symptoms. Plan: continue same meds. PLAN AND RECOMMENDATIONS: Magnesium glycinate 400-800mg at bedtime. Follow up Dr Benton in 6 months Have fasting lipid level before your next visit. Essential hypertension Assessment: controlled on rx Last 14 BP Last 14 Encounter BP Readings: Date: BP: 07/22/2024 112/80 07/18/2024 116/66 06/23/2024 122/70 06/06/2024 107/72 05/30/2024 102/61 05/25/2024 108/71 05/11/2024 125/69 05/11/2024 180/95 04/19/2024 109/60 03/04/2024 95/64 02/18/2024 80/50 02/15/2024 94/56 12/23/2023 114/74 12/23/2023 82/62 Thrombocytopenia (HCC) Assessment: hx, last platelets WNL Platelet Count Date Value Ref Range Status 06/10/2024 175 150 - 400 k/uL Final Anemia Assessment: hx, s/p toe amputation 06/06/2024 Hemoglobin (g/dL) Date Value 06/10/2024 9.7 10/31/2021 13.1 Hematocrit (%) Date Value 06/10/2024 31.0 10/31/2021 38.8 WBC (k/uL) Date Value 06/10/2024 7.23 10/31/2021 8.38 Stage 3b chronic kidney disease (HCC) Assessment: on rx, following neprhrology Creatinine Date Value Ref Range Status 06/10/2024 1.65 (H) 0.73 - 1.22 mg/dL Final 06/06/2024 1.97 (H) 0.73 - 1.22 mg/dL Final 06/05/2024 1.93 (H) 0.73 - 1.22 mg/dL Final 06/04/2024 1.73 (H) 0.73 - 1.22 mg/dL Final 04/19/2024 Dr. Polanco, Nephrology ASSESSMENT AND PLAN 1) CKD Stage 3 BL 2.3-2.5 , GFR 30-35 -Etiology (likely) : DKD, A1C 8.5 -s/p TURP and right ureteroscopic and right ureter stent placement. -Previous baseline creatinine was around 2.3 - Does not need preparation for dialysis at this time. - Cr is 2.35 GFR 31 ACR 126 mg/g -UA > 20 WBC , LE + , asymptomatic UTI - K 4.5 -Will continue routine monitoring of chemistries. -Avoid all PICC lines, i.v.s and blood draws in arms above wrists as possible to preserve veins forpossible AV fistula or AVG. -Lisinorpil 10 mg po daily and off of metformin -Farxiga 10 mg po daily , on Ozemoic 1.0 q weekly -Lasix 40 mg daily, KCL 10 meq po daily as needed - -Sodium bicarbonate 650 mg 2 tablets twice a day _ 2) Hypertension: -Blood pressure is adequately controlled. -No changes to medications at this time. -The patient was advised to follow a low salt/DASH diet. 3) Anemia: -Hemoglobin is adequate. -Continue periodic monitoring of CBC and iron studies. 4) Secondary Hyperparathyroidism/CKD-MBD: pTH 158 Vit d 41 -Intact PTH, vitamin d, calcium, and phosphorus levels are acceptable. -No changes -in management. -Will continue to monitor these indices. 5) Acidosis: -Serum bicarbonate level is acceptable. - No changes in management. 6) Proteinuria: -Will continue monitor microalbumin/creatinine ratio. 7) Dyslipidemia: -The patient has moderate CKD and would benefit from aggressive lipid control with an LDL goal of <100 and TG less than 150mg/dl. 8) DM On amaryl and januvia Farxiga Amaryl decreased to 1 tabs po daily once we start on Farxiga 9) Hyperuricemia Uric acid6. 6.3 Allopurinol 100 mg po BID Add colchicine as needed Return in 4 months (on 08/19/2024). Epi Polanco MD Leg swelling Assessment: controlled on rx Depression Assessment: stable on rx per pt BPH associated with nocturia Assessment: s/p TURP Diffuse large B cell lymphoma (HCC) Assessment: in remission, s/p chemo and XRT 08/27/2023 Martell Waterman MD Assesment 1. 58-year-old male with a diagnosis of diffuse large B-cell lymphoma.. Presented with a 5 cm lesion along the left pelvic sidewall. Diagnosed in June 2019. Treated with 6 cycles of Rituxan CHOPchemotherapy. Received radiation to the area of persistent PET avid disease on 01/12/2022. Patient has done relatively well since without any evidence of relapse. Continue to monitor him. High risk of relapse. Repeat CAT scans again in 8 6 months. Current CAT scans show no progression. 2. Keflex prescribed for the mild cellulitis over the left harris from trauma. Martell Waterman MD Hyperlipidemia, mixed Assessment: c/w statin Hyperparathyroidism (HCC) Assessment: secondary to CKD, following endo Physical debility Assessment: hx Class 1 obesity due to excess calories with serious comorbidity and body mass index (BMI) of 33.0 to 33.9 in adult Assessment: Body mass index is 33.91 kg/m . Barney Activity Status Index: METS: Climb a flight of stairs or walk up a hill (5.50 METs) DASI Score: 5.5 Patient denies any chest pain or undue shortness of breath with the above physical activity. Clinical Frailty Scale: 3. Well, with treated comorbid disease STOP-Bang Score: Has or is being treated for high blood pressure Patient over 50 years old Has a large neck Male patient Denies snoring loudly Denies feeling tired, fatigued, or sleepy during the daytime Has not been observed to stop breathing or choking/gasping during sleep BMI less than or equal to 35 kg/m^2 STOP-Bang Score: 4 [id number] Score: Age: <65 Sex: male CHF history: No Hypertension history: Yes Stroke/TIA/thromboembolism history: No Vascular disease history: No Diabetes history: Yes [id number] Score: 2 ARISCAT Score: Age: 51-80 Preoperative SpO2: >=96% Respiratory infection in the last month: No Preoperative anemia: No Surgical incision: peripheral Duration of surgery: <2 hrs Emergency procedure: No ARISCAT Score: 3 ANESTHESIA FINDINGS: Intubation History: No history of difficult intubation Significant Anesthesia Considerations: none Airway History: No history of difficult airway I - PHYSICAL EVALUATION AIRWAY Patient intubated: No. Tracheostomy tube not present Mallampati: I. TM distance: >3 FB. Neck ROM: full ROM without neurological symptoms. Mouth opening: adequate. Short neck: no. Thick neck: yes Burgess present: no Lip Bite Test: I Microretrognathia/Micronagthia/Recessed Chin: No DENTAL Dental findings: teeth intact. II - ANESTHESIA PLAN Anesthetic Plan: other Beta Chaka Monitoring Plan Post Procedure Analgesic Plan Prepared for Surgery: optimally prepared for surgery. CONSULTS: Patient does not require consults for optimization at this time Planned Anesthetic: other anesthesia choice The Following Tests/Procedures Have Been Initiated: No orders of the defined types were placed in this encounter. REASON FOR VISIT: Yamilka Sharma is a 58 year old male who is scheduled for Procedure(s): ARTHROSCOPY KNEE MENISCECTOMY MEDIAL OR LATERAL (Left) at the request of Dr. Jennifer Michele for consultation. My final recommendation will be communicated back to the requesting physician by way of shared medical record or letter. Subjective The patient has the following: COVID-19 Immunization Status Discontinued - Covid-19 Vaccine Discontinued 05/26/2023 Frequency changed to Never by Criss Devi MA (Patient Preference) 05/02/2022 Postponed until 05/02/2023 by Cordelia Floyd MA (Declined at this time) 04/18/2021 Postponed until 04/18/2022 by Criss Devi MA (Declined at this time) Only the first 3 history entries have been loaded, but more history exists. CHIEF COMPLAINT: Pre-op exam HPI: Yamilka Sharma is a 58 year old seen for PAC due to scheduled above surgery because of leftknee pain. 07/13/2024, Dr. Jennifer Michele Chief Complaint Yamilka Sharma is a 58 year old male who presents today for follow up office visit. Patient presents with: Left Knee - Established Patient, Knee Pain History of Present Illness PAIN EVALUATION 07/13/2024 1355 Pain Level: 3 Pain Location: Knee-Left Description: Sore;Aching;Throbbing Duration Units: Months Frequency: Intermittent HPI: Yamilka Sharma is a 58 year old male for a follow up visit left knee pain. Patient states he has noticed some improvement in swelling but continues to have a lot of medial knee pain. He is hesitant to have an aspiration and is persistent on needing surgery. He states he has been cleared from podiatry to have surgery. Pain history is noted as above. Patient states that he is planning on getting HBA1C next week. Is there any overall improvement in your condition? No Any new injury, since being seen last: No REVIEW OF SYSTEMS: General: No weight loss, malaise or fevers. Neurological: No history of TIA's, stroke, B[employer]ANT tumor, impaired sensorium, hemiplegia, paraplegia orquadraplegia. No neurological symptoms or problems. Respiratory: +former smoker Positive for: obstructive sleep apnea and CPAP/BiPAP noncompliant. Negative for: pneumonia within 6 weeks, tobacco use and URI < 2 weeks. Cardiovascular: Positive for: anticoagulation therapy, atrial fibrillation (paryoxymal, hx post- op), CAD, hyperlipidemia and hypertension Patient's last office visit The following tests and/or procedures were not performed: cardiac stents. Negative for: abdominal aortic aneurysm, AICD/PPM, angina, arrhythmia, chest pain, CHF, congenital heart defect, DVT/PE, recent PA, murmur/valvular heart disease, PTCA, PVD, open heart surgery and valve surgery. GI: No history of GI symptoms or problems. No history of esophageal varices, recent ascites, or ETOH greater than 2 drinks per day. : Positive for: BPH (s/p TURP) and renal failure. Patient's renal failure is chronic. Negative for: nephrolithiasis and urinary tract infection. Endocrine: Positive for: diabetes mellitus and hyperparathyroidism (on rx). Patient's diabetes mellitus is controlled by insulin, oral agents and weekly injectable. Negative for: hypothyroidism. Hematology: Positive for: chronic anti-coagulation/platelet meds. Patient is on anti- coagulation/platelet medication(s): DOAC. Negative for: anemia, bruises/bleeds easily and transfusion of at least 4 units within 72 hours prior to surgery. Oncology: +lymphoma s/p chemo and XRT Psych: No history of psychiatric symptoms or problems. Musculoskeletal: See HPI. Positive for: swelling (on rx). Skin: Negative for lesions, rash and itching. PAST MEDICAL HISTORY Diagnosis Date Acute exacerbation of chronic obstructive airways disease (HCC) Rx for augmentin, symptomatic care as needed. Patient denies COPD, asthma, uses an inhaler PRN usually about once a year with hot weather Anemia Depression Diffuse large B cell lymphoma (HCC) 07/14/2019 Encounter for screening for malignant neoplasm of prostate Essential hypertension 05/26/2024 continue Lisinopril Hydronephrosis Hydronephrosis with ureteral stricture Hypomagnesemia 10/30/2019 Nausea and vomiting 01/09/2023 Obesity, Class II, BMI 35-39.9 12/15/2022 DEISI (obstructive sleep apnea) mild and no CPAP Paroxysmal atrial fibrillation (HCC) 01/10/2023 Prostatitis 01/09/2023 Sepsis due to gram-negative UTI (HCC) (HCC) 10/25/2019 Thrombocytopenia (HCC) Type 2 diabetes mellitus (HCC) 05/26/2024 continue current meds Ureteral obstruction, left Urinary tract infection Vitamin D deficiency 01/09/2023 PAST SURGICAL HISTORY Procedure Laterality Date AMPUTATION TOE,MT-P JT Right 05/2024 right great toe APPENDECTOMY 1982 BONE MARRO ASPIRATE & BIOPSY 07/20/2019 CYSTOSCOPY 2019 KNIFE,CARPAL TUNNEL,08 Bilateral Carpal Tunnel Surgery 06/10/2013 NEPHROSTOMY TUBE 06/2019 PAST SURGICAL HISTORY OF 2013 temporal arterial biopsy PAST SURGICAL HISTORY OF 2013 sinus scraping, deviated septum repair PAST SURGICAL HISTORY OF Right PURPLE POWER PORT RIGHT CHEST PAST SURGICAL HISTORY OF Right TESTICLE REMOVED PAST SURGICAL HISTORY OF 02/19/2021 ureter stent FAMILY HISTORY Problem Relation Age of Onset other (Other inflammatory connective disorder) Mother Scleroderma other (Respiratory disorder) Mother other (Rheumatologic disorder) Mother other (Systemic lupus) Mother Heart Father Diabetes Father Diabetes Brother Diabetes Brother Cancer No Family History Social History Tobacco Use Smoking status: Former Current packs/day: 0.00 Average packs/day: 2.5 packs/day for 31.0 years (77.5 ttl pk-yrs) Types: Cigarettes Start date: 10/26/1983 Quit date: 10/26/2014 Years since quittin.7 Smokeless tobacco: Never Tobacco comments: cigarette; Start date: 1983; Not interested in quitting smoking; Amount: 10-19 cigs/day; quit 06/2015; Tobacco modified 11/15/2015; Tobacco reviewed with patient 11/15/2015 Vaping Use Vaping status: Never Used Substance Use Topics Alcohol use: Yes Comment: occasional Drug use: No Prior to Admission medications as of 07/22/24 1240 Medication Sig Last Dose Taking OZEMPIC 1 mg/dose (4 mg/3 mL) pen INJECT 1 MG UNDER THE SKIN WEEKLY Taking Yes metFORMIN (GLUCOPHAGE) 500 mg tablet Take 1 tablet by mouth two times a day with meals. Taking Yes lisinopril (ZESTRIL) 5 mg tablet Take 1 tablet by mouth once daily. Taking Yes sodium bicarbonate 650 mg tablet Take 2 tablets by mouth two times a day. Taking Yes blood sugar diagnostic (ONETOUCH VERIO TEST STRIPS) test strip 1 Strip two times a day. Use with blood glucose test two times a day. Insulin Dep? No Taking Yes dapagliflozin propanediol (FARXIGA) 10 mg tablet Take 1 tablet by mouth daily with breakfast. Taking Yes gabapentin (NEURONTIN) 600 mg tablet Take 1 tablet by mouth three times a day for 90 days. Taking Yes dilTIAZem CD (CARDIZEM CD, CARTIA XT) 120 mg 24 hr capsule Take 1 capsule by mouth once daily. Taking Yes SITagliptin phosphate (JANUVIA) 100 mg tablet Take 1 tablet by mouth once daily. Taking Yes allopurinol (ZYLOPRIM) 100 mg tablet take 1 tablet twice a day Taking Yes insulin glargine (LANTUS SOLOSTAR U-100 INSULIN) 100 unit/mL (3 mL) Inject 30 Units subcutaneously every morning. Taking Yes glimepiride (AMARYL) 4 mg tablet Take 4 mg by mouth two times a day with meals. Taking Yes furosemide (LASIX) 40 mg tablet Take 1 tablet by mouth once daily. Taking Yes acetaminophen (TYLENOL) 325 mg tablet Take 2 tablets by mouth every 6 hours as needed for pain. Taking Yes lancets (ONETOUCH DELICA PLUS LANCET) 33 gauge Use with blood glucose test three times a day. Insulin Dep? Yes Taking Yes blood sugar diagnostic (ONETOUCH VERIO TEST STRIPS) test strip Use with blood glucose test three times a day. Insulin Dep? Yes Taking Yes DULoxetine (CYMBALTA) 60 mg capsule Take 1 capsule by mouth two times a day. Taking Yes rosuvastatin (CRESTOR) 40 mg tablet take 1 tablet daily Taking Yes lidocaine-prilocaine (EMLA) 2.5-2.5 % cream APPLY TO AFFECTED AREA NEEDED PRIOR TO CHEMOTHERAPY Taking Yes metoprolol tartrate, short acting, (LOPRESSOR) 25 mg tablet Take 1 tablet by mouth every 12 hours. Taking Yes ergocalciferol 50,000 unit capsule (VITAMIN D2, DRISDOL) TAKE 1 CAPSULE ONCE A WEEK Taking Yes Blood-Glucose Meter 1 Each three times daily. Please match the test strips and lancets Taking Yes sildenafil (REVATIO) 20 mg tablet Take 3-5 tablets by mouth once daily as needed. Taking Yes albuterol HFA (PROVENTIL HFA, VENTOLIN HFA) 90 mcg/actuation inhaler USE 2 INHALATIONS INSTRUCTED EVERY 4 HOURS NEEDED FOR WHEEZING/SHORTNESS OF BREATH Taking Yes apixaban (ELIQUIS) 5 mg tab(s) Take 1 tablet by mouth two times a day. Patient not taking: Reported on 07/22/2024 Not Taking No medication comments found. ALLERGIES Allergen Reactions Aspartame Intolerance Severe headache Bactrim [Sulfametho* Hives, Intolerance Reaction: gas Sensitivity: Intolerance. Sensitivity: Intolerance Biaxin [Clarithromy* Unknown Indigestion/gas Influenza Vaccine T* Unknown Flu Monosodium Glutamate Diarrhea Monosodium Glutamat* Intolerance Severe headache Pantoprazole Diarrhea Sulfa (Sulfonamide * Rash, Hives Clindamycin Hcl Diarrhea, GI Upset, Vomiting Reaction: Nausea/vomiting/diarrhea Other Reaction: stomach cramps Sensitivity: Intolerance Objective PHYSICAL EXAM: General: alert and oriented (x3), healthy appearance and obese. Pertinent negatives noted - not distressed. Skin: normal color, no rash or lesions. HEENT: EOM intact and pupils equal round. Pertinent negatives noted - no carotid bruit. Cardiovascular: regular rate and rhythm, normal S1 and S2, no rub, murmurs, or gallop. Respiratory: normal breath sounds, no wheezes or crackles. No chest wall deformity or tenderness. Abdomen: soft. Pertinent negatives noted - not tender. Extremities: no deformity, no edema or tenderness, no joint swelling or clubbing. Neurological: normal cognition and motor skills. Gait normal. No weakness or sensory deficit. PAIN ASSESSMENT: Pain Pain Level: 4 (between 4-8) Pain Location: Knee-Left Description: Shooting Duration Amount of Time: 2 Duration Units: Months Frequency: Continuous Intervention/Comfort measure: Medication VITALS: BP 112/80 Pulse 80 Temp (Src) 96.4 (Temporal) Resp 16 Ht 6' 0 (1.83m) Wt 250 lb (113.4kg) SpO2 99% BMI 33.90 kg/(m^2). Diagnostic tests reviewed for today's visit: Lab Value Units Date High Low HB 9.7 g/dL 06/10/2024 17.0 13.0 HCT 31.0 % 06/10/2024 51.0 39.0 WBC 7.23 k/uL 06/10/2024 11.00 3.70 PLT 175 k/uL 06/10/2024 400 150 NA 137 mmol/L 06/10/2024 144 136 K 4.2 mmol/L 06/10/2024 5.1 3.7 GLUC 102 mg/dL 06/10/2024 99 74 BUN 37 mg/dL 06/10/2024 24 9 CREAT 1.65 mg/dL 06/10/2024 1.22 0.73 PTSEC No results within date range. INR No results within date range. APTT No results within date range. ALT 13 U/L 05/16/2024 54 10 AST 12 U/L 05/16/2024 40 14 TBILI 0.2 mg/dL 05/16/2024 1.3 0.2 TSH No results within date range. Lab Value Units Date High Low HCGQT No results within date range. UHCG No results within date range. HCG, BODY* No results within date range. Lab Value Units Date High Low ABORHD No results within date range. ABSCREEN No results within date range. Hemoglobin A1C (%) Date Value 05/12/2024 9.5 12/17/2022 8.4 10/26/2019 10.2 07/02/2019 9.7 04/19/2018 10.7 Hemoglobin A1C (POCT) (%) Date Value 07/18/2024 6.9 02/18/2024 11.5 10/09/2023 10.4 05/26/2023 8.5 11/21/2022 8.0 Recent Results (from the past 8760 hour(s)) ECG COMPLETE Collection Time: 06/10/24 1:22 PM Result Value Ventricular Rate 84 Atrial Rate 84 P-R Interval 212 QRS Duration 92 QT Interval 368 QTC Calculation (Bazett) 434 Calculated P Noble 71 Calculated R Noble 10 Calculated T Noble 61 Impression SINUS RHYTHM WITH 1ST DEGREE A-V BLOCK OTHERWISE NORMAL ECG NO PREVIOUS ECGS AVAILABLE Confirmed by MD DAYNA, KENNEDY ([id number]) on 06/11/2024 10:54:11 PM Recent Results (from the past 34471 hour(s)) ECHO Collection Time: 01/14/23 10:09 AM Impression CONCLUSIONS: - Technically difficult exam due to body habitus and pt unable to tolerate probe pressure. - Exam indication: Sustained atrial fibrillation - The left ventricle is dilated. There is no left ventricular hypertrophy. Left ventricular systolic function is normal. EF = 65 5% (visual est.) Normal left ventricular diastolic function. - The right ventricle is normal in size. Right ventricular systolic function is normal. - There are no significant valvular abnormalities. - The patient has not had a prior CC echocardiographic exam for comparison. * * * Final * * * Instructions Given to Patient: Instructions located in the after visit summary. Patient given verbal and written preop instructions and voices comprehension and compliance. SIGNATURE: Kate Kirby APRN.CNP PATIENT NAME: Yamilka Sharma DATE: July 22, 2024 TIME: 9:53 AM PAGER/CONTACT #: [facility] Instructions* Patient Instructions* Kate Kirby APRN.CNP - 07/22/2024 9:52 AM EDT Images from the original note were not included. [facility] PATIENT PREOPERATIVE INSTRUCTIONS Jennifer Michele,* has scheduled you for your procedure at this surgery center: [facility]: [phone] -- [address] [place] [address]. Please read below carefully for your personalized instructions. Dietary Restrictions: - No solid food after midnight. - You may have 12 ounces of clear liquids (water, clear juices such as apple juice or gatorade, carbonated beverages, clear tea, black coffee, jello) until 2 hours before scheduled arrival at facility. No red/purple coloring and no creamer/sugar Medications: Unless instructed differently below, stay on all of your medications until your surgery. If you start any new medications after today's visit, please contact your surgeon. Pre-Surgery Med Instructions Medication Instructions OZEMPIC 1 mg/dose (4 mg/3 mL) pen Stop 7 days before surgery metFORMIN (GLUCOPHAGE) 500 mg tablet Do not take the day of surgery lisinopril (ZESTRIL) 5 mg tablet Do not take the day of surgery sodium bicarbonate 650 mg tablet Take the day of surgery with a small sip of water blood sugar diagnostic (ONETOUCH VERIO TEST STRIPS) test strip dapagliflozin propanediol (FARXIGA) 10 mg tablet Stop 3 days before surgery gabapentin (NEURONTIN) 600 mg tablet Take the day of surgery with a small sip of water dilTIAZem CD (CARDIZEM CD, CARTIA XT) 120 mg 24 hr capsule Take the day of surgery with a small sipof water SITagliptin phosphate (JANUVIA) 100 mg tablet Do not take the day of surgery oxyCODONE IR (ROXICODONE) 5 mg immediate release tablet IF needed allopurinol (ZYLOPRIM) 100 mg tablet Do not take the day of surgery insulin glargine (LANTUS SOLOSTAR U-100 INSULIN) 100 unit/mL (3 mL) Insulin: Do not take the morning of surgery. Take 75% of your usual dose the night before surgery if possible. If not possible, take full dose the night before surgery. glimepiride (AMARYL) 4 mg tablet Do not take the day of surgery furosemide (LASIX) 40 mg tablet Do not take the day of surgery acetaminophen (TYLENOL) 325 mg tablet IF needed lancets (ONETOUCH DELICA PLUS LANCET) 33 gauge blood sugar diagnostic (ONETOUCH VERIO TEST STRIPS) test strip DULoxetine (CYMBALTA) 60 mg capsule Take the day of surgery with a small sip of water rosuvastatin (CRESTOR) 40 mg tablet Take the day of surgery with a small sip of water lidocaine-prilocaine (EMLA) 2.5-2.5 % cream Do not take the day of surgery metoprolol tartrate, short acting, (LOPRESSOR) 25 mg tablet Take the day of surgery with a small sip of water ergocalciferol 50,000 unit capsule (VITAMIN D2, DRISDOL) Stop 7 days before surgery Blood-Glucose Meter sildenafil (REVATIO) 20 mg tablet Stop 2 days before surgery albuterol HFA (PROVENTIL HFA, VENTOLIN HFA) 90 mcg/actuation inhaler Take the day of surgery with asmall sip of water Is Patient Diabetic:Yes Preoperative Instructions for Patient's with Diabetes Mellitus/ Prediabetes Oral Medication Instructions: DO NOT TAKE THE MORNING OF SURGERY: Metformin (GLUCOPHAGE XR) Tradjenta (linagliptin) Actos/Pioglitazone Amaryl/Glimepiride Glucotrol/Glipizide Januvia/Sitagliptin Glyburide Prandin/Repaglinide Starlix/Nateglinide Symlin/Pramlintide Dulaglutide/Trulicity Exenatide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 Signature: Osiris Cartwright RN July 15, 2024 Allergies As of Date: 07/15/2024 Noted Allergy Reaction ASPARTAME 06/05/2020 5 - Intolerance Comments: Severe headache BACTRIM (SULFAMETHOXAZOLE-TRIMETH*07/18/2016 4 - Hives 5 - Intolerance Comments: Reaction: gas Sensitivity: Intolerance. Sensitivity: Intolerance BIAXIN (CLARITHROMYCIN) 07/18/2016 16 - Unknown Comments: Indigestion/gas INFLUENZA VACCINE TRI-SP 09-10 10/29/2018 16 - Unknown Comments: Flu MONOSODIUM GLUTAMATE 05/25/2024 6 - Diarrhea MONOSODIUM GLUTAMATE (MSG) 06/05/2020 5 - Intolerance Comments: Severe headache PANTOPRAZOLE 02/01/2021 6 - Diarrhea SULFA (SULFONAMIDE ANTIBIOTICS) 07/18/2016 2 - Rash 4 - Hives CLINDAMYCIN HCL 07/18/2016 6 - Diarrhea 8 - GI Upset 11 - Vomiting Comments: Reaction: Nausea/vomiting/diarrhea Other Reaction: stomach cramps Sensitivity: Intolerance Date Reviewed: 07/13/2024 Reviewed by: Chasidy Beck MA - Fully Assessed Reason for Visit: Transition Of Care [4074] Cmt: TCM f/u Prescriptions as of 07/15/2024 - sodium bicarbonate 650 mg tablet Take 2 tablets by mouth two times a day. - blood sugar diagnostic ([employer] VERIO TEST STRIPS) test strip 1 Strip two times a day. Use with blood glucose test two times a day. Insulin Dep? No - dapagliflozin propanediol (FARXIGA) 10 mg tablet Take 1 tablet by mouth daily with breakfast. - gabapentin (NEURONTIN) 600 mg tablet Take 1 tablet by mouth three times a day for 90 days. - dilTIAZem CD (CARDIZEM CD, CARTIA XT) 120 mg 24 hr capsule Take 1 capsule by mouth once daily. - SITagliptin phosphate (JANUVIA) 100 mg tablet Take 1 tablet by mouth once daily. - oxyCODONE IR (ROXICODONE) 5 mg immediate release tablet Take 1 tablet by mouth every 8 hours as needed for pain for up to 30 days. - allopurinol (ZYLOPRIM) 100 mg tablet take 1 tablet twice a day - insulin glargine (LANTUS SOLOSTAR U-100 INSULIN) 100 unit/mL (3 mL) Inject 30 Units subcutaneously every morning. - metFORMIN (GLUCOPHAGE) 500 mg tablet Take 500 mg by mouth two times a day with meals. - glimepiride (AMARYL) 4 mg tablet Take 4 mg by mouth two times a day with meals. - furosemide (LASIX) 40 mg tablet Take 1 tablet by mouth once daily. - lisinopril (ZESTRIL) 5 mg tablet Take 1 tablet by mouth once daily. - acetaminophen (TYLENOL) 325 mg tablet Take 2 tablets by mouth every 6 hours as needed for pain. - lancets ([employer]CH DELICA PLUS LANCET) 33 gauge Use with blood glucose test three times a day. Insulin Dep? Yes - blood sugar diagnostic (ONETOUCH VERIO TEST STRIPS) test strip Use with blood glucose test three times a day. Insulin Dep? Yes - DULoxetine (CYMBALTA) 60 mg capsule Take 1 capsule by mouth two times a day. - rosuvastatin (CRESTOR) 40 mg tablet take 1 tablet daily - lidocaine-prilocaine (EMLA) 2.5-2.5 % cream APPLY TO AFFECTED AREA NEEDED PRIOR TO CHEMOTHERAPY - semaglutide (OZEMPIC) 1 mg/dose (4 mg/3 mL) pen Inject 1 mg subcutaneously one time a week. - metoprolol tartrate, short acting, (LOPRESSOR) 25 mg tablet Take 1 tablet by mouth every 12 hours. - ergocalciferol 50,000 unit capsule (VITAMIN D2, DRISDOL) TAKE 1 CAPSULE ONCE A WEEK - apixaban (ELIQUIS) 5 mg tab(s) Take 1 tablet by mouth two times a day. - Blood-Glucose Meter 1 Each three times daily. Please match the test strips and lancets - sildenafil (REVATIO) 20 mg tablet Take 3-5 tablets by mouth once daily as needed. 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 [facility]09-18-2024 NoteHNO ID: [id number] Author: JENNIFER MICHELE, DO Service: ? Author Type: Physician Type: Progress Notes Filed: 07/14/2024 13:52 Note Text: Follow Up Visit Chief Complaint Yamilka Sharma is a 58 year old male who presents today for follow up office visit. Patient presents with: Left Knee - Established Patient, Knee Pain History of Present Illness PAIN EVALUATION 07/13/2024 5455 Pain Level: 3 Pain Location: Knee-Left Description: Sore;Aching;Throbbing Duration Units: Months Frequency: Intermittent HPI: Yamilka Sharma is a 58 year old male for a follow up visit left knee pain. Patient states he has noticed some improvement in swelling but continues to have a lot of medial knee pain. He is hesitant to have an aspiration and is persistent on needing surgery. He states he has been cleared from podiatry to have surgery. Pain history is noted as above. Patient states that he is planning on getting HBA1C next week. Is there any overall improvement in your condition? No Any new injury, since being seen last: No REVIEW OF SYMPTOMS: Patient did not have, and does not currently have, any weight loss, malaise, fever, chills, headache, chest pain, chest pressure, palpitations, cough, shortness of breath, orthopnea, paroxsymal nocturnal dyspnea, nausea, vomiting, diarrhea, constipation, melena, hematochezia, urinary difficulties, prolonged bleeding, easily bruising, heat or cold intolerance, new onset joint pain or swelling, new onset extremity weakness or numbness, new onset auditory or visual disturbances, lightheadedness, dizziness, partial loss of consciousness or full loss of consciousness. Current Outpatient Medications Medication Sig sodium bicarbonate 650 mg tablet Take 2 tablets by mouth two times a day. blood sugar diagnostic ([employer] VERIO TEST STRIPS) test strip 1 Strip two times a day. Use with blood glucose test two times a day. Insulin Dep? No dapagliflozin propanediol (FARXIGA) 10 mg tablet Take 1 tablet by mouth daily with breakfast. gabapentin (NEURONTIN) 600 mg tablet Take 1 tablet by mouth three times a day for 90 days. dilTIAZem CD (CARDIZEM CD, CARTIA XT) 120 mg 24 hr capsule Take 1 capsule by mouth once daily. SITagliptin phosphate (JANUVIA) 100 mg tablet Take 1 tablet by mouth once daily. oxyCODONE IR (ROXICODONE) 5 mg immediate release tablet Take 1 tablet by mouth every 8 hours as needed for pain for up to 30 days. allopurinol (ZYLOPRIM) 100 mg tablet take 1 tablet twice a day insulin glargine (LANTUS SOLOSTAR U-100 INSULIN) 100 unit/mL (3 mL) Inject 30 Units subcutaneously every morning. metFORMIN (GLUCOPHAGE) 500 mg tablet Take 500 mg by mouth two times a day with meals. glimepiride (AMARYL) 4 mg tablet Take 4 mg by mouth two times a day with meals. furosemide (LASIX) 40 mg tablet Take 1 tablet by mouth once daily. lisinopril (ZESTRIL) 5 mg tablet Take 1 tablet by mouth once daily. acetaminophen (TYLENOL) 325 mg tablet Take 2 tablets by mouth every 6 hours as needed for pain. lancets ([employer] DELICA PLUS LANCET) 33 gauge Use with blood glucose test three times a day. Insulin Dep? Yes blood sugar diagnostic (ONETOUCH VERIO TEST STRIPS) test strip Use with blood glucose test three times a day. Insulin Dep? Yes DULoxetine (CYMBALTA) 60 mg capsule Take 1 capsule by mouth two times a day. rosuvastatin (CRESTOR) 40 mg tablet take 1 tablet daily lidocaine-prilocaine (EMLA) 2.5-2.5 % cream APPLY TO AFFECTED AREA NEEDED PRIOR TO CHEMOTHERAPY semaglutide (OZEMPIC) 1 mg/dose (4 mg/3 mL) pen Inject 1 mg subcutaneously one time a week. ergocalciferol 50,000 unit capsule (VITAMIN D2, DRISDOL) TAKE 1 CAPSULE ONCE A WEEK apixaban (ELIQUIS) 5 mg tab(s) Take 1 tablet by mouth two times a day. Blood-Glucose Meter 1 Each three times daily. Please match the test strips and lancets sildenafil (REVATIO) 20 mg tablet Take 3-5 tablets by mouth once daily as needed. albuterol HFA (PROVENTIL HFA, VENTOLIN HFA) 90 mcg/actuation inhaler USE 2 INHALATIONS INSTRUCTED EVERY 4 HOURS NEEDED FOR WHEEZING/SHORTNESS OF BREATH metoprolol tartrate, short acting, (LOPRESSOR) 25 mg tablet Take 1 tablet by mouth every 12 hours. No current facility-administered medications for this visit. Physical Exam Vitals: There were no vitals taken for this visit. Psych: Pleasant, good affect and mood General Appearance: Well appearing, alert, in no acute distress, well-hydrated, well nourished.. Skin: Skin color, texture, turgor normal, no suspicious rashes or lesions. Peripheral Pulses: Normal. Neurologic: Gait normal. Reflexes normal and symmetric. Sensation grossly intact.. Lymph Nodes: No cervical lymphadenopathy, No supraclavicular lymphadenopathy, No axillary lymphadenopathy., and No inguinal lymphadenopathy.. Respiratory: No recent pulmonary infection, hemoptysis, chronic cough, or shortness of breath at rest Rheumatologic: Joint (more content not included)...[facility] 07-13-2024 History of Present illness Narrative* Jennifer Michele, - 07/13/2024 1:58 PM EDT Follow Up Visit Chief Complaint Yamilka Sharma is a 58 year old male who presents today for follow up office visit. Patient presents with: Left Knee - Established Patient, Knee Pain History of Present Illness PAIN EVALUATION 07/13/2024 1355 Pain Level: 3 Pain Location: Knee-Left Description: Sore;Aching;Throbbing Duration Units: Months Frequency: Intermittent HPI: Yamilka Sharma is a 58 year old male for a follow up visit left knee pain. Patient states he has noticed some improvement in swelling but continues to have a lot of medial knee pain. He is hesitant to have an aspiration and is persistent on needing surgery. He states he has been cleared from podiatry to have surgery. Pain history is noted as above. Patient states that he is planning on getting HBA1C next week. Is there any overall improvement in your condition? No Any new injury, since being seen last: No REVIEW OF SYMPTOMS: Patient did not have, and does not currently have, any weight loss, malaise, fever, chills, headache, chest pain, chest pressure, palpitations, cough, shortness of breath, orthopnea, paroxsymal nocturnal dyspnea, nausea, vomiting, diarrhea, constipation, melena, hematochezia, urinary difficulties, prolonged bleeding, easily bruising, heat or cold intolerance, new onset joint pain or swelling, newonset extremity weakness or numbness, new onset auditory or visual disturbances, lightheadedness, dizziness, partial loss of consciousness or full loss of consciousness. Current Outpatient Medications Medication Sig sodium bicarbonate 650 mg tablet Take 2 tablets by mouth two times a day. blood sugar diagnostic (ONETOUCH VERIO TEST STRIPS) test strip 1 Strip two times a day. Use with blood glucose test two times a day. Insulin Dep? No dapagliflozin propanediol (FARXIGA) 10 mg tablet Take 1 tablet by mouth daily with breakfast. gabapentin (NEURONTIN) 600 mg tablet Take 1 tablet by mouth three times a day for 90 days. dilTIAZem CD (CARDIZEM CD, CARTIA XT) 120 mg 24 hr capsule Take 1 capsule by mouth once daily. SITagliptin phosphate (JANUVIA) 100 mg tablet Take 1 tablet by mouth once daily. oxyCODONE IR (ROXICODONE) 5 mg immediate release tablet Take 1 tablet by mouth every 8 hours as needed for pain for up to 30 days. allopurinol (ZYLOPRIM) 100 mg tablet take 1 tablet twice a day insulin glargine (LANTUS SOLOSTAR U-100 INSULIN) 100 unit/mL (3 mL) Inject 30 Units subcutaneously every morning. metFORMIN (GLUCOPHAGE) 500 mg tablet Take 500 mg by mouth two times a day with meals. glimepiride (AMARYL) 4 mg tablet Take 4 mg by mouth two times a day with meals. furosemide (LASIX) 40 mg tablet Take 1 tablet by mouth once daily. lisinopril (ZESTRIL) 5 mg tablet Take 1 tablet by mouth once daily. acetaminophen (TYLENOL) 325 mg tablet Take 2 tablets by mouth every 6 hours as needed for pain. lancets ([employer] DELICA PLUS LANCET) 33 gauge Use with blood glucose test three times a day. Insulin Dep? Yes blood sugar diagnostic (ONETOUCH VERIO TEST STRIPS) test strip Use with blood glucose test three times a day. Insulin Dep? Yes DULoxetine (CYMBALTA) 60 mg capsule Take 1 capsule by mouth two times a day. rosuvastatin (CRESTOR) 40 mg tablet take 1 tablet daily lidocaine-prilocaine (EMLA) 2.5-2.5 % cream APPLY TO AFFECTED AREA NEEDED PRIOR TO CHEMOTHERAPY semaglutide (OZEMPIC) 1 mg/dose (4 mg/3 mL) pen Inject 1 mg subcutaneously one time a week. ergocalciferol 50,000 unit capsule (VITAMIN D2, DRISDOL) TAKE 1 CAPSULE ONCE A WEEK apixaban (ELIQUIS) 5 mg tab(s) Take 1 tablet by mouth two times a day. Blood-Glucose Meter 1 Each three times daily. Please match the test strips and lancets sildenafil (REVATIO) 20 mg tablet Take 3-5 tablets by mouth once daily as needed. albuterol HFA (PROVENTIL HFA, VENTOLIN HFA) 90 mcg/actuation inhaler USE 2 INHALATIONS INSTRUCTED EVERY 4 HOURS NEEDED FOR WHEEZING/SHORTNESS OF BREATH metoprolol tartrate, short acting, (LOPRESSOR) 25 mg tablet Take 1 tablet by mouth every 12 hours. No current facility-administered medications for this visit. Physical Exam Vitals: There were no vitals taken for this visit. Psych: Pleasant, good affect and mood General Appearance: Well appearing, alert, in no acute distress, well-hydrated, well nourished.. Skin: Skin color, texture, turgor normal, no suspicious rashes or lesions. Peripheral Pulses: Normal. Neurologic: Gait normal. Reflexes normal and symmetric. Sensation grossly intact.. Lymph Nodes: No cervical lymphadenopathy, No supraclavicular lymphadenopathy, No axillary lymphadenopathy., and No inguinal lymphadenopathy.. Respiratory: No recent pulmonary infection, hemoptysis, chronic cough, or shortness of breath at rest Rheumatologic: Joint deformities: left knee pain Right Knee Exam Right knee exam is normal. Muscle Strength The patient has normal right knee strength. Tenderness The patient is experiencing no tenderness. Range of Motion Extension: normal Flexion: normal Tests Nav: Anterior - negative Posterior - negative Drawer: Anterior - negative Posterior - negative Other Erythema: absent Sensation: normal Pulse: present Swelling: none Left Knee Exam Tenderness The patient is experiencing tenderness in the medial joint line. Range of Motion Extension: normal Flexion: abnormal Tests Isela: Medial - positive Nav: Anterior - negative Posterior - negative Drawer: Anterior - negative Posterior - negative Other Erythema: absent Sensation: normal Pulse: present Swelling: none Comments: Neg homans bilaterally Assessment and Plan Radiographs: I have independently reviewed films and my findings are the same. and I have reviewed the images with the patient and family. Last MRI Knee - Impression Only MRI KNEE WO IVCON LEFT Exam End: 05/26/2024 3:29 PM (Final result) Impression: IMPRESSION: No fracture. Medial meniscal tear. Large joint effusion with mild synovitis. Nonspecific mild edema like along the fascial planes of the distal quadriceps and proximal posterior compartment calf musculature which may ... Impression: Encounter Diagnosis ICD-10-CM 1. Acute pain of left knee M25.562 2. Primary osteoarthritis of left knee M17.12 3. Tear of medial meniscus of left knee, current, unspecified tear type, initial encounter S83.242A Today, in detail, through a thorough evaluation, we discussed possible etiologies of pain and our plans for further diagnostic and therapeutic interventions. We discussed strategies for decreasing pain and improving strength, stability and motion. Patient's questions were answered in detailed. Patient verbalizes understanding and agrees with the treatment plan as discussed. Risks and benefits vs alternatives to treatment were discussed with patient. Risks including but not limited to blood loss, blood clot, infection, neurovascular injury, failure of procedure, need forrevision operation, loss of life and loss of limb. Patient aware of risks and benefits and agrees to proceed with written consent for surgical intervention. Off for 6 weeks postop Risks and benefits vs alternatives to treatment were discussed with patient. Risks including but not limited to blood loss, blood clot, infection, neurovascular injury, failure of procedure, need forrevision operation, loss of life and loss of limb. Patient aware of risks and benefits and agrees to proceed with written consent for surgical intervention. Discussed surgery was not curative of all of his ailments and that meniscus would be taken care of, not arthritis, etc. Patient aware as we discussed appropriate perceptions of possible outcomes. [facility] Med meniscectomy Dr bloom aware Needs plan periop for anticoag Awaiting hba1c prior to surgical intervention Jennifer Michele D.O. M.P.H. documented in this encounterWadsworth-Rittman [facility]09-16-2024 Telephone encounter Note * Telephone Encounter - Luz Maria Hernandez Student - 07/11/2024 10:03 AM EDT Patient requesting refills as follows: Last office visit: 06/23/24 Last refill: 10/21/23 Requested Prescriptions Pending Prescriptions Disp Refills sodium bicarbonate 650 mg tablet 360 tablet 3 Sig: Take 2 tablets by mouth two times a day. blood sugar diagnostic ([employer]CH VERIO TEST STRIPS) test strip 180 Strip 1 Si Strip two times a day. Use with blood glucose test two times a day. Insulin Dep? No Please review and advise. Alex Friend [facility]09-16-2024 Miscellaneous Notes* Telephone Encounter - Luz Maria Hernandez Student - 07/11/2024 10:03 AM EDT Patient requesting refills as follows: Last office visit: 06/23/24 Last refill: 10/21/23 Requested Prescriptions Pending Prescriptions Disp Refills sodium bicarbonate 650 mg tablet 360 tablet 3 Sig: Take 2 tablets by mouth two times a day. blood sugar diagnostic (ONETOUCH VERIO TEST STRIPS) test strip 180 Strip 1 Si Strip two times a day. Use with blood glucose test two times a day. Insulin Dep? No Please review and advise. Alex Friend documented in this encounterWadsworth-Rittman [facility]09-12-2024 NoteHNO ID: [id number] Author: OSIRIS CARTWRIGHT RN Service: ? Author Type: Registered Nurse Type: Progress Notes Filed: 07/07/2024 12:13 Note Text: AG TRANSITIONAL CARE MANAGEMENT (TCM) FOLLOW-UP NOTE Patient identified by name and date of : YES Spoke to: patient (w/ in the background) Diagnosis: N/A Summary: Pt is doing okay. States that he is teaching himself to walk w/ his cane, and w/o it. Pt would like to have Home PT. HC consult was placed 06/13/24. [facility] saw pt on . It is documented during the home visit that pt declined services. Pt states that he didn't need a Home SN to come out for his wound. He thought he would still get Home PT. At this time, pt is not homebound and wouldn't qualify for Home PT. [place] He refused OP PT d/t the cost - $40 a visit. States that he can't pay for OP PT since he isn't working. Per pt, he is not even making 1/4 of his normal pay. TCM RN offered to notify his PCP to place a new HC order for a possible eval - he declined. Per , they will wait for pt to get Home PT after his knee surgery, which he is hoping will be in the next few weeks. No ORscheduled at this time. Pt will see Ortho on 07/13/24 to determine next steps for OR. No refills needed. Reminded of his PCP appointment on 07/18/24 at 10:40a. No other needs today. Health leads screening tool questions performed? 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 Signature: Osiris Cartwright RN July 07[facility]09[facility] History of Present illness Narrative* Osiris Cartwright RN - 07/07/2024 11:54 AM EDT AG TRANSITIONAL CARE MANAGEMENT (TCM) FOLLOW-UP NOTE Patient identified by name and date of : YES Spoke to: patient (w/ in the background) Diagnosis: N/A Summary: Pt is doing okay. States that he is teaching himself to walk w/ his cane, and w/o it. Pt would liketo have Home PT. HC consult was placed 06/13/24. [facility] saw pt on . It is documented during the home visit that pt declined services. Pt states that he didn't need a Home SN to come out for his wound. He thought he would still get Home PT. At this time, pt is not homebound and wouldn't qualify for Home PT. [place] He refused OP PT d/t the cost - $40 a visit. States that he can't pay for OP PT since he isn't working. Per pt, he is not even making 1/4 of his normal pay. TCM RN offered to notify his PCP to place a new HC order for a possible eval - he declined. Per , they will wait for pt to get Home PT after his knee surgery, which he is hoping will be in the next few weeks. No OR scheduled at this time. Pt will see Ortho on 07/13/24 to determine next steps for OR. No refills needed. Reminded of his PCP appointment on 07/18/24 at 10:40a. No other needs today. Health leads screening tool questions performed? 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 Signature: Osiris Cartwright RN July 07, 2024 documented in this encounterWadsworth-[facility]ittman [facility]09-12-2024 NotePatient Outreach (AGACM) YAMILKA SHARMA ([id number]) 1965 M Date Time Provider Department 07/07/24 OSIRIS CARTWRIGHT [facility] During your visit today, we recorded the following information about you: Osiris Cartwright RN 07/07/2024 12:13 PM Signed AG TRANSITIONAL CARE MANAGEMENT (TCM) FOLLOW-UP NOTE Patient identified by name and date of : YES Spoke to: patient (w/ in the background) Diagnosis: N/A Summary: Pt is doing okay. States that he is teaching himself to walk w/ his cane, and w/o it. Pt would like to have Home PT. HC consult was placed 06/13/24. [facility] saw pt on . It is documented during the home visit that pt declined services. Pt states that he didn't need a Home SN to come out for his wound. He thought he would still get Home PT. At this time, pt is not homebound and wouldn't qualify for Home PT. [place] He refused OP PT d/t the cost - $40 a visit. States that he can't pay for OP PT since he isn't working. Per pt, he is not even making 1/4 of his normal pay. TCM RN offered to notify his PCP to place a new HC order for a possible eval - he declined. Per , they will wait for pt to get Home PT after his knee surgery, which he is hoping will be in the next few weeks. No OR scheduled at this time. Pt will see Ortho on 07/13/24 to determine next steps for OR. No refills needed. Reminded of his PCP appointment on 07/18/24 at 10:40a. No other needs today. Health leads screening tool questions performed? 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 Signature: Osiris Cartwright RN July 07, 2024 Allergies As of Date: 07/07/2024 Noted Allergy Reaction ASPARTAME 06/05/2020 5 - Intolerance Comments: Severe headache BACTRIM (SULFAMETHOXAZOLE-TRIMETH*07/18/2016 4 - Hives 5 - Intolerance Comments: Reaction: gas Sensitivity: Intolerance. Sensitivity: Intolerance BIAXIN (CLARITHROMYCIN) 07/18/2016 16 - Unknown Comments: Indigestion/gas INFLUENZA VACCINE TRI-SP -10/29/2018 16 - Unknown Comments: Flu MONOSODIUM GLUTAMATE 05/25/2024 6 - Diarrhea MONOSODIUM GLUTAMATE (MSG) 06/05/2020 5 - Intolerance Comments: Severe headache PANTOPRAZOLE 02/01/2021 6 - Diarrhea SULFA (SULFONAMIDE ANTIBIOTICS) 07/18/2016 2 - Rash 4 - Hives CLINDAMYCIN HCL 07/18/2016 6 - Diarrhea 8 - GI Upset 11 - Vomiting Comments: Reaction: Nausea/vomiting/diarrhea Other Reaction: stomach cramps Sensitivity: Intolerance Date Reviewed: 06/23/2024 Reviewed by: Najma Bloom DO - Fully Assessed Reason for Visit: Transition Of Care [8962] Cmt: TCM f/u Prescriptions as of 07/07/2024 - gabapentin (NEURONTIN) 600 mg tablet Take 1 tablet by mouth three times a day for 90 days. - dilTIAZem CD (CARDIZEM CD, CARTIA XT) 120 mg 24 hr capsule Take 1 capsule by mouth once daily. - SITagliptin phosphate (JANUVIA) 100 mg tablet Take 1 tablet by mouth once daily. - oxyCODONE IR (ROXICODONE) 5 mg immediate release tablet Take 1 tablet by mouth every 8 hours as needed for pain for up to 30 days. - allopurinol (ZYLOPRIM) 100 mg tablet take 1 tablet twice a day - insulin glargine (LANTUS SOLOSTAR U-100 INSULIN) 100 unit/mL (3 mL) Inject 30 Units subcutaneously every morning. - metFORMIN (GLUCOPHAGE) 500 mg tablet Take 500 mg by mouth two times a day with meals. - glimepiride (AMARYL) 4 mg tablet Take 4 mg by mouth two times a day with meals. - furosemide (LASIX) 40 mg tablet Take 1 tablet by mouth once daily. - lisinopril (ZESTRIL) 5 mg tablet Take 1 tablet by mouth once daily. - acetaminophen (TYLENOL) 325 mg tablet Take 2 tablets by mouth every 6 hours as needed for pain. - lancets (FlutherTOUCH DELICA PLUS LANCET) 33 gauge Use with blood glucose test three times a day. Insulin Dep? Yes - blood sugar diagnostic (ONETOUCH VERIO TEST STRIPS) test strip Use with blood glucose test three times a day. Insulin Dep? Yes - FARXIGA 10 mg tablet TAKE 1 TABLET DAILY WITH BREAKFAST - DULoxetine (CYMBALTA) 60 mg capsule Take 1 capsule by mouth two times a day. - rosuvastatin (CRESTOR) 40 mg tablet take 1 tablet daily - lidocaine-prilocaine (EMLA) 2.5-2.5 % cream APPLY TO AFFECTED AREA NEEDED PRIOR TO CHEMOTHERAPY - semaglutide (OZEMPIC) 1 mg/dose (4 mg/3 mL) pen Inject 1 mg subcutaneously one time a week. - blood sugar diagnostic (ONETOUCH VERIO TEST STRIPS) test strip 1 Strip two times a day. Use with blood glucose test two times a day. Insulin Dep? No - metoprolol tartrate, short acting, (LOPRESSOR) 25 mg tablet Take 1 tablet by mouth every 12 hours. - ergocalciferol 50,000 unit capsule (VITAMIN D2, DRISDOL) TAKE 1 CAPSULE ONCE A WEEK - apixaban (ELIQUIS) 5 mg tab(s) Take 1 tablet by mouth (more content not included)...[facility]08-29-[facility] Telephone encounter Note* Telephone Encounter - Najma Bloom DO - 06/23/2024 5:05 PM EDT Pt wants to know how much a Hba1c is out of pocket Najmastephanie Bloom DO [facility]08-29-2024 Miscellaneous Notes* Telephone Encounter - Najma Bloom DO - 06/23/2024 5:05 PM EDT Pt wants to know how much a Hba1c is out of pocket Najma Bloom DO documented in this encounterWadsworth-Rittman Hospital08-29-2024 History of Present illness Narrative* Najma Bloom DO - 06/23/2024 4:20 PM EDT Transitional Care Management TCM Eligibility Documentation Program: Transitional Care Management Status: Pending (at least 2 unsuccessful call attempts) Start Date: 06/13/2024 Responsible Staff: Osiris Cartwright RN Discharge date: 06/13/2024 (Program start) Date of initial contact: 06/15/2024 Initial contact Target status: No contact; Completed at least 2 attempts within 2 business days post-discharge Summary Discharged from: [facility] Admit Date: 06/06/24 Admitted for: Osteomyelitis Rt Great Toe Criss Devi MA Provider Documentation Yamilka Sharma is a 58 year old male here today for a follow up to recent hospitalization. I have reviewed the patient's hospital course including diagnostic testing performed during this hospitalization, their discharge medications, and my assessment and plan with the patient and any family members present at today's visit. HPI: Pt was hospitalized for right great toe amputation, then rehospitalized for left knee pain and transferred to [facility] for rehab His hospital course per discharge summary is as follows: Yamilka Sharma is a 58 year old male with past medical history of chronic Left Knee Pain, Type 2 DM, HTN, Hyperlipidemia, CAD, Paroxysmal Atrial Fibrillation, CKD Stage IIIb, Non-Hodgkin's Lymphoma, Chronic Medi-port, Depression and Obesity, who presented to the [facility] on 04/27 11/18 with complaints of increased left knee pain after a fall. He was transferred to [facility] for further evaluation. He was treated with kenalog injection to the left knee and he was seen in consultation with ID and podiatry for R great toe infection s/p amputation and completion of antibiotics. He was transferred to [facility] following hospitalization for rehab. Progressed well with PT and OT. Able to walk NWB RLE with walker for 70 ft. Dc home with close follow up PCP, ortho, podiatry. He has torn medial meniscus in his left knee, needs left knee surgery He will see ortho 07/06, Dr. Campos foot doctor on 06/30 He fell and injured his left knee when he got sick from the sepsis from right great toe infection He has to get the Hb1c below 8 before he can get the surgery His blood sugar was 90 today He saw a setter induction heating equipment at the hospital, was given educational information He can have 65 carbs per meal He needs off work time extended until August to have knee surgery and fully recover Review of Systems Constitutional: Negative for chills, diaphoresis, fever, malaise/fatigue and weight loss. HENT: Negative for ear pain and hearing loss. Eyes: Negative for blurred vision and double vision. Respiratory: Negative for cough and shortness of breath. Cardiovascular: Positive for leg swelling (swelling of left knee). Negative for chest pain and palpitations. Gastrointestinal: Negative for constipation, diarrhea and heartburn. Genitourinary: Negative for dysuria and frequency. Musculoskeletal: Negative for back pain, falls, joint pain and myalgias. Right toe pain, left knee pain Skin: Negative for itching and rash. Neurological: Negative for dizziness, weakness and headaches. Endo/Heme/Allergies: Does not bruise/bleed easily. Psychiatric/Behavioral: Negative for depression and substance abuse. The patient does not have insomnia. Vitals BP 122/70 Pulse 109 Temp 36.6 C (97.8 F) Resp 18 Ht 182.9 cm (6') Wt 116.6 kg (257 lb) SpO2 99% BMI 34.86 kg/m Physical Exam Constitutional: Appearance: Normal appearance. He is obese. HENT: Head: Normocephalic and atraumatic. Nose: Nose normal. Mouth/Throat: Mouth: Mucous membranes are moist. Dentition: Normal dentition. Eyes: General: Lids are normal. Extraocular Movements: Extraocular movements intact. Conjunctiva/sclera: Conjunctivae normal. Pupils: Pupils are equal, round, and reactive to light. Neck: Thyroid: No thyroid mass or thyromegaly. Vascular: No carotid bruit. Trachea: Phonation normal. Cardiovascular: Rate and Rhythm: Normal rate and regular rhythm. Heart sounds: Normal heart sounds. No murmur heard. No friction rub. No gallop. Pulmonary: Effort: Pulmonary effort is normal. Breath sounds: Normal breath sounds. No wheezing or rales. Abdominal: General: Bowel sounds are normal. There is no distension. Palpations: Abdomen is soft. There is no mass. Tenderness: There is no abdominal tenderness. Musculoskeletal: General: Swelling (of left knee) and tenderness (over anterior and medial left knee) present. Normal range of motion. Cervical back: Normal range of motion and neck supple. No edema. Comments: Right foot with transmetatarsal amputation of right great toe, wound is healed, light erythema, no drainage Lymphadenopathy: Cervical: No cervical adenopathy. Skin: General: Skin is warm and dry. Findings: No erythema or rash. Nails: There is no clubbing. Neurological: Mental Status: He is alert and oriented to person, place, and time. Cranial Nerves: No cranial nerve deficit. Motor: Motor function is intact. Coordination: Coordination normal. Gait: Gait is intact. Psychiatric: Attention and Perception: Attention normal. Mood and Affect: Mood and affect normal. Speech: Speech normal. Behavior: Behavior normal. Behavior is cooperative. Thought Content: Thought content normal. Cognition and Memory: Cognition and memory normal. Judgment: Judgment normal. ASSESSMENT/PLAN: 1. History of amputation of right great toe (HCC) - ICD9: V49.71, ICD10: Z89.411 (primary diagnosis) Healing normally 2. Acute medial meniscal tear, left, subsequent encounter - ICD9: V58.89, 836.0, ICD10: S83.242D Pt will need left knee surgery Needs to have A1c below 8.0 3. Acute pain of left knee - ICD9: 719.46, ICD10: M25.562 - OXYCODONE 5 MG TABLET 4. Type 2 diabetes mellitus with diabetic polyneuropathy, without long-term current use of insulin ([facility]) - ICD9: 250.60, 357.2, ICD10: E11.42 - GABAPENTIN 600 MG TABLET - SITAGLIPTIN PHOSPHATE 100 MG TABLET 5. Class 1 obesity due to excess calories with serious comorbidity and body mass index (BMI) of 34.0 to 34.9 in adult - ICD9: 278.00, V85.34, ICD10: E66.09, Z68.34 Lifestyle modification recommended Najma Bloom DO June 23, 2024 7:16 AM PDMP website checked and validated. All prescriptions have been APPROPRIATELY filled. No suspiciousactivity was identified. 06/23/2024 by Najma Bloom DO documented in this encounterWadsworth-Rittman [facility]08-29-2024 NoteHNO ID: [id number] Author: NAJMA BLOOM DO Service: ? Author Type: Physician Type: Progress Notes Filed: 07/09/2024 09:33 Note Text: Transitional Care Management TCM Eligibility Documentation Program: Transitional Care Management Status: Pending (at least 2 unsuccessful call attempts) Start Date: 06/13/2024 Responsible Staff: Osiris Cartwright RN Discharge date: 06/13/2024 (Program start) Date of initial contact: 06/15/2024 Initial contact Target status: No contact; Completed at least 2 attempts within 2 business days post-discharge Summary Discharged from: [facility] Admit Date: 06/06/24 Admitted for: Osteomyelitis Rt Great Toe Criss Devi MA Provider Documentation Yamilka Sharma is a 58 year old male here today for a follow up to recent hospitalization. I have reviewed the patient's hospital course including diagnostic testing performed during this hospitalization, their discharge medications, and my assessment and plan with the patient and any family members present at today's visit. HPI: Pt was hospitalized for right great toe amputation, then rehospitalized for left knee pain and transferred to [facility] for rehab His hospital course per discharge summary is as follows: Yamilka Sharma is a 58 year old male with past medical history of chronic Left Knee Pain, Type 2 DM, HTN, Hyperlipidemia, CAD, Paroxysmal Atrial Fibrillation, CKD Stage IIIb, Non-Hodgkin's Lymphoma, Chronic Medi-port, Depression and Obesity, who presented to the [facility] on 05/25/24 with complaints of increased left knee pain after a fall. He was transferred to [facility] for further evaluation. He was treated with kenalog injection to the left knee and he was seen in consultation with ID and podiatry for R great toe infection s/p amputation and completion of antibiotics. He was transferred to [facility] following hospitalization for rehab. Progressed well with PT and OT. Able to walk NWB RLE with walker for 70 ft. Dc home with close follow up PCP, ortho, podiatry. He has torn medial meniscus in his left knee, needs left knee surgery He will see ortho 07/06, Dr. Campos foot doctor on 06/30 He fell and injured his left knee when he got sick from the sepsis from right great toe infection He has to get the Hb1c below 8 before he can get the surgery His blood sugar was 90 today He saw a setter induction heating equipment at the hospital, was given educational information He can have 65 carbs per meal He needs off work time extended until August to have knee surgery and fully recover Review of Systems Constitutional: Negative for chills, diaphoresis, fever, malaise/fatigue and weight loss. HENT: Negative for ear pain and hearing loss. Eyes: Negative for blurred vision and double vision. Respiratory: Negative for cough and shortness of breath. Cardiovascular: Positive for leg swelling (swelling of left knee). Negative for chest pain and palpitations. Gastrointestinal: Negative for constipation, diarrhea and heartburn. Genitourinary: Negative for dysuria and frequency. Musculoskeletal: Negative for back pain, falls, joint pain and myalgias. Right toe pain, left knee pain Skin: Negative for itching and rash. Neurological: Negative for dizziness, weakness and headaches. Endo/Heme/Allergies: Does not bruise/bleed easily. Psychiatric/Behavioral: Negative for depression and substance abuse. The patient does not have insomnia. Vitals BP 122/70 Pulse 109 Temp 36.6 ?C (97.8 ?F) Resp 18 Ht 182.9 cm (6') Wt 116.6 kg (257 lb) SpO2 99% BMI 34.86 kg/m? Physical Exam Constitutional: Appearance: Normal appearance. He is obese. HENT: Head: Normocephalic and atraumatic. Nose: Nose normal. Mouth/Throat: Mouth: Mucous membranes are moist. Dentition: Normal dentition. Eyes: General: Lids are normal. Extraocular Movements: Extraocular movements intact. Conjunctiva/sclera: Conjunctivae normal. Pupils: Pupils are equal, round, and reactive to light. Neck: Thyroid: No thyroid mass or thyromegaly. Vascular: No carotid bruit. Trachea: Phonation normal. Cardiovascular: Rate and Rhythm: Normal rate and regular rhythm. Heart sounds: Normal heart sounds. No murmur heard. No friction rub. No gallop. Pulmonary: Effort: Pulmonary effort is normal. Breath sounds: Normal breath sounds. No wheezing or rales. Abdominal: General: Bowel sounds are normal. There is no distension. Palpations: Abdomen is soft. There is no mass. Tenderness: There is no abdominal tenderness. Musculoskeletal: General: Swelling (of left knee) and tenderness (over anterior and medial left knee) present. Normal range of motion. Cervical back: Normal range of motion and neck supple. No edema. Comments: Right foot with transmetatarsal amputation of right great toe, wound is healed, light erythema, no drainage Lymphadenopathy: Cervical: (more content not included)...[facility]08-29-2024 NoteHNO ID: [id number] Author: OSIRIS CARTWRIGHT RN Service: ? Author Type: Registered Nurse Type: Progress Notes Filed: 07/25/2024 03:04 Note Text: TRANSITIONAL CARE MANAGEMENT (TCM) COMMUNITY MONITORING PROGRAM - [facility] Provider Action/FYI: Refills - Lantus, Gabapentin, Farxiga, Meds peneded TCM appointment with PCP - 06/23/24 SUMMARY: Pt discharged from [facility] on 06/13/24. Pt discharged from [facility] on 06/06/24. Admitted for: Osteomyelitis of the great toe on R Meniscus tear w/ osteoarthritis L knee s/p Surgical debridement of the R great toe w/ amputation Patient seen Inpatient JOSHUA Visit? N/A. Patient seen ICARE Program? N/A. Contact made with patient: Yes Hi my name is Osiris Cartwright RN and I am calling from the [facility] on behalf of your PCP, Najma Bloom, DO I understand you were recently in the hospital so I am calling to check in with you to ensure you are feeling well now that you?re home. Do you mind if I ask you a few questions related to your hospital stay and well-being Yes Contact with patient post discharge, spoke to patient. Patient identified by name and . Do you feel your health is BETTER, WORSE, or the SAME since leaving the hospital? Better Pt is doing really, really well. States that he taught himself to walk w/ a cane. Pt states that he is walking pretty good. He feels that everything is doing pretty good. He is driving. His incision is perfect. States that he was told it looks really good. He no longer has to wrap his foot. He wears a band-aid, his sock and the walking shoe. He is not back to work yet, though he really wants to try to get back to work. States that he needs more OR. Per pt the plan is OR on his L knee. Today, he may can tomatoes and homemade sauce. States that he has corn the needs picked, but he isn't sure who can help him. [facility] was D/C'd on 06/17/24. ACTION TAKEN: Patient indicated symptoms are better or same, no action required. Continue outreach. N/A MEDICATIONS: Many patients have questions or concerns about their medications once they are home. Do you have any questions about taking your medications or which medication you should be on? No Do you need any medication refills at this time, including any of the medications you might take only when needed? Yes Pt is requesting refills - Lantus, Gabapentin and Farxiga. Confirmed that pt is taking these meds as ordered. Meds pended for PCP. ACTION TAKEN: Patient needs refill(s) - Routed to PCP, indicated the medications and preferred pharmacy in the FYI box. For RNs or Pharmacy completing outreach ONLY, was a medication review completed? No - Pt prefers to review his meds w/ his PCP at his appointment today. He is running around and doesn't have time right now. SOCIAL: We would like to make sure you have what you need so that your basics needs are met - including your personal safety. HEALTH LEADS SCREENING TOOL QUESTIONS: Do you often feel you lack companionship? No Do you ever need help reading or understanding hospital materials? No In the last 12 months, have you changed how you take medications to save money? Yes In the past 12 months, has lack of transportation kept you from medical appointments, work or getting things you need like food, or supplies? No In the last 12 months, did you ever eat less than you felt you should because there wasn't enough money for food? No During the winter, do you anticipate having a problem paying your heating bill? Yes In the next 2 months, are you worried you might not have stable housing? No Would you like to speak with a social work field marketing team leader to help give you support for any of these needs? No Pt is having trouble w/ his finances right now, since he's not working. He normally makes over 6 figures. Pt went from $1400/wk to $480/wk. He is having trouble keeping up his meds and bills. States that he sold a shotgun and some silver. Per pt, he has made too much money this year to get any financial assistance. Declined to speak to a SW at this time. It can be normal to feel anxious or down during a time like this. Would you like to talk to a mental health professional about how you have been feeling? No ACTION TAKEN: No action taken DISCHARGE INTRUCTIONS: Your discharge instructions / After Visit Summary (AVS) are important in guiding you through the recovery process. Do you have any questions related to your discharge instructions? No Do you have all the necessary equipment and supplies at home? Yes ACTION TAKEN: No action required WRAP AROUND SERVICES: Child Guidance Counselor Referral - Declined Patient educated on importance of primary care provider follow up visit as well as specialty provider follow up visits as indicated. Inform the patient that if they have any questions or concerns prior to that appointment, to call their Primary Care Provider 's (more content not included)...[facility]08-29-[facility] History of Present illness Narrative* Osiris Cartwright RN - 06/23/2024 9:32 AM EDT TRANSITIONAL CARE MANAGEMENT (TCM) COMMUNITY MONITORING PROGRAM - [place] [facility] Provider Action/FYI: Refills - Lantus, Gabapentin, Farxiga, Meds peneded\ TCM appointment with PCP - 06/23/24 SUMMARY: Pt discharged from [facility] on 06/13/24. Pt discharged from [facility] on 06/06/24. Admitted for: Osteomyelitis of the great toe on R Meniscus tear w/ osteoarthritis L knee s/p Surgical debridement of the R great toe w/ amputation Patient seen Inpatient JOSHUA Visit? N/A. Patient seen ICARE Program? N/A. Contact made with patient: Yes Hi my name is Osiris Cartwright, RN and I am calling from the [facility] on behalf of your PCP, Najma Bloom, DO I understand you were recently in the hospital so I am calling to check in with you to ensure you are feeling well now that you re home. Do you mind if I ask you a few questions related to your hospital stay and well-being Yes Contact with patient post discharge, spoke to patient. Patient identified by name and . Do you feel your health is BETTER, WORSE, or the SAME since leaving the hospital? Better Pt is doing really, really well. States that he taught himself to walk w/ a cane. Pt states that he is walking pretty good. He feels that everything is doing pretty good. He is driving. His incision is perfect. States that he was told it looks really good. He no longer has to wrap his foot. He wears a band-aid, his sock and the walking shoe. He is not back to work yet, though he really wants to try to get back to work. States that he needs more OR. Per pt the plan is OR on his L knee. Today, he may can tomatoes and homemade sauce. States that he has corn the needs picked, but he isn't sure who can help him. [facility] was D/C'd on 06/17/24. ACTION TAKEN: Patient indicated symptoms are better or same, no action required. Continue outreach. N/A MEDICATIONS: Many patients have questions or concerns about their medications once they are home. Do you have any questions about taking your medications or which medication you should be on? No Do you need any medication refills at this time, including any of the medications you might take only when needed? Yes Pt is requesting refills - Lantus, Gabapentin and Farxiga. Confirmed that pt is taking these meds as ordered. Meds pended for PCP. ACTION TAKEN: Patient needs refill(s) - Routed to PCP, indicated the medications and preferred pharmacy in the FYI box. For RNs or Pharmacy completing outreach ONLY, was a medication review completed? No - Pt prefers toreview his meds w/ his PCP at his appointment today. He is running around and doesn't have time right now. SOCIAL: We would like to make sure you have what you need so that your basics needs are met - including your personal safety. HEALTH LEADS SCREENING TOOL QUESTIONS: Do you often feel you lack companionship? No Do you ever need help reading or understanding hospital materials? No In the last 12 months, have you changed how you take medications to save money? Yes In the past 12 months, has lack of transportation kept you from medical appointments, work or getting things you need like food, or supplies? No In the last 12 months, did you ever eat less than you felt you should because there wasn't enough money for food? No During the winter, do you anticipate having a problem paying your heating bill? Yes In the next 2 months, are you worried you might not have stable housing? No Would you like to speak with a social work field marketing team leader to help give you support for any of these needs? No Pt is having trouble w/ his finances right now, since he's not working. He normally makes over 6 figures. Pt went from $1400/wk to $480/wk. He is having trouble keeping up his meds and bills. States that he sold a shotgun and some silver. Per pt, he has made too much money this year to get any financial assistance. Declined to speak to a SW at this time. It can be normal to feel anxious or down during a time like this. Would you like to talk to a mental health professional about how you have been feeling? No ACTION TAKEN: No action taken DISCHARGE INTRUCTIONS: Your discharge instructions / After Visit Summary (AVS) are important in guiding you through the recovery process. Do you have any questions related to your discharge instructions? No Do you have all the necessary equipment and supplies at home? Yes ACTION TAKEN: No action required WRAP AROUND SERVICES: Child Guidance Counselor Referral - Declined Patient educated on importance of primary care provider follow up visit as well as specialty provider follow up visits as indicated. Inform the patient that if they have any questions or concerns prior to that appointment, to call their Primary Care Provider 's office right away. Primary care provider first education provided. I would like to help you schedule a hospital follow-up virtual or telephone visit with your PCP. ACTION TAKEN: [facility] Primary Care Provider Visit Scheduled: Pt is scheduled to see his PCP today at 4p. He has an Ortho appointment on 9/11/14. Your doctor would like us to remind you of the recommendations regarding the coronavirus (Covid19) outbreak: Avoid public places as much as possible. Avoid close contact (within 6 feet) with others you don't live with, especially if they are sick. Stay home if you are sick. Wash your hands regularly for at least 20 seconds with soap and water. Wear a cloth mask in public places to help reduce community spread. Do not go to your Doctor's office unless instructed to do so. For any non- emergency symptoms, call your Doctor's office to get instructions on how to manage (we might recommend a telephone or virtualvisit). For emergency symptoms, proceed to Emergency Department as usual but inform them of cough and fever symptoms LU if present (or call on the way if possible). documented in this encounterWadsworth-[facility]man [facility]08-29-[facility]24 NotePatient Outreach (AGACM) YAMILKA SHARMA ([id number]) 1965 M Date Time Provider Department 06/23/24 OSIRIS CARTWRIGHT [facility] During your visit today, we recorded the following information about you: Osiris Cartwright RN 07/25/2024 3:04 AM Signed TRANSITIONAL CARE MANAGEMENT (TCM) COMMUNITY MONITORING PROGRAM - [facility] Provider Action/FYI: Refills - Lantus, Gabapentin, Farxiga, Meds peneded TCM appointment with PCP - 06/23/24 SUMMARY: Pt discharged from [facility] on 06/13/24. Pt discharged from [facility] on 06/06/24. Admitted for: Osteomyelitis of the great toe on R Meniscus tear w/ osteoarthritis L knee s/p Surgical debridement of the R great toe w/ amputation Patient seen Inpatient JOSHUA Visit? N/A. Patient seen ICARE Program? N/A. Contact made with patient: Yes Hi my name is Osiris Roberth, RN and I am calling from the [facility] on behalf of your PCP, Najma Bloom, DO I understand you were recently in the hospital so I am calling to check in with you to ensure you are feeling well now that you?re home. Do you mind if I ask you a few questions related to your hospital stay and well-being Yes Contact with patient post discharge, spoke to patient. Patient identified by name and . Do you feel your health is BETTER, WORSE, or the SAME since leaving the hospital? Better Pt is doing really, really well. States that he taught himself to walk w/ a cane. Pt states that he is walking pretty good. He feels that everything is doing pretty good. He is driving. His incision is perfect. States that he was told it looks really good. He no longer has to wrap his foot. He wears a band-aid, his sock and the walking shoe. He is not back to work yet, though he really wants to try to get back to work. States that he needs more OR. Per pt the plan is OR on his L knee. Today, he may can tomatoes and homemade sauce. States that he has corn the needs picked, but he isn't sure who can help him. [facility] was D/C'd on 06/17/24. ACTION TAKEN: Patient indicated symptoms are better or same, no action required. Continue outreach. N/A MEDICATIONS: Many patients have questions or concerns about their medications once they are home. Do you have any questions about taking your medications or which medication you should be on? No Do you need any medication refills at this time, including any of the medications you might take only when needed? Yes Pt is requesting refills - Lantus, Gabapentin and Farxiga. Confirmed that pt is taking these meds as ordered. Meds pended for PCP. ACTION TAKEN: Patient needs refill(s) - Routed to PCP, indicated the medications and preferred pharmacy in the FYI box. For RNs or Pharmacy completing outreach ONLY, was a medication review completed? No - Pt prefers to review his meds w/ his PCP at his appointment today. He is running around and doesn't have time right now. SOCIAL: We would like to make sure you have what you need so that your basics needs are met - including your personal safety. HEALTH LEADS SCREENING TOOL QUESTIONS: Do you often feel you lack companionship? No Do you ever need help reading or understanding hospital materials? No In the last 12 months, have you changed how you take medications to save money? Yes In the past 12 months, has lack of transportation kept you from medical appointments, work or getting things you need like food, or supplies? No In the last 12 months, did you ever eat less than you felt you should because there wasn't enough money for food? No During the winter, do you anticipate having a problem paying your heating bill? Yes In the next 2 months, are you worried you might not have stable housing? No Would you like to speak with a social work field marketing team leader to help give you support for any of these needs? No Pt is having trouble w/ his finances right now, since he's not working. He normally makes over 6 figures. Pt went from $1400/wk to $480/wk. He is having trouble keeping up his meds and bills. States that he sold a shotgun and some silver. Per pt, he has made too much money this year to get any financial assistance. Declined to speak to a SW at this time. It can be normal to feel anxious or down during a time like this. Would you like to talk to a mental health professional about how you have been feeling? No ACTION TAKEN: No action taken DISCHARGE INTRUCTIONS: Your discharge instructions / After Visit Summary (AVS) are important in guiding you through the recovery process. Do you have any questions related to your discharge instructions? No Do you have all the necessary equipment and supplies at home? Yes ACTION TAKEN: No action required WRAP AROUND SERVICES: Child Guidance Counselor Referral - Declined Patient educated on importance of primary care provider follow up visit as well a (more content not included)...[facility]08-28-2024 NoteHNO ID: [id number] Author: MELISSA CRUZ RN Service: ? Author Type: Registered Nurse Type: Progress Notes Filed: 06/22/2024 10:54 Note Text: Patient is here for IVAD port flush/blood draw per [facility] [place] protocol. IVAD is located in right upper chest. Site cleansed with Chloraprep IVAD accessed with a #20 gauge 3/4 non-coring Gripper needle Flush with 5cc's Normal Saline. Blood Return: Good. 10 cc's blood aspirated and discarded. Blood drawn for CBC, CMP, and see EPIC lab. Flushed with: 20 ml Normal Saline. Non-coring needle removed. Paper tape applied to puncture site. Site negative for redness, edema or tenderness. Patient tolerated procedure well.[facility] 06-22-2024 History of Present illness Narrative* Melissa Cruz RN - 06/22/2024 7:40 AM EDT Patient is here for IVAD port flush/blood draw per [facility] [place] protocol. IVAD is located in right upper chest. Site cleansed with Chloraprep IVAD accessed with a #20 gauge 3/4 non-coring Gripper needle Flush with 5cc's Normal Saline. Blood Return: Good. 10 cc's blood aspirated and discarded. Blood drawn for CBC, CMP, and see EPIC lab. Flushed with: 20 ml Normal Saline. Non-coring needle removed. Paper tape applied to puncture site. Site negative for redness, edema or tenderness. Patient tolerated procedure well. documented in this encounterWadsworth-[facility]man [facility]08-26-2024 Telephone encounter Note * Telephone Encounter - Cordelia Floyd MA - 06/20/2024 10:44 AM EDT Paitent aware meds sent in. Cordelia Floyd MA [facility]08-26-2024 Miscellaneous Notes* Telephone Encounter - Cordelia Floyd MA - 06/20/2024 10:44 AM EDT Paitent aware meds sent in. Cordelia Floyd MA documented in this encounterWadsworth-Rittman Hospital08-23-2024 Telephone encounter Note * Telephone Encounter - Monie Perez RN - 06/17/2024 1:[address] Bloom: You potential home health patient was not admitted to home health as his wound is healed, he is understanding of his medications, medical plan, and he has all medical equipment available. He is also driving and states, he will likely need us when he has his knee surgery. Thank you for your referral. Monie Perez RN [facility] Work Phone: [phone] 537-650108-23-2024 Miscellaneous Notes* Telephone Encounter - Monie Perez RN - 06/17/2024 1:[address] Bloom: You potential home health patient was not admitted to home health as his wound is healed, he is understanding of his medications, medical plan, and he has all medical equipment available. He is also driving and states, he will likely need us when he has his knee surgery. Thank you for your referral. Monie Perez RN [facility] documented in this encounterWadsworth-Rittman Hospital08-23-2024 Miscellaneous Notes* HH CARE COORDINATION - [facility] RN - 06/17/2024 1:11 PM EDT Met with pt and spouse in pt's home. After explaining our services and homebound requirements, pt states that he does not feel that he has any current skilled needs. He thought that home health wouldcome out for 1 vs to make sure that he had all needed equipment. He states that he has a stair lift, shower bench, grab bars, raised toilet seat and is able to drive himself to his memdical appts. He is ambulating with a cane and has a HEP from [employer]. He declines our services. documented in this encounterWadsworth-Rittman Hospital08-23-2024 Patient's home Note* HH CARE COORDINATION - [facility] RN - 06/17/2024 1:11 PM EDT Met with pt and spouse in pt's home. After explaining our services and homebound requirements, pt states that he does not feel that he has any current skilled needs. He thought that home health wouldcome out for 1 vs to make sure that he had all needed equipment. He states that he has a stair lift, shower bench, grab bars, raised toilet seat and is able to drive himself to his memdical appts. He is ambulating with a cane and has a HEP from [employer]. He declines our services. T [facility] Work Phone: [phone]) 451-110108-23-2024 Telephone encounter Note* Telephone Encounter - Sonia Coffey MA - 06/17/2024 11:37 AM EDT Patient requesting refills as follows: Last Office Visit 02/18/24 06/23/24. Last Refill n/a. Requested Prescriptions Pending Prescriptions Disp Refills insulin glargine (LANTUS SOLOSTAR U-100 INSULIN) 100 unit/mL (3 mL) Sig: Inject 30 Units subcutaneously every morning. Please review and advise. Sonia Coffey MA [facility]08-23-2024 Miscellaneous Notes* Telephone Encounter - Sonia Coffey MA - 06/17/2024 11:37 AM EDT Patient requesting refills as follows: Last Office Visit 02/18/24 NOV 06/23/24. Last Refill n/a. Requested Prescriptions Pending Prescriptions Disp Refills insulin glargine (LANTUS SOLOSTAR U-100 INSULIN) 100 unit/mL (3 mL) Sig: Inject 30 Units subcutaneously every morning. Please review and advise. Sonia Coffey MA documented in this encounterWadsworth-Rittman Hospital08-21-2024 Telephone encounter Note * Telephone Encounter - Osiris Carbajal RN - 06/15/2024 4:01 PM EDT Patient not admitted to [facility] services today. SN unable to reach patient. Thank you, Osiris Carbajal RN [facility] Work Phone: 1(508) 676-639708-21-2024 Miscellaneous Notes* Telephone Encounter - Osiris Carbajal RN - 06/15/2024 4:01 PM EDT Patient not admitted to [facility] services today. SN unable to reach patient. Thank you, Osiris Carbajal RN documented in this encounterWadsworth-Rittman Hospital08-21-2024 Telephone encounter Note * Telephone Encounter - Najma Bloom DO - 06/15/2024 2:20 PM EDT I agree with date pt requests Najma Bloom DO [facility]08-21-2024 Miscellaneous Notes* Telephone Encounter - Najma Bloom DO - 06/15/2024 2:20 PM EDT I agree with date pt requests Najma lBoom DO * Telephone Encounter - Tanna Mansfield LPN - 06/15/2024 12:17 PM EDT Najma Bloom DO Patient declined initially planned visit on 06/15/24. [facility] is planning on initiating services on 06/17/24. Please let us know if you are agreeable to this date. If we do not hear back, we will continue withthis planned date. Thank you, Tanna Mansfield LPN documented in this encounterWadsworth-Rittman Hospital08-21-2024 Miscellaneous Notes* Care Plan - Osiris Carbajal RN - 06/15/2024 1:04 PM EDT Unable to reach patient. documented in this encounterWadsworth-Rittman Hospital08-21-2024 Plan of care note* Care Plan - Osiris Carbajal RN - 06/15/2024 1:04 PM EDT Unable to reach patient. [facility] Work Phone: [phone] 759-126908-21-2024 Telephone encounter Note* Telephone Encounter - Tanna Mansfield LPN - 06/15/2024 12:17 PM EDT Najma Bloom, Patient declined initially planned visit on 06/15/24. [facility] is planning on initiating services on 06/17/24. Please let us know if you are agreeable to this date. If we do not hear back, we will continue withthis planned date. Thank you, Tanna Mansfield LPN [facility] Work Phone: 1(374) 726-368808-21-2024 Instructions* Patient Instructions* Osiris Cartwright RN - 06/15/2024 10:14 AM EDT documented in this encounterWadsworth-Rittman Hospital08-21-2024 NoteHNO ID: [id number] Author: JENNIFER MICHELE, DO Service: ? Author Type: Physician Type: Progress Notes Filed: 06/15/2024 09:51 Note Text: Reason for Visit/Chief Complaint Yamilka Sharma is a 58 year old male who presents today for a new evaluation of following complaint: Patient presents with: Left Knee - Knee Pain, New History of Present Illness: PAIN EVALUATION 06/15/2024 0925 Pain Level: 5 Pain Location: Knee-Left Description: Sore;Aching;Sharp;Stabbing Duration Amount of Time: 1 Duration Units: Months Frequency: Continuous Intervention/Comfort measure: -- predisone taper - no relief, cortisone injection HPI: Yamilka Sharma is a 58 year old male presenting today with left knee pain. Patient was well until about 1 month ago when his knee gave out and he sustained a fall. Patient states he is in moderate pain. Patient has been minimal- no weight bearing. Using cane for ambulation. Pain history is noted as above. Denies calf pain, numbness, tingling, fever, chills or other constitutional symptoms. Previous Treatments: Ice: No Heat: No Brace: No NSAIDs: Yes, oxycodone Injections: Yes, 10 days ago, no relief Surgeries: No Physical Therapy: No Review of Systems: Patient did not have, and does not currently have, any weight loss, malaise, fever, chills, headache, chest pain, chest pressure, palpitations, cough, shortness of breath, orthopnea, paroxsymal nocturnal dyspnea, nausea, vomiting, diarrhea, constipation, melena, hematochezia, urinary difficulties, prolonged bleeding, easily bruising, heat or cold intolerance, new onset joint pain or swelling, new onset extremity weakness or numbness, new onset auditory or visual disturbances, lightheadedness, dizziness, partial loss of consciousness or full loss of consciousness. Current Outpatient Medications on File Prior to Visit Medication Sig oxyCODONE IR (ROXICODONE) 5 mg immediate release tablet Take 1-2 tablets by mouth every 8 hours as needed for pain for up to 3 days. insulin glargine (LANTUS SOLOSTAR U-100 INSULIN) 100 unit/mL (3 mL) Inject 30 Units subcutaneously every morning. metFORMIN (GLUCOPHAGE) 500 mg tablet Take 500 mg by mouth two times a day with meals. glimepiride (AMARYL) 4 mg tablet Take 4 mg by mouth two times a day with meals. furosemide (LASIX) 40 mg tablet Take 1 tablet by mouth once daily. dilTIAZem CD (CARDIZEM CD, CARTIA XT) 120 mg 24 hr capsule Take 1 capsule by mouth once daily. lisinopril (ZESTRIL) 5 mg tablet Take 1 tablet by mouth once daily. acetaminophen (TYLENOL) 325 mg tablet Take 2 tablets by mouth every 6 hours as needed for pain. polyethylene glycol 3350 17 gram packet Take 1 Packet by mouth once daily. Dissolve dose in 4 - 8 ounces of liquid and take as directed. lancets ([employer]UCH DELICA PLUS LANCET) 33 gauge Use with blood glucose test three times a day. Insulin Dep? Yes blood sugar diagnostic (ONETOUCH VERIO TEST STRIPS) test strip Use with blood glucose test three times a day. Insulin Dep? Yes FARXIGA 10 mg tablet TAKE 1 TABLET DAILY WITH BREAKFAST DULoxetine (CYMBALTA) 60 mg capsule Take 1 capsule by mouth two times a day. rosuvastatin (CRESTOR) 40 mg tablet take 1 tablet daily lidocaine-prilocaine (EMLA) 2.5-2.5 % cream APPLY TO AFFECTED AREA NEEDED PRIOR TO CHEMOTHERAPY semaglutide (OZEMPIC) 1 mg/dose (4 mg/3 mL) pen Inject 1 mg subcutaneously one time a week. blood sugar diagnostic (ONETOUCH VERIO TEST STRIPS) test strip 1 Strip two times a day. Use with blood glucose test two times a day. Insulin Dep? No SITagliptin phosphate (JANUVIA) 100 mg tablet Take 1 tablet by mouth once daily. ergocalciferol 50,000 unit capsule (VITAMIN D2, DRISDOL) TAKE 1 CAPSULE ONCE A WEEK apixaban (ELIQUIS) 5 mg tab(s) Take 1 tablet by mouth two times a day. sodium bicarbonate 650 mg tablet TAKE 2 TABLETS TWICE A DAY allopurinol (ZYLOPRIM) 100 mg tablet Take 1 tablet by mouth twice daily. Blood-Glucose Meter 1 Each three times daily. Please match the test strips and lancets sildenafil (REVATIO) 20 mg tablet Take 3-5 tablets by mouth once daily as needed. albuterol HFA (PROVENTIL HFA, VENTOLIN HFA) 90 mcg/actuation inhaler USE 2 INHALATIONS INSTRUCTED EVERY 4 HOURS NEEDED FOR WHEEZING/SHORTNESS OF BREATH gabapentin (NEURONTIN) 600 mg tablet Take 1 tablet by mouth three times a day for 90 days. metoprolol tartrate, short acting, (LOPRESSOR) 25 mg tablet Take 1 tablet by mouth every 12 hours. No current facility-administered medications on file prior to visit. ALLERGIES Allergen Reactions Aspartame Intolerance Severe headache Bactrim [Sulfametho* Hives, Intolerance Reaction: gas Sensitivity: Intolerance. Sensitivity: Intolerance Biaxin [Clarithromy* Unknown Indigestion/gas Influenza Vaccine T* Unknown Flu Monosodium Glutamat* Intolerance Severe headache Pantoprazole Diarrhea Sulfa (Sulfonamide * Rash, Hives Cli (more content not included)...[facility]08-21-2024 History of Present illness Narrative* Jennifer Michele DO - 06/15/2024 9:28 AM EDT Images from the original note were not included. Reason for Visit/Chief Complaint Yamilka Sharma is a 58 year old male who presents today for a new evaluation of following complaint: Patient presents with: Left Knee - Knee Pain, New History of Present Illness: PAIN EVALUATION 06/15/2024 0925 Pain Level: 5 Pain Location: Knee-Left Description: Sore;Aching;Sharp;Stabbing Duration Amount of Time: 1 Duration Units: Months Frequency: Continuous Intervention/Comfort measure: -- predisone taper - no relief, cortisone injection HPI: Yamilka Sharma is a 58 year old male presenting today with left knee pain. Patient was welluntil about 1 month ago when his knee gave out and he sustained a fall. Patient states he is in moderate pain. Patient has been minimal- no weight bearing. Using cane for ambulation. Pain history is noted as above. Denies calf pain, numbness, tingling, fever, chills or other constitutional symptoms. Previous Treatments: Ice: No Heat: No Brace: No NSAIDs: Yes, oxycodone Injections: Yes, 10 days ago, no relief Surgeries: No Physical Therapy: No Review of Systems: Patient did not have, and does not currently have, any weight loss, malaise, fever, chills, headache, chest pain, chest pressure, palpitations, cough, shortness of breath, orthopnea, paroxsymal nocturnal dyspnea, nausea, vomiting, diarrhea, constipation, melena, hematochezia, urinary difficulties, prolonged bleeding, easily bruising, heat or cold intolerance, new onset joint pain or swelling, newonset extremity weakness or numbness, new onset auditory or visual disturbances, lightheadedness, dizziness, partial loss of consciousness or full loss of consciousness. Current Outpatient Medications on File Prior to Visit Medication Sig oxyCODONE IR (ROXICODONE) 5 mg immediate release tablet Take 1-2 tablets by mouth every 8 hours as needed for pain for up to 3 days. insulin glargine (LANTUS SOLOSTAR U-100 INSULIN) 100 unit/mL (3 mL) Inject 30 Units subcutaneously every morning. metFORMIN (GLUCOPHAGE) 500 mg tablet Take 500 mg by mouth two times a day with meals. glimepiride (AMARYL) 4 mg tablet Take 4 mg by mouth two times a day with meals. furosemide (LASIX) 40 mg tablet Take 1 tablet by mouth once daily. dilTIAZem CD (CARDIZEM CD, CARTIA XT) 120 mg 24 hr capsule Take 1 capsule by mouth once daily. lisinopril (ZESTRIL) 5 mg tablet Take 1 tablet by mouth once daily. acetaminophen (TYLENOL) 325 mg tablet Take 2 tablets by mouth every 6 hours as needed for pain. polyethylene glycol 3350 17 gram packet Take 1 Packet by mouth once daily. Dissolve dose in 4 - 8 ounces of liquid and take as directed. lancets ([employer] DEL[employer]US LANCET) 33 gauge Use with blood glucose test three times a day. Insulin Dep? Yes blood sugar diagnostic (ONETOUCH VERIO TEST STRIPS) test strip Use with blood glucose test three times a day. Insulin Dep? Yes FARXIGA 10 mg tablet TAKE 1 TABLET DAILY WITH BREAKFAST DULoxetine (CYMBALTA) 60 mg capsule Take 1 capsule by mouth two times a day. rosuvastatin (CRESTOR) 40 mg tablet take 1 tablet daily lidocaine-prilocaine (EMLA) 2.5-2.5 % cream APPLY TO AFFECTED AREA NEEDED PRIOR TO CHEMOTHERAPY semaglutide (OZEMPIC) 1 mg/dose (4 mg/3 mL) pen Inject 1 mg subcutaneously one time a week. blood sugar diagnostic (ONETOUCH VERIO TEST STRIPS) test strip 1 Strip two times a day. Use with blood glucose test two times a day. Insulin Dep? No SITagliptin phosphate (JANUVIA) 100 mg tablet Take 1 tablet by mouth once daily. ergocalciferol 50,000 unit capsule (VITAMIN D2, DRISDOL) TAKE 1 CAPSULE ONCE A WEEK apixaban (ELIQUIS) 5 mg tab(s) Take 1 tablet by mouth two times a day. sodium bicarbonate 650 mg tablet TAKE 2 TABLETS TWICE A DAY allopurinol (ZYLOPRIM) 100 mg tablet Take 1 tablet by mouth twice daily. Blood-Glucose Meter 1 Each three times daily. Please match the test strips and lancets sildenafil (REVATIO) 20 mg tablet Take 3-5 tablets by mouth once daily as needed. albuterol HFA (PROVENTIL HFA, VENTOLIN HFA) 90 mcg/actuation inhaler USE 2 INHALATIONS INSTRUCTED EVERY 4 HOURS NEEDED FOR WHEEZING/SHORTNESS OF BREATH gabapentin (NEURONTIN) 600 mg tablet Take 1 tablet by mouth three times a day for 90 days. metoprolol tartrate, short acting, (LOPRESSOR) 25 mg tablet Take 1 tablet by mouth every 12 hours. No current facility-administered medications on file prior to visit. ALLERGIES Allergen Reactions Aspartame Intolerance Severe headache Bactrim [Sulfametho* Hives, Intolerance Reaction: gas Sensitivity: Intolerance. Sensitivity: Intolerance Biaxin [Clarithromy* Unknown Indigestion/gas Influenza Vaccine T* Unknown Flu Monosodium Glutamat* Intolerance Severe headache Pantoprazole Diarrhea Sulfa (Sulfonamide * Rash, Hives Clindamycin Hcl Diarrhea, GI Upset, Vomiting Reaction: Nausea/vomiting/diarrhea Other Reaction: stomach cramps Sensitivity: Intolerance Physical Exam: Vitals: There were no vitals taken for this visit. Psych: Pleasant, good affect and mood General Appearance: Well appearing, alert, in no acute distress, well-hydrated, well nourished.. Skin: Skin color, texture, turgor normal, no suspicious rashes or lesions. Peripheral Pulses: Normal. Neurologic: Gait normal. Reflexes normal and symmetric. Sensation grossly intact.. Lymph Nodes: No cervical lymphadenopathy, No supraclavicular lymphadenopathy, No axillary lymphadenopathy., and No inguinal lymphadenopathy.. Respiratory: No recent pulmonary infection, hemoptysis, chronic cough, or shortness of breath at rest Rheumatologic: Joint deformities: left knee pain Ortho Exam Imaging: Last XR Knee - Impression Only XR KNEE INJURY 4V AP/LAT/OBLS LEFT Exam End: 05/11/2024 7:50 PM (Final result) Impression: IMPRESSION: Portable chest: No active disease. Stable. Right knee: Negative. Grinder: JOSÉ MANUEL ... Last MRI Knee - Impression Only MRI KNEE WO IVCON LEFT Exam End: 05/26/2024 3:29 PM (Final result) Impression: IMPRESSION: No fracture. Medial meniscal tear. Large joint effusion with mild synovitis. Nonspecific mild edema like along the fascial planes of the distal quadriceps and proximal posterior compartment calf musculature which may ... Assessment and Plan: Impression: Encounter Diagnosis ICD-10-CM 1. Chronic pain of left knee M25.562 G89.29 2. Acute pain of left knee M25.562 RHEUMATOID FACTOR CCP ANTIBODY IGG CODY PANEL BLOOD SCRN SEDIMENTATION RATE, WESTERGREN C-REACTIVE PROTEIN FILOMENA DNA AUTOABS, DOUBLE STRANDED CREATINE KINASE/CK URIC ACID LYME AB LATE >30 DAYS SYMPTOMS 3. Inflammatory arthritis M19.90 Plan: Chart reviewed Today, in detail, through a thorough evaluation, we discussed possible etiologies of pain and our plans for further diagnostic and therapeutic interventions. We discussed strategies for decreasing pain and improving strength, stability and motion. Patient's questions were answered in detailed. Patient verbalizes understanding and agrees with the treatment plan as discussed. Hba1c pending this , will await Refused aspiration today Would like to try again at next visit Complicated patient medically, need to get repeat aspiration to see cell count and also had recent podiatry surgery doesn even have his stitches out yet and was done for infection; Labs today Follow up in 3 weeks and by that time labs should be completed Needs clearance by podiatry, medicine, etc Discussed all of the above with patient as effusion not isolated generated by men tear Patient aware and in agreement of plan. All questions answered. Jennifer Michele D.O. M.P.H. documented in this encounterWadsworth-[facility]08-21-2024 NoteHNO ID: [id number] Author: OSIRIS CARTWRIGHT RN Service: ? Author Type: Registered Nurse Type: Progress Notes Filed: 06/15/2024 09:09 Note Text: TRANSITIONAL CARE MANAGEMENT (TCM) COMMUNITY MONITORING PROGRAM - [place] SUMMARY: Pt discharged from [facility] on 06/13/24. Pt discharged from [facility] on 06/06/24. Admitted for: Osteomyelitis of the great toe on the R Meniscus tear w/ osteoarthritis, L knee s/p Surgical debridement of the R great toe w/ amputation MCKAY Patient seen Inpatient JOSHUA Visit? N/A. Patient seen ICARE Program? N/A. Contact made with patient: Yes Hi my name is Osiris Cartwright RN and I am calling from the [facility] on behalf of your PCP, Najma Bloom, DO I understand you were recently in the hospital so I am calling to check in with you to ensure you are feeling well now that you?re home. Do you mind if I ask you a few questions related to your hospital stay and well-being Yes - However, now is not a good time, next outreach attempt will be on business day of the preference of the patient Pt is okay. States that he is getting around. He is on his way to see Ortho and prefers a call back tomorrow. Outreach [facility]08-21-2024 History of Present illness Narrative* Osiris Cartwright RN - 06/15/2024 8:51 AM EDT TRANSITIONAL CARE MANAGEMENT (TCM) COMMUNITY MONITORING PROGRAM - [place] SUMMARY: Pt discharged from [facility] on 06/13/24. Pt discharged from [facility] on 06/06/24. Admitted for: Osteomyelitis of the great toe on the R Meniscus tear w/ osteoarthritis, L knee s/p Surgical debridement of the R great toe w/ amputation MCKAY Patient seen Inpatient JOSHUA Visit? N/A. Patient seen ICARE Program? N/A. Contact made with patient: Yes Hi my name is Osiris Cartwright RN and I am calling from the [facility] on behalf of your PCP, Najma Bloom, DO I understand you were recently in the hospital so I am calling to check in with you to ensure you are feeling well now that you re home. Do you mind if I ask you a few questions related to your hospital stay and well-being Yes - However, now is not a good time, next outreach attempt will be on business day of the preference of the patient Pt is okay. States that he is getting around. He is on his way to see Ortho and prefers a call back tomorrow. Outreach Ended documented in this encounterWadsworth-Rittman [facility]08-21-2024 NotePatient Outreach (AGACM) YAMILKA SHARMA ([id number]) 1965 M Date Time Provider Department 06/15/24 OSIRIS CARTWRIGHT [facility] During your visit today, we recorded the following information about you: Osiris Cartwright RN 06/15/2024 9:09 AM Signed TRANSITIONAL CARE MANAGEMENT (TCM) COMMUNITY MONITORING PROGRAM - [place] SUMMARY: Pt discharged from [facility] on 06/13/24. Pt discharged from [facility] on 06/06/24. Admitted for: Osteomyelitis of the great toe on the R Meniscus tear w/ osteoarthritis, L knee s/p Surgical debridement of the R great toe w/ amputation MCKAY Patient seen Inpatient JOSHUA Visit? N/A. Patient seen ICARE Program? N/A. Contact made with patient: Yes Hi my name is Osiris Cartwright RN and I am calling from the [facility] on behalf of your PCP, Najma Bloom, DO I understand you were recently in the hospital so I am calling to check in with you to ensure you are feeling well now that you?re home. Do you mind if I ask you a few questions related to your hospital stay and well-being Yes - However, now is not a good time, next outreach attempt will be on day of the preference of the patient Pt is okay. States that he is getting around. He is on his way to see Ortho and prefers a call back tomorrow. Outreach Ended Osiris Cartwright RN 06/15/2024 10:21 AM Addendum Allergies As of Date: 06/15/2024 Noted Allergy Reaction ASPARTAME 06/05/2020 5 - Intolerance Comments: Severe headache BACTRIM (SULFAMETHOXAZOLE-TRIMETH*07/18/2016 4 - Hives 5 - Intolerance Comments: Reaction: gas Sensitivity: Intolerance. Sensitivity: Intolerance BIAXIN (CLARITHROMYCIN) 07/18/2016 16 - Unknown Comments: Indigestion/gas INFLUENZA VACCINE TRI-SP 09-10 10/29/2018 16 - Unknown Comments: Flu MONOSODIUM GLUTAMATE (MSG) 06/05/2020 5 - Intolerance Comments: Severe headache PANTOPRAZOLE 02/01/2021 6 - Diarrhea SULFA (SULFONAMIDE ANTIBIOTICS) 07/18/2016 2 - Rash 4 - Hives CLINDAMYCIN HCL 07/18/2016 6 - Diarrhea 8 - GI Upset 11 - Vomiting Comments: Reaction: Nausea/vomiting/diarrhea Other Reaction: stomach cramps Sensitivity: Intolerance Date Reviewed: 06/15/2024 Reviewed by: Chasidy Beck MA - Fully Assessed Reason for Visit: Transition Of Care [4074] Cmt: NIK D/C 06/13/24 Prescriptions as of 06/15/2024 - oxyCODONE IR (ROXICODONE) 5 mg immediate release tablet Take 1-2 tablets by mouth every 8 hours as needed for pain for up to 3 days. - insulin glargine (LANTUS SOLOSTAR U-100 INSULIN) 100 unit/mL (3 mL) Inject 30 Units subcutaneously every morning. - metFORMIN (GLUCOPHAGE) 500 mg tablet Take 500 mg by mouth two times a day with meals. - glimepiride (AMARYL) 4 mg tablet Take 4 mg by mouth two times a day with meals. - furosemide (LASIX) 40 mg tablet Take 1 tablet by mouth once daily. - dilTIAZem CD (CARDIZEM CD, CARTIA XT) 120 mg 24 hr capsule Take 1 capsule by mouth once daily. - lisinopril (ZESTRIL) 5 mg tablet Take 1 tablet by mouth once daily. - acetaminophen (TYLENOL) 325 mg tablet Take 2 tablets by mouth every 6 hours as needed for pain. - polyethylene glycol 3350 17 gram packet Take 1 Packet by mouth once daily. Dissolve dose in 4 - 8 ounces of liquid and take as directed. - lancets (FlutherTOUCH DELICA PLUS LANCET) 33 gauge Use with blood glucose test three times a day. Insulin Dep? Yes - blood sugar diagnostic (ONETOUCH VERIO TEST STRIPS) test strip Use with blood glucose test three times a day. Insulin Dep? Yes - FARXIGA 10 mg tablet TAKE 1 TABLET DAILY WITH BREAKFAST - DULoxetine (CYMBALTA) 60 mg capsule Take 1 capsule by mouth two times a day. - rosuvastatin (CRESTOR) 40 mg tablet take 1 tablet daily - gabapentin (NEURONTIN) 600 mg tablet Take 1 tablet by mouth three times a day for 90 days. - lidocaine-prilocaine (EMLA) 2.5-2.5 % cream APPLY TO AFFECTED AREA NEEDED PRIOR TO CHEMOTHERAPY - semaglutide (OZEMPIC) 1 mg/dose (4 mg/3 mL) pen Inject 1 mg subcutaneously one time a week. - blood sugar diagnostic (ONETOUCH VERIO TEST STRIPS) test strip 1 Strip two times a day. Use with blood glucose test two times a day. Insulin Dep? No - metoprolol tartrate, short acting, (LOPRESSOR) 25 mg tablet Take 1 tablet by mouth every 12 hours. - SITagliptin phosphate (JANUVIA) 100 mg tablet Take 1 tablet by mouth once daily. - ergocalciferol 50,000 unit capsule (VITAMIN D2, DRISDOL) TAKE 1 CAPSULE ONCE A WEEK - apixaban (ELIQUIS) 5 mg tab(s) Take 1 tablet by mouth two times a day. - sodium bicarbonate 650 mg tablet TAKE 2 TABLETS TWICE A DAY - allopurinol (ZYLOPRIM) 100 mg tablet Take 1 tablet by mouth twice daily. - Blood-Glucose Meter 1 Each three times daily. Please match the test strips and lancets - sildenafil (REVATIO) 20 mg tablet Take 3-5 tablets by mouth once daily as needed. - albuterol HFA (PROVE (more content not included)...[facility]08-20-2024 Telephone encounter Note* Telephone Encounter - Osiris Carbajal RN - 06/14/2024 5:26 PM EDT Called patient to confirm and schedule start of care visit. No answer. Left voicemail. [facility] Work Phone: 1(258) 204-573008-20-2024 Miscellaneous Notes* Telephone Encounter - Osiris Carbajal RN - 06/14/2024 5:26 PM EDT Called patient to confirm and schedule start of care visit. No answer. Left voicemail. documented in this encounterWadsworth-Rittman Hospital08-20-2024 NoteHNO ID: [id number] Author: EVELIN ZENDEJAS RN Service: ? Author Type: Registered Nurse Type: Progress Notes Filed: 06/14/2024 07:37 Note Text: [facility] with [facility]. PCC notified. Evelin Zendejas RN June 14[facility] History of Present illness Narrative* Evelin Zendejas RN - 06/14/2024 7:36 AM EDT [facility] with [facility]. PCC notified. Evelin Zendejas RN June 14, 2024 documented in this encounterWadsworth-Rittman Hospital08-20-2024 NotePatient Outreach (AGACM) YAMILKA SHARMA ([id number]) 1965 M Date Time Provider Department 06/14/24 [facility] During your visit today, we recorded the following information about you: Evelin Zendejas RN 06/14/2024 7:37 AM Signed [facility] with [facility]. PCC notified. Evelin Zendejas RN June 14, 2024 Allergies As of Date: 06/14/2024 Noted Allergy Reaction ASPARTAME 06/05/2020 5 - Intolerance Comments: Severe headache BACTRIM (SULFAMETHOXAZOLE-TRIMETH*07/18/2016 4 - Hives 5 - Intolerance Comments: Reaction: gas Sensitivity: Intolerance. Sensitivity: Intolerance BIAXIN (CLARITHROMYCIN) 07/18/2016 16 - Unknown Comments: Indigestion/gas INFLUENZA VACCINE TRI-SP 09-10 10/29/2018 16 - Unknown Comments: Flu MONOSODIUM GLUTAMATE (MSG) 06/05/2020 5 - Intolerance Comments: Severe headache PANTOPRAZOLE 02/01/2021 6 - Diarrhea SULFA (SULFONAMIDE ANTIBIOTICS) 07/18/2016 2 - Rash 4 - Hives CLINDAMYCIN HCL 07/18/2016 6 - Diarrhea 8 - GI Upset 11 - Vomiting Comments: Reaction: Nausea/vomiting/diarrhea Other Reaction: stomach cramps Sensitivity: Intolerance Date Reviewed: 06/12/2024 Reviewed by: Makenna Solis RN - Fully Assessed Reason for Visit: Transition Of Care [4074] Cmt: Discharged from [facility] to Home with [facility] Prescriptions as of 06/14/2024 - oxyCODONE IR (ROXICODONE) 5 mg immediate release tablet Take 1-2 tablets by mouth every 8 hours as needed for pain for up to 3 days. - insulin glargine (LANTUS SOLOSTAR U-100 INSULIN) 100 unit/mL (3 mL) Inject 30 Units subcutaneously every morning. - metFORMIN (GLUCOPHAGE) 500 mg tablet Take 500 mg by mouth two times a day with meals. - glimepiride (AMARYL) 4 mg tablet Take 4 mg by mouth two times a day with meals. - furosemide (LASIX) 40 mg tablet Take 1 tablet by mouth once daily. - dilTIAZem CD (CARDIZEM CD, CARTIA XT) 120 mg 24 hr capsule Take 1 capsule by mouth once daily. - lisinopril (ZESTRIL) 5 mg tablet Take 1 tablet by mouth once daily. - acetaminophen (TYLENOL) 325 mg tablet Take 2 tablets by mouth every 6 hours as needed for pain. - polyethylene glycol 3350 17 gram packet Take 1 Packet by mouth once daily. Dissolve dose in 4 - 8 ounces of liquid and take as directed. - lancets (ONETOUCH DELICA PLUS LANCET) 33 gauge Use with blood glucose test three times a day. Insulin Dep? Yes - blood sugar diagnostic (ONETOUCH VERIO TEST STRIPS) test strip Use with blood glucose test three times a day. Insulin Dep? Yes - FARXIGA 10 mg tablet TAKE 1 TABLET DAILY WITH BREAKFAST - DULoxetine (CYMBALTA) 60 mg capsule Take 1 capsule by mouth two times a day. - rosuvastatin (CRESTOR) 40 mg tablet take 1 tablet daily - gabapentin (NEURONTIN) 600 mg tablet Take 1 tablet by mouth three times a day for 90 days. - lidocaine-prilocaine (EMLA) 2.5-2.5 % cream APPLY TO AFFECTED AREA NEEDED PRIOR TO CHEMOTHERAPY - semaglutide (OZEMPIC) 1 mg/dose (4 mg/3 mL) pen Inject 1 mg subcutaneously one time a week. - blood sugar diagnostic (ONETOUCH VERIO TEST STRIPS) test strip 1 Strip two times a day. Use with blood glucose test two times a day. Insulin Dep? No - metoprolol tartrate, short acting, (LOPRESSOR) 25 mg tablet Take 1 tablet by mouth every 12 hours. - SITagliptin phosphate (JANUVIA) 100 mg tablet Take 1 tablet by mouth once daily. - ergocalciferol 50,000 unit capsule (VITAMIN D2, DRISDOL) TAKE 1 CAPSULE ONCE A WEEK - apixaban (ELIQUIS) 5 mg tab(s) Take 1 tablet by mouth two times a day. - sodium bicarbonate 650 mg tablet TAKE 2 TABLETS TWICE A DAY - allopurinol (ZYLOPRIM) 100 mg tablet Take 1 tablet by mouth twice daily. - Blood-Glucose Meter 1 Each three times daily. Please match the test strips and lancets - sildenafil (REVATIO) 20 mg tablet Take 3-5 tablets by mouth once daily as needed. 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18] 04/19/2020 Postu (more content not included)...[facility]08-19-2024 Telephone encounter Note* Telephone Encounter - Laura Smalls - 06/13/2024 11:31 AM EDT Date/Time: 06/13/2024 11:31 AM Spoke with YAMILKA SHARMA @ phone #: [phone] - Preferred # for contact: [phone] Have you received help from a home care company in the last 60 days? NO Are you agreeable to [facility] services? YES What address will we be seeing you at? [address] [place] [id number] Do you have any upcoming appointments or things we need to schedule around? 06/15/24, 06/16/24 Do you have a teachable CG or can you manage your care independently? CG FLU SHOT NONE [facility] Work Phone: 1(379) 294-935008-19-2024 Miscellaneous Notes* Telephone Encounter - Laura Smalls - 06/13/2024 11:31 AM EDT Date/Time: 06/13/2024 11:31 AM Spoke with YAMILKA SHARMA @ phone #: [phone] - Preferred # for contact: [phone] Have you received help from a home care company in the last 60 days? NO Are you agreeable to [facility] services? YES What address will we be seeing you at? [address] [facility] [address] Do you have any upcoming appointments or things we need to schedule around? 06/15/24, 06/16/24 Do you have a teachable CG or can you manage your care independently? CG FLU SHOT NONE documented in this encounterWadsworth-Rittman [facility]08-17-2024 NoteHNO ID: [id number] Author: NOTE, INTERFACE, ? Service: ? Author Type: ? Type: Progress Notes Filed: 06/11/2024 03:09 Note Text: Epic Scheduled Downtime: 06/11/2024 1:02:00 AM to 06/11/2024 2:58:00 AMR[facility]ford [facility]08-16-2024 NoteHNO ID: [id number] Author: SANIA GREENBERG RN Service: Care Management Author Type: Registered Nurse Type: Care Mgt Progress Note Filed: 06/10/2024 16:24 Note Text: CASE MANAGEMENT PROGRESS NOTE SERVICE DATE: 06/10/2024 SERVICE TIME: 2:06 PM Revisited with pt and on rounds with Fede VASQUEZ this morning. Pt in bed, c/o nausea, diarrhea overnight. PA examined pt and medications ordered. Discussed discharge planning and insurance review due 06/12. Discussed probable discharge plan early next week pending progress and insurance review. Pt and verbalized understanding. Will follow Revisited pt with PA. Pt c/o burning, heartburn, slight nause Pt sitting eob. PA examined pt and ordered medications. Will follow Pt updated on f/u podiatry appt 06/[address] Cherelle Yanez [facility] [address] SIGNATURE: Sania Greenberg RN PATIENT NAME: Yamilka Sharma DATE: June 10, 2024 TIME: 2:06 PM PAGER/CONTACT #: [phone] 06-10-2024 NoteHNO ID: [id number] Author: RODRIGUE TAPIA RN Service: Nursing Author Type: Registered Nurse Type: Nursing Progress Note Filed: 06/10/2024 13:45 Note Text: EKG results reported to Fede Zuleta PA-C by secure chat. No further orders at this timeRumford [facility]08-16-2024 Telephone encounter Note* Telephone Encounter - Tanna Mansfield LPN - 06/10/2024 12:34 PM EDT Najma Sheets, DO Please advise if you are agreeable to signing and following for HHC services? Our Clinicians will be sending the Plan of Care to you for review and approval. They will reach out for any appropriate orders required to provide home care services for the patient. We are not able to initiate HHC services without a following provider. Home care clinicians may also obtain orders from [facility] Virtualist Providers Thank you and we would be happy to answer any questions. Tanna Mansfield LPN 06/10/2024 12:35 PM [facility] Work Phone: [phone] Miscellaneous Notes* Telephone Encounter - Tanna Mansfield LPN - 06/10/2024 12:34 PM EDT Najma Sheets, DO Please advise if you are agreeable to signing and following for HHC services? Our Clinicians will be sending the Plan of Care to you for review and approval. They will reach out for any appropriate orders required to provide home care services for the patient. We are not able to initiate HHC services without a following provider. Home care clinicians may also obtain orders from [facility] Virtualist Providers Thank you and we would be happy to answer any questions. Tanna Mansfield LPN 06/10/2024 12:35 PM documented in this encounterWadsworth-Rittman [facility]08-16-2024 NoteHNO ID: [id number] Author: JOCY DOSHI, RN Service: Nursing Author Type: Registered Nurse Type: Progress Notes Filed: 06/10/2024 19:46 Note Text: 1117- nurse was informed from OT that pt is having chest burning across chest. Upon entering room, pt was in chair. Stated that it just started, and was belching. VS WNL, skin warm, dry, pink. Quinn VASQUEZ notified and aware.[facility]08-16-2024 NoteHNO ID: [id number] Author: FEDE ZULETA PA-C Service: Hospital Medicine Author Type: Physician Palm And Back Forger Type: Progress Notes Filed: 06/10/2024 10:53 Note Text: DEPARTMENT OF HOSPITAL MEDICINE PROGRESS NOTE SERVICE DATE: 06/10/2024 SERVICE TIME: 10:24 AM Hospital Medicine/Primary Attending: Isabel Weston MD NIGHT AND WEEKEND COVERAGE: [facility] Medicine Coverage Subjective INTERVAL HPI: - Patient is resting comfortably in bed. Patient reports that he had nausea and diarrhea overnight. - + Chills, but no fever - Mild abdominal cramping - Family at the bedside - Patient requesting PAVEL wrap to the left knee - Discussed insurance review is due this weekend. Patient is progressing well with therapy. Current Facility-Administered Medications Medication Dose Route Frequency sodium bicarbonate 1,300 mg tab(s) 1,300 mg ORAL BID gabapentin 600 mg cap(s) (NEURONTIN) 600 mg ORAL q 12 H metFORMIN 500 mg tab(s) (GLUCOPHAGE) 500 mg ORAL BID w MEALS SITagliptin phosphate 100 mg tablet (JANUVIA) 100 mg ORAL DAILY glimepiride 4 mg tab(s) (AMARYL) 4 mg ORAL BID w MEALS dapagliflozin propanediol 10 mg tab(s) (FARXIGA) 10 mg ORAL DAILY WITH BREAKFAST rosuvastatin 40 mg tab(s) (CRESTOR) 40 mg ORAL DAILY lisinopril 5 mg tab(s) (ZESTRIL) 5 mg ORAL DAILY albuterol HFA 90 mcg/actuation 2 Puff (PROVENTIL HFA, VENTOLIN HFA) 2 Puff INHALATION q 4 H PRN metoprolol tartrate (short acting) 25 mg tab(s) (LOPRESSOR) 25 mg ORAL q 12 H dilTIAZem CD 120 mg cap(s) (CARDIZEM CD, CARTIA XT) 120 mg ORAL DAILY apixaban 5 mg tab(s) (ELIQUIS) 5 mg ORAL BID allopurinol 100 mg tab(s) (ZYLOPRIM) 100 mg ORAL BID insulin glargine 30 Units pen (long acting) 30 Units SUBCUTANEOUS DAILY (8 AM) polyethylene glycol 3350 17 g packet 17 g ORAL DAILY PRN furosemide 40 mg tab(s) (LASIX) 40 mg ORAL DAILY DULoxetine 60 mg cap(s) (CYMBALTA) 60 mg ORAL BID ergocalciferol (vitamin D2) 50,000 Units cap(s) (DRISDOL) 50,000 Units ORAL q MON dextrose 40 % 15 g 15 g ORAL PRN Or glucagon 1 mg injection 1 mg INTRAMUSCULAR PRN Or dextrose 10% iv bolus 12.5 g INTRAVENOUS PRN aluminum-magnesium hydroxide-simethicone 200-200-20 mg/5 mL 30 mL 30 mL ORAL DAILY PRN acetaminophen 650 mg tab(s) (TYLENOL) 650 mg ORAL q 6 H PRN oxyCODONE IR 10 mg tab(s) (ROXICODONE) 10 mg ORAL TID cyclobenzaprine 10 mg tab(s) (FLEXERIL) 10 mg ORAL TID PRN oxyCODONE IR 5 mg tab(s) (ROXICODONE) 5 mg ORAL q 8 H PRN ondansetron orally disintegrating 4 mg tab(s) (ZOFRAN ODT) 4 mg ORAL q 6 H PRN lidocaine-prilocaine 2.5-2.5 % (EMLA) TOPICAL ONCE Objective PHYSICAL EXAM: BP 122/80 Pulse 91 Temp (Src) 97.6 (Oral) Resp 16 Ht 6' 0 (1.83m) Wt 254 lb 13.6 oz (115.6kg) SpO2 96% BMI 34.56 kg/(m2). O2 Therapy: Room Air Physical Exam Performed General: NAD, resting comfortably in bed, polite and cooperative HEENT: Normocephalic, atraumatic, Pupils are equal, round, and reactive to light, EOMI, Mucus membranes moist, tongue is pink and midline Lungs: CTA bilaterally without wheezes, rales, rhonchi. Unlabored respiratory effort Heart: Regular rate and rhythm without ectopy Abdomen: Soft, mild discomfort to the periumbilical region, bowel sounds present in all patiño, no HSM, no rebound or guarding. Musculoskeletal: Normal muscle bulk and tone. Right Foot Dressing Intact. Patient resting in bed and left knee ROM not attempted. Vascular: Cap refill brisk less than 2 sec. No cyanosis or edema. Neuro: CN II-XII intact. Answers all questions appropriately. Skin: No rashes, lesions, or cellulitis Lines, Drains, and Airways None Patient does not currently have any lines, drains or airways. DATA: Diagnostic tests reviewed for today's visit: Most recent labs Most recent imaging Assessment/Plan Problem List Aftercare (POA: Yes) Diffuse large B cell lymphoma (HCC) (POA: Yes) Coronary artery disease involving newtok coronary artery of newtok heart without angina pectoris (POA: Yes) Acute kidney injury superimposed on chronic kidney disease (HCC) (HCC) (POA: Yes) Cellulitis and abscess of foot (POA: Yes) Acute pain of left knee (POA: Yes) Diabetic ulcer of toe of right foot associated with type 2 diabetes mellitus, 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 (HCC) (POA: Yes) Acute medial meniscus tear (POA: Yes) Depression (POA: Yes) HOSPITAL COURSE: Yamilka Sharma is a 58 year old male with past medical history of chronic Left Knee Pain, Type 2 DM, HTN, Hyperlipidemia, CAD, Paroxysmal Atrial Fibrillation, CKD Stage IIIb, Non-Hodgkin's Lymphoma, Chronic Medi-port, Depression and Obesity, who presented to the [facility] on 05/25/24 with complaints of increased left knee pain after a fall. He was transferred to [facility] for further evaluation. He was treated with kenalog injection to the left knee and he was seen in consultation with ID and podiatry for R great toe infection (more content not included)...[facility]08-16-2024 NoteHNO ID: [id number] Author: DELVIS CAMPOS RN Service: Nursing Author Type: Registered Nurse Type: Progress Notes Filed: 06/10/2024 01:55 Note Text: Late note. 2215: Nurse in room to assess patient and administer night time medications. Patient c/o slight nausea, and upper body chills. Pt denies being diaphoretic. Patient likes room to be chilled and to be under blankets when sleeping. Patient insisted that he was ok to take night time medication. Patient took medication appropriately and laid back down in bed to rest. VS obtained and all WNL. See flowsheet. 2300: Nurse in room again to assess patient. Patient still c/o feeling off and not wanting any nausea medications. 2315: Page sent to #[phone]. Nurse received call back from hospitalist partition notcher. Discussed patient s/s and labs were ordered for AM. Will continue plan of care. [facility]08-14-2024 NoteHNO ID: [id number] Author: SANIA GREENBERG RN Service: Care Management Author Type: Registered Nurse Type: Care Mgt Progress Note Filed: 06/08/2024 13:55 Note Text: CASE MANAGEMENT PROGRESS NOTE SERVICE DATE: 06/08/2024 SERVICE TIME: 1:52 PM Revisited with pt at bedside during plan of care rounds with Fede VASQUEZ. Pt in wc, watching tv. PA examined left knee(meniscal tear) Pt c/o pain- PA reviewed and adjusted pain medication regimen. Pt updated on insurance review due 06/09. He is hopeful that insurance will approve continued stay. F/U appt with Dr Campos (podiatry) 06/16 2pm - [address] [address] SIGNATURE: Sania Greenberg RN PATIENT NAME: Yamilka Sharma DATE: June 08, 2024 TIME: 1:52 PM PAGER/CONTACT #: [phone]24 NoteHNO ID: [id number] Author: FEDE ZULETA PA-C Service: Hospital Medicine Author Type: Physician Palm And Back Forger Type: Plan of Care Filed: 06/08/2024 13:17 Note Text: DEPARTMENT OF HOSPITAL MEDICINE PLAN OF CARE NOTE SERVICE DATE: June 08, 2024 SERVICE TIME: 1:16 PM Hospital Medicine/Primary Attending: Department of Hospital Medicine NIGHT AND WEEKEND COVERAGE: [facility] Coverage PLAN OF CARE Patient participating in PT/OT. Patient with increased pain to the left knee. Waiting Orthopedics follow-up next week. Change Oxycodone to 10mg TID-- Discussed that we will begin to wean oxycodone in the next 48 hours. PRN Flexeril 10mg TID PRN Change Diet to Regular SIGNATURE: Fede Zuleta PA-C PATIENT NAME: Yamilka Sharma DATE: June 08, 2024 TIME: 1:16 [facility]08-13-2024 NoteHNO ID: [id number] Author: SANIA GREENBERG RN Service: Care Management Author Type: Registered Nurse Type: Care Mgt Progress Note Filed: 06/07/2024 10:40 Note Text: CASE MANAGEMENT PROGRESS NOTE SERVICE DATE: 06/07/2024 SERVICE TIME: 10:37 AM Met with pt at bedside during plan of care rounds with Lesly Martinez CNP. Pt up in chair being evaluated by PT. MILL FEEDER examined pt. Pt has no c/o currently. Will follow SIGNATURE: Sania Greenberg RN PATIENT NAME: Yamilka Sharma DATE: June 07, 2024 TIME: 10:37 AM PAGER/CONTACT #: [phone] 06-07-2024 NoteHNO ID: [id number] Author: EVELIN ZENDEJAS RN Service: ? Author Type: Registered Nurse Type: Progress Notes Filed: 06/07/2024 07:35 Note Text: TRANSITION CARE MANAGEMENT (TCM) DISCHARGE TO POST ACUTE FACILITY POST ACUTE TRANSFER SUMMARY: -Pt discharged from [facility] on 06/06/2024. -Post Acute Facility Admitted to [facility] -Admitted for: Knee Pain Office PCC will follow at discharge. Evelin Zendejas RN June 07[facility] History of Present illness Narrative* Evelin Zendejas RN - 06/07/2024 7:30 AM EDT TRANSITION CARE MANAGEMENT (TCM) DISCHARGE TO POST ACUTE FACILITY POST ACUTE TRANSFER SUMMARY: -Pt discharged from [facility] on 06/06/2024. -Post Acute Facility Admitted to [facility] -Admitted for: Knee Pain Office PCC will follow at discharge. Evelin Zendejas RN June 07, 2024 documented in this encounterW[facility] NotePatient Outreach (AGACM) KIMMYIANYAMILKA UMAÑA ([id number]) 1965 M Date Time Provider Department 06/07/24 EVELIN ZENDEJAS [facility] During your visit today, we recorded the following information about you: Evelin Zendejas RN 06/07/2024 7:35 AM Signed TRANSITION CARE MANAGEMENT (TCM) DISCHARGE TO POST ACUTE FACILITY POST ACUTE TRANSFER SUMMARY: -Pt discharged from [facility] on 06/06/2024. -Post Acute Facility Admitted to [facility] -Admitted for: Knee Pain Office PCC will follow at discharge. Evelin Zendejas RN June 07, 2024 Allergies As of Date: 06/07/2024 Noted Allergy Reaction ASPARTAME 06/05/2020 5 - Intolerance Comments: Severe headache BACTRIM (SULFAMETHOXAZOLE-TRIMETH*07/18/2016 4 - Hives 5 - Intolerance Comments: Reaction: gas Sensitivity: Intolerance. Sensitivity: Intolerance BIAXIN (CLARITHROMYCIN) 07/18/2016 16 - Unknown Comments: Indigestion/gas INFLUENZA VACCINE TRI-SP 09-10 10/29/2018 16 - Unknown Comments: Flu MONOSODIUM GLUTAMATE (MSG) 06/05/2020 5 - Intolerance Comments: Severe headache PANTOPRAZOLE 02/01/2021 6 - Diarrhea SULFA (SULFONAMIDE ANTIBIOTICS) 07/18/2016 2 - Rash 4 - Hives CLINDAMYCIN HCL 07/18/2016 6 - Diarrhea 8 - GI Upset 11 - Vomiting Comments: Reaction: Nausea/vomiting/diarrhea Other Reaction: stomach cramps Sensitivity: Intolerance Date Reviewed: 06/07/2024 Reviewed by: Melissa Wilkes, RN - Fully Assessed Reason for Visit: Transition Of Care [4005] Cmt: [facility] Discharge to [facility] Prescriptions as of 06/07/2024 - oxyCODONE-acetaminophen (PERCOCET) 5-325 mg tablet Take 1 tablet by mouth every 8 hours as needed for pain for up to 7 days. - lidocaine (SALONPAS) 4 % patch Apply 1 Patch as directed once daily for 5 days. - insulin glargine (LANTUS SOLOSTAR U-100 INSULIN) 100 unit/mL (3 mL) Inject 30 Units subcutaneously every morning. - metFORMIN (GLUCOPHAGE) 500 mg tablet Take 500 mg by mouth two times a day with meals. - glimepiride (AMARYL) 4 mg tablet Take 4 mg by mouth two times a day with meals. - furosemide (LASIX) 40 mg tablet Take 1 tablet by mouth once daily. - dilTIAZem CD (CARDIZEM CD, CARTIA XT) 120 mg 24 hr capsule Take 1 capsule by mouth once daily. - lisinopril (ZESTRIL) 5 mg tablet Take 1 tablet by mouth once daily. - acetaminophen (TYLENOL) 325 mg tablet Take 2 tablets by mouth every 6 hours as needed for pain. - diclofenac (VOLTAREN) 1 % topical gel Apply 2 g to affected area four times daily. - polyethylene glycol 3350 17 gram packet Take 1 Packet by mouth once daily. Dissolve dose in 4 - 8 ounces of liquid and take as directed. - lancets (FlutherTOUCH DELICA PLUS LANCET) 33 gauge Use with blood glucose test three times a day. Insulin Dep? Yes - blood sugar diagnostic (ONETOUCH VERIO TEST STRIPS) test strip Use with blood glucose test three times a day. Insulin Dep? Yes - FARXIGA 10 mg tablet TAKE 1 TABLET DAILY WITH BREAKFAST - DULoxetine (CYMBALTA) 60 mg capsule Take 1 capsule by mouth two times a day. - rosuvastatin (CRESTOR) 40 mg tablet take 1 tablet daily - gabapentin (NEURONTIN) 600 mg tablet Take 1 tablet by mouth three times a day for 90 days. - lidocaine-prilocaine (EMLA) 2.5-2.5 % cream APPLY TO AFFECTED AREA NEEDED PRIOR TO CHEMOTHERAPY - semaglutide (OZEMPIC) 1 mg/dose (4 mg/3 mL) pen Inject 1 mg subcutaneously one time a week. - blood sugar diagnostic (ONETOUCH VERIO TEST STRIPS) test strip 1 Strip two times a day. Use with blood glucose test two times a day. Insulin Dep? No - metoprolol tartrate, short acting, (LOPRESSOR) 25 mg tablet Take 1 tablet by mouth every 12 hours. - SITagliptin phosphate (JANUVIA) 100 mg tablet Take 1 tablet by mouth once daily. - ergocalciferol 50,000 unit capsule (VITAMIN D2, DRISDOL) TAKE 1 CAPSULE ONCE A WEEK - apixaban (ELIQUIS) 5 mg tab(s) Take 1 tablet by mouth two times a day. - sodium bicarbonate 650 mg tablet TAKE 2 TABLETS TWICE A DAY - allopurinol (ZYLOPRIM) 100 mg tablet Take 1 tablet by mouth twice daily. - Blood-Glucose Meter 1 Each three times daily. Please match the test strips and lancets - sildenafil (REVATIO) 20 mg tablet Take 3-5 tablets by mouth once daily as needed. - albuterol HFA (PROVENTIL HFA, VENTOLIN HFA) 90 mcg/actuation inhaler USE 2 INHALATIONS INSTRUCTED EVERY 4 HOURS NEEDED FOR WHEEZING/SHORTNESS OF BREATH Facility-Administered Medications as of 06/07/2024 - acetaminophen 650 mg tab(s) (TYLENOL) - sodium bicarbonate 1,300 mg tab(s) - gabapentin 600 mg cap(s) (NEURONTIN) - metFORMIN 500 mg tab(s) (GLUCOPHAGE) - SITagliptin phosphate 100 mg tablet (JANUVIA) - glimepiride 4 mg tab(s) (AMARYL) - dapagliflozin propanediol 10 mg tab(s) (FARXIGA) - rosuvastatin 40 mg tab(s) (CRESTOR) - lisinopril 5 mg tab(s) (ZESTRIL) - albuterol HFA 90 mcg/actuation 2 Puff (PRO (more content not included)...[facility]08-12-2024 NoteHNO ID: [id number] Author: RD KERR LSW Service: Care Management Author Type: Child Guidance Counselor Type: Care Mgt Progress Note Filed: 06/06/2024 14:28 Note Text: CARE MANAGEMENT DISCHARGE NOTE SERVICE DATE: June 06, 2024 SERVICE TIME: 2:25 PM Admission Date: 05/25/2024 LOS: 12 days Discharge Arrangement Discharge Arrangement: Longterm Facility Was an expedited discharge program used?: No Services Arranged Longterm Facility Provider Name: [facility] Caregiver Assessment Caregiver is ready, willing and able to meet the patient's needs as recommended by the inter-professional team: Yes Name of Caregiver: [facility] Transportation Arrangements Transportation Arrangements: Car Date of Trip: 06/06/24 Destination: [facility] Handoff Communication: Handoff to: Primary Care Physician Primary Care Physician Name/Phone: Najma Bloom DO/[phone] Discharge order placed. Patient is discharging to [facility] and is being transported by his spouse. Patient is aware and agreeable to the discharge plan[facility] Rounded with RN. No additional CM needs. SIGNATURE: MARLENE Weinberg PATIENT NAME: Yamilka Sharma DATE: June 06, 2024 TIME: 2:25 PM CONTACT #: [phone] [id number] NoteHNO ID: [id number] Author: CHERELLE CAMPOS DPM Service: Podiatry Author Type: Physician Type: Progress Notes Filed: 06/06/2024 08:21 Note Text: PODIATRY SURGICAL SERVICE CONSULT PROGRESS NOTE SERVICE DATE: 06/06/2024 SERVICE TIME: 0800 Subjective INTERVAL HPI: Patient seen bedside resting comfortably. No new pedal complaints. S/P Right Great toe amputation (DOS 05/30/24) d/t RT great toe ulcer with distal phalanx OM. Current Facility-Administered Medications Medication Dose Route Frequency acetaminophen 1,000 mg tab(s) (TYLENOL) 1,000 mg ORAL Q6H WHILE AWAKE lidocaine 4 % 1 Patch (SALONPAS) 1 Patch TRANSDERMAL DAILY AT 9 PM And lidocaine patch - REMOVE OTHER DAILY And lidocaine - VERIFY PATCH OTHER q 8 H insulin lispro injection (rapid acting) (ADMElog) SUBCUTANEOUS w MEALS insulin lispro injection (rapid acting) (ADMElog) SUBCUTANEOUS AT BEDTIME polyethylene glycol 3350 17 g packet 17 g ORAL DAILY PRN benzocaine-menthol 1 Lozenge (CEPACOL) 1 Lozenge MUCOUS MEMBRANE (TOPICAL MOUTH AND THROAT) q 2 H PRN benzonatate 100 mg cap(s) (TESSALON PERLE) 100 mg ORAL TID PRN calcium carbonate 1,000 mg chewable tab(s) (TUMS) 1,000 mg ORAL TID PRN prochlorperazine 10 mg injection (COMPAZINE) 10 mg INTRAVENOUS q 6 H PRN melatonin 3 mg tab(s) 3 mg ORAL AT BEDTIME PRN albuterol HFA 90 mcg/actuation 2 Puff (PROVENTIL HFA, VENTOLIN HFA) 2 Puff INHALATION q 4 H PRN allopurinol 100 mg tab(s) (ZYLOPRIM) 100 mg ORAL BID DULoxetine 60 mg cap(s) (CYMBALTA) 60 mg ORAL BID gabapentin 600 mg tab(s) (NEURONTIN) 600 mg ORAL TID rosuvastatin 40 mg tab(s) (CRESTOR) 40 mg ORAL DAILY sodium bicarbonate 1,300 mg tab(s) 1,300 mg ORAL BID dextrose 40 % 15 g 15 g ORAL PRN Or glucagon 1 mg injection 1 mg INTRAMUSCULAR PRN Or dextrose 10% iv bolus 12.5 g INTRAVENOUS PRN NaCl 0.9% iv flush bag 20 mL INTRAVENOUS PRN simethicone, chewable 80 mg tab(s) (MYLICON) 80 mg ORAL QID PRN dilTIAZem CD 120 mg cap(s) (CARDIZEM CD, CARTIA XT) 120 mg ORAL DAILY metoprolol tartrate (short acting) 25 mg tab(s) (LOPRESSOR) 25 mg ORAL q 12 H furosemide 40 mg tab(s) (LASIX) 40 mg ORAL DAILY dapagliflozin propanediol 10 mg tab(s) (FARXIGA) 10 mg ORAL DAILY WITH BREAKFAST metFORMIN 500 mg tab(s) (GLUCOPHAGE) 500 mg ORAL BID w MEALS SITagliptin phosphate 50 mg tab(s) (JANUVIA) 50 mg ORAL DAILY oxyCODONE IR 10 mg tab(s) (ROXICODONE) 10 mg ORAL q 4 H PRN oxyCODONE IR 5 mg tab(s) (ROXICODONE) 5 mg ORAL q 4 H PRN lidocaine 4 % topical cream (LMX) TOPICAL PRN apixaban 5 mg tab(s) (ELIQUIS) 5 mg ORAL BID cephALEXin 500 mg cap(s) (KEFLEX) 500 mg ORAL q 6 H Objective PHYSICAL EXAM: Physical Exam Performed: GENERAL: Alert, no distress, cooperative VASC:BL Foot DP / PT pulses +2/4. CFT less than 3 seconds to digits, skin temp warm to warm from proximal to distal BL Foot NEURO: BL light touch sensation diminished especially at toe level MSK: BL 5/5 muscle strength for all pedal muscle groups in dorsiflexion, plantarflexion, inversion, and eversion DERM: RIGHT great toe amputation incision well coapted, sutures intact, normal post operative edema, more erythema, appropriate drainage, no signs of infection, no fluctuance BP 114/61 Pulse 84 Temp (Src) 98.1 (Oral) Resp 17 Ht 6' 0 (1.83m) Wt 260 lb 2.3 oz (118.0kg) SpO2 97% BMI 35.27 kg/(m2). O2 Therapy: Room Air DATA: Diagnostic tests reviewed for today's visit: Most recent labs and imaging results. CBC, Coags, BMP, Mg, Phos Recent Labs 06/05/24 0616 06/04/24 0543 06/03/24 0628 NA 135* 135* 135* K 4.6 4.2 4.6 CHLOR 96* 98 99 CO2 28 27 28 BUN 44* 44* 48* CREAT 1.93* 1.73* 1.82* GLUC 116* 72* 106* CA 9.0 8.8 9.1 Impression/Recommendations SP RT great toe amputation (DOS 05/31/24) RT great toe osteomyelitis, distal phalanx RT foot great toe pathological fracture, distal phalanx RT foot Cellulitis Ulcer, right great toe, level of bone Stage IIIB chronic kidney disease DMII with neuropathy Chart and labs reviewed 05/26/24: Uric acid 6.2, CRP: 4.9 05/16/24 US DVT BL: Negative DVT bilaterally, Right is positive for valvular incompetency in distal external illiac and femoral vein. 05/16/24 PVR RAHEL: Normal waveforms. Resting right ankle brachial index: 1.21. Resting left ankle brachial index: 1.19 05/17/24 RT foot MRI: Great toe fracture. No definitive MRI findings of osteomyelitis although bone marrow evaluation is limited by changes related to the fracture. 05/17/24 RT Foot 1st digit culture: Strep dysgalactiae, negative staph species 05/26/24 RT foot xrays: positive for OM with destructive changes of the distal phalanx. 05/26/24 RT foot 1st digit culture: No growth 05/30/24 RT great toe bone culture; NGTD, pending 05/30/24 RT great toe post lavage; NGTD, final Wound Care: Apply betadine paint to incision on 1st great digit, adaptic, 4x4s, kerlix and pavel wrap. Nursing dressing orders in Podiatry changed today Weight be (more content not included)...[facility] [id number] NoteHNO ID: [id number] Author: DOUGLAS BETHEA JR, MD Service: Hospital Medicine Author Type: Physician Type: Progress Notes Filed: 06/05/2024 17:08 Note Text: DEPARTMENT OF HOSPITAL MEDICINE PROGRESS NOTE SERVICE DATE: 06/05/2024 SERVICE TIME: 5:05 PM Hospital Medicine/Primary Attending: Douglas Bethea Jr.* NIGHT AND WEEKEND COVERAGE: [place] COVERAGE: Days: [phone], please page attending physician. Nights: [phone], please page [place] Hospitalist Night coverage pager [phone]. Subjective INTERVAL HPI: Patient has no new concerns. Asking about left knee injection Current Facility-Administered Medications Medication Dose Route Frequency acetaminophen 1,000 mg tab(s) (TYLENOL) 1,000 mg ORAL Q6H WHILE AWAKE lidocaine 4 % 1 Patch (SALONPAS) 1 Patch TRANSDERMAL DAILY AT 9 PM And lidocaine patch - REMOVE OTHER DAILY And lidocaine - VERIFY PATCH OTHER q 8 H insulin lispro injection (rapid acting) (ADMElog) SUBCUTANEOUS w MEALS insulin lispro injection (rapid acting) (ADMElog) SUBCUTANEOUS AT BEDTIME polyethylene glycol 3350 17 g packet 17 g ORAL DAILY PRN benzocaine-menthol 1 Lozenge (CEPACOL) 1 Lozenge MUCOUS MEMBRANE (TOPICAL MOUTH AND THROAT) q 2 H PRN benzonatate 100 mg cap(s) (TESSALON PERLE) 100 mg ORAL TID PRN calcium carbonate 1,000 mg chewable tab(s) (TUMS) 1,000 mg ORAL TID PRN prochlorperazine 10 mg injection (COMPAZINE) 10 mg INTRAVENOUS q 6 H PRN melatonin 3 mg tab(s) 3 mg ORAL AT BEDTIME PRN albuterol HFA 90 mcg/actuation 2 Puff (PROVENTIL HFA, VENTOLIN HFA) 2 Puff INHALATION q 4 H PRN allopurinol 100 mg tab(s) (ZYLOPRIM) 100 mg ORAL BID DULoxetine 60 mg cap(s) (CYMBALTA) 60 mg ORAL BID gabapentin 600 mg tab(s) (NEURONTIN) 600 mg ORAL TID rosuvastatin 40 mg tab(s) (CRESTOR) 40 mg ORAL DAILY sodium bicarbonate 1,300 mg tab(s) 1,300 mg ORAL BID dextrose 40 % 15 g 15 g ORAL PRN Or glucagon 1 mg injection 1 mg INTRAMUSCULAR PRN Or dextrose 10% iv bolus 12.5 g INTRAVENOUS PRN NaCl 0.9% iv flush bag 20 mL INTRAVENOUS PRN simethicone, chewable 80 mg tab(s) (MYLICON) 80 mg ORAL QID PRN dilTIAZem CD 120 mg cap(s) (CARDIZEM CD, CARTIA XT) 120 mg ORAL DAILY metoprolol tartrate (short acting) 25 mg tab(s) (LOPRESSOR) 25 mg ORAL q 12 H furosemide 40 mg tab(s) (LASIX) 40 mg ORAL DAILY dapagliflozin propanediol 10 mg tab(s) (FARXIGA) 10 mg ORAL DAILY WITH BREAKFAST metFORMIN 500 mg tab(s) (GLUCOPHAGE) 500 mg ORAL BID w MEALS SITagliptin phosphate 50 mg tab(s) (JANUVIA) 50 mg ORAL DAILY oxyCODONE IR 10 mg tab(s) (ROXICODONE) 10 mg ORAL q 4 H PRN oxyCODONE IR 5 mg tab(s) (ROXICODONE) 5 mg ORAL q 4 H PRN lidocaine 4 % topical cream (LMX) TOPICAL PRN apixaban 5 mg tab(s) (ELIQUIS) 5 mg ORAL BID cephALEXin 500 mg cap(s) (KEFLEX) 500 mg ORAL q 6 H Objective PHYSICAL EXAM: BP 109/68 Pulse 81 Temp (Src) 98.1 (Oral) Resp 17 Ht 6' 0 (1.83m) Wt 260 lb 2.3 oz (118.0kg) SpO2 99% BMI 35.27 kg/(m2). O2 Therapy: Room Air Physical Exam Performed GENERAL: well appearing, in no acute distress, obese EYES: PERRLA, EOMI, Conjunctiva clear MOUTH and THROAT: membranes moist NECK: supple HEART: regular rate and rhythm, S1 and S2, no murmur LUNGS: clear to auscultation; no rales or wheezes NEURO: Alert and Oriented x3; Nonfocal PSYCH: Appropriate mood; Cooperative LEFT KNEE: effusion resolved, diffuse joint line tenderness (medial > lateral), no erythema or warmth RIGHT FOOT: dressing in place (reviewed picture) Lines, Drains, and Airways Line Duration Implanted Vascular Access Device Single Port 06/02/24 1500 Right Chest 3 days Reviewed lines and needs to be continued: REASONS: Intravenous antibiotics DATA: Diagnostic tests reviewed for today's visit: Most recent labs Most recent imaging Assessment/Plan Problem List Osteomyelitis of great toe of right foot (HCC) (POA: Yes) Acute pain of left knee (POA: Yes) Acute medial meniscus tear (POA: Yes) Hemarthrosis involving knee joint, left (POA: Yes) Stage 3b chronic kidney disease (HCC) (POA: Yes) Type 2 diabetes mellitus with diabetic nephropathy, without long-term current use of insulin (HCC) (POA: Yes) Hyperlipidemia, mixed (POA: Yes) Essential hypertension (POA: Yes) Coronary artery disease involving [place] coronary artery of [place] heart without angina pectoris (POA: Yes) Paroxysmal atrial fibrillation (HCC) (POA: Yes) Simple chronic bronchitis (HCC) (POA: Yes) H/O insertion of central venous access port (POA: Yes) Depression (POA: Yes) Class 2 obesity due to excess calories with body mass index (BMI) of 35.0 to 35.9 in adult (POA: Yes) Physical debility (POA: Yes) HOSPITAL COURSE: This is a 58 yo M, with a PMH of Left Knee Pain, Type 2 DM, HTN, Hyperlipidemia, CAD, Paroxysmal Atrial Fibrillation, CKD Stage IIIb, Non-Hodgkin's Lymphoma, Chronic Medi-port, Depression and Obesity, who presented to the [facility] on 05/25/24 with complaints of incr (more content not included)...[facility] [id number] NoteHNO ID: [id number] Author: MAURO LEE DPM Service: Podiatry Author Type: Physician Type: Progress Notes Filed: 06/05/2024 13:09 Note Text: PODIATRY SURGICAL SERVICE CONSULT PROGRESS NOTE SERVICE DATE: 06/05/2024 SERVICE TIME: 10:09 AM Subjective INTERVAL HPI: Patient seen bedside resting comfortably. No new pedal complaints. S/P Right Great toe amputation (DOS 05/30/24) d/t RT great toe ulcer with distal phalanx OM. Current Facility-Administered Medications Medication Dose Route Frequency acetaminophen 1,000 mg tab(s) (TYLENOL) 1,000 mg ORAL Q6H WHILE AWAKE lidocaine 4 % 1 Patch (SALONPAS) 1 Patch TRANSDERMAL DAILY AT 9 PM And lidocaine patch - REMOVE OTHER DAILY And lidocaine - VERIFY PATCH OTHER q 8 H insulin lispro injection (rapid acting) (ADMElog) SUBCUTANEOUS w MEALS insulin lispro injection (rapid acting) (ADMElog) SUBCUTANEOUS AT BEDTIME polyethylene glycol 3350 17 g packet 17 g ORAL DAILY PRN benzocaine-menthol 1 Lozenge (CEPACOL) 1 Lozenge MUCOUS MEMBRANE (TOPICAL MOUTH AND THROAT) q 2 H PRN benzonatate 100 mg cap(s) (TESSALON PERLE) 100 mg ORAL TID PRN calcium carbonate 1,000 mg chewable tab(s) (TUMS) 1,000 mg ORAL TID PRN prochlorperazine 10 mg injection (COMPAZINE) 10 mg INTRAVENOUS q 6 H PRN melatonin 3 mg tab(s) 3 mg ORAL AT BEDTIME PRN albuterol HFA 90 mcg/actuation 2 Puff (PROVENTIL HFA, VENTOLIN HFA) 2 Puff INHALATION q 4 H PRN allopurinol 100 mg tab(s) (ZYLOPRIM) 100 mg ORAL BID DULoxetine 60 mg cap(s) (CYMBALTA) 60 mg ORAL BID gabapentin 600 mg tab(s) (NEURONTIN) 600 mg ORAL TID rosuvastatin 40 mg tab(s) (CRESTOR) 40 mg ORAL DAILY sodium bicarbonate 1,300 mg tab(s) 1,300 mg ORAL BID dextrose 40 % 15 g 15 g ORAL PRN Or glucagon 1 mg injection 1 mg INTRAMUSCULAR PRN Or dextrose 10% iv bolus 12.5 g INTRAVENOUS PRN NaCl 0.9% iv flush bag 20 mL INTRAVENOUS PRN simethicone, chewable 80 mg tab(s) (MYLICON) 80 mg ORAL QID PRN dilTIAZem CD 120 mg cap(s) (CARDIZEM CD, CARTIA XT) 120 mg ORAL DAILY metoprolol tartrate (short acting) 25 mg tab(s) (LOPRESSOR) 25 mg ORAL q 12 H furosemide 40 mg tab(s) (LASIX) 40 mg ORAL DAILY dapagliflozin propanediol 10 mg tab(s) (FARXIGA) 10 mg ORAL DAILY WITH BREAKFAST metFORMIN 500 mg tab(s) (GLUCOPHAGE) 500 mg ORAL BID w MEALS SITagliptin phosphate 50 mg tab(s) (JANUVIA) 50 mg ORAL DAILY oxyCODONE IR 10 mg tab(s) (ROXICODONE) 10 mg ORAL q 4 H PRN oxyCODONE IR 5 mg tab(s) (ROXICODONE) 5 mg ORAL q 4 H PRN lidocaine 4 % topical cream (LMX) TOPICAL PRN apixaban 5 mg tab(s) (ELIQUIS) 5 mg ORAL BID cephALEXin 500 mg cap(s) (KEFLEX) 500 mg ORAL q 6 H Objective PHYSICAL EXAM: Physical Exam Performed: GENERAL: Alert, no distress, cooperative VASC:BL Foot DP / PT pulses +2/4. CFT less than 3 seconds to digits, skin temp warm to warm from proximal to distal BL Foot NEURO: BL light touch sensation diminished especially at toe level MSK: BL 5/5 muscle strength for all pedal muscle groups in dorsiflexion, plantarflexion, inversion, and eversion DERM: RIGHT great toe amputation incision well coapted, sutures intact, normal post operative edema, more erythema, appropriate drainage, no signs of infection, no fluctuance BP 94/62 Pulse 102 Temp (Src) 98.1 (Oral) Resp 18 Ht 6' 0 (1.83m) Wt 260 lb 2.3 oz (118.0kg) SpO2 98% BMI 35.27 kg/(m2). O2 Therapy: Room Air DATA: Diagnostic tests reviewed for today's visit: Most recent labs and imaging results. CBC, Coags, BMP, Mg, Phos Recent Labs 06/04/24 0543 06/03/24 0628 06/02/24 0522 WBC -- -- 9.97 HB -- -- 10.7* HCT -- -- 33.6* PLT -- -- 136* NA 135* 135* 134* K 4.2 4.6 4.7 CHLOR 98 99 98 CO2 27 28 27 BUN 44* 48* 52* CREAT 1.73* 1.82* 2.07* GLUC 72* 106* 81 CA 8.8 9.1 8.7 Impression/Recommendations SP RT great toe amputation (DOS 05/31/24) RT great toe osteomyelitis, distal phalanx RT foot great toe pathological fracture, distal phalanx RT foot Cellulitis Ulcer, right great toe, level of bone Stage IIIB chronic kidney disease DMII with neuropathy Chart and labs reviewed 05/26/24: Uric acid 6.2, CRP: 4.9 05/16/24 US DVT BL: Negative DVT bilaterally, Right is positive for valvular incompetency in distal external illiac and femoral vein. 05/16/24 PVR RAHEL: Normal waveforms. Resting right ankle brachial index: 1.21. Resting left ankle brachial index: 1.19 05/17/24 RT foot MRI: Great toe fracture. No definitive MRI findings of osteomyelitis although bone marrow evaluation is limited by changes related to the fracture. 05/17/24 RT Foot 1st digit culture: Strep dysgalactiae, negative staph species 05/26/24 RT foot xrays: positive for OM with destructive changes of the distal phalanx. 05/26/24 RT foot 1st digit culture: No growth 05/30/24 RT great toe bone culture; NGTD, pending 05/30/24 RT great toe post lavage; NGTD, pending Wound Care: Apply betadine paint to incision on 1st great digit, adaptic, 4x4s, kerlix and a (more content not included)...[id number] NoteHNO ID: [id number] Author: DOUGLAS BETHEA JR, MD Service: Hospital Medicine Author Type: Physician Type: Progress Notes Filed: 06/04/2024 16:06 Note Text: DEPARTMENT OF HOSPITAL MEDICINE PROGRESS NOTE SERVICE DATE: 06/04/2024 SERVICE TIME: 4:02 PM Hospital Medicine/Primary Attending: Douglas Bethea Jr.* NIGHT AND WEEKEND COVERAGE: [employer] COVERAGE: Days: [phone], please page attending physician. Nights: [phone], please page [place] [facility] Night coverage pager [phone]. Subjective INTERVAL HPI: Patient without new concerns today. Left knee effusion resolving but pain persists. Asking about injection. Current Facility-Administered Medications Medication Dose Route Frequency acetaminophen 1,000 mg tab(s) (TYLENOL) 1,000 mg ORAL Q6H WHILE AWAKE lidocaine 4 % 1 Patch (SALONPAS) 1 Patch TRANSDERMAL DAILY AT 9 PM And lidocaine patch - REMOVE OTHER DAILY And lidocaine - VERIFY PATCH OTHER q 8 H insulin lispro injection (rapid acting) (ADMElog) SUBCUTANEOUS w MEALS insulin lispro injection (rapid acting) (ADMElog) SUBCUTANEOUS AT BEDTIME polyethylene glycol 3350 17 g packet 17 g ORAL DAILY PRN benzocaine-menthol 1 Lozenge (CEPACOL) 1 Lozenge MUCOUS MEMBRANE (TOPICAL MOUTH AND THROAT) q 2 H PRN benzonatate 100 mg cap(s) (TESSALON PERLE) 100 mg ORAL TID PRN calcium carbonate 1,000 mg chewable tab(s) (TUMS) 1,000 mg ORAL TID PRN prochlorperazine 10 mg injection (COMPAZINE) 10 mg INTRAVENOUS q 6 H PRN melatonin 3 mg tab(s) 3 mg ORAL AT BEDTIME PRN albuterol HFA 90 mcg/actuation 2 Puff (PROVENTIL HFA, VENTOLIN HFA) 2 Puff INHALATION q 4 H PRN allopurinol 100 mg tab(s) (ZYLOPRIM) 100 mg ORAL BID DULoxetine 60 mg cap(s) (CYMBALTA) 60 mg ORAL BID gabapentin 600 mg tab(s) (NEURONTIN) 600 mg ORAL TID rosuvastatin 40 mg tab(s) (CRESTOR) 40 mg ORAL DAILY sodium bicarbonate 1,300 mg tab(s) 1,300 mg ORAL BID dextrose 40 % 15 g 15 g ORAL PRN Or glucagon 1 mg injection 1 mg INTRAMUSCULAR PRN Or dextrose 10% iv bolus 12.5 g INTRAVENOUS PRN NaCl 0.9% iv flush bag 20 mL INTRAVENOUS PRN simethicone, chewable 80 mg tab(s) (MYLICON) 80 mg ORAL QID PRN dilTIAZem CD 120 mg cap(s) (CARDIZEM CD, CARTIA XT) 120 mg ORAL DAILY metoprolol tartrate (short acting) 25 mg tab(s) (LOPRESSOR) 25 mg ORAL q 12 H furosemide 40 mg tab(s) (LASIX) 40 mg ORAL DAILY dapagliflozin propanediol 10 mg tab(s) (FARXIGA) 10 mg ORAL DAILY WITH BREAKFAST metFORMIN 500 mg tab(s) (GLUCOPHAGE) 500 mg ORAL BID w MEALS SITagliptin phosphate 50 mg tab(s) (JANUVIA) 50 mg ORAL DAILY oxyCODONE IR 10 mg tab(s) (ROXICODONE) 10 mg ORAL q 4 H PRN oxyCODONE IR 5 mg tab(s) (ROXICODONE) 5 mg ORAL q 4 H PRN lidocaine 4 % topical cream (LMX) TOPICAL PRN apixaban 5 mg tab(s) (ELIQUIS) 5 mg ORAL BID glimepiride 2 mg tab(s) (AMARYL) 2 mg ORAL BID w MEALS cephALEXin 500 mg cap(s) (KEFLEX) 500 mg ORAL q 6 H Objective PHYSICAL EXAM: BP 95/46 Pulse 99 Temp (Src) 98.7 (Oral) Resp 18 Ht 6' 0 (1.83m) Wt 260 lb 2.3 oz (118.0kg) SpO2 99% BMI 35.27 kg/(m2). O2 Therapy: Room Air Physical Exam Performed GENERAL: well appearing, in no acute distress, obese EYES: PERRLA, EOMI, Conjunctiva clear MOUTH and THROAT: membranes moist NECK: supple HEART: regular rate and rhythm, S1 and S2, no murmur LUNGS: clear to auscultation; no rales or wheezes NEURO: Alert and Oriented x3; Nonfocal PSYCH: Appropriate mood; Cooperative LEFT KNEE: effusion resolved, diffuse joint line tenderness (medial > lateral), no erythema or warmth RIGHT FOOT: dressing in place (reviewed picture) Lines, Drains, and Airways Line Duration Implanted Vascular Access Device Single Port 06/02/24 1500 Right Chest 2 days Reviewed lines and needs to be continued: REASONS: Intravenous antibiotics DATA: Diagnostic tests reviewed for today's visit: Most recent labs Most recent imaging Assessment/Plan Problem List Osteomyelitis of great toe of right foot (HCC) (POA: Yes) Acute pain of left knee (POA: Yes) Acute medial meniscus tear (POA: Yes) Hemarthrosis involving knee joint, left (POA: Yes) Stage 3b chronic kidney disease (HCC) (POA: Yes) Type 2 diabetes mellitus with diabetic nephropathy, without long-term current use of insulin (HCC) (POA: Yes) Hyperlipidemia, mixed (POA: Yes) Essential hypertension (POA: Yes) Coronary artery disease involving [place] coronary artery of [place] heart without angina pectoris (POA: Yes) Paroxysmal atrial fibrillation (HCC) (POA: Yes) Simple chronic bronchitis (HCC) (POA: Yes) H/O insertion of central venous access port (POA: Yes) Depression (POA: Yes) Class 2 obesity due to excess calories with body mass index (BMI) of 35.0 to 35.9 in adult (POA: Yes) Physical debility (POA: Yes) HOSPITAL COURSE: This is a 58 yo M, with a PMH of Left Knee Pain, Type 2 DM, HTN, Hyperlipidemia, CAD, Paroxysmal Atrial Fibrillation, CKD Stage IIIb, Non-Hodgkin's Lymphoma, Chronic Medi-port, Depr (more content not included)...[facility] [id number] NoteHNO ID: [id number] Author: MAURO LEE DPM Service: Podiatry Author Type: Physician Type: Progress Notes Filed: 06/04/2024 09:56 Note Text: PODIATRY SURGICAL SERVICE CONSULT PROGRESS NOTE SERVICE DATE: 06/04/2024 SERVICE TIME: 9:56 AM Subjective INTERVAL HPI: Patient seen bedside resting comfortably. No new pedal complaints. S/P Right Great toe amputation (DOS 05/30/24) d/t RT great toe ulcer with distal phalanx OM. Current Facility-Administered Medications Medication Dose Route Frequency acetaminophen 1,000 mg tab(s) (TYLENOL) 1,000 mg ORAL Q6H WHILE AWAKE lidocaine 4 % 1 Patch (SALONPAS) 1 Patch TRANSDERMAL DAILY AT 9 PM And lidocaine patch - REMOVE OTHER DAILY And lidocaine - VERIFY PATCH OTHER q 8 H insulin lispro injection (rapid acting) (ADMElog) SUBCUTANEOUS w MEALS insulin lispro injection (rapid acting) (ADMElog) SUBCUTANEOUS AT BEDTIME polyethylene glycol 3350 17 g packet 17 g ORAL DAILY PRN benzocaine-menthol 1 Lozenge (CEPACOL) 1 Lozenge MUCOUS MEMBRANE (TOPICAL MOUTH AND THROAT) q 2 H PRN benzonatate 100 mg cap(s) (TESSALON PERLE) 100 mg ORAL TID PRN calcium carbonate 1,000 mg chewable tab(s) (TUMS) 1,000 mg ORAL TID PRN prochlorperazine 10 mg injection (COMPAZINE) 10 mg INTRAVENOUS q 6 H PRN melatonin 3 mg tab(s) 3 mg ORAL AT BEDTIME PRN albuterol HFA 90 mcg/actuation 2 Puff (PROVENTIL HFA, VENTOLIN HFA) 2 Puff INHALATION q 4 H PRN allopurinol 100 mg tab(s) (ZYLOPRIM) 100 mg ORAL BID DULoxetine 60 mg cap(s) (CYMBALTA) 60 mg ORAL BID gabapentin 600 mg tab(s) (NEURONTIN) 600 mg ORAL TID rosuvastatin 40 mg tab(s) (CRESTOR) 40 mg ORAL DAILY sodium bicarbonate 1,300 mg tab(s) 1,300 mg ORAL BID dextrose 40 % 15 g 15 g ORAL PRN Or glucagon 1 mg injection 1 mg INTRAMUSCULAR PRN Or dextrose 10% iv bolus 12.5 g INTRAVENOUS PRN NaCl 0.9% iv flush bag 20 mL INTRAVENOUS PRN simethicone, chewable 80 mg tab(s) (MYLICON) 80 mg ORAL QID PRN dilTIAZem CD 120 mg cap(s) (CARDIZEM CD, CARTIA XT) 120 mg ORAL DAILY metoprolol tartrate (short acting) 25 mg tab(s) (LOPRESSOR) 25 mg ORAL q 12 H furosemide 40 mg tab(s) (LASIX) 40 mg ORAL DAILY dapagliflozin propanediol 10 mg tab(s) (FARXIGA) 10 mg ORAL DAILY WITH BREAKFAST metFORMIN 500 mg tab(s) (GLUCOPHAGE) 500 mg ORAL BID w MEALS SITagliptin phosphate 50 mg tab(s) (JANUVIA) 50 mg ORAL DAILY oxyCODONE IR 10 mg tab(s) (ROXICODONE) 10 mg ORAL q 4 H PRN oxyCODONE IR 5 mg tab(s) (ROXICODONE) 5 mg ORAL q 4 H PRN lidocaine 4 % topical cream (LMX) TOPICAL PRN apixaban 5 mg tab(s) (ELIQUIS) 5 mg ORAL BID glimepiride 2 mg tab(s) (AMARYL) 2 mg ORAL BID w MEALS cephALEXin 500 mg cap(s) (KEFLEX) 500 mg ORAL q 6 H Objective PHYSICAL EXAM: Physical Exam Performed: GENERAL: Alert, no distress, cooperative VASC:BL Foot DP / PT pulses +2/4. CFT less than 3 seconds to digits, skin temp warm to warm from proximal to distal BL Foot NEURO: BL light touch sensation diminished especially at toe level MSK: BL 5/5 muscle strength for all pedal muscle groups in dorsiflexion, plantarflexion, inversion, and eversion DERM: RIGHT great toe amputation incision well coapted, sutures intact, normal post operative edema, more erythema, appropriate drainage, no signs of infection, no fluctuance BP 97/63 Pulse 88 Temp (Src) 97.9 (Oral) Resp 16 Ht 6' 0 (1.83m) Wt 260 lb 2.3 oz (118.0kg) SpO2 96% BMI 35.27 kg/(m2). O2 Therapy: Room Air DATA: Diagnostic tests reviewed for today's visit: Most recent labs and imaging results. CBC, Coags, BMP, Mg, Phos Recent Labs 06/03/24 0628 06/02/24 0522 06/01/24 0533 WBC -- 9.97 6.26 HB -- 10.7* 10.0* HCT -- 33.6* 31.6* PLT -- 136* 121* NA 135* 134* 135* K 4.6 4.7 4.7 CHLOR 99 98 96* CO2 28 27 30 BUN 48* 52* 48* CREAT 1.82* 2.07* 1.95* GLUC 106* 81 79 CA 9.1 8.7 9.0 Impression/Recommendations SP RT great toe amputation (DOS 05/31/24) RT great toe osteomyelitis, distal phalanx RT foot great toe pathological fracture, distal phalanx RT foot Cellulitis Ulcer, right great toe, level of bone Stage IIIB chronic kidney disease DMII with neuropathy Chart and labs reviewed 05/26/24: Uric acid 6.2, CRP: 4.9 05/16/24 US DVT BL: Negative DVT bilaterally, Right is positive for valvular incompetency in distal external illiac and femoral vein. 05/16/24 PVR RAHEL: Normal waveforms. Resting right ankle brachial index: 1.21. Resting left ankle brachial index: 1.19 05/17/24 RT foot MRI: Great toe fracture. No definitive MRI findings of osteomyelitis although bone marrow evaluation is limited by changes related to the fracture. 05/17/24 RT Foot 1st digit culture: Strep dysgalactiae, negative staph species 05/26/24 RT foot xrays: positive for OM with destructive changes of the distal phalanx. 05/26/24 RT foot 1st digit culture: No growth 05/30/24 RT great toe bone culture; NGTD, pending 05/30/24 RT great toe post lavage; NGTD, pending Wound Care: Apply betadine pa (more content not included)...[facility] 06-03-2024 NoteHNO ID: [id number] Author: DOUGLAS BETHEA JR, MD Service: Hospital Medicine Author Type: Physician Type: Progress Notes Filed: 06/03/2024 17:47 Note Text: DEPARTMENT OF HOSPITAL MEDICINE PROGRESS NOTE SERVICE DATE: 06/03/2024 SERVICE TIME: 5:45 PM Hospital Medicine/Primary Attending: Douglas Bethea Jr.* NIGHT AND WEEKEND COVERAGE: [employer] COVERAGE: Days: [phone], please page attending physician. Nights: [phone], please page [place] [facility] Night coverage pager [phone]. Subjective INTERVAL HPI: Patient without new concerns today. Mild improvement in right knee pain. Asking about possible injection again Current Facility-Administered Medications Medication Dose Route Frequency acetaminophen 1,000 mg tab(s) (TYLENOL) 1,000 mg ORAL Q6H WHILE AWAKE lidocaine 4 % 1 Patch (SALONPAS) 1 Patch TRANSDERMAL DAILY AT 9 PM And lidocaine patch - REMOVE OTHER DAILY And lidocaine - VERIFY PATCH OTHER q 8 H insulin lispro injection (rapid acting) (ADMElog) SUBCUTANEOUS w MEALS insulin lispro injection (rapid acting) (ADMElog) SUBCUTANEOUS AT BEDTIME polyethylene glycol 3350 17 g packet 17 g ORAL DAILY PRN benzocaine-menthol 1 Lozenge (CEPACOL) 1 Lozenge MUCOUS MEMBRANE (TOPICAL MOUTH AND THROAT) q 2 H PRN benzonatate 100 mg cap(s) (TESSALON PERLE) 100 mg ORAL TID PRN calcium carbonate 1,000 mg chewable tab(s) (TUMS) 1,000 mg ORAL TID PRN prochlorperazine 10 mg injection (COMPAZINE) 10 mg INTRAVENOUS q 6 H PRN melatonin 3 mg tab(s) 3 mg ORAL AT BEDTIME PRN albuterol HFA 90 mcg/actuation 2 Puff (PROVENTIL HFA, VENTOLIN HFA) 2 Puff INHALATION q 4 H PRN allopurinol 100 mg tab(s) (ZYLOPRIM) 100 mg ORAL BID DULoxetine 60 mg cap(s) (CYMBALTA) 60 mg ORAL BID gabapentin 600 mg tab(s) (NEURONTIN) 600 mg ORAL TID rosuvastatin 40 mg tab(s) (CRESTOR) 40 mg ORAL DAILY sodium bicarbonate 1,300 mg tab(s) 1,300 mg ORAL BID dextrose 40 % 15 g 15 g ORAL PRN Or glucagon 1 mg injection 1 mg INTRAMUSCULAR PRN Or dextrose 10% iv bolus 12.5 g INTRAVENOUS PRN NaCl 0.9% iv flush bag 20 mL INTRAVENOUS PRN simethicone, chewable 80 mg tab(s) (MYLICON) 80 mg ORAL QID PRN dilTIAZem CD 120 mg cap(s) (CARDIZEM CD, CARTIA XT) 120 mg ORAL DAILY metoprolol tartrate (short acting) 25 mg tab(s) (LOPRESSOR) 25 mg ORAL q 12 H furosemide 40 mg tab(s) (LASIX) 40 mg ORAL DAILY dapagliflozin propanediol 10 mg tab(s) (FARXIGA) 10 mg ORAL DAILY WITH BREAKFAST metFORMIN 500 mg tab(s) (GLUCOPHAGE) 500 mg ORAL BID w MEALS SITagliptin phosphate 50 mg tab(s) (JANUVIA) 50 mg ORAL DAILY oxyCODONE IR 10 mg tab(s) (ROXICODONE) 10 mg ORAL q 4 H PRN oxyCODONE IR 5 mg tab(s) (ROXICODONE) 5 mg ORAL q 4 H PRN lidocaine 4 % topical cream (LMX) TOPICAL PRN apixaban 5 mg tab(s) (ELIQUIS) 5 mg ORAL BID glimepiride 2 mg tab(s) (AMARYL) 2 mg ORAL BID w MEALS cephALEXin 500 mg cap(s) (KEFLEX) 500 mg ORAL q 6 H Objective PHYSICAL EXAM: BP 119/61 Pulse 102 Temp (Src) 97.9 (Oral) Resp 12 Ht 6' 0 (1.83m) Wt 260 lb 2.3 oz (118.0kg) SpO2 97% BMI 35.27 kg/(m2). O2 Therapy: Room Air Physical Exam Performed GENERAL: well appearing, in no acute distress, obese EYES: PERRLA, EOMI, Conjunctiva clear MOUTH and THROAT: membranes moist NECK: supple HEART: regular rate and rhythm, S1 and S2, no murmur LUNGS: clear to auscultation; no rales or wheezes NEURO: Alert and Oriented x3; Nonfocal PSYCH: Appropriate mood; Cooperative LEFT KNEE: mild effusion (improved), diffuse joint line tenderness, no erythema or warmth RIGHT FOOT: dressing in place (reviewed picture) Lines, Drains, and Airways Line Duration Implanted Vascular Access Device Single Port 06/02/24 1500 Right Chest 1 day Reviewed lines and needs to be continued: REASONS: Intravenous antibiotics DATA: Diagnostic tests reviewed for today's visit: Most recent labs Most recent imaging Assessment/Plan Problem List Osteomyelitis of great toe of right foot (HCC) (POA: Yes) Acute pain of left knee (POA: Yes) Acute medial meniscus tear (POA: Yes) Hemarthrosis involving knee joint, left (POA: Yes) Stage 3b chronic kidney disease (HCC) (POA: Yes) Type 2 diabetes mellitus with diabetic nephropathy, without long-term current use of insulin (HCC) (POA: Yes) Hyperlipidemia, mixed (POA: Yes) Essential hypertension (POA: Yes) Coronary artery disease involving [place] coronary artery of [place] heart without angina pectoris (POA: Yes) Paroxysmal atrial fibrillation (HCC) (POA: Yes) Simple chronic bronchitis (HCC) (POA: Yes) H/O insertion of central venous access port (POA: Yes) Depression (POA: Yes) Class 2 obesity due to excess calories with body mass index (BMI) of 35.0 to 35.9 in adult (POA: Yes) Physical debility (POA: Yes) HOSPITAL COURSE: This is a 58 yo M, with a PMH of Left Knee Pain, Type 2 DM, HTN, Hyperlipidemia, CAD, Paroxysmal Atrial Fibrillation, CKD Stage IIIb, Non-Hodgkin's Lymphoma, Chronic Medi-port, Depression an (more content not included)...[facility] 06-03-2024 NoteHNO ID: [id number] Author: CLEMENTE CORTES RN Service: Care Management Author Type: Registered Nurse Type: Care Mgt Progress Note Filed: 06/03/2024 11:27 Note Text: CARE MANAGEMENT PROGRESS NOTE SERVICE DATE: 06/03/2024 SERVICE TIME: 11:25 AM LOS: 9 days Needs Prior to Discharge: To Be Determined;Other: See Comment;Precertification (Medical Clearance) EMR reviewed. Currently awaiting Precertification to be approved for [facility]. Envelope is on chart for N2N. Transport TBD. Patient thinks family should be able to take him, but may need MMT. SIGNATURE: Clemente Cortes RN PATIENT NAME: Yamilka Sharma DATE: June 03, 2024 TIME: 11:25 AM PAGER/CONTACT #: [phone] NoteHNO ID: [id number] Author: REMY PISANO DPM Service: Podiatry Author Type: Physician Type: Progress Notes Filed: 06/03/2024 13:13 Note Text: PODIATRY SURGICAL SERVICE CONSULT PROGRESS NOTE SERVICE DATE: 06/03/2024 SERVICE TIME: 9:14 AM Subjective INTERVAL HPI: Patient seen bedside resting comfortably. No new pedal complaints. S/P Right Great toe amputation (DOS 05/30/24) d/t RT great toe ulcer with distal phalanx OM. Current Facility-Administered Medications Medication Dose Route Frequency acetaminophen 1,000 mg tab(s) (TYLENOL) 1,000 mg ORAL Q6H WHILE AWAKE lidocaine 4 % 1 Patch (SALONPAS) 1 Patch TRANSDERMAL DAILY AT 9 PM And lidocaine patch - REMOVE OTHER DAILY And lidocaine - VERIFY PATCH OTHER q 8 H insulin lispro injection (rapid acting) (ADMElog) SUBCUTANEOUS w MEALS insulin lispro injection (rapid acting) (ADMElog) SUBCUTANEOUS AT BEDTIME polyethylene glycol 3350 17 g packet 17 g ORAL DAILY PRN benzocaine-menthol 1 Lozenge (CEPACOL) 1 Lozenge MUCOUS MEMBRANE (TOPICAL MOUTH AND THROAT) q 2 H PRN benzonatate 100 mg cap(s) (TESSALON PERLE) 100 mg ORAL TID PRN calcium carbonate 1,000 mg chewable tab(s) (TUMS) 1,000 mg ORAL TID PRN prochlorperazine 10 mg injection (COMPAZINE) 10 mg INTRAVENOUS q 6 H PRN melatonin 3 mg tab(s) 3 mg ORAL AT BEDTIME PRN albuterol HFA 90 mcg/actuation 2 Puff (PROVENTIL HFA, VENTOLIN HFA) 2 Puff INHALATION q 4 H PRN allopurinol 100 mg tab(s) (ZYLOPRIM) 100 mg ORAL BID DULoxetine 60 mg cap(s) (CYMBALTA) 60 mg ORAL BID gabapentin 600 mg tab(s) (NEURONTIN) 600 mg ORAL TID rosuvastatin 40 mg tab(s) (CRESTOR) 40 mg ORAL DAILY sodium bicarbonate 1,300 mg tab(s) 1,300 mg ORAL BID dextrose 40 % 15 g 15 g ORAL PRN Or glucagon 1 mg injection 1 mg INTRAMUSCULAR PRN Or dextrose 10% iv bolus 12.5 g INTRAVENOUS PRN NaCl 0.9% iv flush bag 20 mL INTRAVENOUS PRN simethicone, chewable 80 mg tab(s) (MYLICON) 80 mg ORAL QID PRN dilTIAZem CD 120 mg cap(s) (CARDIZEM CD, CARTIA XT) 120 mg ORAL DAILY metoprolol tartrate (short acting) 25 mg tab(s) (LOPRESSOR) 25 mg ORAL q 12 H furosemide 40 mg tab(s) (LASIX) 40 mg ORAL DAILY ceFAZolin iv piggyback 2 g in D5W (iso-osmotic) 100 mL (ANCEF) 2 g INTRAVENOUS q 8 H dapagliflozin propanediol 10 mg tab(s) (FARXIGA) 10 mg ORAL DAILY WITH BREAKFAST metFORMIN 500 mg tab(s) (GLUCOPHAGE) 500 mg ORAL BID w MEALS SITagliptin phosphate 50 mg tab(s) (JANUVIA) 50 mg ORAL DAILY oxyCODONE IR 10 mg tab(s) (ROXICODONE) 10 mg ORAL q 4 H PRN oxyCODONE IR 5 mg tab(s) (ROXICODONE) 5 mg ORAL q 4 H PRN lidocaine 4 % topical cream (LMX) TOPICAL PRN apixaban 5 mg tab(s) (ELIQUIS) 5 mg ORAL BID glimepiride 2 mg tab(s) (AMARYL) 2 mg ORAL BID w MEALS Objective PHYSICAL EXAM: Physical Exam Performed: GENERAL: Alert, no distress, cooperative VASC:BL Foot DP / PT pulses +2/4. CFT less than 3 seconds to digits, skin temp warm to warm from proximal to distal BL Foot NEURO: BL light touch sensation diminished especially at toe level MSK: BL 5/5 muscle strength for all pedal muscle groups in dorsiflexion, plantarflexion, inversion, and eversion DERM: RIGHT great toe amputation incision well coapted, sutures intact, normal post operative edema, more erythema, appropriate drainage, no signs of infection, no fluctuance BP 104/64 Pulse 105 Temp (Src) 97.9 (Oral) Resp 16 Ht 6' 0 (1.83m) Wt 260 lb 2.3 oz (118.0kg) SpO2 98% BMI 35.27 kg/(m2). O2 Therapy: Room Air DATA: Diagnostic tests reviewed for today's visit: Most recent labs and imaging results. CBC, Coags, BMP, Mg, Phos Recent Labs 06/03/24 0628 06/02/24 0522 06/01/24 0533 WBC -- 9.97 6.26 HB -- 10.7* 10.0* HCT -- 33.6* 31.6* PLT -- 136* 121* NA 135* 134* 135* K 4.6 4.7 4.7 CHLOR 99 98 96* CO2 28 27 30 BUN 48* 52* 48* CREAT 1.82* 2.07* 1.95* GLUC 106* 81 79 CA 9.1 8.7 9.0 Impression/Recommendations SP RT great toe amputation (DOS 05/31/24) RT great toe osteomyelitis, distal phalanx RT foot great toe pathological fracture, distal phalanx RT foot Cellulitis Ulcer, right great toe, level of bone Stage IIIB chronic kidney disease Type II diabetes with neuropathy Chart and labs reviewed 05/26/24: Uric acid 6.2, CRP: 4.9 05/16/24 US DVT BL: Negative DVT bilaterally, Right is positive for valvular incompetency in distal external illiac and femoral vein. 05/16/24 PVR RAHEL: Normal waveforms. Resting right ankle brachial index: 1.21. Resting left ankle brachial index: 1.19 05/17/24 RT foot MRI: Great toe fracture. No definitive MRI findings of osteomyelitis although bone marrow evaluation is limited by changes related to the fracture. 05/17/24 RT Foot 1st digit culture: Strep dysgalactiae, negative staph species 05/26/24 RT foot xrays: positive for OM with destructive changes of the distal phalanx. 05/26/24 RT foot 1st digit culture: No growth 05/30/24 RT great toe bone culture; NGTD, pending 05/30/24 RT great toe post lavag (more content not included)...[facility] 06-02-2024 NoteHNO ID: [id number] Author: DOUGLAS BETHEA JR, MD Service: Hospital Medicine Author Type: Physician Type: Progress Notes Filed: 06/02/2024 21:35 Note Text: DEPARTMENT OF HOSPITAL MEDICINE PROGRESS NOTE SERVICE DATE: 06/02/2024 SERVICE TIME: 9:32 PM Hospital Medicine/Primary Attending: Douglas Bethea Jr.* NIGHT AND WEEKEND COVERAGE: [employer] COVER[employer]: Days: [phone], please page attending physician. Nights: [phone], please page [place] [facility] Night coverage pager [phone]. Subjective INTERVAL HPI: Patient notes left knee pain slightly improved. No new complaints. Discussed plan. Current Facility-Administered Medications Medication Dose Route Frequency acetaminophen 1,000 mg tab(s) (TYLENOL) 1,000 mg ORAL Q6H WHILE AWAKE lidocaine 4 % 1 Patch (SALONPAS) 1 Patch TRANSDERMAL DAILY AT 9 PM And lidocaine patch - REMOVE OTHER DAILY And lidocaine - VERIFY PATCH OTHER q 8 H insulin lispro injection (rapid acting) (ADMElog) SUBCUTANEOUS w MEALS insulin lispro injection (rapid acting) (ADMElog) SUBCUTANEOUS AT BEDTIME polyethylene glycol 3350 17 g packet 17 g ORAL DAILY PRN benzocaine-menthol 1 Lozenge (CEPACOL) 1 Lozenge MUCOUS MEMBRANE (TOPICAL MOUTH AND THROAT) q 2 H PRN benzonatate 100 mg cap(s) (TESSALON PERLE) 100 mg ORAL TID PRN calcium carbonate 1,000 mg chewable tab(s) (TUMS) 1,000 mg ORAL TID PRN prochlorperazine 10 mg injection (COMPAZINE) 10 mg INTRAVENOUS q 6 H PRN melatonin 3 mg tab(s) 3 mg ORAL AT BEDTIME PRN albuterol HFA 90 mcg/actuation 2 Puff (PROVENTIL HFA, VENTOLIN HFA) 2 Puff INHALATION q 4 H PRN allopurinol 100 mg tab(s) (ZYLOPRIM) 100 mg ORAL BID DULoxetine 60 mg cap(s) (CYMBALTA) 60 mg ORAL BID gabapentin 600 mg tab(s) (NEURONTIN) 600 mg ORAL TID rosuvastatin 40 mg tab(s) (CRESTOR) 40 mg ORAL DAILY sodium bicarbonate 1,300 mg tab(s) 1,300 mg ORAL BID dextrose 40 % 15 g 15 g ORAL PRN Or glucagon 1 mg injection 1 mg INTRAMUSCULAR PRN Or dextrose 10% iv bolus 12.5 g INTRAVENOUS PRN NaCl 0.9% iv flush bag 20 mL INTRAVENOUS PRN simethicone, chewable 80 mg tab(s) (MYLICON) 80 mg ORAL QID PRN dilTIAZem CD 120 mg cap(s) (CARDIZEM CD, CARTIA XT) 120 mg ORAL DAILY metoprolol tartrate (short acting) 25 mg tab(s) (LOPRESSOR) 25 mg ORAL q 12 H furosemide 40 mg tab(s) (LASIX) 40 mg ORAL DAILY ceFAZolin iv piggyback 2 g in D5W (iso-osmotic) 100 mL (ANCEF) 2 g INTRAVENOUS q 8 H glimepiride 4 mg tab(s) (AMARYL) 4 mg ORAL BID w MEALS dapagliflozin propanediol 10 mg tab(s) (FARXIGA) 10 mg ORAL DAILY WITH BREAKFAST metFORMIN 500 mg tab(s) (GLUCOPHAGE) 500 mg ORAL BID w MEALS SITagliptin phosphate 50 mg tab(s) (JANUVIA) 50 mg ORAL DAILY oxyCODONE IR 10 mg tab(s) (ROXICODONE) 10 mg ORAL q 4 H PRN oxyCODONE IR 5 mg tab(s) (ROXICODONE) 5 mg ORAL q 4 H PRN lidocaine 4 % topical cream (LMX) TOPICAL PRN apixaban 5 mg tab(s) (ELIQUIS) 5 mg ORAL BID Objective PHYSICAL EXAM: BP 102/67 Pulse 99 Temp (Src) 98.1 (Oral) Resp 21 Ht 6' 0 (1.83m) Wt 260 lb 2.3 oz (118.0kg) SpO2 100% BMI 35.27 kg/(m2). O2 Therapy: Room Air Physical Exam Performed GENERAL: well appearing, in no acute distress, obese EYES: PERRLA, EOMI, Conjunctiva clear MOUTH and THROAT: membranes moist NECK: supple HEART: regular rate and rhythm, S1 and S2, no murmur LUNGS: clear to auscultation; no rales or wheezes NEURO: Alert and Oriented x3; Nonfocal PSYCH: Appropriate mood; Cooperative LEFT KNEE: mild effusion (improved), diffuse joint line tenderness, no erythema or warmth RIGHT FOOT: dressing in place (reviewed picture) Lines, Drains, and Airways None Reviewed lines and needs to be continued: REASONS: Intravenous antibiotics DATA: Diagnostic tests reviewed for today's visit: Most recent labs Most recent imaging Assessment/Plan Problem List Osteomyelitis of great toe of right foot (HCC) (POA: Yes) Acute pain of left knee (POA: Yes) Acute medial meniscus tear (POA: Yes) Hemarthrosis involving knee joint, left (POA: Yes) Stage 3b chronic kidney disease (HCC) (POA: Yes) Type 2 diabetes mellitus with diabetic nephropathy, without long-term current use of insulin (HCC) (POA: Yes) Hyperlipidemia, mixed (POA: Yes) Essential hypertension (POA: Yes) Coronary artery disease involving [place] coronary artery of [place] heart without angina pectoris (POA: Yes) Paroxysmal atrial fibrillation (HCC) (POA: Yes) Simple chronic bronchitis (HCC) (POA: Yes) H/O insertion of central venous access port (POA: Yes) Depression (POA: Yes) Class 2 obesity due to excess calories with body mass index (BMI) of 35.0 to 35.9 in adult (POA: Yes) Physical debility (POA: Yes) HOSPITAL COURSE: This is a 58 yo M, with a PMH of Left Knee Pain, Type 2 DM, HTN, Hyperlipidemia, CAD, Paroxysmal Atrial Fibrillation, CKD Stage IIIb, Non-Hodgkin's Lymphoma, Chronic Medi-port, Depression and Obesity, who presented to the [facility] on 05/25/24 with comp (more content not included)...[facility] [id number] NoteHNO ID: [id number] Author: MAURO LEE DPM Service: Podiatry Author Type: Physician Type: Progress Notes Filed: 06/02/2024 17:40 Note Text: PODIATRY SURGICAL SERVICE CONSULT PROGRESS NOTE SERVICE DATE: 06/02/2024 SERVICE TIME: 5:40 PM Subjective INTERVAL HPI: Patient seen bedside resting comfortably. No new pedal complaints. S/P Right Great toe amputation (DOS 05/30/24) d/t RT great toe ulcer with distal phalanx OM. Current Facility-Administered Medications Medication Dose Route Frequency acetaminophen 1,000 mg tab(s) (TYLENOL) 1,000 mg ORAL Q6H WHILE AWAKE lidocaine 4 % 1 Patch (SALONPAS) 1 Patch TRANSDERMAL DAILY AT 9 PM And lidocaine patch - REMOVE OTHER DAILY And lidocaine - VERIFY PATCH OTHER q 8 H insulin lispro injection (rapid acting) (ADMElog) SUBCUTANEOUS w MEALS insulin lispro injection (rapid acting) (ADMElog) SUBCUTANEOUS AT BEDTIME polyethylene glycol 3350 17 g packet 17 g ORAL DAILY PRN benzocaine-menthol 1 Lozenge (CEPACOL) 1 Lozenge MUCOUS MEMBRANE (TOPICAL MOUTH AND THROAT) q 2 H PRN benzonatate 100 mg cap(s) (TESSALON PERLE) 100 mg ORAL TID PRN calcium carbonate 1,000 mg chewable tab(s) (TUMS) 1,000 mg ORAL TID PRN prochlorperazine 10 mg injection (COMPAZINE) 10 mg INTRAVENOUS q 6 H PRN melatonin 3 mg tab(s) 3 mg ORAL AT BEDTIME PRN albuterol HFA 90 mcg/actuation 2 Puff (PROVENTIL HFA, VENTOLIN HFA) 2 Puff INHALATION q 4 H PRN allopurinol 100 mg tab(s) (ZYLOPRIM) 100 mg ORAL BID DULoxetine 60 mg cap(s) (CYMBALTA) 60 mg ORAL BID gabapentin 600 mg tab(s) (NEURONTIN) 600 mg ORAL TID lisinopril 5 mg tab(s) (ZESTRIL) 5 mg ORAL DAILY rosuvastatin 40 mg tab(s) (CRESTOR) 40 mg ORAL DAILY sodium bicarbonate 1,300 mg tab(s) 1,300 mg ORAL BID dextrose 40 % 15 g 15 g ORAL PRN Or glucagon 1 mg injection 1 mg INTRAMUSCULAR PRN Or dextrose 10% iv bolus 12.5 g INTRAVENOUS PRN NaCl 0.9% iv flush bag 20 mL INTRAVENOUS PRN simethicone, chewable 80 mg tab(s) (MYLICON) 80 mg ORAL QID PRN dilTIAZem CD 120 mg cap(s) (CARDIZEM CD, CARTIA XT) 120 mg ORAL DAILY metoprolol tartrate (short acting) 25 mg tab(s) (LOPRESSOR) 25 mg ORAL q 12 H furosemide 40 mg tab(s) (LASIX) 40 mg ORAL DAILY ceFAZolin iv piggyback 2 g in D5W (iso-osmotic) 100 mL (ANCEF) 2 g INTRAVENOUS q 8 H glimepiride 4 mg tab(s) (AMARYL) 4 mg ORAL BID w MEALS dapagliflozin propanediol 10 mg tab(s) (FARXIGA) 10 mg ORAL DAILY WITH BREAKFAST metFORMIN 500 mg tab(s) (GLUCOPHAGE) 500 mg ORAL BID w MEALS SITagliptin phosphate 50 mg tab(s) (JANUVIA) 50 mg ORAL DAILY oxyCODONE IR 10 mg tab(s) (ROXICODONE) 10 mg ORAL q 4 H PRN oxyCODONE IR 5 mg tab(s) (ROXICODONE) 5 mg ORAL q 4 H PRN HYDROmorphone 0.5 mg injection (DILAUDID) 0.5 mg INTRAVENOUS q 4 H PRN insulin glargine 8 Units pen (long acting) 8 Units SUBCUTANEOUS DAILY (8 AM) Objective PHYSICAL EXAM: Physical Exam Performed: GENERAL: Alert, no distress, cooperative VASC:BL Foot DP / PT pulses +2/4. CFT less than 3 seconds to digits, skin temp warm to warm from proximal to distal BL Foot NEURO: BL light touch sensation diminished especially at toe level MSK: BL 5/5 muscle strength for all pedal muscle groups in dorsiflexion, plantarflexion, inversion, and eversion DERM: RIGHT great toe amputation incision well coapted, sutures intact, normal post operative edema, more erythema, appropriate drainage, no signs of infection, no fluctuance BP 106/58 Pulse 87 Temp (Src) 98.1 (Oral) Resp 16 Ht 6' 0 (1.83m) Wt 260 lb 2.3 oz (118.0kg) SpO2 95% BMI 35.27 kg/(m2). O2 Therapy: Room Air DATA: Diagnostic tests reviewed for today's visit: Most recent labs and imaging results. CBC, Coags, BMP, Mg, Phos Recent Labs 06/02/24 0522 06/01/24 0533 05/31/24 0601 WBC 9.97 6.26 7.16 HB 10.7* 10.0* 10.3* HCT 33.6* 31.6* 32.5* PLT 136* 121* 119* NA 134* 135* 134* K 4.7 4.7 4.8 CHLOR 98 96* 100 CO2 27 30 26 BUN 52* 48* 51* CREAT 2.07* 1.95* 1.91* GLUC 81 79 121* CA 8.7 9.0 8.9 Impression/Recommendations SP RT great toe amputation (DOS 05/31/24) RT great toe osteomyelitis, distal phalanx RT foot great toe pathological fracture, distal phalanx RT foot Cellulitis Ulcer, right great toe, level of bone Stage IIIB chronic kidney disease Type II diabetes with neuropathy Chart and labs reviewed 06/02/24: 81 Glucose is stabilizing, WBC WNL 05/26/24: Uric acid 6.2, CRP: 4.9 05/16/24 US DVT BL: Negative DVT bilaterally, Right is positive for valvular incompetency in distal external illiac and femoral vein. 05/16/24 PVR RAHEL: Normal waveforms. Resting right ankle brachial index: 1.21. Resting left ankle brachial index: 1.19 05/17/24 RT foot MRI: Great toe fracture. No definitive MRI findings of osteomyelitis although bone marrow evaluation is limited by changes related to the fracture. 05/17/24 RT Foot 1st digit culture: Strep dysgalactiae, negative staph species 05/26/24 RT foot xrays: positive for OM with destructiv (more content not included)...[facility] [id number] NoteHNO ID: [id number] Author: DOUGLAS BETHEA JR, MD Service: Hospital Medicine Author Type: Physician Type: Progress Notes Filed: 06/01/2024 22:06 Note Text: DEPARTMENT OF HOSPITAL MEDICINE PROGRESS NOTE SERVICE DATE: 06/01/2024 SERVICE TIME: 10:01 PM Hospital Medicine/Primary Attending: Douglas Bethea Jr.* NIGHT AND WEEKEND COVERAGE: [place] COVERAGE: Days: [phone], please page attending physician. Nights: [phone], please page [place] [facility] Night coverage pager [phone]. Subjective INTERVAL HPI: Patient reports continued left knee pain and now aggravated right foot pain. Discussed need to discontinue prn IV Dilaudid. He is not a good candidate for Acute Rehab. Current Facility-Administered Medications Medication Dose Route Frequency acetaminophen 1,000 mg tab(s) (TYLENOL) 1,000 mg ORAL Q6H WHILE AWAKE lidocaine 4 % 1 Patch (SALONPAS) 1 Patch TRANSDERMAL DAILY AT 9 PM And lidocaine patch - REMOVE OTHER DAILY And lidocaine - VERIFY PATCH OTHER q 8 H insulin lispro injection (rapid acting) (ADMElog) SUBCUTANEOUS w MEALS insulin lispro injection (rapid acting) (ADMElog) SUBCUTANEOUS AT BEDTIME polyethylene glycol 3350 17 g packet 17 g ORAL DAILY PRN benzocaine-menthol 1 Lozenge (CEPACOL) 1 Lozenge MUCOUS MEMBRANE (TOPICAL MOUTH AND THROAT) q 2 H PRN benzonatate 100 mg cap(s) (TESSALON PERLE) 100 mg ORAL TID PRN calcium carbonate 1,000 mg chewable tab(s) (TUMS) 1,000 mg ORAL TID PRN prochlorperazine 10 mg injection (COMPAZINE) 10 mg INTRAVENOUS q 6 H PRN melatonin 3 mg tab(s) 3 mg ORAL AT BEDTIME PRN albuterol HFA 90 mcg/actuation 2 Puff (PROVENTIL HFA, VENTOLIN HFA) 2 Puff INHALATION q 4 H PRN allopurinol 100 mg tab(s) (ZYLOPRIM) 100 mg ORAL BID DULoxetine 60 mg cap(s) (CYMBALTA) 60 mg ORAL BID gabapentin 600 mg tab(s) (NEURONTIN) 600 mg ORAL TID lisinopril 5 mg tab(s) (ZESTRIL) 5 mg ORAL DAILY rosuvastatin 40 mg tab(s) (CRESTOR) 40 mg ORAL DAILY sodium bicarbonate 1,300 mg tab(s) 1,300 mg ORAL BID dextrose 40 % 15 g 15 g ORAL PRN Or glucagon 1 mg injection 1 mg INTRAMUSCULAR PRN Or dextrose 10% iv bolus 12.5 g INTRAVENOUS PRN NaCl 0.9% iv flush bag 20 mL INTRAVENOUS PRN simethicone, chewable 80 mg tab(s) (MYLICON) 80 mg ORAL QID PRN dilTIAZem CD 120 mg cap(s) (CARDIZEM CD, CARTIA XT) 120 mg ORAL DAILY metoprolol tartrate (short acting) 25 mg tab(s) (LOPRESSOR) 25 mg ORAL q 12 H furosemide 40 mg tab(s) (LASIX) 40 mg ORAL DAILY ceFAZolin iv piggyback 2 g in D5W (iso-osmotic) 100 mL (ANCEF) 2 g INTRAVENOUS q 8 H glimepiride 4 mg tab(s) (AMARYL) 4 mg ORAL BID w MEALS dapagliflozin propanediol 10 mg tab(s) (FARXIGA) 10 mg ORAL DAILY WITH BREAKFAST metFORMIN 500 mg tab(s) (GLUCOPHAGE) 500 mg ORAL BID w MEALS SITagliptin phosphate 50 mg tab(s) (JANUVIA) 50 mg ORAL DAILY oxyCODONE IR 10 mg tab(s) (ROXICODONE) 10 mg ORAL q 4 H PRN oxyCODONE IR 5 mg tab(s) (ROXICODONE) 5 mg ORAL q 4 H PRN insulin glargine 8 Units pen (long acting) 8 Units SUBCUTANEOUS DAILY (8 AM) Objective PHYSICAL EXAM: BP 98/67 Pulse 92 Temp (Src) 97.9 (Oral) Resp 16 Ht 6' 0 (1.83m) Wt 260 lb 2.3 oz (118.0kg) SpO2 94% BMI 35.27 kg/(m2). O2 Therapy: Room Air Physical Exam Performed GENERAL: well appearing, in no acute distress, obese EYES: PERRLA, EOMI, Conjunctiva clear MOUTH and THROAT: membranes moist NECK: supple HEART: regular rate and rhythm, S1 and S2, no murmur LUNGS: clear to auscultation; no rales or wheezes ABDOMEN: Soft, nontender, bowel sounds normal, no masses NEURO: Alert and Oriented x3; Nonfocal PSYCH: Appropriate mood; Cooperative LEFT KNEE: mild effusion (improved), diffuse joint line tenderness, no erythema or warmth RIGHT FOOT: dressing in place (reviewed picture) Lines, Drains, and Airways Line Duration Implanted Vascular Access Device Double Port 05/25/24 Right Chest 7 days Reviewed lines and needs to be continued: REASONS: Intravenous antibiotics DATA: Diagnostic tests reviewed for today's visit: Most recent labs Most recent imaging Assessment/Plan Problem List Osteomyelitis of great toe of right foot (HCC) (POA: Yes) Acute pain of left knee (POA: Yes) Acute medial meniscus tear (POA: Yes) Hemarthrosis involving knee joint, left (POA: Yes) Stage 3b chronic kidney disease (HCC) (POA: Yes) Type 2 diabetes mellitus with diabetic nephropathy, without long-term current use of insulin (HCC) (POA: Yes) Hyperlipidemia, mixed (POA: Yes) Essential hypertension (POA: Yes) Coronary artery disease involving [place] coronary artery of [place] heart without angina pectoris (POA: Yes) Paroxysmal atrial fibrillation (HCC) (POA: Yes) Simple chronic bronchitis (HCC) (POA: Yes) H/O insertion of central venous access port (POA: Yes) Depression (POA: Yes) Class 2 obesity due to excess calories with body mass index (BMI) of 35.0 to 35.9 in adult (POA: Yes) Physical debility (POA: Yes) HOSPITAL COURSE: This is a 5 (more content not included)...[facility] [id number] NoteHNO ID: [id number] Author: CLEMENTE CORTES RN Service: Care Management Author Type: Registered Nurse Type: Care Mgt Progress Note Filed: 06/01/2024 11:11 Note Text: CARE MANAGEMENT PROGRESS NOTE SERVICE DATE: 06/01/2024 SERVICE TIME: 10:49 AM LOS: 7 days Needs Prior to Discharge: To Be Determined;Accepting Facility;Other: See Comment;Precertification;OT/PT Evaluation (Medical Clearance) EMR reviewed. CM updated Ion Lea on DC planning. CM informed patient would need to be weaned off pain meds for 24 hours before accepting. CM informed Dr. Bethea who will speak to patient about options. Patient was previously agreeable to [facility] and [facility]. Updated PT/OT notes requested. Will need precert once decision is made. Per ID, patient will go home on PO ATB. 11:00 AM CM spoke with patient and patient feels SNF would be a better option for him. [facility] has accepted. Awaiting updated PT/OT notes to begin Precert. SIGNATURE: Clemente Cortes RN PATIENT NAME: Yamilka Sharma DATE: June 01, 2024 TIME: 10:49 AM PAGER/CONTACT #: [phone] NoteHNO ID: [id number] Author: DEEPA KNOWLES DPM Service: Podiatry Author Type: Physician Type: Progress Notes Filed: 06/01/2024 08:11 Note Text: PODIATRY SURGICAL SERVICE CONSULT PROGRESS NOTE SERVICE DATE: 06/01/2024 SERVICE TIME: 8:11am Subjective INTERVAL HPI: Patient seen bedside resting comfortably. No new pedal complaints. S/P Right Great toe amputation (DOS 05/30/24) d/t RT great toe ulcer with distal phalanx OM Current Facility-Administered Medications Medication Dose Route Frequency acetaminophen 1,000 mg tab(s) (TYLENOL) 1,000 mg ORAL Q6H WHILE AWAKE lidocaine 4 % 1 Patch (SALONPAS) 1 Patch TRANSDERMAL DAILY AT 9 PM And lidocaine patch - REMOVE OTHER DAILY And lidocaine - VERIFY PATCH OTHER q 8 H insulin lispro injection (rapid acting) (ADMElog) SUBCUTANEOUS w MEALS insulin lispro injection (rapid acting) (ADMElog) SUBCUTANEOUS AT BEDTIME polyethylene glycol 3350 17 g packet 17 g ORAL DAILY PRN benzocaine-menthol 1 Lozenge (CEPACOL) 1 Lozenge MUCOUS MEMBRANE (TOPICAL MOUTH AND THROAT) q 2 H PRN benzonatate 100 mg cap(s) (TESSALON PERLE) 100 mg ORAL TID PRN calcium carbonate 1,000 mg chewable tab(s) (TUMS) 1,000 mg ORAL TID PRN prochlorperazine 10 mg injection (COMPAZINE) 10 mg INTRAVENOUS q 6 H PRN melatonin 3 mg tab(s) 3 mg ORAL AT BEDTIME PRN albuterol HFA 90 mcg/actuation 2 Puff (PROVENTIL HFA, VENTOLIN HFA) 2 Puff INHALATION q 4 H PRN allopurinol 100 mg tab(s) (ZYLOPRIM) 100 mg ORAL BID DULoxetine 60 mg cap(s) (CYMBALTA) 60 mg ORAL BID gabapentin 600 mg tab(s) (NEURONTIN) 600 mg ORAL TID lisinopril 5 mg tab(s) (ZESTRIL) 5 mg ORAL DAILY rosuvastatin 40 mg tab(s) (CRESTOR) 40 mg ORAL DAILY sodium bicarbonate 1,300 mg tab(s) 1,300 mg ORAL BID dextrose 40 % 15 g 15 g ORAL PRN Or glucagon 1 mg injection 1 mg INTRAMUSCULAR PRN Or dextrose 10% iv bolus 12.5 g INTRAVENOUS PRN NaCl 0.9% iv flush bag 20 mL INTRAVENOUS PRN simethicone, chewable 80 mg tab(s) (MYLICON) 80 mg ORAL QID PRN dilTIAZem CD 120 mg cap(s) (CARDIZEM CD, CARTIA XT) 120 mg ORAL DAILY metoprolol tartrate (short acting) 25 mg tab(s) (LOPRESSOR) 25 mg ORAL q 12 H furosemide 40 mg tab(s) (LASIX) 40 mg ORAL DAILY ceFAZolin iv piggyback 2 g in D5W (iso-osmotic) 100 mL (ANCEF) 2 g INTRAVENOUS q 8 H glimepiride 4 mg tab(s) (AMARYL) 4 mg ORAL BID w MEALS dapagliflozin propanediol 10 mg tab(s) (FARXIGA) 10 mg ORAL DAILY WITH BREAKFAST insulin glargine 10 Units pen (long acting) 10 Units SUBCUTANEOUS DAILY (8 AM) metFORMIN 500 mg tab(s) (GLUCOPHAGE) 500 mg ORAL BID w MEALS SITagliptin phosphate 50 mg tab(s) (OCTUVIA) 50 mg ORAL DAILY oxyCODONE IR 10 mg tab(s) (ROXICODONE) 10 mg ORAL q 4 H PRN oxyCODONE IR 5 mg tab(s) (ROXICODONE) 5 mg ORAL q 4 H PRN HYDROmorphone 0.5 mg injection (DILAUDID) 0.5 mg INTRAVENOUS q 4 H PRN Objective PHYSICAL EXAM: Physical Exam Performed: GENERAL: Alert, no distress, cooperative VASC:BL Foot DP / PT pulses +2/4. CFT less than 3 seconds to digits, skin temp warm to warm from proximal to distal BL Foot NEURO: BL light touch sensation diminished especially at toe level MSK: BL 5/5 muscle strength for all pedal muscle groups in dorsiflexion, plantarflexion, inversion, and eversion DERM: RIGHT great toe amputation incision well coapted, sutures intact, normal post operative edema and erythema, appropriate drainage, no signs of infection BP 106/66 Pulse 128 Temp (Src) 98.2 (Oral) Resp 18 Ht 6' 0 (1.83m) Wt 260 lb 2.3 oz (118.0kg) SpO2 97% BMI 35.27 kg/(m2). O2 Therapy: Room Air DATA: Diagnostic tests reviewed for today's visit: Most recent labs and imaging results. CBC, Coags, BMP, Mg, Phos Recent Labs 05/31/24 0601 05/30/24 0558 05/29/24 0609 WBC 7.16 7.63 9.34 HB 10.3* 10.3* 10.6* HCT 32.5* 32.8* 33.9* PLT 119* 145* 158 NA 134* 133* 134* K 4.8 4.7 4.4 CHLOR 100 97* 98 CO2 26 28 26 BUN 51* 60* 60* CREAT 1.91* 1.98* 2.04* GLUC 121* 132* 77 CA 8.9 8.8 8.7 Impression/Recommendations SP RT great toe amputation (05/31/24) RT great toe osteomyelitis, distal phalanx RT foot great toe pathological fracture, distal phalanx RT foot Cellulitis Ulcer, right great toe, level of bone Stage IIIB chronic kidney disease Type II diabetes with neuropathy Chart and labs reviewed 05/26/24: 150 Glucose, Uric acid 6.2, CRP: 4.9, WBC: 11.23 05/16/24 US DVT BL: Negative DVT bilaterally, Right is positive for valvular incompetency in distal external illiac and femoral vein. 05/16/24 PVR RAHEL: Normal waveforms. Resting right ankle brachial index: 1.21. Resting left ankle brachial index: 1.19 05/17/24 RT foot MRI: Great toe fracture. No definitive MRI findings of osteomyelitis although bone marrow evaluation is limited by changes related to the fracture. 05/17/24 RT Foot 1st digit culture: Strep dysgalactiae, negative staph species 05/26/24 RT foot xrays: positive for OM with destructive changes of the distal phalanx. (more content not included)...[facility] [id number] NoteHNO ID: [id number] Author: DOUGLAS BETHEA JR, MD Service: Hospital Medicine Author Type: Physician Type: Progress Notes Filed: 05/31/2024 17:19 Note Text: DEPARTMENT OF HOSPITAL MEDICINE PROGRESS NOTE SERVICE DATE: 05/31/2024 SERVICE TIME: 5:12 PM Hospital Medicine/Primary Attending: Douglas Bethea Jr.* NIGHT AND WEEKEND COVERAGE: [place] COVERAGE: Days: [phone], please page attending physician. Nights: [phone], please page [place] [facility] Night coverage pager [phone]. Subjective INTERVAL HPI: Patient reports continued left knee pain. Some increased ROM noted, with pain. Also right foot pain. Current Facility-Administered Medications Medication Dose Route Frequency acetaminophen 1,000 mg tab(s) (TYLENOL) 1,000 mg ORAL Q6H WHILE AWAKE lidocaine 4 % 1 Patch (SALONPAS) 1 Patch TRANSDERMAL DAILY AT 9 PM And lidocaine patch - REMOVE OTHER DAILY And lidocaine - VERIFY PATCH OTHER q 8 H insulin lispro injection (rapid acting) (ADMElog) SUBCUTANEOUS w MEALS insulin lispro injection (rapid acting) (ADMElog) SUBCUTANEOUS AT BEDTIME polyethylene glycol 3350 17 g packet 17 g ORAL DAILY PRN benzocaine-menthol 1 Lozenge (CEPACOL) 1 Lozenge MUCOUS MEMBRANE (TOPICAL MOUTH AND THROAT) q 2 H PRN benzonatate 100 mg cap(s) (TESSALON PERLE) 100 mg ORAL TID PRN calcium carbonate 1,000 mg chewable tab(s) (TUMS) 1,000 mg ORAL TID PRN prochlorperazine 10 mg injection (COMPAZINE) 10 mg INTRAVENOUS q 6 H PRN melatonin 3 mg tab(s) 3 mg ORAL AT BEDTIME PRN albuterol HFA 90 mcg/actuation 2 Puff (PROVENTIL HFA, VENTOLIN HFA) 2 Puff INHALATION q 4 H PRN allopurinol 100 mg tab(s) (ZYLOPRIM) 100 mg ORAL BID DULoxetine 60 mg cap(s) (CYMBALTA) 60 mg ORAL BID gabapentin 600 mg tab(s) (NEURONTIN) 600 mg ORAL TID lisinopril 5 mg tab(s) (ZESTRIL) 5 mg ORAL DAILY rosuvastatin 40 mg tab(s) (CRESTOR) 40 mg ORAL DAILY sodium bicarbonate 1,300 mg tab(s) 1,300 mg ORAL BID dextrose 40 % 15 g 15 g ORAL PRN Or glucagon 1 mg injection 1 mg INTRAMUSCULAR PRN Or dextrose 10% iv bolus 12.5 g INTRAVENOUS PRN NaCl 0.9% iv flush bag 20 mL INTRAVENOUS PRN simethicone, chewable 80 mg tab(s) (MYLICON) 80 mg ORAL QID PRN dilTIAZem CD 120 mg cap(s) (CARDIZEM CD, CARTIA XT) 120 mg ORAL DAILY metoprolol tartrate (short acting) 25 mg tab(s) (LOPRESSOR) 25 mg ORAL q 12 H furosemide 40 mg tab(s) (LASIX) 40 mg ORAL DAILY ceFAZolin iv piggyback 2 g in D5W (iso-osmotic) 100 mL (ANCEF) 2 g INTRAVENOUS q 8 H glimepiride 4 mg tab(s) (AMARYL) 4 mg ORAL BID w MEALS dapagliflozin propanediol 10 mg tab(s) (FARXIGA) 10 mg ORAL DAILY WITH BREAKFAST insulin glargine 10 Units pen (long acting) 10 Units SUBCUTANEOUS DAILY (8 AM) metFORMIN 500 mg tab(s) (GLUCOPHAGE) 500 mg ORAL BID w MEALS SITagliptin phosphate 50 mg tab(s) (JANUVIA) 50 mg ORAL DAILY oxyCODONE IR 10 mg tab(s) (ROXICODONE) 10 mg ORAL q 4 H PRN oxyCODONE IR 5 mg tab(s) (ROXICODONE) 5 mg ORAL q 4 H PRN HYDROmorphone 0.5 mg injection (DILAUDID) 0.5 mg INTRAVENOUS q 4 H PRN Objective PHYSICAL EXAM: BP 98/49 Pulse 95 Temp (Src) 98.1 (Oral) Resp 18 Ht 6' 0 (1.83m) Wt 260 lb 2.3 oz (118.0kg) SpO2 97% BMI 35.27 kg/(m2). O2 Therapy: Room Air Physical Exam Performed GENERAL: well appearing, in no acute distress, obese EYES: PERRLA, EOMI, Conjunctiva clear MOUTH and THROAT: membranes moist NECK: supple HEART: regular rate and rhythm, S1 and S2, no murmur LUNGS: clear to auscultation; no rales or wheezes ABDOMEN: Soft, nontender, bowel sounds normal, no masses NEURO: Alert and Oriented x3; Nonfocal PSYCH: Appropriate mood; Cooperative LEFT KNEE: moderate effusion, diffuse joint line tenderness, no erythema or warmth RIGHT FOOT: dressing in place (reviewed picture) Lines, Drains, and Airways Line Duration Implanted Vascular Access Device Double Port 05/25/24 Right Chest 6 days Reviewed lines and needs to be continued: REASONS: Intravenous antibiotics DATA: Diagnostic tests reviewed for today's visit: Most recent labs Most recent imaging Assessment/Plan Problem List Osteomyelitis of great toe of right foot (HCC) (POA: Yes) Acute pain of left knee (POA: Yes) Acute medial meniscus tear (POA: Yes) Hemarthrosis involving knee joint, left (POA: Yes) Stage 3b chronic kidney disease (HCC) (POA: Yes) Type 2 diabetes mellitus with diabetic nephropathy, without long-term current use of insulin (HCC) (POA: Yes) Hyperlipidemia, mixed (POA: Yes) Essential hypertension (POA: Yes) Coronary artery disease involving [place] coronary artery of [place] heart without angina pectoris (POA: Yes) Paroxysmal atrial fibrillation (HCC) (POA: Yes) Simple chronic bronchitis (HCC) (POA: Yes) H/O insertion of central venous access port (POA: Yes) Depression (POA: Yes) Class 2 obesity due to excess calories with body mass index (BMI) of 35.0 to 35.9 in adult (POA: Yes) Physical debility (POA: Yes) HOSPITAL COURSE: This is a 59 (more content not included)...[facility] [id number] NoteHNO ID: [id number] Author: REMY PISANO DPM Service: Podiatry Author Type: Physician Type: Progress Notes Filed: 05/31/2024 14:01 Note Text: PODIATRY SURGICAL SERVICE CONSULT PROGRESS NOTE SERVICE DATE: 05/31/2024 SERVICE TIME: 1:31 PM Subjective INTERVAL HPI: Patient seen bedside resting comfortably. No new pedal complaints. S/P Right Great toe amputation (DOS 05/30/24) d/t RT great toe ulcer with distal phalanx OM Current Facility-Administered Medications Medication Dose Route Frequency [Held on Transfer] acetaminophen 1,000 mg tab(s) (TYLENOL) 1,000 mg ORAL Q6H WHILE AWAKE [Held on Transfer] lidocaine 4 % 1 Patch (SALONPAS) 1 Patch TRANSDERMAL DAILY AT 9 PM And [Held on Transfer] lidocaine patch - REMOVE OTHER DAILY And [Held on Transfer] lidocaine - VERIFY PATCH OTHER q 8 H [Held on Transfer] oxyCODONE IR 5 mg tab(s) (ROXICODONE) 5 mg ORAL q 6 H PRN [Held on Transfer] HYDROmorphone 0.5 mg injection (DILAUDID) 0.5 mg INTRAVENOUS q 3 H PRN [Held on Transfer] insulin lispro injection (rapid acting) (ADMElog) SUBCUTANEOUS w MEALS [Held on Transfer] insulin lispro injection (rapid acting) (ADMElog) SUBCUTANEOUS AT BEDTIME [Held on Transfer] polyethylene glycol 3350 17 g packet 17 g ORAL DAILY PRN [Held on Transfer] benzocaine-menthol 1 Lozenge (CEPACOL) 1 Lozenge MUCOUS MEMBRANE (TOPICAL MOUTH AND THROAT) q 2 H PRN [Held on Transfer] benzonatate 100 mg cap(s) (TESSALON PERLE) 100 mg ORAL TID PRN [Held on Transfer] calcium carbonate 1,000 mg chewable tab(s) (TUMS) 1,000 mg ORAL TID PRN [Held on Transfer] prochlorperazine 10 mg injection (COMPAZINE) 10 mg INTRAVENOUS q 6 H PRN [Held on Transfer] melatonin 3 mg tab(s) 3 mg ORAL AT BEDTIME PRN [Held on Transfer] albuterol HFA 90 mcg/actuation 2 Puff (PROVENTIL HFA, VENTOLIN HFA) 2 Puff INHALATION q 4 H PRN [Held on Transfer] allopurinol 100 mg tab(s) (ZYLOPRIM) 100 mg ORAL BID [Held on Transfer] DULoxetine 60 mg cap(s) (CYMBALTA) 60 mg ORAL BID [Held on Transfer] gabapentin 600 mg tab(s) (NEURONTIN) 600 mg ORAL TID [Held on Transfer] lisinopril 5 mg tab(s) (ZESTRIL) 5 mg ORAL DAILY [Held on Transfer] rosuvastatin 40 mg tab(s) (CRESTOR) 40 mg ORAL DAILY [Held on Transfer] sodium bicarbonate 1,300 mg tab(s) 1,300 mg ORAL BID [Held on Transfer] dextrose 40 % 15 g 15 g ORAL PRN Or [Held on Transfer] glucagon 1 mg injection 1 mg INTRAMUSCULAR PRN Or [Held on Transfer] dextrose 10% iv bolus 12.5 g INTRAVENOUS PRN [Held on Transfer] NaCl 0.9% iv flush bag 20 mL INTRAVENOUS PRN [Held on Transfer] simethicone, chewable 80 mg tab(s) (MYLICON) 80 mg ORAL QID PRN [Held on Transfer] dilTIAZem CD 120 mg cap(s) (CARDIZEM CD, CARTIA XT) 120 mg ORAL DAILY [Held on Transfer] metoprolol tartrate (short acting) 25 mg tab(s) (LOPRESSOR) 25 mg ORAL q 12 H [Held on Transfer] furosemide 40 mg tab(s) (LASIX) 40 mg ORAL DAILY [Held on Transfer] ceFAZolin iv piggyback 2 g in D5W (iso-osmotic) 100 mL (ANCEF) 2 g INTRAVENOUS q 8 H [Held on Transfer] oxyCODONE IR 10 mg tab(s) (ROXICODONE) 10 mg ORAL q 3 H PRN [Held on Transfer] glimepiride 4 mg tab(s) (AMARYL) 4 mg ORAL BID w MEALS [Held on Transfer] dapagliflozin propanediol 10 mg tab(s) (FARXIGA) 10 mg ORAL DAILY WITH BREAKFAST [Held on Transfer] insulin glargine 10 Units pen (long acting) 10 Units SUBCUTANEOUS DAILY (8 AM) [Held on Transfer] metFORMIN 500 mg tab(s) (GLUCOPHAGE) 500 mg ORAL BID w MEALS [Held on Transfer] SITagliptin phosphate 50 mg tab(s) (JANUVIA) 50 mg ORAL DAILY lactated ringers iv infusion 100 mL/hr INTRAVENOUS CONTINUOUS fentaNYL 50 mcg/mL 50 mcg injection (SUBLIMAZE) 50 mcg INTRAVENOUS q 5 MIN PRN oxyCODONE IR 5 mg tab(s) (ROXICODONE) 5 mg ORAL PRN ondansetron orally disintegrating 4 mg tab(s) (ZOFRAN ODT) 4 mg ORAL q 6 H PRN Or ondansetron (PF) 4 mg injection (ZOFRAN) 4 mg INTRAVENOUS q 6 H PRN Objective PHYSICAL EXAM: Physical Exam Performed: GENERAL: Alert, no distress, cooperative VASC:BL Foot DP / PT pulses +2/4. CFT less than 3 seconds to digits, skin temp warm to warm from proximal to distal BL Foot NEURO: BL light touch sensation diminished especially at toe level MSK: BL 5/5 muscle strength for all pedal muscle groups in dorsiflexion, plantarflexion, inversion, and eversion DERM: RIGHT great toe amputation incision well coapted, sutures intact, normal post operative edema and erythema, appropriate drainage, no signs of infection BP 105/65 Pulse 95 Temp (Src) 98.2 (Temporal) Resp 16 Ht 6' 0 (1.83m) Wt 260 lb 2.3 oz (118.0kg) SpO2 97% BMI 35.27 kg/(m2). O2 Therapy: Room Air DATA: Diagnostic tests reviewed for today's visit: Most recent labs and imaging results. CBC, Coags, BMP, Mg, Phos Recent Labs 05/30/24 0558 05/29/24 0609 05/28/24 0517 WBC 7.63 9.34 13.67* HB 10.3* 10.6* 11.7* HCT 32.8* 33.9* 36.9* PLT 145* 158 185 NA 133* 134* 134* K 4.7 4.4 4.5 CHLOR 97* 98 98 CO2 28 26 25 (more content not included)...[facility] [id number] Telephone encounter Note * Telephone Encounter - Criss Devi MA - 05/31/2024 8:43 AM EDT Faxed back to [phone]. Criss Devi MA [facility]08-06-2024 Miscellaneous Notes* Telephone Encounter - Criss Devi MA - 05/31/2024 8:43 AM EDT Faxed back to [phone]. Criss Devi MA * Telephone Encounter - Najma Bloom DO - 05/30/2024 10:25 AM EDT Forms filled out Najma Bloom DO * Telephone Encounter - Criss Devi MA - 05/25/2024 8:36 AM EDT [facility] Short Term Disability forms placed in Dr. Bloom green folder to be filled out. Criss Devi MA documented in this encounterW[facility]24 NoteHNO ID: [id number] Author: DOUGLAS BETHEA JR, MD Service: Hospital Medicine Author Type: Physician Type: Progress Notes Filed: 05/31/2024 09:05 Note Text: DEPARTMENT OF HOSPITAL MEDICINE PROGRESS NOTE SERVICE DATE: 05/31/2024 SERVICE TIME: 9:05 AM Hospital Medicine/Primary Attending: Douglas Bethea Jr.* NIGHT AND WEEKEND COVERAGE: [place] C[employer]: Days: [phone], please page attending physician. Nights: [phone], please page [place] [facility] Night coverage pager [phone]. Subjective INTERVAL HPI: Patient reported left knee pain continued. Had occasional sharp stabbing pain in is right first toe. No fever, SOB or chest discomfort Current Facility-Administered Medications Medication Dose Route Frequency acetaminophen 1,000 mg tab(s) (TYLENOL) 1,000 mg ORAL Q6H WHILE AWAKE lidocaine 4 % 1 Patch (SALONPAS) 1 Patch TRANSDERMAL DAILY AT 9 PM And lidocaine patch - REMOVE OTHER DAILY And lidocaine - VERIFY PATCH OTHER q 8 H oxyCODONE IR 5 mg tab(s) (ROXICODONE) 5 mg ORAL q 6 H PRN HYDROmorphone 0.5 mg injection (DILAUDID) 0.5 mg INTRAVENOUS q 3 H PRN insulin lispro injection (rapid acting) (ADMElog) SUBCUTANEOUS w MEALS insulin lispro injection (rapid acting) (ADMElog) SUBCUTANEOUS AT BEDTIME polyethylene glycol 3350 17 g packet 17 g ORAL DAILY PRN benzocaine-menthol 1 Lozenge (CEPACOL) 1 Lozenge MUCOUS MEMBRANE (TOPICAL MOUTH AND THROAT) q 2 H PRN benzonatate 100 mg cap(s) (TESSALON PERLE) 100 mg ORAL TID PRN calcium carbonate 1,000 mg chewable tab(s) (TUMS) 1,000 mg ORAL TID PRN prochlorperazine 10 mg injection (COMPAZINE) 10 mg INTRAVENOUS q 6 H PRN melatonin 3 mg tab(s) 3 mg ORAL AT BEDTIME PRN albuterol HFA 90 mcg/actuation 2 Puff (PROVENTIL HFA, VENTOLIN HFA) 2 Puff INHALATION q 4 H PRN allopurinol 100 mg tab(s) (ZYLOPRIM) 100 mg ORAL BID DULoxetine 60 mg cap(s) (CYMBALTA) 60 mg ORAL BID gabapentin 600 mg tab(s) (NEURONTIN) 600 mg ORAL TID lisinopril 5 mg tab(s) (ZESTRIL) 5 mg ORAL DAILY rosuvastatin 40 mg tab(s) (CRESTOR) 40 mg ORAL DAILY sodium bicarbonate 1,300 mg tab(s) 1,300 mg ORAL BID dextrose 40 % 15 g 15 g ORAL PRN Or glucagon 1 mg injection 1 mg INTRAMUSCULAR PRN Or dextrose 10% iv bolus 12.5 g INTRAVENOUS PRN NaCl 0.9% iv flush bag 20 mL INTRAVENOUS PRN simethicone, chewable 80 mg tab(s) (MYLICON) 80 mg ORAL QID PRN dilTIAZem CD 120 mg cap(s) (CARDIZEM CD, CARTIA XT) 120 mg ORAL DAILY metoprolol tartrate (short acting) 25 mg tab(s) (LOPRESSOR) 25 mg ORAL q 12 H furosemide 40 mg tab(s) (LASIX) 40 mg ORAL DAILY ceFAZolin iv piggyback 2 g in D5W (iso-osmotic) 100 mL (ANCEF) 2 g INTRAVENOUS q 8 H oxyCODONE IR 10 mg tab(s) (ROXICODONE) 10 mg ORAL q 3 H PRN glimepiride 4 mg tab(s) (AMARYL) 4 mg ORAL BID w MEALS dapagliflozin propanediol 10 mg tab(s) (FARXIGA) 10 mg ORAL DAILY WITH BREAKFAST insulin glargine 10 Units pen (long acting) 10 Units SUBCUTANEOUS DAILY (8 AM) metFORMIN 500 mg tab(s) (GLUCOPHAGE) 500 mg ORAL BID w MEALS SITagliptin phosphate 50 mg tab(s) (JANUVIA) 50 mg ORAL DAILY Objective PHYSICAL EXAM: BP 106/66 Pulse 128 Temp (Src) 98.2 (Oral) Resp 18 Ht 6' 0 (1.83m) Wt 260 lb 2.3 oz (118.0kg) SpO2 97% BMI 35.27 kg/(m2). O2 Therapy: Room Air Physical Exam Performed GENERAL: well appearing, in no acute distress, obese EYES: PERRLA, EOMI, Conjunctiva clear MOUTH and THROAT: membranes moist NECK: supple HEART: regular rate and rhythm, S1 and S2, no murmur LUNGS: clear to auscultation; no rales or wheezes ABDOMEN: Soft, nontender, bowel sounds normal, no masses NEURO: Alert and Oriented x3; Nonfocal PSYCH: Appropriate mood; Cooperative LEFT KNEE: moderate effusion, diffuse joint line tenderness, no erythema or warmth RIGHT FOOT: dressing in place Lines, Drains, and Airways Line Duration Implanted Vascular Access Device Double Port 05/25/24 Right Chest 6 days Reviewed lines and needs to be continued: REASONS: Intravenous antibiotics DATA: Diagnostic tests reviewed for today's visit: Most recent labs Most recent imaging Assessment/Plan Problem List Osteomyelitis of great toe of right foot (HCC) (POA: Yes) Acute pain of left knee (POA: Yes) Acute medial meniscus tear (POA: Yes) Hemarthrosis involving knee joint, left (POA: Yes) Stage 3b chronic kidney disease (HCC) (POA: Yes) Type 2 diabetes mellitus with diabetic nephropathy, without long-term current use of insulin (HCC) (POA: Yes) Hyperlipidemia, mixed (POA: Yes) Essential hypertension (POA: Yes) Coronary artery disease involving [place] coronary artery of new[place] heart without angina pectoris (POA: Yes) Paroxysmal atrial fibrillation (HCC) (POA: Yes) Simple chronic bronchitis (HCC) (POA: Yes) H/O insertion of central venous access port (POA: Yes) Depression (POA: Yes) Class 2 obesity due to excess calories with body mass index (BMI) of 35.0 to 35.9 in adult (POA: Yes) Physical debility (POA: Yes) HOSPITAL COURSE (more content not included)...[facility] [id number] NoteHNO ID: [id number] Author: CARLOS PATEL RN Service: Care Management Author Type: Registered Nurse Type: Care Mgt Progress Note Filed: 05/30/2024 11:14 Note Text: CARE MANAGEMENT PROGRESS NOTE SERVICE DATE: 05/30/2024 SERVICE TIME: 10:54 AM LOS: 5 days Needs Prior to Discharge: Accepting Facility;Insurance Authorization;Other: See Comment (medical clearance) EMR reviewed OR today for RIGHT hallux amputation Per ID plan for PICC IV ABX on DC based on cxs PT/OT rec Acute Rehab. [facility] reviewing would like to see updated therapy notes post op prior to confirming they will accept CM met with patient and spouse to discuss secondary option if [facility] unable to accept or insurance denies. Patient agrees with referrals to [facility] and [facility] Will need updated therapy notes post op/ PRECERT SIGNATURE: Carlos Patel RN PATIENT NAME: Yamilka Sharma DATE: May 30, 2024 TIME: 10:54 AM PAGER/CONTACT #: [phone] [place], [place] [id number] Telephone encounter Note* Telephone Encounter - Najma Bloom DO - 05/30/2024 10:25 AM EDT Forms filled out Najma Bloom DO [facility]08-04-2024 NoteHNO ID: [id number] Author: BIJAN AVERY MD Service: Hospital Medicine Author Type: Physician Type: Progress Notes Filed: 05/29/2024 15:49 Note Text: DEPARTMENT OF HOSPITAL MEDICINE PROGRESS NOTE SERVICE DATE: 05/29/2024 SERVICE TIME: 2:49 PM Hospital Medicine/Primary Attending: Bijan Avery MD NIGHT AND WEEKEND COVERAGE: [place] COVER[employer]: Nights: [phone], please page [place] [facility] Night coverage pager [phone]. Probable discharge: TBD (tentative date of surgery on toe for Thursday) Disposition: [facility] awaiting precertification Consultants: Dr. Escobedo for podiatry Dr. Brown for orthopedics Dr. Polanco for nephrology Dr. DEL VALLE for infectious disease PROCEDURES: 05/27 - Left knee aspiration 05/30-surgery planned by podiatry debridement and probable amputation of right great toe Anticoagulation: Prior to admission: Apixaban Current: Apixaban on hold last dose a.m. 05/25 Smoking history: [id number] history of smoking quit 2014 ASSESSMENT/PLAN Reason for Admission: Left knee joint effusion seen on x-ray on the given Zosyn and vancomycin in the ED discharge yesterday from [facility]. Reviewing the ED visit from 1724 vancomycin and Zosyn he had a fractured toe on MRI with probably an abrasion the left knee was a source of pain and his other symptoms sound like he may have had lactic acidosis causing them but his lactate was 1.4 INTERVAL COURSE OF EVENTS: 05/28 blood culture x 2 pending Recurrent hyponatremia which is a chronic problem WBC normalized with antibiotics glucose above goal discussed with patient and he is anorexic today did take glargine 30 units Ancef for group C's streptococcal wound infection For surgery early Thursday afternoon changed insulin for Thursday only Morning Lantus decreased from 30 units => 10 units Metformin, Januvia, Farxiga and sliding scale insulin to resume on morning 05/31 Patient Active Hospital Problem List: Osteomyelitis right great toe IV Ancef surgery scheduled 05/30 organism-group C streptococcus left medial meniscus posterior lateral horn torn acutely MRI No fracture. Medial meniscal tear. Large joint effusion with mild synovitis. Nonspecific mild edema like along the fascial planes of the distal quadriceps and proximal posterior compartment calf musculature which may be secondary to leakage of fluid from significant joint effusion. 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 2. Essential hypertension POA: Yes Continue current medications when blood pressure greater than 130 systolic 3. Type 2 diabetes mellitus (HCC) POA: Yes-adjustments made for surgery on 8/5 Farxiga 10 mg daily with breakfast Amaryl 4 mg twice daily with meals Glargine insulin 30 units at 8 AM daily Sliding scale 1 when he takes meals and at bedtime 4. Simple chronic bronchitis (HCC) POA: Yes Patient stable with no pulmonary symptoms at this time 5. Atrial fibrillation (HCC) POA: Yes Paroxysmal on apixaban and diltiazem but short acting metoprolol no need to monitor unless becomes tachycardic 6. Stage 3b chronic kidney disease (HCC) POA: Yes Consult to nephrology he previously had obstructive uropathy with bilateral hydronephrosis. He is on sodium bicarb chronically and gets hyperkalemic at times OBJECTIVE EK05/11/2024 tachycardia unclear origin P waves suggesting junctional tachycardia as they are at the end of the T wave Minor nonspecific ST-T changes with inferior Q waves with left axis suggestive of prior inferior PA age undetermined ECHOCARDIOGRAM: 01/14/2023 The left ventricle is dilated. There is no left ventricular hypertrophy. Left ventricular systolic function is normal. EF = 65 ? 5% (visual est.) Normal left ventricular diastolic function. - The right ventricle is normal in size. Right ventricular systolic function is normal. - There are no significant valvular abnormalities. Uric acid-05/26/2024- 6.2 Procalcitonin: 05/12/2024 2.23 => 05/26/2024 0.21 Recent Labs 05/26/24 0537 05/18/24 0605 05/12/24 0817 CRP 4.9* 4.0* 19.5* Recent Labs 05/29/24 0609 05/28/24 0517 05/27/24 0623 05/12/24 0817 05/11/24 1927 WBC 9.34 13.67* 11.27* < > 9.56 RBC 4.17* 4.52 4.55 < > 4.85 HB 10.6* 11.7* 11.7* < > 13.1 HCT 33.9* 36.9* 37.0* < > 39.9 PLT 158 185 182 < > 120* MCV 81.3 81.6 81.3 < > 82.3 MCH 25.4* 25.9* 25.7* < > 27.0 MPV 11.1 10.6 10.7 < > 10.8 ABSNEUT -- -- -- -- 8.12* NEUTP -- -- -- -- 84.9 LYMPHP -- -- -- -- 5.8 MONOP -- -- -- -- 8.7 EODINP -- -- -- -- 0.1 < > = values in this interval not displayed. Recent Labs 05/29/24 0609 05/28/24 0517 05/27/24 0623 05/17/24 0534 05/16/24 0503 05/15/24 0434 05/14/24 0513 GLUC 77 89 158* < > 171* 223* 192* NA 134* 134* 134* < > 133* 131* 131* K 4.4 4.5 4.7 < > 4.3 4.8 4.3 CHLOR 98 98 97* < > 96* 95* 95* CO2 26 25 26 < > 25 23 24 CREAT 2.04* 1.93* 2.10* < > 1.79* 1.89* 1.90* BUN 60 (more content not included)...[facility] [id number] NoteHNO ID: [id number] Author: DEEPA KNOWLES DPM Service: Podiatry Author Type: Physician Type: Progress Notes Filed: 05/29/2024 12:04 Note Text: PODIATRY SURGICAL SERVICE CONSULT PROGRESS NOTE SERVICE DATE: 05/29/2024 SERVICE TIME: 10:16 AM Subjective INTERVAL HPI: Patient seen bedside resting comfortably. No new pedal complaints. Plans for RIGHT hallux amputation tomorrow with Dr. Cherelle Campos. NPO midnight. RT great toe ulcer with distal phalanx OM Current Facility-Administered Medications Medication Dose Route Frequency acetaminophen 1,000 mg tab(s) (TYLENOL) 1,000 mg ORAL Q6H WHILE AWAKE lidocaine 4 % 1 Patch (SALONPAS) 1 Patch TRANSDERMAL DAILY AT 9 PM And lidocaine patch - REMOVE OTHER DAILY And lidocaine - VERIFY PATCH OTHER q 8 H diclofenac 1 % 4 g topical gel (VOLTAREN) 4 g TOPICAL QID oxyCODONE IR 5 mg tab(s) (ROXICODONE) 5 mg ORAL q 6 H PRN HYDROmorphone 0.5 mg injection (DILAUDID) 0.5 mg INTRAVENOUS q 3 H PRN insulin lispro injection (rapid acting) (ADMElog) SUBCUTANEOUS w MEALS insulin lispro injection (rapid acting) (ADMElog) SUBCUTANEOUS AT BEDTIME polyethylene glycol 3350 17 g packet 17 g ORAL DAILY PRN benzocaine-menthol 1 Lozenge (CEPACOL) 1 Lozenge MUCOUS MEMBRANE (TOPICAL MOUTH AND THROAT) q 2 H PRN benzonatate 100 mg cap(s) (TESSALON PERLE) 100 mg ORAL TID PRN calcium carbonate 1,000 mg chewable tab(s) (TUMS) 1,000 mg ORAL TID PRN prochlorperazine 10 mg injection (COMPAZINE) 10 mg INTRAVENOUS q 6 H PRN melatonin 3 mg tab(s) 3 mg ORAL AT BEDTIME PRN albuterol HFA 90 mcg/actuation 2 Puff (PROVENTIL HFA, VENTOLIN HFA) 2 Puff INHALATION q 4 H PRN allopurinol 100 mg tab(s) (ZYLOPRIM) 100 mg ORAL BID DULoxetine 60 mg cap(s) (CYMBALTA) 60 mg ORAL BID dapagliflozin propanediol 10 mg tab(s) (FARXIGA) 10 mg ORAL DAILY WITH BREAKFAST gabapentin 600 mg tab(s) (NEURONTIN) 600 mg ORAL TID glimepiride 4 mg tab(s) (AMARYL) 4 mg ORAL BID w MEALS insulin glargine 30 Units pen (long acting) 30 Units SUBCUTANEOUS DAILY (8 AM) lisinopril 5 mg tab(s) (ZESTRIL) 5 mg ORAL DAILY metFORMIN 500 mg tab(s) (GLUCOPHAGE) 500 mg ORAL BID w MEALS rosuvastatin 40 mg tab(s) (CRESTOR) 40 mg ORAL DAILY sodium bicarbonate 1,300 mg tab(s) 1,300 mg ORAL BID dextrose 40 % 15 g 15 g ORAL PRN Or glucagon 1 mg injection 1 mg INTRAMUSCULAR PRN Or dextrose 10% iv bolus 12.5 g INTRAVENOUS PRN NaCl 0.9% iv flush bag 20 mL INTRAVENOUS PRN simethicone, chewable 80 mg tab(s) (MYLICON) 80 mg ORAL QID PRN dilTIAZem CD 120 mg cap(s) (CARDIZEM CD, CARTIA XT) 120 mg ORAL DAILY metoprolol tartrate (short acting) 25 mg tab(s) (LOPRESSOR) 25 mg ORAL q 12 H furosemide 40 mg tab(s) (LASIX) 40 mg ORAL DAILY ceFAZolin iv piggyback 2 g in D5W (iso-osmotic) 100 mL (ANCEF) 2 g INTRAVENOUS q 8 H SITagliptin phosphate 50 mg tab(s) (JANUVIA) 50 mg ORAL DAILY Objective PHYSICAL EXAM: Physical Exam Performed: GENERAL: Alert, no distress, cooperative VASC:BL Foot DP / PT pulses +2/4. CFT less than 3 seconds to digits, skin temp warm to warm from proximal to distal BL Foot NEURO: BL light touch sensation diminished especially at toe level MSK: BL 5/5 muscle strength for all pedal muscle groups in dorsiflexion, plantarflexion, inversion, and eversion DERM: RIGHT foot 1st digit, distal medial aspect wound measures 0.4x0.4x0.6cm with fibrotic slough noted and devitalized tissue, no surrounding callus, surrounding edema and mild erythema, minimal purulence expressed, swelling noted to great toe, positive probe to bone, mild malodor. Into level of BONE Loosened RIGHT hallux nail with purulent drainage underneath. BP 104/57 Pulse 100 Temp (Src) 98.2 (Oral) Resp 16 Ht 6' 0 (1.83m) Wt 260 lb 2.3 oz (118.0kg) SpO2 98% BMI 35.27 kg/(m2). O2 Therapy: Room Air DATA: Diagnostic tests reviewed for today's visit: Most recent labs and imaging results. CBC, Coags, BMP, Mg, Phos Recent Labs 05/29/24 0609 05/28/24 0517 05/27/24 0623 WBC 9.34 13.67* 11.27* HB 10.6* 11.7* 11.7* HCT 33.9* 36.9* 37.0* PLT 158 185 182 NA 134* 134* 134* K 4.4 4.5 4.7 CHLOR 98 98 97* CO2 26 25 26 BUN 60* 61* 65* CREAT 2.04* 1.93* 2.10* GLUC 77 89 158* CA 8.7 8.5 9.3 Impression/Recommendations RT great toe osteomyelitis, distal phalanx RT foot great toe pathological fracture, distal phalanx RT foot Cellulitis Ulcer, right great toe, level of bone Stage IIIB chronic kidney disease Type II diabetes with neuropathy Chart and labs reviewed 05/26/24: 150 Glucose, Uric acid 6.2, CRP: 4.9, WBC: 11.23 05/26/24 RT foot xrays: positive for OM with destructive changes of the distal phalanx. 05/26/24 RT foot 1st digit culture: pending 05/17/24 RT foot MRI: Great toe fracture. No definitive MRI findings of osteomyelitis although bone marrow evaluation is limited by changes related to the fracture. 05/17/24 RT Foot 1st digit culture: Strep dysgalactiae, negative staph species (more content not included)...[facility] [id number] NoteHNO ID: [id number] Author: BIJAN AVERY MD Service: Hospital Medicine Author Type: Physician Type: Progress Notes Filed: 05/28/2024 17:50 Note Text: DEPARTMENT OF [facility] MEDICINE PROGRESS NOTE SERVICE DATE: 05/28/2024 SERVICE TIME: 5:21 PM Hospital Medicine/Primary Attending: Bijan Avery MD NIGHT AND WEEKEND COVERAGE: [place] COVER[employer]: Nights: [phone], please page [facility] Night coverage pager [phone]. Probable discharge: TBD (tentative date of surgery on toe for Thursday) Disposition: To be determined Consultants: Dr. Escobedo for podiatry Dr. Brown for orthopedics Dr. Polanco for nephrology Dr. DEL VALLE for infectious disease PROCEDURES: 05/27 - Left knee aspiration 05/30-surgery planned by podiatry Anticoagulation: Prior to admission: Apixaban Current: Apixaban on hold last dose a.m. 05/25 Smoking history: [id number] history of smoking quit 2014 ASSESSMENT/PLAN Reason for Admission: Left knee joint effusion seen on x-ray on the given Zosyn and vancomycin in the ED discharge yesterday from [facility]. Reviewing the ED visit from 1724 vancomycin and Zosyn he had a fractured toe on MRI with probably an abrasion the left knee was a source of pain and his other symptoms sound like he may have had lactic acidosis causing them but his lactate was 1.4 INTERVAL COURSE OF EVENTS: Consults discussion with Dr. Lee for podiatry and starting surgery Procalcitonin slightly higher than at discharge and CRP rising Holding blood pressure medications again for today Renal panel Recurrent hyponatremia which is a chronic problem palpation WBC again slightly elevated 11.2 Glucose above goal discussed with patient and he is anorexic today did take glargine 30 units Acute abdominal pain like he had when he took Biaxin with the ceftriaxone is refusing ceftriaxone currently. Dr. Del Valle is ordering Ancef or group C's prep wound infection and rare coagulase-negative staph Patient Active Hospital Problem List: 1. Knee pain Orthopedics on consultation-seen [place] with admission from [place]. He presented with sepsis at [facility] with left knee pain now has effusion with low cell count he had hemarthrosis and is on apixaban had toe trauma with fracture of the great toe-on my exam most tender over the medial plateau exquisitely tender MRI No fracture. Medial meniscal tear. Large joint effusion with mild synovitis. Nonspecific mild edema like along the fascial planes of the distal quadriceps and proximal posterior compartment calf musculature which may be secondary to leakage of fluid from significant joint effusion. 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 2. Essential hypertension POA: Yes Continue current medications when blood pressure greater than 130 systolic 3. Type 2 diabetes mellitus (HCC) POA: Yes Farxiga 10 mg daily with breakfast Amaryl 4 mg twice daily with meals Glargine insulin 30 units at 8 AM daily Sliding scale 1 when he takes meals and at bedtime 4. Simple chronic bronchitis (HCC) POA: Yes Patient stable with no pulmonary symptoms at this time 5. Atrial fibrillation (HCC) POA: Yes Paroxysmal on apixaban and diltiazem but short acting metoprolol no need to monitor unless becomes tachycardic 6. Stage 3b chronic kidney disease (HCC) POA: Yes Consult to nephrology he previously had obstructive uropathy with bilateral hydronephrosis. He is on sodium bicarb chronically and gets hyperkalemic at times OBJECTIVE EK05/11/2024 tachycardia unclear origin P waves suggesting junctional tachycardia as they are at the end of the T wave Minor nonspecific ST-T changes with inferior Q waves with left axis suggestive of prior inferior PA age undetermined ECHOCARDIOGRAM: 01/14/2023 The left ventricle is dilated. There is no left ventricular hypertrophy. Left ventricular systolic function is normal. EF = 65 ? 5% (visual est.) Normal left ventricular diastolic function. - The right ventricle is normal in size. Right ventricular systolic function is normal. - There are no significant valvular abnormalities. Uric acid-05/26/2024- 6.2 Procalcitonin: 05/12/2024 2.23 => 05/26/2024 0.21 Recent Labs 05/26/24 0537 05/18/24 0605 05/12/24 0817 CRP 4.9* 4.0* 19.5* Recent Labs 05/28/24 0517 05/27/24 0623 05/26/24 0537 05/12/24 0817 05/11/24 1927 WBC 13.67* 11.27* 11.23* < > 9.56 RBC 4.52 4.55 4.42 < > 4.85 HB 11.7* 11.7* 11.5* < > 13.1 HCT 36.9* 37.0* 36.4* < > 39.9 PLT 185 182 172 < > 120* MCV 81.6 81.3 82.4 < > 82.3 MCH 25.9* 25.7* 26.0 < > 27.0 MPV 10.6 10.7 10.0 < > 10.8 ABSNEUT -- -- -- -- 8.12* NEUTP -- -- -- -- 84.9 LYMPHP -- -- -- -- 5.8 MONOP -- -- -- -- 8.7 EODINP -- -- -- -- 0.1 < > = values in this interval not displayed. Recent Labs 05/28/24 0517 05/27/24 0623 05/26/24 0537 05/17/24 0534 05/16/24 0503 05/15/24 0434 05/14/24 0513 GLUC 89 158* 139* < (more content not included)...[facility] [id number] Note HNO ID: [id number] Author: DEEPA KNOWLES DPM Service: Podiatry Author Type: Physician Type: Progress Notes Filed: 05/28/2024 11:39 Note Text: PODIATRY SURGICAL SERVICE CONSULT PROGRESS NOTE SERVICE DATE: 05/28/2024 SERVICE TIME: 10:14 AM Subjective INTERVAL HPI:Patient seen bedside resting comfortably. No new pedal complaints. RT great toe ulcer with distal phalanx OM Current Facility-Administered Medications Medication Dose Route Frequency acetaminophen 1,000 mg tab(s) (TYLENOL) 1,000 mg ORAL Q6H WHILE AWAKE lidocaine 4 % 1 Patch (SALONPAS) 1 Patch TRANSDERMAL DAILY AT 9 PM And lidocaine patch - REMOVE OTHER DAILY And lidocaine - VERIFY PATCH OTHER q 8 H diclofenac 1 % 4 g topical gel (VOLTAREN) 4 g TOPICAL QID oxyCODONE IR 5 mg tab(s) (ROXICODONE) 5 mg ORAL q 6 H PRN HYDROmorphone 0.5 mg injection (DILAUDID) 0.5 mg INTRAVENOUS q 3 H PRN insulin lispro injection (rapid acting) (ADMElog) SUBCUTANEOUS w MEALS insulin lispro injection (rapid acting) (ADMElog) SUBCUTANEOUS AT BEDTIME polyethylene glycol 3350 17 g packet 17 g ORAL DAILY PRN benzocaine-menthol 1 Lozenge (CEPACOL) 1 Lozenge MUCOUS MEMBRANE (TOPICAL MOUTH AND THROAT) q 2 H PRN benzonatate 100 mg cap(s) (TESSALON PERLE) 100 mg ORAL TID PRN calcium carbonate 1,000 mg chewable tab(s) (TUMS) 1,000 mg ORAL TID PRN prochlorperazine 10 mg injection (COMPAZINE) 10 mg INTRAVENOUS q 6 H PRN melatonin 3 mg tab(s) 3 mg ORAL AT BEDTIME PRN albuterol HFA 90 mcg/actuation 2 Puff (PROVENTIL HFA, VENTOLIN HFA) 2 Puff INHALATION q 4 H PRN allopurinol 100 mg tab(s) (ZYLOPRIM) 100 mg ORAL BID DULoxetine 60 mg cap(s) (CYMBALTA) 60 mg ORAL BID dapagliflozin propanediol 10 mg tab(s) (FARXIGA) 10 mg ORAL DAILY WITH BREAKFAST gabapentin 600 mg tab(s) (NEURONTIN) 600 mg ORAL TID glimepiride 4 mg tab(s) (AMARYL) 4 mg ORAL BID w MEALS insulin glargine 30 Units pen (long acting) 30 Units SUBCUTANEOUS DAILY (8 AM) lisinopril 5 mg tab(s) (ZESTRIL) 5 mg ORAL DAILY metFORMIN 500 mg tab(s) (GLUCOPHAGE) 500 mg ORAL BID w MEALS rosuvastatin 40 mg tab(s) (CRESTOR) 40 mg ORAL DAILY sodium bicarbonate 1,300 mg tab(s) 1,300 mg ORAL BID dextrose 40 % 15 g 15 g ORAL PRN Or glucagon 1 mg injection 1 mg INTRAMUSCULAR PRN Or dextrose 10% iv bolus 12.5 g INTRAVENOUS PRN NaCl 0.9% iv flush bag 20 mL INTRAVENOUS PRN simethicone, chewable 80 mg tab(s) (MYLICON) 80 mg ORAL QID PRN dilTIAZem CD 120 mg cap(s) (CARDIZEM CD, CARTIA XT) 120 mg ORAL DAILY metoprolol tartrate (short acting) 25 mg tab(s) (LOPRESSOR) 25 mg ORAL q 12 H furosemide 40 mg tab(s) (LASIX) 40 mg ORAL DAILY ceFAZolin iv piggyback 2 g in D5W (iso-osmotic) 100 mL (ANCEF) 2 g INTRAVENOUS q 8 H SITagliptin phosphate 50 mg tab(s) (JANUVIA) 50 mg ORAL DAILY Objective PHYSICAL EXAM: Physical Exam Performed: GENERAL: Alert, no distress, cooperative VASC:BL Foot DP / PT pulses +2/4. CFT less than 3 seconds to digits, skin temp warm to warm from proximal to distal BL Foot NEURO: BL light touch sensation diminished especially at toe level MSK: BL 5/5 muscle strength for all pedal muscle groups in dorsiflexion, plantarflexion, inversion, and eversion DERM: RIGHT foot 1st digit, distal medial aspect wound measures 0.4x0.4x0.6cm with fibrotic slough noted and devitalized tissue, no surrounding callus, surrounding edema and mild erythema, minimal purulence expressed, swelling noted to great toe, positive probe to bone, mild malodor. Into level of BONE Loosened RIGHT hallux nail with purulent drainage underneath. BP 122/70 Pulse 103 Temp (Src) 97.7 (Oral) Resp 16 Ht 6' 0 (1.83m) Wt 259 lb 4.2 oz (117.6kg) SpO2 97% BMI 35.15 kg/(m2). O2 Therapy: Room Air DATA: Diagnostic tests reviewed for today's visit: Most recent labs and imaging results. CBC, Coags, BMP, Mg, Phos Recent Labs 05/28/24 0517 05/27/24 0623 05/26/24 0537 WBC 13.67* 11.27* 11.23* HB 11.7* 11.7* 11.5* HCT 36.9* 37.0* 36.4* PLT 185 182 172 NA 134* 134* 136 K 4.5 4.7 4.5 CHLOR 98 97* 98 CO2 25 26 28 BUN 61* 65* 60* CREAT 1.93* 2.10* 2.21* GLUC 89 158* 139* CA 8.5 9.3 9.1 Impression/Recommendations RT great toe osteomyelitis, distal phalanx RT foot great toe pathological fracture, distal phalanx RT foot Cellulitis Ulcer, right great toe, level of bone Stage IIIB chronic kidney disease Type II diabetes with neuropathy Chart and labs reviewed 05/26/24: 150 Glucose, Uric acid 6.2, CRP: 4.9, WBC: 11.23 05/26/24 RT foot xrays: positive for OM with destructive changes of the distal phalanx. 05/26/24 RT foot 1st digit culture: pending 05/17/24 RT foot MRI: Great toe fracture. No definitive MRI findings of osteomyelitis although bone marrow evaluation is limited by changes related to the fracture. 05/17/24 RT Foot 1st digit culture: Strep dysgalactiae, negative staph species 05/16/24 US DVT BL: Negative DVT bilaterally, Right is positive for valvular incompet (more content not included)...[facility] [id number] NoteHNO ID: [id number] Author: KARL MATOS PA-C Service: Orthopaedic Surgery Author Type: Physician Palm And Back Forger Type: Plan of Care Filed: 05/27/2024 12:37 Note Text: Orthopaedic Plan of Care: Left knee MRI reviewed; negative for occult fracture, positive for tear in the posterior horn and body of the medial meniscus No plans for acute orthopaedic surgical intervention Left knee corticosteroid injection contraindicated at this time due to active infection of right foot with plans for amputation of right great toe 2/2 osteomyelitis with podiatry on 05/30/24. Left knee aspiration performed for therapeutic purposes. Procedure documented below. WBAT LLE, PT/OT, pain control per primary team. Patient can follow up with ortho sports regarding meniscal tear post discharge. PROCEDURE- JOINT ASPIRATION Joint Sites: left knee The proposed risks versus benefits of local anesthetic and aspiration were discussed in detail. All questions were answered. The patient verbalizes understanding and consented to the procedure. The procedure was verified with the patient, including the correct site, and confirmation with both the patient and learning support services director. The procedure site was prepped in the usual sterile fashion with betadine and chlorhexidine. [place] Protocol Safety Checklist completed. Under sterile technique following verbal consent the skin was anesthestized with 3 cc 1% lidocaine and the patient underwent a left knee aspiration. We aspirated 90 cc of synovial fluid from the left knee. The synovial fluid was initially yellow and normal appearing and gradually became red. The patient tolerated the procedure well without complications. The aspiration was performed through a superior-lateral portal to the knee without incident. Bandaid, light PAVEL wrap, and ice applied to knee. SF sent to lab for analysis, crystals, culture and gramstain. Verbal instructions on post-aspiration care were given. Discussed with Dr. Teja RN, and patient Eliot Matos PA-C [facility] SurgeryOhio[facility] HospitalUzwgvmoy39-26-3423 NoteHNO ID: [id number] Author: BIJAN AVERY MD Service: Hospital Medicine Author Type: Physician Type: Progress Notes Filed: 05/27/2024 10:24 Note Text: DEPARTMENT OF HOSPITAL MEDICINE PROGRESS NOTE SERVICE DATE: 05/27/2024 SERVICE TIME: 9:47 AM Hospital Medicine/Primary Attending: Bijan Avery MD NIGHT AND WEEKEND COVERAGE: [place] COVERAGE: Nights: [phone], please page [facility] Hospital[facility] Night coverage pager [phone]. Probable discharge: TBD (tentative date of surgery on toe for Thursday) Disposition: To be determined Consultants: Dr. Escobedo for podiatry Dr. Brown for orthopedics Dr. Polanco for nephrology Dr. DEL VALLE for infectious disease PROCEDURES: NONE Anticoagulation: Prior to admission: Apixaban Current: Apixaban on hold last dose a.m. 05/25 Smoking history: [id number] history of smoking quit 2014 ASSESSMENT/PLAN Reason for Admission: Left knee joint effusion seen on x-ray on the given Zosyn and vancomycin in the ED discharge yesterday from [place]. Reviewing the ED visit from 1724 vancomycin and Zosyn he had a fractured toe on MRI with probably an abrasion the left knee was a source of pain and his other symptoms sound like he may have had lactic acidosis causing them but his lactate was 1.4 INTERVAL COURSE OF EVENTS: Consults discussion with Dr. Lee for podiatry and starting surgery Procalcitonin slightly higher than at discharge and CRP rising Holding blood pressure medications again for today Renal panel Recurrent hyponatremia which is a chronic problem palpation WBC again slightly elevated 11.2 Glucose above goal discussed with patient and he is anorexic today did take glargine 30 units Acute abdominal pain like he had when he took Biaxin with the ceftriaxone is refusing ceftriaxone currently. Dr. Del Valle is ordering Ancef or group C's prep wound infection and rare coagulase-negative staph Patient Active Hospital Problem List: 1. Knee pain Orthopedics on consultation-seen [place] with admission from [facility]. He presented with sepsis at [facility] with left knee pain now has effusion with low cell count he had hemarthrosis and is on apixaban had toe trauma with fracture of the great toe-on my exam most tender over the medial plateau exquisitely tender MRI No fracture. Medial meniscal tear. Large joint effusion with mild synovitis. Nonspecific mild edema like along the fascial planes of the distal quadriceps and proximal posterior compartment calf musculature which may be secondary to leakage of fluid from significant joint effusion. 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 2. Essential hypertension POA: Yes Continue current medications when blood pressure greater than 130 systolic 3. Type 2 diabetes mellitus (HCC) POA: Yes Farxiga 10 mg daily with breakfast Amaryl 4 mg twice daily with meals Glargine insulin 30 units at 8 AM daily Sliding scale 1 when he takes meals and at bedtime 4. Simple chronic bronchitis (HCC) POA: Yes Patient stable with no pulmonary symptoms at this time 5. Atrial fibrillation (HCC) POA: Yes Paroxysmal on apixaban and diltiazem but short acting metoprolol no need to monitor unless becomes tachycardic 6. Stage 3b chronic kidney disease (HCC) POA: Yes Consult to nephrology he previously had obstructive uropathy with bilateral hydronephrosis. He is on sodium bicarb chronically and gets hyperkalemic at times OBJECTIVE EK05/11/2024 tachycardia unclear origin P waves suggesting junctional tachycardia as they are at the end of the T wave Minor nonspecific ST-T changes with inferior Q waves with left axis suggestive of prior inferior PA age undetermined ECHOCARDIOGRAM: 01/14/2023 The left ventricle is dilated. There is no left ventricular hypertrophy. Left ventricular systolic function is normal. EF = 65 ? 5% (visual est.) Normal left ventricular diastolic function. - The right ventricle is normal in size. Right ventricular systolic function is normal. - There are no significant valvular abnormalities. Uric acid-05/26/2024- 6.2 Procalcitonin: 05/12/2024 2.23 => 05/26/2024 0.21 Recent Labs 05/26/24 0537 05/18/24 0605 05/12/24 0817 CRP 4.9* 4.0* 19.5* Recent Labs 05/27/24 0623 05/26/24 0537 05/18/24 0605 05/12/24 0817 05/11/24 1927 WBC 11.27* 11.23* 9.62 < > 9.56 RBC 4.55 4.42 4.47 < > 4.85 HB 11.7* 11.5* 11.7* < > 13.1 HCT 37.0* 36.4* 36.3* < > 39.9 PLT 182 172 218 < > 120* MCV 81.3 82.4 81.2 < > 82.3 MCH 25.7* 26.0 26.2 < > 27.0 MPV 10.7 10.0 10.1 < > 10.8 ABSNEUT -- -- -- -- 8.12* NEUTP -- -- -- -- 84.9 LYMPHP -- -- -- -- 5.8 MONOP -- -- -- -- 8.7 EODINP -- -- -- -- 0.1 < > = values in this interval not displayed. Recent Labs 05/27/24 0623 05/26/24 0537 05/18/24 0605 05/17/24 0534 05/16/24 0503 05/15/24 0434 05/14/24 0513 GLUC 158* 139* 142* -- 171* 223* 192* NA 134* 136 137 -- 133* 131* 131* K 4. (more content not included)...[facility] HospitalCqoeugxg81-13-4216 NoteHNO ID: [id number] Author: TU REBOLLEDO, RN Service: Nursing Author Type: Registered Nurse Type: Progress Notes Filed: 05/26/2024 18:22 Note Text: 1716: Patient has complaints of severe burning and cramping in all quadrants of abdomen. Secured messaged Dr. Dukes about patient's complaints. This nurse gave patient compazine and chewable tums to help relieve pain. Patient did not have anything to eat before this episode. Patient think's it may be the ATB he received. 1730: Dr. Avery secured messaged back, Lesly Steele APRN will come to assess patient. 1733: Lesly Steele APRN in to see patient. New orders of Simethicone chewable ordered. 1746: Patient was given simethicone given. Had little relief from medication. Tried having a bowel movement but was unsuccessful. Patient stated he did have some relief with belching and earlier this morning patient did have success with a bowel movement.[facility] HospitalImwmvphp77-14-7199 History of Present illness Narrative * Sonia Coffey MA - 05/26/2024 8:49 AM EDT Patient is informed Sonia Coffey MA * Najma Bloom DO - 05/25/2024 6:44 PM EDT Rx sent Najma Bloom DO * Cordelia Floyd MA - 05/24/2024 12:59 PM EDT Pt. Request medication to go to [facility] in [place]. Cordelia Floyd MA * Cordelia Floyd MA - 05/24/2024 7:15 AM EDT Lm on pt. Vm to call back and let us know what pharmacy. Cordelia Floyd MA * Najma Bloom DO - 05/23/2024 7:20 PM EDT Please notify pt I will prescribe oxy IR, but I can only prescribe 5 mg up to 4 times per day. Where does he want the Rx sent? Najma Bloom DO * Osiris Cartwright, RN - 05/23/2024 9:36 AM EDT TRANSITIONAL CARE MANAGEMENT (TCM) COMMUNITY MONITORING PROGRAM - [facility] Provider Action/FYI: Refill - Oxycodone, Pt would prefer a higher dose, Med pended as previously ordered Rheum consult needed (Prefers the [place] area) PCP appointment - 06/07/24 (20 minute appointment), Not able to schedule pt for a hospital follow upappointment during this call Pt may go to the [place] ED today SUMMARY: Pt discharged from [facility] on 05/19/24. RISK 31 Admitted for: Fever Tachycardia L knee pain, s/p drainage Sepsis Patient seen Inpatient JOSHUA Visit? N/A. Patient seen ICARE Program? N/A. Contact made with patient: Yes Hi my name is Osiris Cartwright, YESSICA and I am calling from the [facility] on behalf of your PCP, Najma Bloom, DO I understand you were recently in the hospital so I am calling to check in with you to ensure you are feeling well now that you re home. Do you mind if I ask you a few questions related to your hospital stay and well-being Yes Contact with patient post discharge, spoke to patient. Patient identified by name and . Do you feel your health is BETTER, WORSE, or the SAME since leaving the hospital? Worse - inform patient that you recommend further assessment with a provider in order to review their symptom(s) and that they can expect a call from a [facility] provider. End outreach. ACTION TAKEN: LICENSED RN USE ONLY - Patient indicated symptoms are worse. Based on licensed electric track switch maintainer, the following disposition is advised: No action required - Continue outreach / Phone call Pt states that he is terrible. Admits that he is not a happy camper w/ the hospital, or w/ his pain control. His L leg is all swollen up. He feels that it is about 4x the size of his R leg. States that he can't hardly move or walk because it is painful. Per pt, his L knee was drained in thehospital and cultures were sent. States he was told it was not infected and it's not Gout. Pt is aware that it may be Arthritis. He is having trouble sleeping d/t the pain. Pt states that the pain is worse then when he was in the hospital. Discussed his ordered pain meds - Oxycodone and Tylenol. He is taking the meds together as instructed to by the providers. His pain regimen does not work that much. It just takes the edge off. No fever - states it has gone away. Pt needs help to getup. He is using a walker. States that he has almost fallen a few times because his knee gives out. Pt was told he needed a f/u w/ Rheum this wk for an injection, but he hasn't received a call. No appointments w/ Rheum scheduled at this time. Pt doesn't want to go to [place] for see Rheum. His AVS lists pt should f/u w/ Dr. Zaki Farisa. He wants to see someone in [place]. Per pt, his [facility] in [place]. Pt will need a consult for Rheum. States that he may go to the [place] ED today. N/A MEDICATIONS: Many patients have questions or concerns about their medications once they are home. Do you have any questions about taking your medications or which medication you should be on? No Do you need any medication refills at this time, including any of the medications you might take only when needed? Yes Pt is requesting more Oxycodone. He has 3 left, which will last him the rest of today. He wants a higher dosage. States that 5mg doesn't help. ACTION TAKEN: Patient needs refill(s) - Routed to PCP, indicated the medications and preferred pharmacy in the FYI box. For RNs or Pharmacy completing outreach ONLY, was a medication review completed? N/A - [facility] TCM Pharmacist will be reaching out to pt to review meds. START taking these medications acetaminophen 325 mg tablet Commonly known as: TYLENOL Take 2 tablets by mouth every 6 hours as needed for pain. amoxicillin-clavulanate potassium 875-125 mg per tablet Commonly known as: AUGMENTIN Take 1 tablet by mouth every 12 hours for 10 days. oxyCODONE IR 5 mg immediate release tablet Commonly known as: ROXICODONE Take 1 tablet by mouth every 6 hours as needed for up to 5 days. DISCHARGE INTRUCTIONS: Your discharge instructions / After Visit Summary (AVS) are important in guiding you through the recovery process. Do you have any questions related to your discharge instructions? Yes Pt states that he was told everyone would call him. He is still waiting on all' the phone calls. Pt can't talk anymore right now. States that he has to go potty. Call ended. documented in this encounterWadsworth-[facility]ittman [facility]08-01-2024 NoteHNO ID: [id number] Author: BIJAN AVERY MD Service: Hospital Medicine Author Type: Physician Type: Progress Notes Filed: 05/27/2024 09:44 Note Text: ADDENDUM: The diagnosis associated with this patient is as follows:Obesity, Class II, BMI 35-39.9 DEPARTMENT OF HOSPITAL MEDICINE PROGRESS NOTE SERVICE DATE: 05/26/2024 SERVICE TIME: 6:37 AM Hospital Medicine/Primary Attending: Bijan Avery MD NIGHT AND WEEKEND COVERAGE: [place] COVERAGE: Nights: [phone], please page [place] Hospitalist Night coverage pager [phone]. Probable discharge: TBD Disposition: To be determined Consultants: Dr. Escobedo for podiatry Dr. Brown for orthopedics Dr. Polanco for nephrology Dr. Del Valle for infectious disease PROCEDURES: NONE Anticoagulation: Prior to admission: Apixaban Current: Apixaban on hold last dose a.m. 05/25 Smoking history: [id number] history of smoking quit 2014 ASSESSMENT/PLAN Reason for Admission: Left knee joint effusion seen on x-ray on the given Zosyn and vancomycin in the ED discharge yesterday from [place]. Reviewing the ED visit from 1724 vancomycin and Zosyn he had a fractured toe on MRI with probably an abrasion the left knee was a source of pain and his other symptoms sound like he may have had lactic acidosis causing them but his lactate was 1.4 INTERVAL COURSE OF EVENTS: Most the pains over his left medial plateau is diffusely tender with motion and also has some posterior lateral pain in the knee small effusion mild warmth Consults pending Procalcitonin/CRP/Uric acid Holding blood pressure medications for today Patient Active Hospital Problem List: 1. Knee pain Orthopedics on consultation-seen [place] with admission from [place]. He presented with sepsis at [place] with left knee pain now has effusion with low cell count he had hemarthrosis and is on apixaban had toe trauma with fracture of the great toe-on my exam most tender over the medial plateau exquisitely tender 2. Essential hypertension POA: Yes Continue current medications 3. Type 2 diabetes mellitus (HCC) POA: Yes Patient refusing insulin we will have nephrology make any needed adjustments 4. Simple chronic bronchitis (HCC) POA: Yes Patient stable with no pulmonary symptoms at this time 5. Atrial fibrillation (HCC) POA: Yes Paroxysmal on apixaban and diltiazem but short acting metoprolol no need to monitor unless becomes tachycardic 6. Stage 3b chronic kidney disease (HCC) POA: Yes Consult to nephrology he previously had obstructive uropathy with bilateral hydronephrosis. He is on sodium bicarb chronically and gets hyperkalemic at times OBJECTIVE EK05/11/2024 tachycardia unclear origin P waves suggesting junctional tachycardia as they are at the end of the T wave Minor nonspecific ST-T changes with inferior Q waves with left axis suggestive of prior inferior PA age undetermined ECHOCARDIOGRAM: 01/14/2023 The left ventricle is dilated. There is no left ventricular hypertrophy. Left ventricular systolic function is normal. EF = 65 ? 5% (visual est.) Normal left ventricular diastolic function. - The right ventricle is normal in size. Right ventricular systolic function is normal. - There are no significant valvular abnormalities. Uric acid-05/26/2024-pending Procalcitonin: 05/12/2024 2.23 05/26/2024-pending Recent Labs 05/18/24 0605 05/12/24 0817 CRP 4.0* 19.5* Recent Labs 05/26/24 0537 05/18/24 0605 05/16/24 0503 05/12/24 0817 05/11/24 1927 WBC 11.23* 9.62 8.88 < > 9.56 RBC 4.42 4.47 3.83* < > 4.85 HB 11.5* 11.7* 10.0* < > 13.1 HCT 36.4* 36.3* 30.7* < > 39.9 PLT 172 218 156 < > 120* MCV 82.4 81.2 80.2 < > 82.3 MCH 26.0 26.2 26.1 < > 27.0 MPV 10.0 10.1 11.1 < > 10.8 ABSNEUT -- -- -- -- 8.12* NEUTP -- -- -- -- 84.9 LYMPHP -- -- -- -- 5.8 MONOP -- -- -- -- 8.7 EODINP -- -- -- -- 0.1 < > = values in this interval not displayed. Recent Labs 05/26/2453605/18/2460405/17/2453305/16/24 0503 05/15/24 0434 05/14/24 0513 GLUC 139* 142* -- 171* 223* 192* NA 136 137 -- 133* 131* 131* K 4.5 4.8 -- 4.3 4.8 4.3 CHLOR 98 102 -- 96* 95* 95* CO2 28 24 -- 25 24 CREAT 2.21* 1.54* 1.83* 1.79* 1.89* 1.90* BUN 60* 42* -- 49* 44* 35* ANION 10 11 -- 12 13 12 CA 9.1 9.3 -- 9.0 8.8 8.7 TPROT -- -- -- 7.1 7.2 6.9 ALB -- -- -- 3.2* 3.2* 3.2* TBILI -- -- -- 0.2 0.2 0.3 ALKPHOS -- -- -- 89 91 83 AST -- -- -- 12* 13* 13* ALT -- -- -- 13 15 13 Recent Labs 05/26/2465005/26/2453605/25/24211005/25/24 1746 GLUC -- 139* -- -- PCGLUCOSE 150* -- 155* 181* Recent Labs 05/26/2453605/18/2460405/17/2434 05/16/24 0503 BUN 60* 42* -- 49* CREAT 2.21* 1.54* 1.83* 1.79* CA 9.1 9.3 -- 9.0 Most recent labs Last 14 BP Last 14 Encounter BP Readings: Date: BP: 05/25/2024 120/74 05/11/2024 125/69 05/11/2024 180/95 04/19/2024 109/60 03/04/2024 95/64 02/18/2024 80/50 02/14/ (more content not included)...[id number] Telephone encounter Note* Telephone Encounter - Joan Marte MD - 05/25/2024 1:34 PM EDT Pt recently admitted at for left knee pain (hx gout) seen by ortho and rheum, tap suggestive of inflammatory rather than septic arthritis but no crystals seen. Sent home with plans for office f-up. Comes back to ER with more pain in the knee and inability to walk. Admit to [place]. Joan Marte MD [facility] Work Phone: [phone] 652-940207-31-2024 Miscellaneous Notes* Telephone Encounter - Joan Marte MD - 05/25/2024 1:34 PM EDT Pt recently admitted at for left knee pain (hx gout) seen by ortho and rheum, tap suggestive of inflammatory rather than septic arthritis but no crystals seen. Sent home with plans for office f-up. Comes back to ER with more pain in the knee and inability to walk. Admit to [place]. Joan Marte MD documented in this encounterW[facility]07-[facility] Telephone encounter Note * Telephone Encounter - Cordelia Floyd MA - 05/25/2024 10:23 AM EDT notified and states her is in ER now . . Cordelia Floyd MA [facility]07-31-2024 Miscellaneous Notes* Telephone Encounter - Cordelia Floyd MA - 05/25/2024 10:23 AM EDT notified and states her is in ER now . . Cordelia Floyd MA * Telephone Encounter - Najma Bloom DO - 05/25/2024 10:19 AM EDT Order attached Najma Bloom DO * Telephone Encounter - Cordelia Floyd MA - 05/24/2024 1:01 PM EDT Patient is requesting referral. Thank you. Cordelia Floyd MA * Telephone Encounter - Cordelia Floyd MA - 05/24/2024 7:14 AM EDT Called lm on pt vm to contact office and let us know if he wants referral and what pharmacy would he like his oxy sent to. Cordelia Floyd MA * Telephone Encounter - Najma Bloom DO - 05/23/2024 7:26 PM EDT Please call pt - even though rheumatology was recommended to him in the hospital, an orthopedist can inject his knee. I can refer him to Dr. Kenyon in [place] - does he want that referral? DO Michelle * Telephone Encounter - Criss Devi MA - 05/20/2024 2:24 PM EDT Patient left message requesting a referral to a group account director in [place] or close to there that can give him a hydrocortisone injection if necessary. States right now his leg is non functioning, he needs help to get up and has to use a walker to get around. Please advise. Criss Devi MA documented in this encounterW[facility]07-31-[facility] Telephone encounter Note * Telephone Encounter - Najma Bloom DO - 05/25/2024 10:19 AM EDT Order attached Najma Bloom DO [facility]07-31-2024 Telephone encounter Note* Telephone Encounter - Criss Devi MA - 05/25/2024 8:36 AM EDT [facility] Short Term Disability forms placed in Dr. Bloom green folder to be filled out. Criss Devi MA [facility]07-30-2024 Telephone encounter Note* Telephone Encounter - Cordelia Floyd MA - 05/24/2024 1:01 PM EDT Patient is requesting referral. Thank you. Cordelia Floyd MA [facility]07-30-2024 Telephone encounter Note* Telephone Encounter - Cordelia Floyd MA - 05/24/2024 7:14 AM EDT Called lm on pt vm to contact office and let us know if he wants referral and what pharmacy would he like his oxy sent to. Cordelia Floyd MA [facility]07-29-2024 Telephone encounter Note* Telephone Encounter - Najma Bloom DO - 05/23/2024 7:26 PM EDT Please call pt - even though rheumatology was recommended to him in the hospital, an orthopedist can inject his knee. I can refer him to Dr. Kenyon in [place] - does he want that referral? DO Michelle [facility]07-26-2024 Telephone encounter Note* Telephone Encounter - Criss Devi MA - 05/20/2024 2:24 PM EDT Patient left message requesting a referral to a group account director in [place] or close to there that can give him a hydrocortisone injection if necessary. States right now his leg is non functioning, he needs help to get up and has to use a walker to get around. Please advise. Criss Devi MA [facility]07-26-2024 History of Present illness Narrative* Jigna Griffiths [facility] - 05/20/2024 8:33 AM EDT TRANSITION CARE MANAGEMENT (TCM) PHARMACY CONTACT Provider Action/FYI: TCM Medication Reconciliation completed for patient. See medication list table below for details. ACTION REQUIRED: PCP: Patient continues to complain of pain that is now radiating from his knee down to his foot and up to into his thigh. Patient has been taking acetaminophen 650 mg q6h and oxycodone 5 mg q6h (setting an alarm to avoid pain getting worse). Per patient he is struggling to walk now. TCM RN messaged PCP about getting a refill and possibly a higher dose. Patient just picked up diclofenac gel to try on his knees - reviewed in detail Per patient he was suppose to get a call from Rheumatology to get in for an injection but has not heard from them. Patient also wants to see someone closer to him preferably closer to [place]. Plans to continue oral DM meds and wait to start insulin per notes. Spoke with patient he has started using the Lantus 30 units qAM but continues to take his Ozempic 1 mg SC weekly + metformin 500 mgPO BID + glimepiride 4 mg BID. Reviewed with patient in detail about hypoglycemia and what to do. Per patient his glucose was 100 this am. Recommenced tracking and bringing to follow up in case his doses need to be adjusted. Patient said inpatient they were discussing increasing his Ozempic to help him avoid short acting insulin but this was not doing on discharge. Patient recommended to discuss at follow up with PCP. Patient unaware of several dose changes and new BP medications sent in. Per patient he was still taking diltiazem 240 mg + new Cartia 120 mg + furosemide 40 mg BID (instead of daily) + lisinopril 5 mg daily + metoprolol 25mg BID. Discussed with patient to stop diltiazem 240 mg and switch furosemide to daily but to monitor his BP closely in case it starts to trend up as it was normal since discharge. Nephrology: Patient stated he never received prescriptions for Nephrocaps nor Calcitriol - should these be continued - can we send prescriptions in to his pharmacy? Pref[facility]. Initial contact with patient post discharge, spoke to patient, and verified that any applicable caregiver is active in patient's medical care. Patient identified by name and . Patient's was also in the background listening in. Summary: -Pt discharged from on 05/19/24. -Medication review done: Full medication review completed Patient Concerns: Several concerns about medications, pain level. History of Present Illness: The following content has been copied and pasted from patient's discharge summary. If discharge summary unavailable, After Visit Summary or last pertinent inpatient notes are copied and pasted. Yamilka Sharma, a 58-year-old male, was admitted to [facility] on May 12, 2024, with symptoms including fever, tachycardia, and left knee pain. 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 Upon further examination, a swollen, inflamed right big toe with an open wound draining purulent discharge was noted. Blood cultures were negative, but wound cultures identified Gram-positive cocci. Antibiotic therapy was adjusted from vancomycin and Zosyn to Unasyn. Podiatry performed an incision and drainage of the right foot abscess and recommended follow-up care on an outpatient basis. Synovial fluid analysis, guided by rheumatology, suggested inflammatory arthritis rather than septic arthritis, as two sets of synovial cultures were negative and there was a low PNLs. The differential diagnosis included gout, pseudogout, or reactive arthritis. The patient completed a 5-day course of oral prednisone with mild improvement. Rheumatology business continuity consultant Dr. Mccann advised outpatient follow-up next Thursday for a possible steroid injection. 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 Despite discussions about transitioningto an MDI insulin regimen for better glycemic control, the patient chose to continue his current management and follow up with his primary care physician. The patient was deemed suitable for discharge today, May 19, 2024. Medication Reconciliation: Legend: Stopped, New, Changed, Added to list Medication List Medication Directions Comments Action/Plan acetaminophen (TYLENOL) 325 mg tablet Take 2 tablets by mouth every 6 hours as needed for pain. OTC Taking q6h Has been taking both pain meds every 6hr with no relief albuterol HFA (PROVENTIL HFA, VENTOLIN HFA) 90 mcg/actuation inhaler USE 2 INHALATIONS INSTRUCTED EVERY 4 HOURS NEEDED FOR WHEEZING/SHORTNESS OF BREATH has allopurinol (ZYLOPRIM) 100 mg tablet Take 1 tablet by mouth twice daily. Lf 03/22/24 #180/90ds Taking as prescribed without any issues amoxicillin-clavulanate potassium (AUGMENTIN) 875-125 mg per tablet Take 1 tablet by mouth every 12hours for 10 days. 05/19/24 #20/10ds Taking as prescribed without any issues Counseled on indication, administration and SE Has taken before apixaban (ELIQUIS) 5 mg tab(s) Take 1 tablet by mouth two times a day. [employer] Afib Lf 04/18/24 #180/90ds Taking as prescribed without any issues Reviewed indication and SE b complex, c, folic acid 1 mg renal vitamins (NEPHROCAPS) 1 mg capsule Take 1 capsule by mouth oncedaily. Never got Rx Question if should be sent in to pharmacy? blood sugar diagnostic (FlutherTOUCH VERIO TEST STRIPS) test strip 1 Strip two times a day. Use with blood glucose test two times a day. Insulin Dep? No blood sugar diagnostic (ONETOUCH VERIO TEST STRIPS) test strip Use with blood glucose test three times a day. Insulin Dep? Yes Blood-Glucose Meter 1 Each three times daily. Please match the test strips and lancets calcitriol (ROCALTROL) 0.25 mcg capsule Take 1 capsule by mouth every Thursday, Thursday, and Thursday. Needs Rx Question if should be sent in to pharmacy? diclofenac (VOLTAREN) 1 % topical gel Apply 2 g to affected area four times daily. Just picked up On knees Pain is now up and down whole leg - dilTIAZem CD (CARDIZEM CD, CARTIA XT) 120 mg 24 hr capsule Take 1 capsule by mouth once daily. New Rx sent to [facility] 04/06/24 90ds 240mg ? Decreased 240mg to 120mg [facility] Has been taking both 240 mg and 120 mg Reviewed dose change and monitoring BP DULoxetine (CYMBALTA) 60 mg capsule Take 1 capsule by mouth two times a day. 04/15/24 #180/90ds Taking as prescribed without any issues ergocalciferol 50,000 unit capsule (VITAMIN D2, DRISDOL) TAKE 1 CAPSULE ONCE A WEEK 04/15/24 #12/84ds Taking as prescribed without any issues Thursday FARXIGA 10 mg tablet TAKE 1 TABLET DAILY WITH BREAKFAST 05/09/24 90ds Taking as prescribed without any issues Reviewed SE furosemide (LASIX) 40 mg tablet Take 1 tablet by mouth once daily. 04/28/24 #180/90ds 40mg Decreased BID to daily Was still taking BID will adjust to daily Has been taking BID will adjust Monitor BP and edema gabapentin (NEURONTIN) 600 mg tablet Take 1 tablet by mouth three times a day for 90 days. 03/07/24 #270/90ds 600mg Taking as prescribed without any issues Discontinued: 05/19/2024 3:42 PM 03/15/24 #180/90ds Still taking BID BG 100 Will add back to med list insulin glargine (LANTUS SOLOSTAR U-100 INSULIN) 100 unit/mL (3 mL) Inject 30 Units subcutaneously as directed Sent to [facility] Hemoglobin A1C (%) Date Value 05/12/2024 9.5 10/26/2019 10.2 07/02/2019 9.7 Hemoglobin A1C (POCT) (%) Date Value 02/18/2024 11.5 10/09/2023 10.4 Taking as prescribed without any issues AM Confirm starting insulin - Despite discussions about transitioning to an MDI insulin regimen for better glycemic control, the patient chose to continue his current management and follow up with his primary care physician Counseled on indication, administration and SE Monitor for hypoglycemia - reviewed treatment lancets (FlutherTOUCH DELICA PLUS LANCET) 33 gauge Use with blood glucose test three times a day. Insulin Dep? Yes lidocaine-prilocaine (EMLA) 2.5-2.5 % cream APPLY TO AFFECTED AREA NEEDED PRIOR TO CHEMOTHERAPY Lf 05/05/24 30g Taking as prescribed without any issues Accessing port lisinopril (ZESTRIL) 5 mg tablet Take 1 tablet by mouth once daily. New Rx sent to [facility] Lf 01/29/24 90ds 10mg ?? Increased 2.5mg to 5mg Taking 5 mg daily Was taking 5 mg daily [employer] and will continue Discontinued: 05/19/2024 3:42 PM LF 03/10/24 #166/90ds Still taking BID Added back to list metoprolol tartrate, short acting, (LOPRESSOR) 25 mg tablet Take 1 tablet by mouth every 12 hours. Rx 05/12/24 LF 05/07/24 #180/90ds Taking as prescribed without any issues Discontinued: 05/19/2024 3:42 PM oxyCODONE IR (ROXICODONE) 5 mg immediate release tablet Take 1 tablet by mouth every 6 hours as needed for up to 5 days. 05/19/24 #20/5ds 5mg Taking as prescribed without any issues Not taking the edge off at all Counseled on indication, administration and SE polyethylene glycol 3350 17 gram packet Take 1 Packet by mouth once daily. Dissolve dose in 4 - 8 ounces of liquid and take as directed. OTC Not needed yet but will use if needed Counseled on indication, administration and SE potassium chloride (K-TAB) 10 mEq tablet Take 1 tablet by mouth once daily. LF 08/14/23 90ds ? Not taking Remove rosuvastatin (CRESTOR) 40 mg tablet take 1 tablet daily LF 04/06/24 90ds Taking as prescribed without any issues semaglutide (OZEMPIC) 1 mg/dose (4 mg/3 mL) pen Inject 1 mg subcutaneously one time a week. LF 04/28/24 #9/84ds Taking as prescribed without any issues Per pt was talking about increasing to 2 mg week To help avoid fast acting insulin sildenafil (REVATIO) 20 mg tablet Take 3-5 tablets by mouth once daily as needed. PRN ED SITagliptin phosphate (JANUVIA) 100 mg tablet Take 1 tablet by mouth once daily. LF 02/25/24 90ds Taking as prescribed without any issues sodium bicarbonate 650 mg tablet TAKE 2 TABLETS TWICE A DAY LF 05/05/24 #360/90ds Taking as prescribed without any issues Preferred pharmacy: [facility] [place] [address] [phone] [facility] - [phone] [place] [id number] e- [id number] [place] [address] - [address] [place] [address] - [id number] [place] [id number] Estimated Creatinine Clearance: 70.1 mL/min (A) (based on SCr of 1.54 mg/dL (H)). Estimated Glomerular Filtration Rate (mL/min/1.73m ) Date Value 05/18/2024 52 (L) eGFR- (no units) Date Value 10/31/2021 >60 Additional follow up: Next 5 Appointments Date and Time Provider Department Dept Phone 06/07/2024 10:00 AM Najam Bloom [facility] [phone] 08/16/2024 10:00 AM Vargas Benton [facility] [phone] 08/30/2024 3:15 PM Epi Polanco [facility] [phone] 12/05/2024 10:[address] PREP [facility] RADIO CT SCAN [facility] [phone] 12/05/2024 11:[address] [facility] (I-STAT) RADIO CT SCAN [facility] WS [phone] Interventions Made: Drugs discontinued, Drugs added, Patient education/Medication counseling, and Adherence counseling Pharmacist Recommendations Made Therapeutic interchange/Drug therapy regimen optimization recommendation and Potential drug interaction/side effects/adverse effects detected Care Coordination: Medication clarification obtained from provider Time spent on patient: 45-60 minutes Jigna Griffiths RPh May 20, 2024 8:39 AM documented in this encounterWadsworth[facility]07-26-2024 NoteHNO ID: [id number] Author: JIGNA GRIFFITHS RPh Service: Pharmacy Author Type: Pharmacist Type: Progress Notes Filed: 05/26/2024 11:19 Note Text: TRANSITION CARE MANAGEMENT (TCM) PHARMACY CONTACT Provider Action/FYI: TCM Medication Reconciliation completed for patient. See medication list table below for details. ACTION REQUIRED: PCP: Patient continues to complain of pain that is now radiating from his knee down to his foot and up to into his thigh. Patient has been taking acetaminophen 650 mg q6h and oxycodone 5 mg q6h (setting an alarm to avoid pain getting worse). Per patient he is struggling to walk now. TCM RN messaged PCP about getting a refill and possibly a higher dose. Patient just picked up diclofenac gel to try on his knees - reviewed in detail Per patient he was suppose to get a call from Rheumatology to get in for an injection but has not heard from them. Patient also wants to see someone closer to him preferably closer to [place]. Plans to continue oral DM meds and wait to start insulin per notes. Spoke with patient he has started using the Lantus 30 units qAM but continues to take his Ozempic 1 mg SC weekly + metformin 500 mg PO BID + glimepiride 4 mg BID. Reviewed with patient in detail about hypoglycemia and what to do. Per patient his glucose was 100 this am. Recommenced tracking and bringing to follow up in case his doses need to be adjusted. Patient said inpatient they were discussing increasing his Ozempic to help him avoid short acting insulin but this was not doing on discharge. Patient recommended to discuss at follow up with PCP. Patient unaware of several dose changes and new BP medications sent in. Per patient he was still taking diltiazem 240 mg + new Cartia 120 mg + furosemide 40 mg BID (instead of daily) + lisinopril 5 mg daily + metoprolol 25mg BID. Discussed with patient to stop diltiazem 240 mg and switch furosemide to daily but to monitor his BP closely in case it starts to trend up as it was normal since discharge. Nephrology: Patient stated he never received prescriptions for Nephrocaps nor Calcitriol - should these be continued - can we send prescriptions in to his pharmacy? [facility]. Initial contact with patient post discharge, spoke to patient, and verified that any applicable caregiver is active in patient's medical care. Patient identified by name and . Patient's was also in the background listening in. Summary: -Pt discharged from on 05/19/24. -Medication review done: Full medication review completed Patient Concerns: Several concerns about medications, pain level. History of Present Illness: The following content has been copied and pasted from patient's discharge summary. If discharge summary unavailable, After Visit Summary or last pertinent inpatient notes are copied and pasted. Yamilka Sharma, a 58-year-old male, was admitted to [facility] on May 12, 2024, with symptoms including fever, tachycardia, and left knee pain. 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 Upon further examination, a swollen, inflamed right big toe with an open wound draining purulent discharge was noted. Blood cultures were negative, but wound cultures identified Gram-positive cocci. Antibiotic therapy was adjusted from vancomycin and Zosyn to Unasyn. Podiatry performed an incision and drainage of the right foot abscess and recommended follow-up care on an outpatient basis. Synovial fluid analysis, guided by rheumatology, suggested inflammatory arthritis rather than septic arthritis, as two sets of synovial cultures were negative and there was a low PNLs. The differential diagnosis included gout, pseudogout, or reactive arthritis. The patient completed a 5-day course of oral prednisone with mild improvement. Rheumatology business continuity consultant Dr. Mccann advised outpatient follow-up next Thursday for a possible steroid injection. 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 Despite discussions about transitioning to an MDI insulin regimen for better glycemic control, the patient chose to continue his current management and follow up with his primary care physician. The patient was deemed suitable for discharge today, May 19, 2024. Medication Reconciliation: Legend: Stopped, New, Changed, Added to list Medication List Medication Directions Comments Action/Plan acetaminophen (TYLENOL) 325 mg tablet Take 2 tablets by mouth every 6 hours as needed for pain. OTC Taking q6h Has been taking both pain med (more content not included)...[facility]07-26-2024 NotePatient Outreach (PHRXRF) YAMILKA SHARMA ([id number]) 1965 M Date Time Provider Department 05/20/24 JIGNA GRIFFITHS PHRXRF During your visit today, we recorded the following information about you: Jigna Griffiths [facility] 05/26/2024 11:19 AM Signed TRANSITION CARE MANAGEMENT (TCM) PHARMACY CONTACT Provider Action/FYI: TCM Medication Reconciliation completed for patient. See medication list table below for details. ACTION REQUIRED: PCP: Patient continues to complain of pain that is now radiating from his knee down to his foot and up to into his thigh. Patient has been taking acetaminophen 650 mg q6h and oxycodone 5 mg q6h (setting an alarm to avoid pain getting worse). Per patient he is struggling to walk now. TCM RN messaged PCP about getting a refill and possibly a higher dose. Patient just picked up diclofenac gel to try on his knees - reviewed in detail Per patient he was suppose to get a call from Rheumatology to get in for an injection but has not heard from them. Patient also wants to see someone closer to him preferably closer to [place]. Plans to continue oral DM meds and wait to start insulin per notes. Spoke with patient he has started using the Lantus 30 units qAM but continues to take his Ozempic 1 mg SC weekly + metformin 500 mg PO BID + glimepiride 4 mg BID. Reviewed with patient in detail about hypoglycemia and what to do. Per patient his glucose was 100 this am. Recommenced tracking and bringing to follow up in case his doses need to be adjusted. Patient said inpatient they were discussing increasing his Ozempic to help him avoid short acting insulin but this was not doing on discharge. Patient recommended to discuss at follow up with PCP. Patient unaware of several dose changes and new BP medications sent in. Per patient he was still taking diltiazem 240 mg + new Cartia 120 mg + furosemide 40 mg BID (instead of daily) + lisinopril 5 mg daily + metoprolol 25mg BID. Discussed with patient to stop diltiazem 240 mg and switch furosemide to daily but to monitor his BP closely in case it starts to trend up as it was normal since discharge. Nephrology: Patient stated he never received prescriptions for Nephrocaps nor Calcitriol - should these be continued - can we send prescriptions in to his pharmacy? Prefers [facility]. Initial contact with patient post discharge, spoke to patient, and verified that any applicable caregiver is active in patient's medical care. Patient identified by name and . Patient's was also in the background listening in. Summary: -Pt discharged from on 05/19/24. -Medication review done: Full medication review completed Patient Concerns: Several concerns about medications, pain level. History of Present Illness: The following content has been copied and pasted from patient's discharge summary. If discharge summary unavailable, After Visit Summary or last pertinent inpatient notes are copied and pasted. Yamilka Sharma, a 58-year-old male, was admitted to [facility] on May 12, 2024, with symptoms including fever, tachycardia, and left knee pain. 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 Upon further examination, a swollen, inflamed right big toe with an open wound draining purulent discharge was noted. Blood cultures were negative, but wound cultures identified Gram-positive cocci. Antibiotic therapy was adjusted from vancomycin and Zosyn to Unasyn. Podiatry performed an incision and drainage of the right foot abscess and recommended follow-up care on an outpatient basis. Synovial fluid analysis, guided by rheumatology, suggested inflammatory arthritis rather than septic arthritis, as two sets of synovial cultures were negative and there was a low PNLs. The differential diagnosis included gout, pseudogout, or reactive arthritis. The patient completed a 5-day course of oral prednisone with mild improvement. Rheumatology business continuity consultant Dr. Mccann advised outpatient follow-up next Thursday for a possible steroid injection. 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 Despite discussions about transitioning to an MDI insulin regimen for better glycemic control, the patient chose to continue his current management and follow up with his primary care physician. The patient was deemed suitable for discharge today, May 19, 2024. Medication Reconciliation: Legend: Stopped, New, Changed, Added to list Medication List M (more content not included)...[facility]07-24-2024 NoteHNO ID: [id number] Author: LEO LEA MD Service: Hospital Medicine Author Type: Resident Type: Progress Notes Filed: 05/18/2024 17:39 Note Text: Attestation signed by Leo Lea MD at 05/18/2024 5:39 PM The patient was seen and examined today by myself. I have reviewed labs, notes, images, procedures, and all other critical information necessary to implement a care plan. I have discussed with the above housestaff the patient's care, and was present for and instrumental in, the development of the assessment and plan. Leo Lea MD, [facility] Internal Medicine Inpatient PROGRESS NOTE PATIENT NAME: Yamilka Sharma SERVICE DATE: 05/18/2024 SERVICE TIME: 8:40 AM HOSPITAL DAY: 6 PRIMARY CARE PHYSICIAN: Najma Bloom DO CODE STATUS: Code Status: Full Code Days: [phone], please page Bradley Gamble MD for patient issues either through [employer] or [employer]. Nights: [phone], please page [facility] night coverage pager [phone] for Team 1,2 AND3. Impression: Yamilka Sharma is a 58 year old male who is admitted to the [facility] on May 12, 2024 for fever and tachycardia and currently being managed for potential right foot cellulitis and left knee joint inflammatory arthritis. 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 INTERVAL HPI / Subjective: Today is day # 6, - Overnight Events: No fever, Left knee pain is improving but the patient is still compaining of 7/[address] Zaki Farias had aspirated 15 cc of synovial fluid and were sent for synovial analysis. Physical Exam / Objective: BP 119/71 Pulse 80 Temp 36.3 ?C (97.3 ?F) (Oral) Resp 16 Ht 182.9 cm (6') Wt 123.7 kg (272 lb 9.6 oz) SpO2 96% BMI 36.97 kg/m? General Appearance: Awake, alert, no acute distress. Skin: No rashes or lesions. Head: Normocephalic, atraumatic. Eyes: No pallor, no icterus, EOMI. Oropharynx: Moist mucosa, no oropharyngeal lesions. Neck: Supple, no JVD appreciated. Lungs: Symmetric expansion, clear to auscultation bilaterally. Heart: +S1, +S2, RRR, no murmurs, rubs or gallops appreciated. Abdomen: Normal active bowel sounds, soft, nontender. Extremities: Left knee large warm effusion, with tenderness, no erythema, limited ROM on flexion and extension. His right foot is covered in dressing. Peripheral Pulses: to be assessed by PVR. Neurologic: AANDOx3, gross motor strength intact throughout. No intake or output data in the 24 hours ending 05/18/24 1645 Labs/Data: CBC: Recent Labs 05/18/24 0605 05/16/24 0503 05/15/24 0434 05/14/24 0513 05/12/24 0817 05/11/24 192 WBC 9.62 8.88 10.38 9.20 7.66 9.56 HB 11.7* 10.0* 11.2* 11.1* 11.2* 13.1 PLT 218 156 155 129* 123* 120* MCV 81.2 80.2 79.9* 81.0 80.5 82.3 RDWCV 14.5 14.6 14.6 14.7 14.8 14.8 NEUTP -- -- -- -- -- 84.9 ABSNEUT -- -- -- -- -- 8.12* LYMPHP -- -- -- -- -- 5.8 MONOP -- -- -- -- -- 8.7 EODINP -- -- -- -- -- 0.1 COAG: No results for input(s): APTT, INR in the last 168 hours. BMP: Recent Labs 05/18/24 0605 05/17/24 0534 05/16/24 0503 05/15/24 0434 05/14/24 0513 05/13/24 0831 05/12/24 0817 05/11/24 1927 GLUC 142* -- 171* 223* 192* 177* 235* 276* NA 137 -- 133* 131* 131* 130* 130* 129* K 4.8 -- 4.3 4.8 4.3 4.6 4.2 4.7 CHLOR 102 -- 96* 95* 95* 95* 95* 89* CO2 24 -- 25 24 22 23 22 ANION 11 -- 12 13 12 13 12 18* BUN 42* -- 49* 44* 35* 39* 42* 48* CREAT 1.54* 1.83* 1.79* 1.89* 1.90* 2.07* 2.12* 2.15* CHEM: Recent Labs 05/18/24 0605 05/16/24 0503 05/15/24 0434 05/14/24 0513 05/13/24 0831 05/12/24 0817 05/11/241926 ALB -- 3.2* 3.2* 3.2* 3.3* -- 3.9 TPROT -- 7.1 7.2 6.9 6.8 -- 7.9 CA 9.3 9.0 8.8 8.7 8.7 8.6 9.2 HEPATIC: Recent Labs 05/16/24 0503 05/15/24 0434 05/14/24 0513 05/13/24 0831 05/11/241926 ALKPHOS 89 91 83 74 82 ALT 13 15 13 12 18 AST 12* 13* 13* 11* 16 TBILI 0.2 0.2 0.3 0.4 0.5 LIPASE -- -- -- -- 19 CARDIAC: No results for input(s): CKTEST, CKMB, CKMBP, TROPT, PBNP in the last 168 hours. URINALYSIS: Recent Labs 05/11/242023 SPGR 1.015 UGLUC 3+* UBILI Negative UKET 1+* UHB 2+* UPROT 2+* UWBC >25 /HPF* Estimated Creatinine Clearance: 70.1 mL/min (A) (based on SCr of 1.54 mg/dL (H)). Medications: Current Facility-Administered Medications Medication Dose Route Frequency NaCl 0.9% iv flush bag 20 mL INTRAVENOUS PRN ondansetron 4 mg tab(s) (ZOFRAN) 4 mg ORAL q 6 H PRN Or ondansetron (PF) 4 mg injection (ZOFRAN) 4 mg INTRAVENOUS q 6 H PRN acetaminophen 650 mg tab(s) (TYLENOL) 650 mg ORAL q 6 H PRN s (more content not included)...[facility] [id number] NoteHNO ID: [id number] Author: FREDIS MONZON MD Service: Rheumatology Author Type: Physician Type: Progress Notes Filed: 05/18/2024 10:43 Note Text: Rheumatology Progress Note The patient was seen and examined today. Subjective: Patient is still complaining of pain in the left knee with difficulty bending the knee and difficulty ambulating and bearing weight. He was getting ready to be discharged today on oral antibiotics for his osteomyelitis. He denies fever, cough or shortness of breath, abdominal pain, nausea or vomiting. He stated that the knee felt better after the aspiration but it gradually gotten worse despite using the prednisone. Objective: Vitals: BP 140/81 Pulse 71 Temp 36.4 ?C (97.5 ?F) (Oral) Resp 16 Ht 182.9 cm (6') Wt 123.7 kg (272 lb 9.6 oz) SpO2 97% BMI 36.97 kg/m? Exam: General: A+O X 3. NAD. Head/Neck: ATNC, normal mucosa. MSK: Left knee effusion, tenderness and limited flexion Abdomen: Soft, NT, ND, +BS Extremities: No edema, burising. Skin: Right foot is dressed Labs/Imaging: All reviewed A/P: Inflammatory arthritis of the left knee Osteomyelitis of the right foot Uncontrolled diabetes mellitus I aspirated 50 cc of dusky fluids from the left knee today, I was hesitant to inject steroids since I could not comfortably rule out septic arthritis. This is unlikely to be crystal arthropathy since the initial crystal exam was negative. Reactive arthritis remains a possibility and that should improve with treating the infection. I did send the fluid for cell count and culture again. Culture results may be confounded by being on oral antibiotics however I discussed with Dr. Aguirre from infectious disease and his suspicion for septic arthritis is low since the initial culture of the fluids and the blood were negative. Intra-articular steroid injection can be offered if the swelling and pain come back as long as we are comfortable that there is no concern for septic arthritis. He should avoid NSAIDs given his chronic kidney disease. He already tried steroids orally. Fredis Monzon MDFitchburg General [id number] NoteHNO ID: [id number] Author: LEO LEA MD Service: Hospital Medicine Author Type: Resident Type: Progress Notes Filed: 05/17/2024 15:46 Note Text: Attestation signed by Leo Lea MD at 05/17/2024 3:46 PM The patient was seen and examined today by myself. I have reviewed labs, notes, images, procedures, and all other critical information necessary to implement a care plan. I have discussed with the above housestaff the patient's care, and was present for and instrumental in, the development of the assessment and plan. Leo Lea MD, [facility] Internal Medicine Inpatient PROGRESS NOTE PATIENT NAME: Yamilka Sharma SERVICE DATE: 05/17/2024 SERVICE TIME: 8:40 AM HOSPITAL DAY: 5 PRIMARY CARE PHYSICIAN: Najma Bloom DO CODE STATUS: Code Status: Full Code Days: [phone], please page Bradley Gamble MD for patient issues either through [employer] or [employer]. Nights: [phone], please page [facility] night coverage pager [phone] for Team 1,2 AND3. Impression: Yamilka Sharma is a 58 year old male who is admitted to the [facility] on May 12, 2024 for fever and tachycardia and currently being managed for potential right foot cellulitis and left knee joint inflammatory arthritis. 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 INTERVAL HPI / Subjective: Today is day # 5, - Overnight Events: No fever, Left knee pain is improving. Patient had MRI rt foot today. Physical Exam / Objective: BP 124/72 Pulse 81 Temp 36.4 ?C (97.5 ?F) (Oral) Resp 14 Ht 182.9 cm (6') Wt 123.7 kg (272 lb 9.6 oz) SpO2 96% BMI 36.97 kg/m? General Appearance: Awake, alert, no acute distress. Skin: No rashes or lesions. Head: Normocephalic, atraumatic. Eyes: No pallor, no icterus, EOMI. Oropharynx: Moist mucosa, no oropharyngeal lesions. Neck: Supple, no JVD appreciated. Lungs: Symmetric expansion, clear to auscultation bilaterally. Heart: +S1, +S2, RRR, no murmurs, rubs or gallops appreciated. Abdomen: Normal active bowel sounds, soft, nontender. Extremities: Left knee large warm effusion, with tenderness, no erythema, limited ROM on flexion and extension. His right foot is covered in dressing. Peripheral Pulses: to be assessed by PVR. Neurologic: AANDOx3, gross motor strength intact throughout. Intake/Output Summary (Last 24 hours) at 05/17/2024 1411 Last data filed at 05/17/2024 1034 Gross per 24 hour Intake 480 ml Output -- Net 480 ml Labs/Data: CBC: Recent Labs 05/16/24 0503 05/15/24 0434 05/14/24 0513 05/12/24 0817 05/11/241926 WBC 8.88 10.38 9.20 7.66 9.56 HB 10.0* 11.2* 11.1* 11.2* 13.1 PLT 156 155 129* 123* 120* MCV 80.2 79.9* 81.0 80.5 82.3 RDWCV 14.6 14.6 14.7 14.8 14.8 NEUTP -- -- -- -- 84.9 ABSNEUT -- -- -- -- 8.12* LYMPHP -- -- -- -- 5.8 MONOP -- -- -- -- 8.7 EODINP -- -- -- -- 0.1 COAG: No results for input(s): APTT, INR in the last 168 hours. BMP: Recent Labs 05/17/24 0534 05/16/24 0503 05/15/24 0434 05/14/24 0513 05/13/24 0831 05/12/24 0817 05/11/241926 GLUC -- 171* 223* 192* 177* 235* 276* NA -- 133* 131* 131* 130* 130* 129* K -- 4.3 4.8 4.3 4.6 4.2 4.7 CHLOR -- 96* 95* 95* 95* 95* 89* CO2 -- 25 23 24 23 ANION -- 12 13 12 13 12 18* BUN -- 49* 44* 35* 39* 42* 48* CREAT 1.83* 1.79* 1.89* 1.90* 2.07* 2.12* 2.15* CHEM: Recent Labs 05/16/24 0503 05/15/24 0434 05/14/24 0505/13/24 0831 05/12/2481605/11/241926 ALB 3.2* 3.2* 3.2* 3.3* -- 3.9 TPROT 7.1 7.2 6.9 6.8 -- 7.9 CA 9.0 8.8 8.7 8.7 8.6 9.2 HEPATIC: Recent Labs 05/16/24 0503 05/15/2443305/14/2451205/13/2483005/11/241926 ALKPHOS 89 91 83 74 82 ALT 13 15 13 12 18 AST 12* 13* 13* 11* 16 TBILI 0.2 0.2 0.3 0.4 0.5 LIPASE -- -- -- -- 19 CARDIAC: No results for input(s): CKTEST, CKMB, CKMBP, TROPT, PBNP in the last 168 hours. URINALYSIS: Recent Labs 05/11/242023 SPGR 1.015 UGLUC 3+* UBILI Negative UKET 1+* UHB 2+* UPROT 2+* UWBC >25 /HPF* Estimated Creatinine Clearance: 59 mL/min (A) (based on SCr of 1.83 mg/dL (H)). Medications: Current Facility-Administered Medications Medication Dose Route Frequency NaCl 0.9% iv flush bag 20 mL INTRAVENOUS PRN ondansetron 4 mg tab(s) (ZOFRAN) 4 mg ORAL q 6 H PRN Or ondansetron (PF) 4 mg injection (ZOFRAN) 4 mg INTRAVENOUS q 6 H PRN acetaminophen 650 mg tab(s) (TYLENOL) 650 mg ORAL q 6 H PRN sodium bicarbonate 1,300 mg tab(s) 1,300 mg ORAL BID gabapentin 600 mg tab(s) (NEURONTIN) 600 mg ORAL TID rosuvastatin 40 mg tab(s) (CRESTOR) 40 mg ORAL DAILY al (more content not included)...[facility] HospitalKyxlxrxm56-50-[facility] NoteHNO ID: [id number] Author: VIRI ESCOBAR LSW Service: Care Management Author Type: Child Guidance Counselor Type: Care Mgt Progress Note Filed: 05/17/2024 13:57 Note Text: CARE MANAGEMENT PROGRESS NOTE SERVICE DATE: 05/17/2024 SERVICE TIME: 1355 LOS: 5 days Cm continues to follow. Unsure if there will be needs at d/c. Pt remains on iv antibiotics. He is waiting for Rheumatology to see him. SIGNATURE: MARLENE Padilla PATIENT NAME: Yamilka Sharma DATE: May 17, 2024 TIME: 1:55 PM PAGER/CONTACT #: [phone] NoteHNO ID: [id number] Author: LEO LEA MD Service: Hospital Medicine Author Type: Resident Type: Progress Notes Filed: 05/16/2024 17:57 Note Text: Attestation signed by Leo Lea MD at 05/16/2024 5:57 PM The patient was seen and examined today by myself. I have reviewed labs, notes, images, procedures, and all other critical information necessary to implement a care plan. I have discussed with the above housestaff the patient's care, and was present for and instrumental in, the development of the assessment and plan. 4 days waiting on MRI without effective plan. Responding to IV abx, but cannot move forward without imaging Leo Lea MD, [facility] Internal Medicine Inpatient PROGRESS NOTE PATIENT NAME: Yamilka Sharma SERVICE DATE: 05/16/2024 SERVICE TIME: 8:40 AM HOSPITAL DAY: 4 PRIMARY CARE PHYSICIAN: Najma Bloom DO CODE STATUS: Code Status: Full Code Days: [phone], please page Bradley Gamble MD for patient issues either through [employer] or [employer]. Nights: [phone], please page [facility] night coverage pager [phone] for Team 1,2 AND3. Impression: Yamilka Sharma is a 58 year old male who is admitted to the [facility] on May 12, 2024 for fever and tachycardia and currently being managed for potential right foot cellulitis and left knee joint inflammatory arthritis. 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 INTERVAL HPI / Subjective: Today is day # 4, - Overnight Events: No fever, RT knee pain 3/10 at rest, 5/10 on ambulation and he has better capacity to ambulate it. Physical Exam / Objective: BP 121/74 Pulse 88 Temp 36.4 ?C (97.5 ?F) (Oral) Resp 18 Ht 182.9 cm (6') Wt 123.7 kg (272 lb 9.6 oz) SpO2 97% BMI 36.97 kg/m? General Appearance: Awake, alert, no acute distress. Skin: No rashes or lesions. Head: Normocephalic, atraumatic. Eyes: No pallor, no icterus, EOMI. Oropharynx: Moist mucosa, no oropharyngeal lesions. Neck: Supple, no JVD appreciated. Lungs: Symmetric expansion, clear to auscultation bilaterally. Heart: +S1, +S2, RRR, no murmurs, rubs or gallops appreciated. Abdomen: Normal active bowel sounds, soft, nontender. Extremities: Left knee large warm effusion, with tenderness, no erythema, limited ROM on flexion and extension. His right foot is covered in dressing. Peripheral Pulses: to be assessed by PVR. Neurologic: AANDOx3, gross motor strength intact throughout. Intake/Output Summary (Last 24 hours) at 05/16/2024 1713 Last data filed at 05/16/2024 1124 Gross per 24 hour Intake 360 ml Output 900 ml Net -540 ml Labs/Data: CBC: Recent Labs 05/16/24 0503 05/15/24 0434 05/14/24 0513 05/12/24 0805/11/241926 WBC 8.88 10.38 9.20 7.66 9.56 HB 10.0* 11.2* 11.1* 11.2* 13.1 PLT 156 155 129* 123* 120* MCV 80.2 79.9* 81.0 80.5 82.3 RDWCV 14.6 14.6 14.7 14.8 14.8 NEUTP -- -- -- -- 84.9 ABSNEUT -- -- -- -- 8.12* LYMPHP -- -- -- -- 5.8 MONOP -- -- -- -- 8.7 EODINP -- -- -- -- 0.1 COAG: No results for input(s): APTT, INR in the last 168 hours. BMP: Recent Labs 05/16/24 0503 05/15/24 0434 05/14/24 0505/13/24 0831 05/12/24 0805/11/241926 GLUC 171* 223* 192* 177* 235* 276* NA 133* 131* 131* 130* 130* 129* K 4.3 4.8 4.3 4.6 4.2 4.7 CHLOR 96* 95* 95* 95* 95* 89* CO2 25 23 24 22 23 22 ANION 12 13 12 13 12 18* BUN 49* 44* 35* 39* 42* 48* CREAT 1.79* 1.89* 1.90* 2.07* 2.12* 2.15* CHEM: Recent Labs 05/16/24 0503 05/15/24 0434 05/14/24 0513 05/13/24 0831 05/12/24 0817 05/11/241926 ALB 3.2* 3.2* 3.2* 3.3* -- 3.9 TPROT 7.1 7.2 6.9 6.8 -- 7.9 CA 9.0 8.8 8.7 8.7 8.6 9.2 HEPATIC: Recent Labs 05/16/24 0503 05/15/24 0434 05/14/24 0513 05/13/24 0831 05/11/24 1927 ALKPHOS 89 91 83 74 82 ALT 13 15 13 12 18 AST 12* 13* 13* 11* 16 TBILI 0.2 0.2 0.3 0.4 0.5 LIPASE -- -- -- -- 19 CARDIAC: No results for input(s): CKTEST, CKMB, CKMBP, TROPT, PBNP in the last 168 hours. URINALYSIS: Recent Labs 05/11/242023 SPGR 1.015 UGLUC 3+* UBILI Negative UKET 1+* UHB 2+* UPROT 2+* UWBC >25 /HPF* Estimated Creatinine Clearance: 60.3 mL/min (A) (based on SCr of 1.79 mg/dL (H)). Medications: Current Facility-Administered Medications Medication Dose Route Frequency NaCl 0.9% iv flush bag 20 mL INTRAVENOUS PRN ondansetron 4 mg tab(s) (ZOFRAN) 4 mg ORAL q 6 H PRN Or ondansetron (PF) 4 mg injection (ZOFRAN) 4 mg INTRAVENOUS q 6 H PRN acetaminophen 650 mg tab(s) (TYLENOL) 650 mg ORAL q 6 H PRN sodium bicarbonate 1,300 mg tab(s) 1,300 mg ORAL BID gabap (more content not included)...[facility] [id number] Telephone encounter Note* Telephone Encounter - Sonia Coffey MA - 05/16/2024 4:04 PM EDT Patient states that the letter is for when he went to ER and got admitted Last Thursday. Sonia Coffey MA [facility]07-22-2024 Miscellaneous Notes* Telephone Encounter - Sonia Coffey MA - 05/16/2024 4:04 PM EDT Patient states that the letter is for when he went to ER and got admitted Last Thursday. Sonia Coffey MA * Telephone Encounter - Najma Bloom DO - 05/16/2024 12:53 PM EDT I can fill out the [facility] paperwork for him. Does he want the letter to state any dates regarding hishospitalization and illness? Najma Bloom DO ] * Telephone Encounter - Criss Devi MA - 05/16/2024 9:49 AM EDT Patient left message stating he is admitted in [facility] since last Thursday and he would like to talk to Dr. Bloom to discuss the Short Term Disability paperwork she will be receiving. Also states his work need a letter faxed to them stating where he is at currently. Please advise. Criss Devi MA documented in this encounterW[facility] Telephone encounter Note * Telephone Encounter - Najma Bloom DO - 05/16/2024 12:53 PM EDT I can fill out the [facility] paperwork for him. Does he want the letter to state any dates regarding hishospitalization and illness? Najma Bloom DO ] [facility]07-22-2024 Telephone encounter Note* Telephone Encounter - Criss Devi MA - 05/16/2024 9:49 AM EDT Patient left message stating he is admitted in [facility] since last Thursday and he would like to talk to Dr. Bloom to discuss the Short Term Disability paperwork she will be receiving. Also states his work need a letter faxed to them stating where he is at currently. Please advise. Criss Devi MA [facility]07-22-2024 NoteHNO ID: [id number] Author: ALESHA RENEE RN Service: Diabetes Education Author Type: Registered Nurse Type: Patient Education Filed: 05/16/2024 09:58 Note Text: DIABETES EDUCATION INPATIENT PROGRESS NOTE Upon arrival to room and introductions, patient verbalized he was tired. Educator offered to comeback at a later time for teaching. Dr. Lea, primary team residents, and Ion Ash RN updated via secure message. Time spent (minutes) less than 1 SIGNATURE: Alesha Renee RN PATIENT NAME: Yamilka Sharma DATE: May 16, 2024 TIME: 9:49 AM PAGER: [phone] NoteHNO ID: [id number] Author: ALESHA RENEE RN Service: Diabetes Education Author Type: Registered Nurse Type: Patient Education Filed: 05/16/2024 14:56 Note Text: DIABETES EDUCATION INPATIENT PROGRESS NOTE INITIAL OR FOLLOW-UP: First diabetes care AND education visit this admission VISIT TYPE: in-person SERVICE DATE: 05/16/2024 SERVICE TIME: 1330 RECOMMENDATIONS TO DISCHARGING PROVIDER FOR DISCHARGE ORDERS: Place outpatient referral for CONSULT TO DIABETES EDUCATION (Epic Code [id number]) Follow-up with PCP after discharge Follow up with endocrinology provider after discharge Scripts needed for diabetes supplies: OneTouch Delica Plus lancets (33g), 100/box, epic code [id number] OneTouch Verio test strips, 25 or 50 or 100 per box, epic code 445202 Lantus Solostar, 5 pens/box, epic code 68687 Humalog Kwikpen U100, 5 pens/box, epic code [id number] BD Ultra-fine pen needles - Paula (32g x 5/32), 100/box, epic code [id number] Patient is requesting not to be on rapid acting if possible due to his job. Patient is requesting his blood glucose monitoring supplies to be ordered through [facility]. Voucher provided for Humalog insulin pen(s) that should be at no charge and not be billed through insurance company. Patient will benefit from outpatient diabetes education. If experiencing insurance issues when ordering lantus, please use the following Epic codes: Tresiba Flextouch pen U100, 5 pens/box (3mL per pen), epic code [id number] RECOMMENDATIONS TO INPATIENT NURSE: N/A PATIENT HISTORY/ASSESSMENT: Previously diagnosed: Type 2 Treatment prior to hospitalization: Oral Agent(s): Farxiga 10 mg daily, Januvia 100 mg daily, Amaryl 4 mg twice a day, metformin 500 mg twice a day; non-insulin injectable: Ozemic Needs blood glucose meter: Patient provided Patient is requesting blood glucose monitoring strips and lancets to be ordered through [facility] Scripts. Admission Dx: Sepsis BG on admission: 276 mg/dl Last HbA1c and date: Hemoglobin A1C (%) Date Value 05/12/2024 9.5 12/17/2022 8.4 10/26/2019 10.2 07/02/2019 9.7 04/19/2018 10.7 Hemoglobin A1C (POCT) (%) Date Value 02/18/2024 11.5 10/09/2023 10.4 05/26/2023 8.5 11/21/2022 8.0 08/15/2022 9.7 INTERVENTIONS/TOPICS COVERED: -Monitoring: BG targets, rationale for HGM, A1c meaning and target <7%, using a home glucose monitor, logging, testing frequency, and sharps disposal -Healthy Eating: impact of carbs on BG, Plate Method, basic carb counting, foods with carbs, portion sizes, healthy heart options, and Avoid skipping meals -Medications: medication safety/timing, medication side effects, insulin storage, site selection/rotation, pen injection instruction, sharps disposal, basal insulin, prandial insulin, and injectable insulin discussed: lispro (Humalog) and glargine (Lantus) Reviewed insulin regimen: Lantus 30 units every morning; Humalog 12 units AC only. Advised patient to not take meal time insulin if meal is skipped. Advised patient to follow discharge instructions for medication, doses, and frequency. Patient verbalized, I will lose my job with this insulin. 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 Active listening provided. Patient verbalized he is agreeable to using a once a day insulin and is hoping to remain on Ozempic. -Physical Activity: benefits of exercise, impact of exercise on BG, and exercise safety -Problem Solving: hypoglycemia s/sx/tx, hyperglycemia s/sx/tx, sick day rules, and pattern management -Reducing Risks: importance of BG control to reduce risks -Healthy Coping: impact of stress on BG and benefits of a support system, types of support (ex:family, friends, support groups, diabetes groups on social media) Dr. Lea, primary medical team residents, and Ion Ash RN updated through secure message . This update included patient's concern for being on MDI regimen. EDUCATION: Cognitive ability: Alert and Oriented. Motivation to learn: Interested. Barriers to learning: None Family support: Unable to assess - Family not present Education Type: Individual instruction Written instruction - handouts Verbal instruction Demonstration-Hands on Learning Response to education: States/Identifies. Education provided to: Patient. Teachback method used: Yes Handouts provided: Healthy You: Survival Skills, Diabetes Blueprint, One Touchmeter provided, Vouchers provided for Humalog, and log book. Addendum 05/16/2024 1456 Healthy You: Planning Healthy Meals, Portion Plate Placemat also provided to patient. Time Spent (Minutes): 45 SIGNATURE: Alesha Renee RN PATIENT NAME: Yamilka Sharma DATE: May 16, 2024 TIME: 8:05 AM PAGER: [phone] NoteHNO ID: [id number] Author: LEO LEA MD Service: Hospital Medicine Author Type: Resident Type: Progress Notes Filed: 05/15/2024 13:41 Note Text: Attestation signed by Leo Lea MD at 05/15/2024 1:41 PM The patient was seen and examined today by myself. I have reviewed labs, notes, images, procedures, and all other critical information necessary to implement a care plan. I have discussed with the above housestaff the patient's care, and was present for and instrumental in, the development of the assessment and plan. Leo Lea MD, [facility] Internal Medicine Inpatient PROGRESS NOTE PATIENT NAME: Yamilka Sharma SERVICE DATE: 05/15/2024 SERVICE TIME: 7:32 AM HOSPITAL DAY: 3 PRIMARY CARE PHYSICIAN: Najma Bloom DO CODE STATUS: Code Status: Full Code Days: [phone], please page Luiz Johnson MD for patient issues either through [employer] or [employer]. Nights: [phone], please page [facility] night coverage pager [phone] for Team 1,2 AND3. Impression: Yamilka Sharma is a 58 year old male who is admitted to the [facility] on 05/12/2024 for fever and tachycardia. Patient started to feel weak 3 days before being admitted . Patient reported severe pain (9/10) in his left knee. 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 INTERVAL HPI / Subjective: Today is day # 3, patient No joint pain is significantly improved Denies fever, chills, chest pain, abdominal pain and shortness of breath No other concerns Physical Exam / Objective: BP 139/87 Pulse 85 Temp 36.3 ?C (97.3 ?F) (Axillary) Resp 18 Ht 182.9 cm (6') Wt 123.7 kg (272 lb 9.6 oz) SpO2 93% BMI 36.97 kg/m? General Appearance: Obese and No distress HEENT: PERRLA Lungs: Clear Heart: Regular rate AND rhythm Abdomen: Soft Skin: Warm Musculoskeletal: No deformities, left knee joint swelling improved, tender to touch [improved than before], no signs of inflammatory changes over the left knee joint Neurologic/Psychiatric: Oriented to time, place AND person Intake/Output Summary (Last 24 hours) at 05/15/2024 0732 Last data filed at 05/15/2024 0347 Gross per 24 hour Intake 240 ml Output 1125 ml Net -885 ml Labs/Data: CBC: Recent Labs 05/15/2443305/14/24 0513 05/12/24 0817 05/11/241926 WBC 10.38 9.20 7.66 9.56 HB 11.2* 11.1* 11.2* 13.1 PLT 155 129* 123* 120* MCV 79.9* 81.0 80.5 82.3 RDWCV 14.6 14.7 14.8 14.8 NEUTP -- -- -- 84.9 ABSNEUT -- -- -- 8.12* LYMPHP -- -- -- 5.8 MONOP -- -- -- 8.7 EODINP -- -- -- 0.1 COAG: No results for input(s): APTT, INR in the last 168 hours. BMP: Recent Labs 05/15/2443305/14/2451205/13/24 0831 05/12/24 0817 05/11/24 192 GLUC 223* 192* 177* 235* 276* NA 131* 131* 130* 130* 129* K 4.8 4.3 4.6 4.2 4.7 CHLOR 95* 95* 95* 95* 89* CO2 23 24 22 23 22 ANION 13 12 13 12 18* BUN 44* 35* 39* 42* 48* CREAT 1.89* 1.90* 2.07* 2.12* 2.15* CHEM: Recent Labs 05/15/2443305/14/24 0513 05/13/24 0831 05/12/24 0817 05/11/24 192 ALB 3.2* 3.2* 3.3* -- 3.9 TPROT 7.2 6.9 6.8 -- 7.9 CA 8.8 8.7 8.7 8.6 9.2 HEPATIC: Recent Labs 05/15/24 0434 05/14/24 0513 05/13/24 0831 05/11/24 1927 ALKPHOS 91 83 74 82 ALT 15 13 12 18 AST 13* 13* 11* 16 TBILI 0.2 0.3 0.4 0.5 LIPASE -- -- -- 19 CARDIAC: No results for input(s): CKTEST, CKMB, CKMBP, TROPT, PBNP in the last 168 hours. URINALYSIS: Recent Labs 05/11/242023 SPGR 1.015 UGLUC 3+* UBILI Negative UKET 1+* UHB 2+* UPROT 2+* UWBC >25 /HPF* Estimated Creatinine Clearance: 57.1 mL/min (A) (based on SCr of 1.89 mg/dL (H)). Medications: Current Facility-Administered Medications Medication Dose Route Frequency NaCl 0.9% iv flush bag 20 mL INTRAVENOUS PRN ondansetron 4 mg tab(s) (ZOFRAN) 4 mg ORAL q 6 H PRN Or ondansetron (PF) 4 mg injection (ZOFRAN) 4 mg INTRAVENOUS q 6 H PRN acetaminophen 650 mg tab(s) (TYLENOL) 650 mg ORAL q 6 H PRN sodium bicarbonate 1,300 mg tab(s) 1,300 mg ORAL BID gabapentin 600 mg tab(s) (NEURONTIN) 600 mg ORAL TID rosuvastatin 40 mg tab(s) (CRESTOR) 40 mg ORAL DAILY albuterol HFA 90 mcg/actuation 2 Puff (PROVENTIL HFA, VENTOLIN HFA) 2 Puff INHALATION q 6 H PRN metoprolol tartrate (short acting) 25 mg tab(s) (LOPRESSOR) 25 mg ORAL q 12 H allopurinol 100 mg tab(s) (ZYLOPRIM) 100 mg ORAL BID DULoxetine 60 mg cap(s) (CYMBALTA) 60 mg ORAL BID dextrose 40 % 15 g 15 g ORAL PRN Or glucagon 1 mg injection 1 mg INTRAMUSCULAR PRN Or dextrose 10% iv bolus 12.5 g INTRAVENOUS PRN oxyCODONE IR 5 mg tab(s) (ROXICODONE) 5 mg ORAL q (more content not included)... [id number] NoteHNO ID: [id number] Author: LEO LEA MD Service: Hospital Medicine Author Type: Resident Type: Progress Notes Filed: 05/14/2024 13:33 Note Text: Attestation signed by Leo Lea MD at 05/14/2024 1:33 PM The patient was seen and examined today by myself. I have reviewed labs, notes, images, procedures, and all other critical information necessary to implement a care plan. I have discussed with the above housestaff the patient's care, and was present for and instrumental in, the development of the assessment and plan. Long D/W patient re: lifestyle and diet. He prefers to see his PCP than and emergency room clinician, but is willing to take insulin 4x daily. Given his very poorly controlled DM and TOD, while on 3 oral hypoglycemics and Ozempic, will start long-acting and prandial insulin. Will require frequent follow up and judicious keeping of records, as he has been hypo on lantus alone before. Still awaiting Podiatry consultation and MRI for probable OM of R great toe Leo Lea MD, [facility] Internal Medicine Inpatient PROGRESS NOTE PATIENT NAME: Yamilka Sharma SERVICE DATE: 05/14/2024 SERVICE TIME: 8:40 AM HOSPITAL DAY: 2 PRIMARY CARE PHYSICIAN: Najma Bloom DO CODE STATUS: Code Status: Full Code Days: [phone], please page Bradley Gamble MD for patient issues either through [employer] or [employer]. Nights: [phone], please page [facility] night coverage pager [phone] for Team 1,2 AND3. Impression: Yamilka Sharma is a 58 year old male who is admitted to the [facility] on 05/12/2024 for fever and tachycardia. Patient started to feel weak 3 days before being admitted . Patient reported severe pain (9/10) in his left knee. 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 INTERVAL HPI / Subjective: Today is day # 2, - Overnight Events: No fever, patient is still complaining of left knee pain (4-5/10) at rest, (9/10) on ambulation. Physical Exam / Objective: BP 112/64 Pulse 89 Temp 36.5 ?C (97.7 ?F) (Oral) Resp 18 Ht 182.9 cm (6') Wt 123.7 kg (272 lb 9.6 oz) SpO2 95% BMI 36.97 kg/m? General Appearance: Awake, alert, no acute distress. Skin: No rashes or lesions. Head: Normocephalic, atraumatic. Eyes: No pallor, no icterus, EOMI. Oropharynx: Moist mucosa, no oropharyngeal lesions. Neck: Supple, no JVD appreciated. Lungs: Symmetric expansion, clear to auscultation bilaterally. Heart: +S1, +S2, RRR, no murmurs, rubs or gallops appreciated. Abdomen: Normal active bowel sounds, soft, nontender. Extremities: Left knee large warm effusion, with tenderness, no erythema, limited ROM on flexion and extension. Abscess in right foot precisely big toe (possible osteomyelitis). With erythema at the metatarsal area Peripheral Pulses: to be assessed by PVR. Neurologic: AANDOx3, gross motor strength intact throughout. Intake/Output Summary (Last 24 hours) at 05/14/2024 1244 Last data filed at 05/14/2024 0815 Gross per 24 hour Intake 225 ml Output 1425 ml Net -1200 ml Labs/Data: CBC: Recent Labs 05/14/24 0513 05/12/24 0817 05/11/24 1927 WBC 9.20 7.66 9.56 HB 11.1* 11.2* 13.1 PLT 129* 123* 120* MCV 81.0 80.5 82.3 RDWCV 14.7 14.8 14.8 NEUTP -- -- 84.9 ABSNEUT -- -- 8.12* LYMPHP -- -- 5.8 MONOP -- -- 8.7 EODINP -- -- 0.1 COAG: No results for input(s): APTT, INR in the last 168 hours. BMP: Recent Labs 05/14/2451205/13/24 0805/12/24 0805/11/241926 GLUC 192* 177* 235* 276* NA 131* 130* 130* 129* K 4.3 4.6 4.2 4.7 CHLOR 95* 95* 95* 89* CO2 22 23 22 ANION 12 13 12 18* BUN 35* 39* 42* 48* CREAT 1.90* 2.07* 2.12* 2.15* CHEM: Recent Labs 05/14/24 0505/13/24 0805/12/24 0805/11/241926 ALB 3.2* 3.3* -- 3.9 TPROT 6.9 6.8 -- 7.9 CA 8.7 8.7 8.6 9.2 HEPATIC: Recent Labs 05/14/2451205/13/24 0805/11/241926 ALKPHOS 83 74 82 ALT 13 12 18 AST 13* 11* 16 TBILI 0.3 0.4 0.5 LIPASE -- -- 19 CARDIAC: No results for input(s): CKTEST, CKMB, CKMBP, TROPT, PBNP in the last 168 hours. URINALYSIS: Recent Labs 05/11/242023 SPGR 1.015 UGLUC 3+* UBILI Negative UKET 1+* UHB 2+* UPROT 2+* UWBC >25 /HPF* Estimated Creatinine Clearance: 56.8 mL/min (A) (based on SCr of 1.9 mg/dL (H)). Medications: Current Facility-Administered Medications Medication Dose Route Frequency NaCl 0.9% iv flush bag 20 mL INTRAVENOUS PRN ondansetron 4 mg tab(s) (ZOFRAN) 4 mg ORAL q 6 H PRN Or ondansetron (PF) 4 mg injection (ZOFRAN) 4 mg INTRAVENOUS q 6 H PRN acetaminophen 650 mg tab(s) (TYLENOL) 650 mg ORAL q 6 H PRN (more content not included)...[facility] [id number] NoteHNO ID: [id number] Author: VIRI ESCOBAR LSW Service: Care Management Author Type: Child Guidance Counselor Type: Care Mgt Initial Assessment Filed: 05/13/2024 14:27 Note Text: CARE MANAGEMENT: ASSESSMENT AND DISCHARGE PLAN SERVICE DATE: May 13, 2024 SERVICE TIME: 1419 PCP: Najma Bloom DO Primary Contact: Extended Emergency Contact Information Primary Emergency Contact: Jessica Sharma Address: [address] [place], [place] [id number] [place] [address] Mobile Relation: Spouse Secondary Emergency Contact: Yamilka Sharma Jr Mobile Relation: Son Admission Status: Inpatient Insurance Provider: [employer] PPO OOS Discharge Planning requested by: Per Department Practice Potential Transition Plans Advance Directives Current Advance Directive: Health Care Power of Candy Separator [place] In Chart: Yes Up To Date and Valid: Yes HCPOA paperwok on file within [employer] and verified to be current as of date/time of this note: yes Legal Next of Kin Hierarchy per [place] Revised Code: Healthcare Power of Candy Separator [place] MARLENE Padilla May 13, 2024 Current Living Arrangements and Support Lives with: Spouse/significant other Type of Residence: Private Residence (House) Support: Family members, Spouse/significant other How do you manage to accomplish the following: Independent: Ambulation;Bathe/Shower;Meals/Meal Prep;Dress;Going to the bathroom;Medication Management;Transportation to appointments/community Current Services/Equipment Discharge Planning Patient Goal(s): Be able to go home [place] Explained: [place] Given: No Reason Not Given: Patient refused;No placements necessary Are you interested in bedside delivery of your medications? No Discharge Planning Participant(s): Patient/Family Comments: Caregiver Assessment: Caregiver is ready, willing and able to meet the patient's needs as recommended by the inter-professional team: No Caregiver needed Transport at Discharge: Transportation Arrangements: Car Needs Prior to Discharge: Needs Prior to Discharge: To Be Determined Post-Acute Discharge Plan: Assessment completed. Pt came in with a fever and not feeling well. Pt is indep at home with . Further eval is needed to determine needs at d/c. CM to follow. SIGNATURE: MARLENE Padilla PATIENT NAME: Yamilka Sharma DATE: May 13, 2024 TIME: 2:19 PM CONTACT #: [phone] NoteHNO ID: [id number] Author: LIBIA SIBLEY MD Service: Hospital Medicine Author Type: Resident Type: Progress Notes Filed: 05/13/2024 18:31 Note Text: Attestation signed by Libia Sibley MD at 05/13/2024 6:31 PM (Updated) IM ATTENDING NOTES: I have seen and evaluated the patient and discussed the case with the resident physician. I agree with the assessment and plan as documented in the resident?s note. Vitals : I reviewed stable General : AO, NAD Chest CTA CVS RR S1 S2+ Abd, soft, NT #R foot ( big toe ) ulcer/ abscess and cellulitis, possible osteomyelitis Probably the source of the infection Continue vancomycin and zosyn Wound culture + GPC in cluster ID and podiatry consult blood culture no growth for one days Also left knee pain ,rheumatology and ortho was consulted. Tapped and fluid negative for crystals. Less likely septic Join but can't r/units will f/u on fluid culture . Possible pseudogout ? Re assess at am and May consider prednisone for pain Libia Sibley MD 05/13/24 [facility] Internal Medicine Inpatient PROGRESS NOTE PATIENT NAME: Yamilka Sharma SERVICE DATE: 05/13/2024 SERVICE TIME: 8:40 AM HOSPITAL DAY: 1 PRIMARY CARE PHYSICIAN: Najma Bloom DO CODE STATUS: Code Status: Full Code Days: [phone], please page Bradley Gamble MD for patient issues either through [employer] or [employer]. Nights: [phone], please page [facility] night coverage pager [phone] for Team 1,2 AND3. Impression: Yamilka Sharma is a 58 year old male who is admitted to the [facility] on 05/12/2024 for fever and tachycardia. Patient started to feel weak 3 days ago. Patient reported severe pain (9/10) in his left knee. 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 INTERVAL HPI / Subjective: Today is day # 1, - Overnight Events: No fever, patient is still complaining of left knee pain (5/10) at rest, (9/10) on ambulation. Physical Exam / Objective: BP 145/73 Pulse 112 Temp 37.9 ?C (100.2 ?F) (Oral) Resp 16 Ht 182.9 cm (6') Wt 123.7 kg (272 lb 9.6 oz) SpO2 95% BMI 36.97 kg/m? General Appearance: Awake, alert, no acute distress. Skin: No rashes or lesions. Head: Normocephalic, atraumatic. Eyes: No pallor, no icterus, EOMI. Oropharynx: Moist mucosa, no oropharyngeal lesions. Neck: Supple, no JVD appreciated. Lungs: Symmetric expansion, clear to auscultation bilaterally. Heart: +S1, +S2, RRR, no murmurs, rubs or gallops appreciated. Abdomen: Normal active bowel sounds, soft, nontender. Extremities: his left knee is tender to palpate, swollen with no redness or hotness. Abscess in right foot precisely big toe (possible osteomyelitis). With erythema at the metatarsal area Peripheral Pulses: to be assessed by PVR. Neurologic: AANDOx3, gross motor strength intact throughout. Intake/Output Summary (Last 24 hours) at 05/13/2024 1133 Last data filed at 05/13/2024 1054 Gross per 24 hour Intake 1000 ml Output 2550 ml Net -1550 ml Labs/Data: CBC: Recent Labs 05/12/24 0817 05/11/241926 WBC 7.66 9.56 HB 11.2* 13.1 PLT 123* 120* MCV 80.5 82.3 RDWCV 14.8 14.8 NEUTP -- 84.9 ABSNEUT -- 8.12* LYMPHP -- 5.8 MONOP -- 8.7 EODINP -- 0.1 COAG: No results for input(s): APTT, INR in the last 168 hours. BMP: Recent Labs 05/13/24 0831 05/12/24 0805/11/241926 GLUC 177* 235* 276* NA 130* 130* 129* K 4.6 4.2 4.7 CHLOR 95* 95* 89* CO2 22 23 22 ANION 13 12 18* BUN 39* 42* 48* CREAT 2.07* 2.12* 2.15* CHEM: Recent Labs 05/13/24 0831 05/12/24 0817 05/11/241926 ALB 3.3* -- 3.9 TPROT 6.8 -- 7.9 CA 8.7 8.6 9.2 HEPATIC: Recent Labs 05/13/24 0831 05/11/241926 ALKPHOS 74 82 ALT 12 18 AST 11* 16 TBILI 0.4 0.5 LIPASE -- 19 CARDIAC: No results for input(s): CKTEST, CKMB, CKMBP, TROPT, PBNP in the last 168 hours. URINALYSIS: Recent Labs 05/11/242023 SPGR 1.015 UGLUC 3+* UBILI Negative UKET 1+* UHB 2+* UPROT 2+* UWBC >25 /HPF* Estimated Creatinine Clearance: 52.2 mL/min (A) (based on SCr of 2.07 mg/dL (H)). Medications: Current Facility-Administered Medications Medication Dose Route Frequency NaCl 0.9% iv flush bag 20 mL INTRAVENOUS PRN ondansetron 4 mg tab(s) (ZOFRAN) 4 mg ORAL q 6 H PRN Or ondansetron (PF) 4 mg injection (ZOFRAN) 4 mg INTRAVENOUS q 6 H PRN acetaminophen 650 mg tab(s) (TYLENOL) 650 mg ORAL q 6 H PRN sodium bicarbonate 1,300 mg tab(s) 1,300 mg ORAL BID gabapentin 600 mg tab(s) (NEURONTIN) 600 mg ORAL TID rosuvastatin 40 mg tab(s) (CRESTOR) 40 mg ORAL DAILY lisinopril 2.5 mg tab(s) 2.5 mg ORAL (more content not included)...[facility] [id number] NoteHNO ID: [id number] Author: LIBIA SIBLEY MD Service: Hospital Medicine Author Type: Physician Type: Progress Notes Filed: 05/12/2024 17:15 Note Text: [facility] Internal Medicine Inpatient PROGRESS NOTE PATIENT NAME: Yamilka Sharma SERVICE DATE: 05/12/2024 SERVICE TIME: 8:40 AM HOSPITAL DAY: 0 PRIMARY CARE PHYSICIAN: Najma Bloom DO CODE STATUS: Code Status: Prior Days: [phone], please page Bardley Gamble MD for patient issues either through [employer] or [employer]. Nights: [phone], please page [facility] night coverage pager [phone] for Team 1,2 AND3. Impression: Yamilka Sharma is a 58 year old male who is admitted to the [facility] on 05/12/2024 for fever and tachycardia. Patient started to feel weak 2 days ago. Patient reported severe pain (9/10) in his left knee. 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 INTERVAL HPI / Subjective: Today is day # 0, - Overnight Events: patient is tachycardic, feverish and complaining of severe pain in his left knee. Physical Exam / Objective: BP 131/66 Pulse 116 Temp (!) 38.9 ?C (102 ?F) (Oral) Resp 18 Ht 182.9 cm (6') Wt 123.7 kg (272 lb 9.6 oz) SpO2 92% BMI 36.97 kg/m? General Appearance: Awake, alert, no acute distress. Skin: No rashes or lesions. Head: Normocephalic, atraumatic. Eyes: No pallor, no icterus, EOMI. Oropharynx: Moist mucosa, no oropharyngeal lesions. Neck: Supple, no JVD appreciated. Lungs: Symmetric expansion, clear to auscultation bilaterally. Heart: +S1, +S2, RRR, no murmurs, rubs or gallops appreciated. Abdomen: Normal active bowel sounds, soft, nontender. Extremities: his left knee is tender to palpate, swollen with no redness or hotness. Abscess in right foot precisely big toe (possible osteomyelitis). With erythema at the metatarsal area Peripheral Pulses: Strong peripheral pulses bilaterally. Neurologic: AANDOx3, gross motor strength intact throughout. Intake/Output Summary (Last 24 hours) at 05/12/2024 0840 Last data filed at 05/12/2024 0740 Gross per 24 hour Intake 500 ml Output 650 ml Net -150 ml Labs/Data: CBC: Recent Labs 05/11/241926 WBC 9.56 HB 13.1 PLT 120* MCV 82.3 RDWCV 14.8 NEUTP 84.9 ABSNEUT 8.12* LYMPHP 5.8 MONOP 8.7 EODINP 0.1 COAG: No results for input(s): APTT, INR in the last 168 hours. BMP: Recent Labs 05/11/241926 GLUC 276* NA 129* K 4.7 CHLOR 89* CO2 22 ANION 18* BUN 48* CREAT 2.15* CHEM: Recent Labs 05/11/241926 ALB 3.9 TPROT 7.9 CA 9.2 HEPATIC: Recent Labs 05/11/241926 ALKPHOS 82 ALT 18 AST 16 TBILI 0.5 LIPASE 19 CARDIAC: No results for input(s): CKTEST, CKMB, CKMBP, TROPT, PBNP in the last 168 hours. URINALYSIS: Recent Labs 05/11/242023 SPGR 1.015 UGLUC 3+* UBILI Negative UKET 1+* UHB 2+* UPROT 2+* UWBC >25 /HPF* Estimated Creatinine Clearance: 50.2 mL/min (A) (based on SCr of 2.15 mg/dL (H)). Medications: Current Facility-Administered Medications Medication Dose Route Frequency NaCl 0.9% iv flush bag 20 mL INTRAVENOUS PRN ondansetron 4 mg tab(s) (ZOFRAN) 4 mg ORAL q 6 H PRN Or ondansetron (PF) 4 mg injection (ZOFRAN) 4 mg INTRAVENOUS q 6 H PRN acetaminophen 650 mg tab(s) (TYLENOL) 650 mg ORAL q 6 H PRN sodium bicarbonate 1,300 mg tab(s) 1,300 mg ORAL BID gabapentin 600 mg tab(s) (NEURONTIN) 600 mg ORAL TID rosuvastatin 40 mg tab(s) (CRESTOR) 40 mg ORAL DAILY lisinopril 2.5 mg tab(s) 2.5 mg ORAL DAILY albuterol HFA 90 mcg/actuation 2 Puff (PROVENTIL HFA, VENTOLIN HFA) 2 Puff INHALATION q 6 H PRN metoprolol tartrate (short acting) 25 mg tab(s) (LOPRESSOR) 25 mg ORAL q 12 H dilTIAZem CD 240 mg cap(s) (CARDIZEM CD, CARTIA XT) 240 mg ORAL DAILY apixaban 5 mg tab(s) (ELIQUIS) 5 mg ORAL BID allopurinol 100 mg tab(s) (ZYLOPRIM) 100 mg ORAL BID DULoxetine 60 mg cap(s) (CYMBALTA) 60 mg ORAL BID dextrose 40 % 15 g 15 g ORAL PRN Or glucagon 1 mg injection 1 mg INTRAMUSCULAR PRN Or dextrose 10% iv bolus 12.5 g INTRAVENOUS PRN insulin lispro injection (rapid acting) (ADMElog) SUBCUTANEOUS w MEALS insulin glargine 18 Units pen (long acting) 18 Units SUBCUTANEOUS DAILY (8 AM) insulin lispro 6 Units injection (rapid acting) (ADMElog) 6 Units SUBCUTANEOUS w MEALS oxyCODONE IR 5 mg tab(s) (ROXICODONE) 5 mg ORAL q 6 H PRN vancomycin dosing and monitoring per pharmacy OTHER As Directed piperacillin-tazobactam iv piggyback 3.375 g in dextrose (iso-osmotic) 50 mL (ZOSYN) 3.375 g INTRAVENOUS q 6 H lactated ringers iv infusion 75 mL/hr INTRAVENOUS CONTINUOUS vancomycin 1.5 g in NaCl 0.9% 250 mL (VANCOCIN) 1.5 g INTRAVENOUS q 12 HR Assessment and Plan: Active Hospital Problems Diagnosis Date Noted Sepsis (HCC) 05/12/2024 Obesity, Class II, BMI 35-39. (more content not included)...[facility] 05-11-2024 Telephone encounter Note* Telephone Encounter - Dayami Moore MD - 05/11/2024 10:02 PM EDT A 58 y/o male, PMHx pAF (on rivaroxaban), CAD, CKD, HTN, and diabetes. Presented with fever and generalized weakness. Had a mechanical fall 1 day prior with resultant left knee pain. Febrile and tachycardic, abnormal UA. Cardiology cleared him for regular nursing floor. [facility] Work Phone: [phone] 352-357207-17-2024 Miscellaneous Notes* Telephone Encounter - Dayami Moore MD - 05/11/2024 10:02 PM EDT A 58 y/o male, PMHx pAF (on rivaroxaban), CAD, CKD, HTN, and diabetes. Presented with fever and generalized weakness. Had a mechanical fall 1 day prior with resultant left knee pain. Febrile and tachycardic, abnormal UA. Cardiology cleared him for regular nursing floor. documented in this encounterW[facility]06-[facility] History of Present illness Narrative* Epi Polanco MD - 04/19/2024 4:04 PM EDT . Chief complaint : Subjective : Yamilka Sharma is a 57 year old male seen for CKD follow up. SUBJECTIVE: Yamilka Sharma is a 57 year old, White, male who was seen on February 06, 2023, in follow up for acute kidney injury on chronic kidney disease stage III.. Patient denies any new diagnosis or symptoms. Denies intercurrent illness or hospitalization since last visit. Patient denies any other new medications. Patient denies NSAIDs use. Patient's blood pressure is well controlled at home. Patient's denies any dysuria, hematuria, foamy urine or other voiding complaints. Patient denies any leg swelling, SOB/TANG, orthopnea, PND or other symptoms of fluid overload. Patient denies any overt symptoms of uremia. Hospitaization Patient with a history of anemia, depression, diffuse large B-cell lymphoma, hypertension, previoushistory of hydronephrosis with ureteral stricture, hypomagnesemia, type 2 diabetes who was recentlyhospitalized with shortness of breath and fever and chills. At the time patient had a creatinine of3.66 BUN of 23. He was diagnosed with acute kidney injury on chronic kidney disease stage III with a baseline creatinine around 1.8 in the setting of obstructive nephropathy as well as prerenal/intravascular limb depletion from decreased p.o. intake and COVID-19. Patient was taking Lasix 1 tablet twice a day and lisinopril prior to hospitalization. He was also diagnosed with a UTI. Upon dischargecreatinine was 2.20. Patient refused to place the Villegas catheter at that time. Patient then had MCKAY secondary to ATN in the setting of PAVEL inhibitor s/p TURP and right ureteroscopic and right ureter stent placement. Previous baseline creatinine was around 1.8-2.0. Most recent creatinine on 02/02/2023 with a BUN 39 creatinine 1.75. ALLERGIES Allergen Reactions Aspartame Intolerance Severe headache Bactrim [Sulfametho* Hives, Intolerance Reaction: gas Sensitivity: Intolerance. Sensitivity: Intolerance Biaxin [Clarithromy* Unknown Indigestion/gas Influenza Vaccine T* Unknown Flu Monosodium Glutamat* Intolerance Severe headache Pantoprazole Diarrhea Sulfa (Sulfonamide * Rash, Hives Clindamycin Hcl Diarrhea, GI Upset, Vomiting Reaction: Nausea/vomiting/diarrhea Other Reaction: stomach cramps Sensitivity: Intolerance Current Outpatient Medications Medication Sig DULoxetine (CYMBALTA) 60 mg capsule Take 1 capsule by mouth two times a day. rosuvastatin (CRESTOR) 40 mg tablet take 1 tablet daily glimepiride (AMARYL) 4 mg tablet TAKE 1 TABLET TWICE A DAY WITH MEALS metFORMIN (GLUCOPHAGE) 500 mg tablet TAKE 1 TABLET DAILY WITH BREAKFAST FOR 14 DAYS THEN 1 TABLET TWICE A DAY WITH MEALS THEREAFTER gabapentin (NEURONTIN) 600 mg tablet Take 1 tablet by mouth three times a day for 90 days. lidocaine-prilocaine (EMLA) 2.5-2.5 % cream APPLY TO AFFECTED AREA NEEDED PRIOR TO CHEMOTHERAPY semaglutide (OZEMPIC) 1 mg/dose (4 mg/3 mL) pen Inject 1 mg subcutaneously one time a week. lisinopril 2.5 mg tablet Take 1 tablet by mouth once daily. blood sugar diagnostic (ONETOUCH VERIO TEST STRIPS) test strip 1 Strip two times a day. Use with blood glucose test two times a day. Insulin Dep? No dilTIAZem CD (CARDIZEM CD, CARTIA XT) 240 mg 24 hr capsule Take 1 capsule by mouth once daily. metoprolol tartrate, short acting, (LOPRESSOR) 25 mg tablet Take 1 tablet by mouth every 12 hours. SITagliptin phosphate (JANUVIA) 100 mg tablet Take 1 tablet by mouth once daily. dapagliflozin propanediol (FARXIGA) 10 mg tablet Take 1 tablet by mouth daily with breakfast. furosemide (LASIX) 40 mg tablet Take 1 tablet by mouth two times a day. ergocalciferol 50,000 unit capsule (VITAMIN D2, DRISDOL) TAKE 1 CAPSULE ONCE A WEEK apixaban (ELIQUIS) 5 mg tab(s) Take 1 tablet by mouth two times a day. sodium bicarbonate 650 mg tablet TAKE 2 TABLETS TWICE A DAY allopurinol (ZYLOPRIM) 100 mg tablet Take 1 tablet by mouth twice daily. potassium chloride (K-TAB) 10 mEq tablet Take 1 tablet by mouth once daily. ondansetron (ZOFRAN) 4 mg tablet Take 1 tablet by mouth every 8 hours as needed for nausea/vomiting. Blood-Glucose Meter 1 Each three times daily. Please match the test strips and lancets sildenafil (REVATIO) 20 mg tablet Take 3-5 tablets by mouth once daily as needed. albuterol HFA (PROVENTIL HFA, VENTOLIN HFA) 90 mcg/actuation inhaler USE 2 INHALATIONS INSTRUCTED EVERY 4 HOURS NEEDED FOR WHEEZING/SHORTNESS OF BREATH [START ON 04/20/2024] calcitriol (ROCALTROL) 0.25 mcg capsule Take 1 capsule by mouth every Thursday, Thursday, and Thursday. b complex, c, folic acid 1 mg renal vitamins (NEPHROCAPS) 1 mg capsule Take 1 capsule by mouth oncedaily. No current facility-administered medications for this visit. PAST MEDICAL HISTORY Diagnosis Date Acute exacerbation of chronic obstructive airways disease (HCC) Rx for augmentin, symptomatic care as needed. Patient denies COPD, asthma, uses an inhaler PRN usually about once a year with hot weather Anemia Depression Diffuse large B cell lymphoma (HCC) 07/14/2019 Encounter for screening for malignant neoplasm of prostate Essential hypertension continue Lisinopril Hydronephrosis Hydronephrosis with ureteral stricture Hypomagnesemia 10/30/2019 Nausea and vomiting 01/09/2023 Obesity, Class II, BMI 35-39.9 12/15/2022 DEISI (obstructive sleep apnea) mild and no CPAP Paroxysmal atrial fibrillation (HCC) 01/10/2023 Prostatitis 01/09/2023 Sepsis due to gram-negative UTI (HCC) (HCC) 10/25/2019 Thrombocytopenia (HCC) Type 2 diabetes mellitus (HCC) continue current meds Ureteral obstruction, left Urinary tract infection Vitamin D deficiency 01/09/2023 PAST SURGICAL HISTORY Procedure Laterality Date APPENDECTOMY 1982 BONE MARRO ASPIRATE & BIOPSY 07/20/2019 CYSTOSCOPY 2019 KNIFE,CARPAL TUNNEL,[id number] Bilateral Carpal Tunnel Surgery 06/10/2013 NEPHROSTOMY TUBE 06/2019 PAST SURGICAL HISTORY OF 2013 temporal arterial biopsy PAST SURGICAL HISTORY OF 2013 sinus scraping, deviated septum repair PAST SURGICAL HISTORY OF Right PURPLE POWER PORT RIGHT CHEST PAST SURGICAL HISTORY OF Right TESTICLE REMOVED PAST SURGICAL HISTORY OF 02/19/2021 ureter stent FAMILY HISTORY Problem Relation Age of Onset other (Other inflammatory connective disorder) Mother Scleroderma other (Respiratory disorder) Mother other (Rheumatologic disorder) Mother other (Systemic lupus) Mother Heart Father Diabetes Father Diabetes Brother Diabetes Brother Cancer No Family History Social History Tobacco Use Smoking status: Former Packs/day: 2.50 Years: 30.00 Additional pack years: 0.00 Total pack years: 75.00 Types: Cigarettes Start date: 10/26/1983 Quit date: 10/26/2014 Years since quittin.4 Smokeless tobacco: Never Tobacco comments: cigarette; Start date: 1983; Not interested in quitting smoking; Amount: 10-19 cigs/day; quit 06/2015; Tobacco modified 11/15/2015; Tobacco reviewed with patient 11/15/2015 Vaping Use Vaping Use: Never used Substance Use Topics Alcohol use: Yes Comment: occasional Drug use: No REVIEW OF SYMPTOMS: CONSTITUTIONAL: Denies fevers, chills, and weight changes. Denies fatigue/malaise. PULMONARY: Denies shortness of breath, wheezing, cough or hemoptysis. CARDIOLOGY: Denies chest pain, palpitations, TANG, orthopnea or PND. GI: No anorexia, nausea, vomiting, dysphagia, diarrhea, constipation, abdominal pain, hematochezia or melena. : No urinary hesitancy or dribbling. No nocturia or urinary frequency. No abnormal discharge. No hematuria, dysuria, or flank pain. MUSCULO-SKELETAL: No joint pain, swelling or erythema. SKIN: Denies any rashes or skin changes. No itching. EXTREMITIES: Denies any lower Extremity edema. Denies any claudication or peripheral ulcer. A full 12 point ROS was obtained and is negative other than that cited above. PHYSICAL EXAMINATION: BP 109/60 Pulse 87 Ht 182.9 cm (6') Wt 120.7 kg (266 lb) BMI 36.08 kg/m BMI 36.08 kg/(m^2) GENERAL: Well developed and well nourished, NAD. EYES: Conjunctivae- pink, Non-icterus sclera. HEENT : Normocephalic, atraumatic, oral pharynx clear, MMM and pink. NECK : Supple, No JVD. No cervical lymphadenopathy or masses. No thyromegaly or tenderness. RESPIRATORY: Resp efforts are WNL. Bilat equal air entry. CTA bilaterally CVS : Pericardial friction rub is absent. S1, S2 Normal. No [place], or gallops. EDEMA none VASCULAR: carotid pulses is palpable bilaterally; carotid bruit is absent; No Abdominal bruit. Peripheral pulse palpable . ABDOMEN: soft, non-distended, non-tender, Normoactive BS. No HSM. : NO CVA tenderness. bladder is not distended. SKIN: No rashes or ulcers present. No induration of skin or subcutaneous area. LAB DATA Component Latest Ref Rng & Units 02/02/2023 02/03/2023 Protein, Total 6.3 - 8.0 g/dL 7.0 Albumin 3.9 - 4.9 g/dL 3.6 (L) Calcium 8.5 - 10.2 mg/dL 9.1 Bilirubin, Total 0.2 - 1.3 mg/dL 0.2 Alkaline Phosphatase 38 - 113 U/L 78 AST 14 - 40 U/L 6 (L) ALT 10 - 54 U/L 9 (L) Glucose 74 - 99 mg/dL 230 (H) BUN 9 - 24 mg/dL 39 (H) Creatinine 0.73 - 1.22 mg/dL 1.75 (H) Sodium 136 - 144 mmol/L 137 Potassium 3.7 - 5.1 mmol/L 4.8 Chloride 97 - 105 mmol/L 105 CO2 22 - 30 mmol/L 22 Anion Gap 9 - 18 mmol/L 10 eGFR >=60 mL/min/1.73m 45 (L) GLUCOSE UA (POCT) Negative mg/dL 100 (A) BILIRUBIN UA (POCT) Negative Negative KETONE UA (POCT) Negative mg/dL Negative SPECIFIC GRAVITY UA (POCT) 1.005 - 1.030 1.015 HEMOGLOBIN/BLOOD UA (POCT) Negative Large (A) PH UA (POCT) 4.5 - 8.0 6.0 PROTEIN UA (POCT) Negative mg/dL 100 (A) UROBILINOGEN UA (POCT) Normal E.U./dL 0.2 NITRITE UA (POCT) Negative Negative LEUKOCYTES UA (POCT) Negative Large (A) COLOR UA (POCT) Yellow CLARITY UA (POCT) Clear WBC 3.70 - 11.00 k/uL 5.15 RBC 4.20 - 6.00 m/uL 3.40 (L) Hemoglobin 13.0 - 17.0 g/dL 8.6 (L) Hematocrit 39.0 - 51.0 % 27.3 (L) MCV 80.0 - 100.0 fL 80.3 MCH 26.0 - 34.0 pg 25.3 (L) MCHC 30.5 - 36.0 g/dL 31.5 RDW-CV 11.5 - 15.0 % 17.1 (H) Platelet Count 150 - 400 k/uL 108 (L) MPV 9.0 - 12.7 fL 10.2 Absolute nRBC <0.01 k/uL <0.01 Component Latest Ref Rng & Units 05/19/2023 WBC 3.70 - 11.00 k/uL 5.54 RBC 4.20 - 6.00 m/uL 4.52 Hemoglobin 13.0 - 17.0 g/dL 11.9 (L) Hematocrit 39.0 - 51.0 % 35.8 (L) MCV 80.0 - 100.0 fL 79.2 (L) MCH 26.0 - 34.0 pg 26.3 MCHC 30.5 - 36.0 g/dL 33.2 RDW-CV 11.5 - 15.0 % 14.8 Platelet Count 150 - 400 k/uL 95 (L) MPV 9.0 - 12.7 fL 10.2 Neut% % 58.2 Abs Neut (ANC) 1.45 - 7.50 k/uL 3.22 Lymph% % 29.1 Abs Lymph 1.00 - 4.00 k/uL 1.61 [place]% % 7.9 Abs [place] <0.87 k/uL 0.44 Eosin% % 3.8 Abs Eosin <0.46 k/uL 0.21 Baso% % 0.5 Abs Baso <0.11 k/uL 0.03 Immature Gran % % 0.5 IMMATURE GRANS (ABS) <0.10 k/uL 0.03 NRBC /100 WBC 0.0 Absolute nRBC <0.01 k/uL <0.01 DTYPE Auto Magnesium 1.7 - 2.3 mg/dL 1.8 Uric Acid 4.0 - 8.1 mg/dL 11.1 (H) PTH, Intact 15 - 65 pg/mL 116 (H) Vitamin D 25 Hydroxy 31.0 - 80.0 ng/mL 11.1 (L) Component Latest Ref Rng & Units 05/19/2023 Protein, Total 6.3 - 8.0 g/dL 6.8 Albumin 3.9 - 4.9 g/dL 4.1 Calcium 8.5 - 10.2 mg/dL 9.1 Bilirubin, Total 0.2 - 1.3 mg/dL 0.2 Alkaline Phosphatase 38 - 113 U/L 69 AST 14 - 40 U/L 12 (L) ALT 10 - 54 U/L 13 Glucose 74 - 99 mg/dL 225 (H) BUN 9 - 24 mg/dL 69 (H) Creatinine 0.73 - 1.22 mg/dL 2.33 (H) Sodium 136 - 144 mmol/L 137 Potassium 3.7 - 5.1 mmol/L 4.8 Chloride 97 - 105 mmol/L 104 CO2 22 - 30 mmol/L 21 (L) Anion Gap 9 - 18 mmol/L 12 eGFR >=60 mL/min/1.73m 32 (L) Component Latest Ref Rng & Units 12/16/2023 WBC 3.70 - 11.00 k/uL 6.70 RBC 4.20 - 6.00 m/uL 4.63 Hemoglobin 13.0 - 17.0 g/dL 12.5 (L) Hematocrit 39.0 - 51.0 % 37.3 (L) MCV 80.0 - 100.0 fL 80.6 MCH 26.0 - 34.0 pg 27.0 MCHC 30.5 - 36.0 g/dL 33.5 RDW-CV 11.5 - 15.0 % 13.7 Platelet Count 150 - 400 k/uL 109 (L) MPV 9.0 - 12.7 fL 12.3 Neut% % 68.7 Abs Neut (ANC) 1.45 - 7.50 k/uL 4.60 Lymph% % 17.9 Abs Lymph 1.00 - 4.00 k/uL 1.20 [place]% % 6.6 Abs [place] <0.87 k/uL 0.44 Eosin% % 5.7 Abs Eosin <0.46 k/uL 0.38 Baso% % 0.7 Abs Baso <0.11 k/uL 0.05 Immature Gran % % 0.4 IMMATURE GRANS (ABS) <0.10 k/uL 0.03 NRBC /100 WBC 0.0 Absolute nRBC <0.01 k/uL <0.01 DTYPE Auto Color Yellow Yellow Clarity Clear Cloudy (A) Glucose, Urine Negative 3+ (A) Bilirubin, Urine Negative Negative Ketones, Urine Negative Negative Specific [place], Ur 1.005 - 1.030 1.019 Hemoglobin/Blood,Ur Negative 1+ (A) pH, Urine <8.5 6.5 Protein, Urine Negative Trace (A) Urobilinogen 0.2-1.0 EU/dL 0.2 EU/dL Nitrites Negative Negative Leukest Negative 2+ (A) WBC, Urine 0-5 /HPF >20 /HPF (A) RBC, Urine 0-2 /HPF 0-2 /HPF Bacteria Negative /HPF Negative Epithelial Cells /HPF None Seen Hyaline Cast 0 /LPF 1-3 /LPF (A) Albumin 3.9 - 4.9 g/dL 4.2 Calcium 8.5 - 10.2 mg/dL 9.4 Phosphorus 2.7 - 4.8 mg/dL 4.1 Glucose 74 - 99 mg/dL 359 (H) BUN 9 - 24 mg/dL 57 (H) Creatinine 0.73 - 1.22 mg/dL 2.27 (H) Sodium 136 - 144 mmol/L 131 (L) Potassium 3.7 - 5.1 mmol/L 4.5 Chloride 97 - 105 mmol/L 93 (L) CO2 22 - 30 mmol/L 26 Anion Gap 9 - 18 mmol/L 12 eGFR >=60 mL/min/1.73m 32 (L) Magnesium 1.7 - 2.3 mg/dL 2.3 Uric Acid 4.0 - 8.1 mg/dL 6.7 Latest Ref Rng 04/18/2024 WBC 3.70 - 11.00 k/uL 7.07 RBC 4.20 - 6.00 m/uL 4.44 Hemoglobin 13.0 - 17.0 g/dL 12.1 (L) Hematocrit 39.0 - 51.0 % 37.1 (L) MCV 80.0 - 100.0 fL 83.6 MCH 26.0 - 34.0 pg 27.3 MCHC 30.5 - 36.0 g/dL 32.6 RDW-CV 11.5 - 15.0 % 14.6 Platelet Count 150 - 400 k/uL 139 (L) MPV 9.0 - 12.7 fL 10.9 Neut% % 69.9 Abs Neut (ANC) 1.45 - 7.50 k/uL 4.94 Lymph% % 17.0 Abs Lymph 1.00 - 4.00 k/uL 1.20 [place]% % 6.9 Abs [place] <0.87 k/uL 0.49 Eosin% % 4.2 Abs Eosin <0.46 k/uL 0.30 Baso% % 1.0 Abs Baso <0.11 k/uL 0.07 Immature Gran % % 1.0 IMMATURE GRANS (ABS) <0.10 k/uL 0.07 NRBC /100 WBC 0.0 Absolute nRBC <0.01 k/uL <0.01 DTYPE Auto Color Yellow Yellow Clarity Clear Cloudy ! Glucose, Urine Negative 3+ ! Bilirubin, Urine Negative Negative Ketones, Urine Negative Negative Specific [place], Ur 1.005 - 1.030 1.017 Hemoglobin/Blood,Ur Negative 1+ ! pH, Urine <8.5 6.0 Protein, Urine Negative Trace ! Urobilinogen 0.2-1.0 EU/dL 0.2 EU/dL Nitrites Negative Negative Leukest Negative 2+ ! WBC, Urine 0-5 /HPF >20 /HPF ! RBC, Urine 0-2 /HPF 0-2 /HPF Bacteria Negative /HPF Negative Epithelial Cells /HPF None Seen Hyaline Cast 0 /LPF 0 /LPF Protein, Total 6.3 - 8.0 g/dL 6.8 Albumin 3.9 - 4.9 g/dL 3.9 Calcium 8.5 - 10.2 mg/dL 9.2 Bilirubin, Total 0.2 - 1.3 mg/dL <0.2 (L) Alkaline Phosphatase 38 - 113 U/L 127 (H) AST 14 - 40 U/L 9 (L) ALT 10 - 54 U/L 9 (L) Glucose 74 - 99 mg/dL 337 (H) BUN 9 - 24 mg/dL 54 (H) Creatinine 0.73 - 1.22 mg/dL 2.35 (H) Sodium 136 - 144 mmol/L 133 (L) Potassium 3.7 - 5.1 mmol/L 4.3 Chloride 98 - 107 mmol/L 100 CO2 22 - 30 mmol/L 24 Anion Gap 8 - 15 mmol/L 9 eGFR >=60 mL/min/1.73m 31 (L) Cholesterol, Total <200 mg/dL 183 Triglyceride <150 mg/dL 995 (H) HDL Cholesterol >39 mg/dL 23 (L) Non HDL Cholesterol <130 mg/dL 160 (H) Fasting Time hrs 8 VLDL Cholesterol <30 mg/dL -- VLDL Cholesterol 108 (H) TC:HDL Ratio <5.10 7.96 (H) LDL Cholesterol -- LDL:HDL Ratio -- Creatinine, Ur Random (UCRR) 20.0 - 300.0 mg/dL 57.3 Albumin, Urine Random mg/L 72.3 Albumin/Creat Ratio <30 mg/g 126 (H) LDL Cholesterol, Direct <100 mg/dL 52 Phosphorus 2.7 - 4.8 mg/dL 3.4 Latest Ref Rng 03/04/2024 PTH, Intact 15 - 65 pg/mL 158 (H) Vitamin D 25 Hydroxy 31.0 - 80.0 ng/mL 41.3 Legend: (H) High ASSESSMENT AND PLAN 1) CKD Stage 3 BL 2.3-2.5 , GFR 30-35 -Etiology (likely) : DKD, A1C 8.5 -s/p TURP and right ureteroscopic and right ureter stent placement. -Previous baseline creatinine was around 2.3 - Does not need preparation for dialysis at this time. - Cr is 2.35 GFR 31 ACR 126 mg/g -UA > 20 WBC , LE + , asymptomatic UTI - K 4.5 -Will continue routine monitoring of chemistries. -Avoid all PICC lines, i.v.s and blood draws in arms above wrists as possible to preserve veins forpossible AV fistula or AVG. -Lisinorpil 10 mg po daily and off of metformin -Farxiga 10 mg po daily , on Ozemoic 1.0 q weekly -Lasix 40 mg daily, KCL 10 meq po daily as needed - -Sodium bicarbonate 650 mg 2 tablets twice a day _ 2) Hypertension: -Blood pressure is adequately controlled. -No changes to medications at this time. -The patient was advised to follow a low salt/DASH diet. 3) Anemia: -Hemoglobin is adequate. -Continue periodic monitoring of CBC and iron studies. 4) Secondary Hyperparathyroidism/CKD-MBD: pTH 158 Vit d 41 -Intact PTH, vitamin d, calcium, and phosphorus levels are acceptable. -No changes -in management. -Will continue to monitor these indices. 5) Acidosis: -Serum bicarbonate level is acceptable. - No changes in management. 6) Proteinuria: -Will continue monitor microalbumin/creatinine ratio. 7) Dyslipidemia: -The patient has moderate CKD and would benefit from aggressive lipid control with an LDL goal of <100 and TG less than 150mg/dl. 8) DM On amaryl and januvia Farxiga Amaryl decreased to 1 tabs po daily once we start on Farxiga 9) Hyperuricemia Uric acid6. 6.3 Allopurinol 100 mg po BID Add colchicine as needed Return in 4 months (on 08/19/2024). Epi Polanco MD documented in this encounterW[facility] Telephone encounter Note * Telephone Encounter - Criss Devi MA - 04/06/2024 7:18 AM EDT pharmacy electronically requesting refills as follows: Last seen 02/18/24 . Last refill 10/09/23 . Requested Prescriptions Pending Prescriptions Disp Refills rosuvastatin (CRESTOR) 40 mg tablet [Pharmacy Med Name: ROSUVASTATIN TABS 40MG] 90 tablet 3 Sig: take 1 tablet daily Please review and advise. Criss Devi MA [facility]06-12-2024 Miscellaneous Notes* Telephone Encounter - Criss Devi MA - 04/06/2024 7:18 AM EDT pharmacy electronically requesting refills as follows: Last seen 02/18/24 . Last refill 10/09/23 . Requested Prescriptions Pending Prescriptions Disp Refills rosuvastatin (CRESTOR) 40 mg tablet [Pharmacy Med Name: ROSUVASTATIN TABS 40MG] 90 tablet 3 Sig: take 1 tablet daily Please review and advise. Criss Devi MA documented in this encounterWadsworth-[facility]05-21-[facility]24 History of Present illness Narrative* Yamilka Lares Jr., MD - 03/15/2024 10:53 AM EDT ESTABLISHED PATIENT OFFICE VISIT HPI Yamilka Bernard Edith is a 58 year old male who presents Previous note Dr. Farah: Urinary retention, Lymphoma. S/P left ureteral reimplantation 2020 for distal ureteral stricture. Recent imaging shows bilateral hydro and patient had MCKAY. - Started on uroxatral (patient has sulfa allergy) S/P Cystoscopy, TURP and right ureteral stent placement. Left inna-ureter was wide and patent. He is doing well. Will keep stent for now. Will need cysto and right retrograde in 3-[address] Lares. 05/05/23 - doing well since last seen. Sp turp and r stent placement 3 months ago. Voiding well and emptying bladder still has r stent in place. Ct scan after surgery showed improved hydronephrosis with r stent in place and bladder decompressed. Cr however up to 2.09 03/15/24 - doing well since last seen. No symptoms. Sent back because recent ct read as bilateral pelviectasis. Reviewed by myself. Both systems seem decompressed except for extrarenal pelvis. This colleen normal variant. Cr stable at 2.24 LAB: Creatinine Date Value Ref Range Status 03/04/2024 2.24 (H) 0.73 - 1.22 mg/dL Final PSA Screening (ng/mL) Date Value 08/11/2023 0.13 01/29/2022 0.41 02/01/2019 0.2 02/26/2018 0.2 07/30/2016 0.2 04/17/2014 0.3 Glucose, Urine (no units) Date Value 12/16/2023 3+ 04/19/2020 NEGATIVE Bilirubin, Urine (no units) Date Value 12/16/2023 Negative 04/19/2020 NEGATIVE Ketones, Urine (no units) Date Value 12/16/2023 Negative 04/19/2020 NEGATIVE Specific [place], Ur (no units) Date Value 12/16/2023 1.019 04/19/2020 1.020 Hemoglobin/Blood,Ur Date Value 12/16/2023 1+ 01/09/2020 2+ pH, Urine (no units) Date Value 12/16/2023 6.5 04/19/2020 5.5 Protein, Urine (no units) Date Value 12/16/2023 Trace 04/19/2020 1+ Urobilinogen, Urine (EU/dL) Date Value 04/19/2020 0.2 Nitrites (no units) Date Value 12/16/2023 Negative 01/09/2020 Negative Nitrites Urine (no units) Date Value 04/19/2020 NEGATIVE WBC, Urine Date Value 12/16/2023 >20 /HPF 04/19/2020 >100 /hpf MEDICATIONS: metFORMIN (GLUCOPHAGE) 500 mg tablet TAKE 1 TABLET DAILY WITH BREAKFAST FOR 14 DAYS THEN 1 TABLET TWICE A DAY WITH MEALS THEREAFTER gabapentin (NEURONTIN) 600 mg tablet Take 1 tablet by mouth three times a day for 90 days. DULoxetine (CYMBALTA) 60 mg capsule Take 1 capsule by mouth once daily. DULoxetine (CYMBALTA) 60 mg capsule take 1 capsule by mouth twice a day lidocaine-prilocaine (EMLA) 2.5-2.5 % cream APPLY TO AFFECTED AREA NEEDED PRIOR TO CHEMOTHERAPY semaglutide (OZEMPIC) 1 mg/dose (4 mg/3 mL) pen Inject 1 mg subcutaneously one time a week. lisinopril 2.5 mg tablet Take 1 tablet by mouth once daily. blood sugar diagnostic ([employer]UCH VERIO TEST STRIPS) test strip 1 Strip two times a day. Use with blood glucose test two times a day. Insulin Dep? No dilTIAZem CD (CARDIZEM CD, CARTIA XT) 240 mg 24 hr capsule Take 1 capsule by mouth once daily. metoprolol tartrate, short acting, (LOPRESSOR) 25 mg tablet Take 1 tablet by mouth every 12 hours. SITagliptin phosphate (JANUVIA) 100 mg tablet Take 1 tablet by mouth once daily. dapagliflozin propanediol (FARXIGA) 10 mg tablet Take 1 tablet by mouth daily with breakfast. furosemide (LASIX) 40 mg tablet Take 1 tablet by mouth two times a day. ergocalciferol 50,000 unit capsule (VITAMIN D2, DRISDOL) TAKE 1 CAPSULE ONCE A WEEK apixaban (ELIQUIS) 5 mg tab(s) Take 1 tablet by mouth two times a day. sodium bicarbonate 650 mg tablet TAKE 2 TABLETS TWICE A DAY rosuvastatin (CRESTOR) 40 mg tablet Take 1 tablet by mouth once daily. glimepiride (AMARYL) 4 mg tablet Take 1 tablet by mouth two times a day with meals. allopurinol (ZYLOPRIM) 100 mg tablet Take 1 tablet by mouth twice daily. potassium chloride (K-TAB) 10 mEq tablet Take 1 tablet by mouth once daily. ondansetron (ZOFRAN) 4 mg tablet Take 1 tablet by mouth every 8 hours as needed for nausea/vomiting. Blood-Glucose Meter 1 Each three times daily. Please match the test strips and lancets sildenafil (REVATIO) 20 mg tablet Take 3-5 tablets by mouth once daily as needed. albuterol HFA (PROVENTIL HFA, VENTOLIN HFA) 90 mcg/actuation inhaler USE 2 INHALATIONS INSTRUCTED EVERY 4 HOURS NEEDED FOR WHEEZING/SHORTNESS OF BREATH REVIEW OF SYSTEMS Review of Systems Constitutional: Negative. Respiratory: Negative. Cardiovascular: Negative. Gastrointestinal: Negative. Genitourinary: Negative. Skin: Negative. Neurological: Negative. Psychiatric/Behavioral: Negative. HISTORIES PAST MEDICAL HISTORY Diagnosis Date Acute exacerbation of chronic obstructive airways disease (HCC) Rx for augmentin, symptomatic care as needed. Patient denies COPD, asthma, uses an inhaler PRN usually about once a year with hot weather Anemia Depression Diffuse large B cell lymphoma (HCC) 07/14/2019 Encounter for screening for malignant neoplasm of prostate Essential hypertension continue Lisinopril Hydronephrosis Hydronephrosis with ureteral stricture Hypomagnesemia 10/30/2019 Nausea and vomiting 01/09/2023 Obesity, Class II, BMI 35-39.9 12/15/2022 DEISI (obstructive sleep apnea) mild and no CPAP Paroxysmal atrial fibrillation (HCC) 01/10/2023 Prostatitis 01/09/2023 Sepsis due to gram-negative UTI (HCC) (HCC) 10/25/2019 Thrombocytopenia (HCC) Type 2 diabetes mellitus (HCC) continue current meds Ureteral obstruction, left Urinary tract infection Vitamin D deficiency 01/09/2023 FAMILY HISTORY Problem Relation Age of Onset other (Other inflammatory connective disorder) Mother Scleroderma other (Respiratory disorder) Mother other (Rheumatologic disorder) Mother other (Systemic lupus) Mother Heart Father Diabetes Father Diabetes Brother Diabetes Brother Cancer No Family History SOCIAL HISTORY Social History Tobacco Use Smoking status: Former Packs/day: 2.50 Years: 30.00 Additional pack years: 0.00 Total pack years: 75.00 Types: Cigarettes Start date: 10/26/1983 Quit date: 10/26/2014 Years since quittin.3 Smokeless tobacco: Never Tobacco comments: cigarette; Start date: 1983; Not interested in quitting smoking; Amount: 10-19 cigs/day; quit 06/2015; Tobacco modified 11/15/2015; Tobacco reviewed with patient 11/15/2015 Vaping Use Vaping Use: Never used Substance Use Topics Alcohol use: Yes Comment: occasional Drug use: No PHYSICAL EXAMINATION General appearance: Well appearing, alert, in no acute distress, and well- hydrated, well nourished Skin: Skin color, texture, turgor normal, no suspicious rashes or lesions Respiratory:+ effort Cardiovascular: Not examined GI: Normal abdominal exam, Abdomen soft, non-tender. No masses, organomegaly Musculoskeletal: Negative Neuro: Negative Genitourinary: not examined Impression: (N13.30) Hydronephrosis, unspecified hydronephrosis type (primary encounter diagnosis) Plan: Reasurrance prn Yamilka Lares Jr, MD 03/15/2024 documented in this encounterWadsworth-[facility]05-[facility] Telephone encounter Note * Telephone Encounter - Sonia Coffey MA - 03/15/2024 7:43 AM EDT Pharmacy requesting refills as follows: Last Office Visit 02/18/24 05/19/24. Last Refill 10/05/23. Requested Prescriptions Pending Prescriptions Disp Refills glimepiride (AMARYL) 4 mg tablet [Pharmacy Med Name: GLIMEPIRIDE TABS 4MG] 180 tablet 3 Sig: TAKE 1 TABLET TWICE A DAY WITH MEALS Please review and advise. Sonia Coffey MA [facility]05-21-2024 Miscellaneous Notes* Telephone Encounter - Sonia Coffey MA - 03/15/2024 7:43 AM EDT Pharmacy requesting refills as follows: Last Office Visit 02/18/24 05/19/24. Last Refill 10/05/23. Requested Prescriptions Pending Prescriptions Disp Refills glimepiride (AMARYL) 4 mg tablet [Pharmacy Med Name: GLIMEPIRIDE TABS 4MG] 180 tablet 3 Sig: TAKE 1 TABLET TWICE A DAY WITH MEALS Please review and advise. Sonia Coffey MA documented in this encounterWadsworth-[facility]05-15-2024 Telephone encounter Note * Telephone Encounter - Cordelia Floyd MA - 03/09/2024 7:59 AM EDT pharm requesting refills: Last office visit 02/18/2024. Last refill 12/29/2023 nov 05/19/2024 Requested Prescriptions Pending Prescriptions Disp Refills metFORMIN (GLUCOPHAGE) 500 mg tablet [Pharmacy Med Name: METFORMIN HCL TABS 500MG] 166 tablet 3 Sig: TAKE 1 TABLET DAILY WITH BREAKFAST FOR 14 DAYS THEN 1 TABLET TWICE A DAY WITH MEALS THEREAFTER Please review and advise. Cordelia Floyd MA [facility]05-15-2024 Miscellaneous Notes* Telephone Encounter - Cordelia Floyd MA - 03/09/2024 7:59 AM EDT pharm requesting refills: Last office visit 02/18/2024. Last refill 12/29/2023 nov 05/19/2024 Requested Prescriptions Pending Prescriptions Disp Refills metFORMIN (GLUCOPHAGE) 500 mg tablet [Pharmacy Med Name: METFORMIN HCL TABS 500MG] 166 tablet 3 Sig: TAKE 1 TABLET DAILY WITH BREAKFAST FOR 14 DAYS THEN 1 TABLET TWICE A DAY WITH MEALS THEREAFTER Please review and advise. Cordelia Floyd MA documented in this encounterWadsworth-[facility]05-13-2024 Miscellaneous Notes* Telephone Encounter - Sonia Coffey MA - 03/07/2024 10:50 AM EDT patient requesting refills as follows: Last Office Visit 02/18/24 NOV 05/19/24. Last Refill 02/18/24. Requested Prescriptions Pending Prescriptions Disp Refills gabapentin (NEURONTIN) 600 mg tablet 270 tablet 0 Sig: Take 1 tablet by mouth three times a day for 90 days. DULoxetine (CYMBALTA) 60 mg capsule 30 capsule 1 Sig: Take 1 capsule by mouth once daily. Please review and advise. Sonia Coffey MA documented in this encounterWadsworth-[facility]05-13-2024 Telephone encounter Note * Telephone Encounter - Sonia Coffey MA - 03/07/2024 10:50 AM EDT patient requesting refills as follows: Last Office Visit 02/18/24 NOV 05/19/24. Last Refill 02/18/24. Requested Prescriptions Pending Prescriptions Disp Refills gabapentin (NEURONTIN) 600 mg tablet 270 tablet 0 Sig: Take 1 tablet by mouth three times a day for 90 days. DULoxetine (CYMBALTA) 60 mg capsule 30 capsule 1 Sig: Take 1 capsule by mouth once daily. Please review and advise. Sonia Coffey MA [facility]05-10-[facility] History of Present illness Narrative* Martell Waterman MD - 03/04/2024 6:10 PM EDT The patient is a 57-year-old male. Presented with a left sided pelvic mass 5 cm in size with obstruction to the distal ureter. Biopsy consistent with diffuse large B-cell lymphoma. Initially requireda percutaneous nephrostomy to be placed. DiagnosedIn June 2019. The patient was given chemotherapy with Rituxan CHOP. Completed 6 cycles. PET scan after completion of therapy showed improvement but persistent FDG uptake. The options were discussed with the patient who did not want any additional therapy. The patient was subsequently given radiation to the area of PET avid disease. Received atotal of 54 Patel in 27 fractions between 01/12/2022 and 03/12/2022. The patient subsequently developed new cystic lesion in the posterior aspect of the bladder measuring 5 x 5.3 cm in size. There was no other areas of lymphadenopathy. PET scan done for further evaluation dated 05/14/2022 showed hypermetabolic uptake in the pelvic mass. No other area of uptake identified. This area was biopsied. Biopsy dated 05/23/2022 showed fibroinflammatory changes without any evidence of malignancy. The patient was complaining of increased frequency of urination. MRI of the pelvis subsequently performed showed a lesion extending into the inferior right bladder felt to be inflammatory in nature. He was seen by urology. They felt that this was a pelvic abscess and put him irina 2- week course of oral Cipro. Repeat imaging showed complete resolution of the abscess cavity. Patient was hospitalized for right-sided hydronephrosis. Also had COVID-19 as of 12/14/2022. Currently has a right ureteric stent placed. Resolution of the hydronephrosis noted. Etiology of the hydronephrosis felt to be due to prostatic hyperplasia. S/p TURBT. CT scan of the abdomen and pelvis done during his stay for abdominal pain dated 12/15/2022 showed bilateral hydronephrosis which is secondary to prostatic hyperplasia/BPH. This was treated with a nephrostomy tube placement followed by a subsequent TURP. Pathology of the prostatic tissue reviewed. Noevidence of any malignancy identified. Repeat CAT scans dated 02/16/2023 showed multiple lymph nodes borderline enlarged in the mediastinumthe largest in the right hilum measuring 1.8 x 1.3 cm in size previously was 1.2 x 1 cm in size. Noevidence of any other disease. No evidence of any retroperitoneal lymphadenopathy. Also had COVID-19 as of 12/14/2022. Repeat CAT scans of the chest abdomen pelvis dated 08/21/2023 showed atelectatic changes in both lung bases with some scarring. Shotty perivascular/aortocaval lymphadenopathy which is unchanged from the scan 6 months ago. No evidence of any breakthrough disease. The ureteric stent was removed. Removal was in August 2023. Repeat CAT scans of the chest and pelvis from 02/25/2024 shows no evidence of relapse. However dilated collecting system and hydronephrosis again noted in the right side. On examination:BP 95/64 Pulse 97 Temp 36.4 C (97.5 F) (Temporal) Resp 16 Wt 126.1 kg (278 lb) SpO2 100% BMI 37.70 kg/m The patient was awake alert oriented. Didn't appear to be in acute distress. HEENT: No pallor, icterus, cyanosis, oral cavity shows no evidence of mucositis, lesions, or ulcers. Trachea midline. No JVD, carotid bruit, thyromegaly, cervical lymphadenopathy or supra-infraclavicular lymphadenopathy. CVS: S1-S2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 10:46 AM EDT Patient's request for medication is as follows: Requested Prescriptions Pending Prescriptions Disp Refills dilTIAZem CD (CARDIZEM CD, CARTIA XT) 240 mg 24 hr capsule [Pharmacy Med Name: DILTIAZEM ER (CD) CAPS 240MG] 90 capsule 3 Sig: Take 1 capsule by mouth once daily. Prescription(s) as above. Please process accordingly. Marla Engel Ma documented in this encounterWadsworth-[facility]03-01-2024 Miscellaneous Notes* Telephone Encounter - Cordelia Floyd MA - 12/25/2023 1:40 PM EST Patient states he spoke to Dr. Polanco and Dr Polanco thinks it would be a good idea for him to be on the metformin with the ozempic. Patient states Dr. Polanco thinks metformin would protect his kidneys. Please advise I. Cordelia Floyd MA documented in this encounterWadsworth-[facility]itt[facility]03-01-2024 History of Present illness Narrative* Cordelia Floyd MA - 12/25/2023 1:37 PM EST ED Follow Up: Patient discharged from [facility] ED on 12/23/2023. 1. How are you feeling since your ED visit? Better Have your symptoms improved or resolved? A little better 2. Were you prescribed any medications while in the ED or advised to stop any medication? No - If yes, were you able to fill your prescriptions? Not applicable -if stopped medication, what was the medication? na 3. Were you advised to schedule a follow up appointment with your provider? Yes - If no, Do you feel like you need an appointment scheduled? No - If yes, Do you need this scheduled now or has this already been scheduled? No 4. Were you able to contact the office or partition notcher provider prior to your ED visit? Not applicable 5. Is there anything else I can do for you today? No Patient declined apt. At this time. Cordelia Floyd MA documented in this encounterWadsworth-[facility]ittman [facility]02-28-2024 History of Present illness Narrative* Xochitl Paredes APRN.CNP - 12/23/2023 3:35 PM EST This note was created using Algoliariter. Subjective Yamilka Sharma is a 58 year old male. 58 year old male with extensive PMH of DM, HTN, afib, CAD, presents for illness. Acute onset 2 days ago States on that Thursday he felt fatigued, chilled, and malaise Experienced diarrhea +nausea + headache Denies fever Denies cough. Today he presents related to worsening symptoms. States he is experiencing dizziness and Feelings of lightheaded. Headache Review of Systems Neurological: Positive for headaches. Objective BP 82/62 Pulse 78 Temp 36.2 C (97.2 F) Resp 16 Wt 127 kg (280 lb) SpO2 97% BMI 37.97 kg/m Physical Exam Assessment and Plan ASSESSMENT/PLAN: 1. Dizziness - ICD9: 780.4, ICD10: R42 (primary diagnosis) Given patients blood pressure reading of 82/62 and symptomatic sent to ED Declines EMS at bedside and endorses she will drive patient. 2. Hypotension, unspecified hypotension type - ICD9: 458.9, ICD10: I95.9 Given patients blood pressure reading of 82/62 and symptomatic sent to ED Declines EMS at bedside and endorses she will drive patient. Xochitl Paredes APRN.CNP documented in this encounterWadsworth-[facility]ittman [facility]02-22-2024 Miscellaneous Notes* Telephone Encounter - Sonia Coffey MA - 12/17/2023 5:22 PM EST Patient is informed Sonia Coffey MA * Addendum Note - Najma Bloom DO - 12/17/2023 5:14 PM ESTAddended by: NAJMA BLOOM on: 12/17/2023 05:14 PM Modules accepted: Orders * Telephone Encounter - Najma Bloom DO - 12/17/2023 5:13 PM EST Please notify patient that I sent in a prescription for Cymbalta 30 mg to [facility]. He can start this medication and if it helps him we can increase the dosage to 60 mg which usually is a little moreeffective. We can discuss this at his follow-up appointment on February 17.Najma Bloom DO * Telephone Encounter - Sonia Coffey MA - 12/17/2023 1:11 PM EST Patient called and left a message stating he saw Dr. Polanco and he suggested Cymbalta for his neuropathy. He would like to know if Dr. Bloom would be willing to prescribe this. If he needs to make anoffice visit he is willing Sonia Coffey MA documented in this encounterWadsworth-[facility]itt[facility]02-21-2024 History of Present illness Narrative* Epi Polanco MD - 12/16/2023 3:50 PM EST . Chief complaint : Subjective : Yamilka Sharma is a 57 year old male seen for CKD follow up. SUBJECTIVE: Yamilka Sharma is a 57 year old, White, male who was seen on February 06, 2023, in follow up for acute kidney injury on chronic kidney disease stage III.. Patient denies any new diagnosis or symptoms. Denies intercurrent illness or hospitalization since last visit. Patient denies any other new medications. Patient denies NSAIDs use. Patient's blood pressure is well controlled at home. Patient's denies any dysuria, hematuria, foamy urine or other voiding complaints. Patient denies any leg swelling, SOB/TANG, orthopnea, PND or other symptoms of fluid overload. Patient denies any overt symptoms of uremia. Hospitaization Patient with a history of anemia, depression, diffuse large B-cell lymphoma, hypertension, previoushistory of hydronephrosis with ureteral stricture, hypomagnesemia, type 2 diabetes who was recentlyhospitalized with shortness of breath and fever and chills. At the time patient had a creatinine of3.66 BUN of 23. He was diagnosed with acute kidney injury on chronic kidney disease stage III with a baseline creatinine around 1.8 in the setting of obstructive nephropathy as well as prerenal/intravascular limb depletion from decreased p.o. intake and COVID-19. Patient was taking Lasix 1 tablet twice a day and lisinopril prior to hospitalization. He was also diagnosed with a UTI. Upon dischargecreatinine was 2.20. Patient refused to place the Villegas catheter at that time. Patient then had MCKAY secondary to ATN in the setting of PAVEL inhibitor s/p TURP and right ureteroscopic and right ureter stent placement. Previous baseline creatinine was around 1.8-2.0. Most recent creatinine on 02/02/2023 with a BUN 39 creatinine 1.75. ALLERGIES Allergen Reactions Aspartame Other: See Comments Severe headache Bactrim [Sulfametho* Hives, Other: See Comments Reaction: gas Sensitivity: Intolerance. Sensitivity: Intolerance Biaxin [Clarithromy* Unknown Indigestion/gas Influenza Vaccine T* Unknown Flu Monosodium Glutamat* Other: See Comments Severe headache Pantoprazole Diarrhea Sulfa (Sulfonamide * Rash, Hives Clindamycin Hcl Diarrhea, GI Upset, Vomiting Reaction: Nausea/vomiting/diarrhea Other Reaction: stomach cramps Sensitivity: Intolerance Current Outpatient Medications Medication Sig gabapentin (NEURONTIN) 600 mg tablet Take 1 tablet by mouth three times a day for 90 days. metoprolol tartrate, short acting, (LOPRESSOR) 25 mg tablet Take 1 tablet by mouth every 12 hours. semaglutide (OZEMPIC) 0.25 mg or 0.5 mg (2 mg/3 mL) pen Inject 0.5 mg subcutaneously one time a week. SITagliptin phosphate (JANUVIA) 100 mg tablet Take 1 tablet by mouth once daily. dapagliflozin propanediol (FARXIGA) 10 mg tablet Take 1 tablet by mouth daily with breakfast. furosemide (LASIX) 40 mg tablet Take 1 tablet by mouth two times a day. ergocalciferol 50,000 unit capsule (VITAMIN D2, DRISDOL) TAKE 1 CAPSULE ONCE A WEEK apixaban (ELIQUIS) 5 mg tab(s) Take 1 tablet by mouth two times a day. sodium bicarbonate 650 mg tablet TAKE 2 TABLETS TWICE A DAY rosuvastatin (CRESTOR) 40 mg tablet Take 1 tablet by mouth once daily. glimepiride (AMARYL) 4 mg tablet Take 1 tablet by mouth two times a day with meals. lidocaine-prilocaine (EMLA) 2.5-2.5 % cream APPLY TO AFFECTED AREA NEEDED PRIOR TO CHEMOTHERAPY allopurinol (ZYLOPRIM) 100 mg tablet Take 1 tablet by mouth twice daily. potassium chloride (K-TAB) 10 mEq tablet Take 1 tablet by mouth once daily. lisinopril (ZESTRIL) 10 mg tablet TAKE 1 TABLET DAILY dilTIAZem CD (CARDIZEM CD, CARTIA XT) 240 mg 24 hr capsule Take 1 capsule by mouth once daily. ondansetron (ZOFRAN) 4 mg tablet Take 1 tablet by mouth every 8 hours as needed for nausea/vomiting. Blood-Glucose Meter 1 Each three times daily. Please match the test strips and lancets blood sugar diagnostic (BLOOD GLUCOSE TEST) test strip Use as instructed sildenafil (REVATIO) 20 mg tablet Take 3-5 tablets by mouth once daily as needed. albuterol HFA (PROVENTIL HFA, VENTOLIN HFA) 90 mcg/actuation inhaler USE 2 INHALATIONS INSTRUCTED EVERY 4 HOURS NEEDED FOR WHEEZING/SHORTNESS OF BREATH No current facility-administered medications for this visit. PAST MEDICAL HISTORY Diagnosis Date Acute exacerbation of chronic obstructive airways disease (HCC) Rx for augmentin, symptomatic care as needed. Patient denies COPD, asthma, uses an inhaler PRN usually about once a year with hot weather Anemia Depression Diffuse large B cell lymphoma (HCC) 07/14/2019 Encounter for screening for malignant neoplasm of prostate Essential hypertension continue Lisinopril Hydronephrosis Hydronephrosis with ureteral stricture Hypomagnesemia 10/30/2019 Nausea and vomiting 01/09/2023 Obesity, Class II, BMI 35-39.9 12/15/2022 DEISI (obstructive sleep apnea) mild and no CPAP Paroxysmal atrial fibrillation (HCC) 01/10/2023 Prostatitis 01/09/2023 Sepsis due to gram-negative UTI (HCC) (HCC) 10/25/2019 Thrombocytopenia (HCC) Type 2 diabetes mellitus (HCC) continue current meds Ureteral obstruction, left Urinary tract infection Vitamin D deficiency 01/09/2023 PAST SURGICAL HISTORY Procedure Laterality Date APPENDECTOMY 1982 BONE MARRO ASPIRATE & BIOPSY 07/20/2019 CYSTOSCOPY 2019 KNIFE,CARPAL TUNNEL,[id number] Bilateral Carpal Tunnel Surgery 06/10/2013 NEPHROSTOMY TUBE 06/2019 PAST SURGICAL HISTORY OF 2013 temporal arterial biopsy PAST SURGICAL HISTORY OF 2013 sinus scraping, deviated septum repair PAST SURGICAL HISTORY OF Right PURPLE POWER PORT RIGHT CHEST PAST SURGICAL HISTORY OF Right TESTICLE REMOVED PAST SURGICAL HISTORY OF 02/19/2021 ureter stent FAMILY HISTORY Problem Relation Age of Onset other (Other inflammatory connective disorder) Mother Scleroderma other (Respiratory disorder) Mother other (Rheumatologic disorder) Mother other (Systemic lupus) Mother Heart Father Diabetes Father Diabetes Brother Diabetes Brother Cancer No Family History Social History Tobacco Use Smoking status: Former Packs/day: 2.50 Years: 30.00 Additional pack years: 0.00 Total pack years: 75.00 Types: Cigarettes Start date: 10/26/1983 Quit date: 10/26/2014 Years since quittin.1 Smokeless tobacco: Never Tobacco comments: cigarette; Start date: 1983; Not interested in quitting smoking; Amount: 10-19 cigs/day; quit 06/2015; Tobacco modified 11/15/2015; Tobacco reviewed with patient 11/15/2015 Vaping Use Vaping Use: Never used Substance Use Topics Alcohol use: Yes Comment: occasional Drug use: No REVIEW OF SYMPTOMS: CONSTITUTIONAL: Denies fevers, chills, and weight changes. Denies fatigue/malaise. PULMONARY: Denies shortness of breath, wheezing, cough or hemoptysis. CARDIOLOGY: Denies chest pain, palpitations, TANG, orthopnea or PND. GI: No anorexia, nausea, vomiting, dysphagia, diarrhea, constipation, abdominal pain, hematochezia or melena. : No urinary hesitancy or dribbling. No nocturia or urinary frequency. No abnormal discharge. No hematuria, dysuria, or flank pain. MUSCULO-SKELETAL: No joint pain, swelling or erythema. SKIN: Denies any rashes or skin changes. No itching. EXTREMITIES: Denies any lower Extremity edema. Denies any claudication or peripheral ulcer. A full 12 point ROS was obtained and is negative other than that cited above. PHYSICAL EXAMINATION: BP 100/54 Pulse 85 Ht 182.9 cm (6') Wt 128.8 kg (284 lb) BMI 38.52 kg/m BMI 38.52 kg/(m^2) GENERAL: Well developed and well nourished, NAD. EYES: Conjunctivae- pink, Non-icterus sclera. HEENT : Normocephalic, atraumatic, oral pharynx clear, MMM and pink. NECK : Supple, No JVD. No cervical lymphadenopathy or masses. No thyromegaly or tenderness. RESPIRATORY: Resp efforts are WNL. Bilat equal air entry. CTA bilaterally CVS : Pericardial friction rub is absent. S1, S2 Normal. No Mur[place], or gallops. EDEMA none VASCULAR: carotid pulses is palpable bilaterally; carotid bruit is absent; No Abdominal bruit. Peripheral pulse palpable . ABDOMEN: soft, non-distended, non-tender, Normoactive BS. No HSM. : NO CVA tenderness. bladder is not distended. SKIN: No rashes or ulcers present. No induration of skin or subcutaneous area. LAB DATA Component Latest Ref Rng & Units 02/02/2023 02/03/2023 Protein, Total 6.3 - 8.0 g/dL 7.0 Albumin 3.9 - 4.9 g/dL 3.6 (L) Calcium 8.5 - 10.2 mg/dL 9.1 Bilirubin, Total 0.2 - 1.3 mg/dL 0.2 Alkaline Phosphatase 38 - 113 U/L 78 AST 14 - 40 U/L 6 (L) ALT 10 - 54 U/L 9 (L) Glucose 74 - 99 mg/dL 230 (H) BUN 9 - 24 mg/dL 39 (H) Creatinine 0.73 - 1.22 mg/dL 1.75 (H) Sodium 136 - 144 mmol/L 137 Potassium 3.7 - 5.1 mmol/L 4.8 Chloride 97 - 105 mmol/L 105 CO2 22 - 30 mmol/L 22 Anion Gap 9 - 18 mmol/L 10 eGFR >=60 mL/min/1.73m 45 (L) GLUCOSE UA (POCT) Negative mg/dL 100 (A) BILIRUBIN UA (POCT) Negative Negative KETONE UA (POCT) Negative mg/dL Negative SPECIFIC GRAVITY UA (POCT) 1.005 - 1.030 1.015 HEMOGLOBIN/BLOOD UA (POCT) Negative Large (A) PH UA (POCT) 4.5 - 8.0 6.0 PROTEIN UA (POCT) Negative mg/dL 100 (A) UROBILINOGEN UA (POCT) Normal E.U./dL 0.2 NITRITE UA (POCT) Negative Negative LEUKOCYTES UA (POCT) Negative Large (A) COLOR UA (POCT) Yellow CLARITY UA (POCT) Clear WBC 3.70 - 11.00 k/uL 5.15 RBC 4.20 - 6.00 m/uL 3.40 (L) Hemoglobin 13.0 - 17.0 g/dL 8.6 (L) Hematocrit 39.0 - 51.0 % 27.3 (L) MCV 80.0 - 100.0 fL 80.3 MCH 26.0 - 34.0 pg 25.3 (L) MCHC 30.5 - 36.0 g/dL 31.5 RDW-CV 11.5 - 15.0 % 17.1 (H) Platelet Count 150 - 400 k/uL 108 (L) MPV 9.0 - 12.7 fL 10.2 Absolute nRBC <0.01 k/uL <0.01 Component Latest Ref Rng & Units 05/19/2023 WBC 3.70 - 11.00 k/uL 5.54 RBC 4.20 - 6.00 m/uL 4.52 Hemoglobin 13.0 - 17.0 g/dL 11.9 (L) Hematocrit 39.0 - 51.0 % 35.8 (L) MCV 80.0 - 100.0 fL 79.2 (L) MCH 26.0 - 34.0 pg 26.3 MCHC 30.5 - 36.0 g/dL 33.2 RDW-CV 11.5 - 15.0 % 14.8 Platelet Count 150 - 400 k/uL 95 (L) MPV 9.0 - 12.7 fL 10.2 Neut% % 58.2 Abs Neut (ANC) 1.45 - 7.50 k/uL 3.22 Lymph% % 29.1 Abs Lymph 1.00 - 4.00 k/uL 1.61 [place]% % 7.9 Abs [place] <0.87 k/uL 0.44 Eosin% % 3.8 Abs Eosin <0.46 k/uL 0.21 Baso% % 0.5 Abs Baso <0.11 k/uL 0.03 Immature Gran % % 0.5 IMMATURE GRANS (ABS) <0.10 k/uL 0.03 NRBC /100 WBC 0.0 Absolute nRBC <0.01 k/uL <0.01 DTYPE Auto Magnesium 1.7 - 2.3 mg/dL 1.8 Uric Acid 4.0 - 8.1 mg/dL 11.1 (H) PTH, Intact 15 - 65 pg/mL 116 (H) Vitamin D 25 Hydroxy 31.0 - 80.0 ng/mL 11.1 (L) Component Latest Ref Rng & Units 05/19/2023 Protein, Total 6.3 - 8.0 g/dL 6.8 Albumin 3.9 - 4.9 g/dL 4.1 Calcium 8.5 - 10.2 mg/dL 9.1 Bilirubin, Total 0.2 - 1.3 mg/dL 0.2 Alkaline Phosphatase 38 - 113 U/L 69 AST 14 - 40 U/L 12 (L) ALT 10 - 54 U/L 13 Glucose 74 - 99 mg/dL 225 (H) BUN 9 - 24 mg/dL 69 (H) Creatinine 0.73 - 1.22 mg/dL 2.33 (H) Sodium 136 - 144 mmol/L 137 Potassium 3.7 - 5.1 mmol/L 4.8 Chloride 97 - 105 mmol/L 104 CO2 22 - 30 mmol/L 21 (L) Anion Gap 9 - 18 mmol/L 12 eGFR >=60 mL/min/1.73m 32 (L) Component Latest Ref Rng & Units 12/16/2023 WBC 3.70 - 11.00 k/uL 6.70 RBC 4.20 - 6.00 m/uL 4.63 Hemoglobin 13.0 - 17.0 g/dL 12.5 (L) Hematocrit 39.0 - 51.0 % 37.3 (L) MCV 80.0 - 100.0 fL 80.6 MCH 26.0 - 34.0 pg 27.0 MCHC 30.5 - 36.0 g/dL 33.5 RDW-CV 11.5 - 15.0 % 13.7 Platelet Count 150 - 400 k/uL 109 (L) MPV 9.0 - 12.7 fL 12.3 Neut% % 68.7 Abs Neut (ANC) 1.45 - 7.50 k/uL 4.60 Lymph% % 17.9 Abs Lymph 1.00 - 4.00 k/uL 1.20 [place]% % 6.6 Abs [place] <0.87 k/uL 0.44 Eosin% % 5.7 Abs Eosin <0.46 k/uL 0.38 Baso% % 0.7 Abs Baso <0.11 k/uL 0.05 Immature Gran % % 0.4 IMMATURE GRANS (ABS) <0.10 k/uL 0.03 NRBC /100 WBC 0.0 Absolute nRBC <0.01 k/uL <0.01 DTYPE Auto Color Yellow Yellow Clarity Clear Cloudy (A) Glucose, Urine Negative 3+ (A) Bilirubin, Urine Negative Negative Ketones, Urine Negative Negative Specific [place], Ur 1.005 - 1.030 1.019 Hemoglobin/Blood,Ur Negative 1+ (A) pH, Urine <8.5 6.5 Protein, Urine Negative Trace (A) Urobilinogen 0.2-1.0 EU/dL 0.2 EU/dL Nitrites Negative Negative Leukest Negative 2+ (A) WBC, Urine 0-5 /HPF >20 /HPF (A) RBC, Urine 0-2 /HPF 0-2 /HPF Bacteria Negative /HPF Negative Epithelial Cells /HPF None Seen Hyaline Cast 0 /LPF 1-3 /LPF (A) Albumin 3.9 - 4.9 g/dL 4.2 Calcium 8.5 - 10.2 mg/dL 9.4 Phosphorus 2.7 - 4.8 mg/dL 4.1 Glucose 74 - 99 mg/dL 359 (H) BUN 9 - 24 mg/dL 57 (H) Creatinine 0.73 - 1.22 mg/dL 2.27 (H) Sodium 136 - 144 mmol/L 131 (L) Potassium 3.7 - 5.1 mmol/L 4.5 Chloride 97 - 105 mmol/L 93 (L) CO2 22 - 30 mmol/L 26 Anion Gap 9 - 18 mmol/L 12 eGFR >=60 mL/min/1.73m 32 (L) Magnesium 1.7 - 2.3 mg/dL 2.3 Uric Acid 4.0 - 8.1 mg/dL 6.7 ASSESSMENT AND PLAN 1) CKD Stage 3 BL 2.3-2.5 , GFR 30-35 -Etiology (likely) : DKD, A1C 8.5 -s/p TURP and right ureteroscopic and right ureter stent placement. -Previous baseline creatinine was around 2.3 - Does not need preparation for dialysis at this time. - Cr is 2.27 from o 2.33 GFR 32 -UA > 20 WBC , LE + , asymptomatic UTI - K 4.5 -Will continue routine monitoring of chemistries. -Avoid all PICC lines, i.v.s and blood draws in arms above wrists as possible to preserve veins forpossible AV fistula or AVG. - Lisinorpil 10 mg po daily and off of metformin -Farxiga 10 mg po daily , on Ozemoic 0.5 q weekly -Lasix 40 mg daily, KCL 10 meq po daily as needed -Lisinopril 10 mg po daily -Sodium bicarbonate 650 mg 2 tablets twice a day _ 2) Hypertension: -Blood pressure is adequately controlled. -No changes to medications at this time. -The patient was advised to follow a low salt/DASH diet. 3) Anemia: -Hemoglobin is adequate. -Continue periodic monitoring of CBC and iron studies. 4) Secondary Hyperparathyroidism/CKD-MBD: pTH 116 Vit d 11.1 -Intact PTH, vitamin d, calcium, and phosphorus levels are acceptable. -No changes -in management. -Will continue to monitor these indices. 5) Acidosis: -Serum bicarbonate level is acceptable. - No changes in management. 6) Proteinuria: -Will continue monitor microalbumin/creatinine ratio. 7) Dyslipidemia: -The patient has moderate CKD and would benefit from aggressive lipid control with an LDL goal of <100 and TG less than 150mg/dl. 8) DM On amaryl and januvia Farxiga Amaryl decreased to 1 tabs po daily once we start on Farxiga 9) Hyperuricemia Uric acid6.7 Allopurinol 100 mg po BID Add colchicine as needed Return in 4 months (on 04/15/2024). Epi Polanco MD documented in this encounterWadsworth[facility]02-21-[facility]24 History of Present illness Narrative* Melissa Cruz RN - 12/16/2023 8:11 AM EST Patient is here for IVAD port flush/blood draw per [facility] protocol. IVAD is located in right upper chest. Site cleansed with Chloraprep IVAD accessed with a #20 gauge 3/4 non-coring Gripper needle Flush with 5cc's Normal Saline. Blood Return: Good. 10 cc's blood aspirated and discarded. Blood drawn for CBC, CMP, MAG, and Gold top. Flushed with: 20 ml Normal Saline. Non-coring needle removed. Paper tape applied to puncture site. Site negative for redness, edema or tenderness. Patient tolerated procedure well. documented in this encounterWadsworth-[facility]ittman [facility]02-12-2024 Miscellaneous Notes* Telephone Encounter - Sonia Coffey MA - 12/07/2023 7:47 AM EST Patient requesting refills as follows: Last Office Visit 11/19/23 nov 02/18/24. Last Refill 09/07/23. Requested Prescriptions Pending Prescriptions Disp Refills gabapentin (NEURONTIN) 600 mg tablet 270 tablet 0 Sig: Take 1 tablet by mouth three times a day for 90 days. Please review and advise. Sonia Coffey MA documented in this encounterWadsworth-[facility]ittman [facility]02-05-2024 History of Present illness Narrative* Raina Liu RN - 11/30/2023 10:19 AM EST Patient is here for IVAD port flush/blood draw. IVAD is located in right upper chest. Site cleansed with Chloraprep IVAD accessed with a #20 gauge 3/4 non-coring Gripper needle Flush with 5cc's Normal Saline. Blood Return: Good. 10 cc's blood aspirated and discarded. Blood drawn for CBC and CMP. Flushed with: 20 ml Normal Saline. Non-coring needle removed. Paper tape applied to puncture site. Site negative for redness, edema or tenderness. Patient tolerated procedure well. Raina Liu RN documented in this encounterWadsworth-Rittman [facility]01-30-2024 NoteHNO ID: [id number] Author: VARGAS BENTON, DO Service: ? Author Type: Physician Type: Progress Notes Filed: 11/24/2023 17:20 Note Text: [facility]ARDI[facility] OUTPATIENT VISIT DATE November 24, 2023 PRIMARY CARE PHYSICIAN: [place] [address] HISTORY OF PRESENT ILLNESS: Mr. Sharma is a 58 year old male. The patient returns for follow-up second history of paroxysmal atrial fibrillation on long-term anticoagulation with Eliquis as well as hypertension, hyperlipidemia and coronary artery disease. He denies chest discomfort, dyspnea, orthopnea, paroxysmal nocturnal dyspnea, palpitations, near-syncope or syncope. His biggest complaint is that of fatigue. PLAN AND RECOMMENDATIONS: The patient appears stable without apparent symptoms that would suggest angina or cardiac decompensation. Heart rate, blood pressure and recent cholesterol profile are favorable. We have therefore made no additions or changes. Dietary and lifestyle modification was otherwise reemphasized to facilitate risk factor reduction. Will look forward to reevaluating him in 6 months time. Vitals: BP 122/66 Pulse 88 Wt 129.5 kg (285 lb 7.9 oz) SpO2 97% BMI 38.72 kg/m? Physical Exam Vitals reviewed. Constitutional: General: He is not in acute distress. Appearance: Normal appearance. He is well-developed. He is not diaphoretic. HENT: Head: Normocephalic and atraumatic. Right Ear: External ear normal. Left Ear: External ear normal. Nose: Nose normal. Eyes: General: No scleral icterus. Right eye: No discharge. Left eye: No discharge. Pupils: Pupils are equal, round, and reactive to light. Neck: Thyroid: No thyromegaly. Vascular: No carotid bruit or JVD. Cardiovascular: Rate and Rhythm: Normal rate and regular rhythm. Heart sounds: No murmur heard. No friction rub. No gallop. Pulmonary: Effort: Pulmonary effort is normal. No respiratory distress. Breath sounds: Normal breath sounds. No wheezing or rales. Abdominal: General: Bowel sounds are normal. Palpations: Abdomen is soft. Musculoskeletal: General: Normal range of motion. Cervical back: Neck supple. Skin: General: Skin is warm and dry. Capillary Refill: Capillary refill takes less than 2 seconds. Coloration: Skin is not pale. Neurological: Mental Status: He is alert and oriented to person, place, and time. Cranial Nerves: No cranial nerve deficit. Psychiatric: Mood and Affect: Mood normal. Mood is not anxious or depressed. Behavior: Behavior normal. Thought Content: Thought content normal. Judgment: Judgment normal. Review of Systems Constitutional: Positive for fatigue. Negative for activity change, appetite change and unexpected weight change. HENT: Negative for ear pain and trouble swallowing. Eyes: Negative for pain and visual disturbance. Respiratory: Negative for chest tightness and shortness of breath. Cardiovascular: Negative for chest pain, palpitations and leg swelling. Gastrointestinal: Negative for abdominal pain and blood in stool. Endocrine: Negative for cold intolerance and heat intolerance. Genitourinary: Negative for dysuria, hematuria and scrotal swelling. Musculoskeletal: Negative for arthralgias and myalgias. Skin: Negative for pallor and rash. Allergic/Immunologic: Negative for immunocompromised state. Neurological: Negative for dizziness, syncope and light-headedness. Hematological: Negative for adenopathy. Does not bruise/bleed easily. Psychiatric/Behavioral: Negative for sleep disturbance. The patient is not nervous/anxious. PAST MEDICAL HISTORY Diagnosis Date Acute exacerbation of chronic obstructive airways disease (HCC) Rx for augmentin, symptomatic care as needed. Patient denies COPD, asthma, uses an inhaler PRN usually about once a year with hot weather Anemia Depression Diffuse large B cell lymphoma (HCC) 07/14/2019 Encounter for screening for malignant neoplasm of prostate Essential hypertension continue Lisinopril Hydronephrosis Hydronephrosis with ureteral stricture Hypomagnesemia 10/30/2019 Nausea and vomiting 01/09/2023 Obesity, Class II, BMI 35-39.9 12/15/2022 DEISI (obstructive sleep apnea) mild and no CPAP Paroxysmal atrial fibrillation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 Labs show improvement in RF and improvement in anemia. Please remind him to stay hydrated and notify us with any changes We will call him with stress test and zio results are completed and available. Xochitl Becerra APRN.CNP PT states he understands would like Eliquis sent to [facility] in [place] order today from his PCP [facility] * Telephone Encounter - Xochitl Becerra APRN.CNP - 02/04/2023 3:43 PM EDT Labs show improvement in RF and improvement in anemia. Please remind him to stay hydrated and notify us with any changes We will call him with stress test and zio results are completed and available. Xochitl Becerra APRN.CNP documented in this encounterWadsworth-Rittman [facility]04-12-2023 Miscellaneous Notes* Telephone Encounter - Criss Devi MA - 02/04/2023 9:35 AM EDT Patient's phones requesting refills as follows: Last seen 01/26/23 . Last refill eliquis was for 60 day supply and should be 90 for mail order, sodium 01/15/23 for 30 day supply . Requested Prescriptions Pending Prescriptions Disp Refills sodium bicarbonate 650 mg tablet 360 tablet 1 Sig: Take 2 tablets by mouth twice daily. apixaban (ELIQUIS) 5 mg tab(s) 180 tablet 3 Sig: Take 1 tablet by mouth twice daily. Please review and advise. Criss Devi MA documented in this encounterWadsworth-Rittman [facility]04-11-2023 History of Present illness Narrative* Osiris Fuentes - 02/03/2023 1:36 PM EDT February 03, 2023 1:36 PM Called and spoke to patient and his . Patient is scheduled to see Dr. Lares on 05/05/23 at 1:15 pm in [place]. Return to work letter is completed and sent over to patients PCP Dr. Bloom. Thank you Osiris Fuentes * Cheyanne Farah DO - 02/03/2023 11:34 AM EDT Images from the original note were not included. [facility] LOCATION: [address] [place] [address] POST-OPERATIVE PATIENT CC: Patient is here for post op. HPI: This is a 57 year old male who is status post TURP and right ureteral stent placement on 01/07/23. Patient's post-op status is good. Voiding well without catheter. Creatinine down to 1.75. Mild hematuria Smoking Status Reviewed: Yes DISPOSITION: Pain Assessment: Are you currently having pain? No 0 on a scale of 0 to 10 Wounds: NONE Bowels: normal Activity: limited Fluid Intake: normal PROCEDURE: NONE PVR 0 cc ASSESSMENT/PLAN: Urinary retention, Lymphoma. S/P left ureteral reimplantation 2020 for distal ureteral stricture. Recent imaging shows bilateral hydro and patient had MCKAY. - Started on uroxatral (patient has sulfa allergy) S/P Cystoscopy, TURP and right ureteral stent placement. Left inna-ureter was wide and patent. He is doing well. Will keep stent for now. Will need cysto and right retrograde in 3-[address] Lares. Cheyanne Farah DO MBA documented in this encounterWadsworth-Rittman [facility]04-04-2023 Miscellaneous Notes* Telephone Encounter - Criss Devi MA - 01/27/2023 12:09 PM EDT [employer] Disability Claims paperwork placed in Dr. Bloom green folder to be filled out and signed. Criss Devi MA documented in this encounterWadsworth-Rittman [facility]04-03-2023 Nurse Note* Criss Devi MA - 01/26/2023 3:17 PM EDT Patient's work letter has been faxed to [facility] [employer] at [phone] and [phone]. Criss Devi MA documented in this encounterWadsworth-Rittman [facility]04-03-2023 History of Present illness Narrative* Najma Bloom DO - 01/26/2023 11:20 AM EDT Transitional Care Management TCM Eligibility Documentation The following information was gathered during the initial Patient Outreach Encounter. Date of Outreach: 01/16/2023 Outreach Attempt 1: Contact Made Date of Discharge 01/15/2023 Some recent data might be hidden Summary Discharged from: [facility] Admit Date: 01/07/23 Admitted for: hydronephrosis, unspecified hydronephrosis type Criss Devi MA Provider Documentation Yamilka Sharma is a 57 year old male here today for a follow up to recent hospitalization. I have reviewed the patient's hospital course including diagnostic testing performed during this hospitalization, their discharge medications, and my assessment and plan with the patient and any family members present at today's visit. HPI: Pt was in [facility] from 01/07 to 01/15 for right hydronephrosis He had a right ureteral stent placed He has appt with urologist, Dr. Farah, next week He will be seeing Dr. 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 HENT: Negative for ear pain and hearing loss. Eyes: Negative for blurred vision and double vision. Respiratory: Negative for cough and shortness of breath. Cardiovascular: Positive for leg swelling. Negative for chest pain and palpitations. Gastrointestinal: Negative for constipation, diarrhea and heartburn. Genitourinary: Negative for dysuria and frequency. Musculoskeletal: Negative for back pain, falls, joint pain and myalgias. Skin: Negative for itching and rash. Neurological: Negative for dizziness, weakness and headaches. Endo/Heme/Allergies: Does not bruise/bleed easily. Psychiatric/Behavioral: Negative for depression and substance abuse. The patient does not have insomnia. Vitals BP 118/68 Pulse 87 Temp 36.6 C (97.9 F) Resp 18 Ht 180.3 cm (5' 11) Wt 125.4 kg (276 lb 6.4 oz) SpO2 98% BMI 38.55 kg/m Physical Exam Constitutional: Appearance: Normal appearance. He is obese. HENT: Head: Normocephalic and atraumatic. Nose: Nose normal. Mouth/Throat: Mouth: Mucous membranes are moist. Dentition: Normal dentition. Eyes: General: Lids are normal. Extraocular Movements: Extraocular movements intact. Conjunctiva/sclera: Conjunctivae normal. Pupils: Pupils are equal, round, and reactive to light. Neck: Thyroid: No thyroid mass or thyromegaly. Vascular: No carotid bruit. Trachea: Phonation normal. Cardiovascular: Rate and Rhythm: Normal rate and regular rhythm. Heart sounds: Normal heart sounds. No murmur heard. No friction rub. No gallop. Pulmonary: Effort: Pulmonary effort is normal. Breath sounds: Normal breath sounds. No wheezing or rales. Abdominal: General: Bowel sounds are normal. There is no distension. Palpations: Abdomen is soft. There is no mass. Tenderness: There is no abdominal tenderness. Musculoskeletal: General: Swelling (nonpitting edema of left lower extremity to mid-harris) present. No tenderness. Normal range of motion. Cervical back: Normal range of motion and neck supple. No edema. Lymphadenopathy: Cervical: No cervical adenopathy. Skin: General: Skin is warm and dry. Findings: No erythema or rash. Nails: There is no clubbing. Neurological: Mental Status: He is alert and oriented to person, place, and time. Cranial Nerves: No cranial nerve deficit. Motor: Motor function is intact. Coordination: Coordination normal. Gait: Gait is intact. Psychiatric: Attention and Perception: Attention normal. Mood and Affect: Mood and affect normal. Speech: Speech normal. Behavior: Behavior normal. Behavior is cooperative. Thought Content: Thought content normal. Cognition and Memory: Cognition and memory normal. Judgment: Judgment normal. ASSESSMENT/PLAN: 1. Atrial fibrillation with RVR (HCC) - ICD9: 427.31, ICD10: I48.91 (primary diagnosis) Continue eliquis 2. Ureteral obstruction, right - ICD9: 593.4, ICD10: N13.5 Return to work 02/23 Send letters to Maryam and Sia and [employer] letting them know he is waiting for clearance from otherdoctors Pt has appt to confirm return to work here on 02/20 3. Obesity, Class II, BMI 35-39.9 - ICD9: 278.00, ICD10: E66.9 Lifestyle modification recommended Najma Bloom DO January 26, 2023 7:37 AM documented in this encounterWadsworth-Rittman [facility]03-30-2023 History of Present illness Narrative* Ernesto Dailey RN - 01/22/2023 4:11 PM EDT TRANSITION CARE MANAGEMENT (TCM) FOLLOW-UP NOTE Provider Action/FYI Patient has hospital f/u appt w/Dr. Bloom 01/26/ Summary: Call placed to patient. No answer. Message left on identified voicemail regarding call to check on patient's health status. Nurse's number left to call with any questions/concerns. Rock Worker plan for next outreach: Will follow up in 1-2 weeks. Signature Ernesto Dailey RN January 22, 2023 documented in this encounterWadsworth-Rittman [facility]03-25-2023 Miscellaneous Notes* Telephone Encounter - Ashwini Fletcher APRN.JU - 01/17/2023 7:15 AM EDT Pt seen inpt at [facility] for Paroxysmal atrial fibrillation with RVR, he did spontaneously convert to sinus rhythm. He has [id number] score of 2, started on eliquis after his urological issues resolved. Pt wishes to follow close to home, Patient would like to follow in [place] closer to his home, will arrange outpatient follow up with Dr. Nemesio Benton. thank you, Ashwini Fletcher APRN.JU documented in this encounterWadsworth-Rittman [facility]03-24-2023 History of Present illness Narrative* Criss Devi MA - 01/16/2023 3:12 PM EDT Patient informed to stay off the metformin. Patient states they stopped his insulin. Patient wantedto know if his januvia dose could be increased. Please advise. Criss Devi MA * Najma Bloom DO - 01/16/2023 12:52 PM EDT Pt should stay off metformin because of kidney function. Did they change his insulin? Najma Bloom DO * Ernesto Dailey RN - 01/16/2023 10:34 AM EDT TRANSITIONAL CARE MANAGEMENT (TCM) COMMUNITY MONITORING PROGRAM - [place] Provider Action/FYI: [facility] d/c 01/15 TURP Patient has appt scheduled w/Dr. Bloom 01/26 at 11:20am This is not a hospital f/u. I do see an open appt at 11:40am Can his appt be changed to a TCM hospital f/u please States he was not being given Metformin in the hospital and it is not on d/c instructions. Wondering if you want him to resume or wait d/t kidney function. States blood sugars are still running all over the place right now. General: Patient states he does feel weak d/t having been in bed for so long in the hospital. Mild pain but manageable. Still has some occasional blood in urine. He is drinking increased fluids to keep urine clear. State feels a little short of breath at times d/t weakness. After Visit Summary: Reviewed w/patient. Upcoming appts: Reviewed w/patient. Medications: Reviewed w/patient. Instruction: Monitor temp, drink increased fluids, do deep breathing 10x/hour, monitor blood sugars-report blood sugars that continue to read 180 > several x in a row. SUMMARY: Pt discharged from [facility] on 01/15/23. Admitted for: TURP Contact made with patient: Yes Hi my name is Ernesto Dailey RN and I am calling from the [facility] on behalfof your PCP, Najma Bloom, DO I understand you were recently in the hospital so I am calling to check in with you to ensure you are feeling well now that you re home. Do you mind if I ask you a few questions related to your hospital stay and well-being Yes Contact with patient post discharge, spoke to patient. Patient identified by name and . Do you feel your health is BETTER, WORSE, or the SAME since leaving the hospital? Better ACTION TAKEN: Patient indicated symptoms are better or same, no action required. Continue outreach. MEDICATIONS: Many patients have questions or concerns about their medications once they are home. Do you have any questions about taking your medications or which medication you should be on? Yes Do you need any medication refills at this time, including any of the medications you might take only when needed? No ACTION TAKEN: Patient has questions about medications - Inform PCP care team will be in contact to discuss further. Routed to PCP and indicated in the FYI box. For RNs or Pharmacy completing outreach ONLY, was a medication review completed? Yes SOCIAL: We would like to make sure you have what you need so that your basics needs are met - including your personal safety, food, housing and medications. Would you like to speak with a social work field marketing team leader to help give you support for any of these needs? No It can be normal to feel anxious or down during a time like this. Would you like to talk to a mental health professional about how you have been feeling? No ACTION TAKEN: No action taken DISCHARGE INTRUCTIONS: Your discharge instructions / After Visit Summary (AVS) are important in guiding you through the recovery process. Do you have any questions related to your discharge instructions? No Do you have all the necessary equipment and supplies at home? Yes ACTION TAKEN: No action required Thank you for talking with me today. I would like to help you schedule a hospital follow-up virtualor telephone visit with your PCP. This is a great way for you to connect with your provider to ensure you have safely transitioned home. If you are agreeable, I will send your request to a recruiting scheduler who will contact and assist you with that appointment. This will give you an opportunity to ask any questions or address any concerns you may have with your PCP. Inform the patient that if they have any questions or concerns prior to that appointment, to call their PCP's office right away. ACTION TAKEN: No action required, patient already has an appointment scheduled. Your doctor would like us to remind you of the recommendations regarding the coronavirus (Covid19) outbreak: Avoid public places as much as possible. Avoid close contact (within 6 feet) with others you don't live with, especially if they are sick. Stay home if you are sick. Wash your hands regularly for at least 20 seconds with soap and water. Wear a cloth mask in public places to help reduce community spread. Do not go to your Doctor's office unless instructed to do so. For any non- emergency symptoms, call your Doctor's office to get instructions on how to manage (we might recommend a telephone or virtualvisit). For emergency symptoms, proceed to Emergency Department as usual but inform them of cough and fever symptoms LU if present (or call on the way if possible). TCM Home Visit Referral Source of Stratification: [facility] Admission Status: Discharged Readmission Risk Score: 37 OSCAR Score: 12 Patient meets program referral criteria: No Patient does not qualify for High Risk TCM Home Visit program due to: Discharged home, does not meet program criteria Ernesto Dailey RN January 16, 2023 10:35 AM documented in this encounterWadsworth-Rittman [facility]03-24-2023 Miscellaneous Notes* Telephone Encounter - Sonia Coffey MA - 01/16/2023 7:37 AM EDT Pharmacy requesting refills as follows: Last Office Visit 12/22/21. Last Refill 11/21/22. Requested Prescriptions Pending Prescriptions Disp Refills JANUVIA 100 mg tablet [Pharmacy Med Name: JANUVIA 100 MG TABLET] 30 tablet 1 Sig: TAKE 1 TABLET BY MOUTH EVERY DAY Please review and advise. Sonia Coffey MA documented in this encounterWadsworth-Rittman Hospital03-21-2023 Miscellaneous Notes* Telephone Encounter - Cordelia Floyd MA - 01/13/2023 1:42 PM EDT Patient notified. Cordelia Floyd MA * Telephone Encounter - Najma Bloom DO - 01/13/2023 1:26 PM EDT I have printed the letter, if you can fax it and notify Yamilka we did this Najma Bloom DO * Telephone Encounter - Cordelia Floyd MA - 01/13/2023 12:20 PM EDT Patient lm on vm stating he is still in hospital and is in [facility]. He was wondering if you can send letter to amaury prieto that he is in hospital. He states all faxes are in chart. Cordelia Floyd MA documented in this encounterWadsworth-Rittman [facility]03-16-2023 Miscellaneous Notes* Telephone Encounter - Criss Devi MA - 01/08/2023 10:24 AM EDT Ama[facility] Prieto Short Term Disability Paperwork placed in Dr. Robert vogel folder to be filled out. Criss Devi MA documented in this encounterWadsworth-Rittman Hospital03-13-2023 Miscellaneous Notes* Telephone Encounter - Maciel Solitario - 01/05/2023 11:31 AM EDT Patient dropped off [place] paperwork for his son to be filled out by Dr. Bloom. Patient is having surgery on Saturday January 07, 2023 and the son needs time off to drive patient to appointment. Completed paperwork should be faxed to [phone]. Please call Patient when paperwork is completed and faxed. Paperwork placed in Dr. Bloom folder in front office. Macielmrakos Jerez documented in this encounterWadsworth-Rittman Hospital03-01-2023 History of Present illness Narrative* Osiris Fuentes - 12/24/2022 4:01 PM EST December 24, 2022 4:01 PM Spoke to patient in the office. Informed him I would call him tomorrow with more info.12/25/2022.. Osiris Fuentes * Cheyanne Farah DO - 12/24/2022 2:57 PM EST Images from the original note were not included. [facility] [place] [facility] LOCATION: [address] [place] [address] ESTABLISHED PATIENT PATIENT INFO: Yamilka Sharma 56 year old Chief Complaint: incomplete emptying, MCKAY HPI: History of L ureteral reimplantation in 01/2021. Cystoscopy, L ureteral stent placement in 03/2021. Has a history of L hydronephrosis Recent imaging showed bilateral hydronephrosis Patient had MCKAY - improved at the end of his hospitalization It was recommended that he get b/l PNTs and villegas placed - patient refused Refusing villegas today after being explained importance of a villegas (PVR 650) Some back soreness bilaterally - not as bad as it has been. Having lots of leakage after voiding Leaking at night Nocturia every hour 1-Duration: 2021 2-Location: bladder 3-Severity: N/A 4-Quality: Not applicable 5-Context: N/A 6-Timing: N/A 7-Modifying factors: No treatment prior to referral 8-Associated signs & symptoms: no additional symptoms No question data found. PATHOLOGY: NONE LAB: WBC (k/uL) Date Value 12/18/2022 4.92 RBC (m/uL) Date Value 12/18/2022 3.55 (L) Hemoglobin (g/dL) Date Value 12/18/2022 9.1 (L) Hematocrit (%) Date Value 12/18/2022 27.6 (L) MCV (fL) Date Value 12/18/2022 77.7 (L) MCH (pg) Date Value 12/18/2022 25.6 (L) MCHC (g/dL) Date Value 12/18/2022 33.0 RDW-CV (%) Date Value 12/18/2022 14.4 Platelet Count (k/uL) Date Value 12/18/2022 113 (L) MPV (fL) Date Value 12/18/2022 11.1 Neutrophils % (%) Date Value 12/17/2022 73.8 Lymphocytes % (%) Date Value 12/17/2022 12.6 Monocytes % (%) Date Value 12/17/2022 9.4 Eosin% (%) Date Value 10/31/2021 6.3 Basophils % (%) Date Value 12/17/2022 0.2 Abs Neut (k/uL) Date Value 12/17/2022 3.52 Abs Lymphs (Manual Diff) (k/uL) Date Value 05/14/2021 0.72 (L) Abs [place] (k/uL) Date Value 12/17/2022 0.45 Abs Eosin (k/uL) Date Value 12/17/2022 0.17 Abs Baso (k/uL) Date Value 12/17/2022 <0.03 Creatinine Date Value Ref Range Status 12/18/2022 2.20 (H) 0.73 - 1.22 mg/dL Final 12/17/2022 2.30 (H) 0.73 - 1.22 mg/dL Final 12/16/2022 2.56 (H) 0.73 - 1.22 mg/dL Final 12/15/2022 3.06 (H) 0.73 - 1.22 mg/dL Final PSA Screening (ng/mL) Date Value 01/29/2022 0.41 02/01/2019 0.2 02/26/2018 0.2 07/30/2016 0.2 04/17/2014 0.3 URINE POC GLUCOSE UA (POCT) >=1000 12/25/2020 BILIRUBIN UA (POCT) Negative 12/25/2020 KETONE UA (POCT) Negative 12/25/2020 SPECIFIC GRAVITY UA (POCT) 1.025 12/25/2020 HEMOGLOBIN/BLOOD UA (POCT) Small 12/25/2020 PH UA (POCT) 5.5 12/25/2020 PROTEIN UA (POCT) >=300 12/25/2020 UROBILINOGEN UA (POCT) 0.2 12/25/2020 NITRITE UA (POCT) Negative 12/25/2020 LEUKOCYTES UA (POCT) Small 12/25/2020 COLOR UA (POCT) Yellow 12/25/2020 CLARITY UA (POCT) Slightly Cloudy 12/25/2020 IMAGING: MRI: MRI PELVIS WO/W IVCON (Order [id number]) Patient Info Patient Name Sex Yamilka Franco ([id number]) Male 1965 07/07/2022 4:02 PM - Radiology, [place] In Impression IMPRESSION: Lesion involving the inferior right bladder with new lesions extending along the right rectum and involving the right pubococcygeus muscle which are likely infectious or inflammatory in nature and related to the prostate or seminal vesicles. Possibly of small abscesses should be considered. Focal area of asymmetry involving the left superior bladder with associated enhancement which may represent fibrosis or scarring from prior surgery versus developing neoplasm. Correlation with patient history, urine laboratory exams, and if indicated additional evaluation with cystoscopy may be helpful. Focal mural thickening involving the rectum related to contraction versus inflammatory change versus developing neoplasm. Direct visualization is recommended. I have independently reviewed films and my findings are the same. ALLERGIES: ALLERGIES Allergen Reactions Aspartame Other: See Comments Severe headache Bactrim [Sulfametho* Hives, Other: See Comments Reaction: gas Sensitivity: Intolerance. Sensitivity: Intolerance Biaxin [Clarithromy* Unknown Indigestion/gas Influenza Vaccine T* Unknown Flu Monosodium Glutamat* Other: See Comments Severe headache Pantoprazole Diarrhea Sulfa (Sulfonamide * Rash, Hives Clindamycin Hcl Diarrhea, GI Upset, Vomiting Reaction: Nausea/vomiting/diarrhea Other Reaction: stomach cramps Sensitivity: Intolerance MEDICATIONS: ondansetron (ZOFRAN) 4 mg tablet Take 1 tablet by mouth every 8 hours as needed for nausea/vomiting. Nebulizer and Compressor For Neb Use with duoneb 4 times per day as needed ipratropium-albuterol (DUONEB) 0.5 mg-3 mg(2.5 mg base)/3 mL nebu Inhale 3 mL as instructed every 6hours as needed for wheezing/shortness of breath. insulin NPH human (NOVOLIN N FLEXPEN) 100 unit/mL (3 mL) injection pen Inject 0- 10 Units subcutaneously before meals and at bedtime. If blood sugar less than 150, 0 units, 151-200, 2 units, 201-250, 4 units, 251-300, 6 units, 301-350, 8 units, 351-400, 10 units, over 400, 10 units and call this office Insulin Alzada, Disposable, (BD ULTRA-FINE PAULA PEN NEEDLE) 32 gauge x 5/32 Inject 1 Each subcutaneously four times daily as needed. Blood-Glucose Meter 1 Each three times daily. Please match the test strips and lancets blood sugar diagnostic (BLOOD GLUCOSE TEST) test strip Use as instructed metoprolol tartrate 37.5 mg tab Take 1 tablet by mouth twice daily. SITagliptin phosphate (JANUVIA) 100 mg tablet Take 1 tablet by mouth once daily. glimepiride (AMARYL) 2 mg tablet TAKE 3 TABLETS ONCE DAILY sildenafil (REVATIO) 20 mg tablet Take 3-5 tablets by mouth once daily as needed. albuterol HFA (PROVENTIL HFA, VENTOLIN HFA) 90 mcg/actuation inhaler USE 2 INHALATIONS INSTRUCTED EVERY 4 HOURS NEEDED FOR WHEEZING/SHORTNESS OF BREATH lidocaine-prilocaine (EMLA) 2.5-2.5 % cream APPLY TO AFFECTED AREA NEEDED PRIOR TO CHEMOTHERAPY acetaminophen (TYLENOL EXTRA STRENGTH ORAL) Take 1,000 mg by mouth three times daily. polyethylene glycol 3350 (MIRALAX, GLYCOLAX) 17 gram packet Take 1 Packet by mouth once daily. aspirin 81 mg chewable tablet Take 81 mg by mouth once daily. Does the patient take any herbal medications?: No HISTORIES PAST MEDICAL HISTORY Diagnosis Date Acute exacerbation of chronic obstructive airways disease (HCC) Rx for augmentin, symptomatic care as needed. Patient denies COPD, asthma, uses an inhaler PRN usually about once a year with hot weather Anemia Depression Diffuse large B cell lymphoma (HCC) 07/14/2019 Encounter for screening for malignant neoplasm of prostate Essential hypertension continue Lisinopril Hydronephrosis Hydronephrosis with ureteral stricture Hypomagnesemia 10/30/2019 DEISI (obstructive sleep apnea) mild and no CPAP Sepsis due to gram-negative UTI (HCC) 10/25/2019 Type 2 diabetes mellitus (HCC) continue current meds Ureteral obstruction, left Urinary tract infection Smoking Status Reviewed: Yes REVIEW OF SYSTEMS GENERAL: No fever, chills, weight loss, or fatigue. HEAD & NECK: No blurred vision or Sjogren's syndrome CARDIOVASCULAR: NO CHEST PAIN, PALPITATIONS, ANKLE EDEMA RESPIRATORY: No chronic cough, wheezing, dyspnea, hemoptysis. MUSCULOSKELETAL: NO CHRONIC BACK PAIN, ARTHRITIS, CHRONIC NECK PAIN SKIN: NO VARICOSE VEINS, RASH, ABNORMAL ITCHING BLOOD/LYMPHATIC: No easy bleeding, easy bruising, transfusion Hx NEUROLOGICAL: NO HEADACHES, NUMBNESS, SEIZURES, STROKE PSYCHIATRIC: No depression or inordinate anxiety The remainder of the ROS was negative. PHYSICAL EXAMINATION There were no vitals taken for this visit. General appearance: Well appearing, alert, in no acute distress, and well- hydrated, well nourished Skin: Skin color, texture, turgor normal, no suspicious rashes or lesions Head: Normocephalic, no masses, lesions, tenderness or abnormalities Abdomen: Normal abdominal exam, Abdomen soft, non-tender. Bowel sounds normal. 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 Recent imaging shows bilateral hydro and patient had MCKAY - improved at discharged (last Cr was 2.20). - Start uroxatral for BPH (patient has sulfa allergy) - needs cystoscopy, bilateral retrogrades, possible bilateral ureteroscopy, villegas placement - will consider TURP as well Schedule with Dr. Lares I spent 30 minutes in the visit, with more than 50% of the total [id number] time of the visit in counseling / coordination of care. Cheyanne Farah DO MBA documented in this encounterWadsworth-Rittman Hospital02-27-2023 Nurse Note* Criss Devi MA - 12/22/2022 1:49 PM EST Nebulizer order, facesheet and insurance card faxed to [employer] in [place] [phone]. Work letter faxed to [facility] at [phone] and [phone] as requested by patient. Criss Devi MA documented in this encounterWadsworth-Rittman Hospital02-27-2023 Instructions* Patient Instructions* Najma Bloom DO - 12/22/2022 1:37 PM EST Stop metformin until your kidney function is back to normal documented in this encounterWadsworth-Rittman Hospital02-27-2023 History of Present illness Narrative* Najma Bloom DO - 12/22/2022 1:00 PM EST Transitional Care Management TCM Eligibility Documentation The following information was gathered during the initial Patient Outreach Encounter. Date of Outreach: 12/19/2022 Outreach Attempt 1: Contact Not Made Date of Discharge 12/18/2022 Some recent data might be hidden Summary Discharged from: [facility] Admit Date: 12/14/22 Admitted for: Renal Failure Criss Devi MA Provider Documentation Yamilka Sharma is a 57 year old male here today for a follow up to recent hospitalization. I have reviewed the patient's hospital course including diagnostic testing performed during this hospitalization, their discharge medications, and my assessment and plan with the patient and any family members present at today's visit. HPI: Pt is here with his for hospital f/u Was in [facility] from 12/14 until 12/18/22 He was diagnosed with covid 19 on 12/14 He is still coughing Using chloraseptic sugar free spray for sore throat and cough Still has hoarse voice Cough is productive of sputum He is nauseated, will need zofran He would like a prescription for a nebulizer and the medication to use with the nebulizer He has acute KI, right ureter is now obstructed He had cancer affecting the left ureter which has resolved, but now needs surgery to clear the obstruction of the right ureter He cannot take gabapentin or lasix right now because of the kidney injury He will be seeing Dr. Farah, urologist His legs feel like tree trunks due to not taking the gabapentin He was told he can take metformin because his abnormal kidney function is due to the ureter being obstructed He would like to have 6 weeks off work due to his current illness Off work from 12/22/22 until 01/29/23 (7 weeks from his initial day off when he went in the hospital) Review of Systems Constitutional: Negative for chills, diaphoresis, fever, malaise/fatigue and weight loss. HENT: Negative for ear pain and hearing loss. Eyes: Negative for blurred vision and double vision. Respiratory: Positive for shortness of breath. Negative for cough. Cardiovascular: Positive for chest pain. Negative for palpitations and leg swelling. Gastrointestinal: Positive for nausea. Negative for constipation, diarrhea and heartburn. Genitourinary: Negative for dysuria and frequency. Musculoskeletal: Positive for myalgias. Negative for back pain, falls and joint pain. Skin: Negative for itching and rash. Neurological: Negative for dizziness, weakness and headaches. Endo/Heme/Allergies: Does not bruise/bleed easily. Psychiatric/Behavioral: Negative for depression and substance abuse. The patient does not have insomnia. Vitals BP 126/78 Pulse 86 Temp 36.8 C (98.3 F) Resp 18 Ht 180.3 cm (5' 11) Wt 124.1 kg (273 lb 9.6 oz) SpO2 99% BMI 38.16 kg/m Physical Exam Constitutional: Appearance: Normal appearance. He is obese. HENT: Head: Normocephalic and atraumatic. Nose: Nose normal. Mouth/Throat: Mouth: Mucous membranes are moist. Dentition: Normal dentition. Eyes: General: Lids are normal. Extraocular Movements: Extraocular movements intact. Conjunctiva/sclera: Conjunctivae normal. Pupils: Pupils are equal, round, and reactive to light. Neck: Thyroid: No thyroid mass or thyromegaly. Vascular: No carotid bruit. Trachea: Phonation normal. Cardiovascular: Rate and Rhythm: Normal rate and regular rhythm. Heart sounds: Normal heart sounds. No murmur heard. No friction rub. No gallop. Pulmonary: Effort: Pulmonary effort is normal. Breath sounds: No wheezing or rales. Comments: Diminished breath sounds in bases b/l Abdominal: General: Bowel sounds are normal. There is no distension. Palpations: Abdomen is soft. There is no mass. Tenderness: There is no abdominal tenderness. Musculoskeletal: General: No swelling or tenderness. Normal range of motion. Cervical back: Normal range of motion and neck supple. No edema. Lymphadenopathy: Cervical: No cervical adenopathy. Skin: General: Skin is warm and dry. Findings: No erythema or rash. Nails: There is no clubbing. Neurological: Mental Status: He is alert and oriented to person, place, and time. Cranial Nerves: No cranial nerve deficit. Motor: Motor function is intact. Coordination: Coordination normal. Gait: Gait is intact. Psychiatric: Attention and Perception: Attention normal. Mood and Affect: Mood and affect normal. Speech: Speech normal. Behavior: Behavior normal. Behavior is cooperative. Thought Content: Thought content normal. Cognition and Memory: Cognition and memory normal. Judgment: Judgment normal. ASSESSMENT/PLAN: 1. COVID - ICD9: 079.89, ICD10: U07.1 (primary diagnosis) Pt continues to have cough and nausea Denies shortness of breath - NEBULIZER AND COMPRESSOR - IPRATROPIUM 0.5 MG-ALBUTEROL 3 MG (2.5 MG BASE)/3 ML NEBULIZATION SOLN 2. Obstruction of right ureter - ICD9: 593.4, ICD10: N13.5 Pt will f/u with Dr. Farah and will most likely have surgery Has history of lymphoma causing obstruction of the left ureter in the past Pt will be off work from 12/22/22 until 01/29/23 3. Acute kidney injury (HCC) - ICD9: 584.9, ICD10: N17.9 Because pt has elevated creatinine, I recommend he stop metformin until his kidneys normalize, in spite of the fact that the elevated creatinine is due to one ureter being blocked Will readdress after pt's kidney levels have stabilized 4. Type 2 diabetes mellitus without complication, with long-term current use of insulin (HCC) - ICD9: 250.00, V58.67, ICD10: E11.9, Z79.4 Because pt has elevated creatinine, I recommend he stop metformin until his kidneys normalize, in spite of the fact that the elevated creatinine is due to one ureter being blocked Will readdress after pt's kidney levels have stabilized - NOVOLIN N FLEXPEN 100 UNIT/ML (3 ML) SUBCUTANEOUS INSULIN PEN - PEN NEEDLE, DIABETIC 32 GAUGE X - BLOOD-GLUCOSE METER - BLOOD GLUCOSE TEST STRIPS 5. Nausea - ICD9: 787.02, ICD10: R11.0 - ONDANSETRON HCL 4 MG TABLET 6. Obesity, Class II, BMI 35-39.9 - ICD9: 278.00, ICD10: E66.9 Lifestyle modification recommended Najma Bloom DO December 22, 2022 7:33 AM documented in this encounterWadsworth-Rittman Hospital02-27-2023 History of Present illness Narrative* Ernesto Dailey RN - 12/22/2022 9:48 AM EST TRANSITIONAL CARE MANAGEMENT (TCM) COMMUNITY MONITORING PROGRAM - [facility] Provider Action/FYI: Saeid d/aime 12/18 Renal Failure [facility] hospital f/u 12/22 at 1pm General: Patient states he is feeling about the same. States he feels his right kidney is tender and swollen and since he is unable to take his Lasix his feet/legs are swelling as well. He does see Dr. Bloom today 12/22. Sees urology 12/24. States his ureter is narrowed and will need fixed. Still feeling effects of Covid, feeling weak/tired, has no taste. Denies fever/chills. Still has some shortness of breath. Is going to discuss a nebulizer w/Dr. Bloom as well. Medications reviewed. Taking all medications on discharge list. States blood sugars more normal now that he was able to begin his regular medication regime. Following a low carb diet, eating protein w/each meal. SUMMARY: Pt discharged from [place] on 12/18/22. Admitted for: Renal Failure Contact made with patient: Yes Hi my name is Ernesto Dailey RN and I am calling from the [facility] on behalfof your PCP, Najma Sheets, DO I understand you were recently in the hospital so I am calling to check in with you to ensure you are feeling well now that you re home. Do you mind if I ask you a few questions related to your hospital stay and well-being Yes Contact with patient post discharge, spoke to patient. Patient identified by name and . Do you feel your health is BETTER, WORSE, or the SAME since leaving the hospital? Same ACTION TAKEN: Patient indicated symptoms are better or same, no action required. Continue outreach. MEDICATIONS: Many patients have questions or concerns about their medications once they are home. Do you have any questions about taking your medications or which medication you should be on? No Do you need any medication refills at this time, including any of the medications you might take only when needed? No ACTION TAKEN: No action required For RNs or Pharmacy completing outreach ONLY, was a medication review completed? No SOCIAL: We would like to make sure you have what you need so that your basics needs are met - including your personal safety, food, housing and medications. Would you like to speak with a social work field marketing team leader to help give you support for any of these needs? No It can be normal to feel anxious or down during a time like this. Would you like to talk to a mental health professional about how you have been feeling? No ACTION TAKEN: No action taken DISCHARGE INTRUCTIONS: Your discharge instructions / After Visit Summary (AVS) are important in guiding you through the recovery process. Do you have any questions related to your discharge instructions? No Do you have all the necessary equipment and supplies at home? Yes ACTION TAKEN: No action required Thank you for talking with me today. I would like to help you schedule a hospital follow-up virtualor telephone visit with your PCP. This is a great way for you to connect with your provider to ensure you have safely transitioned home. If you are agreeable, I will send your request to a recruiting scheduler who will contact and assist you with that appointment. This will give you an opportunity to ask any questions or address any concerns you may have with your PCP. Inform the patient that if they have any questions or concerns prior to that appointment, to call their PCP's office right away. ACTION TAKEN: No action required, patient already has an appointment scheduled. Your doctor would like us to remind you of the recommendations regarding the coronavirus (Covid19) outbreak: Avoid public places as much as possible. Avoid close contact (within 6 feet) with others you don't live with, especially if they are sick. Stay home if you are sick. Wash your hands regularly for at least 20 seconds with soap and water. Wear a cloth mask in public places to help reduce community spread. Do not go to your Doctor's office unless instructed to do so. For any non- emergency symptoms, call your Doctor's office to get instructions on how to manage (we might recommend a telephone or virtualvisit). For emergency symptoms, proceed to Emergency Department as usual but inform them of cough and fever symptoms LU if present (or call on the way if possible). TCM Home Visit Referral Source of Stratification: [facility] Admission Status: Discharged Readmission Risk Score: 28 OSCAR Score: 19 Patient meets program referral criteria: No Patient does not qualify for High Risk TCM Home Visit program due to: Discharged home, does not meet program criteria Ernesto Dailey RN December 22, 2022 9:50 AM * Ernesto Dailey RN - 12/19/2022 10:13 AM EST TRANSITIONAL CARE MANAGEMENT (TCM) COMMUNITY MONITORING PROGRAM - [facility] Provider Action/FYI: Saeid d/c 12/18 Renal Failure Call placed to patient. No answer. Message left on identified voicemail regarding call to check on patient's health status. Nurse's number left to call with any questions/concerns. Will try again later today and/or 12/22. SUMMARY: Pt discharged from [place] on 12/18/22. Admitted for: Renal Failure Contact made with patient: No - next outreach attempt will be on next business day Outreach ended TCM Home Visit Referral Source of Stratification: [facility] Admission Status: Discharged Readmission Risk Score: 28 OSCAR Score: 19 Patient meets program referral criteria: No Patient does not qualify for High Risk TCM Home Visit program due to: Discharged home, does not meet program criteria Ernesto Dailey RN December 19, 2022 10:14 AM documented in this encounterWadsworth-Rittman Hospital02-22-2023 Miscellaneous Notes* Telephone Encounter - Criss Devi MA - 12/17/2022 3:27 PM EST Patient's left message wanting Dr. Bloom to know that patient has covid and is currently admitted in [place] with kidney issues. Criss Devi MA documented in this encounterWadsworth-Rittman Hospital02-22-2023 Miscellaneous Notes* Telephone Encounter - Kelby Shipman MA - 12/17/2022 10:54 AM EST Pt called asking for an earlier appt than 12/24/22. Stated he did not want to talk to scheduling/Pt wanted message to go to Dr Farah. Kelby Shipman MA documented in this encounterWadsworth-Rittman Hospital02-20-2023 History of Past illness Narrative* Problem Noted Date Diagnosed Date Resolved Date Obesity, Class II, BMI 35-39.9 12/15/2022 05/26/2023 UTI (urinary tract infection) 12/14/2022 12/18/2022 Hypomagnesemia 10/30/2019 11/01/2019 Last Assessment & Plan: Recent Labs 10/30/19 0615 10/29/19 0615 10/28/19 0600 BUN 13 11 9 CREAT 0.85 0.82 0.77 CA 9.4 9.3 8.9 MG 1.6* 1.7 -- Assessment: Continue supplementation PLAN: Adjustments per mag level Hyperglycemia 10/30/2019 11/01/2019 Elevated lactic acid level 10/26/2019 0 10/26/2019 Last Assessment & Plan: Assessment/PLAN: Lactic acid elevated in ED, normalized with IV fluids Hold metformin for now Sepsis due to gram-negative UTI 10/25/2019 10/26/2019 Last Assessment & Plan: Assessment/PLAN: He presented to the ED with an episode of high-grade fever, has completed third cycle of chemotherapy for diffuse large B-cell lymphoma last week on 10/17/2019 Noted to have fever of 101 in ED, tachycardic, blood pressure normal Lactate elevated normalized with IV fluids Urinalysis revealed cloudy urine with elevated WBC, urine culture sent Blood culture sent from ED Nephrostomy tube changed on 09/15/2019 Previous urine culture grew Serratia Started on Zosyn in ED, continue Follow-up cultures Neutropenic sepsis 09/13/2019 9 Last Assessment & Plan: BC negative. Urine culture result noted. Unable to determine if related to nephrostomy tube. Wait for final rec's from ID for discharge. Nephrostomy status 09/13/2019 Last Assessment & Plan: Assessment/PLAN: Last changed on 09/15/2019, he has appointment on nephrostomy tube exchange Exchange vs removal pending CT scans with Dr Waterman Onychomycsera 07/21/2017 05/22/2021 Pain in right foot 12/11/2016 7 documented as of this encounter (statuses as of 05/26/2023) [facility]02-20-2023 History of Past illness Narrative* Problem Noted Date Diagnosed Date Resolved Date Obesity, Class II, BMI 35-39.9 12/15/2022 05/26/2023 UTI (urinary tract infection) 12/14/2022 12/18/2022 Hypomagnesemia 10/30/2019 11/01/2019 Last Assessment & Plan: Recent Labs 10/30/19 0615 10/29/19 0615 10/28/19 0600 BUN 13 11 9 CREAT 0.85 0.82 0.77 CA 9.4 9.3 8.9 MG 1.6* 1.7 -- Assessment: Continue supplementation PLAN: Adjustments per mag level Hyperglycemia 10/30/2019 11/01/2019 Elevated lactic acid level 10/26/2019 0 10/26/2019 Last Assessment & Plan: Assessment/PLAN: Lactic acid elevated in ED, normalized with IV fluids Hold metformin for now Sepsis due to gram-negative UTI 10/25/2019 10/26/2019 Last Assessment & Plan: Assessment/PLAN: He presented to the ED with an episode of high-grade fever, has completed third cycle of chemotherapy for diffuse large B-cell lymphoma last week on 10/17/2019 Noted to have fever of 101 in ED, tachycardic, blood pressure normal Lactate elevated normalized with IV fluids Urinalysis revealed cloudy urine with elevated WBC, urine culture sent Blood culture sent from ED Nephrostomy tube changed on 09/15/2019 Previous urine culture grew Serratia Started on Zosyn in ED, continue Follow-up cultures Neutropenic sepsis 09/13/2019 9 Last Assessment & Plan: BC negative. Urine culture result noted. Unable to determine if related to nephrostomy tube. Wait for final rec's from ID for discharge. Nephrostomy status 09/13/2019 1 Last Assessment & Plan: Assessment/PLAN: Last changed on 09/15/2019, he has appointment on nephrostomy tube exchange Exchange vs removal pending CT scans with Dr Waterman Onychomycsera 07/21/2017 05/22/2021 Pain in right foot 12/11/2016 7 documented as of this encounter (statuses as of 06/01/2023) [facility]02-20-2023 History of Past illness Narrative* Problem Noted Date Diagnosed Date Resolved Date Obesity, Class II, BMI 35-39.9 12/15/2022 05/26/2023 UTI (urinary tract infection) 12/14/2022 12/18/2022 Hypomagnesemia 10/30/2019 11/01/2019 Last Assessment & Plan: Recent Labs 10/30/19 0615 10/29/19 0615 10/28/19 0600 BUN 13 11 9 CREAT 0.85 0.82 0.77 CA 9.4 9.3 8.9 MG 1.6* 1.7 -- Assessment: Continue supplementation PLAN: Adjustments per mag level Hyperglycemia 10/30/2019 11/01/2019 Elevated lactic acid level 10/26/2019 0 10/26/2019 Last Assessment & Plan: Assessment/PLAN: Lactic acid elevated in ED, normalized with IV fluids Hold metformin for now Sepsis due to gram-negative UTI 10/25/2019 10/26/2019 Last Assessment & Plan: Assessment/PLAN: He presented to the ED with an episode of high-grade fever, has completed third cycle of chemotherapy for diffuse large B-cell lymphoma last week on 10/17/2019 Noted to have fever of 101 in ED, tachycardic, blood pressure normal Lactate elevated normalized with IV fluids Urinalysis revealed cloudy urine with elevated WBC, urine culture sent Blood culture sent from ED Nephrostomy tube changed on 09/15/2019 Previous urine culture grew Serratia Started on Zosyn in ED, continue Follow-up cultures Neutropenic sepsis 09/13/2019 9 Last Assessment & Plan: BC negative. Urine culture result noted. Unable to determine if related to nephrostomy tube. Wait for final rec's from ID for discharge. Nephrostomy status 09/13/2019 1 Last Assessment & Plan: Assessment/PLAN: Last changed on 09/15/2019, he has appointment on nephrostomy tube exchange Exchange vs removal pending CT scans with Dr Columba Uriarte 07/21/2017 05/22/2021 Pain in right foot 12/11/2016 7 documented as of this encounter (statuses as of 06/04/2023) [facility]02-20-2023 History of Past illness Narrative* Problem Noted Date Diagnosed Date Resolved Date Obesity, Class II, BMI 35-39.9 12/15/2022 05/26/2023 UTI (urinary tract infection) 12/14/2022 12/18/2022 Hypomagnesemia 10/30/2019 11/01/2019 Last Assessment & Plan: Recent Labs 10/30/19 0615 10/29/19 0615 10/28/19 0600 BUN 13 11 9 CREAT 0.85 0.82 0.77 CA 9.4 9.3 8.9 MG 1.6* 1.7 -- Assessment: Continue supplementation PLAN: Adjustments per mag level Hyperglycemia 10/30/2019 11/01/2019 Elevated lactic acid level 10/26/2019 0 10/26/2019 Last Assessment & Plan: Assessment/PLAN: Lactic acid elevated in ED, normalized with IV fluids Hold metformin for now Sepsis due to gram-negative UTI 10/25/2019 10/26/2019 Last Assessment & Plan: Assessment/PLAN: He presented to the ED with an episode of high-grade fever, has completed third cycle of chemotherapy for diffuse large B-cell lymphoma last week on 10/17/2019 Noted to have fever of 101 in ED, tachycardic, blood pressure normal Lactate elevated normalized with IV fluids Urinalysis revealed cloudy urine with elevated WBC, urine culture sent Blood culture sent from ED Nephrostomy tube changed on 09/15/2019 Previous urine culture grew Serratia Started on Zosyn in ED, continue Follow-up cultures Neutropenic sepsis 09/13/2019 9 Last Assessment & Plan: BC negative. Urine culture result noted. Unable to determine if related to nephrostomy tube. Wait for final rec's from ID for discharge. Nephrostomy status 09/13/2019 1 Last Assessment & Plan: Assessment/PLAN: Last changed on 09/15/2019, he has appointment on nephrostomy tube exchange Exchange vs removal pending CT scans with Dr Waterman Onheroomycsera 07/21/2017 05/22/2021 Pain in right foot 12/11/2016 7 documented as of this encounter (statuses as of 06/09/2023) [facility]02-20-2023 History of Past illness Narrative* Problem Noted Date Diagnosed Date Resolved Date Obesity, Class II, BMI 35-39.9 12/15/2022 05/26/2023 UTI (urinary tract infection) 12/14/2022 12/18/2022 Hypomagnesemia 10/30/2019 11/01/2019 Last Assessment & Plan: Recent Labs 10/30/19 0615 10/29/19 0615 10/28/19 0600 BUN 13 11 9 CREAT 0.85 0.82 0.77 CA 9.4 9.3 8.9 MG 1.6* 1.7 -- Assessment: Continue supplementation PLAN: Adjustments per mag level Hyperglycemia 10/30/2019 11/01/2019 Elevated lactic acid level 10/26/2019 0 10/26/2019 Last Assessment & Plan: Assessment/PLAN: Lactic acid elevated in ED, normalized with IV fluids Hold metformin for now Sepsis due to gram-negative UTI 10/25/2019 10/26/2019 Last Assessment & Plan: Assessment/PLAN: He presented to the ED with an episode of high-grade fever, has completed third cycle of chemotherapy for diffuse large B-cell lymphoma last week on 10/17/2019 Noted to have fever of 101 in ED, tachycardic, blood pressure normal Lactate elevated normalized with IV fluids Urinalysis revealed cloudy urine with elevated WBC, urine culture sent Blood culture sent from ED Nephrostomy tube changed on 09/15/2019 Previous urine culture grew Serratia Started on Zosyn in ED, continue Follow-up cultures Neutropenic sepsis 09/13/2019 9 Last Assessment & Plan: BC negative. Urine culture result noted. Unable to determine if related to nephrostomy tube. Wait for final rec's from ID for discharge. Nephrostomy status 09/13/2019 Last Assessment & Plan: Assessment/PLAN: Last changed on 09/15/2019, he has appointment on nephrostomy tube exchange Exchange vs removal pending CT scans with Dr Columba Uriarte 07/21/2017 05/22/2021 Pain in right foot 12/11/2016 7 documented as of this encounter (statuses as of 06/30/2023) [facility]02-20-2023 History of Past illness Narrative* Problem Noted Date Diagnosed Date Resolved Date Obesity, Class II, BMI 35-39.9 12/15/2022 05/26/2023 UTI (urinary tract infection) 12/14/2022 12/18/2022 Hypomagnesemia 10/30/2019 11/01/2019 Last Assessment & Plan: Recent Labs 10/30/19 0615 10/29/19 0615 10/28/19 0600 BUN 13 11 9 CREAT 0.85 0.82 0.77 CA 9.4 9.3 8.9 MG 1.6* 1.7 -- Assessment: Continue supplementation PLAN: Adjustments per mag level Hyperglycemia 10/30/2019 11/01/2019 Elevated lactic acid level 10/26/2019 0 10/26/2019 Last Assessment & Plan: Assessment/PLAN: Lactic acid elevated in ED, normalized with IV fluids Hold metformin for now Sepsis due to gram-negative UTI 10/25/2019 10/26/2019 Last Assessment & Plan: Assessment/PLAN: He presented to the ED with an episode of high-grade fever, has completed third cycle of chemotherapy for diffuse large B-cell lymphoma last week on 10/17/2019 Noted to have fever of 101 in ED, tachycardic, blood pressure normal Lactate elevated normalized with IV fluids Urinalysis revealed cloudy urine with elevated WBC, urine culture sent Blood culture sent from ED Nephrostomy tube changed on 09/15/2019 Previous urine culture grew Serratia Started on Zosyn in ED, continue Follow-up cultures Neutropenic sepsis 09/13/2019 9 Last Assessment & Plan: BC negative. Urine culture result noted. Unable to determine if related to nephrostomy tube. Wait for final rec's from ID for discharge. Nephrostomy status 09/13/2019 1 Last Assessment & Plan: Assessment/PLAN: Last changed on 09/15/2019, he has appointment on nephrostomy tube exchange Exchange vs removal pending CT scans with Dr Columba Uriarte 07/21/2017 05/22/2021 Pain in right foot 12/11/2016 7 documented as of this encounter (statuses as of 07/08/2023) [facility]02-20-2023 History of Past illness Narrative* Problem Noted Date Diagnosed Date Resolved Date Obesity, Class II, BMI 35-39.9 12/15/2022 05/26/2023 UTI (urinary tract infection) 12/14/2022 12/18/2022 Hypomagnesemia 10/30/2019 11/01/2019 Last Assessment & Plan: Recent Labs 10/30/19 0615 10/29/19 0615 10/28/19 0600 BUN 13 11 9 CREAT 0.85 0.82 0.77 CA 9.4 9.3 8.9 MG 1.6* 1.7 -- Assessment: Continue supplementation PLAN: Adjustments per mag level Hyperglycemia 10/30/2019 11/01/2019 Elevated lactic acid level 10/26/2019 0 10/26/2019 Last Assessment & Plan: Assessment/PLAN: Lactic acid elevated in ED, normalized with IV fluids Hold metformin for now Sepsis due to gram-negative UTI 10/25/2019 10/26/2019 Last Assessment & Plan: Assessment/PLAN: He presented to the ED with an episode of high-grade fever, has completed third cycle of chemotherapy for diffuse large B-cell lymphoma last week on 10/17/2019 Noted to have fever of 101 in ED, tachycardic, blood pressure normal Lactate elevated normalized with IV fluids Urinalysis revealed cloudy urine with elevated WBC, urine culture sent Blood culture sent from ED Nephrostomy tube changed on 09/15/2019 Previous urine culture grew Serratia Started on Zosyn in ED, continue Follow-up cultures Neutropenic sepsis 09/13/2019 9 Last Assessment & Plan: BC negative. Urine culture result noted. Unable to determine if related to nephrostomy tube. Wait for final rec's from ID for discharge. Nephrostomy status 09/13/2019 1 Last Assessment & Plan: Assessment/PLAN: Last changed on 09/15/2019, he has appointment on nephrostomy tube exchange Exchange vs removal pending CT scans with Dr Waterman Onychomycosis 07/21/2017 05/22/2021 Pain in right foot 12/11/2016 7 documented as of this encounter (statuses as of 07/09/2023) [facility]02-20-2023 History of Past illness Narrative* Problem Noted Date Diagnosed Date Resolved Date Obesity, Class II, BMI 35-39.9 12/15/2022 05/26/2023 UTI (urinary tract infection) 12/14/2022 12/18/2022 Hypomagnesemia 10/30/2019 11/01/2019 Last Assessment & Plan: Recent Labs 10/30/19 0615 10/29/19 0615 10/28/19 0600 BUN 13 11 9 CREAT 0.85 0.82 0.77 CA 9.4 9.3 8.9 MG 1.6* 1.7 -- Assessment: Continue supplementation PLAN: Adjustments per mag level Hyperglycemia 10/30/2019 11/01/2019 Elevated lactic acid level 10/26/2019 0 10/26/2019 Last Assessment & Plan: Assessment/PLAN: Lactic acid elevated in ED, normalized with IV fluids Hold metformin for now Sepsis due to gram-negative UTI 10/25/2019 10/26/2019 Last Assessment & Plan: Assessment/PLAN: He presented to the ED with an episode of high-grade fever, has completed third cycle of chemotherapy for diffuse large B-cell lymphoma last week on 10/17/2019 Noted to have fever of 101 in ED, tachycardic, blood pressure normal Lactate elevated normalized with IV fluids Urinalysis revealed cloudy urine with elevated WBC, urine culture sent Blood culture sent from ED Nephrostomy tube changed on 09/15/2019 Previous urine culture grew Serratia Started on Zosyn in ED, continue Follow-up cultures Neutropenic sepsis 09/13/2019 9 Last Assessment & Plan: BC negative. Urine culture result noted. Unable to determine if related to nephrostomy tube. Wait for final rec's from ID for discharge. Nephrostomy status 09/13/2019 1 Last Assessment & Plan: Assessment/PLAN: Last changed on 09/15/2019, he has appointment on nephrostomy tube exchange Exchange vs removal pending CT scans with Dr Waterman Onychomycosis 07/21/2017 05/22/2021 Pain in right foot 12/11/2016 7 documented as of this encounter (statuses as of 07/10/2023) [facility]02-20-2023 History of Past illness Narrative* Problem Noted Date Diagnosed Date Resolved Date Obesity, Class II, BMI 35-39.9 12/15/2022 05/26/2023 UTI (urinary tract infection) 12/14/2022 12/18/2022 Hypomagnesemia 10/30/2019 11/01/2019 Last Assessment & Plan: Recent Labs 10/30/19 0615 10/29/19 0615 10/28/19 0600 BUN 13 11 9 CREAT 0.85 0.82 0.77 CA 9.4 9.3 8.9 MG 1.6* 1.7 -- Assessment: Continue supplementation PLAN: Adjustments per mag level Hyperglycemia 10/30/2019 11/01/2019 Elevated lactic acid level 10/26/2019 0 10/26/2019 Last Assessment & Plan: Assessment/PLAN: Lactic acid elevated in ED, normalized with IV fluids Hold metformin for now Sepsis due to gram-negative UTI 10/25/2019 10/26/2019 Last Assessment & Plan: Assessment/PLAN: He presented to the ED with an episode of high-grade fever, has completed third cycle of chemotherapy for diffuse large B-cell lymphoma last week on 10/17/2019 Noted to have fever of 101 in ED, tachycardic, blood pressure normal Lactate elevated normalized with IV fluids Urinalysis revealed cloudy urine with elevated WBC, urine culture sent Blood culture sent from ED Nephrostomy tube changed on 09/15/2019 Previous urine culture grew Serratia Started on Zosyn in ED, continue Follow-up cultures Neutropenic sepsis 09/13/2019 9 Last Assessment & Plan: BC negative. Urine culture result noted. Unable to determine if related to nephrostomy tube. Wait for final rec's from ID for discharge. Nephrostomy status 09/13/2019 1 Last Assessment & Plan: Assessment/PLAN: Last changed on 09/15/2019, he has appointment on nephrostomy tube exchange Exchange vs removal pending CT scans with Dr Columba Rosaomycsera 07/21/2017 05/22/2021 Pain in right foot 12/11/2016 7 documented as of this encounter (statuses as of 07/14/2023) [facility]02-20-2023 History of Past illness Narrative* Problem Noted Date Diagnosed Date Resolved Date Obesity, Class II, BMI 35-39.9 12/15/2022 05/26/2023 UTI (urinary tract infection) 12/14/2022 12/18/2022 Hypomagnesemia 10/30/2019 11/01/2019 Last Assessment & Plan: Recent Labs 10/30/19 0615 10/29/19 0615 10/28/19 0600 BUN 13 11 9 CREAT 0.85 0.82 0.77 CA 9.4 9.3 8.9 MG 1.6* 1.7 -- Assessment: Continue supplementation PLAN: Adjustments per mag level Hyperglycemia 10/30/2019 11/01/2019 Elevated lactic acid level 10/26/2019 0 10/26/2019 Last Assessment & Plan: Assessment/PLAN: Lactic acid elevated in ED, normalized with IV fluids Hold metformin for now Sepsis due to gram-negative UTI 10/25/2019 10/26/2019 Last Assessment & Plan: Assessment/PLAN: He presented to the ED with an episode of high-grade fever, has completed third cycle of chemotherapy for diffuse large B-cell lymphoma last week on 10/17/2019 Noted to have fever of 101 in ED, tachycardic, blood pressure normal Lactate elevated normalized with IV fluids Urinalysis revealed cloudy urine with elevated WBC, urine culture sent Blood culture sent from ED Nephrostomy tube changed on 09/15/2019 Previous urine culture grew Serratia Started on Zosyn in ED, continue Follow-up cultures Neutropenic sepsis 09/13/2019 9 Last Assessment & Plan: BC negative. Urine culture result noted. Unable to determine if related to nephrostomy tube. Wait for final rec's from ID for discharge. Nephrostomy status 09/13/2019 Last Assessment & Plan: Assessment/PLAN: Last changed on 09/15/2019, he has appointment on nephrostomy tube exchange Exchange vs removal pending CT scans with Dr Columba Uriarte 07/21/2017 05/22/2021 Pain in right foot 12/11/2016 7 documented as of this encounter (statuses as of 07/15/2023) [facility]02-20-2023 History of Past illness Narrative* Problem Noted Date Diagnosed Date Resolved Date Obesity, Class II, BMI 35-39.9 12/15/2022 05/26/2023 UTI (urinary tract infection) 12/14/2022 12/18/2022 Hypomagnesemia 10/30/2019 11/01/2019 Last Assessment & Plan: Recent Labs 10/30/19 0615 10/29/19 0615 10/28/19 0600 BUN 13 11 9 CREAT 0.85 0.82 0.77 CA 9.4 9.3 8.9 MG 1.6* 1.7 -- Assessment: Continue supplementation PLAN: Adjustments per mag level Hyperglycemia 10/30/2019 11/01/2019 Elevated lactic acid level 10/26/2019 0 10/26/2019 Last Assessment & Plan: Assessment/PLAN: Lactic acid elevated in ED, normalized with IV fluids Hold metformin for now Sepsis due to gram-negative UTI (HCC) 10/25/2019 10/26/2019 Last Assessment & Plan: Assessment/PLAN: He presented to the ED with an episode of high-grade fever, has completed third cycle of chemotherapy for diffuse large B-cell lymphoma last week on 10/17/2019 Noted to have fever of 101 in ED, tachycardic, blood pressure normal Lactate elevated normalized with IV fluids Urinalysis revealed cloudy urine with elevated WBC, urine culture sent Blood culture sent from ED Nephrostomy tube changed on 09/15/2019 Previous urine culture grew Serratia Started on Zosyn in ED, continue Follow-up cultures Neutropenic sepsis 09/13/2019 9 Last Assessment & Plan: BC negative. Urine culture result noted. Unable to determine if related to nephrostomy tube. Wait for final rec's from ID for discharge. Nephrostomy status 09/13/2019 Last Assessment & Plan: Assessment/PLAN: Last changed on 09/15/2019, he has appointment on nephrostomy tube exchange Exchange vs removal pending CT scans with Dr Waterman Onychomycsera 07/21/2017 05/22/2021 Pain in right foot 12/11/2016 7 documented as of this encounter (statuses as of 08/11/2023) [facility]02-20-2023 History of Past illness Narrative* Problem Noted Date Diagnosed Date Resolved Date Obesity, Class II, BMI 35-39.9 12/15/2022 05/26/2023 UTI (urinary tract infection) 12/14/2022 12/18/2022 Hypomagnesemia 10/30/2019 11/01/2019 Last Assessment & Plan: Recent Labs 10/30/19 0615 10/29/19 0615 10/28/19 0600 BUN 13 11 9 CREAT 0.85 0.82 0.77 CA 9.4 9.3 8.9 MG 1.6* 1.7 -- Assessment: Continue supplementation PLAN: Adjustments per mag level Hyperglycemia 10/30/2019 11/01/2019 Elevated lactic acid level 10/26/2019 0 10/26/2019 Last Assessment & Plan: Assessment/PLAN: Lactic acid elevated in ED, normalized with IV fluids Hold metformin for now Sepsis due to gram-negative UTI (HCC) 10/25/2019 10/26/2019 Last Assessment & Plan: Assessment/PLAN: He presented to the ED with an episode of high-grade fever, has completed third cycle of chemotherapy for diffuse large B-cell lymphoma last week on 10/17/2019 Noted to have fever of 101 in ED, tachycardic, blood pressure normal Lactate elevated normalized with IV fluids Urinalysis revealed cloudy urine with elevated WBC, urine culture sent Blood culture sent from ED Nephrostomy tube changed on 09/15/2019 Previous urine culture grew Serratia Started on Zosyn in ED, continue Follow-up cultures Neutropenic sepsis 09/13/2019 9 Last Assessment & Plan: BC negative. Urine culture result noted. Unable to determine if related to nephrostomy tube. Wait for final rec's from ID for discharge. Nephrostomy status 09/13/2019 Last Assessment & Plan: Assessment/PLAN: Last changed on 09/15/2019, he has appointment on nephrostomy tube exchange Exchange vs removal pending CT scans with Dr Waterman Onychomycosis 07/21/2017 05/22/2021 Pain in right foot 12/11/2016 7 documented as of this encounter (statuses as of 08/17/2023) [facility]2023 History of Past illness Narrative* Problem Noted Date Diagnosed Date Resolved Date Obesity, Class II, BMI 35-39.9 12/15/2022 05/26/2023 UTI (urinary tract infection) 12/14/2022 12/18/2022 Hypomagnesemia 10/30/2019 11/01/2019 Last Assessment & Plan: Recent Labs 10/30/19 0615 10/29/19 0615 10/28/19 0600 BUN 13 11 9 CREAT 0.85 0.82 0.77 CA 9.4 9.3 8.9 MG 1.6* 1.7 -- Assessment: Continue supplementation PLAN: Adjustments per mag level Hyperglycemia 10/30/2019 11/01/2019 Elevated lactic acid level 10/26/2019 0 10/26/2019 Last Assessment & Plan: Assessment/PLAN: Lactic acid elevated in ED, normalized with IV fluids Hold metformin for now Sepsis due to gram-negative UTI (HCC) 10/25/2019 10/26/2019 Last Assessment & Plan: Assessment/PLAN: He presented to the ED with an episode of high-grade fever, has completed third cycle of chemotherapy for diffuse large B-cell lymphoma last week on 10/17/2019 Noted to have fever of 101 in ED, tachycardic, blood pressure normal Lactate elevated normalized with IV fluids Urinalysis revealed cloudy urine with elevated WBC, urine culture sent Blood culture sent from ED Nephrostomy tube changed on 09/15/2019 Previous urine culture grew Serratia Started on Zosyn in ED, continue Follow-up cultures Neutropenic sepsis 09/13/2019 9 Last Assessment & Plan: BC negative. Urine culture result noted. Unable to determine if related to nephrostomy tube. Wait for final rec's from ID for discharge. Nephrostomy status 09/13/2019 Last Assessment & Plan: Assessment/PLAN: Last changed on 09/15/2019, he has appointment on nephrostomy tube exchange Exchange vs removal pending CT scans with Dr Waterman Onheroomycsera 07/21/2017 05/22/2021 Pain in right foot 12/11/2016 7 documented as of this encounter (statuses as of 08/26/2023) [facility] History of Past illness Narrative* Problem Noted Date Diagnosed Date Resolved Date Obesity, Class II, BMI 35-39.9 12/15/2022 05/26/2023 UTI (urinary tract infection) 12/14/2022 12/18/2022 Hypomagnesemia 10/30/2019 11/01/2019 Last Assessment & Plan: Recent Labs 10/30/19 0615 10/29/19 0615 10/28/19 0600 BUN 13 11 9 CREAT 0.85 0.82 0.77 CA 9.4 9.3 8.9 MG 1.6* 1.7 -- Assessment: Continue supplementation PLAN: Adjustments per mag level Hyperglycemia 10/30/2019 11/01/2019 Elevated lactic acid level 10/26/2019 0 10/26/2019 Last Assessment & Plan: Assessment/PLAN: Lactic acid elevated in ED, normalized with IV fluids Hold metformin for now Sepsis due to gram-negative UTI (HCC) 10/25/2019 10/26/2019 Last Assessment & Plan: Assessment/PLAN: He presented to the ED with an episode of high-grade fever, has completed third cycle of chemotherapy for diffuse large B-cell lymphoma last week on 10/17/2019 Noted to have fever of 101 in ED, tachycardic, blood pressure normal Lactate elevated normalized with IV fluids Urinalysis revealed cloudy urine with elevated WBC, urine culture sent Blood culture sent from ED Nephrostomy tube changed on 09/15/2019 Previous urine culture grew Serratia Started on Zosyn in ED, continue Follow-up cultures Neutropenic sepsis 09/13/2019 9 Last Assessment & Plan: BC negative. Urine culture result noted. Unable to determine if related to nephrostomy tube. Wait for final rec's from ID for discharge. Nephrostomy status 09/13/2019 Last Assessment & Plan: Assessment/PLAN: Last changed on 09/15/2019, he has appointment on nephrostomy tube exchange Exchange vs removal pending CT scans with Dr Columba Uriarte 07/21/2017 05/22/2021 Pain in right foot 12/11/2016 7 documented as of this encounter (statuses as of 09/08/2023) [facility]23 History of Past illness Narrative* Problem Noted Date Diagnosed Date Resolved Date Obesity, Class II, BMI 35-39.9 12/15/2022 05/26/2023 UTI (urinary tract infection) 12/14/2022 12/18/2022 Hypomagnesemia 10/30/2019 11/01/2019 Last Assessment & Plan: Recent Labs 10/30/19 0615 10/29/19 0615 10/28/19 0600 BUN 13 11 9 CREAT 0.85 0.82 0.77 CA 9.4 9.3 8.9 MG 1.6* 1.7 -- Assessment: Continue supplementation PLAN: Adjustments per mag level Hyperglycemia 10/30/2019 11/01/2019 Elevated lactic acid level 10/26/2019 0 10/26/2019 Last Assessment & Plan: Assessment/PLAN: Lactic acid elevated in ED, normalized with IV fluids Hold metformin for now Sepsis due to gram-negative UTI (HCC) 10/25/2019 10/26/2019 Last Assessment & Plan: Assessment/PLAN: He presented to the ED with an episode of high-grade fever, has completed third cycle of chemotherapy for diffuse large B-cell lymphoma last week on 10/17/2019 Noted to have fever of 101 in ED, tachycardic, blood pressure normal Lactate elevated normalized with IV fluids Urinalysis revealed cloudy urine with elevated WBC, urine culture sent Blood culture sent from ED Nephrostomy tube changed on 09/15/2019 Previous urine culture grew Serratia Started on Zosyn in ED, continue Follow-up cultures Neutropenic sepsis 09/13/2019 9 Last Assessment & Plan: BC negative. Urine culture result noted. Unable to determine if related to nephrostomy tube. Wait for final rec's from ID for discharge. Nephrostomy status 09/13/2019 1 Last Assessment & Plan: Assessment/PLAN: Last changed on 09/15/2019, he has appointment on nephrostomy tube exchange Exchange vs removal pending CT scans with Dr Waterman Onychomycsera 07/21/2017 05/22/2021 Pain in right foot 12/11/2016 7 documented as of this encounter (statuses as of 10/10/2023) [facility]02-20-2023 History of Past illness Narrative* Problem Noted Date Diagnosed Date Resolved Date Obesity, Class II, BMI 35-39.9 12/15/2022 05/26/2023 UTI (urinary tract infection) 12/14/2022 12/18/2022 Hypomagnesemia 10/30/2019 11/01/2019 Last Assessment & Plan: Recent Labs 10/30/19 0615 10/29/19 0615 10/28/19 0600 BUN 13 11 9 CREAT 0.85 0.82 0.77 CA 9.4 9.3 8.9 MG 1.6* 1.7 -- Assessment: Continue supplementation PLAN: Adjustments per mag level Hyperglycemia 10/30/2019 11/01/2019 Elevated lactic acid level 10/26/2019 0 10/26/2019 Last Assessment & Plan: Assessment/PLAN: Lactic acid elevated in ED, normalized with IV fluids Hold metformin for now Sepsis due to gram-negative UTI (HCC) 10/25/2019 10/26/2019 Last Assessment & Plan: Assessment/PLAN: He presented to the ED with an episode of high-grade fever, has completed third cycle of chemotherapy for diffuse large B-cell lymphoma last week on 10/17/2019 Noted to have fever of 101 in ED, tachycardic, blood pressure normal Lactate elevated normalized with IV fluids Urinalysis revealed cloudy urine with elevated WBC, urine culture sent Blood culture sent from ED Nephrostomy tube changed on 09/15/2019 Previous urine culture grew Serratia Started on Zosyn in ED, continue Follow-up cultures Neutropenic sepsis 09/13/2019 9 Last Assessment & Plan: BC negative. Urine culture result noted. Unable to determine if related to nephrostomy tube. Wait for final rec's from ID for discharge. Nephrostomy status 09/13/2019 1 Last Assessment & Plan: Assessment/PLAN: Last changed on 09/15/2019, he has appointment on nephrostomy tube exchange Exchange vs removal pending CT scans with Dr Waterman Onychomycsera 07/21/2017 05/22/2021 Pain in right foot 12/11/2016 7 documented as of this encounter (statuses as of 10/26/2023) [facility]02-20-2023 History of Past illness Narrative* Problem Noted Date Diagnosed Date Resolved Date Obesity, Class II, BMI 35-39.9 12/15/2022 05/26/2023 UTI (urinary tract infection) 12/14/2022 12/18/2022 Hypomagnesemia 10/30/2019 11/01/2019 Last Assessment & Plan: Recent Labs 10/30/19 0615 10/29/19 0615 10/28/19 0600 BUN 13 11 9 CREAT 0.85 0.82 0.77 CA 9.4 9.3 8.9 MG 1.6* 1.7 -- Assessment: Continue supplementation PLAN: Adjustments per mag level Hyperglycemia 10/30/2019 11/01/2019 Elevated lactic acid level 10/26/2019 0 10/26/2019 Last Assessment & Plan: Assessment/PLAN: Lactic acid elevated in ED, normalized with IV fluids Hold metformin for now Sepsis due to gram-negative UTI (HCC) 10/25/2019 10/26/2019 Last Assessment & Plan: Assessment/PLAN: He presented to the ED with an episode of high-grade fever, has completed third cycle of chemotherapy for diffuse large B-cell lymphoma last week on 10/17/2019 Noted to have fever of 101 in ED, tachycardic, blood pressure normal Lactate elevated normalized with IV fluids Urinalysis revealed cloudy urine with elevated WBC, urine culture sent Blood culture sent from ED Nephrostomy tube changed on 09/15/2019 Previous urine culture grew Serratia Started on Zosyn in ED, continue Follow-up cultures Neutropenic sepsis 09/13/2019 9 Last Assessment & Plan: BC negative. Urine culture result noted. Unable to determine if related to nephrostomy tube. Wait for final rec's from ID for discharge. Nephrostomy status 09/13/2019 1 Last Assessment & Plan: Assessment/PLAN: Last changed on 09/15/2019, he has appointment on nephrostomy tube exchange Exchange vs removal pending CT scans with Dr Columba Uriarte 07/21/2017 05/22/2021 Pain in right foot 12/11/2016 7 documented as of this encounter (statuses as of 11/30/2023) [facility]02-20-2023 History of Past illness Narrative* Problem Noted Date Diagnosed Date Resolved Date Obesity, Class II, BMI 35-39.9 12/15/2022 05/26/2023 UTI (urinary tract infection) 12/14/2022 12/18/2022 Hypomagnesemia 10/30/2019 11/01/2019 Last Assessment & Plan: Recent Labs 10/30/19 0615 10/29/19 0615 10/28/19 0600 BUN 13 11 9 CREAT 0.85 0.82 0.77 CA 9.4 9.3 8.9 MG 1.6* 1.7 -- Assessment: Continue supplementation PLAN: Adjustments per mag level Hyperglycemia 10/30/2019 11/01/2019 Elevated lactic acid level 10/26/2019 0 10/26/2019 Last Assessment & Plan: Assessment/PLAN: Lactic acid elevated in ED, normalized with IV fluids Hold metformin for now Sepsis due to gram-negative UTI (HCC) 10/25/2019 10/26/2019 Last Assessment & Plan: Assessment/PLAN: He presented to the ED with an episode of high-grade fever, has completed third cycle of chemotherapy for diffuse large B-cell lymphoma last week on 10/17/2019 Noted to have fever of 101 in ED, tachycardic, blood pressure normal Lactate elevated normalized with IV fluids Urinalysis revealed cloudy urine with elevated WBC, urine culture sent Blood culture sent from ED Nephrostomy tube changed on 09/15/2019 Previous urine culture grew Serratia Started on Zosyn in ED, continue Follow-up cultures Neutropenic sepsis 09/13/2019 9 Last Assessment & Plan: BC negative. Urine culture result noted. Unable to determine if related to nephrostomy tube. Wait for final rec's from ID for discharge. Nephrostomy status 09/13/2019 Last Assessment & Plan: Assessment/PLAN: Last changed on 09/15/2019, he has appointment on nephrostomy tube exchange Exchange vs removal pending CT scans with Dr Columba Rosaomycsera 07/21/2017 05/22/2021 Pain in right foot 12/11/2016 7 documented as of this encounter (statuses as of 12/07/2023) [facility]02-20-2023 History of Past illness Narrative* Problem Noted Date Diagnosed Date Resolved Date Obesity, Class II, BMI 35-39.9 12/15/2022 05/26/2023 UTI (urinary tract infection) 12/14/2022 12/18/2022 Hypomagnesemia 10/30/2019 11/01/2019 Last Assessment & Plan: Recent Labs 10/30/19 0615 10/29/19 0615 10/28/19 0600 BUN 13 11 9 CREAT 0.85 0.82 0.77 CA 9.4 9.3 8.9 MG 1.6* 1.7 -- Assessment: Continue supplementation PLAN: Adjustments per mag level Hyperglycemia 10/30/2019 11/01/2019 Elevated lactic acid level 10/26/2019 0 10/26/2019 Last Assessment & Plan: Assessment/PLAN: Lactic acid elevated in ED, normalized with IV fluids Hold metformin for now Sepsis due to gram-negative UTI (HCC) 10/25/2019 10/26/2019 Last Assessment & Plan: Assessment/PLAN: He presented to the ED with an episode of high-grade fever, has completed third cycle of chemotherapy for diffuse large B-cell lymphoma last week on 10/17/2019 Noted to have fever of 101 in ED, tachycardic, blood pressure normal Lactate elevated normalized with IV fluids Urinalysis revealed cloudy urine with elevated WBC, urine culture sent Blood culture sent from ED Nephrostomy tube changed on 09/15/2019 Previous urine culture grew Serratia Started on Zosyn in ED, continue Follow-up cultures Neutropenic sepsis 09/13/2019 9 Last Assessment & Plan: BC negative. Urine culture result noted. Unable to determine if related to nephrostomy tube. Wait for final rec's from ID for discharge. Nephrostomy status 09/13/2019 Last Assessment & Plan: Assessment/PLAN: Last changed on 09/15/2019, he has appointment on nephrostomy tube exchange Exchange vs removal pending CT scans with Dr Waterman Onychomycosis 07/21/2017 05/22/2021 Pain in right foot 12/11/2016 7 documented as of this encounter (statuses as of 12/16/2023) [facility]02-20-2023 History of Past illness Narrative* Problem Noted Date Diagnosed Date Resolved Date Obesity, Class II, BMI 35-39.9 12/15/2022 05/26/2023 UTI (urinary tract infection) 12/14/2022 12/18/2022 Hypomagnesemia 10/30/2019 11/01/2019 Last Assessment & Plan: Recent Labs 10/30/19 0615 10/29/19 0615 10/28/19 0600 BUN 13 11 9 CREAT 0.85 0.82 0.77 CA 9.4 9.3 8.9 MG 1.6* 1.7 -- Assessment: Continue supplementation PLAN: Adjustments per mag level Hyperglycemia 10/30/2019 11/01/2019 Elevated lactic acid level 10/26/2019 0 10/26/2019 Last Assessment & Plan: Assessment/PLAN: Lactic acid elevated in ED, normalized with IV fluids Hold metformin for now Sepsis due to gram-negative UTI (HCC) 10/25/2019 10/26/2019 Last Assessment & Plan: Assessment/PLAN: He presented to the ED with an episode of high-grade fever, has completed third cycle of chemotherapy for diffuse large B-cell lymphoma last week on 10/17/2019 Noted to have fever of 101 in ED, tachycardic, blood pressure normal Lactate elevated normalized with IV fluids Urinalysis revealed cloudy urine with elevated WBC, urine culture sent Blood culture sent from ED Nephrostomy tube changed on 09/15/2019 Previous urine culture grew Serratia Started on Zosyn in ED, continue Follow-up cultures Neutropenic sepsis 09/13/2019 9 Last Assessment & Plan: BC negative. Urine culture result noted. Unable to determine if related to nephrostomy tube. Wait for final rec's from ID for discharge. Nephrostomy status 09/13/2019 Last Assessment & Plan: Assessment/PLAN: Last changed on 09/15/2019, he has appointment on nephrostomy tube exchange Exchange vs removal pending CT scans with Dr Waterman Onychomycosis 07/21/2017 05/22/2021 Pain in right foot 12/11/2016 7 documented as of this encounter (statuses as of 12/16/2023) [facility]02-20-2023 History of Past illness Narrative* Problem Noted Date Diagnosed Date Resolved Date Obesity, Class II, BMI 35-39.9 12/15/2022 05/26/2023 UTI (urinary tract infection) 12/14/2022 12/18/2022 Hypomagnesemia 10/30/2019 11/01/2019 Last Assessment & Plan: Recent Labs 10/30/19 0615 10/29/19 0615 10/28/19 0600 BUN 13 11 9 CREAT 0.85 0.82 0.77 CA 9.4 9.3 8.9 MG 1.6* 1.7 -- Assessment: Continue supplementation PLAN: Adjustments per mag level Hyperglycemia 10/30/2019 11/01/2019 Elevated lactic acid level 10/26/2019 0 10/26/2019 Last Assessment & Plan: Assessment/PLAN: Lactic acid elevated in ED, normalized with IV fluids Hold metformin for now Sepsis due to gram-negative UTI (HCC) 10/25/2019 10/26/2019 Last Assessment & Plan: Assessment/PLAN: He presented to the ED with an episode of high-grade fever, has completed third cycle of chemotherapy for diffuse large B-cell lymphoma last week on 10/17/2019 Noted to have fever of 101 in ED, tachycardic, blood pressure normal Lactate elevated normalized with IV fluids Urinalysis revealed cloudy urine with elevated WBC, urine culture sent Blood culture sent from ED Nephrostomy tube changed on 09/15/2019 Previous urine culture grew Serratia Started on Zosyn in ED, continue Follow-up cultures Neutropenic sepsis 09/13/2019 9 Last Assessment & Plan: BC negative. Urine culture result noted. Unable to determine if related to nephrostomy tube. Wait for final rec's from ID for discharge. Nephrostomy status 09/13/2019 Last Assessment & Plan: Assessment/PLAN: Last changed on 09/15/2019, he has appointment on nephrostomy tube exchange Exchange vs removal pending CT scans with Dr Columba Rosaomycsera 07/21/2017 05/22/2021 Pain in right foot 12/11/2016 7 documented as of this encounter (statuses as of 12/17/2023) [facility]02-20-2023 History of Past illness Narrative* Problem Noted Date Diagnosed Date Resolved Date Obesity, Class II, BMI 35-39.9 12/15/2022 05/26/2023 UTI (urinary tract infection) 12/14/2022 12/18/2022 Hypomagnesemia 10/30/2019 11/01/2019 Last Assessment & Plan: Recent Labs 10/30/19 0615 10/29/19 0615 10/28/19 0600 BUN 13 11 9 CREAT 0.85 0.82 0.77 CA 9.4 9.3 8.9 MG 1.6* 1.7 -- Assessment: Continue supplementation PLAN: Adjustments per mag level Hyperglycemia 10/30/2019 11/01/2019 Elevated lactic acid level 10/26/2019 0 10/26/2019 Last Assessment & Plan: Assessment/PLAN: Lactic acid elevated in ED, normalized with IV fluids Hold metformin for now Sepsis due to gram-negative UTI (HCC) 10/25/2019 10/26/2019 Last Assessment & Plan: Assessment/PLAN: He presented to the ED with an episode of high-grade fever, has completed third cycle of chemotherapy for diffuse large B-cell lymphoma last week on 10/17/2019 Noted to have fever of 101 in ED, tachycardic, blood pressure normal Lactate elevated normalized with IV fluids Urinalysis revealed cloudy urine with elevated WBC, urine culture sent Blood culture sent from ED Nephrostomy tube changed on 09/15/2019 Previous urine culture grew Serratia Started on Zosyn in ED, continue Follow-up cultures Neutropenic sepsis 09/13/2019 9 Last Assessment & Plan: BC negative. Urine culture result noted. Unable to determine if related to nephrostomy tube. Wait for final rec's from ID for discharge. Nephrostomy status 09/13/2019 Last Assessment & Plan: Assessment/PLAN: Last changed on 09/15/2019, he has appointment on nephrostomy tube exchange Exchange vs removal pending CT scans with Dr Columba Uriarte 07/21/2017 05/22/2021 Pain in right foot 12/11/2016 7 documented as of this encounter (statuses as of 12/24/2023) [facility]02-20-2023 History of Past illness Narrative* Problem Noted Date Diagnosed Date Resolved Date Obesity, Class II, BMI 35-39.9 12/15/2022 05/26/2023 UTI (urinary tract infection) 12/14/2022 12/18/2022 Hypomagnesemia 10/30/2019 11/01/2019 Last Assessment & Plan: Recent Labs 10/30/19 0615 10/29/19 0615 10/28/19 0600 BUN 13 11 9 CREAT 0.85 0.82 0.77 CA 9.4 9.3 8.9 MG 1.6* 1.7 -- Assessment: Continue supplementation PLAN: Adjustments per mag level Hyperglycemia 10/30/2019 11/01/2019 Elevated lactic acid level 10/26/2019 0 10/26/2019 Last Assessment & Plan: Assessment/PLAN: Lactic acid elevated in ED, normalized with IV fluids Hold metformin for now Sepsis due to gram-negative UTI (HCC) 10/25/2019 10/26/2019 Last Assessment & Plan: Assessment/PLAN: He presented to the ED with an episode of high-grade fever, has completed third cycle of chemotherapy for diffuse large B-cell lymphoma last week on 10/17/2019 Noted to have fever of 101 in ED, tachycardic, blood pressure normal Lactate elevated normalized with IV fluids Urinalysis revealed cloudy urine with elevated WBC, urine culture sent Blood culture sent from ED Nephrostomy tube changed on 09/15/2019 Previous urine culture grew Serratia Started on Zosyn in ED, continue Follow-up cultures Neutropenic sepsis 09/13/2019 9 Last Assessment & Plan: BC negative. Urine culture result noted. Unable to determine if related to nephrostomy tube. Wait for final rec's from ID for discharge. Nephrostomy status 09/13/2019 Last Assessment & Plan: Assessment/PLAN: Last changed on 09/15/2019, he has appointment on nephrostomy tube exchange Exchange vs removal pending CT scans with Dr Waterman Onychomycosis 07/21/2017 05/22/2021 Pain in right foot 12/11/2016 7 documented as of this encounter (statuses as of 12/25/2023) [facility]02-20-2023 History of Past illness Narrative* Problem Noted Date Diagnosed Date Resolved Date Obesity, Class II, BMI 35-39.9 12/15/2022 05/26/2023 UTI (urinary tract infection) 12/14/2022 12/18/2022 Hypomagnesemia 10/30/2019 11/01/2019 Last Assessment & Plan: Recent Labs 10/30/19 0615 10/29/19 0615 10/28/19 0600 BUN 13 11 9 CREAT 0.85 0.82 0.77 CA 9.4 9.3 8.9 MG 1.6* 1.7 -- Assessment: Continue supplementation PLAN: Adjustments per mag level Hyperglycemia 10/30/2019 11/01/2019 Elevated lactic acid level 10/26/2019 0 10/26/2019 Last Assessment & Plan: Assessment/PLAN: Lactic acid elevated in ED, normalized with IV fluids Hold metformin for now Sepsis due to gram-negative UTI (HCC) 10/25/2019 10/26/2019 Last Assessment & Plan: Assessment/PLAN: He presented to the ED with an episode of high-grade fever, has completed third cycle of chemotherapy for diffuse large B-cell lymphoma last week on 10/17/2019 Noted to have fever of 101 in ED, tachycardic, blood pressure normal Lactate elevated normalized with IV fluids Urinalysis revealed cloudy urine with elevated WBC, urine culture sent Blood culture sent from ED Nephrostomy tube changed on 09/15/2019 Previous urine culture grew Serratia Started on Zosyn in ED, continue Follow-up cultures Neutropenic sepsis 09/13/2019 9 Last Assessment & Plan: BC negative. Urine culture result noted. Unable to determine if related to nephrostomy tube. Wait for final rec's from ID for discharge. Nephrostomy status 09/13/2019 Last Assessment & Plan: Assessment/PLAN: Last changed on 09/15/2019, he has appointment on nephrostomy tube exchange Exchange vs removal pending CT scans with Dr Waterman Onheroomycsera 07/21/2017 05/22/2021 Pain in right foot 12/11/2016 7 documented as of this encounter (statuses as of 01/11/2024) [facility]02-20-2023 History of Past illness Narrative* Problem Noted Date Diagnosed Date Resolved Date Obesity, Class II, BMI 35-39.9 12/15/2022 05/26/2023 UTI (urinary tract infection) 12/14/2022 12/18/2022 Hypomagnesemia 10/30/2019 11/01/2019 Last Assessment & Plan: Recent Labs 10/30/19 0615 10/29/19 0615 10/28/19 0600 BUN 13 11 9 CREAT 0.85 0.82 0.77 CA 9.4 9.3 8.9 MG 1.6* 1.7 -- Assessment: Continue supplementation PLAN: Adjustments per mag level Hyperglycemia 10/30/2019 11/01/2019 Elevated lactic acid level 10/26/2019 0 10/26/2019 Last Assessment & Plan: Assessment/PLAN: Lactic acid elevated in ED, normalized with IV fluids Hold metformin for now Sepsis due to gram-negative UTI (HCC) 10/25/2019 10/26/2019 Last Assessment & Plan: Assessment/PLAN: He presented to the ED with an episode of high-grade fever, has completed third cycle of chemotherapy for diffuse large B-cell lymphoma last week on 10/17/2019 Noted to have fever of 101 in ED, tachycardic, blood pressure normal Lactate elevated normalized with IV fluids Urinalysis revealed cloudy urine with elevated WBC, urine culture sent Blood culture sent from ED Nephrostomy tube changed on 09/15/2019 Previous urine culture grew Serratia Started on Zosyn in ED, continue Follow-up cultures Neutropenic sepsis 09/13/2019 9 Last Assessment & Plan: BC negative. Urine culture result noted. Unable to determine if related to nephrostomy tube. Wait for final rec's from ID for discharge. Nephrostomy status 09/13/2019 Last Assessment & Plan: Assessment/PLAN: Last changed on 09/15/2019, he has appointment on nephrostomy tube exchange Exchange vs removal pending CT scans with Dr Columba Uriarte 07/21/2017 05/22/2021 Pain in right foot 12/11/2016 7 documented as of this encounter (statuses as of 02/04/2024) [facility]02-19-2023 History of Past illness Narrative* Problem Noted Date Resolved Date Hyperkalemia 12/14/2022 12/18/2022 UTI (urinary tract infection) 12/14/2022 Hypomagnesemia 10/30/2019 11/01/2019 Last Assessment & Plan: Recent Labs 10/30/19 0615 10/29/19 0615 10/28/19 0600 BUN 13 11 9 CREAT 0.85 0.82 0.77 CA 9.4 9.3 8.9 MG 1.6* 1.7 -- Assessment: Continue supplementation PLAN: Adjustments per mag level Hyperglycemia 10/30/2019 11/01/2019 Elevated lactic acid level 10/26/201910/26 Last Assessment & Plan: Assessment/PLAN: Lactic acid elevated in ED, normalized with IV fluids Hold metformin for now Sepsis due to gram-negative UTI 10/25/2019 10/26/2019 Last Assessment & Plan: Assessment/PLAN: He presented to the ED with an episode of high-grade fever, has completed third cycle of chemotherapy for diffuse large B-cell lymphoma last week on 10/17/2019 Noted to have fever of 101 in ED, tachycardic, blood pressure normal Lactate elevated normalized with IV fluids Urinalysis revealed cloudy urine with elevated WBC, urine culture sent Blood culture sent from ED Nephrostomy tube changed on 09/15/2019 Previous urine culture grew Serratia Started on Zosyn in ED, continue Follow-up cultures Neutropenic sepsis 09/13/2019 09/16/2019 Last Assessment & Plan: BC negative. Urine culture result noted. Unable to determine if related to nephrostomy tube. Wait for final rec's from ID for discharge. Nephrostomy status 09/13/2019 05/22/2021 Last Assessment & Plan: Assessment/PLAN: Last changed on 09/15/2019, he has appointment on nephrostomy tube exchange Exchange vs removal pending CT scans with Dr Waterman Onheroomycsera 07/21/2017 05/22/2021 Pain in right foot 12/11/2016 12/11/2016 documented as of this encounter (statuses as of 12/22/2022) [facility] History of Past illness Narrative* Problem Noted Date Resolved Date Hyperkalemia 12/14/2022 12/18/2022 UTI (urinary tract infection) 12/14/2022 Hypomagnesemia 10/30/2019 11/01/2019 Last Assessment & Plan: Recent Labs 10/30/19 0615 10/29/19 0615 10/28/19 0600 BUN 13 11 9 CREAT 0.85 0.82 0.77 CA 9.4 9.3 8.9 MG 1.6* 1.7 -- Assessment: Continue supplementation PLAN: Adjustments per mag level Hyperglycemia 10/30/2019 11/01/2019 Elevated lactic acid level 10/26/201910/26 Last Assessment & Plan: Assessment/PLAN: Lactic acid elevated in ED, normalized with IV fluids Hold metformin for now Sepsis due to gram-negative UTI 10/25/2019 10/26/2019 Last Assessment & Plan: Assessment/PLAN: He presented to the ED with an episode of high-grade fever, has completed third cycle of chemotherapy for diffuse large B-cell lymphoma last week on 10/17/2019 Noted to have fever of 101 in ED, tachycardic, blood pressure normal Lactate elevated normalized with IV fluids Urinalysis revealed cloudy urine with elevated WBC, urine culture sent Blood culture sent from ED Nephrostomy tube changed on 09/15/2019 Previous urine culture grew Serratia Started on Zosyn in ED, continue Follow-up cultures Neutropenic sepsis 09/13/2019 09/16/2019 Last Assessment & Plan: BC negative. Urine culture result noted. Unable to determine if related to nephrostomy tube. Wait for final rec's from ID for discharge. Nephrostomy status 09/13/2019 05/22/2021 Last Assessment & Plan: Assessment/PLAN: Last changed on 09/15/2019, he has appointment on nephrostomy tube exchange Exchange vs removal pending CT scans with Dr Columba Uriarte 07/21/2017 05/22/2021 Pain in right foot 12/11/2016 12/11/2016 documented as of this encounter (statuses as of 12/25/2022) [facility] History of Past illness Narrative* Problem Noted Date Resolved Date Hyperkalemia 12/14/2022 12/18/2022 UTI (urinary tract infection) 12/14/2022 Hypomagnesemia 10/30/2019 11/01/2019 Last Assessment & Plan: Recent Labs 10/30/19 0615 10/29/19 0615 10/28/19 0600 BUN 13 11 9 CREAT 0.85 0.82 0.77 CA 9.4 9.3 8.9 MG 1.6* 1.7 -- Assessment: Continue supplementation PLAN: Adjustments per mag level Hyperglycemia 10/30/2019 11/01/2019 Elevated lactic acid level 10/26/201910/26 Last Assessment & Plan: Assessment/PLAN: Lactic acid elevated in ED, normalized with IV fluids Hold metformin for now Sepsis due to gram-negative UTI 10/25/2019 10/26/2019 Last Assessment & Plan: Assessment/PLAN: He presented to the ED with an episode of high-grade fever, has completed third cycle of chemotherapy for diffuse large B-cell lymphoma last week on 10/17/2019 Noted to have fever of 101 in ED, tachycardic, blood pressure normal Lactate elevated normalized with IV fluids Urinalysis revealed cloudy urine with elevated WBC, urine culture sent Blood culture sent from ED Nephrostomy tube changed on 09/15/2019 Previous urine culture grew Serratia Started on Zosyn in ED, continue Follow-up cultures Neutropenic sepsis 09/13/2019 09/16/2019 Last Assessment & Plan: BC negative. Urine culture result noted. Unable to determine if related to nephrostomy tube. Wait for final rec's from ID for discharge. Nephrostomy status 09/13/2019 05/22/2021 Last Assessment & Plan: Assessment/PLAN: Last changed on 09/15/2019, he has appointment on nephrostomy tube exchange Exchange vs removal pending CT scans with Dr Columba Uriarte 07/21/2017 05/22/2021 Pain in right foot 12/11/2016 12/11/2016 documented as of this encounter (statuses as of 12/30/2022) [facility]02-19-2023 History of Past illness Narrative* Problem Noted Date Resolved Date Hyperkalemia 12/14/2022 12/18/2022 UTI (urinary tract infection) 12/14/20223 Hypomagnesemia 10/30/2019 11/01/2019 Last Assessment & Plan: Recent Labs 10/30/19 0615 10/29/19 0615 10/28/19 0600 BUN 13 11 9 CREAT 0.85 0.82 0.77 CA 9.4 9.3 8.9 MG 1.6* 1.7 -- Assessment: Continue supplementation PLAN: Adjustments per mag level Hyperglycemia 10/30/2019 11/01/2019 Elevated lactic acid level 10/26/201910/26 Last Assessment & Plan: Assessment/PLAN: Lactic acid elevated in ED, normalized with IV fluids Hold metformin for now Sepsis due to gram-negative UTI 10/25/2019 10/26/2019 Last Assessment & Plan: Assessment/PLAN: He presented to the ED with an episode of high-grade fever, has completed third cycle of chemotherapy for diffuse large B-cell lymphoma last week on 10/17/2019 Noted to have fever of 101 in ED, tachycardic, blood pressure normal Lactate elevated normalized with IV fluids Urinalysis revealed cloudy urine with elevated WBC, urine culture sent Blood culture sent from ED Nephrostomy tube changed on 09/15/2019 Previous urine culture grew Serratia Started on Zosyn in ED, continue Follow-up cultures Neutropenic sepsis 09/13/2019 09/16/2019 Last Assessment & Plan: BC negative. Urine culture result noted. Unable to determine if related to nephrostomy tube. Wait for final rec's from ID for discharge. Nephrostomy status 09/13/2019 05/22/2021 Last Assessment & Plan: Assessment/PLAN: Last changed on 09/15/2019, he has appointment on nephrostomy tube exchange Exchange vs removal pending CT scans with Dr Columba Uriarte 07/21/2017 05/22/2021 Pain in right foot 12/11/2016 12/11/2016 documented as of this encounter (statuses as of 01/05/2023) [facility]02-19-2023 History of Past illness Narrative* Problem Noted Date Resolved Date Hyperkalemia 12/14/2022 12/18/2022 UTI (urinary tract infection) 12/14/2022 Hypomagnesemia 10/30/2019 11/01/2019 Last Assessment & Plan: Recent Labs 10/30/19 0615 10/29/19 0615 10/28/19 0600 BUN 13 11 9 CREAT 0.85 0.82 0.77 CA 9.4 9.3 8.9 MG 1.6* 1.7 -- Assessment: Continue supplementation PLAN: Adjustments per mag level Hyperglycemia 10/30/2019 11/01/2019 Elevated lactic acid level 10/26/201910/26 Last Assessment & Plan: Assessment/PLAN: Lactic acid elevated in ED, normalized with IV fluids Hold metformin for now Sepsis due to gram-negative UTI 10/25/2019 10/26/2019 Last Assessment & Plan: Assessment/PLAN: He presented to the ED with an episode of high-grade fever, has completed third cycle of chemotherapy for diffuse large B-cell lymphoma last week on 10/17/2019 Noted to have fever of 101 in ED, tachycardic, blood pressure normal Lactate elevated normalized with IV fluids Urinalysis revealed cloudy urine with elevated WBC, urine culture sent Blood culture sent from ED Nephrostomy tube changed on 09/15/2019 Previous urine culture grew Serratia Started on Zosyn in ED, continue Follow-up cultures Neutropenic sepsis 09/13/2019 09/16/2019 Last Assessment & Plan: BC negative. Urine culture result noted. Unable to determine if related to nephrostomy tube. Wait for final rec's from ID for discharge. Nephrostomy status 09/13/2019 05/22/2021 Last Assessment & Plan: Assessment/PLAN: Last changed on 09/15/2019, he has appointment on nephrostomy tube exchange Exchange vs removal pending CT scans with Dr Columba Uriarte 07/21/2017 05/22/2021 Pain in right foot 12/11/2016 12/11/2016 documented as of this encounter (statuses as of 01/08/2023) [facility]02-19-2023 History of Past illness Narrative* Problem Noted Date Resolved Date UTI (urinary tract infection) 12/14/2022 Hypomagnesemia 10/30/2019 11/01/2019 Last Assessment & Plan: Recent Labs 10/30/19 0615 10/29/19 0615 10/28/19 0600 BUN 13 11 9 CREAT 0.85 0.82 0.77 CA 9.4 9.3 8.9 MG 1.6* 1.7 -- Assessment: Continue supplementation PLAN: Adjustments per mag level Hyperglycemia 10/30/2019 11/01/2019 Elevated lactic acid level 10/26/201910/26 Last Assessment & Plan: Assessment/PLAN: Lactic acid elevated in ED, normalized with IV fluids Hold metformin for now Sepsis due to gram-negative UTI 10/25/2019 10/26/2019 Last Assessment & Plan: Assessment/PLAN: He presented to the ED with an episode of high-grade fever, has completed third cycle of chemotherapy for diffuse large B-cell lymphoma last week on 10/17/2019 Noted to have fever of 101 in ED, tachycardic, blood pressure normal Lactate elevated normalized with IV fluids Urinalysis revealed cloudy urine with elevated WBC, urine culture sent Blood culture sent from ED Nephrostomy tube changed on 09/15/2019 Previous urine culture grew Serratia Started on Zosyn in ED, continue Follow-up cultures Neutropenic sepsis 09/13/2019 09/16/2019 Last Assessment & Plan: BC negative. Urine culture result noted. Unable to determine if related to nephrostomy tube. Wait for final rec's from ID for discharge. Nephrostomy status 09/13/2019 05/22/2021 Last Assessment & Plan: Assessment/PLAN: Last changed on 09/15/2019, he has appointment on nephrostomy tube exchange Exchange vs removal pending CT scans with Dr Columba Uriarte 07/21/2017 05/22/2021 Pain in right foot 12/11/2016 12/11/2016 documented as of this encounter (statuses as of 01/13/2023) [facility]02-19-2023 History of Past illness Narrative* Problem Noted Date Resolved Date UTI (urinary tract infection) 12/14/2022 Hypomagnesemia 10/30/2019 11/01/2019 Last Assessment & Plan: Recent Labs 10/30/19 0615 10/29/19 0615 10/28/19 0600 BUN 13 11 9 CREAT 0.85 0.82 0.77 CA 9.4 9.3 8.9 MG 1.6* 1.7 -- Assessment: Continue supplementation PLAN: Adjustments per mag level Hyperglycemia 10/30/2019 11/01/2019 Elevated lactic acid level 10/26/201910/26 Last Assessment & Plan: Assessment/PLAN: Lactic acid elevated in ED, normalized with IV fluids Hold metformin for now Sepsis due to gram-negative UTI 10/25/2019 10/26/2019 Last Assessment & Plan: Assessment/PLAN: He presented to the ED with an episode of high-grade fever, has completed third cycle of chemotherapy for diffuse large B-cell lymphoma last week on 10/17/2019 Noted to have fever of 101 in ED, tachycardic, blood pressure normal Lactate elevated normalized with IV fluids Urinalysis revealed cloudy urine with elevated WBC, urine culture sent Blood culture sent from ED Nephrostomy tube changed on 09/15/2019 Previous urine culture grew Serratia Started on Zosyn in ED, continue Follow-up cultures Neutropenic sepsis 09/13/2019 09/16/2019 Last Assessment & Plan: BC negative. Urine culture result noted. Unable to determine if related to nephrostomy tube. Wait for final rec's from ID for discharge. Nephrostomy status 09/13/2019 05/22/2021 Last Assessment & Plan: Assessment/PLAN: Last changed on 09/15/2019, he has appointment on nephrostomy tube exchange Exchange vs removal pending CT scans with Dr Columba Vargasosis 07/21/2017 05/22/2021 Pain in right foot 12/11/2016 12/11/2016 documented as of this encounter (statuses as of 01/16/2023) [facility]02-19-2023 History of Past illness Narrative* Problem Noted Date Resolved Date UTI (urinary tract infection) 12/14/2022 Hypomagnesemia 10/30/2019 11/01/2019 Last Assessment & Plan: Recent Labs 10/30/19 0615 10/29/19 0615 10/28/19 0600 BUN 13 11 9 CREAT 0.85 0.82 0.77 CA 9.4 9.3 8.9 MG 1.6* 1.7 -- Assessment: Continue supplementation PLAN: Adjustments per mag level Hyperglycemia 10/30/2019 11/01/2019 Elevated lactic acid level 10/26/201910/26 Last Assessment & Plan: Assessment/PLAN: Lactic acid elevated in ED, normalized with IV fluids Hold metformin for now Sepsis due to gram-negative UTI 10/25/2019 10/26/2019 Last Assessment & Plan: Assessment/PLAN: He presented to the ED with an episode of high-grade fever, has completed third cycle of chemotherapy for diffuse large B-cell lymphoma last week on 10/17/2019 Noted to have fever of 101 in ED, tachycardic, blood pressure normal Lactate elevated normalized with IV fluids Urinalysis revealed cloudy urine with elevated WBC, urine culture sent Blood culture sent from ED Nephrostomy tube changed on 09/15/2019 Previous urine culture grew Serratia Started on Zosyn in ED, continue Follow-up cultures Neutropenic sepsis 09/13/2019 09/16/2019 Last Assessment & Plan: BC negative. Urine culture result noted. Unable to determine if related to nephrostomy tube. Wait for final rec's from ID for discharge. Nephrostomy status 09/13/2019 05/22/2021 Last Assessment & Plan: Assessment/PLAN: Last changed on 09/15/2019, he has appointment on nephrostomy tube exchange Exchange vs removal pending CT scans with Dr Waterman Onychomycosis 07/21/2017 05/22/2021 Pain in right foot 12/11/2016 12/11/2016 documented as of this encounter (statuses as of 01/16/2023) [facility]02-19-2023 History of Past illness Narrative* Problem Noted Date Resolved Date UTI (urinary tract infection) 12/14/2022 Hypomagnesemia 10/30/2019 11/01/2019 Last Assessment & Plan: Recent Labs 10/30/19 0615 10/29/19 0615 10/28/19 0600 BUN 13 11 9 CREAT 0.85 0.82 0.77 CA 9.4 9.3 8.9 MG 1.6* 1.7 -- Assessment: Continue supplementation PLAN: Adjustments per mag level Hyperglycemia 10/30/2019 11/01/2019 Elevated lactic acid level 10/26/201910/26 Last Assessment & Plan: Assessment/PLAN: Lactic acid elevated in ED, normalized with IV fluids Hold metformin for now Sepsis due to gram-negative UTI 10/25/2019 10/26/2019 Last Assessment & Plan: Assessment/PLAN: He presented to the ED with an episode of high-grade fever, has completed third cycle of chemotherapy for diffuse large B-cell lymphoma last week on 10/17/2019 Noted to have fever of 101 in ED, tachycardic, blood pressure normal Lactate elevated normalized with IV fluids Urinalysis revealed cloudy urine with elevated WBC, urine culture sent Blood culture sent from ED Nephrostomy tube changed on 09/15/2019 Previous urine culture grew Serratia Started on Zosyn in ED, continue Follow-up cultures Neutropenic sepsis 09/13/2019 09/16/2019 Last Assessment & Plan: BC negative. Urine culture result noted. Unable to determine if related to nephrostomy tube. Wait for final rec's from ID for discharge. Nephrostomy status 09/13/2019 05/22/2021 Last Assessment & Plan: Assessment/PLAN: Last changed on 09/15/2019, he has appointment on nephrostomy tube exchange Exchange vs removal pending CT scans with Dr Waterman Onychomycosis 07/21/2017 05/22/2021 Pain in right foot 12/11/2016 12/11/2016 documented as of this encounter (statuses as of 01/20/2023) [facility]02-19-2023 History of Past illness Narrative* Problem Noted Date Resolved Date UTI (urinary tract infection) 12/14/2022 Hypomagnesemia 10/30/2019 11/01/2019 Last Assessment & Plan: Recent Labs 10/30/19 0615 10/29/19 0615 10/28/19 0600 BUN 13 11 9 CREAT 0.85 0.82 0.77 CA 9.4 9.3 8.9 MG 1.6* 1.7 -- Assessment: Continue supplementation PLAN: Adjustments per mag level Hyperglycemia 10/30/2019 11/01/2019 Elevated lactic acid level 10/26/201910/26 Last Assessment & Plan: Assessment/PLAN: Lactic acid elevated in ED, normalized with IV fluids Hold metformin for now Sepsis due to gram-negative UTI 10/25/2019 10/26/2019 Last Assessment & Plan: Assessment/PLAN: He presented to the ED with an episode of high-grade fever, has completed third cycle of chemotherapy for diffuse large B-cell lymphoma last week on 10/17/2019 Noted to have fever of 101 in ED, tachycardic, blood pressure normal Lactate elevated normalized with IV fluids Urinalysis revealed cloudy urine with elevated WBC, urine culture sent Blood culture sent from ED Nephrostomy tube changed on 09/15/2019 Previous urine culture grew Serratia Started on Zosyn in ED, continue Follow-up cultures Neutropenic sepsis 09/13/2019 09/16/2019 Last Assessment & Plan: BC negative. Urine culture result noted. Unable to determine if related to nephrostomy tube. Wait for final rec's from ID for discharge. Nephrostomy status 09/13/2019 05/22/2021 Last Assessment & Plan: Assessment/PLAN: Last changed on 09/15/2019, he has appointment on nephrostomy tube exchange Exchange vs removal pending CT scans with Dr Waterman Onheroomycsera 07/21/2017 05/22/2021 Pain in right foot 12/11/2016 12/11/2016 documented as of this encounter (statuses as of 01/22/2023) [facility]02-19-2023 History of Past illness Narrative* Problem Noted Date Resolved Date UTI (urinary tract infection) 12/14/2022 Hypomagnesemia 10/30/2019 11/01/2019 Last Assessment & Plan: Recent Labs 10/30/19 0615 10/29/19 0615 10/28/19 0600 BUN 13 11 9 CREAT 0.85 0.82 0.77 CA 9.4 9.3 8.9 MG 1.6* 1.7 -- Assessment: Continue supplementation PLAN: Adjustments per mag level Hyperglycemia 10/30/2019 11/01/2019 Elevated lactic acid level 10/26/201910/26 Last Assessment & Plan: Assessment/PLAN: Lactic acid elevated in ED, normalized with IV fluids Hold metformin for now Sepsis due to gram-negative UTI 10/25/2019 10/26/2019 Last Assessment & Plan: Assessment/PLAN: He presented to the ED with an episode of high-grade fever, has completed third cycle of chemotherapy for diffuse large B-cell lymphoma last week on 10/17/2019 Noted to have fever of 101 in ED, tachycardic, blood pressure normal Lactate elevated normalized with IV fluids Urinalysis revealed cloudy urine with elevated WBC, urine culture sent Blood culture sent from ED Nephrostomy tube changed on 09/15/2019 Previous urine culture grew Serratia Started on Zosyn in ED, continue Follow-up cultures Neutropenic sepsis 09/13/2019 09/16/2019 Last Assessment & Plan: BC negative. Urine culture result noted. Unable to determine if related to nephrostomy tube. Wait for final rec's from ID for discharge. Nephrostomy status 09/13/2019 05/22/2021 Last Assessment & Plan: Assessment/PLAN: Last changed on 09/15/2019, he has appointment on nephrostomy tube exchange Exchange vs removal pending CT scans with Dr Waterman Onheroomycsera 07/21/2017 05/22/2021 Pain in right foot 12/11/2016 12/11/2016 documented as of this encounter (statuses as of 01/27/2023) [facility]-19-2023 History of Past illness Narrative* Problem Noted Date Resolved Date UTI (urinary tract infection) 12/14/2022 Hypomagnesemia 10/30/2019 11/01/2019 Last Assessment & Plan: Recent Labs 10/30/19 0615 10/29/19 0615 10/28/19 0600 BUN 13 11 9 CREAT 0.85 0.82 0.77 CA 9.4 9.3 8.9 MG 1.6* 1.7 -- Assessment: Continue supplementation PLAN: Adjustments per mag level Hyperglycemia 10/30/2019 11/01/2019 Elevated lactic acid level 10/26/201910/26 Last Assessment & Plan: Assessment/PLAN: Lactic acid elevated in ED, normalized with IV fluids Hold metformin for now Sepsis due to gram-negative UTI 10/25/2019 10/26/2019 Last Assessment & Plan: Assessment/PLAN: He presented to the ED with an episode of high-grade fever, has completed third cycle of chemotherapy for diffuse large B-cell lymphoma last week on 10/17/2019 Noted to have fever of 101 in ED, tachycardic, blood pressure normal Lactate elevated normalized with IV fluids Urinalysis revealed cloudy urine with elevated WBC, urine culture sent Blood culture sent from ED Nephrostomy tube changed on 09/15/2019 Previous urine culture grew Serratia Started on Zosyn in ED, continue Follow-up cultures Neutropenic sepsis 09/13/2019 09/16/2019 Last Assessment & Plan: BC negative. Urine culture result noted. Unable to determine if related to nephrostomy tube. Wait for final rec's from ID for discharge. Nephrostomy status 09/13/2019 05/22/2021 Last Assessment & Plan: Assessment/PLAN: Last changed on 09/15/2019, he has appointment on nephrostomy tube exchange Exchange vs removal pending CT scans with Dr Waterman Onychomycosis 07/21/2017 05/22/2021 Pain in right foot 12/11/2016 12/11/2016 documented as of this encounter (statuses as of 01/27/2023) [facility]-19-2023 History of Past illness Narrative* Problem Noted Date Resolved Date UTI (urinary tract infection) 12/14/2022 Hypomagnesemia 10/30/2019 11/01/2019 Last Assessment & Plan: Recent Labs 10/30/19 0615 10/29/19 0615 10/28/19 0600 BUN 13 11 9 CREAT 0.85 0.82 0.77 CA 9.4 9.3 8.9 MG 1.6* 1.7 -- Assessment: Continue supplementation PLAN: Adjustments per mag level Hyperglycemia 10/30/2019 11/01/2019 Elevated lactic acid level 10/26/201910/26 Last Assessment & Plan: Assessment/PLAN: Lactic acid elevated in ED, normalized with IV fluids Hold metformin for now Sepsis due to gram-negative UTI 10/25/2019 10/26/2019 Last Assessment & Plan: Assessment/PLAN: He presented to the ED with an episode of high-grade fever, has completed third cycle of chemotherapy for diffuse large B-cell lymphoma last week on 10/17/2019 Noted to have fever of 101 in ED, tachycardic, blood pressure normal Lactate elevated normalized with IV fluids Urinalysis revealed cloudy urine with elevated WBC, urine culture sent Blood culture sent from ED Nephrostomy tube changed on 09/15/2019 Previous urine culture grew Serratia Started on Zosyn in ED, continue Follow-up cultures Neutropenic sepsis 09/13/2019 09/16/2019 Last Assessment & Plan: BC negative. Urine culture result noted. Unable to determine if related to nephrostomy tube. Wait for final rec's from ID for discharge. Nephrostomy status 09/13/2019 05/22/2021 Last Assessment & Plan: Assessment/PLAN: Last changed on 09/15/2019, he has appointment on nephrostomy tube exchange Exchange vs removal pending CT scans with Dr Waterman Onychomycosis 07/21/2017 05/22/2021 Pain in right foot 12/11/2016 12/11/2016 documented as of this encounter (statuses as of 02/03/2023) [facility]19-2023 History of Past illness Narrative* Problem Noted Date Resolved Date UTI (urinary tract infection) 12/14/2022 Hypomagnesemia 10/30/2019 11/01/2019 Last Assessment & Plan: Recent Labs 10/30/19 0615 10/29/19 0615 10/28/19 0600 BUN 13 11 9 CREAT 0.85 0.82 0.77 CA 9.4 9.3 8.9 MG 1.6* 1.7 -- Assessment: Continue supplementation PLAN: Adjustments per mag level Hyperglycemia 10/30/2019 11/01/2019 Elevated lactic acid level 10/26/201910/26 Last Assessment & Plan: Assessment/PLAN: Lactic acid elevated in ED, normalized with IV fluids Hold metformin for now Sepsis due to gram-negative UTI 10/25/2019 10/26/2019 Last Assessment & Plan: Assessment/PLAN: He presented to the ED with an episode of high-grade fever, has completed third cycle of chemotherapy for diffuse large B-cell lymphoma last week on 10/17/2019 Noted to have fever of 101 in ED, tachycardic, blood pressure normal Lactate elevated normalized with IV fluids Urinalysis revealed cloudy urine with elevated WBC, urine culture sent Blood culture sent from ED Nephrostomy tube changed on 09/15/2019 Previous urine culture grew Serratia Started on Zosyn in ED, continue Follow-up cultures Neutropenic sepsis 09/13/2019 09/16/2019 Last Assessment & Plan: BC negative. Urine culture result noted. Unable to determine if related to nephrostomy tube. Wait for final rec's from ID for discharge. Nephrostomy status 09/13/2019 05/22/2021 Last Assessment & Plan: Assessment/PLAN: Last changed on 09/15/2019, he has appointment on nephrostomy tube exchange Exchange vs removal pending CT scans with Dr Waterman Onychomycsera 07/21/2017 05/22/2021 Pain in right foot 12/11/2016 12/11/2016 documented as of this encounter (statuses as of 02/05/2023) [facility] History of Past illness Narrative* Problem Noted Date Resolved Date UTI (urinary tract infection) 12/14/2022 Hypomagnesemia 10/30/2019 11/01/2019 Last Assessment & Plan: Recent Labs 10/30/19 0615 10/29/19 0615 10/28/19 0600 BUN 13 11 9 CREAT 0.85 0.82 0.77 CA 9.4 9.3 8.9 MG 1.6* 1.7 -- Assessment: Continue supplementation PLAN: Adjustments per mag level Hyperglycemia 10/30/2019 11/01/2019 Elevated lactic acid level 10/26/201910/26 Last Assessment & Plan: Assessment/PLAN: Lactic acid elevated in ED, normalized with IV fluids Hold metformin for now Sepsis due to gram-negative UTI 10/25/2019 10/26/2019 Last Assessment & Plan: Assessment/PLAN: He presented to the ED with an episode of high-grade fever, has completed third cycle of chemotherapy for diffuse large B-cell lymphoma last week on 10/17/2019 Noted to have fever of 101 in ED, tachycardic, blood pressure normal Lactate elevated normalized with IV fluids Urinalysis revealed cloudy urine with elevated WBC, urine culture sent Blood culture sent from ED Nephrostomy tube changed on 09/15/2019 Previous urine culture grew Serratia Started on Zosyn in ED, continue Follow-up cultures Neutropenic sepsis 09/13/2019 09/16/2019 Last Assessment & Plan: BC negative. Urine culture result noted. Unable to determine if related to nephrostomy tube. Wait for final rec's from ID for discharge. Nephrostomy status 09/13/2019 05/22/2021 Last Assessment & Plan: Assessment/PLAN: Last changed on 09/15/2019, he has appointment on nephrostomy tube exchange Exchange vs removal pending CT scans with Dr Waterman Onychomycosis 07/21/2017 05/22/2021 Pain in right foot 12/11/2016 12/11/2016 documented as of this encounter (statuses as of 02/06/2023) [facility] History of Past illness Narrative* Problem Noted Date Resolved Date UTI (urinary tract infection) 12/14/2022 Hypomagnesemia 10/30/2019 11/01/2019 Last Assessment & Plan: Recent Labs 10/30/19 0615 10/29/19 0615 10/28/19 0600 BUN 13 11 9 CREAT 0.85 0.82 0.77 CA 9.4 9.3 8.9 MG 1.6* 1.7 -- Assessment: Continue supplementation PLAN: Adjustments per mag level Hyperglycemia 10/30/2019 11/01/2019 Elevated lactic acid level 10/26/201910/26 Last Assessment & Plan: Assessment/PLAN: Lactic acid elevated in ED, normalized with IV fluids Hold metformin for now Sepsis due to gram-negative UTI 10/25/2019 10/26/2019 Last Assessment & Plan: Assessment/PLAN: He presented to the ED with an episode of high-grade fever, has completed third cycle of chemotherapy for diffuse large B-cell lymphoma last week on 10/17/2019 Noted to have fever of 101 in ED, tachycardic, blood pressure normal Lactate elevated normalized with IV fluids Urinalysis revealed cloudy urine with elevated WBC, urine culture sent Blood culture sent from ED Nephrostomy tube changed on 09/15/2019 Previous urine culture grew Serratia Started on Zosyn in ED, continue Follow-up cultures Neutropenic sepsis 09/13/2019 09/16/2019 Last Assessment & Plan: BC negative. Urine culture result noted. Unable to determine if related to nephrostomy tube. Wait for final rec's from ID for discharge. Nephrostomy status 09/13/2019 05/22/2021 Last Assessment & Plan: Assessment/PLAN: Last changed on 09/15/2019, he has appointment on nephrostomy tube exchange Exchange vs removal pending CT scans with Dr Waterman Onychomycosis 07/21/2017 05/22/2021 Pain in right foot 12/11/2016 12/11/2016 documented as of this encounter (statuses as of 02/07/2023) [facility] History of Past illness Narrative* Problem Noted Date Resolved Date UTI (urinary tract infection) 12/14/2022 Hypomagnesemia 10/30/2019 11/01/2019 Last Assessment & Plan: Recent Labs 10/30/19 0615 10/29/19 0615 10/28/19 0600 BUN 13 11 9 CREAT 0.85 0.82 0.77 CA 9.4 9.3 8.9 MG 1.6* 1.7 -- Assessment: Continue supplementation PLAN: Adjustments per mag level Hyperglycemia 10/30/2019 11/01/2019 Elevated lactic acid level 10/26/201910/26 Last Assessment & Plan: Assessment/PLAN: Lactic acid elevated in ED, normalized with IV fluids Hold metformin for now Sepsis due to gram-negative UTI 10/25/2019 10/26/2019 Last Assessment & Plan: Assessment/PLAN: He presented to the ED with an episode of high-grade fever, has completed third cycle of chemotherapy for diffuse large B-cell lymphoma last week on 10/17/2019 Noted to have fever of 101 in ED, tachycardic, blood pressure normal Lactate elevated normalized with IV fluids Urinalysis revealed cloudy urine with elevated WBC, urine culture sent Blood culture sent from ED Nephrostomy tube changed on 09/15/2019 Previous urine culture grew Serratia Started on Zosyn in ED, continue Follow-up cultures Neutropenic sepsis 09/13/2019 09/16/2019 Last Assessment & Plan: BC negative. Urine culture result noted. Unable to determine if related to nephrostomy tube. Wait for final rec's from ID for discharge. Nephrostomy status 09/13/2019 05/22/2021 Last Assessment & Plan: Assessment/PLAN: Last changed on 09/15/2019, he has appointment on nephrostomy tube exchange Exchange vs removal pending CT scans with Dr Columba Uriarte 07/21/2017 05/22/2021 Pain in right foot 12/11/2016 12/11/2016 documented as of this encounter (statuses as of 02/10/2023) [facility]02-19-2023 History of Past illness Narrative* Problem Noted Date Resolved Date UTI (urinary tract infection) 12/14/2022 Hypomagnesemia 10/30/2019 11/01/2019 Last Assessment & Plan: Recent Labs 10/30/19 0615 10/29/19 0615 10/28/19 0600 BUN 13 11 9 CREAT 0.85 0.82 0.77 CA 9.4 9.3 8.9 MG 1.6* 1.7 -- Assessment: Continue supplementation PLAN: Adjustments per mag level Hyperglycemia 10/30/2019 11/01/2019 Elevated lactic acid level 10/26/201910/26 Last Assessment & Plan: Assessment/PLAN: Lactic acid elevated in ED, normalized with IV fluids Hold metformin for now Sepsis due to gram-negative UTI 10/25/2019 10/26/2019 Last Assessment & Plan: Assessment/PLAN: He presented to the ED with an episode of high-grade fever, has completed third cycle of chemotherapy for diffuse large B-cell lymphoma last week on 10/17/2019 Noted to have fever of 101 in ED, tachycardic, blood pressure normal Lactate elevated normalized with IV fluids Urinalysis revealed cloudy urine with elevated WBC, urine culture sent Blood culture sent from ED Nephrostomy tube changed on 09/15/2019 Previous urine culture grew Serratia Started on Zosyn in ED, continue Follow-up cultures Neutropenic sepsis 09/13/2019 09/16/2019 Last Assessment & Plan: BC negative. Urine culture result noted. Unable to determine if related to nephrostomy tube. Wait for final rec's from ID for discharge. Nephrostomy status 09/13/2019 05/22/2021 Last Assessment & Plan: Assessment/PLAN: Last changed on 09/15/2019, he has appointment on nephrostomy tube exchange Exchange vs removal pending CT scans with Dr Waterman Onheroomycsera 07/21/2017 05/22/2021 Pain in right foot 12/11/2016 12/11/2016 documented as of this encounter (statuses as of 02/12/2023) [facility]02-19-2023 History of Past illness Narrative* Problem Noted Date Resolved Date UTI (urinary tract infection) 12/14/2022 Hypomagnesemia 10/30/2019 11/01/2019 Last Assessment & Plan: Recent Labs 10/30/19 0615 10/29/19 0615 10/28/19 0600 BUN 13 11 9 CREAT 0.85 0.82 0.77 CA 9.4 9.3 8.9 MG 1.6* 1.7 -- Assessment: Continue supplementation PLAN: Adjustments per mag level Hyperglycemia 10/30/2019 11/01/2019 Elevated lactic acid level 10/26/201910/26 Last Assessment & Plan: Assessment/PLAN: Lactic acid elevated in ED, normalized with IV fluids Hold metformin for now Sepsis due to gram-negative UTI 10/25/2019 10/26/2019 Last Assessment & Plan: Assessment/PLAN: He presented to the ED with an episode of high-grade fever, has completed third cycle of chemotherapy for diffuse large B-cell lymphoma last week on 10/17/2019 Noted to have fever of 101 in ED, tachycardic, blood pressure normal Lactate elevated normalized with IV fluids Urinalysis revealed cloudy urine with elevated WBC, urine culture sent Blood culture sent from ED Nephrostomy tube changed on 09/15/2019 Previous urine culture grew Serratia Started on Zosyn in ED, continue Follow-up cultures Neutropenic sepsis 09/13/2019 09/16/2019 Last Assessment & Plan: BC negative. Urine culture result noted. Unable to determine if related to nephrostomy tube. Wait for final rec's from ID for discharge. Nephrostomy status 09/13/2019 05/22/2021 Last Assessment & Plan: Assessment/PLAN: Last changed on 09/15/2019, he has appointment on nephrostomy tube exchange Exchange vs removal pending CT scans with Dr Waterman Onychomycsera 07/21/2017 05/22/2021 Pain in right foot 12/11/2016 12/11/2016 documented as of this encounter (statuses as of 02/13/2023) [facility]02-19-2023 History of Past illness Narrative* Problem Noted Date Resolved Date UTI (urinary tract infection) 12/14/2022 Hypomagnesemia 10/30/2019 11/01/2019 Last Assessment & Plan: Recent Labs 10/30/19 0615 10/29/19 0615 10/28/19 0600 BUN 13 11 9 CREAT 0.85 0.82 0.77 CA 9.4 9.3 8.9 MG 1.6* 1.7 -- Assessment: Continue supplementation PLAN: Adjustments per mag level Hyperglycemia 10/30/2019 11/01/2019 Elevated lactic acid level 10/26/201910/26 Last Assessment & Plan: Assessment/PLAN: Lactic acid elevated in ED, normalized with IV fluids Hold metformin for now Sepsis due to gram-negative UTI 10/25/2019 10/26/2019 Last Assessment & Plan: Assessment/PLAN: He presented to the ED with an episode of high-grade fever, has completed third cycle of chemotherapy for diffuse large B-cell lymphoma last week on 10/17/2019 Noted to have fever of 101 in ED, tachycardic, blood pressure normal Lactate elevated normalized with IV fluids Urinalysis revealed cloudy urine with elevated WBC, urine culture sent Blood culture sent from ED Nephrostomy tube changed on 09/15/2019 Previous urine culture grew Serratia Started on Zosyn in ED, continue Follow-up cultures Neutropenic sepsis 09/13/2019 09/16/2019 Last Assessment & Plan: BC negative. Urine culture result noted. Unable to determine if related to nephrostomy tube. Wait for final rec's from ID for discharge. Nephrostomy status 09/13/2019 05/22/2021 Last Assessment & Plan: Assessment/PLAN: Last changed on 09/15/2019, he has appointment on nephrostomy tube exchange Exchange vs removal pending CT scans with Dr Waterman Onychomycsera 07/21/2017 05/22/2021 Pain in right foot 12/11/2016 12/11/2016 documented as of this encounter (statuses as of 02/17/2023) [facility]02-19-2023 History of Past illness Narrative* Problem Noted Date Resolved Date UTI (urinary tract infection) 12/14/2022 Hypomagnesemia 10/30/2019 11/01/2019 Last Assessment & Plan: Recent Labs 10/30/19 0615 10/29/19 0615 10/28/19 0600 BUN 13 11 9 CREAT 0.85 0.82 0.77 CA 9.4 9.3 8.9 MG 1.6* 1.7 -- Assessment: Continue supplementation PLAN: Adjustments per mag level Hyperglycemia 10/30/2019 11/01/2019 Elevated lactic acid level 10/26/201910/26 Last Assessment & Plan: Assessment/PLAN: Lactic acid elevated in ED, normalized with IV fluids Hold metformin for now Sepsis due to gram-negative UTI 10/25/2019 10/26/2019 Last Assessment & Plan: Assessment/PLAN: He presented to the ED with an episode of high-grade fever, has completed third cycle of chemotherapy for diffuse large B-cell lymphoma last week on 10/17/2019 Noted to have fever of 101 in ED, tachycardic, blood pressure normal Lactate elevated normalized with IV fluids Urinalysis revealed cloudy urine with elevated WBC, urine culture sent Blood culture sent from ED Nephrostomy tube changed on 09/15/2019 Previous urine culture grew Serratia Started on Zosyn in ED, continue Follow-up cultures Neutropenic sepsis 09/13/2019 09/16/2019 Last Assessment & Plan: BC negative. Urine culture result noted. Unable to determine if related to nephrostomy tube. Wait for final rec's from ID for discharge. Nephrostomy status 09/13/2019 05/22/2021 Last Assessment & Plan: Assessment/PLAN: Last changed on 09/15/2019, he has appointment on nephrostomy tube exchange Exchange vs removal pending CT scans with Dr Waterman Onychomycosis 07/21/2017 05/22/2021 Pain in right foot 12/11/2016 12/11/2016 documented as of this encounter (statuses as of 02/20/2023) [facility]02-19-2023 History of Past illness Narrative* Problem Noted Date Resolved Date UTI (urinary tract infection) 12/14/2022 Hypomagnesemia 10/30/2019 11/01/2019 Last Assessment & Plan: Recent Labs 10/30/19 0615 10/29/19 0615 10/28/19 0600 BUN 13 11 9 CREAT 0.85 0.82 0.77 CA 9.4 9.3 8.9 MG 1.6* 1.7 -- Assessment: Continue supplementation PLAN: Adjustments per mag level Hyperglycemia 10/30/2019 11/01/2019 Elevated lactic acid level 10/26/201910/26 Last Assessment & Plan: Assessment/PLAN: Lactic acid elevated in ED, normalized with IV fluids Hold metformin for now Sepsis due to gram-negative UTI 10/25/2019 10/26/2019 Last Assessment & Plan: Assessment/PLAN: He presented to the ED with an episode of high-grade fever, has completed third cycle of chemotherapy for diffuse large B-cell lymphoma last week on 10/17/2019 Noted to have fever of 101 in ED, tachycardic, blood pressure normal Lactate elevated normalized with IV fluids Urinalysis revealed cloudy urine with elevated WBC, urine culture sent Blood culture sent from ED Nephrostomy tube changed on 09/15/2019 Previous urine culture grew Serratia Started on Zosyn in ED, continue Follow-up cultures Neutropenic sepsis 09/13/2019 09/16/2019 Last Assessment & Plan: BC negative. Urine culture result noted. Unable to determine if related to nephrostomy tube. Wait for final rec's from ID for discharge. Nephrostomy status 09/13/2019 05/22/2021 Last Assessment & Plan: Assessment/PLAN: Last changed on 09/15/2019, he has appointment on nephrostomy tube exchange Exchange vs removal pending CT scans with Dr Columba Uriarte 07/21/2017 05/22/2021 Pain in right foot 12/11/2016 12/11/2016 documented as of this encounter (statuses as of 02/20/2023) [facility]02-19-2023 History of Past illness Narrative* Problem Noted Date Resolved Date UTI (urinary tract infection) 12/14/2022 Hypomagnesemia 10/30/2019 11/01/2019 Last Assessment & Plan: Recent Labs 10/30/19 0615 10/29/19 0615 10/28/19 0600 BUN 13 11 9 CREAT 0.85 0.82 0.77 CA 9.4 9.3 8.9 MG 1.6* 1.7 -- Assessment: Continue supplementation PLAN: Adjustments per mag level Hyperglycemia 10/30/2019 11/01/2019 Elevated lactic acid level 10/26/201910/26 Last Assessment & Plan: Assessment/PLAN: Lactic acid elevated in ED, normalized with IV fluids Hold metformin for now Sepsis due to gram-negative UTI 10/25/2019 10/26/2019 Last Assessment & Plan: Assessment/PLAN: He presented to the ED with an episode of high-grade fever, has completed third cycle of chemotherapy for diffuse large B-cell lymphoma last week on 10/17/2019 Noted to have fever of 101 in ED, tachycardic, blood pressure normal Lactate elevated normalized with IV fluids Urinalysis revealed cloudy urine with elevated WBC, urine culture sent Blood culture sent from ED Nephrostomy tube changed on 09/15/2019 Previous urine culture grew Serratia Started on Zosyn in ED, continue Follow-up cultures Neutropenic sepsis 09/13/2019 09/16/2019 Last Assessment & Plan: BC negative. Urine culture result noted. Unable to determine if related to nephrostomy tube. Wait for final rec's from ID for discharge. Nephrostomy status 09/13/2019 05/22/2021 Last Assessment & Plan: Assessment/PLAN: Last changed on 09/15/2019, he has appointment on nephrostomy tube exchange Exchange vs removal pending CT scans with Dr Waterman Onheroomycsera 07/21/2017 05/22/2021 Pain in right foot 12/11/2016 12/11/2016 documented as of this encounter (statuses as of 02/23/2023) [facility]02-19-2023 History of Past illness Narrative* Problem Noted Date Resolved Date UTI (urinary tract infection) 12/14/2022 Hypomagnesemia 10/30/2019 11/01/2019 Last Assessment & Plan: Recent Labs 10/30/19 0615 10/29/19 0615 10/28/19 0600 BUN 13 11 9 CREAT 0.85 0.82 0.77 CA 9.4 9.3 8.9 MG 1.6* 1.7 -- Assessment: Continue supplementation PLAN: Adjustments per mag level Hyperglycemia 10/30/2019 11/01/2019 Elevated lactic acid level 10/26/201910/26 Last Assessment & Plan: Assessment/PLAN: Lactic acid elevated in ED, normalized with IV fluids Hold metformin for now Sepsis due to gram-negative UTI 10/25/2019 10/26/2019 Last Assessment & Plan: Assessment/PLAN: He presented to the ED with an episode of high-grade fever, has completed third cycle of chemotherapy for diffuse large B-cell lymphoma last week on 10/17/2019 Noted to have fever of 101 in ED, tachycardic, blood pressure normal Lactate elevated normalized with IV fluids Urinalysis revealed cloudy urine with elevated WBC, urine culture sent Blood culture sent from ED Nephrostomy tube changed on 09/15/2019 Previous urine culture grew Serratia Started on Zosyn in ED, continue Follow-up cultures Neutropenic sepsis 09/13/2019 09/16/2019 Last Assessment & Plan: BC negative. Urine culture result noted. Unable to determine if related to nephrostomy tube. Wait for final rec's from ID for discharge. Nephrostomy status 09/13/2019 05/22/2021 Last Assessment & Plan: Assessment/PLAN: Last changed on 09/15/2019, he has appointment on nephrostomy tube exchange Exchange vs removal pending CT scans with Dr Columba Uriarte 07/21/2017 05/22/2021 Pain in right foot 12/11/2016 12/11/2016 documented as of this encounter (statuses as of 02/27/2023) [facility]02-19-2023 History of Past illness Narrative* Problem Noted Date Resolved Date UTI (urinary tract infection) 12/14/2022 Hypomagnesemia 10/30/2019 11/01/2019 Last Assessment & Plan: Recent Labs 10/30/19 0615 10/29/19 0615 10/28/19 0600 BUN 13 11 9 CREAT 0.85 0.82 0.77 CA 9.4 9.3 8.9 MG 1.6* 1.7 -- Assessment: Continue supplementation PLAN: Adjustments per mag level Hyperglycemia 10/30/2019 11/01/2019 Elevated lactic acid level 10/26/201910/26 Last Assessment & Plan: Assessment/PLAN: Lactic acid elevated in ED, normalized with IV fluids Hold metformin for now Sepsis due to gram-negative UTI 10/25/2019 10/26/2019 Last Assessment & Plan: Assessment/PLAN: He presented to the ED with an episode of high-grade fever, has completed third cycle of chemotherapy for diffuse large B-cell lymphoma last week on 10/17/2019 Noted to have fever of 101 in ED, tachycardic, blood pressure normal Lactate elevated normalized with IV fluids Urinalysis revealed cloudy urine with elevated WBC, urine culture sent Blood culture sent from ED Nephrostomy tube changed on 09/15/2019 Previous urine culture grew Serratia Started on Zosyn in ED, continue Follow-up cultures Neutropenic sepsis 09/13/2019 09/16/2019 Last Assessment & Plan: BC negative. Urine culture result noted. Unable to determine if related to nephrostomy tube. Wait for final rec's from ID for discharge. Nephrostomy status 09/13/2019 05/22/2021 Last Assessment & Plan: Assessment/PLAN: Last changed on 09/15/2019, he has appointment on nephrostomy tube exchange Exchange vs removal pending CT scans with Dr Columba Uriarte 07/21/2017 05/22/2021 Pain in right foot 12/11/2016 12/11/2016 documented as of this encounter (statuses as of 03/01/2023) [facility]-19-2023 History of Past illness Narrative* Problem Noted Date Resolved Date UTI (urinary tract infection) 12/14/2022 Hypomagnesemia 10/30/2019 11/01/2019 Last Assessment & Plan: Recent Labs 10/30/19 0615 10/29/19 0615 10/28/19 0600 BUN 13 11 9 CREAT 0.85 0.82 0.77 CA 9.4 9.3 8.9 MG 1.6* 1.7 -- Assessment: Continue supplementation PLAN: Adjustments per mag level Hyperglycemia 10/30/2019 11/01/2019 Elevated lactic acid level 10/26/201910/26 Last Assessment & Plan: Assessment/PLAN: Lactic acid elevated in ED, normalized with IV fluids Hold metformin for now Sepsis due to gram-negative UTI 10/25/2019 10/26/2019 Last Assessment & Plan: Assessment/PLAN: He presented to the ED with an episode of high-grade fever, has completed third cycle of chemotherapy for diffuse large B-cell lymphoma last week on 10/17/2019 Noted to have fever of 101 in ED, tachycardic, blood pressure normal Lactate elevated normalized with IV fluids Urinalysis revealed cloudy urine with elevated WBC, urine culture sent Blood culture sent from ED Nephrostomy tube changed on 09/15/2019 Previous urine culture grew Serratia Started on Zosyn in ED, continue Follow-up cultures Neutropenic sepsis 09/13/2019 09/16/2019 Last Assessment & Plan: BC negative. Urine culture result noted. Unable to determine if related to nephrostomy tube. Wait for final rec's from ID for discharge. Nephrostomy status 09/13/2019 05/22/2021 Last Assessment & Plan: Assessment/PLAN: Last changed on 09/15/2019, he has appointment on nephrostomy tube exchange Exchange vs removal pending CT scans with Dr Columba Uriarte 07/21/2017 05/22/2021 Pain in right foot 12/11/2016 12/11/2016 documented as of this encounter (statuses as of 03/03/2023) [facility]-19-2023 History of Past illness Narrative* Problem Noted Date Resolved Date UTI (urinary tract infection) 12/14/2022 Hypomagnesemia 10/30/2019 11/01/2019 Last Assessment & Plan: Recent Labs 10/30/19 0615 10/29/19 0615 10/28/19 0600 BUN 13 11 9 CREAT 0.85 0.82 0.77 CA 9.4 9.3 8.9 MG 1.6* 1.7 -- Assessment: Continue supplementation PLAN: Adjustments per mag level Hyperglycemia 10/30/2019 11/01/2019 Elevated lactic acid level 10/26/201910/26 Last Assessment & Plan: Assessment/PLAN: Lactic acid elevated in ED, normalized with IV fluids Hold metformin for now Sepsis due to gram-negative UTI 10/25/2019 10/26/2019 Last Assessment & Plan: Assessment/PLAN: He presented to the ED with an episode of high-grade fever, has completed third cycle of chemotherapy for diffuse large B-cell lymphoma last week on 10/17/2019 Noted to have fever of 101 in ED, tachycardic, blood pressure normal Lactate elevated normalized with IV fluids Urinalysis revealed cloudy urine with elevated WBC, urine culture sent Blood culture sent from ED Nephrostomy tube changed on 09/15/2019 Previous urine culture grew Serratia Started on Zosyn in ED, continue Follow-up cultures Neutropenic sepsis 09/13/2019 09/16/2019 Last Assessment & Plan: BC negative. Urine culture result noted. Unable to determine if related to nephrostomy tube. Wait for final rec's from ID for discharge. Nephrostomy status 09/13/2019 05/22/2021 Last Assessment & Plan: Assessment/PLAN: Last changed on 09/15/2019, he has appointment on nephrostomy tube exchange Exchange vs removal pending CT scans with Dr Columba Rosaomycsera 07/21/2017 05/22/2021 Pain in right foot 12/11/2016 12/11/2016 documented as of this encounter (statuses as of 03/05/2023) [facility]19[facility]2023 History of Past illness Narrative* Problem Noted Date Resolved Date UTI (urinary tract infection) 12/14/2022 Hypomagnesemia 10/30/2019 11/01/2019 Last Assessment & Plan: Recent Labs 10/30/19 0615 10/29/19 0615 10/28/19 0600 BUN 13 11 9 CREAT 0.85 0.82 0.77 CA 9.4 9.3 8.9 MG 1.6* 1.7 -- Assessment: Continue supplementation PLAN: Adjustments per mag level Hyperglycemia 10/30/2019 11/01/2019 Elevated lactic acid level 10/26/201910/26 Last Assessment & Plan: Assessment/PLAN: Lactic acid elevated in ED, normalized with IV fluids Hold metformin for now Sepsis due to gram-negative UTI 10/25/2019 10/26/2019 Last Assessment & Plan: Assessment/PLAN: He presented to the ED with an episode of high-grade fever, has completed third cycle of chemotherapy for diffuse large B-cell lymphoma last week on 10/17/2019 Noted to have fever of 101 in ED, tachycardic, blood pressure normal Lactate elevated normalized with IV fluids Urinalysis revealed cloudy urine with elevated WBC, urine culture sent Blood culture sent from ED Nephrostomy tube changed on 09/15/2019 Previous urine culture grew Serratia Started on Zosyn in ED, continue Follow-up cultures Neutropenic sepsis 09/13/2019 09/16/2019 Last Assessment & Plan: BC negative. Urine culture result noted. Unable to determine if related to nephrostomy tube. Wait for final rec's from ID for discharge. Nephrostomy status 09/13/2019 05/22/2021 Last Assessment & Plan: Assessment/PLAN: Last changed on 09/15/2019, he has appointment on nephrostomy tube exchange Exchange vs removal pending CT scans with Dr Waterman Onychomycsera 07/21/2017 05/22/2021 Pain in right foot 12/11/2016 12/11/2016 documented as of this encounter (statuses as of 03/05/2023) [facility] History of Past illness Narrative* Problem Noted Date Resolved Date UTI (urinary tract infection) 12/14/2022 Hypomagnesemia 10/30/2019 11/01/2019 Last Assessment & Plan: Recent Labs 10/30/19 0615 10/29/19 0615 10/28/19 0600 BUN 13 11 9 CREAT 0.85 0.82 0.77 CA 9.4 9.3 8.9 MG 1.6* 1.7 -- Assessment: Continue supplementation PLAN: Adjustments per mag level Hyperglycemia 10/30/2019 11/01/2019 Elevated lactic acid level 10/26/201910/26 Last Assessment & Plan: Assessment/PLAN: Lactic acid elevated in ED, normalized with IV fluids Hold metformin for now Sepsis due to gram-negative UTI 10/25/2019 10/26/2019 Last Assessment & Plan: Assessment/PLAN: He presented to the ED with an episode of high-grade fever, has completed third cycle of chemotherapy for diffuse large B-cell lymphoma last week on 10/17/2019 Noted to have fever of 101 in ED, tachycardic, blood pressure normal Lactate elevated normalized with IV fluids Urinalysis revealed cloudy urine with elevated WBC, urine culture sent Blood culture sent from ED Nephrostomy tube changed on 09/15/2019 Previous urine culture grew Serratia Started on Zosyn in ED, continue Follow-up cultures Neutropenic sepsis 09/13/2019 09/16/2019 Last Assessment & Plan: BC negative. Urine culture result noted. Unable to determine if related to nephrostomy tube. Wait for final rec's from ID for discharge. Nephrostomy status 09/13/2019 05/22/2021 Last Assessment & Plan: Assessment/PLAN: Last changed on 09/15/2019, he has appointment on nephrostomy tube exchange Exchange vs removal pending CT scans with Dr Waterman Onheroomycosis 07/21/2017 05/22/2021 Pain in right foot 12/11/2016 12/11/2016 documented as of this encounter (statuses as of 03/24/2023) [facility] History of Past illness Narrative* Problem Noted Date Resolved Date UTI (urinary tract infection) 12/14/2022 Hypomagnesemia 10/30/2019 11/01/2019 Last Assessment & Plan: Recent Labs 10/30/19 0615 10/29/19 0615 10/28/19 0600 BUN 13 11 9 CREAT 0.85 0.82 0.77 CA 9.4 9.3 8.9 MG 1.6* 1.7 -- Assessment: Continue supplementation PLAN: Adjustments per mag level Hyperglycemia 10/30/2019 11/01/2019 Elevated lactic acid level 10/26/201910/26 Last Assessment & Plan: Assessment/PLAN: Lactic acid elevated in ED, normalized with IV fluids Hold metformin for now Sepsis due to gram-negative UTI 10/25/2019 10/26/2019 Last Assessment & Plan: Assessment/PLAN: He presented to the ED with an episode of high-grade fever, has completed third cycle of chemotherapy for diffuse large B-cell lymphoma last week on 10/17/2019 Noted to have fever of 101 in ED, tachycardic, blood pressure normal Lactate elevated normalized with IV fluids Urinalysis revealed cloudy urine with elevated WBC, urine culture sent Blood culture sent from ED Nephrostomy tube changed on 09/15/2019 Previous urine culture grew Serratia Started on Zosyn in ED, continue Follow-up cultures Neutropenic sepsis 09/13/2019 09/16/2019 Last Assessment & Plan: BC negative. Urine culture result noted. Unable to determine if related to nephrostomy tube. Wait for final rec's from ID for discharge. Nephrostomy status 09/13/2019 05/22/2021 Last Assessment & Plan: Assessment/PLAN: Last changed on 09/15/2019, he has appointment on nephrostomy tube exchange Exchange vs removal pending CT scans with Dr Columba Uriarte 07/21/2017 05/22/2021 Pain in right foot 12/11/2016 12/11/2016 documented as of this encounter (statuses as of 03/27/2023) [facility] History of Past illness Narrative* Problem Noted Date Resolved Date UTI (urinary tract infection) 12/14/2022 Hypomagnesemia 10/30/2019 11/01/2019 Last Assessment & Plan: Recent Labs 10/30/19 0615 10/29/19 0615 10/28/19 0600 BUN 13 11 9 CREAT 0.85 0.82 0.77 CA 9.4 9.3 8.9 MG 1.6* 1.7 -- Assessment: Continue supplementation PLAN: Adjustments per mag level Hyperglycemia 10/30/2019 11/01/2019 Elevated lactic acid level 10/26/201910/26 Last Assessment & Plan: Assessment/PLAN: Lactic acid elevated in ED, normalized with IV fluids Hold metformin for now Sepsis due to gram-negative UTI 10/25/2019 10/26/2019 Last Assessment & Plan: Assessment/PLAN: He presented to the ED with an episode of high-grade fever, has completed third cycle of chemotherapy for diffuse large B-cell lymphoma last week on 10/17/2019 Noted to have fever of 101 in ED, tachycardic, blood pressure normal Lactate elevated normalized with IV fluids Urinalysis revealed cloudy urine with elevated WBC, urine culture sent Blood culture sent from ED Nephrostomy tube changed on 09/15/2019 Previous urine culture grew Serratia Started on Zosyn in ED, continue Follow-up cultures Neutropenic sepsis 09/13/2019 09/16/2019 Last Assessment & Plan: BC negative. Urine culture result noted. Unable to determine if related to nephrostomy tube. Wait for final rec's from ID for discharge. Nephrostomy status 09/13/2019 05/22/2021 Last Assessment & Plan: Assessment/PLAN: Last changed on 09/15/2019, he has appointment on nephrostomy tube exchange Exchange vs removal pending CT scans with Dr Waterman Onychomycosis 07/21/2017 05/22/2021 Pain in right foot 12/11/2016 12/11/2016 documented as of this encounter (statuses as of 03/31/2023) [facility]02-19-2023 History of Past illness Narrative* Problem Noted Date Resolved Date UTI (urinary tract infection) 12/14/2022 Hypomagnesemia 10/30/2019 11/01/2019 Last Assessment & Plan: Recent Labs 10/30/19 0615 10/29/19 0615 10/28/19 0600 BUN 13 11 9 CREAT 0.85 0.82 0.77 CA 9.4 9.3 8.9 MG 1.6* 1.7 -- Assessment: Continue supplementation PLAN: Adjustments per mag level Hyperglycemia 10/30/2019 11/01/2019 Elevated lactic acid level 10/26/201910/26 Last Assessment & Plan: Assessment/PLAN: Lactic acid elevated in ED, normalized with IV fluids Hold metformin for now Sepsis due to gram-negative UTI 10/25/2019 10/26/2019 Last Assessment & Plan: Assessment/PLAN: He presented to the ED with an episode of high-grade fever, has completed third cycle of chemotherapy for diffuse large B-cell lymphoma last week on 10/17/2019 Noted to have fever of 101 in ED, tachycardic, blood pressure normal Lactate elevated normalized with IV fluids Urinalysis revealed cloudy urine with elevated WBC, urine culture sent Blood culture sent from ED Nephrostomy tube changed on 09/15/2019 Previous urine culture grew Serratia Started on Zosyn in ED, continue Follow-up cultures Neutropenic sepsis 09/13/2019 09/16/2019 Last Assessment & Plan: BC negative. Urine culture result noted. Unable to determine if related to nephrostomy tube. Wait for final rec's from ID for discharge. Nephrostomy status 09/13/2019 05/22/2021 Last Assessment & Plan: Assessment/PLAN: Last changed on 09/15/2019, he has appointment on nephrostomy tube exchange Exchange vs removal pending CT scans with Dr Columba Uriarte 07/21/2017 05/22/2021 Pain in right foot 12/11/2016 12/11/2016 documented as of this encounter (statuses as of 03/31/2023) [facility]02-19-2023 History of Past illness Narrative* Problem Noted Date Resolved Date UTI (urinary tract infection) 12/14/2022 Hypomagnesemia 10/30/2019 11/01/2019 Last Assessment & Plan: Recent Labs 10/30/19 0615 10/29/19 0615 10/28/19 0600 BUN 13 11 9 CREAT 0.85 0.82 0.77 CA 9.4 9.3 8.9 MG 1.6* 1.7 -- Assessment: Continue supplementation PLAN: Adjustments per mag level Hyperglycemia 10/30/2019 11/01/2019 Elevated lactic acid level 10/26/201910/26 Last Assessment & Plan: Assessment/PLAN: Lactic acid elevated in ED, normalized with IV fluids Hold metformin for now Sepsis due to gram-negative UTI 10/25/2019 10/26/2019 Last Assessment & Plan: Assessment/PLAN: He presented to the ED with an episode of high-grade fever, has completed third cycle of chemotherapy for diffuse large B-cell lymphoma last week on 10/17/2019 Noted to have fever of 101 in ED, tachycardic, blood pressure normal Lactate elevated normalized with IV fluids Urinalysis revealed cloudy urine with elevated WBC, urine culture sent Blood culture sent from ED Nephrostomy tube changed on 09/15/2019 Previous urine culture grew Serratia Started on Zosyn in ED, continue Follow-up cultures Neutropenic sepsis 09/13/2019 09/16/2019 Last Assessment & Plan: BC negative. Urine culture result noted. Unable to determine if related to nephrostomy tube. Wait for final rec's from ID for discharge. Nephrostomy status 09/13/2019 05/22/2021 Last Assessment & Plan: Assessment/PLAN: Last changed on 09/15/2019, he has appointment on nephrostomy tube exchange Exchange vs removal pending CT scans with Dr Columba Uriarte 07/21/2017 05/22/2021 Pain in right foot 12/11/2016 12/11/2016 documented as of this encounter (statuses as of 04/15/2023) [facility]02-19-2023 History of Past illness Narrative* Problem Noted Date Resolved Date UTI (urinary tract infection) 12/14/2022 Hypomagnesemia 10/30/2019 11/01/2019 Last Assessment & Plan: Recent Labs 10/30/19 0615 10/29/19 0615 10/28/19 0600 BUN 13 11 9 CREAT 0.85 0.82 0.77 CA 9.4 9.3 8.9 MG 1.6* 1.7 -- Assessment: Continue supplementation PLAN: Adjustments per mag level Hyperglycemia 10/30/2019 11/01/2019 Elevated lactic acid level 10/26/201910/26 Last Assessment & Plan: Assessment/PLAN: Lactic acid elevated in ED, normalized with IV fluids Hold metformin for now Sepsis due to gram-negative UTI 10/25/2019 10/26/2019 Last Assessment & Plan: Assessment/PLAN: He presented to the ED with an episode of high-grade fever, has completed third cycle of chemotherapy for diffuse large B-cell lymphoma last week on 10/17/2019 Noted to have fever of 101 in ED, tachycardic, blood pressure normal Lactate elevated normalized with IV fluids Urinalysis revealed cloudy urine with elevated WBC, urine culture sent Blood culture sent from ED Nephrostomy tube changed on 09/15/2019 Previous urine culture grew Serratia Started on Zosyn in ED, continue Follow-up cultures Neutropenic sepsis 09/13/2019 09/16/2019 Last Assessment & Plan: BC negative. Urine culture result noted. Unable to determine if related to nephrostomy tube. Wait for final rec's from ID for discharge. Nephrostomy status 09/13/2019 05/22/2021 Last Assessment & Plan: Assessment/PLAN: Last changed on 09/15/2019, he has appointment on nephrostomy tube exchange Exchange vs removal pending CT scans with Dr Columba Uriarte 07/21/2017 05/22/2021 Pain in right foot 12/11/2016 12/11/2016 documented as of this encounter (statuses as of 04/16/2023) [facility]-19-2023 History of Past illness Narrative* Problem Noted Date Resolved Date UTI (urinary tract infection) 12/14/2022 Hypomagnesemia 10/30/2019 11/01/2019 Last Assessment & Plan: Recent Labs 10/30/19 0615 10/29/19 0615 10/28/19 0600 BUN 13 11 9 CREAT 0.85 0.82 0.77 CA 9.4 9.3 8.9 MG 1.6* 1.7 -- Assessment: Continue supplementation PLAN: Adjustments per mag level Hyperglycemia 10/30/2019 11/01/2019 Elevated lactic acid level 10/26/201910/26 Last Assessment & Plan: Assessment/PLAN: Lactic acid elevated in ED, normalized with IV fluids Hold metformin for now Sepsis due to gram-negative UTI 10/25/2019 10/26/2019 Last Assessment & Plan: Assessment/PLAN: He presented to the ED with an episode of high-grade fever, has completed third cycle of chemotherapy for diffuse large B-cell lymphoma last week on 10/17/2019 Noted to have fever of 101 in ED, tachycardic, blood pressure normal Lactate elevated normalized with IV fluids Urinalysis revealed cloudy urine with elevated WBC, urine culture sent Blood culture sent from ED Nephrostomy tube changed on 09/15/2019 Previous urine culture grew Serratia Started on Zosyn in ED, continue Follow-up cultures Neutropenic sepsis 09/13/2019 09/16/2019 Last Assessment & Plan: BC negative. Urine culture result noted. Unable to determine if related to nephrostomy tube. Wait for final rec's from ID for discharge. Nephrostomy status 09/13/2019 05/22/2021 Last Assessment & Plan: Assessment/PLAN: Last changed on 09/15/2019, he has appointment on nephrostomy tube exchange Exchange vs removal pending CT scans with Dr Columba Uriarte 07/21/2017 05/22/2021 Pain in right foot 12/11/2016 12/11/2016 documented as of this encounter (statuses as of 04/21/2023) [facility]-19-2023 History of Past illness Narrative* Problem Noted Date Resolved Date UTI (urinary tract infection) 12/14/2022 Hypomagnesemia 10/30/2019 11/01/2019 Last Assessment & Plan: Recent Labs 10/30/19 0615 10/29/19 0615 10/28/19 0600 BUN 13 11 9 CREAT 0.85 0.82 0.77 CA 9.4 9.3 8.9 MG 1.6* 1.7 -- Assessment: Continue supplementation PLAN: Adjustments per mag level Hyperglycemia 10/30/2019 11/01/2019 Elevated lactic acid level 10/26/201910/26 Last Assessment & Plan: Assessment/PLAN: Lactic acid elevated in ED, normalized with IV fluids Hold metformin for now Sepsis due to gram-negative UTI 10/25/2019 10/26/2019 Last Assessment & Plan: Assessment/PLAN: He presented to the ED with an episode of high-grade fever, has completed third cycle of chemotherapy for diffuse large B-cell lymphoma last week on 10/17/2019 Noted to have fever of 101 in ED, tachycardic, blood pressure normal Lactate elevated normalized with IV fluids Urinalysis revealed cloudy urine with elevated WBC, urine culture sent Blood culture sent from ED Nephrostomy tube changed on 09/15/2019 Previous urine culture grew Serratia Started on Zosyn in ED, continue Follow-up cultures Neutropenic sepsis 09/13/2019 09/16/2019 Last Assessment & Plan: BC negative. Urine culture result noted. Unable to determine if related to nephrostomy tube. Wait for final rec's from ID for discharge. Nephrostomy status 09/13/2019 05/22/2021 Last Assessment & Plan: Assessment/PLAN: Last changed on 09/15/2019, he has appointment on nephrostomy tube exchange Exchange vs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 fever, malaise/fatigue and weight loss. HENT: Negative for ear pain and hearing loss. Eyes: Negative for blurred vision and double vision. Respiratory: Negative for cough and shortness of breath. Cardiovascular: Negative for chest pain, palpitations and leg swelling. Gastrointestinal: Negative for constipation, diarrhea and heartburn. Genitourinary: Positive for frequency and urgency. Negative for dysuria. Incontinence, ED Musculoskeletal: Negative for back pain, falls, joint pain and myalgias. Skin: Negative for itching and rash. Neurological: Negative for dizziness, weakness and headaches. Endo/Heme/Allergies: Does not bruise/bleed easily. Psychiatric/Behavioral: Negative for depression and substance abuse. The patient does not have insomnia. Objective BP 114/66 Pulse 84 Temp 36.8 C (98.3 F) Resp 18 Ht 180.3 cm (5' 11) Wt 131.9 kg (290 lb 12.8 oz) SpO2 97% BMI 40.56 kg/m Physical Exam Constitutional: Appearance: Normal appearance. He is obese. HENT: Head: Normocephalic and atraumatic. Nose: Nose normal. Mouth/Throat: Mouth: Mucous membranes are moist. Dentition: Normal dentition. Eyes: General: Lids are normal. Extraocular Movements: Extraocular movements intact. Conjunctiva/sclera: Conjunctivae normal. Pupils: Pupils are equal, round, and reactive to light. Neck: Thyroid: No thyroid mass or thyromegaly. Vascular: No carotid bruit. Trachea: Phonation normal. Cardiovascular: Rate and Rhythm: Normal rate and regular rhythm. Heart sounds: Normal heart sounds. No murmur heard. No friction rub. No gallop. Pulmonary: Effort: Pulmonary effort is normal. Breath sounds: Normal breath sounds. No wheezing or rales. Abdominal: General: Bowel sounds are normal. There is no distension. Palpations: Abdomen is soft. There is no mass. Tenderness: There is no abdominal tenderness. Musculoskeletal: General: No swelling or tenderness. Normal range of motion. Cervical back: Normal range of motion and neck supple. No edema. Lymphadenopathy: Cervical: No cervical adenopathy. Skin: General: Skin is warm and dry. Findings: No erythema or rash. Nails: There is no clubbing. Neurological: Mental Status: He is alert and oriented to person, place, and time. Cranial Nerves: No cranial nerve deficit. Motor: Motor function is intact. Coordination: Coordination normal. Gait: Gait is intact. Psychiatric: Attention and Perception: Attention normal. Mood and Affect: Mood and affect normal. Speech: Speech normal. Behavior: Behavior normal. Behavior is cooperative. Thought Content: Thought content normal. Cognition and Memory: Cognition and memory normal. Judgment: Judgment normal. Component Value Date HBA1C 8.0 11/21/2022 HBA1C 9.7 08/15/2022 HBA1C 9.4 05/02/2022 HBA1C 10.2 10/26/2019 HBA1C 9.7 07/02/2019 HBA1C 10.7 04/19/2018 ASSESSMENT/PLAN: 1. Type 2 diabetes mellitus with diabetic polyneuropathy, with long-term current use of insulin ([facility]) - ICD9: 250.60, 357.2, V58.67, ICD10: E11.42, Z79.4 (primary diagnosis) A1c is improved, but not at target Increase januvia to 100 mg from 50 mg and return in 3 months - HEMOGLOBIN A1C (POC) - SITAGLIPTIN PHOSPHATE 100 MG TABLET 2. Frequent urination - ICD9: 788.41, ICD10: R35.0 Pt plans to call his urologist, Dr. Gonzalez - UA DIP, URINE (POC) - URINE CULTURE 3. Acute cystitis with hematuria - ICD9: 595.0, ICD10: N30.01 - CIPROFLOXACIN 500 MG TABLET bid x 14 days Pt will f/u with Dr. Gonzalez, urologist 4. Hypertension, essential - ICD9: 401.9, ICD10: I10 Pt has had episodes of low blood pressure Decrease metoprolol from 50 mg bid to 37.5 bid Continue lisinopril 10 mg daily 5. Hyperlipidemia, mixed - ICD9: 272.2, ICD10: E78.2 Pt would like to stay off crestor and have lipid panel He is willing to restart crestor if needed - LIPID PANEL BASIC 6. ED (erectile dysfunction) of organic origin - ICD9: 607.84, ICD10: N52.9 Pt is taking maximum dosage of sildanefil (100 mg) He will f/u with Dr. Gonzalez, urologist, to discuss 7. Neuropathy involving both lower extremities - ICD9: 356.9, ICD10: G57.93 Increase gabapentin from 300 mg tid to 600 mg tid - GABAPENTIN 600 MG TABLET 8. Tachycardia - ICD9: 785.0, ICD10: R00.0 Pt has been having episodes of low blood pressure Decrease metoprolol from 50 mg bid to 37.5 mg bid - METOPROLOL TARTRATE 37.5 MG TABLET 9. Urge incontinence of urine - ICD9: 788.31, ICD10: N39.41 UA shows UTI Pt will f/u with urologist to discuss 10. 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 Criss Devi MA * Telephone Encounter - Najma Bloom DO - 10/28/2022 5:09 PM EST Letter in my folder Najma Bloom DO * Telephone Encounter - Cordelia Floyd MA - 10/28/2022 2:36 PM EST Patient lm on vm stating it is time to have another letter stating he needs to park in the fence area at work. He states the fax number are in his chart. Please fax them to both numbers. Cordelia Floyd MA documented in this encounterWadsworth-Rittman [facility]12-12-2022 Miscellaneous Notes* Telephone Encounter - Sonia Coffey MA - 10/06/2022 8:10 AM EST Pharmacy requesting refills as follows: Last Office Visit 08/15/22. Last Refill 07/01/22 gabapentin, 05/02/22 rosuvastatin, . Requested Prescriptions Pending Prescriptions Disp Refills potassium chloride ER (KLOR-CON M20) 20 mEq tablet 180 tablet 3 Sig: Take 1 tablet by mouth twice daily. metFORMIN (GLUCOPHAGE) 1,000 mg tablet 180 tablet 3 Sig: Take 1 tablet by mouth twice daily. rosuvastatin (CRESTOR) 40 mg tablet 90 tablet 1 Sig: Take 1 tablet by mouth once daily. gabapentin (NEURONTIN) 300 mg capsule 270 capsule 0 Sig: Take 1 capsule by mouth three times daily for 90 days. Please review and advise. Sonia Coffey MA documented in this encounterWadsworth-[facility]ittman [facility]11-11-2022 Miscellaneous Notes* Telephone Encounter - Cordelia Floyd MA - 09/05/2022 7:29 AM EST Pharm requesting refills: Last office visit 08/15/2022. Last refill 09/10/2021 nov 11/21/2022 Requested Prescriptions Pending Prescriptions Disp Refills glimepiride (AMARYL) 2 mg tablet [Pharmacy Med Name: GLIMEPIRIDE TABS 2MG] 270 tablet 3 Sig: TAKE 3 TABLETS ONCE DAILY Please review and advise. Cordelia Floyd MA documented in this encounterWadsworth-Rittman [facility]10-27-2022 History of Present illness Narrative* Martell Waterman MD - 08/21/2022 6:00 PM EDT Part of this note is carried forward from note dictated: 07/17/22. It is appropriately updated. The patient is a 55-year-old male with a diagnosis of diffuse large B-cell lymphoma. Presented withleft-sided flank pain and hydronephrosis. Left-sided pelvic mass 5 cm in size with obstruction to the distal ureter. The patient had a percutaneous nephrostomy put in. Biopsy showed changes consistent with diffuse large B-cell lymphoma. Bone marrow was negative. PET scan showed a small right commoniliac lymph node, multiple smaller hypermetabolic left paraaortic lymph nodes, in addition to the uptake in the large pelvic mass. The patient was given 6 cycles of Rituxan-CHOP chemotherapy. PET scan after the completion of chemotherapy showed persistent uptake at the site of dominant disease. This had now shrunk down 3 x 2.6 cm in size, but the SUV value was consistent with 13.3. There was decrease in the size of the rest of the lymph nodes, had significantly shrunk down. The patient appeared to have resistant refractory disease with the area of active disease at the site of dominant left pelvic mass. We discussed the options with the patient. We discussed chemotherapy with an intention to take him for transplant versus radiation to the area of active disease and observation. Delay transplant if he indeed progresses. On re-review of the PET, it appeared that the patient had a right-sided area of uptake in the medial aspect of the groin. Patient was complaining of tenderness in this area. On review of the PET, this area appeared to be PET avid. We were concerned about this being another area of viable disease and subjected him to a biopsy. Multiple cores were obtained from this. The pathology shows no evidence of any viable tumor. Fibroadipose tissue with acute and chronic inflammatory changes identified. After discussion with the patient and the radiation oncologist the decision was made to give the patient involved field radiation. He was given 54 Gy in 27 fractions between 01/13/2020 and 03/12/2020. The patient had the left ureteric stent removed. At the same time he also had a biopsy from the right inguinal nodule. The pathology reviewed. This was basically a benign changes consistent with chronic inflammation. Because of the PET scan showing PET-avid lymphadenopathy in left periaortic retroperitoneal chain measuring 2.8 x 2.6 with a SUV value of 3.4 [previous was 2.0 x 1.9 SUV value of 2.5], we decided to biopsy. On 09/11/20 biopsy showed benign lymphoid tissue with fibrofatty changes. His recent blood work is shown progressive decline in the hemoglobin down to about 9.9 along with adrop of MCV down to 74. FOBT negative from 08/2020. Patient had an upper and lower GI endoscopy dated 12/12/2020. One 10 mm polyp in the ascending colonand one 8 mm polyp in the ascending colon. A few gastric polyps removed. Colon polyp biopsy positive for tubular adenoma. Gastric polyps biopsy showing a hyperplastic-type polyp, negative for dysplasia. The patient underwent a laparoscopic-assisted left ureteral reimplant with psoas hitch and left ureteral stent placement. The stents were recently removed on 04/05/2021. Comes in post imaging. CAT scans from 04/03/2021 shows the left ureteral reimplantation with a psoas hitch, placement of a left double-J stent with improvement of the hydronephrosis. Decrease in the size of the left para-aortic lymph node. No other area of lymphadenopathy to suggest viable disease. Lymph nodes on CAT scan as follows: Lymph nodes: 1.0 x 2.1 cm LEFT para-aortic node adjacent to the just distal to the LEFT renal vasculature (3:64), previously 1.0 x 2.6 cm. Adjacent 1.1 x 2.5 cm node posteriorly (3:62), previously 1.5 x 2.8 cm. 1.1 x 1.4 cm node more superiorly (3:56), previously 1.9 x 1.2 cm. These demonstrated uptake on prior PET/CT, however biopsy of one of these nodes was negative. No new or enlarging abdominal or pelvic lymph nodes. The patient was diagnosed with Covid. This was as per the test. 05/14/2021. Patient had symptoms of cough and fever. His also had Covid. CT scan dated 10/07/2021:: CT scan of the chest abdomen pelvis dated 10/07/2021 shows no evidence of any mediastinal lymphadenopathy. Bibasilar airspace disease suggestive of atelectasis noted. The left aortic lymph node again essentially stable though on measurements appears to be minimally more prominent. No other lymphadenopathy identified. Near complete resolution of previously described ill-defined soft tissue density adjacent to the distal left ureter where the primary was. CT scan of the chest abdomen pelvis was performed on 04/25/2022. No evidence of any intrathoracic or mediastinal disease. CT scan of the abdomen and pelvis showed again left periaortic lymphs that had slightly shrunk in size. However of concern was a new cystic mass posterior to the bladder measuring5 x 5.3 cm in size. There was no evidence of any pelvic lymphadenopathy. There was unchanged thickening in the wall of the bladder noted. Because of the presence of the abnormality noted in the pelvis behind the bladder I was concerned about recurrence of disease and hence a PET scan was ordered. PET scan dated 05/14/2022 reviewed. Presence of a hypermetabolic pelvic mass. Measuring 5 x 4.3 cm in size with an SUV value of 10.8. Presence of few bhk-UIP-mlex retroperitoneal and left para-aortic lymph nodes which are more or less stable in size. A biopsy from this mass was performed. Biopsy dated 05/23/2022 showed fibroinflammatory proliferation without any evidence of malignant lymphoma. However the pathologist could not rule out a soft tissue sarcoma and a diagnosis of a dedifferentiated liposarcoma could not be excluded. The patient has increased frequency of urination. Denies any hematuria. We proceeded with a MRI of the pelvis. He was also seen by urology and surgical oncology. The MRI of the pelvis showed the lesion involving the inferior right bladder with new areas of extension along the right rectum involving the right pubococcygeus muscle. This was felt to be perhaps inflammatory in nature. Also focal area of asymmetry involving the left superior bladder with enhancement felt to be fibrosis versus scarring versus possible bladder neoplasm The patient completed a 2-week course of antibiotics with oral Cipro. Repeat CAT scan of the pelvis has shown complete resolution of the cystic lesion as described above. This well would have been a abscess. At this time patient has no evidence of relapse of his lymphoma. See him back again post imaging in 6 months. Martell Waterman MD documented in this encounterWadsworth-[facility]ittman [facility]10-27-2022 History of Present illness Narrative* Cheyanne Farah, - 08/21/2022 1:01 PM EDT Images from the original note were not included. [facility] [place] [facility] LOCATION: [address] [place] [address] ESTABLISHED PATIENT PATIENT INFO: Yamilka Sharma 56 year old Chief Complaint: HPI Here after CT. NO pain. 1-Duration: 2021 2-Location: bladder 3-Severity: N/A 4-Quality: Not applicable 5-Context: N/A 6-Timing: N/A 7-Modifying factors: No treatment prior to referral 8-Associated signs & symptoms: no additional symptoms No question data found. PATHOLOGY: NONE LAB: WBC (k/uL) Date Value 04/25/2022 9.92 RBC (m/uL) Date Value 04/25/2022 4.35 Hemoglobin (g/dL) Date Value 04/25/2022 11.5 (L) Hematocrit (%) Date Value 04/25/2022 35.0 (L) MCV (fL) Date Value 04/25/2022 80.5 MCH (pg) Date Value 04/25/2022 26.4 MCHC (g/dL) Date Value 04/25/2022 32.9 RDW-CV (%) Date Value 04/25/2022 13.2 Platelet Count (k/uL) Date Value 04/25/2022 174 MPV (fL) Date Value 04/25/2022 10.9 Neut% (%) Date Value 04/25/2022 71.9 Lymph% (%) Date Value 04/25/2022 16.3 [place]% (%) Date Value 04/25/2022 7.5 Eosin% (%) Date Value 10/31/2021 6.3 Baso% (%) Date Value 04/25/2022 0.3 Abs Neut (k/uL) Date Value 04/25/2022 7.13 Abs Lymphs (Manual Diff) (k/uL) Date Value 05/14/2021 0.72 (L) Abs [place] (k/uL) Date Value 04/25/2022 0.74 Abs Eosin (k/uL) Date Value 04/25/2022 0.36 Abs Baso (k/uL) Date Value 04/25/2022 0.03 Creatinine Date Value Ref Range Status 08/15/2022 1.57 (H) 0.73 - 1.22 mg/dL Final 04/25/2022 1.54 (H) 0.73 - 1.22 mg/dL Final 01/29/2022 1.67 (H) 0.73 - 1.22 mg/dL Final 10/31/2021 1.45 (H) 0.73 - 1.22 mg/dL Final PSA Screening (ng/mL) Date Value 01/29/2022 0.41 02/01/2019 0.2 02/26/2018 0.2 07/30/2016 0.2 04/17/2014 0.3 URINE POC GLUCOSE UA (POCT) >=1000 12/25/2020 BILIRUBIN UA (POCT) Negative 12/25/2020 KETONE UA (POCT) Negative 12/25/2020 SPECIFIC GRAVITY UA (POCT) 1.025 12/25/2020 HEMOGLOBIN/BLOOD UA (POCT) Small 12/25/2020 PH UA (POCT) 5.5 12/25/2020 PROTEIN UA (POCT) >=300 12/25/2020 UROBILINOGEN UA (POCT) 0.2 12/25/2020 NITRITE UA (POCT) Negative 12/25/2020 LEUKOCYTES UA (POCT) Small 12/25/2020 COLOR UA (POCT) Yellow 12/25/2020 CLARITY UA (POCT) Slightly Cloudy 12/25/2020 IMAGING: MRI: MRI PELVIS WO/W IVCON (Order [id number]) Patient Info Patient Name Sex Yamilka Franco ([id number]) Male 1965 07/07/2022 4:02 PM - Radiology, [place] In Impression IMPRESSION: Lesion involving the inferior right bladder with new lesions extending along the right rectum and involving the right pubococcygeus muscle which are likely infectious or inflammatory in nature and related to the prostate or seminal vesicles. Possibly of small abscesses should be considered. Focal area of asymmetry involving the left superior bladder with associated enhancement which may represent fibrosis or scarring from prior surgery versus developing neoplasm. Correlation with patient history, urine laboratory exams, and if indicated additional evaluation with cystoscopy may be helpful. Focal mural thickening involving the rectum related to contraction versus inflammatory change versus developing neoplasm. Direct visualization is recommended. I have independently reviewed films and my findings are the same. ALLERGIES: ALLERGIES Allergen Reactions Aspartame Other: See Comments Severe headache Bactrim [Sulfametho* Hives, Other: See Comments Reaction: gas Sensitivity: Intolerance. Sensitivity: Intolerance Biaxin [Clarithromy* Unknown Indigestion/gas Influenza Vaccine T* Unknown Flu Monosodium Glutamat* Other: See Comments Severe headache Pantoprazole Diarrhea Sulfa (Sulfonamide * Rash, Hives Clindamycin Hcl Diarrhea, GI Upset, Vomiting Reaction: Nausea/vomiting/diarrhea Other Reaction: stomach cramps Sensitivity: Intolerance MEDICATIONS: sildenafil (REVATIO) 20 mg tablet Take 3-5 tablets by mouth once daily as needed. SITagliptin (JANUVIA) 50 mg tablet Take 1 tablet by mouth once daily. albuterol HFA (PROVENTIL HFA, VENTOLIN HFA) 90 mcg/actuation inhaler USE 2 INHALATIONS INSTRUCTED EVERY 4 HOURS NEEDED FOR WHEEZING/SHORTNESS OF BREATH gabapentin (NEURONTIN) 300 mg capsule Take 1 capsule by mouth three times daily for 90 days. rosuvastatin (CRESTOR) 40 mg tablet Take 1 tablet by mouth once daily. lidocaine-prilocaine (EMLA) 2.5-2.5 % cream APPLY TO AFFECTED AREA NEEDED PRIOR TO CHEMOTHERAPY metFORMIN (GLUCOPHAGE) 1,000 mg tablet TAKE 1 TABLET TWICE A DAY ibuprofen (MOTRIN) 200 mg tablet Take 200 mg by mouth every 6 hours as needed. KLOR-CON M20 20 mEq tablet TAKE 1 TABLET TWICE A DAY furosemide (LASIX) 40 mg tablet TAKE 1 TABLET TWICE A DAY lisinopril (ZESTRIL, PRINIVIL) 10 mg tablet TAKE 1 TABLET DAILY glimepiride (AMARYL) 2 mg tablet Take 3 tablets by mouth once daily. blood sugar diagnostic ([employer] VERIO TEST STRIPS) test strip 1 Strip before meals and at bedtime.Use as instructed Blood-Glucose Meter 1 Each three times daily. Please match the test strips and lancets Insulin Alzada, Disposable, (BD ULTRA-FINE PAULA PEN NEEDLE) 32 gauge x 5/32 Inject 1 Each subcutaneously four times daily as needed. ondansetron (ZOFRAN) 4 mg tablet Take 1 tablet by mouth every 8 hours as needed for Nausea/Vomiting. acetaminophen (TYLENOL EXTRA STRENGTH ORAL) Take 1,000 mg by mouth three times daily. blood sugar diagnostic (ONETOUCH ULTRA TEST) test strip 1 Strip four times daily. E11.9 polyethylene glycol 3350 (MIRALAX, GLYCOLAX) 17 gram packet Take 1 Packet by mouth once daily. (Patient taking differently: Take 17 g by mouth as needed.) aspirin 81 mg chewable tablet Take 81 mg by mouth once daily. metoprolol tartrate, short acting, (LOPRESSOR) 50 mg tablet TAKE 1 TABLET TWICE A DAY Does the patient take any herbal medications?: No HISTORIES PAST MEDICAL HISTORY Diagnosis Date Acute exacerbation of chronic obstructive airways disease (HCC) Rx for augmentin, symptomatic care as needed. Patient denies COPD, asthma, uses an inhaler PRN usually about once a year with hot weather Anemia Depression Diffuse large B cell lymphoma (HCC) 07/14/2019 Encounter for screening for malignant neoplasm of prostate Essential hypertension continue Lisinopril Hydronephrosis Hydronephrosis with ureteral stricture Hypomagnesemia 10/30/2019 DEISI (obstructive sleep apnea) mild and no CPAP Sepsis due to gram-negative UTI (HCC) 10/25/2019 Type 2 diabetes mellitus (HCC) continue current meds Ureteral obstruction, left Urinary tract infection Smoking Status Reviewed: Yes REVIEW OF SYSTEMS GENERAL: No fever, chills, weight loss, or fatigue. HEAD & NECK: No blurred vision or Sjogren's syndrome CARDIOVASCULAR: NO CHEST PAIN, PALPITATIONS, ANKLE EDEMA RESPIRATORY: No chronic cough, wheezing, dyspnea, hemoptysis. MUSCULOSKELETAL: NO CHRONIC BACK PAIN, ARTHRITIS, CHRONIC NECK PAIN SKIN: NO VARICOSE VEINS, RASH, ABNORMAL ITCHING BLOOD/LYMPHATIC: No easy bleeding, easy bruising, transfusion Hx NEUROLOGICAL: NO HEADACHES, NUMBNESS, SEIZURES, STROKE PSYCHIATRIC: No depression or inordinate anxiety The remainder of the ROS was negative. PHYSICAL EXAMINATION Ht 180.3 cm (5' 11) Wt 131.1 kg (289 lb) BMI 40.31 kg/m General appearance: Well appearing, alert, in no acute distress, and well- hydrated, well nourished Skin: Skin color, texture, turgor normal, no suspicious rashes or lesions Head: Normocephalic, no masses, lesions, tenderness or abnormalities Abdomen: Normal abdominal exam, Abdomen soft, non-tender. Bowel sounds normal. No masses, organomegaly Genitourinary: MALE EXAM: Exam NOT Indicated PVR: NA IMPRESSION/PLAN: S/P left ureteral reimplantation Lymphoma. Now with fluid vs infectious etiology behind the bladder. Biopsy negative. Options reviewed. He will have antibiotics trial with Cipro X [address] scan after antibiotics completed with complete resolution. I spent 30 minutes in the visit, with more than 50% of the total [id number] time of the visit in counseling / coordination of care. Cheyanne Farah DO MBA documented in this encounterWadsworth-Rittman [facility]10-21-2022 History of Present illness Narrative* RT Alex(Estelita) - 08/15/2022 3:00 PM EDT Radiology Service Progress Note PATIENT NAME: Yamilka Sharma DATE OF SERVICE: August 15, 2022 TIME: 3:22 PM PATIENT IDENTITY VERIFICATION COMPLETED USING TWO (2) IDENTIFIERS: Name and Date of confirmedby patient verbally. FALL SCREENING: Has the patient had 2 falls in the last year or 1 fall with injury or currently using an Ambulatory Assistive Device (Walker, Cane, Wheelchair, Crutches, etc.)? No PATIENT GENDER DATA: Male PATIENT RELEVANT IMPLANT DATA REVIEWED: Yes RADIOLOGY DEPARTMENT: CT; Exam(s) Completed: Pelvis PERIPHERAL IV DATA: power port accessed by [employer] SIGNED BY: RT Tae(Estelita) August 15, 2022 3:22 PM documented in this encounterWadsworth-Rittman [facility]10-20-2022 Miscellaneous Notes* Telephone Encounter - Lissy Oliveros - 08/14/2022 11:45 AM EDT Patient scheduled for Nurse Port Visit 1st attempt: LM and sent MC When pt returns call please inform them of nurse visit for port access for CT Once done document in encounter. Thank you! Lissy Oliveros * Telephone Encounter - JATIN Casper - 08/14/2022 11:07 AM EDT Pt would like to use port for appt on 08/15/22 @ 2 for prep and [address] Please call pt to let pt know what time to come in. documented in this encounterWadsworth-Rittman Hospital10-17-2022 Miscellaneous Notes* Telephone Encounter - Chong Church [facility] - 08/11/2022 2:11 PM EDT Spoke to PT - informed him that the authorization dept should be working on the approval - if not approved he will be informed by scheduling - Pear to pear and appeal should be scheduled to get it approved Thanks * Telephone Encounter - Vanessa Delgado Cma - 08/11/2022 1:38 PM EDT Patient has a CT scheduled for Thursday, stated it has yet to be approved. Patient asking what if anything needs to be done to get this approved. Please advise. Vanessa Delgado Cma documented in this encounterWadsworth-Rittman [facility]10-10-2022 Miscellaneous Notes* Telephone Encounter - Cordelia Floyd MA - 08/04/2022 5:29 PM EDT Faxed. Cordelia Floyd MA * Telephone Encounter - Jovany Antnoio APRN.MILL FEEDER - 08/04/2022 5:25 PM EDT See letter. Jovany Antonio APRN.JU * Telephone Encounter - Criss Devi MA - 08/04/2022 2:29 PM EDT Patient left message stating he needs an updated letter just like the one from 04/22/22 so he can continue to park inside the [employer] at work. States it needs faxed to [facility] at [phone] and [phone]. Please advise. Criss Devi MA documented in this encounterWadsworth-Rittman [facility]10-07-2022 Miscellaneous Notes* Telephone Encounter - Cordelia Floyd MA - 08/01/2022 7:23 AM EDT pharm requesting refills: Last office visit 05/02/2022. Last refill 01/30/2022 nov 08/15/2022 Requested Prescriptions Pending Prescriptions Disp Refills albuterol HFA (PROVENTIL HFA, VENTOLIN HFA) 90 mcg/actuation inhaler [Pharmacy Med Name: ALBUTEROL HFA INHALER 8.5GM 90MCG] 17 g 4 Sig: USE 2 INHALATIONS INSTRUCTED EVERY 4 HOURS NEEDED FOR WHEEZING/SHORTNESS OF BREATH Please review and advise. Cordelia Floyd MA documented in this encounterWadsworth-Rittman [facility]10-06-2022 Miscellaneous Notes* Telephone Encounter - Criss Devi MA - 07/31/2022 9:00 AM EDT pharmacy electronically requesting refills as follows: Last seen 05/02/22 . Last refill 02/03/22 . Requested Prescriptions Pending Prescriptions Disp Refills metoprolol tartrate, short acting, (LOPRESSOR) 50 mg tablet [Pharmacy Med Name: METOPROLOL TARTRATETABS 50MG] 180 tablet 3 Sig: TAKE 1 TABLET TWICE A DAY Please review and advise. Criss Devi MA documented in this encounterWadsworth-Rittman Hospital09-22-2022 History of Present illness Narrative* Martell Waterman MD - 07/17/2022 2:11 PM EDT Part of this note is carried forward from note dictated: 06/20/22. It is appropriately updated. The patient is a 55-year-old male with a diagnosis of diffuse large B-cell lymphoma. Presented withleft-sided flank pain and hydronephrosis. Left-sided pelvic mass 5 cm in size with obstruction to the distal ureter. The patient had a percutaneous nephrostomy put in. Biopsy showed changes consistent with diffuse large B-cell lymphoma. Bone marrow was negative. PET scan showed a small right commoniliac lymph node, multiple smaller hypermetabolic left paraaortic lymph nodes, in addition to the uptake in the large pelvic mass. The patient was given 6 cycles of Rituxan-CHOP chemotherapy. PET scan after the completion of chemotherapy showed persistent uptake at the site of dominant disease. This had now shrunk down 3 x 2.6 cm in size, but the SUV value was consistent with 13.3. There was decrease in the size of the rest of the lymph nodes, had significantly shrunk down. The patient appeared to have resistant refractory disease with the area of active disease at the site of dominant left pelvic mass. We discussed the options with the patient. We discussed chemotherapy with an intention to take him for transplant versus radiation to the area of active disease and observation. Delay transplant if he indeed progresses. On re-review of the PET, it appeared that the patient had a right-sided area of uptake in the medial aspect of the groin. Patient was complaining of tenderness in this area. On review of the PET, this area appeared to be PET avid. We were concerned about this being another area of viable disease and subjected him to a biopsy. Multiple cores were obtained from this. The pathology shows no evidence of any viable tumor. Fibroadipose tissue with acute and chronic inflammatory changes identified. After discussion with the patient and the radiation oncologist the decision was made to give the patient involved field radiation. He was given 54 Gy in 27 fractions between 01/13/2020 and 03/12/2020. The patient had the left ureteric stent removed. At the same time he also had a biopsy from the right inguinal nodule. The pathology reviewed. This was basically a benign changes consistent with chronic inflammation. Because of the PET scan showing PET-avid lymphadenopathy in left periaortic retroperitoneal chain measuring 2.8 x 2.6 with a SUV value of 3.4 [previous was 2.0 x 1.9 SUV value of 2.5], we decided to biopsy. On 09/11/20 biopsy showed benign lymphoid tissue with fibrofatty changes. His recent blood work is shown progressive decline in the hemoglobin down to about 9.9 along with adrop of MCV down to 74. FOBT negative from 08/2020. Patient had an upper and lower GI endoscopy dated 12/12/2020. One 10 mm polyp in the ascending colonand one 8 mm polyp in the ascending colon. A few gastric polyps removed. Colon polyp biopsy positive for tubular adenoma. Gastric polyps biopsy showing a hyperplastic-type polyp, negative for dysplasia. The patient underwent a laparoscopic-assisted left ureteral reimplant with psoas hitch and left ureteral stent placement. The stents were recently removed on 04/05/2021. Comes in post imaging. CAT scans from 04/03/2021 shows the left ureteral reimplantation with a psoas hitch, placement of a left double-J stent with improvement of the hydronephrosis. Decrease in the size of the left para-aortic lymph node. No other area of lymphadenopathy to suggest viable disease. Lymph nodes on CAT scan as follows: Lymph nodes: 1.0 x 2.1 cm LEFT para-aortic node adjacent to the just distal to the LEFT renal vasculature (3:64), previously 1.0 x 2.6 cm. Adjacent 1.1 x 2.5 cm node posteriorly (3:62), previously 1.5 x 2.8 cm. 1.1 x 1.4 cm node more superiorly (3:56), previously 1.9 x 1.2 cm. These demonstrated uptake on prior PET/CT, however biopsy of one of these nodes was negative. No new or enlarging abdominal or pelvic lymph nodes. The patient was diagnosed with Covid. This was as per the test. 05/14/2021. Patient had symptoms of cough and fever. His also had Covid. CT scan dated 10/07/2021:: CT scan of the chest abdomen pelvis dated 10/07/2021 shows no evidence of any mediastinal lymphadenopathy. Bibasilar airspace disease suggestive of atelectasis noted. The left aortic lymph node again essentially stable though on measurements appears to be minimally more prominent. No other lymphadenopathy identified. Near complete resolution of previously described ill-defined soft tissue density adjacent to the distal left ureter where the primary was. CT scan of the chest abdomen pelvis was performed on 04/25/2022. No evidence of any intrathoracic or mediastinal disease. CT scan of the abdomen and pelvis showed again left periaortic lymphs that had slightly shrunk in size. However of concern was a new cystic mass posterior to the bladder measuring5 x 5.3 cm in size. There was no evidence of any pelvic lymphadenopathy. There was unchanged thickening in the wall of the bladder noted. Because of the presence of the abnormality noted in the pelvis behind the bladder I was concerned about recurrence of disease and hence a PET scan was ordered. PET scan dated 05/14/2022 reviewed. Presence of a hypermetabolic pelvic mass. Measuring 5 x 4.3 cm in size with an SUV value of 10.8. Presence of few [id number] retroperitoneal and left para-aortic lymph nodes which are more or less stable in size. A biopsy from this mass was performed. Biopsy dated 05/23/2022 showed fibroinflammatory proliferation without any evidence of malignant lymphoma. However the pathologist could not rule out a soft tissue sarcoma and a diagnosis of a dedifferentiated liposarcoma could not be excluded. The patient has increased frequency of urination. Denies any hematuria. We proceeded with a MRI of the pelvis. He was also seen by urology and surgical oncology. The MRI of the pelvis showed the lesion involving the inferior right bladder with new areas of extension along the right rectum involving the right pubococcygeus muscle. This was felt to be perhaps inflammatory in nature. Also focal area of asymmetry involving the left superior bladder with enhancement felt to be fibrosis versus scarring versus possible bladder neoplasm. The patient has been started on Cipro after meeting with Dr. Ibarra today. The plan is to give him 2 weeks of therapy and repeat a CATscan. If this does not resolve then consider a laparoscopic review and drainage of this area and biopsies for tissue diagnosis. I will see the patient after imaging. All issues addressed in detail. Martell Waterman MD documented in this encounterWadsworth-Rittman [facility]09-06-2022 Miscellaneous Notes* Telephone Encounter - Criss Devi MA - 07/01/2022 2:22 PM EDT Patient phones requesting refills as follows: Last seen 05/02/22 . Last refill 03/03/22 . Requested Prescriptions Pending Prescriptions Disp Refills gabapentin (NEURONTIN) 300 mg capsule 270 capsule 0 Sig: Take 1 capsule by mouth three times daily for 90 days. Please review and advise. Criss Devi MA documented in this encounterWadsworth-Rittman Hospital08-26-2022 Miscellaneous Notes* Telephone Encounter - Stefano Merchant - 06/20/2022 11:02 AM EDT [place] wanted him to have an MRI then see Dr. Farah and Dr. Waterman again after. With [employer] insurance, we have to schedule 10 business days out. We have his MRI scheduled for 07/07. Leila, can you assist me with getting him in with [facility] shortly after? Where could we squeeze him in? Agata, can you help me double book Ali someplace as well? Thanks, Marcio documented in this encounterWadsworth-Rittman [facility]08-26-2022 History of Present illness Narrative* Martell Waterman MD - 06/20/2022 11:01 AM EDT Part of this note is carried forward from note dictated: 10/31/20 It is appropriately updated. The patient is a 55-year-old male with a diagnosis of diffuse large B-cell lymphoma. Presented withleft-sided flank pain and hydronephrosis. Left-sided pelvic mass 5 cm in size with obstruction to the distal ureter. The patient had a percutaneous nephrostomy put in. Biopsy showed changes consistent with diffuse large B-cell lymphoma. Bone marrow was negative. PET scan showed a small right commoniliac lymph node, multiple smaller hypermetabolic left paraaortic lymph nodes, in addition to the uptake in the large pelvic mass. The patient was given 6 cycles of Rituxan-CHOP chemotherapy. PET scan after the completion of chemotherapy showed persistent uptake at the site of dominant disease. This had now shrunk down 3 x 2.6 cm in size, but the SUV value was consistent with 13.3. There was decrease in the size of the rest of the lymph nodes, had significantly shrunk down. The patient appeared to have resistant refractory disease with the area of active disease at the site of dominant left pelvic mass. We discussed the options with the patient. We discussed chemotherapy with an intention to take him for transplant versus radiation to the area of active disease and observation. Delay transplant if he indeed progresses. On re-review of the PET, it appeared that the patient had a right-sided area of uptake in the medial aspect of the groin. Patient was complaining of tenderness in this area. On review of the PET, this area appeared to be PET avid. We were concerned about this being another area of viable disease and subjected him to a biopsy. Multiple cores were obtained from this. The pathology shows no evidence of any viable tumor. Fibroadipose tissue with acute and chronic inflammatory changes identified. After discussion with the patient and the radiation oncologist the decision was made to give the patient involved field radiation. He was given 54 Gy in 27 fractions between 01/13/2020 and 03/12/2020. The patient had the left ureteric stent removed. At the same time he also had a biopsy from the right inguinal nodule. The pathology reviewed. This was basically a benign changes consistent with chronic inflammation. Because of the PET scan showing PET-avid lymphadenopathy in left periaortic retroperitoneal chain measuring 2.8 x 2.6 with a SUV value of 3.4 [previous was 2.0 x 1.9 SUV value of 2.5], we decided to biopsy. On 09/11/20 biopsy showed benign lymphoid tissue with fibrofatty changes. His recent blood work is shown progressive decline in the hemoglobin down to about 9.9 along with adrop of MCV down to 74. FOBT negative from 08/2020. Patient had an upper and lower GI endoscopy dated 12/12/2020. One 10 mm polyp in the ascending colonand one 8 mm polyp in the ascending colon. A few gastric polyps removed. Colon polyp biopsy positive for tubular adenoma. Gastric polyps biopsy showing a hyperplastic-type polyp, negative for dysplasia. The patient underwent a laparoscopic-assisted left ureteral reimplant with psoas hitch and left ureteral stent placement. The stents were recently removed on 04/05/2021. Comes in post imaging. CAT scans from 04/03/2021 shows the left ureteral reimplantation with a psoas hitch, placement of a left double-J stent with improvement of the hydronephrosis. Decrease in the size of the left para-aortic lymph node. No other area of lymphadenopathy to suggest viable disease. Lymph nodes on CAT scan as follows: Lymph nodes: 1.0 x 2.1 cm LEFT para-aortic node adjacent to the just distal to the LEFT renal vasculature (3:64), previously 1.0 x 2.6 cm. Adjacent 1.1 x 2.5 cm node posteriorly (3:62), previously 1.5 x 2.8 cm. 1.1 x 1.4 cm node more superiorly (3:56), previously 1.9 x 1.2 cm. These demonstrated uptake on prior PET/CT, however biopsy of one of these nodes was negative. No new or enlarging abdominal or pelvic lymph nodes. The patient was diagnosed with Covid. This was as per the test. 05/14/2021. Patient had symptoms of cough and fever. His also had Covid. CT scan dated 10/07/2021:: CT scan of the chest abdomen pelvis dated 10/07/2021 shows no evidence of any mediastinal lymphadenopathy. Bibasilar airspace disease suggestive of atelectasis noted. The left aortic lymph node again essentially stable though on measurements appears to be minimally more prominent. No other lymphadenopathy identified. Near complete resolution of previously described ill-defined soft tissue density adjacent to the distal left ureter where the primary was. CT scan of the chest abdomen pelvis was performed on 04/25/2022. No evidence of any intrathoracic or mediastinal disease. CT scan of the abdomen and pelvis showed again left periaortic lymphs that had slightly shrunk in size. However of concern was a new cystic mass posterior to the bladder measuring5 x 5.3 cm in size. There was no evidence of any pelvic lymphadenopathy. There was unchanged thickening in the wall of the bladder noted. Because of the presence of the abnormality noted in the pelvis behind the bladder I was concerned about recurrence of disease and hence a PET scan was ordered. PET scan dated 05/14/2022 reviewed. Presence of a hypermetabolic pelvic mass. Measuring 5 x 4.3 cm in size with an SUV value of 10.8. Presence of few [id number] retroperitoneal and left para-aortic lymph nodes which are more or less stable in size. A biopsy from this mass was performed. Biopsy dated 05/23/2022 showed fibroinflammatory proliferation without any evidence of malignant lymphoma. However the pathologist could not rule out a soft tissue sarcoma and a diagnosis of a dedifferentiated liposarcoma could not be excluded. The patient has increased frequency of urination. Denies any hematuria. Case was discussed with surgical/oncological urology. Dr. Ibarra was informed about the above. He will need surgical resection if this is indeed a soft tissue sarcoma. If not a laparoscopic biopsy should be considered to ensure that we are not missing out lymphoma. I doubt this is lymphoma. 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 A MRI of the pelvis has been ordered. Appointment has been made with urology. I will see him post imaging and after visit with urology and we will plan on the course. Scans shown and discussed with the patient. Martell Waterman MD documented in this encounterWadsworth-Rittman [facility]08-23-2022 Miscellaneous Notes* Telephone Encounter - Criss Devi MA - 06/17/2022 4:50 PM EDT Patient left message stating he does not know who [employer] is and does not want us to give them anyinformation. Criss Devi MA * Telephone Encounter - Criss Devi MA - 06/17/2022 12:58 PM EDT Sonia with [employer] left message wanting to know if patient was seeing Dr. Bloom. Said when calling back use case# [id number]. Left message for Yamilka to let us know if he knows this company and if he would like us to call them back. Criss Devi MA documented in this encounterWadsworth-Rittman [facility]08-08-2022 History of Present illness Narrative* Eduardo Vasques MD - 06/02/2022 1:27 PM EDT [facility] CLINICAL NOTE Department of Hematology and Medical Oncology PATIENT NAME: Yamilka Sharma [facility] NO.: [id number] ATTENDING PHYSICIAN: Eduardo Vasques MD DATE OF SERVICE: 06/02/2022 LYMPHOMA CLINIC CONSULT REFERRING PHYSICIAN: Martell Waterman MD HISTORY OF PRESENT ILLNESS: Nursing notes reviewed; agree with findings as documented. Mr. Yamilka Sharma is a 56 year old man with a history of diffuse large B-cell lymphoma who presents for consultation regarding his diagnosis and management, at the request of Dr. Martell Waterman. My recommendations will be communicated to Dr. Waterman by means of shared medical records. Mr. Sharma was diagnosed with DLBCL in 06/2019 after he presented with left flank pain. CT imaging showed a 6.6 cm left pelvic mass with associated left hydroureteronephrosis. He underwent placement of a percutaneous left nephrostomy tube, and CT-guided biopsy on 07/05/2019 showed EBV positive DLBCL, positive for both CD20 and CD30, with expression of BCL2, BCL6, and MYC (40%). FISH demonstrated BCL6 rearrangement only. Staging PET/CT and bone marrow biopsy were consistent with stage IIA disease, and he was treated with R-CHOP x 6 cycles. His course was complicated by COPD/pneumonia hospitalization (?COVID, suspected but not documented), and his last couple of cycles were given with some dose reduction according to the patient. His last cycle was administered 12/19/2019, and posttreatment PET/CT demonstrated a residual left pelvic mass measuring 3 cm with max SUV 13.3. He received radiotherapy for presumed residual disease, 5400 cGy in 27 fractions completed 02/2020. He subsequently underwent biopsy of a 2.8 cm left retroperitoneal paraaortic lymph node with max SUV 3.4 in 08/2020, which showed benign lymphoid tissue. He later underwent laparoscopic-assisted left ureteral reimplant with psoas hitch and left ureteral stent placement, followed by ureteral stent removal in 03/2021. Routine CT chest, abdomen, and pelvis on 04/25 demonstrated a new mass posterior to the bladder whichmeasures 5 x 5.3 cm, and PET/CT on 05/13 confirmed a new hypermetabolic pelvic mass posterior to theurinary bladder with max SUV 10.8. CT-guided percutaneous biopsy of the pelvic mass was obtained on05/23, with report not yet completed. Per discussion with our pathologist, the specimens show fibrofatty tissue with sparse chronic inflammation, no evidence of lymphoid malignancy. 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 IHC for MDM2 was negative, FISH for MDM2 pending. PAST MEDICAL HISTORY Diagnosis Date Acute exacerbation of chronic obstructive airways disease (HCC) Rx for augmentin, symptomatic care as needed. Patient denies COPD, asthma, uses an inhaler PRN usually about once a year with hot weather Anemia Depression Diffuse large B cell lymphoma (HCC) 07/14/2019 Encounter for screening for malignant neoplasm of prostate Essential hypertension continue Lisinopril Hydronephrosis Hydronephrosis with ureteral stricture Hypomagnesemia 10/30/2019 DEISI (obstructive sleep apnea) mild and no CPAP Sepsis due to gram-negative UTI (HCC) 10/25/2019 Type 2 diabetes mellitus (HCC) continue current meds Ureteral obstruction, left Urinary tract infection PAST SURGICAL HISTORY Procedure Laterality Date APPENDECTOMY 1982 BONE MARRO ASPIRATE & BIOPSY 07/20/2019 CYSTOSCOPY 2019 KNIFE,CARPAL TUNNEL,[id number] Bilateral Carpal Tunnel Surgery 06/10/2013 NEPHROSTOMY TUBE 06/2019 PAST SURGICAL HISTORY OF 2013 temporal arterial biopsy PAST SURGICAL HISTORY OF 2013 sinus scraping, deviated septum repair PAST SURGICAL HISTORY OF Right PURPLE POWER PORT RIGHT CHEST PAST SURGICAL HISTORY OF Right TESTICLE REMOVED PAST SURGICAL HISTORY OF 02/19/2021 ureter stent MEDICATIONS: Current Outpatient Medications on File Prior to Visit Medication Sig SITagliptin (JANUVIA) 25 mg tablet Take 1 tablet by mouth once daily. rosuvastatin (CRESTOR) 40 mg tablet Take 1 tablet by mouth once daily. lidocaine-prilocaine (EMLA) 2.5-2.5 % cream APPLY TO AFFECTED AREA NEEDED PRIOR TO CHEMOTHERAPY metoprolol tartrate, short acting, (LOPRESSOR) 50 mg tablet TAKE 1 TABLET TWICE A DAY metFORMIN (GLUCOPHAGE) 1,000 mg tablet TAKE 1 TABLET TWICE A DAY ibuprofen (MOTRIN) 200 mg tablet Take 200 mg by mouth every 6 hours as needed. albuterol HFA (PROVENTIL HFA, VENTOLIN HFA) 90 mcg/actuation inhaler Inhale 2 Puffs as instructed every 4 hours as needed for wheezing/shortness of breath. KLOR-CON M20 20 mEq tablet TAKE 1 TABLET TWICE A DAY furosemide (LASIX) 40 mg tablet TAKE 1 TABLET TWICE A DAY lisinopril (ZESTRIL, PRINIVIL) 10 mg tablet TAKE 1 TABLET DAILY glimepiride (AMARYL) 2 mg tablet Take 3 tablets by mouth once daily. blood sugar diagnostic (ONETOUCH VERIO TEST STRIPS) test strip 1 Strip before meals and at bedtime.Use as instructed Blood-Glucose Meter 1 Each three times daily. Please match the test strips and lancets Insulin Alzada, Disposable, (BD ULTRA-FINE PAULA PEN NEEDLE) 32 gauge x 5/32 Inject 1 Each subcutaneously four times daily as needed. ondansetron (ZOFRAN) 4 mg tablet Take 1 tablet by mouth every 8 hours as needed for Nausea/Vomiting. acetaminophen (TYLENOL EXTRA STRENGTH ORAL) Take 1,000 mg by mouth three times daily. blood sugar diagnostic (ONETOUCH ULTRA TEST) test strip 1 Strip four times daily. E11.9 polyethylene glycol 3350 (MIRALAX, GLYCOLAX) 17 gram packet Take 1 Packet by mouth once daily. (Patient taking differently: Take 17 g by mouth as needed.) aspirin 81 mg chewable tablet Take 81 mg by mouth once daily. gabapentin (NEURONTIN) 300 mg capsule Take 1 capsule by mouth three times daily for 90 days. tamsulosin (FLOMAX) 0.4 mg Take 1 capsule by mouth once daily. 30 minutes after the same meal each day. ALLERGIES Allergen Reactions Aspartame Other: See Comments Severe headache Bactrim [Sulfametho* Hives, Other: See Comments Reaction: gas Sensitivity: Intolerance. Sensitivity: Intolerance Biaxin [Clarithromy* Unknown Indigestion/gas Influenza Vaccine T* Unknown Flu Monosodium Glutamat* Other: See Comments Severe headache Pantoprazole Diarrhea Sulfa (Sulfonamide * Rash, Hives Clindamycin Hcl Diarrhea, GI Upset, Vomiting Reaction: Nausea/vomiting/diarrhea Other Reaction: stomach cramps Sensitivity: Intolerance FAMILY HISTORY Problem Relation Age of Onset other (Other inflammatory connective disorder) Mother Scleroderma other (Respiratory disorder) Mother other (Rheumatologic disorder) Mother other (Systemic lupus) Mother Heart Father Diabetes Father Diabetes Brother Diabetes Brother Cancer No Family History SOCIAL HISTORY: Mr. Sharma lives with his and children in [place]. 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 He is a former cigarette smoker, having quit in 2015. He drinks alcohol rarely, in moderation. REVIEW OF SYSTEMS: As described above. ECOG PS = 0. PHYSICAL EXAMINATION: VITAL SIGNS: BP 107/55 Pulse 82 Temp 36.6 C (97.9 F) (Oral) Resp 18 Ht 181.2 cm (5' 11.34) Wt 124.8 kg (275 lb 3.2 oz) SpO2 99% BMI 38.02 kg/m GENERAL: well-appearing middle-aged man in no acute distress. HEAD, EYES, EARS, NOSE, AND THROAT: Normocephalic, atraumatic. Extraocular movements intact, sclerae anicteric. The oropharynx is clear. NECK: Supple, no lymphadenopathy or masses. CHEST: Clear to auscultation. No rales, wheezes, or rhonchi. CARDIAC: Regular rate and rhythm, normal S1 and S2. No murmurs. ABDOMEN: Abdomen soft, non-tender. Bowel sounds normal. No masses, organomegaly. EXTREMITIES: Warm, no edema. LYMPH NODES: No axillary or inguinal lymphadenopathy. MUSCULOSKELETAL: No spinal tenderness to palpation. No obvious deformity. SKIN: No rash or suspicious lesions. DIAGNOSTIC STUDIES: Component Latest Ref Rng & Units 04/25/2022 WBC 3.70 - 11.00 k/uL 9.92 RBC 4.20 - 6.00 m/uL 4.35 Hemoglobin 13.0 - 17.0 g/dL 11.5 (L) Hematocrit 39.0 - 51.0 % 35.0 (L) MCV 80.0 - 100.0 fL 80.5 MCH 26.0 - 34.0 pg 26.4 MCHC 30.5 - 36.0 g/dL 32.9 RDW-CV 11.5 - 15.0 % 13.2 Platelet Count 150 - 400 k/uL 174 MPV 9.0 - 12.7 fL 10.9 Neut% % 71.9 Abs Neut (ANC) 1.45 - 7.50 k/uL 7.13 Lymph% % 16.3 Abs Lymph 1.00 - 4.00 k/uL 1.62 [place]% % 7.5 Abs [place] <0.87 k/uL 0.74 Eosin% % 3.6 Abs Eosin <0.46 k/uL 0.36 Baso% % 0.3 Abs Baso <0.11 k/uL 0.03 Immature Gran % % 0.4 IMMATURE GRANS (ABS) <0.10 k/uL 0.04 NRBC /100 WBC 0.0 Absolute nRBC <0.01 k/uL <0.01 DTYPE Auto Nucleated Reds 0 /100 WBC Diff Type Protein, Total 6.3 - 8.0 g/dL 7.1 Albumin 3.9 - 4.9 g/dL 4.1 Calcium 8.5 - 10.2 mg/dL 8.9 Bilirubin, Total 0.2 - 1.3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 lymphadenopathy in left periaortic retroperitoneal chain measuring 2.8 x 2.6 with a SUV value of 3.4 [previous was 2.0 x 1.9 SUV value of 2.5], we decided to biopsy. On 09/11/20 biopsy showed benign lymphoid tissue with fibrofatty changes. His recent blood work is shown progressive decline in the hemoglobin down to about 9.9 along with adrop of MCV down to 74. FOBT negative from 08/2020. Patient had an upper and lower GI endoscopy dated 12/12/2020. One 10 mm polyp in the ascending colonand one 8 mm polyp in the ascending colon. A few gastric polyps removed. Colon polyp biopsy positive for tubular adenoma. Gastric polyps biopsy showing a hyperplastic-type polyp, negative for dysplasia. The patient underwent a laparoscopic-assisted left ureteral reimplant with psoas hitch and left ureteral stent placement. The stents were recently removed on 04/05/2021. Comes in post imaging. CAT scans from 04/03/2021 shows the left ureteral reimplantation with a psoas hitch, placement of a left double-J stent with improvement of the hydronephrosis. Decrease in the size of the left para-aortic lymph node. No other area of lymphadenopathy to suggest viable disease. Lymph nodes on CAT scan as follows: Lymph nodes: 1.0 x 2.1 cm LEFT para-aortic node adjacent to the just distal to the LEFT renal vasculature (3:64), previously 1.0 x 2.6 cm. Adjacent 1.1 x 2.5 cm node posteriorly (3:62), previously 1.5 x 2.8 cm. 1.1 x 1.4 cm node more superiorly (3:56), previously 1.9 x 1.2 cm. These demonstrated uptake on prior PET/CT, however biopsy of one of these nodes was negative. No new or enlarging abdominal or pelvic lymph nodes. The patient was diagnosed with Covid. This was as per the test. 05/14/2021. Patient had symptoms of cough and fever. His also had Covid. CT scan dated 10/07/2021:: CT scan of the chest abdomen pelvis dated 10/07/2021 shows no evidence of any mediastinal lymphadenopathy. Bibasilar airspace disease suggestive of atelectasis noted. The left aortic lymph node again essentially stable though on measurements appears to be minimally more prominent. No other lymphadenopathy identified. Near complete resolution of previously described ill-defined soft tissue density adjacent to the distal left ureter where the primary was. CT scan of the chest abdomen pelvis was performed on 04/25/2022. No evidence of any intrathoracic or mediastinal disease. CT scan of the abdomen and pelvis showed again left periaortic lymphs that had slightly shrunk in size. However of concern was a new cystic mass posterior to the bladder measuring5 x 5.3 cm in size. There was no evidence of any pelvic lymphadenopathy. There was unchanged thickening in the wall of the bladder noted. The patient has no B symptoms. Scans reviewed shown to the patient. I am concerned about the cystic mass in the posterior aspect of the bladder. This is concerning for relapsed non-Hodgkin's lymphoma. The patient will benefit froma PET scan. If this lesion lights up on a PET scan it has to be biopsied. See him back post PET scan in 2 weeks. Martell Waterman MD documented in this encounterWadsworth-[facility]07-01-[facility]22 History of Present illness Narrative* RT Miguel(R) - 04/25/2022 11:00 AM EDT Radiology Service Progress Note PATIENT NAME: Yamilka Sharma DATE OF SERVICE: April 25, 2022 TIME: 10:41 AM PATIENT IDENTITY VERIFICATION COMPLETED USING TWO (2) IDENTIFIERS: Name and Date of confirmedby patient verbally. FALL SCREENING: Has the patient had 2 falls in the last year or 1 fall with injury or currently using an Ambulatory Assistive Device (Walker, Cane, Wheelchair, Crutches, etc.)? No PATIENT GENDER DATA: Male PATIENT RELEVANT IMPLANT DATA REVIEWED: Not Applicable RADIOLOGY DEPARTMENT: CT; Exam(s) Completed: Chest Abdomen Pelvis PERIPHERAL IV DATA: power port accessed by [email or web address] SIGNED BY: RT Miguel(R) April 25, 2022 10:41 AM documented in this encounterWadsworth-[facility]06-29-2022 Miscellaneous Notes* Telephone Encounter - Judit Pearson - 04/23/2022 1:46 PM EDT Scheduled. Judit Pearson * Telephone Encounter - JATIN Casper - 04/23/2022 1:11 PM EDT Pt would like to use port for appt on 04/25/[address] @ 10 for prep and 11 for scan documented in this [facility]06-28-2022 Miscellaneous Notes* Telephone Encounter - Cordelia Floyd MA - 04/22/2022 11:29 AM EDT Faxed to [facility] at [phone] and [phone]. Cordelia Floyd MA * Telephone Encounter - Najma Bloom DO - 04/22/2022 11:25 AM EDT Pt needs letter allowing him to park inside the fence at work. Please fax to [facility] at his place of employment Najma Bloom DO documented in this [facility]06-24-2022 Miscellaneous Notes* Telephone Encounter - Marla Engel Ma - 04/18/2022 2:58 PM EDT Orders are in for his upcoming ct and ov visit * Telephone Encounter - JATIN Casper - 04/18/2022 2:[address] order for stat creatinine order for pt , pt appt 04/25/[address] In the morning.. documented in this [facility]06-22-2022 Miscellaneous Notes* Telephone Encounter - Cordelia Floyd MA - 04/16/2022 9:03 AM EDT Patient requesting refills: Last office visit 01/30/2022. Last refill 08/05/2021 nov 05/02/2022 Pending Prescriptions Disp Refills LIDOCAINE-PRILOCAINE 2.5 %-2.5 % TOPICAL CREAM 30 g 11 Sig: APPLY TO AFFECTED AREA NEEDED PRIOR TO CHEMOTHERAPY CATY: No Please review and advise. Cordelia Floyd MA documented in this encounterWadsworth-[facility]04-11-2022 Miscellaneous Notes* Telephone Encounter - Sonia Coffey MA - 02/03/2022 8:02 AM EDT Pharmacy requesting refills as follows: Last Office Visit 01/30/22 nov 05/02/22. Last Refill 08/23/21. Pending Prescriptions Disp Refills METOPROLOL TARTRATE 50 MG TABLET 180 tablet 1 Sig: TAKE 1 TABLET TWICE A DAY CATY: Yes Please review and advise. Sonia Coffey MA documented in this encounterWadsworth-[facility]04-08-2022 Miscellaneous Notes* Telephone Encounter - Criss Devi MA - 01/31/2022 6:54 AM EDT pharmacy electronically requesting refills as follows: Last seen 01/30/22 . Last refill 02/05/21 . Pending Prescriptions Disp Refills METFORMIN 1,000 MG TABLET 180 tablet 3 Sig: TAKE 1 TABLET TWICE A DAY CATY: Yes Please review and advise. Criss Devi MA documented in this encounterWadsworth-[facility]01-05-2020 History of Past illness Narrative* Problem Noted Date Resolved Date Hypomagnesemia 10/30/2019 11/01/2019 Last Assessment & Plan: Recent Labs 10/30/19 0615 10/29/19 0615 10/28/19 0600 BUN 13 11 9 CREAT 0.85 0.82 0.77 CA 9.4 9.3 8.9 MG 1.6* 1.7 -- Assessment: Continue supplementation PLAN: Adjustments per mag level Hyperglycemia 10/30/2019 11/01/2019 Elevated lactic acid level 10/26/201910/26 Last Assessment & Plan: Assessment/PLAN: Lactic acid elevated in ED, normalized with IV fluids Hold metformin for now Sepsis due to gram-negative UTI 10/25/2019 10/26/2019 Last Assessment & Plan: Assessment/PLAN: He presented to the ED with an episode of high-grade fever, has completed third cycle of chemotherapy for diffuse large B-cell lymphoma last week on 10/17/2019 Noted to have fever of 101 in ED, tachycardic, blood pressure normal Lactate elevated normalized with IV fluids Urinalysis revealed cloudy urine with elevated WBC, urine culture sent Blood culture sent from ED Nephrostomy tube changed on 09/15/2019 Previous urine culture grew Serratia Started on Zosyn in ED, continue Follow-up cultures Neutropenic sepsis 09/13/2019 09/16/2019 Last Assessment & Plan: BC negative. Urine culture result noted. Unable to determine if related to nephrostomy tube. Wait for final rec's from ID for discharge. Nephrostomy status 09/13/2019 05/22/2021 Last Assessment & Plan: Assessment/PLAN: Last changed on 09/15/2019, he has appointment on nephrostomy tube exchange Exchange vs removal pending CT scans with Dr Columba Uriarte 07/21/2017 05/22/2021 Insulin dependent type 2 diabetes mellitus, unco ntrolled 12/11/2016 04/06/2020 Last Assessment & Plan: Assessment/PLAN: Resume home regimen and follow up with PCP Pain in right foot 12/11/2016 12/11/2016 documented as of this encounter (statuses as of 01/29/2022) [facility] History of Past illness Narrative* Problem Noted Date Resolved Date Hypomagnesemia 10/30/2019 11/01/2019 Last Assessment & Plan: Recent Labs 10/30/19 0615 10/29/19 0615 10/28/19 0600 BUN 13 11 9 CREAT 0.85 0.82 0.77 CA 9.4 9.3 8.9 MG 1.6* 1.7 -- Assessment: Continue supplementation PLAN: Adjustments per mag level Hyperglycemia 10/30/2019 11/01/2019 Elevated lactic acid level 10/26/201910/26 Last Assessment & Plan: Assessment/PLAN: Lactic acid elevated in ED, normalized with IV fluids Hold metformin for now Sepsis due to gram-negative UTI 10/25/2019 10/26/2019 Last Assessment & Plan: Assessment/PLAN: He presented to the ED with an episode of high-grade fever, has completed third cycle of chemotherapy for diffuse large B-cell lymphoma last week on 10/17/2019 Noted to have fever of 101 in ED, tachycardic, blood pressure normal Lactate elevated normalized with IV fluids Urinalysis revealed cloudy urine with elevated WBC, urine culture sent Blood culture sent from ED Nephrostomy tube changed on 09/15/2019 Previous urine culture grew Serratia Started on Zosyn in ED, continue Follow-up cultures Neutropenic sepsis 09/13/2019 09/16/2019 Last Assessment & Plan: BC negative. Urine culture result noted. Unable to determine if related to nephrostomy tube. Wait for final rec's from ID for discharge. Nephrostomy status 09/13/2019 05/22/2021 Last Assessment & Plan: Assessment/PLAN: Last changed on 09/15/2019, he has appointment on nephrostomy tube exchange Exchange vs removal pending CT scans with Dr Columba Uriarte 07/21/2017 05/22/2021 Insulin dependent type 2 diabetes mellitus, unco ntrolled 12/11/2016 04/06/2020 Last Assessment & Plan: Assessment/PLAN: Resume home regimen and follow up with PCP Pain in right foot 12/11/2016 12/11/2016 documented as of this encounter (statuses as of 01/31/2022) [facility] of Past illness Narrative* Problem Noted Date Resolved Date Hypomagnesemia 10/30/2019 11/01/2019 Last Assessment & Plan: Recent Labs 10/30/19 0615 10/29/19 0615 10/28/19 0600 BUN 13 11 9 CREAT 0.85 0.82 0.77 CA 9.4 9.3 8.9 MG 1.6* 1.7 -- Assessment: Continue supplementation PLAN: Adjustments per mag level Hyperglycemia 10/30/2019 11/01/2019 Elevated lactic acid level 10/26/201910/26 Last Assessment & Plan: Assessment/PLAN: Lactic acid elevated in ED, normalized with IV fluids Hold metformin for now Sepsis due to gram-negative UTI 10/25/2019 10/26/2019 Last Assessment & Plan: Assessment/PLAN: He presented to the ED with an episode of high-grade fever, has completed third cycle of chemotherapy for diffuse large B-cell lymphoma last week on 10/17/2019 Noted to have fever of 101 in ED, tachycardic, blood pressure normal Lactate elevated normalized with IV fluids Urinalysis revealed cloudy urine with elevated WBC, urine culture sent Blood culture sent from ED Nephrostomy tube changed on 09/15/2019 Previous urine culture grew Serratia Started on Zosyn in ED, continue Follow-up cultures Neutropenic sepsis 09/13/2019 09/16/2019 Last Assessment & Plan: BC negative. Urine culture result noted. Unable to determine if related to nephrostomy tube. Wait for final rec's from ID for discharge. Nephrostomy status 09/13/2019 05/22/2021 Last Assessment & Plan: Assessment/PLAN: Last changed on 09/15/2019, he has appointment on nephrostomy tube exchange Exchange vs removal pending CT scans with Dr Columba Rosaomycsera 07/21/2017 05/22/2021 Insulin dependent type 2 diabetes mellitus, unco ntrolled 12/11/2016 04/06/2020 Last Assessment & Plan: Assessment/PLAN: Resume home regimen and follow up with PCP Pain in right foot 12/11/2016 12/11/2016 documented as of this encounter (statuses as of 02/03/2022) [facility] of Past illness Narrative* Problem Noted Date Resolved Date Hypomagnesemia 10/30/2019 11/01/2019 Last Assessment & Plan: Recent Labs 10/30/19 0615 10/29/19 0615 10/28/19 0600 BUN 13 11 9 CREAT 0.85 0.82 0.77 CA 9.4 9.3 8.9 MG 1.6* 1.7 -- Assessment: Continue supplementation PLAN: Adjustments per mag level Hyperglycemia 10/30/2019 11/01/2019 Elevated lactic acid level 10/26/201910/26 Last Assessment & Plan: Assessment/PLAN: Lactic acid elevated in ED, normalized with IV fluids Hold metformin for now Sepsis due to gram-negative UTI 10/25/2019 10/26/2019 Last Assessment & Plan: Assessment/PLAN: He presented to the ED with an episode of high-grade fever, has completed third cycle of chemotherapy for diffuse large B-cell lymphoma last week on 10/17/2019 Noted to have fever of 101 in ED, tachycardic, blood pressure normal Lactate elevated normalized with IV fluids Urinalysis revealed cloudy urine with elevated WBC, urine culture sent Blood culture sent from ED Nephrostomy tube changed on 09/15/2019 Previous urine culture grew Serratia Started on Zosyn in ED, continue Follow-up cultures Neutropenic sepsis 09/13/2019 09/16/2019 Last Assessment & Plan: BC negative. Urine culture result noted. Unable to determine if related to nephrostomy tube. Wait for final rec's from ID for discharge. Nephrostomy status 09/13/2019 05/22/2021 Last Assessment & Plan: Assessment/PLAN: Last changed on 09/15/2019, he has appointment on nephrostomy tube exchange Exchange vs removal pending CT scans with Dr Waterman Onychomycosis 07/21/2017 05/22/2021 Insulin dependent type 2 diabetes mellitus, unco ntrolled 12/11/2016 04/06/2020 Last Assessment & Plan: Assessment/PLAN: Resume home regimen and follow up with PCP Pain in right foot 12/11/2016 12/11/2016 documented as of this encounter (statuses as of 04/17/2022) [facility] of Past illness Narrative* Problem Noted Date Resolved Date Hypomagnesemia 10/30/2019 11/01/2019 Last Assessment & Plan: Recent Labs 10/30/19 0615 10/29/19 0615 10/28/19 0600 BUN 13 11 9 CREAT 0.85 0.82 0.77 CA 9.4 9.3 8.9 MG 1.6* 1.7 -- Assessment: Continue supplementation PLAN: Adjustments per mag level Hyperglycemia 10/30/2019 11/01/2019 Elevated lactic acid level 10/26/201910/26 Last Assessment & Plan: Assessment/PLAN: Lactic acid elevated in ED, normalized with IV fluids Hold metformin for now Sepsis due to gram-negative UTI 10/25/2019 10/26/2019 Last Assessment & Plan: Assessment/PLAN: He presented to the ED with an episode of high-grade fever, has completed third cycle of chemotherapy for diffuse large B-cell lymphoma last week on 10/17/2019 Noted to have fever of 101 in ED, tachycardic, blood pressure normal Lactate elevated normalized with IV fluids Urinalysis revealed cloudy urine with elevated WBC, urine culture sent Blood culture sent from ED Nephrostomy tube changed on 09/15/2019 Previous urine culture grew Serratia Started on Zosyn in ED, continue Follow-up cultures Neutropenic sepsis 09/13/2019 09/16/2019 Last Assessment & Plan: BC negative. Urine culture result noted. Unable to determine if related to nephrostomy tube. Wait for final rec's from ID for discharge. Nephrostomy status 09/13/2019 05/22/2021 Last Assessment & Plan: Assessment/PLAN: Last changed on 09/15/2019, he has appointment on nephrostomy tube exchange Exchange vs removal pending CT scans with Dr Columba Uriarte 07/21/2017 05/22/2021 Insulin dependent type 2 diabetes mellitus, unco ntrolled 12/11/2016 04/06/2020 Last Assessment & Plan: Assessment/PLAN: Resume home regimen and follow up with PCP Pain in right foot 12/11/2016 12/11/2016 documented as of this encounter (statuses as of 04/18/2022) [facility]01-05-2020 History of Past illness Narrative* Problem Noted Date Resolved Date Hypomagnesemia 10/30/2019 11/01/2019 Last Assessment & Plan: Recent Labs 10/30/19 0615 10/29/19 0615 10/28/19 0600 BUN 13 11 9 CREAT 0.85 0.82 0.77 CA 9.4 9.3 8.9 MG 1.6* 1.7 -- Assessment: Continue supplementation PLAN: Adjustments per mag level Hyperglycemia 10/30/2019 11/01/2019 Elevated lactic acid level 10/26/201910/26 Last Assessment & Plan: Assessment/PLAN: Lactic acid elevated in ED, normalized with IV fluids Hold metformin for now Sepsis due to gram-negative UTI 10/25/2019 10/26/2019 Last Assessment & Plan: Assessment/PLAN: He presented to the ED with an episode of high-grade fever, has completed third cycle of chemotherapy for diffuse large B-cell lymphoma last week on 10/17/2019 Noted to have fever of 101 in ED, tachycardic, blood pressure normal Lactate elevated normalized with IV fluids Urinalysis revealed cloudy urine with elevated WBC, urine culture sent Blood culture sent from ED Nephrostomy tube changed on 09/15/2019 Previous urine culture grew Serratia Started on Zosyn in ED, continue Follow-up cultures Neutropenic sepsis 09/13/2019 09/16/2019 Last Assessment & Plan: BC negative. Urine culture result noted. Unable to determine if related to nephrostomy tube. Wait for final rec's from ID for discharge. Nephrostomy status 09/13/2019 05/22/2021 Last Assessment & Plan: Assessment/PLAN: Last changed on 09/15/2019, he has appointment on nephrostomy tube exchange Exchange vs removal pending CT scans with Dr Columba Uriarte 07/21/2017 05/22/2021 Insulin dependent type 2 diabetes mellitus, unco ntrolled 12/11/2016 04/06/2020 Last Assessment & Plan: Assessment/PLAN: Resume home regimen and follow up with PCP Pain in right foot 12/11/2016 12/11/2016 documented as of this encounter (statuses as of 04/22/2022) [facility]01-05-2020 History of Past illness Narrative* Problem Noted Date Resolved Date Hypomagnesemia 10/30/2019 11/01/2019 Last Assessment & Plan: Recent Labs 10/30/19 0615 10/29/19 0615 10/28/19 0600 BUN 13 11 9 CREAT 0.85 0.82 0.77 CA 9.4 9.3 8.9 MG 1.6* 1.7 -- Assessment: Continue supplementation PLAN: Adjustments per mag level Hyperglycemia 10/30/2019 11/01/2019 Elevated lactic acid level 10/26/201910/26 Last Assessment & Plan: Assessment/PLAN: Lactic acid elevated in ED, normalized with IV fluids Hold metformin for now Sepsis due to gram-negative UTI 10/25/2019 10/26/2019 Last Assessment & Plan: Assessment/PLAN: He presented to the ED with an episode of high-grade fever, has completed third cycle of chemotherapy for diffuse large B-cell lymphoma last week on 10/17/2019 Noted to have fever of 101 in ED, tachycardic, blood pressure normal Lactate elevated normalized with IV fluids Urinalysis revealed cloudy urine with elevated WBC, urine culture sent Blood culture sent from ED Nephrostomy tube changed on 09/15/2019 Previous urine culture grew Serratia Started on Zosyn in ED, continue Follow-up cultures Neutropenic sepsis 09/13/2019 09/16/2019 Last Assessment & Plan: BC negative. Urine culture result noted. Unable to determine if related to nephrostomy tube. Wait for final rec's from ID for discharge. Nephrostomy status 09/13/2019 05/22/2021 Last Assessment & Plan: Assessment/PLAN: Last changed on 09/15/2019, he has appointment on nephrostomy tube exchange Exchange vs removal pending CT scans with Dr Columba Uriarte 07/21/2017 05/22/2021 Insulin dependent type 2 diabetes mellitus, unco ntrolled 12/11/2016 04/06/2020 Last Assessment & Plan: Assessment/PLAN: Resume home regimen and follow up with PCP Pain in right foot 12/11/2016 12/11/2016 documented as of this encounter (statuses as of 04/23/2022) [facility]01-05-2020 History of Past illness Narrative* Problem Noted Date Resolved Date Hypomagnesemia 10/30/2019 11/01/2019 Last Assessment & Plan: Recent Labs 10/30/19 0615 10/29/19 0615 10/28/19 0600 BUN 13 11 9 CREAT 0.85 0.82 0.77 CA 9.4 9.3 8.9 MG 1.6* 1.7 -- Assessment: Continue supplementation PLAN: Adjustments per mag level Hyperglycemia 10/30/2019 11/01/2019 Elevated lactic acid level 10/26/201910/26 Last Assessment & Plan: Assessment/PLAN: Lactic acid elevated in ED, normalized with IV fluids Hold metformin for now Sepsis due to gram-negative UTI 10/25/2019 10/26/2019 Last Assessment & Plan: Assessment/PLAN: He presented to the ED with an episode of high-grade fever, has completed third cycle of chemotherapy for diffuse large B-cell lymphoma last week on 10/17/2019 Noted to have fever of 101 in ED, tachycardic, blood pressure normal Lactate elevated normalized with IV fluids Urinalysis revealed cloudy urine with elevated WBC, urine culture sent Blood culture sent from ED Nephrostomy tube changed on 09/15/2019 Previous urine culture grew Serratia Started on Zosyn in ED, continue Follow-up cultures Neutropenic sepsis 09/13/2019 09/16/2019 Last Assessment & Plan: BC negative. Urine culture result noted. Unable to determine if related to nephrostomy tube. Wait for final rec's from ID for discharge. Nephrostomy status 09/13/2019 05/22/2021 Last Assessment & Plan: Assessment/PLAN: Last changed on 09/15/2019, he has appointment on nephrostomy tube exchange Exchange vs removal pending CT scans with Dr Waterman Onychomycosis 07/21/2017 05/22/2021 Insulin dependent type 2 diabetes mellitus, unco ntrolled 12/11/2016 04/06/2020 Last Assessment & Plan: Assessment/PLAN: Resume home regimen and follow up with PCP Pain in right foot 12/11/2016 12/11/2016 documented as of this encounter (statuses as of 04/25/2022) [facility]01-[facility]-2020 History of Past illness Narrative* Problem Noted Date Resolved Date Hypomagnesemia 10/30/2019 11/01/2019 Last Assessment & Plan: Recent Labs 10/30/19 0615 10/29/19 0615 10/28/19 0600 BUN 13 11 9 CREAT 0.85 0.82 0.77 CA 9.4 9.3 8.9 MG 1.6* 1.7 -- Assessment: Continue supplementation PLAN: Adjustments per mag level Hyperglycemia 10/30/2019 11/01/2019 Elevated lactic acid level 10/26/201910/26 Last Assessment & Plan: Assessment/PLAN: Lactic acid elevated in ED, normalized with IV fluids Hold metformin for now Sepsis due to gram-negative UTI 10/25/2019 10/26/2019 Last Assessment & Plan: Assessment/PLAN: He presented to the ED with an episode of high-grade fever, has completed third cycle of chemotherapy for diffuse large B-cell lymphoma last week on 10/17/2019 Noted to have fever of 101 in ED, tachycardic, blood pressure normal Lactate elevated normalized with IV fluids Urinalysis revealed cloudy urine with elevated WBC, urine culture sent Blood culture sent from ED Nephrostomy tube changed on 09/15/2019 Previous urine culture grew Serratia Started on Zosyn in ED, continue Follow-up cultures Neutropenic sepsis 09/13/2019 09/16/2019 Last Assessment & Plan: BC negative. Urine culture result noted. Unable to determine if related to nephrostomy tube. Wait for final rec's from ID for discharge. Nephrostomy status 09/13/2019 05/22/2021 Last Assessment & Plan: Assessment/PLAN: Last changed on 09/15/2019, he has appointment on nephrostomy tube exchange Exchange vs removal pending CT scans with Dr Waterman Onheroomycsera 07/21/2017 05/22/2021 Insulin dependent type 2 diabetes mellitus, unco ntrolled 12/11/2016 04/06/2020 Last Assessment & Plan: Assessment/PLAN: Resume home regimen and follow up with PCP Pain in right foot 12/11/2016 12/11/2016 documented as of this encounter (statuses as of 04/26/2022) [facility]01-[facility]-2020 History of Past illness Narrative* Problem Noted Date Resolved Date Hypomagnesemia 10/30/2019 11/01/2019 Last Assessment & Plan: Recent Labs 10/30/19 0615 10/29/19 0615 10/28/19 0600 BUN 13 11 9 CREAT 0.85 0.82 0.77 CA 9.4 9.3 8.9 MG 1.6* 1.7 -- Assessment: Continue supplementation PLAN: Adjustments per mag level Hyperglycemia 10/30/2019 11/01/2019 Elevated lactic acid level 10/26/201910/26 Last Assessment & Plan: Assessment/PLAN: Lactic acid elevated in ED, normalized with IV fluids Hold metformin for now Sepsis due to gram-negative UTI 10/25/2019 10/26/2019 Last Assessment & Plan: Assessment/PLAN: He presented to the ED with an episode of high-grade fever, has completed third cycle of chemotherapy for diffuse large B-cell lymphoma last week on 10/17/2019 Noted to have fever of 101 in ED, tachycardic, blood pressure normal Lactate elevated normalized with IV fluids Urinalysis revealed cloudy urine with elevated WBC, urine culture sent Blood culture sent from ED Nephrostomy tube changed on 09/15/2019 Previous urine culture grew Serratia Started on Zosyn in ED, continue Follow-up cultures Neutropenic sepsis 09/13/2019 09/16/2019 Last Assessment & Plan: BC negative. Urine culture result noted. Unable to determine if related to nephrostomy tube. Wait for final rec's from ID for discharge. Nephrostomy status 09/13/2019 05/22/2021 Last Assessment & Plan: Assessment/PLAN: Last changed on 09/15/2019, he has appointment on nephrostomy tube exchange Exchange vs removal pending CT scans with Dr Columba Uriarte 07/21/2017 05/22/2021 Insulin dependent type 2 diabetes mellitus, unco ntrolled 12/11/2016 04/06/2020 Last Assessment & Plan: Assessment/PLAN: Resume home regimen and follow up with PCP Pain in right foot 12/11/2016 12/11/2016 documented as of this encounter (statuses as of 04/26/2022) [facility]01-[facility] History of Past illness Narrative* Problem Noted Date Resolved Date Hypomagnesemia 10/30/2019 11/01/2019 Last Assessment & Plan: Recent Labs 10/30/19 0615 10/29/19 0615 10/28/19 0600 BUN 13 11 9 CREAT 0.85 0.82 0.77 CA 9.4 9.3 8.9 MG 1.6* 1.7 -- Assessment: Continue supplementation PLAN: Adjustments per mag level Hyperglycemia 10/30/2019 11/01/2019 Elevated lactic acid level 10/26/201910/26 Last Assessment & Plan: Assessment/PLAN: Lactic acid elevated in ED, normalized with IV fluids Hold metformin for now Sepsis due to gram-negative UTI 10/25/2019 10/26/2019 Last Assessment & Plan: Assessment/PLAN: He presented to the ED with an episode of high-grade fever, has completed third cycle of chemotherapy for diffuse large B-cell lymphoma last week on 10/17/2019 Noted to have fever of 101 in ED, tachycardic, blood pressure normal Lactate elevated normalized with IV fluids Urinalysis revealed cloudy urine with elevated WBC, urine culture sent Blood culture sent from ED Nephrostomy tube changed on 09/15/2019 Previous urine culture grew Serratia Started on Zosyn in ED, continue Follow-up cultures Neutropenic sepsis 09/13/2019 09/16/2019 Last Assessment & Plan: BC negative. Urine culture result noted. Unable to determine if related to nephrostomy tube. Wait for final rec's from ID for discharge. Nephrostomy status 09/13/2019 05/22/2021 Last Assessment & Plan: Assessment/PLAN: Last changed on 09/15/2019, he has appointment on nephrostomy tube exchange Exchange vs removal pending CT scans with Dr Columba Uriarte 07/21/2017 05/22/2021 Insulin dependent type 2 diabetes mellitus, unco ntrolled 12/11/2016 04/06/2020 Last Assessment & Plan: Assessment/PLAN: Resume home regimen and follow up with PCP Pain in right foot 12/11/2016 12/11/2016 documented as of this encounter (statuses as of 05/01/2022) [facility]01-[facility] History of Past illness Narrative* Problem Noted Date Resolved Date Hypomagnesemia 10/30/2019 11/01/2019 Last Assessment & Plan: Recent Labs 10/30/19 0615 10/29/19 0615 10/28/19 0600 BUN 13 11 9 CREAT 0.85 0.82 0.77 CA 9.4 9.3 8.9 MG 1.6* 1.7 -- Assessment: Continue supplementation PLAN: Adjustments per mag level Hyperglycemia 10/30/2019 11/01/2019 Elevated lactic acid level 10/26/201910/26 Last Assessment & Plan: Assessment/PLAN: Lactic acid elevated in ED, normalized with IV fluids Hold metformin for now Sepsis due to gram-negative UTI 10/25/2019 10/26/2019 Last Assessment & Plan: Assessment/PLAN: He presented to the ED with an episode of high-grade fever, has completed third cycle of chemotherapy for diffuse large B-cell lymphoma last week on 10/17/2019 Noted to have fever of 101 in ED, tachycardic, blood pressure normal Lactate elevated normalized with IV fluids Urinalysis revealed cloudy urine with elevated WBC, urine culture sent Blood culture sent from ED Nephrostomy tube changed on 09/15/2019 Previous urine culture grew Serratia Started on Zosyn in ED, continue Follow-up cultures Neutropenic sepsis 09/13/2019 09/16/2019 Last Assessment & Plan: BC negative. Urine culture result noted. Unable to determine if related to nephrostomy tube. Wait for final rec's from ID for discharge. Nephrostomy status 09/13/2019 05/22/2021 Last Assessment & Plan: Assessment/PLAN: Last changed on 09/15/2019, he has appointment on nephrostomy tube exchange Exchange vs removal pending CT scans with Dr Columba Uriarte 07/21/2017 05/22/2021 Insulin dependent type 2 diabetes mellitus, unco ntrolled 12/11/2016 04/06/2020 Last Assessment & Plan: Assessment/PLAN: Resume home regimen and follow up with PCP Pain in right foot 12/11/2016 12/11/2016 documented as of this encounter (statuses as of 05/14/2022) [facility]01-[facility] History of Past illness Narrative* Problem Noted Date Resolved Date Hypomagnesemia 10/30/2019 11/01/2019 Last Assessment & Plan: Recent Labs 10/30/19 0615 10/29/19 0615 10/28/19 0600 BUN 13 11 9 CREAT 0.85 0.82 0.77 CA 9.4 9.3 8.9 MG 1.6* 1.7 -- Assessment: Continue supplementation PLAN: Adjustments per mag level Hyperglycemia 10/30/2019 11/01/2019 Elevated lactic acid level 10/26/201910/26 Last Assessment & Plan: Assessment/PLAN: Lactic acid elevated in ED, normalized with IV fluids Hold metformin for now Sepsis due to gram-negative UTI 10/25/2019 10/26/2019 Last Assessment & Plan: Assessment/PLAN: He presented to the ED with an episode of high-grade fever, has completed third cycle of chemotherapy for diffuse large B-cell lymphoma last week on 10/17/2019 Noted to have fever of 101 in ED, tachycardic, blood pressure normal Lactate elevated normalized with IV fluids Urinalysis revealed cloudy urine with elevated WBC, urine culture sent Blood culture sent from ED Nephrostomy tube changed on 09/15/2019 Previous urine culture grew Serratia Started on Zosyn in ED, continue Follow-up cultures Neutropenic sepsis 09/13/2019 09/16/2019 Last Assessment & Plan: BC negative. Urine culture result noted. Unable to determine if related to nephrostomy tube. Wait for final rec's from ID for discharge. Nephrostomy status 09/13/2019 05/22/2021 Last Assessment & Plan: Assessment/PLAN: Last changed on 09/15/2019, he has appointment on nephrostomy tube exchange Exchange vs removal pending CT scans with Dr Columba Uriarte 07/21/2017 05/22/2021 Insulin dependent type 2 diabetes mellitus, unco ntrolled 12/11/2016 04/06/2020 Last Assessment & Plan: Assessment/PLAN: Resume home regimen and follow up with PCP Pain in right foot 12/11/2016 12/11/2016 documented as of this encounter (statuses as of 05/19/2022) [facility] History of Past illness Narrative* Problem Noted Date Resolved Date Hypomagnesemia 10/30/2019 11/01/2019 Last Assessment & Plan: Recent Labs 10/30/19 0615 10/29/19 0615 10/28/19 0600 BUN 13 11 9 CREAT 0.85 0.82 0.77 CA 9.4 9.3 8.9 MG 1.6* 1.7 -- Assessment: Continue supplementation PLAN: Adjustments per mag level Hyperglycemia 10/30/2019 11/01/2019 Elevated lactic acid level 10/26/201910/26 Last Assessment & Plan: Assessment/PLAN: Lactic acid elevated in ED, normalized with IV fluids Hold metformin for now Sepsis due to gram-negative UTI 10/25/2019 10/26/2019 Last Assessment & Plan: Assessment/PLAN: He presented to the ED with an episode of high-grade fever, has completed third cycle of chemotherapy for diffuse large B-cell lymphoma last week on 10/17/2019 Noted to have fever of 101 in ED, tachycardic, blood pressure normal Lactate elevated normalized with IV fluids Urinalysis revealed cloudy urine with elevated WBC, urine culture sent Blood culture sent from ED Nephrostomy tube changed on 09/15/2019 Previous urine culture grew Serratia Started on Zosyn in ED, continue Follow-up cultures Neutropenic sepsis 09/13/2019 09/16/2019 Last Assessment & Plan: BC negative. Urine culture result noted. Unable to determine if related to nephrostomy tube. Wait for final rec's from ID for discharge. Nephrostomy status 09/13/2019 05/22/2021 Last Assessment & Plan: Assessment/PLAN: Last changed on 09/15/2019, he has appointment on nephrostomy tube exchange Exchange vs removal pending CT scans with Dr Columba Uriarte 07/21/2017 05/22/2021 Insulin dependent type 2 diabetes mellitus, unco ntrolled 12/11/2016 04/06/2020 Last Assessment & Plan: Assessment/PLAN: Resume home regimen and follow up with PCP Pain in right foot 12/11/2016 12/11/2016 documented as of this encounter (statuses as of 05/20/2022) [facility] History of Past illness Narrative* Problem Noted Date Resolved Date Hypomagnesemia 10/30/2019 11/01/2019 Last Assessment & Plan: Recent Labs 10/30/19 0615 10/29/19 0615 10/28/19 0600 BUN 13 11 9 CREAT 0.85 0.82 0.77 CA 9.4 9.3 8.9 MG 1.6* 1.7 -- Assessment: Continue supplementation PLAN: Adjustments per mag level Hyperglycemia 10/30/2019 11/01/2019 Elevated lactic acid level 10/26/201910/26 Last Assessment & Plan: Assessment/PLAN: Lactic acid elevated in ED, normalized with IV fluids Hold metformin for now Sepsis due to gram-negative UTI 10/25/2019 10/26/2019 Last Assessment & Plan: Assessment/PLAN: He presented to the ED with an episode of high-grade fever, has completed third cycle of chemotherapy for diffuse large B-cell lymphoma last week on 10/17/2019 Noted to have fever of 101 in ED, tachycardic, blood pressure normal Lactate elevated normalized with IV fluids Urinalysis revealed cloudy urine with elevated WBC, urine culture sent Blood culture sent from ED Nephrostomy tube changed on 09/15/2019 Previous urine culture grew Serratia Started on Zosyn in ED, continue Follow-up cultures Neutropenic sepsis 09/13/2019 09/16/2019 Last Assessment & Plan: BC negative. Urine culture result noted. Unable to determine if related to nephrostomy tube. Wait for final rec's from ID for discharge. Nephrostomy status 09/13/2019 05/22/2021 Last Assessment & Plan: Assessment/PLAN: Last changed on 09/15/2019, he has appointment on nephrostomy tube exchange Exchange vs removal pending CT scans with Dr Columba Uriarte 07/21/2017 05/22/2021 Insulin dependent type 2 diabetes mellitus, unco ntrolled 12/11/2016 04/06/2020 Last Assessment & Plan: Assessment/PLAN: Resume home regimen and follow up with PCP Pain in right foot 12/11/2016 12/11/2016 documented as of this encounter (statuses as of 05/20/2022) [facility] History of Past illness Narrative* Problem Noted Date Resolved Date Hypomagnesemia 10/30/2019 11/01/2019 Last Assessment & Plan: Recent Labs 10/30/19 0615 10/29/19 0615 10/28/19 0600 BUN 13 11 9 CREAT 0.85 0.82 0.77 CA 9.4 9.3 8.9 MG 1.6* 1.7 -- Assessment: Continue supplementation PLAN: Adjustments per mag level Hyperglycemia 10/30/2019 11/01/2019 Elevated lactic acid level 10/26/201910/26 Last Assessment & Plan: Assessment/PLAN: Lactic acid elevated in ED, normalized with IV fluids Hold metformin for now Sepsis due to gram-negative UTI 10/25/2019 10/26/2019 Last Assessment & Plan: Assessment/PLAN: He presented to the ED with an episode of high-grade fever, has completed third cycle of chemotherapy for diffuse large B-cell lymphoma last week on 10/17/2019 Noted to have fever of 101 in ED, tachycardic, blood pressure normal Lactate elevated normalized with IV fluids Urinalysis revealed cloudy urine with elevated WBC, urine culture sent Blood culture sent from ED Nephrostomy tube changed on 09/15/2019 Previous urine culture grew Serratia Started on Zosyn in ED, continue Follow-up cultures Neutropenic sepsis 09/13/2019 09/16/2019 Last Assessment & Plan: BC negative. Urine culture result noted. Unable to determine if related to nephrostomy tube. Wait for final rec's from ID for discharge. Nephrostomy status 09/13/2019 05/22/2021 Last Assessment & Plan: Assessment/PLAN: Last changed on 09/15/2019, he has appointment on nephrostomy tube exchange Exchange vs removal pending CT scans with Dr Waterman Onychomycsera 07/21/2017 05/22/2021 Insulin dependent type 2 diabetes mellitus, unco ntrolled 12/11/2016 04/06/2020 Last Assessment & Plan: Assessment/PLAN: Resume home regimen and follow up with PCP Pain in right foot 12/11/2016 12/11/2016 documented as of this encounter (statuses as of 05/22/2022) [facility] History of Past illness Narrative* Problem Noted Date Resolved Date Hypomagnesemia 10/30/2019 11/01/2019 Last Assessment & Plan: Recent Labs 10/30/19 0615 10/29/19 0615 10/28/19 0600 BUN 13 11 9 CREAT 0.85 0.82 0.77 CA 9.4 9.3 8.9 MG 1.6* 1.7 -- Assessment: Continue supplementation PLAN: Adjustments per mag level Hyperglycemia 10/30/2019 11/01/2019 Elevated lactic acid level 10/26/201910/26 Last Assessment & Plan: Assessment/PLAN: Lactic acid elevated in ED, normalized with IV fluids Hold metformin for now Sepsis due to gram-negative UTI 10/25/2019 10/26/2019 Last Assessment & Plan: Assessment/PLAN: He presented to the ED with an episode of high-grade fever, has completed third cycle of chemotherapy for diffuse large B-cell lymphoma last week on 10/17/2019 Noted to have fever of 101 in ED, tachycardic, blood pressure normal Lactate elevated normalized with IV fluids Urinalysis revealed cloudy urine with elevated WBC, urine culture sent Blood culture sent from ED Nephrostomy tube changed on 09/15/2019 Previous urine culture grew Serratia Started on Zosyn in ED, continue Follow-up cultures Neutropenic sepsis 09/13/2019 09/16/2019 Last Assessment & Plan: BC negative. Urine culture result noted. Unable to determine if related to nephrostomy tube. Wait for final rec's from ID for discharge. Nephrostomy status 09/13/2019 05/22/2021 Last Assessment & Plan: Assessment/PLAN: Last changed on 09/15/2019, he has appointment on nephrostomy tube exchange Exchange vs removal pending CT scans with Dr Columba Uriarte 07/21/2017 05/22/2021 Insulin dependent type 2 diabetes mellitus, unco ntrolled 12/11/2016 04/06/2020 Last Assessment & Plan: Assessment/PLAN: Resume home regimen and follow up with PCP Pain in right foot 12/11/2016 12/11/2016 documented as of this encounter (statuses as of 05/26/2022) [facility] History of Past illness Narrative* Problem Noted Date Resolved Date Hypomagnesemia 10/30/2019 11/01/2019 Last Assessment & Plan: Recent Labs 10/30/19 0615 10/29/19 0615 10/28/19 0600 BUN 13 11 9 CREAT 0.85 0.82 0.77 CA 9.4 9.3 8.9 MG 1.6* 1.7 -- Assessment: Continue supplementation PLAN: Adjustments per mag level Hyperglycemia 10/30/2019 11/01/2019 Elevated lactic acid level 10/26/201910/26 Last Assessment & Plan: Assessment/PLAN: Lactic acid elevated in ED, normalized with IV fluids Hold metformin for now Sepsis due to gram-negative UTI 10/25/2019 10/26/2019 Last Assessment & Plan: Assessment/PLAN: He presented to the ED with an episode of high-grade fever, has completed third cycle of chemotherapy for diffuse large B-cell lymphoma last week on 10/17/2019 Noted to have fever of 101 in ED, tachycardic, blood pressure normal Lactate elevated normalized with IV fluids Urinalysis revealed cloudy urine with elevated WBC, urine culture sent Blood culture sent from ED Nephrostomy tube changed on 09/15/2019 Previous urine culture grew Serratia Started on Zosyn in ED, continue Follow-up cultures Neutropenic sepsis 09/13/2019 09/16/2019 Last Assessment & Plan: BC negative. Urine culture result noted. Unable to determine if related to nephrostomy tube. Wait for final rec's from ID for discharge. Nephrostomy status 09/13/2019 05/22/2021 Last Assessment & Plan: Assessment/PLAN: Last changed on 09/15/2019, he has appointment on nephrostomy tube exchange Exchange vs removal pending CT scans with Dr Columba Uriarte 07/21/2017 05/22/2021 Insulin dependent type 2 diabetes mellitus, unco ntrolled 12/11/2016 04/06/2020 Last Assessment & Plan: Assessment/PLAN: Resume home regimen and follow up with PCP Pain in right foot 12/11/2016 12/11/2016 documented as of this encounter (statuses as of 06/02/2022) [facility]01-05-2020 History of Past illness Narrative* Problem Noted Date Resolved Date Hypomagnesemia 10/30/2019 11/01/2019 Last Assessment & Plan: Recent Labs 10/30/19 0615 10/29/19 0615 10/28/19 0600 BUN 13 11 9 CREAT 0.85 0.82 0.77 CA 9.4 9.3 8.9 MG 1.6* 1.7 -- Assessment: Continue supplementation PLAN: Adjustments per mag level Hyperglycemia 10/30/2019 11/01/2019 Elevated lactic acid level 10/26/201910/26 Last Assessment & Plan: Assessment/PLAN: Lactic acid elevated in ED, normalized with IV fluids Hold metformin for now Sepsis due to gram-negative UTI 10/25/2019 10/26/2019 Last Assessment & Plan: Assessment/PLAN: He presented to the ED with an episode of high-grade fever, has completed third cycle of chemotherapy for diffuse large B-cell lymphoma last week on 10/17/2019 Noted to have fever of 101 in ED, tachycardic, blood pressure normal Lactate elevated normalized with IV fluids Urinalysis revealed cloudy urine with elevated WBC, urine culture sent Blood culture sent from ED Nephrostomy tube changed on 09/15/2019 Previous urine culture grew Serratia Started on Zosyn in ED, continue Follow-up cultures Neutropenic sepsis 09/13/2019 09/16/2019 Last Assessment & Plan: BC negative. Urine culture result noted. Unable to determine if related to nephrostomy tube. Wait for final rec's from ID for discharge. Nephrostomy status 09/13/2019 05/22/2021 Last Assessment & Plan: Assessment/PLAN: Last changed on 09/15/2019, he has appointment on nephrostomy tube exchange Exchange vs removal pending CT scans with Dr Columba Uriarte 07/21/2017 05/22/2021 Insulin dependent type 2 diabetes mellitus, unco ntrolled 12/11/2016 04/06/2020 Last Assessment & Plan: Assessment/PLAN: Resume home regimen and follow up with PCP Pain in right foot 12/11/2016 12/11/2016 documented as of this encounter (statuses as of 06/17/2022) [facility]01-05-2020 History of Past illness Narrative* Problem Noted Date Resolved Date Hypomagnesemia 10/30/2019 11/01/2019 Last Assessment & Plan: Recent Labs 10/30/19 0615 10/29/19 0615 10/28/19 0600 BUN 13 11 9 CREAT 0.85 0.82 0.77 CA 9.4 9.3 8.9 MG 1.6* 1.7 -- Assessment: Continue supplementation PLAN: Adjustments per mag level Hyperglycemia 10/30/2019 11/01/2019 Elevated lactic acid level 10/26/201910/26 Last Assessment & Plan: Assessment/PLAN: Lactic acid elevated in ED, normalized with IV fluids Hold metformin for now Sepsis due to gram-negative UTI 10/25/2019 10/26/2019 Last Assessment & Plan: Assessment/PLAN: He presented to the ED with an episode of high-grade fever, has completed third cycle of chemotherapy for diffuse large B-cell lymphoma last week on 10/17/2019 Noted to have fever of 101 in ED, tachycardic, blood pressure normal Lactate elevated normalized with IV fluids Urinalysis revealed cloudy urine with elevated WBC, urine culture sent Blood culture sent from ED Nephrostomy tube changed on 09/15/2019 Previous urine culture grew Serratia Started on Zosyn in ED, continue Follow-up cultures Neutropenic sepsis 09/13/2019 09/16/2019 Last Assessment & Plan: BC negative. Urine culture result noted. Unable to determine if related to nephrostomy tube. Wait for final rec's from ID for discharge. Nephrostomy status 09/13/2019 05/22/2021 Last Assessment & Plan: Assessment/PLAN: Last changed on 09/15/2019, he has appointment on nephrostomy tube exchange Exchange vs removal pending CT scans with Dr Columba Uriarte 07/21/2017 05/22/2021 Insulin dependent type 2 diabetes mellitus, unco ntrolled 12/11/2016 04/06/2020 Last Assessment & Plan: Assessment/PLAN: Resume home regimen and follow up with PCP Pain in right foot 12/11/2016 12/11/2016 documented as of this encounter (statuses as of 06/20/2022) [facility]01-[facility]-2020 History of Past illness Narrative* Problem Noted Date Resolved Date Hypomagnesemia 10/30/2019 11/01/2019 Last Assessment & Plan: Recent Labs 10/30/19 0615 10/29/19 0615 10/28/19 0600 BUN 13 11 9 CREAT 0.85 0.82 0.77 CA 9.4 9.3 8.9 MG 1.6* 1.7 -- Assessment: Continue supplementation PLAN: Adjustments per mag level Hyperglycemia 10/30/2019 11/01/2019 Elevated lactic acid level 10/26/201910/26 Last Assessment & Plan: Assessment/PLAN: Lactic acid elevated in ED, normalized with IV fluids Hold metformin for now Sepsis due to gram-negative UTI 10/25/2019 10/26/2019 Last Assessment & Plan: Assessment/PLAN: He presented to the ED with an episode of high-grade fever, has completed third cycle of chemotherapy for diffuse large B-cell lymphoma last week on 10/17/2019 Noted to have fever of 101 in ED, tachycardic, blood pressure normal Lactate elevated normalized with IV fluids Urinalysis revealed cloudy urine with elevated WBC, urine culture sent Blood culture sent from ED Nephrostomy tube changed on 09/15/2019 Previous urine culture grew Serratia Started on Zosyn in ED, continue Follow-up cultures Neutropenic sepsis 09/13/2019 09/16/2019 Last Assessment & Plan: BC negative. Urine culture result noted. Unable to determine if related to nephrostomy tube. Wait for final rec's from ID for discharge. Nephrostomy status 09/13/2019 05/22/2021 Last Assessment & Plan: Assessment/PLAN: Last changed on 09/15/2019, he has appointment on nephrostomy tube exchange Exchange vs removal pending CT scans with Dr Columba Uriarte 07/21/2017 05/22/2021 Insulin dependent type 2 diabetes mellitus, unco ntrolled 12/11/2016 04/06/2020 Last Assessment & Plan: Assessment/PLAN: Resume home regimen and follow up with PCP Pain in right foot 12/11/2016 12/11/2016 documented as of this encounter (statuses as of 06/25/2022) [facility] History of Past illness Narrative* Problem Noted Date Resolved Date Hypomagnesemia 10/30/2019 11/01/2019 Last Assessment & Plan: Recent Labs 10/30/19 0615 10/29/19 0615 10/28/19 0600 BUN 13 11 9 CREAT 0.85 0.82 0.77 CA 9.4 9.3 8.9 MG 1.6* 1.7 -- Assessment: Continue supplementation PLAN: Adjustments per mag level Hyperglycemia 10/30/2019 11/01/2019 Elevated lactic acid level 10/26/201910/26 Last Assessment & Plan: Assessment/PLAN: Lactic acid elevated in ED, normalized with IV fluids Hold metformin for now Sepsis due to gram-negative UTI 10/25/2019 10/26/2019 Last Assessment & Plan: Assessment/PLAN: He presented to the ED with an episode of high-grade fever, has completed third cycle of chemotherapy for diffuse large B-cell lymphoma last week on 10/17/2019 Noted to have fever of 101 in ED, tachycardic, blood pressure normal Lactate elevated normalized with IV fluids Urinalysis revealed cloudy urine with elevated WBC, urine culture sent Blood culture sent from ED Nephrostomy tube changed on 09/15/2019 Previous urine culture grew Serratia Started on Zosyn in ED, continue Follow-up cultures Neutropenic sepsis 09/13/2019 09/16/2019 Last Assessment & Plan: BC negative. Urine culture result noted. Unable to determine if related to nephrostomy tube. Wait for final rec's from ID for discharge. Nephrostomy status 09/13/2019 05/22/2021 Last Assessment & Plan: Assessment/PLAN: Last changed on 09/15/2019, he has appointment on nephrostomy tube exchange Exchange vs removal pending CT scans with Dr Columba Uriarte 07/21/2017 05/22/2021 Insulin dependent type 2 diabetes mellitus, unco ntrolled 12/11/2016 04/06/2020 Last Assessment & Plan: Assessment/PLAN: Resume home regimen and follow up with PCP Pain in right foot 12/11/2016 12/11/2016 documented as of this encounter (statuses as of 07/01/2022) [facility]01-[facility] History of Past illness Narrative* Problem Noted Date Resolved Date Hypomagnesemia 10/30/2019 11/01/2019 Last Assessment & Plan: Recent Labs 10/30/19 0615 10/29/19 0615 10/28/19 0600 BUN 13 11 9 CREAT 0.85 0.82 0.77 CA 9.4 9.3 8.9 MG 1.6* 1.7 -- Assessment: Continue supplementation PLAN: Adjustments per mag level Hyperglycemia 10/30/2019 11/01/2019 Elevated lactic acid level 10/26/201910/26 Last Assessment & Plan: Assessment/PLAN: Lactic acid elevated in ED, normalized with IV fluids Hold metformin for now Sepsis due to gram-negative UTI 10/25/2019 10/26/2019 Last Assessment & Plan: Assessment/PLAN: He presented to the ED with an episode of high-grade fever, has completed third cycle of chemotherapy for diffuse large B-cell lymphoma last week on 10/17/2019 Noted to have fever of 101 in ED, tachycardic, blood pressure normal Lactate elevated normalized with IV fluids Urinalysis revealed cloudy urine with elevated WBC, urine culture sent Blood culture sent from ED Nephrostomy tube changed on 09/15/2019 Previous urine culture grew Serratia Started on Zosyn in ED, continue Follow-up cultures Neutropenic sepsis 09/13/2019 09/16/2019 Last Assessment & Plan: BC negative. Urine culture result noted. Unable to determine if related to nephrostomy tube. Wait for final rec's from ID for discharge. Nephrostomy status 09/13/2019 05/22/2021 Last Assessment & Plan: Assessment/PLAN: Last changed on 09/15/2019, he has appointment on nephrostomy tube exchange Exchange vs removal pending CT scans with Dr Columba Uriarte 07/21/2017 05/22/2021 Insulin dependent type 2 diabetes mellitus, unco ntrolled 12/11/2016 04/06/2020 Last Assessment & Plan: Assessment/PLAN: Resume home regimen and follow up with PCP Pain in right foot 12/11/2016 12/11/2016 documented as of this encounter (statuses as of 07/17/2022) [facility] History of Past illness Narrative* Problem Noted Date Resolved Date Hypomagnesemia 10/30/2019 11/01/2019 Last Assessment & Plan: Recent Labs 10/30/19 0615 10/29/19 0615 10/28/19 0600 BUN 13 11 9 CREAT 0.85 0.82 0.77 CA 9.4 9.3 8.9 MG 1.6* 1.7 -- Assessment: Continue supplementation PLAN: Adjustments per mag level Hyperglycemia 10/30/2019 11/01/2019 Elevated lactic acid level 10/26/201910/26 Last Assessment & Plan: Assessment/PLAN: Lactic acid elevated in ED, normalized with IV fluids Hold metformin for now Sepsis due to gram-negative UTI 10/25/2019 10/26/2019 Last Assessment & Plan: Assessment/PLAN: He presented to the ED with an episode of high-grade fever, has completed third cycle of chemotherapy for diffuse large B-cell lymphoma last week on 10/17/2019 Noted to have fever of 101 in ED, tachycardic, blood pressure normal Lactate elevated normalized with IV fluids Urinalysis revealed cloudy urine with elevated WBC, urine culture sent Blood culture sent from ED Nephrostomy tube changed on 09/15/2019 Previous urine culture grew Serratia Started on Zosyn in ED, continue Follow-up cultures Neutropenic sepsis 09/13/2019 09/16/2019 Last Assessment & Plan: BC negative. Urine culture result noted. Unable to determine if related to nephrostomy tube. Wait for final rec's from ID for discharge. Nephrostomy status 09/13/2019 05/22/2021 Last Assessment & Plan: Assessment/PLAN: Last changed on 09/15/2019, he has appointment on nephrostomy tube exchange Exchange vs removal pending CT scans with Dr Columba Rosaomycsera 07/21/2017 05/22/2021 Insulin dependent type 2 diabetes mellitus, unco ntrolled 12/11/2016 04/06/2020 Last Assessment & Plan: Assessment/PLAN: Resume home regimen and follow up with PCP Pain in right foot 12/11/2016 12/11/2016 documented as of this encounter (statuses as of 07/31/2022) [facility] History of Past illness Narrative* Problem Noted Date Resolved Date Hypomagnesemia 10/30/2019 11/01/2019 Last Assessment & Plan: Recent Labs 10/30/19 0615 10/29/19 0615 10/28/19 0600 BUN 13 11 9 CREAT 0.85 0.82 0.77 CA 9.4 9.3 8.9 MG 1.6* 1.7 -- Assessment: Continue supplementation PLAN: Adjustments per mag level Hyperglycemia 10/30/2019 11/01/2019 Elevated lactic acid level 10/26/201910/26 Last Assessment & Plan: Assessment/PLAN: Lactic acid elevated in ED, normalized with IV fluids Hold metformin for now Sepsis due to gram-negative UTI 10/25/2019 10/26/2019 Last Assessment & Plan: Assessment/PLAN: He presented to the ED with an episode of high-grade fever, has completed third cycle of chemotherapy for diffuse large B-cell lymphoma last week on 10/17/2019 Noted to have fever of 101 in ED, tachycardic, blood pressure normal Lactate elevated normalized with IV fluids Urinalysis revealed cloudy urine with elevated WBC, urine culture sent Blood culture sent from ED Nephrostomy tube changed on 09/15/2019 Previous urine culture grew Serratia Started on Zosyn in ED, continue Follow-up cultures Neutropenic sepsis 09/13/2019 09/16/2019 Last Assessment & Plan: BC negative. Urine culture result noted. Unable to determine if related to nephrostomy tube. Wait for final rec's from ID for discharge. Nephrostomy status 09/13/2019 05/22/2021 Last Assessment & Plan: Assessment/PLAN: Last changed on 09/15/2019, he has appointment on nephrostomy tube exchange Exchange vs removal pending CT scans with Dr Waterman Onychomycosis 07/21/2017 05/22/2021 Insulin dependent type 2 diabetes mellitus, unco ntrolled 12/11/2016 04/06/2020 Last Assessment & Plan: Assessment/PLAN: Resume home regimen and follow up with PCP Pain in right foot 12/11/2016 12/11/2016 documented as of this encounter (statuses as of 08/01/2022) [facility] History of Past illness Narrative* Problem Noted Date Resolved Date Hypomagnesemia 10/30/2019 11/01/2019 Last Assessment & Plan: Recent Labs 10/30/19 0615 10/29/19 0615 10/28/19 0600 BUN 13 11 9 CREAT 0.85 0.82 0.77 CA 9.4 9.3 8.9 MG 1.6* 1.7 -- Assessment: Continue supplementation PLAN: Adjustments per mag level Hyperglycemia 10/30/2019 11/01/2019 Elevated lactic acid level 10/26/201910/26 Last Assessment & Plan: Assessment/PLAN: Lactic acid elevated in ED, normalized with IV fluids Hold metformin for now Sepsis due to gram-negative UTI 10/25/2019 10/26/2019 Last Assessment & Plan: Assessment/PLAN: He presented to the ED with an episode of high-grade fever, has completed third cycle of chemotherapy for diffuse large B-cell lymphoma last week on 10/17/2019 Noted to have fever of 101 in ED, tachycardic, blood pressure normal Lactate elevated normalized with IV fluids Urinalysis revealed cloudy urine with elevated WBC, urine culture sent Blood culture sent from ED Nephrostomy tube changed on 09/15/2019 Previous urine culture grew Serratia Started on Zosyn in ED, continue Follow-up cultures Neutropenic sepsis 09/13/2019 09/16/2019 Last Assessment & Plan: BC negative. Urine culture result noted. Unable to determine if related to nephrostomy tube. Wait for final rec's from ID for discharge. Nephrostomy status 09/13/2019 05/22/2021 Last Assessment & Plan: Assessment/PLAN: Last changed on 09/15/2019, he has appointment on nephrostomy tube exchange Exchange vs removal pending CT scans with Dr Columba Uriarte 07/21/2017 05/22/2021 Insulin dependent type 2 diabetes mellitus, unco ntrolled 12/11/2016 04/06/2020 Last Assessment & Plan: Assessment/PLAN: Resume home regimen and follow up with PCP Pain in right foot 12/11/2016 12/11/2016 documented as of this encounter (statuses as of 08/01/2022) [facility] History of Past illness Narrative* Problem Noted Date Resolved Date Hypomagnesemia 10/30/2019 11/01/2019 Last Assessment & Plan: Recent Labs 10/30/19 0615 10/29/19 0615 10/28/19 0600 BUN 13 11 9 CREAT 0.85 0.82 0.77 CA 9.4 9.3 8.9 MG 1.6* 1.7 -- Assessment: Continue supplementation PLAN: Adjustments per mag level Hyperglycemia 10/30/2019 11/01/2019 Elevated lactic acid level 10/26/201910/26 Last Assessment & Plan: Assessment/PLAN: Lactic acid elevated in ED, normalized with IV fluids Hold metformin for now Sepsis due to gram-negative UTI 10/25/2019 10/26/2019 Last Assessment & Plan: Assessment/PLAN: He presented to the ED with an episode of high-grade fever, has completed third cycle of chemotherapy for diffuse large B-cell lymphoma last week on 10/17/2019 Noted to have fever of 101 in ED, tachycardic, blood pressure normal Lactate elevated normalized with IV fluids Urinalysis revealed cloudy urine with elevated WBC, urine culture sent Blood culture sent from ED Nephrostomy tube changed on 09/15/2019 Previous urine culture grew Serratia Started on Zosyn in ED, continue Follow-up cultures Neutropenic sepsis 09/13/2019 09/16/2019 Last Assessment & Plan: BC negative. Urine culture result noted. Unable to determine if related to nephrostomy tube. Wait for final rec's from ID for discharge. Nephrostomy status 09/13/2019 05/22/2021 Last Assessment & Plan: Assessment/PLAN: Last changed on 09/15/2019, he has appointment on nephrostomy tube exchange Exchange vs removal pending CT scans with Dr Columba Uriarte 07/21/2017 05/22/2021 Insulin dependent type 2 diabetes mellitus, unco ntrolled 12/11/2016 04/06/2020 Last Assessment & Plan: Assessment/PLAN: Resume home regimen and follow up with PCP Pain in right foot 12/11/2016 12/11/2016 documented as of this encounter (statuses as of 08/04/2022) [facility] History of Past illness Narrative* Problem Noted Date Resolved Date Hypomagnesemia 10/30/2019 11/01/2019 Last Assessment & Plan: Recent Labs 10/30/19 0615 10/29/19 0615 10/28/19 0600 BUN 13 11 9 CREAT 0.85 0.82 0.77 CA 9.4 9.3 8.9 MG 1.6* 1.7 -- Assessment: Continue supplementation PLAN: Adjustments per mag level Hyperglycemia 10/30/2019 11/01/2019 Elevated lactic acid level 10/26/201910/26 Last Assessment & Plan: Assessment/PLAN: Lactic acid elevated in ED, normalized with IV fluids Hold metformin for now Sepsis due to gram-negative UTI 10/25/2019 10/26/2019 Last Assessment & Plan: Assessment/PLAN: He presented to the ED with an episode of high-grade fever, has completed third cycle of chemotherapy for diffuse large B-cell lymphoma last week on 10/17/2019 Noted to have fever of 101 in ED, tachycardic, blood pressure normal Lactate elevated normalized with IV fluids Urinalysis revealed cloudy urine with elevated WBC, urine culture sent Blood culture sent from ED Nephrostomy tube changed on 09/15/2019 Previous urine culture grew Serratia Started on Zosyn in ED, continue Follow-up cultures Neutropenic sepsis 09/13/2019 09/16/2019 Last Assessment & Plan: BC negative. Urine culture result noted. Unable to determine if related to nephrostomy tube. Wait for final rec's from ID for discharge. Nephrostomy status 09/13/2019 05/22/2021 Last Assessment & Plan: Assessment/PLAN: Last changed on 09/15/2019, he has appointment on nephrostomy tube exchange Exchange vs removal pending CT scans with Dr Waterman Onheroomycsera 07/21/2017 05/22/2021 Insulin dependent type 2 diabetes mellitus, unco ntrolled 12/11/2016 04/06/2020 Last Assessment & Plan: Assessment/PLAN: Resume home regimen and follow up with PCP Pain in right foot 12/11/2016 12/11/2016 documented as of this encounter (statuses as of 08/13/2022) [facility] History of Past illness Narrative* Problem Noted Date Resolved Date Hypomagnesemia 10/30/2019 11/01/2019 Last Assessment & Plan: Recent Labs 10/30/19 0615 10/29/19 0615 10/28/19 0600 BUN 13 11 9 CREAT 0.85 0.82 0.77 CA 9.4 9.3 8.9 MG 1.6* 1.7 -- Assessment: Continue supplementation PLAN: Adjustments per mag level Hyperglycemia 10/30/2019 11/01/2019 Elevated lactic acid level 10/26/201910/26 Last Assessment & Plan: Assessment/PLAN: Lactic acid elevated in ED, normalized with IV fluids Hold metformin for now Sepsis due to gram-negative UTI 10/25/2019 10/26/2019 Last Assessment & Plan: Assessment/PLAN: He presented to the ED with an episode of high-grade fever, has completed third cycle of chemotherapy for diffuse large B-cell lymphoma last week on 10/17/2019 Noted to have fever of 101 in ED, tachycardic, blood pressure normal Lactate elevated normalized with IV fluids Urinalysis revealed cloudy urine with elevated WBC, urine culture sent Blood culture sent from ED Nephrostomy tube changed on 09/15/2019 Previous urine culture grew Serratia Started on Zosyn in ED, continue Follow-up cultures Neutropenic sepsis 09/13/2019 09/16/2019 Last Assessment & Plan: BC negative. Urine culture result noted. Unable to determine if related to nephrostomy tube. Wait for final rec's from ID for discharge. Nephrostomy status 09/13/2019 05/22/2021 Last Assessment & Plan: Assessment/PLAN: Last changed on 09/15/2019, he has appointment on nephrostomy tube exchange Exchange vs removal pending CT scans with Dr Waterman Onychomycsera 07/21/2017 05/22/2021 Insulin dependent type 2 diabetes mellitus, unco ntrolled 12/11/2016 04/06/2020 Last Assessment & Plan: Assessment/PLAN: Resume home regimen and follow up with PCP Pain in right foot 12/11/2016 12/11/2016 documented as of this encounter (statuses as of 08/15/2022) [facility] History of Past illness Narrative* Problem Noted Date Resolved Date Hypomagnesemia 10/30/2019 11/01/2019 Last Assessment & Plan: Recent Labs 10/30/19 0615 10/29/19 0615 10/28/19 0600 BUN 13 11 9 CREAT 0.85 0.82 0.77 CA 9.4 9.3 8.9 MG 1.6* 1.7 -- Assessment: Continue supplementation PLAN: Adjustments per mag level Hyperglycemia 10/30/2019 11/01/2019 Elevated lactic acid level 10/26/201910/26 Last Assessment & Plan: Assessment/PLAN: Lactic acid elevated in ED, normalized with IV fluids Hold metformin for now Sepsis due to gram-negative UTI 10/25/2019 10/26/2019 Last Assessment & Plan: Assessment/PLAN: He presented to the ED with an episode of high-grade fever, has completed third cycle of chemotherapy for diffuse large B-cell lymphoma last week on 10/17/2019 Noted to have fever of 101 in ED, tachycardic, blood pressure normal Lactate elevated normalized with IV fluids Urinalysis revealed cloudy urine with elevated WBC, urine culture sent Blood culture sent from ED Nephrostomy tube changed on 09/15/2019 Previous urine culture grew Serratia Started on Zosyn in ED, continue Follow-up cultures Neutropenic sepsis 09/13/2019 09/16/2019 Last Assessment & Plan: BC negative. Urine culture result noted. Unable to determine if related to nephrostomy tube. Wait for final rec's from ID for discharge. Nephrostomy status 09/13/2019 05/22/2021 Last Assessment & Plan: Assessment/PLAN: Last changed on 09/15/2019, he has appointment on nephrostomy tube exchange Exchange vs removal pending CT scans with Dr Waterman Onheroomycsera 07/21/2017 05/22/2021 Insulin dependent type 2 diabetes mellitus, unco ntrolled 12/11/2016 04/06/2020 Last Assessment & Plan: Assessment/PLAN: Resume home regimen and follow up with PCP Pain in right foot 12/11/2016 12/11/2016 documented as of this encounter (statuses as of 08/15/2022) [facility]01-05-2020 History of Past illness Narrative* Problem Noted Date Resolved Date Hypomagnesemia 10/30/2019 11/01/2019 Last Assessment & Plan: Recent Labs 10/30/19 0615 10/29/19 0615 10/28/19 0600 BUN 13 11 9 CREAT 0.85 0.82 0.77 CA 9.4 9.3 8.9 MG 1.6* 1.7 -- Assessment: Continue supplementation PLAN: Adjustments per mag level Hyperglycemia 10/30/2019 11/01/2019 Elevated lactic acid level 10/26/201910/26 Last Assessment & Plan: Assessment/PLAN: Lactic acid elevated in ED, normalized with IV fluids Hold metformin for now Sepsis due to gram-negative UTI 10/25/2019 10/26/2019 Last Assessment & Plan: Assessment/PLAN: He presented to the ED with an episode of high-grade fever, has completed third cycle of chemotherapy for diffuse large B-cell lymphoma last week on 10/17/2019 Noted to have fever of 101 in ED, tachycardic, blood pressure normal Lactate elevated normalized with IV fluids Urinalysis revealed cloudy urine with elevated WBC, urine culture sent Blood culture sent from ED Nephrostomy tube changed on 09/15/2019 Previous urine culture grew Serratia Started on Zosyn in ED, continue Follow-up cultures Neutropenic sepsis 09/13/2019 09/16/2019 Last Assessment & Plan: BC negative. Urine culture result noted. Unable to determine if related to nephrostomy tube. Wait for final rec's from ID for discharge. Nephrostomy status 09/13/2019 05/22/2021 Last Assessment & Plan: Assessment/PLAN: Last changed on 09/15/2019, he has appointment on nephrostomy tube exchange Exchange vs removal pending CT scans with Dr Columba Uriarte 07/21/2017 05/22/2021 Insulin dependent type 2 diabetes mellitus, unco ntrolled 12/11/2016 04/06/2020 Last Assessment & Plan: Assessment/PLAN: Resume home regimen and follow up with PCP Pain in right foot 12/11/2016 12/11/2016 documented as of this encounter (statuses as of 08/16/2022) [facility]01-[facility]-2020 History of Past illness Narrative* Problem Noted Date Resolved Date Hypomagnesemia 10/30/2019 11/01/2019 Last Assessment & Plan: Recent Labs 10/30/19 0615 10/29/19 0615 10/28/19 0600 BUN 13 11 9 CREAT 0.85 0.82 0.77 CA 9.4 9.3 8.9 MG 1.6* 1.7 -- Assessment: Continue supplementation PLAN: Adjustments per mag level Hyperglycemia 10/30/2019 11/01/2019 Elevated lactic acid level 10/26/201910/26 Last Assessment & Plan: Assessment/PLAN: Lactic acid elevated in ED, normalized with IV fluids Hold metformin for now Sepsis due to gram-negative UTI 10/25/2019 10/26/2019 Last Assessment & Plan: Assessment/PLAN: He presented to the ED with an episode of high-grade fever, has completed third cycle of chemotherapy for diffuse large B-cell lymphoma last week on 10/17/2019 Noted to have fever of 101 in ED, tachycardic, blood pressure normal Lactate elevated normalized with IV fluids Urinalysis revealed cloudy urine with elevated WBC, urine culture sent Blood culture sent from ED Nephrostomy tube changed on 09/15/2019 Previous urine culture grew Serratia Started on Zosyn in ED, continue Follow-up cultures Neutropenic sepsis 09/13/2019 09/16/2019 Last Assessment & Plan: BC negative. Urine culture result noted. Unable to determine if related to nephrostomy tube. Wait for final rec's from ID for discharge. Nephrostomy status 09/13/2019 05/22/2021 Last Assessment & Plan: Assessment/PLAN: Last changed on 09/15/2019, he has appointment on nephrostomy tube exchange Exchange vs removal pending CT scans with Dr Columba Uriarte 07/21/2017 05/22/2021 Insulin dependent type 2 diabetes mellitus, unco ntrolled 12/11/2016 04/06/2020 Last Assessment & Plan: Assessment/PLAN: Resume home regimen and follow up with PCP Pain in right foot 12/11/2016 12/11/2016 documented as of this encounter (statuses as of 08/16/2022) [facility]01-[facility] History of Past illness Narrative* Problem Noted Date Resolved Date Hypomagnesemia 10/30/2019 11/01/2019 Last Assessment & Plan: Recent Labs 10/30/19 0615 10/29/19 0615 10/28/19 0600 BUN 13 11 9 CREAT 0.85 0.82 0.77 CA 9.4 9.3 8.9 MG 1.6* 1.7 -- Assessment: Continue supplementation PLAN: Adjustments per mag level Hyperglycemia 10/30/2019 11/01/2019 Elevated lactic acid level 10/26/201910/26 Last Assessment & Plan: Assessment/PLAN: Lactic acid elevated in ED, normalized with IV fluids Hold metformin for now Sepsis due to gram-negative UTI 10/25/2019 10/26/2019 Last Assessment & Plan: Assessment/PLAN: He presented to the ED with an episode of high-grade fever, has completed third cycle of chemotherapy for diffuse large B-cell lymphoma last week on 10/17/2019 Noted to have fever of 101 in ED, tachycardic, blood pressure normal Lactate elevated normalized with IV fluids Urinalysis revealed cloudy urine with elevated WBC, urine culture sent Blood culture sent from ED Nephrostomy tube changed on 09/15/2019 Previous urine culture grew Serratia Started on Zosyn in ED, continue Follow-up cultures Neutropenic sepsis 09/13/2019 09/16/2019 Last Assessment & Plan: BC negative. Urine culture result noted. Unable to determine if related to nephrostomy tube. Wait for final rec's from ID for discharge. Nephrostomy status 09/13/2019 05/22/2021 Last Assessment & Plan: Assessment/PLAN: Last changed on 09/15/2019, he has appointment on nephrostomy tube exchange Exchange vs removal pending CT scans with Dr Columba Uriarte 07/21/2017 05/22/2021 Insulin dependent type 2 diabetes mellitus, unco ntrolled 12/11/2016 04/06/2020 Last Assessment & Plan: Assessment/PLAN: Resume home regimen and follow up with PCP Pain in right foot 12/11/2016 12/11/2016 documented as of this encounter (statuses as of 08/21/2022) [facility]01-[facility] History of Past illness Narrative* Problem Noted Date Resolved Date Hypomagnesemia 10/30/2019 11/01/2019 Last Assessment & Plan: Recent Labs 10/30/19 0615 10/29/19 0615 10/28/19 0600 BUN 13 11 9 CREAT 0.85 0.82 0.77 CA 9.4 9.3 8.9 MG 1.6* 1.7 -- Assessment: Continue supplementation PLAN: Adjustments per mag level Hyperglycemia 10/30/2019 11/01/2019 Elevated lactic acid level 10/26/201910/26 Last Assessment & Plan: Assessment/PLAN: Lactic acid elevated in ED, normalized with IV fluids Hold metformin for now Sepsis due to gram-negative UTI 10/25/2019 10/26/2019 Last Assessment & Plan: Assessment/PLAN: He presented to the ED with an episode of high-grade fever, has completed third cycle of chemotherapy for diffuse large B-cell lymphoma last week on 10/17/2019 Noted to have fever of 101 in ED, tachycardic, blood pressure normal Lactate elevated normalized with IV fluids Urinalysis revealed cloudy urine with elevated WBC, urine culture sent Blood culture sent from ED Nephrostomy tube changed on 09/15/2019 Previous urine culture grew Serratia Started on Zosyn in ED, continue Follow-up cultures Neutropenic sepsis 09/13/2019 09/16/2019 Last Assessment & Plan: BC negative. Urine culture result noted. Unable to determine if related to nephrostomy tube. Wait for final rec's from ID for discharge. Nephrostomy status 09/13/2019 05/22/2021 Last Assessment & Plan: Assessment/PLAN: Last changed on 09/15/2019, he has appointment on nephrostomy tube exchange Exchange vs removal pending CT scans with Dr Columba Uriarte 07/21/2017 05/22/2021 Insulin dependent type 2 diabetes mellitus, unco ntrolled 12/11/2016 04/06/2020 Last Assessment & Plan: Assessment/PLAN: Resume home regimen and follow up with PCP Pain in right foot 12/11/2016 12/11/2016 documented as of this encounter (statuses as of 08/21/2022) [facility]01-[facility]2020 History of Past illness Narrative* Problem Noted Date Resolved Date Hypomagnesemia 10/30/2019 11/01/2019 Last Assessment & Plan: Recent Labs 10/30/19 0615 10/29/19 0615 10/28/19 0600 BUN 13 11 9 CREAT 0.85 0.82 0.77 CA 9.4 9.3 8.9 MG 1.6* 1.7 -- Assessment: Continue supplementation PLAN: Adjustments per mag level Hyperglycemia 10/30/2019 11/01/2019 Elevated lactic acid level 10/26/201910/26 Last Assessment & Plan: Assessment/PLAN: Lactic acid elevated in ED, normalized with IV fluids Hold metformin for now Sepsis due to gram-negative UTI 10/25/2019 10/26/2019 Last Assessment & Plan: Assessment/PLAN: He presented to the ED with an episode of high-grade fever, has completed third cycle of chemotherapy for diffuse large B-cell lymphoma last week on 10/17/2019 Noted to have fever of 101 in ED, tachycardic, blood pressure normal Lactate elevated normalized with IV fluids Urinalysis revealed cloudy urine with elevated WBC, urine culture sent Blood culture sent from ED Nephrostomy tube changed on 09/15/2019 Previous urine culture grew Serratia Started on Zosyn in ED, continue Follow-up cultures Neutropenic sepsis 09/13/2019 09/16/2019 Last Assessment & Plan: BC negative. Urine culture result noted. Unable to determine if related to nephrostomy tube. Wait for final rec's from ID for discharge. Nephrostomy status 09/13/2019 05/22/2021 Last Assessment & Plan: Assessment/PLAN: Last changed on 09/15/2019, he has appointment on nephrostomy tube exchange Exchange vs removal pending CT scans with Dr Columba Uriarte 07/21/2017 05/22/2021 Insulin dependent type 2 diabetes mellitus, unco ntrolled 12/11/2016 04/06/2020 Last Assessment & Plan: Assessment/PLAN: Resume home regimen and follow up with PCP Pain in right foot 12/11/2016 12/11/2016 documented as of this encounter (statuses as of 09/05/2022) [facility]01-[facility]2020 History of Past illness Narrative* Problem Noted Date Resolved Date Hypomagnesemia 10/30/2019 11/01/2019 Last Assessment & Plan: Recent Labs 10/30/19 0615 10/29/19 0615 10/28/19 0600 BUN 13 11 9 CREAT 0.85 0.82 0.77 CA 9.4 9.3 8.9 MG 1.6* 1.7 -- Assessment: Continue supplementation PLAN: Adjustments per mag level Hyperglycemia 10/30/2019 11/01/2019 Elevated lactic acid level 10/26/201910/26 Last Assessment & Plan: Assessment/PLAN: Lactic acid elevated in ED, normalized with IV fluids Hold metformin for now Sepsis due to gram-negative UTI 10/25/2019 10/26/2019 Last Assessment & Plan: Assessment/PLAN: He presented to the ED with an episode of high-grade fever, has completed third cycle of chemotherapy for diffuse large B-cell lymphoma last week on 10/17/2019 Noted to have fever of 101 in ED, tachycardic, blood pressure normal Lactate elevated normalized with IV fluids Urinalysis revealed cloudy urine with elevated WBC, urine culture sent Blood culture sent from ED Nephrostomy tube changed on 09/15/2019 Previous urine culture grew Serratia Started on Zosyn in ED, continue Follow-up cultures Neutropenic sepsis 09/13/2019 09/16/2019 Last Assessment & Plan: BC negative. Urine culture result noted. Unable to determine if related to nephrostomy tube. Wait for final rec's from ID for discharge. Nephrostomy status 09/13/2019 05/22/2021 Last Assessment & Plan: Assessment/PLAN: Last changed on 09/15/2019, he has appointment on nephrostomy tube exchange Exchange vs removal pending CT scans with Dr Columba Uriarte 07/21/2017 05/22/2021 Insulin dependent type 2 diabetes mellitus, unco ntrolled 12/11/2016 04/06/2020 Last Assessment & Plan: Assessment/PLAN: Resume home regimen and follow up with PCP Pain in right foot 12/11/2016 12/11/2016 documented as of this encounter (statuses as of 10/06/2022) [facility]01-[facility]2020 History of Past illness Narrative* Problem Noted Date Resolved Date Hypomagnesemia 10/30/2019 11/01/2019 Last Assessment & Plan: Recent Labs 10/30/19 0615 10/29/19 0615 10/28/19 0600 BUN 13 11 9 CREAT 0.85 0.82 0.77 CA 9.4 9.3 8.9 MG 1.6* 1.7 -- Assessment: Continue supplementation PLAN: Adjustments per mag level Hyperglycemia 10/30/2019 11/01/2019 Elevated lactic acid level 10/26/201910/26 Last Assessment & Plan: Assessment/PLAN: Lactic acid elevated in ED, normalized with IV fluids Hold metformin for now Sepsis due to gram-negative UTI 10/25/2019 10/26/2019 Last Assessment & Plan: Assessment/PLAN: He presented to the ED with an episode of high-grade fever, has completed third cycle of chemotherapy for diffuse large B-cell lymphoma last week on 10/17/2019 Noted to have fever of 101 in ED, tachycardic, blood pressure normal Lactate elevated normalized with IV fluids Urinalysis revealed cloudy urine with elevated WBC, urine culture sent Blood culture sent from ED Nephrostomy tube changed on 09/15/2019 Previous urine culture grew Serratia Started on Zosyn in ED, continue Follow-up cultures Neutropenic sepsis 09/13/2019 09/16/2019 Last Assessment & Plan: BC negative. Urine culture result noted. Unable to determine if related to nephrostomy tube. Wait for final rec's from ID for discharge. Nephrostomy status 09/13/2019 05/22/2021 Last Assessment & Plan: Assessment/PLAN: Last changed on 09/15/2019, he has appointment on nephrostomy tube exchange Exchange vs removal pending CT scans with Dr Waterman Onychomycsera 07/21/2017 05/22/2021 Insulin dependent type 2 diabetes mellitus, unco ntrolled 12/11/2016 04/06/2020 Last Assessment & Plan: Assessment/PLAN: Resume home regimen and follow up with PCP Pain in right foot 12/11/2016 12/11/2016 documented as of this encounter (statuses as of 10/30/2022) [facility]01[facility] History of Past illness Narrative* Problem Noted Date Resolved Date Hypomagnesemia 10/30/2019 11/01/2019 Last Assessment & Plan: Recent Labs 10/30/19 0615 10/29/19 0615 10/28/19 0600 BUN 13 11 9 CREAT 0.85 0.82 0.77 CA 9.4 9.3 8.9 MG 1.6* 1.7 -- Assessment: Continue supplementation PLAN: Adjustments per mag level Hyperglycemia 10/30/2019 11/01/2019 Elevated lactic acid level 10/26/201910/26 Last Assessment & Plan: Assessment/PLAN: Lactic acid elevated in ED, normalized with IV fluids Hold metformin for now Sepsis due to gram-negative UTI 10/25/2019 10/26/2019 Last Assessment & Plan: Assessment/PLAN: He presented to the ED with an episode of high-grade fever, has completed third cycle of chemotherapy for diffuse large B-cell lymphoma last week on 10/17/2019 Noted to have fever of 101 in ED, tachycardic, blood pressure normal Lactate elevated normalized with IV fluids Urinalysis revealed cloudy urine with elevated WBC, urine culture sent Blood culture sent from ED Nephrostomy tube changed on 09/15/2019 Previous urine culture grew Serratia Started on Zosyn in ED, continue Follow-up cultures Neutropenic sepsis 09/13/2019 09/16/2019 Last Assessment & Plan: BC negative. Urine culture result noted. Unable to determine if related to nephrostomy tube. Wait for final rec's from ID for discharge. Nephrostomy status 09/13/2019 05/22/2021 Last Assessment & Plan: Assessment/PLAN: Last changed on 09/15/2019, he has appointment on nephrostomy tube exchange Exchange vs removal pending CT scans with Dr Waterman Onychomycosis 07/21/2017 05/22/2021 Pain in right foot 12/11/2016 12/11/2016 documented as of this encounter (statuses as of 11/21/2022) [facility] History of Past illness Narrative* Problem Noted Date Resolved Date Hypomagnesemia 10/30/2019 11/01/2019 Last Assessment & Plan: Recent Labs 10/30/19 0615 10/29/19 0615 10/28/19 0600 BUN 13 11 9 CREAT 0.85 0.82 0.77 CA 9.4 9.3 8.9 MG 1.6* 1.7 -- Assessment: Continue supplementation PLAN: Adjustments per mag level Hyperglycemia 10/30/2019 11/01/2019 Elevated lactic acid level 10/26/201910/26 Last Assessment & Plan: Assessment/PLAN: Lactic acid elevated in ED, normalized with IV fluids Hold metformin for now Sepsis due to gram-negative UTI 10/25/2019 10/26/2019 Last Assessment & Plan: Assessment/PLAN: He presented to the ED with an episode of high-grade fever, has completed third cycle of chemotherapy for diffuse large B-cell lymphoma last week on 10/17/2019 Noted to have fever of 101 in ED, tachycardic, blood pressure normal Lactate elevated normalized with IV fluids Urinalysis revealed cloudy urine with elevated WBC, urine culture sent Blood culture sent from ED Nephrostomy tube changed on 09/15/2019 Previous urine culture grew Serratia Started on Zosyn in ED, continue Follow-up cultures Neutropenic sepsis 09/13/2019 09/16/2019 Last Assessment & Plan: BC negative. Urine culture result noted. Unable to determine if related to nephrostomy tube. Wait for final rec's from ID for discharge. Nephrostomy status 09/13/2019 05/22/2021 Last Assessment & Plan: Assessment/PLAN: Last changed on 09/15/2019, he has appointment on nephrostomy tube exchange Exchange vs removal pending CT scans with Dr Waterman Onychomycosis 07/21/2017 05/22/2021 Pain in right foot 12/11/2016 12/11/2016 documented as of this encounter (statuses as of 11/25/2022) [facility] History of Past illness Narrative* Problem Noted Date Resolved Date Hypomagnesemia 10/30/2019 11/01/2019 Last Assessment & Plan: Recent Labs 10/30/19 0615 10/29/19 0615 10/28/19 0600 BUN 13 11 9 CREAT 0.85 0.82 0.77 CA 9.4 9.3 8.9 MG 1.6* 1.7 -- Assessment: Continue supplementation PLAN: Adjustments per mag level Hyperglycemia 10/30/2019 11/01/2019 Elevated lactic acid level 10/26/201910/26 Last Assessment & Plan: Assessment/PLAN: Lactic acid elevated in ED, normalized with IV fluids Hold metformin for now Sepsis due to gram-negative UTI 10/25/2019 10/26/2019 Last Assessment & Plan: Assessment/PLAN: He presented to the ED with an episode of high-grade fever, has completed third cycle of chemotherapy for diffuse large B-cell lymphoma last week on 10/17/2019 Noted to have fever of 101 in ED, tachycardic, blood pressure normal Lactate elevated normalized with IV fluids Urinalysis revealed cloudy urine with elevated WBC, urine culture sent Blood culture sent from ED Nephrostomy tube changed on 09/15/2019 Previous urine culture grew Serratia Started on Zosyn in ED, continue Follow-up cultures Neutropenic sepsis 09/13/2019 09/16/2019 Last Assessment & Plan: BC negative. Urine culture result noted. Unable to determine if related to nephrostomy tube. Wait for final rec's from ID for discharge. Nephrostomy status 09/13/2019 05/22/2021 Last Assessment & Plan: Assessment/PLAN: Last changed on 09/15/2019, he has appointment on nephrostomy tube exchange Exchange vs removal pending CT scans with Dr Waterman Onychomycosis 07/21/2017 05/22/2021 Pain in right foot 12/11/2016 12/11/2016 documented as of this encounter (statuses as of 11/28/2022) [facility] History of Past illness Narrative* Problem Noted Date Resolved Date Hypomagnesemia 10/30/2019 11/01/2019 Last Assessment & Plan: Recent Labs 10/30/19 0615 10/29/19 0615 10/28/19 0600 BUN 13 11 9 CREAT 0.85 0.82 0.77 CA 9.4 9.3 8.9 MG 1.6* 1.7 -- Assessment: Continue supplementation PLAN: Adjustments per mag level Hyperglycemia 10/30/2019 11/01/2019 Elevated lactic acid level 10/26/201910/26 Last Assessment & Plan: Assessment/PLAN: Lactic acid elevated in ED, normalized with IV fluids Hold metformin for now Sepsis due to gram-negative UTI 10/25/2019 10/26/2019 Last Assessment & Plan: Assessment/PLAN: He presented to the ED with an episode of high-grade fever, has completed third cycle of chemotherapy for diffuse large B-cell lymphoma last week on 10/17/2019 Noted to have fever of 101 in ED, tachycardic, blood pressure normal Lactate elevated normalized with IV fluids Urinalysis revealed cloudy urine with elevated WBC, urine culture sent Blood culture sent from ED Nephrostomy tube changed on 09/15/2019 Previous urine culture grew Serratia Started on Zosyn in ED, continue Follow-up cultures Neutropenic sepsis 09/13/2019 09/16/2019 Last Assessment & Plan: BC negative. Urine culture result noted. Unable to determine if related to nephrostomy tube. Wait for final rec's from ID for discharge. Nephrostomy status 09/13/2019 05/22/2021 Last Assessment & Plan: Assessment/PLAN: Last changed on 09/15/2019, he has appointment on nephrostomy tube exchange Exchange vs removal pending CT scans with Dr Waterman Onychomycosis 07/21/2017 05/22/2021 Pain in right foot 12/11/2016 12/11/2016 documented as of this encounter (statuses as of 12/17/2022) [facility] Diagnosis Diffuse large B-cell 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) Screening for prostate cancer Special screening for malignant neoplasm of [facility] Tachycardia Tachycardia, unspecified [facility] Diffuse large B-cell 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)- Primary [facility] Diagnosis Diffuse large B-cell 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)- Primary [facility] Diagnosis Diffuse large B-cell 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) [facility] Diagnosis Diffuse large B-cell lymphoma of solid organ excluding spleen (HCC) [facility] Diagnosis Diffuse large B-cell lymphoma of solid organ excluding spleen (HCC) [facility] Diagnosis 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, unspecified site, extranodal and solid organ sites Malignant neoplasm (HCC) Other malignant neoplasm without specification of site [facility] Diagnosis Type 2 diabetes mellitus without complication, with long-term current use of insulin (HCC)- Primary Hyperlipidemia, mixed Mixed hyperlipidemia BMI 36.0-36.9,adult Body Mass Index 36.0-36.9, adult Obesity, Class II, BMI 35-39.9 Obesity, unspecified NHL (nodular histiocytic lymphoma) (HCC) Reticulosarcoma, unspecified site, extranodal and solid organ sites [facility] Diagnosis Nodular histiocytic lymphoma (HCC) Reticulosarcoma, unspecified site, 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, unspecified site, extranodal and solid organ sites [facility] Diagnosis Diffuse large B-cell lymphoma of intra-abdominal lymph nodes (HCC)- Primary Other malignant lymphomas of intra-abdominal lymph nodes Pelvic mass Abdominal or pelvic swelling, mass or lump, unspecified site [facility] Diagnosis Diffuse large B-cell 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)- Primary Other intra-abdominal and pelvic swelling, mass and lump [facility] Diagnosis Neuropathy involving both lower extremities [facility] Diagnosis Malignant neoplasm (HCC)- Primary Other malignant neoplasm without specification of site Diffuse large B-cell 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) [facility] Diagnosis Tachycardia Tachycardia, unspecified [facility] Diagnosis Hyperlipidemia, mixed Mixed hyperlipidemia [facility] Diagnosis Diffuse large B-cell 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)- Primary Hydronephrosis with renal and ureteral calculus obstruction Hydronephrosis Pelvic mass Abdominal or pelvic swelling, mass or lump, unspecified site Hyperlipidemia, mixed Mixed hyperlipidemia [facility]* Diagnosis Left lower quadrant abdominal pain [facility] Diagnosis Ureteral obstruction, left- Primary Other ureteric obstruction Hydronephrosis, unspecified hydronephrosis type [facility] Diagnosis Diffuse large B-cell lymphoma, unspecified body region (HCC)- Primary Malignant neoplasm (HCC) Other malignant neoplasm without specification of site [facility]* Diagnosis Leg swelling Swelling of limb Hyperlipidemia, mixed Mixed hyperlipidemia Neuropathy involving both lower extremities [facility]* Diagnosis Type 2 diabetes mellitus with diabetic polyneuropathy, with long-term current use of insulin (HCC)- Primary Frequent urination Urinary frequency Acute cystitis with hematuria Acute cystitis Hypertension, essential Unspecified essential hypertension Hyperlipidemia, mixed Mixed hyperlipidemia ED (erectile dysfunction) of organic origin Impotence of organic origin Neuropathy involving both lower extremities Tachycardia Tachycardia, unspecified Urge incontinence of urine Urge incontinence Obesity, Class III, BMI >= 40 Morbid obesity custodial use of drug Encounter for long-term (current) use of other medications [facility] Diagnosis Tachycardia Tachycardia, unspecified [facility]* Diagnosis Acute otitis media, left- Primary Unspecified otitis media Acute non-recurrent frontal sinusitis [facility]* Diagnosis Hydronephrosis with renal and ureteral calculus obstruction- Primary Hydronephrosis Ureteral obstruction, left Other ureteric obstruction Retention, urine Retention of urine, unspecified [facility]* Diagnosis COVID- Primary Obstruction of right ureter Acute kidney injury (HCC) Acute kidney failure, unspecified Type 2 diabetes mellitus without complication, with long-term current use of insulin ([facility]) Nausea Nausea alone Obesity, Class II, BMI 35-39.9 Obesity, unspecified Hydronephrosis, unspecified hydronephrosis type Urinary retention Retention of urine, unspecified [facility]* Diagnosis Type 2 diabetes mellitus with diabetic polyneuropathy, with long-term current use of insulin ([facility]) [facility]* Diagnosis Atrial fibrillation with RVR ([facility])- Primary Atrial fibrillation Ureteral obstruction, right Other ureteric obstruction Obesity, Class II, BMI 35-39.9 Obesity, unspecified documented in this encounter [facility]* Diagnosis Retention, urine- Primary Retention of urine, unspecified Hydronephrosis with renal and ureteral calculus obstruction Hydronephrosis [facility]* Diagnosis Paroxysmal atrial fibrillation (HCC) Atrial fibrillation [facility]* Diagnosis Paroxysmal atrial fibrillation (HCC) Atrial fibrillation [facility]* Diagnosis Thrombocytopenia (HCC)- Primary Thrombocytopenia, unspecified [facility]* Diagnosis Type 2 diabetes mellitus with diabetic polyneuropathy, with long-term current use of insulin ([facility])- Primary Physical deconditioning Debility, unspecified Dyspnea on exertion Other dyspnea and respiratory abnormality Atrial fibrillation with RVR (HCC) Atrial fibrillation Obesity, Class III, BMI >= 40 Morbid obesity Urinary frequency Acute cystitis with hematuria Acute [facility]stitis [facility] Diagnosis 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, unspecified site, extranodal and solid organ sites [facility] Diagnosis Primary osteoarthritis involving multiple joints- Primary [facility] Diagnosis Paroxysmal atrial fibrillation (HCC)- Primary Atrial fibrillation Type 2 diabetes mellitus with diabetic polyneuropathy, without long-term current use of insulin (HCC) Diffuse large B-cell lymphoma of intra-abdominal lymph nodes (HCC) Other malignant lymphomas of intra-abdominal lymph nodes [facility] Diagnosis Hyperkalemia- Primary Hyperpotassemia [facility]* Diagnosis 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, unspecified site, extranodal and solid organ sites Hyperkalemia Hyperpotassemia [facility]* Diagnosis Paroxysmal atrial fibrillation (HCC)- Primary Atrial fibrillation Hypertension, essential Unspecified essential hypertension Hyperlipidemia, mixed Mixed hyperlipidemia Coronary artery calcification seen on CT scan [facility] Diagnosis Hydronephrosis, unspecified hydronephrosis type- Primary Type 2 diabetes mellitus with diabetic polyneuropathy, without long-term current use of insulin (HCC)- Primary Leg swelling Swelling of limb Obesity, Class III, BMI >= 40 Morbid obesity Hydronephrosis of right kidney Hydronephrosis [facility] Diagnosis Hydronephrosis, unspecified hydronephrosis type- Primary Leg swelling Swelling of limb Hydronephrosis of right kidney Hydronephrosis [facility] Diagnosis Hydronephrosis, unspecified hydronephrosis type- Primary Stage 3b chronic kidney disease (HCC)- Primary Leg swelling Swelling of limb Anemia of renal disease Anemia in chronic kidney disease Chronic kidney disease (CKD) stage G3b/A3, moderately decreased glomerular filtration rate (GFR) between 30-44 mL/min/1.73 square meter and albuminuria creatinine ratio greater than 300 mg/g (HCC) Chronic kidney disease, Stage III (moderate) Diabetes mellitus with nephropathy (HCC) Type II or unspecified type diabetes mellitus with renal manifestations, not stated as uncontrolled Dietary counseling and surveillance Dietary surveillance and counseling Edema of lower extremity Edema Vitamin D deficiency Unspecified vitamin D deficiency Hyperkalemia Hyperpotassemia Hypertension, essential Unspecified essential hypertension Hyperuricemia Other abnormal blood chemistry Other proteinuria Hydronephrosis of right kidney Hydronephrosis [facility]* Diagnosis Type 2 diabetes mellitus with diabetic polyneuropathy, without long-term current use of insulin (HCC) [facility]* Diagnosis 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, unspecified site, extranodal and solid organ sites [facility]* Diagnosis Thrombocytopenia (HCC)- Primary Thrombocytopenia, unspecified Diffuse large B-cell lymphoma of intra-abdominal lymph nodes (HCC) Other malignant lymphomas of intra-abdominal lymph nodes Diffuse large B-cell lymphoma of intra-abdominal lymph nodes (HCC)- Primary Other malignant lymphomas of intra-abdominal lymph nodes [facility]* Diagnosis Type 2 diabetes mellitus with diabetic polyneuropathy, without long-term current use of insulin (HCC) [facility] Diagnosis Primary osteoarthritis involving multiple joints- Primary [facility]* Diagnosis Malignant neoplasm (HCC)- Primary Other malignant neoplasm without specification of site Anemia of renal disease Anemia in chronic kidney disease Leg swelling Swelling of limb Stage 3b chronic kidney disease (HCC) Vitamin D deficiency Unspecified vitamin D deficiency Other proteinuria Screening for prostate cancer Special screening for malignant neoplasm of prostate Hypertension, essential Unspecified essential hypertension [facility] Diagnosis Type 2 diabetes mellitus with diabetic polyneuropathy, without long-term current use of insulin (HCC)- Primary Leg swelling Swelling of limb Hyperlipidemia, mixed Mixed hyperlipidemia Obesity, Class III, BMI >= 40 Morbid obesity [facility]* Diagnosis NHL unspecified type (HCC) [facility] Diagnosis Malignant neoplasm (HCC)- Primary Other malignant neoplasm without specification of site Stage 3b chronic kidney disease (HCC) Chronic kidney disease (CKD) stage G3b/A3, moderately decreased glomerular filtration rate (GFR) between 30-44 mL/min/1.73 square meter and albuminuria creatinine ratio greater than 300 mg/g (HCC) Chronic kidney disease, Stage III (moderate) Vitamin D deficiency Unspecified vitamin D deficiency Hyperkalemia Hyperpotassemia Hypertension, essential Unspecified essential hypertension Hyperuricemia Other abnormal blood chemistry Other proteinuria [facility] Diagnosis Stage 3b chronic kidney disease (HCC)- Primary Chronic kidney disease (CKD) stage G3b/A3, moderately decreased glomerular filtration rate (GFR) between 30-44 mL/min/1.73 square meter and albuminuria creatinine ratio greater than 300 mg/g (HCC) Chronic kidney disease, Stage III (moderate) Vitamin D deficiency Unspecified vitamin D deficiency Hyperkalemia Hyperpotassemia Hypertension, essential Unspecified essential hypertension Hyperuricemia Other abnormal blood chemistry Other proteinuria Anemia of renal disease Anemia in chronic kidney disease Chronic kidney disease (CKD) stage G3b/A2, moderately decreased glomerular filtration rate (GFR) between 30-44 mL/min/1.73 square meter and albuminuria creatinine ratio between 30-299 mg/g (HCC) Chronic kidney disease, Stage III (moderate) Diabetes mellitus with nephropathy (HCC) Type II or unspecified type diabetes mellitus with renal manifestations, not stated as uncontrolled Dietary counseling and surveillance Dietary surveillance and counseling [facility] Diagnosis Chronic pain syndrome- Primary [facility]* Diagnosis Dizziness- Primary Dizziness and giddiness Hypotension, unspecified hypotension type [facility]* Diagnosis Paroxysmal atrial fibrillation (HCC) Atrial fibrillation [facility]* Diagnosis Chronic pain syndrome [facility]* Diagnosis Hyperlipidemia, mixed- Primary Mixed hyperlipidemia Hypertension, essential Unspecified essential hypertension Paroxysmal atrial fibrillation (HCC) Atrial fibrillation Coronary artery disease involving [place] coronary artery of [place] heart without angina pectoris [facility]* Diagnosis NHL unspecified type (HCC) [facility]* Diagnosis Chronic pain syndrome [facility] Diagnosis Chronic pain syndrome [facility]* Diagnosis Stage 3b chronic kidney disease (HCC) Vitamin D deficiency Unspecified vitamin D deficiency Diffuse large B-cell 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) [facility]* Diagnosis Diffuse large B-cell 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)- Primary Diffuse large B-cell lymphoma of extranodal site (HCC) Other malignant lymphomas, unspecified site, extranodal and solid organ sites [facility]* Diagnosis Type 2 diabetes mellitus with diabetic polyneuropathy, without long-term current use of insulin (HCC)- Primary Chronic pain syndrome Hypertension, essential Unspecified essential hypertension [facility]* Diagnosis Type 2 diabetes mellitus with diabetic polyneuropathy, without long-term current use of insulin (HCC) Chronic pain syndrome [facility]* Diagnosis Hydronephrosis, unspecified hydronephrosis type- Primary [facility]* Diagnosis Chronic pain syndrome [facility] Diagnosis Hyperlipidemia, mixed Mixed hyperlipidemia [facility]* Diagnosis Chronic pain syndrome [facility]* Diagnosis Diffuse large B-cell 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)- Primary Anemia of renal disease Anemia in chronic kidney disease Stage 3b chronic kidney disease (HCC) Other proteinuria Hyperlipidemia, mixed Mixed hyperlipidemia [facility]* Diagnosis Stage 4 chronic kidney disease (HCC)- Primary Anemia of renal disease Anemia in chronic kidney disease Dietary counseling and surveillance Dietary surveillance and counseling Edema of lower extremity Edema Vitamin D deficiency Unspecified vitamin D deficiency Hypertension, essential Unspecified essential hypertension Hyperuricemia Other abnormal blood chemistry Other proteinuria [facility] Diagnosis Acute pain of left knee- Primary [facility]* Diagnosis Hemarthrosis Hemarthrosis, site unspecified Effusion of left knee Effusion of lower leg joint Acute pain of left knee Osteomyelitis of right foot (HCC) Unspecified osteomyelitis, ankle and foot [facility] Diagnosis Neutropenic sepsis (HCC) Unspecified septicemia Pulmonary granulomatosis (HCC)- Primary Other diseases of lung, not elsewhere classified Sepsis due to gram-negative UTI (HCC) (HCC) Nephrostomy status (HCC) Status of other artificial opening of urinary tract Sepsis due to gram-negative UTI (HCC) (HCC) Elevated lactic acid level Acidosis Hypomagnesemia Disorders of magnesium metabolism Hyperglycemia Other abnormal glucose Chronic pain of left knee- Primary Pain in joint, lower leg Acute pain of left knee Inflammatory arthritis Unspecified inflammatory polyarthropathy [facility]* Diagnosis Neutropenic sepsis (HCC) Unspecified septicemia Pulmonary granulomatosis (HCC)- Primary Other diseases of lung, not elsewhere classified Sepsis due to gram-negative UTI (HCC) (HCC) Nephrostomy status (HCC) Status of other artificial opening of urinary tract Sepsis due to gram-negative UTI (HCC) (HCC) Elevated lactic acid level Acidosis Hypomagnesemia Disorders of magnesium metabolism Hyperglycemia Other abnormal glucose Malignant neoplasm (HCC)- Primary Other malignant neoplasm without specification of site Acute pain of left knee [facility]* Diagnosis Neutropenic sepsis (HCC) Unspecified septicemia Pulmonary granulomatosis (HCC)- Primary Other diseases of lung, not elsewhere classified Sepsis due to gram-negative UTI (HCC) (HCC) Nephrostomy status (HCC) Status of other artificial opening of urinary tract Sepsis due to gram-negative UTI (HCC) (HCC) Elevated lactic acid level Acidosis Hypomagnesemia Disorders of magnesium metabolism Hyperglycemia Other abnormal glucose History of amputation of right great toe (HCC)- Primary Acute medial meniscal tear, left, subsequent encounter Acute pain of left knee Type 2 diabetes mellitus with diabetic polyneuropathy, without long-term current use of insulin ([facility]) Class 1 obesity due to excess calories with serious comorbidity and body mass index (BMI) of 34.0 to 34.9 in adult documented in this encounter [facility] note* Diagnosis Neutropenic sepsis (HCC) Unspecified septicemia Pulmonary granulomatosis (HCC)- Primary Other diseases of lung, not elsewhere classified Sepsis due to gram-negative UTI (HCC) (HCC) Nephrostomy status (HCC) Status of other artificial opening of urinary tract Sepsis due to gram-negative UTI (HCC) (HCC) Elevated lactic acid level Acidosis Hypomagnesemia Disorders of magnesium metabolism Hyperglycemia Other abnormal glucose Tear of medial meniscus of left knee, current, unspecified tear type, initial encounter- Primary Tear of medial meniscus of left knee, current, unspecified tear type, initial encounter documented in this encounter [facility] note* Diagnosis Neutropenic sepsis (HCC) Unspecified septicemia Pulmonary granulomatosis (HCC)- Primary Other diseases of lung, not elsewhere classified Sepsis due to gram-negative UTI (HCC) (HCC) Nephrostomy status (HCC) Status of other artificial opening of urinary tract Sepsis due to gram-negative UTI (HCC) (HCC) Elevated lactic acid level Acidosis Hypomagnesemia Disorders of magnesium metabolism Hyperglycemia Other abnormal glucose Acute pain of left knee- Primary Primary osteoarthritis of left knee Primary localized osteoarthrosis, lower leg Tear of medial meniscus of left knee, current, unspecified tear type, initial encounter Tear of medial meniscus of left knee, current, unspecified tear type, initial encounter documented in this encounter [facility]* Diagnosis Neutropenic sepsis (HCC) Unspecified septicemia Pulmonary granulomatosis (HCC)- Primary Other diseases of lung, not elsewhere classified Sepsis due to gram-negative UTI (HCC) (HCC) Nephrostomy status (HCC) Status of other artificial opening of urinary tract Sepsis due to gram-negative UTI (HCC) (HCC) Elevated lactic acid level Acidosis Hypomagnesemia Disorders of magnesium metabolism Hyperglycemia Other abnormal glucose Type 2 diabetes mellitus with diabetic polyneuropathy, without long-term current use of insulin (HCC) Tear of medial meniscus of left knee, current, unspecified tear type, initial encounter documented in this encounter [facility]* Diagnosis Neutropenic sepsis (HCC) Unspecified septicemia Pulmonary granulomatosis (HCC)- Primary Other diseases of lung, not elsewhere classified Sepsis due to gram-negative UTI (HCC) (HCC) Nephrostomy status (HCC) Status of other artificial opening of urinary tract Sepsis due to gram-negative UTI (HCC) (HCC) Elevated lactic acid level Acidosis Hypomagnesemia Disorders of magnesium metabolism Hyperglycemia Other abnormal glucose Tear of left meniscus as current injury, subsequent encounter- Primary Type 2 diabetes mellitus with diabetic polyneuropathy, without long-term current use of insulin (HCC) Essential hypertension Unspecified essential hypertension Hyperlipidemia, mixed Mixed hyperlipidemia History of amputation of right great toe ([facility]) Class 1 obesity with body mass index (BMI) of 34.0 to 34.9 in adult, unspecified obesity type, unspecified whether serious comorbidity present Tear of medial meniscus of left knee, current, unspecified tear type, initial encounter documented in this encounter [facility]* Diagnosis Neutropenic sepsis (HCC) Unspecified septicemia Pulmonary granulomatosis (HCC)- Primary Other diseases of lung, not elsewhere classified Sepsis due to gram-negative UTI (HCC) (HCC) Nephrostomy status (HCC) Status of other artificial opening of urinary tract Sepsis due to gram-negative UTI (HCC) (HCC) Elevated lactic acid level Acidosis Hypomagnesemia Disorders of magnesium metabolism Hyperglycemia Other abnormal glucose Type 2 diabetes mellitus with diabetic polyneuropathy, without long-term current use of insulin (HCC) Paroxysmal atrial fibrillation (HCC)- Primary Atrial fibrillation Coronary artery disease involving [place] coronary artery of [place] heart without angina pectoris Essential hypertension Unspecified essential hypertension Tear of medial meniscus of left knee, current, unspecified tear type, initial encounter documented in this encounter [facility]* Diagnosis Neutropenic sepsis (HCC) Unspecified septicemia Pulmonary granulomatosis (HCC)- Primary Other diseases of lung, not elsewhere classified Sepsis due to gram-negative UTI (HCC) (HCC) Nephrostomy status (HCC) Status of other artificial opening of urinary tract Sepsis due to gram-negative UTI (HCC) (HCC) Elevated lactic acid level Acidosis Hypomagnesemia Disorders of magnesium metabolism Hyperglycemia Other abnormal glucose Pre-operative examination- Primary Preoperative examination, unspecified Paroxysmal atrial fibrillation (HCC) Atrial fibrillation Coronary artery disease involving [place] coronary artery of [place] heart without angina pectoris Essential hypertension Unspecified essential hypertension Thrombocytopenia (HCC) Thrombocytopenia, unspecified Anemia, unspecified type Stage 3b chronic kidney disease (HCC) Leg swelling Swelling of limb Depression, unspecified depression type BPH associated with nocturia Hypertrophy of prostate with urinary obstruction and other lower urinary tract symptoms (LUTS) Diffuse large B-cell lymphoma of intra-abdominal lymph nodes (HCC) Other malignant lymphomas of intra-abdominal lymph nodes Hyperlipidemia, mixed Mixed hyperlipidemia Hyperparathyroidism (HCC) Hyperparathyroidism, unspecified Physical debility Debility, unspecified Class 1 obesity due to excess calories with serious comorbidity and body mass index (BMI) of 33.0 to 33.9 in adult Tear of medial meniscus of left knee, current, unspecified tear type, initial encounter * Assessment & Plan Note - Kate Kirby APRN.CNP - 07/25/2024 11:49 AM EDT Associated Problem(s): Class 1 obesity due to excess calories with serious comorbidity and body mass index (BMI) of 33.0 to 33.9 in adult Assessment: Body mass index is 33.91 kg/m . * Assessment & Plan Note - Kate Kirby APRN.CNP - 07/25/2024 11:49 AM EDT Associated Problem(s): Physical debility Assessment: hx * Assessment & Plan Note - Kate Kirby APRN.CNP - 07/25/2024 11:48 AM EDT Associated Problem(s): Hyperparathyroidism (HCC) Assessment: secondary to CKD, following endo * Assessment & Plan Note - Kate Kirby APRN.CNP - 07/25/2024 11:14 AM EDT Associated Problem(s): Hyperlipidemia, mixed Assessment: c/w statin * Assessment & Plan Note - Kate Kirby APRN.CNP - 07/25/2024 11:11 AM EDT Associated Problem(s): Diffuse large B cell lymphoma (HCC) Assessment: in remission, s/p chemo and XRT 08/27/2023 Martell Waterman MD Assesment 1. 58-year-old male with a diagnosis of diffuse large B-cell lymphoma.. Presented with a 5 cm lesion along the left pelvic sidewall. Diagnosed in June 2019. Treated with 6 cycles of Rituxan CHOPchemotherapy. Received radiation to the area of persistent PET avid disease on 01/12/2022. Patient has done relatively well since without any evidence of relapse. Continue to monitor him. High risk of relapse. Repeat CAT scans again in 8 6 months. Current CAT scans show no progression. 2. Keflex prescribed for the mild cellulitis over the left harris from trauma. Martell Waterman MD * Assessment & Plan Note - Kate Kirby APRN.CNP - 07/25/2024 11:10 AM EDT Associated Problem(s): BPH associated with nocturia Assessment: s/p TURP * Assessment & Plan Note - Kate Kirby APRN.CNP - 07/25/2024 11:09 AM EDT Associated Problem(s): Depression Assessment: stable on rx per pt * Assessment & Plan Note - Kate Kirby APRN.CNP - 07/25/2024 11:09 AM EDT Associated Problem(s): Leg swelling Assessment: controlled on rx * Assessment & Plan Note - Kate Kirby APRN.CNP - 07/25/2024 11:08 AM EDT Associated Problem(s): Stage 3b chronic kidney disease (HCC) Assessment: on rx, following neprhrology Creatinine Date Value Ref Range Status 06/10/2024 1.65 (H) 0.73 - 1.22 mg/dL Final 06/06/2024 1.97 (H) 0.73 - 1.22 mg/dL Final 06/05/2024 1.93 (H) 0.73 - 1.22 mg/dL Final 06/04/2024 1.73 (H) 0.73 - 1.22 mg/dL Final 04/19/2024 Dr. Polanco, Nephrology ASSESSMENT AND PLAN 1) CKD Stage 3 BL 2.3-2.5 , GFR 30-35 -Etiology (likely) : DKD, A1C 8.5 -s/p TURP and right ureteroscopic and right ureter stent placement. -Previous baseline creatinine was around 2.3 - Does not need preparation for dialysis at this time. - Cr is 2.35 GFR 31 ACR 126 mg/g -UA > 20 WBC , LE + , asymptomatic UTI - K 4.5 -Will continue routine monitoring of chemistries. -Avoid all PICC lines, i.v.s and blood draws in arms above wrists as possible to preserve veins forpossible AV fistula or AVG. -Lisinorpil 10 mg po daily and off of metformin -Farxiga 10 mg po daily , on Ozemoic 1.0 q weekly -Lasix 40 mg daily, KCL 10 meq po daily as needed - -Sodium bicarbonate 650 mg 2 tablets twice a day _ 2) Hypertension: -Blood pressure is adequately controlled. -No changes to medications at this time. -The patient was advised to follow a low salt/DASH diet. 3) Anemia: -Hemoglobin is adequate. -Continue periodic monitoring of CBC and iron studies. 4) Secondary Hyperparathyroidism/CKD-MBD: pTH 158 Vit d 41 -Intact PTH, vitamin d, calcium, and phosphorus levels are acceptable. -No changes -in management. -Will continue to monitor these indices. 5) Acidosis: -Serum bicarbonate level is acceptable. - No changes in management. 6) Proteinuria: -Will continue monitor microalbumin/creatinine ratio. 7) Dyslipidemia: -The patient has moderate CKD and would benefit from aggressive lipid control with an LDL goal of <100 and TG less than 150mg/dl. 8) DM On amaryl and januvia Farxiga Amaryl decreased to 1 tabs po daily once we start on Farxiga 9) Hyperuricemia Uric acid6. 6.3 Allopurinol 100 mg po BID Add colchicine as needed Return in 4 months (on 08/19/2024). Epi Polanco MD * Assessment & Plan Note - Kate Kirby APRN.CNP - 07/25/2024 11:07 AM EDT Associated Problem(s): Anemia Assessment: hx, s/p toe amputation 06/06/2024 Hemoglobin (g/dL) Date Value 06/10/2024 9.7 10/31/2021 13.1 Hematocrit (%) Date Value 06/10/2024 31.0 10/31/2021 38.8 WBC (k/uL) Date Value 06/10/2024 7.23 10/31/2021 8.38 * Assessment & Plan Note - Kate Kirby APRN.CNP - 07/25/2024 11:06 AM EDT Associated Problem(s): Thrombocytopenia (HCC) Assessment: hx, last platelets WNL Platelet Count Date Value Ref Range Status 06/10/2024 175 150 - 400 k/uL Final * Assessment & Plan Note - Kate Kirby APRN.CNP - 07/22/2024 10:24 AM EDT Associated Problem(s): Essential hypertension Assessment: controlled on rx Last 14 BP Last 14 Encounter BP Readings: Date: BP: 07/22/2024 112/80 07/18/2024 116/66 06/23/2024 122/70 06/06/2024 107/72 05/30/2024 102/61 05/25/2024 108/71 05/11/2024 125/69 05/11/2024 180/95 04/19/2024 109/60 03/04/2024 95/64 02/18/2024 80/50 02/15/2024 94/56 12/23/2023 114/74 12/23/2023 82/62 * Assessment & Plan Note - Kate Kirby APRN.CNP - 07/22/2024 10:23 AM EDT Associated Problem(s): Coronary artery disease involving [place] coronary artery of [place] heart without angina pectoris Assessment: non-obstructing, c/w statin, BB. Denies CP, palpitations, sob new or worsening cardiac symptoms. 02/26/2023 Pharm Stress CONCLUSIONS: 1. SPECT Perfusion Study: Normal. 2. There is no scintigraphic evidence for inducible ischemia. 3. No evidence of scarred myocardium. 4. Left ventricle is mildly dilated. The left ventricle systolic function is normal. 5. Right ventricle is normal in size. The right ventricle systolic function is normal. 6. This is a low risk scan. Gated Stress IR:3D LVEF % 64 02/15/2024 Osiris Paris APRN.CNP (E78.2) Hyperlipidemia, mixed (primary encounter diagnosis) Comment: last labs 07/2023. LDL not calculated due to high triglycerides Plan: LIPID PANEL BASIC Will recheck labs. Discussed dietary recommendations. (I10) Hypertension, essential Comment: low blood pressure. He is not sympotmatic. States he is always low. Plan: continue same meds. (I48.0) Paroxysmal atrial fibrillation (HCC) Comment: appears to be in sinus rhythm now Plan: continue same meds (I25.10) Coronary artery disease involving [place] coronary artery of [place] heart without angina pectoris Comment: no ischemic symptoms. Plan: continue same meds. PLAN AND RECOMMENDATIONS: Magnesium glycinate 400-800mg at bedtime. Follow up Dr Benton in 6 months Have fasting lipid level before your next visit. * Assessment & Plan Note - Kate Kirby APRN.CNP - 07/22/2024 9:56 AM EDT Associated Problem(s): Paroxysmal atrial fibrillation (HCC) Assessment: daily Eliquis, controlled on rx 02/15/2024 Osiris Paris CNP, Cardiology Conclusion: (E78.2) Hyperlipidemia, mixed (primary encounter diagnosis) Comment: last labs 07/2023. LDL not calculated due to high triglycerides Plan: LIPID PANEL BASIC Will recheck labs. Discussed dietary recommendations. (I10) Hypertension, essential Comment: low blood pressure. He is not sympotmatic. States he is always low. Plan: continue same meds. (I48.0) Paroxysmal atrial fibrillation (HCC) Comment: appears to be in sinus rhythm now Plan: continue same meds (I25.10) Coronary artery disease involving [place] coronary artery of [place] heart without angina pectoris Comment: no ischemic symptoms. Plan: continue same meds. PLAN AND RECOMMENDATIONS: Magnesium glycinate 400-800mg at bedtime. Follow up Dr Benton in 6 months Have fasting lipid level before your next visit. CONTACT INFORMATION: Osiris Paris APRN.CNP documented in this encounter [facility] note* Diagnosis Neutropenic sepsis (HCC) Unspecified septicemia Pulmonary granulomatosis (HCC)- Primary Other diseases of lung, not elsewhere classified Sepsis due to gram-negative UTI (HCC) (HCC) Nephrostomy status (HCC) Status of other artificial opening of urinary tract Sepsis due to gram-negative UTI (HCC) (HCC) Elevated lactic acid level Acidosis Hypomagnesemia Disorders of magnesium metabolism Hyperglycemia Other abnormal glucose Pre-operative examination- Primary Preoperative examination, unspecified Paroxysmal atrial fibrillation (HCC) Atrial fibrillation Coronary artery disease involving [place] coronary artery of [place] heart without angina pectoris Essential hypertension Unspecified essential hypertension Thrombocytopenia (HCC) Thrombocytopenia, unspecified Anemia, unspecified type Stage 3b chronic kidney disease (HCC) Leg swelling Swelling of limb Depression, unspecified depression type BPH associated with nocturia Hypertrophy of prostate with urinary obstruction and other lower urinary tract symptoms (LUTS) Diffuse large B-cell lymphoma of intra-abdominal lymph nodes (HCC) Other malignant lymphomas of intra-abdominal lymph nodes Hyperlipidemia, mixed Mixed hyperlipidemia Hyperparathyroidism (HCC) Hyperparathyroidism, unspecified Physical debility Debility, unspecified Class 1 obesity due to excess calories with serious comorbidity and body mass index (BMI) of 33.0 to 33.9 in adult Synovitis and tenosynovitis of knee- Primary documented in this encounter [facility] note* Diagnosis Neutropenic sepsis (HCC) Unspecified septicemia Pulmonary granulomatosis (HCC)- Primary Other diseases of lung, not elsewhere classified Sepsis due to gram-negative UTI (HCC) (HCC) Nephrostomy status (HCC) Status of other artificial opening of urinary tract Sepsis due to gram-negative UTI (HCC) (HCC) Elevated lactic acid level Acidosis Hypomagnesemia Disorders of magnesium metabolism Hyperglycemia Other abnormal glucose Pre-operative examination- Primary Preoperative examination, unspecified Paroxysmal atrial fibrillation (HCC) Atrial fibrillation Coronary artery disease involving [place] coronary artery of [place] heart without angina pectoris Essential hypertension Unspecified essential hypertension Thrombocytopenia (HCC) Thrombocytopenia, unspecified Anemia, unspecified type Stage 3b chronic kidney disease (HCC) Leg swelling Swelling of limb Depression, unspecified depression type BPH associated with nocturia Hypertrophy of prostate with urinary obstruction and other lower urinary tract symptoms (LUTS) Diffuse large B-cell lymphoma of intra-abdominal lymph nodes (HCC) Other malignant lymphomas of intra-abdominal lymph nodes Hyperlipidemia, mixed Mixed hyperlipidemia Hyperparathyroidism (HCC) Hyperparathyroidism, unspecified Physical debility Debility, unspecified Class 1 obesity due to excess calories with serious comorbidity and body mass index (BMI) of 33.0 to 33.9 in adult Post-operative state- Primary Other postprocedural status S/P arthroscopic knee surgery Other postprocedural status [facility] Diagnosis Neutropenic sepsis (HCC) Unspecified septicemia Pulmonary granulomatosis (HCC)- Primary Other diseases of lung, not elsewhere classified Sepsis due to gram-negative UTI (HCC) (HCC) Nephrostomy status (HCC) Status of other artificial opening of urinary tract Sepsis due to gram-negative UTI (HCC) (HCC) Elevated lactic acid level Acidosis Hypomagnesemia Disorders of magnesium metabolism Hyperglycemia Other abnormal glucose Pre-operative examination- Primary Preoperative examination, unspecified Paroxysmal atrial fibrillation (HCC) Atrial fibrillation Coronary artery disease involving [place] coronary artery of [place] heart without angina pectoris Essential hypertension Unspecified essential hypertension Thrombocytopenia (HCC) Thrombocytopenia, unspecified Anemia, unspecified type Stage 3b chronic kidney disease (HCC) Leg swelling Swelling of limb Depression, unspecified depression type BPH associated with nocturia Hypertrophy of prostate with urinary obstruction and other lower urinary tract symptoms (LUTS) Diffuse large B-cell lymphoma of intra-abdominal lymph nodes (HCC) Other malignant lymphomas of intra-abdominal lymph nodes Hyperlipidemia, mixed Mixed hyperlipidemia Hyperparathyroidism (HCC) Hyperparathyroidism, unspecified Physical debility Debility, unspecified Class 1 obesity due to excess calories with serious comorbidity and body mass index (BMI) of 33.0 to 33.9 in adult Coronary artery calcification seen on CT scan- Primary Paroxysmal atrial fibrillation (HCC) Atrial fibrillation Hypertension, essential Unspecified essential hypertension Hyperlipidemia, mixed Mixed hyperlipidemia On apixaban therapy [facility]* Diagnosis Neutropenic sepsis (HCC) Unspecified septicemia Pulmonary granulomatosis (HCC)- Primary Other diseases of lung, not elsewhere classified Sepsis due to gram-negative UTI (HCC) (HCC) Nephrostomy status (HCC) Status of other artificial opening of urinary tract Sepsis due to gram-negative UTI (HCC) (HCC) Elevated lactic acid level Acidosis Hypomagnesemia Disorders of magnesium metabolism Hyperglycemia Other abnormal glucose Pre-operative examination- Primary Preoperative examination, unspecified Paroxysmal atrial fibrillation (HCC) Atrial fibrillation Coronary artery disease involving [place] coronary artery of [place] heart without angina pectoris Essential hypertension Unspecified essential hypertension Thrombocytopenia (HCC) Thrombocytopenia, unspecified Anemia, unspecified type Stage 3b chronic kidney disease (HCC) Leg swelling Swelling of limb Depression, unspecified depression type BPH associated with nocturia Hypertrophy of prostate with urinary obstruction and other lower urinary tract symptoms (LUTS) Diffuse large B-cell lymphoma of intra-abdominal lymph nodes (HCC) Other malignant lymphomas of intra-abdominal lymph nodes Hyperlipidemia, mixed Mixed hyperlipidemia Hyperparathyroidism (HCC) Hyperparathyroidism, unspecified Physical debility Debility, unspecified Class 1 obesity due to excess calories with serious comorbidity and body mass index (BMI) of 33.0 to 33.9 in adult Other proteinuria- Primary Stage 4 chronic kidney disease (HCC) Vitamin D deficiency Unspecified vitamin D deficiency Anemia of renal disease Anemia in chronic kidney disease Secondary hyperparathyroidism of renal origin (HCC) Secondary hyperparathyroidism (of renal origin) [facility]* Diagnosis Neutropenic sepsis (HCC) Unspecified septicemia Pulmonary granulomatosis (HCC)- Primary Other diseases of lung, not elsewhere classified Sepsis due to gram-negative UTI (HCC) (HCC) Nephrostomy status (HCC) Status of other artificial opening of urinary tract Sepsis due to gram-negative UTI (HCC) (HCC) Elevated lactic acid level Acidosis Hypomagnesemia Disorders of magnesium metabolism Hyperglycemia Other abnormal glucose Pre-operative examination- Primary Preoperative examination, unspecified Paroxysmal atrial fibrillation (HCC) Atrial fibrillation Coronary artery disease involving [place] coronary artery of [place] heart without angina pectoris Essential hypertension Unspecified essential hypertension Thrombocytopenia (HCC) Thrombocytopenia, unspecified Anemia, unspecified type Stage 3b chronic kidney disease (HCC) Leg swelling Swelling of limb Depression, unspecified depression type BPH associated with nocturia Hypertrophy of prostate with urinary obstruction and other lower urinary tract symptoms (LUTS) Diffuse large B-cell lymphoma of intra-abdominal lymph nodes (HCC) Other malignant lymphomas of intra-abdominal lymph nodes Hyperlipidemia, mixed Mixed hyperlipidemia Hyperparathyroidism (HCC) Hyperparathyroidism, unspecified Physical debility Debility, unspecified Class 1 obesity due to excess calories with serious comorbidity and body mass index (BMI) of 33.0 to 33.9 in adult Type 2 diabetes mellitus with chronic kidney disease, with long-term current use of insulin, unspecified CKD stage (HCC)- Primary History of amputation of right great toe (HCC) Obesity, Class II, BMI 35-39.9 Obesity, unspecified documented in this encounter [facility] note* Diagnosis Neutropenic sepsis (HCC) Unspecified septicemia Pulmonary granulomatosis (HCC)- Primary Other diseases of lung, not elsewhere classified Sepsis due to gram-negative UTI (HCC) (HCC) Nephrostomy status (HCC) Status of other artificial opening of urinary tract Sepsis due to gram-negative UTI (HCC) (HCC) Elevated lactic acid level Acidosis Hypomagnesemia Disorders of magnesium metabolism Hyperglycemia Other abnormal glucose Pre-operative examination- Primary Preoperative examination, unspecified Paroxysmal atrial fibrillation (HCC) Atrial fibrillation Coronary artery disease involving [place] coronary artery of [place] heart without angina pectoris Essential hypertension Unspecified essential hypertension Thrombocytopenia (HCC) Thrombocytopenia, unspecified Anemia, unspecified type Stage 3b chronic kidney disease (HCC) Leg swelling Swelling of limb Depression, unspecified depression type BPH associated with nocturia Hypertrophy of prostate with urinary obstruction and other lower urinary tract symptoms (LUTS) Diffuse large B-cell lymphoma of intra-abdominal lymph nodes (HCC) Other malignant lymphomas of intra-abdominal lymph nodes Hyperlipidemia, mixed Mixed hyperlipidemia Hyperparathyroidism (HCC) Hyperparathyroidism, unspecified Physical debility Debility, unspecified Class 1 obesity due to excess calories with serious comorbidity and body mass index (BMI) of 33.0 to 33.9 in adult Post-operative state- Primary Other postprocedural status S/P arthroscopic knee surgery Other postprocedural status Synovitis and tenosynovitis of knee documented in this encounter [facility] note* Diagnosis Neutropenic sepsis (HCC) Unspecified septicemia Pulmonary granulomatosis (HCC)- Primary Other diseases of lung, not elsewhere classified Sepsis due to gram-negative UTI (HCC) (HCC) Nephrostomy status (HCC) Status of other artificial opening of urinary tract Sepsis due to gram-negative UTI (HCC) (HCC) Elevated lactic acid level Acidosis Hypomagnesemia Disorders of magnesium metabolism Hyperglycemia Other abnormal glucose Pre-operative examination- Primary Preoperative examination, unspecified Paroxysmal atrial fibrillation (HCC) Atrial fibrillation Coronary artery disease involving [place] coronary artery of [place] heart without angina pectoris Essential hypertension Unspecified essential hypertension Thrombocytopenia (HCC) Thrombocytopenia, unspecified Anemia, unspecified type Stage 3b chronic kidney disease (HCC) Leg swelling Swelling of limb Depression, unspecified depression type BPH associated with nocturia Hypertrophy of prostate with urinary obstruction and other lower urinary tract symptoms (LUTS) Diffuse large B-cell lymphoma of intra-abdominal lymph nodes (HCC) Other malignant lymphomas of intra-abdominal lymph nodes Hyperlipidemia, mixed Mixed hyperlipidemia Hyperparathyroidism (HCC) Hyperparathyroidism, unspecified Physical debility Debility, unspecified Class 1 obesity due to excess calories with serious comorbidity and body mass index (BMI) of 33.0 to 33.9 in adult Type 2 diabetes mellitus with diabetic polyneuropathy, without long-term current use of insulin (HCC) documented in this encounter [facility] note* Diagnosis Neutropenic sepsis (HCC) Unspecified septicemia Pulmonary granulomatosis (HCC)- Primary Other diseases of lung, not elsewhere classified Sepsis due to gram-negative UTI (HCC) (HCC) Nephrostomy status (HCC) Status of other artificial opening of urinary tract Sepsis due to gram-negative UTI (HCC) (HCC) Elevated lactic acid level Acidosis Hypomagnesemia Disorders of magnesium metabolism Hyperglycemia Other abnormal glucose Pre-operative examination- Primary Preoperative examination, unspecified Paroxysmal atrial fibrillation (HCC) Atrial fibrillation Coronary artery disease involving [place] coronary artery of [place] heart without angina pectoris Essential hypertension Unspecified essential hypertension Thrombocytopenia (HCC) Thrombocytopenia, unspecified Anemia, unspecified type Stage 3b chronic kidney disease (HCC) Leg swelling Swelling of limb Depression, unspecified depression type BPH associated with nocturia Hypertrophy of prostate with urinary obstruction and other lower urinary tract symptoms (LUTS) Diffuse large B-cell lymphoma of intra-abdominal lymph nodes (HCC) Other malignant lymphomas of intra-abdominal lymph nodes Hyperlipidemia, mixed Mixed hyperlipidemia Hyperparathyroidism (HCC) Hyperparathyroidism, unspecified Physical debility Debility, unspecified Class 1 obesity due to excess calories with serious comorbidity and body mass index (BMI) of 33.0 to 33.9 in adult Type 2 diabetes mellitus with diabetic polyneuropathy, without long-term current use of insulin (HCC) documented in this encounter [facility] note* Diagnosis Neutropenic sepsis (HCC) Unspecified septicemia Pulmonary granulomatosis (HCC)- Primary Other diseases of lung, not elsewhere classified Sepsis due to gram-negative UTI (HCC) (HCC) Nephrostomy status (HCC) Status of other artificial opening of urinary tract Sepsis due to gram-negative UTI (HCC) (HCC) Elevated lactic acid level Acidosis Hypomagnesemia Disorders of magnesium metabolism Hyperglycemia Other abnormal glucose Pre-operative examination- Primary Preoperative examination, unspecified Paroxysmal atrial fibrillation (HCC) Atrial fibrillation Coronary artery disease involving [place] coronary artery of [place] heart without angina pectoris Essential hypertension Unspecified essential hypertension Thrombocytopenia (HCC) Thrombocytopenia, unspecified Anemia, unspecified type Stage 3b chronic kidney disease (HCC) Leg swelling Swelling of limb Depression, unspecified depression type BPH associated with nocturia Hypertrophy of prostate with urinary obstruction and other lower urinary tract symptoms (LUTS) Diffuse large B-cell lymphoma of intra-abdominal lymph nodes (HCC) Other malignant lymphomas of intra-abdominal lymph nodes Hyperlipidemia, mixed Mixed hyperlipidemia Hyperparathyroidism (HCC) Hyperparathyroidism, unspecified Physical debility Debility, unspecified Class 1 obesity due to excess calories with serious comorbidity and body mass index (BMI) of 33.0 to 33.9 in adult Type 2 diabetes mellitus with chronic kidney disease, with long-term current use of insulin, unspecified CKD stage (HCC) documented in this encounter [facility] note* Diagnosis Neutropenic sepsis (HCC) Unspecified septicemia Pulmonary granulomatosis (HCC)- Primary Other diseases of lung, not elsewhere classified Sepsis due to gram-negative UTI (HCC) (HCC) Nephrostomy status (HCC) Status of other artificial opening of urinary tract Sepsis due to gram-negative UTI (HCC) (HCC) Elevated lactic acid level Acidosis Hypomagnesemia Disorders of magnesium metabolism Hyperglycemia Other abnormal glucose Pre-operative examination- Primary Preoperative examination, unspecified Paroxysmal atrial fibrillation (HCC) Atrial fibrillation Coronary artery disease involving [place] coronary artery of [place] heart without angina pectoris Essential hypertension Unspecified essential hypertension Thrombocytopenia (HCC) Thrombocytopenia, unspecified Anemia, unspecified type Stage 3b chronic kidney disease (HCC) Leg swelling Swelling of limb Depression, unspecified depression type BPH associated with nocturia Hypertrophy of prostate with urinary obstruction and other lower urinary tract symptoms (LUTS) Diffuse large B-cell lymphoma of intra-abdominal lymph nodes (HCC) Other malignant lymphomas of intra-abdominal lymph nodes Hyperlipidemia, mixed Mixed hyperlipidemia Hyperparathyroidism (HCC) Hyperparathyroidism, unspecified Physical debility Debility, unspecified Class 1 obesity due to excess calories with serious comorbidity and body mass index (BMI) of 33.0 to 33.9 in adult Diffuse large B-cell 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) Stage 4 chronic kidney disease (HCC) Vitamin D deficiency Unspecified vitamin D deficiency [facility]* Diagnosis Neutropenic sepsis (HCC) Unspecified septicemia Pulmonary granulomatosis (HCC)- Primary Other diseases of lung, not elsewhere classified Sepsis due to gram-negative UTI (HCC) (HCC) Nephrostomy status (HCC) Status of other artificial opening of urinary tract Sepsis due to gram-negative UTI (HCC) (HCC) Elevated lactic acid level Acidosis Hypomagnesemia Disorders of magnesium metabolism Hyperglycemia Other abnormal glucose Pre-operative examination- Primary Preoperative examination, unspecified Paroxysmal atrial fibrillation (HCC) Atrial fibrillation Coronary artery disease involving [place] coronary artery of [place] heart without angina pectoris Essential hypertension Unspecified essential hypertension Thrombocytopenia (HCC) Thrombocytopenia, unspecified Anemia, unspecified type Stage 3b chronic kidney disease (HCC) Leg swelling Swelling of limb Depression, unspecified depression type BPH associated with nocturia Hypertrophy of prostate with urinary obstruction and other lower urinary tract symptoms (LUTS) Diffuse large B-cell lymphoma of intra-abdominal lymph nodes (HCC) Other malignant lymphomas of intra-abdominal lymph nodes Hyperlipidemia, mixed Mixed hyperlipidemia Hyperparathyroidism (HCC) Hyperparathyroidism, unspecified Physical debility Debility, unspecified Class 1 obesity due to excess calories with serious comorbidity and body mass index (BMI) of 33.0 to 33.9 in adult Diffuse large B-cell 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) documented in this encounter [facility] note* Diagnosis Neutropenic sepsis (HCC) Unspecified septicemia Pulmonary granulomatosis (HCC)- Primary Other diseases of lung, not elsewhere classified Sepsis due to gram-negative UTI (HCC) (HCC) Nephrostomy status (HCC) Status of other artificial opening of urinary tract Sepsis due to gram-negative UTI (HCC) (HCC) Elevated lactic acid level Acidosis Hypomagnesemia Disorders of magnesium metabolism Hyperglycemia Other abnormal glucose Pre-operative examination- Primary Preoperative examination, unspecified Paroxysmal atrial fibrillation (HCC) Atrial fibrillation Coronary artery disease involving [place] coronary artery of [place] heart without angina pectoris Essential hypertension Unspecified essential hypertension Thrombocytopenia (HCC) Thrombocytopenia, unspecified Anemia, unspecified type Stage 3b chronic kidney disease (HCC) Leg swelling Swelling of limb Depression, unspecified depression type BPH associated with nocturia Hypertrophy of prostate with urinary obstruction and other lower urinary tract symptoms (LUTS) Diffuse large B-cell lymphoma of intra-abdominal lymph nodes (HCC) Other malignant lymphomas of intra-abdominal lymph nodes Hyperlipidemia, mixed Mixed hyperlipidemia Hyperparathyroidism (HCC) Hyperparathyroidism, unspecified Physical debility Debility, unspecified Class 1 obesity due to excess calories with serious comorbidity and body mass index (BMI) of 33.0 to 33.9 in adult Diffuse large B-cell lymphoma of extranodal site- Primary Other malignant lymphomas, unspecified site, extranodal and solid organ sites documented [facility] encounter [facility]* Diagnosis Neutropenic sepsis (HCC) Unspecified septicemia Pulmonary granulomatosis (HCC)- Primary Other diseases of lung, not elsewhere classified Sepsis due to gram-negative UTI (HCC) (HCC) Nephrostomy status (HCC) Status of other artificial opening of urinary tract Sepsis due to gram-negative UTI (HCC) (HCC) Elevated lactic acid level Acidosis Hypomagnesemia Disorders of magnesium metabolism Hyperglycemia Other abnormal glucose Pre-operative examination- Primary Preoperative examination, unspecified Paroxysmal atrial fibrillation (HCC) Atrial fibrillation Coronary artery disease involving [place] coronary artery of [place] heart without angina pectoris Essential hypertension Unspecified essential hypertension Thrombocytopenia (HCC) Thrombocytopenia, unspecified Anemia, unspecified type Stage 3b chronic kidney disease (HCC) Leg swelling Swelling of limb Depression, unspecified depression type BPH associated with nocturia Hypertrophy of prostate with urinary obstruction and other lower urinary tract symptoms (LUTS) Diffuse large B-cell lymphoma of intra-abdominal lymph nodes (HCC) Other malignant lymphomas of intra-abdominal lymph nodes Hyperlipidemia, mixed Mixed hyperlipidemia Hyperparathyroidism (HCC) Hyperparathyroidism, unspecified Physical debility Debility, unspecified Class 1 obesity due to excess calories with serious comorbidity and body mass index (BMI) of 33.0 to 33.9 in adult Type 2 diabetes mellitus with chronic kidney disease, with long-term current use of insulin, unspecified CKD stage (HCC)- Primary Left-sided chest pain Screening for colon cancer Special screening for malignant neoplasms, colon documented [facility] this encounter [facility]* Diagnosis Neutropenic sepsis (HCC) Unspecified septicemia Pulmonary granulomatosis (HCC)- Primary Other diseases of lung, not elsewhere classified Sepsis due to gram-negative UTI (HCC) Nephrostomy status (HCC) Status of other artificial opening of urinary tract Sepsis due to gram-negative UTI (HCC) Elevated lactic acid level Acidosis Hypomagnesemia Disorders of magnesium metabolism Hyperglycemia Other abnormal glucose Pre-operative examination- Primary Preoperative examination, unspecified Paroxysmal atrial fibrillation (HCC) Atrial fibrillation Coronary artery disease involving [place] coronary artery of [place] heart without angina pectoris Essential hypertension Unspecified essential hypertension Thrombocytopenia Thrombocytopenia, unspecified Anemia, unspecified type Stage 3b chronic kidney disease (HCC) Leg swelling Swelling of limb Depression, unspecified depression type BPH associated with nocturia Hypertrophy of prostate with urinary obstruction and other lower urinary tract symptoms (LUTS) Diffuse large B-cell lymphoma of intra-abdominal lymph nodes (HCC) Other malignant lymphomas of intra-abdominal lymph nodes Hyperlipidemia, mixed Mixed hyperlipidemia Hyperparathyroidism (HCC) Hyperparathyroidism, unspecified Physical debility Debility, unspecified Class 1 obesity due to excess calories with serious comorbidity and body mass index (BMI) of 33.0 to 33.9 in adult Type 2 diabetes mellitus with diabetic polyneuropathy, without long-term current use of insulin (HCC) documented [facility]* Diagnosis Neutropenic sepsis (HCC) Unspecified septicemia Pulmonary granulomatosis (HCC)- Primary Other diseases of lung, not elsewhere classified Sepsis due to gram-negative UTI (HCC) Nephrostomy status (HCC) Status of other artificial opening of urinary tract Sepsis due to gram-negative UTI (HCC) Elevated lactic acid level Acidosis Hypomagnesemia Disorders of magnesium metabolism Hyperglycemia Other abnormal glucose Pre-operative examination- Primary Preoperative examination, unspecified Paroxysmal atrial fibrillation (HCC) Atrial fibrillation Coronary artery disease involving [place] coronary artery of [place] heart without angina pectoris Essential hypertension Unspecified essential hypertension Thrombocytopenia Thrombocytopenia, unspecified Anemia, unspecified type Stage 3b chronic kidney disease (HCC) Leg swelling Swelling of limb Depression, unspecified depression type BPH associated with nocturia Hypertrophy of prostate with urinary obstruction and other lower urinary tract symptoms (LUTS) Diffuse large B-cell lymphoma of intra-abdominal lymph nodes (HCC) Other malignant lymphomas of intra-abdominal lymph nodes Hyperlipidemia, mixed Mixed hyperlipidemia Hyperparathyroidism (HCC) Hyperparathyroidism, unspecified Physical debility Debility, unspecified Class 1 obesity due to excess calories with serious comorbidity and body mass index (BMI) of 33.0 to 33.9 in adult Type 2 diabetes mellitus with chronic kidney disease, with long-term current use of insulin, unspecified CKD stage (HCC) documented in this encounter [facility] note* Diagnosis Neutropenic sepsis (HCC) Unspecified septicemia Pulmonary granulomatosis (HCC)- Primary Other diseases of lung, not elsewhere classified Sepsis due to gram-negative UTI (HCC) Nephrostomy status (HCC) Status of other artificial opening of urinary tract Sepsis due to gram-negative UTI (HCC) Elevated lactic acid level Acidosis Hypomagnesemia Disorders of magnesium metabolism Hyperglycemia Other abnormal glucose Pre-operative examination- Primary Preoperative examination, unspecified Paroxysmal atrial fibrillation (HCC) Atrial fibrillation Coronary artery disease involving [place] coronary artery of [place] heart without angina pectoris Essential hypertension Unspecified essential hypertension Thrombocytopenia Thrombocytopenia, unspecified Anemia, unspecified type Stage 3b chronic kidney disease (HCC) Leg swelling Swelling of limb Depression, unspecified depression type BPH associated with nocturia Hypertrophy of prostate with urinary obstruction and other lower urinary tract symptoms (LUTS) Diffuse large B-cell lymphoma of intra-abdominal lymph nodes (HCC) Other malignant lymphomas of intra-abdominal lymph nodes Hyperlipidemia, mixed Mixed hyperlipidemia Hyperparathyroidism (HCC) Hyperparathyroidism, unspecified Physical debility Debility, unspecified Class 1 obesity due to excess calories with serious comorbidity and body mass index (BMI) of 33.0 to 33.9 in adult Diffuse large B-cell lymphoma of extranodal site- Primary Other malignant lymphomas, unspecified site, extranodal and solid organ sites documented in this encounter [facility]* Diagnosis Neutropenic sepsis (HCC) Unspecified septicemia Pulmonary granulomatosis (HCC)- Primary Other diseases of lung, not elsewhere classified Sepsis due to gram-negative UTI (HCC) Nephrostomy status (HCC) Status of other artificial opening of urinary tract Sepsis due to gram-negative UTI (HCC) Elevated lactic acid level Acidosis Hypomagnesemia Disorders of magnesium metabolism Hyperglycemia Other abnormal glucose Pre-operative examination- Primary Preoperative examination, unspecified Paroxysmal atrial fibrillation (HCC) Atrial fibrillation Coronary artery disease involving [place] coronary artery of [place] heart without angina pectoris Essential hypertension Unspecified essential hypertension Thrombocytopenia Thrombocytopenia, unspecified Anemia, unspecified type Stage 3b chronic kidney disease (HCC) Leg swelling Swelling of limb Depression, unspecified depression type BPH associated with nocturia Hypertrophy of prostate with urinary obstruction and other lower urinary tract symptoms (LUTS) Diffuse large B-cell lymphoma of intra-abdominal lymph nodes (HCC) Other malignant lymphomas of intra-abdominal lymph nodes Hyperlipidemia, mixed Mixed hyperlipidemia Hyperparathyroidism (HCC) Hyperparathyroidism, unspecified Physical debility Debility, unspecified Class 1 obesity due to excess calories with serious comorbidity and body mass index (BMI) of 33.0 to 33.9 in adult Type 2 diabetes mellitus with diabetic polyneuropathy, without long-term current use of insulin (HCC)- Primary Essential hypertension Unspecified essential hypertension Obesity, Class II, BMI 35-39.9 Obesity, unspecified Screening for colon cancer Special screening for malignant neoplasms, colon documented in this encounter [facility] note* Diagnosis Neutropenic sepsis (HCC) Unspecified septicemia Pulmonary granulomatosis (HCC)- Primary Other diseases of lung, not elsewhere classified Sepsis due to gram-negative UTI (HCC) Nephrostomy status (HCC) Status of other artificial opening of urinary tract Sepsis due to gram-negative UTI (HCC) Elevated lactic acid level Acidosis Hypomagnesemia Disorders of magnesium metabolism Hyperglycemia Other abnormal glucose Pre-operative examination- Primary Preoperative examination, unspecified Paroxysmal atrial fibrillation (HCC) Atrial fibrillation Coronary artery disease involving [place] coronary artery of [place] heart without angina pectoris Essential hypertension Unspecified essential hypertension Thrombocytopenia Thrombocytopenia, unspecified Anemia, unspecified type Stage 3b chronic kidney disease (HCC) Leg swelling Swelling of limb Depression, unspecified depression type BPH associated with nocturia Hypertrophy of prostate with urinary obstruction and other lower urinary tract symptoms (LUTS) Diffuse large B-cell lymphoma of intra-abdominal lymph nodes (HCC) Other malignant lymphomas of intra-abdominal lymph nodes Hyperlipidemia, mixed Mixed hyperlipidemia Hyperparathyroidism (HCC) Hyperparathyroidism, unspecified Physical debility Debility, unspecified Class 1 obesity due to excess calories with serious comorbidity and body mass index (BMI) of 33.0 to 33.9 in adult Hyperlipidemia, mixed Mixed hyperlipidemia documented in this encounter [facility] note* Diagnosis Neutropenic sepsis (HCC) Unspecified septicemia Pulmonary granulomatosis (HCC)- Primary Other diseases of lung, not elsewhere classified Sepsis due to gram-negative UTI (HCC) Nephrostomy status (HCC) Status of other artificial opening of urinary tract Sepsis due to gram-negative UTI (HCC) Elevated lactic acid level Acidosis Hypomagnesemia Disorders of magnesium metabolism Hyperglycemia Other abnormal glucose Pre-operative examination- Primary Preoperative examination, unspecified Paroxysmal atrial fibrillation (HCC) Atrial fibrillation Coronary artery disease involving [place] coronary artery of [place] heart without angina pectoris Essential hypertension Unspecified essential hypertension Thrombocytopenia Thrombocytopenia, unspecified Anemia, unspecified type Stage 3b chronic kidney disease (HCC) Leg swelling Swelling of limb Depression, unspecified depression type BPH associated with nocturia Hypertrophy of prostate with urinary obstruction and other lower urinary tract symptoms (LUTS) Diffuse large B-cell lymphoma of intra-abdominal lymph nodes (HCC) Other malignant lymphomas of intra-abdominal lymph nodes Hyperlipidemia, mixed Mixed hyperlipidemia Hyperparathyroidism (HCC) Hyperparathyroidism, unspecified Physical debility Debility, unspecified Class 1 obesity due to excess calories with serious comorbidity and body mass index (BMI) of 33.0 to 33.9 in adult Chronic pain syndrome documented in this encounter [facility] note* Diagnosis Neutropenic sepsis (HCC) Unspecified septicemia Pulmonary granulomatosis (HCC)- Primary Other diseases of lung, not elsewhere classified Sepsis due to gram-negative UTI (HCC) Nephrostomy status (HCC) Status of other artificial opening of urinary tract Sepsis due to gram-negative UTI (HCC) Elevated lactic acid level Acidosis Hypomagnesemia Disorders of magnesium metabolism Hyperglycemia Other abnormal glucose Pre-operative examination- Primary Preoperative examination, unspecified Paroxysmal atrial fibrillation (HCC) Atrial fibrillation Coronary artery disease involving [place] coronary artery of [place] heart without angina pectoris Essential hypertension Unspecified essential hypertension Thrombocytopenia Thrombocytopenia, unspecified Anemia, unspecified type Stage 3b chronic kidney disease (HCC) Leg swelling Swelling of limb Depression, unspecified depression type BPH associated with nocturia Hypertrophy of prostate with urinary obstruction and other lower urinary tract symptoms (LUTS) Diffuse large B-cell lymphoma of intra-abdominal lymph nodes (HCC) Other malignant lymphomas of intra-abdominal lymph nodes Hyperlipidemia, mixed Mixed hyperlipidemia Hyperparathyroidism (HCC) Hyperparathyroidism, unspecified Physical debility Debility, unspecified Class 1 obesity due to excess calories with serious comorbidity and body mass index (BMI) of 33.0 to 33.9 in adult Type 2 diabetes mellitus with diabetic polyneuropathy, without long-term current use of insulin (HCC) Chronic pain syndrome documented in this encounter [facility] note* Diagnosis Neutropenic sepsis (HCC) Unspecified septicemia Pulmonary granulomatosis (HCC)- Primary Other diseases of lung, not elsewhere classified Sepsis due to gram-negative UTI (HCC) Nephrostomy status (HCC) Status of other artificial opening of urinary tract Sepsis due to gram-negative UTI (HCC) Elevated lactic acid level Acidosis Hypomagnesemia Disorders of magnesium metabolism Hyperglycemia Other abnormal glucose Pre-operative examination- Primary Preoperative examination, unspecified Paroxysmal atrial fibrillation (HCC) Atrial fibrillation Coronary artery disease involving [place] coronary artery of [place] heart without angina pectoris Essential hypertension Unspecified essential hypertension Thrombocytopenia Thrombocytopenia, unspecified Anemia, unspecified type Stage 3b chronic kidney disease (HCC) Leg swelling Swelling of limb Depression, unspecified depression type BPH associated with nocturia Hypertrophy of prostate with urinary obstruction and other lower urinary tract symptoms (LUTS) Diffuse large B-cell lymphoma of intra-abdominal lymph nodes (HCC) Other malignant lymphomas of intra-abdominal lymph nodes Hyperlipidemia, mixed Mixed hyperlipidemia Hyperparathyroidism (HCC) Hyperparathyroidism, unspecified Physical debility Debility, unspecified Class 1 obesity due to excess calories with serious comorbidity and body mass index (BMI) of 33.0 to 33.9 in adult Dyslipidemia- Primary Other and unspecified hyperlipidemia Essential hypertension Unspecified essential hypertension Hypertriglyceridemia Pure hyperglyceridemia Paroxysmal atrial fibrillation (HCC) Atrial fibrillation Stage 3b chronic kidney disease (HCC) Diffuse large B-cell lymphoma of intra-abdominal lymph nodes (HCC) Other malignant lymphomas of intra-abdominal lymph nodes [facility]* Diagnosis Neutropenic sepsis (HCC) Unspecified septicemia Pulmonary granulomatosis (HCC)- Primary Other diseases of lung, not elsewhere classified Sepsis due to gram-negative UTI (HCC) Nephrostomy status (HCC) Status of other artificial opening of urinary tract Sepsis due to gram-negative UTI (HCC) Elevated lactic acid level Acidosis Hypomagnesemia Disorders of magnesium metabolism Hyperglycemia Other abnormal glucose Pre-operative examination- Primary Preoperative examination, unspecified Paroxysmal atrial fibrillation (HCC) Atrial fibrillation Coronary artery disease involving [place] coronary artery of [place] heart without angina pectoris Essential hypertension Unspecified essential hypertension Thrombocytopenia Thrombocytopenia, unspecified Anemia, unspecified type Stage 3b chronic kidney disease (HCC) Leg swelling Swelling of limb Depression, unspecified depression type BPH associated with nocturia Hypertrophy of prostate with urinary obstruction and other lower urinary tract symptoms (LUTS) Diffuse large B-cell lymphoma of intra-abdominal lymph nodes (HCC) Other malignant lymphomas of intra-abdominal lymph nodes Hyperlipidemia, mixed Mixed hyperlipidemia Hyperparathyroidism (HCC) Hyperparathyroidism, unspecified Physical debility Debility, unspecified Class 1 obesity due to excess calories with serious comorbidity and body mass index (BMI) of 33.0 to 33.9 in adult Type 2 diabetes mellitus with diabetic polyneuropathy, without long-term current use of insulin (HCC) documented in this encounter [facility] note* Diagnosis Neutropenic sepsis (HCC) Unspecified septicemia Pulmonary granulomatosis (HCC)- Primary Other diseases of lung, not elsewhere classified Sepsis due to gram-negative UTI (HCC) Nephrostomy status (HCC) Status of other artificial opening of urinary tract Sepsis due to gram-negative UTI (HCC) Elevated lactic acid level Acidosis Hypomagnesemia Disorders of magnesium metabolism Hyperglycemia Other abnormal glucose Pre-operative examination- Primary Preoperative examination, unspecified Paroxysmal atrial fibrillation (HCC) Atrial fibrillation Coronary artery disease involving [place] coronary artery of [place] heart without angina pectoris Essential hypertension Unspecified essential hypertension Thrombocytopenia Thrombocytopenia, unspecified Anemia, unspecified type Stage 3b chronic kidney disease (HCC) Leg swelling Swelling of limb Depression, unspecified depression type BPH associated with nocturia Hypertrophy of prostate with urinary obstruction and other lower urinary tract symptoms (LUTS) Diffuse large B-cell lymphoma of intra-abdominal lymph nodes (HCC) Other malignant lymphomas of intra-abdominal lymph nodes Hyperlipidemia, mixed Mixed hyperlipidemia Hyperparathyroidism (HCC) Hyperparathyroidism, unspecified Physical debility Debility, unspecified Class 1 obesity due to excess calories with serious comorbidity and body mass index (BMI) of 33.0 to 33.9 in adult Type 2 diabetes mellitus with diabetic polyneuropathy, without long-term current use of insulin (HCC) documented in this encounter [facility] note* Diagnosis Neutropenic sepsis (HCC) Unspecified septicemia Pulmonary granulomatosis (HCC)- Primary Other diseases of lung, not elsewhere classified Sepsis due to gram-negative UTI (HCC) Nephrostomy status (HCC) Status of other artificial opening of urinary tract Sepsis due to gram-negative UTI (HCC) Elevated lactic acid level Acidosis Hypomagnesemia Disorders of magnesium metabolism Hyperglycemia Other abnormal glucose Pre-operative examination- Primary Preoperative examination, unspecified Paroxysmal atrial fibrillation (HCC) Atrial fibrillation Coronary artery disease involving [place] coronary artery of [place] heart without angina pectoris Essential hypertension Unspecified essential hypertension Thrombocytopenia Thrombocytopenia, unspecified Anemia, unspecified type Stage 3b chronic kidney disease (HCC) Leg swelling Swelling of limb Depression, unspecified depression type BPH associated with nocturia Hypertrophy of prostate with urinary obstruction and other lower urinary tract symptoms (LUTS) Diffuse large B-cell lymphoma of intra-abdominal lymph nodes (HCC) Other malignant lymphomas of intra-abdominal lymph nodes Hyperlipidemia, mixed Mixed hyperlipidemia Hyperparathyroidism (HCC) Hyperparathyroidism, unspecified Physical debility Debility, unspecified Class 1 obesity due to excess calories with serious comorbidity and body mass index (BMI) of 33.0 to 33.9 in adult Type 2 diabetes mellitus with diabetic polyneuropathy, without long-term current use of insulin (HCC) documented in this encounter [facility] noteNo assessment information availableWFort Hamilton Hospital Work Phone: Hospital Discharge instructionsAdditional Instructions Watch your blood sugars closely. Take your medications as prescribed. Call and follow-up your primary care physician on Thursday. Return if feeling worse. Off work today through Thursday inclusive.[facility] Work Phone: Reason for referral (narrative)* Diagnostic Procedure Only (Routine) - Open Specialty Diagnoses / Procedures [facility]erred To Contact MOLECULAR & FUNCTIONAL IMAGING Diagnoses Diffuse large B-cell lymphoma of solid organ excluding spleen (HCC) Procedures NM PET/CT SKULL-THIGH SUBSEQUENT PET IMAGING CT ATTENUATION SKULL [place] [address] [place] [address] Molecular & Functional Imaging [address] [place] [address] Referral ID Status Reason Start Date Expiration Date V isits Requested Visits Authorized [id number] Open Auto-Generate d Referral 05/01/2022 05/31/2023 2 2 [facility] for referral (narrative)* Diagnostic Procedure Only (Routine) - Authorized Specialty Diagnoses / Procedures [facility] Referred To Contact MOLECULAR & FUNCTIONAL IMAGING Diagnoses Diffuse large B-cell lymphoma of solid organ excluding spleen (HCC) Procedures NM PET/CT SKULL-THIGH SUBSEQUENT PET IMAGING CT ATTENUATION [place] [address] [place] [address] Molecular & Functional Imaging [address] [place] [address] Referral ID Status Reason Start Date Expiration Date Visits Requested Visits Authorized [id number] Authorized Auto-Generat ed Referral 05/01/2022 05/31/2023 2 2 [facility] for visit Narrative* Diagnostic Procedure Only (Routine) - Authorized Specialty Diagnoses / Procedures [facility] Referred To Contact MOLECULAR & FUNCTIONAL IMAGING Diagnoses Diffuse large B-cell lymphoma of solid organ excluding spleen (HCC) Procedures NM PET/CT SKULL-THIGH SUBSEQUENT PET IMAGING CT ATTENUATION SKULL [place] [address] [place] [address] Molecular & Functional Imaging [address] [place], [place] [id number] Referral ID Status Reason Start Date Expiration Date Visits Requested Visits Authorized [id number] Authorized Auto-Generat ed Referral 05/01/2022 05/31/2023 2 2 [facility] for visit Narrative* Diagnostic Procedure Only (Routine) - Closed Specialty Diagnoses / Procedures Referred By [facility] Referred To Contact MOLECULAR & FUNCTIONAL IMAGING Diagnoses Paroxysmal atrial fibrillation (HCC) Procedures NM CARDIAC PERF STRESS/EXERCISE MYOCARDIAL SPECT MULTIPLE STUDIES Xochitl Becerra, [employer]ER [address] [address] Molecular & Functional Imaging [address] [place] [address] Referral ID Status Reason Start Date Expiration Date V isits Requested Visits Authorized [id number] Closed Auto-Generate d Referral 02/04/2023 08/03/2023 2 2 [facility] for visit Narrative* MRI/CT (Routine) - Closed Specialty Diagnoses / Procedures Referred By [facility] Referred To Contact CT IMAGING Diagnoses Diffuse large B-cell 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) Procedures CT ABD/PEL WO IVCON CT ABD & PELVIS [place] [address] [place] [address] Phone: tel: fax: [facility] [place] [id number] Referral ID Status Reason Start Date Expiration Date V isits Requested Visits Authorized [id number] Closed Auto-Generate d Referral 11/14/2024 05/13/2025 1 1 [facility] Summary Purpose Family History No Family History Records FoundNo Family History Records FoundNo Family History Records FoundNo Family History Records FoundNo Family History Records FoundNo Family History Records FoundNo Family History Records FoundNo Family History Records FoundNo Family History Records Found Advance Directives No Advanced Directives Records FoundDocuments on File Type Date Recorded Patient Roller 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 Expl anation Advance Directive(s) 05/14/2021 11:20 AM Advance Directive(s) 04/05/2021 6:15 AM Advance Directive(s) 02/08/2021 9:46 AM AD V DIR ON FILE 2018 Advance Directive(s) 02/08/2021 9:49 AM AD V DIR ON FILE 2019 Advance Directive(s) 12/12/2020 7:57 AM Advance Directive(s) 09/07/2020 7:31 AM Advance Directive(s) 08/03/2020 7:03 AM Advance Directive(s) 06/21/2020 12:46 PM Advance Directive(s) 06/15/2020 5:44 AM Advance Directive(s) 05/23/2020 12:29 PM Advance Directive(s) 04/19/2020 5:53 PM Advance Directive(s) 02/20/2020 10:17 AM Advance Directive(s) 01/26/2020 10:03 AM Advance Directive(s) 01/02/2020 9:49 AM Advance Directive(s) 12/30/2019 9:12 AM Advance Directive(s) 10/26/2019 5:45 PM Advance Directive(s) 10/25/2019 2:53 PM Advance Directive(s) 09/13/2019 6:21 PM Advance Directive(s) 09/12/2019 8:07 PM Advance Directive(s) 08/30/2019 1:59 PM AD V DIR ON FILE 2019 Advance Directive(s) 08/08/2019 7:28 AM Advance Directive(s) 07/28/2019 11:18 AM Advance Directive(s) 07/02/2019 12:15 PM Advance Directive(s) 07/01/2019 10:05 AM Advance Directive(s) 06/29/2019 10:19 PM Advance Directive(s) 05/22/2019 6:00 PM Documents on File Type Date Recorded Patient Roller Varnisher Expl anation Advance Directive(s) 05/14/2021 11:20 AM Advance Directive(s) 04/05/2021 6:15 AM Advance Directive(s) 02/08/2021 9:46 AM AD V DIR ON FILE 2019 Advance Directive(s) 02/08/2021 9:49 AM AD V DIR ON FILE 2018 Advance Directive(s) 12/12/2020 7:57 AM Advance Directive(s) 09/07/2020 7:31 AM Advance Directive(s) 08/03/2020 7:03 AM Advance Directive(s) 06/21/2020 12:46 PM Advance Directive(s) 06/15/2020 5:44 AM Advance Directive(s) 05/23/2020 12:29 PM Advance Directive(s) 04/19/2020 5:53 PM Advance Directive(s) 02/20/2020 10:17 AM Advance Directive(s) 01/26/2020 10:03 AM Advance Directive(s) 01/02/2020 9:49 AM Advance Directive(s) 12/30/2019 9:12 AM Advance Directive(s) 10/26/2019 5:45 PM Advance Directive(s) 10/25/2019 2:53 PM Advance Directive(s) 09/13/2019 6:21 PM Advance Directive(s) 09/12/2019 8:07 PM Advance Directive(s) 08/30/2019 1:59 PM AD V DIR ON FILE 2018 Advance Directive(s) 08/08/2019 7:28 AM Advance Directive(s) 07/28/2019 11:18 AM Advance Directive(s) 07/02/2019 12:15 PM Advance Directive(s) 07/01/2019 10:05 AM Advance Directive(s) 06/29/2019 10:19 PM Advance Directive(s) 05/22/2019 6:00 PM Documents on File Type Date Recorded Patient Roller Varnisher Expl anation Advance Directive(s) 05/21/2022 12:48 PM Advance Directive(s) 05/14/2021 11:20 AM Advance Directive(s) 04/05/2021 6:15 AM Advance Directive(s) 02/08/2021 9:46 AM AD V DIR ON FILE 2018 Advance Directive(s) 02/08/2021 9:49 AM AD V DIR ON FILE 2018 Advance Directive(s) 12/12/2020 7:57 AM Advance Directive(s) 09/07/2020 7:31 AM Advance Directive(s) 08/03/2020 7:03 AM Advance Directive(s) 06/21/2020 12:46 PM Advance Directive(s) 06/15/2020 5:44 AM Advance Directive(s) 05/23/2020 12:29 PM Advance Directive(s) 04/19/2020 5:53 PM Advance Directive(s) 02/20/2020 10:17 AM Advance Directive(s) 01/26/2020 10:03 AM Advance Directive(s) 01/02/2020 9:49 AM Advance Directive(s) 12/30/2019 9:12 AM Advance Directive(s) 10/26/2019 5:45 PM Advance Directive(s) 10/25/2019 2:53 PM Advance Directive(s) 09/13/2019 6:21 PM Advance Directive(s) 09/12/2019 8:07 PM Advance Directive(s) 08/30/2019 1:59 PM AD V DIR ON FILE 2019 Advance Directive(s) 08/08/2019 7:28 AM Advance Directive(s) 07/28/2019 11:18 AM Advance Directive(s) 07/02/2019 12:15 PM Advance Directive(s) 07/01/2019 10:05 AM Advance Directive(s) 06/29/2019 10:19 PM Advance Directive(s) 05/22/2019 6:00 PM Documents on File Type Date Recorded Patient Roller Varnisher Expl anation Advance Directive(s) 05/23/2022 8:38 AM Advance Directive(s) 05/21/2022 12:48 PM Advance Directive(s) 05/14/2021 11:20 AM Advance Directive(s) 04/05/2021 6:15 AM Advance Directive(s) 02/08/2021 9:46 AM AD V DIR ON FILE 2018 Advance Directive(s) 02/08/2021 9:49 AM AD V DIR ON FILE 2018 Advance Directive(s) 12/12/2020 7:57 AM Advance Directive(s) 09/07/2020 7:31 AM Advance Directive(s) 08/03/2020 7:03 AM Advance Directive(s) 06/21/2020 12:46 PM Advance Directive(s) 06/15/2020 5:44 AM Advance Directive(s) 05/23/2020 12:29 PM Advance Directive(s) 04/19/2020 5:53 PM Advance Directive(s) 02/20/2020 10:17 AM Advance Directive(s) 01/26/2020 10:03 AM Advance Directive(s) 01/02/2020 9:49 AM Advance Directive(s) 12/30/2019 9:12 AM Advance Directive(s) 10/26/2019 5:45 PM Advance Directive(s) 10/25/2019 2:53 PM Advance Directive(s) 09/13/2019 6:21 PM Advance Directive(s) 09/12/2019 8:07 PM Advance Directive(s) 08/30/2019 1:59 PM AD V DIR ON FILE 2018 Advance Directive(s) 08/08/2019 7:28 AM Advance Directive(s) 07/28/2019 11:18 AM Advance Directive(s) 07/02/2019 12:15 PM Advance Directive(s) 07/01/2019 10:05 AM Advance Directive(s) 06/29/2019 10:19 PM Advance Directive(s) 05/22/2019 6:00 PM Documents on File Type Date Recorded Patient Roller Varnisher Expl anation Advance Directive(s) 08/30/2019 1:59 PM AD V DIR ON FILE 2018 Documents on File Type Date Recorded Patient Roller Varnisher Expl anation Advance Directive(s) 08/30/2019 1:59 PM AD V DIR ON FILE 2018 Latest Code Status on File Code Status Date Activated Date Inactivated Comments Full Code 01/09/2023 5:56 PM Full Code Order Discussed With: Patient Latest Code Status on File Code Status Date Activated Date Inactivated Comments Full Code 01/09/2023 5:56 PM 01/15/2023 5:05 PM Latest Code Status on File Code Status Date Activated Date Inactivated Comments Full Code 01/09/2023 5:56 PM 01/15/2023 5:05 PM Latest Code Status on File Code Status Date Activated Date Inactivated Comments Full Code 01/09/2023 5:56 PM 01/15/2023 5:05 PM Question Answer Comments Full Code Order Discussed With: Patient Latest Code Status on File Code Status Date Activated Date Inactivated Comments Full Code 01/09/2023 5:56 PM 01/15/2023 5:05 PM Question Answer Comments Full Code Order Discussed With: Patient Date Activated Date Inactivated Comments 01/09/2023 5:56 PM 01/15/2023 5:05 PM Question Answer Comments Full Code Order Discussed With: Patient Date Activated Date Inactivated Comments 01/09/2023 5:56 PM 01/15/2023 5:05 PM Question Answer Comments Full Code Order Discussed With: Patient Date Activated Date Inactivated Comments 05/12/2024 10:56 AM Date Activated Date Inactivated Comments 01/09/2023 5:56 PM 01/15/2023 5:05 PM Question Answer Comments Full Code Order Discussed With: Patient Date Activated Date Inactivated Comments 05/12/2024 10:56 AM 05/19/2024 8:28 PM Date Activated Date Inactivated Comments 01/09/2023 5:56 PM 01/15/2023 5:05 PM Question Answer Comments Full Code Order Discussed With: Patient Date Activated Date Inactivated Comments 05/25/2024 5:49 PM Date Activated Date Inactivated Comments 05/12/2024 10:56 AM 05/19/2024 8:28 PM Date Activated Date Inactivated Comments 01/09/2023 5:56 PM 01/15/2023 5:05 PM Question Answer Comments Full Code Order Discussed With: Patient Date Activated Date Inactivated Comments 06/07/2024 10:00 AM Date Activated Date Inactivated Comments 05/25/2024 5:49 PM 06/06/2024 3:02 PM Date Activated Date Inactivated Comments 05/12/2024 10:56 AM 05/19/2024 8:28 PM Date Activated Date Inactivated Comments 01/09/2023 5:56 PM 01/15/2023 5:05 PM Question Answer Comments Full Code Order Discussed With: Patient Date Activated Date Inactivated Comments 06/07/2024 10:00 AM 06/13/2024 5:14 PM Documents on File Type Date Recorded Patient Roller Varnisher Expl anation Advance Directive(s) 06/20/2024 2:30 PM Advance Directive(s) 08/30/2019 1:59 PM AD V DIR ON FILE 2018 Documents on File Type Date Recorded Patient Roller Varnisher Expl anation Advance Directive(s) 06/20/2024 2:30 PM Advance Directive(s) 08/30/2019 1:59 PM AD V DIR ON FILE 2019 Date Activated Date Inactivated Comments 06/07/2024 10:00 AM 06/13/2024 5:14 PM Date Activated Date Inactivated Comments 05/25/2024 5:49 PM 06/06/2024 3:02 PM Date Activated Date Inactivated Comments 05/12/2024 10:56 AM 05/19/2024 8:28 PM Question Answer Comments Full Code Order Discussed With: Patient Date Activated Date Inactivated Comments 01/09/2023 5:56 PM 01/15/2023 5:05 PM Question Answer Comments Full Code Order Discussed With: Patient Advance Directive Response Recorded Date/ Time Do you have a Healthcare Power of Candy Separator Enrobing? No June 02, 2025 3:04pm Reason for Referral Specialty Diagnoses / Procedures Referred By Zachary t Referred To Contact CT IMAGING Diagnoses Diffuse large B-cell 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) Procedures CT CHEST W IVCON CAT SCAN [place] [address] [place] [address] Ct Imaging Referral ID Status Reason Start Date Expiration Date V isits Requested Visits Authorized [id number] Closed Auto-Generate d Referral 03/18/2022 05/17/2022 1 1 Specialty Diagnoses / Procedures Referred By Contac t Referred To Contact CT IMAGING Diagnoses Diffuse large B-cell 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) Procedures CT ABD/PEL W IVCON CT ABD & PELVIS W/[place] [address] [place] [address] Ct Imaging Referral ID Status Reason Start Date Expiration Date V isits Requested Visits Authorized [id number] Closed Auto-Generate d Referral 03/18/2022 05/17/2022 1 1 Specialty Diagnoses / Procedures Referred By Contac t Referred To Contact MR IMAGING Diagnoses Diffuse large B-cell 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) Procedures MRI PELVIS WO/W IVCON MRI PELVIS W/O & W/[place] [address] [place] [address] Mr Imaging Referral ID Status Reason Start Date Expiration Date V isits Requested Visits Authorized [id number] Open Auto-Generate d Referral 06/20/2022 07/20/2023 1 1 Specialty Diagnoses / Procedures Referred By Contac t Referred To Contact CT IMAGING Diagnoses Left lower quadrant abdominal pain Procedures CT PELVIS W IVCON CT PELVIS W/CONTRAST MATERIAL Cheyanne Farah, [address] [place] [address] Ct Imaging Referral ID Status Reason Start Date Expiration Date V isits Requested Visits Authorized [id number] Closed Auto-Generate d Referral 08/08/2022 02/04/2023 1 1 Specialty Diagnoses / Procedures Referred By Contac t Referred To Contact CT IMAGING Diagnoses Diffuse large B-cell lymphoma, unspecified body region (HCC) Procedures CT CHEST W IVCON DIAGNOSTIC COMPUTED TOMOGRAPHY THORAX W/[place] [address] [place] [id number] Imaging Referral ID Status Reason Start Date Expiration Date Visits Requested Visits Authorized [id number] Pending Review Auto-Generat ed Referral 02/19/2023 09/20/2023 1 1 Specialty Diagnoses / Procedures Referred By Contac t Referred To Contact CT IMAGING Diagnoses Diffuse large B-cell lymphoma, unspecified body region (HCC) Procedures CT ABD/PEL W IVCON CT ABD & PELVIS W/[place] [address] [place] [id number] Imaging Referral ID Status Reason Start Date Expiration Date Visits Requested Visits Authorized [id number] Pending Review Auto-Generat ed Referral 02/19/2023 09/20/2023 1 1 Specialty Diagnoses / Procedures Referred By Contac t Referred To Contact CT IMAGING Diagnoses NHL (nodular histiocytic lymphoma) (HCC) Procedures CT CHEST W IVCON DIAGNOSTIC COMPUTED TOMOGRAPHY THORAX W/[place] [address] [place] [id number] Imaging Referral ID Status Reason Start Date Expiration Date Visits Requested Visits Authorized [id number] Pending Review Auto-Generat ed Referral 02/19/2023 03/20/2024 1 1 Specialty Diagnoses / Procedures Referred By Contac t Referred To Contact CT IMAGING Diagnoses NHL (nodular histiocytic lymphoma) (HCC) Procedures CT ABD/PEL W IVCON CT ABD & PELVIS W/[place] [address] [place] [id number] Imaging Referral ID Status Reason Start Date Expiration Date Visits Requested Visits Authorized [id number] Pending Review Auto-Generat ed Referral 02/19/2023 03/20/2024 1 1 Specialty Diagnoses / Procedures Referred By Contac t Referred To Contact CT IMAGING Diagnoses NHL (nodular histiocytic lymphoma) (HCC) Procedures CT ABD/PEL WO IVCON CT ABD & PELVIS W/O CONTRAST Danelle Lee, [employer].MI[employer] FEEDER [address] [place] [address] [place] [address] Referral ID Status Reason Start Date Expiration Date Visits Requested Visits Authorized [id number] Waiting for Online Response Auto-Genera lindsey Referral Patient Cleared - Admin/Chair man/Directo r advise to proceed or did not respond 06/30/2023 07/29/2024 1 1 Specialty Diagnoses / Procedures Referred By Contac t Referred To Contact CT IMAGING Diagnoses NHL (nodular histiocytic lymphoma) (HCC) Procedures CT CHEST WO IVCON DIAGNOSTIC COMPUTED TOMOGRAPHY THORAX W/O CNTRST Danelle Lee, WAREHOUSE UNLOADER.MILL FEEDER [address] [place] [address] [place] [address] Referral ID Status Reason Start Date Expiration Date Visits Requested Visits Authorized [id number] Waiting for Online Response Auto-Genera [email or web address] Referral Patient Cleared - Admin/Chair man/Directo r advise to proceed or did not respond 06/30/2023 07/29/2024 1 1 Specialty Diagnoses / Procedures Referred By Contac t Referred To Contact Najma Bloom DO [address] [place] [address] Referral ID Status Reason Start Date Expiration Date Visits Re quested Visits Authorized [id number] Closed 1 1 Specialty Diagnoses / Procedures Referred By Contac t Referred To Contact CT IMAGING Diagnoses Diffuse large B-cell 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) Procedures CT ABD/PEL WO IVCON CT ABD & PELVIS W/[place] [address] [place] [id number] [place] [address] Referral ID Status Reason Start Date Expiration Date Visits Requested Visits Authorized [id number] Pending Review Auto-Generat ed Referral 12/05/2024 04/03/2025 1 1 Specialty Diagnoses / Procedures Referred By Contac t Referred To Contact CT IMAGING Diagnoses Diffuse large B-cell 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) Procedures CT CHEST WO IVCON DIAGNOSTIC COMPUTED TOMOGRAPHY THORAX W/[place] [address] [place] [id number] [place] [address] Referral ID Status Reason Start Date Expiration Date Visits Requested Visits Authorized [id number] Pending Review Auto-Generat ed Referral 12/05/2024 04/03/2025 1 1 Specialty Diagnoses / Procedures Referred By Contac t Referred To Contact Diagnoses Acute pain of left knee Procedures CONSULT TO ORTHOPAEDICS OFFICE/OUTPATIENT [facility] 60 MINUTES Najma Bloom, DO [address] [place] [address] Cristhian Kenyon [address] [place] [id number] Referral ID Status Reason Start Date Expiration Date Visits Requested Visits Authorized [id number] Authorized PCP Requested Referral 05/25/2024 05/25/2025 1 1 Specialty Diagnoses / Procedures Referred By Contac t Referred To Contact Diagnoses Type 2 diabetes mellitus with diabetic polyneuropathy, without long-term current use of insulin ([facility]) Najma Bloom, DO [address] [place] [address] Referral ID Status Reason Start Date Expiration Date Visits Re quested Visits Authorized [id number] Closed 1 1 Specialty Diagnoses / Procedures Referred By Contac t Referred To Contact Rheumatology Diagnoses Synovitis and tenosynovitis of knee Procedures CONSULT TO RHEUM/IMMUN DISEASE OFFICE/OUTPATIENT [facility] 60 MINUTES Aide Quintanilla PA-C [address] [place] [address] Referral ID Status Reason Start Date Expiration Date Visits Requested Visits Authorized [id number] Authorized PCP Requested Referral 07/28/2024 07/28/2025 1 1 Referral ID Status Reason Start Date Expiration Date Visits Re quested Visits Authorized [id number] Closed 1 1 Health Concerns Infection Onset Date Last Indicated Resolved Time COVID-19 Confirmed 12/14/2022 12/14/2022 Infection Onset Date Last Indicated Resolved Time COVID-19 Confirmed 12/14/2022 12/14/2022 8:52 PM EST Medications Administered Section Inactive Administered Medications - up to 3 most recent administrations Medication Order MAR Action Action Date Dose Rate Site regadenoson 0.4 mg injection (LEXISCAN) 0.4 mg, INTRAVENOUS, ONCE, 1 dose, On [place] 02/26/23 at 1030, Give 0.4 mg (5 mL) over ~10 seconds, followed immediately by a 5 mL saline flush. Wait 10-20 seconds, then administer the radionuclide myocardial perfusion imaging agent. Given 02/26/2023 9:45 AM EDT 0.4 mg Chief Complaint and Reason for Visit Chief Complaint Admit Date Chest pain June 02, 2025 2:1 2pm Additional Source Comments (unrecognized sect ion and content) No Status Records FoundNo Status Records FoundNo Status Records FoundNo Status Records FoundNo Status Records FoundNo Status Records FoundNo Status Records FoundNo Status Records FoundNo Status Records Found INFORMATION SOURCE (unrecogn ized section and content) DATE CREATED AUTHOR 01/20/2020 [facility] DATE CREATED AUTHOR AUTHOR'S ORGANIZ ATION 06/05/2020 [facility] DATE CREATED AUTHOR AUTHOR'S ORGANIZ ATION 04/06/2021 [facility] DATE CREATED AUTHOR AUTHOR'S ORGANIZ ATION 01/07/2024 [facility] DATE CREATED AUTHOR AUTHOR'S ORGANIZ ATION 05/30/2024 [facility] DATE CREATED AUTHOR AUTHOR'S ORGANIZ ATION 06/12/2024 [facility] DATE CREATED AUTHOR AUTHOR'S ORGANIZ ATION 08/06/2024 [facility] DATE CREATED AUTHOR AUTHOR'S ORGANIZ ATION 04/29/2025 [facility] DATE CREATED AUTHOR AUTHOR'S ORGANIZ ATION 06/03/2025 [facility] Source Comments (unrecognize d section and content) In the event this informatio n is protected by the Federal Confidentiality of Alcohol and Drug Abuse Patient Records regulations: The Federal rules restrict any use of the information to criminally investigate or prosecute any alcohol or drug abuse patient.[facility] the event this information is protected by the Federal Confidentiality of Alcohol and Drug Abuse Patient Records regulations: The Federal rules restrict any use of the information to criminally investigate or prosecute any alcohol or drug abuse patient.[facility] HospitalIn the event this information is protected by the Federal Confidentiality of Alcohol and Drug Abuse Patient Records regulations: The Federal rules restrict any use of the information to criminally investigate or prosecute any alcohol or drug abuse patient.[facility] HospitalIn the event this information is protected by the Federal Confidentiality of Alcohol and Drug Abuse Patient Records regulations: The Federal rules restrict any use of the information to criminally investigate or prosecute any alcohol or drug abuse patient.[facility] HospitalIn the event this information is protected by the Federal Confidentiality of Alcohol and Drug Abuse Patient Records regulations: The Federal rules restrict any use of the information to criminally investigate or prosecute any alcohol or drug abuse patient.[facility] HospitalIn the event this information is protected by the Federal Confidentiality of Alcohol and Drug Abuse Patient Records regulations: The Federal rules restrict any use of the information to criminally investigate or prosecute any alcohol or drug abuse patient.[facility] HospitalIn the event this information is protected by the Federal Confidentiality of Alcohol and Drug Abuse Patient Records regulations: The Federal rules restrict any use of the information to criminally investigate or prosecute any alcohol or drug abuse patient.[facility] HospitalIn the event this information is protected by the Federal Confidentiality of Alcohol and Drug Abuse Patient Records regulations: The Federal rules restrict any use of the information to criminally investigate or prosecute any alcohol or drug abuse patient.[facility] HospitalIn the event this information is protected by the Federal Confidentiality of Alcohol and Drug Abuse Patient Records regulations: The Federal rules restrict any use of the information to criminally investigate or prosecute any alcohol or drug abuse patient.[facility] HospitalIn the event this information is protected by the Federal Confidentiality of Alcohol and Drug Abuse Patient Records regulations: The Federal rules restrict any use of the information to criminally investigate or prosecute any alcohol or drug abuse patient.[facility] HospitalIn the event this information is protected by the Federal Confidentiality of Alcohol and Drug Abuse Patient Records regulations: The Federal rules restrict any use of the information to criminally investigate or prosecute any alcohol or drug abuse patient.[facility] HospitalIn the event this information is protected by the Federal Confidentiality of Alcohol and Drug Abuse Patient Records regulations: The Federal rules restrict any use of the information to criminally investigate or prosecute any alcohol or drug abuse patient.[facility] HospitalIn the event this information is protected by the Federal Confidentiality of Alcohol and Drug Abuse Patient Records regulations: The Federal rules restrict any use of the information to criminally investigate or prosecute any alcohol or drug abuse patient.[facility] HospitalIn the event this information is protected by the Federal Confidentiality of Alcohol and Drug Abuse Patient Records regulations: The Federal rules restrict any use of the information to criminally investigate or prosecute any alcohol or drug abuse patient.[facility] HospitalIn the event this information is protected by the Federal Confidentiality of Alcohol and Drug Abuse Patient Records regulations: The Federal rules restrict any use of the information to criminally investigate or prosecute any alcohol or drug abuse patient.[facility] HospitalIn the event this information is protected by the Federal Confidentiality of Alcohol and Drug Abuse Patient Records regulations: The Federal rules restrict any use of the information to criminally investigate or prosecute any alcohol or drug abuse patient.[facility] HospitalIn the event this information is protected by the Federal Confidentiality of Alcohol and Drug Abuse Patient Records regulations: The Federal rules restrict any use of the information to criminally investigate or prosecute any alcohol or drug abuse patient.[facility] HospitalIn the event this information is protected by the Federal Confidentiality of Alcohol and Drug Abuse Patient Records regulations: The Federal rules restrict any use of the information to criminally investigate or prosecute any alcohol or drug abuse patient.[facility] HospitalIn the event this information is protected by the Federal Confidentiality of Alcohol and Drug Abuse Patient Records regulations: The Federal rules restrict any use of the information to criminally investigate or prosecute any alcohol or drug abuse patient.[facility] HospitalIn the event this information is protected by the Federal Confidentiality of Alcohol and Drug Abuse Patient Records regulations: The Federal rules restrict any use of the information to criminally investigate or prosecute any alcohol or drug abuse patient.[facility] HospitalIn the event this information is protected by the Federal Confidentiality of Alcohol and Drug Abuse Patient Records regulations: The Federal rules restrict any use of the information to criminally investigate or prosecute any alcohol or drug abuse patient.[facility] HospitalIn the event this information is protected by the Federal Confidentiality of Alcohol and Drug Abuse Patient Records regulations: The Federal rules restrict any use of the information to criminally investigate or prosecute any alcohol or drug abuse patient.[facility] HospitalIn the event this information is protected by the Federal Confidentiality of Alcohol and Drug Abuse Patient Records regulations: The Federal rules restrict any use of the information to criminally investigate or prosecute any alcohol or drug abuse patient.[facility] HospitalIn the event this information is protected by the Federal Confidentiality of Alcohol and Drug Abuse Patient Records regulations: The Federal rules restrict any use of the information to criminally investigate or prosecute any alcohol or drug abuse patient.[facility] HospitalIn the event this information is protected by the Federal Confidentiality of Alcohol and Drug Abuse Patient Records regulations: The Federal rules restrict any use of the information to criminally investigate or prosecute any alcohol or drug abuse patient.[facility] HospitalIn the event this information is protected by the Federal Confidentiality of Alcohol and Drug Abuse Patient Records regulations: The Federal rules restrict any use of the information to criminally investigate or prosecute any alcohol or drug abuse patient.[facility] HospitalIn the event this information is protected by the Federal Confidentiality of Alcohol and Drug Abuse Patient Records regulations: The Federal rules restrict any use of the information to criminally investigate or prosecute any alcohol or drug abuse patient.[facility] HospitalIn the event this information is protected by the Federal Confidentiality of Alcohol and Drug Abuse Patient Records regulations: The Federal rules restrict any use of the information to criminally investigate or prosecute any alcohol or drug abuse patient.[facility] HospitalIn the event this information is protected by the Federal Confidentiality of Alcohol and Drug Abuse Patient Records regulations: The Federal rules restrict any use of the information to criminally investigate or prosecute any alcohol or drug abuse patient.[facility] HospitalIn the event this information is protected by the Federal Confidentiality of Alcohol and Drug Abuse Patient Records regulations: The Federal rules restrict any use of the information to criminally investigate or prosecute any alcohol or drug abuse patient.[facility] HospitalIn the event this information is protected by the Federal Confidentiality of Alcohol and Drug Abuse Patient Records regulations: The Federal rules restrict any use of the information to criminally investigate or prosecute any alcohol or drug abuse patient.[facility] HospitalIn the event this information is protected by the Federal Confidentiality of Alcohol and Drug Abuse Patient Records regulations: The Federal rules restrict any use of the information to criminally investigate or prosecute any alcohol or drug abuse patient.[facility] HospitalIn the event this information is protected by the Federal Confidentiality of Alcohol and Drug Abuse Patient Records regulations: The Federal rules restrict any use of the information to criminally investigate or prosecute any alcohol or drug abuse patient.[facility] HospitalIn the event this information is protected by the Federal Confidentiality of Alcohol and Drug Abuse Patient Records regulations: The Federal rules restrict any use of the information to criminally investigate or prosecute any alcohol or drug abuse patient.[facility] HospitalIn the event this information is protected by the Federal Confidentiality of Alcohol and Drug Abuse Patient Records regulations: The Federal rules restrict any use of the information to criminally investigate or prosecute any alcohol or drug abuse patient.[facility] HospitalIn the event this information is protected by the Federal Confidentiality of Alcohol and Drug Abuse Patient Records regulations: The Federal rules restrict any use of the information to criminally investigate or prosecute any alcohol or drug abuse patient.[facility] HospitalIn the event this information is protected by the Federal Confidentiality of Alcohol and Drug Abuse Patient Records regulations: The Federal rules restrict any use of the information to criminally investigate or prosecute any alcohol or drug abuse patient.[facility] HospitalIn the event this information is protected by the Federal Confidentiality of Alcohol and Drug Abuse Patient Records regulations: The Federal rules restrict any use of the information to criminally investigate or prosecute any alcohol or drug abuse patient.[facility] HospitalIn the event this information is protected by the Federal Confidentiality of Alcohol and Drug Abuse Patient Records regulations: The Federal rules restrict any use of the information to criminally investigate or prosecute any alcohol or drug abuse patient.[facility] HospitalIn the event this information is protected by the Federal Confidentiality of Alcohol and Drug Abuse Patient Records regulations: The Federal rules restrict any use of the information to criminally investigate or prosecute any alcohol or drug abuse patient.[facility] HospitalIn the event this information is protected by the Federal Confidentiality of Alcohol and Drug Abuse Patient Records regulations: The Federal rules restrict any use of the information to criminally investigate or prosecute any alcohol or drug abuse patient.[facility] HospitalIn the event this information is protected by the Federal Confidentiality of Alcohol and Drug Abuse Patient Records regulations: The Federal rules restrict any use of the information to criminally investigate or prosecute any alcohol or drug abuse patient.[facility] HospitalIn the event this information is protected by the Federal Confidentiality of Alcohol and Drug Abuse Patient Records regulations: The Federal rules restrict any use of the information to criminally investigate or prosecute any alcohol or drug abuse patient.[facility] HospitalIn the event this information is protected by the Federal Confidentiality of Alcohol and Drug Abuse Patient Records regulations: The Federal rules restrict any use of the information to criminally investigate or prosecute any alcohol or drug abuse patient.[facility] HospitalIn the event this information is protected by the Federal Confidentiality of Alcohol and Drug Abuse Patient Records regulations: The Federal rules restrict any use of the information to criminally investigate or prosecute any alcohol or drug abuse patient.[facility] HospitalIn the event this information is protected by the Federal Confidentiality of Alcohol and Drug Abuse Patient Records regulations: The Federal rules restrict any use of the information to criminally investigate or prosecute any alcohol or drug abuse patient.[facility] HospitalIn the event this information is protected by the Federal Confidentiality of Alcohol and Drug Abuse Patient Records regulations: The Federal rules restrict any use of the information to criminally investigate or prosecute any alcohol or drug abuse patient.[facility] HospitalIn the event this information is protected by the Federal Confidentiality of Alcohol and Drug Abuse Patient Records regulations: The Federal rules restrict any use of the information to criminally investigate or prosecute any alcohol or drug abuse patient.[facility] HospitalIn the event this information is protected by the Federal Confidentiality of Alcohol and Drug Abuse Patient Records regulations: The Federal rules restrict any use of the information to criminally investigate or prosecute any alcohol or drug abuse patient.[facility] HospitalIn the event this information is protected by the Federal Confidentiality of Alcohol and Drug Abuse Patient Records regulations: The Federal rules restrict any use of the information to criminally investigate or prosecute any alcohol or drug abuse patient.[facility] HospitalIn the event this information is protected by the Federal Confidentiality of Alcohol and Drug Abuse Patient Records regulations: The Federal rules restrict any use of the information to criminally investigate or prosecute any alcohol or drug abuse patient.[facility] HospitalIn the event this information is protected by the Federal Confidentiality of Alcohol and Drug Abuse Patient Records regulations: The Federal rules restrict any use of the information to criminally investigate or prosecute any alcohol or drug abuse patient.[facility] HospitalIn the event this information is protected by the Federal Confidentiality of Alcohol and Drug Abuse Patient Records regulations: The Federal rules restrict any use of the information to criminally investigate or prosecute any alcohol or drug abuse patient.[facility] HospitalIn the event this information is protected by the Federal Confidentiality of Alcohol and Drug Abuse Patient Records regulations: The Federal rules restrict any use of the information to criminally investigate or prosecute any alcohol or drug abuse patient.[facility] HospitalIn the event this information is protected by the Federal Confidentiality of Alcohol and Drug Abuse Patient Records regulations: The Federal rules restrict any use of the information to criminally investigate or prosecute any alcohol or drug abuse patient.[facility] HospitalIn the event this information is protected by the Federal Confidentiality of Alcohol and Drug Abuse Patient Records regulations: The Federal rules restrict any use of the information to criminally investigate or prosecute any alcohol or drug abuse patient.[facility] HospitalIn the event this information is protected by the Federal Confidentiality of Alcohol and Drug Abuse Patient Records regulations: The Federal rules restrict any use of the information to criminally investigate or prosecute any alcohol or drug abuse patient.[facility] HospitalIn the event this information is protected by the Federal Confidentiality of Alcohol and Drug Abuse Patient Records regulations: The Federal rules restrict any use of the information to criminally investigate or prosecute any alcohol or drug abuse patient.[facility] HospitalIn the event this information is protected by the Federal Confidentiality of Alcohol and Drug Abuse Patient Records regulations: The Federal rules restrict any use of the information to criminally investigate or prosecute any alcohol or drug abuse patient.[facility] HospitalIn the event this information is protected by the Federal Confidentiality of Alcohol and Drug Abuse Patient Records regulations: The Federal rules restrict any use of the information to criminally investigate or prosecute any alcohol or drug abuse patient.[facility] HospitalIn the event this information is protected by the Federal Confidentiality of Alcohol and Drug Abuse Patient Records regulations: The Federal rules restrict any use of the information to criminally investigate or prosecute any alcohol or drug abuse patient.[facility] HospitalIn the event this information is protected by the Federal Confidentiality of Alcohol and Drug Abuse Patient Records regulations: The Federal rules restrict any use of the information to criminally investigate or prosecute any alcohol or drug abuse patient.[facility] HospitalIn the event this information is protected by the Federal Confidentiality of Alcohol and Drug Abuse Patient Records regulations: The Federal rules restrict any use of the information to criminally investigate or prosecute any alcohol or drug abuse patient.[facility] HospitalIn the event this information is protected by the Federal Confidentiality of Alcohol and Drug Abuse Patient Records regulations: The Federal rules restrict any use of the information to criminally investigate or prosecute any alcohol or drug abuse patient.[facility] HospitalIn the event this information is protected by the Federal Confidentiality of Alcohol and Drug Abuse Patient Records regulations: The Federal rules restrict any use of the information to criminally investigate or prosecute any alcohol or drug abuse patient.[facility] HospitalIn the event this information is protected by the Federal Confidentiality of Alcohol and Drug Abuse Patient Records regulations: The Federal rules restrict any use of the information to criminally investigate or prosecute any alcohol or drug abuse patient.[facility] HospitalIn the event this information is protected by the Federal Confidentiality of Alcohol and Drug Abuse Patient Records regulations: The Federal rules restrict any use of the information to criminally investigate or prosecute any alcohol or drug abuse patient.[facility] HospitalIn the event this information is protected by the Federal Confidentiality of Alcohol and Drug Abuse Patient Records regulations: The Federal rules restrict any use of the information to criminally investigate or prosecute any alcohol or drug abuse patient.[facility] HospitalIn the event this information is protected by the Federal Confidentiality of Alcohol and Drug Abuse Patient Records regulations: The Federal rules restrict any use of the information to criminally investigate or prosecute any alcohol or drug abuse patient.[facility] HospitalIn the event this information is protected by the Federal Confidentiality of Alcohol and Drug Abuse Patient Records regulations: The Federal rules restrict any use of the information to criminally investigate or prosecute any alcohol or drug abuse patient.[facility] HospitalIn the event this information is protected by the Federal Confidentiality of Alcohol and Drug Abuse Patient Records regulations: The Federal rules restrict any use of the information to criminally investigate or prosecute any alcohol or drug abuse patient.[facility] HospitalIn the event this information is protected by the Federal Confidentiality of Alcohol and Drug Abuse Patient Records regulations: The Federal rules restrict any use of the information to criminally investigate or prosecute any alcohol or drug abuse patient.[facility] HospitalIn the event this information is protected by the Federal Confidentiality of Alcohol and Drug Abuse Patient Records regulations: The Federal rules restrict any use of the information to criminally investigate or prosecute any alcohol or drug abuse patient.[facility] HospitalIn the event this information is protected by the Federal Confidentiality of Alcohol and Drug Abuse Patient Records regulations: The Federal rules restrict any use of the information to criminally investigate or prosecute any alcohol or drug abuse patient.[facility] HospitalIn the event this information is protected by the Federal Confidentiality of Alcohol and Drug Abuse Patient Records regulations: The Federal rules restrict any use of the information to criminally investigate or prosecute any alcohol or drug abuse patient.[facility] HospitalIn the event this information is protected by the Federal Confidentiality of Alcohol and Drug Abuse Patient Records regulations: The Federal rules restrict any use of the information to criminally investigate or prosecute any alcohol or drug abuse patient.[facility] HospitalIn the event this information is protected by the Federal Confidentiality of Alcohol and Drug Abuse Patient Records regulations: The Federal rules restrict any use of the information to criminally investigate or prosecute any alcohol or drug abuse patient.[facility] HospitalIn the event this information is protected by the Federal Confidentiality of Alcohol and Drug Abuse Patient Records regulations: The Federal rules restrict any use of the information to criminally investigate or prosecute any alcohol or drug abuse patient.[facility] HospitalIn the event this information is protected by the Federal Confidentiality of Alcohol and Drug Abuse Patient Records regulations: The Federal rules restrict any use of the information to criminally investigate or prosecute any alcohol or drug abuse patient.[facility] HospitalIn the event this information is protected by the Federal Confidentiality of Alcohol and Drug Abuse Patient Records regulations: The Federal rules restrict any use of the information to criminally investigate or prosecute any alcohol or drug abuse patient.[facility] HospitalIn the event this information is protected by the Federal Confidentiality of Alcohol and Drug Abuse Patient Records regulations: The Federal rules restrict any use of the information to criminally investigate or prosecute any alcohol or drug abuse patient.[facility] HospitalIn the event this information is protected by the Federal Confidentiality of Alcohol and Drug Abuse Patient Records regulations: The Federal rules restrict any use of the information to criminally investigate or prosecute any alcohol or drug abuse patient.[facility] HospitalIn the event this information is protected by the Federal Confidentiality of Alcohol and Drug Abuse Patient Records regulations: The Federal rules restrict any use of the information to criminally investigate or prosecute any alcohol or drug abuse patient.[facility] HospitalIn the event this information is protected by the Federal Confidentiality of Alcohol and Drug Abuse Patient Records regulations: The Federal rules restrict any use of the information to criminally investigate or prosecute any alcohol or drug abuse patient.[facility] HospitalIn the event this information is protected by the Federal Confidentiality of Alcohol and Drug Abuse Patient Records regulations: The Federal rules restrict any use of the information to criminally investigate or prosecute any alcohol or drug abuse patient.[facility] HospitalIn the event this information is protected by the Federal Confidentiality of Alcohol and Drug Abuse Patient Records regulations: The Federal rules restrict any use of the information to criminally investigate or prosecute any alcohol or drug abuse patient.[facility] HospitalIn the event this information is protected by the Federal Confidentiality of Alcohol and Drug Abuse Patient Records regulations: The Federal rules restrict any use of the information to criminally investigate or prosecute any alcohol or drug abuse patient.[facility] HospitalIn the event this information is protected by the Federal Confidentiality of Alcohol and Drug Abuse Patient Records regulations: The Federal rules restrict any use of the information to criminally investigate or prosecute any alcohol or drug abuse patient.[facility] HospitalIn the event this information is protected by the Federal Confidentiality of Alcohol and Drug Abuse Patient Records regulations: The Federal rules restrict any use of the information to criminally investigate or prosecute any alcohol or drug abuse patient.[facility] HospitalIn the event this information is protected by the Federal Confidentiality of Alcohol and Drug Abuse Patient Records regulations: The Federal rules restrict any use of the information to criminally investigate or prosecute any alcohol or drug abuse patient.[facility] HospitalIn the event this information is protected by the Federal Confidentiality of Alcohol and Drug Abuse Patient Records regulations: The Federal rules restrict any use of the information to criminally investigate or prosecute any alcohol or drug abuse patient.[facility] HospitalIn the event this information is protected by the Federal Confidentiality of Alcohol and Drug Abuse Patient Records regulations: The Federal rules restrict any use of the information to criminally investigate or prosecute any alcohol or drug abuse patient.[facility] HospitalIn the event this information is protected by the Federal Confidentiality of Alcohol and Drug Abuse Patient Records regulations: The Federal rules restrict any use of the information to criminally investigate or prosecute any alcohol or drug abuse patient.[facility] HospitalIn the event this information is protected by the Federal Confidentiality of Alcohol and Drug Abuse Patient Records regulations: The Federal rules restrict any use of the information to criminally investigate or prosecute any alcohol or drug abuse patient.[facility] HospitalIn the event this information is protected by the Federal Confidentiality of Alcohol and Drug Abuse Patient Records regulations: The Federal rules restrict any use of the information to criminally investigate or prosecute any alcohol or drug abuse patient.[facility] HospitalIn the event this information is protected by the Federal Confidentiality of Alcohol and Drug Abuse Patient Records regulations: The Federal rules restrict any use of the information to criminally investigate or prosecute any alcohol or drug abuse patient.[facility] HospitalIn the event this information is protected by the Federal Confidentiality of Alcohol and Drug Abuse Patient Records regulations: The Federal rules restrict any use of the information to criminally investigate or prosecute any alcohol or drug abuse patient.[facility] HospitalIn the event this information is protected by the Federal Confidentiality of Alcohol and Drug Abuse Patient Records regulations: The Federal rules restrict any use of the information to criminally investigate or prosecute any alcohol or drug abuse patient.[facility] HospitalIn the event this information is protected by the Federal Confidentiality of Alcohol and Drug Abuse Patient Records regulations: The Federal rules restrict any use of the information to criminally investigate or prosecute any alcohol or drug abuse patient.[facility] HospitalIn the event this information is protected by the Federal Confidentiality of Alcohol and Drug Abuse Patient Records regulations: The Federal rules restrict any use of the information to criminally investigate or prosecute any alcohol or drug abuse patient.[facility] HospitalIn the event this information is protected by the Federal Confidentiality of Alcohol and Drug Abuse Patient Records regulations: The Federal rules restrict any use of the information to criminally investigate or prosecute any alcohol or drug abuse patient.[facility] HospitalIn the event this information is protected by the Federal Confidentiality of Alcohol and Drug Abuse Patient Records regulations: The Federal rules restrict any use of the information to criminally investigate or prosecute any alcohol or drug abuse patient.[facility] HospitalIn the event this information is protected by the Federal Confidentiality of Alcohol and Drug Abuse Patient Records regulations: The Federal rules restrict any use of the information to criminally investigate or prosecute any alcohol or drug abuse patient.[facility] HospitalIn the event this information is protected by the Federal Confidentiality of Alcohol and Drug Abuse Patient Records regulations: The Federal rules restrict any use of the information to criminally investigate or prosecute any alcohol or drug abuse patient.[facility] HospitalIn the event this information is protected by the Federal Confidentiality of Alcohol and Drug Abuse Patient Records regulations: The Federal rules restrict any use of the information to criminally investigate or prosecute any alcohol or drug abuse patient.[facility] HospitalIn the event this information is protected by the Federal Confidentiality of Alcohol and Drug Abuse Patient Records regulations: The Federal rules restrict any use of the information to criminally investigate or prosecute any alcohol or drug abuse patient.[facility] HospitalIn the event this information is protected by the Federal Confidentiality of Alcohol and Drug Abuse Patient Records regulations: The Federal rules restrict any use of the information to criminally investigate or prosecute any alcohol or drug abuse patient.[facility] HospitalIn the event this information is protected by the Federal Confidentiality of Alcohol and Drug Abuse Patient Records regulations: The Federal rules restrict any use of the information to criminally investigate or prosecute any alcohol or drug abuse patient.[facility] HospitalIn the event this information is protected by the Federal Confidentiality of Alcohol and Drug Abuse Patient Records regulations: The Federal rules restrict any use of the information to criminally investigate or prosecute any alcohol or drug abuse patient.[facility] HospitalIn the event this information is protected by the Federal Confidentiality of Alcohol and Drug Abuse Patient Records regulations: The Federal rules restrict any use of the information to criminally investigate or prosecute any alcohol or drug abuse patient.[facility] HospitalIn the event this information is protected by the Federal Confidentiality of Alcohol and Drug Abuse Patient Records regulations: The Federal rules restrict any use of the information to criminally investigate or prosecute any alcohol or drug abuse patient.[facility] HospitalIn the event this information is protected by the Federal Confidentiality of Alcohol and Drug Abuse Patient Records regulations: The Federal rules restrict any use of the information to criminally investigate or prosecute any alcohol or drug abuse patient.[facility] HospitalIn the event this information is protected by the Federal Confidentiality of Alcohol and Drug Abuse Patient Records regulations: The Federal rules restrict any use of the information to criminally investigate or prosecute any alcohol or drug abuse patient.[facility] HospitalIn the event this information is protected by the Federal Confidentiality of Alcohol and Drug Abuse Patient Records regulations: The Federal rules restrict any use of the information to criminally investigate or prosecute any alcohol or drug abuse patient.[facility] HospitalIn the event this information is protected by the Federal Confidentiality of Alcohol and Drug Abuse Patient Records regulations: The Federal rules restrict any use of the information to criminally investigate or prosecute any alcohol or drug abuse patient.[facility] HospitalIn the event this information is protected by the Federal Confidentiality of Alcohol and Drug Abuse Patient Records regulations: The Federal rules restrict any use of the information to criminally investigate or prosecute any alcohol or drug abuse patient.[facility] HospitalIn the event this information is protected by the Federal Confidentiality of Alcohol and Drug Abuse Patient Records regulations: The Federal rules restrict any use of the information to criminally investigate or prosecute any alcohol or drug abuse patient.[facility] HospitalIn the event this information is protected by the Federal Confidentiality of Alcohol and Drug Abuse Patient Records regulations: The Federal rules restrict any use of the information to criminally investigate or prosecute any alcohol or drug abuse patient.[facility] HospitalIn the event this information is protected by the Federal Confidentiality of Alcohol and Drug Abuse Patient Records regulations: The Federal rules restrict any use of the information to criminally investigate or prosecute any alcohol or drug abuse patient.[facility] HospitalIn the event this information is protected by the Federal Confidentiality of Alcohol and Drug Abuse Patient Records regulations: The Federal rules restrict any use of the information to criminally investigate or prosecute any alcohol or drug abuse patient.[facility] HospitalIn the event this information is protected by the Federal Confidentiality of Alcohol and Drug Abuse Patient Records regulations: The Federal rules restrict any use of the information to criminally investigate or prosecute any alcohol or drug abuse patient.[facility] HospitalIn the event this information is protected by the Federal Confidentiality of Alcohol and Drug Abuse Patient Records regulations: The Federal rules restrict any use of the information to criminally investigate or prosecute any alcohol or drug abuse patient.[facility] HospitalIn the event this information is protected by the Federal Confidentiality of Alcohol and Drug Abuse Patient Records regulations: The Federal rules restrict any use of the information to criminally investigate or prosecute any alcohol or drug abuse patient.[facility] HospitalIn the event this information is protected by the Federal Confidentiality of Alcohol and Drug Abuse Patient Records regulations: The Federal rules restrict any use of the information to criminally investigate or prosecute any alcohol or drug abuse patient.[facility] HospitalIn the event this information is protected by the Federal Confidentiality of Alcohol and Drug Abuse Patient Records regulations: The Federal rules restrict any use of the information to criminally investigate or prosecute any alcohol or drug abuse patient.[facility] HospitalIn the event this information is protected by the Federal Confidentiality of Alcohol and Drug Abuse Patient Records regulations: The Federal rules restrict any use of the information to criminally investigate or prosecute any alcohol or drug abuse patient.[facility] HospitalIn the event this information is protected by the Federal Confidentiality of Alcohol and Drug Abuse Patient Records regulations: The Federal rules restrict any use of the information to criminally investigate or prosecute any alcohol or drug abuse patient.[facility] HospitalIn the event this information is protected by the Federal Confidentiality of Alcohol and Drug Abuse Patient Records regulations: The Federal rules restrict any use of the information to criminally investigate or prosecute any alcohol or drug abuse patient.[facility] HospitalIn the event this information is protected by the Federal Confidentiality of Alcohol and Drug Abuse Patient Records regulations: The Federal rules restrict any use of the information to criminally investigate or prosecute any alcohol or drug abuse patient.[facility] HospitalIn the event this information is protected by the Federal Confidentiality of Alcohol and Drug Abuse Patient Records regulations: The Federal rules restrict any use of the information to criminally investigate or prosecute any alcohol or drug abuse patient.[facility] HospitalIn the event this information is protected by the Federal Confidentiality of Alcohol and Drug Abuse Patient Records regulations: The Federal rules restrict any use of the information to criminally investigate or prosecute any alcohol or drug abuse patient.[facility] HospitalIn the event this information is protected by the Federal Confidentiality of Alcohol and Drug Abuse Patient Records regulations: The Federal rules restrict any use of the information to criminally investigate or prosecute any alcohol or drug abuse patient.[facility] HospitalIn the event this information is protected by the Federal Confidentiality of Alcohol and Drug Abuse Patient Records regulations: The Federal rules restrict any use of the information to criminally investigate or prosecute any alcohol or drug abuse patient.[facility] HospitalIn the event this information is protected by the Federal Confidentiality of Alcohol and Drug Abuse Patient Records regulations: The Federal rules restrict any use of the information to criminally investigate or prosecute any alcohol or drug abuse patient.[facility] HospitalIn the event this information is protected by the Federal Confidentiality of Alcohol and Drug Abuse Patient Records regulations: The Federal rules restrict any use of the information to criminally investigate or prosecute any alcohol or drug abuse patient.[facility] HospitalIn the event this information is protected by the Federal Confidentiality of Alcohol and Drug Abuse Patient Records regulations: The Federal rules restrict any use of the information to criminally investigate or prosecute any alcohol or drug abuse patient.[facility] HospitalIn the event this information is protected by the Federal Confidentiality of Alcohol and Drug Abuse Patient Records regulations: The Federal rules restrict any use of the information to criminally investigate or prosecute any alcohol or drug abuse patient.[facility] HospitalIn the event this information is protected by the Federal Confidentiality of Alcohol and Drug Abuse Patient Records regulations: The Federal rules restrict any use of the information to criminally investigate or prosecute any alcohol or drug abuse patient.[facility] HospitalIn the event this information is protected by the Federal Confidentiality of Alcohol and Drug Abuse Patient Records regulations: The Federal rules restrict any use of the information to criminally investigate or prosecute any alcohol or drug abuse patient.[facility] HospitalIn the event this information is protected by the Federal Confidentiality of Alcohol and Drug Abuse Patient Records regulations: The Federal rules restrict any use of the information to criminally investigate or prosecute any alcohol or drug abuse patient.[facility] HospitalIn the event this information is protected by the Federal Confidentiality of Alcohol and Drug Abuse Patient Records regulations: The Federal rules restrict any use of the information to criminally investigate or prosecute any alcohol or drug abuse patient.[facility] HospitalIn the event this information is protected by the Federal Confidentiality of Alcohol and Drug Abuse Patient Records regulations: The Federal rules restrict any use of the information to criminally investigate or prosecute any alcohol or drug abuse patient.[facility] HospitalIn the event this information is protected by the Federal Confidentiality of Alcohol and Drug Abuse Patient Records regulations: The Federal rules restrict any use of the information to criminally investigate or prosecute any alcohol or drug abuse patient.[facility] HospitalIn the event this information is protected by the Federal Confidentiality of Alcohol and Drug Abuse Patient Records regulations: The Federal rules restrict any use of the information to criminally investigate or prosecute any alcohol or drug abuse patient.[facility] HospitalIn the event this information is protected by the Federal Confidentiality of Alcohol and Drug Abuse Patient Records regulations: The Federal rules restrict any use of the information to criminally investigate or prosecute any alcohol or drug abuse patient.[facility] HospitalIn the event this information is protected by the Federal Confidentiality of Alcohol and Drug Abuse Patient Records regulations: The Federal rules restrict any use of the information to criminally investigate or prosecute any alcohol or drug abuse patient.[facility] HospitalIn the event this information is protected by the Federal Confidentiality of Alcohol and Drug Abuse Patient Records regulations: The Federal rules restrict any use of the information to criminally investigate or prosecute any alcohol or drug abuse patient.[facility] HospitalIn the event this information is protected by the Federal Confidentiality of Alcohol and Drug Abuse Patient Records regulations: The Federal rules restrict any use of the information to criminally investigate or prosecute any alcohol or drug abuse patient.[facility] HospitalIn the event this information is protected by the Federal Confidentiality of Alcohol and Drug Abuse Patient Records regulations: The Federal rules restrict any use of the information to criminally investigate or prosecute any alcohol or drug abuse patient.[facility] HospitalIn the event this information is protected by the Federal Confidentiality of Alcohol and Drug Abuse Patient Records regulations: The Federal rules restrict any use of the information to criminally investigate or prosecute any alcohol or drug abuse patient.[facility] HospitalIn the event this information is protected by the Federal Confidentiality of Alcohol and Drug Abuse Patient Records regulations: The Federal rules restrict any use of the information to criminally investigate or prosecute any alcohol or drug abuse patient.[facility] HospitalIn the event this information is protected by the Federal Confidentiality of Alcohol and Drug Abuse Patient Records regulations: The Federal rules restrict any use of the information to criminally investigate or prosecute any alcohol or drug abuse patient.[facility] HospitalIn the event this information is protected by the Federal Confidentiality of Alcohol and Drug Abuse Patient Records regulations: The Federal rules restrict any use of the information to criminally investigate or prosecute any alcohol or drug abuse patient.[facility] HospitalIn the event this information is protected by the Federal Confidentiality of Alcohol and Drug Abuse Patient Records regulations: The Federal rules restrict any use of the information to criminally investigate or prosecute any alcohol or drug abuse patient.[facility] HospitalIn the event this information is protected by the Federal Confidentiality of Alcohol and Drug Abuse Patient Records regulations: The Federal rules restrict any use of the information to criminally investigate or prosecute any alcohol or drug abuse patient.[facility] HospitalIn the event this information is protected by the Federal Confidentiality of Alcohol and Drug Abuse Patient Records regulations: The Federal rules restrict any use of the information to criminally investigate or prosecute any alcohol or drug abuse patient.[facility] HospitalIn the event this information is protected by the Federal Confidentiality of Alcohol and Drug Abuse Patient Records regulations: The Federal rules restrict any use of the information to criminally investigate or prosecute any alcohol or drug abuse patient.[facility] HospitalIn the event this information is protected by the Federal Confidentiality of Alcohol and Drug Abuse Patient Records regulations: The Federal rules restrict any use of the information to criminally investigate or prosecute any alcohol or drug abuse patient.[facility] HospitalIn the event this information is protected by the Federal Confidentiality of Alcohol and Drug Abuse Patient Records regulations: The Federal rules restrict any use of the information to criminally investigate or prosecute any alcohol or drug abuse patient.[facility] HospitalIn the event this information is protected by the Federal Confidentiality of Alcohol and Drug Abuse Patient Records regulations: The Federal rules restrict any use of the information to criminally investigate or prosecute any alcohol or drug abuse patient.[facility] HospitalIn the event this information is protected by the Federal Confidentiality of Alcohol and Drug Abuse Patient Records regulations: The Federal rules restrict any use of the information to criminally investigate or prosecute any alcohol or drug abuse patient.[facility] HospitalIn the event this information is protected by the Federal Confidentiality of Alcohol and Drug Abuse Patient Records regulations: The Federal rules restrict any use of the information to criminally investigate or prosecute any alcohol or drug abuse patient.[facility] HospitalIn the event this information is protected by the Federal Confidentiality of Alcohol and Drug Abuse Patient Records regulations: The Federal rules restrict any use of the information to criminally investigate or prosecute any alcohol or drug abuse patient.[facility] HospitalIn the event this information is protected by the Federal Confidentiality of Alcohol and Drug Abuse Patient Records regulations: The Federal rules restrict any use of the information to criminally investigate or prosecute any alcohol or drug abuse patient.[facility] HospitalIn the event this information is protected by the Federal Confidentiality of Alcohol and Drug Abuse Patient Records regulations: The Federal rules restrict any use of the information to criminally investigate or prosecute any alcohol or drug abuse patient.[facility] HospitalIn the event this information is protected by the Federal Confidentiality of Alcohol and Drug Abuse Patient Records regulations: The Federal rules restrict any use of the information to criminally investigate or prosecute any alcohol or drug abuse patient.[facility] HospitalIn the event this information is protected by the Federal Confidentiality of Alcohol and Drug Abuse Patient Records regulations: The Federal rules restrict any use of the information to criminally investigate or prosecute any alcohol or drug abuse patient.[facility] HospitalIn the event this information is protected by the Federal Confidentiality of Alcohol and Drug Abuse Patient Records regulations: The Federal rules restrict any use of the information to criminally investigate or prosecute any alcohol or drug abuse patient.[facility] HospitalIn the event this information is protected by the Federal Confidentiality of Alcohol and Drug Abuse Patient Records regulations: The Federal rules restrict any use of the information to criminally investigate or prosecute any alcohol or drug abuse patient.[facility] HospitalIn the event this information is protected by the Federal Confidentiality of Alcohol and Drug Abuse Patient Records regulations: The Federal rules restrict any use of the information to criminally investigate or prosecute any alcohol or drug abuse patient.[facility] HospitalIn the event this information is protected by the Federal Confidentiality of Alcohol and Drug Abuse Patient Records regulations: The Federal rules restrict any use of the information to criminally investigate or prosecute any alcohol or drug abuse patient.[facility] HospitalIn the event this information is protected by the Federal Confidentiality of Alcohol and Drug Abuse Patient Records regulations: The Federal rules restrict any use of the information to criminally investigate or prosecute any alcohol or drug abuse patient.[facility] HospitalIn the event this information is protected by the Federal Confidentiality of Alcohol and Drug Abuse Patient Records regulations: The Federal rules restrict any use of the information to criminally investigate or prosecute any alcohol or drug abuse patient.[facility] HospitalIn the event this information is protected by the Federal Confidentiality of Alcohol and Drug Abuse Patient Records regulations: The Federal rules restrict any use of the information to criminally investigate or prosecute any alcohol or drug abuse patient.[facility] HospitalIn the event this information is protected by the Federal Confidentiality of Alcohol and Drug Abuse Patient Records regulations: The Federal rules restrict any use of the information to criminally investigate or prosecute any alcohol or drug abuse patient.[facility] HospitalIn the event this information is protected by the Federal Confidentiality of Alcohol and Drug Abuse Patient Records regulations: The Federal rules restrict any use of the information to criminally investigate or prosecute any alcohol or drug abuse patient.[facility] HospitalIn the event this information is protected by the Federal Confidentiality of Alcohol and Drug Abuse Patient Records regulations: The Federal rules restrict any use of the information to criminally investigate or prosecute any alcohol or drug abuse patient.[facility] HospitalIn the event this information is protected by the Federal Confidentiality of Alcohol and Drug Abuse Patient Records regulations: The Federal rules restrict any use of the information to criminally investigate or prosecute any alcohol or drug abuse patient.[facility] HospitalIn the event this information is protected by the Federal Confidentiality of Alcohol and Drug Abuse Patient Records regulations: The Federal rules restrict any use of the information to criminally investigate or prosecute any alcohol or drug abuse patient.[facility] HospitalIn the event this information is protected by the Federal Confidentiality of Alcohol and Drug Abuse Patient Records regulations: The Federal rules restrict any use of the information to criminally investigate or prosecute any alcohol or drug abuse patient.[facility] HospitalIn the event this information is protected by the Federal Confidentiality of Alcohol and Drug Abuse Patient Records regulations: The Federal rules restrict any use of the information to criminally investigate or prosecute any alcohol or drug abuse patient.[facility] HospitalIn the event this information is protected by the Federal Confidentiality of Alcohol and Drug Abuse Patient Records regulations: The Federal rules restrict any use of the information to criminally investigate or prosecute any alcohol or drug abuse patient.[facility] HospitalIn the event this information is protected by the Federal Confidentiality of Alcohol and Drug Abuse Patient Records regulations: The Federal rules restrict any use of the information to criminally investigate or prosecute any alcohol or drug abuse patient.[facility] HospitalIn the event this information is protected by the Federal Confidentiality of Alcohol and Drug Abuse Patient Records regulations: The Federal rules restrict any use of the information to criminally investigate or prosecute any alcohol or drug abuse patient.[facility] HospitalIn the event this information is protected by the Federal Confidentiality of Alcohol and Drug Abuse Patient Records regulations: The Federal rules restrict any use of the information to criminally investigate or prosecute any alcohol or drug abuse patient.[facility] HospitalIn the event this information is protected by the Federal Confidentiality of Alcohol and Drug Abuse Patient Records regulations: The Federal rules restrict any use of the information to criminally investigate or prosecute any alcohol or drug abuse patient.[facility] HospitalIn the event this information is protected by the Federal Confidentiality of Alcohol and Drug Abuse Patient Records regulations: The Federal rules restrict any use of the information to criminally investigate or prosecute any alcohol or drug abuse patient.[facility] HospitalIn the event this information is protected by the Federal Confidentiality of Alcohol and Drug Abuse Patient Records regulations: The Federal rules restrict any use of the information to criminally investigate or prosecute any alcohol or drug abuse patient.[facility] HospitalIn the event this information is protected by the Federal Confidentiality of Alcohol and Drug Abuse Patient Records regulations: The Federal rules restrict any use of the information to criminally investigate or prosecute any alcohol or drug abuse patient.[facility] HospitalIn the event this information is protected by the Federal Confidentiality of Alcohol and Drug Abuse Patient Records regulations: The Federal rules restrict any use of the information to criminally investigate or prosecute any alcohol or drug abuse patient.[facility] HospitalIn the event this information is protected by the Federal Confidentiality of Alcohol and Drug Abuse Patient Records regulations: The Federal rules restrict any use of the information to criminally investigate or prosecute any alcohol or drug abuse patient.[facility] HospitalIn the event this information is protected by the Federal Confidentiality of Alcohol and Drug Abuse Patient Records regulations: The Federal rules restrict any use of the information to criminally investigate or prosecute any alcohol or drug abuse patient.[facility] HospitalIn the event this information is protected by the Federal Confidentiality of Alcohol and Drug Abuse Patient Records regulations: The Federal rules restrict any use of the information to criminally investigate or prosecute any alcohol or drug abuse patient.[facility] HospitalIn the event this information is protected by the Federal Confidentiality of Alcohol and Drug Abuse Patient Records regulations: The Federal rules restrict any use of the information to criminally investigate or prosecute any alcohol or drug abuse patient.[facility] HospitalIn the event this information is protected by the Federal Confidentiality of Alcohol and Drug Abuse Patient Records regulations: The Federal rules restrict any use of the information to criminally investigate or prosecute any alcohol or drug abuse patient.[facility]itt[facility] HospitalIn the event this information is protected by the Federal Confidentiality of Alcohol and Drug Abuse Patient Records regulations: The Federal rules restrict any use of the information to criminally investigate or prosecute any alcohol or drug abuse patient.[facility] HospitalIn the event this information is protected by the Federal Confidentiality of Alcohol and Drug Abuse Patient Records regulations: The Federal rules restrict any use of the information to criminally investigate or prosecute any alcohol or drug abuse patient.[facility] HospitalIn the event this information is protected by the Federal Confidentiality of Alcohol and Drug Abuse Patient Records regulations: The Federal rules restrict any use of the information to criminally investigate or prosecute any alcohol or drug abuse patient.[facility] HospitalIn the event this information is protected by the Federal Confidentiality of Alcohol and Drug Abuse Patient Records regulations: The Federal rules restrict any use of the information to criminally investigate or prosecute any alcohol or drug abuse patient.[facility] HospitalIn the event this information is protected by the Federal Confidentiality of Alcohol and Drug Abuse Patient Records regulations: The Federal rules restrict any use of the information to criminally investigate or prosecute any alcohol or drug abuse patient.[facility] HospitalIn the event this information is protected by the Federal Confidentiality of Alcohol and Drug Abuse Patient Records regulations: The Federal rules restrict any use of the information to criminally investigate or prosecute any alcohol or drug abuse patient.[facility] HospitalIn the event this information is protected by the Federal Confidentiality of Alcohol and Drug Abuse Patient Records regulations: The Federal rules restrict any use of the information to criminally investigate or prosecute any alcohol or drug abuse patient.[facility] HospitalIn the event this information is protected by the Federal Confidentiality of Alcohol and Drug Abuse Patient Records regulations: The Federal rules restrict any use of the information to criminally investigate or prosecute any alcohol or drug abuse patient.[facility] Reason for Visit (unrecogniz ed section and content) Reason Comments Radiology CT Specialty Diagnoses / Procedures Referred By Contac t Referred To Contact CT IMAGING Diagnoses Left lower quadrant abdominal pain Procedures CT PELVIS W IVCON CT PELVIS W/CONTRAST MATERIAL Cheyanne Farah DO [address] [place] [address] Ct Imaging Referral ID Status Reason Start Date Expiration Date V isits Requested Visits Authorized [id number] Closed Auto-Generate d Referral 08/08/2022 02/04/2023 1 1 Reason Comments Blood Draw (CVAD) Reason Comments Refill Request Reason Onset Date Comments Refill Request 04/16/2022 Reason Comments Lab Orders Reason Comments Patient Question Reason Comments Appointment Specialty Diagnoses / Procedures Referred By Contac t Referred To Contact CT IMAGING Diagnoses Diffuse large B-cell 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) Procedures CT CHEST W IVCON CAT SCAN [place] [address] [place] [address] Ct Imaging Referral ID Status Reason Start Date Expiration Date V isits Requested Visits Authorized [id number] Closed Auto-Generate d Referral 03/18/2022 05/17/2022 1 1 Reason Comments Follow Up Reason Comments Radiology NM Reason Comments Follow Up Reason Comments Diabetes bladder control Reason Comments Radiology Pre Procedure Instructions Reason Comments Care Coordination Follow up bx Reason Comments Consult Reason Comments Follow Up Labs, biopsy Reason Comments Follow Up's Reason Onset Date Comments Refill Request 07/01/2022 Reason Comments Follow Up scans Reason Comments Orders Reason Comments Port Flush Reason Onset Date Comments Refill Request 10/06/2022 Reason Comments Patient Update Reason Comments Diabetes Follow up. Has cut h is water pill in half because he was having accidents at night and is still having accidents. Would like to increase his gabapentin dose because he accidentally took an extra one and his feet felt even better. Would like to increase dose of sildenafil Reason Onset Date Comments Refill Request 11/25/2022 Reason Comments Post Nasal Drip Makes him nauseated started Thursday . Needs note . He missed half day yesterday and needs one for today Reason Comments Patient Question Pt called asking for an earlier appt than 12/24/22. Stated he did not want to talk to scheduling/Pt wanted message to go to Dr Farah. Reason Onset Date Comments Transition Of Care 12/19/2022 Initial Outre ach ([place] discharged 12/18/22) Reason Comments Transition Of Care Reason Comments FMLA Paperwork FMLA Paperwork for s on Reason Comments Forms [employer] Sh ort Term Disability Paperwork Reason Comments Patient Question Wants amaury financ ial to know he is in hospital. Reason Onset Date Comments Transition Of Care 01/16/2023 Initial Outre ach ([facility] discharged 01/15/23) Reason Onset Date Comments Transition Of Care 01/22/2023 Follow Up Chava l Reason Comments Transition Of Care Still having blood i n urine, states it happens when he does too much. In the beginning he was having blood clots. States yesterday he went to restoration twice and the grocery store and had bleeding. Reason Comments Forms [employer] Di sability Claims paperwork Reason Onset Date Comments Refill Request 02/04/2023 Reason Comments Results Reason Comments Chronic Kidney Disease Reason Onset Date Comments Refill Request 02/09/2023 Reason Comments Forms [employer] Gr oup STD Benefits Claim# [id number] Reason Onset Date Comments Transition Of Care 02/13/2023 Follow Up Chava l Reason Comments CVAD Access Reason Comments Diabetes 3 month follow up Reason Comments Follow Up Reason Comments Forms [employer] Gr oup Restrictions Form Reason Comments records Reason Comments discuss returning to work Reason Onset Date Comments Refill Request 03/31/2023 Reason Onset Date Comments Refill Request 04/15/2023 Reason Comments Established Patient Follow-Up First OV w ith Dr. Benton/ Eric Becerra on 01/30/23No current cardiac symptomsRM 13Stress test, Zio, EKG, ECHO in last year Reason Onset Date Comments Refill Request 04/17/2023 Reason Comments Disability Evaluation Disability paperwo rk for [facility] FAX [phone] AND [phone]. Reason Onset Date Comments Refill Request 05/04/2023 Reason Onset Date Comments Refill Request 05/18/2023 Reason Comments Diabetes Follow up Reason Comments Chronic Kidney Disease 4 month f/u Reason Onset Date Comments Refill Request 06/08/2023 Reason Comments Patient Update Reason Comments Insurance Authorization Reason Onset Date Comments Refill Request 07/14/2023 Reason Comments parking placard Reason Onset Date Comments Refill Request 08/17/2023 Reason Onset Date Comments Refill Request 09/07/2023 Reason Onset Date Comments Refill Request 10/09/2023 Reason Comments F/U Diabetes 3 Month Reason Onset Date Comments Refill Request 12/06/2023 Reason Comments Chronic Kidney Disease 3 mo f/u Reason Comments Headache Nausea, chills, sinu s drainage, swollen tongue, and fatigue x 2 days Reason Onset Date Comments ED OUTREACH 12/25/2023 ED OUTREACH2023LODI Reason Comments Follow Up Room 12F/u Denies ca rdiac concernsEKG TodayLOV 11/24/23 HeinsStress 02/26/23ZIO 02/18/23EKG 01/30/23ECHO 01/14/23 Specialty Diagnoses / Procedures Referred By Contac t Referred To Contact CT IMAGING Diagnoses NHL unspecified type (HCC) Procedures CT ABD/PEL WO IVCON CT ABD & PELVIS W/[place] [address] [place] [address] [place] [address] Referral ID Status Reason Start Date Expiration Date V isits Requested Visits Authorized [id number] Closed Auto-Generat ed Referral Clearance Not Met - Admin/Chairm an/Director Advise to Postpone/Res chedule or Not Proceed 02/04/2024 08/19/2024 [address] Specialty Diagnoses / Procedures Referred By Contac t Referred To Contact CT IMAGING Diagnoses NHL unspecified type (HCC) Procedures CT CHEST WO IVCON DIAGNOSTIC COMPUTED TOMOGRAPHY THORAX W/[place] [address] [place] [address] [place] [address] Referral ID Status Reason Start Date Expiration Date V isits Requested Visits Authorized [id number] Closed Auto-Generat ed Referral Clearance Not Met - Admin/Chairm an/Director Advise to Postpone/Res chedule or Not Proceed 02/04/2024 08/19/2024 1 1 Reason Onset Date Comments Refill Request 02/29/2024 Reason Comments Established Patient nhl Reason Comments Diabetes Reason Onset Date Comments Refill Request 03/07/2024 Reason Comments Established Patient CT results Reason Comments Chronic Kidney Disease 4 mo f/u Reason Onset Date Comments 05/11/2024 Reason Comments Patient Question Reason Onset Date Comments 05/25/2024 Reason Onset Date Comments Transition Of Care 05/20/2024 TCM Pharmacy- Hospital discharge 05/19/24 Reason Onset Date Comments Transition Of Care 05/23/2024 [facility] [place] D /C 05/19/24 Reason Comments Forms [employer] Gr oup Short Term Disability Reason Onset Date Comments Transition Of Care 06/07/2024 [facility] Reason Comments Home Care MD to follow Reason Comments Home Care CONFIRMATION CALL Reason Onset Date Comments Transition Of Care 06/14/2024 Discharged fr om [facility] to Home with [facility] Home Health Care Reason Comments Reason Onset Date Comments Transition Of Care 06/15/2024 TCU D/C Reason Comments Knee Pain New Reason Comments Home Care Reschedule Reason Comments Home Care Reason Comments Home Care Notification of non- admission to home health. Reason Onset Date Comments Refill Request 06/17/2024 Reason Onset Date Comments Refill Request 06/20/2024 Reason Onset Date Comments Transition Of Care 07/07/2024 TCM f/u Reason Comments Hospital F/U Reason Onset Date Comments Refill Request 07/11/2024 Reason Comments Established Patient Knee Pain Reason Onset Date Comments Transition Of Care 07/15/2024 TCM f/u Reason Comments Refill Request Reason Comments F/U 1 month Patient would like A 1C today even though it is too early because he needs it below 8 in order to have surgery. Patient will pay bill if he gets one Reason Onset Date Comments Transition Of Care 06/23/2024 TCU D/C Reason Onset Date Comments Refill Request 07/31/2024 Reason Comments Post Op Reason Comments Patient Update Note to return to wo rk Reason Comments CARD Follow Up 6 Month Right [facility] Reason Comments 6 week follow up After knee surgery, states it went well and he is back to work Reason Comments Follow Up Post Op Knee Pain Reason Onset Date Comments Refill Request 10/26/2024 Reason Onset Date Comments Refill Request 11/03/2024 Reason Onset Date Comments Refill Request 11/27/2024 Specialty Diagnoses / Procedures Referred By Contac t Referred To Contact CT IMAGING Diagnoses Diffuse large B-cell 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) Procedures CT ABD/PEL WO IVCON CT ABD & PELVIS W/[place] [address] [place] [address] Phone: tel: fax: [place] [address] Referral ID Status Reason Start Date Expiration Date V isits Requested Visits Authorized [id number] Closed Auto-Generate d Referral 11/14/2024 05/13/2025 1 1 Reason Onset Date Comments Refill Request 12/12/2024 Reason Comments F/U Diabetes 3 Month Patient has been ou t of medication the last couple months due to cost issues. Reason Onset Date Comments Refill Request 01/25/2025 Reason Comments F/U Diabetes 3 Month Reason Comments Medication Question Reason Onset Date Comments Refill Request 04/24/2025 Reason Comments Follow Up + Edema+ DizzinessDe nies chest pain, palpitations, coughEKG 12/02/24LOV 08/16/24 HeinsStress 02/26/23ZIO 02/18/23ECHO 01/14/23 Reason Onset Date Comments Refill Request 05/07/2025 Reason Comments medication coverage Metformin prior auth - Approved Reason Onset Date Comments Refill Request 05/15/2025 Reason Onset Date Comments Refill Request 05/29/2025 Care Teams (unrecognized sec tion and content) 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 Relationship Specialty Start Date End Date Robert, Najma Salomon DO PCP - General 08/12/15 Osiris Gonzales LISW [address] [id number] Child Guidance Counselor Oncology 09/05/19 Martell Waterman MD [address] [place], [place] [id number] Consulting Hematology/Oncology 09/13/19 Cristhian Romero MD, MD [address] [address] Consulting Radiology 09/13/19 Eber Antony MD [address] [place], [place] [id number] Consulting Urology 09/13/19 Amee Escamilla ([facility]) [address] [place] [address] Consulting Hematology/Oncology 11/02/19 Omid Prabhakar MD [address] [place] [address] Consulting Pulmonary and Critical Care Medicine 11/02/19 Amrit Del Valle MD [address] [facility] [address] [place] [phone] Consulting Infectious Diseases 11/02/19 Wilber Maxwell MD [address] [address] Consulting Hematology/Oncology 11/02/19 Yamilka Mosley MD [address] [place] [address] Consulting Pulmonary Disease 11/02/19 Stefano Jacob Physician Radiation Oncology 01/10/20 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 Relationship Specialty Start Date End Date Sheets, Najma Salomon DO PCP - General 08/12/15 Osiris Gonzales LISW [address] [address] Child Guidance Counselor Oncology 09/05/19 Martell Waterman MD [address] [place], [place] [id number] Consulting Hematology/Oncology 09/13/19 Cristhian Romero MD, [address] [address] Consulting Radiology 09/13/19 Eber Antony MD [address] [place] [address] Consulting Urology 09/13/19 Amee Escamilla (Fel) [address] [place] [address] Consulting Hematology/Oncology 11/02/19 Omid Prabhakar MD [address] [place] [address] Consulting Pulmonary and Critical Care Medicine 11/02/19 Amrit Del Valle MD [address] [facility] [address] [place] [phone] Consulting Infectious Diseases 11/02/19 Wilber Maxwell MD [address] [address] Consulting Hematology/Oncology 11/02/19 Yamilka Mosley MD [address] [place] [address] Consulting Pulmonary Disease 11/02/19 Stefano Brizuelahoracio Physician Radiation Oncology 01/10/20 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 Relationship Specialty Start Date End Date Robert, Najma Salomon DO PCP - General 08/12/15 Osiris Gonzales LISW [address] [address] Child Guidance Counselor Oncology 09/05/19 Martell Waterman MD [address] [place] [address] Consulting Hematology/Oncology 09/13/19 Cristhian Romero MD, MD [address] [address] Consulting Radiology 09/13/19 Eber Antony MD [address] [place] [address] Consulting Urology 09/13/19 Amee Escamilla (Fel) [address] [place], [place] [id number] Consulting Hematology/Oncology 11/02/19 Omid Prabhakar MD [address] [place] [address] Consulting Pulmonary and Critical Care Medicine 11/02/19 Amrit Del Valle MD [address] [facility] [address] [place] [phone] Consulting Infectious Diseases 11/02/19 Wilber Maxwell MD [address] [address] Consulting Hematology/Oncology 11/02/19 Yamilka Mosley MD [address] [place] [address] Consulting Pulmonary Disease 11/02/19 Stefano Jacob Physician Radiation Oncology 01/10/20 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 Relationship Specialty Start Date End Date Robert, Najma Salomon DO PCP - General 08/12/15 Osiris Gonzales LISW [address] [address] Child Guidance Counselor Oncology 09/05/19 Martell Waterman MD [address] [place] [address] Consulting Hematology/Oncology 09/13/19 Cristhian Romero MD, MD [address] [address] Consulting Radiology 09/13/19 Eber Antony MD [address] [place], [place] [id number] Consulting Urology 09/13/19 Amee Escamilla ([facility]) [address] [place] [address] Consulting Hematology/Oncology 11/02/19 Omid Prabhakar MD [address] [place] [address] Consulting Pulmonary and Critical Care Medicine 11/02/19 Amrit Del Valle MD [address] [place] [phone] Consulting Infectious Diseases 11/02/19 Wilber Maxwell MD [address] [address] Consulting Hematology/Oncology 11/02/19 Yamilka Mosley MD [address] [place] [address] Consulting Pulmonary Disease 11/02/19 Stefaon Jacob Physician Radiation Oncology 01/10/20 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 Relationship Specialty Start Date End Date Sheets, Najma Salomon DO PCP - General 08/12/15 Osiris Gonzales LISW [address] [address] Child Guidance Counselor Oncology 09/05/19 Martell Waterman MD [address] [place] [address] Consulting Hematology/Oncology 09/13/19 Cristhian Romero MD, MD [address] [address] Consulting Radiology 09/13/19 Eber Antony MD [address] [place], [place] [address] Consulting Urology 09/13/19 Amee Escamilla (Fel) [address] [facility] [place] [place] [id number] Consulting Hematology/Oncology 11/02/19 Omid Prabhakar MD [address] [place] [address] Consulting Pulmonary and Critical Care Medicine 11/02/19 mArit Del Valle MD [address] [facility] [address] [place] [phone] Consulting Infectious Diseases 11/02/19 Wilber Maxwell MD [address] [address] Consulting Hematology/Oncology 11/02/19 Yamilka Mosley MD [address] [place] [address] Consulting Pulmonary Disease 11/02/19 Stefano James Physician Radiation Oncology 01/10/20 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 Relationship Specialty Start Date End Date Sheets, Najma Salomon DO PCP - General 08/12/15 Osiris Gonzales LISW [address] [address] Child Guidance Counselor Oncology 09/05/19 Martell Waterman MD [address] [place] [address] Consulting Hematology/Oncology 09/13/19 Cristhian Romero MD, MD [address] [address] Consulting Radiology 09/13/19 Eber Antony MD [address] [place] [address] Consulting Urology 09/13/19 Amee Escamilla ([facility]) [address] [place] [address] Consulting Hematology/Oncology 11/02/19 Omid Prabhakar MD [address] [place] [address] Consulting Pulmonary and Critical Care Medicine 11/02/19 Amrit Del Valle MD [address] [place] [phone] Consulting Infectious Diseases 11/02/19 Wilber Maxwell MD [address] [address] Consulting Hematology/Oncology 11/02/19 Yamilka Mosley MD [address] [place] [address] Consulting Pulmonary Disease 11/02/19 Stefano James Physician Radiation Oncology 01/10/20 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 Relationship Specialty Start Date End Date Sheets, Najma Salomon DO PCP - General 08/12/15 Osiris Gonzales LISW [address] [address] Child Guidance Counselor Oncology 09/05/19 Martell Waterman MD [address] [place] [address] Consulting Hematology/Oncology 09/13/19 Cristhian Romero MD, MD [address] [address] Consulting Radiology 09/13/19 Eber Antony MD [address] [place], [place] [address] Consulting Urology 09/13/19 Amee Escamilla (Fel) [address] [place] [address] Consulting Hematology/Oncology 11/02/19 Omid Prabhakar MD [address] [place] [address] Consulting Pulmonary and Critical Care Medicine 11/02/19 Amrit Del Valle MD [address] [facility] [address] [place] [address] Consulting Infectious Diseases 11/02/19 Wilber Maxwell MD [address] [address] Consulting Hematology/Oncology 11/02/19 Yamilka Mosley MD [address] [place] [address] Consulting Pulmonary Disease 11/02/19 Stefano James Physician Radiation Oncology 01/10/20 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 Relationship Specialty Start Date End Date Sheets, Najma Salomon DO PCP - General 08/12/15 Osiris Gonzales LISW [address] [address] Child Guidance Counselor Oncology 09/05/19 Martell Waterman MD [address] [place] [address] Consulting Hematology/Oncology 09/13/19 Cristhian Romero MD, MD [address] [address] Consulting Radiology 09/13/19 Eber Antony MD [address] [place] [address] Consulting Urology 09/13/19 Amee Escamilla (Fel) [address] [place] [address] Consulting Hematology/Oncology 11/02/19 Omid Prabhakar MD [address] [place] [address] Consulting Pulmonary and Critical Care Medicine 11/02/19 Amrit Del Valle MD [address] [facility]. [address] [place] [address] Consulting Infectious Diseases 11/02/19 Wilber Maxwell MD [address] [address] Consulting Hematology/Oncology 11/02/19 Yamilka Mosley MD [address] [place] [address] Consulting Pulmonary Disease 11/02/19 Stefano James Physician Radiation Oncology 01/10/20 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 Relationship Specialty Start Date End Date Robert, Najma Salomon DO PCP - General 08/12/15 Osiris Gonzales LISW [address] [address] Child Guidance Counselor Oncology 09/05/19 Martell Waterman MD [address] [place] [address] Consulting Hematology/Oncology 09/13/19 Cristhian Romero MD, MD [address] [address] Consulting Radiology 09/13/19 Eber Antony MD [address] [place], [place] [address] Consulting Urology 09/13/19 Amee Escamilla (Fel) [address] [facility] [place] [place] [address] Consulting Hematology/Oncology 11/02/19 Omid Prabhakar MD [address] [place] [address] Consulting Pulmonary and Critical Care Medicine 11/02/19 Amrit Del Valle MD [address] [facility] [address] [place] [address] Consulting Infectious Diseases 11/02/19 Wilber Maxwell MD [address] [address] Consulting Hematology/Oncology 11/02/19 Yamilka Mosley MD [address] [place] [address] Consulting Pulmonary Disease 11/02/19 Stefano James Physician Radiation Oncology 01/10/20 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 Relationship Specialty Start Date End Date Robert, Najma Salomon DO PCP - General 08/12/15 Osiris Gonzales LISW [address] [address] Child Guidance Counselor Oncology 09/05/19 Martell Waterman MD [address] [place] [address] Consulting Hematology/Oncology 09/13/19 Cristhian Romero MD, MD [address] [address] Consulting Radiology 09/13/19 Eber Antony MD [address] [place] [address] Consulting Urology 09/13/19 Amee Escamilla ([facility]) [address] [place] [address] Consulting Hematology/Oncology 11/02/19 Omid Prabhakar MD [address] [place] [address] Consulting Pulmonary and Critical Care Medicine 11/02/19 Amrit Del Valle MD [address] [facility] [address] [place] [address] Consulting Infectious Diseases 11/02/19 Wilber Maxwell MD [address] [address] Consulting Hematology/Oncology 11/02/19 Yamilka Mosley MD [address] [place] [address] Consulting Pulmonary Disease 11/02/19 Stefano James Physician Radiation Oncology 01/10/20 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 Relationship Specialty Start Date End Date Sheets, Najma Salomon DO PCP - General 08/12/15 Osiris Gonzales LISW [address] [address] Child Guidance Counselor Oncology 09/05/19 Martell Waterman MD [address] [place] [address] Consulting Hematology/Oncology 09/13/19 Cristhian Romero MD, MD [address] [address] Consulting Radiology 09/13/19 Eber Antony MD [address] [place] [address] Consulting Urology 09/13/19 Amee Escamilla ([facility]) [address] [place] [address] Consulting Hematology/Oncology 11/02/19 Omid Prabhakar MD [address] [place] [address] Consulting Pulmonary and Critical Care Medicine 11/02/19 Amrit Del Valle MD [address] [facility]. [address] [place] [address] Consulting Infectious Diseases 11/02/19 Wilber Maxwell MD [address] [address] Consulting Hematology/Oncology 11/02/19 Yamilka Mosley MD [address] [place] [address] Consulting Pulmonary Disease 11/02/19 Stefano James Physician Radiation Oncology 01/10/20 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 Relationship Specialty Start Date End Date Sheets, Najma Salomon DO PCP - General 08/12/15 Osiris Gonzales LISW [address] [address] Child Guidance Counselor Oncology 09/05/19 Martell Waterman MD [address] [place] [address] Consulting Hematology/Oncology 09/13/19 Cristhian Romero MD, [address] [address] Consulting Radiology 09/13/19 Eber Antony MD [address] [place] [address] Consulting Urology 09/13/19 Amee Escamilla ([facility]) [address] [place] [address] Consulting Hematology/Oncology 11/02/19 Omid Prabhakar MD [address] [place] [address] Consulting Pulmonary and Critical Care Medicine 11/02/19 Amrit Del Valle MD [address] [place] [phone] Consulting Infectious Diseases 11/02/19 Wilber Maxwell MD [address] [address] Consulting Hematology/Oncology 11/02/19 Yamilka Mosley MD [address] [place] [address] Consulting Pulmonary Disease 11/02/19 Stefano James Physician Radiation Oncology 01/10/20 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 Relationship Specialty Start Date End Date Sheets, Najma Salomon DO PCP - General 08/12/15 Osiris Gonzales LISW [address] [address] Child Guidance Counselor Oncology 09/05/19 Martell Waterman MD [address] [place] [address] Consulting Hematology/Oncology 09/13/19 Cristhian Romero MD, [address] [address] Consulting Radiology 09/13/19 Eber Antony MD [address] [facility], [place] [id number] Consulting Urology 09/13/19 Amee Escamilla (Fel) [address] [place], [place] [phone] Consulting Hematology/Oncology 11/02/19 Omid Prabhakar MD [address] [place] [address] Consulting Pulmonary and Critical Care Medicine 11/02/19 Amrit Del Valle MD [address] [place] [phone] Consulting Infectious Diseases 11/02/19 Wilber Maxwell MD [address] [address] Consulting Hematology/Oncology 11/02/19 Yamilka Mosley MD [address] [place] [address] Consulting Pulmonary Disease 11/02/19 Stefano James Physician Radiation Oncology 01/10/20 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 Relationship Specialty Start Date End Date Robert, Najma Salomon DO PCP - General 08/12/15 Osiris Gonzales LISW [address] [address] Child Guidance Counselor Oncology 09/05/19 Martell Waterman MD [address] [place] [address] Consulting Hematology/Oncology 09/13/19 Cristhian Romero MD, MD [address] [address] Consulting Radiology 09/13/19 Eber Antony MD [address] [place] [address] Consulting Urology 09/13/19 Amee Escamilla (Fel) [address] [place], [place] [id number] Consulting Hematology/Oncology 11/02/19 Omid Prabhakar MD [address] [place] [address] Consulting Pulmonary and Critical Care Medicine 11/02/19 Amrit Del Valle MD [address] [place] [phone] Consulting Infectious Diseases 11/02/19 Wilber Maxwell MD [address] [address] Consulting Hematology/Oncology 11/02/19 Yamilka Mosley MD [address] [place] [address] Consulting Pulmonary Disease 11/02/19 Stefano James Physician Radiation Oncology 01/10/20 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 Relationship Specialty Start Date End Date Robert, Najmamayela Salomon DO PCP - General 08/12/15 Osiris Gonzales LISW [address] [address] Child Guidance Counselor Oncology 09/05/19 Martell Waterman MD [address] [place] [address] Consulting Hematology/Oncology 09/13/19 Cristhian Romero MD, MD [address] [address] Consulting Radiology 09/13/19 Eber Antony MD [address] [place], [place] [address]31 Consulting Urology 09/13/19 Amee Escamilla (Fel) [address] [place], [place] [address]1995 Consulting Hematology/Oncology 11/02/19 Omid Prabhakar MD [address] [place] [address] Consulting Pulmonary and Critical Care Medicine 11/02/19 Amrit Del Valle MD [address] [facility] [address] [place] [phone] Consulting Infectious Diseases 11/02/19 Wilber Maxwell MD [address] [address] Consulting Hematology/Oncology 11/02/19 Yamilka Mosley MD [address] [place] [address] Consulting Pulmonary Disease 11/02/19 Stefano James Physician Radiation Oncology 01/10/20 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 Relationship Specialty Start Date End Date Robert, Najma SalomonDO PCP - General 08/12/15 Osiris Gonzales LISW [address] [address] Child Guidance Counselor Oncology 09/05/19 Martell Waterman MD [address] [place] [address] Consulting Hematology/Oncology 09/13/19 Cristhian Romero MD, MD [address] [address] Consulting Radiology 09/13/19 Eber Antony MD [address] [place], [place] [address]347[address] Consulting Urology 09/13/19 Amee Escamilla (Fel) [address] [place] [address] Consulting Hematology/Oncology 11/02/19 Omid Prabhakar MD [address] [place] [address] Consulting Pulmonary and Critical Care Medicine 11/02/19 Amrit Del Valle MD [address] [place] [address] Consulting Infectious Diseases 11/02/19 Wibler Maxwell MD [address] [address] Consulting Hematology/Oncology 11/02/19 Yamilka Mosley MD [address] [place] [address] Consulting Pulmonary Disease 11/02/19 Stefano James Physician Radiation Oncology 01/10/20 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 Relationship Specialty Start Date End Date Sheets, Najmamayela Salomon DO PCP - General 08/12/15 Osiris Gonzales LISW [address] [address] Child Guidance Counselor Oncology 09/05/19 Martell Waterman MD [address] [place] [address] Consulting Hematology/Oncology 09/13/19 Cristhian Romero MD, MD [address] [address] Consulting Radiology 09/13/19 Eber Antony MD [address] [place], [place] 1080031 Consulting Urology 09/13/19 Amee Escamilla (Fel) [address] [facility] [place], [place] [phone] Consulting Hematology/Oncology 11/02/19 Omid Prabhakar MD [address] [place] [address] Consulting Pulmonary and Critical Care Medicine 11/02/19 Amrit Del Valle MD [address] [facility] [address] [place] [phone] Consulting Infectious Diseases 11/02/19 Wilber Maxwell MD [address] [address] Consulting Hematology/Oncology 11/02/19 Yamilka Mosley MD [address] [place] [address] Consulting Pulmonary Disease 11/02/19 Stefano James Physician Radiation Oncology 01/10/20 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 Relationship Specialty Start Date End Date Sheets, Najma Salomon DO PCP - General 08/12/15 Osiris Gonzales LISW [address] [address] Child Guidance Counselor Oncology 09/05/19 Martell Waterman MD [address] [place] [address] Consulting Hematology/Oncology 09/13/19 Cristhian Romero MD, [address] [id number] Consulting Radiology 09/13/19 Eber Antony MD [address] [place], [place] 9298731 Consulting Urology 09/13/19 Amee Escamilla (Fel) [address] [place], [place] 2194995 Consulting Hematology/Oncology 11/02/19 Omid Prabhakar MD [address] [place] [address] Consulting Pulmonary and Critical Care Medicine 11/02/19 Amrit Del Valle MD [address] [facility] [address] [place] [phone] Consulting Infectious Diseases 11/02/19 Wilber Maxwell MD [address] [address] Consulting Hematology/Oncology 11/02/19 Yamilka Mosley MD [address] [place] [address] Consulting Pulmonary Disease 11/02/19 Stefano James Physician Radiation Oncology 01/10/20 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 Relationship Specialty Start Date End Date Robert, Najma Salomon DO PCP - General 08/12/15 Osiris Gonzales LISW [address] [address] Child Guidance Counselor Oncology 09/05/19 Martell Waterman MD [address] [place] [address] Consulting Hematology/Oncology 09/13/19 Cristhian Romero MD, [address] [phone] Consulting Radiology 09/13/19 Eber Antony MD [address] [place], [place] 9075431 Consulting Urology 09/13/19 Amee Escamilla (Fel) [address] [facility] [place], [place] 9085395 Consulting Hematology/Oncology 11/02/19 Omid Prabhakar MD [address] [place] [address] Consulting Pulmonary and Critical Care Medicine 11/02/19 Amrit Del Valle MD [address] [facility] [address] [place] [address] Consulting Infectious Diseases 11/02/19 Wilber Maxwell MD [address] [address] Consulting Hematology/Oncology 11/02/19 Yamilka Mosley MD [address] [place] [address] Consulting Pulmonary Disease 11/02/19 Stefano James Physician Radiation Oncology 01/10/20 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 Relationship Specialty Start Date End Date Robert, Najma Salomon DO PCP - General 08/12/15 Osiris Gonzales LISW [address] [address] Child Guidance Counselor Oncology 09/05/19 Martell Waterman MD [address] [place] [address] Consulting Hematology/Oncology 09/13/19 Cristhian Romero MD, MD [address] [address] Consulting Radiology 09/13/19 Eber Antony MD [address] [place], [place] 6078831 Consulting Urology 09/13/19 Amee Escamilla (Fel) [address] [facility] [place] [place] [address] Consulting Hematology/Oncology 11/02/19 Omid Prabhakar MD [address] [place] [address] Consulting Pulmonary and Critical Care Medicine 11/02/19 Amrit Del Valle MD [address] [facility] [address] [place] [phone] Consulting Infectious Diseases 11/02/19 Wilber Maxwell MD [address] [address] Consulting Hematology/Oncology 11/02/19 Yamilka Mosley MD [address] [place] [address] Consulting Pulmonary Disease 11/02/19 Stefano James Physician Radiation Oncology 01/10/20 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 Relationship Specialty Start Date End Date Robert, Najma Salomon DO PCP - General 08/12/15 Osiris Gonzales LISW [address] [address] Child Guidance Counselor Oncology 09/05/19 Martell Waterman MD [address] [place] [address] Consulting Hematology/Oncology 09/13/19 Cristhian Romero MD, MD [address] [address] Consulting Radiology 09/13/19 Eber Antony MD [address] [place] [address] Consulting Urology 09/13/19 Amee Escamilla ([facility]) [address] [place], [place] 8[address]5795 Consulting Hematology/Oncology 11/02/19 Omid Prabhakar MD [address] [place] [address] Consulting Pulmonary and Critical Care Medicine 11/02/19 Amrit Del Valle MD [address] [facility] [address] [place] [phone] Consulting Infectious Diseases 11/02/19 Wilber Maxwell MD [address] [address] Consulting Hematology/Oncology 11/02/19 Yamilka Mosley MD [address] [place] [address] Consulting Pulmonary Disease 11/02/19 Stefano James Physician Radiation Oncology 01/10/20 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 Relationship Specialty Start Date End Date Sheets, Najma Salomon DO PCP - General 08/12/15 Osiris Gonzales LISW [address] [address] Child Guidance Counselor Oncology 09/05/19 Martell Waterman MD [address] [place] [address] Consulting Hematology/Oncology 09/13/19 Cristhian Romero MD, MD [address] [facility] [address] [place] [address] Consulting Radiology 09/13/19 Eber Antony MD [address] [place] [address] Consulting Urology 09/13/19 Amee Escamilla (Fel) [address] [place], [place] 0416995 Consulting Hematology/Oncology 11/02/19 Omid Prabhakar MD [address] [place] [address] Consulting Pulmonary and Critical Care Medicine 11/02/19 Amrit Del Valle MD [address] [facility] [address] [place] [address] Consulting Infectious Diseases 11/02/19 Wilber Maxwell MD [address] [address] Consulting Hematology/Oncology 11/02/19 Yamilka Mosley MD [address] [place] [address] Consulting Pulmonary Disease 11/02/19 Stefano James Physician Radiation Oncology 01/10/20 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 Relationship Specialty Start Date End Date Sheets, Najma Salomon DO PCP - General 08/12/15 Osiris Gonzales LISW [address] [address] Child Guidance Counselor Oncology 09/05/19 Martell Waterman MD [address] [place] [address] Consulting Hematology/Oncology 09/13/19 Cristhian Romero MD, MD [address] [address] Consulting Radiology 09/13/19 Eber Antony MD [address] [place] [address] Consulting Urology 09/13/19 Amee Escamilla (Fel) [address] [place], [place] 0813695 Consulting Hematology/Oncology 11/02/19 Omid Prabhakar MD [address] [place] [address] Consulting Pulmonary and Critical Care Medicine 11/02/19 Amrit Del Valle MD [address] [facility] [address] [place] [phone] Consulting Infectious Diseases 11/02/19 Wilber Maxwell MD [address] [address] Consulting Hematology/Oncology 11/02/19 Yamilka Mosley MD [address] [place] [address] Consulting Pulmonary Disease 11/02/19 Ernesto Dailey, microwave technician Branch Service Associate 12/19/22 01/16/23 Stefano James Physician Radiation Oncology 01/10/20 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 Relationship Specialty Start Date End Date Sheets, Najma Salomon DO PCP - General 08/12/15 Osiris Gonzales LISW [address] [address] Child Guidance Counselor Oncology 09/05/19 Martell Waterman MD [address] [place] [address] Consulting Hematology/Oncology 09/13/19 Cristhian Romero MD, MD [address] [facility] [address] [place] [address] Consulting Radiology 09/13/19 Eber Antony MD [address] [place], [place] 2952831 Consulting Urology 09/13/19 Amee Escamilla ([facility]) [address] [place], [place] 8580295 Consulting Hematology/Oncology 11/02/19 Omid Prabhakar MD [address] [place] [address] Consulting Pulmonary and Critical Care Medicine 11/02/19 Amrit Del Valle MD [address] [facility] [address] [place] [address] Consulting Infectious Diseases 11/02/19 Wilber Maxwell MD [address] [address] Consulting Hematology/Oncology 11/02/19 Yamilka Mosley MD [address] [place] [address] Consulting Pulmonary Disease 11/02/19 Ernesto Dailey, microwave technician Branch Service Associate 12/19/22 01/16/23 Stefano James Physician Radiation Oncology 01/10/20 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 Relationship Specialty Start Date End Date Sheets, Najma Salomon DO PCP - General 08/12/15 Osiris Gonzales LISW [address] [address] Child Guidance Counselor Oncology 09/05/19 Martell Waterman MD [address] [place] [address] Consulting Hematology/Oncology 09/13/19 Cristhian Romero MD, MD [address] [address] Consulting Radiology 09/13/19 Eber Antony MD [address] [place], [place] 8632031 Consulting Urology 09/13/19 Amee Escamilla (Fel) [address] [place], [place] [phone] Consulting Hematology/Oncology 11/02/19 Omid Prabhakar MD [address] [place] [address] Consulting Pulmonary and Critical Care Medicine 11/02/19 Amrit Del Valle MD [address] [facility] [address] [place] [phone] Consulting Infectious Diseases 11/02/19 Wilber Maxwell MD [address] [address] Consulting Hematology/Oncology 11/02/19 Yamilka Mosley MD [address] [place] [address] Consulting Pulmonary Disease 11/02/19 Ernesto Dailey, microwave technician Branch Service Associate 12/19/22 01/16/23 Stefano James Physician Radiation Oncology 01/10/20 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 Relationship Specialty Start Date End Date Robert, Najma Salomon DO PCP - General 08/12/15 Osiris Gonzales LISW [address] [address] Child Guidance Counselor Oncology 09/05/19 Martell Waterman MD [address] [place] [address] Consulting Hematology/Oncology 09/13/19 Cristhian Romero MD, MD [address] [address] Consulting Radiology 09/13/19 Eber Antony MD [address] [place], [place] 0091331 Consulting Urology 09/13/19 Amee Escamilla ([facility]) [address] [place], [place] 7989495 Consulting Hematology/Oncology 11/02/19 Omid Prabhakar MD [address] [place] [address] Consulting Pulmonary and Critical Care Medicine 11/02/19 Amrit Del Valle MD [address] [facility] [address] [place] [phone] Consulting Infectious Diseases 11/02/19 Wilber Maxwell MD [address] [address] Consulting Hematology/Oncology 11/02/19 Yamilka Mosley MD [address] [place] [address] Consulting Pulmonary Disease 11/02/19 Ernesto Dailey, microwave technician Branch Service Associate 12/19/22 01/16/23 Stefano James Physician Radiation Oncology 01/10/20 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 Relationship Specialty Start Date End Date Najma Bloom DO PCP - General 08/12/15 Osiris Gonzales LISW [address] [address] Child Guidance Counselor Oncology 09/05/19 Martell Waterman MD [address] [place] [address] Consulting Hematology/Oncology 09/13/19 Cristhian Romero MD, MD [address] [address] Consulting Radiology 09/13/19 Eber Antony MD [address] [place], [place] 8020631 Consulting Urology 09/13/19 Amee Escamilla (Fel) [address] [facility] [place] [place] 366[address]95 Consulting Hematology/Oncology 11/02/19 Omid Prabhakar MD [address] [place] [address] Consulting Pulmonary and Critical Care Medicine 11/02/19 Amrit Del Valle MD [address] [facility] [address] [place] [phone] Consulting Infectious Diseases 11/02/19 Wilber Maxwell MD [address] [address] Consulting Hematology/Oncology 11/02/19 Yamilka Mosley MD [address] [place] [address] Consulting Pulmonary Disease 11/02/19 Ernesto Dailey, microwave technician Branch Service Associate 12/19/22 01/16/23 Stefano James Physician Radiation Oncology 01/10/20 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 Relationship Specialty Start Date End Date Sheets, Najma Salomon DO PCP - General 08/12/15 Osiris Gonzales LISW [address] [address] Child Guidance Counselor Oncology 09/05/19 Martell Waterman MD [address] [place] [address] Consulting Hematology/Oncology 09/13/19 Cristhian Romero MD, MD [address] [id number] Consulting Radiology 09/13/19 Eber Antony MD [address] [place] [address] Consulting Urology 09/13/19 Amee Escamilla (Fel) [address] [place] [address] Consulting Hematology/Oncology 11/02/19 Omid Prabhakar MD [address] [place] [address] Consulting Pulmonary and Critical Care Medicine 11/02/19 Amrit Del Valle MD [address] [facility] [address] [place] [phone] Consulting Infectious Diseases 11/02/19 Wilber Maxwell MD [address] [address] Consulting Hematology/Oncology 11/02/19 Yamilka Mosley MD [address] [place] [address] Consulting Pulmonary Disease 11/02/19 Ernesto Dailey, microwave technician Branch Service Associate 12/19/22 01/16/23 Stefano Brizuelahoracio Physician Radiation Oncology 01/10/20 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 Relationship Specialty Start Date End Date Robert, Najma Salomon DO PCP - General 08/12/15 Osiris Gonzales LISW [address] [address] Child Guidance Counselor Oncology 09/05/19 Martell Waterman MD [address] [place] [address] Consulting Hematology/Oncology 09/13/19 Cristhian Romero MD, MD [address] [address] Consulting Radiology 09/13/19 Eber Antony MD [address] [place], [place] 8465831 Consulting Urology 09/13/19 Amee Escamilla ([facility]) [address] [place] [address] Consulting Hematology/Oncology 11/02/19 Omid Prabhakar MD [address] [place] [address] Consulting Pulmonary and Critical Care Medicine 11/02/19 Amrit Del Valle MD [address] [facility] [address] [place] [address] Consulting Infectious Diseases 11/02/19 Wilber Maxwell MD [address] [address] Consulting Hematology/Oncology 11/02/19 Yamilka Mosley MD [address] [place] [address] Consulting Pulmonary Disease 11/02/19 Ernesto Dailey, microwave technician Branch Service Associate 12/19/22 02/13/23 Stefano James Physician Radiation Oncology 01/10/20 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 Relationship Specialty Start Date End Date Sheets, Najma Salomon DO PCP - General 08/12/15 Osiris Gonzales LISW [address] [address] Child Guidance Counselor Oncology 09/05/19 Martell Waterman MD [address] [place] [address] Consulting Hematology/Oncology 09/13/19 Cristhian Romero MD, [address] [address] Consulting Radiology 09/13/19 Eber Antony MD [address] [place], [place] 1880531 Consulting Urology 09/13/19 Amee Escamilla ([facility]) [address] [place], [place] [id number] Consulting Hematology/Oncology 11/02/19 Omid Prabhakar MD [address] [place] [address] Consulting Pulmonary and Critical Care Medicine 11/02/19 Amrit Del Valle MD [address] [facility] [address] [place] [address] Consulting Infectious Diseases 11/02/19 Wilber Maxwell MD [address] [address] Consulting Hematology/Oncology 11/02/19 Yamilka Mosley MD [address] [place] [address] Consulting Pulmonary Disease 11/02/19 Ernesto Dailey, microwave technician Branch Service Associate 12/19/22 02/13/23 Stefano James Physician Radiation Oncology 01/10/20 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 Relationship Specialty Start Date End Date Robert, Najma Salomon DO PCP - General 08/12/15 Osiris Gonzales LISW [address] [address] Child Guidance Counselor Oncology 09/05/19 Martell Waterman MD [address] [place] [address] Consulting Hematology/Oncology 09/13/19 Cristhian Romero MD, MD [address] [address] Consulting Radiology 09/13/19 Eber Antony MD [address] [place], [place] 0161331 Consulting Urology 09/13/19 Amee Escamilla ([facility]) [address] [place] [address] Consulting Hematology/Oncology 11/02/19 Omid Prabhakar MD [address] [place] [address] Consulting Pulmonary and Critical Care Medicine 11/02/19 Amrit Del Valle MD [address] [facility] [place] [phone] Consulting Infectious Diseases 11/02/19 Wilber Maxwell MD [address] [address] Consulting Hematology/Oncology 11/02/19 Yamilka Mosley MD [address] [place] [address] Consulting Pulmonary Disease 11/02/19 Ernesto Dailey, microwave technician Branch Service Associate 12/19/22 02/13/23 Stefano James Physician Radiation Oncology 01/10/20 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 Relationship Specialty Start Date End Date Sheets, Najma Salomon DO PCP - General 08/12/15 Osiris Gonzales LISW [address] [address] Child Guidance Counselor Oncology 09/05/19 Martell Waterman MD [address] [place] [address] Consulting Hematology/Oncology 09/13/19 Cristhian Romero MD, MD [address] [address] Consulting Radiology 09/13/19 Eber Antony MD [address] [place], [place] 5944431 Consulting Urology 09/13/19 Amee Escamilla (Fel) [address] [place], [place] [phone] Consulting Hematology/Oncology 11/02/19 Omid Prabhakar MD [address] [place] [address] Consulting Pulmonary and Critical Care Medicine 11/02/19 Amrit Del Valle MD [address] [facility] [address] [place] [address] Consulting Infectious Diseases 11/02/19 Wilber Maxwell MD [address] [address] Consulting Hematology/Oncology 11/02/19 Yamilka Mosley MD [address] [place] [address] Consulting Pulmonary Disease 11/02/19 Ernesto Dailey, microwave technician Branch Service Associate 12/19/22 02/13/23 Stefano James Physician Radiation Oncology 01/10/20 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 Relationship Specialty Start Date End Date Sheets, Najma Salomon DO PCP - General 08/12/15 Osiris Gonzales LISW [address] [address] Child Guidance Counselor Oncology 09/05/19 Martell Waterman MD [address] [place] [address] Consulting Hematology/Oncology 09/13/19 Cristhian Romero MD, MD [address] [address] Consulting Radiology 09/13/19 Eber Antony MD [address] [place] [address] Consulting Urology 09/13/19 Amee Escamilla ([facility]) [address] [place] [address] Consulting Hematology/Oncology 11/02/19 Omid Prabhakar MD [address] [place] [address] Consulting Pulmonary and Critical Care Medicine 11/02/19 Amrit Del Valle MD 3033 [facility] [address] [place] [phone] Consulting Infectious Diseases 11/02/19 Wilber Maxwell MD [address] [address] Consulting Hematology/Oncology 11/02/19 Yamilka Mosley MD [address] [place] [address] Consulting Pulmonary Disease 11/02/19 Ernesto Dailey, microwave technician Branch Service Associate 12/19/22 02/13/23 Stefano James Physician Radiation Oncology 01/10/20 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 Relationship Specialty Start Date End Date Robert, Najma Salomon DO PCP - General 08/12/15 Osiris Gonzales LISW [address] [address] Child Guidance Counselor Oncology 09/05/19 Martell Waterman MD [address] [place] [address] Consulting Hematology/Oncology 09/13/19 Cristhian Romero MD, MD [address] [address] Consulting Radiology 09/13/19 Eber Antony MD [address] [place] [address] Consulting Urology 09/13/19 Amee Escamilla (Fel) [address] [place] [place], [place] 08648[address] Consulting Hematology/Oncology 11/02/19 Omid Prabhakar MD [address] [place] [address] Consulting Pulmonary and Critical Care Medicine 11/02/19 Amrit Del Valle MD [address] [place] [phone] Consulting Infectious Diseases 11/02/19 Wilber Maxwell MD [address] [address] Consulting Hematology/Oncology 11/02/19 Yamilka Mosley MD [address] [place] [address] Consulting Pulmonary Disease 11/02/19 Ernesto Dailey, microwave technician Branch Service Associate 12/19/22 02/13/23 Stefano James Physician Radiation Oncology 01/10/20 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 Relationship Specialty Start Date End Date Sheets, Najma Salomon DO PCP - General 08/12/15 Osiris Gonzales LISW [address] [address] Child Guidance Counselor Oncology 09/05/19 Maretll Waterman MD [address] [place] [address] Consulting Hematology/Oncology 09/13/19 Cristhian Romero MD, MD [address] [address] Consulting Radiology 09/13/19 Eber Antony MD [address] [place], [place] [id number] Consulting Urology 09/13/19 Amee Escamilla (Fel) [address] [place], [place] [id number] Consulting Hematology/Oncology 11/02/19 Omid Prabhakar MD [address] [place] [address] Consulting Pulmonary and Critical Care Medicine 11/02/19 Amrit Del Valle MD [address] [facility]. [address] [place] [phone] Consulting Infectious Diseases 11/02/19 Wilber Maxwell MD [address] [address] Consulting Hematology/Oncology 11/02/19 Yamilka Mosley MD [address] [place] [address] Consulting Pulmonary Disease 11/02/19 Ernesto Dailey, microwave technician Branch Service Associate 12/19/22 02/13/23 Stefano James Physician Radiation Oncology 01/10/20 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 Relationship Specialty Start Date End Date Sheets, Najma Salomon DO PCP - General 08/12/15 Osiris Gonzales LISW [address] [address] Child Guidance Counselor Oncology 09/05/19 Martell Waterman MD [address] [place] [address] Consulting Hematology/Oncology 09/13/19 Cristhian Romero MD, MD [address] [address] Consulting Radiology 09/13/19 Eber Antony MD [address] [place], [place] [id number] Consulting Urology 09/13/19 Amee Escamilla (Fel) [address] [facility] [place] [place] [address] Consulting Hematology/Oncology 11/02/19 Omid Prabhakar MD [address] [place] [address] Consulting Pulmonary and Critical Care Medicine 11/02/19 Amrit Del Valle MD [address] [facility] [address] [place] [phone] Consulting Infectious Diseases 11/02/19 Wilber Maxwell MD [address] [address] Consulting Hematology/Oncology 11/02/19 Yamilka Mosley MD [address] [place] [address] Consulting Pulmonary Disease 11/02/19 Ernesto Dailey, microwave technician Branch Service Associate 12/19/22 02/13/23 Stefano James Physician Radiation Oncology 01/10/20 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 Relationship Specialty Start Date End Date Sheets, Najma Salomon DO PCP - General 08/12/15 Osiris Gonzales LISW [address] [address] Child Guidance Counselor Oncology 09/05/19 aMrtell Waterman MD [address] [place] [address] Consulting Hematology/Oncology 09/13/19 Cristhian Romero MD, MD [address] [address] Consulting Radiology 09/13/19 Eber Antony MD [address] [place] [address] Consulting Urology 09/13/19 Amee Escamilla (Fel) [address] [facility] [place] [place] 286[address] Consulting Hematology/Oncology 11/02/19 Omid Prabhakar MD [address] [place], [place] [address]256 Consulting Pulmonary and Critical Care Medicine 11/02/19 Amrit Del Valle MD [address] [facility] [address] [place] [phone] Consulting Infectious Diseases 11/02/19 Wilber Maxwell MD [address] [id number] Consulting Hematology/Oncology 11/02/19 Yamilka Mosley MD [address] [place] [address] Consulting Pulmonary Disease 11/02/19 Ernesto Dailey, microwave technician Branch Service Associate 12/19/22 02/13/23 Stefano James Physician Radiation Oncology 01/10/20 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 Relationship Specialty Start Date End Date Sheets, Najma Salomon DO PCP - General 08/12/15 Osiris Gonzales LISW [address] [address] Child Guidance Counselor Oncology 09/05/19 Martell Waterman MD [address] [place] [address] Consulting Hematology/Oncology 09/13/19 Cristhian Romero MD, MD [address] [address] Consulting Radiology 09/13/19 Eber Antony MD [address] [place], [place] 1092431 Consulting Urology 09/13/19 Amee Escamilla (Fel) [address] [place], [place] [phone] Consulting Hematology/Oncology 11/02/19 Omid Prabhakar MD [address] [place] [address] Consulting Pulmonary and Critical Care Medicine 11/02/19 Amrit Del Valle MD [address] [facility] [address] [place] [phone] Consulting Infectious Diseases 11/02/19 Wilber Maxwell MD [address] [address] Consulting Hematology/Oncology 11/02/19 Yamilka Mosley MD [address] [place] [address] Consulting Pulmonary Disease 11/02/19 Stefano James Physician Radiation Oncology 01/10/20 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 Relationship Specialty Start Date End Date Sheets, Najma Salomon DO PCP - General 08/12/15 Osiris Gonzales LISW [address] [address] Child Guidance Counselor Oncology 09/05/19 Martell Waterman MD [address] [place] [address] Consulting Hematology/Oncology 09/13/19 Cristhian Romero MD, MD [address] [facility] [address] [place] [address] Consulting Radiology 09/13/19 Eber Antony MD [address] [place], [place] 5045931 Consulting Urology 09/13/19 Amee Escamilla ([facility]) [address] [place], [place] 3065295 Consulting Hematology/Oncology 11/02/19 Omid Prabhakar MD [address] [place] [address] Consulting Pulmonary and Critical Care Medicine 11/02/19 Amrit Del Valle MD [address] [facility] [address] [place] [phone] Consulting Infectious Diseases 11/02/19 Wilber Maxwell MD [address] [address] Consulting Hematology/Oncology 11/02/19 Yamilka Mosley MD [address] [place] [address] Consulting Pulmonary Disease 11/02/19 Stefano James Physician Radiation Oncology 01/10/20 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 Relationship Specialty Start Date End Date Sheets, Najma Salomon DO PCP - General 08/12/15 Osiris Gonzales LISW [address] [address] Child Guidance Counselor Oncology 09/05/19 Martell Waterman MD [address] [place] [address] Consulting Hematology/Oncology 09/13/19 Cristhian Romero MD, MD [address] [address] Consulting Radiology 09/13/19 Eber Antony MD [address] [place] [address] Consulting Urology 09/13/19 Amee Escamilla (Fel) [address] [place], [place] [id number] Consulting Hematology/Oncology 11/02/19 Omid Prabhakar MD [address] [place] [address] Consulting Pulmonary and Critical Care Medicine 11/02/19 Amrit Del Valle MD [address] [facility] [address] [place] [phone] Consulting Infectious Diseases 11/02/19 Wilber Maxwell MD [address] [address] Consulting Hematology/Oncology 11/02/19 Yamilka Mosley MD [address] [place] [address] Consulting Pulmonary Disease 11/02/19 Stefano James Physician Radiation Oncology 01/10/20 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 Relationship Specialty Start Date End Date Sheets, Najma Salomon DO PCP - General 08/12/15 Osiris Gonzales LISW [address] [address] Child Guidance Counselor Oncology 09/05/19 Martell Waterman MD [address] [place] [address] Consulting Hematology/Oncology 09/13/19 Cristhian Romero MD, MD [address] [address] Consulting Radiology 09/13/19 Eber Antony MD [address] [place], [place] 6670331 Consulting Urology 09/13/19 Amee Escamilla (Fel) [address] [place], [place] [phone] Consulting Hematology/Oncology 11/02/19 Omid Prabhakar MD [address] [place] [address] Consulting Pulmonary and Critical Care Medicine 11/02/19 Amrit Del Valle MD [address] [facility] [address] [place] [phone] Consulting Infectious Diseases 11/02/19 Wilber Maxwell MD [address] [address] Consulting Hematology/Oncology 11/02/19 Yamilka Mosley MD [address] [place] [address] Consulting Pulmonary Disease 11/02/19 Stefano James Physician Radiation Oncology 01/10/20 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 Relationship Specialty Start Date End Date Robert, Najma Salomon DO PCP - General 08/12/15 Osiris Gonzales LISW [address] [address] Child Guidance Counselor Oncology 09/05/19 Martell Waterman MD [address] [place] [address] Consulting Hematology/Oncology 09/13/19 Cristhian Romero MD, MD [address] [address] Consulting Radiology 09/13/19 Eber Antony MD [address] [place], [place] 2062231 Consulting Urology 09/13/19 Amee Escamilla (Fel) [address] [place], [place] 7032295 Consulting Hematology/Oncology 11/02/19 Omid Prabhakar MD [address] [place] [address] Consulting Pulmonary and Critical Care Medicine 11/02/19 Amrit Del Valle MD [address] [facility] [address] [place] [phone] Consulting Infectious Diseases 11/02/19 Wilber Maxwell MD [address] [address] Consulting Hematology/Oncology 11/02/19 Yamilka Mosley MD [address] [place] [address] Consulting Pulmonary Disease 11/02/19 Stefano James Physician Radiation Oncology 01/10/20 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 Relationship Specialty Start Date End Date Robert, Najma Salomon DO PCP - General 08/12/15 Osiris Gonzales LISW [address] [address] Child Guidance Counselor Oncology 09/05/19 Martell Waterman MD [address] [place] [address] Consulting Hematology/Oncology 09/13/19 Cristhian Romero MD, MD [address] [address] Consulting Radiology 09/13/19 Eber Antony MD [address] [place], [place] 9733531 Consulting Urology 09/13/19 Amee Escaimlla ([facility]) [address] [place], [place] [phone] Consulting Hematology/Oncology 11/02/19 Omid Prabhakar MD [address] [place] [address] Consulting Pulmonary and Critical Care Medicine 11/02/19 Amrit Del Valle MD [address] [facility] [address] [place] [phone] Consulting Infectious Diseases 11/02/19 Wilber Maxwell MD [address] [address] Consulting Hematology/Oncology 11/02/19 Yamilka Mosley MD [address] [place] [address] Consulting Pulmonary Disease 11/02/19 Stefano James Physician Radiation Oncology 01/10/20 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 Relationship Specialty Start Date End Date Sheets, Najma Salomon DO PCP - General 08/12/15 Osiris Gonzales LISW [address] [address] Child Guidance Counselor Oncology 09/05/19 Martell Waterman MD [address] [place] [address] Consulting Hematology/Oncology 09/13/19 Cristhian Romero MD, MD [address] [address] Consulting Radiology 09/13/19 Eber Antony MD [address] [place] [address] Consulting Urology 09/13/19 Amee Escamilla ([facility]) [address] [place] [address] Consulting Hematology/Oncology 11/02/19 Omid Prabhakar MD [address] [place] [address] Consulting Pulmonary and Critical Care Medicine 11/02/19 Amrit Del Valle MD [address] [facility] [address] [place] [phone] Consulting Infectious Diseases 11/02/19 Wilber Maxwell MD [address] [address] Consulting Hematology/Oncology 11/02/19 Yamilka Mosley MD [address] [place] [address] Consulting Pulmonary Disease 11/02/19 Stefano James Physician Radiation Oncology 01/10/20 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 Relationship Specialty Start Date End Date Robert, Najma Salomon PCP - General 08/12/15 Osiris Gonzales LISW [address] [address] Child Guidance Counselor Oncology 09/05/19 Martell Waterman MD [address] [place] [address] Consulting Hematology/Oncology 09/13/19 Cristhian Romero MD, MD [address] [address] Consulting Radiology 09/13/19 Eber Antony MD [address] [place] [address] Consulting Urology 09/13/19 Amee Escamilla (Fel) [address] [place], [place] 1137895 Consulting Hematology/Oncology 11/02/19 Omid Prabhakar MD [address] [place] [address] Consulting Pulmonary and Critical Care Medicine 11/02/19 Amrit Del Valle MD [address] [facility] [address] [place] [phone] Consulting Infectious Diseases 11/02/19 Wilber Maxwell MD [address] [address] Consulting Hematology/Oncology 11/02/19 Yamilka Mosley MD [address] [place] [address] Consulting Pulmonary Disease 11/02/19 Stefano James Physician Radiation Oncology 01/10/20 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 Relationship Specialty Start Date End Date Robert, Najma Salomon DO PCP - General 08/12/15 Osiris Gonzales LISW [address] [address] Child Guidance Counselor Oncology 09/05/19 Martell Waterman MD [address] [place] [address] Consulting Hematology/Oncology 09/13/19 Cristhian Romero MD, MD [address] [address] Consulting Radiology 09/13/19 Eber Antony MD [address] [place], [place] 9695631 Consulting Urology 09/13/19 Amee Escamilla (Fel) [address] [place] [address] Consulting Hematology/Oncology 11/02/19 Omid Prabhakar MD [address] [place] [address] Consulting Pulmonary and Critical Care Medicine 11/02/19 Amrit Del Valle MD [address] [facility] [address] [place] [phone] Consulting Infectious Diseases 11/02/19 Wilber Maxwell MD [address] [address] Consulting Hematology/Oncology 11/02/19 Yamilka Mosley MD [address] [place] [address] Consulting Pulmonary Disease 11/02/19 Stefano James Physician Radiation Oncology 01/10/20 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 Relationship Specialty Start Date End Date Najma Bloom DO PCP - General 08/12/15 Osiris Gonzales LISW [address] [address] Child Guidance Counselor Oncology 09/05/19 Martell Waterman MD [address] [place] [address] Consulting Hematology/Oncology 09/13/19 Cristhian Romero MD, MD [address] [address] Consulting Radiology 09/13/19 Eber Antony MD [address] [place], [place] 8194831 Consulting Urology 09/13/19 Amee Escamilla (Fel) [address] [facility] [place] 35[address] Consulting Hematology/Oncology 11/02/19 Omid Prabhakar MD [address] [place] [address] Consulting Pulmonary and Critical Care Medicine 11/02/19 Amrit Del Valle MD 3033 [facility] [address] [place] [phone] Consulting Infectious Diseases 11/02/19 Wilber Maxwell MD [address] [address] Consulting Hematology/Oncology 11/02/19 Yamilka Mosley MD [address] [place] [address] Consulting Pulmonary Disease 11/02/19 Stefano Vassil Physician Radiation Oncology 01/10/20 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 Relationship Specialty Start Date End Date Robert, Najma Salomon DO PCP - General 08/12/15 Osiris Gonzales LISW [address] [address] Child Guidance Counselor Oncology 09/05/19 Martell Waterman MD [address] [place] [address] Consulting Hematology/Oncology 09/13/19 Cristhian Romero MD, MD [address] [address] Consulting Radiology 09/13/19 Eber Antony MD [address] [place], [place] 9259231 Consulting Urology 09/13/19 Amee Escamilla (Fel) [address] [facility] [place] [place] 0[address]95 Consulting Hematology/Oncology 11/02/19 Omid Prabhakar MD [address] [place] [address] Consulting Pulmonary and Critical Care Medicine 11/02/19 Amrit Del Valle MD [address]33 [facility] [address] [place] [address]23[address] Consulting Infectious Diseases 11/02/19 Wilber Maxwell MD [address] [address] Consulting Hematology/Oncology 11/02/19 Yamilka Mosley MD [address] [place] [address] Consulting Pulmonary Disease 11/02/19 Stefano Vassil Physician Radiation Oncology 01/10/20 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 Relationship Specialty Start Date End Date Najma Bloom DO PCP - General 08/12/15 Osiris Gonzales LISW [address] [address] Child Guidance Counselor Oncology 09/05/19 Martell Waterman MD [address] [place] [address] Consulting Hematology/Oncology 09/13/19 Cristhian Romero MD, MD [address] [address] Consulting Radiology 09/13/19 Eber Antony MD [address] [place] [address] Consulting Urology 09/13/19 Amee Escamilla (Fel) [address] [place] [address] Consulting Hematology/Oncology 11/02/19 Omid Prabhakar MD [address] [place] [address] Consulting Pulmonary and Critical Care Medicine 11/02/19 Amrit Del Valle MD 3033 [facility] [address] [place] [phone] Consulting Infectious Diseases 11/02/19 Wilber Maxwell MD [address] [address] Consulting Hematology/Oncology 11/02/19 Yamilka Mosley MD [address] [place] [address] Consulting Pulmonary Disease 11/02/19 Stefano James Physician Radiation Oncology 01/10/20 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 Relationship Specialty Start Date End Date Sheets, Najma Salomon DO PCP - General 08/12/15 Osiris Gonzales LISW [address] [address] Child Guidance Counselor Oncology 09/05/19 Martell Waterman MD [address] [place] [address] Consulting Hematology/Oncology 09/13/19 Cristhian Romero MD, MD [address] [address] Consulting Radiology 09/13/19 Eber Antony MD [address] [place] [address] Consulting Urology 09/13/19 Amee Escamilla (Fel) [address] [place] [address] Consulting Hematology/Oncology 11/02/19 Omid Prabhakar MD [address] [place] [address] Consulting Pulmonary and Critical Care Medicine 11/02/19 Amrit Del Valle MD 3033 [facility] [address] [place] [phone] Consulting Infectious Diseases 11/02/19 Wilber Maxwell MD [address] [address] Consulting Hematology/Oncology 11/02/19 Yamilka Mosley MD [address] [place] [address] Consulting Pulmonary Disease 11/02/19 Stefano Jacob Physician Radiation Oncology 01/10/20 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 Relationship Specialty Start Date End Date Sheets, Najma Salomon DO PCP - General 08/12/15 Osiris Gonzales LISW [address] [address] Child Guidance Counselor Oncology 09/05/19 Martell Waterman MD [address] [place] [address] Consulting Hematology/Oncology 09/13/19 Cristhian Romero MD, MD [address] [address] Consulting Radiology 09/13/19 Eber Antony MD [address] [place], [place] 5041931 Consulting Urology 09/13/19 Amee Escamilla (Fel) [address] [place] [address] Consulting Hematology/Oncology 11/02/19 Omid rPabhakar MD [address] [place] [address] Consulting Pulmonary and Critical Care Medicine 11/02/19 Amrit Del Valle MD 3033 [facility] [address] [place] [phone] Consulting Infectious Diseases 11/02/19 Wilber Maxwell MD [address] [address] Consulting Hematology/Oncology 11/02/19 Yamilka Msoley MD [address] [place] [address] Consulting Pulmonary Disease 11/02/19 Stefano Brizuelahoracio Physician Radiation Oncology 01/10/20 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 Relationship Specialty Start Date End Date Robert Najma Salomon DO PCP - General 08/12/15 Osiris Gonzales LISW [address] [address] Child Guidance Counselor Oncology 09/05/19 Martell Waterman MD [address] [place] [address] Consulting Hematology/Oncology 09/13/19 Cristhian Romero MD, [address] [address] Consulting Radiology 09/13/19 Eber Antony MD [address] [place], [place] 9277631 Consulting Urology 09/13/19 Amee Escamilla ([facility]) [address] [place], [place] 9657195 Consulting Hematology/Oncology 11/02/19 Omid Prabhakar MD [address] [place] [address] Consulting Pulmonary and Critical Care Medicine 11/02/19 Amrit Del Valle MD 3033 [facility] [address] [place] [phone] Consulting Infectious Diseases 11/02/19 Wilber Maxwell MD [address] [address] Consulting Hematology/Oncology 11/02/19 Yamilka Mosley MD [address] [place] [address] Consulting Pulmonary Disease 11/02/19 Stefano Brizuelahoracio Physician Radiation Oncology 01/10/20 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 Relationship Specialty Start Date End Date Najma Bloom DO PCP - General 08/12/15 Osiris Gonzales LISW [address] [address] Child Guidance Counselor Oncology 09/05/19 Martell Waterman MD [address] [place] [address] Consulting Hematology/Oncology 09/13/19 Cristhian Romero MD, MD [address] [address] Consulting Radiology 09/13/19 Eber Antony MD [address] [place] [address] Consulting Urology 09/13/19 Amee Escamilla ([facility]) [address] [facility] [place] [place] [address]40395 Consulting Hematology/Oncology 11/02/19 Omid Prabhakar MD [address] [place] [address] Consulting Pulmonary and Critical Care Medicine 11/02/19 Amrit Del Valle MD 3033 [facility]. [address] [place] [phone] Consulting Infectious Diseases 11/02/19 Wilber Maxwell MD [address] [address] Consulting Hematology/Oncology 11/02/19 Yamilka Mosley MD [address] [place] [address] Consulting Pulmonary Disease 11/02/19 Stefano James Physician Radiation Oncology 01/10/20 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 Relationship Specialty Start Date End Date Najma Bloom DO PCP - General 08/12/15 Osiris Gonzales LISW [address] [address] Child Guidance Counselor Oncology 09/05/19 Martell Waterman MD [address] [place] [address] Consulting Hematology/Oncology 09/13/19 Cristhian Romero MD, [address] [address] Consulting Radiology 09/13/19 Eber Antony MD [address] [facility] [place] [address] Consulting Urology 09/13/19 Andi, Mohammad (Fel) [address] [place], [place] 0645695 Consulting Hematology/Oncology 11/02/19 Omid Prabhakar MD [address] [place] [address] Consulting Pulmonary and Critical Care Medicine 11/02/19 Amrit Del Valle MD [address] [facility] [address] [place] [address] Consulting Infectious Diseases 11/02/19 Wilber Maxwell MD [address] [address] Consulting Hematology/Oncology 11/02/19 Yamilka Mosley MD [address] [place] [address] Consulting Pulmonary Disease 11/02/19 Stefano James Physician Radiation Oncology 01/10/20 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 Relationship Specialty Start Date End Date Najam Bloom DO PCP - General 08/12/15 Osiris Gonzales LISW [address] [address] Child Guidance Counselor Oncology 09/05/19 Martell Waterman MD [address] [place] [address] Consulting Hematology/Oncology 09/13/19 Cristhian Romero MD, MD [address] [address] Consulting Radiology 09/13/19 Eber Antony MD [address] [facility], [place] 7334931 Consulting Urology 09/13/19 Amee Escamilla (Fel) [address] [facility] [place], [place] 8[address]95 Consulting Hematology/Oncology 11/02/19 Omid Prabhakar MD [address] [place] [address] Consulting Pulmonary and Critical Care Medicine 11/02/19 Amrit Del Valle MD 3033 [facility] [address] [place] [address] Consulting Infectious Diseases 11/02/19 Wilber Maxwell MD [address] [address] Consulting Hematology/Oncology 11/02/19 Yamilka Mosley MD [address] [place] [address] Consulting Pulmonary Disease 11/02/19 Stefano James Physician Radiation Oncology 01/10/20 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 Relationship Specialty Start Date End Date Najma Bloom DO PCP - General 08/12/15 Osiris Gonzales LISW [address] [address] Child Guidance Counselor Oncology 09/05/19 Martell Waterman MD [address] [place] [address] Consulting Hematology/Oncology 09/13/19 Cristhian Romero MD, [address] [address] Consulting Radiology 09/13/19 Eber Antony MD [address] [place] [address] Consulting Urology 09/13/19 mAee Escamilla (Fel) [address] [place], [place] [phone] Consulting Hematology/Oncology 11/02/19 Omid Prabhakar MD [address] [place] [address] Consulting Pulmonary and Critical Care Medicine 11/02/19 Amrit Del Valle MD 3033 [facility] [address] [place] [phone] Consulting Infectious Diseases 11/02/19 Wilber Maxwell MD [address] [address] Consulting Hematology/Oncology 11/02/19 Yamilka Mosley MD [address] [place] [address] Consulting Pulmonary Disease 11/02/19 Stefano James Physician Radiation Oncology 01/10/20 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 Relationship Specialty Start Date End Date Najma Bloom DO PCP - General 08/12/15 Osiris Gonzales LISW [address] [address] Child Guidance Counselor Oncology 09/05/19 Martell Waterman MD [address] [place] [address] Consulting Hematology/Oncology 09/13/19 Cristhian Romero MD, [address] [address] Consulting Radiology 09/13/19 Eber Antony MD [address] [place] [address] Consulting Urology 09/13/19 Amee Escamilla ([facility]) [address] [place], [place] [phone] Consulting Hematology/Oncology 11/02/19 Omid Prabhakar MD [address] [place] [address] Consulting Pulmonary and Critical Care Medicine 11/02/19 Amrit Del Valle MD [facility] [address] [place] [phone] Consulting Infectious Diseases 11/02/19 Wilber Maxwell MD [address] [address] Consulting Hematology/Oncology 11/02/19 Yamilka Mosley MD [address] [place] [address] Consulting Pulmonary Disease 11/02/19 Epi Polanco MD [address] [facility] [facility] [address] [place] [address] Chief Procurement Officer Nephrology 05/29/23 Stefano James Physician Radiation Oncology 01/10/20 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 Relationship Specialty Start Date End Date Robert Najma Salomon DO PCP - General 08/12/15 Osiris Gonzales LISW [address] [address] Child Guidance Counselor Oncology 09/05/19 Martell Waterman MD [address] [place] [address] Consulting Hematology/Oncology 09/13/19 Cristhian Romero MD, 224 [facility] 300 [place] [address] Consulting Radiology 09/13/19 Eber Antony MD [address] [place] [address] Consulting Urology 09/13/19 Amee Escamilla ([facility]) [address]00 [place] [address] Consulting Hematology/Oncology 11/02/19 Omid Prabhakar MD [address] [place] [address] Consulting Pulmonary and Critical Care Medicine 11/02/19 Amrit Del Valle MD 3033 [facility] [address] [place] [phone] Consulting Infectious Diseases 11/02/19 Wilber Maxwell MD [address] [address] Consulting Hematology/Oncology 11/02/19 Yamilka Mosley MD [address] [place] [address] Consulting Pulmonary Disease 11/02/19 Epi Polanco MD [address] [facility] [address] [place] [address] Chief Procurement Officer Nephrology 05/29/23 Stefano James Physician Radiation Oncology 01/10/20 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 Relationship Specialty Start Date End Date Najma Bloom DO PCP - General 08/12/15 Osiris Gonzales LISW [address] [id number] Child Guidance Counselor Oncology 09/05/19 Martell Waterman MD [address] [place] [address] Consulting Hematology/Oncology 09/13/19 Cristhian Romero MD, 224 [facility] [address] [place] [address] Consulting Radiology 09/13/19 Eber Antony MD [address] [place], [place] [address] Consulting Urology 09/13/19 Amee Escamilla ([facility]) [address] [place] [address] Consulting Hematology/Oncology 11/02/19 Omid Prabhakar MD [address] [place] [address] Consulting Pulmonary and Critical Care Medicine 11/02/19 Amrit Del Valle MD [address] [place] [address] Consulting Infectious Diseases 11/02/19 Wilber Maxwell MD [address] [address] Consulting Hematology/Oncology 11/02/19 Yamilka Mosley MD [address] [place] [address] Consulting Pulmonary Disease 11/02/19 [place] [address] [address] Chief Procurement Officer Nephrology 05/29/23 Stefano James Physician Radiation Oncology 01/10/20 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 Relationship Specialty Start Date End Date Najma Bloom DO PCP - General 08/12/15 Osiris Gonzales LISW [address] [address] Child Guidance Counselor Oncology 09/05/19 Martell Waterman MD [address] [place] [address] Consulting Hematology/Oncology 09/13/19 Cristhian Romero MD, 224 [facility] 300 [place] [address] Consulting Radiology 09/13/19 Eber Antony MD [address] [place] [address] Consulting Urology 09/13/19 Amee Escamilla (Fel) [address] [place] [address] Consulting Hematology/Oncology 11/02/19 Omid Prabhakar MD [address]70 [place] [address] Consulting Pulmonary and Critical Care Medicine 11/02/19 Amrit Del Valle MD 3033 [facility] [address] [place] [phone] Consulting Infectious Diseases 11/02/19 Wilber Maxwell MD [address] [address] Consulting Hematology/Oncology 11/02/19 Yamilka Mosley MD [address] [place] [address] Consulting Pulmonary Disease 11/02/19 Epi Polanco MD [address] [place] [address] Chief Procurement Officer Nephrology 05/29/23 Stefano James Physician Radiation Oncology 01/10/20 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 Relationship Specialty Start Date End Date Najma Bloom DO PCP - General 08/12/15 Osiris Gonzales LISW [address] [address] Child Guidance Counselor Oncology 09/05/19 Martell Waterman MD [address] [place] [address] Consulting Hematology/Oncology 09/13/19 Crishtian Romero MD, MD [address] [address] Consulting Radiology 09/13/19 Eber Antony MD [address] [place] [address] Consulting Urology 09/13/19 Amee Escamilla (Fel) [address] [place] [address] Consulting Hematology/Oncology 11/02/19 Omid Prabhakar MD [address] [place] [address] Consulting Pulmonary and Critical Care Medicine 11/02/19 Amrit Del Valle MD 3033 [facility] [address] [place] [phone] Consulting Infectious Diseases 11/02/19 Wilber Maxwell MD [address] [address] Consulting Hematology/Oncology 11/02/19 Yamilka Mosley MD [address] [place] [address] Consulting Pulmonary Disease 11/02/19 Epi Polanco MD [address] [facility] [address] [place] [address] Chief Procurement Officer Nephrology 05/29/23 Stefano Brizuelahoracio Physician Radiation Oncology 01/10/20 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 Relationship Specialty Start Date End Date Robert, Najma Salomon DO PCP - General 08/12/15 Osiris Gonzales LISW [address] [address] Child Guidance Counselor Oncology 09/05/19 Martell Waterman MD [address] [place] [address] Consulting Hematology/Oncology 09/13/19 Cristhian Romero MD, 224 [facility] 300 [place] [address] Consulting Radiology 09/13/19 Eber Antony MD [address] [place] [address] Consulting Urology 09/13/19 Amee Escamilla (Fel) [address] [place] [address] Consulting Hematology/Oncology 11/02/19 Omid Prabhakar MD [address] [place] [address] Consulting Pulmonary and Critical Care Medicine 11/02/19 Amrit Del Valle MD 3033 [facility] [address] [place] [phone] Consulting Infectious Diseases 11/02/19 Wilber Maxwell MD [address] [address] Consulting Hematology/Oncology 11/02/19 Yamilka Mosley MD [address] [place] [address] Consulting Pulmonary Disease 11/02/19 Epi Polanco MD [address] [address] Chief Procurement Officer Nephrology 05/29/23 Stefano James Physician Radiation Oncology 01/10/20 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 Relationship Specialty Start Date End Date Najma Bloom DO PCP - General 08/12/15 Osiris Gonzales LISW [address] [address] Child Guidance Counselor Oncology 09/05/19 Martell Waterman MD [address] [place] [address] Consulting Hematology/Oncology 09/13/19 Cristhian Romero MD, 224 [facility] [address] [place] [address] Consulting Radiology 09/13/19 Eber Antony MD 5001 [facility] [address] Consulting Urology 09/13/19 Amee Escamilla (Fel) 9500 [facility] [place], [place] [address] Consulting Hematology/Oncology 11/02/19 Omid Prabhakar MD [address] [place] [address] Consulting Pulmonary and Critical Care Medicine 11/02/19 Amrit Del Valle MD [address] [place] [phone] Consulting Infectious Diseases 11/02/19 Wilber Maxwell MD [address] [address] Consulting Hematology/Oncology 11/02/19 Yamilka Mosley MD [address] [place] [address] Consulting Pulmonary Disease 11/02/19 Epi Polanco MD [address] [address] Chief Procurement Officer Nephrology 05/29/23 Stefano James Physician Radiation Oncology 01/10/20 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 Relationship Specialty Start Date End Date Najma Bloom DO PCP - General 08/12/15 Osiris Gonzales LISW [address] [address] Child Guidance Counselor Oncology 09/05/19 Martell Waterman MD [address] [place] [address] Consulting Hematology/Oncology 09/13/19 Cristhian Romero MD, 224 [facility] [address] [place] [address] Consulting Radiology 09/13/19 Eber Antony MD 5001 [facility] [place] [address] Consulting Urology 09/13/19 Amee Escamilla (Fel) [address] [place], [place] [address] Consulting Hematology/Oncology 11/02/19 Omid Prabhakar MD [address] [place] [address] Consulting Pulmonary and Critical Care Medicine 11/02/19 Amrit Del Valle MD 3033 [facility] [address] [place] [phone] Consulting Infectious Diseases 11/02/19 Wilber Maxwell MD [address] [address] Consulting Hematology/Oncology 11/02/19 Yamilka Mosley MD [address] [place] [address] Consulting Pulmonary Disease 11/02/19 Epi Polanco MD 7255 [facility] [address] [place] [address] Chief Procurement Officer Nephrology 05/29/23 Stefano James Physician Radiation Oncology 01/10/20 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 Relationship Specialty Start Date End Date Batool Bloomberly AimeDO PCP - General 08/12/15 Osiris Gonzales LISW [address] [address] Child Guidance Counselor Oncology 09/05/19 Martell Waterman MD [address] [place] [address] Consulting Hematology/Oncology 09/13/19 Cristhian Romero MD, MD [address] [address] Consulting Radiology 09/13/19 [place] [address] [place] [address] Consulting Urology 09/13/19 Amee Escaimlla (Fel) [address] [place], [place] [address] Consulting Hematology/Oncology 11/02/19 Omid Prabhakar MD [address] [place] [address] Consulting Pulmonary and Critical Care Medicine 11/02/19 Amrit Del Valle MD 3033 [facility] [address] [place] [phone] Consulting Infectious Diseases 11/02/19 Wilber Maxwell MD [address] [address] Consulting Hematology/Oncology 11/02/19 Yamilka Mosley MD [address] [place] [address] Consulting Pulmonary Disease 11/02/19 Epi Polanco MD [address] [facility] [address] [place] [address] Chief Procurement Officer Nephrology 05/29/23 Stefano James Physician Radiation Oncology 01/10/20 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 Relationship Specialty Start Date End Date Najma Bloom DO PCP - General 08/12/15 Osiris Gonzales LISW [address] [address] Child Guidance Counselor Oncology 09/05/19 Martell Waterman MD [address] [place] [address] Consulting Hematology/Oncology 09/13/19 Cristhian Romero MD, MD 224 [facility] 300 [place] [address] Consulting Radiology 09/13/19 Eber Antony MD [address]001 [place], [place] [address] Consulting Urology 09/13/19 Amee Escamilla ([facility]) [address] [place] [address] Consulting Hematology/Oncology 11/02/19 Omid Prabhakar MD [address] [place] [address] Consulting Pulmonary and Critical Care Medicine 11/02/19 Amrit Del Valle MD [address] [place] [address] Consulting Infectious Diseases 11/02/19 Wilber aMxwell MD [address] [address] Consulting Hematology/Oncology 11/02/19 Yamilka Mosley MD [address] [place] [address] Consulting Pulmonary Disease 11/02/19 Epi Polanco MD [address] [place] [address] Chief Procurement Officer Nephrology 05/29/23 Stefano James Physician Radiation Oncology 01/10/20 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 Relationship Specialty Start Date End Date Najma Bloom DO PCP - General 08/12/15 Osiris Gonzales LISW [address] [address] Child Guidance Counselor Oncology 09/05/19 Martell Waterman MD [address] [place] [address] Consulting Hematology/Oncology 09/13/19 Cristhian Romero MD, MD 224 [facility] 300 [place] [address] Consulting Radiology 09/13/19 Eber Antony MD [address]001 [place] [address] Consulting Urology 09/13/19 Amee Escamilla (Fel) [address] [place], [place] [address] Consulting Hematology/Oncology 11/02/19 Omid Prabhakar MD [address] [place] [address] Consulting Pulmonary and Critical Care Medicine 11/02/19 Amrit Del Valle MD 3033 [facility] [address] [place] [phone] Consulting Infectious Diseases 11/02/19 Wilber Maxwell MD [address] [address] Consulting Hematology/Oncology 11/02/19 Yamilka Mosley MD [address] [place] [address] Consulting Pulmonary Disease 11/02/19 Epi Polanco MD [address] [address] Chief Procurement Officer Nephrology 05/29/23 Stefano James Physician Radiation Oncology 01/10/20 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 Relationship Specialty Start Date End Date Najma Bloom DO PCP - General 08/12/15 Osiris Gonzales LISW [address] [address] Child Guidance Counselor Oncology 09/05/19 Martell Waterman MD [address] [place] [address] Consulting Hematology/Oncology 09/13/19 Cristhian Romero MD, 224 [facility] [address] [place] [address] Consulting Radiology 09/13/19 Eber Antony MD [address] [place] [address] Consulting Urology 09/13/19 Amee Escamilla (Fel) [address] [place] [address] Consulting Hematology/Oncology 11/02/19 Omid Prabhakar MD [address] [place] [address] Consulting Pulmonary and Critical Care Medicine 11/02/19 Amrit Del Valle MD 3033 [facility] [address] [place] [phone] Consulting Infectious Diseases 11/02/19 Wilber Maxwell MD [address] [address] Consulting Hematology/Oncology 11/02/19 Yamilka Mosley MD [address] [place] [address] Consulting Pulmonary Disease 11/02/19 Epi Polanco MD [address] [facility] [address] [place] [address] Chief Procurement Officer Nephrology 05/29/23 Stefano Vassil Physician Radiation Oncology 01/10/20 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 Relationship Specialty Start Date End Date Najma Bloom DO PCP - General 08/12/15 Osiris Gonzales LISW [address] [address] Child Guidance Counselor Oncology 09/05/19 Martell Waterman MD [address] [place], [place] [address] Consulting Hematology/Oncology 09/13/19 Cristhian Romero MD, [address] [address] Consulting Radiology 09/13/19 [place] [address] [place] [address] Consulting Urology 09/13/19 Amee Escamilla (Fel) [address] [place] [address] Consulting Hematology/Oncology 11/02/19 Omid Prabhakar MD [address] [place] [address] Consulting Pulmonary and Critical Care Medicine 11/02/19 Amrit Del Valle MD 3033 [facility] [address] [place] [phone] Consulting Infectious Diseases 11/02/19 Wilber Maxwell MD [address] [address] Consulting Hematology/Oncology 11/02/19 Yamilka Mosley MD [address] [place] [address] Consulting Pulmonary Disease 11/02/19 Epi Polanco MD [address] [facility] [place] [address] Chief Procurement Officer Nephrology 05/29/23 Stefano James Physician Radiation Oncology 01/10/20 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 Relationship Specialty Start Date End Date Robert, Najma Salomon DO PCP - General 08/12/15 Osiris Gonzales LISW [address] [address] Child Guidance Counselor Oncology 09/05/19 Martell Waterman MD [address] [place] [address] Consulting Hematology/Oncology 09/13/19 Cristhian Romero MD, [address] [address] Consulting Radiology 09/13/19 Eber Antony MD 500 [place] [address] Consulting Urology 09/13/19 Amee Escamilla (Fel) [address]00 [place] [address] Consulting Hematology/Oncology 11/02/19 Omid Prabhakar MD [address] [place] [address] Consulting Pulmonary and Critical Care Medicine 11/02/19 Amrit Del Valle MD [address] [place] [address] Consulting Infectious Diseases 11/02/19 Wilber Maxwell MD [address] [address] Consulting Hematology/Oncology 11/02/19 Yamilka Mosley MD [address] [place] [address] Consulting Pulmonary Disease 11/02/19 Epi Polanco MD [address] [address] Chief Procurement Officer Nephrology 05/29/23 Stefano James Physician Radiation Oncology 01/10/20 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 Relationship Specialty Start Date End Date Najma Bloom DO PCP - General 08/12/15 Osiris Gonzales LISW [address] [address] Child Guidance Counselor Oncology 09/05/19 Martell Waterman MD [address] [place], [place] [address] Consulting Hematology/Oncology 09/13/19 Cristhian Romero MD, 224 [facility] 300 [place] [address] Consulting Radiology 09/13/19 Eber Antony MD [address]001 [place] [address] Consulting Urology 09/13/19 Amee Escamilla (Fel) [address] [place], [place] [address] Consulting Hematology/Oncology 11/02/19 [place] [address] [facility] [address] [place] [address] Consulting Pulmonary and Critical Care Medicine 11/02/19 Amrit Del Valle MD 3033 [facility] [address] [place] [phone] Consulting Infectious Diseases 11/02/19 Wilber Maxwell MD [address] [address] Consulting Hematology/Oncology 11/02/19 Yamilka Mosley MD [address] [place] [address] Consulting Pulmonary Disease 11/02/19 Epi Polanco MD 7255 [facility] [address] [place] [address] Chief Procurement Officer Nephrology 05/29/23 Stefano James Physician Radiation Oncology 01/10/20 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 Relationship Specialty Start Date End Date Robert, Najma Salomon DO PCP - General 08/12/15 Osiris Gonzales LISW [address] [address] Child Guidance Counselor Oncology 09/05/19 Martell Waterman MD [address] [place] [address] Consulting Hematology/Oncology 09/13/19 Cristhian Romero MD, 224 [facility] [address] [place] [address] Consulting Radiology 09/13/19 [place] [address] [place] [address] Consulting Urology 09/13/19 Amee Escamilla ([facility]) [address] [place], [place] [address]376195 Consulting Hematology/Oncology 11/02/19 Omid Prabhakar MD [facility] [address] [place] [address] Consulting Pulmonary and Critical Care Medicine 11/02/19 Amrit Del Valle MD [facility] [address] [place] [phone] Consulting Infectious Diseases 11/02/19 Wilber Maxwell MD [address] [address] Consulting Hematology/Oncology 11/02/19 Yamilka Mosley MD [address] [place] [address] Consulting Pulmonary Disease 11/02/19 Epi Polanco MD [address] [facility] [address] [place] [address] Chief Procurement Officer Nephrology 05/29/23 Stefano James Physician Radiation Oncology 01/10/20 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 Relationship Specialty Start Date End Date Robert Najma Salomon DO PCP - General 08/12/15 Osiris Gonzales LISW [address] [id number] Child Guidance Counselor Oncology 09/05/19 Martell Waterman MD [address] [place], [place] [address] Consulting Hematology/Oncology 09/13/19 Cristhian Romero MD, 224 [facility] [address] [place] [address] Consulting Radiology 09/13/19 Eber Antony MD [address]001 [place] [address] Consulting Urology 09/13/19 Amee Escamilla ([facility]) [address] [place] [address] Consulting Hematology/Oncology 11/02/19 [place] [address] [facility] [address] [place] [address] Consulting Pulmonary and Critical Care Medicine 11/02/19 Amrit Del Valle MD 3033 [facility] [address] [place] [phone] Consulting Infectious Diseases 11/02/19 Wilber Maxwell MD [address] [address] Consulting Hematology/Oncology 11/02/19 Yamilka Mosley MD [address] [place] [address] Consulting Pulmonary Disease 11/02/19 Epi Polanco MD [address] [place] [address] Chief Procurement Officer Nephrology 05/29/23 Stefano James Physician Radiation Oncology 01/10/20 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 Relationship Specialty Start Date End Date Najma Bloom DO PCP - General 08/12/15 Osiris Gonzales LISW [address] [address] Child Guidance Counselor Oncology 09/05/19 Martell Waterman MD [address] [place] [address] Consulting Hematology/Oncology 09/13/19 Cristhian Romero MD, 224 [facility] 300 [place] [address] Consulting Radiology 09/13/19 Eber Antony MD [address] [place], [place] [address]31 Consulting Urology 09/13/19 Amee Escamilla ([facility]) [address] [place], [place] [phone] Consulting Hematology/Oncology 11/02/19 Omid Prabhakar MD [facility] [address] [place] [address] Consulting Pulmonary and Critical Care Medicine 11/02/19 Amrit Del Valle MD [address] [place] [address] Consulting Infectious Diseases 11/02/19 Wilber Maxwell MD [address] [address] Consulting Hematology/Oncology 11/02/19 Yamilka Mosley MD [address] [place] [address] Consulting Pulmonary Disease 11/02/19 Epi Polanco MD [address] [facility] [address] [place] [address] Chief Procurement Officer Nephrology 05/29/23 Stefano James Physician Radiation Oncology 01/10/20 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 Relationship Specialty Start Date End Date Najma Bloom DO PCP - General 08/12/15 Osiris Gonzales LISW [address] [address] Child Guidance Counselor Oncology 09/05/19 Martell Waterman MD [address] [place] [address] Consulting Hematology/Oncology 09/13/19 Cristhian Romero MD, 224 [facility] [address] [place] [address] Consulting Radiology 09/13/19 Eber Antony MD [address]001 [place] [address] Consulting Urology 09/13/19 Amee Escamilla ([facility]) [address] [place] [address] Consulting Hematology/Oncology 11/02/19 [place] [address] [facility] [address] [place] [address] Consulting Pulmonary and Critical Care Medicine 11/02/19 Amrit Del Valle MD 3033 [facility] [address] [place] [phone] Consulting Infectious Diseases 11/02/19 Wilber Maxwell MD [address] [address] Consulting Hematology/Oncology 11/02/19 Yamilka Mosley MD [address] [place] [address] Consulting Pulmonary Disease 11/02/19 Epi Polanco MD 7255 [facility] [address] [place] [address] Chief Procurement Officer Nephrology 05/29/23 Stefano James Physician Radiation Oncology 01/10/20 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 Relationship Specialty Start Date End Date Robert, Najma Salomon DO PCP - General 08/12/15 Osiris Gonzales LISW [address] [address] Child Guidance Counselor Oncology 09/05/19 Martell Waterman MD [address] [place] [address] Consulting Hematology/Oncology 09/13/19 Cristhian Romero MD, 224 [facility] [address] [place] [address] Consulting Radiology 09/13/19 Eber Antony MD [address] [place] [address] Consulting Urology 09/13/19 Amee Escamilla (Fel) [address] [place] [address] Consulting Hematology/Oncology 11/02/19 [place] [address] [facility] [address] [place] [address] Consulting Pulmonary and Critical Care Medicine 11/02/19 Amrit Del Valle MD [facility] [address] [place] [phone] Consulting Infectious Diseases 11/02/19 Wilber Maxwell MD [address] [address] Consulting Hematology/Oncology 11/02/19 Yamilka Mosley MD [address] [place] [address] Consulting Pulmonary Disease 11/02/19 Epi Polanco MD [address] [facility] [address] [place] [address] Chief Procurement Officer Nephrology 05/29/23 Stefano Jacob Physician Radiation Oncology 01/10/20 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 Relationship Specialty Start Date End Date Robert Najma Salomon DO PCP - General 08/12/15 Osiris Gonzales LISW [address] [address] Child Guidance Counselor Oncology 09/05/19 Martell Waterman MD [address] [place] [address] Consulting Hematology/Oncology 09/13/19 Cristhian Romero MD, 224 [facility] 300 [place] [address] Consulting Radiology 09/13/19 Eber Antony MD 5001 [place] [address] Consulting Urology 09/13/19 Amee Escamilla ([facility]) [address] [place] [address] Consulting Hematology/Oncology 11/02/19 [place] [address] [facility] [address] [place] [address] Consulting Pulmonary and Critical Care Medicine 11/02/19 Amrit Del Valle MD [address] [place] [phone] Consulting Infectious Diseases 11/02/19 Wilber Maxwell MD [address] [address] Consulting Hematology/Oncology 11/02/19 Yamilka Mosley MD [address] [place] [address] Consulting Pulmonary Disease 11/02/19 Epi Polanco MD 7210 [facility] [address] [place] [address] Chief Procurement Officer Nephrology 05/29/23 Stefano James Physician Radiation Oncology 01/10/20 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 Relationship Specialty Start Date End Date Najma Bloom DO PCP - General 08/12/15 Osiris Gonzales LISW [address] [address] Child Guidance Counselor Oncology 09/05/19 Martell Waterman MD [address] [place] [address] Consulting Hematology/Oncology 09/13/19 Cristhian Romero MD, 224 [facility] [address] [place] [address] Consulting Radiology 09/13/19 Eber Antony MD 5001 [facility], [place] 58[address]31 Consulting Urology 09/13/19 Amee Escamilla (Fel) [address] [place], [place] [id number] Consulting Hematology/Oncology 11/02/19 [place] [address] [facility], [place] [address] [place] [address] Consulting Pulmonary and Critical Care Medicine 11/02/19 Amrit Del Valle MD [address] [place] [address] Consulting Infectious Diseases 11/02/19 Wilber Maxwell MD [address] [address] Consulting Hematology/Oncology 11/02/19 Yamilka Mosley MD [address] [place] [address] Consulting Pulmonary Disease 11/02/19 Epi Polanco MD [address] [facility] [address] [place] [address] Chief Procurement Officer Nephrology 05/29/23 Stefano James Physician Radiation Oncology 01/10/20 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 Relationship Specialty Start Date End Date Najma Bloom DO PCP - General 08/12/15 Osiris Gonzales LISW [address] [address] Child Guidance Counselor Oncology 09/05/19 Martell Waterman MD [address] [place] [address] Consulting Hematology/Oncology 09/13/19 Cristhian Romero MD, 224 [facility] [address] [place] [address] Consulting Radiology 09/13/19 Eber Antony MD [address] [place] [address] Consulting Urology 09/13/19 Amee Escamilla ([facility]) [address] [place] [address] Consulting Hematology/Oncology 11/02/19 [place] [address] [facility] [address] [place] [address] Consulting Pulmonary and Critical Care Medicine 11/02/19 Amrit Del Valel MD [facility] [address] [place] [phone] Consulting Infectious Diseases 11/02/19 Wilber Maxwell MD [address] [address] Consulting Hematology/Oncology 11/02/19 Yamilka Mosley MD [address] [place] [address] Consulting Pulmonary Disease 11/02/19 Epi Polanco MD [address] [facility] [address] [place] [address] Chief Procurement Officer Nephrology 05/29/23 Stefanonahomy James Physician Radiation Oncology 01/10/20 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 Relationship Specialty Start Date End Date Najma Bloom PCP - General 08/12/15 Osiris Gonzales LISW [address] [id number] Child Guidance Counselor Oncology 09/05/19 Martell Waterman MD [address] [place], [place] [id number] Consulting Hematology/Oncology 09/13/19 Cristhian Romero MD, MD 224 [facility] [address] [place] [address] Consulting Radiology 09/13/19 [place] [address] [place] [address] Consulting Urology 09/13/19 Amee Escamilla (Fel) [address] [place] [address] Consulting Hematology/Oncology 11/02/19 Omid Prabhakar MD [facility] [address] [place] [address] Consulting Pulmonary and Critical Care Medicine 11/02/19 Amrit Del Valle MD 3033 [facility] [address] [place] [phone] Consulting Infectious Diseases 11/02/19 Wilber Maxwell MD [address] [address] Consulting Hematology/Oncology 11/02/19 Yamilka Mosley MD [address] [place] [address] Consulting Pulmonary Disease 11/02/19 Epi Polanco MD [address] [facility] [address] [place] [address] Chief Procurement Officer Nephrology 05/29/23 Stefano James Physician Radiation Oncology 01/10/20 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 Relationship Specialty Start Date End Date Najma Bloom DO PCP - General 08/12/15 Osiris Gonzales LISW [address] [address] Child Guidance Counselor Oncology 09/05/19 Martell Waterman MD [address] [place] [address] Consulting Hematology/Oncology 09/13/19 Cristhian Romero MD, 224 [facility] 300 [place] [address] Consulting Radiology 09/13/19 Eber Antony MD [address] [place] [address] Consulting Urology 09/13/19 Amee Escamilla ([facility]) [address] [place] [address] Consulting Hematology/Oncology 11/02/19 Omid Prabhakar MD [address], [place] [address] [place] [address] Consulting Pulmonary and Critical Care Medicine 11/02/19 Amrit Del Valle MD [address] [place] [address] Consulting Infectious Diseases 11/02/19 Wilber Maxwell MD [address] [address] Consulting Hematology/Oncology 11/02/19 Yamilka Mosley MD [address] [place] [address] Consulting Pulmonary Disease 11/02/19 Epi Polanco MD 7255 [facility] [address] [place] [address] Chief Procurement Officer Nephrology 05/29/23 Stefano James Physician Radiation Oncology 01/10/20 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 Relationship Specialty Start Date End Date Najma Bloom DO PCP - General 08/12/15 Osiris Gonzales LISW [address] [address] Child Guidance Counselor Oncology 09/05/19 Martell Waterman MD [address] [place], [place] [phone] Consulting Hematology/Oncology 09/13/19 Cristhian Romero MD, 224 [facility] [address] [place] [address] Consulting Radiology 09/13/19 Eber Antony MD [address] [place] [address] Consulting Urology 09/13/19 Amee Escamilla (Fel) [address] [place] [address] Consulting Hematology/Oncology 11/02/19 Omid Prabhakar MD [facility], [place] [address] [place] [address] Consulting Pulmonary and Critical Care Medicine 11/02/19 Amrit Del Valle MD 3033 [facility] [address] [place] [phone] Consulting Infectious Diseases 11/02/19 Wilber Maxwell MD [address] [address] Consulting Hematology/Oncology 11/02/19 Yamilka Mosley MD [address] [place] [address] Consulting Pulmonary Disease 11/02/19 Epi Polanco MD 7255 [facility] [address] [place] [address] Chief Procurement Officer Nephrology 05/29/23 Stefano James Physician Radiation Oncology 01/10/20 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 Relationship Specialty Start Date End Date Sheets, Najma Salomon DO PCP - General 08/12/15 Osiris Gonzales LISW [address] [address] Child Guidance Counselor Oncology 09/05/19 Martell Waterman MD [address] [place] [address] Consulting Hematology/Oncology 09/13/19 Cristhian Romero MD, 224 [facility] [address] [place] [address] Consulting Radiology 09/13/19 Eber Antony MD [address] [place] [address] Consulting Urology 09/13/19 Amee Escamilla ([facility]) [address] [place] [address] Consulting Hematology/Oncology 11/02/19 Omid Prabhakar MD [facility] [address] [place] [address] Consulting Pulmonary and Critical Care Medicine 11/02/19 Amrit Del Valle MD 3033 [facility] [address] [place] [phone] Consulting Infectious Diseases 11/02/19 Wilber Maxwell MD [address] [address] Consulting Hematology/Oncology 11/02/19 Yamilka Mosley MD [address] [place] [address] Consulting Pulmonary Disease 11/02/19 Epi Polanco MD [address] [facility] [facility] [address] [place] [address] Chief Procurement Officer Nephrology 05/29/23 Stefano Jacob Physician Radiation Oncology 01/10/20 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 Relationship Specialty Start Date End Date Batool Bloommayela Salomon DO PCP - General 08/12/15 Osiris Gonzales LISW [address] [phone] Child Guidance Counselor Oncology 09/05/19 Martell Waterman MD [address] [place] [address] Consulting Hematology/Oncology 09/13/19 Cristhian Romero MD, 224 [facility] [address] [place] [address] Consulting Radiology 09/13/19 Eber Antony MD [address] [place] [address] Consulting Urology 09/13/19 Amee Escamilla ([facility]) [address] [place] [address] Consulting Hematology/Oncology 11/02/19 [place] [address] [facility] [address] [place] [address] Consulting Pulmonary and Critical Care Medicine 11/02/19 Amrit Del Valle MD 3033 [facility] [address] [place] [address] Consulting Infectious Diseases 11/02/19 Wilber Maxwell MD [address] [address] Consulting Hematology/Oncology 11/02/19 Yamilka Mosley MD [address] [place] [address] Consulting Pulmonary Disease 11/02/19 Epi Polanco MD [address] [facility] [address] [place] [address] Chief Procurement Officer Nephrology 05/29/23 Stefano James Physician Radiation Oncology 01/10/20 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 Relationship Specialty Start Date End Date Najma Bloom DO PCP - General 08/12/15 Osiris Gonzales LISW [address] [phone] Child Guidance Counselor Oncology 09/05/19 Martell Waterman MD [address] [place] [address] Consulting Hematology/Oncology 09/13/19 Cristhian Romero MD, 224 [facility] [address] [place] [address] Consulting Radiology 09/13/19 Eber Antony MD [address] [place], [place] [address] Consulting Urology 09/13/19 Amee Escamilla ([facility]) [address] [place] [address] Consulting Hematology/Oncology 11/02/19 Omid Prabhakar MD [facility] [address] [place] [address] Consulting Pulmonary and Critical Care Medicine 11/02/19 Amrit Del Valle MD [address] [place] [address] Consulting Infectious Diseases 11/02/19 Wilber Maxwell MD [address] [address] Consulting Hematology/Oncology 11/02/19 Yamilka Mosley MD [address] [place] [address] Consulting Pulmonary Disease 11/02/19 Epi Polanco MD 7255 [facility] [address] [place] [address] Chief Procurement Officer Nephrology 05/29/23 Stefano James Physician Radiation Oncology 01/10/20 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 Relationship Specialty Start Date End Date Najma Bloom DO PCP - General 08/12/15 Osiris Gonzales LISW [address] [phone] Child Guidance Counselor Oncology 09/05/19 Martell Waterman MD [address] [place] [address] Consulting Hematology/Oncology 09/13/19 Cristhian Romero MD, MD 224 [facility] 300 [place] [address] Consulting Radiology 09/13/19 Eber Antony MD [address] [place] [address] Consulting Urology 09/13/19 Amee Escamilla ([facility]) [address] [place] [address] Consulting Hematology/Oncology 11/02/19 [place] [address] [facility] [address] [place] [address] Consulting Pulmonary and Critical Care Medicine 11/02/19 Amrit Del Valle MD 3033 [facility] [address] [place] [phone] Consulting Infectious Diseases 11/02/19 Wilber Maxwell MD [address] [place] [address] Consulting Hematology/Oncology 11/02/19 Yamilka Mosley MD [address] [place] [address] Consulting Pulmonary Disease 11/02/19 Epi Polanco MD 7255 [facility] [address] [place] [address] Chief Procurement Officer Nephrology 05/29/23 Stefano James Physician Radiation Oncology 01/10/20 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 Relationship Specialty Start Date End Date Najma Bloom DO PCP - General 08/12/15 Osiris Gonzales LISW [address] [address] Child Guidance Counselor Oncology 09/05/19 Martell Waterman MD [address] [place] [address] Consulting Hematology/Oncology 09/13/19 Cristhian Romero MD, 224 [facility] [address] [place] [address] Consulting Radiology 09/13/19 [place] [address] [place] [address] Consulting Urology 09/13/19 Amee Escamilla (Fel) [address] [place] [address] Consulting Hematology/Oncology 11/02/19 [place] [address] [facility] [address] [place] [address] Consulting Pulmonary and Critical Care Medicine 11/02/19 Amrit Del Valle MD [facility] [address] [place] [phone] Consulting Infectious Diseases 11/02/19 Wilber Maxwell MD [address] [address] Consulting Hematology/Oncology 11/02/19 Yamilka Mosley MD [address] [place] [address] Consulting Pulmonary Disease 11/02/19 Epi Polanco MD [address] [facility] [address] [place] [address] Chief Procurement Officer Nephrology 05/29/23 Stefano Jacob Physician Radiation Oncology 01/10/20 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 Relationship Specialty Start Date End Date Robert, Najma Salomon DO PCP - General 08/12/15 Osiris Gonzales LISW [address] [address] Child Guidance Counselor Oncology 09/05/19 Martell Waterman MD [address] [place] [address] Consulting Hematology/Oncology 09/13/19 Cristhian Romero MD, 224 [facility] [address] [place] [address] Consulting Radiology 09/13/19 Eber Antony MD [address] [place] [address] Consulting Urology 09/13/19 Amee Escamilla (Fel) [address] [place] [address] Consulting Hematology/Oncology 11/02/19 [place] [address] [facility] [address] [place] [address] Consulting Pulmonary and Critical Care Medicine 11/02/19 Amrit Del Valle MD [address] [facility] [place] [phone] Consulting Infectious Diseases 11/02/19 Wilber Maxwell MD [address] [address] Consulting Hematology/Oncology 11/02/19 Yamilka Mosley MD [address] [place] [address] Consulting Pulmonary Disease 11/02/19 Epi Polanco MD [address] [place] [address]80[address] [place] [address] Chief Procurement Officer Nephrology 05/29/23 Stefano James Physician Radiation Oncology 01/10/20 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 Relationship Specialty Start Date End Date Najma Bloom DO PCP - General 08/12/15 Osiris Gonzales LISW [address] [address] Child Guidance Counselor Oncology 09/05/19 Martell Waterman MD [address] [place] [address] Consulting Hematology/Oncology 09/13/19 Cristhian Romero MD, 224 [facility] 300 [place] [address] Consulting Radiology 09/13/19 Eber Antony MD 5001 [facility] [place] [address] Consulting Urology 09/13/19 Amee Escamilla (Fel) [address] [place] [address] Consulting Hematology/Oncology 11/02/19 [place] [address] [facility], [facility] [address] [place] [address] Consulting Pulmonary and Critical Care Medicine 11/02/19 Amrit Del Valle MD [address] [place] [address] Consulting Infectious Diseases 11/02/19 Wilber Maxwell MD [address] [address] Consulting Hematology/Oncology 11/02/19 Yamilka Mosley MD [address] [place] [address] Consulting Pulmonary Disease 11/02/19 Epi Polanco MD [address] [facility] [address] [place] [address] Chief Procurement Officer Nephrology 05/29/23 Osiris Cartwright, microwave technician Branch Service Associate 05/20/24 Jigna Griffiths [facility]itional [facility] Pharmacist Pharmacy 05/20/24 06/20/24 Stefano James Physician Radiation Oncology 01/10/20 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 Relationship Specialty Start Date End Date Sheets, Najma Salomon DO PCP - General 08/12/15 Osiris Gonzales LISW [address] [address] Child Guidance Counselor Oncology 09/05/19 Martell Waterman MD [address] [place] [address] Consulting Hematology/Oncology 09/13/19 Cristhian Romero MD, [address] [address] Consulting Radiology 09/13/19 [place] [address] [place] [address] Consulting Urology 09/13/19 Amee Escamilla ([facility]) [address] [place], [place] [address] Consulting Hematology/Oncology 11/02/19 [place] [address] [address] Consulting Pulmonary and Critical Care Medicine 11/02/19 Amrit Del Valle MD 3033 [facility] [address] [place] [phone] Consulting Infectious Diseases 11/02/19 Wilber Maxwell MD [address] [address] Consulting Hematology/Oncology 11/02/19 Yamilka Mosely MD [address] [place] [address] Consulting Pulmonary Disease 11/02/19 Epi Polanco MD 7255 [facility] [address] [place] [address] Chief Procurement Officer Nephrology 05/29/23 Osiris Cartwright, microwave technician Branch Service Associate 05/20/24 Jigna Griffiths [facility] Pharmacist Pharmacy 05/20/24 06/20/24 Stefano Jacob Physician Radiation Oncology 01/10/20 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 Relationship Specialty Start Date End Date Robert, Najma Salomon DO PCP - General 08/12/15 Osiris Gonzales LISW [address] [address] Child Guidance Counselor Oncology 09/05/19 Martell Waterman MD [address] [place] [address] Consulting Hematology/Oncology 09/13/19 Cristhian Romero MD, 224 [facility] [address] [place] [address] Consulting Radiology 09/13/19 Eber Antony MD [address] [place] [address] Consulting Urology 09/13/19 Amee Escamilla (Fel) [address] [place] [address] Consulting Hematology/Oncology 11/02/19 [place] [address] [facility] [address] [place] [address] Consulting Pulmonary and Critical Care Medicine 11/02/19 Amrit Del Valle MD [address] [facility] [place] [phone] Consulting Infectious Diseases 11/02/19 Wilber Maxwell MD [address] [address] Consulting Hematology/Oncology 11/02/19 Yamilka Mosley MD [address] [place] [address] Consulting Pulmonary Disease 11/02/19 Epi Polanco MD [address] [address] Chief Procurement Officer Nephrology 05/29/23 Osiris Cartwright, microwave technician Branch Service Associate 05/20/24 06/18/24 [facility] Pharmacy 05/20/24 06/20/24 Stefano James Physician Radiation Oncology 01/10/20 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 Relationship Specialty Start Date End Date Najma Bloom DO PCP - General 08/12/15 Osiris Gonzales LISW [address] [address] Child Guidance Counselor Oncology 09/05/19 Martell Waterman MD [address] [place] [address] Consulting Hematology/Oncology 09/13/19 Cristhian Romero MD, MD [address] [facility] [address] [place] [address] Consulting Radiology 09/13/19 Eber Antony MD [address] [place] [address] Consulting Urology 09/13/19 Amee Escamilla (Fel) [address] [place] [address] Consulting Hematology/Oncology 11/02/19 Omid Prabhakar MD [facility], [facility] [address] [place] [address] Consulting Pulmonary and Critical Care Medicine 11/02/19 Amrit Del Valle MD 3033 [facility] [address] [place] [phone] Consulting Infectious Diseases 11/02/19 Wilber Maxwell MD [address] [address] Consulting Hematology/Oncology 11/02/19 Yamilka Mosley MD [address] [place] [address] Consulting Pulmonary Disease 11/02/19 Epi Polanco MD 7255 [facility] [address] [place] [address] Chief Procurement Officer Nephrology 05/29/23 Osiris Cartwright, microwave technician Branch Service Associate 05/20/24 06/18/24 Jigna Griffiths, [facility] Pharmacist Pharmacy 05/20/24 06/20/24 Stefano James Physician Radiation Oncology 01/10/20 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 Relationship Specialty Start Date End Date Sheets, Najma Salomon DO PCP - General 08/12/15 Osiris Gonzales LISW [address] [address] Child Guidance Counselor Oncology 09/05/19 Martell Waterman MD [address] [place] [address] Consulting Hematology/Oncology 09/13/19 Cristhian Romero MD, 224 [facility] [address] [place] [address] Consulting Radiology 09/13/19 [place] [address] [place] [address] Consulting Urology 09/13/19 Amee Escamilla (Fel) [address] [place] [address] Consulting Hematology/Oncology 11/02/19 Omid Prabhakar MD [facility] [address] [place] [address] Consulting Pulmonary and Critical Care Medicine 11/02/19 Amrit Del Valle MD [facility] [address] [place] [phone] Consulting Infectious Diseases 11/02/19 Wilber Maxwell MD [address] [address] Consulting Hematology/Oncology 11/02/19 Yamilka Mosley MD [address] [place] [address] Consulting Pulmonary Disease 11/02/19 Epi Polanco MD [address] [address] Chief Procurement Officer Nephrology 05/29/23 [facility] Pharmacy 05/20/24 06/20/24 Stefano James Physician Radiation Oncology 01/10/20 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 Relationship Specialty Start Date End Date Najma Bloom DO PCP - General 08/12/15 Osiris Gonzales LISW [address] [address] Child Guidance Counselor Oncology 09/05/19 Epi Polanco MD [address] [address] Chief Procurement Officer Nephrology 05/29/23 [facility] Pharmacy 05/20/24 06/20/24 Najma Bloom DO [address] [place] [address] Home Care Provider Family Medicine 06/13/24 Herminio Carbajal APRN.MILL FEEDER [address] [place] [address] Referring Internal Medicine 06/13/24 Monie Perez, RN [address] [place] [address] Rn Wound Post Acute Care 06/13/24 Stefano James Physician Radiation Oncology 01/10/20 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 Relationship Specialty Start Date End Date Najma Bloom DO PCP - General 08/12/15 Osiris Gonzales LISW [address] [address] Child Guidance Counselor Oncology 09/05/19 Epi Polanco MD [address] [address] Chief Procurement Officer Nephrology 05/29/23 Jigna Griffiths [facility] Pharmacist Pharmacy 05/20/24 06/20/24 Najma Bloom DO [address] [place] [address] Home Care Provider Family Medicine 06/13/24 Herminio Carbajal APRN.MILL FEEDER [address] [place] [address] Referring Internal Medicine 06/13/24 Monie Perez, RN [address] [place] [address] Rn Wound Post Acute Care 06/13/24 Osiris Cartwright, YESSICA Primary Care Branch Service Associate 06/14/24 Stefano James Physician Radiation Oncology 01/10/20 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 Relationship Specialty Start Date End Date Najma Bloom DO PCP - General 08/12/15 Osiris Gonzales LISW [address] [address] Child Guidance Counselor Oncology 09/05/19 Epi Polanco MD [address] [address] Chief Procurement Officer Nephrology 05/29/23 Jigna Griffiths [facility] Pharmacist Pharmacy 05/20/24 06/20/24 Najma Bloom DO [address] [place] [address] Home Care Provider Family Medicine 06/13/24 Herminio Carbajal APRN.MILL FEEDER [address] [place], [place] [id number] Referring Internal Medicine 06/13/24 Monie Perez, RN [address] [place], [place] [address] Rn Wound Post Acute Care 06/13/24 Osiris Cartwright RN Primary Care Branch Service Associate 06/14/24 Stefano James Physician Radiation Oncology 01/10/20 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 Relationship Specialty Start Date End Date Najma Bloom DO PCP - General 08/12/15 Osiris Gonzales LISW [address] [address] Child Guidance Counselor Oncology 09/05/19 Epi Polanco MD [address] [address] Chief Procurement Officer Nephrology 05/29/23 Jigna Griffiths [facility] Pharmacist Pharmacy 05/20/24 06/20/24 Najma Bloom DO [address] [place] [address] Home Care Provider Family Medicine 06/13/24 Herminio Carbajal APRN.MILL FEEDER [address] [place] [address] Referring Internal Medicine 06/13/24 Monie Perez RN [address] [place] [address] Rn Wound Post Acute Care 06/13/24 Osiris Cartwright RN Primary Care Branch Service Associate 06/14/24 Stefano James Physician Radiation Oncology 01/10/20 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 Relationship Specialty Start Date End Date Najma Bloom DO PCP - General 08/12/15 Osiris Gonzales LISW [address] [address] Child Guidance Counselor Oncology 09/05/19 Epi Polanco MD [address] [address] Chief Procurement Officer Nephrology 05/29/23 Jigna Griffiths [facility] Pharmacist Pharmacy 05/20/24 06/20/24 Najma Bloom DO [address] [place] [address] Home Care Provider Family Medicine 06/13/24 Herminio Carbajal, JONO.MILL FEEDER [address] [place] [address] Referring Internal Medicine 06/13/24 Monie Perez RN [address] [place] [address] Rn Wound Post Acute Care 06/13/24 Osiris Cartwright, YESSICA Primary Care Branch Service Associate 06/14/24 Stefano James Physician Radiation Oncology 01/10/20 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 Relationship Specialty Start Date End Date Najma Bloom DO PCP - General 08/12/15 Osiris Gonzales LISW [address] [address] Child Guidance Counselor Oncology 09/05/19 Epi Polanco MD [address] [address] Chief Procurement Officer Nephrology 05/29/23 [facility] Pharmacy 05/20/24 06/20/24 Najma Bloom DO [address] [place] [address] Home Care Provider Family Medicine 06/13/24 Herminio Carbajal APRN.CNP [address] [place] [address] Referring Internal Medicine 06/13/24 Osiris Cartwright, YESSICA Primary Care Branch Service Associate 06/14/24 Stefano James Physician Radiation Oncology 01/10/20 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 Relationship Specialty Start Date End Date Najma Bloom DO PCP - General 08/12/15 Osiris Gonzales LISW [address] [address] Child Guidance Counselor Oncology 09/05/19 Epi Polanco MD [address] [address] Chief Procurement Officer Nephrology 05/29/23 Jigna Griffiths [facility] Transitional [facility] Pharmacist Pharmacy 05/20/24 06/20/24 Najma Bloom DO [address] [place] [address] Home Care Provider Family Medicine 06/13/24 Herminio Carbajal APRN.MILL FEEDER [address] [place] [address] Referring Internal Medicine 06/13/24 Osiris Cartwright, RN Primary Care Branch Service Associate 06/14/24 Stefano James Physician Radiation Oncology 01/10/20 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 Relationship Specialty Start Date End Date Najma Bloom DO PCP - General 08/12/15 Osiris Gonzales LISW [address] [address] Child Guidance Counselor Oncology 09/05/19 Epi Polanco MD [address] [address] Chief Procurement Officer Nephrology 05/29/23 Jigna Griffiths [facility] Transitional Care Pharmacist Pharmacy 05/20/24 06/20/24 Najma Bloom DO [address] [place] [address] Home Care Provider Family Medicine 06/13/24 Herminio Carbajal, WAREHOUSE UNLOADER.MILL FEEDER [address] [place] [address] Referring Internal Medicine 06/13/24 Osiris Cartwright RN Primary Care Branch Service Associate 06/14/24 Stefano James Physician Radiation Oncology 01/10/20 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 Relationship Specialty Start Date End Date Najma Bloom DO PCP - General 08/12/15 Osiris Gonzales LISW [address] [address] Child Guidance Counselor Oncology 09/05/19 Epi Polanco MD [address] [address] Chief Procurement Officer Nephrology 05/29/23 Najma Bloom DO [address] [place] [address] Home Care Provider Family Medicine 06/13/24 Herminio Carbajal, WAREHOUSE UNLOADER.MILL FEEDER [address] [place] [address] Referring Internal Medicine 06/13/24 Osiris Cartwright RN Primary Care Branch Service Associate 06/14/24 Stefano James Physician Radiation Oncology 01/10/20 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 Relationship Specialty Start Date End Date Najma Bloom DO PCP - General 08/12/15 Osiris Gonzales LISW [facility] [address] [address] Child Guidance Counselor Oncology 09/05/19 Epi Polanco MD [address] [address] Chief Procurement Officer Nephrology 05/29/23 Najma Bloom DO [address] [place] [address] Home Care Provider Family Medicine 06/13/24 Herminio Carbajal APRN.MILL FEEDER [address] [place] [address] Referring Internal Medicine 06/13/24 Osiris Cartwright, RN Primary Care Branch Service Associate 06/14/24 Stefano James Physician Radiation Oncology 01/10/20 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 Relationship Specialty Start Date End Date Najma Bloom DO PCP - General 08/12/15 Osiris Gonzales LISW [address] [address] Child Guidance Counselor Oncology 09/05/19 Epi Polanco MD [address] [address] Chief Procurement Officer Nephrology 05/29/23 Najma Bloom DO [address] [place] [address] Home Care Provider Family Medicine 06/13/24 Hermiino Carbajal, WAREHOUSE UNLOADER.MILL FEEDER [address] [place], [place] [address] Referring Internal Medicine 06/13/24 Osiris Cartwright, YESSICA Primary Care Branch Service Associate 06/14/24 Stefano James Physician Radiation Oncology 01/10/20 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 Relationship Specialty Start Date End Date Najma Bloom DO PCP - General 08/12/15 Osiris Gonzales LISW [address] [address] Child Guidance Counselor Oncology 09/05/19 Epi Polanco MD [address] [address] Chief Procurement Officer Nephrology 05/29/23 Najma Bloom DO [address] [place] [address] Home Care Provider Family Medicine 06/13/24 Herminio Carbajal, WAREHOUSE UNLOADER.MILL FEEDER [address] [place] [address] Referring Internal Medicine 06/13/24 Osiris Cartwright RN Primary Care Branch Service Associate 06/14/24 Stefano James Physician Radiation Oncology 01/10/20 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 Relationship Specialty Start Date End Date Najma Bloom DO PCP - General 08/12/15 Osiris Gonzales LISW [address] [address] Child Guidance Counselor Oncology 09/05/19 Epi Polanco MD [address] [address] Chief Procurement Officer Nephrology 05/29/23 Najma Bloom DO [address] [place], [place] [id number] Home Care Provider Family Medicine 06/13/24 Herminio Carbajal APRN.MILL FEEDER [address] [place], [place] [address] Referring Internal Medicine 06/13/24 Osiris Cartwright, RN Primary Care Branch Service Associate 06/14/24 Stefano James Physician Radiation Oncology 01/10/20 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 Relationship Specialty Start Date End Date Najma Bloom DO PCP - General 08/12/15 Osiris Gonzales LISW [address] [address] Child Guidance Counselor Oncology 09/05/19 Epi Polanco MD [address] [address] Chief Procurement Officer Nephrology 05/29/23 Najma Bloom DO [address] [place] [address] Home Care Provider Family Medicine 06/13/24 Herminio Carbajal, WAREHOUSE UNLOADER.MILL FEEDER [address] [place] [address] Referring Internal Medicine 06/13/24 Osiris Cartwright, RN Primary Care Branch Service Associate 06/14/24 07/15/24 Stefano James Physician Radiation Oncology 01/10/20 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 Relationship Specialty Start Date End Date Najma Bloom DO PCP - General 08/12/15 Osiris Gonzales LISW [address] [place] [address] Child Guidance Counselor Oncology 09/05/19 Epi Polanco MD [address] [address] Chief Procurement Officer Nephrology 05/29/23 Najma Bloom DO [address] [place] [address] Home Care Provider Family Medicine 06/13/24 Herminio Carbajal, WAREHOUSE UNLOADER.MILL FEEDER [address] [place] [address] Referring Internal Medicine 06/13/24 Stefano James Physician Radiation Oncology 01/10/20 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 Relationship Specialty Start Date End Date Najma Bloom DO PCP - General 08/12/15 Osiris Gonzales LISW [address] [place] [address], [place] [address] Child Guidance Counselor Oncology 09/05/19 Epi Polanco MD [address] [address] Chief Procurement Officer Nephrology 05/29/23 Najma Bloom DO [address] [place] [address] Home Care Provider Family Medicine 06/13/24 Herminio Carbajal, WAREHOUSE UNLOADER.MILL FEEDER [address] [place], [place] [address] Referring Internal Medicine 06/13/24 Stefano James Physician Radiation Oncology 01/10/20 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 Relationship Specialty Start Date End Date Najma Bloom DO PCP - General 08/12/15 Osiris Gonzales LISW [address] [address] Child Guidance Counselor Oncology 09/05/19 Epi Polanco MD [address] [address] Chief Procurement Officer Nephrology 05/29/23 Najma Bloom DO [address] [place] [address] Home Care Provider Family Medicine 06/13/24 Herminio Carbajal, WAREHOUSE UNLOADER.MILL FEEDER [address] [place], [place] [address] Referring Internal Medicine 06/13/24 Osiris Cartwright, RN Primary Care Branch Service Associate 06/14/24 07/15/24 Stefano James Physician Radiation Oncology 01/10/20 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 Relationship Specialty Start Date End Date Najma Bloom DO PCP - General 08/12/15 Osiris Gonzales LISW [address] [place] [address] Child Guidance Counselor Oncology 09/05/19 Epi Polanco MD [address] [address] Chief Procurement Officer Nephrology 05/29/23 Najma Bloom DO [address] [place] [address] Home Care Provider Family Medicine 06/13/24 Herminio Carbajal APRN.CNP [address] [place] [address] Referring Internal Medicine 06/13/24 Stefano James Physician Radiation Oncology 01/10/20 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 Relationship Specialty Start Date End Date Najma Bloom DO PCP - General 08/12/15 Osiris Gonzales LISW [address] [place] [address] Child Guidance Counselor Oncology 09/05/19 Epi Polanco MD [address] [address] Chief Procurement Officer Nephrology 05/29/23 Najma Bloom DO [address] [place], [place] [address] Home Care Provider Family Medicine 06/13/24 Herminio Carbajal, WAREHOUSE UNLOADER.MILL FEEDER [address] [place] [address] Referring Internal Medicine 06/13/24 Stefano James Physician Radiation Oncology 01/10/20 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 Relationship Specialty Start Date End Date Najma Bloom DO PCP - General 08/12/15 Osiris Gonzales, LUIS ALBERTO [address] [address] Child Guidance Counselor Oncology 09/05/19 Epi Polanco MD [address] [address] Chief Procurement Officer Nephrology 05/29/23 Najma Bloom DO [address] [place] [address] Home Care Provider Family Medicine 06/13/24 Herminio Carbajal, WAREHOUSE UNLOADER.MILL FEEDER [address] [place] [address] Referring Internal Medicine 06/13/24 Stefano James Physician Radiation Oncology 01/10/20 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 Relationship Specialty Start Date End Date Najma Bloom DO PCP - General 08/12/15 Osiris Gonzales LISW [address] [address] Child Guidance Counselor Oncology 09/05/19 Epi Polanco MD [address] [place] [address] [address] Chief Procurement Officer Nephrology 05/29/23 Najma Bloom DO [address] [place] [address] Home Care Provider Family Medicine 06/13/24 Herminio Carbajal, WAREHOUSE UNLOADER.MILL FEEDER [address] [place], [place] [address] Referring Internal Medicine 06/13/24 Stefano James Physician Radiation Oncology 01/10/20 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 Relationship Specialty Start Date End Date Najma Bloom DO PCP - General 08/12/15 Osiris Gonzales LISW [address] [address] Child Guidance Counselor Oncology 09/05/19 Epi Polanco MD [address] [address] Chief Procurement Officer Nephrology 05/29/23 Najma Bloom DO [address] [place] [address] Home Care Provider Family Medicine 06/13/24 Herminio Carbajal, WAREHOUSE UNLOADER.MILL FEEDER [address] [place] [address] Referring Internal Medicine 06/13/24 Stefano James Physician Radiation Oncology 01/10/20 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 Relationship Specialty Start Date End Date Njama Bloom DO PCP - General 08/12/15 Osiris Gonzales LISW [address] [place] [address] Child Guidance Counselor Oncology 09/05/19 Epi Ploanco MD [address] [address] Chief Procurement Officer Nephrology 05/29/23 Najma Bloom DO [address] [place] [address] Home Care Provider Family Medicine 06/13/24 Herminio Carbajal APRN.MILL FEEDER [address] [place] [address] Referring Internal Medicine 06/13/24 Stefano James Physician Radiation Oncology 01/10/20 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 Relationship Specialty Start Date End Date Najma Bloom DO PCP - General 08/12/15 Osiris Gonzales LISW [facility] [address] [address] Child Guidance Counselor Oncology 09/05/19 Epi Polanco MD [address] [address] Chief Procurement Officer Nephrology 05/29/23 Najma Bloom DO [address] [place], [place] [address] Home Care Provider Family Medicine 06/13/24 Herminio Carbajal, WAREHOUSE UNLOADER.MILL FEEDER [address] [place] [address] Referring Internal Medicine 06/13/24 Stefano James Physician Radiation Oncology 01/10/20 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 Relationship Specialty Start Date End Date Najma Bloom DO PCP - General 08/12/15 Osiris Gonzales, LUIS ALBERTO [address] [address] Child Guidance Counselor Oncology 09/05/19 Epi Polanco MD [address] [address] Chief Procurement Officer Nephrology 05/29/23 Najma Bloom DO [address] [place] [address] Home Care Provider Family Medicine 06/13/24 Herminio Carbajal, WAREHOUSE UNLOADER.MILL FEEDER [address] [place] [address] Referring Internal Medicine 06/13/24 Stefano James Physician Radiation Oncology 01/10/20 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 Relationship Specialty Start Date End Date Najma Bloom DO PCP - General 08/12/15 Osiris Gonzales LISW [address] [address] Child Guidance Counselor Oncology 09/05/19 Epi Polanco MD [address] [place] [address] [address] Chief Procurement Officer Nephrology 05/29/23 Najma Bloom DO [address] [place] [address] Home Care Provider Family Medicine 06/13/24 Herminio Carbajal APRN.MILL FEEDER [address] [place] [address] Referring Internal Medicine 06/13/24 Stefano James Physician Radiation Oncology 01/10/20 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 Relationship Specialty Start Date End Date Najma Bloom DO PCP - General 08/12/15 Osiris Gonzales LISW [address] [address] Child Guidance Counselor Oncology 09/05/19 Epi Polanco MD [address] [address] Chief Procurement Officer Nephrology 05/29/23 Najma Bloom DO [address] [place] [address] Home Care Provider Family Medicine 06/13/24 Herminio Carbajal APRN.MILL FEEDER [address] [place] [address] Referring Internal Medicine 06/13/24 Stefano James Physician Radiation Oncology 01/10/20 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 Relationship Specialty Start Date End Date Najma Bloom DO PCP - General 08/12/15 Osiris Gonzales [place] [address] [address] Child Guidance Counselor Oncology 09/05/19 Epi Polanco MD [address] [address] Chief Procurement Officer Nephrology 05/29/23 Najma Bloom DO [address] [place] [address] Home Care Provider Family Medicine 06/13/24 Herminio Carbajal APRN.MILL FEEDER [address] [place] [address] Referring Internal Medicine 06/13/24 Stefano James Physician Radiation Oncology 01/10/20 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 Relationship Specialty Start Date End Date Najma Bloom DO PCP - General 08/12/15 Osiris Gonzales [place] [address] [address] Child Guidance Counselor Oncology 09/05/19 Epi Polanco MD [address] [address] Chief Procurement Officer Nephrology 05/29/23 Najma Bloom DO [address] [place] [address] Home Care Provider Family Medicine 06/13/24 Herminio Carbajal, WAREHOUSE UNLOADER.MILL FEEDER [address] [place] [address] Referring Internal Medicine 06/13/24 Stefano James Physician Radiation Oncology 01/10/20 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 Relationship Specialty Start Date End Date Najma Bloom DO PCP - General 08/12/15 Osiris Gonzales, LUIS ALBERTO [address] [address] Child Guidance Counselor Oncology 09/05/19 Epi Polanco MD [address] [address] Chief Procurement Officer Nephrology 05/29/23 Najma Bloom DO [address] [place] [address] Home Care Provider Family Medicine 06/13/24 Herminio Carbajal, WAREHOUSE UNLOADER.MILL FEEDER [address] [place] [address] Referring Internal Medicine 06/13/24 Stefano James Physician Radiation Oncology 01/10/20 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 Relationship Specialty Start Date End Date Najma Bloom DO PCP - General 08/12/15 Osiris Gonzales LISW [facility] [address] [address] Child Guidance Counselor Oncology 09/05/19 Epi Polanco MD [address] [address] Chief Procurement Officer Nephrology 05/29/23 Najma Bloom DO [address] [place] [address] Home Care Provider Family Medicine 06/13/24 Herminio Carbajal, WAREHOUSE UNLOADER.MILL FEEDER [address] [place] [address] Referring Internal Medicine 06/13/24 Stefano James Physician Radiation Oncology 01/10/20 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 Relationship Specialty Start Date End Date Najma Bloom DO PCP - General 08/12/15 Osiris Gonzales LISW [facility] [address] [address] Child Guidance Counselor Oncology 09/05/19 Epi Polanco MD [address] [address] Chief Procurement Officer Nephrology 05/29/23 Najma Bloom DO [address] [place] [address] Home Care Provider Family Medicine 06/13/24 Herminio Carbajal APRN.MILL FEEDER [address] [place] [address] Referring Internal Medicine 06/13/24 Stefano James Physician Radiation Oncology 01/10/20 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 Relationship Specialty Start Date End Date Najma Bloom DO PCP - General 08/12/15 Osiris Gonzales [place] [address] [address] Child Guidance Counselor Oncology 09/05/19 Epi Polanco MD [address] [place] [address] [address] Chief Procurement Officer Nephrology 05/29/23 Najma Bloom DO [address] [place] [address] Home Care Provider Family Medicine 06/13/24 Herminio Carbajal, WAREHOUSE UNLOADER.MILL FEEDER [address] [place] [address] Referring Internal Medicine 06/13/24 Stefano James Physician Radiation Oncology 01/10/20 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 Relationship Specialty Start Date End Date Najma Bloom DO PCP - General 08/12/15 Osiris Gonzales [place] [address] [address] Child Guidance Counselor Oncology 09/05/19 Epi Polanco MD [address] [address] Chief Procurement Officer Nephrology 05/29/23 Najma Bloom DO [address] [place] [address] Home Care Provider Family Medicine 06/13/24 Herminio Carbajal, WAREHOUSE UNLOADER.MILL FEEDER [address] [place] [address] Referring Internal Medicine 06/13/24 Stefano James Physician Radiation Oncology 01/10/20 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 Relationship Specialty Start Date End Date Najma Bloom DO PCP - General 08/12/15 Osiris Gonzales LISW [address] [address] Child Guidance Counselor Oncology 09/05/19 Epi Polanco MD [address] [address] Chief Procurement Officer Nephrology 05/29/23 Najma Bloom DO [address] [place] [address] Home Care Provider Family Medicine 06/13/24 Herminio Carbajal, WAREHOUSE UNLOADER.MILL FEEDER [address] [place] [address] Referring Internal Medicine 06/13/24 Stefano James Physician Radiation Oncology 01/10/20 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 Relationship Specialty Start Date End Date Najma Bloom DO PCP - General 08/12/15 Osiris Gonzales LISW [facility] [address] [address] Child Guidance Counselor Oncology 09/05/19 Epi Polanco MD [address] [address] Chief Procurement Officer Nephrology 05/29/23 Najma Bloom DO [address] [place] [address] Home Care Provider Family Medicine 06/13/24 Herminio Carbajal, WAREHOUSE UNLOADER.MILL FEEDER [address] [place] [address] Referring Internal Medicine 06/13/24 Stefano James Physician Radiation Oncology 01/10/20 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 Relationship Specialty Start Date End Date Najma Bloom DO PCP - General 08/12/15 Osiris Gonzales LISW [facility] [address] [address] Child Guidance Counselor Oncology 09/05/19 Epi Polanco MD [address] [address] Chief Procurement Officer Nephrology 05/29/23 Najma Bloom DO [address] [place] [address] Home Care Provider Family Medicine 06/13/24 Herminio Carbajal, WAREHOUSE UNLOADER.MILL FEEDER [address] [place] [address] Referring Internal Medicine 06/13/24 Stefano James Physician Radiation Oncology 01/10/20 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 Relationship Specialty Start Date End Date Najma Bloom DO PCP - General 08/12/15 Osiris Gonzales LISW [facility] [address] [id number] Child Guidance Counselor Oncology 09/05/19 Epi Polanco MD [address] [address] Chief Procurement Officer Nephrology 05/29/23 Najma Bloom DO [address] [place] [address] Home Care Provider Family Medicine 06/13/24 Herminio Carbajal, WAREHOUSE UNLOADER.MILL FEEDER [address] [place] [address] Referring Internal Medicine 06/13/24 Stefano James Physician Radiation Oncology 01/10/20 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 Relationship Specialty Start Date End Date Najma Bloom DO PCP - General 08/12/15 Osiris Gonzales LISW [facility] E [address] [address] Child Guidance Counselor Oncology 09/05/19 Epi Polanco MD [address] [address] Chief Procurement Officer Nephrology 05/29/23 Najma Bloom DO [address] [place] [address] Home Care Provider Family Medicine 06/13/24 Herminio Carbajal, WAREHOUSE UNLOADER.MILL FEEDER [address] [place] [address] Referring Internal Medicine 06/13/24 Stefano James Physician Radiation Oncology 01/10/20 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 Relationship Specialty Start Date End Date Najma Bloom DO PCP - General 08/12/15 Osiris Gonzales LISW [address] [address] Child Guidance Counselor Oncology 09/05/19 Epi Polanco MD [address] [address] Chief Procurement Officer Nephrology 05/29/23 Najma Bloom DO [address] [place] [address] Home Care Provider Family Medicine 06/13/24 Herminio Carbajal, WAREHOUSE UNLOADER.MILL FEEDER [address] [place] [address] Referring Internal Medicine 06/13/24 Stefano James Physician Radiation Oncology 01/10/20 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 Relationship Specialty Start Date End Date Najma Bloom DO PCP - General 08/12/15 Osiris Gonzales LISW [address] [address] Child Guidance Counselor Oncology 09/05/19 Epi Polanco MD [address] [place] [address] [address] Chief Procurement Officer Nephrology 05/29/23 Najma Bloom DO [address] [place] [address] Home Care Provider Family Medicine 06/13/24 Herminio Carbajal APRN.MILL FEEDER [address] [place] [address] Referring Internal Medicine 06/13/24 Stefano James Physician Radiation Oncology 01/10/20 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 Relationship Specialty Start Date End Date Najma Bloom DO PCP - General 08/12/15 Osiris Gonzales LISW [address] [address] Child Guidance Counselor Oncology 09/05/19 Epi Polanco MD [address] [address] Chief Procurement Officer Nephrology 05/29/23 Najma Bloom DO [address] [place] [address] Home Care Provider Family Medicine 06/13/24 Herminio Carbajal APRN.JU [address] [place] [address] Referring Internal Medicine 06/13/24 Stefano James Physician Radiation Oncology 01/10/20 Team Status: Active Member Role/Relationship Status Dates Dr. Najma Bloom DO Primary Care Provider Active Team Status: Inactive Member Role/Relationship Status Dates Dr. Najma Bloom DO Primary Care Provider Active Start: June 02, 2025 End: June 02, 2025 Dr. Len Aquino MD Emergency Provider Active S tart: June 02, 2025 End: June 02, 2025 Goals (unrecognized section and content) Goals may be documented in a n alternate section FOR RECORDS PERTAINING TO PATIENTS WHO ARE OR HAVE BEEN ENROLLED IN A CHEMICAL DEPENDENCY/SUBSTANCEABUSE PROGRAM, SOME INFORMATION MAY BE OMITTED. This clinical summary was aggregated from multiple sources. Caution should be exercised in using it in the provision of clinical care. This summary normalizes information from multiple sources, and as a consequence, information in this document may materially change the coding, format and clinical context of patient data. In addition, data may be omitted in some cases. CLINICAL DECISIONS SHOULD BE BASED ON THE PRIMARY CLINICAL RECORDS. [employer] provides no warranty or guarantee of the accuracy or completeness of information in this document.
--- NOTE | 2025-06-04 16:06 | CT_ITS ---
PROCEDURE: ABDOMEN/PELVIS W IV CONT ONLY 06/04/2025 REASON FOR EXAM: HEMATURIA TECHNIQUE: ABDOMEN/PELVIS W IV CONT ONLY Coronal and Sagittal reconstruction series were provided. CONTRAST: Isovue 370 VOLUME: 100 mL One or more dose reduction techniques were used (e.g., Automated exposure control, adjustment of the mA and/or kV according to patient size, use of iterative reconstruction technique. RADIATION DOSE SUMMARY: DLP: 1600 mGycm COMPARISON: None. FINDINGS: Lung bases: Bibasilar atelectasis/scarring. Liver: Mild hepatomegaly with diffuse hepatic steatosis. The major portal veins are patent. No biliary ductal dilation. Gallbladder: No radiopaque stones within the gallbladder. Spleen: Normal in size. Pancreas: Unremarkable. Adrenals: Tiny left adrenal nodule, likely an adenoma. Kidneys: Severe asymmetric atrophy of the left kidney. Moderate left hydroureteronephrosis with asymmetric enhancement of the left urothelium. Mild bilateral perinephric stranding. Bladder: Distended and unremarkable. Reproductive Organs: Dystrophic calcifications within the prostate gland. Bowel: The bowel loops are nondilated. No ascites or free air. Prior appendectomy. Lymph nodes: Scattered, normal-sized retroperitoneal nodes. Vasculature: Moderate mixed plaque of the aortoiliac vessels. Bones: Thoracolumbar spondylosis. Bilateral hip arthrosis. CT/Abdomen/Pelvis W IV Cont ONLY IMPRESSION: 1. Asymmetric enhancement with moderate left hydroureteronephrosis, which is in determinate and may represent infectious etiology or urothelial neoplasm. Correlation with urinalysis recommended. Noncontrast and delayed phase imaging may be useful for further evaluation if neoplasm is considered likely. 2. Mild hepatomegaly and diffuse hepatic steatosis. Reading Location: [id number]
[2025-06-04 16:10] VITALS: BP 107/73; PULSE 83; RESP 18; TEMP 36.6; O2SAT 99
[2025-06-04] MEDS: 0.9% Normal Saline (1000mL) 1,000 ML 1000 ML IV (16:30)
[2025-06-04 16:33] LABS: Mucous, Urine 0 SEEN /hpf (<or=2+); Squamous Epithelial Cells - UA 0 SEEN /hpf (0-5)
[2025-06-04 16:38] LABS: Color, Urine Red (Yellow); Glucose, Dipstick 250 mg/dl (Normal); Ketone-Dipstick Negative (Negative); Leukocyte Esterase-Dipstick 500 /ul (Negative); Nitrite-Dipstick Negative (Negative); Occult Blood-Urine 250 /ul (Negative); Protein-Dipstick 500 mg/dl (Negative); Specific Gravity, Urine 1.015 (1.002-1.030); Urine Bilirubin Dipstick Negative (Negative)
[2025-06-04 16:39] LABS: Hematocrit 36.9 % (40-54); Hemoglobin 12.2 g/dL (13.0-16.5); Immature Granulocytes Count 0.020 X10^3/uL (0.0-0.0); Mean Corp Hgb Conc 33.1 g/dL (32-36); Mean Corpuscular Volume 80.4 fL (80-94); Mean Platelet Vol. 11.4 fl (6.2-12.0); NRBC Flagged by Analyzer 0 % (0-5); POSITIVE COUNT YES; Platelet Count 88 K/mm3 (150-450); RBC Distribution Width CV 13.5 % (11.6-14.6); RBC Distribution Width SD 39.1 fl (35.1-43.9); Red Blood Count 4.59 M/mm3 (4.6-6.2); White Blood Count 5.2 K/mm3 (4.4-11.0)
[2025-06-04 16:48] LABS: Partial Thromboplast Time 31.1 Seconds (24.1-36.2); Prothrombin Time (Protime)PT. 14.2 SECONDS (11.7-14.9)
[2025-06-04 17:00] VITALS: BP 110/78; PULSE 80; RESP 15; TEMP 36.6; O2SAT 97
[2025-06-04 17:05] LABS: Red Blood Cells-Urine > 100 SEEN /hpf (0-5)
[2025-06-04 17:14] LABS: Anion Gap 12 (5-15); BUN 49 mg/dL (4-19); BUN/Creat Ratio 29.2 RATIO (10-20); Calcium,Total 8.9 mg/dL (7.6-11.0); Carbon Dioxide 21.0 mmol/L (21.0-32.0); Chloride 103 mmol/L (98-108); Estimated Creatinine Clearance 63.81 ml/min (50-250); Glucose 289 mg/dL (70-99); Potassium 4.2 mmol/L (3.3-5.1)
[2025-06-04 18:00] VITALS: BP 94/71; PULSE 81; RESP 14; TEMP 36.6; O2SAT 98
[2025-06-04 18:10] VITALS: BP 94/71; PULSE 81; RESP 14; TEMP 36.6; O2SAT 98
== END 2025-06-04 18:33 | disposition home or self-care (01) ==
PROVIDERS: Emergency Provider Emergency Medicine; PCP Family Medicine; Visit Provider Emergency Medicine
DX: N30.01 Acute cystitis with hematuria (principal); E11.65 Type 2 diabetes mellitus with hyperglycemia; N13.6 Pyonephrosis; Z87.891 Personal history of nicotine dependence; R51.9 Headache, unspecified; M54.2 Cervicalgia; D64.9 Anemia, unspecified
CPT/HCPCS: 36591; 74177; 80048; 81001; 85025; 85610; 85730; 96360; 96361; 99284; Q9967; A4216